=== PATIENT | female | born 1965 | race Two or more races ===

== ENCOUNTER → 2020-08-12 09:06 | Outpatient (BNVA) | payer MEDICAID, SELFPAY | PROVIDERS: PCP Internal Medicine Geriatric Medicine; Referring Provider Internal Medicine Geriatric Medicine; Visit Provider Physician Assistant | DX: Z76.89 Persons encountering health services in other specified circumstances (principal) ==

== ENCOUNTER 2021-03-17 11:41 | Outpatient (REF) | payer MEDICAID, SELFPAY ==
[2021-03-19 13:16] LABS: H Pylori Breath Test NOT DETECTED (NOT DETECTED)
== END 2021-03-17 11:42 | disposition home or self-care (01) ==
LOC: HO.LNP 11:41
PROVIDERS: PCP Internal Medicine Geriatric Medicine; Referring Provider Internal Medicine Geriatric Medicine; Visit Provider Physician Assistant
DX: R12 Heartburn (principal)
CPT/HCPCS: 83013; 99212

== ENCOUNTER 2021-12-07 14:09 | Outpatient (REF) | payer MEDICAID, SELFPAY ==
--- NOTE | ~2021-12-07 | CT_ITS ---
EXAMINATION: CT HEAD WITHOUT CONTRAST CLINICAL INFORMATION: Migraine headaches without aura. COMPARISON: CT scan of the head 12/17/2018. TECHNIQUE: Contiguous axial imaging was performed from the skull base to vertex without intravenous administration of contrast. This CT examination was performed using dose optimization techniques as appropriate, variously including the following: *Automated exposure control *Adjustment of mA and/or kV according to patient size (this includes techniques or standardized protocols for targeted exams where dose is matched to indication/reason for exam; i.e. extremities or head) *Use of iterative reconstruction technique DLP: 750 mGy-cm FINDINGS: There are numerous foci of hypoattenuation within the periventricular white matter that most likely represent a chronic manifestation of small vessel ischemia. Sales-white matter differentiation is otherwise preserved and there is no evidence of acute territorial infarct. There is no intracranial mass effect or midline shift. No abnormal extra-axial collection. Lateral and third ventricles are normal. No hydrocephalus. The calvarium and skull base are intact. Mastoid air cells and middle ear cavities are well aerated. No active paranasal sinus disease. CT/CT head/brain wo con IMPRESSION: There are scattered chronic small vessel ischemic changes within the periventricular white matter. Otherwise unremarkable examination. No evidence acute territorial infarct or hemorrhage.
== END 2021-12-07 14:10 | disposition home or self-care (01) ==
LOC: HO.CT 14:09
PROVIDERS: PCP Internal Medicine Geriatric Medicine; Visit Provider Nurse Practitioner Family
DX: G43.001 Migraine without aura, not intractable, with status migrainosus (principal); I10 Essential (primary) hypertension; I16.0 Hypertensive urgency
CPT/HCPCS: 70450

== ENCOUNTER 2022-02-24 16:02 | Emergency (ER) | payer MEDICAID, SELFPAY ==
--- NOTE | ~2022-02-24 | CT_ITS ---
EXAMINATION: CT HEAD WITHOUT CONTRAST (STROKE PROTOCOL) CLINICAL INFORMATION: Stroke protocol. Right facial droop COMPARISON: Previous head CT scans most recent November 2021 TECHNIQUE: Contiguous axial imaging was performed from the skull base to vertex without intravenous administration of contrast. This CT examination was performed using dose optimization techniques as appropriate, variously including the following: *Automated exposure control *Adjustment of mA and/or kV according to patient size (this includes techniques or standardized protocols for targeted exams where dose is matched to indication/reason for exam; i.e. extremities or head) *Use of iterative reconstruction technique DLP: 742 mGy-cm FINDINGS: There is no evidence of an extra-axial collection. There is no evidence of intra-axial or extra-axial hemorrhage. The ventricles and extra-axial CSF spaces are appropriate. There is mild nonspecific periventricular white matter disease that appears unchanged. No mass, mass effect or acute infarct is seen. Review of bone windows is normal. No skull fracture is seen. Visualized paranasal sinuses, mastoid air cells and middle ears are clear. CT/CT head for stroke IMPRESSION: No acute findings. Mild nonspecific periventricular white matter disease similar to previous exams. This critical result was discussed with Nicolás Chan at 1623 hours on 02/24/2022. It was ascertained that the content and urgency of the report was understood at the time of direct communication.
--- NOTE | ~2022-02-24 | XR_ITS ---
EXAMINATION: XR CHEST CLINICAL INFORMATION: Change in mental status, rule out pneumonia. COMPARISON: 11/11/2019 chest radiographs. TECHNIQUE: Frontal view of the chest was obtained. FINDINGS: No significant abnormality is noted involving the heart, lungs, mediastinum, bony thorax or soft tissues. XR/XR chest 1V IMPRESSION: No acute cardiopulmonary process.
--- NOTE | 2022-02-24 16:07 | ECG_ITS ---
Test Reason : AMS Blood Pressure : / mmHG Vent. Rate : 079 BPM Atrial Rate : 079 BPM P-R Int : 192 ms QRS Dur : 100 ms QT Int : 450 ms P-R-T Axes : 044 007 027 degrees QTc Int : 516 ms Normal sinus rhythm Minimal voltage criteria for LVH, may be normal variant ( R in aVL ) Nonspecific ST abnormality Prolonged QT Abnormal ECG When compared with ECG of 31-DEC-2018 09:48, No significant change was found Referred By: Nicolás Chan Electronically Signed By:Antonio Foster
[2022-02-24 16:16] LABS: Prothrombin Time Whole Bld POC 10.9 sec (11.1-13.5); ~PT, ~INR - Anti Coag Clinic 0.9 (0.9-1.1)
[2022-02-24 16:17] LABS: Glucose, Whole Blood 90 mg/dL (60-115)
[2022-02-24 16:27] LABS: MANUAL DIFF FLAG NO
[2022-02-24 16:28] VITALS: BP 170/92; PULSE 79; RESP 20; O2SAT 98; BMI 27.3
[2022-02-24 16:30] LABS: Basophils Percent Auto 0.5 % (0-2); Eosinophils Absolute Auto 0.2 X10*3/uL (0.0-0.4); Eosinophils Percent Auto 2.3 % (0-4); Hematocrit 34.8 % (37.0-47.0); Hemoglobin 11.6 g/dl (12.0-16.0); Imm Gran Abs Auto 0.05 X10*3/uL (0.00-0.03); Imm Gran Pct Auto 0.8 % (0.0-0.4); Lymphocytes Percent Auto 45.9 % (20-40); Mean Corpuscular HGB Conc 33.3 g/dl (31.0-35.0); Mean Corpuscular Hemoglobin 28.3 pg (27.0-33.0); Mean Corpuscular Volume 84.9 fL (80.0-98.0); Monocytes Absolute Auto 0.6 X10*3/uL (0.1-1.2); Monocytes Percent Auto 8.6 % (2-11); Neutrophils Absolute Auto 2.8 x10*3/uL (2.0-8.3); Neutrophils Percent Auto 41.9 % (45-73); Platelet Count 404 X10*3/uL (160-400); Red Cell Distribution Width 13.4 % (11.0-16.0); White Blood Count 6.5 X10*3/uL (4.8-10.8)
[2022-02-24] MEDS: 0.9 % Sodium Chloride 1,000 ML 999 ML IV (16:35)
[2022-02-24 16:38] LABS: Partial Thromboplastin Time 30.5 SEC (24.1-38.0)
[2022-02-24] MEDS: Dextrose 50 % 25 GM/50 ML SYRINGE IVPUSH (16:38)
[2022-02-24 16:51] LABS: Troponin-I High Sensitivity 4.2 ng/L (<3.5-17.0)
[2022-02-24 16:57] LABS: Alanine Aminotransferase 8 U/L (0-31); Albumin Level 3.9 g/dL (3.5-5.0); Alkaline Phosphatase 163 U/L (39-117); Anion Gap 19 (12-20); Aspartate Amino Transferase 9 U/L (5-31); Bilirubin Total 0.3 mg/dL (0.0-1.0); Blood Urea Nitrogen 14 mg/dL (9-16); Calcium 8.7 mg/dL (8.4-10.2); Carbon Dioxide 22 mmol/L (22-29); Chloride 97 mmol/L (96-108); Creatinine Clr Calc Pharmacy 55.8; Estimated Glomerular Filt Rate 55; Glucose Random 97 mg/dL (60-115); Lipase 32 U/L (8-78); Potassium 2.9 mmol/L (3.3-5.1); Sodium 135 mmol/L (135-145); Total Protein 7.4 g/dL (6.5-8.0)
[2022-02-24 17:04] VITALS: TEMP 37.1
--- NOTE | 2022-02-24 17:08 | PC.NURSE ---
Pt showed significant improvement after half hour of dextrose admin. L sided facial droop now resolved, no continuation of obvious weakness.
[2022-02-24 17:23] LABS: COVID-19 Test Negative (Negative)
[2022-02-24 17:33] LABS: Lactic Acid 2.9 mmol/L (0.5-2.0)
[2022-02-24 17:51] VITALS: BP 144/94; PULSE 83; RESP 15; O2SAT 98
[2022-02-24 17:55] LABS: Glucose, Whole Blood 111 mg/dL (60-115)
--- NOTE | 2022-02-24 18:12 | ED.AMS ---
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 The patient was in her kitchen cooking at around noon and around 15:15 hours the patient was found to be confused. The patient also appeared to have a right facial droop and right arm weakness . The patient's daughter was concerned that the patient was having a stroke and called 911. When the paramedics arrived, the patient had garbled speech and had a right facial droop. The patient had generalized weakness with her right side being weaker than her left. The [facility] providers did check a point of care glucose en route and their glucometer registered ?low . The attempted to give the patient oral glucose and I believe that the patient took half 15 g dose. On presentation to the emergency department the patient was cool, diaphoretic, lethargic, had had generalized weakness. She did have a right facial droop. Point of care glucose in the emergency department was 90. She was given D50 IV with reversal of her weakness , her lethargy and her facial droop. According to the daughter the patient takes Trulicity 75 units on Saturdays and takes Lantus in the morning. The patient did take Lantus 10 units this morning. The patient states she had a very small breakfast and missed lunch. She denied fever, chills, rhinorrhea, sore throat, chest pain, shortness of breath, dyspnea on exertion, cough, abdominal pain, dysuria, urgency. She states that she has frequency often and this is secondary to her diabetes. Related Data Previous Rx's Medication Instructions Recorded omeprazole 20 mg capsule,delayed 20 mg PO DAILY #30 caps 08/12/20 release pantoprazole 20 mg tablet,delayed 20 mg PO QAM #30 tabs 09/21/21 release Allergies Allergy/AdvReac Type Severity Reaction Status Date / Time iron Allergy Mild UNKNOWN Verified 03/17/21 11:47 Iodinated Contrast Media Allergy Unknown UNKNOWN Verified 03/17/21 11:47 [IV Dye, Iodine Containing] iodine [IODINE] Allergy Unknown RASH Verified 03/17/21 11:47 SEAFOOD Allergy Unknown UNKNOWN Uncoded 05/28/20 17:23 Review of Systems Review of Systems: Yes all other systems are reviewed and are negative [facility] Past Medical History [facility] Narrative: Past medical history: Depression, diabetes, GERD. Social history: She denies tobacco, alcohol and drug use. Surgical History H/O colonoscopy History of esophagogastroduodenoscopy (EGD) Hx of cholecystectomy Social History Social History Household Members: Children Alcohol intake: never Patient Tobacco Use Status: Never used Tobacco Use of substances other than those prescribed or required for medical reasons: No Advance Directives: No Advance Directives Information Provided: Yes Current occupational status: disabled Physical Exam ED Vital Signs: Vital Signs - 24 hr 02/24/22 16:28 02/24/22 17:04 02/24/22 17:51 Temperature 98.7 F Pulse Rate 79 83 Respiratory Rate 20 15 Blood Pressure 170/92 H 144/94 H Pulse Oximetry 98 98 Oxygen Delivery Method Room Air Room Air BMI result Body Mass Index 27.3 Const Other: Patient is lethargic, she had garbled speech, she had a right facial droop and generalized weakness of all upper extremity HENMT Head: Yes normal to inspection, Yes normocephalic and Yes atraumatic Ears: external ears normal General nose exam: Normal external nose present Face and sinus: Yes other (Right facial droop) Mouth: Normal oral and palatal mucosa present Throat: Yes posterior oropharynx normal Eyes General: appearance normal, both eyes and all related structures Neck Neck: Yes normal visual inspection, Yes no lymphadenopathy, Yes trachea midline and Yes supple Chest Chest palpation & inspection: normal inspection of the chest and normal palpation of entire chest wall Resp Effort & Inspection: normal respiratory effort and able to speak in complete sentences Auscultation: clear to auscultation bilaterally Cardio Rate: regular rate Rhythm: regular rhythm Heart sounds: S1 normal heart sound present, S2 normal heart sound present and no murmurs GI Inspection: Yes normal to inspection Palpation (GI): Soft to palpation, nontender and no guarding Auscultation: normal bowel sounds General: Yes no CVA tenderness Back/Spine/Pelvis Back: no CVA tenderness Skin General skin exam: no rashes or lesions noted Neuro Other: The patient was initially altered, after close was corrected her cranial nerves 2-12 intact, strength was 5/5 symmetric, cerebellar exam was normal. Extrem General: Yes normal to inspection Course Course Course Narrative: 56-year-old female who presents emergency department for evaluation of altered level of consciousness, right facial droop and weakness. Patient was found to have a low glucose in route by the S crew and was given oral glucose. Her point of care glucose here in the emergency department was 90, she was lethargic, her speech garbled, she had a right facial droop but generalized weakness. She was given D50 25 g IV with complete resolution of her symptoms. CT scan of the patient's brain was unremarkable. Laboratory evaluation did reveal low potassium of 2.9 and a lactate of 2.9. COVID-19 was negative. Patient was given food to eat. She was observed in the emergency department for several hours and her point of care glucose remained above 100. Patient was given potassium chloride 40 mEq orally. Patient was advised to increase her food intake today and have a snack before she goes to bed. She was advised continue her outpatient regimen for insulin and advised to not miss any meals. MDM - Altered Mental Status Lab Data Result diagrams: 02/24/22 16:12 02/24/22 16:12 Labs: Lab Results 02/24/22 02/24/22 02/24/22 Range/Units 16:06 16:12 16:12 WBC 6.5 (4.8-10.8) X10*3/uL RBC 4.10 L (4.20-5.50) X10*6/uL Hgb 11.6 L (12.0-16.0) g/dl Hct 34.8 L (37.0-47.0) % MCV 84.9 (80.0-98.0) fL MCH 28.3 (27.0-33.0) pg MCHC 33.3 (31.0-35.0) g/dl RDW 13.4 (11.0-16.0) % Plt Count 404 H (160-400) X10*3/uL MPV 10.0 (9.4-12.3) fL Immature Gran % (Auto) 0.8 H (0.0-0.4) % Neut % (Auto) 41.9 L (45-73) % Lymph % (Auto) 45.9 H (20-40) % Archuleta % (Auto) 8.6 (2-11) % Eos % (Auto) 2.3 (0-4) % Baso % (Auto) 0.5 (0-2) % Lymph # (Auto) 3.0 (1.2-4.9) X10*3/uL [place]ule[place] # (Auto) 0.6 (0.1-1.2) X10*3/uL Eos # (Auto) 0.2 (0.0-0.4) X10*3/uL Baso # (Auto) 0.0 (0.0-0.2) X10*3/uL Abs Immat Gran (auto) 0.05 H (0.00-0.03) X10*3/uL Absolute Neuts (auto) 2.8 (2.0-8.3) x10*3/uL Absolute Nucleated RBC 0.000 (0.0-0.012) X10*3/uL Nucleated RBC % (auto) 0.0 (0.0-0.2) /100WBC PT (9.9-13.0) SEC Whole Blood PT (11.1-13.5) sec INR (0.9-1.1) Whole Blood INR (0.9-1.1) APTT (24.1-38.0) SEC Sodium 135 (135-145) mmol/L Potassium 2.9 L (3.3-5.1) mmol/L Chloride 97 (96-108) mmol/L Carbon Dioxide 22 (22-29) mmol/L Anion Gap 19 (12-20) BUN 14 (9-16) mg/dL Creatinine 1.03 (0.5-1.4) mg/dL Estim Creat Clear Calc 55.8 Estimated GFR 55 POC Glucose 90 (60-115) mg/dL Random Glucose 97 (60-115) mg/dL Lactic Acid (0.5-2.0) mmol/L Calcium 8.7 (8.4-10.2) mg/dL Total Bilirubin 0.3 (0.0-1.0) mg/dL AST 9 (5-31) U/L ALT 8 (0-31) U/L Alkaline Phosphatase 163 H (39-117) U/L Troponin I High Sens (<3.5-17.0) ng/L Total Protein 7.4 (6.5-8.0) g/dL Albumin 3.9 (3.5-5.0) g/dL Lipase 32 (8-78) U/L COVID-19 (SOLE) (Negative) COVID-19 Clin Com 02/24/22 02/24/22 02/24/22 Range/Units 16:12 16:12 16:12 WBC (4.8-10.8) X10*3/uL RBC (4.20-5.50) X10*6/uL Hgb (12.0-16.0) g/dl Hct (37.0-47.0) % MCV (80.0-98.0) fL MCH (27.0-33.0) pg MCHC (31.0-35.0) g/dl RDW (11.0-16.0) % Plt Count (160-400) X10*3/uL MPV (9.4-12.3) fL Immature Gran % (Auto) (0.0-0.4) % Neut % (Auto) (45-73) % Lymph % (Auto) (20-40) % Archuleta % (Auto) (2-11) % Eos % (Auto) (0-4) % Baso % (Auto) (0-2) % Lymph # (Auto) (1.2-4.9) X10*3/uL [place]ule[place] # (Auto) (0.1-1.2) X10*3/uL Eos # (Auto) (0.0-0.4) X10*3/uL Baso # (Auto) (0.0-0.2) X10*3/uL Abs Immat Gran (auto) (0.00-0.03) X10*3/uL Absolute Neuts (auto) (2.0-8.3) x10*3/uL Absolute Nucleated RBC (0.0-0.012) X10*3/uL Nucleated RBC % (auto) (0.0-0.2) /100WBC PT 11.0 (9.9-13.0) SEC Whole Blood PT 10.9 L (11.1-13.5) sec INR 1.0 (0.9-1.1) Whole Blood INR 0.9 (0.9-1.1) APTT 30.5 (24.1-38.0) SEC Sodium (135-145) mmol/L Potassium (3.3-5.1) mmol/L Chloride (96-108) mmol/L Carbon Dioxide (22-29) mmol/L Anion Gap (12-20) BUN (9-16) mg/dL Creatinine (0.5-1.4) mg/dL Estim Creat Clear Calc Estimated GFR POC Glucose (60-115) mg/dL Random Glucose (60-115) mg/dL Lactic Acid (0.5-2.0) mmol/L Calcium (8.4-10.2) mg/dL Total Bilirubin (0.0-1.0) mg/dL AST (5-31) U/L ALT (0-31) U/L Alkaline Phosphatase (39-117) U/L Troponin I High Sens 4.2 (<3.5-17.0) ng/L Total Protein (6.5-8.0) g/dL Albumin (3.5-5.0) g/dL Lipase (8-78) U/L COVID-19 (SOLE) (Negative) COVID-19 Clin Com 02/24/22 02/24/22 02/24/22 Range/Units 17:00 17:00 17:50 WBC (4.8-10.8) X10*3/uL RBC (4.20-5.50) X10*6/uL Hgb (12.0-16.0) g/dl Hct (37.0-47.0) % MCV (80.0-98.0) fL MCH (27.0-33.0) pg MCHC (31.0-35.0) g/dl RDW (11.0-16.0) % Plt Count (160-400) X10*3/uL MPV (9.4-12.3) fL Immature Gran % (Auto) (0.0-0.4) % Neut % (Auto) (45-73) % Lymph % (Auto) (20-40) % Archuleta % (Auto) (2-11) % Eos % (Auto) (0-4) % Baso % (Auto) (0-2) % Lymph # (Auto) (1.2-4.9) X10*3/uL Archule[place] # (Auto) (0.1-1.2) X10*3/uL Eos # (Auto) (0.0-0.4) X10*3/uL Baso # (Auto) (0.0-0.2) X10*3/uL Abs Immat Gran (auto) (0.00-0.03) X10*3/uL Absolute Neuts (auto) (2.0-8.3) x10*3/uL Absolute Nucleated RBC (0.0-0.012) X10*3/uL Nucleated RBC % (auto) (0.0-0.2) /100WBC PT (9.9-13.0) SEC Whole Blood PT (11.1-13.5) sec INR (0.9-1.1) Whole Blood INR (0.9-1.1) APTT (24.1-38.0) SEC Sodium (135-145) mmol/L Potassium (3.3-5.1) mmol/L Chloride (96-108) mmol/L Carbon Dioxide (22-29) mmol/L Anion Gap (12-20) BUN (9-16) mg/dL Creatinine (0.5-1.4) mg/dL Estim Creat Clear Calc Estimated GFR POC Glucose 111 (60-115) mg/dL Random Glucose (60-115) mg/dL Lactic Acid 2.9 H* (0.5-2.0) mmol/L Calcium (8.4-10.2) mg/dL Total Bilirubin (0.0-1.0) mg/dL AST (5-31) U/L ALT (0-31) U/L Alkaline Phosphatase (39-117) U/L Troponin I High Sens (<3.5-17.0) ng/L Total Protein (6.5-8.0) g/dL Albumin (3.5-5.0) g/dL Lipase (8-78) U/L COVID-19 (SOLE) Negative (Negative) COVID-19 Clin Com See Note Discharge Plan Discharge Clinical Impression: Acute metabolic encephalopathy due to hypoglycemia, Acute hypokalemia Patient Disposition: Home, Self-Care Instructions: Potassium Content of Foods List (ED), Hypokalemia (ED), Hypoglycemia in a Person with Diabetes (ED) Additional Instructions: Your blood work did reveal low potassium. You should eat some high potassium foods over the next several days. When you get home tonight eat a big meal and make sure you eat some food before you go to bed. You can restart your insulin tomorrow but you should check your sugar throughout the day. Follow-up with your doctor in 2 days. Please return to the emergency department if your symptoms get worse or if you develop any symptoms that are concerning to you. Prescriptions: No Action pantoprazole 20 mg tablet,delayed release (DR/EC) 20 mg PO QAM Qty: 30 6RF omeprazole 20 mg capsule,delayed release(DR/EC) 20 mg PO DAILY Qty: 30 5RF Print Language: Malawian
[2022-02-24] MEDS: Potassium Chloride Packet 20 MEQ PACKET 40 MEQ PO (19:03)
[2022-02-24 19:05] LABS: Reflex Lactate? Lactic Acid Added
== END 2022-02-24 19:11 | disposition home or self-care (01) ==
PROVIDERS: Emergency Provider Emergency Medicine Emergency Medical Services; PCP Internal Medicine Geriatric Medicine
DX: E11.649 Type 2 diabetes mellitus with hypoglycemia without coma (principal); G93.41 Metabolic encephalopathy; E87.6 Hypokalemia; Z20.822 Contact with and (suspected) exposure to COVID-19
CPT/HCPCS: 36415; 70450; 71045; 80053; 82947; 83605; 83690; 84484; 85025; 85610; 85730; 87040; 87635; 93005; 96361; 96374; 99284; 99285

== ENCOUNTER → 2022-03-07 13:38 | Outpatient (BNVA) | payer MEDICAID, SELFPAY | PROVIDERS: PCP Internal Medicine Geriatric Medicine; Visit Provider Physician Assistant | DX: R13.10 Dysphagia, unspecified (principal); R12 Heartburn; H92.03 Otalgia, bilateral | CPT/HCPCS: 99212 ==

== ENCOUNTER → 2022-04-21 13:47 | Outpatient (BNVA) | payer MEDICAID, SELFPAY | PROVIDERS: PCP Internal Medicine Geriatric Medicine; Referring Provider Internal Medicine Geriatric Medicine; Visit Provider Physician Assistant | DX: R11.2 Nausea with vomiting, unspecified (principal); R13.10 Dysphagia, unspecified | CPT/HCPCS: 99212 ==

== ENCOUNTER 2022-05-12 10:46 | Day surgery (SDC) | payer MEDICAID, SELFPAY ==
[2022-05-06 11:38] VITALS: BMI 25.5
--- NOTE | 2022-05-11 11:00 | HO.ANESPROP2 ---
Documented by User: Tayler Graves NP 05/11/22 11:06 HPI - Anesthesia Eval Consult details Narrative: 57yo F for Upper Endoscopy [facility] ED 02/2022 for ? stroke, but found to have low blood sugar. Incidental low K. Will recheck DOS. PMFSH Active Problems Active Problems: All Active Problems (Updated 05/06/22 @ 11:28 by Rocio Benitez, RN) Diabetes (Acute) Odynophagia (Acute) Ear ache (Acute) Odynophagia (Acute) Nausea & vomiting (Acute) Depression (Acute) Heartburn (Acute) Past Medical History Medical History Anxiety disorder Asthma Depression Diabetes Dysphagia Elevated cholesterol GERD (gastroesophageal reflux disease) Heartburn HTN (hypertension) Migraines On beta jordyn at home Smoker Surgical History Surgical History H/O colonoscopy History of esophagogastroduodenoscopy (EGD) History of tubal ligation Hx of cholecystectomy Hx of left knee surgery Social History Social History Household Members: Children Alcohol intake: never Patient Tobacco Use Status: Current everyday Tobacco user Tobacco use type: Cigarette Cigarettes Per Day: 6 Patient Interested in Nicotine Replacement: No Patient Given Instructions on How to Stop Smoking: Yes Date Education Initiated: 05/12/22 Second Hand Smoke Exposure: Yes Use of substances other than those prescribed or required for medical reasons: No Are you DNR?: No Advance Directives: No Advance Directives Information Provided: Yes Current occupational status: disabled Meds Allergies Allergy/AdvReac Type Severity Reaction Status Date / Time iron Allergy Mild UNKNOWN Verified 05/06/22 11:06 Iodinated Contrast Media Allergy Unknown UNKNOWN Verified 05/06/22 11:06 [IV Dye, Iodine Containing] iodine [IODINE] Allergy Unknown RASH Verified 05/06/22 11:06 SEAFOOD Allergy Unknown UNKNOWN Uncoded 05/06/22 11:06 Home Medications Medication Instructions Recorded Confirmed Last Taken Type alcohol swabs (Alcohol Prep Pads) 0 pad topical TID 04/21/22 05/06/22 Unknown History amlodipine 5 mg tablet 5 mg PO QPM 04/21/22 05/06/22 Unknown History aspirin 81 mg tablet,delayed 81 mg PO QAM 04/21/22 05/06/22 Unknown History release atorvastatin 20 mg tablet 20 mg PO BEDTIME 04/21/22 05/06/22 Unknown History benztropine 0.5 mg tablet 0.5 mg PO BID 04/21/22 05/06/22 Unknown History bupropion HCl 150 mg 24 hr tablet, 150 mg PO QAM 04/21/22 05/06/22 Unknown History extended release dulaglutide 1.5 mg/0.5 mL mg subcut QWEEK 04/21/22 04/21/22 Unknown History subcutaneous pen injector (Trulicity) fluoxetine 10 mg capsule 10 mg PO QAM 04/21/22 05/06/22 Unknown History fluticasone propionate 50 2 spray intranasal DAILY 04/21/22 05/06/22 Unknown History mcg/actuation nasal spray,suspension insulin syringe-needle U-100 0.5 #10 ea 04/21/22 04/21/22 Unknown History mL 30 gauge x 1/2 (UltiCare) losartan 50 mg tablet 50 mg PO QPM 04/21/22 05/06/22 Unknown History metformin 1,000 mg tablet 1,000 mg PO BID 04/21/22 05/06/22 Unknown History metoprolol succinate 50 mg 50 mg PO QAM 04/21/22 05/06/22 Unknown History tablet,extended release 24 hr mirtazapine 7.5 mg tablet 7.5 mg PO BEDTIME 04/21/22 05/06/22 Unknown History prazosin 2 mg capsule 2 mg PO BID 04/21/22 05/06/22 Unknown History ergocalciferol (vitamin D2) 1,250 1 cap PO QWEEK 05/06/22 05/06/22 Unknown History mcg (50,000 unit) capsule haloperidol 5 mg tablet 1 tab PO BID 05/06/22 05/06/22 Unknown History insulin glargine 100 unit/mL 10 unit subcut BEDTIME 05/06/22 05/06/22 Unknown History subcutaneous solution (Lantus U-100 Insulin) nicotine 14 mg/24 hr daily topical 05/06/22 Unknown History transdermal patch pantoprazole 20 mg tablet,delayed 20 mg PO DAILY 05/06/22 05/06/22 Unknown History release Exam Exam Date and Time: May 11, 2022 1100 Height,Weight and Vital Signs: Height 5 ft 4 in Weight 67.585 kg Pertinent Lab Results Pertinent Lab Results: Laboratory Tests 02/24/22 16:12 WBC 6.5 Hgb 11.6 L Hct 34.8 L Plt Count 404 H Laboratory Tests 02/24/22 16:12 BUN 14 Creatinine 1.03 Narrative Narrative: EKG 02/2022 Vent. Rate : 079 BPM ? ? Atrial Rate : 079 BPM ?? P-R Int : 192 ms? QRS Dur : 100 ms ? ? QT Int : 450 ms ? ? ? P-R-T Axes : 044 007 027 degrees ?? QTc Int : 516 ms ? Normal sinus rhythm Minimal voltage criteria for LVH, may be normal variant ( R in aVL ) Nonspecific ST abnormality Prolonged QT Abnormal ECG When compared with ECG of 31-DEC-2018 09:48, No significant change was found Assessment and Plan Assessment Anesthesia Assessment: Chart Reviewed Documented by User: Isaac Beckwith MD 05/12/22 13:34 PMF Past Medical History Medical History Anxiety disorder Asthma Depression Diabetes Dysphagia Elevated cholesterol GERD (gastroesophageal reflux disease) Heartburn HTN (hypertension) Migraines On beta jordyn at home Smoker Family History Family history of problems with anesthesia: No Surgical History Surgical History H/O colonoscopy History of esophagogastroduodenoscopy (EGD) History of tubal ligation Hx of cholecystectomy Hx of left knee surgery History of Problems with Anesthesia: No Social History Social History Household Members: Children Alcohol intake: never Patient Tobacco Use Status: Current everyday Tobacco user Tobacco use type: Cigarette Cigarettes Per Day: 6 Patient Interested in Nicotine Replacement: No Patient Given Instructions on How to Stop Smoking: Yes Date Education Initiated: 05/12/22 Second Hand Smoke Exposure: Yes Use of substances other than those prescribed or required for medical reasons: No Are you DNR?: No Advance Directives: No Advance Directives Information Provided: Yes Current occupational status: disabled Meds Allergies Allergy/AdvReac Type Severity Reaction Status Date / Time iron Allergy Mild UNKNOWN Verified 05/06/22 11:06 Iodinated Contrast Media Allergy Unknown UNKNOWN Verified 05/06/22 11:06 [IV Dye, Iodine Containing] iodine [IODINE] Allergy Unknown RASH Verified 05/06/22 11:06 SEAFOOD Allergy Unknown UNKNOWN Uncoded 05/06/22 11:06 Home Medications Medication Instructions Recorded Confirmed Last Taken Type alcohol swabs (Alcohol Prep Pads) 0 pad topical TID 04/21/22 05/06/22 Unknown History amlodipine 5 mg tablet 5 mg PO QPM 04/21/22 05/06/22 Unknown History aspirin 81 mg tablet,delayed 81 mg PO QAM 04/21/22 05/06/22 Unknown History release atorvastatin 20 mg tablet 20 mg PO BEDTIME 04/21/22 05/06/22 Unknown History benztropine 0.5 mg tablet 0.5 mg PO BID 04/21/22 05/06/22 Unknown History bupropion HCl 150 mg 24 hr tablet, 150 mg PO QAM 04/21/22 05/06/22 Unknown History extended release dulaglutide 1.5 mg/0.5 mL mg subcut QWEEK 04/21/22 04/21/22 Unknown History subcutaneous pen injector (Trulicity) fluoxetine 10 mg capsule 10 mg PO QAM 04/21/22 05/06/22 Unknown History fluticasone propionate 50 2 spray intranasal DAILY 04/21/22 05/06/22 Unknown History mcg/actuation nasal spray,suspension insulin syringe-needle U-100 0.5 #10 ea 04/21/22 04/21/22 Unknown History mL 30 gauge x 1/2 (UltiCare) losartan 50 mg tablet 50 mg PO QPM 04/21/22 05/06/22 Unknown History metformin 1,000 mg tablet 1,000 mg PO BID 04/21/22 05/06/22 Unknown History metoprolol succinate 50 mg 50 mg PO QAM 04/21/22 05/06/22 Unknown History tablet,extended release 24 hr mirtazapine 7.5 mg tablet 7.5 mg PO BEDTIME 04/21/22 05/06/22 Unknown History prazosin 2 mg capsule 2 mg PO BID 04/21/22 05/06/22 Unknown History ergocalciferol (vitamin D2) 1,250 1 cap PO QWEEK 05/06/22 05/06/22 Unknown History mcg (50,000 unit) capsule haloperidol 5 mg tablet 1 tab PO BID 05/06/22 05/06/22 Unknown History insulin glargine 100 unit/mL 10 unit subcut BEDTIME 05/06/22 05/06/22 Unknown History subcutaneous solution (Lantus U-100 Insulin) nicotine 14 mg/24 hr daily topical 05/06/22 Unknown History transdermal patch pantoprazole 20 mg tablet,delayed 20 mg PO DAILY 05/06/22 05/06/22 Unknown History release Exam Airway Mallampati Class: III TM Dist: >3cm Neck ROM: Full Denture: Upper Loose/Missing/Broken Teeth: Yes Assessment and Plan Assessment Anesthesia Assessment: Anesthesia Plan Discussed Final Anesthetic Review Family History of Problems with Anesthesia: No History of Problems with Anesthesia: No NPO: Yes ASA Class: III Final Preanesthetic Review: No Changes in Pt Med Stat, Meds/Allgs Chart Reviewed, Consent Obtained/Reviewed and Anes Risks/Benef Reviewed Patient Risk: Intermediate Procedure Risk: Low Anesthetic Plan Anesthetic Plan: MAC: Disposition: Standard PACU
[2022-05-12 11:14] VITALS: BP 114/73; PULSE 75; RESP 18; TEMP 36.2; O2SAT 95; BMI 25.0
[2022-05-12 11:25] VITALS: BMI 25.0
[2022-05-12 11:39] LABS: Anion Gap 18 (12-20); Carbon Dioxide 31 mmol/L (22-29); Chloride 93 mmol/L (96-108); Potassium 3.1 mmol/L (3.3-5.1); Sodium 139 mmol/L (135-145)
[2022-05-12] MEDS: Lactated Ringers 1,000 ML 100 ML IVCONT (11:44)
[2022-05-12 11:51] LABS: Glucose, Whole Blood 108 mg/dL (60-115)
--- NOTE | 2022-05-12 13:07 | MHC.SHP ---
Pre-Procedural Eval Section A Date of Service: 05/12/22 The History & Physical has been completed within 30 days and I have reviewed it.: Yes Section B Chief Complaint: Nausea with vomiting, Allergies: Allergies Allergy/AdvReac Type Severity Reaction Status Date / Time iron Allergy Mild UNKNOWN Verified 05/06/22 11:06 Iodinated Contrast Media Allergy Unknown UNKNOWN Verified 05/06/22 11:06 [IV Dye, Iodine Containing] iodine [IODINE] Allergy Unknown RASH Verified 05/06/22 11:06 SEAFOOD Allergy Unknown UNKNOWN Uncoded 05/06/22 11:06 Plan Diagnosis/Plan: Unchanged I have reviewed the history and physical and performed a pertinent physical examination on my patient. No changes have occurred unless specified.
--- NOTE | 2022-05-12 13:08 | W.PM.OPN ---
Operative Note Operative Note Date of Service: 05/12/22 Narrative: Procedure Date: Procedure: Esophagogastroduodenoscopy Endoscopist: Estella Wheeler MD Indication: Dysphagia Anesthesia Provider: Dr Isaac Beckwith Anesthesia Type: MAC ?? EGD Procedure:?? The procedure, indications, preparation and potential complications were reviewed with the patient, who indicated understanding and gave written informed consent to proceed. fire apparatus engineer assisted with the consent. A physical exam was performed. The endoscope was introduced through the mouth, and advanced to the second part of duodenum. The mucosa was carefully examined on slow withdrawal of the endoscope. The patient tolerated the procedure well. There were no immediate complications.? ? EGD Findings:?Esophagus:? Erythema and linear ulcerations without stigmata of recent bleeding were noted starting at 25 cm extending to the GEJ at 36 cm. The Z line was at 36 cm. Cold forceps biopsies were taken. ?Stomach:? Atrophic mucosa was noted in the cardia and fundus of the stomach. Erythema and congestion was noted in the antrum. Random gastric biopsies were taken to rule out H Pylori infection. ?Duodenum:? 1.5 cm sessile duodenal polyp was noted in the duodenal bulb. Cold forceps biopsies were taken. ? EGD Impressions:?Grade C esophagitis (biopsy) ?Atrophic gastritis (biopsy) ?Duodenal polyp (biopsy) ?? Recommendations:?Follow biopsy results. Our office will call or send a letter with results within 7-10 days. ?Increase pantoprazole to 40mg BID for at least 8 weeks. ?If H pylori +, patient will be prescribed eradication therapy followed by test of cure. ?Avoid NSAIDs. ?Above has been reviewed with the patient and her daughter. Educational hand outs were provided at discharge. ?
[2022-05-12 13:35] VITALS: BP 103/58; PULSE 84; RESP 18; TEMP 36.2; O2SAT 100
[2022-05-12 13:50] VITALS: BP 168/94; PULSE 80; RESP 14; TEMP 36.1; O2SAT 100
[2022-05-12 14:05] VITALS: BP 170/90; PULSE 80; RESP 14; O2SAT 99
[2022-05-12 14:20] VITALS: BP 166/87; PULSE 80; RESP 20; TEMP 36.1; O2SAT 99
== END 2022-05-12 15:17 ==
LOC: HO.SSS 10:46
PROVIDERS: Nurse Practitioner; PCP Internal Medicine Geriatric Medicine; Visit Provider Internal Medicine
PROC: 0DJ08ZZ Inspection of Upper Intestinal Tract, Via Natural or Artificial Opening Endoscopic (ICD-10-PCS; CPT 43235; principal; 2022-05-12 12:00)
DX: K29.40 Chronic atrophic gastritis without bleeding (principal); K31.7 Polyp of stomach and duodenum; K20.80 Other esophagitis without bleeding; K21.9 Gastro-esophageal reflux disease without esophagitis; F32.A Depression, unspecified; I10 Essential (primary) hypertension; J45.909 Unspecified asthma, uncomplicated; E11.9 Type 2 diabetes mellitus without complications; Z79.4 Long term (current) use of insulin; Z79.899 Other long term (current) drug therapy; Z79.51 Long term (current) use of inhaled steroids; Z79.82 Long term (current) use of aspirin; Z88.8 Allergy status to other drugs, medicaments and biological substances; Z91.041 Radiographic dye allergy status; F17.210 Nicotine dependence, cigarettes, uncomplicated
CPT/HCPCS: 43239; 36415; 80051; 82947; 88305; 88342

== ENCOUNTER → 2022-08-08 08:20 | Outpatient (BNVA) | payer MEDICAID, SELFPAY | PROVIDERS: PCP Internal Medicine Geriatric Medicine; Visit Provider Physician Assistant | DX: K20.90 Esophagitis, unspecified without bleeding (principal); R11.2 Nausea with vomiting, unspecified; R68.81 Early satiety; E11.9 Type 2 diabetes mellitus without complications; R12 Heartburn | CPT/HCPCS: 99212 ==

== ENCOUNTER → 2022-08-29 09:47 | Outpatient (BNVA) | payer MEDICAID, SELFPAY | PROVIDERS: PCP Internal Medicine Geriatric Medicine; Visit Provider Physician Assistant | DX: R13.10 Dysphagia, unspecified (principal); R68.81 Early satiety | CPT/HCPCS: 99212 ==

== ENCOUNTER 2022-09-01 11:25 | Day surgery (SDC) | payer MEDICAID, SELFPAY ==
--- NOTE | 2022-08-31 13:29 | HO.ANESPROP2 ---
Documented by User: Tayler Graves NP 08/31/22 13:30 HPI - Anesthesia Eval Consult details Narrative: 57yo F for Upper Endoscopy and Colonoscopy s/p EGD 05/2022 with MAC [facility] Active Problems Active Problems: All Active Problems (Updated 08/29/22 @ 12:18 by Lucy Frias PA-C) Early satiety (Acute) Esophagitis (Acute) Diabetes (Acute) Odynophagia (Acute) Ear ache (Acute) Odynophagia (Acute) Nausea & vomiting (Acute) Depression (Acute) Heartburn (Acute) Past Medical History Medical History Anxiety disorder Asthma Depression Diabetes Dysphagia Elevated cholesterol GERD (gastroesophageal reflux disease) Heartburn HTN (hypertension) Migraines On beta jordyn at home Smoker Family History Family history of problems with anesthesia: No Surgical History Surgical History H/O colonoscopy History of esophagogastroduodenoscopy (EGD) History of tubal ligation Hx of cholecystectomy Hx of left knee surgery History of Problems with Anesthesia: No Social History Social History Household Members: Children Alcohol intake: never Patient Tobacco Use Status: Current everyday Tobacco user Tobacco use type: Cigarette Cigarettes Per Day: 8 Second Hand Smoke Exposure: Yes Use of substances other than those prescribed or required for medical reasons: No Are you DNR?: No Advance Directives: No Advance Directives Information Provided: Yes Current occupational status: disabled Meds Allergies Allergy/AdvReac Type Severity Reaction Status Date / Time iron Allergy Mild UNKNOWN Verified 08/29/22 09:49 Iodinated Contrast Media Allergy Unknown UNKNOWN Verified 08/29/22 09:49 [IV Dye, Iodine Containing] iodine [IODINE] Allergy Unknown RASH Verified 08/29/22 09:49 SEAFOOD Allergy Unknown UNKNOWN Uncoded 05/06/22 11:06 Home Medications Medication Instructions Recorded Confirmed Last Taken Type alcohol swabs (Alcohol Prep Pads) 0 pad topical TID 04/21/22 08/29/22 Unknown History amlodipine 5 mg tablet 5 mg PO QPM 04/21/22 08/29/22 Unknown History aspirin 81 mg tablet,delayed 81 mg PO QAM 04/21/22 08/29/22 Unknown History release atorvastatin 20 mg tablet 20 mg PO BEDTIME 04/21/22 08/29/22 Unknown History benztropine 0.5 mg tablet 0.5 mg PO BID 04/21/22 08/29/22 Unknown History bupropion HCl 150 mg 24 hr tablet, 150 mg PO QAM 04/21/22 08/29/22 Unknown History extended release dulaglutide 1.5 mg/0.5 mL mg subcut QWEEK 04/21/22 08/29/22 Unknown History subcutaneous pen injector (Trulicity) fluoxetine 10 mg capsule 10 mg PO QAM 04/21/22 08/29/22 Unknown History fluticasone propionate 50 2 spray intranasal DAILY 04/21/22 08/29/22 Unknown History mcg/actuation nasal spray,suspension insulin syringe-needle U-100 0.5 #10 ea 04/21/22 08/29/22 Unknown History mL 30 gauge x 1/2 (UltiCare) losartan 50 mg tablet 50 mg PO QPM 04/21/22 08/29/22 Unknown History metformin 1,000 mg tablet 1,000 mg PO BID 04/21/22 08/29/22 Unknown History metoprolol succinate 50 mg 50 mg PO QAM 04/21/22 08/29/22 Unknown History tablet,extended release 24 hr mirtazapine 7.5 mg tablet 7.5 mg PO BEDTIME 04/21/22 08/29/22 Unknown History prazosin 2 mg capsule 2 mg PO BID 04/21/22 08/29/22 Unknown History ergocalciferol (vitamin D2) 1,250 1 cap PO QWEEK 05/06/22 08/29/22 Unknown History mcg (50,000 unit) capsule haloperidol 5 mg tablet 1 tab PO BID 05/06/22 08/29/22 Unknown History nicotine 14 mg/24 hr daily topical 05/06/22 08/29/22 Unknown History transdermal patch Exam Exam Date and Time: August 31, 2022 1329 Pertinent Lab Results Pertinent Lab Results: Laboratory Tests 02/24/22 16:12 WBC 6.5 Hgb 11.6 L Hct 34.8 L Plt Count 404 H Laboratory Tests 02/24/22 16:12 BUN 14 Creatinine 1.03 Narrative Narrative: EKG 02/2022 Vent. Rate : 079 BPM ? ? Atrial Rate : 079 BPM ?? P-R Int : 192 ms? QRS Dur : 100 ms ? ? QT Int : 450 ms ? ? ? P-R-T Axes : 044 007 027 degrees ?? QTc Int : 516 ms ? Normal sinus rhythm Minimal voltage criteria for LVH, may be normal variant ( R in aVL ) Nonspecific ST abnormality Prolonged QT Abnormal ECG When compared with ECG of 31-DEC-2018 09:48, No significant change was found Assessment and Plan Assessment Anesthesia Assessment: Chart Reviewed Final Anesthetic Review Family History of Problems with Anesthesia: No History of Problems with Anesthesia: No Documented by User: Ashish Crump MD 09/01/22 14:34 PMF Past Medical History Medical History Anxiety disorder Asthma Depression Diabetes Dysphagia Elevated cholesterol GERD (gastroesophageal reflux disease) Heartburn HTN (hypertension) Migraines On beta jordyn at home Smoker Surgical History Surgical History H/O colonoscopy History of esophagogastroduodenoscopy (EGD) History of tubal ligation Hx of cholecystectomy Hx of left knee surgery Social History Social History Household Members: Children Alcohol intake: never Patient Tobacco Use Status: Current everyday Tobacco user Tobacco use type: Cigarette Cigarettes Per Day: 8 Second Hand Smoke Exposure: Yes Use of substances other than those prescribed or required for medical reasons: No Are you DNR?: No Advance Directives: No Advance Directives Information Provided: Yes Current occupational status: disabled Meds Allergies Allergy/AdvReac Type Severity Reaction Status Date / Time iron Allergy Mild UNKNOWN Verified 08/29/22 09:49 Iodinated Contrast Media Allergy Unknown UNKNOWN Verified 08/29/22 09:49 [IV Dye, Iodine Containing] iodine [IODINE] Allergy Unknown RASH Verified 08/29/22 09:49 SEAFOOD Allergy Unknown UNKNOWN Uncoded 05/06/22 11:06 Home Medications Medication Instructions Recorded Confirmed Last Taken Type alcohol swabs (Alcohol Prep Pads) 0 pad topical TID 04/21/22 08/29/22 Unknown History amlodipine 5 mg tablet 5 mg PO QPM 04/21/22 08/29/22 Unknown History aspirin 81 mg tablet,delayed 81 mg PO QAM 04/21/22 08/29/22 Unknown History release atorvastatin 20 mg tablet 20 mg PO BEDTIME 04/21/22 08/29/22 Unknown History benztropine 0.5 mg tablet 0.5 mg PO BID 04/21/22 08/29/22 Unknown History bupropion HCl 150 mg 24 hr tablet, 150 mg PO QAM 04/21/22 08/29/22 Unknown History extended release dulaglutide 1.5 mg/0.5 mL mg subcut QWEEK 04/21/22 08/29/22 Unknown History subcutaneous pen injector (Trulicity) fluoxetine 10 mg capsule 10 mg PO QAM 04/21/22 08/29/22 Unknown History fluticasone propionate 50 2 spray intranasal DAILY 04/21/22 08/29/22 Unknown History mcg/actuation nasal spray,suspension insulin syringe-needle U-100 0.5 #10 ea 04/21/22 08/29/22 Unknown History mL 30 gauge x 1/2 (UltiCare) losartan 50 mg tablet 50 mg PO QPM 04/21/22 08/29/22 Unknown History metformin 1,000 mg tablet 1,000 mg PO BID 04/21/22 08/29/22 Unknown History metoprolol succinate 50 mg 50 mg PO QAM 04/21/22 08/29/22 Unknown History tablet,extended release 24 hr mirtazapine 7.5 mg tablet 7.5 mg PO BEDTIME 04/21/22 08/29/22 Unknown History prazosin 2 mg capsule 2 mg PO BID 04/21/22 08/29/22 Unknown History ergocalciferol (vitamin D2) 1,250 1 cap PO QWEEK 05/06/22 08/29/22 Unknown History mcg (50,000 unit) capsule haloperidol 5 mg tablet 1 tab PO BID 05/06/22 08/29/22 Unknown History nicotine 14 mg/24 hr daily topical 05/06/22 08/29/22 Unknown History transdermal patch Exam Airway Mallampati Class: III Denture: Upper Loose/Missing/Broken Teeth: Yes (loose front lower ) Heart: S1,S2 Lungs: b/l breath sounds Assessment and Plan Assessment Anesthesia Assessment: Anesthesia Plan Discussed Final Anesthetic Review NPO: Yes ASA Class: III Final Preanesthetic Review: Meds/Allgs Chart Reviewed, Consent Obtained/Reviewed and Anes Risks/Benef Reviewed Patient Risk: Intermediate Procedure Risk: Intermediate Anesthetic Plan Anesthetic Plan: MAC: Disposition: Standard PACU
[2022-09-01 11:55] VITALS: BMI 23.0
[2022-09-01 12:10] LABS: Glucose, Whole Blood 111 mg/dL (60-115)
[2022-09-01 12:11] VITALS: BP 157/94; PULSE 88; RESP 16; TEMP 36.4; O2SAT 100
[2022-09-01 12:48] LABS: Anion Gap 14 (12-20); Carbon Dioxide 21 mmol/L (22-29); Chloride 105 mmol/L (96-108); Potassium 3.6 mmol/L (3.3-5.1); Sodium 136 mmol/L (135-145)
--- NOTE | 2022-09-01 13:28 | MHC.SHP ---
Pre-Procedural Eval Section A Date of Service: 09/01/22 Section B Chief Complaint: Nausea with vomiting, unspecified Details of Present Illness: dysphagia Relevant Family History (Specify if Yes): No Relevant Social History: Tobacco Use Present Medications: see Short Stay Collaborative assessment Medical History: Significant History (Anxiety disorder Asthma Depression Diabetes Dysphagia Elevated cholesterol GERD (gastroesophageal reflux disease) Heartburn HTN (hypertension) Migraines On beta jordyn at home Smoker) History of Previous Operations: Relevant previous surgery/procedure and date(s) (H/O colonoscopy History of esophagogastroduodenoscopy (EGD) History of tubal ligation Hx of cholecystectomy Hx of left knee surgery) Allergies: Allergies Allergy/AdvReac Type Severity Reaction Status Date / Time iron Allergy Mild UNKNOWN Verified 08/29/22 09:49 Iodinated Contrast Media Allergy Unknown UNKNOWN Verified 08/29/22 09:49 [IV Dye, Iodine Containing] iodine [IODINE] Allergy Unknown RASH Verified 08/29/22 09:49 SEAFOOD Allergy Unknown UNKNOWN Uncoded 05/06/22 11:06 Review of Systems Sugical H&P ROS: Negative: Constitution, Cardiovascular, Respiratory, Neurological, Psychiatric, Hem-Onc, Allergic/Immunologic, Gastrointestinal, Genitourinary, Musculoskeletal, Integumentary, Endocrine and Eyes/Ears/Nose/Throat Exam Surgical H&P Exam: Normal: HEENT, Normal: Heart, Normal: Lungs, Normal: Extremities, Normal: Abdomen, Normal: Skin and Normal: Neurological Plan Diagnosis/Plan: Unchanged I have reviewed the history and physical and performed a pertinent physical examination on my patient. No changes have occurred unless specified. Time Spent With Patient Time: Total time managing care of this patient today ____ minutes.
--- NOTE | 2022-09-01 13:30 | W.PM.OPN ---
Operative Note Operative Note Date of Service: 09/01/22 Narrative: Procedure Description: EGD Indication: dysphagia Anesthesia: MAC FLEXIBLE TRANSORAL UPPER GASTROINTESTINAL ENDOSCOPY UPPER ENDOSCOPY Consent: Indications for the procedure and potential complications of bleeding, perforation, reaction to medications and missed diagnosis were discussed with the patient and informed consent was obtained. Instrument: Olympus GIF H 190 J mid size upper endoscope Monitoring: Vital signs and clinical assessment, continuous EKG monitoring, Pulse oximetry, Carbon Dioxide monitoring and blood pressure monitoring were done throughout the procedure. Procedure: The patient was placed in the left lateral decubitis position and pre-procedure medications were administered and a bite block was placed. The endoscope was inserted into the mouth and advanced under direct vision to the third part of duodenum. A careful inspection was made as the upper endoscope was withdrawn including a retroflexed examination of the proximal stomach; Findings and interventions are described below. Findings: Larynx:normal Esophagus: GE junction at 33 cm, diaphragm hiatus at 35 cm, consistent with 2 cm sliding hiatal hernia. Erosive esophagitis noted in distal esophagus LA grade C with schatzki ring. Balloon dilation done to 19 mm at LES with tear seen and at UES to 18 mm with no tear seen. Bx taken from distal esophagus and GEJ. Stomach: Patchy streaky gastric erythema at antrum,. Biopsies were obtained. Grade 2 flap valve on retroflexed examination of the cardia. Duodenum: duodenitis with denuded mucosa, bx taken Intervention: Biopsies as noted above Impression/Findings: esophageal stricture schatzki ring hiatal herna gastritis duodenitis PLAN: await bx smoking cessation if h pylori pos then treat
[2022-09-01 14:14] VITALS: BP 116/65; PULSE 98; RESP 16; TEMP 36.4; O2SAT 100
[2022-09-01 14:24] LABS: Glucose, Whole Blood 91 mg/dL (60-115)
[2022-09-01 14:26] VITALS: BP 146/81; PULSE 96; RESP 188; O2SAT 100
[2022-09-01 14:42] VITALS: BP 170/87; PULSE 96; RESP 18; TEMP 36.4; O2SAT 100
== END 2022-09-01 14:55 | disposition home or self-care (01) ==
PROVIDERS: Nurse Practitioner; PCP Internal Medicine Geriatric Medicine; Visit Provider Internal Medicine Gastroenterology
PROC: 0DJ08ZZ Inspection of Upper Intestinal Tract, Via Natural or Artificial Opening Endoscopic (ICD-10-PCS; CPT 43235; principal; 2022-09-01 14:50)
DX: R13.10 Dysphagia, unspecified (principal); K22.2 Esophageal obstruction; K20.80 Other esophagitis without bleeding; K29.50 Unspecified chronic gastritis without bleeding; K29.80 Duodenitis without bleeding; K21.9 Gastro-esophageal reflux disease without esophagitis; K44.9 Diaphragmatic hernia without obstruction or gangrene; J45.909 Unspecified asthma, uncomplicated; I10 Essential (primary) hypertension; E78.00 Pure hypercholesterolemia, unspecified; E11.9 Type 2 diabetes mellitus without complications; Z79.85 Long-term (current) use of injectable non-insulin antidiabetic drugs; Z79.899 Other long term (current) drug therapy; Z79.82 Long term (current) use of aspirin; Z88.8 Allergy status to other drugs, medicaments and biological substances; Z91.041 Radiographic dye allergy status; F17.210 Nicotine dependence, cigarettes, uncomplicated; Z79.51 Long term (current) use of inhaled steroids
CPT/HCPCS: 43249; 43239; 36415; 80051; 82947; 88305; 88342; C1726

== ENCOUNTER 2022-09-27 16:15 | Emergency (ER) | payer MEDICAID, SELFPAY ==
--- NOTE | ~2022-09-27 | XR_ITS ---
EXAMINATION: XR CHEST CLINICAL INFORMATION: Cough COMPARISON: 02/24/2022 TECHNIQUE: Frontal view of the chest was obtained. FINDINGS: No significant abnormality is noted involving the heart, lungs, mediastinum, bony thorax or soft tissues. XR/XR chest 1V IMPRESSION: Unremarkable examination.
--- NOTE | 2022-09-27 16:52 | ECG_ITS ---
Test Reason : WEAKNESS Blood Pressure : / mmHG Vent. Rate : 080 BPM Atrial Rate : 080 BPM P-R Int : 170 ms QRS Dur : 090 ms QT Int : 422 ms P-R-T Axes : 045 036 059 degrees QTc Int : 486 ms Normal sinus rhythm Prolonged QT Abnormal ECG When compared with ECG of 24-FEB-2022 16:19, Non-specific change in ST segment in Inferior leads Nonspecific T wave abnormality no longer evident in Inferior leads Nonspecific T wave abnormality, improved in Anterior leads Referred By: Robin Poe Electronically Signed By:MAGGI PRINCE MD
[2022-09-27 17:06] VITALS: BP 100/66; PULSE 93; TEMP 36.4; O2SAT 100; BMI 22.8
[2022-09-27 17:51] LABS: MANUAL DIFF FLAG NO
[2022-09-27 17:53] LABS: Basophils Percent Auto 0.5 % (0-2); Eosinophils Absolute Auto 0.1 X10*3/uL (0.0-0.4); Eosinophils Percent Auto 1.9 % (0-4); Hematocrit 32.3 % (37.0-47.0); Imm Gran Abs Auto 0.07 X10*3/uL (0.00-0.03); Imm Gran Pct Auto 1.1 % (0.0-0.4); Lymphocytes Absolute Auto 1.7 X10*3/uL (1.2-4.9); Lymphocytes Percent Auto 27.2 % (20-40); Mean Corpuscular HGB Conc 34.1 g/dl (31.0-35.0); Mean Corpuscular Hemoglobin 29.5 pg (27.0-33.0); Mean Corpuscular Volume 86.6 fL (80.0-98.0); Mean Platelet Volume 9.8 fL (9.4-12.3); Monocytes Absolute Auto 0.3 X10*3/uL (0.1-1.2); Neutrophils Absolute Auto 4.1 x10*3/uL (2.0-8.3); Neutrophils Percent Auto 64.3 % (45-73); Platelet Count 332 X10*3/uL (160-400); Red Blood Count 3.73 X10*6/uL (4.20-5.50); Red Cell Distribution Width 13.2 % (11.0-16.0); White Blood Count 6.4 X10*3/uL (4.8-10.8)
[2022-09-27 18:06] LABS: Alanine Aminotransferase 8 U/L (0-31); Albumin Level 3.9 g/dL (3.5-5.0); Alkaline Phosphatase 116 U/L (39-117); Anion Gap 17 (12-20); Aspartate Amino Transferase 9 U/L (5-31); Bilirubin Total 0.2 mg/dL (0.0-1.0); Blood Urea Nitrogen 15 mg/dL (9-16); Calcium 9.9 mg/dL (8.4-10.2); Carbon Dioxide 22 mmol/L (22-29); Chloride 96 mmol/L (96-108); Creatinine Clr Calc Pharmacy 31.9; Estimated Glomerular Filt Rate 34; Glucose Random 132 mg/dL (60-115); Magnesium 1.6 mg/dL (1.6-2.6); Potassium 4.4 mmol/L (3.3-5.1); Sodium 131 mmol/L (135-145); Total Protein 7.2 g/dL (6.5-8.0)
--- NOTE | 2022-09-27 18:27 | ED_ITS ---
HPI - General Adult General Chief complaint: General Medical Stated complaint: WEAKNESS,LETHARGY Time Seen by Provider: 09/27/22 16:35 Source: patient and family Mode of arrival: EMS Limitations: no limitations History of Present Illness HPI narrative: Patient diabetic was in her usual health earlier today was feeling weak and tired family thought about hypoglycemia and give her lollipop and candy when EMS came blood sugar was 177 and patient was more alert but still feeling weak patient not been eating well for last few days as does not have any appetite denies any urinary complaints no fever or chills no cough or shortness no abdominal pain Related Data Home Medications Medication Instructions Recorded Confirmed alcohol swabs (Alcohol Prep Pads) 0 pad topical TID 04/21/22 08/29/22 amlodipine 5 mg tablet 5 mg PO QPM 04/21/22 08/29/22 aspirin 81 mg tablet,delayed 81 mg PO QAM 04/21/22 08/29/22 release atorvastatin 20 mg tablet 20 mg PO BEDTIME 04/21/22 08/29/22 benztropine 0.5 mg tablet 0.5 mg PO BID 04/21/22 08/29/22 bupropion HCl 150 mg 24 hr tablet, 150 mg PO QAM 04/21/22 08/29/22 extended release dulaglutide 1.5 mg/0.5 mL mg subcut QWEEK 04/21/22 08/29/22 subcutaneous pen injector (Trulicity) fluoxetine 10 mg capsule 10 mg PO QAM 04/21/22 08/29/22 fluticasone propionate 50 2 spray intranasal DAILY 04/21/22 08/29/22 mcg/actuation nasal spray,suspension insulin syringe-needle U-100 0.5 #10 ea 04/21/22 08/29/22 mL 30 gauge x 1/2 (UltiCare) losartan 50 mg tablet 50 mg PO QPM 04/21/22 08/29/22 metformin 1,000 mg tablet 1,000 mg PO BID 04/21/22 08/29/22 metoprolol succinate 50 mg 50 mg PO QAM 04/21/22 08/29/22 tablet,extended release 24 hr mirtazapine 7.5 mg tablet 7.5 mg PO BEDTIME 04/21/22 08/29/22 prazosin 2 mg capsule 2 mg PO BID 04/21/22 08/29/22 ergocalciferol (vitamin D2) 1,250 1 cap PO QWEEK 05/06/22 08/29/22 mcg (50,000 unit) capsule haloperidol 5 mg tablet 1 tab PO BID 05/06/22 08/29/22 nicotine 14 mg/24 hr daily topical 05/06/22 08/29/22 transdermal patch Previous Rx's Medication Instructions Recorded pantoprazole 40 mg tablet,delayed 40 mg PO BID 8 weeks #112 tabs 05/12/22 release cefuroxime axetil 250 mg tablet 250 mg PO BID 10 days #20 tabs 09/28/22 Allergies Allergy/AdvReac Type Severity Reaction Status Date / Time iron Allergy Mild UNKNOWN Verified 08/29/22 09:49 Iodinated Contrast Media Allergy Unknown UNKNOWN Verified 08/29/22 09:49 [IV Dye, Iodine Containing] iodine [IODINE] Allergy Unknown RASH Verified 08/29/22 09:49 SEAFOOD Allergy Unknown UNKNOWN Uncoded 05/06/22 11:06 Review of Systems Review of Systems: Yes all other systems are reviewed and are negative [facility] Past Medical History Medical History Anxiety disorder Asthma Depression Diabetes Dysphagia Elevated cholesterol GERD (gastroesophageal reflux disease) Heartburn HTN (hypertension) Migraines On beta jordyn at home Smoker Surgical History H/O colonoscopy History of esophagogastroduodenoscopy (EGD) History of tubal ligation Hx of cholecystectomy Hx of left knee surgery Social History Social History Household Members: Children Alcohol intake: never Patient Tobacco Use Status: Current everyday Tobacco user Tobacco use type: Cigarette Cigarettes Per Day: 8 Second Hand Smoke Exposure: Yes Advance Directives: No Advance Directives Information Provided: Yes Current occupational status: disabled Physical Exam ED Vital Signs: Vital Signs - 24 hr 09/27/22 17:06 09/27/22 21:05 09/27/22 23:48 Temperature 97.5 F 97.7 F 97.7 F Pulse Rate 81 84 Respiratory Rate 16 16 Blood Pressure 139/81 123/88 Pulse Oximetry 98 98 Oxygen Delivery Method Room Air Room Air BMI result Body Mass Index 22.8 Appearance: Alert. Oriented X3. No acute distress. Eyes: PERRLA, No Nystagmus ENT: Pharynx normal. Oral Mucosa moist Neck: Normal inspection. Neck supple. CVS: Normal heart rate and rhythm. Pulses normal. Respiratory: No respiratory distress. Equal air entry bilateral, no w heezing/rales/rhonchi Abdomen: Soft and nontender. Bowel sounds are present, no mass palpable, no CVA tenderness Skin: Skin warm and dry. Normal skin color. Normal skin turgor. Extremities: No lower extremity edema. No calf tenderness Neuro: Oriented X 3. No motor deficit. No sensory deficit.No cerebellar signs , cranial nerves II-XII intact Medications Administered Discontinued Medications Generic Name Dose Route Start Last Admin Trade Name Freq PRN Reason Stop Dose Admin Sodium Chloride 1,000 mls @ 999 mls/hr 09/27/22 18:29 09/27/22 20:54 Ns IV 09/27/22 19:29 999 mls/hr .Q1H1M ONE Administration Ceftriaxone Sodium 1 gm/ 50 mls @ 100 mls/hr 09/27/22 22:54 09/27/22 23:30 Sodium Chloride IV 09/27/22 23:23 100 mls/hr ONCE ONE Administration Medical Decision Making Medical Decision Making [facility] Narrative: Patient likely had hypoglycemia repeat blood glucose was 132. Workup showed slightly elevated creatinine 1.57 had UTI patient received IV I have set discharge on Ceftin. Patient feels much better at time of discharge Lab Data [facility] Lab Attestation statement: I reviewed the patient's lab results. 09/27/22 17:44 09/27/22 17:44 Labs: Lab Results 09/27/22 09/27/22 09/27/22 Range/Units 17:44 17:44 17:44 WBC 6.4 (4.8-10.8) X10*3/uL RBC 3.73 L (4.20-5.50) X10*6/uL Hgb 11.0 L (12.0-16.0) g/dl Hct 32.3 L (37.0-47.0) % MCV 86.6 (80.0-98.0) fL MCH 29.5 (27.0-33.0) pg MCHC 34.1 (31.0-35.0) g/dl RDW 13.2 (11.0-16.0) % Plt Count 332 (160-400) X10*3/uL MPV 9.8 (9.4-12.3) fL Immature Gran % (Auto) 1.1 H (0.0-0.4) % Neut % (Auto) 64.3 (45-73) % Lymph % (Auto) 27.2 (20-40) % [place] % (Auto) 5.0 (2-11) % Eos % (Auto) 1.9 (0-4) % Baso % (Auto) 0.5 (0-2) % Lymph # (Auto) 1.7 (1.2-4.9) X10*3/uL [place] # (Auto) 0.3 (0.1-1.2) X10*3/uL Eos # (Auto) 0.1 (0.0-0.4) X10*3/uL Baso # (Auto) 0.0 (0.0-0.2) X10*3/uL Abs Immat Gran (auto) 0.07 H (0.00-0.03) X10*3/uL Absolute Neuts (auto) 4.1 (2.0-8.3) x10*3/uL Absolute Nucleated RBC 0.000 (0.0-0.012) X10*3/uL Nucleated RBC % (auto) 0.0 (0.0-0.2) /100WBC Sodium 131 L (135-145) mmol/L Potassium 4.4 D (3.3-5.1) mmol/L Chloride 96 (96-108) mmol/L Carbon Dioxide 22 (22-29) mmol/L Anion Gap 17 (12-20) BUN 15 (9-16) mg/dL Creatinine 1.57 H (0.5-1.4) mg/dL Estim Creat Clear Calc 31.9 Estimated GFR 34 POC Glucose (60-115) mg/dL Random Glucose 132 H (60-115) mg/dL Calcium 9.9 D (8.4-10.2) mg/dL Magnesium 1.6 (1.6-2.6) mg/dL Total Bilirubin 0.2 (0.0-1.0) mg/dL AST 9 (5-31) U/L ALT 8 (0-31) U/L Alkaline Phosphatase 116 (39-117) U/L Troponin I High Sens (<3.5-17.0) ng/L Total Protein 7.2 (6.5-8.0) g/dL Albumin 3.9 (3.5-5.0) g/dL Urine Color Urine Appearance Urine pH (5.0-9.0) Ur Specific [place] (1.005-1.025) Urine Protein (Neg-Trace) mg/dL Urine Glucose (UA) (Negative) mg/dL Urine Ketones (Negative) mg/dL Urine Blood (Negative) Urine Nitrite (Negative) Ur Leukocyte Esterase (Negative) Urine RBC (0-2) /HPF Urine WBC (0-5) /HPF Ur Squamous Epith Cells (0-2) /HPF Urine Bacteria (None Seen) Hyaline Casts (0-2) /LPF Influenza Type A (PCR) NEGATIVE (Negative) Influenza Type B (PCR) NEGATIVE (Negative) RSV RNA Qual (PCR) NEGATIVE (Negative) SARS-CoV-2 RNA (RT-PCR) NEGATIVE (Negative) 09/27/22 09/27/22 09/28/22 Range/Units 17:44 20:51 00:07 WBC (4.8-10.8) X10*3/uL RBC (4.20-5.50) X10*6/uL Hgb (12.0-16.0) g/dl Hct (37.0-47.0) % MCV (80.0-98.0) fL MCH (27.0-33.0) pg MCHC (31.0-35.0) g/dl RDW (11.0-16.0) % Plt Count (160-400) X10*3/uL MPV (9.4-12.3) fL Immature Gran % (Auto) (0.0-0.4) % Neut % (Auto) (45-73) % Lymph % (Auto) (20-40) % [place] % (Auto) (2-11) % Eos % (Auto) (0-4) % Baso % (Auto) (0-2) % Lymph # (Auto) (1.2-4.9) X10*3/uL [place] # (Auto) (0.1-1.2) X10*3/uL Eos # (Auto) (0.0-0.4) X10*3/uL Baso # (Auto) (0.0-0.2) X10*3/uL Abs Immat Gran (auto) (0.00-0.03) X10*3/uL Absolute Neuts (auto) (2.0-8.3) x10*3/uL Absolute Nucleated RBC (0.0-0.012) X10*3/uL Nucleated RBC % (auto) (0.0-0.2) /100WBC Sodium (135-145) mmol/L Potassium (3.3-5.1) mmol/L Chloride (96-108) mmol/L Carbon Dioxide (22-29) mmol/L Anion Gap (12-20) BUN (9-16) mg/dL Creatinine (0.5-1.4) mg/dL Estim Creat Clear Calc Estimated GFR POC Glucose 95 (60-115) mg/dL Random Glucose (60-115) mg/dL Calcium (8.4-10.2) mg/dL Magnesium (1.6-2.6) mg/dL Total Bilirubin (0.0-1.0) mg/dL AST (5-31) U/L ALT (0-31) U/L Alkaline Phosphatase (39-117) U/L Troponin I High Sens 4.0 (<3.5-17.0) ng/L Total Protein (6.5-8.0) g/dL Albumin (3.5-5.0) g/dL Urine Color Yellow Urine Appearance Turbid Urine pH 5.5 (5.0-9.0) Ur Specific [place] 1.015 (1.005-1.025) Urine Protein 30 (1+) H (Neg-Trace) mg/dL Urine Glucose (UA) Negative (Negative) mg/dL Urine Ketones Trace (Negative) mg/dL Urine Blood Trace H (Negative) Urine Nitrite Negative (Negative) Ur Leukocyte Esterase Large (3+) H (Negative) Urine RBC 0-2 (0-2) /HPF Urine WBC >50 H (0-5) /HPF Ur Squamous Epith Cells >20 (0-2) /HPF Urine Bacteria 4+ (None Seen) Hyaline Casts >20 (0-2) /LPF Influenza Type A (PCR) (Negative) Influenza Type B (PCR) (Negative) RSV RNA Qual (PCR) (Negative) SARS-CoV-2 RNA (RT-PCR) (Negative) Independent Interpretation I performed an independent interpretation of an: EKG Interpretation: Normal sinus rhythm heart rate 80 beats per minute nonspecific ST T wave changes no acute ischemia Discharge Plan Discharge Clinical Impression: UTI (urinary tract infection), Hypoglycemia Clinical Impression: (Ruled Out): Earache Patient Disposition: Home, Self-Care Additional Instructions: Drink plenty of fluids and eat well Antibiotics as advised for infection Report to the ER if high-grade fever/vomiting Check blood sugar more often should be more than 100 Prescriptions: New cefuroxime axetil 250 mg tablet 250 mg PO BID 10 Days Qty: 20 0RF No Action nicotine 14 mg/24 hr patch 24 hour topical ergocalciferol (vitamin D2) 1,250 mcg (50,000 unit) capsule 1 cap PO QWEEK haloperidol 5 mg tablet 1 tab PO BID pantoprazole 40 mg tablet,delayed release (DR/EC) 40 mg PO BID 56 Days Qty: 112 0RF Rx Instructions: Take 40 mins before meals Trulicity 1.5 mg/0.5 mL pen injector subcut QWEEK mirtazapine 7.5 mg tablet 7.5 mg PO BEDTIME prazosin 2 mg capsule 2 mg PO BID Rx Instructions: 1 tab in am, 2 tabs at bedtime fluticasone propionate 50 mcg/actuation spray,suspension 2 spray intranasal DAILY alcohol swabs [Alcohol Prep Pads] Pads, Medicated 0 pad topical TID fluoxetine 10 mg capsule 10 mg PO QAM metformin 1,000 mg tablet 1,000 mg PO BID aspirin 81 mg tablet,delayed release (DR/EC) 81 mg PO QAM amlodipine 5 mg tablet 5 mg PO QPM metoprolol succinate 50 mg tablet extended release 24 hr 50 mg PO QAM benztropine 0.5 mg tablet 0.5 mg PO BID atorvastatin 20 mg tablet 20 mg PO BEDTIME losartan 50 mg tablet 50 mg PO QPM bupropion HCl 150 mg tablet extended release 24 hr 150 mg PO QAM (DME) insulin syringe-needle U-100 [UltiCare] 0.5 mL 30 gauge x 1/2 syringe See Rx Instructions .ROUTE DAILY Qty: 10 Rx Instructions: As directed Interventions: ED Discharge Assessment Last Done: 09/28/22 00:18 Discharge Date/Time: 09/28/22 00:19
[2022-09-27 18:30] LABS: Influenza A PCR NEGATIVE (Negative); Influenza B PCR NEGATIVE (Negative); Resp Syncy Virus RNA Qual PCR NEGATIVE (Negative); SARS COV2 PCR INHOUSE NEGATIVE (Negative)
--- NOTE | 2022-09-27 20:53 | PC.NURSE ---
I assumed nursing care of this pt at 1915 from [facility]. The pt was noted to be ambulating throughout the department from bed 15 to the bathroom outside of bed 14 and back to bed 15 independently and with steady gait. IV access has been obtained and IVF's are infusing. Pts family remains at the bedside. We will continue to monitor.
[2022-09-27] MEDS: 0.9 % Sodium Chloride 1,000 ML 999 ML IV (20:54)
[2022-09-27 21:00] LABS: Appearance Urine Turbid; Color Urine Yellow; Glucose Urine UA Negative (Negative); Leukocyte Esterase Urine Large (3+) (Negative); Nitrite Urine Negative (Negative); PH 5.5 (5.0-9.0); Specific Gravity - Urine 1.015 (1.005-1.025); UMIC TRIGGER UACC YES; Urine Blood Trace (Negative); Urine Ketones Trace mg/dL (Negative); Urine Protein 30 (1+) mg/dL (Neg-Trace)
[2022-09-27 21:05] VITALS: BP 139/81; PULSE 81; RESP 16; TEMP 36.5; O2SAT 98
[2022-09-27 21:11] LABS: Bacteria Urine 4+ (None Seen); Hyaline Casts Urine >20 /LPF (0-2); RBC Urine 0-2 /HPF (0-2); Squamous Epithelial Cell Urine >20 /HPF (0-2); UACC Culture Trigger YES; WBC Urine >50 /HPF (0-5)
[2022-09-27] MEDS: cefTRIAXone sodium 1 GM in 0.9 % Sodium Chloride 50 ML IV (23:30)
[2022-09-27 23:48] VITALS: BP 123/88; PULSE 84; RESP 16; TEMP 36.5; O2SAT 98
[2022-09-28 00:10] LABS: Glucose, Whole Blood 95 mg/dL (60-115)
== END 2022-09-28 00:19 | disposition home or self-care (01) ==
PROVIDERS: Emergency Provider Internal Medicine; PCP Internal Medicine Geriatric Medicine
DX: N39.0 Urinary tract infection, site not specified (principal); R53.1 Weakness; F17.210 Nicotine dependence, cigarettes, uncomplicated; Z20.822 Contact with and (suspected) exposure to COVID-19; Z20.828 Contact with and (suspected) exposure to other viral communicable diseases; Z71.6 Tobacco abuse counseling; Z79.899 Other long term (current) drug therapy
CPT/HCPCS: 0241U; 36415; 71045; 80053; 81001; 81003; 82947; 83735; 84484; 85025; 87086; 87088; 87186; 93005; 96374; 99284; J0696

== ENCOUNTER → 2022-10-13 07:28 | Outpatient (BNVA) | payer MEDICAID, SELFPAY | PROVIDERS: PCP Internal Medicine Geriatric Medicine; Visit Provider Physician Assistant | DX: K20.90 Esophagitis, unspecified without bleeding (principal); R12 Heartburn; F17.210 Nicotine dependence, cigarettes, uncomplicated | CPT/HCPCS: 99212 ==

== ENCOUNTER → 2022-12-12 07:48 | Outpatient (BNVA) | payer MEDICAID, SELFPAY | PROVIDERS: PCP Internal Medicine Geriatric Medicine; Visit Provider Physician Assistant | DX: K20.90 Esophagitis, unspecified without bleeding (principal); R12 Heartburn; R13.10 Dysphagia, unspecified; F17.210 Nicotine dependence, cigarettes, uncomplicated | CPT/HCPCS: 99212 ==

== ENCOUNTER 2023-04-16 02:30 | Emergency (ER) | payer MEDICAID, SELFPAY ==
[2023-04-16 02:56] VITALS: BP 70/42; PULSE 66; RESP 16; TEMP 36.4; O2SAT 99; BMI 25.5
--- NOTE | 2023-04-16 04:12 | ED.GENADULT ---
HPI - General Adult General Chief complaint: General Medical Stated complaint: low bp Time Seen by Provider: 04/16/23 04:08 Source: patient and family Mode of arrival: ambulatory Limitations: no limitations History of Present Illness HPI narrative: Patient diabetic with depression. Failure To thrive refusing to eat much food at home was drinking Ensure before but now they do not have it blood pressure was low on arrival was 70/42 with blood sugar of 355 no abdominal pain no nausea no vomiting no urine symptoms Related Data Home Medications Medication Instructions Recorded Confirmed alcohol swabs (Alcohol Prep Pads) 0 pad topical TID 04/21/22 08/29/22 amlodipine 5 mg tablet 5 mg PO QPM 04/21/22 08/29/22 aspirin 81 mg tablet,delayed 81 mg PO QAM 04/21/22 08/29/22 release atorvastatin 20 mg tablet 20 mg PO BEDTIME 04/21/22 08/29/22 benztropine 0.5 mg tablet 0.5 mg PO BID 04/21/22 08/29/22 bupropion HCl 150 mg 24 hr tablet, 150 mg PO QAM 04/21/22 08/29/22 extended release dulaglutide 1.5 mg/0.5 mL mg subcut QWEEK 04/21/22 08/29/22 subcutaneous pen injector (Trulicity) fluoxetine 10 mg capsule 10 mg PO QAM 04/21/22 08/29/22 fluticasone propionate 50 2 spray intranasal DAILY 04/21/22 08/29/22 mcg/actuation nasal spray,suspension insulin syringe-needle U-100 0.5 #10 ea 04/21/22 08/29/22 mL 30 gauge x 1/2 (UltiCare) losartan 50 mg tablet 50 mg PO QPM 04/21/22 08/29/22 metformin 1,000 mg tablet 1,000 mg PO BID 04/21/22 08/29/22 metoprolol succinate 50 mg 50 mg PO QAM 04/21/22 08/29/22 tablet,extended release 24 hr mirtazapine 7.5 mg tablet 7.5 mg PO BEDTIME 04/21/22 08/29/22 prazosin 2 mg capsule 2 mg PO BID 04/21/22 08/29/22 ergocalciferol (vitamin D2) 1,250 1 cap PO QWEEK 05/06/22 08/29/22 mcg (50,000 unit) capsule haloperidol 5 mg tablet 1 tab PO BID 05/06/22 08/29/22 Previous Rx's Medication Instructions Recorded pantoprazole 40 mg tablet,delayed 40 mg PO QAM #30 tabs 02/27/23 release Allergies Allergy/AdvReac Type Severity Reaction Status Date / Time iron Allergy Mild UNKNOWN Verified 12/12/22 07:57 Iodinated Contrast Media Allergy Unknown UNKNOWN Verified 12/12/22 07:57 [IV Dye, Iodine Containing] iodine [IODINE] Allergy Unknown RASH Verified 12/12/22 07:57 SEAFOOD Allergy Unknown UNKNOWN Uncoded 05/06/22 11:06 Review of Systems Review of Systems: Yes all other systems are reviewed and are negative [facility] Past Medical History Medical History Anxiety disorder Asthma Depression Diabetes Dysphagia Elevated cholesterol GERD (gastroesophageal reflux disease) Heartburn HTN (hypertension) Migraines On beta jordyn at home Smoker Surgical History H/O colonoscopy History of esophagogastroduodenoscopy (EGD) History of tubal ligation Hx of cholecystectomy Hx of left knee surgery Social History Social History Household Members: Children Alcohol intake: never Patient Tobacco Use Status: Current everyday Tobacco user Tobacco use type: Cigarette Cigarettes Per Day: 8 Smoked in Last 30 Days: No Second Hand Smoke Exposure: Yes Use of substances other than those prescribed or required for medical reasons: No Advance Directives: No Advance Directives Information Provided: Yes Patient : No Current occupational status: disabled Physical Exam ED Vital Signs: Vital Signs - 24 hr 04/16/23 02:56 04/16/23 05:07 Temperature 97.5 F Pulse Rate 66 70 Respiratory Rate 16 16 Blood Pressure 70/42 L 124/76 Pulse Oximetry 99 100 Oxygen Delivery Method Room Air Room Air BMI result Body Mass Index 25.5 Appearance: Alert. Oriented X3. No acute distress. Eyes: PERRLA, No Nystagmus ENT: Pharynx normal. Oral Mucosa moist Neck: Normal inspection. Neck supple. CVS: Normal heart rate and rhythm. Pulses normal. Respiratory: No respiratory distress. Equal air entry bilateral, no wheezing/rales/rhonchi Abdomen: Soft and nontender. Bowel sounds are present, no mass palpable, no CVA tenderness Skin: Skin warm and dry. Normal skin color. Normal skin turgor. Extremities: No lower extremity edema. No calf tenderness Neuro: Oriented X 3. No motor deficit. Medications Administered Discontinued Medications Generic Name Dose Route Start Last Admin Trade Name Eduardo PRN Reason Stop Dose Admin Sodium Chloride 1,000 mls @ 999 mls/hr 04/16/23 04:09 04/16/23 04:51 Ns IV 04/16/23 05:09 Not Given .Q1H1M ONE Sodium Chloride 1,000 mls @ 999 mls/hr 04/16/23 05:07 04/16/23 05:22 Ns IV 04/16/23 06:07 999 mls/hr .Q1H1M ONE Administration Insulin Human Lispro 14 unit 04/16/23 05:07 04/16/23 05:22 Insulin Lispro 100 Unit/Ml 3 Ml Vial SUBCUT 04/16/23 05:08 14 unit ONCE ONE Administration Medical Decision Making Medical Decision Making [facility] Narrative: Patient blood pressure was normal no orthostatic hypotension will check basic labs and a urine Lab showed elevated blood sugar 411, creatinine 1.83 sodium 129 will give 1 L of IV fluid and insulin patient had p.o. fluids feeling much better now repeat blood sugar 343 Lab Data [facility] Lab Attestation statement: I reviewed the patient's lab results. 04/16/23 04:37 04/16/23 04:37 Labs: Lab Results 04/16/23 04/16/23 04/16/23 Range/Units 04:37 04:37 05:16 WBC 8.1 (4.8-10.8) X10*3/uL RBC 3.56 L (4.20-5.50) X10*6/uL Hgb 10.7 L (12.0-16.0) g/dl Hct 31.5 L (37.0-47.0) % MCV 88.5 (80.0-98.0) fL MCH 30.1 (27.0-33.0) pg MCHC 34.0 (31.0-35.0) g/dl RDW 11.9 (11.0-16.0) % Plt Count 312 (160-400) X10*3/uL MPV 10.1 (9.4-12.3) fL Immature Gran % (Auto) 3.9 H (0.0-0.4) % Neut % (Auto) 61.6 (45-73) % Lymph % (Auto) 27.5 (20-40) % [place] % (Auto) 5.4 (2-11) % Eos % (Auto) 1.0 (0-4) % Baso % (Auto) 0.6 (0-2) % Lymph # (Auto) 2.2 (1.2-4.9) X10*3/uL [place] # (Auto) 0.4 (0.1-1.2) X10*3/uL Eos # (Auto) 0.1 (0.0-0.4) X10*3/uL Baso # (Auto) 0.1 (0.0-0.2) X10*3/uL Abs Immat Gran (auto) 0.32 H (0.00-0.03) X10*3/uL Absolute Neuts (auto) 5.0 (2.0-8.3) x10*3/uL Absolute Nucleated RBC 0.000 (0.0-0.012) X10*3/uL Nucleated RBC % (auto) 0.0 (0.0-0.2) /100WBC Sodium 129 L (135-145) mmol/L Potassium 4.9 (3.3-5.1) mmol/L Chloride 100 (96-108) mmol/L Carbon Dioxide 16 L (22-29) mmol/L Anion Gap 18 (12-20) BUN 32 H (9-16) mg/dL Creatinine 1.83 H (0.5-1.4) mg/dL Estim Creat Clear Calc 27.4 Estimated GFR 28 POC Glucose (60-115) mg/dL Random Glucose 411 H* (60-115) mg/dL Calcium 9.5 (8.4-10.2) mg/dL Magnesium 2.0 (1.6-2.6) mg/dL Total Bilirubin 0.3 (0.0-1.0) mg/dL AST 7 (5-31) U/L ALT 13 (0-31) U/L Alkaline Phosphatase 212 H (39-117) U/L Total Protein 7.5 (6.5-8.0) g/dL Albumin 4.0 (3.5-5.0) g/dL Urine Color Yellow Urine Appearance Clear Urine pH 6.0 (5.0-9.0) Ur Specific [place] 1.015 (1.005-1.025) Urine Protein Trace (Neg-Trace) mg/dL Urine Glucose (UA) >=1000 H (Negative) mg/dL Urine Ketones Negative (Negative) mg/dL Urine Blood Negative (Negative) Urine Nitrite Negative (Negative) Ur Leukocyte Esterase Trace H (Negative) Urine RBC 0-2 (0-2) /HPF Urine WBC 0-5 (0-5) /HPF Ur Squamous Epith Cells 6-10 (0-2) /HPF Urine Bacteria None Seen (None Seen) Hyaline Casts 0-2 (0-2) /LPF 04/16/23 Range/Units 06:02 WBC (4.8-10.8) X10*3/uL RBC (4.20-5.50) X10*6/uL Hgb (12.0-16.0) g/dl Hct (37.0-47.0) % MCV (80.0-98.0) fL MCH (27.0-33.0) pg MCHC (31.0-35.0) g/dl RDW (11.0-16.0) % Plt Count (160-400) X10*3/uL MPV (9.4-12.3) fL Immature Gran % (Auto) (0.0-0.4) % Neut % (Auto) (45-73) % Lymph % (Auto) (20-40) % [place] % (Auto) (2-11) % Eos % (Auto) (0-4) % Baso % (Auto) (0-2) % Lymph # (Auto) (1.2-4.9) X10*3/uL [place] # (Auto) (0.1-1.2) X10*3/uL Eos # (Auto) (0.0-0.4) X10*3/uL Baso # (Auto) (0.0-0.2) X10*3/uL Abs Immat Gran (auto) (0.00-0.03) X10*3/uL Absolute Neuts (auto) (2.0-8.3) x10*3/uL Absolute Nucleated RBC (0.0-0.012) X10*3/uL Nucleated RBC % (auto) (0.0-0.2) /100WBC Sodium (135-145) mmol/L Potassium (3.3-5.1) mmol/L Chloride (96-108) mmol/L Carbon Dioxide (22-29) mmol/L Anion Gap (12-20) BUN (9-16) mg/dL Creatinine (0.5-1.4) mg/dL Estim Creat Clear Calc Estimated GFR POC Glucose 343 H (60-115) mg/dL Random Glucose (60-115) mg/dL Calcium (8.4-10.2) mg/dL Magnesium (1.6-2.6) mg/dL Total Bilirubin (0.0-1.0) mg/dL AST (5-31) U/L ALT (0-31) U/L Alkaline Phosphatase (39-117) U/L Total Protein (6.5-8.0) g/dL Albumin (3.5-5.0) g/dL Urine Color Urine Appearance Urine pH (5.0-9.0) Ur Specific [place] (1.005-1.025) Urine Protein (Neg-Trace) mg/dL Urine Glucose (UA) (Negative) mg/dL Urine Ketones (Negative) mg/dL Urine Blood (Negative) Urine Nitrite (Negative) Ur Leukocyte Esterase (Negative) Urine RBC (0-2) /HPF Urine WBC (0-5) /HPF Ur Squamous Epith Cells (0-2) /HPF Urine Bacteria (None Seen) Hyaline Casts (0-2) /LPF Discharge Plan Discharge Clinical Impression: Adult failure to thrive, Chronic hyperglycemia Patient Disposition: Home, Self-Care Instructions: Failure to Thrive in Older Adults (ED), Diabetic Hyperglycemia (ED) Additional Instructions: Diabetic diet as advised Drink plenty of fluids and follow with your PCP Prescriptions: No Action pantoprazole 40 mg tablet,delayed release (DR/EC) 40 mg PO QAM Qty: 30 2RF ergocalciferol (vitamin D2) 1,250 mcg (50,000 unit) capsule 1 cap PO QWEEK haloperidol 5 mg tablet 1 tab PO BID Trulicity 1.5 mg/0.5 mL pen injector subcut QWEEK mirtazapine 7.5 mg tablet 7.5 mg PO BEDTIME prazosin 2 mg capsule 2 mg PO BID Rx Instructions: 1 tab in am, 2 tabs at bedtime fluticasone propionate 50 mcg/actuation spray,suspension 2 spray intranasal DAILY alcohol swabs [Alcohol Prep Pads] Pads, Medicated 0 pad topical TID fluoxetine 10 mg capsule 10 mg PO QAM metformin 1,000 mg tablet 1,000 mg PO BID aspirin 81 mg tablet,delayed release (DR/EC) 81 mg PO QAM amlodipine 5 mg tablet 5 mg PO QPM metoprolol succinate 50 mg tablet extended release 24 hr 50 mg PO QAM benztropine 0.5 mg tablet 0.5 mg PO BID atorvastatin 20 mg tablet 20 mg PO BEDTIME losartan 50 mg tablet 50 mg PO QPM bupropion HCl 150 mg tablet extended release 24 hr 150 mg PO QAM (DME) insulin syringe-needle U-100 [UltiCare] 0.5 mL 30 gauge x 1/2 syringe See Rx Instructions .ROUTE DAILY Qty: 10 Rx Instructions: As directed
[2023-04-16 04:42] LABS: Basophils Absolute Auto 0.1 X10*3/uL (0.0-0.2); Basophils Percent Auto 0.6 % (0-2); Eosinophils Absolute Auto 0.1 X10*3/uL (0.0-0.4); Hematocrit 31.5 % (37.0-47.0); Hemoglobin 10.7 g/dl (12.0-16.0); Imm Gran Abs Auto 0.32 X10*3/uL (0.00-0.03); Imm Gran Pct Auto 3.9 % (0.0-0.4); Lymphocytes Absolute Auto 2.2 X10*3/uL (1.2-4.9); Lymphocytes Percent Auto 27.5 % (20-40); MANUAL DIFF FLAG NO; Mean Corpuscular Hemoglobin 30.1 pg (27.0-33.0); Mean Corpuscular Volume 88.5 fL (80.0-98.0); Mean Platelet Volume 10.1 fL (9.4-12.3); Monocytes Absolute Auto 0.4 X10*3/uL (0.1-1.2); Monocytes Percent Auto 5.4 % (2-11); Neutrophils Percent Auto 61.6 % (45-73); Platelet Count 312 X10*3/uL (160-400); Red Blood Count 3.56 X10*6/uL (4.20-5.50); Red Cell Distribution Width 11.9 % (11.0-16.0); White Blood Count 8.1 X10*3/uL (4.8-10.8)
--- NOTE | 2023-04-16 04:51 | MHC.EDTECH ---
Orthostatics as follows: Layin/79, HR 66 Sittin/76, HR 70 Standin/61, HR 69 Dr. Cee aware
[2023-04-16 05:04] LABS: Alanine Aminotransferase 13 U/L (0-31); Alkaline Phosphatase 212 U/L (39-117); Anion Gap 18 (12-20); Aspartate Amino Transferase 7 U/L (5-31); Bilirubin Total 0.3 mg/dL (0.0-1.0); Blood Urea Nitrogen 32 mg/dL (9-16); Calcium 9.5 mg/dL (8.4-10.2); Carbon Dioxide 16 mmol/L (22-29); Chloride 100 mmol/L (96-108); Creatinine Clr Calc Pharmacy 27.4; Estimated Glomerular Filt Rate 28; Glucose Random 411 mg/dL (60-115); Potassium 4.9 mmol/L (3.3-5.1); Sodium 129 mmol/L (135-145); Total Protein 7.5 g/dL (6.5-8.0)
[2023-04-16 05:07] VITALS: BP 124/76; PULSE 70; RESP 16; O2SAT 100
[2023-04-16 05:21] LABS: Appearance Urine Clear; Color Urine Yellow; Glucose Urine UA >=1000 mg/dL (Negative); Leukocyte Esterase Urine Trace (Negative); Nitrite Urine Negative (Negative); Specific Gravity - Urine 1.015 (1.005-1.025); UMIC TRIGGER UACC YES; Urine Blood Negative (Negative); Urine Ketones Negative (Negative); Urine Protein Trace mg/dL (Neg-Trace)
[2023-04-16] MEDS: Insulin Lispro 100 UNIT/ML 3 ML VIAL 14 UNIT SUBCUT (05:22)
[2023-04-16] MEDS: 0.9 % Sodium Chloride 1,000 ML 999 ML IV (05:22)
[2023-04-16 05:26] LABS: Bacteria Urine None Seen (None Seen); Hyaline Casts Urine 0-2 /LPF (0-2); RBC Urine 0-2 /HPF (0-2); WBC Urine 0-5 /HPF (0-5)
[2023-04-16 06:05] LABS: Glucose, Whole Blood 343 mg/dL (60-115)
== END 2023-04-16 06:31 | disposition home or self-care (01) ==
PROVIDERS: Emergency Provider Internal Medicine; PCP Internal Medicine Geriatric Medicine
DX: E11.65 Type 2 diabetes mellitus with hyperglycemia (principal); R62.7 Adult failure to thrive; Z79.4 Long term (current) use of insulin; Z79.899 Other long term (current) drug therapy
CPT/HCPCS: 36415; 80053; 81001; 82947; 83735; 85025; 96360; 96361; 99284

== ENCOUNTER 2023-04-18 10:13 | Outpatient (REF) | payer MEDICAID, SELFPAY ==
[2023-04-18 11:25] LABS: MANUAL DIFF FLAG NO
[2023-04-18 11:40] LABS: Basophils Absolute Auto 0.1 X10*3/uL (0.0-0.2); Basophils Percent Auto 0.7 % (0-2); Eosinophils Absolute Auto 0.1 X10*3/uL (0.0-0.4); Eosinophils Percent Auto 1.4 % (0-4); Hematocrit 32.3 % (37.0-47.0); Hemoglobin 10.8 g/dl (12.0-16.0); Imm Gran Abs Auto 0.21 X10*3/uL (0.00-0.03); Imm Gran Pct Auto 2.9 % (0.0-0.4); Lymphocytes Absolute Auto 2.9 X10*3/uL (1.2-4.9); Lymphocytes Percent Auto 40.1 % (20-40); Mean Corpuscular HGB Conc 33.4 g/dl (31.0-35.0); Mean Corpuscular Hemoglobin 30.3 pg (27.0-33.0); Mean Corpuscular Volume 90.7 fL (80.0-98.0); Mean Platelet Volume 10.5 fL (9.4-12.3); Monocytes Absolute Auto 0.4 X10*3/uL (0.1-1.2); Monocytes Percent Auto 5.1 % (2-11); Neutrophils Absolute Auto 3.6 x10*3/uL (2.0-8.3); Neutrophils Percent Auto 49.8 % (45-73); Platelet Count 375 X10*3/uL (160-400); Red Blood Count 3.56 X10*6/uL (4.20-5.50); Red Cell Distribution Width 11.9 % (11.0-16.0); White Blood Count 7.3 X10*3/uL (4.8-10.8)
[2023-04-18 12:32] LABS: Creatinine Urine 33.16 mg/dL; Microalbum/Creatinine Ratio Ur 48.2 ug/mg cr
[2023-04-18 13:00] LABS: Alanine Aminotransferase 12 U/L (0-31); Albumin Level 4.2 g/dL (3.5-5.0); Alkaline Phosphatase 202 U/L (39-117); Anion Gap 14 (12-20); Aspartate Amino Transferase 12 U/L (5-31); Bilirubin Direct 0.1 mg/dL (0.0-0.5); Bilirubin Total 0.3 mg/dL (0.0-1.0); Blood Urea Nitrogen 22 mg/dL (9-16); Carbon Dioxide 19 mmol/L (22-29); Chloride 102 mmol/L (96-108); Cholesterol 153 mg/dL; Estimated Glomerular Filt Rate 35; Glucose Random 240 mg/dL (60-115); HDL Cholesterol 35 mg/dL; Iron 83 mcg/dL (30-160); LDL Cholesterol Calculated 59 mg/dl; Percent Iron Saturation 26 % (15-50); Potassium 5.2 mmol/L (3.3-5.1); Sodium 130 mmol/L (135-145); Total Iron Binding Capacity 317 mcg/dL (228-428); Triglycerides 295 mg/dL; Unsaturated Iron Binding 234 ug/dL
[2023-04-18 13:01] LABS: Ferritin 125 ng/mL (10-250)
== END 2023-04-18 10:14 | disposition home or self-care (01) ==
LOC: HO.HHCL 10:13
PROVIDERS: Visit Provider Internal Medicine Geriatric Medicine
DX: E11.65 Type 2 diabetes mellitus with hyperglycemia (principal); F39 Unspecified mood [affective] disorder; D64.9 Anemia, unspecified; R79.89 Other specified abnormal findings of blood chemistry
CPT/HCPCS: 36415; 80048; 80061; 80076; 82043; 82728; 83540; 85025

== ENCOUNTER 2023-05-20 01:14 | Observation (INO) | payer MEDICAID, SELFPAY ==
--- NOTE | 2023-05-20 01:27 | ED_ITS ---
HPI - General Adult General Chief complaint: General Medical Stated complaint: weakness Time Seen by Provider: 05/20/23 01:21 Source: patient Mode of arrival: EMS Limitations: no limitations History of Present Illness HPI narrative: Patient type 2 diabetic on insulin and Ozempic and metformin been having sweet drinks lately and feeling weak urinating a lot blood sugar noted to be reading high for patient feels weak nauseated vomited 1 time no abdominal pain dysuria or hematuria blood sugar tested in the ER was 828. No fever no history of similar complaints in the past patient denied any confusion no seizures no headache Related Data Home Medications Medication Instructions Recorded Confirmed aspirin 81 mg tablet,delayed 81 mg PO DAILY 04/21/22 05/20/23 release atorvastatin 20 mg tablet 20 mg PO BEDTIME 04/21/22 05/20/23 benztropine 0.5 mg tablet 0.5 mg PO BID 04/21/22 05/20/23 fluoxetine 10 mg capsule 10 mg PO DAILY 04/21/22 05/20/23 insulin syringe-needle U-100 0.5 #10 ea 04/21/22 08/29/22 mL 30 gauge x 1/2 (UltiCare) metformin 1,000 mg tablet 1,000 mg PO BID 04/21/22 05/20/23 metoprolol succinate 50 mg 50 mg PO DAILY 04/21/22 05/20/23 tablet,extended release 24 hr mirtazapine 7.5 mg tablet 7.5 mg PO BEDTIME 04/21/22 05/20/23 prazosin 2 mg capsule 2 mg PO DAILY 04/21/22 05/20/23 ergocalciferol (vitamin D2) 1,250 1 cap PO QWEEK 05/06/22 05/20/23 mcg (50,000 unit) capsule haloperidol 5 mg tablet 1 tab PO BID 05/06/22 05/20/23 amlodipine 5 mg tablet 5 mg PO BEDTIME 05/20/23 dulaglutide 1.5 mg/0.5 mL 1.5 mg subcut QWEEK 05/20/23 subcutaneous pen injector (Trulicity) losartan 25 mg tablet 25 mg PO DAILY 05/20/23 05/20/23 pantoprazole 40 mg tablet,delayed 40 mg PO DAILY@0630 05/20/23 release prazosin 2 mg capsule 4 mg PO BEDTIME 05/20/23 Allergies Allergy/AdvReac Type Severity Reaction Status Date / Time iron Allergy Mild UNKNOWN Verified 12/12/22 07:57 Iodinated Contrast Media Allergy Unknown UNKNOWN Verified 12/12/22 07:57 [IV Dye, Iodine Containing] iodine [IODINE] Allergy Unknown RASH Verified 12/12/22 07:57 SEAFOOD Allergy Unknown UNKNOWN Uncoded 05/06/22 11:06 Review of Systems 2 Review of Systems: Yes all other systems are reviewed and are negative [facility] Past Medical History Medical History Dysphagia Anxiety disorder GERD (gastroesophageal reflux disease) Migraines Asthma On beta jordyn at home Elevated cholesterol HTN (hypertension) Smoker Diabetes Depression Heartburn Surgical History Hx of left knee surgery History of tubal ligation History of esophagogastroduodenoscopy (EGD) H/O colonoscopy Hx of cholecystectomy Social History Social History Household Members: Children Alcohol intake: never Patient Tobacco Use Status: Current everyday Tobacco user Tobacco use type: Cigarette Cigarettes Per Day: 8 Second Hand Smoke Exposure: Yes Advance Directives: No Advance Directives Information Provided: Yes Patient : No Current occupational status: disabled Physical Exam ED Vital Signs: Vital Signs - 24 hr 05/20/23 01:28 05/20/23 04:58 Temperature 98.3 F 97.9 F Pulse Rate 66 71 Respiratory Rate 18 16 Blood Pressure 99/53 L 127/59 L Pulse Oximetry 97 100 Oxygen Delivery Method Room Air Room Air BMI result Body Mass Index 23.2 Appearance: Alert. Oriented X3. No acute distress. Eyes: No pallor ENT: Pharynx normal. Oral Mucosa dry Neck: Normal inspection. Neck supple. CVS: Normal heart rate and rhythm. Pulses normal. Respiratory: No respiratory distress. Equal air entry bilateral, no wheezing/rales/rhonchi Abdomen: Soft and nontender. Bowel sounds are present, no mass palpable, no CVA tenderness Skin: Skin warm and dry. Normal skin color. Normal skin turgor. Extremities: No lower extremity edema. No calf tenderness Neuro: Oriented X 3. No motor deficit. No sensory deficit.No cerebellar signs , cranial nerves II-XII intact Medications Administered Discontinued Medications Generic Name Dose Route Start Last Admin Trade Name Freq PRN Reason Stop Dose Admin Sodium Chloride 1,000 mls @ 999 mls/hr 05/20/23 01:28 05/20/23 02:55 Ns IV 05/20/23 02:28 Infused .Q1H1M ONE Infusion Sodium Chloride 1,000 mls @ 999 mls/hr 05/20/23 01:31 05/20/23 02:55 Ns IV 05/20/23 02:31 Infused .Q1H1M ONE Infusion Sodium Chloride 1,000 mls @ 999 mls/hr 05/20/23 03:01 05/20/23 03:30 Ns IV 05/20/23 04:01 Not Given .Q1H1M ONE Sodium Chloride 1,000 mls @ 999 mls/hr 05/20/23 03:01 05/20/23 04:30 Ns IV 05/20/23 04:01 Infused .Q1H1M ONE Infusion Insulin Glargine 20 unit 05/20/23 04:35 05/20/23 05:03 Insulin Glargine,Hum.Rec.Anlog 100 Unit/Ml 10 Ml Vial SUBCUT 05/20/23 04:36 20 unit ONCE ONE Administration Insulin Human Lispro 14 unit 05/20/23 02:38 05/20/23 03:20 Insulin Lispro 100 Unit/Ml 3 Ml Vial SUBCUT 05/20/23 02:39 14 unit ONCE ONE Administration Insulin Human Lispro 10 unit 05/20/23 04:46 05/20/23 05:03 Insulin Lispro 100 Unit/Ml 3 Ml Vial SUBCUT 05/20/23 04:47 10 unit ONCE ONE Administration Insulin Human Regular 10 unit 05/20/23 01:28 05/20/23 01:51 Insulin Regular, Human 100 Unit/Ml 3 Ml Vial IVPUSH 05/20/23 01:29 10 unit ONCE ONE Administration Medical Decision Making Medical Decision Making MDM Narrative: Patient with hyperglycemia secondary to non diet compliance not on any insulin received IV fluids multiple doses of insulin will admit patient for further management Differential Diagnosis Differential Diagnoses: The differential diagnosis associated with the presentation includes Hyperglycemia/sepsis/metabolic encephalopathy/hyponatremia/ketoacidosis Admission/Observation Consideration of admission/observation: Escalation of care including admission/observation considered Consult Healthcare Provider Management of the patient was discussed with: Hospitalist Lab Data [facility] Lab Attestation statement: I reviewed the patient's lab results. 05/20/23 01:46 05/20/23 03:46 Labs: Lab Results 05/20/23 05/20/23 05/20/23 Range/Units 01:46 02:23 02:26 WBC 7.6 (4.8-10.8) X10*3/uL RBC 3.14 L (4.20-5.50) X10*6/uL Hgb 9.6 L (12.0-16.0) g/dl Hct 26.7 L (37.0-47.0) % MCV 85.0 (80.0-98.0) fL MCH 30.6 (27.0-33.0) pg MCHC 36.0 H (31.0-35.0) g/dl RDW 11.8 (11.0-16.0) % Plt Count 320 (160-400) X10*3/uL MPV 10.8 (9.4-12.3) fL Immature Gran % (Auto) 3.5 H (0.0-0.4) % Neut % (Auto) 58.0 (45-73) % Lymph % (Auto) 29.2 (20-40) % [place] % (Auto) 8.0 (2-11) % Eos % (Auto) 0.8 (0-4) % Baso % (Auto) 0.5 (0-2) % Lymph # (Auto) 2.2 (1.2-4.9) X10*3/uL [place] # (Auto) 0.6 (0.1-1.2) X10*3/uL Eos # (Auto) 0.1 (0.0-0.4) X10*3/uL Baso # (Auto) 0.0 (0.0-0.2) X10*3/uL Abs Immat Gran (auto) 0.27 H (0.00-0.03) X10*3/uL Absolute Neuts (auto) 4.4 (2.0-8.3) x10*3/uL Absolute Nucleated RBC 0.000 (0.0-0.012) X10*3/uL Nucleated RBC % (auto) 0.0 (0.0-0.2) /100WBC Sodium 115 L* (135-145) mmol/L Potassium 4.8 (3.3-5.1) mmol/L Chloride 89 L (96-108) mmol/L Carbon Dioxide 17 L (22-29) mmol/L Anion Gap 14 (12-20) BUN 36 H (9-16) mg/dL Creatinine 2.35 H (0.5-1.4) mg/dL Estim Creat Clear Calc 21.9 Estimated GFR 21 POC Glucose > 600 H* > 600 H* > 600 H* (60-115) mg/dL Random Glucose 828 H* (60-115) mg/dL Calcium 9.5 (8.4-10.2) mg/dL Total Bilirubin 0.2 (0.0-1.0) mg/dL AST 6 (5-31) U/L ALT 7 (0-31) U/L Alkaline Phosphatase 243 H (39-117) U/L Total Protein 6.7 (6.5-8.0) g/dL Albumin 3.7 (3.5-5.0) g/dL Beta-Hydroxybutyrate 0.28 H (0.02-0.27) mmol/L Urine Color Urine Appearance Urine pH (5.0-9.0) Ur Specific [place] (1.005-1.025) Urine Protein (Neg-Trace) mg/dL Urine Glucose (UA) (Negative) mg/dL Urine Ketones (Negative) mg/dL Urine Blood (Negative) Urine Nitrite (Negative) Ur Leukocyte Esterase (Negative) Urine RBC (0-2) /HPF Urine WBC (0-5) /HPF Ur Squamous Epith Cells (0-2) /HPF Urine Bacteria (None Seen) Hyaline Casts (0-2) /LPF 05/20/23 05/20/23 05/20/23 Range/Units 03:19 03:28 03:46 WBC (4.8-10.8) X10*3/uL RBC (4.20-5.50) X10*6/uL Hgb (12.0-16.0) g/dl Hct (37.0-47.0) % MCV (80.0-98.0) fL MCH (27.0-33.0) pg MCHC (31.0-35.0) g/dl RDW (11.0-16.0) % Plt Count (160-400) X10*3/uL MPV (9.4-12.3) fL Immature Gran % (Auto) (0.0-0.4) % Neut % (Auto) (45-73) % Lymph % (Auto) (20-40) % [place] % (Auto) (2-11) % Eos % (Auto) (0-4) % Baso % (Auto) (0-2) % Lymph # (Auto) (1.2-4.9) X10*3/uL [place] # (Auto) (0.1-1.2) X10*3/uL Eos # (Auto) (0.0-0.4) X10*3/uL Baso # (Auto) (0.0-0.2) X10*3/uL Abs Immat Gran (auto) (0.00-0.03) X10*3/uL Absolute Neuts (auto) (2.0-8.3) x10*3/uL Absolute Nucleated RBC (0.0-0.012) X10*3/uL Nucleated RBC % (auto) (0.0-0.2) /100WBC Sodium 124 L (135-145) mmol/L Potassium 4.1 (3.3-5.1) mmol/L Chloride 99 (96-108) mmol/L Carbon Dioxide 16 L (22-29) mmol/L Anion Gap 13 (12-20) BUN 32 H (9-16) mg/dL Creatinine 1.96 H (0.5-1.4) mg/dL Estim Creat Clear Calc 26.4 Estimated GFR 26 POC Glucose 565 H* (60-115) mg/dL Random Glucose 532 H* (60-115) mg/dL Calcium 8.9 D (8.4-10.2) mg/dL Total Bilirubin (0.0-1.0) mg/dL AST (5-31) U/L ALT (0-31) U/L Alkaline Phosphatase (39-117) U/L Total Protein (6.5-8.0) g/dL Albumin (3.5-5.0) g/dL Beta-Hydroxybutyrate (0.02-0.27) mmol/L Urine Color Yellow Urine Appearance Clear Urine pH 5.5 (5.0-9.0) Ur Specific [place] 1.015 (1.005-1.025) Urine Protein Negative (Neg-Trace) mg/dL Urine Glucose (UA) >=1000 H (Negative) mg/dL Urine Ketones Negative (Negative) mg/dL Urine Blood Negative (Negative) Urine Nitrite Negative (Negative) Ur Leukocyte Esterase Negative (Negative) Urine RBC 0-2 (0-2) /HPF Urine WBC 0-5 (0-5) /HPF Ur Squamous Epith Cells 0-2 (0-2) /HPF Urine Bacteria None Seen (None Seen) Hyaline Casts 0-2 (0-2) /LPF 05/20/23 Range/Units 04:43 WBC (4.8-10.8) X10*3/uL RBC (4.20-5.50) X10*6/uL Hgb (12.0-16.0) g/dl Hct (37.0-47.0) % MCV (80.0-98.0) fL MCH (27.0-33.0) pg MCHC (31.0-35.0) g/dl RDW (11.0-16.0) % Plt Count (160-400) X10*3/uL MPV (9.4-12.3) fL Immature Gran % (Auto) (0.0-0.4) % Neut % (Auto) (45-73) % Lymph % (Auto) (20-40) % [place] % (Auto) (2-11) % Eos % (Auto) (0-4) % Baso % (Auto) (0-2) % Lymph # (Auto) (1.2-4.9) X10*3/uL [place] # (Auto) (0.1-1.2) X10*3/uL Eos # (Auto) (0.0-0.4) X10*3/uL Baso # (Auto) (0.0-0.2) X10*3/uL Abs Immat Gran (auto) (0.00-0.03) X10*3/uL Absolute Neuts (auto) (2.0-8.3) x10*3/uL Absolute Nucleated RBC (0.0-0.012) X10*3/uL Nucleated RBC % (auto) (0.0-0.2) /100WBC Sodium (135-145) mmol/L Potassium (3.3-5.1) mmol/L Chloride (96-108) mmol/L Carbon Dioxide (22-29) mmol/L Anion Gap (12-20) BUN (9-16) mg/dL Creatinine (0.5-1.4) mg/dL Estim Creat Clear Calc Estimated GFR POC Glucose 401 H* (60-115) mg/dL Random Glucose (60-115) mg/dL Calcium (8.4-10.2) mg/dL Total Bilirubin (0.0-1.0) mg/dL AST (5-31) U/L ALT (0-31) U/L Alkaline Phosphatase (39-117) U/L Total Protein (6.5-8.0) g/dL Albumin (3.5-5.0) g/dL Beta-Hydroxybutyrate (0.02-0.27) mmol/L Urine Color Urine Appearance Urine pH (5.0-9.0) Ur Specific [place] (1.005-1.025) Urine Protein (Neg-Trace) mg/dL Urine Glucose (UA) (Negative) mg/dL Urine Ketones (Negative) mg/dL Urine Blood (Negative) Urine Nitrite (Negative) Ur Leukocyte Esterase (Negative) Urine RBC (0-2) /HPF Urine WBC (0-5) /HPF Ur Squamous Epith Cells (0-2) /HPF Urine Bacteria (None Seen) Hyaline Casts (0-2) /LPF Critical Care Time Critical Care Time Critical Care Time: Yes Total Critical Care Time: 65 Attestation: The patient was critically ill with a high probability of imminent or life threatening deterioration. I spent greater than 70 minutes of discontinuous time evaluating the patient,delivering critical care at the bedside, discussing and evaluating pertinent data with consultants. Critical care time does not include time spent performing separately billable procedures or teaching. Total time spent performing critical care was 65 minutes. Discharge Plan Discharge Clinical Impression: Hyperosmolar hyperglycemic state (HHS), CAMPOS (acute kidney injury) Patient Disposition: Admitted As Inpatient
[2023-05-20 01:28] VITALS: BP 99/53; PULSE 66; RESP 18; TEMP 36.8; O2SAT 97; BMI 23.2
[2023-05-20] MEDS: Insulin Regular, Human 100 UNIT/ML 3 ML VIAL 10 UNIT IVPUSH (01:51)
[2023-05-20 01:52] LABS: MANUAL DIFF FLAG NO
[2023-05-20] MEDS: 0.9 % Sodium Chloride 1,000 ML 999 ML IV ×3 (01:54→03:30)
[2023-05-20 01:55] LABS: Basophils Percent Auto 0.5 % (0-2); Eosinophils Absolute Auto 0.1 X10*3/uL (0.0-0.4); Eosinophils Percent Auto 0.8 % (0-4); Hematocrit 26.7 % (37.0-47.0); Hemoglobin 9.6 g/dl (12.0-16.0); Imm Gran Abs Auto 0.27 X10*3/uL (0.00-0.03); Imm Gran Pct Auto 3.5 % (0.0-0.4); Lymphocytes Absolute Auto 2.2 X10*3/uL (1.2-4.9); Lymphocytes Percent Auto 29.2 % (20-40); Mean Corpuscular Hemoglobin 30.6 pg (27.0-33.0); Mean Platelet Volume 10.8 fL (9.4-12.3); Monocytes Absolute Auto 0.6 X10*3/uL (0.1-1.2); Neutrophils Absolute Auto 4.4 x10*3/uL (2.0-8.3); Platelet Count 320 X10*3/uL (160-400); Red Blood Count 3.14 X10*6/uL (4.20-5.50); Red Cell Distribution Width 11.8 % (11.0-16.0); White Blood Count 7.6 X10*3/uL (4.8-10.8)
[2023-05-20 02:31] LABS: Glucose, Whole Blood > 600 mg/dL (60-115)
[2023-05-20 02:31] LABS: Glucose, Whole Blood > 600 mg/dL (60-115)
[2023-05-20 02:32] LABS: Glucose, Whole Blood > 600 mg/dL (60-115)
[2023-05-20 02:34] LABS: Alanine Aminotransferase 7 U/L (0-31); Albumin Level 3.7 g/dL (3.5-5.0); Alkaline Phosphatase 243 U/L (39-117); Anion Gap 14 (12-20); Aspartate Amino Transferase 6 U/L (5-31); Beta-Hydroxybutyrate 0.28 mmol/L (0.02-0.27); Bilirubin Total 0.2 mg/dL (0.0-1.0); Blood Urea Nitrogen 36 mg/dL (9-16); Calcium 9.5 mg/dL (8.4-10.2); Carbon Dioxide 17 mmol/L (22-29); Chloride 89 mmol/L (96-108); Creatinine Clr Calc Pharmacy 21.9; Estimated Glomerular Filt Rate 21; Glucose Random 828 mg/dL (60-115); Potassium 4.8 mmol/L (3.3-5.1); Sodium 115 mmol/L (135-145); Total Protein 6.7 g/dL (6.5-8.0)
[2023-05-20] MEDS: Insulin Lispro 100 UNIT/ML 3 ML VIAL 14 UNIT SUBCUT (03:20)
[2023-05-20 03:35] LABS: Appearance Urine Clear; Color Urine Yellow; Glucose Urine UA >=1000 mg/dL (Negative); Leukocyte Esterase Urine Negative (Negative); Nitrite Urine Negative (Negative); PH 5.5 (5.0-9.0); Specific Gravity - Urine 1.015 (1.005-1.025); UMIC TRIGGER UACC YES; Urine Blood Negative (Negative); Urine Ketones Negative (Negative); Urine Protein Negative (Neg-Trace)
[2023-05-20 03:46] LABS: Bacteria Urine None Seen (None Seen); Hyaline Casts Urine 0-2 /LPF (0-2); RBC Urine 0-2 /HPF (0-2); Squamous Epithelial Cell Urine 0-2 /HPF (0-2); WBC Urine 0-5 /HPF (0-5)
[2023-05-20 04:15] LABS: Anion Gap 13 (12-20); Blood Urea Nitrogen 32 mg/dL (9-16); Calcium 8.9 mg/dL (8.4-10.2); Carbon Dioxide 16 mmol/L (22-29); Chloride 99 mmol/L (96-108); Creatinine Clr Calc Pharmacy 26.4; Estimated Glomerular Filt Rate 26; Glucose Random 532 mg/dL (60-115); Potassium 4.1 mmol/L (3.3-5.1); Sodium 124 mmol/L (135-145)
[2023-05-20 04:47] LABS: Glucose, Whole Blood 565 mg/dL (60-115)
[2023-05-20 04:47] LABS: Glucose, Whole Blood 401 mg/dL (60-115)
[2023-05-20 04:58] VITALS: BP 127/59; PULSE 71; RESP 16; TEMP 36.6; O2SAT 100
[2023-05-20] MEDS: Insulin Lispro 100 UNIT/ML 3 ML VIAL 10 UNIT SUBCUT (05:03)
[2023-05-20] MEDS: Insulin Glargine,Hum.rec.anlog 100 UNIT/ML 10 ML VIAL 20 UNIT SUBCUT (05:03)
--- NOTE | 2023-05-20 06:10 | PM.IMHP ---
History of Present Illness Date of Service: 05/20/23 Chief Complaint: High sugar levels Estonian-speaking only, this is a 58-year-old female with past medical history of diabetes, hypertension, hyperlipidemia, depression anxiety, comes into the hospital with complaints of having high glucose levels, as well as feeling headache, blurry vision. Patient reports that she is usually on metformin and an injectable once a week and is not on insulin. She reports that when she checks her sugars at home they are sometimes high. Reports intermittent chest pain that is not present at this time, denies any abdominal pain nausea or vomiting, no diarrhea , has constipation, no urinary symptoms and no lower extremity edema. On arrival to the ED patient was found to have a glucose of 828, anion gap was closed, creatinine of 2.35 with a baseline around 1.5, and corrected sodium of 128. Patient received 4 L of IV fluids, insulin, with improving sugars, but she remains to have CAMPOS an elevated glucose the knees further management Review of Systems Review of Systems: Yes all other systems are reviewed and are negative [facility] Medical History Dysphagia Anxiety disorder GERD (gastroesophageal reflux disease) Migraines Asthma On beta jordyn at home Elevated cholesterol HTN (hypertension) Smoker Diabetes Depression Heartburn Surgical History Hx of left knee surgery History of tubal ligation History of esophagogastroduodenoscopy (EGD) H/O colonoscopy Hx of cholecystectomy Social History Household Members: Children Alcohol intake: never Patient Tobacco Use Status: Current everyday Tobacco user Tobacco use type: Cigarette Cigarettes Per Day: 8 Second Hand Smoke Exposure: Yes Advance Directives: No Advance Directives Information Provided: Yes Patient : No Current occupational status: disabled Meds Allergies Allergy/AdvReac Type Severity Reaction Status Date / Time iron Allergy Mild UNKNOWN Verified 12/12/22 07:57 Iodinated Contrast Media Allergy Unknown UNKNOWN Verified 12/12/22 07:57 [IV Dye, Iodine Containing] iodine [IODINE] Allergy Unknown RASH Verified 12/12/22 07:57 SEAFOOD Allergy Unknown UNKNOWN Uncoded 05/06/22 11:06 Home Medications Medication Instructions Recorded Confirmed Last Taken Type alcohol swabs (Alcohol Prep Pads) 0 pad topical TID 04/21/22 08/29/22 Unknown History amlodipine 5 mg tablet 5 mg PO QPM 04/21/22 08/29/22 Unknown History aspirin 81 mg tablet,delayed 81 mg PO QAM 04/21/22 08/29/22 Unknown History release atorvastatin 20 mg tablet 20 mg PO BEDTIME 04/21/22 08/29/22 Unknown History benztropine 0.5 mg tablet 0.5 mg PO BID 04/21/22 08/29/22 Unknown History bupropion HCl 150 mg 24 hr tablet, 150 mg PO QAM 04/21/22 08/29/22 Unknown History extended release dulaglutide 1.5 mg/0.5 mL mg subcut QWEEK 04/21/22 08/29/22 Unknown History subcutaneous pen injector (Trulicity) fluoxetine 10 mg capsule 10 mg PO QAM 04/21/22 08/29/22 Unknown History fluticasone propionate 50 2 spray intranasal DAILY 04/21/22 08/29/22 Unknown History mcg/actuation nasal spray,suspension insulin syringe-needle U-100 0.5 #10 ea 04/21/22 08/29/22 Unknown History mL 30 gauge x 1/2 (UltiCare) losartan 50 mg tablet 50 mg PO QPM 04/21/22 08/29/22 Unknown History metformin 1,000 mg tablet 1,000 mg PO BID 04/21/22 08/29/22 Unknown History metoprolol succinate 50 mg 50 mg PO QAM 04/21/22 08/29/22 Unknown History tablet,extended release 24 hr mirtazapine 7.5 mg tablet 7.5 mg PO BEDTIME 04/21/22 08/29/22 Unknown History prazosin 2 mg capsule 2 mg PO BID 04/21/22 08/29/22 Unknown History ergocalciferol (vitamin D2) 1,250 1 cap PO QWEEK 05/06/22 08/29/22 Unknown History mcg (50,000 unit) capsule haloperidol 5 mg tablet 1 tab PO BID 05/06/22 08/29/22 Unknown History Physical Exam Vital Signs and Narrative: Vital Signs: Last Vital Signs Temp 97.9 F 05/20/23 04:58 Pulse 71 05/20/23 04:58 Resp 16 05/20/23 04:58 BP 127/59 L 05/20/23 04:58 Pulse Ox 100 05/20/23 04:58 O2 Del Method Room Air 05/20/23 04:58 BMI result Body Mass Index 23.2 Const: Other: Alert oriented x3 [place]ian-speaking only General: cooperative and no acute distress Orientation/consciousness: patient oriented x3 Eyes: General: appearance normal, both eyes and all related structures Resp: Effort & Inspection: normal respiratory effort Auscultation: clear to auscultation bilaterally Cardio: Rate: regular rate Rhythm: regular rhythm GI: Palpation (GI): Soft to palpation Auscultation: normal bowel sounds Skin: General skin exam: no rashes or lesions noted Neuro: General: patient oriented x3 Cognition (Neuro): normal cognition Extrem: General: Yes normal to inspection and Yes no pedal edema Results Labs 05/20/23 01:46 05/20/23 03:46 Labs: Laboratory Results - last 24 hr 05/20/23 05/20/23 05/20/23 01:46 02:23 02:26 MCV 85.0 MCH 30.6 MCHC 36.0 H RDW 11.8 Plt Count 320 MPV 10.8 Immature Gran % (Auto) 3.5 H Neut % (Auto) 58.0 Lymph % (Auto) 29.2 [place] % (Auto) 8.0 Eos % (Auto) 0.8 Baso % (Auto) 0.5 Lymph # (Auto) 2.2 [place] # (Auto) 0.6 Eos # (Auto) 0.1 Baso # (Auto) 0.0 Abs Immat Gran (auto) 0.27 H Absolute Neuts (auto) 4.4 Absolute Nucleated RBC 0.000 Nucleated RBC % (auto) 0.0 Anion Gap 14 Estim Creat Clear Calc 21.9 Estimated GFR 21 POC Glucose > 600 H* > 600 H* > 600 H* Random Glucose 828 H* Calcium 9.5 Total Bilirubin 0.2 AST 6 ALT 7 Alkaline Phosphatase 243 H Total Protein 6.7 Albumin 3.7 Beta-Hydroxybutyrate 0.28 H Urine Color Urine Appearance Urine pH Ur Specific [place] Urine Protein Urine Glucose (UA) Urine Ketones Urine Blood Urine Nitrite Ur Leukocyte Esterase Urine RBC Urine WBC Ur Squamous Epith Cells Urine Bacteria Hyaline Casts 05/20/23 05/20/23 05/20/23 03:19 03:28 03:46 MCV MCH MCHC RDW Plt Count MPV Immature Gran % (Auto) Neut % (Auto) Lymph % (Auto) [place] % (Auto) Eos % (Auto) Baso % (Auto) Lymph # (Auto) [place] # (Auto) Eos # (Auto) Baso # (Auto) Abs Immat Gran (auto) Absolute Neuts (auto) Absolute Nucleated RBC Nucleated RBC % (auto) Anion Gap 13 Estim Creat Clear Calc 26.4 Estimated GFR 26 POC Glucose 565 H* Random Glucose 532 H* Calcium 8.9 D Total Bilirubin AST ALT Alkaline Phosphatase Total Protein Albumin Beta-Hydroxybutyrate Urine Color Yellow Urine Appearance Clear Urine pH 5.5 Ur Specific [place] 1.015 Urine Protein Negative Urine Glucose (UA) >=1000 H Urine Ketones Negative Urine Blood Negative Urine Nitrite Negative Ur Leukocyte Esterase Negative Urine RBC 0-2 Urine WBC 0-5 Ur Squamous Epith Cells 0-2 Urine Bacteria None Seen Hyaline Casts 0-2 05/20/23 04:43 MCV MCH MCHC RDW Plt Count MPV Immature Gran % (Auto) Neut % (Auto) Lymph % (Auto) [place] % (Auto) Eos % (Auto) Baso % (Auto) Lymph # (Auto) [place] # (Auto) Eos # (Auto) Baso # (Auto) Abs Immat Gran (auto) Absolute Neuts (auto) Absolute Nucleated RBC Nucleated RBC % (auto) Anion Gap Estim Creat Clear Calc Estimated GFR POC Glucose 401 H* Random Glucose Calcium Total Bilirubin AST ALT Alkaline Phosphatase Total Protein Albumin Beta-Hydroxybutyrate Urine Color Urine Appearance Urine pH Ur Specific [place] Urine Protein Urine Glucose (UA) Urine Ketones Urine Blood Urine Nitrite Ur Leukocyte Esterase Urine RBC Urine WBC Ur Squamous Epith Cells Urine Bacteria Hyaline Casts Assessment and Plan (1) Hyperosmolar hyperglycemic state (HHS): Status: Acute (2) Poorly controlled diabetes mellitus: Status: Acute (3) CAMPOS (acute kidney injury): Status: Acute Plan 58-year-old female with past medical history of diabetes comes into the hospital with headache, blurry vision, found to have hyperglycemia # HHS - anion gap normal, no neurological deficits but has headache and change in vision - received multiple units of insulin as well as IV fluids with improvement - will continue insulin sliding scale - hold oral hypoglycemics - pending hemoglobin A1c - may need insulin at discharge - POC QIDACHS # uncontrolled diabetes - glucose in the 800s - will start her on sliding scale insulin - monitor glucose level - pending hemoglobin A1c # CAMPOS - likely secondary to volume loss - will treat with IV fluids - follow BMP # hyponatremia - pseudohyponatremia - secondary to hypovolemia in hyperglycemia - resolved # hypertension - stable - continue home antihypertensives # hyperlipidemia - continue statin # GERD - continue PPI DVT prophylaxis: early ambulation Time Spent With Patient Time: Total time managing care of this patient today ____ minutes. Quality Stroke Does the patient have a stroke diagnosis?: No VTE Prior VTE?: No VTE Risk Level:: Medical - low VTE Device Contraindication: Treatment Not Indicated VTE Drug Contraindication: Treatment Not Indicated
[2023-05-20 06:34] LABS: Glucose, Whole Blood 228 mg/dL (60-115)
[2023-05-20 07:31] VITALS: BP 120/69; PULSE 72; RESP 16; O2SAT 97
--- NOTE | 2023-05-20 07:34 | PC.NURSE ---
axox4; vss. pt denies pain; aware of plan of care denies questions/concerns at this time. call benitez within reach.
--- NOTE | 2023-05-20 07:48 | P.EN_ITS ---
Event Note Date of Service: 05/21/23 Event Note: Admitted this a.m. due to high sugar Ukrainian-speaking only, this is a 58-year-old female with past medical history of diabetes, hypertension, hyperlipidemia, depression anxiety, comes into the hospital with complaints of having high glucose levels, as well as feeling headache, blurry vision. Patient reports that she is usually on metformin and an injectable once a week On arrival to the ED patient was found to have a glucose of 828, anion gap was closed, creatinine of 2.35 with a baseline around 1.5, and corrected sodium of 128. Patient received 4 L of IV fluids, insulin, with improving sugars, but she remains to have CAMPOS an elevated glucose 58-year-old female with past medical history of diabetes comes into the hospital with headache, blurry vision, found to have hyperglycemia # HHS Diabetes mellitus with uncontrolled blood sugars at home - blood sugar improved from greater than 600-228, anion gap normal, no neurological deficits but has blurred vision continue insulin sliding scale, monitor blood sugars closely On metformin 1000 b.i.d. and Trulicity Q weekly at home pending hemoglobin A1c # CAMPOS - likely secondary to volume loss, continue IV fluids follow BMP - # hyponatremia - pseudohyponatremia, secondary to hyperglycemia, sodium improved from 115 to 124 follow BMP # hypotension blood pressure 70/42 on arrival now improved follow blood pressure hold antihypertensive on metoprolol 50 mg daily and Norvasc, resume metoprolol starting tomorrow # hyperlipidemia - continue statin # history of anxiety depression patient on antipsychotics Haldol, mirtazipine, fluoxetine and benztropine, resume home medication, hold prazosin due to hypotension # GERD - continue PPI Time Spent With Patient Time: Total time managing care of this patient today ____ minutes.
[2023-05-20 07:53] LABS: Estimated Average Glucose 309 mg/dL; Hemoglobin A1c % 12.4 % (<6.0)
--- NOTE | 2023-05-20 08:07 | PHA.MEDREC ---
Addendum entered by Yue Naranjo RPh 05/20/23 08:38: Patient reports that they have been taken off Trulicity due to adverse reactions Original Note: Pharmacy Consult ? Medication Reconciliation Pharmacy has completed the medication reconciliation. Utilized brake specialist services.
[2023-05-20 08:46] LABS: Glucose, Whole Blood 80 mg/dL (60-115)
[2023-05-20] MEDS: Aspirin Enteric Coated 81 MG TABLET.DR PO (09:37)
[2023-05-20] MEDS: Benztropine Mesylate 0.5 MG TABLET PO ×2 (09:37→21:06)
[2023-05-20] MEDS: FLUoxetine HCl 10 MG CAPSULE PO (09:37)
[2023-05-20] MEDS: HaloperidoL 5 MG TABLET PO ×2 (09:37→21:06)
[2023-05-20] MEDS: 0.9 % Sodium Chloride Flush 3 ML SYRINGE IVFLUSH ×2 (09:37→18:46)
[2023-05-20 14:08] LABS: Glucose, Whole Blood 175 mg/dL (60-115)
[2023-05-20] MEDS: Insulin Lispro 100 UNIT/ML 3 ML VIAL SUBCUT ×2 (14:42→21:06)
[2023-05-20 14:44] VITALS: BP 127/63; PULSE 72; RESP 16; O2SAT 100
--- NOTE | 2023-05-20 14:47 | PC.NURSE ---
poc 175 after pt ate 100% lunch. Dr. Valdes notified to question if coverage needed. pt medicated per sliding scale order per Dr. Valdes request. vss. call benitez within reach.
--- NOTE | 2023-05-20 15:31 | MHC.CM.PN ---
Attempted to meet w/Pt; she has not arrived on unit as of yet. Attempt also made to contact daughter, Rosemary. Sent to . Will re-approach upon Pt's arrival.
--- NOTE | 2023-05-20 15:59 | PC.NURSE ---
attempt to give report to [facility] beatrice Dong.
[2023-05-20 16:07] LABS: Glucose, Whole Blood 164 mg/dL (60-115)
--- NOTE | 2023-05-20 17:38 | PC.NURSE ---
report given to [facility] rn.
[2023-05-20 18:25] VITALS: BMI 25.2
[2023-05-20 18:28] VITALS: BP 131/64; PULSE 71; RESP 20; TEMP 37.2; O2SAT 97
[2023-05-20 18:31] LABS: Glucose, Whole Blood 192 mg/dL (60-115)
[2023-05-20 20:15] LABS: Glucose, Whole Blood 342 mg/dL (60-115)
[2023-05-20] MEDS: Mirtazapine 7.5 MG TABLET PO (21:06)
[2023-05-20] MEDS: Atorvastatin Calcium 20 MG TABLET PO (21:06)
[2023-05-21 03:30] VITALS: BP 140/71; PULSE 74; RESP 20; TEMP 36.9; O2SAT 98
[2023-05-21] MEDS: Omeprazole 20 MG CAPSULE.DR PO (05:39)
[2023-05-21] MEDS: 0.9 % Sodium Chloride Flush 3 ML SYRINGE IVFLUSH ×4 (05:40→20:36)
[2023-05-21 06:18] LABS: MANUAL DIFF FLAG NO
[2023-05-21 06:21] LABS: Basophils Absolute Auto 0.1 X10*3/uL (0.0-0.2); Basophils Percent Auto 0.6 % (0-2); Eosinophils Absolute Auto 0.1 X10*3/uL (0.0-0.4); Eosinophils Percent Auto 0.9 % (0-4); Hematocrit 27.1 % (37.0-47.0); Hemoglobin 9.5 g/dl (12.0-16.0); Imm Gran Abs Auto 0.15 X10*3/uL (0.00-0.03); Imm Gran Pct Auto 1.7 % (0.0-0.4); Lymphocytes Absolute Auto 3.4 X10*3/uL (1.2-4.9); Lymphocytes Percent Auto 38.6 % (20-40); Mean Corpuscular HGB Conc 35.1 g/dl (31.0-35.0); Mean Corpuscular Hemoglobin 30.4 pg (27.0-33.0); Mean Corpuscular Volume 86.6 fL (80.0-98.0); Mean Platelet Volume 10.9 fL (9.4-12.3); Monocytes Absolute Auto 0.5 X10*3/uL (0.1-1.2); Monocytes Percent Auto 5.2 % (2-11); Neutrophils Absolute Auto 4.6 x10*3/uL (2.0-8.3); Platelet Count 386 X10*3/uL (160-400); Red Blood Count 3.13 X10*6/uL (4.20-5.50); White Blood Count 8.7 X10*3/uL (4.8-10.8)
[2023-05-21 06:37] LABS: Anion Gap 9 (12-20); Blood Urea Nitrogen 20 mg/dL (9-16); Calcium 9.7 mg/dL (8.4-10.2); Carbon Dioxide 18 mmol/L (22-29); Chloride 108 mmol/L (96-108); Creatinine Clr Calc Pharmacy 40.6; Estimated Glomerular Filt Rate 39; Glucose Random 220 mg/dL (60-115); Potassium 4.3 mmol/L (3.3-5.1); Sodium 131 mmol/L (135-145)
[2023-05-21 07:17] LABS: Glucose, Whole Blood 221 mg/dL (60-115)
[2023-05-21 07:29] VITALS: BP 140/73; PULSE 69; RESP 20; TEMP 36.7; O2SAT 100
[2023-05-21] MEDS: Aspirin Enteric Coated 81 MG TABLET.DR PO (07:44)
[2023-05-21] MEDS: Insulin Lispro 100 UNIT/ML 3 ML VIAL SUBCUT ×4 (07:45→20:38)
[2023-05-21] MEDS: FLUoxetine HCl 10 MG CAPSULE PO (07:45)
[2023-05-21] MEDS: Benztropine Mesylate 0.5 MG TABLET PO ×2 (07:45→20:36)
[2023-05-21] MEDS: HaloperidoL 5 MG TABLET PO ×2 (07:45→20:37)
[2023-05-21] MEDS: Metoprolol Succinate ER 50 MG TAB.ER.24H PO (07:45)
--- NOTE | 2023-05-21 09:10 | MHC.CM.PN ---
Attempted to meet w/patient; she is iranian speaking. Will obtain tile professional assistance.
--- NOTE | 2023-05-21 09:13 | MHC.CM.PN ---
Connected w/clinical services consultant services; they will meet w/Pt and this CM today. Pending their arrival. CM to follow.
--- NOTE | 2023-05-21 09:56 | MHC.CM.PN ---
Met w/Pt w/[employer]. Lives w/daughter (who is also CULTURAL HISTORIAN), daughter drives her where she needs to go, no other previous services, owns a walker. D/C plan is return home w/daughter (CULTURAL HISTORIAN) via daughter. CM to follow.
[2023-05-21 11:57] LABS: Glucose, Whole Blood 299 mg/dL (60-115)
[2023-05-21 12:14] VITALS: BP 132/64; PULSE 74; RESP 20; TEMP 36.1; O2SAT 97
[2023-05-21 15:06] VITALS: BP 152/71; PULSE 75; RESP 20; TEMP 36.7; O2SAT 97
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
[2023-05-21 16:17] LABS: Glucose, Whole Blood 190 mg/dL (60-115)
[2023-05-21] MEDS: Enoxaparin Sodium 40 MG/0.4 ML SYRINGE SUBCUT (16:56)
[2023-05-21 19:22] VITALS: BP 165/82; PULSE 69; RESP 20; TEMP 36.7; O2SAT 99
[2023-05-21 20:08] LABS: Glucose, Whole Blood 297 mg/dL (60-115)
[2023-05-21] MEDS: Prazosin HCL 1 MG CAPSULE 2 MG PO (20:36)
[2023-05-21] MEDS: Insulin Glargine,Hum.rec.anlog 100 UNIT/ML 10 ML VIAL 10 UNIT SUBCUT (20:37)
[2023-05-21] MEDS: Atorvastatin Calcium 20 MG TABLET PO (20:37)
[2023-05-21] MEDS: Mirtazapine 7.5 MG TABLET PO (20:37)
[2023-05-22] VITALS: BP 114/55; PULSE 75; RESP 14; TEMP 36.9; O2SAT 97
[2023-05-22 04:00] VITALS: BP 156/80; PULSE 67; RESP 14; TEMP 36.9; O2SAT 99
[2023-05-22] MEDS: Omeprazole 20 MG CAPSULE.DR PO (05:21)
[2023-05-22 07:06] LABS: Anion Gap 11 (12-20); Blood Urea Nitrogen 19 mg/dL (9-16); Calcium 9.3 mg/dL (8.4-10.2); Carbon Dioxide 21 mmol/L (22-29); Chloride 102 mmol/L (96-108); Creatinine Clr Calc Pharmacy 43.2; Estimated Glomerular Filt Rate 42; Glucose Random 315 mg/dL (60-115); Potassium 4.2 mmol/L (3.3-5.1); Sodium 130 mmol/L (135-145)
[2023-05-22 08:00] VITALS: BP 146/66; PULSE 77; RESP 20; TEMP 36.9; O2SAT 99
[2023-05-22 08:29] LABS: Glucose, Whole Blood 362 mg/dL (60-115)
[2023-05-22] MEDS: 0.9 % Sodium Chloride Flush 3 ML SYRINGE IVFLUSH ×3 (09:09→21:02)
[2023-05-22] MEDS: Insulin Lispro 100 UNIT/ML 3 ML VIAL SUBCUT ×3 (09:09→21:02)
[2023-05-22] MEDS: FLUoxetine HCl 10 MG CAPSULE PO (09:41)
[2023-05-22] MEDS: Benztropine Mesylate 0.5 MG TABLET PO ×2 (09:41→21:01)
[2023-05-22] MEDS: HaloperidoL 5 MG TABLET PO ×2 (09:41→21:01)
[2023-05-22] MEDS: Metoprolol Succinate ER 50 MG TAB.ER.24H PO (09:41)
[2023-05-22] MEDS: Aspirin Enteric Coated 81 MG TABLET.DR PO (09:41)
[2023-05-22 12:24] LABS: Glucose, Whole Blood 267 mg/dL (60-115)
--- NOTE | 2023-05-22 14:05 | HO.PM.IMPN ---
Subjective Subjective Date of Service: 05/22/23 Interval History: This history was taken in [place] from the patient. BG 362 this AM feels well, denies dizziness Cr improved BP now slightly high Review of Systems Review of Systems: Yes all other systems are reviewed and are negative Physical Exam Vital Signs: Vital Signs: Last Vital Signs Temp 98.4 F 05/22/23 08:00 Pulse 77 05/22/23 08:00 Resp 20 05/22/23 08:00 BP 146/66 H 05/22/23 08:00 Pulse Ox 99 05/22/23 08:00 O2 Del Method Room Air 05/22/23 08:00 BMI result Body Mass Index 25.2 Gen: in no acute distress HEENT: sclera anicteric, moist mucus membranes Neck: supple Lungs: clear to auscultation bilaterally Heart: regular rate and rhythm, no murmurs Abd: soft, non-tender, non-distended Ext: no edema Skin: warm/well-perfused Neuro: alert and oriented x3, no focal findings Psych: appropriate affect Objective Data Active Medications Acetaminophen (Acetaminophen 325 Mg Tablet) 650 mg PO Q6H PRN PRN Reason: Pain, Mild (Pain Scale 1-3) Acetaminophen (Acetaminophen Supp 650 Mg Supp.Rect) 650 mg GA Q6H PRN PRN Reason: Pain, Mild (Pain Scale 1-3) Aspirin (Aspirin Enteric Coated 81 Mg Tablet.Dr) 81 mg PO DAILY [facility] Last Admin: 05/22/23 09:41 Dose: 81 mg Documented By: MICKEY Atorvastatin Calcium (Atorvastatin Calcium 20 Mg Tablet) 20 mg PO BEDTIME [facility] Last Admin: 05/21/23 20:37 Dose: 20 mg Documented By: LEANNE Benztropine Mesylate (Benztropine Mesylate 0.5 Mg Tablet) 0.5 mg PO BID [facility] Last Admin: 05/22/23 09:41 Dose: 0.5 mg Documented By: MICKEY Dextrose (Dextrose 50 % 25 Gm/50 Ml Syringe) 25 gm IVPUSH Q15M PRN; Protocol PRN Reason: per Hypoglycemia Standing Ord. Docusate Sodium (Docusate Sodium 100 Mg Capsule) 100 mg PO DAILY PRN PRN Reason: Constipation Enoxaparin Sodium (Enoxaparin Sodium 40 Mg/0.4 Ml Syringe) 40 mg SUBCUT Q24H [facility] Last Admin: 05/21/23 16:56 Dose: 40 mg Documented By: NIKKI Fluoxetine HCl (Fluoxetine Hcl 10 Mg Capsule) 10 mg PO DAILY [facility] Last Admin: 05/22/23 09:41 Dose: 10 mg Documented By: MICKEY Glucose (Glucose Gel 15 Gm Gel..Gram.) 15 gm PO Q15M PRN; Protocol PRN Reason: per Hypoglycemia Standing Ord. Haloperidol (Haloperidol 5 Mg Tablet) 5 mg PO BID [facility] Last Admin: 05/22/23 09:41 Dose: 5 mg Documented By: MICKEY Insulin Glargine (Insulin Glargine,Hum.Rec.Anlog 100 Unit/Ml 10 Ml Vial) 20 unit SUBCUT BEDTIME [facility] Insulin Human Lispro (Insulin Lispro 100 Unit/Ml 3 Ml Vial) 0 unit SUBCUT QIDACHS [facility]; Protocol Last Admin: 05/22/23 12:49 Dose: 1 unit Documented By: MICKEY Metoprolol Succinate (Metoprolol Succinate Er 50 Mg Tab.Er.24h) 50 mg PO DAILY [facility]; Protocol Last Admin: 05/22/23 09:41 Dose: 50 mg Documented By: MICKEY Mirtazapine (Mirtazapine 7.5 Mg Tablet) 7.5 mg PO BEDTIME [facility] Last Admin: 05/21/23 20:37 Dose: 7.5 mg Documented By: LEANNE Omeprazole (Omeprazole 20 Mg Capsule.) 20 mg PO DAILY@0630 [facility] Last Admin: 05/22/23 05:21 Dose: 20 mg Documented By: LEANNE Ondansetron HCl (Ondansetron Hcl 4 Mg/2 Ml Vial) 4 mg IVPUSH Q8H PRN PRN Reason: Nausea and Vomiting Prazosin HCl (Prazosin Hcl 1 Mg Capsule) 2 mg PO BEDTIME [facility]; Protocol Last Admin: 05/21/23 20:36 Dose: 2 mg Documented By: LEANNE Sodium Chloride (0.9 % Sodium Chloride Flush 3 Ml Syringe) 3 ml IVFLUSH QSHIFT [facility] Last Admin: 05/22/23 09:09 Dose: 3 ml Documented By: MICKEY Labs 05/21/23 05:54 05/22/23 06:23 Labs: Laboratory Results - last 24 hr 05/21/23 05/21/2305/22/23 16:12 20:01 06:23 Anion Gap 11 L Estim Creat Clear Calc 43.2 Estimated GFR 42 POC Glucose 190 H 297 H Random Glucose 315 H Calcium 9.3 05/22/23 05/22/23 08:17 11:33 Anion Gap Estim Creat Clear Calc Estimated GFR POC Glucose 362 H* 267 H Random Glucose Calcium Assessment and Plan (1) CAMPOS (acute kidney injury): Status: Acute (2) Poorly controlled diabetes mellitus: Status: Acute Plan d3 58yo F with DM2, HTN, HLD, mood disorder presenting with symptomatic hyperglycemia admitted for HHS, CAMPOS, hypotension HHS uncontrolled DM2, A1c 12.4 - improved with insulin; added Lantus and will increase dose. Pt off Trulicity due to side effects. Daughter [PLATE MILL MILL HAND] comfortable with giving pt Lantus prerenal CAMPOS - improving, off IV fluids, recheck BMP in AM; holding losartan hypotension - resumed metoprolol + prazosin; holding losartan + amlodipine # CAMPOS - likely secondary to volume loss, renal function improved DC IV fluids,follow BMP HLD - statin mood disorder - prazosin, haloperidol, mirtazapine, fluoxetine, benztropine GERD - PPI chronic normocytic anemia - H+H stable VTE ppx - LMWH dispo - anticipate home with VNA possibly tomorrow In my clinical judgment, the patient requires continued inpatient hospitalization for the following reasons: hyperglycemia, CAMPOS Time Spent With Patient Time: Total time managing care of this patient today __40__ minutes. Quality Stroke Does the patient have a stroke diagnosis?: No VTE Prior VTE?: No VTE Risk Level:: Medical - low VTE Device Contraindication: Treatment Not Indicated VTE Drug Contraindication: Treatment Not Indicated
[2023-05-22 15:20] VITALS: BP 135/76; PULSE 71; RESP 18; TEMP 36.9; O2SAT 99
[2023-05-22 15:54] LABS: Glucose, Whole Blood 64 mg/dL (60-115)
[2023-05-22 17:29] LABS: Glucose, Whole Blood 182 mg/dL (60-115)
[2023-05-22] MEDS: Enoxaparin Sodium 40 MG/0.4 ML SYRINGE SUBCUT (18:22)
[2023-05-22 19:15] VITALS: BP 141/68; PULSE 70; RESP 18; TEMP 37; O2SAT 100
[2023-05-22 20:08] LABS: Glucose, Whole Blood 341 mg/dL (60-115)
[2023-05-22] MEDS: Prazosin HCL 1 MG CAPSULE 2 MG PO (21:01)
[2023-05-22] MEDS: Insulin Glargine,Hum.rec.anlog 100 UNIT/ML 10 ML VIAL 20 UNIT SUBCUT (21:01)
[2023-05-22] MEDS: Atorvastatin Calcium 20 MG TABLET PO (21:01)
[2023-05-22] MEDS: Mirtazapine 7.5 MG TABLET PO (21:01)
--- NOTE | 2023-05-22 23:46 | PC.NURSE ---
Assumed care 19:15. Pt is A&Ox4. 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 Denies dizziness, h/a, vision changes. +pp/cms. Lungs CTA on RA. Denies chest pain and sob. Breathing is even and unlabored without distress. Tolerating diet w/o n/v. Independently ambulating in room, steady without issues. HS poc 341. Medicated per MAR. Safety checks performed. Handoff report given 23:30.
[2023-05-23 03:09] VITALS: BP 160/80; PULSE 72; RESP 20; TEMP 36.2; O2SAT 99
[2023-05-23] MEDS: Omeprazole 20 MG CAPSULE.DR PO (05:40)
[2023-05-23 07:27] VITALS: BP 131/80; PULSE 62; RESP 20; TEMP 36.2; O2SAT 98
[2023-05-23 07:33] LABS: Glucose, Whole Blood 179 mg/dL (60-115)
[2023-05-23 07:44] LABS: Anion Gap 12 (12-20); Blood Urea Nitrogen 18 mg/dL (9-16); Calcium 9.6 mg/dL (8.4-10.2); Carbon Dioxide 20 mmol/L (22-29); Chloride 108 mmol/L (96-108); Creatinine Clr Calc Pharmacy 49.6; Estimated Glomerular Filt Rate 49; Glucose Random 169 mg/dL (60-115); Potassium 4.3 mmol/L (3.3-5.1); Sodium 136 mmol/L (135-145)
[2023-05-23] MEDS: Insulin Lispro 100 UNIT/ML 3 ML VIAL SUBCUT ×2 (07:46→12:26)
[2023-05-23] MEDS: Aspirin Enteric Coated 81 MG TABLET.DR PO (07:49)
[2023-05-23] MEDS: FLUoxetine HCl 10 MG CAPSULE PO (07:49)
[2023-05-23] MEDS: Metoprolol Succinate ER 50 MG TAB.ER.24H PO (07:49)
[2023-05-23] MEDS: Benztropine Mesylate 0.5 MG TABLET PO (07:50)
[2023-05-23] MEDS: 0.9 % Sodium Chloride Flush 3 ML SYRINGE IVFLUSH (07:50)
[2023-05-23] MEDS: HaloperidoL 5 MG TABLET PO (07:50)
[2023-05-23 11:45] LABS: Glucose, Whole Blood 215 mg/dL (60-115)
--- NOTE | 2023-05-23 12:39 | PM.DS ---
DS: Providers Provider Date of Service: 05/23/23 Date of admission: 05/20/23 06:05 Date of discharge: 05/23/23 Primary care physician: Nolan Blevins MD DS: Diagnosis Discharge Diagnosis (1) CAMPOS (acute kidney injury): Status: Acute (2) Poorly controlled diabetes mellitus: Status: Acute (3) Hyperosmolar hyperglycemic state (HHS): Status: Acute (4) Hypotension: Status: Acute DS: Summary Hospital Course Hospital Course: from admission H+P by hospitalist Rosemary Godo MD, 05/20/23: Mauritian-speaking only, this is a 58-year-old female with past medical history of diabetes, hypertension, hyperlipidemia, depression anxiety, comes into the hospital with complaints of having high glucose levels, as well as feeling headache, blurry vision. Patient reports that she is usually on metformin and an injectable once a week and is not on insulin. She reports that when she checks her sugars at home they are sometimes high. Reports intermittent chest pain that is not present at this time, denies any abdominal pain nausea or vomiting, no diarrhea , has constipation, no urinary symptoms and no lower extremity edema. On arrival to the ED patient was found to have a glucose of 828, anion gap was closed, creatinine of 2.35 with a baseline around 1.5, and corrected sodium of 128. Patient received 4 L of IV fluids, insulin, with improving sugars, but she remains to have CAMPOS an elevated glucose... 58yo F with DM2, HTN, HLD, mood disorder; presenting with symptomatic hyperglycemia; admitted for HHS, CAMPOS, hypotension. Hospital course by problem: HHS uncontrolled DM2, A1c 12.4 - improved with IV then subsutaneous insulin; added Lantus and increased dose to 20 units qhs. [Pt off Trulicity since early March due to side effects.] Daughter [EMERGENCY MEDICAL SERVICE MANAGER] comfortable with giving pt Lantus. prerenal CAMPOS - improved with IV fluid hydration; serum creatinine normalized hypotension - initially held losartan and amlodipine, and prazosin dose decreased. Became hypertensive and all antihypertensives resumed upon discharge. She was discharged home in the care of her daughter/EMERGENCY MEDICAL SERVICE MANAGER and should follow-up with her PCP in 1 week. Time Spent with Patient Time attestation: Total time managing care of this patient today __35__ minutes. Discharge coordination time: Greater than 30 minutes Quality: Safe Use of Opioids Does Pt have an Active Cancer Diagnosis on the Problem List?: No Quality: Stroke Does the patient have a stroke diagnosis?: No Physical Exam Vital Signs: Vital Signs: Last Vital Signs Temp 97.2 F 05/23/23 07:27 Pulse 62 05/23/23 07:27 Resp 20 05/23/23 07:27 BP 131/80 05/23/23 07:27 Pulse Ox 98 05/23/23 07:27 O2 Del Method Room Air 05/23/23 07:27 BMI result Body Mass Index 25.2 Gen: in no acute distress HEENT: sclera anicteric, moist mucus membranes Neck: supple Lungs: clear to auscultation bilaterally Heart: regular rate and rhythm, no murmurs Abd: soft, non-tender, non-distended Ext: no edema Skin: warm/well-perfused Neuro: alert and oriented x3, no focal findings Psych: appropriate affect DS: Data Data Completed and Pending Completed studies during hospitalization [Text1]: Laboratory Results WBC 8.7 X10*3/uL (4.8-10.8) 05/21/23 05:54 RBC 3.13 X10*6/uL (4.20-5.50) L 05/21/23 05:54 Hgb 9.5 g/dl (12.0-16.0) L 05/21/23 05:54 Hct 27.1 % (37.0-47.0) L 05/21/23 05:54 MCV 86.6 fL (80.0-98.0) 05/21/23 05:54 MCH 30.4 pg (27.0-33.0) 05/21/23 05:54 MCHC 35.1 g/dl (31.0-35.0) H 05/21/23 05:54 RDW 12.0 % (11.0-16.0) 05/21/23 05:54 Plt Count 386 X10*3/uL (160-400) 05/21/23 05:54 MPV 10.9 fL (9.4-12.3) 05/21/23 05:54 Immature Gran % (Auto) 1.7 % (0.0-0.4) H 05/21/23 05:54 Neut % (Auto) 53.0 % (45-73) 05/21/23 05:54 Lymph % (Auto) 38.6 % (20-40) 05/21/23 05:54 [place] % (Auto) 5.2 % (2-11) 05/21/23 05:54 Eos % (Auto) 0.9 % (0-4) 05/21/23 05:54 Baso % (Auto) 0.6 % (0-2) 05/21/23 05:54 Lymph # (Auto) 3.4 X10*3/uL (1.2-4.9) 05/21/23 05:54 [place] # (Auto) 0.5 X10*3/uL (0.1-1.2) 05/21/23 05:54 Eos # (Auto) 0.1 X10*3/uL (0.0-0.4) 05/21/23 05:54 Baso # (Auto) 0.1 X10*3/uL (0.0-0.2) 05/21/23 05:54 Abs Immat Gran (auto) 0.15 X10*3/uL (0.00-0.03) H 05/21/23 05:54 Absolute Neuts (auto) 4.6 x10*3/uL (2.0-8.3) 05/21/23 05:54 Absolute Nucleated RBC 0.000 X10*3/uL (0.0-0.012) 05/21/23 05:54 Nucleated RBC % (auto) 0.0 /100WBC (0.0-0.2) 05/21/23 05:54 Sodium 136 mmol/L (135-145) 05/23/23 06:49 Potassium 4.3 mmol/L (3.3-5.1) 05/23/23 06:49 Chloride 108 mmol/L (96-108) 05/23/23 06:49 Carbon Dioxide 20 mmol/L (22-29) L 05/23/23 06:49 Anion Gap 12 (12-20) 05/23/23 06:49 BUN 18 mg/dL (9-16) H 05/23/23 06:49 Creatinine 1.13 mg/dL (0.5-1.4) 05/23/23 06:49 Estim Creat Clear Calc 49.6 05/23/23 06:49 Estimated GFR 49 05/23/23 06:49 POC Glucose 215 mg/dL (60-115) H 05/23/23 11:40 Random Glucose 169 mg/dL (60-115) H 05/23/23 06:49 Estimat Average Glucose 309 mg/dL 05/20/23 06:33 Hemoglobin A1c % 12.4 % (<6.0) H 05/20/23 06:33 Calcium 9.6 mg/dL (8.4-10.2) 05/23/23 06:49 Total Bilirubin 0.2 mg/dL (0.0-1.0) 05/20/23 01:46 AST 6 U/L (5-31) 05/20/23 01:46 ALT 7 U/L (0-31) 05/20/23 01:46 Alkaline Phosphatase 243 U/L (39-117) H 05/20/23 01:46 Total Protein 6.7 g/dL (6.5-8.0) 05/20/23 01:46 Albumin 3.7 g/dL (3.5-5.0) 05/20/23 01:46 Beta-Hydroxybutyrate 0.28 mmol/L (0.02-0.27) H 05/20/23 01:46 Urine Color Yellow 05/20/23 03:28 Urine Appearance Clear 05/20/23 03:28 Urine pH 5.5 (5.0-9.0) 05/20/23 03:28 Ur Specific [place] 1.015 (1.005-1.025) 05/20/23 03:28 Urine Protein Negative mg/dL (Neg-Trace) 05/20/23 03:28 Urine Glucose (UA) >=1000 mg/dL (Negative) H 05/20/23 03:28 Urine Ketones Negative mg/dL (Negative) 05/20/23 03:28 Urine Blood Negative (Negative) 05/20/23 03:28 Urine Nitrite Negative (Negative) 05/20/23 03:28 Ur Leukocyte Esterase Negative (Negative) 05/20/23 03:28 Urine RBC 0-2 /HPF (0-2) 05/20/23 03:28 Urine WBC 0-5 /HPF (0-5) 05/20/23 03:28 Ur Squamous Epith Cells 0-2 /HPF (0-2) 05/20/23 03:28 Urine Bacteria None Seen (None Seen) 05/20/23 03:28 Hyaline Casts 0-2 /LPF (0-2) 05/20/23 03:28 Discharge Plan Discharge Patient Disposition: Home, Self-Care Discharge Diagnosis: hyperglycemic hyperosmolar syndrome due to uncontrolled type 2 diabetes acute kidney injury, resolved Referrals: Name,MD Nolan [Primary Care Provider] - 1 Week Discharge Medications: New insulin glargine [Lantus Solostar U-100 Insulin] 100 unit/mL (3 mL) insulin pen 20 unit subcut QPM Qty: 15 3RF (DME) pen needle, diabetic 32 gauge x 3/16 needle See Rx Instructions .Route Qty: 100 0RF Rx Instructions: As directed Continued ergocalciferol (vitamin D2) 1,250 mcg (50,000 unit) capsule 1 cap PO GUERRA@0900 haloperidol 5 mg tablet 1 tab PO BID losartan 25 mg tablet 25 mg PO DAILY prazosin 2 mg capsule 4 mg PO BEDTIME amlodipine 5 mg tablet 5 mg PO BEDTIME pantoprazole 40 mg tablet,delayed release (DR/EC) 40 mg PO DAILY@0630 Centrum Silver Women 8 mg iron-400 mcg-50 mcg Tablet 1 tab PO DAILY mirtazapine 7.5 mg tablet 7.5 mg PO BEDTIME prazosin 2 mg capsule 2 mg PO DAILY fluoxetine 10 mg capsule 10 mg PO DAILY metformin 1,000 mg tablet 1,000 mg PO BID aspirin 81 mg tablet,delayed release (DR/EC) 81 mg PO DAILY metoprolol succinate 50 mg tablet extended release 24 hr 50 mg PO DAILY benztropine 0.5 mg tablet 0.5 mg PO BID atorvastatin 20 mg tablet 20 mg PO BEDTIME (DME) insulin syringe-needle U-100 [UltiCare] 0.5 mL 30 gauge x 1/2 syringe See Rx Instructions .ROUTE DAILY Qty: 10 Rx Instructions: As directed Discharge Orders: Discharge Order (Routine); Ordered 05/23/23 Ordered By: Salma Rider Diet: Diabetic diet Activity on Discharge: As tolerated Stand Alone Forms: Patient Portal Discharge page Care Plan Goals: avoid complications of diabetes Health Concerns: hyperglycemic hyperosmolar syndrome due to uncontrolled type 2 diabetes acute kidney injury, resolved Plan of Treatment: start using Lantus pen, 20 units at bedtime check blood glucose every morning before breakfast Mediterranean diet exercise Please follow up with your primary care doctor within 1 week. Return to the hospital if you experience recurrent or worsening symptoms. Assessment: See Discharge Summary. Patient Instructions: Mediterranean Diet (DC), Diabetes and Exercise (DC)
--- NOTE | 2023-05-23 12:43 | MHC.CM.PN ---
Patient has been medically cleared for dc to home today, self care.
--- NOTE | 2023-05-23 13:50 | MHC.CM.PN ---
Patient will dc to home today at 2:15 PM, via [facility] Shuttle.
== END 2023-05-23 14:21 | disposition home or self-care (01) ==
LOC: HO.ED 02:10 → HO.EDOVER 06:12 → HO.IMC 14:58
PROVIDERS: Hospitalist; Admitting Provider Internal Medicine; Emergency Provider Internal Medicine; PCP Internal Medicine Geriatric Medicine; Visit Provider Family Medicine
DX: N17.8 Other acute kidney failure (principal); E11.65 Type 2 diabetes mellitus with hyperglycemia; E11.00 Type 2 diabetes mellitus with hyperosmolarity without nonketotic hyperglycemic-hyperosmolar coma (NKHHC); I95.9 Hypotension, unspecified; I10 Essential (primary) hypertension; E87.1 Hypo-osmolality and hyponatremia; E78.5 Hyperlipidemia, unspecified; D64.9 Anemia, unspecified
CPT/HCPCS: 36415; 80048; 80053; 81001; 82010; 82947; 83036; 85025; 96361; 96372; 96374; 99222; 99285; J1650

== ENCOUNTER → 2023-05-20 06:05 | Outpatient (BNV) | payer MEDICAID, SELFPAY | PROVIDERS: Admitting Provider Internal Medicine; Emergency Provider Internal Medicine; Visit Provider Internal Medicine | DX: N17.9 Acute kidney failure, unspecified (principal); E11.65 Type 2 diabetes mellitus with hyperglycemia; E11.00 Type 2 diabetes mellitus with hyperosmolarity without nonketotic hyperglycemic-hyperosmolar coma (NKHHC); I95.9 Hypotension, unspecified | CPT/HCPCS: 99222; 99232; 99233; 99239; 99499 ==

== ENCOUNTER 2023-07-10 10:44 | Outpatient (REF) | payer MEDICAID, SELFPAY ==
[2023-07-10 12:46] LABS: Anion Gap 15 (12-20); Blood Urea Nitrogen 16 mg/dL (9-16); Calcium 9.5 mg/dL (8.4-10.2); Carbon Dioxide 25 mmol/L (22-29); Chloride 105 mmol/L (96-108); Estimated Glomerular Filt Rate 45; Glucose Random 158 mg/dL (60-115); Potassium 4.3 mmol/L (3.3-5.1); Sodium 141 mmol/L (135-145)
== END 2023-07-10 10:45 | disposition home or self-care (01) ==
LOC: HO.HHCL 10:44
PROVIDERS: Visit Provider Internal Medicine Geriatric Medicine
DX: N17.9 Acute kidney failure, unspecified (principal)
CPT/HCPCS: 36415; 80048

== ENCOUNTER 2023-09-12 08:28 | Outpatient (AMB) | payer MEDICAID, SELFPAY ==
--- NOTE | 2023-09-12 08:33 | A.OFFVIS_ITS ---
Intake Vital Signs 09/12/23 08:44 Weight 149 lb BP 144/69 H Blood Pressure Location Lt brachial Position Sitting Pulse 70 Intake Visit Reasons: 2 Month Follow up and Difficulty swallowing Intake Note: Patient follow up for difficulty swallowing. Patient cc: swallowing problems, abdominal pain with bloating, constipation she is been more than 3 weeks with out any BM and acid reflex with burning sensation. Sales And Service Technician Required: Yes Sales And Service Technician Name: [facility] Interpeter Accompanied by: Daughter Allergies iron Allergy (Mild, Verified 09/12/23 08:33) UNKNOWN Iodinated Contrast Media [IV Dye, Iodine Containing] Allergy (Unknown, Verified 09/12/23 08:33) UNKNOWN iodine [IODINE] Allergy (Unknown, Verified 09/12/23 08:33) RASH SEAFOOD Allergy (Unknown, Uncoded 05/06/22 11:06) UNKNOWN Medication List - Last Reconciled 09/12/23 by Lucy Frias PA-C amlodipine 5 mg PO BEDTIME aspirin 81 mg PO DAILY atorvastatin 20 mg PO BEDTIME benztropine 0.5 mg PO BID ergocalciferol (vitamin D2) 1 cap PO GUERRA@0900 fluoxetine 10 mg PO DAILY haloperidol 1 tab PO BID insulin glargine (Lantus Solostar U-100 Insulin) 20 units (0.2 mL) subcut QPM insulin syringe-needle U-100 (UltiCare) As directed losartan 25 mg PO DAILY metformin 1,000 mg PO BID metoprolol succinate ER 50 mg PO DAILY mirtazapine 7.5 mg PO BEDTIME yaunosar-kyj-bogz-FA-vit K-lut 8 mg iron-400 mcg-50 mcg (Centrum Silver Women) 1 tab PO DAILY pantoprazole 40 mg PO QAM pen needle, diabetic As directed prazosin 4 mg PO BEDTIME prazosin 2 mg PO DAILY HPI HPI Comments History of Present Illness Details Here with her daughter who is her CENTER MGR A 58 y/o female globus/ last EGD- 08/2022- We had educated her on eating slowly small portions at a time chewing well, she is known to have ill-fitting dentures. She says she has not been able to have any changes. She has no lower dentures His she as well as her daughter say that she smokes ?a lot? -complaints of odynophagia throat dryness. She does have postnasal drip. She has not taken panoprazole-in a few months- she had not reported it- appetite- not great- her daughter says it just has not been included in her pharmacy orders. This is somewhat unclear She was admitted due to issues with DM- her CENTER MGR/ daughter had dc'd her insulin as she thought it was giving her symptoms. At that time she had had some nausea and vomiting Constipation- life long-no remedy- recreational therapy technician gave her something that did not work- She has upcoming appointment with PCP this month- Appetite is fair, she does have acid reflux, she does get nausea/water brash. No abdominal pain hematemesis or hematochezia. She has had no fever or chills Many family members upper respiratory symptoms-reportedly COVID negative [facility] Medical History Dysphagia Anxiety disorder GERD (gastroesophageal reflux disease) Migraines Asthma On beta jordyn at home Elevated cholesterol HTN (hypertension) Smoker Diabetes Depression Heartburn Surgical History Hx of left knee surgery History of tubal ligation History of esophagogastroduodenoscopy (EGD) H/O colonoscopy Hx of cholecystectomy Social History Household Members: Family Housing: Apartment Alcohol intake: never Patient Tobacco Use Status: Current everyday Tobacco user Tobacco use type: Cigarette Cigarettes Per Day: 6 Second Hand Smoke Exposure: Yes service: No Current occupational status: disabled Review of Systems Const All systems reviewed & are unremarkable except as noted in HPI and below Card Denies chest pain and Denies dyspnea Resp Denies chest congestion, Reports cough, Denies hemoptysis, Denies dyspnea and Denies wheezing GI Denies abdominal pain, Denies bloating, Denies hematochezia, Reports constipation, Reports heartburn, Denies diarrhea, Reports nausea, Denies vomiting and Reports other (Waterbrash) Psych Reports depression, Denies homicidal ideation and Denies suicidal ideation Aller/Immun Denies wheezing Physical Exam Vital Signs: Last Vital Signs Pulse 70 09/12/23 08:44 BP 144/69 H 09/12/23 08:44 Const General: cooperative and comfortable Orientation/consciousness: patient oriented x3 Limitations: language barrier Eyes Sclerae: sclerae normal Resp Effort & Inspection: normal respiratory effort and able to speak in complete sentences Auscultation: clear to auscultation bilaterally, no rales, no rhonchi and no wheezes Cardio Rate: regular rate Rhythm: regular rhythm Heart sounds: S1 normal heart sound present and S2 normal heart sound present GI Palpation (GI): Soft to palpation and nontender Percussion: Yes normal to percussion Auscultation: normal bowel sounds Skin General skin exam: no rashes or lesions noted Neuro General: patient oriented x3 Extrem General: Yes full ROM Psych Affect: Labile affect present Attitude: cooperative Assessment & Plan Assessment & Plan (1) Poorly controlled diabetes mellitus: Comment: Daughter/CENTER MGR speaks for her Has not been following prescribed medications as ordered Code(s): E11.65 - Type 2 diabetes mellitus with hyperglycemia Plan: Reinforce importance following medication as prescribed (2) Odynophagia: Comment: PND reflux no ppi x several months Smoker Code(s): R13.10 - Dysphagia, unspecified Plan: Discussed smoke cessation with PCP Well hydrated Treat URI symptoms (3) Heartburn: Comment: diabetes, smokes, heartburn. PPI QD Reinforce avoidance of culprits - To include caffeine and nicotine.. Code(s): R12 - Heartburn Plan: pantoprazole 40 mg QD- refilled- reenforced (4) Chronic constipation: Comment: Maintain high-fiber diet Consistent Bowel regimen Code(s): K59.09 - Other constipation Plan pantoprazole 40 mg QD- Medications: New docusate sodium (Colace) 200 mg (2 x 100 mg) PO BEDTIME 60 caps 5RF bisacodyl (Dulcolax (bisacodyl)) 10 mg [place] DAILY PRN 20 ea 2RF constipation polyethylene glycol 3350 (Miralax) 17 grams PO DAILY 30 days 510 grams 6RF Changed From pantoprazole 40 mg PO QAM 90 tabs 0RF To pantoprazole 40 mg PO QAM 30 days 30 tabs 11RF Patient Instructions: In continue to chew well eat slowly small portions Reflux precautions avoidance of culprits Encouraged pantoprazole 40 mg QD- refilled- reenforced consistency Maintain high-fiber diet Bowel regimen Colace 200 mg as well with MiraLax q.h.s. May use suppository as needed if no adequate BM 3 days Reinforced importance of follow through with PCP Again discussed importance of following plan for prescribed medications Should not discontinue routine medications without advice prescriber/provider Encouraged to call with any questions or concerns Coding Level of Care Code Tele Est Pt Level 4 (72355) Diagnoses Poorly controlled diabetes mellitus E11.65 Odynophagia R13.10 Heartburn R12 Chronic constipation K59.09 Time Spent (min) 30 Comment nursing technician
[2023-09-12 08:44] VITALS: BP 144/69; PULSE 70
== END 2023-09-12 09:11 | disposition home or self-care (01) ==
PROVIDERS: PCP Internal Medicine Geriatric Medicine; Visit Provider Physician Assistant
DX: E11.65 Type 2 diabetes mellitus with hyperglycemia (principal); R13.10 Dysphagia, unspecified; R12 Heartburn; K59.09 Other constipation
CPT/HCPCS: 99214

== ENCOUNTER → 2023-09-12 08:28 | Outpatient (BNVA) | payer MEDICAID, SELFPAY | PROVIDERS: PCP Internal Medicine Geriatric Medicine; Visit Provider Physician Assistant | DX: R13.10 Dysphagia, unspecified (principal); R12 Heartburn; K59.09 Other constipation; E11.65 Type 2 diabetes mellitus with hyperglycemia; Z79.899 Other long term (current) drug therapy | CPT/HCPCS: 99212 ==

== ENCOUNTER 2023-11-14 10:22 | Outpatient (REF) | payer MEDICAID, SELFPAY ==
[2023-11-14 11:38] LABS: MANUAL DIFF FLAG NO
[2023-11-14 11:41] LABS: Basophils Percent Auto 0.5 % (0-2); Eosinophils Absolute Auto 0.1 X10*3/uL (0.0-0.4); Eosinophils Percent Auto 0.8 % (0-4); Hematocrit 34.2 % (37.0-47.0); Hemoglobin 11.5 g/dl (12.0-16.0); Imm Gran Abs Auto 0.03 X10*3/uL (0.00-0.03); Imm Gran Pct Auto 0.5 % (0.0-0.4); Lymphocytes Absolute Auto 2.4 X10*3/uL (1.2-4.9); Lymphocytes Percent Auto 39.8 % (20-40); Mean Corpuscular HGB Conc 33.6 g/dl (31.0-35.0); Mean Corpuscular Hemoglobin 29.3 pg (27.0-33.0); Mean Platelet Volume 10.6 fL (9.4-12.3); Monocytes Absolute Auto 0.5 X10*3/uL (0.1-1.2); Monocytes Percent Auto 7.9 % (2-11); Neutrophils Percent Auto 50.5 % (45-73); Platelet Count 440 X10*3/uL (160-400); Red Blood Count 3.93 X10*6/uL (4.20-5.50); Red Cell Distribution Width 13.4 % (11.0-16.0)
[2023-11-14 13:14] LABS: Microalbum/Creatinine Ratio Ur 1250.7 ug/mg cr (<30)
[2023-11-14 14:49] LABS: Alanine Aminotransferase 10 U/L (0-31); Albumin Level 4.1 g/dL (3.5-5.0); Alkaline Phosphatase 173 U/L (39-117); Aspartate Amino Transferase 14 U/L (5-31); Bilirubin Total 0.4 mg/dL (0.0-1.0); Blood Urea Nitrogen 14 mg/dL (9-16); Calcium 9.8 mg/dL (8.4-10.2); Carbon Dioxide 22 mmol/L (22-29); Chloride 101 mmol/L (96-108); Cholesterol 149 mg/dL (<200); Estimated Glomerular Filt Rate 51; Glucose Random 104 mg/dL (60-115); HDL Cholesterol 48 mg/dL (>40); LDL Cholesterol Calculated 76 mg/dL (<100); Potassium 4.8 mmol/L (3.3-5.1); Sodium 132 mmol/L (135-145); Total Protein 7.9 g/dL (6.5-8.0); Triglycerides 126 mg/dL (<150)
[2023-11-14 15:38] LABS: Anion Gap 14 (12-20)
== END 2023-11-14 10:23 | disposition home or self-care (01) ==
LOC: HO.HHCL 10:22
PROVIDERS: Visit Provider Internal Medicine Geriatric Medicine
DX: E11.65 Type 2 diabetes mellitus with hyperglycemia (principal); E11.69 Type 2 diabetes mellitus with other specified complication; F33.0 Major depressive disorder, recurrent, mild; R44.0 Auditory hallucinations; Z86.2 Personal history of diseases of the blood and blood-forming organs and certain disorders involving the immune mechanism
CPT/HCPCS: 36415; 80053; 80061; 82043; 82570; 85025

== ENCOUNTER 2024-02-06 11:14 | Outpatient (REF) | payer MEDICAID, SELFPAY ==
[2024-02-06 14:01] LABS: Anion Gap 14 (12-20); Blood Urea Nitrogen 14 mg/dL (9-16); Calcium 9.4 mg/dL (8.4-10.2); Carbon Dioxide 20 mmol/L (22-29); Chloride 103 mmol/L (96-108); Estimated Glomerular Filt Rate 59; Glucose Random 70 mg/dL (60-115); Potassium 3.9 mmol/L (3.3-5.1); Sodium 133 mmol/L (135-145)
[2024-02-06 14:20] LABS: Creatinine Urine 34.08 mg/dL; Microalbum/Creatinine Ratio Ur 428.4 ug/mg cr (<30)
== END 2024-02-06 11:15 | disposition home or self-care (01) ==
LOC: HO.HHCL 11:14
PROVIDERS: Visit Provider Internal Medicine Geriatric Medicine
DX: E11.29 Type 2 diabetes mellitus with other diabetic kidney complication (principal); R80.9 Proteinuria, unspecified
CPT/HCPCS: 36415; 80048; 82043; 82570

== ENCOUNTER 2024-03-08 03:22 | Emergency (ER) | payer MEDICAID, SELFPAY ==
[2024-03-08] VITALS (8 sets, daily range): BP systolic 86–170; BP diastolic 52–83; PULSE 56–72; RESP 12–17; TEMP 36.2–36.9; O2SAT 93–98; BMI 24.8
--- NOTE | ~2024-03-08 | CT_ITS ---
EXAMINATION: CT HEAD WITHOUT CONTRAST (STROKE PROTOCOL) CLINICAL INFORMATION: Stroke protocol. CVA COMPARISON: 02/24/2022 TECHNIQUE: Contiguous axial imaging was performed from the skull base to vertex without intravenous administration of contrast. This CT examination was performed using dose optimization techniques as appropriate, variously including the following: *Automated exposure control *Adjustment of mA and/or kV according to patient size (this includes techniques or standardized protocols for targeted exams where dose is matched to indication/reason for exam; i.e. extremities or head) *Use of iterative reconstruction technique DLP: 667 mGy-cm FINDINGS: There is no evidence of acute intracranial hemorrhage or territorial infarction. No abnormal mass-effect or midline shift is seen. Sales to white matter differentiation is well preserved. No extra axial fluid collections. The ventricles are normal in size and configuration. Multiple chronic lacunar infarcts are evident in the basal ganglia bilaterally, unchanged as compared to prior. A few foci of hypoattenuation in the subcortical and periventricular white matter are most consistent with chronic microangiopathic changes. Calcific atherosclerosis is present within the cavernous segments of the internal carotid arteries. The soft tissues and osseous structures are normal. The sinuses and mastoid air cells are clear. CT/CT head for stroke IMPRESSION: No acute intracranial pathology. Mild nonspecific periventricular white matter disease, unchanged. Small chronic bilateral lacunar infarcts, unchanged. This critical result was discussed with Dr. Matty Poe at 3:40 AM on 03/08/2024. It was ascertained that the content and urgency of the report was understood at the time of direct communication.
--- NOTE | ~2024-03-08 | CT_ITS ---
EXAMINATION: CERVICAL SPINE CT WITHOUT CONTRAST CLINICAL INFORMATION: Status post fall. Pain. COMPARISON: 12/29/2017 TECHNIQUE: Multidetector volumetric imaging was obtained through the cervical spine without intravenous contrast. Multiplanar reconstructed images in coronal and sagittal orientations were submitted. This CT examination was performed using dose optimization techniques as appropriate, variously including the following: *Automated exposure control *Adjustment of mA and/or kV according to patient size (this includes techniques or standardized protocols for targeted exams where dose is matched to indication/reason for exam; i.e. extremities or head) *Use of iterative reconstruction technique DOSE: 335 mGy-cm FINDINGS: Vertebral body heights are normal. No fractures of the vertebral bodies or posterior elements. Vertebral alignment is normal. No subluxation. The craniocervical and atlantoaxial articulations are normal. Intervertebral disc heights are normal. No significant degenerative disc disease. Facet joints are normal. Central canal and neural foramina appear patent without appreciable stenoses. No significant paravertebral soft tissue swelling. Cervical soft tissues are unremarkable. Imaged portions of the lung apices are clear. CT/CT cervical spine wo IV con IMPRESSION: No acute fracture or malalignment in the cervical spine.
--- NOTE | 2024-03-08 03:26 | ECG_ITS ---
Test Reason : STROKE Blood Pressure : / mmHG Vent. Rate : 056 BPM Atrial Rate : 056 BPM P-R Int : 184 ms QRS Dur : 098 ms QT Int : 510 ms P-R-T Axes : 024 057 061 degrees QTc Int : 492 ms Sinus bradycardia Prolonged QT Abnormal ECG When compared with ECG of 27-SEP-2022 17:51, No significant change was found Referred By: Robin Poe Electronically Signed By:MAGGI PRINCE MD
[2024-03-08 04:03] LABS: Glucose, Whole Blood 165 mg/dL (60-115)
[2024-03-08 04:04] LABS: MANUAL DIFF FLAG NO
[2024-03-08 04:05] LABS: Basophils Percent Auto 0.4 % (0-2); Eosinophils Absolute Auto 0.1 X10*3/uL (0.0-0.4); Eosinophils Percent Auto 1.3 % (0-4); Hematocrit 35.2 % (37.0-47.0); Hemoglobin 12.2 g/dl (12.0-16.0); Imm Gran Abs Auto 0.17 X10*3/uL (0.00-0.03); Imm Gran Pct Auto 1.7 % (0.0-0.4); Lymphocytes Absolute Auto 2.5 X10*3/uL (1.2-4.9); Lymphocytes Percent Auto 25.7 % (20-40); Mean Corpuscular HGB Conc 34.7 g/dl (31.0-35.0); Mean Corpuscular Hemoglobin 29.8 pg (27.0-33.0); Mean Corpuscular Volume 85.9 fL (80.0-98.0); Mean Platelet Volume 9.1 fL (9.4-12.3); Monocytes Absolute Auto 0.6 X10*3/uL (0.1-1.2); Monocytes Percent Auto 6.4 % (2-11); Neutrophils Absolute Auto 6.3 x10*3/uL (2.0-8.3); Neutrophils Percent Auto 64.5 % (45-73); Platelet Count 373 X10*3/uL (160-400); Red Cell Distribution Width 14.7 % (11.0-16.0); White Blood Count 9.8 X10*3/uL (4.8-10.8)
[2024-03-08 04:14] LABS: INTERNATIONAL NORM RATIO 0.9 (0.9-1.1); Prothrombin Time 10.8 SEC (11.1-13.3)
[2024-03-08 04:17] LABS: Partial Thromboplastin Time 21.6 SEC (26.0-36.8)
[2024-03-08 04:18] LABS: Stroke Lab Use COMPLETE
[2024-03-08 04:23] LABS: Prothrombin Time Whole Bld POC 12.4 sec (11.1-13.5)
[2024-03-08 04:23] LABS: Anion Gap 13 (12-20); Blood Urea Nitrogen 22 mg/dL (9-16); Calcium 9.7 mg/dL (8.4-10.2); Carbon Dioxide 17 mmol/L (22-29); Chloride 105 mmol/L (96-108); Creatinine Clr Calc Pharmacy 32.9; Estimated Glomerular Filt Rate 32; Glucose Random 164 mg/dL (60-115); Potassium 4.3 mmol/L (3.3-5.1); Sodium 131 mmol/L (135-145)
[2024-03-08 04:31] LABS: Troponin-I High Sensitivity < 2.7 ng/L (<3.5-17.0)
[2024-03-08 05:03] LABS: Alanine Aminotransferase 14 U/L (0-31); Albumin Level 4.1 g/dL (3.5-5.0); Alkaline Phosphatase 155 U/L (39-117); Aspartate Amino Transferase 16 U/L (5-31); Bilirubin Direct 0.1 mg/dL (0.0-0.5); Bilirubin Total 0.4 mg/dL (0.0-1.0); Magnesium 2.3 mg/dL (1.6-2.6); Total Protein 7.7 g/dL (6.5-8.0)
[2024-03-08 05:18] LABS: Appearance Urine Cloudy; Color Urine Yellow; Glucose Urine UA >=1000 mg/dL (Negative); Leukocyte Esterase Urine Large (3+) (Negative); Nitrite Urine Negative (Negative); UMIC TRIGGER UACC YES; Urine Blood Negative (Negative); Urine Ketones Negative (Negative); Urine Protein 30 (1+) mg/dL (Neg-Trace)
--- NOTE | 2024-03-08 05:27 | ED_ITS ---
HPI - General Adult General Chief complaint: Stroke Stated complaint: fall Time Seen by Provider: 03/08/24 03:26 Source: family Mode of arrival: EMS Limitations: no limitations History of Present Illness ED Provider: selena HOLLEY narrative: Patient is 58 years old with history of diabetes depression brought by EMS for fall with blood pressure of 80/60. According to family patient was was okay woke up around 03:00 o'clock to smoke cigarette patient fell lightheaded and fell hitting her head to the side of the door on EMS arrival blood pressure was 80/60 no focal deficit noticed patient is slightly confused per family no seizure activity fall was unwitnessed history of same in the past when she had UTI Related Data Home Medications ?Medication ?Instructions ?Recorded ?Confirmed aspirin 81 mg tablet,delayed 81 mg PO DAILY 04/21/22 05/20/23 release atorvastatin 20 mg tablet 20 mg PO BEDTIME 04/21/22 05/20/23 benztropine 0.5 mg tablet 0.5 mg PO BID 04/21/22 05/20/23 fluoxetine 10 mg capsule 10 mg PO DAILY 04/21/22 05/20/23 insulin syringe-needle U-100 0.5 #10 ea 04/21/22 08/29/22 mL 30 gauge x 1/2 (UltiCare) metformin 1,000 mg tablet 1,000 mg PO BID 04/21/22 05/20/23 metoprolol succinate 50 mg 50 mg PO DAILY 04/21/22 05/20/23 tablet,extended release 24 hr mirtazapine 7.5 mg tablet 7.5 mg PO BEDTIME 04/21/22 05/20/23 prazosin 2 mg capsule 2 mg PO DAILY 04/21/22 05/20/23 ergocalciferol (vitamin D2) 1,250 1 cap PO GUERRA@0900 05/06/22 05/20/23 mcg (50,000 unit) capsule haloperidol 5 mg tablet 1 tab PO BID 05/06/22 05/20/23 amlodipine 5 mg tablet 5 mg PO BEDTIME 05/20/23 05/20/23 losartan 25 mg tablet 25 mg PO DAILY 05/20/23 05/20/23 iczdojhd-aniv-mwtq 8 mg-folic 400 1 tab PO DAILY 05/20/23 05/20/23 mcg-K 50 mcg-lutein 300 mcg tablet (Centrum Silver Women) prazosin 2 mg capsule 4 mg PO BEDTIME 05/20/23 05/20/23 Previous Rx's ?Medication ?Instructions ?Recorded insulin glargine 100 unit/mL (3 20 unit (0.2 mL) subcut QPM #15 mL 05/23/23 mL) subcutaneous pen (Lantus Solostar U-100 Insulin) pen needle, diabetic 32 gauge x #100 ea 05/23/23 3/16 bisacodyl 10 mg rectal suppository 10 mg [place] DAILY PRN constipation 09/12/23 (Dulcolax (bisacodyl)) #20 ea docusate sodium 100 mg capsule 200 mg (2 x 100 mg) PO BEDTIME #60 09/12/23 (Colace) caps pantoprazole 40 mg tablet,delayed 40 mg PO QAM 30 days #30 tabs 09/12/23 release polyethylene glycol 3350 17 17 g PO DAILY 30 days #510 grams 09/12/23 gram/dose oral powder (Miralax) cefuroxime axetil 250 mg tablet 250 mg PO BID 7 days #14 tabs 03/08/24 Allergies Allergy/AdvReac Type Severity Reaction Status Date / Time iron Allergy Mild UNKNOWN Verified 03/08/24 03:45 Iodinated Contrast Media Allergy Unknown UNKNOWN Verified 03/08/24 03:45 [IV Dye, Iodine Containing] iodine [IODINE] Allergy Unknown RASH Verified 03/08/24 03:45 SEAFOOD Allergy Unknown UNKNOWN Uncoded 03/08/24 03:45 Review of Systems 2 Review of Systems: Yes all other systems are reviewed and are negative [facility] Past Medical History Medical History Dysphagia Anxiety disorder GERD (gastroesophageal reflux disease) Migraines Asthma On beta jordyn at home Elevated cholesterol HTN (hypertension) Smoker Diabetes Depression Heartburn Surgical History Hx of left knee surgery History of tubal ligation History of esophagogastroduodenoscopy (EGD) H/O colonoscopy Hx of cholecystectomy Social History Social History Household Members: Family Housing: Apartment Alcohol intake: former Patient Tobacco Use Status: Current everyday Tobacco user Tobacco use type: Cigarette Cigarettes Per Day: 6 Smoked in Last 30 Days: Yes Second Hand Smoke Exposure: Yes Use of substances other than those prescribed or required for medical reasons: No Advance Directives: No Advance Directives Information Provided: No Do you have a plan to hurt others: No Plan Patient : No service: No Current occupational status: disabled Physical Exam ED Vital Signs: Vital Signs - 24 hr 03/08/24 03:44 03/08/24 05:14 03/08/24 05:30 Temperature 97.1 F 97.9 F Pulse Rate 56 62 Respiratory Rate 12 16 Blood Pressure 98/58 L 105/52 L 134/71 Pulse Oximetry 93 95 Oxygen Delivery Method Room Air Room Air 03/08/24 06:30 03/08/24 06:59 03/08/24 07:02 Temperature 97.9 F 97.8 F Pulse Rate 66 66 Respiratory Rate 16 16 Blood Pressure 154/64 H 170/80 H 156/64 H Pulse Oximetry 95 95 Oxygen Delivery Method Room Air Room Air 03/08/24 07:44 Temperature 98.5 F Pulse Rate 72 Respiratory Rate 17 Blood Pressure 156/83 H Pulse Oximetry 98 Oxygen Delivery Method Room Air BMI result Body Mass Index 24.8 Appearance: Alert. Oriented X3. No acute distress. Eyes: PERRLA, No Nystagmus HEENT: Pharynx normal. Oral Mucosa dry ,atraumatic normocephalic Neck: Normal inspection. Neck supple. CVS: Normal heart rate and rhythm. Pulses normal. Respiratory: No respiratory distress. Equal air entry bilateral, no wheezing/rales/rhonchi Abdomen: Soft and nontender. Bowel sounds are present, no mass palpable, no CVA tenderness Skin: Skin warm and dry. Normal skin color. Normal skin turgor. Extremities: No lower extremity edema. No calf tenderness Neuro: Oriented X 3. No motor deficit. No sensory deficit.No cerebellar signs , cranial nerves II-XII intact Medications Administered Discontinued Medications Generic Name Dose Route Start Last Admin Trade Name Freq PRN Reason Stop Dose Admin Sodium Chloride 1,000 mls @ 999 mls/hr 03/08/24 04:43 03/08/24 06:15 Ns IV 03/08/24 05:43 999 mls/hr .Q1H1M ONE Administration Ceftriaxone Sodium 1 gm/ 50 mls @ 100 mls/hr 03/08/24 05:36 03/08/24 06:15 Sodium Chloride IV 03/08/24 06:05 100 mls/hr ONCE ONE Administration Medical Decision Making Medical Decision Making [facility] Narrative: Patient's transient hypotension and confusion and vasovagal syncope workup showed UTI in patient responded to IV fluids and IV antibiotics normal lactic acid level will discharge patient home on cefuroxime Differential Diagnosis Differential Diagnoses: The differential diagnosis associated with the presentation includes Admission/Observation Consideration of admission/observation: Escalation of care including admission/observation considered Lab Data [facility] Lab Attestation statement: I reviewed the patient's lab results. 03/08/24 04:01 03/08/24 04:01 Labs: Lab Results 03/08/24 03/08/24 03/08/24 Range/Units 03:50 03:53 04:01 WBC 9.8 (4.8-10.8) X10*3/uL RBC 4.10 L (4.20-5.50) X10*6/uL Hgb 12.2 (12.0-16.0) g/dl Hct 35.2 L (37.0-47.0) % MCV 85.9 (80.0-98.0) fL MCH 29.8 (27.0-33.0) pg MCHC 34.7 (31.0-35.0) g/dl RDW 14.7 (11.0-16.0) % Plt Count 373 (160-400) X10*3/uL MPV 9.1 L (9.4-12.3) fL Immature Gran % (Auto) 1.7 H (0.0-0.4) % Neut % (Auto) 64.5 (45-73) % Lymph % (Auto) 25.7 (20-40) % [place] % (Auto) 6.4 (2-11) % Eos % (Auto) 1.3 (0-4) % Baso % (Auto) 0.4 (0-2) % Lymph # (Auto) 2.5 (1.2-4.9) X10*3/uL [place] # (Auto) 0.6 (0.1-1.2) X10*3/uL Eos # (Auto) 0.1 (0.0-0.4) X10*3/uL Baso # (Auto) 0.0 (0.0-0.2) X10*3/uL Abs Immat Gran (auto) 0.17 H (0.00-0.03) X10*3/uL Absolute Neuts (auto) 6.3 (2.0-8.3) x10*3/uL Absolute Nucleated RBC 0.000 (0.0-0.012) X10*3/uL Nucleated RBC % (auto) 0.0 (0.0-0.2) /100WBC PT 10.8 L (11.1-13.3) SEC Whole Blood PT 12.4 (11.1-13.5) sec INR 0.9 (0.9-1.1) Whole Blood INR 1.0 (0.9-1.1) APTT 21.6 L (26.0-36.8) SEC Sodium 131 L (135-145) mmol/L Potassium 4.3 (3.3-5.1) mmol/L Chloride 105 (96-108) mmol/L Carbon Dioxide 17 L (22-29) mmol/L Anion Gap 13 (12-20) BUN 22 H (9-16) mg/dL Creatinine 1.63 H (0.5-1.4) mg/dL Estim Creat Clear Calc 32.9 Estimated GFR 32 POC Glucose 165 H (60-115) mg/dL Random Glucose 164 H (60-115) mg/dL Lactic Acid (0.5-2.0) mmol/L Calcium 9.7 (8.4-10.2) mg/dL Magnesium 2.3 (1.6-2.6) mg/dL Total Bilirubin 0.4 (0.0-1.0) mg/dL Direct Bilirubin 0.1 (0.0-0.5) mg/dL AST 16 (5-31) U/L ALT 14 (0-31) U/L Alkaline Phosphatase 155 H (39-117) U/L Total Creatine Kinase 100 (26-140) U/L Troponin I High Sens < 2.7 (<3.5-17.0) ng/L Total Protein 7.7 (6.5-8.0) g/dL Albumin 4.1 (3.5-5.0) g/dL Urine Color Urine Appearance Urine pH (5.0-9.0) Ur Specific [place] (1.005-1.025) Urine Protein (Neg-Trace) mg/dL Urine Glucose (UA) (Negative) mg/dL Urine Ketones (Negative) mg/dL Urine Blood (Negative) Urine Nitrite (Negative) Ur Leukocyte Esterase (Negative) Urine RBC (0-2) /HPF Urine WBC (0-5) /HPF Ur Squamous Epith Cells (0-2) /HPF Urine Bacteria (None Seen) Hyaline Casts (0-2) /LPF 03/08/24 03/08/24 Range/Units 05:12 06:09 WBC (4.8-10.8) X10*3/uL RBC (4.20-5.50) X10*6/uL Hgb (12.0-16.0) g/dl Hct (37.0-47.0) % MCV (80.0-98.0) fL MCH (27.0-33.0) pg MCHC (31.0-35.0) g/dl RDW (11.0-16.0) % Plt Count (160-400) X10*3/uL MPV (9.4-12.3) fL Immature Gran % (Auto) (0.0-0.4) % Neut % (Auto) (45-73) % Lymph % (Auto) (20-40) % [place] % (Auto) (2-11) % Eos % (Auto) (0-4) % Baso % (Auto) (0-2) % Lymph # (Auto) (1.2-4.9) X10*3/uL [place] # (Auto) (0.1-1.2) X10*3/uL Eos # (Auto) (0.0-0.4) X10*3/uL Baso # (Auto) (0.0-0.2) X10*3/uL Abs Immat Gran (auto) (0.00-0.03) X10*3/uL Absolute Neuts (auto) (2.0-8.3) x10*3/uL Absolute Nucleated RBC (0.0-0.012) X10*3/uL Nucleated RBC % (auto) (0.0-0.2) /100WBC PT (11.1-13.3) SEC Whole Blood PT (11.1-13.5) sec INR (0.9-1.1) Whole Blood INR (0.9-1.1) APTT (26.0-36.8) SEC Sodium (135-145) mmol/L Potassium (3.3-5.1) mmol/L Chloride (96-108) mmol/L Carbon Dioxide (22-29) mmol/L Anion Gap (12-20) BUN (9-16) mg/dL Creatinine (0.5-1.4) mg/dL Estim Creat Clear Calc Estimated GFR POC Glucose (60-115) mg/dL Random Glucose (60-115) mg/dL Lactic Acid 1.1 (0.5-2.0) mmol/L Calcium (8.4-10.2) mg/dL Magnesium (1.6-2.6) mg/dL Total Bilirubin (0.0-1.0) mg/dL Direct Bilirubin (0.0-0.5) mg/dL AST (5-31) U/L ALT (0-31) U/L Alkaline Phosphatase (39-117) U/L Total Creatine Kinase (26-140) U/L Troponin I High Sens (<3.5-17.0) ng/L Total Protein (6.5-8.0) g/dL Albumin (3.5-5.0) g/dL Urine Color Yellow Urine Appearance Cloudy Urine pH 6.0 (5.0-9.0) Ur Specific [place] 1.010 (1.005-1.025) Urine Protein 30 (1+) H (Neg-Trace) mg/dL Urine Glucose (UA) >=1000 H (Negative) mg/dL Urine Ketones Negative (Negative) mg/dL Urine Blood Negative (Negative) Urine Nitrite Negative (Negative) Ur Leukocyte Esterase Large (3+) H (Negative) Urine RBC 0-2 (0-2) /HPF Urine WBC 11-20 (0-5) /HPF Ur Squamous Epith Cells 6-10 (0-2) /HPF Urine Bacteria 1+ (None Seen) Hyaline Casts 0-2 (0-2) /LPF Discharge Plan Discharge Clinical Impression: UTI (urinary tract infection) Patient Disposition: Home, Self-Care Instructions: Urinary Tract Infection in Women (ED) Additional Instructions: Drink plenty of fluids Take antibiotic as prescribed Follow with PCP if not better Prescriptions: New cefuroxime axetil 250 mg tablet 250 mg PO BID 7 Days Qty: 14 0RF No Action ergocalciferol (vitamin D2) 1,250 mcg (50,000 unit) capsule 1 cap PO GUERRA@0900 haloperidol 5 mg tablet 1 tab PO BID losartan 25 mg tablet 25 mg PO DAILY prazosin 2 mg capsule 4 mg PO BEDTIME amlodipine 5 mg tablet 5 mg PO BEDTIME Centrum Silver Women 8 mg iron-400 mcg-50 mcg Tablet 1 tab PO DAILY insulin glargine [Lantus Solostar U-100 Insulin] 100 unit/mL (3 mL) insulin pen 20 unit subcut QPM Qty: 15 3RF (DME) pen needle, diabetic 32 gauge x 3/16 needle See Rx Instructions .Route Qty: 100 0RF Rx Instructions: As directed mirtazapine 7.5 mg tablet 7.5 mg PO BEDTIME prazosin 2 mg capsule 2 mg PO DAILY fluoxetine 10 mg capsule 10 mg PO DAILY metformin 1,000 mg tablet 1,000 mg PO BID aspirin 81 mg tablet,delayed release (DR/EC) 81 mg PO DAILY metoprolol succinate 50 mg tablet extended release 24 hr 50 mg PO DAILY benztropine 0.5 mg tablet 0.5 mg PO BID atorvastatin 20 mg tablet 20 mg PO BEDTIME (DME) insulin syringe-needle U-100 [UltiCare] 0.5 mL 30 gauge x 1/2 syringe See Rx Instructions .ROUTE DAILY Qty: 10 Rx Instructions: As directed pantoprazole 40 mg tablet,delayed release (DR/EC) 40 mg PO QAM 30 Days Qty: 30 11RF docusate sodium [Colace] 100 mg capsule 200 mg PO BEDTIME Qty: 60 5RF bisacodyl [Dulcolax (bisacodyl)] 10 mg suppository 10 mg [place] DAILY PRN (Reason: constipation) Qty: 20 2RF polyethylene glycol 3350 [Miralax] 17 gram/dose powder 17 g PO DAILY 30 Days Qty: 510 6RF Interventions: ED Discharge Assessment Last Done: 03/08/24 07:44 Discharge Date/Time: 03/08/24 07:48 Print Language: B[place]
[2024-03-08 05:42] LABS: Bacteria Urine 1+ (None Seen); Hyaline Casts Urine 0-2 /LPF (0-2); RBC Urine 0-2 /HPF (0-2); UACC Culture Trigger YES
[2024-03-08] MEDS: 0.9 % Sodium Chloride 1,000 ML 999 ML IV (06:15)
[2024-03-08] MEDS: cefTRIAXone sodium 1 GM in 0.9 % Sodium Chloride 50 ML IV (06:15)
[2024-03-08 06:29] LABS: Lactic Acid 1.1 mmol/L (0.5-2.0)
--- NOTE | 2024-03-08 06:39 | PC.NURSE ---
Patient is alert and oriented x3, speech is clear, passed bedside swallow eval. Patient on night monitor, NSR. VSS. Labs drawn including lactic acid and blood cultures, 1 L NS and Ceftriaxone infusing via 20 G IV line in R AC. Patient resting comfortably with eyes closed, breathing even and unlabored, no apparent distress noted at this time. Family at bedside, call benitez in reach.
== END 2024-03-08 07:48 | disposition home or self-care (01) ==
PROVIDERS: Emergency Provider Internal Medicine
DX: N39.0 Urinary tract infection, site not specified (principal); R42 Dizziness and giddiness; R51.9 Headache, unspecified; M54.2 Cervicalgia; R00.1 Bradycardia, unspecified; F17.210 Nicotine dependence, cigarettes, uncomplicated; Z79.899 Other long term (current) drug therapy
CPT/HCPCS: 36415; 70450; 72125; 80048; 80076; 81001; 82550; 82947; 83605; 83735; 84484; 85025; 85610; 85730; 87040; 87086; 93005; 96365; 96366; 99285; J0696

== ENCOUNTER → 2024-03-08 03:26 | Outpatient (BNV) | payer MEDICAID, SELFPAY | PROVIDERS: Emergency Provider Internal Medicine; Visit Provider Internal Medicine Cardiovascular Disease | DX: R00.1 Bradycardia, unspecified (principal) | CPT/HCPCS: 93010 ==

== ENCOUNTER 2024-05-20 10:39 | Outpatient (REF) | payer MEDICAID, SELFPAY ==
[2024-05-20 12:30] LABS: Anion Gap 15 (12-20); Blood Urea Nitrogen 23 mg/dL (9-16); Carbon Dioxide 17 mmol/L (22-29); Chloride 105 mmol/L (96-108); Estimated Glomerular Filt Rate 38; Glucose Random 168 mg/dL (60-115); Potassium 5.5 mmol/L (3.3-5.1); Sodium 131 mmol/L (135-145)
[2024-05-20 14:15] LABS: Creatinine Urine 26.44 mg/dL; Microalbum/Creatinine Ratio Ur 438.7 ug/mg cr (<30)
== END 2024-05-20 10:40 | disposition home or self-care (01) ==
LOC: HO.HHCL 10:39
PROVIDERS: Visit Provider Internal Medicine Geriatric Medicine
DX: E11.69 Type 2 diabetes mellitus with other specified complication (principal); Z79.4 Long term (current) use of insulin; N17.9 Acute kidney failure, unspecified; I10 Essential (primary) hypertension; E11.21 Type 2 diabetes mellitus with diabetic nephropathy
CPT/HCPCS: 36415; 80048; 82043; 82570

== ENCOUNTER 2024-05-30 13:37 | Outpatient (AMB) | payer MEDICAID, SELFPAY ==
[2024-05-30 13:44] VITALS: BP 124/74; PULSE 99; O2SAT 103
--- NOTE | 2024-05-30 13:44 | HO.NEPHOV_ITS ---
Vital Signs 05/30/24 13:44 Weight 133 lb BP 124/74 Blood Pressure Location Lt brachial Position Sitting Pulse 99 Pulse Source Pulse Oximeter Pulse Oximetry (%) 103 H Intake Visit Reasons: STG3 CKD/ Conf Accelerator Operator Required: Yes Accelerator Operator Name: [id number] jigna Accompanied by: Daughter Allergies iron Allergy (Mild, Verified 05/30/24 13:46) UNKNOWN Iodinated Contrast Media [IV Dye, Iodine Containing] Allergy (Unknown, Verified 05/30/24 13:46) UNKNOWN iodine [IODINE] Allergy (Unknown, Verified 05/30/24 13:46) RASH SEAFOOD Allergy (Unknown, Uncoded 03/08/24 03:45) UNKNOWN Medication List - Last Reconciled 05/30/24 by Torrey Patel MD amlodipine 5 mg PO BEDTIME aspirin 81 mg PO DAILY atorvastatin 20 mg PO BEDTIME benztropine 0.5 mg PO BID bisacodyl (Dulcolax (bisacodyl)) 10 mg NC DAILY PRN cefuroxime axetil 250 mg PO BID 7 days docusate sodium (Stool Softener) 200 mg (2 x 100 mg) PO BEDTIME ergocalciferol (vitamin D2) 1 cap PO GUERRA@0900 fluoxetine 10 mg PO DAILY gabapentin 100 mg PO BEDTIME haloperidol 1 tab PO BID insulin glargine (Lantus Solostar U-100 Insulin) 20 units (0.2 mL) subcut QPM insulin syringe-needle U-100 (UltiCare) As directed losartan 25 mg PO DAILY metformin 1,000 mg PO BID metoprolol succinate ER 50 mg PO DAILY mirtazapine 7.5 mg PO BEDTIME pcnbsczm-clh-cotl-FA-vit K-lut 8 mg iron-400 mcg-50 mcg (Centrum Silver Women) 1 tab PO DAILY pantoprazole 40 mg PO QAM 30 days pen needle, diabetic As directed polyethylene glycol 3350 (Miralax) 17 grams PO DAILY 30 days prazosin 4 mg PO BEDTIME prazosin 2 mg PO DAILY HPI Comments Details: 59-year-old woman with a history of diabetes mellitus referred for chronic kidney disease. Baseline creatinine is around 1.0 mg/dL. Recently creatinine bumped up to 1.5. Last year the serum creatinine had bumped to 1. 9 and she had CAMPOS due to hypoperfusion. CAMPOS subsequently resolved She has had mild chronic hyponatremia. Recently potassium bumped up to 5.5 by the specimen was slightly hemolyzed. She also has persistent mild metabolic acidosis. She has been referred for further evaluation. Ongoing medical problems include longstanding diabetes mellitus. Overall blood sugar has been better controlled recently. History of hypertension. Blood pressure has been well controlled. Today she was accompanied by her daughter. Accelerator Operator service was used. She smokes less than 10 cigarettes a day. No history of any alcohol abuse [facility], [facility] Medical History Dysphagia Anxiety disorder GERD (gastroesophageal reflux disease) Migraines Asthma On beta jordyn at home Elevated cholesterol HTN (hypertension) Smoker Diabetes Depression Heartburn Surgical History Hx of left knee surgery History of tubal ligation History of esophagogastroduodenoscopy (EGD) H/O colonoscopy Hx of cholecystectomy Social History Household Members: Family Housing: Apartment Alcohol intake: former Patient Tobacco Use Status: Current everyday Tobacco user Tobacco use type: Cigarette Cigarettes Per Day: 6 Second Hand Smoke Exposure: Yes service: No Current occupational status: disabled Review of Systems Const Denies fever(s) and Denies weight loss Card Denies chest pain Resp Denies cough and Denies hemoptysis GI Denies abdominal pain, Denies diarrhea and Denies nausea Musc Denies back pain Neuro Denies focal weakness Physical Exam Vital Signs: Last Vital Signs Pulse 99 05/30/24 13:44 BP 124/74 05/30/24 13:44 Pulse Ox 103 H 05/30/24 13:44 Const General: comfortable; No acute distress Orientation/consciousness: patient oriented x3 Eyes General: appearance normal, both eyes and all related structures Visual Bui: normal visual bui by confrontation Neck Neck: Yes supple and Yes no JVD Resp Effort & Inspection: normal respiratory effort and respiratory effort not decreased Auscultation: rhonchi Cardio Palpation: no palpable S3 and no palpable S4 Heart sounds: no rubs GI Inspection: Yes normal to inspection Palpation (GI): Soft to palpation Percussion: Yes normal to percussion Auscultation: normal bowel sounds General: Yes no CVA tenderness Back/Spine/Pelvis Back: no CVA tenderness Skin General skin exam: no petechiae and no purpura Neuro General: patient oriented x3 and no focal motor deficits Extrem General: No clubbing and No edema Results Reviewed Nephrology Results: Hgb 12.2 g/dl (12.0-16.0) 03/08/24 WBC 9.8 X10*3/uL (4.8-10.8) 03/08/24 Plt Count 373 X10*3/uL (160-400) 03/08/24 Sodium 131 mmol/L (135-145) L 05/20/24 Potassium 5.5 mmol/L (3.3-5.1) H 05/20/24 Chloride 105 mmol/L (96-108) 05/20/24 Carbon Dioxide 17 mmol/L (22-29) L 05/20/24 BUN 23 mg/dL (9-16) H 05/20/24 Creatinine 1.41 mg/dL (0.5-1.4) H 05/20/24 Calcium 10.0 mg/dL (8.4-10.2) 05/20/24 Urine Protein 30 (1+) mg/dL (Neg-Trace) H 03/08/24 Urine Creatinine 26.44 mg/dL 05/20/24 Assessment & Plan Assessment & Plan (1) CKD (chronic kidney disease): Comment: Most likely due to underlying diabetic kidney disease. She is a component of CAMPOS. Most likely has hypoperfusion. Obstruction needs to be ruled out. No evidence of active glomerular nephritis or interstitial disease based on recent UA Code(s): N18.9 - Chronic kidney disease, unspecified Category: Medical (2) Diabetes: Comment: We will submit an A1c less than 7% Code(s): E11.9 - Type 2 diabetes mellitus without complications Category: Medical (3) Hyponatremia: Comment: . Chronic and asymptomatic. Probably has decreased free water clearance secondary to use of SSRI. Code(s): E87.1 - Hypo-osmolality and hyponatremia Category: Medical (4) Metabolic acidosis: Comment: Differential diagnosis include due to renal failure. Rule out lactic acidosis secondary to use of metformin Code(s): E87.20 - Acidosis, unspecified Category: Medical (5) Hyperkalemia: Comment: Mild. Specimen was slightly hemolyzed. Code(s): E87.5 - Hyperkalemia Category: Medical Plan Workup initiated as below. Recheck renal panel including potassium. If she has persistent hyperkalemia I would keep her on low-potassium diet and add Lokelma. Check lactate level. May need to discontinue metformin Check renal ultrasonogram to rule out obstruction and to check echogenicity. Stay on low-sodium diet Optimize blood sugar and blood pressure. Restrict oral free water intake to less than 1.2 L and watch serum sodium. Further workup and management will depend on the outcome of the above baseline investigations Orders: Orders Complete Blood Count Auto Diff Today E87.5 - Hyperkalemia, N18.9 - Chronic kidney disease, unspecified Total Protein Urine Random Today E87.5 - Hyperkalemia, N18.9 - Chronic kidney d isease, unspecified UA and rflx microscopic Today E87.5 - Hyperkalemia, N18.9 - Chronic kidney disease, unspecified Lactic Acid Today E87.5 - Hyperkalemia, N18.9 - Chronic kidney disease, unspecified US renal BI Today E87.5 - Hyperkalemia, N18.9 - Chronic kidney disease, unspecified Basic Metabolic Panel Today E87.5 - Hyperkalemia, N18.9 - Chronic kidney disease, unspecified Creatinine Urine Today E87.5 - Hyperkalemia, N18.9 - Chronic kidney disease, unspecified Protein Electrophoresis, Serum Today E87.5 - Hyperkalemia, N18.9 - Chronic kidney disease, unspecified Coding Level of Care Code New Pt Level 5 (68405) Diagnoses CKD (chronic kidney disease) N18.9 Diabetes E11.9 Hyponatremia E87.1 Metabolic acidosis E87.20 Hyperkalemia E87.5
== END 2024-05-30 14:05 | disposition home or self-care (01) ==
PROVIDERS: PCP Internal Medicine Geriatric Medicine; Referring Provider Internal Medicine Geriatric Medicine; Visit Provider Internal Medicine Hypertension Specialist
DX: E11.22 Type 2 diabetes mellitus with diabetic chronic kidney disease (principal); N18.30 Chronic kidney disease, stage 3 unspecified; E87.1 Hypo-osmolality and hyponatremia; E87.22 Chronic metabolic acidosis; E87.5 Hyperkalemia
CPT/HCPCS: 99204

== ENCOUNTER → 2024-05-30 13:37 | Outpatient (BNVA) | payer MEDICAID, SELFPAY | PROVIDERS: PCP Internal Medicine Geriatric Medicine; Referring Provider Internal Medicine Geriatric Medicine; Visit Provider Internal Medicine Hypertension Specialist | DX: E11.22 Type 2 diabetes mellitus with diabetic chronic kidney disease (principal); N18.9 Chronic kidney disease, unspecified; E87.1 Hypo-osmolality and hyponatremia; E87.20 Acidosis, unspecified; E87.5 Hyperkalemia | CPT/HCPCS: 99202 ==

== ENCOUNTER 2024-05-30 14:49 | Outpatient (REF) | payer MEDICAID, SELFPAY ==
[2024-05-30 15:44] LABS: MANUAL DIFF FLAG NO
[2024-05-30 15:55] LABS: Basophils Absolute Auto 0.1 X10*3/uL (0.0-0.2); Basophils Percent Auto 0.9 % (0-2); Eosinophils Absolute Auto 0.1 X10*3/uL (0.0-0.4); Eosinophils Percent Auto 1.5 % (0-4); Hematocrit 33.7 % (37.0-47.0); Hemoglobin 11.2 g/dl (12.0-16.0); Imm Gran Abs Auto 0.09 X10*3/uL (0.00-0.03); Imm Gran Pct Auto 1.2 % (0.0-0.4); Lymphocytes Absolute Auto 2.9 X10*3/uL (1.2-4.9); Lymphocytes Percent Auto 39.6 % (20-40); Mean Corpuscular HGB Conc 33.2 g/dl (31.0-35.0); Mean Corpuscular Hemoglobin 28.9 pg (27.0-33.0); Mean Corpuscular Volume 86.9 fL (80.0-98.0); Mean Platelet Volume 9.9 fL (9.4-12.3); Monocytes Absolute Auto 0.6 X10*3/uL (0.1-1.2); Monocytes Percent Auto 7.7 % (2-11); Neutrophils Absolute Auto 3.6 x10*3/uL (2.0-8.3); Neutrophils Percent Auto 49.1 % (45-73); Platelet Count 344 X10*3/uL (160-400); Red Blood Count 3.88 X10*6/uL (4.20-5.50); Red Cell Distribution Width 14.6 % (11.0-16.0); White Blood Count 7.4 X10*3/uL (4.8-10.8)
[2024-05-30 16:02] LABS: Lactic Acid 1.4 mmol/L (0.5-2.0)
[2024-05-30 16:08] LABS: Appearance Urine Clear; Color Urine Yellow; Glucose Urine UA >=1000 mg/dL (Negative); Leukocyte Esterase Urine Negative (Negative); Nitrite Urine Negative (Negative); UMIC TRIGGER UA YES; Urine Blood Negative (Negative); Urine Ketones Negative (Negative); Urine Protein 30 (1+) mg/dL (Neg-Trace)
[2024-05-30 16:16] LABS: Anion Gap 13 (12-20); Blood Urea Nitrogen 21 mg/dL (9-16); Calcium 9.6 mg/dL (8.4-10.2); Carbon Dioxide 18 mmol/L (22-29); Chloride 105 mmol/L (96-108); Estimated Glomerular Filt Rate 33; Glucose Random 109 mg/dL (60-115); Potassium 4.5 mmol/L (3.3-5.1); Sodium 131 mmol/L (135-145)
[2024-05-30 16:33] LABS: Creatinine Urine 43.77 mg/dL; Total Protein Urine Random 25 mg/dL (<12)
[2024-05-30 20:16] LABS: Bacteria Urine None Seen (None Seen); Hyaline Casts Urine 0-2 /LPF (0-2); RBC Urine 0-2 /HPF (0-2); Squamous Epithelial Cell Urine 0-2 /HPF (0-2); WBC Urine 0-5 /HPF (0-5)
[2024-06-03 22:59] LABS: Prot Elec - Alpha1 0.3 g/dL (0.2-0.3); Prot Elec - Alpha2 0.7 g/dL (0.5-0.9); Prot Elec - Beta 1 0.5 g/dL (0.4-0.6); Prot Elec - Beta 2 0.5 g/dL (0.2-0.5); Prot Elec - Gamma 1.1 g/dL (0.8-1.7); Prot Elec - Total Protein 7.1 g/dL (6.1-8.1)
== END 2024-05-30 14:50 | disposition home or self-care (01) ==
LOC: HO.HHCL 14:49
PROVIDERS: Visit Provider Internal Medicine Hypertension Specialist
DX: N18.9 Chronic kidney disease, unspecified (principal); E87.5 Hyperkalemia
CPT/HCPCS: 36415; 80048; 81001; 81003; 82570; 83605; 84156; 84165; 85025; 99202

== ENCOUNTER 2024-06-18 13:32 | Outpatient (REF) | payer MEDICAID, SELFPAY ==
--- NOTE | ~2024-06-18 | US_ITS ---
EXAMINATION: US RETROPERITONEAL LIMITED (RENAL ONLY) CLINICAL INFORMATION: Chronic kidney disease, unspecified. COMPARISON: CT abdomen and pelvis 04/12/2018. TECHNIQUE: Real-time imaging of the kidneys. FINDINGS: RIGHT KIDNEY: 10.1 x 4.5 x 5.8 cm (SAG x AP x TRV). The kidney is normal in size, contour, and echogenicity. Renal cortical thickness is normal. No calculi or focal parenchymal lesions. There is minimal pelvic fullness but no hydronephrosis. LEFT KIDNEY: 11.5 x 5.3 x 4.1 cm (SAG x AP x TRV). The kidney is normal in size, contour, and echogenicity. Renal cortical thickness is normal. No calculi or focal parenchymal lesions. There is minimal pelvic fullness but no hydronephrosis. US/US renal BI IMPRESSION: Normal-appearing kidneys. Electronically signed by: Leonides Solano MD 08/10/2024 10:47 AM [facility]
== END 2024-06-18 13:33 | disposition home or self-care (01) ==
LOC: HO.US 13:32
PROVIDERS: PCP Internal Medicine Geriatric Medicine; Visit Provider Internal Medicine Hypertension Specialist
DX: N18.9 Chronic kidney disease, unspecified (principal); E87.5 Hyperkalemia
CPT/HCPCS: 76775

== ENCOUNTER 2024-06-20 15:33 | Outpatient (AMB) | payer MEDICAID, SELFPAY ==
--- NOTE | 2024-06-20 15:26 | HO.NEPHOV_ITS ---
Vital Signs 06/20/24 15:46 Height 5 ft 3 in Weight 137 lb BMI 24.3 BP 120/62 Blood Pressure Location Lt brachial Position Sitting Pulse 86 Pulse Source Pulse Oximeter Pulse Oximetry (%) 100 Oxygen Delivery Method Room Air Intake Visit Reasons: 3-4 wks follow up Cook Roast Required: Yes Cook Roast Name: [id number] vick Accompanied by: Daughter Allergies iron Allergy (Mild, Verified 06/20/24 15:48) UNKNOWN Iodinated Contrast Media [IV Dye, Iodine Containing] Allergy (Unknown, Verified 06/20/24 15:48) UNKNOWN iodine [IODINE] Allergy (Unknown, Verified 06/20/24 15:48) RASH SEAFOOD Allergy (Unknown, Uncoded 03/08/24 03:45) UNKNOWN Medication List - Last Reconciled 06/20/24 by Violet Lima, DNP, [employer] amlodipine 5 mg PO BEDTIME aspirin 81 mg PO DAILY atorvastatin 20 mg PO BEDTIME benztropine 0.5 mg PO BID bisacodyl (Dulcolax (bisacodyl)) 10 mg UT DAILY PRN cefuroxime axetil 250 mg PO BID 7 days docusate sodium (Stool Softener) 200 mg (2 x 100 mg) PO BEDTIME ergocalciferol (vitamin D2) 1 cap PO GUERRA@0900 fluoxetine 10 mg PO DAILY gabapentin 100 mg PO BEDTIME haloperidol 1 tab PO BID insulin glargine (Lantus Solostar U-100 Insulin) 20 units (0.2 mL) subcut QPM insulin syringe-needle U-100 (UltiCare) As directed losartan 25 mg PO DAILY metformin 1,000 mg PO BID metoprolol succinate ER 50 mg PO DAILY mirtazapine 7.5 mg PO BEDTIME paczpdwd-blb-rwor-FA-vit K-lut 8 mg iron-400 mcg-50 mcg (Centrum Silver Women) 1 tab PO DAILY pantoprazole 40 mg PO QAM 30 days pen needle, diabetic As directed polyethylene glycol 3350 (Miralax) 17 grams PO DAILY 30 days prazosin 4 mg PO BEDTIME prazosin 2 mg PO DAILY HPI Comments Details: 59-year-old woman with a history of diabetes mellitus referred for chronic kidney disease. Baseline creatinine is around 1.0 mg/dL. Recently creatinine bumped up to 1.5. Last year the serum creatinine had bumped to 1. 9 and she had CAMPOS due to hypoperfusion. CAMPOS subsequently resolved She has had mild chronic hyponatremia. Recently potassium bumped up to 5.5 by the specimen was slightly hemolyzed. She also has persistent mild metabolic acidosis. Ongoing medical problems include longstanding diabetes mellitus. Overall blood sugar has been better controlled recently. History of hypertension. Blood pressure has been well controlled. Today she was accompanied by her daughter. Cook Roast service was used. She smokes less than 10 cigarettes a day. No history of any alcohol abuse 06/20/24: continues with chronic mild hyponatremia potassium repeat on 05/30 normalized (4.5) continues with metabolic acidosis; lactate level normal. (on metformin). renal US results from 06/18 pending Creatinine has bumped from to 1.58 from 1.41 with last blood work: 02/06/24 0.96 03/08/24 Cr 1.63 05/20/24 1.41 05/30/24 1.58 Urine 05/30 mild protein (25), +glucose, negative for blood, leukocyte esterace, casts, WBC currently taking amlodipine 5mg daily, losartan 25mg daily, and metoprolol ER 50mg daily for BP control pt eating low sodium diet has not been restricting her oral free water to 1.2L daily, she will start this sugars are doing well still smoking, not ready to cut down no NSAIDs denies changes to OTC/prescribed medications since last visit [facility] Medical History Dysphagia Anxiety disorder GERD (gastroesophageal reflux disease) Migraines Asthma On beta jordyn at home Elevated cholesterol HTN (hypertension) Smoker Diabetes Depression Heartburn Surgical History Hx of left knee surgery History of tubal ligation History of esophagogastroduodenoscopy (EGD) H/O colonoscopy Hx of cholecystectomy Social History Household Members: Family Housing: Apartment Alcohol intake: former Patient Tobacco Use Status: Current everyday Tobacco user Tobacco use type: Cigarette Cigarettes Per Day: 6 Second Hand Smoke Exposure: Yes service: No Current occupational status: disabled Review of Systems Const Denies fever(s) and Denies weight loss Card Denies chest pain and Denies dyspnea Resp Denies cough and Denies dyspnea GI Denies abdominal pain, Denies diarrhea and Denies nausea Denies hematuria, Denies difficulty voiding and Denies dysuria Musc Denies back pain Skin/Breast Denies rash Neuro Denies focal weakness Physical Exam Vital Signs: Last Vital Signs Pulse 86 06/20/24 15:46 BP 120/62 06/20/24 15:46 Pulse Ox 100 06/20/24 15:46 Oxygen Delivery Method Room Air 06/20/24 15:46 BMI result Body Mass Index 24.3 Const General: comfortable; No acute distress Orientation/consciousness: patient oriented x3 Eyes General: appearance normal, both eyes and all related structures Visual Bui: normal visual bui by confrontation Neck Neck: Yes supple and Yes no JVD Resp Effort & Inspection: normal respiratory effort and respiratory effort not decreased Auscultation: rhonchi Cardio Palpation: no palpable S3 and no palpable S4 Heart sounds: no rubs GI Inspection: Yes normal to inspection Palpation (GI): Soft to palpation Percussion: Yes normal to percussion Auscultation: normal bowel sounds General: Yes no CVA tenderness Back/Spine/Pelvis Back: no CVA tenderness Skin General skin exam: no petechiae and no purpura Neuro General: patient oriented x3 and no focal motor deficits Extrem General: No edema Results Reviewed Nephrology Results: Hgb 11.2 g/dl (12.0-16.0) L 05/30/24 WBC 7.4 X10*3/uL (4.8-10.8) 05/30/24 Plt Count 344 X10*3/uL (160-400) 05/30/24 Sodium 131 mmol/L (135-145) L 05/30/24 Potassium 4.5 mmol/L (3.3-5.1) 05/30/24 Chloride 105 mmol/L (96-108) 05/30/24 Carbon Dioxide 18 mmol/L (22-29) L 05/30/24 BUN 21 mg/dL (9-16) H 05/30/24 Creatinine 1.58 mg/dL (0.5-1.4) H 05/30/24 Calcium 9.6 mg/dL (8.4-10.2) 05/30/24 Urine Protein 30 (1+) mg/dL (Neg-Trace) H 05/30/24 Urine Creatinine 43.77 mg/dL 05/30/24 Renal US 06/18/24 Assessment & Plan Assessment & Plan (1) CKD (chronic kidney disease): Comment: Most likely due to underlying diabetic kidney disease. Her creatinine has increased from last labs; given glucosuria, creatinine increase may be related to ?SGLT2 not on med list- pt is not sure, she will bring her medications with her the next time she comes in; does have appearance of mild hydronephrosis on recent renal imaging, though official read is not back; will consider urology referral if official read indicates obstruction No evidence of active glomerular nephritis or interstitial disease based on recent UA Code(s): N18.9 - Chronic kidney disease, unspecified Category: Medical Qualifiers: Chronic kidney disease stage: stage 3 (moderate) Chronic kidney disease stage 3 subtype: stage 3b (GFR 30-44) Qualified Code(s): N18.32 - Chronic kidney disease, stage 3b (2) Diabetes: Comment: We will submit an A1c less than 7% Code(s): E11.9 - Type 2 diabetes mellitus without complications Category: Medical Qualifiers: Diabetes mellitus complication detail: with nephropathy Diabetes mellitus complication status: with kidney complications Diabetes mellitus ad terminal makeup operator insulin use: with fdc use Diabetes mellitus type: type 2 Qualified Code(s): E11.21 - Type 2 diabetes mellitus with diabetic nephropathy; Z79.4 - shelter (current) use of insulin (3) Hyponatremia: Comment: Chronic and asymptomatic. Probably has decreased free water clearance secondary to use of SSRI. She has not been restricting her free water; states she will work on this- advised restrict to 1.2L of free water daily. Code(s): E87.1 - Hypo-osmolality and hyponatremia Category: Medical (4) Metabolic acidosis: Comment: Differential diagnosis include due to renal failure. lactic acid WNL with last lab check requested she bring in full medication list or medications themselves for next visit in 1 month Code(s): E87.20 - Acidosis, unspecified Category: Medical (5) Hyperkalemia: Comment: Resolved (likely secondary to hemolysis with initial specimen on 05/20 Code(s): E87.5 - Hyperkalemia Category: Medical Plan Workup continues as below Recheck renal panel to follow serum creatinine. Discussed importance of blood sugar control, smoking cessation, blood pressure control (healthy diet, minimize excess salt in diet). Official renal US read pending to rule out obstruction and to check echogenicity; will consider referral to urology of obstruction is suggested Stay on low-sodium diet Optimize blood sugar and blood pressure. Restrict oral free water intake to less than 1.2 L and watch serum sodium. advised needs to bring full medication list or medications themselves to next visit Further workup and management will depend on the outcome of the above baseline investigations follow up in 1 month Orders: Orders Hemoglobin A1c 06/20/24 E11.65 - Type 2 diabetes mellitus with hyperglycemia Basic Metabolic Panel 06/20/24 N18.30 - Chronic kidney disease, stage 3 unspecified, E87.1 - Hypo-osmolality and hyponatremia, N18.9 - Chronic kidney disease, unspecified, E11.9 - Type 2 diabetes mellitus without complications UA CC w/rflx Micro + Cult 06/20/24 E87.1 - Hypo-osmolality and hyponatremia, N18.9 - Chronic kidney disease, unspecified, E11.9 - Type 2 diabetes mellitus without complications Total Protein Urine Random 06/20/24 E87.1 - Hypo-osmolality and hyponatremia, N18.9 - Chronic kidney disease, unspecified, E11.9 - Type 2 diabetes mellitus without complications Creatinine Urine 06/20/24 E11.9 - Type 2 diabetes mellitus without complications, N18.9 - Chronic kidney disease, unspecified Complete Blood Count Auto Diff 06/20/24 E11.9 - Type 2 diabetes mellitus without complications, N18.9 - Chronic kidney disease, unspecified Coding Level of Care Code Est Pt Level 4 (35667) Diagnoses Stage 3b chronic kidney disease N18.32 Chronic kidney disease stage: stage 3 (moderate) Chronic kidney disease stage 3 subtype: stage 3b (GFR 30-44) Type 2 diabetes mellitus with diabetic nephropathy, with long-term current use of insulin E11.21; Z79.4 Diabetes mellitus complication detail: with nephropathy Diabetes mellitus complication status: with kidney complications Diabetes mellitus fdc insulin use: with ad terminal makeup operator use Diabetes mellitus type: type 2 Hyponatremia E87.1 Metabolic acidosis E87.20 Hyperkalemia E87.5
[2024-06-20 15:46] VITALS: BP 120/62; PULSE 86; O2SAT 100; BMI 24.3
== END 2024-06-20 16:22 | disposition home or self-care (01) ==
PROVIDERS: PCP Internal Medicine Geriatric Medicine; Visit Provider Internal Medicine Hypertension Specialist
DX: N18.32 Chronic kidney disease, stage 3b (principal); E11.21 Type 2 diabetes mellitus with diabetic nephropathy; Z79.4 Long term (current) use of insulin; E87.1 Hypo-osmolality and hyponatremia; E87.20 Acidosis, unspecified; E87.5 Hyperkalemia
CPT/HCPCS: 99214

== ENCOUNTER → 2024-06-20 15:33 | Outpatient (BNVA) | payer MEDICAID, SELFPAY | PROVIDERS: PCP Internal Medicine Geriatric Medicine; Visit Provider Internal Medicine Hypertension Specialist | DX: E11.22 Type 2 diabetes mellitus with diabetic chronic kidney disease (principal); E11.21 Type 2 diabetes mellitus with diabetic nephropathy; E11.65 Type 2 diabetes mellitus with hyperglycemia; E87.1 Hypo-osmolality and hyponatremia; E87.20 Acidosis, unspecified; E87.5 Hyperkalemia; I12.9 Hypertensive chronic kidney disease with stage 1 through stage 4 chronic kidney disease, or unspecified chronic kidney disease; N18.32 Chronic kidney disease, stage 3b; F17.210 Nicotine dependence, cigarettes, uncomplicated; Z79.4 Long term (current) use of insulin | CPT/HCPCS: 99212 ==

== ENCOUNTER 2024-07-15 11:41 | Outpatient (REF) | payer MEDICAID, SELFPAY ==
[2024-07-15 12:26] LABS: MANUAL DIFF FLAG NO
[2024-07-15 13:17] LABS: Basophils Absolute Auto 0.1 X10*3/uL (0.0-0.2); Basophils Percent Auto 0.9 % (0-2); Eosinophils Absolute Auto 0.5 X10*3/uL (0.0-0.4); Hematocrit 36.2 % (37.0-47.0); Hemoglobin 11.9 g/dl (12.0-16.0); Imm Gran Abs Auto 0.08 X10*3/uL (0.00-0.03); Imm Gran Pct Auto 1.1 % (0.0-0.4); Lymphocytes Absolute Auto 1.9 X10*3/uL (1.2-4.9); Lymphocytes Percent Auto 27.1 % (20-40); Mean Corpuscular HGB Conc 32.9 g/dl (31.0-35.0); Mean Corpuscular Hemoglobin 28.6 pg (27.0-33.0); Monocytes Absolute Auto 0.5 X10*3/uL (0.1-1.2); Monocytes Percent Auto 7.4 % (2-11); Neutrophils Percent Auto 56.5 % (45-73); Platelet Count 295 X10*3/uL (160-400); Red Blood Count 4.16 X10*6/uL (4.20-5.50); Red Cell Distribution Width 14.7 % (11.0-16.0); White Blood Count 7.1 X10*3/uL (4.8-10.8)
[2024-07-15 13:37] LABS: Estimated Average Glucose 203 mg/dL; Hemoglobin A1C 215.4757 umol/L; Hemoglobin A1c % 8.7 % (<6.0)
[2024-07-15 13:38] LABS: Appearance Urine Clear; Color Urine Yellow; Glucose Urine UA >=1000 mg/dL (Negative); Leukocyte Esterase Urine Negative (Negative); Nitrite Urine Negative (Negative); UMIC TRIGGER UACC YES; Urine Blood Negative (Negative); Urine Ketones Negative (Negative); Urine Protein Negative (Neg-Trace)
[2024-07-15 13:44] LABS: Bacteria Urine 1+ (None Seen); Hyaline Casts Urine 0-2 /LPF (0-2); RBC Urine 0-2 /HPF (0-2); Squamous Epithelial Cell Urine 0-2 /HPF (0-2); WBC Urine 0-5 /HPF (0-5)
[2024-07-15 14:59] LABS: Anion Gap 14 (12-20); Blood Urea Nitrogen 34 mg/dL (9-16); Calcium 10.4 mg/dL (8.4-10.2); Carbon Dioxide 20 mmol/L (22-29); Chloride 95 mmol/L (96-108); Estimated Glomerular Filt Rate 29; Glucose Random 604 mg/dL (60-115); Potassium 5.2 mmol/L (3.3-5.1); Sodium 124 mmol/L (135-145)
[2024-07-15 15:10] LABS: Creatinine Urine 16.49 mg/dL; Total Protein Urine Random 10 mg/dL (<12)
== END 2024-07-15 11:42 | disposition home or self-care (01) ==
LOC: HO.LAB 11:41
PROVIDERS: Nurse Practitioner Family; PCP Internal Medicine Geriatric Medicine; Visit Provider Internal Medicine Hypertension Specialist
DX: E11.22 Type 2 diabetes mellitus with diabetic chronic kidney disease (principal); E11.65 Type 2 diabetes mellitus with hyperglycemia; N18.30 Chronic kidney disease, stage 3 unspecified; N18.9 Chronic kidney disease, unspecified; E87.1 Hypo-osmolality and hyponatremia
CPT/HCPCS: 36415; 80048; 81001; 82570; 83036; 84156; 85025

== ENCOUNTER 2024-07-23 14:33 | Outpatient (AMB) | payer MEDICAID, SELFPAY ==
--- NOTE | 2024-07-23 14:40 | HO.NEPHOV ---
Vital Signs 07/23/24 14:51 Height 5 ft 3 in Weight 143 lb BMI 25.3 BP 112/66 Blood Pressure Location Rt brachial Position Sitting Pulse 85 Pulse Source Pulse Oximeter Pulse Oximetry (%) 95 Oxygen Delivery Method Room Air Intake Visit Reasons: CKD/ Conf Accelerator Operator Required: Yes Accelerator Operator Name: [id number] [place] Allergies iron Allergy (Mild, Verified 07/23/24 14:53) UNKNOWN Iodinated Contrast Media [IV Dye, Iodine Containing] Allergy (Unknown, Verified 07/23/24 14:53) UNKNOWN iodine [IODINE] Allergy (Unknown, Verified 07/23/24 14:53) RASH SEAFOOD Allergy (Unknown, Uncoded 03/08/24 03:45) UNKNOWN Medication List - Last Reconciled 07/23/24 by Torrey Patel MD amlodipine 5 mg PO BEDTIME aspirin 81 mg PO DAILY atorvastatin 20 mg PO BEDTIME benztropine 0.5 mg PO BID bisacodyl (Dulcolax (bisacodyl)) 10 mg [place] DAILY PRN cefuroxime axetil 250 mg PO BID 7 days docusate sodium (Stool Softener) 200 mg (2 x 100 mg) PO BEDTIME ergocalciferol (vitamin D2) 1 cap PO GUERRA@0900 fluoxetine 10 mg PO DAILY gabapentin 100 mg PO BEDTIME haloperidol 1 tab PO BID insulin glargine (Lantus Solostar U-100 Insulin) 30 units subcut QPM insulin syringe-needle U-100 (UltiCare) As directed losartan 25 mg PO DAILY metoprolol succinate ER 50 mg PO DAILY mirtazapine 7.5 mg PO BEDTIME mvhboflt-oub-dplh-FA-vit K-lut 8 mg iron-400 mcg-50 mcg (Centrum Silver Women) 1 tab PO DAILY pantoprazole 40 mg PO QAM 30 days pen needle, diabetic As directed polyethylene glycol 3350 (Miralax) 17 grams PO DAILY 30 days prazosin 4 mg PO BEDTIME prazosin 2 mg PO DAILY HPI Comments Details: 59-year-old woman with a history of diabetes mellitus referred for chronic kidney disease. Baseline creatinine is around 1.0 mg/dL. Recently creatinine bumped up to 1.5. Last year the serum creatinine had bumped to 1. 9 and she had CAMPOS due to hypoperfusion. CAMPOS subsequently resolved She has had mild chronic hyponatremia. Recently potassium bumped up to 5.5 by the specimen was slightly hemolyzed. She also has persistent mild metabolic acidosis. Ongoing medical problems include longstanding diabetes mellitus. Overall blood sugar has been better controlled recently. History of hypertension. Blood pressure has been well controlled. Today she was accompanied by her daughter. Accelerator Operator service was used. She smokes less than 10 cigarettes a day. No history of any alcohol abuse 06/20/24: continues with chronic mild hyponatremia potassium repeat on 05/30 normalized (4.5) continues with metabolic acidosis; lactate level normal. (on metformin). renal US results from 06/18 pending Creatinine has bumped from to 1.58 from 1.41 with last blood work: 02/06/24 0.96 03/08/24 Cr 1.63 05/20/24 1.41 05/30/24 1.58 Urine 05/30 mild protein (25), +glucose, negative for blood, leukocyte esterace, casts, WBC currently taking amlodipine 5mg daily, losartan 25mg daily, and metoprolol ER 50mg daily for BP control pt eating low sodium diet has not been restricting her oral free water to 1.2L daily, she will start this sugars are doing well still smoking, not ready to cut down no NSAIDs denies changes to OTC/prescribed medications since last visit 07/23/24 Denies any compliants Metformin has been discontinued [facility] Medical History Dysphagia Anxiety disorder GERD (gastroesophageal reflux disease) Migraines Asthma On beta jordyn at home Elevated cholesterol HTN (hypertension) Smoker Diabetes Depression Heartburn Surgical History Hx of left knee surgery History of tubal ligation History of esophagogastroduodenoscopy (EGD) H/O colonoscopy Hx of cholecystectomy Social History Household Members: Family Housing: Apartment Alcohol intake: former Patient Tobacco Use Status: Current everyday Tobacco user Tobacco use type: Cigarette Cigarettes Per Day: 6 Second Hand Smoke Exposure: Yes service: No Current occupational status: disabled Physical Exam Vital Signs: Last Vital Signs Pulse 85 07/23/24 14:51 BP 112/66 07/23/24 14:51 Pulse Ox 95 07/23/24 14:51 Oxygen Delivery Method Room Air 07/23/24 14:51 BMI result Body Mass Index 25.3 Results Reviewed Nephrology Results: Hgb 11.9 g/dl (12.0-16.0) L 07/15/24 WBC 7.1 X10*3/uL (4.8-10.8) 07/15/24 Plt Count 295 X10*3/uL (160-400) 07/15/24 Sodium 124 mmol/L (135-145) L 07/15/24 Potassium 5.2 mmol/L (3.3-5.1) H 07/15/24 Chloride 95 mmol/L (96-108) L 07/15/24 Carbon Dioxide 20 mmol/L (22-29) L 07/15/24 BUN 34 mg/dL (9-16) H 07/15/24 Creatinine 1.80 mg/dL (0.5-1.4) H 07/15/24 Calcium 10.4 mg/dL (8.4-10.2) H 07/15/24 Urine Protein Negative mg/dL (Neg-Trace) 07/15/24 Urine Creatinine 16.49 mg/dL 07/15/24 Renal US 06/18/24 Assessment & Plan Assessment & Plan (1) CKD (chronic kidney disease): Comment: Most likely due to underlying diabetic kidney disease. Code(s): N18.9 - Chronic kidney disease, unspecified Category: Medical Qualifiers: Chronic kidney disease stage: stage 3 (moderate) Chronic kidney disease stage 3 subtype: stage 3b (GFR 30-44) Qualified Code(s): N18.32 - Chronic kidney disease, stage 3b Plan: Superimposed CAMPOS NO evidence of obstructionProbably has hypoperfusion Will HOLD Losartan (2) Diabetes: Comment: Goal A1c less than 7% Code(s): E11.9 - Type 2 diabetes mellitus without complications Category: Medical Qualifiers: Diabetes mellitus type: type 2 Diabetes mellitus exterminator helper termite insulin use: with exterminator helper termite use Diabetes mellitus complication status: with kidney complications Diabetes mellitus complication detail: with nephropathy Qualified Code(s): E11.21 - Type 2 diabetes mellitus with diabetic nephropathy; Z79.4 - longterm (current) use of insulin (3) Hyponatremia: Comment: Chronic and asymptomatic. Probably has decreased free water clearance secondary to use of SSRI. Hyperglycemia could be a contributing factor ( BS 604) Code(s): E87.1 - Hypo-osmolality and hyponatremia Category: Medical (4) Metabolic acidosis: Code(s): E87.20 - Acidosis, unspecified Category: Medical (5) Hyperkalemia: Code(s): E87.5 - Hyperkalemia Category: Medical Plan Optimize blood sugar and blood pressure. Restrict oral free water intake to less than 1.2 L and watch serum sodium. Medications: Changed From insulin glargine (Lantus Solostar U-100 Insulin) 20 units (0.2 mL) subcut QPM 15 mL 3RF To insulin glargine (Lantus Solostar U-100 Insulin) 30 units subcut QPM Coding Level of Care Code Est Pt Level 4 (07884) Diagnoses Stage 3b chronic kidney disease N18.32 Chronic kidney disease stage: stage 3 (moderate) Chronic kidney disease stage 3 subtype: stage 3b (GFR 30-44) Type 2 diabetes mellitus with diabetic nephropathy, with long-term current use of insulin E11.21; Z79.4 Diabetes mellitus type: type 2 Diabetes mellitus senior care insulin use: with exterminator helper termite use Diabetes mellitus complication status: with kidney complications Diabetes mellitus complication detail: with nephropathy Hyponatremia E87.1 Metabolic acidosis E87.20 Hyperkalemia E87.5
[2024-07-23 14:51] VITALS: BP 112/66; PULSE 85; O2SAT 95; BMI 25.3
== END 2024-07-23 15:28 | disposition home or self-care (01) ==
PROVIDERS: PCP Internal Medicine Geriatric Medicine; Visit Provider Internal Medicine Hypertension Specialist
DX: E11.22 Type 2 diabetes mellitus with diabetic chronic kidney disease (principal); N18.32 Chronic kidney disease, stage 3b; Z79.4 Long term (current) use of insulin; E87.1 Hypo-osmolality and hyponatremia; E87.20 Acidosis, unspecified; E87.5 Hyperkalemia
CPT/HCPCS: 99214

== ENCOUNTER → 2024-07-23 14:33 | Outpatient (BNVA) | payer MEDICAID, SELFPAY | PROVIDERS: PCP Internal Medicine Geriatric Medicine; Visit Provider Internal Medicine Hypertension Specialist | DX: E11.22 Type 2 diabetes mellitus with diabetic chronic kidney disease (principal); N18.32 Chronic kidney disease, stage 3b; E11.21 Type 2 diabetes mellitus with diabetic nephropathy; E87.1 Hypo-osmolality and hyponatremia; E87.20 Acidosis, unspecified; E87.5 Hyperkalemia; Z79.4 Long term (current) use of insulin | CPT/HCPCS: 99212 ==

== ENCOUNTER 2024-08-22 10:42 | Outpatient (REF) | payer MEDICAID, SELFPAY ==
[2024-08-22 12:11] LABS: Anion Gap 15 (12-20); Blood Urea Nitrogen 36 mg/dL (9-16); Carbon Dioxide 17 mmol/L (22-29); Chloride 106 mmol/L (96-108); Estimated Glomerular Filt Rate 25; Glucose Random 187 mg/dL (60-115); Potassium 5.4 mmol/L (3.3-5.1); Sodium 133 mmol/L (135-145)
== END 2024-08-22 10:43 | disposition home or self-care (01) ==
LOC: HO.LAB 10:42
PROVIDERS: PCP Internal Medicine Geriatric Medicine; Visit Provider Internal Medicine Hypertension Specialist
DX: E87.1 Hypo-osmolality and hyponatremia (principal); N18.32 Chronic kidney disease, stage 3b
CPT/HCPCS: 36415; 80048

== ENCOUNTER 2024-08-27 11:35 | Outpatient (AMB) | payer MEDICAID, SELFPAY ==
[2024-08-27 11:37] VITALS: BP 130/78; PULSE 101; O2SAT 77; BMI 26.4
--- NOTE | 2024-08-27 11:37 | HO.NEPHOV_ITS ---
Vital Signs 08/27/24 11:37 Height 5 ft 3 in Weight 149 lb BMI 26.4 BP 130/78 Blood Pressure Location Lt brachial Position Sitting Pulse 101 H Pulse Source Pulse Oximeter Pulse Oximetry (%) 77 L Oxygen Delivery Method Room Air Intake Visit Reasons: CKD/ Conf Metallurgist Helper Required: Yes Metallurgist Helper Name: rene [phone] Accompanied by: Daughter Allergies iron Allergy (Mild, Verified 08/27/24 11:39) UNKNOWN Iodinated Contrast Media [IV Dye, Iodine Containing] Allergy (Unknown, Verified 08/27/24 11:39) UNKNOWN iodine [IODINE] Allergy (Unknown, Verified 08/27/24 11:39) RASH SEAFOOD Allergy (Unknown, Uncoded 03/08/24 03:45) UNKNOWN Medication List - Last Reconciled 08/27/24 by Torrey Patel MD amlodipine 5 mg PO BEDTIME aspirin 81 mg PO DAILY atorvastatin 20 mg PO BEDTIME benztropine 0.5 mg PO BID bisacodyl (Dulcolax (bisacodyl)) 10 mg [place] DAILY PRN cefuroxime axetil 250 mg PO BID 7 days docusate sodium (Stool Softener) 200 mg (2 x 100 mg) PO BEDTIME ergocalciferol (vitamin D2) 1 cap PO GUERRA@0900 fluoxetine 10 mg PO DAILY gabapentin 100 mg PO BEDTIME haloperidol 1 tab PO BID insulin glargine (Lantus Solostar U-100 Insulin) 20 units subcut QPM insulin syringe-needle U-100 (UltiCare) As directed metoprolol succinate ER 50 mg PO DAILY mirtazapine 7.5 mg PO BEDTIME ddnohmqa-yql-iqfc-FA-vit K-lut 8 mg iron-400 mcg-50 mcg (Centrum Silver Women) 1 tab PO DAILY pantoprazole 40 mg PO QAM 30 days pen needle, diabetic As directed polyethylene glycol 3350 (Miralax) 17 grams PO DAILY 30 days prazosin 4 mg PO BEDTIME prazosin 2 mg PO DAILY HPI Comments Details: 59-year-old woman with a history of diabetes mellitus referred for chronic kidney disease. Baseline creatinine is around 1.0 mg/dL. Recently creatinine bumped up to 1.5. Last year the serum creatinine had bumped to 1. 9 and she had CAMPOS due to hypoperfusion. CAMPOS subsequently resolved She has had mild chronic hyponatremia. Recently potassium bumped up to 5.5 by the specimen was slightly hemolyzed. She also has persistent mild metabolic acidosis. Ongoing medical problems include longstanding diabetes mellitus. Overall blood sugar has been better controlled recently. History of hypertension. Blood pressure has been well controlled. Today she was accompanied by her daughter. Metallurgist Helper service was used. She smokes less than 10 cigarettes a day. No history of any alcohol abuse 06/20/24: continues with chronic mild hyponatremia potassium repeat on 05/30 normalized (4.5) continues with metabolic acidosis; lactate level normal. (on metformin). renal US results from 06/18 pending Creatinine has bumped from to 1.58 from 1.41 with last blood work: 02/06/24 0.96 03/08/24 Cr 1.63 05/20/24 1.41 05/30/24 1.58 Urine 05/30 mild protein (25), +glucose, negative for blood, leukocyte esterace, casts, WBC currently taking amlodipine 5mg daily, losartan 25mg daily, and metoprolol ER 50mg daily for BP control pt eating low sodium diet has not been restricting her oral free water to 1.2L daily, she will start this sugars are doing well still smoking, not ready to cut down no NSAIDs denies changes to OTC/prescribed medications since last visit 07/23/24 Denies any compliants;Off Metformin 08/27/24 No new issues [facility] Medical History Dysphagia Anxiety disorder GERD (gastroesophageal reflux disease) Migraines Asthma On beta jordyn at home Elevated cholesterol HTN (hypertension) Smoker Diabetes Depression Heartburn Surgical History Hx of left knee surgery History of tubal ligation History of esophagogastroduodenoscopy (EGD) H/O colonoscopy Hx of cholecystectomy Social History Household Members: Family Housing: Apartment Alcohol intake: former Patient Tobacco Use Status: Current everyday Tobacco user Tobacco use type: Cigarette Cigarettes Per Day: 6 Second Hand Smoke Exposure: Yes service: No Current occupational status: disabled Physical Exam Vital Signs: Last Vital Signs Pulse 101 H 08/27/24 11:37 BP 130/78 08/27/24 11:37 Pulse Ox 77 L 08/27/24 11:37 Oxygen Delivery Method Room Air 08/27/24 11:37 BMI result Body Mass Index 26.4 Results Reviewed Nephrology Results: Hgb 11.9 g/dl (12.0-16.0) L 07/15/24 WBC 7.1 X10*3/uL (4.8-10.8) 07/15/24 Plt Count 295 X10*3/uL (160-400) 07/15/24 Sodium 133 mmol/L (135-145) L 08/22/24 Potassium 5.4 mmol/L (3.3-5.1) H 08/22/24 Chloride 106 mmol/L (96-108) 08/22/24 Carbon Dioxide 17 mmol/L (22-29) L 08/22/24 BUN 36 mg/dL (9-16) H 08/22/24 Creatinine 1.99 mg/dL (0.5-1.4) H 08/22/24 Calcium 10.0 mg/dL (8.4-10.2) 08/22/24 Urine Protein Negative mg/dL (Neg-Trace) 07/15/24 Urine Creatinine 16.49 mg/dL 07/15/24 Renal US 06/18/24 Assessment & Plan Assessment & Plan (1) CKD (chronic kidney disease): Comment: Most likely due to underlying diabetic kidney disease. Code(s): N18.9 - Chronic kidney disease, unspecified Category: Medical Qualifiers: Chronic kidney disease stage: stage 3 (moderate) Chronic kidney disease stage 3 subtype: stage 3b (GFR 30-44) Qualified Code(s): N18.32 - Chronic kidney disease, stage 3b Plan: Superimposed CAMPOS NO evidence of obstructionProbably has hypoperfusion Will HOLD Losartan (2) Diabetes: Comment: Goal A1c less than 7% Code(s): E11.9 - Type 2 diabetes mellitus without complications Category: Medical Qualifiers: Diabetes mellitus complication detail: with nephropathy Diabetes mellitus complication status: with kidney complications Diabetes mellitus long-term insulin use: with keno terminal operator use Diabetes mellitus type: type 2 Qualified Code(s): E11.21 - Type 2 diabetes mellitus with diabetic nephropathy; Z79.4 - middle or intermediate school principal (current) use of insulin (3) Hyponatremia: Comment: Chronic and asymptomatic. Probably has decreased free water clearance secondary to use of SSRI. Hyperglycemia could be a contributing factor ( BS 604) Code(s): E87.1 - Hypo-osmolality and hyponatremia Category: Medical (4) Metabolic acidosis: Code(s): E87.20 - Acidosis, unspecified Category: Medical (5) Hyperkalemia: Code(s): E87.5 - Hyperkalemia Category: Medical Plan: Add LOKELMA 2 x week Plan Optimize blood sugar and blood pressure. Restrict oral free water intake to less than 1.2 L and watch serum sodium. Orders: Orders Basic Metabolic Panel 6 Weeks E87.5 - Hyperkalemia, N18.32 - Chronic kidney disease, stage 3b Medications: New sodium zirconium cyclosilicate (Lokelma) 5 grams PO .twice a week 11 ea 1RF Coding Level of Care Code Est Pt Level 4 (63171) Diagnoses Stage 3b chronic kidney disease N18.32 Chronic kidney disease stage: stage 3 (moderate) Chronic kidney disease stage 3 subtype: stage 3b (GFR 30-44) Type 2 diabetes mellitus with diabetic nephropathy, with long-term current use of insulin E11.21; Z79.4 Diabetes mellitus complication detail: with nephropathy Diabetes mellitus complication status: with kidney complications Diabetes mellitus long-term insulin use: with long-term use Diabetes mellitus type: type 2 Hyponatremia E87.1 Metabolic acidosis E87.20 Hyperkalemia E87.5
== END 2024-08-27 11:51 | disposition home or self-care (01) ==
PROVIDERS: PCP Internal Medicine Geriatric Medicine; Visit Provider Internal Medicine Hypertension Specialist
DX: E11.22 Type 2 diabetes mellitus with diabetic chronic kidney disease (principal); N18.32 Chronic kidney disease, stage 3b; Z79.4 Long term (current) use of insulin; E87.1 Hypo-osmolality and hyponatremia; E87.20 Acidosis, unspecified; E87.5 Hyperkalemia
CPT/HCPCS: 99214

== ENCOUNTER → 2024-08-27 11:35 | Outpatient (BNVA) | payer MEDICAID, SELFPAY | PROVIDERS: PCP Internal Medicine Geriatric Medicine; Visit Provider Internal Medicine Hypertension Specialist | DX: E11.22 Type 2 diabetes mellitus with diabetic chronic kidney disease (principal); I12.9 Hypertensive chronic kidney disease with stage 1 through stage 4 chronic kidney disease, or unspecified chronic kidney disease; N18.32 Chronic kidney disease, stage 3b; E11.21 Type 2 diabetes mellitus with diabetic nephropathy; E87.1 Hypo-osmolality and hyponatremia; E87.20 Acidosis, unspecified; E87.5 Hyperkalemia; Z79.4 Long term (current) use of insulin | CPT/HCPCS: 99212 ==

== ENCOUNTER 2024-11-12 13:35 | Outpatient (REF) | payer MEDICAID, SELFPAY ==
[2024-11-12 14:49] LABS: Anion Gap 14 (12-20); Blood Urea Nitrogen 24 mg/dL (9-16); Carbon Dioxide 18 mmol/L (22-29); Chloride 96 mmol/L (96-108); Estimated Glomerular Filt Rate 25; Potassium 4.5 mmol/L (3.3-5.1); Sodium 123 mmol/L (135-145)
[2024-11-12 15:00] LABS: Glucose Random 666 mg/dL (60-115)
--- OUTSIDE RECORDS SUMMARY | 2024-11-12 17:07 | XMS_ITS | Encounter Summary ---
Author Organization [employer] Address [address] [facility] [address] [place] [address] Care Team Providers Care Soaking Pits Supervisor Name Role Phone Name, Nolan PADILLA Primary Care Provider Reason for Visit * Reason Comments Med Refill Encounter Details Date Type Department Care Team ([facility] st Contact Info) Description 10/22/2024 Refill [facility] MED & PEDS [address] [place], [place] [phone] Justyna Manuel MD [address] [place], [place] [phone] Diabetes mellitus type 2 in nonobese (CMS/HCC); Depression, unspecified depression type; Diabetic polyneuropathy associated with type 2 diabetes mellitus (CMS/HCC) Social History Tobacco Use Types Packs/Day Years Used Date Smoking Tobacco: Some Days Cigarettes Smokeless Tobacco: Never Alcohol Use Standard Drinks/Week Comments Never 0 (1 standard drink = 0.6 oz pur e alcohol) Depression Answer Date Recorded Patient Health Questionnaire-9 Score 7 04/18/2023 Housing Stability Answer Date Recorded What is your housing situation today? I have fredi jean 06/29/[address] you li ve. Do you have problems with any of the following? None of the above 06/29/2023 Food Insecurity Answer Date Recorded Within the past 12 months, y ou worried that your food would run out before you got money to buy more: Never True 06/29/2023 Within the past 12 months,th e food you bought just didn't last and you didn't have enough money to get more: Never True Transportation Answer Date Recorded In the past 12 months, has l ack of transportation kept you from medical appts, meetings, work or from getting things needed for daily living? No 06/29/2023 Utilities Answer Date Recorded In the past 12 months, has t he electric, gas, oil or water company threatened to shut off services in your home? No 06/29/2023 Depression Answer Date Recorded Patient Health Questionnaire-2 Score 2 04/18/2023 Comments Unknown Sex and Gender Information Value Date Recorded Sex Assigned at Female 07/11/2022 10:18 AM EDT Legal Sex Female 10:18 AM EDT Gender Identity Female 07/11/2022 10:18 AM EDT Sexual Orientation Straight 07/11/2022 10 :18 AM EDT documented as of this encounter Plan of Treatment Upcoming Encounters Date Type Department Care Team (Late st Contact Info) Description 12/11/2024 3:30 PM EDT Medication Management [facility] MEDICINE [address] [place] [address] Elizabeth Perez, PharmD [address] [place] [address] documented as of this encounter Visit Diagnoses Diagnosis Diabetes mellitus type 2 in nonobese (CMS/HCC) Type II or unspecified type diabetes mellitus without mention of complication, not stated as uncontrolled Depression, unspecified depression type Diabetic polyneuropathy associated with type 2 diabetes mellitus (CMS/HCC) documented in this encounter Additional Health Concerns Assessment Noted Time PHQ-9 Depression Total Score: 7 04/18/20 23 10:20 AM EDT documented as of this encounter Care Teams Soaking Pits Supervisor Relationship Specialty Start Date End Date Name, MD Nolan [address] [place] [address] PCP - General Family Medicine 06/13/18 documented as of this encounter
--- OUTSIDE RECORDS SUMMARY | 2024-11-12 17:07 | XMS_ITS | Encounter Summary ---
Author Organization [employer] Address [address] [facility] [address] [place] [address] Care Team Providers Care Certified Industrial Hygienist Name Role Phone Name, Nolan PADILLA Primary Care Provider [phone] Reason for Visit * Reason Comments Med Refill Encounter Details Date Type Department Care Team ([facility] st Contact Info) Description 08/23/2024 Refill [facility] MED & PEDS [address] [place], [place] [phone] Justyna Manuel MD [address] [place], [place] [phone] Depression, unspecified depression type; Diabetes mellitus type 2 in nonobese (CMS/HCC) Social History Tobacco Use Types Packs/Day [...] Description 12/11/2024 3:30 PM EDT Medication Management [facility] MEDICINE [address] [place] [address] Elizabeth Perez, AlyssaD [address] [place] [address] documented as of this encounter Visit Diagnoses Diagnosis Depression, unspecified depression type Diabetes mellitus type 2 in nonobese (CMS/[facility]) Type II or unspecified type diabetes mellitus without mention of complication, not stated as uncontrolled documented in this encounter Additional Health Concerns Assessment Noted Time PHQ-9 Depression Total Score: 7 04/18/20 23 10:20 AM EDT documented as of this encounter Care Teams Certified Industrial Hygienist Relationship Specialty Start Date End Date Name, MD Nolan [address] [place] [address] PCP - General Family Medicine 06/13/18 documented as of this encounter
--- OUTSIDE RECORDS SUMMARY | 2024-11-12 17:07 | XMS_ITS | Encounter Summary ---
Author Organization [employer] Address [address] [facility] [address] [place] [address] Care Team Providers Care Catering Server Name Role Phone Name, Nolan PADILLA Primary Care Provider [phone] Encounter Details Date Type Department Care Team ([facility] st Contact Info) Description 11/12/2024 Telephone [facility] MEDICINE [address] [place], [place] [phone] Name, MD Nolan [address] [place], [place] [phone] Social History Tobacco Use Types Packs/Day Years [...] AM EDT documented as of this encounter Miscellaneous Notes * Telephone Encounter - Estee Vizcaino RN - 11/12/2024 4:13 PM EST Call placed to pt's daughter via BLS [employer] #[id number] to advise of PCP recommendation for pt to go to ED for IV fluids and insulin d/t critical glucose. No answer, v/m left to return callto Blue team nurses. * Telephone Encounter - Estee Vizcaino RN - 11/12/2024 3:08 PM EST MD [facility] Team Nurses Is this patient in the hospital? If she is not I would recommend she goes. She will need IV fluids and insulin No recent notes for pt in [facility] system. T/C to pt via BLS [employer]it #[id number]. Advised of PCP recommendation. Pt agrees to go to [facility] EDnow. Pt agrees to call to schedule f/u upon discharge. T/C to pt's daughter via BLS Mix[employer] [place]. No answer x 2 attempts, v/m left to return call to Blue team nurses. documented in this encounter Plan of Treatment Upcoming Encounters Date Type Department Care Team (Late st Contact Info) Description 12/11/2024 3:30 PM EDT Medication Management [facility] MEDICINE [address] [place] [address] Elizabeth Perez, PharmD [address] [place] [address] documented as of this encounter Visit Diagnoses Not on filedocumented in this encounter Additional Health Concerns Assessment Noted Time PHQ-9 Depression Total Score: 7 04/18/20 23 10:20 AM EDT documented as of this encounter Care Teams Catering Server Relationship Specialty Start Date End Date Name, MD Nolan [address] [place] [address] PCP - General Family Medicine 06/13/18 documented as of this encounter
--- OUTSIDE RECORDS SUMMARY | 2024-11-12 17:07 | XMS_ITS | Encounter Summary ---
Author Organization [employer] Address [address] [facility] [address] [place] [address] Care Team Providers Care Rug Designer Name Role Phone Name, Nolan PADILLA Primary Care Provider [phone] Reason for Visit * Reason Onset Date Comments Reschedule 10/04/2023 Encounter Details Date Type Department Care Team (Late st Contact Info) Description 10/04/2023 Telephone [facility] MED[facility] [address] [place], [place] [phone] Name, MD Nolan [address] [place] [address] Reschedule Social History Tobacco Use Types Packs/Day Years [...] encounter Miscellaneous Notes * Telephone Encounter - Naty Hernandez - 10/04/2023 8:30 AM EST Tc from pt daughter requesting r/s f/u appt from 10/06/23, filing writer 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 documented in this encounter Plan of Treatment Upcoming Encounters Date Type Department Care Team (Late st Contact Info) Description 12/11/2024 3:30 PM EDT Medication Management [facility] MED[facility] [address] [place] [address] Elizabeth Perez, PharmD [address] [place] [address] documented as of this encounter Visit Diagnoses Not on filedocumented in this encounter Additional Health Concerns Assessment Noted Time PHQ-9 Depression Total Score: 7 04/18/20 23 10:20 AM EDT documented as of this encounter Care Teams Rug Designer Relationship Specialty Start Date End Date Name, MD Nolan [address] [place] [address] PCP - General Family Medicine 06/13/18 documented as of this encounter
--- OUTSIDE RECORDS SUMMARY | 2024-11-12 17:07 | XMS_ITS | Encounter Summary ---
Author Organization [employer] Address [address] [facility] [address] [place] [address] Care Team Providers Care Architectural Job Captain Name Role Phone Name, Nolan PADILLA Primary Care Provider [phone] Reason for Visit * Reason Comments Med Refill Encounter Details Date Type Department Care Team (Late st Contact Info) Description 09/21/2023 Refill [facility] & PEDS [address] [place], [place] [phone] Name, MD Nolan [address] [facility] [place] [address] Hypertension, unspecified type Social History Tobacco Use Types Packs/Day Years [...] Description 12/11/2024 3:30 PM EDT Medication Management [facility] MEDICINE [address] [place] [address] Elizabeth Perez, AlyssaD [address] [place] [address] documented as of this encounter Visit Diagnoses Diagnosis Hypertension, unspecified type documented in this encounter Additional Health Concerns Assessment Noted Time PHQ-9 Depression Total Score: 7 04/18/20 23 10:20 AM EDT documented as of this encounter Care Teams Architectural Job Captain Relationship Specialty Start Date End Date Name, MD Nolan [address] [place] [address] PCP - General Family Medicine 06/13/18 documented as of this encounter
--- OUTSIDE RECORDS SUMMARY | 2024-11-12 17:07 | XMS_ITS | Encounter Summary ---
Author Organization [employer] [facility] Address [address] [facility] 7t [place] [address] Care Team Providers Care Logistician Name Role Phone Name, Nolan PADILLA Primary Care Provider [phone] Encounter Details Date Type Department Care Team (Latest Contact Info) Description 09/07/2020 Abstract [facility] CONVERSIONS Dental, Provider, DDS Social History Tobacco Use Types Packs/Day Years Used Date Smoking Tobacco: Never Assessed Comments Unknown Sex and Gender Information Value [...] Description 12/11/2024 3:30 PM EDT Medication Management [facility] MEDICINE [address] [place] [address] Elizabeth Perez, PharmD [address] [place] [address] documented as of this encounter Visit Diagnoses Not on filedocumented in this encounter Care Teams Logistician Relationship Specialty Start Date End Date Name, MD Nolan [address] [place] [address] PCP - General Family Medicine 06/13/18 documented as of this encounter
--- OUTSIDE RECORDS SUMMARY | 2024-11-12 17:07 | XMS_ITS | Encounter Summary ---
Author Organization [employer] Address [address] [facility] 7t [place] [address] Care Team Providers Care Logistics Planner Name Role Phone Name, Nolan PADILLA Primary Care Provider [phone] Reason for Visit * Reason Comments Med Refill Encounter Details Date Type Department Care Team ([facility] st Contact Info) Description 11/08/2024 Refill [facility] MEDICINE [address] [place], [place] [phone] Name, MD Nolan [address] [place], [place] [phone] Social History Tobacco Use Types Packs/Day Years [...] t he electric, gas, oil or water [employer] threatened to shut off services in your [...] Description 12/11/2024 3:30 PM EDT Medication Management [facility] MEDICINE [address] [place] [address] Elizabeth Perez, AlyssaD [address] [place] [address] documented as of this encounter Visit Diagnoses Not on filedocumented in this encounter Additional Health Concerns Assessment Noted Time PHQ-9 Depression Total Score: 7 04/18/20 23 10:20 AM EDT documented as of this encounter Care Teams Logistics Planner Relationship Specialty Start Date End Date Name, MD Nolan [address] [place] [address] PCP - General Family Medicine 06/13/18 documented as of this encounter
--- OUTSIDE RECORDS SUMMARY | 2024-11-12 17:07 | XMS_ITS | Encounter Summary ---
Author Organization [employer] Address [address] [place] [address] 7t [place] [address] Care Team Providers Care Radio Commentator Name Role Phone Name, Nolan PADILLA Primary Care Provider [phone] Reason for Visit * Reason Comments Med Refill Encounter Details Date Type Department Care Team (Late st Contact Info) Description 04/25/2023 Refill [facility] MED & PEDS [address] [place], [place] [phone] Marlys Romero FNP [address] [place] [address] [place] [address] Type 2 diabetes mellitus without complication, unspecified whether assisted insulin use ([facility]) Social History Tobacco Use Types Packs/Day Years Used Date Smoking Tobacco: Some Days Cigarettes Smokeless Tobacco: Never Alcohol Use Standard Drinks/Week Comments Never 0 (1 standard drink = 0.6 oz pur e alcohol) Depression Answer Date Recorded Patient Health Questionnaire-9 Score 7 04/18/2023 Depression Answer Date Recorded Patient Health Questionnaire-2 [...] Description 12/11/2024 3:30 PM EDT Medication Management [facility] MEDICINE [address] [place], [place] [phone] Elizabeth Perez, PharmD [address] [place], [place] [phone] documented as of this encounter Visit Diagnoses Diagnosis Type 2 diabetes mellitus without complication, unspecified whether superintendent container terminal insulin use ([facility]) documented in this encounter Additional Health Concerns Assessment Noted Time PHQ-9 Depression Total Score: 7 04/18/20 23 10:20 AM EDT documented as of this encounter Care Teams Radio Commentator Relationship Specialty Start Date End Date Name, MD Nolan [address] [place] [address] PCP - General Family Medicine 06/13/18 documented as of this encounter
--- OUTSIDE RECORDS SUMMARY | 2024-11-12 17:07 | XMS_ITS | Encounter Summary ---
Author Organization [facility] Address [address] [facility] 7t [place] [address] Care Team Providers Care English Adjunct Faculty Name Role Phone Name, Nolan PADILLA Primary Care Provider [phone] Reason for Visit * Reason Comments Med Refill Encounter Details Date Type Department Care Team (Late st Contact Info) Description 08/23/2024 Refill [facility] MED & PEDS [address] [place], [place] [phone] Name, MD Nolan [address] [facility] [place] [address] Diabetic polyneuropathy associated with type 2 diabetes [...] Description 12/11/2024 3:30 PM EDT Medication Management [facility] MEDICINE [address] [place] [address] Elizabeht Perez, PharmD [address] [place] [address] documented as of this encounter Visit Diagnoses Diagnosis Diabetic polyneuropathy associated with type 2 diabetes mellitus (CMS/HCC) documented in this encounter Additional Health Concerns Assessment Noted Time PHQ-9 Depression Total Score: 7 04/18/20 23 10:20 AM EDT documented as of this encounter Care Teams English Adjunct Faculty Relationship Specialty Start Date End Date Name, MD Nolan [address] [place] [address] PCP - General Family Medicine 06/13/18 documented as of this encounter
--- OUTSIDE RECORDS SUMMARY | 2024-11-12 17:07 | XMS_ITS | Encounter Summary ---
Author Organization [employer] Address [address] [facility] 7t [place] [address] Care Team Providers Care Clinical Pharmacy Specialist Name Role Phone Name, Nolan PADILLA Primary Care Provider Reason for Visit * Reason Onset Date Comments Nurse Triage 07/27/2023 Encounter Details Date Type Department Care Team (Late st Contact Info) Description 07/27/2023 Telephone [facility] MEDICINE [address] [place], [place] [phone] Name, MD Nolan [address] [place] [address] Nurse Triage Social History Tobacco Use Types Packs/Day Years [...] t he electric, gas, oil or water [employer] threatened to shut off services in your [...] encounter Miscellaneous Notes * Telephone Encounter - Jony Weber RN - 07/27/2023 4:38 PM EST T/C to [phone] to daughter for below message, daughter verbally agreed and understood. * Telephone Encounter - Wendie Pham RN - 07/27/2023 12:11 PM EST Call to Rita Raza, reports having bilateral itching of bottom of feet. No redness or rash in between toes. No fever or signs of infection. Daughter states at last visit with PCP an ointment was going to be prescribed for this. Do not see mention of it in notes. Daughter has not tried OTC hydrocortisone as does not like to use anything not prescribed by provider. Advised of disposition, agrees to have PCP review note and see if rx can be sent. Reviewed below home care advise and reasons to return call. Protocol Used: Itching - Localized (Adult) Protocol-Based Disposition: Home Care Override (Final) Disposition: Discuss with PCP and Callback by Nurse Today Override Reason: Prescription Request Positive Triage Question: * Mild localized itching * All higher-acuity triage questions were negative Care Advice Discussed: * Reassurance and Education - Itching * Wash off Irritants * Ice for Itching That Gets Worse * Hydrocortisone Cream for Itching * Reasons To Call Back - Looks infected (e.g., spreading redness, red streak, pus) - You become worse * Telephone Encounter - Alissa Ruth - 07/27/2023 11:59 AM EST Symptom: Itching - No Rash ( Bottom of feet) Outcome: Schedule an appointment to be seen within 24 hours Reason: Caller denied all higher acuity questions The caller accepted this outcome [employer] Speaker documented in this encounter Plan of Treatment Upcoming Encounters Date Type Department Care Team (Late st Contact Info) Description 12/11/2024 3:30 PM EDT Medication Management [facility] MEDICINE [address] [place] [address] Elizabeth Perez, AlyssaD [address] [place] [address] documented as of this encounter Visit Diagnoses Not on filedocumented in this encounter Additional Health Concerns Assessment Noted Time PHQ-9 Depression Total Score: 7 04/18/20 23 10:20 AM EDT documented as of this encounter Care Teams Clinical Pharmacy Specialist Relationship Specialty Start Date End Date Name, MD Nolan [address] [place] [address] PCP - General Family Medicine 06/13/18 documented as of this encounter
--- OUTSIDE RECORDS SUMMARY | 2024-11-12 17:07 | XMS_ITS | Encounter Summary ---
Author Organization [employer] Address [address] [facility] 7t [place] [address] Care Team Providers Care Leadership Coach Name Role Phone Name, Nolan PADILLA Primary Care Provider [phone] Reason for Visit * Reason Onset Date Comments Med Refill 07/03/2024 Encounter Details Date Type Department Care Team (Late st Contact Info) Description 07/03/2024 Telephone [facility] MEDICINE [address] [place], [place] [phone] Name, MD Nolan [address] [place] [address] Med Refill Social History Tobacco Use Types Packs/Day Years [...] encounter Miscellaneous Notes * Telephone Encounter - Cindy Adame LPN - 07/03/2024 9:48 AM EDT Medication to soon for refill sent on 02/01/24 #90 with 1 refill. * Telephone Encounter - Johnny Mccarty - 07/03/2024 9:34 AM EDT TC from pt requesting medication refill. Medications needing refill: atorvastatin (Lipitor) 20 MG tablet To be sent to: [facility] - [place], [place] - [address] [place] [address] documented in this encounter Plan of Treatment Upcoming Encounters Date Type Department Care Team (Late st Contact Info) Description 12/11/2024 3:30 PM EDT Medication Management [facility] MEDICINE [address] [place] [address] Elizabeth Perez, PharmD [address] [place] [address] documented as of this encounter Visit Diagnoses Not on filedocumented in this encounter Additional Health Concerns Assessment Noted Time PHQ-9 Depression Total Score: 7 04/18/20 10:20 AM EDT documented as of this encounter Care Teams Leadership Coach Relationship Specialty Start Date End Date Name, MD Nolan [address] [place] [address] PCP - General Family Medicine 06/13/18 documented as of this encounter
--- OUTSIDE RECORDS SUMMARY | 2024-11-12 17:07 | XMS_ITS | Encounter Summary ---
Author Organization [employer] Address [address] [facility] 7t [place] [address] Care Team Providers Care Book Repairer Name Role Phone Name, Nolan PADILLA Primary Care Provider [phone] Reason for Visit * Reason Comments Med Refill Encounter Details Date Type Department Care Team ([facility] st Contact Info) Description 10/12/2024 Refill [facility] MED & PEDS [address] [place], [place] [phone] Name, MD Nolna [address] [facility] [place], [place] [phone] Proteinuria due to type 2 diabetes mellitus (CMS/HCC) ([facility]) Social History Tobacco Use Types Packs/Day [...] 12/11/2024 3:30 PM EDT Medication Management [facility] MEDICINE [address] [place] [address] Elizabeth Perez, PharmD [address] [place] [address] documented as of this encounter Visit Diagnoses Diagnosis Proteinuria due to type 2 diabetes mellitus (CMS/HCC) (CMS/HCC) documented in this encounter Additional Health Concerns Assessment Noted Time PHQ-9 Depression Total Score: 7 04/18/20 23 10:20 AM EDT documented as of this encounter Care Teams Book Repairer Relationship Specialty Start Date End Date Name, MD Nolan [address] [place] [address] PCP - General Family Medicine 06/13/18 documented as of this encounter
--- OUTSIDE RECORDS SUMMARY | 2024-11-12 17:07 | XMS_ITS | Clinical Summary ---
Author Organization [employer] Address [address] [place] [address] Care Team Providers Care Car Repairer Pullman Name Role Phone Name, Nolan PADILLA Primary Care Provider [phone] Allergies Active Allergy Reactions Criticality Noted Date Comments Iodine 12/17/2013 Shellfish Allergy Unknown 08/26/2022 Medications * This document contains information received from the source organization and may not represent a complete record from that organization. butalbital-acetam inophen-caffeine 50-325-40 MG tablet TAKE 1 TABLET BY MOUTH EVERY 8 HOURS NEEDED. DO NOT EXCEED 3 TABLETS IN 24 HOURS. DO NOT USE MORE THAN 2-3 TIMES PER WEEK 022 Active HM Nicotine 14 MG/24HR patch APPLY 1 PATCH TOPICALLY TO THE SKIN DAILY IN THE MORNING THEN REMOVE AT BEDTIME DIRECTED. DO NOT SMOKE WHILE USING PATCH Active SUMAtriptan (Imitrex) 50 MG tablet TAKE 1 TABLET BY MOUTH AT ONSET OF MIGRAINE. MAY REPEAT ONCE AFTER 2 HOURS IF NEEDED 022 Active fluticasone (Flonase) 50 MCG/ACT nasal sprayIndications: Diabetes mellitus type 2 in nonobese (CMS/HCC) INHALE 2 SPRAYS IN EACH NOSTRIL ONCE DAILY 48 g 1 023 Active ergocalciferol (Vitamin D2) 1.25 MG (42481 UT) capsule TAKE 1 CAPSULE BY MOUTH ONCE WEEKLY ON MONDAY MORNING 4 capsule 11 023 Active pantoprazole (ProtoNix) 40 MG EC tablet TAKE 1 TABLET BY MOUTH EVERY MORNING (40 MINUTES BEFORE MEALS) 023 Active Blood Pressure kit Use once a day 1 kit 023 Active Alcohol Swabs (Alcohol Prep) 70 % padsIndications:C ontrolled diabetes mellitus type 2 with complications, unspecified whether roasterman insulin use ([facility]) USE DIRECTED THREE TIMES DAILY 100 each 11 024 Active triamcinolone (Kenalog) 0.1 % oral paste Use in the mouth or throat 2 times daily. Apply to mouth ulcer. 5 g 024 2024 Active hydrOXYzine HCl (Atarax) 25 MG tablet Take 1 tablet (25 mg) by mouth every 8 (eight) hours if needed for itching or anxiety. 90 tablet 024 Active FREESTYLE LITE test stripIndications: Type 2 diabetes mellitus with other specified complication, with long-term current use of insulin ([facility]) TEST BLOOD SUGAR ONCE DAILY 50 strip 11 024 Active aspirin (Aspirin Adult Low Strength) 81 MG EC tabletIndications :Hypertension, unspecified type Take 1 tablet (81 mg) by mouth in the morning. 90 tablet 3 024 Active TRUEplus Lancets 33G miscIndications:T ype 2 diabetes mellitus with other specified complication, with long-term current use of insulin ([facility]) TEST BLOOD SUGAR EVERY DAY DIRECTED 100 each 1 024 Active Lantus SoloStar 100 UNIT/ML penIndications:Ty pe 2 diabetes mellitus with other specified complication, with long-term current use of insulin ([facility]) Inject 30 Units under the skin at bedtime. Decrease to 20 units once she starts on Trulicity 3 mL 11 024 Active docusate sodium (Colace) 100 MG capsule TAKE 2 TABLETS BY MOUTH EVERY DAY AT BEDTIME 024 Active benztropine (Cogentin) 0.5 MG tabletIndications :Mood disorder (CMS/[facility]) TAKE 1 TABLET BY MOUTH TWICE DAILY IN THE MORNING AND IN THE EVENING 60 tablet 1 025 Active metoprolol succinate XL (Toprol-XL) 50 MG 24 hr tabletIndications :Depression, unspecified depression type TAKE 1 TABLET BY MOUTH EVERY MORNING 90 tablet 025 Active pen needle 31G x 6 mm miscIndications:T ype 2 diabetes mellitus with hyperglycemia, without long-term current use of insulin ([facility]) USE DIRECTED TO INJECT INSULIN 100 each 025 Active Jardiance 10 MGIndications:Pro teinuria due to type 2 diabetes mellitus (CMS/HCC) (CMS/HCC) TAKE 1 TABLET BY MOUTH EVERY MORNING 30 tablet 025 Active Lokelma 5 g packet Dissolve 1 packet (5 g) in 3 tablespoonfuls or more of water & drink immediately. If residual powder remains in glass add additional water; mix & drink until gone. Use twice weekly 024 Active atorvastatin (Lipitor) 20 MG tabletIndications :Diabetes mellitus type 2 in nonobese (CMS/HCC) TAKE 1 TABLET BY MOUTH AT BEDTIME 90 tablet 025 Active prazosin (Minipress) 2 MG capsuleIndication s:Depression, unspecified depression type TAKE 1 CAPSULE BY MOUTH EVERY MORNING and TAKE 2 CAPSULES BY MOUTH EVERY DAY AT BEDTIME 90 capsule 025 Active FLUoxetine (PROzac) 10 MG capsuleIndication s:Depression, unspecified depression type TAKE 1 CAPSULE BY MOUTH EVERY MORNING 30 capsule 025 Active haloperidol (Haldol) 5 MG tabletIndications :Depression, unspecified depression type TAKE 1 TABLET BY MOUTH TWICE DAILY IN THE MORNING AND AT BEDTIME 60 tablet 025 Active mirtazapine (Remeron) 7.5 MG tabletIndications :Depression, unspecified depression type TAKE 1 TABLET BY MOUTH AT BEDTIME 30 tablet 025 Active gabapentin (Neurontin) 100 MG capsuleIndication s:Diabetic polyneuropathy associated with type 2 diabetes mellitus (CMS/HCC) TAKE 1 CAPSULE BY MOUTH AT BEDTIME 30 capsule 025 Active Trulicity 0.75 MG/0.5ML solution auto-injector INJECT ONE PEN (=0.75MG) SUBCUTANEOUSLY ONCE A WEEK DIRECTED 2 mL 025 Active empagliflozin (Jardiance) 10 MGIndications:Pro teinuria due to type 2 diabetes mellitus (CMS/HCC) (CMS/HCC) Take 1 tablet (10 mg) by mouth in the morning. 30 tablet 024 2024 Discontinued atorvastatin (Lipitor) 20 MG tabletIndications :Diabetes mellitus type 2 in nonobese (CMS/HCC) TAKE 1 TABLET BY MOUTH AT BEDTIME 90 tablet 024 2024 Discontinued Dulaglutide (Trulicity) 0.75 MG/0.5ML solution auto-injector Inject 0.5 mL (0.75 mg) under the skin 1 (one) time per week. 2 mL 2 024 2024 Discontinued prazosin (Minipress) 2 MG capsuleIndication s:Depression, unspecified depression type TAKE 1 CAPSULE BY MOUTH EVERY MORNING and TAKE 2 CAPSULES BY MOUTH EVERY DAY AT BEDTIME 90 capsule 025 2024 Discontinued mirtazapine (Remeron) 7.5 MG tabletIndications :Depression, unspecified depression type TAKE 1 TABLET BY MOUTH AT BEDTIME 30 tablet 025 2024 Discontinued haloperidol (Haldol) 5 MG tabletIndications :Depression, unspecified depression type TAKE 1 TABLET BY MOUTH TWICE DAILY IN THE MORNING AND AT BEDTIME 60 tablet 025 2024 Discontinued gabapentin (Neurontin) 100 MG capsuleIndication s:Diabetic polyneuropathy associated with type 2 diabetes mellitus (CMS/HCC) TAKE 1 CAPSULE BY MOUTH AT BEDTIME 30 capsule 025 2024 Discontinued FLUoxetine (PROzac) 10 MG capsuleIndication s:Depression, unspecified depression type TAKE 1 CAPSULE BY MOUTH EVERY MORNING 30 capsule 025 2024 Discontinued Active Problems Problem Noted Date Diagnosed Date Proteinuria due to type 2 diabetes mellitus (CMS /HCC) 11/17/2023 Auditory hallucination 11/14/2023 Diabetic polyneuropathy asso ciated with type 2 diabetes mellitus 07/10/2023 Overview (07/10/2023): She has mild decreased sendation UMANG (generalized anxiety disorder) 04/18/2023 Assessment & Plan (04/18/2023 11:05 AM EDT): Assessment: Rita was engaged with active reflective listening and open-ended questions. Assessed symptoms, risks, and social supports with direct questions. Discussed current symptoms intensity and frequency. Emotions were normalized and validated. She was not able to identified any coping mechanisms but was able to identify her daughter as protective factors. Provided psychoeducation around relaxation techniques and anxiety coping mechanisms. Discussed OP therapy and Medication Management, she agreed to both referrals. Provided education around integrated medicine and the options of follow up BE's as needed. Provided contact information should questions or concerns arise. Plan: Rita will engage in effective coping mechanisms discussed. She will try to practice one of the skills for 2 x/day for 3-6 months to develop the skills. She will also be referred to OP services. At this time Rita Raza meets criteria for Visit Diagnoses: Problem List Items Addressed This Visit Other Major depressive disorder, recurrent episode, mild (CMS/HCC) UMANG (generalized anxiety disorder) Patient ready to address current needs Yes Strengths include support from daughter, willing to seek services. PLAN: 1. Follow up with [facility]: Not recommended for follow-up 2. Patient goal is to engage in MH services 3. Behavioral Recommendations a. Ind. Therpay b. MEd. Management c. Use of coping skills provided. Dysphagia 04/17/2023 Migraine 04/17/2023 Swallowing painful 04/17/2023 Suspected COVID-19 virus infection 04/17/2023 Recurrent falls 09/18/2018 Major depressive disorder, recurrent episode, mi ld 09/07/2018 Assessment & Plan (04/18/2023 11:04 AM EDT): Assessment: Rita was engaged with active reflective listening and open-ended questions. Assessed symptoms, risks, and social supports with direct questions. Discussed current symptoms intensity and frequency. Emotions were normalized and validated. She was not able to identified any coping mechanisms but was able to identify her daughter as protective factors. Provided psychoeducation around relaxation techniques and anxiety coping mechanisms. Discussed OP therapy and Medication Management, she agreed to both referrals. Provided education around integrated medicine and the options of follow up BE's as needed. Provided contact information should questions or concerns arise. Plan: Rita will engage in effective coping mechanisms discussed. She will try to practice one of the skills for 2 x/day for 3-6 months to develop the skills. She will also be referred to OP services. At this time Rita Raza meets criteria for Visit Diagnoses: Problem List Items Addressed This Visit Other Major depressive disorder, recurrent episode, mild (CMS/HCC) UMANG (generalized anxiety disorder) Patient ready to address current needs Yes Strengths include support from daughter, willing to seek services. PLAN: 1. Follow up with [facility]: Not recommended for follow-up 2. Patient goal is to engage in MH services 3. Behavioral Recommendations a. Ind. Therpay b. MEd. Management c. Use of coping skills provided. Cobalamin deficiency 06/21/2018 Type 2 diabetes mellitus 06/21/2018 Vitamin D deficiency 06/21/2018 Mood disorder 01/10/2018 Noncompliance with treatment 07/05/2017 Hypertension 10/31/2013 Encounters Date Type Department Care Team Description 11/12/2024 Telephone [facility] [address] [place] [phone] Nolan Blevins MD 11/12/2024 Orders Only GENERIC EXTERNAL DATA DEPARTMENT Provider, Generic External Data 11/08/2024 Refill [facility] [address] [place] [address] Nolan Blevins MD 10/22/2024 Refill [facility] [address] [place], [place] [phone] Justyna Manuel MD Diabetes mellitus type 2 in nonobese ([facility]); Depression, unspecified depression type; Diabetic polyneuropathy associated with type 2 diabetes mellitus ([facility]) 10/12/2024 Refill [facility] [address] [place] [address] Nolan Blevins MD Proteinuria due to type 2 diabetes mellitus ([facility]/HCC) ([facility]) 09/19/2024 Refill [facility] [address] [place] [address] Nolan Blevins MD Depression, unspecified depression type; Diabetic polyneuropathy associated with type 2 diabetes mellitus ([facility]) 09/19/2024 Refill [facility] [address] [place], [place] [phone] Nolan Blevins MD Depression, unspecified depression type; Type 2 diabetes mellitus with hyperglycemia, without long-term current use of insulin ([facility]) 09/19/2024 Refill [facility] [address] [place] [address] Latesha Velasquez FNP Type 2 diabetes mellitus with hyperglycemia, without long-term current use of insulin ([facility]/HCC) 09/15/2024 Refill [facility] [address] [place] [address] Monik Deshpande NP Mood disorder ([facility]/HCC) 08/28/2024 Telephone [facility] [address] [place] [phone] Elizabeth Perez PharmD Medication Question (Jardiance ) 08/26/2024 Refill [facility] [address] [place] [address] Nolan Blevins MD Diabetic polyneuropathy associated with type 2 diabetes mellitus ([facility]/HCC) 08/26/2024 Refill [facility] [address] [place] [address] Justyna Manuel MD Depression, unspecified depression type; Diabetic polyneuropathy associated with type 2 diabetes mellitus ([facility]/HCC) 08/23/2024 Refill [facility] [address] [place] [address] Nolan Blevins MD Diabetic polyneuropathy associated with type 2 diabetes mellitus ([facility]/HCC) 08/23/2024 Refill [facility] [address] [place] [address] Justyna Manuel MD Depression, unspecified depression type; Diabetes mellitus type 2 in nonobese ([facility]) 08/22/2024 9:45 AM EST Office Visit [facility] [address] [place] [phone] Nolan Blevins MD Type 2 diabetes mellitus with other specified complication, with long-term current use of insulin ([facility]) (Primary Dx); Stage 3 chronic kidney disease, unspecified whether stage 3a or 3b CKD ([facility]/HCC); Vaccine refused by patient 08/22/2024 Orders Only GENERIC EXTERNAL DATA DEPARTMENT Provider, Generic External Data 08/21/2024 Refill [facility] [address] [place] [address] Nolan Blevins MD Proteinuria due to type 2 diabetes mellitus ([facility]/HCC) ([facility]/HCC) 08/20/2024 Telephone [facility] [address] [place] [phone] Florence Aguiar MA Chart Prep from Last 3 Months Immunizations Name Administration Dates Next Due Influenza injectable quadriv alent IIV4 with preservative 06/21/2018,05/29/2017,12/02/2015 Influenza injectable quadriv alent preservative free 07/25/2022,07/13/2021,09/02/2016,12/01 Influenza, IIV3, injectable 07/29/2011 Influenza, Split (incl. nargis fied surface antigen) 05/30/2013 Pfizer Covid-19 Vaccine 12+ 06/11/2021, 1 Pneumococcal Polysaccharide PPSV23 12/02/2015, TD (adult), 2 Lf tetanus tox oid, preservative free, adsorbed 07/25/2022,12/29/2017 Tdap 03/22/2011 Social History Tobacco Use Types Packs/Day Years Used Date Smoking Tobacco: Some Days Cigarettes Smokeless Tobacco: Never Tobacco Cessation:Ready to Q uit: Not Asked; Counseling Given: Not Answered Alcohol Use Standard Drinks/Week Comments Never 0 [...] Orientation Straight 07/11/2022 10 :18 AM EDT Last Filed Vital Signs Vital Sign Reading Time Taken Comments Blood Pressure 132/78 08/22/2024 9:47 AM EST Pulse 74 08/22/2024 9:47 AM EST Temperature 36.2 ??C (97.1 ??F) 08/22/2024 9:47 AM ES T Respiratory Rate 22 08/22/2024 9:47 AM EST Oxygen Saturation 95% 08/22/2024 9:47 AM EST Inhaled Oxygen Concentration - - Weight 67.9 kg (149 lb 9.6 oz) 08/22/2024 9:47 A M EST Height 157.5 cm (5' 2 ) 05/20/2024 9:55 AM EDT Body Mass Index 27.36 05/20/2024 9:55 AM EDT Plan of Treatment Upcoming Encounters Date Type Department Care Team (Late st Contact Info) Description 12/11/2024 3:30 PM EDT Medication Management [facility] [address] [place] [address] Elizabeth Perez, PharmD [address] [place] [address] Health Maintenance Due Date Last Done Comments CT Colonography 1963 FIT DNA/Cologuard 1963 FIT 1963 FOBT 1963 HIV Screening 1963 Sigmoidoscopy 1963 Alcohol/Substance Use Screening 1975 Pap Smear 1984 Cervical Cancer Screening 1993 HPV/Cotest 1993 Zoster Vaccines (1 of 2) 2013 Pneumococcal Vaccine: 50+ Years (2 of 2 - PCV) 12/01/2016 12/02/2015, 07/20/2010 Mammogram 06/22/2020 06/22/2018 RSV Patients and Patients Aged 60 years or older (1 - Risk 60-74 years 1-dose series) 2023 Depression Screening 04/18/2024 04/18/2023, 04/18/20 SDOH Screening 04/18/2024 04/18/2023 COVID-19 Vaccine ( season) 2024 06/11/2021, 05/21/2021 Influenza Vaccine (#1) 2024 , 07/13/2021, 06/21/2018, Additional history exists Lipid Panel 11/13/2024 11/14/2023, 08/0 04/2023, 11/13/2020 Diabetes: Hemoglobin A1C 11/20/2024 024, 07/15/2024, 05/20/2024, Additional history exists Diabetes: Foot Exam 05/20/2025 05/20/2024, 05/20/2024, 05/20/2024, Additional history exists Eye Exam 07/03/2025 07/03/2024, 06/12, 07/03/2024, Additional history exists Tobacco Screening 07/08/2025 07/08/2024 Colonoscopy 03/13/2028 03/13/2018 Colorectal Cancer Screening 03/13/2028 DTaP/Tdap/Td Vaccines (4 - Td or Tdap) 07/25/2032 07/25/2022, 12/29/2017, 03/22/2011 Hepatitis C Screening Completed 11/13/2020 HIB Vaccines Aged Out No longer eligi ble based on patient's age to complete this topic HPV Vaccines Aged Out No longer eligi ble based on patient's age to complete this topic Hepatitis A Vaccines Aged Out No long er eligible based on patient's age to complete this topic Hepatitis B Vaccines Aged Out No long er eligible based on patient's age to complete this topic IPV Vaccines Aged Out No longer eligi ble based on patient's age to complete this topic Meningococcal Vaccine Aged Out No mallory angel eligible based on patient's age to complete this topic RSV under 20 months Aged Out No longe r eligible based on patient's age to complete this topic Rotavirus Vaccines Aged Out No longer eligible based on patient's age to complete this topic Procedures Procedure Name Priority Date/Time Associated Diagnosis Comments BASIC METABOLIC PANEL Routine 11/12/2024 1:51 PM EST BASIC METABOLIC PANEL Routine 08/22/2024 11:21 AM EST POCT GLYCATED HEMOGLOBIN, TOTAL Routine 08/22/2024 10:00 AM EST Type 2 diabetes mellitus with other specified complication, with long-term current use of insulin (CMS/HCC) POCT GLUCOSE Routine 08/22/2024 9:58 AM EST Type 2 diabetes mellitus with other specified complication, with long-term current use of insulin (CMS/HCC) LIPID PANEL, STANDARD Routine 11/14/2023 10:26 AM EST Type 2 diabetes mellitus with other specified complication, with long-term current use of insulin (CMS/HCC) Major depressive disorder, recurrent episode, mild (CMS/HCC) Encounter for screening mammogram for malignant neoplasm of breast History of anemia ZZZ HISTORICAL HEPATITIS C AB W/REFL TO HCV RNA, QN, PCR Routine 11/13/2020 2:31 PM EST BI MAMMOGRAM SCREENING BILATERAL Routine 06/22/2018 1:13 PM EDT HM COLONOSCOPY Routine 03/13/2018 DIABETES EYE EXAM Routine 04/20/2012 from Last 3 Months or Most Recently Relevant to Health Maintenance Results * (ABNORMAL) Basic Metabolic Panel (11/12/2024 1:51 PM EST) Only the most recent of2 resultswithin the time period is included. Sodium 123(L) 135 - 145 mmol/L [facility] Potassium 4.5 3.3 - 5.1 mmol/L [facility] Chloride 96 96 - 108 mmol/L [facility] Carbon Dioxide 18(L) 22 - 29 mmol/L [facility] Anion Gap 14 12 - 20 [facility] Urea Nitrogen (BUN) 24(H) 9 - 16 mg/dL [facility] Creatinine, Serum 2.03(H) 0.5 - 1.4 mg/dL [facility] Estimated Glomerular Filt Rate 25 [facility] Comment:Chronic Kidney Disea se: Estimated GFR < 60 mL/min/[id number] Kidney Disease: Estimated GFR < 15 mL/min/1.73m2 Glucose 666(HH) 60 - 115 mg/dL [facility] Comment:Critical value for t est(s):GLUR Results called to and readback by:JUNE Stone Person calling:WILLIAMRUSH Date: 11/12/24Time:1459 Calcium 9.0 8.4 - 10.2 mg/dL [facility] 11/12/2024 1:51 PM EST 11/12/2024 1:51 PM EST Generic External Data Provider LAB BLOOD ORDERAB LES Edited Result - Final [facility] [address] [place] [phone] * (ABNORMAL) POCT HGB A1C (08/22/2024 10:00 AM EST) Hemoglobin A1C 9.7(A) 4.0 - 6.0 % QC Media Lot # [id number] Lot# Expiration Date Blood 08/22/2024 10:0 0 AM EST Nolan Blevins MD POINT OF CARE TEST ENTER/EDIT OR DERABLES Final Result * (ABNORMAL) POCT Glucose (08/22/2024 9:58 AM EST) Glucose Blood, POC 234(A) 60 - 200 mg/dL QC Media Lot # [id number] Lot# Expiration Date , Blood Capillary blood specimen / Unknown 08/22/2024 9:58 AM EST us Nolan Blevins MD POINT OF CARE TEST ENTER/EDIT OR DERABLES Final Result * Lipid Panel, Standard (11/14/2023 10:26 AM EST) Triglycerides 126 <150 mg/dL [facility] Comment:Desirable Triglyceri de: less than 150 mg/dLBorderline High Triglyceride 150-199 mg/dLHigh Triglyceride: 200-499 mg/dLVery High Triglyceride: greater than or equal to 5OO mg/dL Cholesterol 149 <200 mg/dL [facility] Comment:Desirable Cholestero l: less than 200 mg/dLBorderline High Cholesterol: 200-239 mg/dLHigh Cholesterol: greater than 239 mg/dL LDL Cholesterol Calculated 76 <100 mg/dL [facility] Comment:Desirable LDL: less than 100 mg/dLNear Optimal/Above Optimal LDL: 110- 129 mg/dLBorderline High LDL: 130-159 mg/dLHigh LDL: 160-189 mg/dLVery High LDL: greater than or equal to 190 mg/dL HDL Cholesterol 48 >40 mg/dL [facility] Comment:Desirable HDL: great er than 40 mg/dL Note: This HDL assay may give artificially low results in patients with liver disease. Blood Venous blood specimen / Unknown 11/14/2023 10:26 AM EST 11/14/2023 2:10 PM EST us Nolan Blevins MD LAB BLOOD ORDERABLES Final Resul t [facility] [address] [place] [phone] * HEPATITIS C AB W/REFL TO HCV RNA, QN, PCR (11/13/2020 2:31 PM EST) HEPATITIS C ANTIBODY NON-REACT [place] NON-REACT [facility] INDEX 0.01 <1.00 [facility] Comment: ?? HCV antibody was non-reactive. There is no laboratory ?? evidence of HCV infection. ?? In most cases, no further action is required. However, if recent HCV exposure is suspected, a test for HCV RNA (test code 32797) is suggested. ?? For additional information please refer to http://education.Dailymotion/faq/QBI69a7 (This link is being provided for informational/ educational purposes only.) ?? 11/13/2020 2:31 PM EST Stefany rGiffiths MD HISTORICAL/NON ORDERABLE LABS Final Result [facility] [address] [place] [address], * DIGITAL BILATERAL SCREEN 1 (06/22/2018 1:13 PM EDT) Anatomical Region Laterality Modality Breast Bilateral Mammography 06/22/2018 1:13 PM EDT Narrative 06/22/2018 3:19 PM EDT Refer to the Notes tab for result details [facility] Procedure: DIGITAL BILATERAL SCREEN 1 Procedure Note Provider, MD Yesi - 12/03/2022 Refer to the Notes tab for result details [facility] Procedure: DIGITAL BILATERAL SCREEN 1 Salma Rider MD IMG BI PROCEDURES Final Result * Colonoscopy (03/13/2018) Colonoscopy Normal Normal Nolan Blevins MD HEALTH MAINTENANCE Final Result * Diabetes Eye Exam (04/20/2012) Eye Exam Normal Normal [facility] External Provider HEALTH MAINTENANCE Final Result from Last 3 Months or Most Recently Relevant to Health Maintenance Insurance [address] [place] [id number] [facility] C3 Care Teams Car Repairer Pullman Relationship Specialty Start Date End Date Name, MD Nolan [address] [place] [phone] PCP - General Family Medicine 06/13/18
--- OUTSIDE RECORDS SUMMARY | 2024-11-12 17:07 | XMS_ITS | Encounter Summary ---
Author Organization [employer] Address [address] [place] [address] Care Team Providers Care Telecommunicator Supervisor Name Role Phone Name, Nolan PADILLA Primary Care Provider [phone] Encounter Details Date Type Department Care Team (Late st Contact Info) Description 11/12/2024 Orders Only GENERIC EXTERNAL DATA DEPARTMENT Provider, Generic External Data Social History Tobacco Use Types Packs/Day Years [...] Description 12/11/2024 3:30 PM EDT Medication Management [facility] [address] [place], [place] [phone] Elizabeth Perez, PharmD [address] [place] [address] documented as of this encounter Procedures Procedure Name Priority Date/Time Associated Diagnosis Comments BASIC METABOLIC PANEL Routine 11/12/2024 1:51 PM EST documented in this encounter Results * (ABNORMAL) Basic Metabolic Panel (11/12/2024 1:51 PM EST) Sodium 123(L) 135 - 145 mmol/L [facility] Potassium 4.5 3.3 - 5.1 mmol/L [facility] Chloride 96 96 - 108 mmol/L [facility] Carbon Dioxide 18(L) 22 - 29 mmol/L [facility] Anion Gap 14 12 - 20 [facility] Urea Nitrogen (BUN) 24(H) 9 - 16 mg/dL [facility] Creatinine, Serum 2.03(H) 0.5 - 1.4 mg/dL [facility] Estimated Glomerular Filt Rate 25 [facility] Comment:Chronic Kidney Disea se: Estimated GFR < 60 mL/min/1.02h4Mlgecg Kidney Disease: Estimated GFR < 15 mL/min/1.73m2 Glucose 666(HH) 60 - 115 mg/dL [facility] Comment:Critical value for t est(s):GLUR Results called to and readback by:JUNE Stone Person calling:VERONIQUE Date: 11/12/24Time:1459 Calcium 9.0 8.4 - 10.2 mg/dL [facility] 11/12/2024 1:51 PM EST 11/12/2024 1:51 PM EST us Generic External Data Provider LAB BLOOD ORDERAB LES Edited Result - Final [facility] [address] [place] [address] [phone] documented in this encounter Visit Diagnoses Not on filedocumented in this encounter Additional Health Concerns Assessment Noted Time PHQ-9 Depression Total Score: 7 04/18/20 23 10:20 AM EDT documented as of this encounter Care Teams Telecommunicator Supervisor Relationship Specialty Start Date End Date Name, MD Nolan [address] [place] [address] PCP - General Family Medicine 06/13/18 documented as of this encounter
== END 2024-11-12 13:36 | disposition home or self-care (01) ==
LOC: HO.LAB 13:35
PROVIDERS: PCP Internal Medicine Geriatric Medicine; Visit Provider Internal Medicine Hypertension Specialist
DX: E87.5 Hyperkalemia (principal); N18.32 Chronic kidney disease, stage 3b
CPT/HCPCS: 36415; 80048

== ENCOUNTER 2024-11-14 09:52 | Outpatient (AMB) | payer MEDICAID, SELFPAY ==
[2024-11-14 09:55] VITALS: BP 60/48; PULSE 103; O2SAT 98; BMI 23.9
--- NOTE | 2024-11-14 09:55 | HO.NEPHOV_ITS ---
Vital Signs 11/14/24 09:55 Height 5 ft 3 in Weight 135 lb BMI 23.9 BP 60/48 L Blood Pressure Location Lt brachial Position Sitting Pulse 103 H Pulse Source Pulse Oximeter Pulse Oximetry (%) 98 Oxygen Delivery Method Room Air Intake Visit Reasons: CKD/ Conf Welder Boilermaker Required: Yes Welder Boilermaker Name: Randa [phone] Accompanied by: Daughter Allergies iron Allergy (Mild, Verified 11/14/24 09:57) UNKNOWN Iodinated Contrast Media [IV Dye, Iodine Containing] Allergy (Unknown, Verified 11/14/24 09:57) UNKNOWN iodine [IODINE] Allergy (Unknown, Verified 11/14/24 09:57) RASH SEAFOOD Allergy (Unknown, Uncoded 03/08/24 03:45) UNKNOWN Medication List - Last Reconciled 11/14/24 by Torrey Patel MD amlodipine 5 mg PO BEDTIME aspirin 81 mg PO DAILY atorvastatin 20 mg PO BEDTIME benztropine 0.5 mg PO BID bisacodyl (Dulcolax (bisacodyl)) 10 mg AR DAILY PRN cefuroxime axetil 250 mg PO BID 7 days docusate sodium (Stool Softener) 200 mg (2 x 100 mg) PO BEDTIME dulaglutide (Trulicity) mg subcut QWEEK empagliflozin (Jardiance) 10 mg PO QAM ergocalciferol (vitamin D2) 1 cap PO GUERRA@0900 fluoxetine 10 mg PO DAILY gabapentin 100 mg PO BEDTIME haloperidol 1 tab PO BID insulin glargine (Lantus Solostar U-100 Insulin) 20 units subcut QPM insulin syringe-needle U-100 (UltiCare) As directed metoprolol succinate ER 50 mg PO DAILY mirtazapine 7.5 mg PO BEDTIME fxjuwphs-opf-wmad-FA-vit K-lut 8 mg iron-400 mcg-50 mcg (Centrum Silver Women) 1 tab PO DAILY pantoprazole 40 mg PO QAM 30 days pen needle, diabetic As directed polyethylene glycol 3350 (Miralax) 17 grams PO DAILY 30 days prazosin 4 mg PO BEDTIME prazosin 2 mg PO DAILY sodium zirconium cyclosilicate (Lokelma) 5 grams PO .twice a week HPI Comments Details: 59-year-old woman with a history of diabetes mellitus referred for chronic kidney disease. Baseline creatinine is around 1.0 mg/dL. Recently creatinine bumped up to 1.5. Last year the serum creatinine had bumped to 1. 9 and she had CAMPOS due to hypoperfusion. CAMPOS subsequently resolved She has had mild chronic hyponatremia. Recently potassium bumped up to 5.5 by the specimen was slightly hemolyzed. She also has persistent mild metabolic acidosis. Ongoing medical problems include longstanding diabetes mellitus. Overall blood sugar has been better controlled recently. History of hypertension. Blood pressure has been well controlled. Today she was accompanied by her daughter. Welder Boilermaker service was used. She smokes less than 10 cigarettes a day. No history of any alcohol abuse 06/20/24: continues with chronic mild hyponatremia potassium repeat on 05/30 normalized (4.5) continues with metabolic acidosis; lactate level normal. (on metformin). renal US results from 06/18 pending Creatinine has bumped from to 1.58 from 1.41 with last blood work: 02/06/24 0.96 03/08/24 Cr 1.63 05/20/24 1.41 05/30/24 1.58 Urine 05/30 mild protein (25), +glucose, negative for blood, leukocyte esterace, casts, WBC currently taking amlodipine 5mg daily, losartan 25mg daily, and metoprolol ER 50mg daily for BP control pt eating low sodium diet has not been restricting her oral free water to 1.2L daily, she will start this sugars are doing well still smoking, not ready to cut down no NSAIDs denies changes to OTC/prescribed medications since last visit 07/23/24 ;Denies any compliants;Off Metformin 08/27/24 ;No new issues 11/14/24 Accompanied by family Welder Boilermaker was used Blood sugar was 666 ! Drinks 3 to 5 cans of coca cola Has difficulty swallowing PFSH Medical History Dysphagia Anxiety disorder GERD (gastroesophageal reflux disease) Migraines Asthma On beta jordyn at home Elevated cholesterol HTN (hypertension) Smoker Diabetes Depression Heartburn Surgical History Hx of left knee surgery History of tubal ligation History of esophagogastroduodenoscopy (EGD) H/O colonoscopy Hx of cholecystectomy Social History Household Members: Family Housing: Apartment Alcohol intake: former Patient Tobacco Use Status: Current everyday Tobacco user Tobacco use type: Cigarette Cigarettes Per Day: 6 Second Hand Smoke Exposure: Yes service: No Current occupational status: disabled Physical Exam Vital Signs: Last Vital Signs Pulse 103 H 11/14/24 09:55 BP 60/48 L 11/14/24 09:55 Pulse Ox 98 11/14/24 09:55 Oxygen Delivery Method Room Air 11/14/24 09:55 BMI result Body Mass Index 23.9 Const General: comfortable; No acute distress Orientation/consciousness: patient oriented x3 Eyes General: appearance normal, both eyes and all related structures Visual Bui: normal visual bui by confrontation Neck Neck: Yes supple and Yes no JVD Resp Effort & Inspection: normal respiratory effort and respiratory effort not decreased Auscultation: rhonchi Cardio Palpation: no palpable S3 and no palpable S4 Heart sounds: no rubs GI Inspection: Yes normal to inspection Palpation (GI): Soft to palpation Percussion: Yes normal to percussion Auscultation: normal bowel sounds General: Yes no CVA tenderness Back/Spine/Pelvis Back: no CVA tenderness Skin General skin exam: no petechiae and no purpura Neuro General: patient oriented x3 and no focal motor deficits Extrem General: No edema Results Reviewed Nephrology Results: Hgb 11.9 g/dl (12.0-16.0) L 07/15/24 WBC 7.1 X10*3/uL (4.8-10.8) 07/15/24 Plt Count 295 X10*3/uL (160-400) 07/15/24 Sodium 123 mmol/L (135-145) L 11/12/24 Potassium 4.5 mmol/L (3.3-5.1) 11/12/24 Chloride 96 mmol/L (96-108) 11/12/24 Carbon Dioxide 18 mmol/L (22-29) L 11/12/24 BUN 24 mg/dL (9-16) H 11/12/24 Creatinine 2.03 mg/dL (0.5-1.4) H 11/12/24 Calcium 9.0 mg/dL (8.4-10.2) 11/12/24 Urine Protein Negative mg/dL (Neg-Trace) 07/15/24 Urine Creatinine 16.49 mg/dL 07/15/24 Renal US 06/18/24 Assessment & Plan Assessment & Plan (1) CKD (chronic kidney disease): Comment: Most likely due to underlying diabetic kidney disease. Code(s): N18.9 - Chronic kidney disease, unspecified Category: Medical Qualifiers: Chronic kidney disease stage: stage 3 (moderate) Chronic kidney disease stage 3 subtype: stage 3b (GFR 30-44) Qualified Code(s): N18.32 - Chronic kidney disease, stage 3b Plan: Superimposed CAMPOS vs natural progression NO evidence of obstruction -Probably has hypoperfusion Will HOLD Losartan (2) Diabetes: Comment: Goal A1c less than 7% Code(s): E11.9 - Type 2 diabetes mellitus without complications Category: Medical Qualifiers: Diabetes mellitus complication detail: with nephropathy Diabetes mellitus complication status: with kidney complications Diabetes mellitus director long term care insulin use: with director long term care use Diabetes mellitus type: type 2 Qualified Code(s): E11.21 - Type 2 diabetes mellitus with diabetic nephropathy; Z79.4 - half-way (current) use of insulin (3) Hyponatremia: Comment: Chronic and asymptomatic. Probably has decreased free water clearance secondary to use of SSRI. Hyperglycemia could be a contributing factor ( BS 604) Corrected Na is 131 Code(s): E87.1 - Hypo-osmolality and hyponatremia Category: Medical Plan: Limit water intake- including cola (4) Metabolic acidosis: Code(s): E87.20 - Acidosis, unspecified Category: Medical (5) Hyperkalemia: Code(s): E87.5 - Hyperkalemia Category: Medical Plan: Stay on Low K diet Lokelde PRN (6) Hypotension: Code(s): I95.9 - Hypotension, unspecified Category: Medical Plan: DC Amlodipine 5 mg and watch BP Plan Optimize blood sugar and blood pressure. Restrict oral free water intake to less than 1.2 L and watch serum sodium. Orders: Orders Basic Metabolic Panel 6 Weeks N18.32 - Chronic kidney disease, stage 3b Basic Metabolic Panel 6 Months N18.32 - Chronic kidney disease, stage 3b Medications: Discontinued sodium zirconium cyclosilicate (Lokelma) Discontinued Reason: Doctor's Order 5 grams PO .twice a week 11 ea 1RF Coding Level of Care Code Est Pt Level 5 (22991) Diagnoses Stage 3b chronic kidney disease N18.32 Chronic kidney disease stage: stage 3 (moderate) Chronic kidney disease stage 3 subtype: stage 3b (GFR 30-44) Type 2 diabetes mellitus with diabetic nephropathy, with long-term current use of insulin E11.21; Z79.4 Diabetes mellitus complication detail: with nephropathy Diabetes mellitus complication status: with kidney complications Diabetes mellitus intermediate insulin use: with intermediate use Diabetes mellitus type: type 2 Hyponatremia E87.1 Metabolic acidosis E87.20 Hyperkalemia E87.5 Hypotension I95.9
== END 2024-11-14 10:14 | disposition home or self-care (01) ==
PROVIDERS: PCP Internal Medicine Geriatric Medicine; Visit Provider Internal Medicine Hypertension Specialist
DX: N18.32 Chronic kidney disease, stage 3b (principal); E11.21 Type 2 diabetes mellitus with diabetic nephropathy; Z79.4 Long term (current) use of insulin; E87.1 Hypo-osmolality and hyponatremia; E87.20 Acidosis, unspecified; E87.5 Hyperkalemia; I95.9 Hypotension, unspecified
CPT/HCPCS: 99214

== ENCOUNTER → 2024-11-14 09:52 | Outpatient (BNVA) | payer MEDICAID, SELFPAY | PROVIDERS: PCP Internal Medicine Geriatric Medicine; Visit Provider Internal Medicine Hypertension Specialist | DX: E11.22 Type 2 diabetes mellitus with diabetic chronic kidney disease (principal); E11.21 Type 2 diabetes mellitus with diabetic nephropathy; N18.32 Chronic kidney disease, stage 3b; E87.1 Hypo-osmolality and hyponatremia; E87.20 Acidosis, unspecified; E87.5 Hyperkalemia; I95.9 Hypotension, unspecified | CPT/HCPCS: 99212 ==

== ENCOUNTER 2024-12-04 08:16 | Outpatient (REF) | payer MEDICAID, SELFPAY ==
[2024-12-04 11:56] LABS: Alanine Aminotransferase 11 U/L (0-31); Alkaline Phosphatase 196 U/L (39-117); Aspartate Amino Transferase 19 U/L (5-31); Bilirubin Direct < 0.2 mg/dL (0.0-0.5); Bilirubin Total 0.2 mg/dL (0.0-1.0); Lipase 26 U/L (8-78); Total Protein 7.7 g/dL (6.5-8.0)
[2024-12-04 12:07] LABS: Folate 5.9 ng/mL (> or = 4.0); Vitamin B12 392 pg/mL (200-900)
[2024-12-04 12:16] LABS: TSH reflex Free T4 1.37 uIU/mL (0.32-4.0)
[2024-12-05 13:33] LABS: Transglutaminase IgA <1.0 U/mL
[2024-12-09 21:19] LABS: Vitamin D 25-OH, D2 21 ng/mL; Vitamin D 25-OH, D3 12 ng/mL; Vitamin D 25-OH, Total 33 ng/mL (30-100)
== END 2024-12-04 08:17 | disposition home or self-care (01) ==
LOC: HO.LAB 08:16
PROVIDERS: PCP Internal Medicine Geriatric Medicine; Visit Provider Nurse Practitioner Family
DX: R13.10 Dysphagia, unspecified (principal); R12 Heartburn; K59.09 Other constipation; E11.65 Type 2 diabetes mellitus with hyperglycemia; R13.14 Dysphagia, pharyngoesophageal phase
CPT/HCPCS: 36415; 80076; 82306; 82607; 82746; 83690; 84443; 86364; 99212

== ENCOUNTER 2024-12-04 08:16 | Outpatient (AMB) | payer MEDICAID, SELFPAY ==
--- NOTE | 2024-12-04 08:24 | MHC.OFFVIS ---
Vital Signs 12/04/24 08:47 Height 5 ft 3 in Weight 131 lb 6.328 oz BMI 23.3 BP 100/64 Blood Pressure Location Lt brachial Position Sitting Pulse 98 Pulse Source Pulse Oximeter Pulse Oximetry (%) 100 Oxygen Delivery Method Room Air Intake Visit Reasons: Difficulty swallowing was Lucy PT Intake Note: ESTABLISHED PATIENT for re-est. JOSÉ 09/2023 w. JM. 2 EGDs in 2021 w/ BZ + TH. Hx of constipation + esophagitis. Chief Complaint; C/O sx similar in presentation as to when she first was seen by GI. Pt reports not having any of her GI medications anymore. Pt reports N+V, GERD, constipation. Ground Products Director Required: Yes Ground Products Director Services: Ground Products Director Present Ground Products Director Name: LLOYD POTTS + Marlyn [id number] Information Interpreted: clinical only Accompanied by: Family/Other Allergies iron Allergy (Mild, Verified 12/04/24 08:25) UNKNOWN Iodinated Contrast Media [IV Dye, Iodine Containing] Allergy (Unknown, Verified 12/04/24 08:25) UNKNOWN iodine [IODINE] Allergy (Unknown, Verified 12/04/24 08:25) RASH seafood Allergy (Unknown, Verified 12/04/24 08:25) Unknown HPI HPI Difficulty swallowing was Lucy PT: Details: LAST VISIT: 09/12/2023 WITH DAVID FRIAS PA continue to chew well eat slowly small portions Reflux precautions avoidance of culprits Encouraged pantoprazole 40 mg QD- refilled- reenforced consistency Maintain high-fiber diet Bowel regimen Colace 200 mg as well with MiraLax q.h.s. May use suppository as needed if no adequate BM 3 days Reinforced importance of follow through with PCP Again discussed importance of following plan for prescribed medications Should not discontinue routine medications without advice prescriber/provider TODAY'S VISIT: Patient is here today for request visit. Patient previously seen by GI Frias PDA last visit in September of 2023. Patient continues with the same symptoms of dysphagia feeling like food is getting stuck in her throat as well as difficulty swallowing. Patient is accompanied by her daughter who also has her ELECTRONIC COILS SUPERVISOR. During today's visit trying to confirm medications that she is taking and they are not sure of what medication she is taking. They did not bring any list or medication to itself. Will call PCP to confirm the list. Patient's daughter reports that she knows that she gives her mother medications for blood pressure and diabetes as well as her psych medication. Patient does not know the names. Patient not really participating during the visit answers only simple yes or no. Patient did lose 19 lb since last visit in September of 2023. Patient denies any abdominal pain or discomfort. Reports she continues to be constipated. Patient denies any choking episodes. Blood sugars have not been very well controlled. Patient had critically high blood glucose in the beginning of November. Patient's daughter reports that she was refusing to take insulin for few days. Currently she is on Trulicity once a week. Patient was noted to have occasional tremors in her legs and facial tics. [facility] Medical History Dysphagia Anxiety disorder GERD (gastroesophageal reflux disease) Migraines Asthma On beta jordyn at home Elevated cholesterol HTN (hypertension) Smoker Diabetes Depression Heartburn Surgical History Hx of left knee surgery History of tubal ligation History of esophagogastroduodenoscopy (EGD) H/O colonoscopy Hx of cholecystectomy Social History Household Members: Family Housing: Apartment Alcohol intake: former Patient Tobacco Use Status: Current everyday Tobacco user Tobacco use type: Cigarette Cigarettes Per Day: 6 Second Hand Smoke Exposure: Yes service: No Current occupational status: disabled Review of Systems Const Denies weight gain and Denies weight loss ENT Reports no additional complaints, Reports dysphagia and Reports odynophagia Card Reports no additional complaints Resp Reports no additional complaints GI Denies abdominal pain, Denies belching, Denies melena, Denies bloating, Denies change in bowel habits, Reports constipation, Reports dysphagia, Denies excessive flatus, Denies dyspepsia, Reports heartburn, Denies diarrhea, Denies loose stools, Denies nausea, Reports odynophagia and Denies vomiting Reports no additional complaints Musc Reports no additional complaints Neuro Reports no additional complaints Psych Reports no additional complaints Endo Reports no additional complaints Physical Exam Vital Signs: Last Vital Signs Pulse 98 12/04/24 08:47 BP 100/64 12/04/24 08:47 Pulse Ox 100 12/04/24 08:47 Oxygen Delivery Method Room Air 12/04/24 08:47 BMI result Body Mass Index 23.3 Const General: healthy appearing, no acute distress and well developed Nutritional Appearance: well nourished Orientation/consciousness: patient oriented x3 Resp Effort & Inspection: normal respiratory effort, able to speak in complete sentences, no tracheal deviation and symmetric chest movement Auscultation: clear to auscultation bilaterally Cardio Rate: regular rate GI Inspection: Yes normal to inspection and No distended Palpation (GI): Soft to palpation, not firm, nontender and No hepatosplenomegaly present Auscultation: normal bowel sounds General: Yes no CVA tenderness Back/Spine/Pelvis Back: no CVA tenderness Skin General skin exam: elasticity normal, turgor normal and dry skin Neuro General: patient oriented x3 Psych Appearance: grossly normal Mental Status: mental status grossly normal Assessment & Plan Assessment & Plan (1) Odynophagia: Code(s): R13.10 - Dysphagia, unspecified Category: Medical (2) Heartburn: Comment: diabetes, smoke Code(s): R12 - Heartburn Category: Medical (3) Chronic constipation: Code(s): K59.09 - Other constipation Category: Medical (4) Poorly controlled diabetes mellitus: Code(s): E11.65 - Type 2 diabetes mellitus with hyperglycemia Category: Medical (5) Dysphagia: Code(s): R13.10 - Dysphagia, unspecified Qualifiers: Dysphagia type: pharyngoesophageal phase Qualified Code(s): R13.14 - Dysphagia, pharyngoesophageal phase Plan Patient reports epigastric pain. Will order lipase, transglutaminase, vitamin-D, B12 and folate as well as liver panel. Patient is constipated will order thyroid study. Patient will start taking Nexium every morning half an hour before breakfast. Patient previously on pantoprazole unsure if she is taking it patient can also take famotidine at bedtime. Avoid dietary triggers and her pain a 5 per minimal 3 hours after meals discussed with patient. Constipation, will start her on senna. Increase fluid intake and activity to promote better bowel motility. Patient was if he should well is patient is really not participating much the visit. Patient's daughter and not knowing medications that patient is taking makes me little concerned. Will have then return and bring medications to see if any of the medication are causing symptoms. Patient would definitely benefit with community navigation nurse. Return in 2 weeks, stools patient's daughter is agreeable to plan of care and verbalizes understanding of instructions. She was given the opportunity to ask questions and all questions answered. Thank you for allowing me to participate in her care Orders: Orders Lipase Today R10.9 - Unspecified abdominal pain Transglutaminase IgA Today R10.9 - Unspecified abdominal pain TSH reflex Free T4 Today K59.00 - Constipation, unspecified Vitamin B12 and Folate Today R19.7 - Diarrhea, unspecified Vitamin D 25-OH (D2 and D3) Today E55.9 - Vitamin D deficiency, unspecified Liver Panel Today R74.01 - Elevation of levels of liver transaminase levels Medications: New sennosides (Natural Senna Laxative) 17.2 mg (2 x 8.6 mg) PO BEDTIME 60 tabs 3RF constipation K59.00 - Constipation, unspecified esomeprazole magnesium (Nexium) 40 mg PO DAILY 30 caps 2RF K21.9 - Gastro-esophageal reflux disease without esophagitis famotidine (Pepcid) 20 mg PO BEDTIME 30 tabs 3RF K21.9 - Gastro-esophageal reflux disease without esophagitis Discontinued docusate sodium (Stool Softener) Discontinued Reason: Patient no longer taking 200 mg (2 x 100 mg) PO BEDTIME 180 caps 1RF pantoprazole Discontinued Reason: Patient no longer taking 40 mg PO QAM 30 days 30 tabs 11RF bisacodyl (Dulcolax (bisacodyl)) Discontinued Reason: Patient no longer taking 10 mg TN DAILY PRN 20 ea 2RF constipation polyethylene glycol 3350 (Miralax) Discontinued Reason: Patient no longer taking 17 grams PO DAILY 30 days 510 grams 6RF Coding Level of Care Code Est Pt Level 4 (71551) Complex EM visit Add On G2211 Diagnoses Odynophagia R13.10 Heartburn R12 Chronic constipation K59.09 Poorly controlled diabetes mellitus E11.65 Pharyngoesophageal dysphagia R13.14 Dysphagia type: pharyngoesophageal phase Time Spent (min) 45 Comment 30 minutes spent with patient and additional 15 minutes spent reviewing her records
--- OUTSIDE RECORDS SUMMARY | 2024-12-04 08:34 | XMS_ITS | Clinical Summary ---
Author Organization [employer] Address [address] [facility] 7t [place] [address] Care Team Providers Care Copywriting Intern Name Role Phone Name, Nolan PADILLA Primary Care Provider [phone] Allergies Active Allergy Reactions Criticality Noted Date Comments Iodine 12/17/2013 Shellfish Allergy Unknown 08/26/2022 Medications * This document contains information received from the source organization and may not represent a complete record from that organization. butalbital-aceta minophen-caffein e 50-325-40 MG tablet TAKE 1 TABLET BY MOUTH EVERY 8 HOURS NEEDED. DO NOT EXCEED 3 TABLETS IN 24 HOURS. DO NOT USE MORE THAN 2-3 TIMES PER WEEK 022 Active HM Nicotine 14 MG/24HR patch APPLY 1 PATCH TOPICALLY TO THE SKIN DAILY IN THE MORNING THEN REMOVE AT BEDTIME DIRECTED. DO NOT SMOKE WHILE USING PATCH 022 Active SUMAtriptan (Imitrex) 50 MG tablet TAKE 1 TABLET BY MOUTH AT ONSET OF MIGRAINE. MAY REPEAT ONCE AFTER 2 HOURS IF NEEDED 022 Active fluticasone (Flonase) 50 MCG/ACT nasal sprayIndications :Diabetes mellitus type 2 in nonobese (CMS/HCC) INHALE 2 SPRAYS IN EACH NOSTRIL ONCE DAILY 48 g 1 023 Active ergocalciferol (Vitamin D2) 1.25 MG (57349 UT) capsule TAKE 1 CAPSULE BY MOUTH ONCE WEEKLY ON MONDAY MORNING 4 capsule 11 023 Active pantoprazole (ProtoNix) 40 MG EC tablet TAKE 1 TABLET BY MOUTH EVERY MORNING (40 MINUTES BEFORE MEALS) 023 Active Blood Pressure kit Use once a day 1 kit 023 Active hydrOXYzine HCl (Atarax) 25 MG tablet Take 1 tablet (25 mg) by mouth every 8 (eight) hours if needed for itching or anxiety. 90 tablet 024 Active FREESTYLE LITE test stripIndications :Type 2 diabetes mellitus with other specified complication, with long-term current use of insulin ([facility]) TEST BLOOD SUGAR ONCE DAILY 50 strip 11 024 Active aspirin (Aspirin Adult Low Strength) 81 MG EC tabletIndication s:Hypertension, unspecified type Take 1 tablet (81 mg) by mouth in the morning. 90 tablet 3 024 Active TRUEplus Lancets 33G miscIndications: Type 2 diabetes mellitus with other specified complication, with long-term current use of insulin ([facility]) TEST BLOOD SUGAR EVERY DAY DIRECTED 100 each 1 024 Active Lantus SoloStar 100 UNIT/ML penIndications:T ype 2 diabetes mellitus with other specified complication, with long-term current use of insulin ([facility]) Inject 30 Units under the skin at bedtime. Decrease to 20 units once she starts on Trulicity 3 mL 11 024 Active docusate sodium (Colace) 100 MG capsule TAKE 2 TABLETS BY MOUTH EVERY DAY AT BEDTIME 024 Active metoprolol succinate XL (Toprol-XL) 50 MG 24 hr tabletIndication s:Depression, unspecified depression type TAKE 1 TABLET BY MOUTH EVERY MORNING 90 tablet 025 Active pen needle 31G x 6 mm miscIndications: Type 2 diabetes mellitus with hyperglycemia, without long-term current use of insulin ([facility]) USE DIRECTED TO INJECT INSULIN 100 each 025 Active Jardiance 10 MGIndications:Pr oteinuria due to type 2 diabetes mellitus ([facility]/HCC) ([facility]) TAKE 1 TABLET BY MOUTH EVERY MORNING 30 tablet 11 025 Active Lokelma 5 g packet Dissolve 1 packet (5 g) in 3 tablespoonfuls or more of water & drink immediately. If residual powder remains in glass add additional water; mix & drink until gone. Use twice weekly 024 Active atorvastatin (Lipitor) 20 MG tabletIndication s:Diabetes mellitus type 2 in nonobese ([facility]) TAKE 1 TABLET BY MOUTH AT BEDTIME 90 tablet 1 025 Active prazosin (Minipress) 2 MG capsuleIndicatio ns:Depression, unspecified depression type TAKE 1 CAPSULE BY MOUTH EVERY MORNING and TAKE 2 CAPSULES BY MOUTH EVERY DAY AT BEDTIME 90 capsule 025 Active FLUoxetine (PROzac) 10 MG capsuleIndicatio ns:Depression, unspecified depression type TAKE 1 CAPSULE BY MOUTH EVERY MORNING 30 capsule 025 Active haloperidol (Haldol) 5 MG tabletIndication s:Depression, unspecified depression type TAKE 1 TABLET BY MOUTH TWICE DAILY IN THE MORNING AND AT BEDTIME 60 tablet 1 025 Active mirtazapine (Remeron) 7.5 MG tabletIndication s:Depression, unspecified depression type TAKE 1 TABLET BY MOUTH AT BEDTIME 30 tablet 1 025 Active Trulicity 0.75 MG/0.5ML solution auto-injector INJECT ONE PEN (=0.75MG) SUBCUTANEOUSLY ONCE A WEEK DIRECTED 2 mL 2 025 Active gabapentin (Neurontin) 100 MG capsuleIndicatio ns:Diabetic polyneuropathy associated with type 2 diabetes mellitus (CMS/HCC) TAKE 1 CAPSULE BY MOUTH AT BEDTIME 30 capsule 025 Active Alcohol Swabs (Alcohol Prep) 70 % padsIndications: Controlled diabetes mellitus type 2 with complications, unspecified whether group home insulin use (CMS/HCC) USE DIRECTED THREE TIMES DAILY 100 each 025 Active benztropine (Cogentin) 0.5 MG tabletIndication s:Mood disorder (CMS/HCC) TAKE 1 TABLET BY MOUTH TWICE DAILY IN THE MORNING AND IN THE EVENING 60 tablet 025 Active Alcohol Swabs (Alcohol Prep) 70 % padsIndications: Controlled diabetes mellitus type 2 with complications, 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 Apply to mouth ulcer. 5 g 024 2024 Dulaglutide (Trulicity) 0.75 MG/0.5ML solution auto-injector Inject 0.5 mL (0.75 mg) under the skin 1 (one) time per week. 2 mL 2 024 2024 Discontinued benztropine (Cogentin) 0.5 MG tabletIndication s:Mood disorder (CMS/HCC) TAKE 1 TABLET BY MOUTH TWICE DAILY IN THE MORNING AND IN THE EVENING 60 tablet 1 025 2024 Discontinued(R eorder (will not trigger notification to Pharmacy)) gabapentin (Neurontin) 100 MG capsuleIndicatio ns:Diabetic polyneuropathy associated with type 2 diabetes mellitus (CMS/HCC) TAKE 1 CAPSULE BY MOUTH AT BEDTIME 30 capsule 025 2024 Discontinued Active Problems [...] seek services. PLAN: 1. Follow up with [facility]: Not recommended for follow-up 2. Patient goal [...] seek services. PLAN: 1. Follow up with [facility]: Not recommended for follow-up 2. Patient goal is to engage in MH services 3. Behavioral Recommendations a. Ind. Therpay b. MEd. Management c. Use of coping skills provided. Cobalamin deficiency 06/21/2018 Type 2 diabetes mellitus 06/21/2018 Vitamin D deficiency 06/21/2018 Mood disorder 01/10/2018 Noncompliance with treatment 07/05/2017 Hypertension 10/31/2013 Encounters Date Type Department Care Team Description 11/26/2024 Telephone [facility] [address] [place] [address] Heather Smith MA may recalls 11/22/2024 Population Health Risk Score [facility] () Department [address] [place] [address], [place] [phone] Provider, Population Health Generic 11/21/2024 Refill [facility] [address] [place] [address] Nolan Blevins MD Diabetic polyneuropathy associated with type 2 diabetes mellitus ([facility]); Controlled diabetes mellitus type 2 with complications, 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 ([facility]); Mood disorder ([facility]) 11/21/2024 Refill [facility] PEDS [address] [place] [address] Monik Deshpande NP Mood disorder ([facility]) 11/12/2024 Telephone [facility] [address] [place], [place] [phone] Nolan Blevins MD 11/12/2024 Orders Only GENERIC EXTERNAL DATA DEPARTMENT Provider, Generic External Data 11/08/2024 Refill [facility] [address] [place] [address] Nolan Blevins MD 10/22/2024 Refill [facility] [address] [place], [place] [phone] Justyna Manuel MD Diabetes mellitus type 2 in nonobese ([facility]); Depression, unspecified depression type; Diabetic polyneuropathy associated with type 2 diabetes mellitus ([facility]) 10/12/2024 Refill [facility] [address] [place] [address] Nolan Blevins MD Proteinuria due to type 2 diabetes mellitus ([facility]/HCC) ([facility]) 09/19/2024 Refill [facility] [address] [place] [address] Nolan Blevins MD Depression, unspecified depression type; Diabetic polyneuropathy associated with type 2 diabetes mellitus ([facility]) 09/19/2024 Refill [facility] [address] [place] [address] Nolan Blevins MD Depression, unspecified depression type; Type 2 diabetes mellitus with hyperglycemia, without long-term current use of insulin ([facility]) 09/19/2024 Refill [facility] [address] [place] [address] Latesha Velasquez FNP Type 2 diabetes mellitus with hyperglycemia, without long-term current use of insulin ([facility]) 09/15/2024 Refill [facility] [address] [place] [address] Monik Deshpande NP Mood disorder ([facility]) from Last 3 Months Immunizations Name Administration [...] 3:30 PM EDT Medication Management [facility] [address] [place] [phone] Elizabeth Perez, PharmD [address] [place] [phone] 03/07/2025 10:15 AM EDT Office Visit [facility] [address] [place] [phone] Name, MD Nolan [address] [place] [phone] Health Maintenance Due Date Last Done Comments [...] METABOLIC PANEL Routine 11/12/2024 1:51 PM EST POCT GLYCATED HEMOGLOBIN, TOTAL Routine 08/22/2024 [...] SCREENING BILATERAL Routine 06/22/2018 1:13 PM EDT COLONOSCOPY Routine 03/13/2018 DIABETES EYE EXAM Routine 04/20/2012 from Last 3 Months or Most Recently Relevant to Health Maintenance Results * (ABNORMAL) Basic Metabolic Panel (11/12/2024 1:51 PM EST) Sodium 123(L) 135 - 145 mmol/L [facility] Potassium 4.5 3.3 - 5.1 mmol/L [facility] Chloride 96 96 - 108 mmol/L [facility] Carbon Dioxide 18(L) 22 - 29 mmol/L [facility] Anion Gap 14 12 - 20 [facility] Urea Nitrogen (BUN) 24(H) 9 - 16 mg/dL [facility] Creatinine, Serum 2.03(H) 0.5 - 1.4 mg/dL [facility] Estimated Glomerular Filt Rate 25 [facility] Comment:Chronic Kidney Disea se: Estimated GFR < 60 mL/min/1.73c7Fljgmw Kidney Disease: Estimated GFR < 15 mL/min/1.73m2 Glucose 666(HH) 60 - 115 mg/dL [facility] Comment:Critical value for t est(s):GLUR Results called to and readback by:JUNE Stone Person calling:VERONIQUE Date: 11/12/24Time:1459 Calcium 9.0 8.4 - 10.2 mg/dL [facility] 11/12/2024 1:51 PM EST 11/12/2024 1:51 PM EST us Generic External Data Provider LAB BLOOD ORDERAB LES Edited Result - Final [facility] [address] [place] [phone] * (ABNORMAL) POCT HGB A1C (08/22/2024 10:00 AM EST) Hemoglobin A1C 9.7(A) 4.0 - 6.0 % QC Media Lot # [id number] Lot# Expiration Date Blood 08/22/2024 10:0 0 AM EST us Nolanravindra Blevins MD POINT OF CARE TEST ENTER/EDIT OR DERABLES Final Result * Lipid Panel, Standard (11/14/2023 10:26 AM EST) Triglycerides 126 <150 mg/dL [facility] Comment:Desirable Triglyceri de: less than 150 mg/dLBorderline High Triglyceride 150-199 mg/dLHigh Triglyceride: 200-499 mg/dLVery High Triglyceride: greater than or equal to 5OO mg/dL Cholesterol 149 <200 mg/dL [facility] Comment:Desirable Cholestero l: less than 200 mg/dLBorderline High Cholesterol: 200-239 mg/dLHigh Cholesterol: greater than 239 mg/dL LDL Cholesterol Calculated 76 <100 mg/dL [facility] Comment:Desirable LDL: less than 100 mg/dLNear Optimal/Above Optimal LDL: 110- 129 mg/dLBorderline High LDL: 130-159 mg/dLHigh LDL: 160-189 mg/dLVery High LDL: greater than or equal to 190 mg/dL HDL Cholesterol 48 >40 mg/dL [facility] Comment:Desirable HDL: great er than 40 mg/dL Note: This HDL assay may give artificially low results in patients with liver disease. Blood Venous blood specimen / Unknown 11/14/2023 10:26 AM EST 11/14/2023 2:10 PM EST Nolan Blevins MD LAB BLOOD ORDERABLES Final Resul t Performing Organization Address [facility] de Phone Number [facility] [address] [place] [phone] * HEPATITIS C AB W/REFL TO HCV RNA, QN, PCR (11/13/2020 2:31 PM EST) HEPATITIS C ANTIBODY NON-REACT [place] NON-REACT [facility] INDEX 0.01 <1.00 [facility] Comment: ?? HCV antibody was non-reactive. There is no laboratory ?? evidence of HCV infection. ?? In most cases, no further action is required. However, if recent HCV exposure is suspected, a test for HCV RNA (test code 40141) is suggested. ?? For additional information please refer to http://education.Animalvitae/faq/UEG01h0 (This link is being provided for informational/ educational purposes only.) ?? 11/13/2020 2:31 PM EST Stefany Griffiths MD HISTORICAL/NON ORDERABLE LABS Final Result Performing Organization Address [facility] de Phone Number [facility] [address] [place] [phone], * DIGITAL BILATERAL SCREEN 1 (06/22/2018 1:13 [...] Eye Exam (04/20/2012) Eye Exam Normal Normal [facility] External Provider HEALTH MAINTENANCE Final Result from Last 3 Months or Most Recently Relevant to Health Maintenance Insurance [facility] C3 Care Teams Copywriting Intern Relationship Specialty Start Date End Date Name, MD Nolan [address] [place] [phone] PCP - General Family Medicine 06/13/18
--- OUTSIDE RECORDS SUMMARY | 2024-12-04 08:34 | XMS_ITS | Encounter Summary ---
Author Organization [employer] Address [address] [place] [address] 7t [place] [address] Care Team Providers Care Cyanide Pot Hardener Name Role Phone Name, Nolan PADILLA Primary Care Provider [phone] Reason for Visit * Reason Comments Med Refill Encounter Details Date Type Department Care Team (Late st Contact Info) Description 04/25/2023 Refill [facility] [address] [place], [place] [phone] Marlys Romero FNP [address] [place] [address] Dept [place] [address] Type 2 diabetes mellitus without complication, 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 servicer insulin use ([facility]) Social History Tobacco Use Types Packs/Day Years [...] 3:30 PM EDT Medication Management [facility] [address] [place], [place] [phone] Elizabeth Perez, PharmD [address] [place], [place] [phone] 03/07/2025 10:15 AM EDT Office Visit [facility] [address] [place] [address] Name, [place] [phone] documented as of this encounter Visit Diagnoses Diagnosis Type 2 diabetes mellitus without complication, unspecified whether correction insulin use ([facility]) documented in this encounter Additional Health Concerns Assessment Noted Time PHQ-9 Depression Total Score: 7 04/18/20 23 10:20 AM EDT documented as of this encounter Care Teams Cyanide Pot Hardener Relationship Specialty Start Date End Date Name, [place] [address] PCP - General Family Medicine 06/13/18 documented as of this encounter
--- OUTSIDE RECORDS SUMMARY | 2024-12-04 08:34 | XMS_ITS | Encounter Summary ---
Author Organization [employer] Address [address] [facility] 7t [place] [address] Care Team Providers Care Health Nurse Name Role Phone Name, Nolan PADILLA Primary Care Provider [phone] Encounter Details Date Type Department Care Team [...] 12/11/2024 3:30 PM EDT Medication Management [facility] [address] [place], [place] [phone] Elizabeth Perez, AlyssaD [address] [place], [place] [phone] 03/07/2025 10:15 AM EDT Office Visit [facility] [address] [place], [place] [phone] Name, MD Nolan [address] [place] [employer], [place] [phone] documented as of this encounter Procedures Procedure Name Priority Date/Time Associated Diagnosis Comments BASIC METABOLIC PANEL Routine 11/12/2024 1:51 PM EST documented in this encounter Results * (ABNORMAL) Basic Metabolic Panel (11/12/2024 1:51 PM EST) Sodium 123(L) 135 - 145 mmol/L [facility] Potassium 4.5 3.3 - 5.1 mmol/L [facility] Chloride 96 96 - 108 mmol/L [facility] Carbon Dioxide 18(L) 22 - 29 mmol/L [facility] Anion Gap 14 12 - 20 [facility] Urea Nitrogen (BUN) 24(H) 9 - 16 mg/dL [facility] Creatinine, Serum 2.03(H) 0.5 - 1.4 mg/dL [facility] Estimated Glomerular Filt Rate 25 [facility] Comment:Chronic Kidney Disea se: Estimated GFR < 60 mL/min/1.18j3Gtopph Kidney Disease: Estimated GFR < 15 mL/min/1.73m2 Glucose 666(HH) 60 - 115 mg/dL [facility] Comment:Critical value for t est(s):GLUR Results called to and readback by:JUNE Stone Person calling:VERONIQUE Date: 11/12/24Time:1459 Calcium 9.0 8.4 - 10.2 mg/dL [facility] 11/12/2024 1:51 PM EST 11/12/2024 1:51 PM EST us Generic External Data Provider LAB BLOOD ORDERAB LES Edited Result - Final [facility] [address] [place] [address] [phone] documented in this encounter Visit Diagnoses Not on filedocumented in this encounter Additional Health Concerns Assessment Noted Time PHQ-9 Depression Total Score: 7 04/18/20 23 10:20 AM EDT documented as of this encounter Care Teams Health Nurse Relationship Specialty Start Date End Date Name, MD Nolan [address] [place] [address] PCP - General Family Medicine 06/13/18 documented as of this encounter
--- OUTSIDE RECORDS SUMMARY | 2024-12-04 08:34 | XMS_ITS | Encounter Summary ---
Author Organization [employer] Address [address] [facility] 7t [place] [address] Care Team Providers Care Semiconductor Development Technician Name Role Phone Name, Nolan PADILLA Primary Care Provider [phone] Reason for Visit * Reason Onset Date Comments Nurse Triage 07/27/2023 Encounter Details Date Type Department Care Team (Late st Contact Info) Description 07/27/2023 Telephone [facility] [address] [place], [place] [phone] Name, MD Nolan [address] [place] [address] Nurse Triage Social History Tobacco Use Types [...] t he electric, gas, oil or water [employer] threatened to shut off services in your [...] - 07/27/2023 4:38 PM EST T/C to [phone] to daughter for below message, daughter verbally [...] acuity questions The caller accepted this outcome Lao Speaker documented in this encounter Plan of Treatment Upcoming Encounters Date Type Department Care Team (Late st Contact Info) Description 12/11/2024 3:30 PM EDT Medication Management [facility] [address] [place] [phone] Elizabeth Perez, PharmD [address] [place] [address] 03/07/2025 10:15 AM EDT Office Visit [facility] [address] [place] [phone] Name, MD Nolan [address] [place] [address] documented as of this encounter Visit Diagnoses Not on filedocumented in this encounter Additional Health Concerns Assessment Noted Time PHQ-9 Depression Total Score: 7 04/18/20 23 10:20 AM EDT documented as of this encounter Care Teams Semiconductor Development Technician Relationship Specialty Start Date End Date NameNolan MD [address] [place] [phone] PCP - General Family Medicine 06/13/18 documented as of this encounter
--- OUTSIDE RECORDS SUMMARY | 2024-12-04 08:34 | XMS_ITS | Encounter Summary ---
Author Organization [employer] Address [address] [facility] 7t [place] [address] Care Team Providers Care Library Supervisor Name Role Phone Name, Nolan PADILLA Primary Care Provider [phone] Reason for Visit * Reason Comments Med Refill Encounter Details Date Type Department Care Team (Late st Contact Info) Description 09/21/2023 Refill [facility] [address] [place], [place] [phone] Name, MD Nolan [address] [facility] [address] Hypertension, unspecified type Social History Tobacco Use [...] Description 12/11/2024 3:30 PM EDT Medication Management [facility] [address] [place] [phone] Elizabeth Perez, AlyssaD [address] [place] [address] 03/07/2025 10:15 AM EDT Office Visit [facility] [address] [place] [address] Name, MD Nolan [address] [place] [address] documented as of this encounter Visit Diagnoses Diagnosis Hypertension, unspecified type documented in this encounter Additional Health Concerns Assessment Noted Time PHQ-9 Depression Total Score: 7 04/18/20 23 10:20 AM EDT documented as of this encounter Care Teams Library Supervisor Relationship Specialty Start Date End Date Name, MD Nolan [address] [place] [phone] PCP - General Family Medicine 06/13/18 documented as of this encounter
--- OUTSIDE RECORDS SUMMARY | 2024-12-04 08:34 | XMS_ITS | Encounter Summary ---
Author Organization [employer] Address [address] [facility] 7t [place] [address] Care Team Providers Care Green Building Design Specialist Name Role Phone Name, Nolan PADILLA Primary Care Provider [phone] Encounter Details Date Type Department Care Team (Latest Contact Info) Description 09/07/2020 Abstract [facility] Dental, Provider, DDS Social History [...] Description 12/11/2024 3:30 PM EDT Medication Management [facility] [address] [place] [phone] Elizabeth Perez, PharmD [address] [place] [address] 03/07/2025 10:15 AM EDT Office Visit [facility] [address] [place] [phone] Name, MD Nolan [address] [place] [phone] documented as of this encounter Visit Diagnoses Not on filedocumented in this encounter Care Teams Green Building Design Specialist Relationship Specialty Start Date End Date Name, MD Nolan [address] [place] [phone] PCP - General Family Medicine 06/13/18 documented as of this encounter
--- OUTSIDE RECORDS SUMMARY | 2024-12-04 08:34 | XMS_ITS | Encounter Summary ---
Author Organization [employer] Address 75 [facility] 7t [place] [address] Care Team Providers Care Industrial Conveyor Belt Repairer Name Role Phone Name, Nolan PADILLA Primary Care Provider [phone] Encounter Details Date Type Department Care Team ([facility] st Contact Info) Description 11/12/2024 Telephone [facility] MEDICINE [address] [place], [place] [phone] Name, MD Nolan 230 [place], [place] [phone] Social History Tobacco Use Types Packs/Day Years [...] Telephone Encounter - Estee Vizcaino RN - 11/13/2024 3:50 PM EST T/C returned to pt's daughter via BLS Regulatory Affairs Coordinator Seaid #[id number] to advise of PCP recommendation for pt to go to ED for IV fluids and insulin. No answer x 3 attempts. V/M left to return call to Blue team nurses. * Telephone Encounter - Lefty Acevedo - 11/13/2024 3:32 PM EST TC from pt Daughter requesting a call back regarding prior message. Contact pt at [phone] * Telephone Encounter - Estee Vizcaino RN - 11/13/2024 10:16 AM EST No recent notes in [facility] for pt. T/C to pt via BLS Regulatory Affairs Coordinator Curly #[id number] for status check and to advise pt again of PCP recommendation to go to Ed for IV fluids and insulin. No answer, v/m left to return call to Blue team nurses. T/C to pt's daughter. No answer, v/m left to return call to Blue team nurses. * Telephone Encounter - Estee Vizcaino RN - 11/12/2024 4:13 PM EST Call placed to pt's daughter via BLS Regulatory Affairs Coordinator Sal #[phone] to advise of PCP recommendation for pt to go to ED for IV fluids and insulin d/t critical glucose. No answer, v/m left to return callto Blue team nurses. * Telephone Encounter - Estee Vizcaino RN - 11/12/2024 3:08 PM EST [facility] Is this patient in the hospital? If she is not I would recommend she goes. She will need IV fluids and insulin No recent notes for pt in [facility] system. T/C to pt via BLS Regulatory Affairs Coordinator Lalit #[id number]. Advised of PCP recommendation. Pt agrees to go to [facility] ED[facility]. Pt agrees to call to schedule f/u upon discharge. T/C to pt's daughter via BLS Regulatory Affairs Coordinator Nelson. No answer x 2 attempts, v/m left to return call to Blue team nurses. documented in this encounter Plan of Treatment Upcoming Encounters Date Type Department Care Team (Late st Contact Info) Description 12/11/2024 3:30 PM EDT Medication Management [facility] MEDICINE [address] [place] [phone] Elizabeth Perez, PharmD [address] [place] [address] 03/07/2025 10:15 AM EDT Office Visit [facility] [address] [place] [address] Name, MD Nolan [address] [place] [address] documented as of this encounter Visit Diagnoses Not on filedocumented in this encounter Additional Health Concerns Assessment Noted Time PHQ-9 Depression Total Score: 7 04/18/20 23 10:20 AM EDT documented as of this encounter Care Teams Industrial Conveyor Belt Repairer Relationship Specialty Start Date End Date Nolan Blevins MD [address] [place] [address] PCP - General Family Medicine 06/13/18 documented as of this encounter
--- OUTSIDE RECORDS SUMMARY | 2024-12-04 08:34 | XMS_ITS | Encounter Summary ---
Author Organization [employer] Address 75 [facility] 7t [place] [address] Care Team Providers Care Asset Protection Lead Name Role Phone Name, Nolan PADILLA Primary Care Provider [phone] Reason for Visit * Reason Comments Med Refill Encounter Details Date Type Department Care Team ([facility] st Contact Info) Description 11/08/2024 Refill [facility] MEDICINE 230 [place], [place] [phone] Name, MD Nolan 230 [place], [place] [phone] Social History Tobacco Use Types Packs/Day Years [...] t he electric, gas, oil or water [employer] threatened to shut off services in your [...] Description 12/11/2024 3:30 PM EDT Medication Management [facility] MEDICINE [address] [place] [address] Elizabeth Perez, AlyssaD [address] [place] [address] 03/07/2025 10:15 AM EDT Office Visit [facility] MED[facility]INE [address] [place] [address] Name, MD Nolan [address] [place] [address] documented as of this encounter Visit Diagnoses Not on filedocumented in this encounter Additional Health Concerns Assessment Noted Time PHQ-9 Depression Total Score: 7 04/18/20 23 10:20 AM EDT documented as of this encounter Care Teams Asset Protection Lead Relationship Specialty Start Date End Date NameNolan MD [address] [place] [address] PCP - General Family Medicine 06/13/18 documented as of this encounter
--- OUTSIDE RECORDS SUMMARY | 2024-12-04 08:34 | XMS_ITS | Encounter Summary ---
Author Organization [employer] Address 75 [facility] 7t [place] [address] Care Team Providers Care Field Care Advocate Name Role Phone Name, Nolan PADILLA Primary Care Provider [phone] Reason for Visit * Reason Onset Date Comments Med Refill 07/03/2024 Encounter Details Date Type Department Care Team (Late st Contact Info) Description 07/03/2024 Telephone [facility] MEDICINE 230 [place], [place] [phone] Name, MD Nolan 230 [place] [address] Med Refill Social History Tobacco Use Types [...] 20 MG tablet To be sent to: [facility] - [place], [place] - [address] [place] [address] documented in this encounter Plan of Treatment Upcoming Encounters Date Type Department Care Team ([facility] st Contact Info) Description 12/11/2024 3:30 PM EDT Medication Management [facility] MED[facility]INE [address] [place] [address] Elizabeth Perez, PharmD [address] [place] [address] 03/07/2025 10:15 AM EDT Office Visit [facility]INE [address] [place] [address] 9[address] Name, MD Nolan 230 [place] [address] documented as of this encounter Visit Diagnoses Not on filedocumented in this encounter Additional Health Concerns Assessment Noted Time PHQ-9 Depression Total Score: 7 04/18/20 23 10:20 AM EDT documented as of this encounter Care Teams Field Care Advocate Relationship Specialty Start Date End Date Name, MD Nolan [address] [place] [address] PCP - General Family Medicine 06/13/18 documented as of this encounter
--- OUTSIDE RECORDS SUMMARY | 2024-12-04 08:34 | XMS_ITS | Encounter Summary ---
Author Organization [employer] Address 75 [facility] 7t [place] [address] Care Team Providers Care Laser Specialist Name Role Phone Name, Nolan PADILLA Primary Care Provider [phone] Reason for Visit * Reason Onset Date Comments Reschedule 10/04/2023 Encounter Details Date Type Department Care Team (Late st Contact Info) Description 10/04/2023 Telephone [facility] MEDICINE 230 [place], [place] [phone] Name, MD Nolan 230 [place] [address] Reschedule Social History Tobacco Use Types Packs/Day [...] Miscellaneous Notes * Telephone Encounter - Naty Hernnadez - 10/04/2023 8:30 AM EST Tc from pt daughter requesting r/s f/u appt from 10/06/23, process description writer 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 documented in this encounter Plan of Treatment Upcoming Encounters Date Type Department Care Team (Late st Contact Info) Description 12/11/2024 3:30 PM EDT Medication Management [facility] MEDICINE [address] [place] [phone] Elizabeth Perez, PharmD [address] [place] [address] 03/07/2025 10:15 AM EDT Office Visit [facility]INE [address] [place] [address] Name, MD Nolan [address] [place] [address] documented as of this encounter Visit Diagnoses Not on filedocumented in this encounter Additional Health Concerns Assessment Noted Time PHQ-9 Depression Total Score: 7 04/18/20 23 10:20 AM EDT documented as of this encounter Care Teams Laser Specialist Relationship Specialty Start Date End Date NameNolan MD [address] [place] [address] PCP - General Family Medicine 06/13/18 documented as of this encounter
--- OUTSIDE RECORDS SUMMARY | 2024-12-04 08:35 | XMS_ITS | Encounter Summary ---
Author Organization [employer] Address [address] [facility] 7t [place] [address] Care Team Providers Care Patient Safety Sitter Name Role Phone Name, Nolan PADILLA Primary Care Provider [phone] Reason for Visit * Reason Comments Med Refill Encounter Details Date Type Department Care Team (Late st Contact Info) Description 08/23/2024 Refill [facility] PEDS [address] [place], [place] [phone] Name, MD Nolan [address] [facility] [place] [address] Diabetic polyneuropathy associated with type 2 diabetes [...] Description 12/11/2024 3:30 PM EDT Medication Management [facility] MEDICINE [address] [place] [phone] Elizabeth Perez, PharmD [address] [place] [address] 03/07/2025 10:15 AM EDT Office Visit [address] [address] Name, MD Nolan [address] [place] [address] documented as of this encounter Visit Diagnoses Diagnosis Diabetic polyneuropathy associated with type 2 diabetes mellitus ([facility]) documented in this encounter Additional Health Concerns Assessment Noted Time PHQ-9 Depression Total Score: 7 04/18/20 23 10:20 AM EDT documented as of this encounter Care Teams Patient Safety Sitter Relationship Specialty Start Date End Date NameNolan MD [address] [place] [address] PCP - General Family Medicine 06/13/18 documented as of this encounter
--- OUTSIDE RECORDS SUMMARY | 2024-12-04 08:35 | XMS_ITS | Encounter Summary ---
Author Organization [employer] Address 75 [facility] 7t [place] [address] Care Team Providers Care Turbine Engineer Name Role Phone Name, Nolan PADILLA Primary Care Provider [phone] Reason for Visit * Reason Comments Med Refill Encounter Details Date Type Department Care Team ([facility] st Contact Info) Description 08/23/2024 Refill [facility]S [address] [place], [place] [phone] Justyna Manuel MD 230 [place], [place] [phone] Depression, unspecified depression type; Diabetes mellitus type [...] Description 12/11/2024 3:30 PM EDT Medication Management [facility] MEDICINE [address] [place] [address] Elizabeth Perez, PharmD [address] [place] [address] 03/07/2025 10:15 AM EDT Office Visit [facility] MEDICINE [address] [place] [address] Name, MD Nolan [address] [place] [address] documented as of this encounter Visit Diagnoses Diagnosis Depression, unspecified depression type Diabetes mellitus type 2 in nonobese (CMS/[facility]) Type II or unspecified type diabetes mellitus without mention of complication, not stated as uncontrolled documented in this encounter Additional Health Concerns Assessment Noted Time PHQ-9 Depression Total Score: 7 04/18/20 23 10:20 AM EDT documented as of this encounter Care Teams Turbine Engineer Relationship Specialty Start Date End Date Name, MD Nolan [address] [place] [address] PCP - General Family Medicine 06/13/18 documented as of this encounter
--- OUTSIDE RECORDS SUMMARY | 2024-12-04 08:35 | XMS_ITS | Encounter Summary ---
Author Organization [employer] Address 75 [facility] 7t [place] [address] Care Team Providers Care Clearing Inspector Name Role Phone Name, Nolan PADILLA Primary Care Provider [phone] Reason for Visit * Reason Onset Date Comments may recalls 11/26/2024 Encounter Details Date Type Department Care Team (Late st Contact Info) Description 11/26/2024 Telephone [facility] MEDICINE 230 [place], [place] [phone] Heather Smith MA may recalls Social History Tobacco Use Types Packs/Day Years Used Date Smoking Tobacco: Some Days Cigarettes Smokeless Tobacco: Never Alcohol Use Standard Drinks/Week Comments Never 0 (1 standard drink = 0.6 oz pur e alcohol) Depression Answer Date Recorded Patient Health Questionnaire-9 Score 7 04/18/2023 Housing Stability Answer Date Recorded What is your housing situation today? I have frediviral jean 06/29/[address] you [...] encounter Miscellaneous Notes * Telephone Encounter - Heather Smith MA - 11/26/2024 1:35 PM EDT Telephone call to patient to schedule the following recall: Visit type: Follow up Appointment notes: DM Patient agree to appointment on 03/07/25 at 10:15 AM with Name. documented in this encounter Plan of Treatment Upcoming Encounters Date Type Department Care Team (Late st Contact Info) Description 12/11/2024 3:30 PM EDT Medication Management [facility] MEDICINE [address] [place] [address] PuiaElizabeth, PharmD [address] [place] [address] 03/07/2025 10:15 AM EDT Office Visit [facility] MEDICINE [address] [place] [address] Name, MD Nolan [address] [place] [address] 72065 documented as of this encounter Visit Diagnoses Not on filedocumented in this encounter Additional Health Concerns Assessment Noted Time PHQ-9 Depression Total Score: 7 04/18/20 23 10:20 AM EDT documented as of this encounter Care Teams Clearing Inspector Relationship Specialty Start Date End Date NameNolan MD [address] [place] [address] PCP - General Family Medicine 06/13/18 documented as of this encounter
--- OUTSIDE RECORDS SUMMARY | 2024-12-04 08:35 | XMS_ITS | Encounter Summary ---
Author Organization [employer] Address [address] [facility] 7t [place] [address] Care Team Providers Care Engineering Manager Name Role Phone Name, Nolan PADILLA Primary Care Provider [phone] Reason for Visit * Reason Comments Med Refill Encounter Details Date Type Department Care Team ([facility] st Contact Info) Description 11/21/2024 Refill [facility] MED & PEDS [address] [place], [place] [phone] Monik Deshpande, MANAGER WELLNESS [address] [place], [place] [phone] Mood disorder (CMS/HCC) Social History Tobacco Use Types Packs/Day [...] 12/11/2024 3:30 PM EDT Medication Management [facility] MEDICINE [address] [place] [address] Elizabeth Perez, PharmD [address] [place] [address] 03/07/2025 10:15 AM EDT Office Visit [facility] MEDICINE [address] [place] [address] NameNolan MD [address] [place] [address] documented as of this encounter Visit Diagnoses Diagnosis Mood disorder (CMS/HCC) Unspecified episodic mood disorder documented in this encounter Additional Health Concerns Assessment Noted Time PHQ-9 Depression Total Score: 7 04/18/20 23 10:20 AM EDT documented as of this encounter Care Teams Engineering Manager Relationship Specialty Start Date End Date NameNolan MD [address] [place] [address] PCP - General Family Medicine 06/13/18 documented as of this encounter
--- OUTSIDE RECORDS SUMMARY | 2024-12-04 08:35 | XMS_ITS | Encounter Summary ---
Author Organization [employer] Address 75 [facility] 7t [place] [address] Care Team Providers Care Antenna Installer Name Role Phone Name, Nolan PADILLA Primary Care Provider [phone] Reason for Visit * Reason Comments Med Refill Encounter Details Date Type Department Care Team (Late st Contact Info) Description 11/21/2024 Refill [facility] MED & PEDS [address] [place], [place] [phone] Name, MD Nolan 230 [facility] [place], [place] [phone] Diabetic polyneuropathy associated with type 2 diabetes mellitus (CMS/HCC); Controlled diabetes mellitus type 2 with complications, unspecified whether assisted insulin use (CMS/HCC); Mood disorder (CMS/HCC) Social History Tobacco Use [...] Description 12/11/2024 3:30 PM EDT Medication Management [facility] MEDICINE [address] [place] [address] Elizabeth Perez PharmD [address] [place] [address] 03/07/2025 10:15 AM EDT Office Visit [facility] MEDICINE [address] [place] [address]26 Name, MD Nolan [address] [place] [address] documented as of this encounter Visit Diagnoses Diagnosis Diabetic polyneuropathy associated with type 2 diabetes mellitus ([facility]) Controlled diabetes mellitus type 2 with complications, unspecified whether terminal block assembler insulin use ([facility]) Mood disorder ([facility]) Unspecified episodic mood disorder documented in this encounter Additional Health Concerns Assessment Noted Time PHQ-9 Depression Total Score: 7 04/18/20 23 10:20 AM EDT documented as of this encounter Care Teams Antenna Installer Relationship Specialty Start Date End Date NameNolan MD [address] [place] [address] PCP - General Family Medicine 06/13/18 documented as of this encounter
--- OUTSIDE RECORDS SUMMARY | 2024-12-04 08:35 | XMS_ITS | Encounter Summary ---
Author Organization [employer] Address 75 [facility] 7t [place] [address] Care Team Providers Care Caretaker Name Role Phone Name, Nolan PADILLA Primary Care Provider [phone] Encounter Details Date Type Department Care Team ([facility] st Contact Info) Description 11/22/2024 Population Health Risk Score [facility] ([facility]) Department [address] [phone] Provider, Population Health Generic Social History Tobacco Use Types Packs/Day Years [...] Description 12/11/2024 3:30 PM EDT Medication Management [facility] MEDICINE [address] [place] [address] Elizabeth Perez, PharmD [address] [place] [address] 03/07/2025 10:15 AM EDT Office Visit [facility] MEDICINE [address] [place] [address] 39088 NameNolan MD [address] [place] [address] documented as of this encounter Visit Diagnoses Not on filedocumented in this encounter Additional Health Concerns Assessment Noted Time PHQ-9 Depression Total Score: 7 04/18/20 23 10:20 AM EDT documented as of this encounter Care Teams Caretaker Relationship Specialty Start Date End Date NameNolan MD [address] [place] [address] PCP - General Family Medicine 06/13/18 documented as of this encounter
[2024-12-04 08:47] VITALS: BP 100/64; PULSE 98; O2SAT 100; BMI 23.3
== END 2024-12-04 09:31 | disposition home or self-care (01) ==
LOC: HO.HGI 08:17
PROVIDERS: PCP Internal Medicine Geriatric Medicine; Visit Provider Nurse Practitioner Family
DX: R13.10 Dysphagia, unspecified (principal); R12 Heartburn; K59.09 Other constipation; E11.65 Type 2 diabetes mellitus with hyperglycemia; R13.14 Dysphagia, pharyngoesophageal phase
CPT/HCPCS: 99214

== ENCOUNTER 2024-12-20 08:08 | Outpatient (REF) | payer MEDICAID, SELFPAY ==
--- OUTSIDE RECORDS SUMMARY | 2024-12-20 09:04 | XMS_ITS | Encounter Summary ---
Author Organization [employer] Address [address] [facility] 7[address] [place] [address] Care Team Providers Care Mining Speculator Name Role Phone Name, Nolan PADILLA Primary Care Provider [phone] Reason for Visit * Reason Onset Date Comments Med Refill 07/03/2024 Encounter Details Date Type Department Care Team (Late st Contact Info) Description 07/03/2024 Telephone [facility] [address] [place], [place] [phone] Name, MD Nolan [address] [place] [address] Med Refill Social History Tobacco Use Types [...] 20 MG tablet To be sent to: [facility] - [place], [place] - [address] [place] [address] documented in this encounter Plan of Treatment Upcoming Encounters Date Type Department Care Team ([facility] st Contact Info) Description 03/07/2025 10:15 AM EDT Office Visit [facility] [address] [place] [address] Name, MD Nolan [address] [place] [address] documented as of this encounter Visit Diagnoses Not on filedocumented in this encounter Additional Health Concerns Assessment Noted Time PHQ-9 Depression Total Score: 7 04/18/20 10:20 AM EDT documented as of this encounter Care Teams Mining Speculator Relationship Specialty Start Date End Date NameNolan MD [address] [place] [address] PCP - General Family Medicine 06/13/18 documented as of this encounter
--- OUTSIDE RECORDS SUMMARY | 2024-12-20 09:04 | XMS_ITS | Encounter Summary ---
Author Organization [employer] Address [address] [place] [address] 7t [place] [address] Care Team Providers Care Plastic Straightening Roll Operator Name Role Phone Name, Nolan PADILLA Primary Care Provider [phone] Reason for Visit * Reason Comments Med Refill Encounter Details Date Type Department Care Team (Late st Contact Info) Description 04/25/2023 Refill [facility] [address] [place], [place] [phone] Marlys Romero FNP [address] [place] [address] Dept [place] [address] Type 2 diabetes mellitus without complication, 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 ([facility]) Social History Tobacco Use Types [...] Description 03/07/2025 10:15 AM EDT Office Visit [facility] [address] [place] [address] [phone] Name, MD Nolan [address] [place], [place] [phone] documented as of this encounter Visit Diagnoses Diagnosis Type 2 diabetes mellitus without complication, unspecified whether senior care insulin use ([facility]) documented in this encounter Additional Health Concerns Assessment Noted Time PHQ-9 Depression Total Score: 7 04/18/20 23 10:20 AM EDT documented as of this encounter Care Teams Plastic Straightening Roll Operator Relationship Specialty Start Date End Date Name, MD Nolan [address] [place] [address] PCP - General Family Medicine 06/13/18 documented as of this encounter
--- OUTSIDE RECORDS SUMMARY | 2024-12-20 09:04 | XMS_ITS | Encounter Summary ---
Author Organization [employer] Address [address] [facility] 7t [place] [address] Care Team Providers Care Belt Sander Stone Name Role Phone Name, Nolan PADILLA Primary Care Provider [phone] Reason for Visit * Reason Onset Date Comments Reschedule 10/04/2023 Encounter Details Date Type Department Care Team (Late st Contact Info) Description 10/04/2023 Telephone [facility] MEDICINE [address] [place], [place] [phone] Name, MD Nolan [address] [place] [address] Reschedule Social History Tobacco Use Types Packs/Day [...] daughter requesting r/s f/u appt from 10/06/23, 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 documented in this encounter Plan of Treatment Upcoming Encounters Date Type Department Care Team (Late st Contact Info) Description 03/07/2025 10:15 AM EDT Office Visit [facility] MEDICINE [address] [place] [address] Name, MD Nolan [address] [place] [address] documented as of this encounter Visit Diagnoses Not on filedocumented in this encounter Additional Health Concerns Assessment Noted Time PHQ-9 Depression Total Score: 7 04/18/20 23 10:20 AM EDT documented as of this encounter Care Teams Belt Sander Stone Relationship Specialty Start Date End Date Name, MD Nolan [address] [place] [address] PCP - General Family Medicine 06/13/18 documented as of this encounter
--- OUTSIDE RECORDS SUMMARY | 2024-12-20 09:04 | XMS_ITS | Encounter Summary ---
Author Organization [employer] [facility] Address [address] [facility] 7t [place] [address] Care Team Providers Care Activities Director Name Role Phone Name, Nolan PADILLA Primary Care Provider [phone] Encounter Details Date Type Department Care Team (Latest Contact Info) Description 09/07/2020 Abstract [facility] CONVERSIONS Dental, Provider, DDS Social [...] 10:15 AM EDT Office Visit [facility] MEDICINE [address] [place] [address] Name, MD Nolan [address] [place] [address] documented as of this encounter Visit Diagnoses Not on filedocumented in this encounter Care Teams Activities Director Relationship Specialty Start Date End Date Name, MD Nolan [address] [place] [address] PCP - General Family Medicine 06/13/18 documented as of this encounter
--- OUTSIDE RECORDS SUMMARY | 2024-12-20 09:04 | XMS_ITS | Encounter Summary ---
Author Organization [employer] Address [address] [facility] 7t [place] [address] Care Team Providers Care Coil Cleaner Name Role Phone Name, Nolan PADILLA Primary Care Provider [phone] Reason for Visit * Reason Onset Date Comments Nurse Triage 07/27/2023 Encounter Details Date Type Department Care Team (Late st Contact Info) Description 07/27/2023 Telephone [facility] MEDICINE [address] [place], [place] [phone] Name, MD Nolan [address] [place] [address] Nurse Triage Social History Tobacco Use Types [...] t he electric, gas, oil or water [employer] threatened to shut off services in your [...] - 07/27/2023 4:38 PM EST T/C to [phone] to daughter for below message, daughter verbally [...] acuity questions The caller accepted this outcome Danish Speaker documented in this encounter Plan of Treatment Upcoming Encounters Date Type Department Care Team (Late st Contact Info) Description 03/07/2025 10:15 AM EDT Office Visit [facility] MEDICINE [address] [place] [address] Name, MD Nolan [address] [place] [address] documented as of this encounter Visit Diagnoses Not on filedocumented in this encounter Additional Health Concerns Assessment Noted Time PHQ-9 Depression Total Score: 7 04/18/20 23 10:20 AM EDT documented as of this encounter Care Teams Coil Cleaner Relationship Specialty Start Date End Date Name, MD Nolan [address] [place] [address] PCP - General Family Medicine 06/13/18 documented as of this encounter
--- OUTSIDE RECORDS SUMMARY | 2024-12-20 09:04 | XMS_ITS | Encounter Summary ---
Author Organization [employer] Address [address] [facility] 7t [place] [address] Care Team Providers Care Toolmaker Name Role Phone Name, Nolan PADILLA Primary Care Provider [phone] Reason for Visit * Reason Comments Med Refill Encounter Details Date Type Department Care Team (Late st Contact Info) Description 09/21/2023 Refill [facility] [address] [place], [place] [phone] Name, MD Nolan [address] [facility] [place] [address] Hypertension, unspecified type Social History Tobacco Use [...] 10:15 AM EDT Office Visit [facility] MEDICINE [address] [place] [address] Name, MD Nolan [address] [place] [address] documented as of this encounter Visit Diagnoses Diagnosis Hypertension, unspecified type documented in this encounter Additional Health Concerns Assessment Noted Time PHQ-9 Depression Total Score: 7 04/18/20 23 10:20 AM EDT documented as of this encounter Care Teams Toolmaker Relationship Specialty Start Date End Date Name, MD Nolan [address] [place] [address] PCP - General Family Medicine 06/13/18 documented as of this encounter
--- OUTSIDE RECORDS SUMMARY | 2024-12-20 09:05 | XMS_ITS | Encounter Summary ---
Author Organization [employer] Address [address] [facility] 7t [place] [address] Care Team Providers Care Medical Sales Specialist Name Role Phone Name, Nolan PADILLA Primary Care Provider [phone] Reason for Visit * Reason Comments Med Refill Encounter Details Date Type Department Care Team ([facility] st Contact Info) Description 08/23/2024 Refill [facility] MED & PED[facility] [address] [place], [place] [phone] Justyna Manuel MD [address] [place], [place] [phone] Depression, unspecified depression type; Diabetes mellitus type [...] Office Visit [facility] MEDICINE [address] [place] [address] Name, MD Nolan [address] [place] [address] documented as of this encounter Visit Diagnoses Diagnosis Depression, unspecified depression type Diabetes mellitus type 2 in nonobese (CMS/[facility]) Type II or unspecified type diabetes mellitus without mention of complication, not stated as uncontrolled documented in this encounter Additional Health Concerns Assessment Noted Time PHQ-9 Depression Total Score: 7 04/18/20 23 10:20 AM EDT documented as of this encounter Care Teams Medical Sales Specialist Relationship Specialty Start Date End Date Name, MD Nolan [address] [place] [phone] PCP - General Family Medicine 06/13/18 documented as of this encounter
--- OUTSIDE RECORDS SUMMARY | 2024-12-20 09:05 | XMS_ITS | Encounter Summary ---
Author Organization [employer] Address [address] [facility] 7t [place] [address] Care Team Providers Care Food Mobile Driver Name Role Phone Name, Nolan PADILLA Primary Care Provider [phone] Reason for Visit * Reason Comments Med Refill Encounter Details Date Type Department Care Team (Late st Contact Info) Description 08/23/2024 Refill [facility] MED & PEDS [address] [place], [place] [phone] Name, MD Nolan [address] [facility] [place] [address] Diabetic polyneuropathy associated with type 2 diabetes [...] Description 03/07/2025 10:15 AM EDT Office Visit [facility] MEDICINE [address] [place] [phone] NameNolan MD [address] [place] [address] documented as of this encounter Visit Diagnoses Diagnosis Diabetic polyneuropathy associated with type 2 diabetes mellitus ([facility]) documented in this encounter Additional Health Concerns Assessment Noted Time PHQ-9 Depression Total Score: 7 04/18/20 23 10:20 AM EDT documented as of this encounter Care Teams Food Mobile Driver Relationship Specialty Start Date End Date Nolan Blevins MD [address] [place] [address] PCP - General Family Medicine 06/13/18 documented as of this encounter
--- OUTSIDE RECORDS SUMMARY | 2024-12-20 09:05 | XMS_ITS | Encounter Summary ---
Author Organization [employer] Address [address] [facility] 7t [place] [address] Care Team Providers Care Regional Sales Director Name Role Phone Name, Nolan PADILLA Primary Care Provider [phone] Reason for Visit * Reason Comments Med Refill Encounter Details Date Type Department Care Team (Late st Contact Info) Description 12/14/2024 Refill [facility] MED & PEDS [address] [place], [place] [phone] Name, MD Nolan [address] [facility] [place] [address] Depression, unspecified depression type Social History Tobacco [...] Description 03/07/2025 10:15 AM EDT Office Visit [facility] MEDICINE [address] [place] [address] Name, MD Nolan [address] [place] [address] documented as of this encounter Visit Diagnoses Diagnosis Depression, unspecified depression type documented in this encounter Additional Health Concerns Assessment Noted Time PHQ-9 Depression Total Score: 7 04/18/20 23 10:20 AM EDT documented as of this encounter Care Teams Regional Sales Director Relationship Specialty Start Date End Date Name, MD Nolan [address] [place] [address] PCP - General Family Medicine 06/13/18 documented as of this encounter
--- OUTSIDE RECORDS SUMMARY | 2024-12-20 09:05 | XMS_ITS | Clinical Summary ---
Author Organization [employer] Address [address] [place] [address] Care Team Providers Care Cigarette Roller Name Role Phone Name, Nolan PADILLA Primary Care Provider [phone] Allergies Active Allergy Reactions Criticality Noted Date [...] 023 Active ergocalciferol (Vitamin D2) 1.25 MG (23010 UT) capsule TAKE 1 CAPSULE BY MOUTH [...] complication, with long-term current use of insulin [place] TEST BLOOD SUGAR ONCE DAILY 50 strip 11 024 Active aspirin (Aspirin Adult Low Strength) 81 MG EC tabletIndication s:Hypertension, unspecified type Take 1 tablet (81 mg) by mouth in the morning. 90 tablet 3 024 Active TRUEplus Lancets 33G miscIndications: Type 2 diabetes mellitus with other specified complication, with long-term current use of insulin ([facility]) TEST BLOOD SUGAR EVERY DAY DIRECTED 100 each 1 024 Active Lantus SoloStar 100 UNIT/ML penIndications:T ype 2 diabetes mellitus with other specified complication, with long-term current use of insulin ([facility] Inject 30 Units under the skin at bedtime. 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 2 diabetes mellitus ([facility]) ([facility] TAKE 1 TABLET BY MOUTH EVERY MORNING 30 tablet 11 025 Active atorvastatin (Lipitor) 20 MG tabletIndication s:Diabetes mellitus type 2 in nonobese ([facility]) TAKE 1 TABLET BY MOUTH [...] polyneuropathy associated with type 2 diabetes mellitus ([facility]/HCC) TAKE 1 CAPSULE BY MOUTH AT BEDTIME 30 capsule 025 Active Alcohol Swabs (Alcohol Prep) 70 % padsIndications: Controlled diabetes mellitus type 2 with complications, unspecified whether intermediate insulin use (CMS/HCC) USE DIRECTED THREE TIMES [...] mellitus type 2 with 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 PLAN: 1. Follow up with [facility]: Not recommended for follow-up 2. Patient [...] Other Major depressive disorder, recurrent episode, mild ([facility]/HCC) UMANG (generalized anxiety disorder) Patient ready to address current needs Yes Strengths include support from daughter, willing to seek services. PLAN: 1. Follow up with [facility]: Not recommended for follow-up 2. Patient goal is to engage in services 3. Behavioral Recommendations a. Ind. Therpay b. MEd. Management c. Use of coping skills provided. Cobalamin deficiency 06/21/2018 Type 2 diabetes mellitus 06/21/2018 Vitamin D deficiency 06/21/2018 Mood disorder 01/10/2018 Noncompliance with treatment 07/05/2017 Hypertension 10/31/2013 Encounters Date Type Department Care Team Description 12/14/2024 Refill [facility] [address] [place] [address] Nolan Blevins MD Depression, unspecified depression type 12/12/2024 Refill [facility] [address] [place] [address] Cindy Lainez DO Depression, unspecified depression type 12/11/2024 Telephone [facility] [address] [place] [address] Elizabeth Perez PharmD 12/04/2024 Orders Only GENERIC EXTERNAL DATA DEPARTMENT Provider, Generic External Data 11/26/2024 Telephone [facility] [address] [place] [address] Heather Smith MA may recalls 11/22/2024 Population Health Risk Score [facility] ([facility]) Department [address] [place] [phone] Provider, Population Health Generic 11/21/2024 Refill [facility] [address] [place] [address] Nolan Blevins MD Diabetic polyneuropathy associated with type 2 diabetes mellitus ([facility]/HCC); Controlled diabetes mellitus type 2 with complications, unspecified whether intermediate insulin use ([facility]); Mood disorder (CMS/HCC) 11/21/2024 Refill [facility] [address] [place] [address] Monik Deshpande NP Mood disorder (CMS/HCC) 11/12/2024 Telephone [facility] [address] [place] [address] Name, MD Nolan 11/12/2024 Orders Only GENERIC EXTERNAL DATA DEPARTMENT Provider, Generic External Data 11/08/2024 Refill [facility] [address] [place] [address] NameNolan MD 10/22/2024 Refill [facility] [address] [place], [place] [phone] Justyna Manuel MD Diabetes mellitus type 2 in nonobese ([facility]); Depression, unspecified depression type; Diabetic polyneuropathy associated with type 2 diabetes mellitus ([facility]) 10/12/2024 Refill [facility] [address] [place], [place] [phone] Name, MD Nolan Proteinuria due to type 2 diabetes mellitus ([facility]) ([facility]) from Last 3 Months Immunizations [...] Description 03/07/2025 10:15 AM EDT Office Visit [facility] [address] [place] [phone] Name, MD Nolan [address] [place] [address] Health Maintenance Due Date Last Done Comments [...] EDT) Vitamin D, 25-OH, D2 21 ng/mL [facility] Comment:This test was develo ped and its analytical performancecharacteristics have been determined by [employer] [place], [place]. It hasnot been cleared or approved by the U.S. Food and DrugAdministration. This assay has been validated pursuantto the CLIA regulations and is used for clinicalpurposes.THIS TEST WAS PERFORMED AT:[employer] [id number] [place] [address]NHYXRZUROSALIND DENG MD,PHD Vitamin D, 25-OH, D3 12 ng/mL [facility] Comment:This test was develo ped and its analytical performancecharacteristics have been determined by [employer] [place], [place]. It hasnot been cleared or approved by the U.S. Food and DrugAdministration. This assay has been validated pursuantto the CLIA regulations and is used for clinicalpurposes. Vitamin D, 25-OH, Total 33 30 - 100 ng/mL [facility] Comment:Vitamin D, 25-Hydrox y reports concentrations [...] = 30 ng/mL.For additional information, please refer [email or web address]/faq/PGW411(This link is being provided for informational/educational purposes only.) 12/04/2024 10:0 0 AM EDT 12/04/2024 10:00 AM EDT us Generic External Data Provider LAB BLOOD ORDERAB LES Final Result Performing Organization Address City/[facility]/ZIP Co de Phone Number [facility] [address] [place] [address] [phone] * Vitamin B12 (Cobalamin) and Folate Panel, Serum (12/04/2024 10:00 AM EDT) Vitamin B12 392 200 - 900 pg/mL [facility] Comment:NORMAL 200-900 PG/ML INDETERMINATE 160-199 PG/ML DEFICIENT < 160 PG/ML Folate 5.9 > or = 4.0 ng/mL [facility] Comment:Reference Values:> o r = 4.0 ng/mL< 4.0 ng/mL suggests folate deficiency Methotrexate, aminopterin and folinic acid(leucovorin) are chemotherapeutic agents whose molecularstructures are similar to folate; therefore, the Architectfolate assay cannot be used for patients using these drugs. 12/04/2024 10:0 0 AM EDT 12/04/2024 10:00 AM EDT Generic External Data Provider LAB BLOOD ORDERAB LES Final Result Performing Organization Address [facility]/ZIP Co de Phone Number [facility] [address] [place] [address] [phone] * TSH with Reflex to Free T4 (12/04/2024 10:00 AM EDT) TSH reflex Free T4 1.37 0.32 - 4.0 uIU/mL [facility] 12/04/2024 10:0 0 AM EDT 12/04/2024 10:00 AM EDT Generic External Data Provider LAB BLOOD ORDERAB LES Final Result Performing Organization Address [facility] Co de Phone Number [facility] [address] [place] [phone] * Tissue Transglutaminase Antibody, IgA (12/04/2024 10:00 AM EDT) Transglutaminase IgA <1.0 U/mL [facility] Comment:Value Interpretation ----- <15.0 Antibody not detected> or = 15.0 Antibody detectedTHIS TEST WAS PERFORMED AT:[employer] [place] [id number] ALFREDO [place] MD 12/04/2024 10:0 0 AM EDT 12/04/2024 10:00 AM EDT Generic External Data Provider LAB BLOOD ORDERAB LES Final Result Performing Organization Address [facility] Co de Phone Number [facility] [address] [place] [phone] * Lipase (12/04/2024 10:00 AM EDT) Lipase 26 8 - 78 U/L [facility] 12/04/2024 10:0 0 AM EDT 12/04/2024 10:00 AM EDT Generic External Data Provider LAB BLOOD ORDERAB LES Final Result Performing Organization Address [facility] Co de Phone Number [facility] [address] [place] [phone] * (ABNORMAL) Hepatic Function Panel (12/04/2024 10:00 AM EDT) Bilirubin, Total 0.2 0.0 - 1.0 mg/dL [facility] Bilirubin, Direct <0.2 0.0 - 0.5 mg/dL [facility] Aspartate Amino Transferase 19 5 - 31 U/L [facility] Comment:Slight Hemolysis.Int erpret result with caution. Alanine Aminotransferase 11 0 - 31 U/L [facility] Total Protein 7.7 6.5 - 8.0 g/dL [facility] Albumin Level 4.0 3.5 - 5.0 g/dL [facility] Alkaline Phosphatase 196(H) 39 - 117 U/L [facility] 12/04/2024 10:0 0 AM EDT 12/04/2024 10:00 AM EDT us Generic External Data Provider LAB BLOOD ORDERAB LES Final Result Performing Organization Address City/State/[facility] Co de Phone Number [facility] [address] [place] [phone] * (ABNORMAL) Basic Metabolic Panel (11/12/2024 1:51 PM EST) Pathologist [facility] Sodium 123(L) 135 - 145 mmol/L [facility] Potassium 4.5 3.3 - 5.1 mmol/L [facility] Chloride 96 96 - 108 mmol/L [facility] Carbon Dioxide 18(L) 22 - 29 mmol/L [facility] Anion Gap 14 12 - 20 [facility] Urea Nitrogen (BUN) 24(H) 9 - 16 mg/dL [facility] Creatinine, Serum 2.03(H) 0.5 - 1.4 mg/dL [facility] Estimated Glomerular Filt Rate 25 [facility] Comment:Chronic Kidney Disea se: Estimated GFR < 60 mL/min/[id number] Kidney Disease: Estimated GFR < 15 mL/min/1.73m2 Glucose 666(HH) 60 - 115 mg/dL [facility] Comment:Critical value for t est(s):GLUR Results called to and readback by:JUNE Stone Person calling:VERONIQUE Jones: 11/12/24Time:1459 Calcium 9.0 8.4 - 10.2 mg/dL [facility] 11/12/2024 1:51 PM EST 11/12/2024 1:51 PM EST us Generic External Data Provider LAB BLOOD ORDERAB LES Edited Result - Final [facility] [address] [place] [phone] * (ABNORMAL) POCT HGB A1C (08/22/2024 10:00 AM EST) Hemoglobin A1C 9.7(A) 4.0 - 6.0 % QC Media Lot # [id number] Lot# Expiration Date Blood 08/22/2024 10:0 0 AM EST us Nolan Name POINT OF CARE TEST ENTER/EDIT OR DERABLES Final Result * Lipid Panel, Standard (11/14/2023 10:26 AM EST) Triglycerides 126 <150 mg/dL [facility] Comment:Desirable Triglyceri de: less than 150 mg/dLBorderline High Triglyceride 150-199 mg/dLHigh Triglyceride: 200-499 mg/dLVery High Triglyceride: greater than or equal to 5OO mg/dL Cholesterol 149 <200 mg/dL [facility] Comment:Desirable Cholestero l: less than 200 mg/dLBorderline High Cholesterol: 200-239 mg/dLHigh Cholesterol: greater than 239 mg/dL LDL Cholesterol Calculated 76 <100 mg/dL [facility] Comment:Desirable LDL: less than 100 mg/dLNear Optimal/Above Optimal LDL: 110- 129 mg/dLBorderline High LDL: 130-159 mg/dLHigh LDL: 160-189 mg/dLVery High LDL: greater than or equal to 190 mg/dL HDL Cholesterol 48 >40 mg/dL [facility] Comment:Desirable HDL: great er than 40 mg/dL Note: This HDL assay may give artificially low results in patients with liver disease. Blood Venous blood specimen / Unknown 11/14/2023 10:26 AM EST 11/14/2023 2:10 PM EST Nolan Blevins MD LAB BLOOD ORDERABLES Final Resul t Performing Organization Address City/[facility]/ZIP Co de Phone Number [facility] [address] [place] [phone] * HEPATITIS C AB W/REFL TO HCV RNA, QN, PCR (11/13/2020 2:31 PM EST) HEPATITIS C ANTIBODY NON-REACT [place] NON-REACT [place] [facility] INDEX 0.01 <1.00 [facility] Comment: ?? HCV antibody was non-reactive. There is no laboratory ?? evidence of HCV infection. ?? In most cases, no further action is required. However, if recent HCV exposure is suspected, a test for HCV RNA (test code 28480) is suggested. ?? For additional information please refer to http://education.[employer]/faq/ELB26x1 (This link is being provided for informational/ educational purposes only.) ?? 11/13/2020 2:31 PM EST us Stefany Griffiths MD HISTORICAL/NON ORDERABLE LABS Final Result Performing Organization Address City/[facility] Co de Phone Number [facility] [address] * DIGITAL BILATERAL SCREEN 1 (06/22/2018 [...] Eye Exam (04/20/2012) Eye Exam Normal Normal [facility] External Provider HEALTH MAINTENANCE Final Result from Last 3 Months or Most Recently Relevant to Health Maintenance Insurance [employer] C3 Care Teams Cigarette Roller Relationship Specialty Start Date End Date Name, MD Nolan [address] [place] [address] PCP - General Family Medicine 06/13/18
[2024-12-20 10:10] LABS: Anion Gap 12 (12-20); Blood Urea Nitrogen 23 mg/dL (9-16); Carbon Dioxide 20 mmol/L (22-29); Chloride 104 mmol/L (96-108); Estimated Glomerular Filt Rate 35; Glucose Random 162 mg/dL (60-115); Sodium 131 mmol/L (135-145)
== END 2024-12-20 08:09 | disposition home or self-care (01) ==
LOC: HO.LAB 08:08
PROVIDERS: Absent Provider Internal Medicine Hypertension Specialist; PCP Internal Medicine Geriatric Medicine; Visit Provider Nurse Practitioner Family
DX: N18.32 Chronic kidney disease, stage 3b (principal); K59.09 Other constipation
CPT/HCPCS: 36415; 80048; 99212

== ENCOUNTER 2024-12-20 08:08 | Outpatient (AMB) | payer MEDICAID, SELFPAY ==
[2024-12-20 08:14] VITALS: BP 124/76; PULSE 88; O2SAT 99; BMI 23.2
--- NOTE | 2024-12-20 08:14 | MHC.OFFVIS ---
Vital Signs 12/20/24 08:14 Height 5 ft 3 in Weight 131 lb BMI 23.2 BP 124/76 Blood Pressure Location Rt brachial Position Sitting Pulse 88 Pulse Source Pulse Oximeter Pulse Oximetry (%) 99 Oxygen Delivery Method Room Air Intake Visit Reasons: 2 wks follow up Chronic constipation Intake Note: ESTABLISHED PATIENT for mgmt of Hx of constipation + esophagitis. Labs done. Chief Complaint; C/O persistence in sx since last visit. Pt denies any new sx but states that their sx have not improved at all. Pt seemed somewhat confused on their medication when asked. Originally stating that they were not taking the medication for their reflux but then switched to say that they were taking it. Black Mill Operator Required: Yes Black Mill Operator Services: Black Mill Operator Present Black Mill Operator Name: Dominick [id number] Information Interpreted: clinical only Accompanied by: Self / Same As Patient Allergies iron Allergy (Mild, Verified 12/20/24 08:14) UNKNOWN Iodinated Contrast Media [IV Dye, Iodine Containing] Allergy (Unknown, Verified 12/20/24 08:14) UNKNOWN iodine [IODINE] Allergy (Unknown, Verified 12/20/24 08:14) RASH seafood Allergy (Unknown, Verified 12/20/24 08:14) Unknown HPI HPI 2 wks follow up Chronic constipation: Details: LAST VISIT: Odynophagia Heartburn Chronic constipation Poorly controlled diabetes mellitus Dysphagia Plan Patient reports epigastric pain. Will order lipase, transglutaminase, vitamin-D, B12 and folate as well as liver panel. Patient is constipated will order thyroid study. Patient will start taking Nexium every morning half an hour before breakfast. Patient previously on pantoprazole unsure if she is taking it patient can also take famotidine at bedtime. Avoid dietary triggers and her pain a 5 per minimal 3 hours after meals discussed with patient. Constipation, will start her on senna. Increase fluid intake and activity to promote better bowel motility. Patient was if he should well is patient is really not participating much the visit. Patient's daughter and not knowing medications that patient is taking makes me little concerned. Will have then return and bring medications to see if any of the medication are causing symptoms. Patient would definitely benefit with community navigation nurse. Return in 2 weeks, stools patient's daughter is agreeable to plan of care and verbalizes understanding of instructions. She was given the opportunity to ask questions and all questions answered. ? Thank you for allowing me to participate in her care Orders Orders Lipase Today R10.9 Transglutaminase IgA Today R10.9 TSH reflex Free T4 Today K59.00 Vitamin B12 and Folate Today R19.7 Vitamin D 25-OH (D2 and D3) Today E55.9 Liver Panel Today R74.01 Medications New sennosides (Natural Senna Laxative) 17.2 mg (2 x 8.6 mg) PO BEDTIME 60 tabs 3RF constipation K59.00 esomeprazole magnesium (Nexium) 40 mg PO DAILY 30 caps 2RF K21.9 famotidine (Pepcid) 20 mg PO BEDTIME 30 tabs 3RF K21.9 Discontinued docusate sodium (Stool Softener) Discontinued Reason: Patient no longer taking 200 mg (2 x 100 mg) PO BEDTIME 180 caps 1RF pantoprazole Discontinued Reason: Patient no longer taking 40 mg PO QAM 30 days 30 tabs 11RF bisacodyl (Dulcolax (bisacodyl)) Discontinued Reason: Patient no longer taking 10 mg AL DAILY PRN 20 ea 2RF constipation polyethylene glycol 3350 (Miralax) Discontinued Reason: Patient no longer taking 17 grams PO DAILY 30 days 510 grams 6RF TODAY'S VISIT Patient is here today for follow-up and to discuss lab results. Patient is here today with her daughter. Patient reports to me that she is taking Nexium every morning half an hour before breakfast. Reports that symptoms improved. We have use paraffin plant sweater operator different then was use by medical logistics specialist. Daughter stated that she does not understand much injury but she was able to understand that the head of sales was not correct on few things that she said. Since last seen patient has been complying to taking medications. She is taking Nexium in the morning and Senokot at bedtime. No longer is having trouble swallowing or acid reflux. Patient denies any abdominal bloating. Currently she states that she is moving her bowels well. Patient's daughter reports that she did forget to take mother's medication and bring them with her for today. She will write herself note so she does not forget it to bring to the next visit. Patient denies any melena, hematochezia, unintentional weight loss or ribbon like stools. [facility] Medical History Dysphagia Anxiety disorder GERD (gastroesophageal reflux disease) Migraines Asthma On beta jordyn at home Elevated cholesterol HTN (hypertension) Smoker Diabetes Depression Heartburn Surgical History Hx of left knee surgery History of tubal ligation History of esophagogastroduodenoscopy (EGD) H/O colonoscopy Hx of cholecystectomy Social History Household Members: Family Housing: Apartment Alcohol intake: former Patient Tobacco Use Status: Current everyday Tobacco user Tobacco use type: Cigarette Cigarettes Per Day: 6 Second Hand Smoke Exposure: Yes service: No Current occupational status: disabled Review of Systems Const Denies weight gain and Denies weight loss ENT Reports no additional complaints, Denies dysphagia and Denies odynophagia Card Reports no additional complaints Resp Reports no additional complaints GI Denies abdominal pain, Denies belching, Denies melena, Denies bloating, Denies change in bowel habits, Reports constipation (Improved), Denies dysphagia, Denies excessive flatus, Denies dyspepsia, Reports heartburn (Improved), Denies diarrhea, Denies loose stools, Denies nausea, Denies odynophagia and Denies vomiting Reports no additional complaints Musc Reports no additional complaints Neuro Reports no additional complaints Psych Reports no additional complaints Endo Reports no additional complaints Physical Exam Vital Signs: Last Vital Signs Pulse 88 12/20/24 08:14 BP 124/76 12/20/24 08:14 Pulse Ox 99 12/20/24 08:14 Oxygen Delivery Method Room Air 12/20/24 08:14 BMI result Body Mass Index 23.2 Const General: healthy appearing, no acute distress and well developed Nutritional Appearance: well nourished Orientation/consciousness: patient oriented x3 Resp Effort & Inspection: normal respiratory effort, able to speak in complete sentences, no tracheal deviation and symmetric chest movement Auscultation: clear to auscultation bilaterally Cardio Rate: regular rate GI Inspection: Yes normal to inspection and No distended Palpation (GI): Soft to palpation, not firm, nontender and No hepatosplenomegaly present Auscultation: normal bowel sounds General: Yes no CVA tenderness Back/Spine/Pelvis Back: no CVA tenderness Skin General skin exam: elasticity normal, turgor normal and dry skin Neuro General: patient oriented x3 Psych Appearance: grossly normal Mental Status: mental status grossly normal Results Reviewed Results Reviewed: Laboratory Tests 12/04/24 10:00 Total Bilirubin 0.2 AST 19 ALT 11 Alkaline Phosphatase 196 H Lipase 26 Vitamin B12 392 25-OH Vitamin D Total 33 TSH 1.37 Tiss Transglutamin IgA <1.0 Assessment & Plan Assessment & Plan (1) Odynophagia: Code(s): R13.10 - Dysphagia, unspecified Category: Medical Plan: Reports resolved, no pain when swallowing (2) Heartburn: Code(s): R12 - Heartburn Category: Medical (3) Chronic constipation: Code(s): K59.09 - Other constipation Category: Medical (4) Poorly controlled diabetes mellitus: Code(s): E11.65 - Type 2 diabetes mellitus with hyperglycemia Category: Medical (5) Dysphagia: Code(s): R13.10 - Dysphagia, unspecified Qualifiers: Dysphagia type: pharyngoesophageal phase Qualified Code(s): R13.14 - Dysphagia, pharyngoesophageal phase Plan Patient denies any dyspepsia, dysphagia or odynophagia. Continue Nexium daily. Avoid dietary triggers and late night snacking. Patient will continue taking Senokot daily, increase fluid intake and activity to promote better bowel motility. Patient will return in 2 months to discuss going for colonoscopy. Patient is agreeable to this plan and verbalizes understanding of instructions. She was given the opportunity to ask questions and all questions answered. Thank you for allowing me to participate in her care Coding Level of Care Code Est Pt Level 4 (60097) Complex EM visit Add On G2211 Diagnoses Odynophagia R13.10 Heartburn R12 Chronic constipation K59.09 Poorly controlled diabetes mellitus E11.65 Pharyngoesophageal dysphagia R13.14 Dysphagia type: pharyngoesophageal phase Time Spent (min) 35 Comment 25 minutes spent with patient and additional 10 minutes spent reviewing her records
--- OUTSIDE RECORDS SUMMARY | 2024-12-20 08:15 | XMS_ITS | Encounter Summary ---
Author Organization [employer] Address [address] [facility] 7t [place] [address] Care Team Providers Care Service Or Work Dispatcher Chief Name Role Phone Name, Nolan PADILLA Primary Care Provider [phone] Reason for Visit * Reason Comments Med Refill Encounter Details Date Type Department Care Team (Late st Contact Info) Description 12/14/2024 Refill [facility] MED & PEDS [address] [place], [place] [phone] Name, MD Nolan [address] [facility] [place] [address] Depression, unspecified depression type Social History Tobacco Use Types Packs/Day [...] Care Team (Late st Contact Info) Description 03/07/2025 10:15 AM EDT Office Visit [facility] MED[facility]INE [address] [place] [address] Name, MD Nolan [address] [place] [address] documented as of this encounter Visit Diagnoses Diagnosis Depression, unspecified depression type documented in this encounter Additional Health Concerns Assessment Noted Time PHQ-9 Depression Total Score: 7 04/18/20 23 10:20 AM EDT documented as of this encounter Care Teams Service Or Work Dispatcher Chief Relationship Specialty Start Date End Date Name, MD Nolan [address] [place] [address] PCP - General Family Medicine 06/13/18 documented as of this encounter
--- OUTSIDE RECORDS SUMMARY | 2024-12-20 08:15 | XMS_ITS | Encounter Summary ---
Author Organization [employer] Address [address] [facility] 7t [place] [address] Care Team Providers Care Office Clinician Name Role Phone Name, Nolan PADILLA Primary Care Provider [phone] Reason for Visit * Reason Onset Date Comments Med Refill 07/03/2024 Encounter Details Date Type Department Care Team (Late st Contact Info) Description 07/03/2024 Telephone [facility] MEDICINE [address] [place], [place] [phone] Name, MD Nolan 230 [place] [address] Med Refill Social History Tobacco Use Types [...] 20 MG tablet To be sent to: [facility] - [place], [place] - [address] [place] [address] documented in this encounter Plan of Treatment Upcoming Encounters Date Type Department Care Team ([facility] st Contact Info) Description 03/07/2025 10:15 AM EDT Office Visit [facility] MEDICINE [address] [place] [address] Name, MD Nolan 230 [place] [address] documented as of this encounter Visit Diagnoses Not on filedocumented in this encounter Additional Health Concerns Assessment Noted Time PHQ-9 Depression Total Score: 7 04/18/20 10:20 AM EDT documented as of this encounter Care Teams Office Clinician Relationship Specialty Start Date End Date NameNolan MD 230 [place] [address] PCP - General Family Medicine 06/13/18 documented as of this encounter
--- OUTSIDE RECORDS SUMMARY | 2024-12-20 08:15 | XMS_ITS | Encounter Summary ---
Author Organization [facility] [facility] Address [address] [facility] 7t [place] [address] Care Team Providers Care Prawn Trawler Hand Name Role Phone Name, Nolan PADILLA Primary Care Provider [phone] Encounter Details Date Type Department Care Team (Latest Contact Info) Description 09/07/2020 Abstract [facility] CONVERSIONS Dental, Provider, DDS Social History Tobacco [...] Description 03/07/2025 10:15 AM EDT Office Visit [facility] MEDICINE [address] [place] [address] Name, MD Nolan [address] [place] [address] documented as of this encounter Visit Diagnoses Not on filedocumented in this encounter Care Teams Prawn Trawler Hand Relationship Specialty Start Date End Date Name, MD Nolan [address] [place] [address] PCP - General Family Medicine 06/13/18 documented as of this encounter
--- OUTSIDE RECORDS SUMMARY | 2024-12-20 08:15 | XMS_ITS | Encounter Summary ---
Author Organization [employer] Address [address] [facility] 7t [place] [address] Care Team Providers Care Rice Drier Name Role Phone Name, Nolan PADILLA Primary Care Provider [phone] Reason for Visit * Reason Comments Med Refill Encounter Details Date Type Department Care Team (Late st Contact Info) Description 09/21/2023 Refill [facility] MED & PEDS [address] [place], [place] [phone] Name, MD Nolan [address] [facility] [place] [address] Hypertension, unspecified type Social History Tobacco Use [...] Description 03/07/2025 10:15 AM EDT Office Visit [facility] MEDICINE [address] [place] [address] Name, MD Nolan [address] [place] [address] documented as of this encounter Visit Diagnoses Diagnosis Hypertension, unspecified type documented in this encounter Additional Health Concerns Assessment Noted Time PHQ-9 Depression Total Score: 7 04/18/20 23 10:20 AM EDT documented as of this encounter Care Teams Rice Drier Relationship Specialty Start Date End Date Name, MD Nolan [address] [place] [address] PCP - General Family Medicine 06/13/18 documented as of this encounter
--- OUTSIDE RECORDS SUMMARY | 2024-12-20 08:15 | XMS_ITS | Encounter Summary ---
Author Organization [employer] Address [address] [facility] 7t [place] [address] Care Team Providers Care Sprinkler Irrigation Equipment Mechanic Name Role Phone Name, Nolan PADILLA Primary Care Provider [phone] Reason for Visit * Reason Comments Med Refill Encounter Details Date Type Department Care Team (Late st Contact Info) Description 08/23/2024 Refill [facility] MED & PEDS [address] [place], [place] [phone] Name, MD Nolan [address] [place] [address] Diabetic polyneuropathy associated with type 2 diabetes [...] Description 03/07/2025 10:15 AM EDT Office Visit [facility] [address] [place] [address] NameNolan MD [address] [place] [address] documented as of this encounter Visit Diagnoses Diagnosis Diabetic polyneuropathy associated with type 2 diabetes mellitus ([facility]) documented in this encounter Additional Health Concerns Assessment Noted Time PHQ-9 Depression Total Score: 7 04/18/20 23 10:20 AM EDT documented as of this encounter Care Teams Sprinkler Irrigation Equipment Mechanic Relationship Specialty Start Date End Date Nolan Blevins MD [address] [place] [address] PCP - General Family Medicine 06/13/18 documented as of this encounter
--- OUTSIDE RECORDS SUMMARY | 2024-12-20 08:15 | XMS_ITS | Encounter Summary ---
Author Organization [employer] Address [address] [facility] 7t [place] [address] Care Team Providers Care Interior Design Assistant Name Role Phone Name, Nolan PADILLA Primary Care Provider [phone] Reason for Visit * Reason Onset Date Comments Nurse Triage 07/27/2023 Encounter Details Date Type Department Care Team (Late st Contact Info) Description 07/27/2023 Telephone [facility] MEDICINE [address] [place], [place] [phone] Name, MD Nolan [address] [place] [address] Nurse Triage Social History Tobacco Use Types [...] t he electric, gas, oil or water [employer] threatened to shut off services in your [...] - 07/27/2023 4:38 PM EST T/C to [phone] to daughter for below message, daughter verbally [...] acuity questions The caller accepted this outcome Arabic Speaker documented in this encounter Plan of Treatment Upcoming Encounters Date Type Department Care Team (Late st Contact Info) Description 03/07/2025 10:15 AM EDT Office Visit [facility] MEDICINE [address] [place] [address] Name, MD Nolan [address] [place] [address] documented as of this encounter Visit Diagnoses Not on filedocumented in this encounter Additional Health Concerns Assessment Noted Time PHQ-9 Depression Total Score: 7 04/18/20 23 10:20 AM EDT documented as of this encounter Care Teams Interior Design Assistant Relationship Specialty Start Date End Date Name, MD Nolan [address] [place] [address] PCP - General Family Medicine 06/13/18 documented as of this encounter
--- OUTSIDE RECORDS SUMMARY | 2024-12-20 08:15 | XMS_ITS | Encounter Summary ---
Author Organization [employer] Address [address] [facility] 7t [place] [address] Care Team Providers Care Lucerne Farmer Name Role Phone Name, Nolan PADILLA Primary Care Provider [phone] Reason for Visit * Reason Comments Med Refill Encounter Details Date Type Department Care Team ([facility] st Contact Info) Description 08/23/2024 Refill [facility] MED & PEDS [address] [place], [place] [phone] Justyna Manuel MD [address] [place], [place] [phone] Depression, unspecified depression type; Diabetes mellitus type [...] Description 03/07/2025 10:15 AM EDT Office Visit [facility] MEDICINE [address] [place] [address] Name, MD Nolan [address] [place] [address] documented as of this encounter Visit Diagnoses Diagnosis Depression, unspecified depression type Diabetes mellitus type 2 in nonobese (CMS/[facility]) Type II or unspecified type diabetes mellitus without mention of complication, not stated as uncontrolled documented in this encounter Additional Health Concerns Assessment Noted Time PHQ-9 Depression Total Score: 7 04/18/20 23 10:20 AM EDT documented as of this encounter Care Teams Lucerne Farmer Relationship Specialty Start Date End Date Name, MD Nolan [address] [place] [address] PCP - General Family Medicine 06/13/18 documented as of this encounter
--- OUTSIDE RECORDS SUMMARY | 2024-12-20 08:15 | XMS_ITS | Encounter Summary ---
Author Organization [employer] Address [address] [facility] 7t [place] [address] Care Team Providers Care Emergency Veterinary Technician Name Role Phone Name, Nolan PADILLA Primary Care Provider [phone] Reason for Visit * Reason Onset Date Comments Reschedule 10/04/2023 Encounter Details Date Type Department Care Team (Late st Contact Info) Description 10/04/2023 Telephone [facility] MEDICINE [address] [place], [place] [phone] Name, MD Nolan 230 [place] [address] Reschedule Social History Tobacco Use Types Packs/Day [...] daughter requesting r/s f/u appt from 10/06/23, contract writer 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 documented in this encounter Plan of Treatment Upcoming Encounters Date Type Department Care Team (Late st Contact Info) Description 03/07/2025 10:15 AM EDT Office Visit [facility] MEDICINE [address] [place] [address] Name, MD Nolan [address] [place] [address] documented as of this encounter Visit Diagnoses Not on filedocumented in this encounter Additional Health Concerns Assessment Noted Time PHQ-9 Depression Total Score: 7 04/18/20 23 10:20 AM EDT documented as of this encounter Care Teams Emergency Veterinary Technician Relationship Specialty Start Date End Date Name, MD Nolan [address] [place] [address] PCP - General Family Medicine 06/13/18 documented as of this encounter
--- OUTSIDE RECORDS SUMMARY | 2024-12-20 08:15 | XMS_ITS | Encounter Summary ---
Author Organization [employer] Address [address] [place] [address] 7t [place] [address] Care Team Providers Care Diet Aid Name Role Phone Name, Nolan PADILLA Primary Care Provider [phone] Reason for Visit * Reason Comments Med Refill Encounter Details Date Type Department Care Team (Late st Contact Info) Description 04/25/2023 Refill [facility]S [address] [place], [place] [phone] Marlys Romero FNP [address] [place] [address] Dept [place] [address] Type 2 diabetes mellitus without complication, unspecified whether bridal consultant insulin use ([facility]) Social History Tobacco Use Types Packs/Day Years [...] Description 03/07/2025 10:15 AM EDT Office Visit [facility] MEDICINE [address] [place] [phone] Name, MD Nolan [address] [place], [place] [phone] documented as of this encounter Visit Diagnoses Diagnosis Type 2 diabetes mellitus without complication, unspecified whether prison insulin use ([facility]) documented in this encounter Additional Health Concerns Assessment Noted Time PHQ-9 Depression Total Score: 7 04/18/20 23 10:20 AM EDT documented as of this encounter Care Teams Diet Aid Relationship Specialty Start Date End Date Name, MD Nolan [address] [place] [address] PCP - General Family Medicine 06/13/18 documented as of this encounter
--- OUTSIDE RECORDS SUMMARY | 2024-12-20 08:15 | XMS_ITS | Clinical Summary ---
Author Organization [employer] Address [address] [facility] 7[address] [place] [address] Care Team Providers Care Robotic Maintenance Technician Name Role Phone Name, Nolan PADILLA Primary Care Provider [phone] Allergies Active Allergy Reactions Criticality Noted Date [...] 023 Active ergocalciferol (Vitamin D2) 1.25 MG (76172 UT) capsule TAKE 1 CAPSULE BY MOUTH ONCE WEEKLY ON MONDAY MORNING 4 capsule 11 023 Active Blood Pressure kit Use once a day 1 kit 023 Active hydrOXYzine HCl (Atarax) 25 MG tablet Take 1 tablet (25 mg) by mouth every 8 (eight) hours if needed for itching or anxiety. 90 tablet 024 Active FREESTYLE LITE test stripIndications :Type 2 diabetes mellitus with other specified complication, with long-term current use of insulin ([facility]) TEST BLOOD SUGAR ONCE DAILY 50 strip 11 024 Active aspirin (Aspirin Adult Low Strength) 81 MG EC tabletIndication s:Hypertension, unspecified type Take 1 tablet (81 mg) by mouth in the morning. 90 tablet 3 024 Active TRUEplus Lancets 33G miscIndications: Type 2 diabetes mellitus with other specified complication, with long-term current use of insulin ([facility]) TEST BLOOD SUGAR EVERY DAY DIRECTED 100 each 1 024 Active Lantus SoloStar 100 UNIT/ML penIndications:T ype 2 diabetes mellitus with other specified complication, with long-term current use of insulin ([facility]) Inject 30 Units under the skin at bedtime. Decrease to 20 units once she starts on Trulicity 3 mL 11 024 Active docusate sodium (Colace) 100 MG capsule TAKE 2 TABLETS BY MOUTH EVERY DAY AT BEDTIME 024 Active pen needle 31G x 6 mm miscIndications: Type 2 diabetes mellitus with hyperglycemia, without long-term current use of insulin ([facility]) USE DIRECTED TO INJECT INSULIN 100 each 1 025 Active Jardiance 10 MGIndications:Pr oteinuria due to type 2 diabetes mellitus ([facility]) ([facility]) TAKE 1 TABLET BY MOUTH EVERY MORNING 30 tablet 11 025 Active atorvastatin (Lipitor) 20 MG tabletIndication s:Diabetes mellitus type 2 in nonobese ([facility]) TAKE 1 TABLET BY MOUTH AT BEDTIME 90 tablet 1 025 Active mirtazapine (Remeron) 7.5 MG tabletIndication s:Depression, unspecified depression type TAKE 1 TABLET BY MOUTH AT BEDTIME 30 tablet 1 025 Active Trulicity 0.75 MG/0.5ML solution auto-injector INJECT ONE PEN (=0.75MG) SUBCUTANEOUSLY ONCE A WEEK DIRECTED 2 mL 2 025 Active gabapentin (Neurontin) 100 MG capsuleIndicatio ns:Diabetic polyneuropathy associated with type 2 diabetes mellitus ([facility]) TAKE 1 CAPSULE BY MOUTH AT BEDTIME 30 capsule 025 Active Alcohol Swabs (Alcohol Prep) 70 % padsIndications: Controlled diabetes mellitus type 2 with complications, unspecified whether usp insulin use (CMS/HCC) USE DIRECTED THREE TIMES DAILY 100 each 11 025 Active benztropine (Cogentin) 0.5 MG tabletIndication s:Mood disorder (CMS/HCC) TAKE 1 TABLET BY MOUTH TWICE DAILY IN THE MORNING AND IN THE EVENING 60 tablet 1 025 Active senna (Senokot) 8.6 MG tablet Take 2 tablets by mouth at bedtime. 025 Active famotidine (Pepcid) 20 MG tablet Take 20 mg by mouth at bedtime. 025 Active esomeprazole (NexIUM) [address] capsule Take 40 mg by mouth in the morning. 025 Active metoprolol succinate XL (Toprol-XL) 50 MG 24 hr tabletIndication s:Depression, unspecified depression type TAKE 1 TABLET BY MOUTH EVERY MORNING 90 tablet 025 Active prazosin (Minipress) 2 MG capsuleIndicatio ns:Depression, unspecified depression type TAKE 1 CAPSULE BY MOUTH EVERY MORNING and TAKE 2 CAPSULES BY MOUTH EVERY DAY AT BEDTIME 90 capsule 1 025 Active FLUoxetine (PROzac) 10 MG capsuleIndicatio ns:Depression, unspecified depression type TAKE 1 CAPSULE BY MOUTH EVERY MORNING 30 capsule 1 025 Active haloperidol (Haldol) 5 MG tabletIndication s:Depression, unspecified depression type TAKE 1 TABLET BY MOUTH TWICE DAILY IN THE MORNING AND AT BEDTIME 60 tablet 1 025 Active pantoprazole (ProtoNix) 40 MG EC tablet TAKE 1 TABLET BY MOUTH EVERY MORNING (40 MINUTES BEFORE MEALS) 023 2024 Discontinued(A lternate therapy) Alcohol Swabs (Alcohol Prep) 70 % padsIndications: Controlled diabetes mellitus type 2 with complications, 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 If residual powder remains in glass add additional water; mix & drink until gone. Use twice weekly 024 2024 Discontinued(T herapy completed) prazosin (Minipress) 2 MG capsuleIndicatio ns:Depression, unspecified depression type TAKE 1 CAPSULE BY MOUTH EVERY MORNING and TAKE 2 CAPSULES BY MOUTH EVERY DAY AT BEDTIME 90 capsule 1 025 2024 Discontinued FLUoxetine (PROzac) 10 MG capsuleIndicatio ns:Depression, unspecified depression type TAKE 1 CAPSULE BY MOUTH EVERY MORNING 30 capsule 1 025 2024 Discontinued haloperidol (Haldol) 5 MG tabletIndication s:Depression, unspecified depression type TAKE 1 TABLET BY MOUTH TWICE DAILY IN THE MORNING AND AT BEDTIME 60 tablet 1 025 2024 Discontinued gabapentin (Neurontin) 100 MG capsuleIndicatio ns:Diabetic polyneuropathy [...] information should questions or concerns arise. Plan: Rtia will engage in effective coping mechanisms discussed. [...] seek services. PLAN: 1. Follow up with [facility]: Not recommended for follow-up 2. Patient goal [...] Other Major depressive disorder, recurrent episode, mild ([facility]/HCC) UMANG (generalized anxiety disorder) Patient ready to address current needs Yes Strengths include support from daughter, willing to seek services. PLAN: 1. Follow up with [facility]: Not recommended for follow-up 2. Patient goal is to engage in services 3. Behavioral Recommendations a. Ind. Therpay b. MEd. Management c. Use of coping skills provided. Cobalamin deficiency 06/21/2018 Type 2 diabetes mellitus 06/21/2018 Vitamin D deficiency 06/21/2018 Mood disorder 01/10/2018 Noncompliance with treatment 07/05/2017 Hypertension 10/31/2013 Encounters Date Type Department Care Team Description 12/14/2024 Refill [facility] [address] [place] [address] Nolan Blevins MD Depression, unspecified depression type 12/12/2024 Refill [facility] [address] [place] [address] Cindy Lainez DO Depression, unspecified depression type 12/11/2024 Telephone [facility] [address] [place] [address] Elizabeth Perez PharmD 12/04/2024 Orders Only GENERIC EXTERNAL DATA DEPARTMENT Provider, Generic External Data 11/26/2024 Telephone [facility] [address] [place] [address] Heather Smith MA may recalls 11/22/2024 Population Health Risk Score [facility] (C[facility]) Department [address] [place] [phone] Provider, Population Health Generic 11/21/2024 Refill [facility] [address] [place] [address] Nolan Blevins MD Diabetic polyneuropathy associated with type 2 diabetes mellitus ([facility]CC); Controlled diabetes mellitus type 2 with complications, unspecified whether usp insulin use ([facility]); Mood disorder (CMS/HCC) 11/21/2024 Refill [facility] [address] [place] [address] Monik Deshpande NP Mood disorder (CMS/HCC) 11/12/2024 Telephone [facility] [address] [place] [address] Name, MD Nolan 11/12/2024 Orders Only GENERIC EXTERNAL DATA DEPARTMENT Provider, Generic External Data 11/08/2024 Refill [facility] [address] [place] [address] NameNolan MD 10/22/2024 Refill [facility] [address] [place], [place] [phone] Justyna Manuel MD Diabetes mellitus type 2 in nonobese ([facility]); Depression, unspecified depression type; Diabetic polyneuropathy associated with type 2 diabetes mellitus ([facility]) 10/12/2024 Refill [facility] [address] [place], [place] [phone] Name, MD Nolan Proteinuria due to type 2 diabetes mellitus ([facility]) ([facility]) from Last 3 Months Immunizations Name Administration Dates Next Due Influenza injectable quadriv alent IIV4 with preservative 06/21/2018,05/29/2017,12/02/2015 Influenza injectable quadriv alent preservative free 07/25/2022,07/13/2021,09/02/2016,12/01 Influenza, IIV3, injectable 07/29/2011 Influenza, Split (incl. nargis fied surface antigen) 05/30/2013 Pfizer Covid-19 Vaccine 12+ 06/11/2021, Pneumococcal Polysaccharide PPSV23 12/02/2015, TD (adult), 2 [...] Description 03/07/2025 10:15 AM EDT Office Visit [facility] [address] [place] [phone] Name, MD Nloan [address] [place] [address] Health Maintenance Due Date Last Done Comments [...] Procedure Name Priority Date/Time Associated Diagnosis Comments VITAMIN D 25-OH (D2 AND D3) Routine 12/04/2024 10:00 AM EDT TISSUE TRANSGLUTAMINASE AB, IGA Routine 12/04/2024 10:00 AM EDT TSH W/REFLEX TO FT4 Routine 12/04/2024 1 0:00 AM EDT VITAMIN B12/FOLATE, SERUM PANEL Routine 12/04/2024 10:00 AM EDT LIPASE Routine 12/04/2024 10:00 AM EDT HEPATIC FUNCTION PANEL Routine 10:00 AM EDT BASIC METABOLIC PANEL Routine 11/12/2024 1:51 PM [...] Recently Relevant to Health Maintenance Results * VITAMIN D 25-OH (D2 AND D3) (12/04/2024 10:00 AM EDT) Vitamin D, 25-OH, D2 21 ng/mL [facility] Comment:This test was develo ped and its analytical performancecharacteristics have been determined by [employer] [place], [place]. It hasnot been cleared or approved by the U.S. Food and DrugAdministration. This assay has been validated pursuantto the CLIA regulations and is used for clinicalpurposes.THIS TEST WAS PERFORMED AT:[employer]/[id number] [place] [id number] DENG MD,PHD Vitamin D, 25-OH, D3 12 ng/mL [facility] Comment:This test was develo ped and its analytical performancecharacteristics have been determined by [employer] [place], [place]. It hasnot been cleared or approved by the U.S. Food and DrugAdministration. This assay has been validated pursuantto the CLIA regulations and is used for clinicalpurposes. Vitamin D, 25-OH, Total 33 30 - 100 ng/mL [facility] Comment:Vitamin D, 25-Hydrox y reports concentrations of twocommon forms, 25-OHD2 and 25-OHD3. 25-OHD3 indicatesboth endogenous production and supplementation.25-OHD2 is an indicator of exogenous sources such asdiet or supplementation. Therapy is based onmeasurement of Total 25-OHD, with levels <20 ng/mLindicative of Vitamin D deficiency, while levelsbetween 20 ng/mL and 30 ng/mL suggest insufficiency.Optimal levels are > or = 30 ng/mL.For additional information, please refer tohttp://[employer]/faq/FGS686(This link is being provided for informational/educational purposes only.) 12/04/2024 10:0 0 AM EDT 12/04/2024 10:00 AM EDT us Generic External Data Provider LAB BLOOD ORDERAB LES Final Result Performing Organization Address City/[facility]/ZIP Co de Phone Number [facility] [address] [place] [address] [phone] * Vitamin B12 (Cobalamin) and Folate Panel, Serum (12/04/2024 10:00 AM EDT) Vitamin B12 392 200 - 900 pg/mL [facility] Comment:NORMAL 200-900 PG/ML INDETERMINATE 160-199 PG/ML DEFICIENT < 160 PG/ML Folate 5.9 > or = 4.0 ng/mL [facility] Comment:Reference Values:> o r = 4.0 ng/mL< 4.0 ng/mL suggests folate deficiency Methotrexate, aminopterin and folinic acid(leucovorin) are chemotherapeutic agents whose molecularstructures are similar to folate; therefore, the Architectfolate assay cannot be used for patients using these drugs. 12/04/2024 10:0 0 AM EDT 12/04/2024 10:00 AM EDT Generic External Data Provider LAB BLOOD ORDERAB LES Final Result Performing Organization Address [place]/[facility]/ZIP Co de Phone Number [facility] [address] [place] [address] [phone] * TSH with Reflex to Free T4 (12/04/2024 10:00 AM EDT) TSH reflex Free T4 1.37 0.32 - 4.0 uIU/mL [facility] 12/04/2024 10:0 0 AM EDT 12/04/2024 10:00 AM EDT Generic External Data Provider LAB BLOOD ORDERAB LES Final Result Performing Organization Address [place]/[facility] Co de Phone Number [facility] [address] [place] [phone] * Tissue Transglutaminase Antibody, IgA (12/04/2024 10:00 AM EDT) Transglutaminase IgA <1.0 U/mL [facility] Comment:Value Interpretation ----- <15.0 Antibody not detected> or = 15.0 Antibody detectedTHIS TEST WAS PERFORMED AT:[employer] [place] [id number] ALFREDO WORTHINGTON MD 12/04/2024 10:0 0 AM EDT 12/04/2024 10:00 AM EDT Generic External Data Provider LAB BLOOD ORDERAB LES Final Result Performing Organization Address [facility] Co de Phone Number [facility] [address] [place] [phone] * Lipase (12/04/2024 10:00 AM EDT) Lipase 26 8 - 78 U/L [facility] 12/04/2024 10:0 0 AM EDT 12/04/2024 10:00 AM EDT Generic External Data Provider LAB BLOOD ORDERAB LES Final Result Performing Organization Address [place]/[facility] Co de Phone Number [facility] [address] [place] [phone] * (ABNORMAL) Hepatic Function Panel (12/04/2024 10:00 AM EDT) Bilirubin, Total 0.2 0.0 - 1.0 mg/dL [facility] Bilirubin, Direct <0.2 0.0 - 0.5 mg/dL [facility] Aspartate Amino Transferase 19 5 - 31 U/L [facility] Comment:Slight Hemolysis.Int erpret result with caution. Alanine Aminotransferase 11 0 - 31 U/L [facility] Total Protein 7.7 6.5 - 8.0 g/dL [facility] Albumin Level 4.0 3.5 - 5.0 g/dL [facility] Alkaline Phosphatase 196(H) 39 - 117 U/L [facility] 12/04/2024 10:0 0 AM EDT 12/04/2024 10:00 AM EDT us Generic External Data Provider LAB BLOOD ORDERAB LES Final Result Performing Organization Address City/State/[facility] Co de Phone Number [facility] [address] [place] [phone] * (ABNORMAL) Basic Metabolic Panel (11/12/2024 1:51 PM EST) Pathologist [facility] Sodium 123(L) 135 - 145 mmol/L [facility] Potassium 4.5 3.3 - 5.1 mmol/L [facility] Chloride 96 96 - 108 mmol/L [facility] Carbon Dioxide 18(L) 22 - 29 mmol/L [facility] Anion Gap 14 12 - 20 [facility] Urea Nitrogen (BUN) 24(H) 9 - 16 mg/dL [facility] Creatinine, Serum 2.03(H) 0.5 - 1.4 mg/dL [facility] Estimated Glomerular Filt Rate 25 [facility] Comment:Chronic Kidney Disea se: Estimated GFR < 60 mL/min/1.26y8Lnrddu Kidney Disease: Estimated GFR < 15 mL/min/1.73m2 Glucose 666(HH) 60 - 115 mg/dL [facility] Comment:Critical value for t est(s):GLUR Results called to and readback by:JUNE Stone Person calling:VERONIQUE Jones: 11/12/24Time:1459 Calcium 9.0 8.4 - 10.2 mg/dL [facility] 11/12/2024 1:51 PM EST 11/12/2024 1:51 PM EST us Generic External Data Provider LAB BLOOD ORDERAB LES Edited Result - Final [facility] [address] [place] [phone] * (ABNORMAL) POCT HGB A1C (08/22/2024 10:00 AM EST) Hemoglobin A1C 9.7(A) 4.0 - 6.0 % QC Media Lot # [id number] Lot# Expiration Date Blood 08/22/2024 10:0 0 AM EST us Nolan Name POINT OF CARE TEST ENTER/EDIT OR DERABLES Final Result * Lipid Panel, Standard (11/14/2023 10:26 AM EST) Triglycerides 126 <150 mg/dL [facility] Comment:Desirable Triglyceri de: less than 150 mg/dLBorderline High Triglyceride 150-199 mg/dLHigh Triglyceride: 200-499 mg/dLVery High Triglyceride: greater than or equal to 5OO mg/dL Cholesterol 149 <200 mg/dL [facility] Comment:Desirable Cholestero l: less than 200 mg/dLBorderline High Cholesterol: 200-239 mg/dLHigh Cholesterol: greater than 239 mg/dL LDL Cholesterol Calculated 76 <100 mg/dL [facility] Comment:Desirable LDL: less than 100 mg/dLNear Optimal/Above Optimal LDL: 110- 129 mg/dLBorderline High LDL: 130-159 mg/dLHigh LDL: 160-189 mg/dLVery High LDL: greater than or equal to 190 mg/dL HDL Cholesterol 48 >40 mg/dL [facility] Comment:Desirable HDL: great er than 40 mg/dL Note: This HDL assay may give artificially low results in patients with liver disease. Blood Venous blood specimen / Unknown 11/14/2023 10:26 AM EST 11/14/2023 2:10 PM EST Nolan Blevins MD LAB BLOOD ORDERABLES Final Resul t Performing Organization Address City/[facility]/ZIP Co de Phone Number [facility] [address] [place] [phone] * HEPATITIS C AB W/REFL TO HCV RNA, QN, PCR (11/13/2020 2:31 PM EST) HEPATITIS C ANTIBODY NON-REACT [place] NON-REACT [place] [facility] INDEX 0.01 <1.00 [facility] Comment: ?? HCV antibody was non-reactive. There is no laboratory ?? evidence of HCV infection. ?? In most cases, no further action is required. However, if recent HCV exposure is suspected, a test for HCV RNA (test code 67645) is suggested. ?? For additional information please refer to http://education.[employer]/faq/IVH49i4 (This link is being provided for informational/ educational purposes only.) ?? 11/13/2020 2:31 PM EST us Stefany Griffiths MD HISTORICAL/NON ORDERABLE LABS Final Result Performing Organization Address City/[facility] Co de Phone Number [facility] [address] * DIGITAL BILATERAL SCREEN 1 (06/22/2018 1:13 PM EDT) Anatomical Region Laterality Modality Breast Bilateral Mammography 06/22/2018 1:13 PM EDT Narrative 06/22/2018 3:19 PM EDT Refer to the Notes tab for result details [facility] Procedure: DIGITAL BILATERAL SCREEN 1 Procedure Note ProviderYesi MD - 12/03/2022 Refer to the Notes tab for result details [facility] Procedure: DIGITAL BILATERAL SCREEN 1 Salma Rider MD IMG BI PROCEDURES Final Result * Colonoscopy (03/13/2018) Colonoscopy Normal Normal Nolan Blevins MD HEALTH MAINTENANCE Final Result * Diabetes Eye Exam (04/20/2012) Eye Exam Normal Normal [facility] [employer] External Provider HEALTH MAINTENANCE Final Result from Last 3 Months or Most Recently Relevant to Health Maintenance Insurance [employer] Care Teams Robotic Maintenance Technician Relationship Specialty Start Date End Date Name, MD Nolan [address] [place] [address] PCP - General Family Medicine 06/13/18
== END 2024-12-20 08:43 | disposition home or self-care (01) ==
LOC: HO.HGI 08:09
PROVIDERS: PCP Internal Medicine Geriatric Medicine; Visit Provider Nurse Practitioner Family
DX: R13.10 Dysphagia, unspecified (principal); R12 Heartburn; K59.09 Other constipation; E11.65 Type 2 diabetes mellitus with hyperglycemia; R13.14 Dysphagia, pharyngoesophageal phase
CPT/HCPCS: 99214

== ENCOUNTER 2024-12-26 11:21 | Outpatient (AMB) | payer MEDICAID, SELFPAY ==
--- NOTE | 2024-12-26 11:27 | HO.NEPHOV ---
Vital Signs 12/26/24 11:28 Height 5 ft 3 in Weight 132 lb BMI 23.4 BP 118/72 Blood Pressure Location Lt brachial Position Sitting Pulse 72 Pulse Source Pulse Oximeter Pulse Oximetry (%) 98 Oxygen Delivery Method Room Air Intake Visit Reasons: 6 weeks fu/ Conf Assistant Infant Toddler Teacher Required: No Accompanied by: Other Relationship Allergies iron Allergy (Mild, Verified 12/26/24 11:31) UNKNOWN Iodinated Contrast Media [IV Dye, Iodine Containing] Allergy (Unknown, Verified 12/26/24 11:31) UNKNOWN iodine [IODINE] Allergy (Unknown, Verified 12/26/24 11:31) RASH seafood Allergy (Unknown, Verified 12/26/24 11:31) Unknown Medication List - Last Reconciled 12/26/24 by Torrey Patel MD alcohol swabs (Alcohol Prep Pads) pad topical TID aspirin 81 mg PO DAILY atorvastatin 20 mg PO BEDTIME benztropine 0.5 mg PO BID blood sugar diagnostic (FreeStyle Lite Strips) As directed dulaglutide (Trulicity) mg subcut QWEEK empagliflozin (Jardiance) 10 mg PO QAM ergocalciferol (vitamin D2) 1 cap PO GUERRA@0900 esomeprazole magnesium (Nexium) 40 mg PO DAILY famotidine (Pepcid) 20 mg PO BEDTIME fluoxetine 10 mg PO DAILY gabapentin 100 mg PO BEDTIME haloperidol 1 tab PO BID insulin glargine (Lantus Solostar U-100 Insulin) 20 units subcut QPM insulin syringe-needle U-100 (UltiCare) As directed lancets (TRUEplus Lancets) As directed losartan 50 mg PO QAM metoprolol succinate ER 50 mg PO DAILY mirtazapine 7.5 mg PO BEDTIME dzfdczxe-tzd-efnr-FA-vit K-lut 8 mg iron-400 mcg-50 mcg (Centrum Silver Women) 1 tab PO DAILY pen needle, diabetic As directed pen needle, diabetic (Easy Touch) As directed prazosin 4 mg PO BEDTIME sennosides (Natural Senna Laxative) 17.2 mg (2 x 8.6 mg) PO BEDTIME Do you need a note to return to daycare/school/sports/work: No HPI Comments Details: 59-year-old woman with a history of diabetes mellitus referred for chronic kidney disease. Baseline creatinine is around 1.0 mg/dL. Recently creatinine bumped up to 1.5. Last year the serum creatinine had bumped to 1. 9 and she had CAMPOS due to hypoperfusion. CAMPOS subsequently resolved She has had mild chronic hyponatremia. Recently potassium bumped up to 5.5 by the specimen was slightly hemolyzed. She also has persistent mild metabolic acidosis. Ongoing medical problems include longstanding diabetes mellitus. Overall blood sugar has been better controlled recently. History of hypertension. Blood pressure has been well controlled. Today she was accompanied by her daughter. Assistant Infant Toddler Teacher service was used. She smokes less than 10 cigarettes a day. No history of any alcohol abuse 06/20/24: continues with chronic mild hyponatremia potassium repeat on 05/30 normalized (4.5) continues with metabolic acidosis; lactate level normal. (on metformin). renal US results from 06/18 pending Creatinine has bumped from to 1.58 from 1.41 with last blood work: 02/06/24 0.96 03/08/24 Cr 1.63 05/20/24 1.41 05/30/24 1.58 Urine 05/30 mild protein (25), +glucose, negative for blood, leukocyte esterace, casts, WBC currently taking amlodipine 5mg daily, losartan 25mg daily, and metoprolol ER 50mg daily for BP control pt eating low sodium diet has not been restricting her oral free water to 1.2L daily, she will start this sugars are doing well still smoking, not ready to cut down no NSAIDs denies changes to OTC/prescribed medications since last visit 07/23/24 ;Denies any compliants;Off Metformin 08/27/24 ;No new issues 11/14/24 Accompanied by family Assistant Infant Toddler Teacher was used Blood sugar was 666 ! Drinks 3 to 5 cans of coca cola Has difficulty swallowing 12/26/24 :No new issues PFSH Medical History Dysphagia Anxiety disorder GERD (gastroesophageal reflux disease) Migraines Asthma On beta jordyn at home Elevated cholesterol HTN (hypertension) Smoker Diabetes Depression Heartburn Surgical History Hx of left knee surgery History of tubal ligation History of esophagogastroduodenoscopy (EGD) H/O colonoscopy Hx of cholecystectomy Social History Household Members: Family Housing: Apartment Alcohol intake: former Patient Tobacco Use Status: Current everyday Tobacco user Tobacco use type: Cigarette Cigarettes Per Day: 6 Second Hand Smoke Exposure: Yes service: No Current occupational status: disabled Physical Exam Vital Signs: Last Vital Signs Pulse 72 12/26/24 11:28 BP 118/72 12/26/24 11:28 Pulse Ox 98 12/26/24 11:28 Oxygen Delivery Method Room Air 12/26/24 11:28 BMI result Body Mass Index 23.4 Const General: comfortable; No acute distress Orientation/consciousness: patient oriented x3 Eyes General: appearance normal, both eyes and all related structures Visual Bui: normal visual bui by confrontation Neck Neck: Yes supple and Yes no JVD Resp Effort & Inspection: normal respiratory effort and respiratory effort not decreased Auscultation: rhonchi Cardio Palpation: no palpable S3 and no palpable S4 Heart sounds: no rubs GI Inspection: Yes normal to inspection Palpation (GI): Soft to palpation Percussion: Yes normal to percussion Auscultation: normal bowel sounds General: Yes no CVA tenderness Back/Spine/Pelvis Back: no CVA tenderness Skin General skin exam: no petechiae and no purpura Neuro General: patient oriented x3 and no focal motor deficits Extrem General: No edema Results Reviewed Nephrology Results: Hgb 11.9 g/dl (12.0-16.0) L 07/15/24 WBC 7.1 X10*3/uL (4.8-10.8) 07/15/24 Plt Count 295 X10*3/uL (160-400) 07/15/24 Sodium 131 mmol/L (135-145) L 12/20/24 Potassium 5.0 mmol/L (3.3-5.1) 12/20/24 Chloride 104 mmol/L (96-108) 12/20/24 Carbon Dioxide 20 mmol/L (22-29) L 12/20/24 BUN 23 mg/dL (9-16) H 12/20/24 Creatinine 1.51 mg/dL (0.5-1.4) H 12/20/24 Calcium 9.0 mg/dL (8.4-10.2) 12/20/24 Urine Protein Negative mg/dL (Neg-Trace) 07/15/24 Urine Creatinine 16.49 mg/dL 07/15/24 Assessment & Plan Assessment & Plan (1) CKD (chronic kidney disease): Comment: Most likely due to underlying diabetic kidney disease. Code(s): N18.9 - Chronic kidney disease, unspecified Category: Medical Qualifiers: Chronic kidney disease stage: stage 3 (moderate) Chronic kidney disease stage 3 subtype: stage 3b (GFR 30-44) Qualified Code(s): N18.32 - Chronic kidney disease, stage 3b Plan: Superimposed CAMPOS from hypoperfusion Cr is better NO evidence of obstruction -Probably has hypoperfusion (2) Diabetes: Comment: Goal A1c less than 7% Code(s): E11.9 - Type 2 diabetes mellitus without complications Category: Medical Qualifiers: Diabetes mellitus complication detail: with nephropathy Diabetes mellitus complication status: with kidney complications Diabetes mellitus long wall shear operator insulin use: with long wall shear operator use Diabetes mellitus type: type 2 Qualified Code(s): E11.21 - Type 2 diabetes mellitus with diabetic nephropathy; Z79.4 - FPC (current) use of insulin (3) Hyponatremia: Comment: Chronic and asymptomatic. Probably has decreased free water clearance secondary to use of SSRI. Hyperglycemia could be a contributing factor ( BS 604) Corrected Na is 131 Repeat Na is 131 Code(s): E87.1 - Hypo-osmolality and hyponatremia Category: Medical Plan: Limit water intake- including cola (4) Metabolic acidosis: Code(s): E87.20 - Acidosis, unspecified Category: Medical (5) Hyperkalemia: Code(s): E87.5 - Hyperkalemia Category: Medical Plan: Stay on Low K diet [facility] (6) Hypotension: Code(s): I95.9 - Hypotension, unspecified Category: Medical Plan: DC Amlodipine 5 mg and watch BP Plan Optimize blood sugar and blood pressure. Restrict oral free water intake to less than 1.2 L and watch serum sodium. Coding Level of Care Code Est Pt Level 4 (21777) Diagnoses Stage 3b chronic kidney disease N18.32 Chronic kidney disease stage: stage 3 (moderate) Chronic kidney disease stage 3 subtype: stage 3b (GFR 30-44) Type 2 diabetes mellitus with diabetic nephropathy, with long-term current use of insulin E11.21; Z79.4 Diabetes mellitus complication detail: with nephropathy Diabetes mellitus complication status: with kidney complications Diabetes mellitus long wall shear operator insulin use: with long wall shear operator use Diabetes mellitus type: type 2 Hyponatremia E87.1 Metabolic acidosis E87.20 Hyperkalemia E87.5 Hypotension I95.9
[2024-12-26 11:28] VITALS: BP 118/72; PULSE 72; O2SAT 98; BMI 23.4
--- OUTSIDE RECORDS SUMMARY | 2024-12-26 14:05 | XMS_ITS | Encounter Summary ---
Author Organization [employer] Address [address] [facility] 7t [place] [address] Care Team Providers Care Cow Washer Name Role Phone Name, Nolan PADILLA Primary Care Provider [phone] Reason for Visit * Reason Comments Med Refill Encounter Details Date Type Department Care Team (Late st Contact Info) Description 12/23/2024 Refill [facility] MED & PEDS [address] [place], [place] [phone] Name, MD Nolan [address] [facility] [place], [place] [phone] Depression, unspecified depression type; Diabetic polyneuropathy associated [...] 10:15 AM EDT Office Visit [facility] MEDICINE [address] [place] [phone] NameNolan MD [address] [place] [phone] documented as of this encounter Visit Diagnoses Diagnosis Depression, unspecified depression type Diabetic polyneuropathy associated with type 2 diabetes mellitus (CMS/HCC) documented in this encounter Additional Health Concerns Assessment Noted Time PHQ-9 Depression Total Score: 7 04/18/20 23 10:20 AM EDT documented as of this encounter Care Teams Cow Washer Relationship Specialty Start Date End Date NameNolan MD [address] [place] [phone] PCP - General Family Medicine 06/13/18 documented as of this encounter
--- OUTSIDE RECORDS SUMMARY | 2024-12-26 14:05 | XMS_ITS | Encounter Summary ---
Author Organization [employer] Address [address] [place] [address] 7t [place] [address] Care Team Providers Care Client Relation Specialist Name Role Phone Name, Nolan PADILLA Primary Care Provider [phone] Reason for Visit * Reason Comments Med Refill Encounter Details Date Type Department Care Team (Late st Contact Info) Description 04/25/2023 Refill [facility] MED & PEDS [address] [place], [place] [phone] Marlys Romero FNP [address] [place] [address] [place] [address] Type 2 diabetes mellitus without complication, unspecified whether intermediate card tender insulin use ([facility]) Social History Tobacco Use Types Packs/Day Years [...] Description 03/07/2025 10:15 AM EDT Office Visit [facility] MEDICINE [address] [place] [phone] Name, MD Nolan [address] [place], [place] [phone] documented as of this encounter Visit Diagnoses Diagnosis Type 2 diabetes mellitus without complication, unspecified whether assisted insulin use ([facility]) documented in this encounter Additional Health Concerns Assessment Noted Time PHQ-9 Depression Total Score: 7 04/18/20 23 10:20 AM EDT documented as of this encounter Care Teams Client Relation Specialist Relationship Specialty Start Date End Date Name, MD Nolan [address] [place] [address] PCP - General Family Medicine 06/13/18 documented as of this encounter
--- OUTSIDE RECORDS SUMMARY | 2024-12-26 14:05 | XMS_ITS | Encounter Summary ---
Author Organization [facility] Address [address] [facility] 7t [place] [address] Care Team Providers Care Bread Panner Name Role Phone Name, Nolan PADILLA Primary Care Provider [phone] Encounter Details Date Type Department Care Team (Latest Contact Info) Description 09/07/2020 Abstract [facility] CONVERSIONS Dental, Provider, DDS Social History [...] Description 03/07/2025 10:15 AM EDT Office Visit [facility] MEDICINE [address] [place] [address] Name, MD Nolan [address] [place] [address] documented as of this encounter Visit Diagnoses Not on filedocumented in this encounter Care Teams Bread Panner Relationship Specialty Start Date End Date Name, MD Nolan [address] [place] [address] PCP - General Family Medicine 06/13/18 documented as of this encounter
--- OUTSIDE RECORDS SUMMARY | 2024-12-26 14:06 | XMS_ITS | Encounter Summary ---
Author Organization [employer] Address [address] [facility] 7t [place] [address] Care Team Providers Care Mine Administrator Supervisor Name Role Phone Name, Nolan PADILLA Primary Care Provider [phone] Reason for Visit * Reason Onset Date Comments Med Refill 07/03/2024 Encounter Details Date Type Department Care Team (Late st Contact Info) Description 07/03/2024 Telephone [facility] MEDICINE [address] [place], [place] [phone] Name, MD Nolan [address] [place] [address] Med Refill Social History Tobacco Use Types [...] 20 MG tablet To be sent to: [facility] - [place], [place] - [address] [place] [address] documented in this encounter Plan of Treatment Upcoming Encounters Date Type Department Care Team ([facility] st Contact Info) Description 03/07/2025 10:15 AM EDT Office Visit [facility] [address] [place] [address] Name, MD Nolan [address] [place] [address] documented as of this encounter Visit Diagnoses Not on filedocumented in this encounter Additional Health Concerns Assessment Noted Time PHQ-9 Depression Total Score: 7 04/18/20 10:20 AM EDT documented as of this encounter Care Teams Mine Administrator Supervisor Relationship Specialty Start Date End Date NameNolan MD [address] [place] [address] PCP - General Family Medicine 06/13/18 documented as of this encounter
--- OUTSIDE RECORDS SUMMARY | 2024-12-26 14:06 | XMS_ITS | Encounter Summary ---
Author Organization [employer] Address [address] [facility] 7t [place] [address] Care Team Providers Care Monitoring Analyst Name Role Phone Name, Nolan PADILLA Primary Care Provider [phone] Reason for Visit * Reason Onset Date Comments Nurse Triage 07/27/2023 Encounter Details Date Type Department Care Team (Late st Contact Info) Description 07/27/[address] [facility] MEDICINE [address] [place], [place] [phone] Name, MD Nolan 230 [place] [address] Nurse Triage Social History Tobacco Use Types [...] t he electric, gas, oil or water [employer] threatened to shut off services in your [...] - 07/27/2023 4:38 PM EST T/C to [phone] to daughter for below message, daughter verbally [...] acuity questions The caller accepted this outcome Maltese Speaker documented in this encounter Plan of Treatment Upcoming Encounters Date Type Department Care Team (Late st Contact Info) Description 03/07/2025 10:15 AM EDT Office Visit [facility] MEDICINE [address] [place] [phone] Name, MD Nolan [address] [place] [address] documented as of this encounter Visit Diagnoses Not on filedocumented in this encounter Additional Health Concerns Assessment Noted Time PHQ-9 Depression Total Score: 7 04/18/20 23 10:20 AM EDT documented as of this encounter Care Teams Monitoring Analyst Relationship Specialty Start Date End Date Name, MD Nolan [address] [place] [address] PCP - General Family Medicine 06/13/18 documented as of this encounter
--- OUTSIDE RECORDS SUMMARY | 2024-12-26 14:06 | XMS_ITS | Encounter Summary ---
Author Organization [employer] Address 75 [facility] 7t [place] [address] Care Team Providers Care Retail Product Demo Specialist Name Role Phone Name, Nolan PADILLA Primary Care Provider [phone] Reason for Visit * Reason Comments Med Refill Encounter Details Date Type Department Care Team (Late st Contact Info) Description 08/23/2024 Refill [facility] MED & PEDS [address] [place], [place] [phone] Name, MD Nolan 230 [facility] [place] [address] Diabetic polyneuropathy associated with type 2 diabetes [...] 10:15 AM EDT Office Visit [facility] MEDICINE [address] [place] [address] NameNolan MD [address] [place] [address] documented as of this encounter Visit Diagnoses Diagnosis Diabetic polyneuropathy associated with type 2 diabetes mellitus ([facility]) documented in this encounter Additional Health Concerns Assessment Noted Time PHQ-9 Depression Total Score: 7 04/18/20 23 10:20 AM EDT documented as of this encounter Care Teams Retail Product Demo Specialist Relationship Specialty Start Date End Date Nolan Blevins MD [address] [place] [address] PCP - General Family Medicine 06/13/18 documented as of this encounter
--- OUTSIDE RECORDS SUMMARY | 2024-12-26 14:06 | XMS_ITS | Encounter Summary ---
Author Organization [employer] Address [address] [facility] 7t [place] [address] Care Team Providers Care Snaker Name Role Phone Name, Nolan PADILLA Primary Care Provider [phone] Reason for Visit * Reason Comments Med Refill Encounter Details Date Type Department Care Team (Late st Contact Info) Description 09/21/2023 Refill [facility] MED & PEDS [address] [place], [place] [phone] Name, MD Nolan [address] [facility] [place] [address] Hypertension, unspecified type Social History Tobacco Use [...] Description 03/07/2025 10:15 AM EDT Office Visit [facility] MEDICINE 230 [place] [address] Name, MD Nolan [address] [place] [address] documented as of this encounter Visit Diagnoses Diagnosis Hypertension, unspecified type documented in this encounter Additional Health Concerns Assessment Noted Time PHQ-9 Depression Total Score: 7 04/18/20 23 10:20 AM EDT documented as of this encounter Care Teams Snaker Relationship Specialty Start Date End Date Name, MD Nolan [address] [place] [address] PCP - General Family Medicine 06/13/18 documented as of this encounter
--- OUTSIDE RECORDS SUMMARY | 2024-12-26 14:06 | XMS_ITS | Encounter Summary ---
Author Organization [employer] Address [address] [facility] 7t [place] [address] Care Team Providers Care Stabber Name Role Phone Name, Nolan PADILLA Primary Care Provider [phone] Reason for Visit * Reason Onset Date Comments Reschedule 10/04/2023 Encounter Details Date Type Department Care Team (Late st Contact Info) Description 10/04/2023 Telephone [facility] MEDICINE 230 [place], [place] [phone] Name, MD Nolan [address] [place] [address] Reschedule Social History Tobacco Use Types Packs/Day [...] daughter requesting r/s f/u appt from 10/06/23, senior copywriter 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 documented in this encounter Plan of Treatment Upcoming Encounters Date Type Department Care Team (Late st Contact Info) Description 03/07/2025 10:15 AM EDT Office Visit [facility] MEDICINE [address] [place] [address] Name, MD Nolan [address] [place] [address] documented as of this encounter Visit Diagnoses Not on filedocumented in this encounter Additional Health Concerns Assessment Noted Time PHQ-9 Depression Total Score: 7 04/18/20 23 10:20 AM EDT documented as of this encounter Care Teams Stabber Relationship Specialty Start Date End Date Name, MD Nolan [address] [place] [address] PCP - General Family Medicine 06/13/18 documented as of this encounter
--- OUTSIDE RECORDS SUMMARY | 2024-12-26 14:06 | XMS_ITS | Encounter Summary ---
Author Organization [employer] Address [address] [facility] 7t [place] [address] Care Team Providers Care Select Banker Name Role Phone Name, Nolan PADILLA Primary Care Provider [phone] Reason for Visit * Reason Comments Med Refill Encounter Details Date Type Department Care Team ([facility] st Contact Info) Description 08/23/2024 Refill [facility] MED & PEDS [address] [place], [place] [phone] Justyna Manuel MD [address] [place], [place] [phone] Depression, unspecified depression type; Diabetes mellitus type [...] 03/07/2025 10:15 AM EDT Office Visit [facility] MEDICINE [address] [place] [address] Name, MD Nolan [address] [place] [address] documented as of this encounter Visit Diagnoses Diagnosis Depression, unspecified depression type Diabetes mellitus type 2 in nonobese (CMS/[facility]) Type II or unspecified type diabetes mellitus without mention of complication, not stated as uncontrolled documented in this encounter Additional Health Concerns Assessment Noted Time PHQ-9 Depression Total Score: 7 04/18/20 23 10:20 AM EDT documented as of this encounter Care Teams Select Banker Relationship Specialty Start Date End Date Name, MD Nolan [address] [place] [address] PCP - General Family Medicine 06/13/18 documented as of this encounter
--- OUTSIDE RECORDS SUMMARY | 2024-12-26 14:06 | XMS_ITS | Clinical Summary ---
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 90 tablet 3 024 Active TRUEplus Lancets 33G miscIndications: Type 2 diabetes mellitus with other specified complication, with long-term current use of insulin ([facility]) TEST BLOOD SUGAR EVERY DAY DIRECTED 100 each 1 024 Active Lantus SoloStar 100 UNIT/ML penIndications:T ype 2 diabetes mellitus with other specified complication, with long-term current use of insulin ([facility] Inject 30 Units under the skin at bedtime. Decrease to 20 units once she starts on Trulicity 3 mL 11 024 Active docusate sodium (Colace) 100 MG capsule TAKE 2 TABLETS BY MOUTH EVERY DAY AT BEDTIME 024 Active pen needle 31G x 6 mm miscIndications: Type 2 diabetes mellitus with hyperglycemia, without long-term current use of insulin ([facility] USE DIRECTED TO INJECT INSULIN 100 each 025 Active Jardiance 10 MGIndications:Pr oteinuria due to type 2 diabetes mellitus ([facility]) ([facility]) TAKE 1 TABLET BY MOUTH EVERY MORNING 30 tablet 025 Active atorvastatin (Lipitor) 20 MG tabletIndication s:Diabetes mellitus type 2 in nonobese ([facility]) TAKE 1 TABLET BY MOUTH AT BEDTIME 90 tablet 1 025 Active Trulicity 0.75 MG/0.5ML solution auto-injector INJECT ONE PEN (=0.75MG) SUBCUTANEOUSLY ONCE A WEEK DIRECTED 2 mL 2 025 Active Alcohol Swabs (Alcohol Prep) 70 % padsIndications: Controlled diabetes mellitus type 2 with complications, unspecified whether jail insulin use ([facility]) USE DIRECTED THREE TIMES DAILY 100 each [...] AT BEDTIME 30 tablet 1 025 Active gabapentin (Neurontin) 100 MG capsuleIndicatio ns:Diabetic polyneuropathy associated with type 2 diabetes mellitus (CMS/HCC) TAKE 1 CAPSULE BY MOUTH AT BEDTIME 30 capsule 1 025 Active pantoprazole (ProtoNix) 40 MG EC tablet TAKE 1 TABLET BY MOUTH EVERY MORNING (40 MINUTES BEFORE MEALS) 023 2024 Discontinued(A lternate therapy) metoprolol succinate XL (Toprol-XL) 50 MG 24 [...] BEDTIME 60 tablet 1 025 2024 Discontinued mirtazapine (Remeron) 7.5 MG tabletIndication s:Depression, unspecified depression type TAKE 1 TABLET BY MOUTH AT BEDTIME 30 tablet 1 025 2024 Discontinued gabapentin (Neurontin) [...] seek services. PLAN: 1. Follow up with [facility]: Not recommended for follow-up 2. Patient goal [...] seek services. PLAN: 1. Follow up with [facility]: Not recommended for follow-up 2. Patient goal is to engage in MH services 3. Behavioral Recommendations a. Ind. Therpay b. MEd. Management c. Use of coping skills provided. Cobalamin deficiency 06/21/2018 Type 2 diabetes mellitus 06/21/2018 Vitamin D deficiency 06/21/2018 Mood disorder 01/10/2018 Noncompliance with treatment 07/05/2017 Hypertension 10/31/2013 Encounters Date Type Department Care Team Description 12/23/2024 Refill [facility] [address] [place] [address] Nolan Blevins MD Depression, unspecified depression type; Diabetic polyneuropathy associated with type 2 diabetes mellitus ([facility]) 12/20/2024 Orders Only GENERIC EXTERNAL DATA DEPARTMENT Provider, Generic External Data 12/14/2024 Refill [facility] [address] [place] [address] Nolan Blevins MD Depression, unspecified depression type 12/12/2024 Refill [facility] [address] [place] [address] Cinyd Lainez DO Depression, unspecified depression type 12/11/2024 Telephone [facility] [address] [place] [address] Elizabeth Perez, Terry 12/04/2024 Orders Only GENERIC EXTERNAL DATA DEPARTMENT Provider, Generic External Data 11/26/2024 Telephone [facility] [address] [place] [address] Heather Smith MA may recalls 11/22/2024 Population Health Risk Score [facility] ([facility]) Department [address] [place] [phone] Provider, Population Health Generic 11/21/2024 Refill [facility] [address] [place] [address] Nolan Blevins MD Diabetic polyneuropathy associated with type 2 diabetes mellitus ([facility]/H[facility]); Controlled diabetes mellitus type 2 with complications, 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 ([facility]); Mood disorder ([facility]) 11/21/2024 Refill [facility] [address] [place] [address] Monik Deshpande NP Mood disorder ([facility]) 11/12/2024 Telephone [facility] [address] [place] [address] Name, MD Nolan 11/12/2024 Orders Only GENERIC EXTERNAL DATA DEPARTMENT Provider, Generic External Data 11/08/2024 Refill [facility] [address] [place] [address] Nolan Blevins MD 10/22/2024 Refill [facility] [address] [place], [place] [phone] Justyna Manuel MD Diabetes mellitus type 2 in nonobese ([facility]); Depression, unspecified depression type; Diabetic polyneuropathy associated with type 2 diabetes mellitus ([facility]) 10/12/2024 Refill [facility] [address], [place] [phone] Name, MD Nolan Proteinuria due to type 2 diabetes mellitus ([facility]) ([facility]) from Last 3 Months Immunizations Name Administration [...] kg (149 lb 9.6 oz) 08/22/2024 9:47 AM EST Height 157.5 cm (5' 2 ) 05/20/2024 9:55 AM EDT Body Mass Index 27.36 05/20/2024 9:55 AM EDT Plan of Treatment Upcoming Encounters Date Type Department Care Team (Late st Contact Info) Description 03/07/2025 10:15 AM EDT Office Visit [facility] [address] [place] [phone] Name, MD Nolan [address] [place] [address] Health Maintenance Due Date Last Done Comments [...] Associated Diagnosis Comments BASIC METABOLIC PANEL Routine 12/20/2024 8:57 AM EDT VITAMIN D 25-OH (D2 AND D3) Routine [...] complication, with long-term current use of insulin ([facility]) LIPID PANEL, STANDARD Routine 11/14/2023 10:26 AM [...] Maintenance Results * (ABNORMAL) Basic Metabolic Panel (12/20/2024 8:57 AM EDT) Only the most recent of2 resultswithin the time period is included. Sodium 131(L) 135 - 145 mmol/L [facility] Potassium 5.0 3.3 - 5.1 mmol/L [facility] Chloride 104 96 - 108 mmol/L [facility] Carbon Dioxide 20(L) 22 - 29 mmol/L [facility] Anion Gap 12 12 - 20 [facility] Urea Nitrogen (BUN) 23(H) 9 - 16 mg/dL [facility] Creatinine, Serum 1.51(H) 0.5 - 1.4 mg/dL [facility] Estimated Glomerular Filt Rate 35 [facility] Comment:Chronic Kidney Disea se: Estimated GFR < 60 mL/min/1.72i4Lpxozm Kidney Disease: Estimated GFR < 15 mL/min/1.73m2 Glucose 162(H) 60 - 115 mg/dL [facility] Calcium 9.0 8.4 - 10.2 mg/dL [facility] 12/20/2024 8:57 AM EDT 12/20/2024 9:01 AM EDT us Generic External Data Provider LAB BLOOD ORDERAB LES Final Result [facility] [address] [place] [address] [phone] * VITAMIN D 25-OH (D2 AND D3) (12/04/2024 10:00 AM EDT) Vitamin D, 25-OH, D2 21 ng/mL [facility] Comment:This test was develo ped and its analytical performancecharacteristics have been determined by [facility] [employer] [place], [place]. It hasnot been cleared or approved by the U.S. Food and DrugAdministration. This assay has been validated pursuantto the CLIA regulations and is used for clinicalpurposes.THIS TEST WAS PERFORMED AT:[employer]/[id number] [place] [id number] DENG MD,PHD Vitamin D, 25-OH, D3 12 ng/mL [facility] Comment:This test was develo ped and its analytical performancecharacteristics have been determined by [facility] [employer] [place], [place]. It hasnot been cleared or approved by the U.S. Food and DrugAdministration. This assay has been validated pursuantto the CLIA regulations and is used for clinicalpurposes. Vitamin D, 25-OH, Total 33 30 - 100 ng/mL [facility] Comment:Vitamin D, 25-Hydrox y reports [...] = 30 ng/mL.For additional information, please refer tohttp://education.[employer]/faq/AMK203(This link is being provided for informational/educational purposes only.) 12/04/2024 10:0 0 AM EDT 12/04/2024 10:00 AM EDT us Generic External Data Provider LAB BLOOD ORDERAB LES Final Result Performing Organization Address City/[facility]/ZIP Co de Phone Number [facility] [address] [place] [phone] * Vitamin B12 (Cobalamin) and Folate Panel, Serum (12/04/2024 10:00 AM EDT) Vitamin B12 392 200 - 900 pg/mL [facility] Comment:NORMAL 200-900 PG/ML INDETERMINATE 160-199 PG/ML DEFICIENT < 160 PG/ML Folate 5.9 > or = 4.0 ng/mL [facility] Comment:Reference Values:> o r = 4.0 ng/mL< 4.0 ng/mL suggests folate deficiency Methotrexate, aminopterin and folinic acid(leucovorin) are chemotherapeutic agents whose molecularstructures are similar to folate; therefore, the Architectfolate assay cannot be used for patients using these drugs. 12/04/2024 10:0 0 AM EDT 12/04/2024 10:00 AM EDT us Generic External Data Provider LAB BLOOD ORDERAB LES Final Result Performing Organization Address [facility] Co de Phone Number [facility] [address] [place] [phone] * TSH with Reflex to Free T4 (12/04/2024 10:00 AM EDT) TSH reflex Free T4 1.37 0.32 - 4.0 uIU/mL [facility] 12/04/2024 10:0 0 AM EDT 12/04/2024 10:00 AM EDT us Generic External Data Provider LAB BLOOD ORDERAB LES Final Result Performing Organization Address City/[facility]/ZIP Co de Phone Number [facility] [address] [place] [phone] * Tissue Transglutaminase Antibody, IgA (12/04/2024 10:00 AM EDT) Pathologist [facility] Transglutaminase IgA <1.0 U/mL [facility] Comment:Value Interpretation ----- <15.0 Antibody not detected> or = 15.0 Antibody detectedTHIS TEST WAS PERFORMED AT:[facility] [place] [id number] ALFREDO WORTHINGTON MD 12/04/2024 10:0 0 AM EDT 12/04/2024 10:00 AM EDT Generic External Data Provider LAB BLOOD ORDERAB LES Final Result Performing Organization Address [facility]/ZIP Co de Phone Number [facility] [address] [place] [phone] * Lipase (12/04/2024 10:00 AM EDT) [facility] Lipase 26 8 - 78 U/L [facility] 12/04/2024 10:0 0 AM EDT 12/04/2024 10:00 AM EDT Generic External Data Provider LAB BLOOD ORDERAB LES Final Result Performing Organization Address [facility] Co de Phone Number [facility] [address] [place] [phone] * (ABNORMAL) Hepatic Function Panel (12/04/2024 10:00 AM EDT) Pathologist [facility] Bilirubin, Total 0.2 0.0 - 1.0 mg/dL [facility] Bilirubin, Direct <0.2 0.0 - 0.5 mg/dL [facility] Aspartate Amino Transferase 19 5 - 31 U/L [facility] Comment:Slight Hemolysis.Int erpret result with caution. Alanine Aminotransferase 11 0 - 31 U/L [facility] Total Protein 7.7 6.5 - 8.0 g/dL [facility] Albumin Level 4.0 3.5 - 5.0 g/dL [facility] Alkaline Phosphatase 196(H) 39 - 117 U/L [facility] 12/04/2024 10:0 0 AM EDT 12/04/2024 10:00 AM EDT us Generic External Data Provider LAB BLOOD ORDERAB LES Final Result [facility] [address] [place] [phone] * (ABNORMAL) POCT HGB A1C (08/22/2024 10:00 AM EST) Hemoglobin A1C 9.7(A) 4.0 - 6.0 % QC Media Lot # [id number] Lot# Expiration Date ,[id number] Blood 08/22/2024 10:0 0 AM EST us Nolan Name POINT OF CARE TEST ENTER/EDIT OR DERABLES Final Result * Lipid Panel, Standard (11/14/2023 10:26 AM EST) Triglycerides 126 <150 mg/dL [facility] Comment:Desirable Triglyceri de: less than 150 mg/dLBorderline High Triglyceride 150-199 mg/dLHigh Triglyceride: 200-499 mg/dLVery High Triglyceride: greater than or equal to 5OO mg/dL Cholesterol 149 <200 mg/dL [facility] Comment:Desirable Cholestero l: less than 200 mg/dLBorderline High Cholesterol: 200-239 mg/dLHigh Cholesterol: greater than 239 mg/dL LDL Cholesterol Calculated 76 <100 mg/dL [facility] Comment:Desirable LDL: less than 100 mg/dLNear Optimal/Above Optimal LDL: 110- 129 mg/dLBorderline High LDL: 130-159 mg/dLHigh LDL: 160-189 mg/dLVery High LDL: greater than or equal to 190 mg/dL HDL Cholesterol 48 >40 mg/dL [facility] Comment:Desirable HDL: great er than 40 mg/dL Note: This HDL assay may give artificially low results in patients with liver disease. Blood Venous blood specimen / Unknown 11/14/2023 10:26 AM EST 11/14/2023 2:10 PM EST Nolan Blevins MD LAB BLOOD ORDERABLES Final Resul t [facility] [address] [place] [phone] * HEPATITIS C AB W/REFL TO HCV RNA, QN, PCR (11/13/2020 2:31 PM EST) HEPATITIS C ANTIBODY NON-REACT [place] NON-REACT [place] [facility] INDEX 0.01 <1.00 [facility] Comment: ?? HCV antibody was non-reactive. There is no laboratory ?? evidence of HCV infection. ?? In most cases, no further action is required. However, if recent HCV exposure is suspected, a test for HCV RNA (test code 48185) is suggested. ?? For additional information please refer to http://education.[employer]/faq/PNQ79y3 (This link is being provided for informational/ educational purposes only.) ?? 11/13/2020 2:31 PM EST Stefany Griffiths MD HISTORICAL/NON ORDERABLE LABS Final Result Performing Organization Address City/[facility] Co de Phone Number [facility] [address] * DIGITAL BILATERAL SCREEN 1 (06/22/2018 [...] Eye Exam (04/20/2012) Eye Exam Normal Normal [facility] External Provider HEALTH MAINTENANCE Final Result from Last 3 Months or Most Recently Relevant to Health Maintenance [facility] Care Teams Metal Loader Relationship Specialty Start Date End Date Name, MD Nolan [address] [place] [address] PCP - General Family Medicine 06/13/18
== END 2024-12-26 11:41 | disposition home or self-care (01) ==
LOC: HO.HKA 11:22
PROVIDERS: PCP Internal Medicine Geriatric Medicine; Visit Provider Internal Medicine Hypertension Specialist
DX: N18.32 Chronic kidney disease, stage 3b (principal); E11.21 Type 2 diabetes mellitus with diabetic nephropathy; Z79.4 Long term (current) use of insulin; E87.1 Hypo-osmolality and hyponatremia; E87.20 Acidosis, unspecified; E87.5 Hyperkalemia; I95.9 Hypotension, unspecified
CPT/HCPCS: 99214

== ENCOUNTER → 2024-12-26 11:21 | Outpatient (BNVA) | payer MEDICAID, SELFPAY | PROVIDERS: PCP Internal Medicine Geriatric Medicine; Visit Provider Internal Medicine Hypertension Specialist | DX: E11.22 Type 2 diabetes mellitus with diabetic chronic kidney disease (principal); E11.21 Type 2 diabetes mellitus with diabetic nephropathy; I12.9 Hypertensive chronic kidney disease with stage 1 through stage 4 chronic kidney disease, or unspecified chronic kidney disease; N18.32 Chronic kidney disease, stage 3b; E87.1 Hypo-osmolality and hyponatremia; E87.20 Acidosis, unspecified; E87.5 Hyperkalemia; I95.9 Hypotension, unspecified; Z79.4 Long term (current) use of insulin | CPT/HCPCS: 99212 ==

== ENCOUNTER 2024-12-29 08:16 | Inpatient (IN) | payer MEDICAID, SELFPAY ==
[2024-12-29] VITALS (27 sets, daily range): BP systolic 66–138; BP diastolic 30–77; PULSE 90–113; RESP 16–108; TEMP 35.9–36.7; O2SAT 94–100; BMI 22.5
--- NOTE | ~2024-12-29 | CT_ITS ---
CLINICAL HISTORY: Stroke Protocol, weakness CT of the head without intravenous contrast Comparison: None Findings: The ventricles and sulci are prominent, consistent with generalized cerebral parenchymal volume loss. The ventricles are symmetric and the basilar cisterns are intact. Mild periventricular, deep and subcortical white matter hypodensities are nonspecific but statistically reflect the sequela of chronic small vessel ischemic change. No intracranial hemorrhage, extra-axial fluid collection, midline shift or mass-effect is evident. No evidence of acute large vessel or territorial ischemia. Brainstem and cerebellum unremarkable. Vascular calcifications indicate intracranial atherosclerosis. The imaged portion of the paranasal sinuses are clear. No mastoid effusions are demonstrated. The orbital contents are unremarkable. Calvarium is intact. Impression: 1. No CT evidence of acute intracranial abnormality. 2. Cerebral volume loss, intracranial atherosclerotic disease and mild sequela of chronic small vessel ischemic disease. This document has been electronically signed by: Umer Waters MD on 12/29/2024 09:23:13
--- NOTE | ~2024-12-29 | XR_ITS ---
CLINICAL HISTORY: sob 1 view chest x-ray Comparison: Chest x-ray from 12/29/2024. Findings: Recurrent and/or mild worsening of the bilateral pulmonary opacities within interstitial predominance. Differential considerations include pneumonitis/pneumonia. Mild atelectasis, low lung volumes, and elevation left hemidiaphragm. No pneumothorax or pleural effusion in this portable image. Gaseous distention of the imaged hepatic flexure again noted. Degenerative changes include imaged shoulders and AC joints. IMPRESSION: Worsening and/or recurrence of the pulmonary opacities concerning for pulmonary edema and/or pneumonitis. Recommend attention on follow-up to ensure resolution. This document has been electronically signed by: Darwin Holt MD on 12/31/2024 23:36:29
--- NOTE | ~2024-12-29 | CT_ITS ---
CLINICAL HISTORY: multiple falls CT cervical spine without intravenous contrast Comparison: None Findings: Craniocervical junction: No occipital condylar fractures. No evidence of atlantooccipital dissociation. The anterior and posterior arch and lateral masses of C1 are intact. Odontoid and atlanto-dental interval intact. The pars interarticularis of C2 is intact. This exam was subject to excessive motion subtle fractures may be obscured no definite acute compression fractures. There is normal cervical alignment. No locked or perched facets. No spinous process fractures. Lordotic curvature is preserved. The retropharyngeal soft tissues are not widened. Segmental analysis as below (MR is more accurate in the evaluation of disc herniation and central canal pathology): C2-C3: No herniation or stenosis. C3-C4: No herniation or stenosis. C4-C5: Degenerative facet hypertrophy on the left C5-C6: Degenerative facet hypertrophy on the left C6-C7: No herniation or stenosis. C7-T1: No herniation or stenosis. The bones are without evidence of lytic or blastic lesion. Biapical interstitial disease Impression: 1. This exam was subject to excessive motion subtle fractures may be obscured. Degenerative spondylosis without listhesis. Mild loss of vertebral body height T4 vertebral body probably chronic This document has been electronically signed by: Umer Waters MD on 12/29/2024 10:59:36
--- NOTE | ~2024-12-29 | XR_ITS ---
CLINICAL HISTORY: weakness 1 view chest x-ray. Comparison: None Findings: Low lung volumes. Bilateral predominantly interstitial opacities either cardiogenic or pneumonic. No pneumothorax or pleural effusion. Cardiomegaly No passive venous congestion. No mediastinal shift No acute fracture. Impression: 1. Poor inspiratory effort. Cardiomegaly with interstitial thickening. This document has been electronically signed by: Umer Waters MD on 12/29/2024 09:24:39
--- NOTE | ~2024-12-29 | XR_ITS ---
CLINICAL HISTORY: COUGH 2 view chest x-ray Comparison: CR - XR CHEST 1V - 12/29/24 08:40 EDT Findings: There is mild prominence of central lung markings and mild thickening of the fissures. There is no consolidation or pleural effusion. Borderline heart size. No acute fracture. There is gaseous distention of bowel within the visualized abdomen. IMPRESSION: Mild prominence of central lung markings and mild fissural thickening. Could consider a mild degree of interstitial edema or interstitial infiltrates. This document has been electronically signed by: Estee Oden MD on 12/29/2024 15:19:05
--- NOTE | ~2024-12-29 | CT_ITS ---
CLINICAL HISTORY: abd tenderness, distention CT abdomen and pelvis without IV or oral contrast Comparison: None Findings: Lung bases show no active disease. No dependent layering pleural effusions. Small pericardial effusion. Sliding hiatal hernia. No stones are identified in the kidneys, ureters or bladder. There is no hydronephrosis or perinephric stranding/fluid. Decompressed urinary bladder. Evaluation of the liver, spleen, adrenal glands and pancreas demonstrates no lesions. Mild hepatomegaly. No splenomegaly. It should be noted that isodense masses may be obscured in the absence of intravenous contrast. No radiopaque gallstones. Heavy stool burden with fecal impaction. No pathologically enlarged lymph nodes. No ascites demonstrated. Postmenopausal uterine atrophy. No vertebral body compression fractures or spondylolisthesis. No bony destructive lesions. Impression: 1. No obstructing calculus. Mild pelvicaliectasis bilaterally. Decompressed urinary bladder. 2. Mild diffuse fecal impaction particularly in the distal colon. This document has been electronically signed by: Umer Waters MD on 12/29/2024 10:28:32
--- NOTE | 2024-12-29 08:29 | ECG_ITS ---
Test Reason : SYNCOPE Blood Pressure : */* mmHG Vent. Rate : 98 BPM Atrial Rate : 98 BPM P-R Int : 178 ms QRS Dur : 92 ms QT Int : 386 ms P-R-T Axes : 47 44 59 degrees QTcB Int : 492 ms Normal sinus rhythm Normal ECG When compared with ECG of 08-Mar-2024 04:00, Vent. rate has increased by 42 bpm Nonspecific T wave abnormality now evident in Lateral leads Referred By: Yasmeen De Dios Electronically Signed By: ISABEL STACY
[2024-12-29] MEDS: LACTATED RINGERS 1837.05 ML IVCONT (08:43)
--- NOTE | 2024-12-29 08:45 | ED_ITS ---
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 Family denies head strike or loss of consciousness. Patient complains of generalized abdominal pain and family reports that she has been constipated. They state that she recently started Nexium and senna around 2 weeks ago. Patient noted to be hypotensive during triage. Nursing also reporting that patient having difficulty following commands. 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 MD complaint: falls, abdominal pain, weakness Onset (ago): hour(s) Location: abdomen Radiation: non-radiation Related Data Home Medications ?Medication ?Instructions ?Recorded ?Confirmed aspirin 81 mg tablet,delayed 81 mg PO DAILY 04/21/22 12/26/24 release atorvastatin 20 mg tablet 20 mg PO BEDTIME 04/21/22 12/26/24 benztropine 0.5 mg tablet 0.5 mg PO BID 04/21/22 12/26/24 fluoxetine 10 mg capsule 10 mg PO DAILY 04/21/22 12/26/24 insulin syringe-needle U-100 0.5 #10 ea 04/21/22 12/26/24 mL 30 gauge x 1/2 (UltiCare) metoprolol succinate 50 mg 50 mg PO DAILY 04/21/22 12/26/24 tablet,extended release 24 hr mirtazapine 7.5 mg tablet 7.5 mg PO BEDTIME 04/21/22 12/26/24 ergocalciferol (vitamin D2) 1,250 1 cap PO GUERRA@0900 05/06/22 12/26/24 mcg (50,000 unit) capsule haloperidol 5 mg tablet 1 tab PO BID 05/06/22 12/26/24 jqfivqeu-vhqk-asli 8 mg-folic 400 1 tab PO DAILY 05/20/23 12/26/24 mcg-K 50 mcg-lutein 300 mcg tablet (Centrum Silver Women) prazosin 2 mg capsule 4 mg PO BEDTIME 05/20/23 12/26/24 gabapentin 100 mg capsule 100 mg PO BEDTIME 05/30/24 12/26/24 insulin glargine 100 unit/mL (3 20 unit subcut QPM 08/27/24 12/26/24 mL) subcutaneous pen (Lantus Solostar U-100 Insulin) dulaglutide 0.75 mg/0.5 mL mg subcut QWEEK 11/14/24 12/26/24 subcutaneous pen injector (Trulicity) empagliflozin 10 mg tablet 10 mg PO QAM 11/14/24 12/26/24 (Jardiance) alcohol swabs (Alcohol Prep Pads) pad topical TID 12/04/24 12/26/24 blood sugar diagnostic (FreeStyle #10 ea 12/04/24 12/26/24 Lite Strips) lancets 33 gauge (TRUEplus Lancets) #100 ea 12/04/24 12/26/24 losartan 50 mg tablet 50 mg PO QAM 12/04/24 12/26/24 pen needle, diabetic 31 gauge x #100 ea 12/04/24 12/26/24 1/ (Easy Touch) Previous Rx's ?Medication ?Instructions ?Recorded pen needle, diabetic 32 gauge x #100 ea 05/23/23/16 esomeprazole magnesium 40 mg 40 mg PO DAILY #30 caps 12/04/24 capsule,delayed release (Nexium) famotidine 20 mg tablet (Pepcid) 20 mg PO BEDTIME #30 tabs 12/04/24 sennosides 8.6 mg tablet (Natural 17.2 mg (2 x 8.6 mg) PO BEDTIME 12/04/24 Senna Laxative) constipation #60 tabs Allergies Allergy/AdvReac Type Severity Reaction Status Date / Time iron Allergy Mild UNKNOWN Verified 12/29/24 08:22 Iodinated Contrast Media Allergy Unknown UNKNOWN Verified 12/29/24 08:22 [IV Dye, Iodine Containing] iodine [IODINE] Allergy Unknown RASH Verified 12/29/24 08:22 seafood Allergy Unknown Unknown Verified 12/29/24 08:22 Review of Systems 2 Review of Systems: As per HPI Yes all other systems are reviewed and are negative Constitutional: Constitutional: Reports as per HPI Neurologic: Denies Abnormal speech present [facility] Past Medical History Medical History Dysphagia Anxiety disorder GERD (gastroesophageal reflux disease) Migraines Asthma On beta jordyn at home Elevated cholesterol HTN (hypertension) Smoker Diabetes Depression Heartburn Surgical History Hx of left knee surgery History of tubal ligation History of esophagogastroduodenoscopy (EGD) H/O colonoscopy Hx of cholecystectomy Social History Social History Household Members: Family Housing: Apartment Alcohol intake: former Patient Tobacco Use Status: Current everyday Tobacco user Tobacco use type: Cigarette Cigarettes Per Day: 6 Smoked in Last 30 Days: Yes Second Hand Smoke Exposure: Yes Advance Directives: No Advance Directives Information Provided: Yes Do you have a plan to hurt others: No Plan service: No Current occupational status: disabled Physical Exam ED Vital Signs: Vital Signs - 24 hr 12/29/24 08:18 12/29/24 08:40 12/29/24 08:58 Temperature 96.6 F L Pulse Rate 95 90 90 Respiratory Rate 22 H 20 18 Blood Pressure 66/38 L 80/49 L 138/69 Pulse Oximetry 100 99 Oxygen Delivery Method Room Air Room Air 12/29/24 09:17 12/29/24 09:25 12/29/24 09:48 Temperature 97.5 F Pulse Rate 92 98 95 Respiratory Rate 18 18 20 Blood Pressure 122/70 124/75 124/77 Pulse Oximetry 99 97 96 Oxygen Delivery Method Room Air Room Air Room Air 12/29/24 10:28 12/29/24 11:00 12/29/24 11:28 Temperature Pulse Rate 92 94 100 Respiratory Rate 16 18 18 Blood Pressure 88/63 L 108/45 L 93/69 Pulse Oximetry 96 97 Oxygen Delivery Method Room Air Room Air 12/29/24 12:27 12/29/24 12:30 12/29/24 13:00 Temperature Pulse Rate 105 H 105 H Respiratory Rate 18 18 108 H Blood Pressure 120/66 120/66 119/68 Pulse Oximetry 97 97 97 Oxygen Delivery Method Room Air Room Air Room Air 12/29/24 13:30 12/29/24 14:00 12/29/24 14:30 Temperature Pulse Rate 108 H 112 H 113 H Respiratory Rate 18 18 18 Blood Pressure 115/30 L 94/52 L 106/55 L Pulse Oximetry 97 98 98 Oxygen Delivery Method Room Air Room Air Room Air 12/29/24 14:54 12/29/24 15:00 12/29/24 16:30 Temperature Pulse Rate 100 113 H Respiratory Rate 18 18 Blood Pressure 117/75 108/63 108/73 Pulse Oximetry 97 97 Oxygen Delivery Method Room Air Room Air 12/29/24 17:00 Temperature Pulse Rate 110 H Respiratory Rate 18 Blood Pressure 117/64 Pulse Oximetry 94 Oxygen Delivery Method BMI result Body Mass Index 22.5 Vital signs have been reviewed and appear to be correct. Blood pressure hypotensive, IV fluids ordered. Heart rate normal. Respiratory rate normal. Temperature normal. Oxygen saturation normal. Const Other: patient appears weak/drowsy but responds appropriately to questions/verbal commands General: cooperative, awake and tired appearing Nutritional Appearance: average body habitus Orientation/consciousness: oriented to person, oriented to place, oriented to time and patient oriented x3 HENMT Head: Yes normocephalic and Yes atraumatic Ears: external ears normal General nose exam: Normal external nose present Face and sinus: Yes face symmetric Mouth: oropharynx normal and moist mucous membranes Throat: Yes uvula midline Eyes Pupils: Equal, round and reactive pupils present EOM: EOMs intact bilaterally Neck Neck: Yes normal visual inspection and Yes supple Resp Effort & Inspection: normal respiratory effort and able to speak in complete sentences Auscultation: clear to auscultation bilaterally Cardio Rate: regular rate Rhythm: regular rhythm Heart sounds: S1 normal heart sound present and S2 normal heart sound present GI Inspection: Yes distended Palpation (GI): Soft to palpation and Tenderness to palpation present (GI) (mild diffuse tenderness) Auscultation: normoactive bowel sounds General: Yes no CVA tenderness Back/Spine/Pelvis Back: no CVA tenderness Skin General skin exam: elasticity normal and turgor normal Neuro General: oriented to person, oriented to place, oriented to time, patient oriented x3, moves all extremities, Normal light touch and pain sensation, no focal motor deficits, CN's II-XI intact bilaterally and deep tendon reflexes 2+ bilaterally Cranial nerves: Yes Equal, round and reactive pupils present Cognition (Neuro): normal cognition Speech: No Abnormal speech present Motor exam (neuro): Pronator motor function not present, no tremor noted, Motor abnormalities not present and Abnormal motor strength present bilateral lower extremity flexion 3 / 5, extension 3 / 5, ABduction 3 / 5, ADduction 3 / 5, opposition 3 / 5 and other Sensory Exam: Normal double simultaneous stimulation for sensation Extrem General: Yes full ROM, Yes no pedal edema and Yes no calf tenderness Psych Mental Status: mental status grossly normal Affect: normal affect Thought process: Normal thought process present NIH Stroke Scale Internal: Initial- Upon Arrival Time: 09:03 Level of Consciousness: Not Alert; but arousable by minor stimulation Level of Consciousness Questions: Answers both questions correctly Level of Consciousness Commands: Performs both tasks correctly Best Gaze: Normal Visual: No visual loss Facial Palsy: Normal Motor Arm (Right): No drift Motor Arm (Left): No drift Motor Leg (Right): No drift Motor Leg (Left): No drift Limb Ataxia: Absent Sensory: Normal Best Language: No aphasia Dysarthia: Normal Extinction and Inattention: No abnormality Score: 1 Course Reevaluation(s) Reevaluation #1: Case discussed with hospitalist, he is concerned that BP is low again (94/52), recommending repeat CXR, BMP, BNP, VBG. Time: 14:00 Reevaluation #2: Dr. Duggan, director of marketing [employer] recommending PO midodrine. Time: 14:45 Reevaluation #3: VBG notable for pH of 7.15, bicarb of 10. BPs have remained over 100 systolic for the past several hours. Dr. Duggan advising against starting pressors at this time. Recommending bicarb drip. Time: 16:46 Additional Reevaluation(s): 12/29/24 17:[address] Dias who sent Smile Text group message to Dr. Turner and Dr. Duggan to determine plan of care. Medications Administered Generic Name Dose Route Start Last Admin Trade Name Freq PRN Reason Stop Dose Admin Sodium Bicarbonate 150 meq/ 1,000 mls @ 75 mls/hr 12/29/24 16:45 12/29/24 17:12 Dextrose IV 75 mls/hr .[id number] SHAWN Administration Discontinued Medications Generic Name Dose Route Start Last Admin Trade Name Freq PRN Reason Stop Dose Admin Ceftriaxone Sodium 1 gm 12/29/24 08:28 12/29/24 08:48 Ceftriaxone Sodium 1 Gm Vial IVPUSH 12/29/24 08:29 1 gm ONCE ONE Administration Lactated Ringer's 1,837.05 mls @ 1,837.05 mls/hr 12/29/24 08:28 12/29/24 09:24 Lr 30 ml/kg infuse over 1 hr (1837.05 ml) 12/29/24 09:27 Infused IVCONT Infusion .Q1H ONE Albumin Human 100 mls @ 133.333 mls/hr 12/29/24 10:30 12/29/24 11:42 Kedbumin 25 % IV 12/29/24 12:14 Infused Q1H SHAWN Infusion Sodium Chloride 500 mls @ 999 mls/hr 12/29/24 11:30 12/29/24 12:19 Ns IV 12/29/24 12:00 Infused .Q31M SHAWN Infusion Doxycycline Hyclate 100 mg/ 250 mls @ 166.67 mls/hr 12/29/24 11:28 12/29/24 13:32 Sodium Chloride IV 12/29/24 12:57 Infused ONCE ONE Infusion Sodium Chloride 1,000 mls @ 500 mls/hr 12/29/24 13:45 12/29/24 14:51 Ns IV 12/29/24 14:44 Not Given .Q2H SHAWN Midodrine 10 mg 12/29/24 14:46 12/29/24 14:54 Midodrine Hcl 10 Mg Tablet PO 12/29/24 14:47 10 mg ONCE ONE Administration Medical Decision Making Medical Decision Making MDM Narrative: Patient is a 59-year-old female with history of poorly controlled DM, CKD, smoking, chronic constipation presenting to the emergency department with family who report that 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 On exam patient is awake, A+Ox3, severe hypotension, VS otherwise WNL, afebrile, normal neurological exam without focal deficits, physical exam findings as above. Given reported symptoms and physical exam findings, initial differential includes but is not limited to sepsis, UTI, CVA/ICH, pneumonia, electrolyte abnormality, GI bleed. Labs notable for leukocytosis with left shift, stable H&H, elevated lactic, hyponatremia likely secondary to hypovolemia, elevated lactic. CT head and c-spine notable for no evidence of acute intracranial abnormality, cervical exam somewhat limited due to motion artifact. CT A/P is without evidence of obstructing calculi, mild diffuse fecal impaction noted particularly in the distal colon. Chest x-ray notable for low lung volumes, bilateral interstitial opacities. My interpretation is in agreement with the radiologist's interpretation. UA notable for trace leukocytes, 21-50 WBCs, but >20 epithelials, no bacteria seen. Will hold off on treating for UTI at this time pending urine culture, however, patient covered by IV ceftriaxone ordered for PNA. Lab Data 12/29/24 08:46 12/29/24 16:18 Labs: Lab Results 12/29/24 12/29/24 12/29/24 Range/Units 08:46 08:47 08:53 WBC 20.9 H (4.8-10.8) X10*3/uL RBC 3.83 L (4.20-5.50) X10*6/uL Hgb 11.1 L (12.0-16.0) g/dl Hct 33.6 L (37.0-47.0) % MCV 87.7 (80.0-98.0) fL MCH 29.0 (27.0-33.0) pg MCHC 33.0 (31.0-35.0) g/dl RDW 14.9 (11.0-16.0) % Plt Count 406 H D (160-400) X10*3/uL MPV 10.2 (9.4-12.3) fL Immature Gran % (Auto) 0.6 H (0.0-0.4) % Neut % (Auto) 87.7 H (45-73) % Lymph % (Auto) 5.2 L (20-40) % Garrard % (Auto) 5.8 (2-11) % Eos % (Auto) 0.5 (0-4) % Baso % (Auto) 0.2 (0-2) % Lymph # (Auto) 1.1 L (1.2-4.9) X10*3/uL Garrard # (Auto) 1.2 (0.1-1.2) X10*3/uL Eos # (Auto) 0.1 (0.0-0.4) X10*3/uL Baso # (Auto) 0.0 (0.0-0.2) X10*3/uL Abs Immat Gran (auto) 0.13 H (0.00-0.03) X10*3/uL Absolute Neuts (auto) 18.3 H (2.0-8.3) x10*3/uL Absolute Nucleated RBC 0.000 (0.0-0.012) X10*3/uL Nucleated RBC % (auto) 0.0 (0.0-0.2) /100WBC PT 13.5 H (10.9-12.4) SEC INR 1.2 H (0.9-1.1) APTT (26.0-36.8) SEC VBG pH (7.32-7.43) VBG pCO2 mmHg VBG pO2 mmHg VBG HCO3 (22-26) mmol/L VBG O2 Saturation % VBG Base Excess mmol/L Sodium 127 L (135-145) mmol/L Potassium 4.8 (3.3-5.1) mmol/L Chloride 105 (96-108) mmol/L Carbon Dioxide 9 L* D (22-29) mmol/L Anion Gap 18 (12-20) BUN 39 H (9-16) mg/dL Creatinine 1.93 H (0.5-1.4) mg/dL Estim Creat Clear Calc 27.5 Estimated GFR 26 Random Glucose 296 H (60-115) mg/dL Lactic Acid 3.7 H* (0.5-2.0) mmol/L Lactic Acid F/U @ 2Hr (0.5-2.0) mmol/L Lactic Acid F/U @ 4Hr (0.5-2.0) mmol/L Calcium 9.1 (8.4-10.2) mg/dL Total Bilirubin 0.5 (0.0-1.0) mg/dL AST (5-31) U/L ALT (0-31) U/L Alkaline Phosphatase (39-117) U/L Troponin I High Sens < 2.7 (<3.5-17.0) ng/L B-Natriuretic Peptide (<100) pg/mL Total Protein (6.5-8.0) g/dL Albumin (3.5-5.0) g/dL Triglycerides 96 (<150) mg/dL Cholesterol 142 (<200) mg/dL LDL Cholesterol, Calc 78 (<100) mg/dL HDL Cholesterol 45 (>40) mg/dL Urine Color Urine Appearance Urine pH (5.0-9.0) Ur Specific Whitefield (1.005-1.025) Urine Protein (Neg-Trace) mg/dL Urine Glucose (UA) (Negative) mg/dL Urine Ketones (Negative) mg/dL Urine Blood (Negative) Urine Nitrite (Negative) Ur Leukocyte Esterase (Negative) Urine RBC (0-2) /HPF Urine WBC (0-5) /HPF Ur Squamous Epith Cells (0-2) /HPF Urine Bacteria (None Seen) Hyaline Casts (0-2) /LPF Blood Type Cancelled Rho(D) Type Cancelled Antibody Screen Cancelled 12/29/24 12/29/24 12/29/24 Range/Units 08:54 09:21 11:15 WBC (4.8-10.8) X10*3/uL RBC (4.20-5.50) X10*6/uL Hgb (12.0-16.0) g/dl Hct (37.0-47.0) % MCV (80.0-98.0) fL MCH (27.0-33.0) pg MCHC (31.0-35.0) g/dl RDW (11.0-16.0) % Plt Count (160-400) X10*3/uL MPV (9.4-12.3) fL Immature Gran % (Auto) (0.0-0.4) % Neut % (Auto) (45-73) % Lymph % (Auto) (20-40) % Garrard % (Auto) (2-11) % Eos % (Auto) (0-4) % Baso % (Auto) (0-2) % Lymph # (Auto) (1.2-4.9) X10*3/uL Garrard # (Auto) (0.1-1.2) X10*3/uL Eos # (Auto) (0.0-0.4) X10*3/uL Baso # (Auto) (0.0-0.2) X10*3/uL Abs Immat Gran (auto) (0.00-0.03) X10*3/uL Absolute Neuts (auto) (2.0-8.3) x10*3/uL Absolute Nucleated RBC (0.0-0.012) X10*3/uL Nucleated RBC % (auto) (0.0-0.2) /100WBC PT (10.9-12.4) SEC INR (0.9-1.1) APTT 35.3 D (26.0-36.8) SEC VBG pH (7.32-7.43) VBG pCO2 mmHg VBG pO2 mmHg VBG HCO3 (22-26) mmol/L VBG O2 Saturation % VBG Base Excess mmol/L Sodium (135-145) mmol/L Potassium (3.3-5.1) mmol/L Chloride (96-108) mmol/L Carbon Dioxide (22-29) mmol/L Anion Gap (12-20) BUN (9-16) mg/dL Creatinine (0.5-1.4) mg/dL Estim Creat Clear Calc Estimated GFR Random Glucose (60-115) mg/dL Lactic Acid (0.5-2.0) mmol/L Lactic Acid F/U @ 2Hr 3.8 H* (0.5-2.0) mmol/L Lactic Acid F/U @ 4Hr (0.5-2.0) mmol/L Calcium (8.4-10.2) mg/dL Total Bilirubin (0.0-1.0) mg/dL AST (5-31) U/L ALT (0-31) U/L Alkaline Phosphatase (39-117) U/L Troponin I High Sens (<3.5-17.0) ng/L B-Natriuretic Peptide (<100) pg/mL Total Protein (6.5-8.0) g/dL Albumin (3.5-5.0) g/dL Triglycerides (<150) mg/dL Cholesterol (<200) mg/dL LDL Cholesterol, Calc (<100) mg/dL HDL Cholesterol (>40) mg/dL Urine Color DK YELLOW Urine Appearance Hazy Urine pH 5.5 (5.0-9.0) Ur Specific Whitefield 1.025 (1.005-1.025) Urine Protein 30 (1+) H (Neg-Trace) mg/dL Urine Glucose (UA) 500 H (Negative) mg/dL Urine Ketones Trace (Negative) mg/dL Urine Blood Small (1+) H (Negative) Urine Nitrite Negative (Negative) Ur Leukocyte Esterase Trace H (Negative) Urine RBC 11-20 H (0-2) /HPF Urine WBC 21-50 H (0-5) /HPF Ur Squamous Epith Cells >20 (0-2) /HPF Urine Bacteria None Seen (None Seen) Hyaline Casts >20 (0-2) /LPF Blood Type Rho(D) Type Antibody Screen 12/29/24 12/29/24 12/29/24 Range/Units 13:31 16:18 16:18 WBC (4.8-10.8) X10*3/uL RBC (4.20-5.50) X10*6/uL Hgb (12.0-16.0) g/dl Hct (37.0-47.0) % MCV (80.0-98.0) fL MCH (27.0-33.0) pg MCHC (31.0-35.0) g/dl RDW (11.0-16.0) % Plt Count (160-400) X10*3/uL MPV (9.4-12.3) fL Immature Gran % (Auto) (0.0-0.4) % Neut % (Auto) (45-73) % Lymph % (Auto) (20-40) % Garrard % (Auto) (2-11) % Eos % (Auto) (0-4) % Baso % (Auto) (0-2) % Lymph # (Auto) (1.2-4.9) X10*3/uL Garrard # (Auto) (0.1-1.2) X10*3/uL Eos # (Auto) (0.0-0.4) X10*3/uL Baso # (Auto) (0.0-0.2) X10*3/uL Abs Immat Gran (auto) (0.00-0.03) X10*3/uL Absolute Neuts (auto) (2.0-8.3) x10*3/uL Absolute Nucleated RBC (0.0-0.012) X10*3/uL Nucleated RBC % (auto) (0.0-0.2) /100WBC PT (10.9-12.4) SEC INR (0.9-1.1) APTT (26.0-36.8) SEC VBG pH (7.32-7.43) VBG pCO2 mmHg VBG pO2 mmHg VBG HCO3 (22-26) mmol/L VBG O2 Saturation % VBG Base Excess mmol/L Sodium 131 L 131 L (135-145) mmol/L Potassium 4.6 (3.3-5.1) mmol/L Chloride (96-108) mmol/L Carbon Dioxide (22-29) mmol/L Anion Gap (12-20) BUN (9-16) mg/dL Creatinine (0.5-1.4) mg/dL Estim Creat Clear Calc Estimated GFR Random Glucose (60-115) mg/dL Lactic Acid (0.5-2.0) mmol/L Lactic Acid F/U @ 2Hr (0.5-2.0) mmol/L Lactic Acid F/U @ 4Hr 3.7 H* (0.5-2.0) mmol/L Calcium (8.4-10.2) mg/dL Total Bilirubin (0.0-1.0) mg/dL AST (5-31) U/L ALT (0-31) U/L Alkaline Phosphatase (39-117) U/L Troponin I High Sens (<3.5-17.0) ng/L B-Natriuretic Peptide (<100) pg/mL Total Protein (6.5-8.0) g/dL Albumin (3.5-5.0) g/dL Triglycerides (<150) mg/dL Cholesterol (<200) mg/dL LDL Cholesterol, Calc (<100) mg/dL HDL Cholesterol (>40) mg/dL Urine Color Urine Appearance Urine pH (5.0-9.0) Ur Specific Whitefield (1.005-1.025) Urine Protein (Neg-Trace) mg/dL Urine Glucose (UA) (Negative) mg/dL Urine Ketones (Negative) mg/dL Urine Blood (Negative) Urine Nitrite (Negative) Ur Leukocyte Esterase (Negative) Urine RBC (0-2) /HPF Urine WBC (0-5) /HPF Ur Squamous Epith Cells (0-2) /HPF Urine Bacteria (None Seen) Hyaline Casts (0-2) /LPF Blood Type Rho(D) Type Antibody Screen 12/29/24 12/29/24 12/29/24 Range/Units 16:18 16:18 16:18 WBC (4.8-10.8) X10*3/uL RBC (4.20-5.50) X10*6/uL Hgb (12.0-16.0) g/dl Hct (37.0-47.0) % MCV (80.0-98.0) fL MCH (27.0-33.0) pg MCHC (31.0-35.0) g/dl RDW (11.0-16.0) % Plt Count (160-400) X10*3/uL MPV (9.4-12.3) fL Immature Gran % (Auto) (0.0-0.4) % Neut % (Auto) (45-73) % Lymph % (Auto) (20-40) % Garrard % (Auto) (2-11) % Eos % (Auto) (0-4) % Baso % (Auto) (0-2) % Lymph # (Auto) (1.2-4.9) X10*3/uL Garrard # (Auto) (0.1-1.2) X10*3/uL Eos # (Auto) (0.0-0.4) X10*3/uL Baso # (Auto) (0.0-0.2) X10*3/uL Abs Immat Gran (auto) (0.00-0.03) X10*3/uL Absolute Neuts (auto) (2.0-8.3) x10*3/uL Absolute Nucleated RBC (0.0-0.012) X10*3/uL Nucleated RBC % (auto) (0.0-0.2) /100WBC PT (10.9-12.4) SEC INR (0.9-1.1) APTT (26.0-36.8) SEC VBG pH (7.32-7.43) VBG pCO2 mmHg VBG pO2 mmHg VBG HCO3 (22-26) mmol/L VBG O2 Saturation % VBG Base Excess mmol/L Sodium (135-145) mmol/L Potassium 4.4 (3.3-5.1) mmol/L Chloride 112 H 111 H (96-108) mmol/L Carbon Dioxide 8 L* 9 L* (22-29) mmol/L Anion Gap 16 (12-20) BUN (9-16) mg/dL Creatinine (0.5-1.4) mg/dL Estim Creat Clear Calc Estimated GFR Random Glucose (60-115) mg/dL Lactic Acid (0.5-2.0) mmol/L Lactic Acid F/U @ 2Hr (0.5-2.0) mmol/L Lactic Acid F/U @ 4Hr (0.5-2.0) mmol/L Calcium (8.4-10.2) mg/dL Total Bilirubin (0.0-1.0) mg/dL AST (5-31) U/L ALT (0-31) U/L Alkaline Phosphatase (39-117) U/L Troponin I High Sens (<3.5-17.0) ng/L B-Natriuretic Peptide (<100) pg/mL Total Protein (6.5-8.0) g/dL Albumin (3.5-5.0) g/dL Triglycerides (<150) mg/dL Cholesterol (<200) mg/dL LDL Cholesterol, Calc (<100) mg/dL HDL Cholesterol (>40) mg/dL Urine Color Urine Appearance Urine pH (5.0-9.0) Ur Specific [place] (1.005-1.025) Urine Protein (Neg-Trace) mg/dL Urine Glucose (UA) (Negative) mg/dL Urine Ketones (Negative) mg/dL Urine Blood (Negative) Urine Nitrite (Negative) Ur Leukocyte Esterase (Negative) Urine RBC (0-2) /HPF Urine WBC (0-5) /HPF Ur Squamous Epith Cells (0-2) /HPF Urine Bacteria (None Seen) Hyaline Casts (0-2) /LPF Blood Type Rho(D) Type Antibody Screen 12/29/24 12/29/24 12/29/24 Range/Units 16:18 16:18 16:18 WBC (4.8-10.8) X10*3/uL RBC (4.20-5.50) X10*6/uL Hgb (12.0-16.0) g/dl Hct (37.0-47.0) % MCV (80.0-98.0) fL MCH (27.0-33.0) pg MCHC (31.0-35.0) g/dl RDW (11.0-16.0) % Plt Count (160-400) X10*3/uL MPV (9.4-12.3) fL Immature Gran % (Auto) (0.0-0.4) % Neut % (Auto) (45-73) % Lymph % (Auto) (20-40) % Garrard % (Auto) (2-11) % Eos % (Auto) (0-4) % Baso % (Auto) (0-2) % Lymph # (Auto) (1.2-4.9) X10*3/uL Garrard # (Auto) (0.1-1.2) X10*3/uL Eos # (Auto) (0.0-0.4) X10*3/uL Baso # (Auto) (0.0-0.2) X10*3/uL Abs Immat Gran (auto) (0.00-0.03) X10*3/uL Absolute Neuts (auto) (2.0-8.3) x10*3/uL Absolute Nucleated RBC (0.0-0.012) X10*3/uL Nucleated RBC % (auto) (0.0-0.2) /100WBC PT (10.9-12.4) SEC INR (0.9-1.1) APTT (26.0-36.8) SEC VBG pH (7.32-7.43) VBG pCO2 mmHg VBG pO2 mmHg VBG HCO3 (22-26) mmol/L VBG O2 Saturation % VBG Base Excess mmol/L Sodium (135-145) mmol/L Potassium (3.3-5.1) mmol/L Chloride (96-108) mmol/L Carbon Dioxide (22-29) mmol/L Anion Gap 15 (12-20) BUN 41 H 42 H (9-16) mg/dL Creatinine 1.59 H 1.62 H (0.5-1.4) mg/dL Estim Creat Clear Calc 33.4 Estimated GFR Random Glucose (60-115) mg/dL Lactic Acid (0.5-2.0) mmol/L Lactic Acid F/U @ 2Hr (0.5-2.0) mmol/L Lactic Acid F/U @ 4Hr (0.5-2.0) mmol/L Calcium (8.4-10.2) mg/dL Total Bilirubin (0.0-1.0) mg/dL AST (5-31) U/L ALT (0-31) U/L Alkaline Phosphatase (39-117) U/L Troponin I High Sens (<3.5-17.0) ng/L B-Natriuretic Peptide (<100) pg/mL Total Protein (6.5-8.0) g/dL Albumin (3.5-5.0) g/dL Triglycerides (<150) mg/dL Cholesterol (<200) mg/dL LDL Cholesterol, Calc (<100) mg/dL HDL Cholesterol (>40) mg/dL Urine Color Urine Appearance Urine pH (5.0-9.0) Ur Specific [place] (1.005-1.025) Urine Protein (Neg-Trace) mg/dL Urine Glucose (UA) (Negative) mg/dL Urine Ketones (Negative) mg/dL Urine Blood (Negative) Urine Nitrite (Negative) Ur Leukocyte Esterase (Negative) Urine RBC (0-2) /HPF Urine WBC (0-5) /HPF Ur Squamous Epith Cells (0-2) /HPF Urine Bacteria (None Seen) Hyaline Casts (0-2) /LPF Blood Type Rho(D) Type Antibody Screen 12/29/24 12/29/24 12/29/24 Range/Units 16:18 16:18 16:18 WBC (4.8-10.8) X10*3/uL RBC (4.20-5.50) X10*6/uL Hgb (12.0-16.0) g/dl Hct (37.0-47.0) % MCV (80.0-98.0) fL MCH (27.0-33.0) pg MCHC (31.0-35.0) g/dl RDW (11.0-16.0) % Plt Count (160-400) X10*3/uL MPV (9.4-12.3) fL Immature Gran % (Auto) (0.0-0.4) % Neut % (Auto) (45-73) % Lymph % (Auto) (20-40) % [place] % (Auto) (2-11) % Eos % (Auto) (0-4) % Baso % (Auto) (0-2) % Lymph # (Auto) (1.2-4.9) X10*3/uL [place] # (Auto) (0.1-1.2) X10*3/uL Eos # (Auto) (0.0-0.4) X10*3/uL Baso # (Auto) (0.0-0.2) X10*3/uL Abs Immat Gran (auto) (0.00-0.03) X10*3/uL Absolute Neuts (auto) (2.0-8.3) x10*3/uL Absolute Nucleated RBC (0.0-0.012) X10*3/uL Nucleated RBC % (auto) (0.0-0.2) /100WBC PT (10.9-12.4) SEC INR (0.9-1.1) APTT (26.0-36.8) SEC VBG pH (7.32-7.43) VBG pCO2 mmHg VBG pO2 mmHg VBG HCO3 (22-26) mmol/L VBG O2 Saturation % VBG Base Excess mmol/L Sodium (135-145) mmol/L Potassium (3.3-5.1) mmol/L Chloride (96-108) mmol/L Carbon Dioxide (22-29) mmol/L Anion Gap (12-20) BUN (9-16) mg/dL Creatinine (0.5-1.4) mg/dL Estim Creat Clear Calc 32.8 Estimated GFR 33 32 Random Glucose 189 H 190 H (60-115) mg/dL Lactic Acid (0.5-2.0) mmol/L Lactic Acid F/U @ 2Hr (0.5-2.0) mmol/L Lactic Acid F/U @ 4Hr (0.5-2.0) mmol/L Calcium 8.0 L D (8.4-10.2) mg/dL Total Bilirubin (0.0-1.0) mg/dL AST (5-31) U/L ALT (0-31) U/L Alkaline Phosphatase (39-117) U/L Troponin I High Sens (<3.5-17.0) ng/L B-Natriuretic Peptide (<100) pg/mL Total Protein (6.5-8.0) g/dL Albumin (3.5-5.0) g/dL Triglycerides (<150) mg/dL Cholesterol (<200) mg/dL LDL Cholesterol, Calc (<100) mg/dL HDL Cholesterol (>40) mg/dL Urine Color Urine Appearance Urine pH (5.0-9.0) Ur Specific Whitefield (1.005-1.025) Urine Protein (Neg-Trace) mg/dL Urine Glucose (UA) (Negative) mg/dL Urine Ketones (Negative) mg/dL Urine Blood (Negative) Urine Nitrite (Negative) Ur Leukocyte Esterase (Negative) Urine RBC (0-2) /HPF Urine WBC (0-5) /HPF Ur Squamous Epith Cells (0-2) /HPF Urine Bacteria (None Seen) Hyaline Casts (0-2) /LPF Blood Type Rho(D) Type Antibody Screen 12/29/24 12/29/24 Range/Units 16:18 16:23 WBC (4.8-10.8) X10*3/uL RBC (4.20-5.50) X10*6/uL Hgb (12.0-16.0) g/dl Hct (37.0-47.0) % MCV (80.0-98.0) fL MCH (27.0-33.0) pg MCHC (31.0-35.0) g/dl RDW (11.0-16.0) % Plt Count (160-400) X10*3/uL MPV (9.4-12.3) fL Immature Gran % (Auto) (0.0-0.4) % Neut % (Auto) (45-73) % Lymph % (Auto) (20-40) % Garrard % (Auto) (2-11) % Eos % (Auto) (0-4) % Baso % (Auto) (0-2) % Lymph # (Auto) (1.2-4.9) X10*3/uL Garrard # (Auto) (0.1-1.2) X10*3/uL Eos # (Auto) (0.0-0.4) X10*3/uL Baso # (Auto) (0.0-0.2) X10*3/uL Abs Immat Gran (auto) (0.00-0.03) X10*3/uL Absolute Neuts (auto) (2.0-8.3) x10*3/uL Absolute Nucleated RBC (0.0-0.012) X10*3/uL Nucleated RBC % (auto) (0.0-0.2) /100WBC PT (10.9-12.4) SEC INR (0.9-1.1) APTT (26.0-36.8) SEC VBG pH 7.15 L* (7.32-7.43) VBG pCO2 28 mmHg VBG pO2 42 mmHg VBG HCO3 10 L (22-26) mmol/L VBG O2 Saturation 67.0 % VBG Base Excess -17.1 mmol/L Sodium (135-145) mmol/L Potassium (3.3-5.1) mmol/L Chloride (96-108) mmol/L Carbon Dioxide (22-29) mmol/L Anion Gap (12-20) BUN (9-16) mg/dL Creatinine (0.5-1.4) mg/dL Estim Creat Clear Calc Estimated GFR Random Glucose (60-115) mg/dL Lactic Acid (0.5-2.0) mmol/L Lactic Acid F/U @ 2Hr (0.5-2.0) mmol/L Lactic Acid F/U @ 4Hr (0.5-2.0) mmol/L Calcium 8.2 L (8.4-10.2) mg/dL Total Bilirubin 0.4 (0.0-1.0) mg/dL AST 17 (5-31) U/L ALT 7 (0-31) U/L Alkaline Phosphatase 110 (39-117) U/L Troponin I High Sens (<3.5-17.0) ng/L B-Natriuretic Peptide 244 H (<100) pg/mL Total Protein 6.3 L (6.5-8.0) g/dL Albumin 3.7 (3.5-5.0) g/dL Triglycerides (<150) mg/dL Cholesterol (<200) mg/dL LDL Cholesterol, Calc (<100) mg/dL HDL Cholesterol (>40) mg/dL Urine Color Urine Appearance Urine pH (5.0-9.0) Ur Specific Whitefield (1.005-1.025) Urine Protein (Neg-Trace) mg/dL Urine Glucose (UA) (Negative) mg/dL Urine Ketones (Negative) mg/dL Urine Blood (Negative) Urine Nitrite (Negative) Ur Leukocyte Esterase (Negative) Urine RBC (0-2) /HPF Urine WBC (0-5) /HPF Ur Squamous Epith Cells (0-2) /HPF Urine Bacteria (None Seen) Hyaline Casts (0-2) /LPF Blood Type Rho(D) Type Antibody Screen Independent Interpretation I performed an independent interpretation of an: EKG (normal sinus rhythm, rate 98bpm, normal NM interval, prolonged QTc) Radiology Impression Discussion of test interpretation with radiology: I have reviewed the radiologist's reading. Radiologist Impression: CT of the head without intravenous contrast Comparison: None Findings: The ventricles and sulci are prominent, consistent with generalized cerebral parenchymal volume loss. The ventricles are symmetric and the basilar cisterns are intact. Mild periventricular, deep and subcortical white matter hypodensities are nonspecific but statistically reflect the sequela of chronic small vessel ischemic change. No intracranial hemorrhage, extra-axial fluid collection, midline shift or mass-effect is evident. No evidence of acute large vessel or territorial ischemia. Brainstem and cerebellum unremarkable. Vascular calcifications indicate intracranial atherosclerosis. The imaged portion of the paranasal sinuses are clear. No mastoid effusions are demonstrated. The orbital contents are unremarkable. Calvarium is intact. Impression: 1. No CT evidence of acute intracranial abnormality. 2. Cerebral volume loss, intracranial atherosclerotic disease and mild sequela of chronic small vessel ischemic disease. CT cervical spine without intravenous contrast Comparison: None Findings: Craniocervical junction: No occipital condylar fractures. No evidence of atlantooccipital dissociation. The anterior and posterior arch and lateral masses of C1 are intact. Odontoid and atlanto-dental interval intact. The pars interarticularis of C2 is intact. This exam was subject to excessive motion subtle fractures may be obscured no definite acute compression fractures. There is normal cervical alignment. No locked or perched facets. No spinous process fractures. Lordotic curvature is preserved. The retropharyngeal soft tissues are not widened. Segmental analysis as below (MR is more accurate in the evaluation of disc herniation and central canal pathology): C2-C3: No herniation or stenosis. C3-C4: No herniation or stenosis. C4-C5: Degenerative facet hypertrophy on the left C5-C6: Degenerative facet hypertrophy on the left C6-C7: No herniation or stenosis. C7-T1: No herniation or stenosis. The bones are without evidence of lytic or blastic lesion. Biapical interstitial disease Impression: 1. This exam was subject to excessive motion subtle fractures may be obscured. Degenerative spondylosis without listhesis. Mild loss of vertebral body height T4 vertebral body probably chronic CT abdomen and pelvis without IV or oral contrast Comparison: None Findings: Lung bases show no active disease. No dependent layering pleural effusions. Small pericardial effusion. Sliding hiatal hernia. No stones are identified in the kidneys, ureters or bladder. There is no hydronephrosis or perinephric stranding/fluid. Decompressed urinary bladder. Evaluation of the liver, spleen, adrenal glands and pancreas demonstrates no lesions. Mild hepatomegaly. No splenomegaly. It should be noted that isodense masses may be obscured in the absence of intravenous contrast. No radiopaque gallstones. Heavy stool burden with fecal impaction. No pathologically enlarged lymph nodes. No ascites demonstrated. Postmenopausal uterine atrophy. No vertebral body compression fractures or spondylolisthesis. No bony destructive lesions. Impression: 1. No obstructing calculus. Mild pelvicaliectasis bilaterally. Decompressed urinary bladder. 2. Mild diffuse fecal impaction particularly in the distal colon. 1 view chest x-ray. Comparison: None Findings: Low lung volumes. Bilateral predominantly interstitial opacities either cardiogenic or pneumonic. No pneumothorax or pleural effusion. Cardiomegaly No passive venous congestion. No mediastinal shift No acute fracture. Impression: 1. Poor inspiratory effort. Cardiomegaly with interstitial thickening. 2 view chest x-ray Comparison: CR - XR CHEST 1V - 12/29/24 08:40 EDT Findings: There is mild prominence of central lung markings and mild thickening of the fissures. There is no consolidation or pleural effusion. Borderline heart size. No acute fracture. There is gaseous distention of bowel within the visualized abdomen. IMPRESSION: Mild prominence of central lung markings and mild fissural thickening. Could consider a mild degree of interstitial edema or interstitial infiltrates. Critical Care Time Critical Care Time Critical Care Time: Yes Total Critical Care Time: 88 Attestation: I have personally provided critical care time exclusive of time spent on separately billable procedures. Time includes review of lab data, radiology results, discussion with consultants, and monitoring for potential decompensation. Intervention performed as documented. Discharge Plan Discharge Clinical Impression: Sepsis Patient Disposition: Admitted As Inpatient Prescriptions: No Action ergocalciferol (vitamin D2) 1,250 mcg (50,000 unit) capsule 1 cap PO GUERRA@0900 haloperidol 5 mg tablet 1 tab PO BID prazosin 2 mg capsule 4 mg PO BEDTIME Centrum Silver Women 8 mg iron-400 mcg-50 mcg Tablet 1 tab PO DAILY (DME) pen needle, diabetic 32 gauge x 3/16 needle See Rx Instructions .Route Qty: 100 0RF Rx Instructions: As directed mirtazapine 7.5 mg tablet 7.5 mg PO BEDTIME fluoxetine 10 mg capsule 10 mg PO DAILY aspirin 81 mg tablet,delayed release (DR/EC) 81 mg PO DAILY metoprolol succinate 50 mg tablet extended release 24 hr 50 mg PO DAILY benztropine 0.5 mg tablet 0.5 mg PO BID atorvastatin 20 mg tablet 20 mg PO BEDTIME (DME) insulin syringe-needle U-100 [UltiCare] 0.5 mL 30 gauge x 1/2 syringe See Rx Instructions .ROUTE DAILY Qty: 10 Rx Instructions: As directed Trulicity 0.75 mg/0.5 mL pen injector subcut QWEEK Jardiance 10 mg tablet 10 mg PO QAM (DME) lancets [TRUEplus Lancets] 33 gauge misc See Rx Instructions .ROUTE DAILY Qty: 100 Rx Instructions: As directed alcohol swabs [Alcohol Prep Pads] Pads, Medicated topical TID (DME) pen needle, diabetic [Easy Touch] 31 gauge x 1/4 needle See Rx Instructions .ROUTE DIRECTED Qty: 100 Rx Instructions: As directed (DME) FreeStyle Lite Strips Strip See Rx Instructions .ROUTE DAILY Qty: 10 Rx Instructions: As directed losartan 50 mg tablet 50 mg PO QAM sennosides [Natural Senna Laxative] 8.6 mg tablet 17.2 mg PO BEDTIME Qty: 60 3RF famotidine [Pepcid] 20 mg tablet 20 mg PO BEDTIME Qty: 30 3RF esomeprazole magnesium [Nexium] 40 mg capsule,delayed release(DR/EC) 40 mg PO DAILY Qty: 30 2RF gabapentin 100 mg capsule 100 mg PO BEDTIME insulin glargine [Lantus Solostar U-100 Insulin] 100 unit/mL (3 mL) insulin pen 20 unit subcut QPM Print Language: Serbian
--- OUTSIDE RECORDS SUMMARY | 2024-12-29 08:45 | XMS_ITS | Encounter Summary ---
Author Organization [employer] Address [address] [facility] [address] [place] [address] Care Team Providers Care Digging Machine Operator Name Role Phone Name, Nolan PADILLA Primary Care Provider [phone] Reason for Visit * Reason Comments Med Refill Encounter Details Date Type Department Care Team (Late st Contact Info) Description 12/23/2024 Refill [facility] [address] [place], [place] [phone] Name, MD Nolan [address] [facility] [place], [place] [phone] Depression, unspecified depression type; Diabetic polyneuropathy associated [...] Description 03/07/2025 10:15 AM EDT Office Visit [facility] MED[facility]INE [address] [place] [phone] NameNolan MD [address] [place] [phone] documented as of this encounter Visit Diagnoses Diagnosis Depression, unspecified depression type Diabetic polyneuropathy associated with type 2 diabetes mellitus (CMS/HCC) documented in this encounter Additional Health Concerns Assessment Noted Time PHQ-9 Depression Total Score: 7 04/18/20 23 10:20 AM EDT documented as of this encounter Care Teams Digging Machine Operator Relationship Specialty Start Date End Date NameNolan MD [address] [place] [id number] PCP - General Family Medicine 06/13/18 documented as of this encounter
--- OUTSIDE RECORDS SUMMARY | 2024-12-29 08:46 | XMS_ITS | Encounter Summary ---
Author Organization [employer] Address [address] [place] [address] [address] [place] [address] Care Team Providers Care Federal Agent Name Role Phone Name, Nolan PADILLA Primary Care Provider [phone] Reason for Visit * Reason Comments Med Refill Encounter Details Date Type Department Care Team (Late st Contact Info) Description 04/25/2023 Refill [facility] [address] [place], [place] [phone] Marlys Romero FNP [address] [place] [address] [place] [address] Type 2 diabetes mellitus without complication, unspecified whether roasterman insulin use ([facility]) Social History Tobacco [...] Description 03/07/2025 10:15 AM EDT Office Visit [facility] [address] [place] [phone] Name, MD Nolan [address] [place], [place] [phone] documented as of this encounter Visit Diagnoses Diagnosis Type 2 diabetes mellitus without complication, unspecified whether chcf insulin use ([facility]) documented in this encounter Additional Health Concerns Assessment Noted Time PHQ-9 Depression Total Score: 7 04/18/20 23 10:20 AM EDT documented as of this encounter Care Teams Federal Agent Relationship Specialty Start Date End Date Name, MD Nolan [address] [place] [address] PCP - General Family Medicine 06/13/18 documented as of this encounter
--- OUTSIDE RECORDS SUMMARY | 2024-12-29 08:46 | XMS_ITS | Encounter Summary ---
Author Organization [employer] Address [address] [facility] [address] [place] [address] Care Team Providers Care Garage Door Opener Installer Name Role Phone Name, Nolan PADILLA Primary Care Provider [phone] Reason for Visit * Reason Onset Date Comments Reschedule 10/04/2023 Encounter Details Date Type Department Care Team (Late st Contact Info) Description 10/04/2023 Telephone [facility] [address] [place], [place] [phone] Name, MD Nolan [address] [place] [address] Reschedule Social History Tobacco Use Types Packs/Day [...] daughter requesting r/s f/u appt from 10/06/23, board writer 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 documented in this encounter Plan of Treatment Upcoming Encounters Date Type Department Care Team (Late st Contact Info) Description 03/07/2025 10:15 AM EDT Office Visit [facility] [address] [place] [address] Name, MD Nolan [address] [place] [address] documented as of this encounter Visit Diagnoses Not on filedocumented in this encounter Additional Health Concerns Assessment Noted Time PHQ-9 Depression Total Score: 7 04/18/20 23 10:20 AM EDT documented as of this encounter Care Teams Garage Door Opener Installer Relationship Specialty Start Date End Date Name, MD Nolan [address] [place] [address] PCP - General Family Medicine 06/13/18 documented as of this encounter
--- OUTSIDE RECORDS SUMMARY | 2024-12-29 08:46 | XMS_ITS | Encounter Summary ---
Author Organization [employer] Address [address] [facility] [address] [place] [address] Care Team Providers Care Delivery Engineer Name Role Phone Name, Noaln PADILLA Primary Care Provider [phone] Reason for Visit * Reason Onset Date Comments Med Refill 07/03/2024 Encounter Details Date Type Department Care Team (Late st Contact Info) Description 07/03/2024 Telephone [facility] MED[facility] [address] [place], [place] [phone] Name, MD Nolan [address] [place] [address] Med Refill Social History Tobacco Use Types [...] 20 MG tablet To be sent to: [facility] - [place], [place] - [address] [place] [address] documented in this encounter Plan of Treatment Upcoming Encounters Date Type Department Care Team ([facility] st Contact Info) Description 03/07/2025 10:15 AM EDT Office Visit [facility] MED[facility]INE [address] [place] [address] Name, MD Nolan [address] [place] [address] documented as of this encounter Visit Diagnoses Not on filedocumented in this encounter Additional Health Concerns Assessment Noted Time PHQ-9 Depression Total Score: 7 04/18/20 10:20 AM EDT documented as of this encounter Care Teams Delivery Engineer Relationship Specialty Start Date End Date NameNolan MD [address] [place] [address] PCP - General Family Medicine 06/13/18 documented as of this encounter
--- OUTSIDE RECORDS SUMMARY | 2024-12-29 08:46 | XMS_ITS | Clinical Summary ---
Author Organization [employer] Address 75 [facility] 7t [place] [address] Care Team Providers Care Waste Baler Name Role Phone Name, Nolan PADILLA Primary Care Provider [phone] Allergies Active Allergy Reactions Criticality Noted Date [...] 023 Active ergocalciferol (Vitamin D2) 1.25 MG (60790 UT) capsule TAKE 1 CAPSULE BY MOUTH [...] complication, with long-term current use of insulin ([facility]) TEST BLOOD SUGAR ONCE DAILY 50 strip 11 024 Active aspirin (Aspirin Adult Low Strength) 81 MG EC tabletIndication s:Hypertension, unspecified type Take 1 tablet (81 mg) by mouth in the morning. 90 tablet 3 024 Active TRUEplus Lancets 33G miscIndications: Type 2 diabetes mellitus with other specified complication, with long-term current use of insulin ([facility]) TEST BLOOD SUGAR EVERY DAY DIRECTED 100 each 1 024 Active Lantus SoloStar 100 UNIT/ML penIndications:T ype 2 diabetes mellitus with other specified complication, with long-term current use of insulin ([facility]) Inject 30 Units under the skin at bedtime. Decrease to 20 units once she starts on Trulicity 3 mL 11 024 Active docusate sodium (Colace) 100 MG capsule TAKE 2 TABLETS BY MOUTH EVERY DAY AT BEDTIME 024 Active pen needle 31G x 6 mm miscIndications: Type 2 diabetes mellitus with hyperglycemia, without long-term current use of insulin ([facility]) USE DIRECTED TO INJECT INSULIN 100 each 025 Active Jardiance 10 MGIndications:Pr oteinuria due to type 2 diabetes mellitus ([facility]) ([facility]) TAKE 1 TABLET BY MOUTH EVERY MORNING 30 tablet 025 Active atorvastatin (Lipitor) 20 MG tabletIndication s:Diabetes mellitus type 2 in nonobese ([facility]) TAKE 1 TABLET BY MOUTH AT BEDTIME 90 tablet 1 025 Active Trulicity 0.75 MG/0.5ML solution auto-injector INJECT ONE PEN (=0.75MG) SUBCUTANEOUSLY ONCE A WEEK DIRECTED 2 mL 2 025 Active Alcohol Swabs (Alcohol Prep) 70 % padsIndications: Controlled diabetes mellitus type 2 with complications, unspecified whether fpc insulin use ([facility]) USE DIRECTED THREE TIMES DAILY 100 each [...] seek services. PLAN: 1. Follow up with [facility]: Not recommended for follow-up 2. Patient goal [...] seek services. PLAN: 1. Follow up with [facility]: Not recommended for follow-up 2. Patient goal is to engage in MH services 3. Behavioral Recommendations a. Ind. Therpay b. MEd. Management c. Use of coping skills provided. Cobalamin deficiency 06/21/2018 Type 2 diabetes mellitus 06/21/2018 Vitamin D deficiency 06/21/2018 Mood disorder 01/10/2018 Noncompliance with treatment 07/05/2017 Hypertension 10/31/2013 Encounters Date Type Department Care Team Description 12/23/2024 Refill [facility] [address] [place] [address] Nolan Blevins MD Depression, unspecified depression type; Diabetic polyneuropathy associated with type 2 diabetes mellitus ([facility]) 12/20/2024 Orders Only GENERIC EXTERNAL DATA DEPARTMENT Provider, Generic External Data 12/14/2024 Refill [facility] [address] [place] [address] Nolan Blevins MD Depression, unspecified depression type 12/12/2024 Refill [facility] [address] [place] [address] Cindy Lainez DO Depression, unspecified depression type 12/11/2024 Telephone [facility] [address] [place] [address] Elizabeth Perez, Terry 12/04/2024 Orders Only GENERIC EXTERNAL DATA DEPARTMENT Provider, Generic External Data 11/26/2024 Telephone [facility] [address] [place] [address] Heather Smith MA may recalls 11/22/2024 Population Health Risk Score [facility] ([facility]) Department [address] [place] [phone] Provider, Population Health Generic 11/21/2024 Refill [facility] [address] [place] [address] Nolan Blevins MD Diabetic polyneuropathy associated with type 2 diabetes mellitus ([facility]); Controlled diabetes mellitus type 2 with complications, unspecified whether meterman insulin use ([facility]); Mood disorder ([facility]) 11/21/2024 Refill [facility] [address] [place] [address] Monik Deshpande NP Mood disorder ([facility]) 11/12/2024 Telephone [facility] [address] [place] [address] Name, MD Nolan 11/12/2024 Orders Only GENERIC EXTERNAL DATA DEPARTMENT Provider, Generic External Data 11/08/2024 Refill [facility] [address] [place] [address] Nolan Blevins MD 10/22/2024 Refill [facility] PEDS [address] [place], [place] [phone] Justyna Manuel MD Diabetes mellitus type 2 in nonobese ([facility]); Depression, unspecified depression type; Diabetic polyneuropathy associated with type 2 diabetes mellitus ([facility]) 10/12/2024 Refill [facility] PED[facility] [address] [place], [place] [phone] Name, MD Nolan Proteinuria due to type 2 diabetes mellitus ([facility]) ([facility]) from Last 3 Months Immunizations Name Administration [...] Description 03/07/2025 10:15 AM EDT Office Visit [facility] [address] [place] [phone] Name, MD Nolan [address] [place] [address] Health Maintenance Due Date Last Done Comments [...] complication, with long-term current use of insulin ([facility]) LIPID PANEL, STANDARD Routine 11/14/2023 10:26 AM [...] included. Sodium 131(L) 135 - 145 mmol/L [facility] Potassium 5.0 3.3 - 5.1 mmol/L [facility] Chloride 104 96 - 108 mmol/L [facility] Carbon Dioxide 20(L) 22 - 29 mmol/L [facility] Anion Gap 12 12 - 20 [facility] Urea Nitrogen (BUN) 23(H) 9 - 16 mg/dL [facility] Creatinine, Serum 1.51(H) 0.5 - 1.4 mg/dL [facility] Estimated Glomerular Filt Rate 35 [facility] Comment:Chronic Kidney Disea se: Estimated GFR < 60 mL/min/[id number] Kidney Disease: Estimated GFR < 15 mL/min/1.73m2 Glucose 162(H) 60 - 115 mg/dL [facility] Calcium 9.0 8.4 - 10.2 mg/dL [facility] 12/20/2024 8:57 AM EDT 12/20/2024 9:01 AM EDT us Generic External Data Provider LAB BLOOD ORDERAB LES Final Result [facility] [address] [place] [phone] [phone] * VITAMIN D 25-OH (D2 AND D3) (12/04/2024 10:00 AM EDT) Vitamin D, 25-OH, D2 21 ng/mL [facility] Comment:This test was develo ped and its analytical performancecharacteristics have been determined by [employer] [place], [place]. It hasnot been cleared or approved by the U.S. Food and DrugAdministration. This assay has been validated pursuantto the CLIA regulations and is used for clinicalpurposes.THIS TEST WAS PERFORMED AT:[id number] [place] [id number] DENG MD,PHD Vitamin D, 25-OH, D3 12 ng/mL [facility] Comment:This test was develo ped and its analytical performancecharacteristics have been determined by [employer] [place], [place]. It hasnot been cleared or approved by the U.S. Food and DrugAdministration. This assay has been validated pursuantto the CLIA regulations and is used for clinicalpurposes. Vitamin D, 25-OH, Total 33 30 - 100 ng/mL [facility] Comment:Vitamin D, 25-Hydrox y reports [...] = 30 ng/mL.For additional information, please refer tohttp://education.StartForce/faq/QJV138(This link is being provided for informational/educational purposes only.) 12/04/2024 10:0 0 AM EDT 12/04/2024 10:00 AM EDT us Generic External Data Provider LAB BLOOD ORDERAB LES Final Result Performing Organization Address City/[facility]/ZIP Co de Phone Number [facility] [address] [place] [phone] * Vitamin B12 (Cobalamin) and Folate Panel, Serum (12/04/2024 10:00 AM EDT) Vitamin B12 392 200 - 900 pg/mL [facility] Comment:NORMAL 200-900 PG/ML INDETERMINATE 160-199 PG/ML DEFICIENT < 160 PG/ML Folate 5.9 > or = 4.0 ng/mL [facility] Comment:Reference Values:> o r = 4.0 ng/mL< 4.0 ng/mL suggests folate deficiency Methotrexate, aminopterin and folinic acid(leucovorin) are chemotherapeutic agents whose molecularstructures are similar to folate; therefore, the Architectfolate assay cannot be used for patients using these drugs. 12/04/2024 10:0 0 AM EDT 12/04/2024 10:00 AM EDT us Generic External Data Provider LAB BLOOD ORDERAB LES Final Result Performing Organization Address [facility] Co de Phone Number [facility] [address] [place] [phone] * TSH with Reflex to Free T4 (12/04/2024 10:00 AM EDT) TSH reflex Free T4 1.37 0.32 - 4.0 uIU/mL [facility] 12/04/2024 10:0 0 AM EDT 12/04/2024 10:00 AM EDT us Generic External Data Provider LAB BLOOD ORDERAB LES Final Result Performing Organization Address City/[facility]/ZIP Co de Phone Number [facility] [address] [place] [phone] * Tissue Transglutaminase Antibody, IgA (12/04/2024 10:00 AM EDT) Pathologist [facility] Transglutaminase IgA <1.0 U/mL [facility] Comment:Value Interpretation ----- <15.0 Antibody not detected> or = 15.0 Antibody detectedTHIS TEST WAS PERFORMED AT:[facility] [place] [id number] ALFREDO WORTHINGTON MD 12/04/2024 10:0 0 AM EDT 12/04/2024 10:00 AM EDT Generic External Data Provider LAB BLOOD ORDERAB LES Final Result Performing Organization Address [facility]/ZIP Co de Phone Number [facility] [address] [place] [phone] * Lipase (12/04/2024 10:00 AM EDT) [facility] Lipase 26 8 - 78 U/L [facility] 12/04/2024 10:0 0 AM EDT 12/04/2024 10:00 AM EDT Generic External Data Provider LAB BLOOD ORDERAB LES Final Result Performing Organization Address [facility] Co de Phone Number [facility] [address] [place] [phone] * (ABNORMAL) Hepatic Function Panel (12/04/2024 10:00 AM EDT) Pathologist [facility] Bilirubin, Total 0.2 0.0 - 1.0 mg/dL [facility] Bilirubin, Direct <0.2 0.0 - 0.5 mg/dL [facility] Aspartate Amino Transferase 19 5 - 31 U/L [facility] Comment:Slight Hemolysis.Int erpret result with caution. Alanine Aminotransferase 11 0 - 31 U/L [facility] Total Protein 7.7 6.5 - 8.0 g/dL [facility] Albumin Level 4.0 3.5 - 5.0 g/dL [facility] Alkaline Phosphatase 196(H) 39 - 117 U/L [facility] 12/04/2024 10:0 0 AM EDT 12/04/2024 10:00 AM EDT us Generic External Data Provider LAB BLOOD ORDERAB LES Final Result [facility] [address] [place] [phone] * (ABNORMAL) POCT HGB A1C (08/22/2024 10:00 AM EST) Hemoglobin A1C 9.7(A) 4.0 - 6.0 % QC Media Lot # [id number] Lot# Expiration Date ,[id number] Blood 08/22/2024 10:0 0 AM EST us Nolan Name POINT OF CARE TEST ENTER/EDIT OR DERABLES Final Result * Lipid Panel, Standard (11/14/2023 10:26 AM EST) Triglycerides 126 <150 mg/dL [facility] Comment:Desirable Triglyceri de: less than 150 mg/dLBorderline High Triglyceride 150-199 mg/dLHigh Triglyceride: 200-499 mg/dLVery High Triglyceride: greater than or equal to 5OO mg/dL Cholesterol 149 <200 mg/dL [facility] Comment:Desirable Cholestero l: less than 200 mg/dLBorderline High Cholesterol: 200-239 mg/dLHigh Cholesterol: greater than 239 mg/dL LDL Cholesterol Calculated 76 <100 mg/dL [facility] Comment:Desirable LDL: less than 100 mg/dLNear Optimal/Above Optimal LDL: 110- 129 mg/dLBorderline High LDL: 130-159 mg/dLHigh LDL: 160-189 mg/dLVery High LDL: greater than or equal to 190 mg/dL HDL Cholesterol 48 >40 mg/dL [facility] Comment:Desirable HDL: great er than 40 mg/dL Note: This HDL assay may give artificially low results in patients with liver disease. Blood Venous blood specimen / Unknown 11/14/2023 10:26 AM EST 11/14/2023 2:10 PM EST Nolan Blevins MD LAB BLOOD ORDERABLES Final Resul t [facility] [address] [place] [phone] * HEPATITIS C AB W/REFL TO HCV RNA, QN, PCR (11/13/2020 2:31 PM EST) HEPATITIS C ANTIBODY NON-REACT [place] NON-REACT [place] [facility] INDEX 0.01 <1.00 [facility] Comment: ?? HCV antibody was non-reactive. There is no laboratory ?? evidence of HCV infection. ?? In most cases, no further action is required. However, if recent HCV exposure is suspected, a test for HCV RNA (test code 82012) is suggested. ?? For additional information please refer to http://education.Reedsy/faq/TSA89w4 (This link is being provided for informational/ educational purposes only.) ?? 11/13/2020 2:31 PM EST Stefany Griffiths MD HISTORICAL/NON ORDERABLE LABS Final Result Performing Organization Address City/[facility] Co de Phone Number [facility] [address] * DIGITAL BILATERAL SCREEN 1 (06/22/2018 [...] Eye Exam (04/20/2012) Eye Exam Normal Normal [facility] External Provider HEALTH MAINTENANCE Final Result from Last 3 Months or Most Recently Relevant to Health Maintenance [facility] Care Teams Waste Baler Relationship Specialty Start Date End Date Name, MD Nolan [address] [place] [address] PCP - General Family Medicine 06/13/18
--- OUTSIDE RECORDS SUMMARY | 2024-12-29 08:46 | XMS_ITS | Encounter Summary ---
Author Organization [employer] Address 75 [facility] 7t [place] [address] Care Team Providers Care Automobile Spring Repairer Name Role Phone Name, Nolan PADILLA Primary Care Provider [phone] Reason for Visit * Reason Onset Date Comments Nurse Triage 07/27/2023 Encounter Details Date Type Department Care Team (Late st Contact Info) Description 07/27/2023 Telephone [facility] [address] [place], [place] [phone] Name, MD Nolan [address] [place] [address] Nurse Triage Social History Tobacco Use Types [...] t he electric, gas, oil or water [employer] threatened to shut off services in your [...] - 07/27/2023 4:38 PM EST T/C to [phone] to daughter for below message, daughter verbally [...] acuity questions The caller accepted this outcome [employer] documented in this encounter Plan of Treatment Upcoming Encounters Date Type Department Care Team (Late st Contact Info) Description 03/07/2025 10:15 AM EDT Office Visit [facility] [address] [place] [phone] Name, MD Nolan [address] [place] [address] documented as of this encounter Visit Diagnoses Not on filedocumented in this encounter Additional Health Concerns Assessment Noted Time PHQ-9 Depression Total Score: 7 04/18/20 23 10:20 AM EDT documented as of this encounter Care Teams Automobile Spring Repairer Relationship Specialty Start Date End Date Name, MD Nolan [address] [place] [phone] PCP - General Family Medicine 06/13/18 documented as of this encounter
--- OUTSIDE RECORDS SUMMARY | 2024-12-29 08:46 | XMS_ITS | Encounter Summary ---
Author Organization [employer] Address 75 [facility] [address]t [place] [address] Care Team Providers Care External Auditor Name Role Phone Name, Nolan PADILLA Primary Care Provider [phone] Reason for Visit * Reason Comments Med Refill Encounter Details Date Type Department Care Team (Late st Contact Info) Description 08/23/2024 Refill [facility] MED & PEDS [address] [place], [place] [phone] Name, MD Nolan [address] [facility] [place] [address] Diabetic polyneuropathy associated with type 2 diabetes [...] Description 03/07/2025 10:15 AM EDT Office [facility] [address] [place] [phone] NameNolan MD [address] [place] [address] documented as of this encounter Visit Diagnoses Diagnosis Diabetic polyneuropathy associated with type 2 diabetes mellitus ([facility]) documented in this encounter Additional Health Concerns Assessment Noted Time PHQ-9 Depression Total Score: 7 04/18/20 23 10:20 AM EDT documented as of this encounter Care Teams External Auditor Relationship Specialty Start Date End Date Nolan Blevins MD [address] [place] [phone] PCP - General Family Medicine 06/13/18 documented as of this encounter
--- OUTSIDE RECORDS SUMMARY | 2024-12-29 08:46 | XMS_ITS | Encounter Summary ---
Author Organization [employer] Address 75 [facility] 7t [place] [address] Care Team Providers Care Brewery Pumper Name Role Phone Name, Nolan PADILLA Primary Care Provider [phone] Reason for Visit * Reason Comments Med Refill Encounter Details Date Type Department Care Team ([facility] st Contact Info) Description 08/23/2024 Refill [facility] MED & PEDS [address] [place], [place] [phone] Justyna Manuel MD [address] [place], [place] [phone] Depression, unspecified depression type; Diabetes mellitus type [...] 10:15 AM EDT Office Visit [facility] [address] [place] [phone] Name, MD Nolan [address] [place] [address] documented as of this encounter Visit Diagnoses Diagnosis Depression, unspecified depression type Diabetes mellitus type 2 in nonobese ([facility]) Type II or unspecified type diabetes mellitus without mention of complication, not stated as uncontrolled documented in this encounter Additional Health Concerns Assessment Noted Time PHQ-9 Depression Total Score: 7 04/18/20 23 10:20 AM EDT documented as of this encounter Care Teams Brewery Pumper Relationship Specialty Start Date End Date Name, MD Nolan [address] [place] [phone] PCP - General Family Medicine 06/13/18 documented as of this encounter
--- OUTSIDE RECORDS SUMMARY | 2024-12-29 08:46 | XMS_ITS | Encounter Summary ---
Author Organization [employer] Address 75 [facility] 7t [place] [address] Care Team Providers Care Structural Drafter Name Role Phone Name, Nolan PADILLA Primary Care Provider [phone] Reason for Visit * Reason Comments Med Refill Encounter Details Date Type Department Care Team (Late st Contact Info) Description 09/21/2023 Refill [facility] [address] [place], [place] [phone] Name, MD Nolan [address] [facility] [place] [address] Hypertension, unspecified type Social History Tobacco Use [...] Description 03/07/2025 10:15 AM EDT Office Visit [facility] [address] [place] [address] Name, MD Nolan [address] [place] [address] documented as of this encounter Visit Diagnoses Diagnosis Hypertension, unspecified type documented in this encounter Additional Health Concerns Assessment Noted Time PHQ-9 Depression Total Score: 7 04/18/20 23 10:20 AM EDT documented as of this encounter Care Teams Structural Drafter Relationship Specialty Start Date End Date Name, MD Nolan [address] [place] [phone] PCP - General Family Medicine 06/13/18 documented as of this encounter
[2024-12-29] MEDS: cefTRIAXone sodium 1 GM VIAL IVPUSH (08:48)
[2024-12-29 08:51] LABS: MANUAL DIFF FLAG NO
[2024-12-29 08:55] LABS: Basophils Percent Auto 0.2 % (0-2); Eosinophils Absolute Auto 0.1 X10*3/uL (0.0-0.4); Eosinophils Percent Auto 0.5 % (0-4); Hematocrit 33.6 % (37.0-47.0); Hemoglobin 11.1 g/dl (12.0-16.0); Imm Gran Abs Auto 0.13 X10*3/uL (0.00-0.03); Imm Gran Pct Auto 0.6 % (0.0-0.4); Lymphocytes Absolute Auto 1.1 X10*3/uL (1.2-4.9); Lymphocytes Percent Auto 5.2 % (20-40); Mean Corpuscular Volume 87.7 fL (80.0-98.0); Mean Platelet Volume 10.2 fL (9.4-12.3); Monocytes Absolute Auto 1.2 X10*3/uL (0.1-1.2); Monocytes Percent Auto 5.8 % (2-11); Neutrophils Absolute Auto 18.3 x10*3/uL (2.0-8.3); Neutrophils Percent Auto 87.7 % (45-73); Platelet Count 406 X10*3/uL (160-400); Red Blood Count 3.83 X10*6/uL (4.20-5.50); Red Cell Distribution Width 14.9 % (11.0-16.0); White Blood Count 20.9 X10*3/uL (4.8-10.8)
[2024-12-29 09:06] LABS: INTERNATIONAL NORM RATIO 1.2 (0.9-1.1); Prothrombin Time 13.5 SEC (10.9-12.4)
[2024-12-29 09:09] LABS: Partial Thromboplastin Time 35.3 SEC (26.0-36.8); Stroke Lab Use COMPLETE
[2024-12-29 09:11] LABS: Anion Gap 18 (12-20); Bilirubin Total 0.5 mg/dL (0.0-1.0); Blood Urea Nitrogen 39 mg/dL (9-16); Calcium 9.1 mg/dL (8.4-10.2); Carbon Dioxide 9 mmol/L (22-29); Chloride 105 mmol/L (96-108); Cholesterol 142 mg/dL (<200); Creatinine Clr Calc Pharmacy 27.5; Estimated Glomerular Filt Rate 26; Glucose Random 296 mg/dL (60-115); HDL Cholesterol 45 mg/dL (>40); LDL Cholesterol Calculated 78 mg/dL (<100); Potassium 4.8 mmol/L (3.3-5.1); Sodium 127 mmol/L (135-145); Triglycerides 96 mg/dL (<150)
[2024-12-29 09:14] LABS: Lactic Acid 3.7 mmol/L (0.5-2.0)
[2024-12-29 09:21] LABS: Troponin-I High Sensitivity < 2.7 ng/L (<3.5-17.0)
[2024-12-29 09:45] LABS: Appearance Urine Hazy; Color Urine DK YELLOW; Glucose Urine UA 500 mg/dL (Negative); Leukocyte Esterase Urine Trace (Negative); PH 5.5 (5.0-9.0); Specific Gravity - Urine 1.025 (1.005-1.025); UMIC TRIGGER UACC YES; Urine Blood Small (1+) (Negative); Urine Ketones Trace mg/dL (Negative); Urine Protein 30 (1+) mg/dL (Neg-Trace)
[2024-12-29 09:46] LABS: Nitrite Urine Negative (Negative)
[2024-12-29 10:02] LABS: Bacteria Urine None Seen (None Seen); Hyaline Casts Urine >20 /LPF (0-2); Squamous Epithelial Cell Urine >20 /HPF (0-2); UACC Culture Trigger YES; WBC Urine 21-50 /HPF (0-5)
--- NOTE | 2024-12-29 10:28 | PC.NURSE ---
pt hypotensive. . Yasmeen MCGREGOR notified. awaiting further orders.
[2024-12-29] MEDS: Albumin Human 25 % 100 ML 133.33 ML IV (10:33)
[2024-12-29 10:50] LABS: Reflex Lactate? Lactic Acid Added
--- NOTE | 2024-12-29 11:08 | PC.NURSE ---
Report received from AMISH Anand. Taken over care at this time.
[2024-12-29] MEDS: Albumin Human 25 % 100 ML 1333.33 ML IV (11:29)
[2024-12-29] MEDS: 0.9 % Sodium Chloride 500 ML 999 ML IV (11:48)
[2024-12-29] MEDS: Doxycycline Hyclate 100 MG in 0.9 % Sodium Chloride 250 ML 166.67 MG IV (11:51)
[2024-12-29 11:54] LABS: ~Lactic Acid-LAB USE ONLY 3.8 mmol/L (0.5-2.0)
[2024-12-29 13:17] LABS: Reflex Lactate? 2 Y
--- NOTE | 2024-12-29 13:30 | PC.NURSE ---
Spoke to Yasmeen, care provider about pt's b/p and pt. coughing up phlegm. Provider to order IVF.
[2024-12-29 13:59] LABS: ~Lactic Acid-LAB USE ONLY 3.7 mmol/L (0.5-2.0)
[2024-12-29] MEDS: Midodrine HCl 10 MG TABLET PO (14:54)
[2024-12-29 16:32] LABS: Venous Blood Gas Refer to POC result
[2024-12-29 16:32] LABS: VBG Base Excess -17.1 mmol/L; VBG HCO3 10 mmol/L (22-26); VBG pCO2 28 mmHg; VBG pH 7.15 (7.32-7.43); VBG pO2 42 mmHg
[2024-12-29 16:53] LABS: B Type Natriuretic Peptide 244 pg/mL (<100)
--- NOTE | 2024-12-29 16:58 | PC.NURSE ---
Awaiting IVF from pharmacy.
[2024-12-29 17:00] LABS: Anion Gap 16 (12-20); Blood Urea Nitrogen 41 mg/dL (9-16); Carbon Dioxide 8 mmol/L (22-29); Chloride 112 mmol/L (96-108); Creatinine Clr Calc Pharmacy 33.4; Estimated Glomerular Filt Rate 33; Glucose Random 189 mg/dL (60-115); Potassium 4.6 mmol/L (3.3-5.1); Sodium 131 mmol/L (135-145)
[2024-12-29 17:01] LABS: Alanine Aminotransferase 7 U/L (0-31); Albumin Level 3.7 g/dL (3.5-5.0); Alkaline Phosphatase 110 U/L (39-117); Anion Gap 15 (12-20); Aspartate Amino Transferase 17 U/L (5-31); Bilirubin Total 0.4 mg/dL (0.0-1.0); Blood Urea Nitrogen 42 mg/dL (9-16); Calcium 8.2 mg/dL (8.4-10.2); Carbon Dioxide 9 mmol/L (22-29); Chloride 111 mmol/L (96-108); Creatinine Clr Calc Pharmacy 32.8; Estimated Glomerular Filt Rate 32; Glucose Random 190 mg/dL (60-115); Potassium 4.4 mmol/L (3.3-5.1); Sodium 131 mmol/L (135-145); Total Protein 6.3 g/dL (6.5-8.0)
--- NOTE | 2024-12-29 17:01 | PC.NURSE ---
Took critical lab of CO8 & CO2 from 2 different lab testings, primary Rn Heaven made aware.
[2024-12-29] MEDS: Sodium Bicarbonate 8.4% 150 MEQ in Dextrose 5 % 850 ML 75 MEQ IV (17:12)
--- NOTE | 2024-12-29 17:29 | PC.NURSE ---
Informed Yasmeen, Provider that pt. has critical value of co2- 8, was retested and resulted at 9.
[2024-12-29 18:20] LABS: Beta-Hydroxybutyrate 0.07 mmol/L (0.02-0.27)
--- NOTE | 2024-12-29 19:01 | P.HPHOSP_ITS ---
History of Present Illness Date of Service: 12/29/24 Attending physician on admission: Amanda Turner Chief Complaint: Fall at home Pt is a 59-year-old Pashto-speaking female with a PMH significant for insulin- dependent type 2 diabetes, HTN, HLD, peripheral neuropathy, CKD 3, chronic constipation, and GERD?who presents to the ED for evaluation of generalized weakness and falls at home. Pt is a vague and poor historian, reports that she is in the hospital because she felt ?ill? and weak, though is unable to further specify any acute complaints. Family at bedside note that pt has had abdominal discomfort and constipation for the past few days. Last night pt apparently felt weak and dizzy especially with exertion or position changes. This morning family reports pt was weak and continued to be lightheaded and dizzy, falling up to 3 times, twice in the home and once more while leaving the house to come to the hospital. Notes that pt has had episodes of low blood pressure for the past 3-4 months. Had significant episode around 1 month ago where she fell and could not stand up. Unclear if pt was evaluated at that time, but she apparently often refuses to come to the ED for evaluation. Family also note she has had foul-smelling urine for the past few days. Family state pt is sometimes slow to respond to queries and currently appears around baseline mentation. Family also notes that pt began coughing a few hours after presentation to the ED. Prior to this did not have any significant SOB or cough. In triage pt was noted to be hypotensive at 66/38 and apparently having difficulty following commands. Pt was given sepsis bolus fluids with temporary improvement to BP, though it?fell again as low as 88/63. Pt then was given albumin again with temporary improvement to BP. When pt became hypotensive again ICU was consulted who did bedside echo and then had pt receive additional IVF. Patient's BP dipped again while on maintenance fluids, and pt was noted to have a new wet sounding cough. IVF was stopped due to concerns for fluid overload and ICU was consulted again who suggested giving midodrine. Patient's BP then stabilized. Additional labs were obtained that indicated pt had VBG pH of 7.15 and continued bicarb of 9. ICU was again consulted who did not feel that pt was a candidate for critical care. Consulted nephrology and pt was started on a bicarb drip at 125 mls/h. In the ED pt was afebrile, but tachycardic up to 113, tachypneic up to 22, hypotensive as low as 66/38, and satting 98% on RA. Labs were significant for leukocytosis of 20.9, sodium 127, bicarb 9, random glucose 296, initial lactic acid 3.7 with repeat 3.8 and 3.7, and BNP 244. H&H stable at baseline. Creatinine 1.93 with repeat 1.62, at baseline. Hepatic function WNL. Beta hydroxybutyrate WNL. VBG pH 7.15 with pCO2 28 and bicarb 10. UA with question of contamination vs acute infection. CXR showed bilateral predominantly interstitial opacities either cardiogenic or pneumonic. Repeat CXR concerning for mild degree of interstitial edema vs interstitial infiltrates. CTA of head and cervical spine negative for acute abnormalities. CT of abdomen/pelvis negative for acute abdomen, though did show mild diffuse fecal impaction particularly in distal colon. EKG demonstrated normal sinus rhythm without evidence of significant ST elevations or depressions. Pt was treated in the ED with sepsis bolus fluids, albumin, midodrine, ceftriaxone, doxycycline, and started on bicarb drip. Pt is admitted to the hospital for treatment and further evaluation of hypotension and acute metabolic acidosis in the setting of severe sepsis secondary to UTI vs pneumonia. Review of Systems 2 Review of Systems: Negative except for that which is stated HPI. [facility] Medical History Dysphagia Anxiety disorder GERD (gastroesophageal reflux disease) Migraines Asthma On beta jordyn at home Elevated cholesterol HTN (hypertension) Smoker Diabetes Depression Heartburn Surgical History Hx of left knee surgery History of tubal ligation History of esophagogastroduodenoscopy (EGD) H/O colonoscopy Hx of cholecystectomy Social History Household Members: Family Housing: Apartment Alcohol intake: former Patient Tobacco Use Status: Current everyday Tobacco user Tobacco use type: Cigarette Cigarettes Per Day: 6 Smoked in Last 30 Days: Yes Second Hand Smoke Exposure: Yes Advance Directives: No Advance Directives Information Provided: Yes Do you have a plan to hurt others: No Plan service: No Current occupational status: disabled Meds Allergies Allergy/AdvReac Type Severity Reaction Status Date / Time iron Allergy Mild UNKNOWN Verified 12/29/24 08:22 Iodinated Contrast Media Allergy Unknown UNKNOWN Verified 12/29/24 08:22 [IV Dye, Iodine Containing] iodine [IODINE] Allergy Unknown RASH Verified 12/29/24 08:22 seafood Allergy Unknown Unknown Verified 12/29/24 08:22 Active Medications: Current Medications Acetaminophen (Acetaminophen 325 Mg Tablet) 650 mg PO Q6H PRN PRN Reason: Pain, Mild 1-3,fever,headache Calcium Carbonate (Calcium Carbonate 750 Mg Tab.Chew) 750 mg PO Q4H PRN PRN Reason: Heartburn Ceftriaxone Sodium (Ceftriaxone Sodium 1 Gm Vial) 1 gm IVPUSH Q24H [facility] Dextrose (Dextrose 50 % 25 Gm/50 Ml Syringe) 25 gm IVPUSH Q15M PRN; Protocol PRN Reason: per Hypoglycemia Standing Ord. Glucose (Glucose Gel 15 Gm Gel..Gram.) 15 gm PO Q15M PRN; Protocol PRN Reason: per Hypoglycemia Standing Ord. Sodium Bicarbonate 150 meq/ (Dextrose) 1,000 mls @ 125 mls/hr IV .Q8H [facility] Last Admin: 12/29/24 17:12 Dose: 75 mls/hr Doxycycline Hyclate 100 mg/ (Sodium Chloride) 250 mls @ 166.67 mls/hr IV Q12H [facility] Insulin Human Lispro (Insulin Lispro 100 Unit/Ml 3 Ml Vial) 0 unit SUBCUT QIDACHS [facility]; Protocol Magnesium Hydroxide (Milk Of Magnesia 30 Ml Oral.Susp) 30 ml PO DAILY PRN PRN Reason: Constipation Melatonin (Melatonin 3 Mg Tablet) 6 mg PO BEDTIME PRN PRN Reason: Insomnia Sodium Chloride (0.9 % Sodium Chloride Flush 3 Ml Syringe) 3 ml IVFLUSH QSHIFT [facility] Home Medications ?Medication ?Instructions ?Recorded ?Confirmed ?Last Taken ?Type aspirin 81 mg tablet,delayed 81 mg PO DAILY 04/21/22 12/26/24 05/19/23 History release atorvastatin 20 mg tablet 20 mg PO BEDTIME 04/21/22 12/26/24 05/19/23 History benztropine 0.5 mg tablet 0.5 mg PO BID 04/21/22 12/26/24 05/19/23 History fluoxetine 10 mg capsule 10 mg PO DAILY 04/21/22 12/26/24 05/19/23 History insulin syringe-needle U-100 0.5 #10 ea 04/21/22 12/26/24 Unknown History mL 30 gauge x 1/2 (UltiCare) metoprolol succinate 50 mg 50 mg PO DAILY 04/21/22 12/26/24 05/19/23 History tablet,extended release 24 hr mirtazapine 7.5 mg tablet 7.5 mg PO BEDTIME 04/21/22 12/26/24 05/19/23 History ergocalciferol (vitamin D2) 1,250 1 cap PO GUERRA@0900 05/06/22 12/26/24 05/14/23 History mcg (50,000 unit) capsule haloperidol 5 mg tablet 1 tab PO BID 05/06/22 12/26/24 05/19/23 History ijhnkuaa-vnhz-blwx 8 mg-folic 400 1 tab PO DAILY 05/20/23 12/26/24 05/19/23 History mcg-K 50 mcg-lutein 300 mcg tablet (Centrum Silver Women) prazosin 2 mg capsule 4 mg PO BEDTIME 05/20/23 12/26/24 05/19/23 History gabapentin 100 mg capsule 100 mg PO BEDTIME 05/30/24 12/26/24 Unknown History insulin glargine 100 unit/mL (3 20 unit subcut QPM 08/27/24 12/26/24 Unknown History mL) subcutaneous pen (Lantus Solostar U-100 Insulin) dulaglutide 0.75 mg/0.5 mL mg subcut QWEEK 11/14/24 12/26/24 Unknown History subcutaneous pen injector (Trulicity) empagliflozin 10 mg tablet 10 mg PO QAM 11/14/24 12/26/24 Unknown History (Jardiance) alcohol swabs (Alcohol Prep Pads) pad topical TID 12/04/24 12/26/24 Unknown History blood sugar diagnostic (FreeStyle #10 ea 12/04/24 12/26/24 Unknown History Lite Strips) lancets 33 gauge (TRUEplus Lancets) #100 ea 12/04/24 12/26/24 Unknown History losartan 50 mg tablet 50 mg PO QAM 12/04/24 12/26/24 Unknown History pen needle, diabetic 31 gauge x #100 ea 12/04/24 12/26/24 Unknown History 1/4 (Easy Touch) Physical Exam 2 Vital Signs and Narrative: Vital Signs: Last Vital Signs Temp 97.5 F 12/29/24 09:25 Pulse 110 H 12/29/24 17:00 Resp 18 12/29/24 17:00 BP 117/64 12/29/24 17:00 Pulse Ox 94 12/29/24 17:00 O2 Del Method Room Air 12/29/24 16:30 BMI result Body Mass Index 22.5 General: Alert and oriented to self and time, but not to specific place (know she is in the hospital but not which one), nor to situation. In no acute distress Resp: Wet-sounding cough. Bilateral crackles in mid-lungs. Some diaphoretic breathing. CVS: S1, S2, RRR GI: +BS, NT, no distention Skin: Warm, dry Neuro: Cranial nerves II-XII grossly intact bilaterally. Motor grossly intact bilaterally Extremities: No edema Psych: Appears slightly confused, though answers appropriately. Results Labs 12/29/24 08:46 12/29/24 20:12 Labs: Laboratory Results - last 24 hr 12/29/24 12/29/24 12/29/24 08:46 08:47 08:53 MCV 87.7 MCH 29.0 MCHC 33.0 RDW 14.9 Plt Count 406 H D MPV 10.2 Immature Gran % (Auto) 0.6 H Neut % (Auto) 87.7 H Lymph % (Auto) 5.2 L [place] % (Auto) 5.8 Eos % (Auto) 0.5 Baso % (Auto) 0.2 Lymph # (Auto) 1.1 L [place] # (Auto) 1.2 Eos # (Auto) 0.1 Baso # (Auto) 0.0 Abs Immat Gran (auto) 0.13 H Absolute Neuts (auto) 18.3 H Absolute Nucleated RBC 0.000 Nucleated RBC % (auto) 0.0 PT 13.5 H INR 1.2 H APTT VBG pH VBG pCO2 VBG pO2 VBG HCO3 VBG O2 Saturation VBG Base Excess Anion Gap 18 Estim Creat Clear Calc 27.5 Estimated GFR 26 Random Glucose 296 H Lactic Acid 3.7 H* Lactic Acid F/U @ 2Hr Lactic Acid F/U @ 4Hr Calcium 9.1 Total Bilirubin 0.5 AST ALT Alkaline Phosphatase Total Creatine Kinase B-Natriuretic Peptide Total Protein Albumin Triglycerides 96 Cholesterol 142 LDL Cholesterol, Calc 78 HDL Cholesterol 45 Beta-Hydroxybutyrate Urine Color Urine Appearance Urine pH Ur Specific [place] Urine Protein Urine Glucose (UA) Urine Ketones Urine Blood Urine Nitrite Ur Leukocyte Esterase Urine RBC Urine WBC Ur Squamous Epith Cells Urine Bacteria Hyaline Casts Blood Type Cancelled Rho(D) Type Cancelled Antibody Screen Cancelled 12/29/24 12/29/24 12/29/24 08:54 09:21 11:15 MCV MCH MCHC RDW Plt Count MPV Immature Gran % (Auto) Neut % (Auto) Lymph % (Auto) [place] % (Auto) Eos % (Auto) Baso % (Auto) Lymph # (Auto) [place] # (Auto) Eos # (Auto) Baso # (Auto) Abs Immat Gran (auto) Absolute Neuts (auto) Absolute Nucleated RBC Nucleated RBC % (auto) PT INR APTT 35.3 D VBG pH VBG pCO2 VBG pO2 VBG HCO3 VBG O2 Saturation VBG Base Excess Anion Gap Estim Creat Clear Calc Estimated GFR Random Glucose Lactic Acid Lactic Acid F/U @ 2Hr 3.8 H* Lactic Acid F/U @ 4Hr Calcium Total Bilirubin AST ALT Alkaline Phosphatase Total Creatine Kinase B-Natriuretic Peptide Total Protein Albumin Triglycerides Cholesterol LDL Cholesterol, Calc HDL Cholesterol Beta-Hydroxybutyrate Urine Color DK YELLOW Urine Appearance Hazy Urine pH 5.5 Ur Specific [place] 1.025 Urine Protein 30 (1+) H Urine Glucose (UA) 500 H Urine Ketones Trace Urine Blood Small (1+) H Urine Nitrite Negative Ur Leukocyte Esterase Trace H Urine RBC 11-20 H Urine WBC 21-50 H Ur Squamous Epith Cells >20 Urine Bacteria None Seen Hyaline Casts >20 Blood Type Rho(D) Type Antibody Screen 12/29/24 12/29/24 12/29/24 13:31 16:18 16:18 MCV MCH MCHC RDW Plt Count MPV Immature Gran % (Auto) Neut % (Auto) Lymph % (Auto) [place] % (Auto) Eos % (Auto) Baso % (Auto) Lymph # (Auto) [place] # (Auto) Eos # (Auto) Baso # (Auto) Abs Immat Gran (auto) Absolute Neuts (auto) Absolute Nucleated RBC Nucleated RBC % (auto) PT INR APTT VBG pH VBG pCO2 VBG pO2 VBG HCO3 VBG O2 Saturation VBG Base Excess Anion Gap 16 15 Estim Creat Clear Calc 33.4 Estimated GFR Random Glucose Lactic Acid Lactic Acid F/U @ 2Hr Lactic Acid F/U @ 4Hr 3.7 H* Calcium Total Bilirubin AST ALT Alkaline Phosphatase Total Creatine Kinase B-Natriuretic Peptide Total Protein Albumin Triglycerides Cholesterol LDL Cholesterol, Calc HDL Cholesterol Beta-Hydroxybutyrate Urine Color Urine Appearance Urine pH Ur Specific [place] Urine Protein Urine Glucose (UA) Urine Ketones Urine Blood Urine Nitrite Ur Leukocyte Esterase Urine RBC Urine WBC Ur Squamous Epith Cells Urine Bacteria Hyaline Casts Blood Type Rho(D) Type Antibody Screen 12/29/24 12/29/24 12/29/24 16:18 16:18 16:18 MCV MCH MCHC RDW Plt Count MPV Immature Gran % (Auto) Neut % (Auto) Lymph % (Auto) [place] % (Auto) Eos % (Auto) Baso % (Auto) Lymph # (Auto) [place] # (Auto) Eos # (Auto) Baso # (Auto) Abs Immat Gran (auto) Absolute Neuts (auto) Absolute Nucleated RBC Nucleated RBC % (auto) PT INR APTT VBG pH VBG pCO2 VBG pO2 VBG HCO3 VBG O2 Saturation VBG Base Excess Anion Gap Estim Creat Clear Calc 32.8 Estimated GFR 33 32 Random Glucose 189 H 190 H Lactic Acid Lactic Acid F/U @ 2Hr Lactic Acid F/U @ 4Hr Calcium 8.0 L D Total Bilirubin AST ALT Alkaline Phosphatase Total Creatine Kinase B-Natriuretic Peptide Total Protein Albumin Triglycerides Cholesterol LDL Cholesterol, Calc HDL Cholesterol Beta-Hydroxybutyrate Urine Color Urine Appearance Urine pH Ur Specific [place] Urine Protein Urine Glucose (UA) Urine Ketones Urine Blood Urine Nitrite Ur Leukocyte Esterase Urine RBC Urine WBC Ur Squamous Epith Cells Urine Bacteria Hyaline Casts Blood Type Rho(D) Type Antibody Screen 12/29/24 12/29/24 16:18 16:23 MCV MCH MCHC RDW Plt Count MPV Immature Gran % (Auto) Neut % (Auto) Lymph % (Auto) [place] % (Auto) Eos % (Auto) Baso % (Auto) Lymph # (Auto) [place] # (Auto) Eos # (Auto) Baso # (Auto) Abs Immat Gran (auto) Absolute Neuts (auto) Absolute Nucleated RBC Nucleated RBC % (auto) PT INR APTT VBG pH 7.15 L* VBG pCO2 28 VBG pO2 42 VBG HCO3 10 L VBG O2 Saturation 67.0 VBG Base Excess -17.1 Anion Gap Estim Creat Clear Calc Estimated GFR Random Glucose Lactic Acid Lactic Acid F/U @ 2Hr Lactic Acid F/U @ 4Hr Calcium 8.2 L Total Bilirubin 0.4 AST 17 ALT 7 Alkaline Phosphatase 110 Total Creatine Kinase 46 B-Natriuretic Peptide 244 H Total Protein 6.3 L Albumin 3.7 Triglycerides Cholesterol LDL Cholesterol, Calc HDL Cholesterol Beta-Hydroxybutyrate 0.07 Urine Color Urine Appearance Urine pH Ur Specific [place] Urine Protein Urine Glucose (UA) Urine Ketones Urine Blood Urine Nitrite Ur Leukocyte Esterase Urine RBC Urine WBC Ur Squamous Epith Cells Urine Bacteria Hyaline Casts Blood Type Rho(D) Type Antibody Screen Assessment and Plan (1) Metabolic acidosis: Status: Acute (2) Hypotension: Status: Acute Plan Pt is a 59-year-old Pashto-speaking female with a PMH significant for insulin- dependent type 2 diabetes, HTN, HLD, peripheral neuropathy, CKD 3, chronic constipation, and GERD?who presents to the ED for evaluation of generalized weakness and falls at home. Pt is admitted to the hospital for treatment and further evaluation of hypotension and acute metabolic acidosis in the setting of severe sepsis secondary to UTI vs pneumonia. Hypotension in the setting of severe sepsis Patient's BP as low as 66/38, has been variable throughout admission Pt has received sepsis bolus fluids (total of 2.5 L IVF), albumin, midodrine, and started on bicarb drip BP has been variable throughout admission, currently stabilized at 103/56 Pt meets severe sepsis criteria with leukocytosis, tachycardia, tachypnea, and hypotension; lactic acid 3.7 with repeat 3.6 and 3.7 Pt is started on broad-spectrum antibiotics in the ED Source of infection unclear: UA questionable for UTI vs contamination; CXR questionable for interstitial infiltrates Will empirically cover with Zosyn, started 12/29/2024 Critical care consult Follow cultures Monitor BP Acute metabolic acidosis VBG pH 7.15 and bicarb 10 In the setting of above Bicarb drip at 125 mls/h Nephrology consult BNP q4 hours Generalized weakness with falls at home In the setting of above PT evaluation CKD 3 Creatinine stable and around baseline Insulin-dependent type 2 diabetes Sliding-scale insulin, Lantus Diabetic diet HLD Continue statin Peripheral neuropathy Continue gabapentin GERD Continue famotidine Mood disorder Continue home mood stabilizers Full Code Attending:?Dr. Turner DVT Prophylaxis: Heparin Pt will require a hospitalization of at least two nights for treatment of?hypotension and acute metabolic acidosis in the setting of severe sepsis of unclear source of infection: UTI vs pneumonia. Pt will require hospital level care for administration of empiric IV antibiotics and continuous bicarb drip, and close monitoring of labs and blood pressure. Quality Stroke Does the patient have a stroke diagnosis?: No VTE Prior VTE?: No VTE Risk Level:: Medical - moderate - high VTE Device Contraindication: Treatment Not Indicated VTE Drug Contraindication: N/A - Med Ordered
--- NOTE | 2024-12-29 19:01 | PM.CCPN ---
Physical Exam Vital Signs: Vital Signs: Last Vital Signs Temp 97.5 F 12/29/24 09:25 Pulse 110 H 12/29/24 17:00 Resp 18 12/29/24 17:00 BP 117/64 12/29/24 17:00 Pulse Ox 94 12/29/24 17:00 O2 Del Method Room Air 12/29/24 16:30 BMI result Body Mass Index 22.5 Objective Data Labs 12/29/24 08:46 12/29/24 16:18 Labs: Laboratory Results - last 24 hr 12/29/24 12/29/24 12/29/24 08:46 08:47 08:53 WBC 20.9 H RBC 3.83 L Hgb 11.1 L Hct 33.6 L MCV 87.7 MCH 29.0 MCHC 33.0 RDW 14.9 Plt Count 406 H D MPV 10.2 Immature Gran % (Auto) 0.6 H Neut % (Auto) 87.7 H Lymph % (Auto) 5.[address] [facility] % (Auto) 5.8 Eos % (Auto) 0.5 Baso % (Auto) 0.2 Lymph # (Auto) 1.[address] [facility] # (Auto) 1.2 Eos # (Auto) 0.1 Baso # (Auto) 0.0 Abs Immat Gran (auto) 0.13 H Absolute Neuts (auto) 18.3 H Absolute Nucleated RBC 0.000 Nucleated RBC % (auto) 0.0 PT 13.5 H INR 1.2 H APTT VBG pH VBG pCO2 VBG pO2 VBG HCO3 VBG O2 Saturation VBG Base Excess Sodium 127 L Potassium 4.8 Chloride 105 Carbon Dioxide 9 L* D Anion Gap 18 BUN 39 H Creatinine 1.93 H Estim Creat Clear Calc 27.5 Estimated GFR 26 Random Glucose 296 H Lactic Acid 3.7 H* Lactic Acid F/U @ 2Hr Lactic Acid F/U @ 4Hr Calcium 9.1 Total Bilirubin 0.5 AST ALT Alkaline Phosphatase Total Creatine Kinase Troponin I High Sens < 2.7 B-Natriuretic Peptide Total Protein Albumin Triglycerides 96 Cholesterol 142 LDL Cholesterol, Calc 78 HDL Cholesterol 45 Beta-Hydroxybutyrate Urine Color Urine Appearance Urine pH Ur Specific [place] Urine Protein Urine Glucose (UA) Urine Ketones Urine Blood Urine Nitrite Ur Leukocyte Esterase Urine RBC Urine WBC Ur Squamous Epith Cells Urine Bacteria Hyaline Casts Blood Type Cancelled Rho(D) Type Cancelled Antibody Screen Cancelled 12/29/24 12/29/24 12/29/24 08:54 09:21 11:15 WBC RBC Hgb Hct MCV MCH MCHC RDW Plt Count MPV Immature Gran % (Auto) Neut % (Auto) Lymph % (Auto) [facility] % (Auto) Eos % (Auto) Baso % (Auto) Lymph # (Auto) [facility] # (Auto) Eos # (Auto) Baso # (Auto) Abs Immat Gran (auto) Absolute Neuts (auto) Absolute Nucleated RBC Nucleated RBC % (auto) PT INR APTT 35.3 D VBG pH VBG pCO2 VBG pO2 VBG HCO3 VBG O2 Saturation VBG Base Excess Sodium Potassium Chloride Carbon Dioxide Anion Gap BUN Creatinine Estim Creat Clear Calc Estimated GFR Random Glucose Lactic Acid Lactic Acid F/U @ 2Hr 3.8 H* Lactic Acid F/U @ 4Hr Calcium Total Bilirubin AST ALT Alkaline Phosphatase Total Creatine Kinase Troponin I High Sens B-Natriuretic Peptide Total Protein Albumin Triglycerides Cholesterol LDL Cholesterol, Calc HDL Cholesterol Beta-Hydroxybutyrate Urine Color DK YELLOW Urine Appearance Hazy Urine pH 5.5 Ur Specific [place] 1.025 Urine Protein 30 (1+) H Urine Glucose (UA) 500 H Urine Ketones Trace Urine Blood Small (1+) H Urine Nitrite Negative Ur Leukocyte Esterase Trace H Urine RBC 11-20 H Urine WBC 21-50 H Ur Squamous Epith Cells >20 Urine Bacteria None Seen Hyaline Casts >20 Blood Type Rho(D) Type Antibody Screen 12/29/24 12/29/24 12/29/24 13:31 16:18 16:18 WBC RBC Hgb Hct MCV MCH MCHC RDW Plt Count MPV Immature Gran % (Auto) Neut % (Auto) Lymph % (Auto) [facility] % (Auto) Eos % (Auto) Baso % (Auto) Lymph # (Auto) [facility] # (Auto) Eos # (Auto) Baso # (Auto) Abs Immat Gran (auto) Absolute Neuts (auto) Absolute Nucleated RBC Nucleated RBC % (auto) PT INR APTT VBG pH VBG pCO2 VBG pO2 VBG HCO3 VBG O2 Saturation VBG Base Excess Sodium 131 L 131 L Potassium 4.6 Chloride Carbon Dioxide Anion Gap BUN Creatinine Estim Creat Clear Calc Estimated GFR Random Glucose Lactic Acid Lactic Acid F/U @ 2Hr Lactic Acid F/U @ 4Hr 3.7 H* Calcium Total Bilirubin AST ALT Alkaline Phosphatase Total Creatine Kinase Troponin I High Sens B-Natriuretic Peptide Total Protein Albumin Triglycerides Cholesterol LDL Cholesterol, Calc HDL Cholesterol Beta-Hydroxybutyrate Urine Color Urine Appearance Urine pH Ur Specific [place] Urine Protein Urine Glucose (UA) Urine Ketones Urine Blood Urine Nitrite Ur Leukocyte Esterase Urine RBC Urine WBC Ur Squamous Epith Cells Urine Bacteria Hyaline Casts Blood Type Rho(D) Type Antibody Screen 12/29/24 12/29/24 12/29/24 16:18 16:18 16:18 WBC RBC Hgb Hct MCV MCH MCHC RDW Plt Count MPV Immature Gran % (Auto) Neut % (Auto) Lymph % (Auto) [facility] % (Auto) Eos % (Auto) Baso % (Auto) Lymph # (Auto) [facility] # (Auto) Eos # (Auto) Baso # (Auto) Abs Immat Gran (auto) Absolute Neuts (auto) Absolute Nucleated RBC Nucleated RBC % (auto) PT INR APTT VBG pH VBG pCO2 VBG pO2 VBG HCO3 VBG O2 Saturation VBG Base Excess Sodium Potassium 4.4 Chloride 112 H 111 H Carbon Dioxide 8 L* 9 L* Anion Gap 16 BUN Creatinine Estim Creat Clear Calc Estimated GFR Random Glucose Lactic Acid Lactic Acid F/U @ 2Hr Lactic Acid F/U @ 4Hr Calcium Total Bilirubin AST ALT Alkaline Phosphatase Total Creatine Kinase Troponin I High Sens B-Natriuretic Peptide Total Protein Albumin Triglycerides Cholesterol LDL Cholesterol, Calc HDL Cholesterol Beta-Hydroxybutyrate Urine Color Urine Appearance Urine pH Ur Specific [place] Urine Protein Urine Glucose (UA) Urine Ketones Urine Blood Urine Nitrite Ur Leukocyte Esterase Urine RBC Urine WBC Ur Squamous Epith Cells Urine Bacteria Hyaline Casts Blood Type Rho(D) Type Antibody Screen 12/29/24 12/29/24 12/29/24 16:18 16:18 16:18 WBC RBC Hgb Hct MCV MCH MCHC RDW Plt Count MPV Immature Gran % (Auto) Neut % (Auto) Lymph % (Auto) [facility] % (Auto) Eos % (Auto) Baso % (Auto) Lymph # (Auto) [facility] # (Auto) Eos # (Auto) Baso # (Auto) Abs Immat Gran (auto) Absolute Neuts (auto) Absolute Nucleated RBC Nucleated RBC % (auto) PT INR APTT VBG pH VBG pCO2 VBG pO2 VBG HCO3 VBG O2 Saturation VBG Base Excess Sodium Potassium Chloride Carbon Dioxide Anion Gap 15 BUN 41 H 42 H Creatinine 1.59 H 1.62 H Estim Creat Clear Calc 33.4 Estimated GFR Random Glucose Lactic Acid Lactic Acid F/U @ 2Hr Lactic Acid F/U @ 4Hr Calcium Total Bilirubin AST ALT Alkaline Phosphatase Total Creatine Kinase Troponin I High Sens B-Natriuretic Peptide Total Protein Albumin Triglycerides Cholesterol LDL Cholesterol, Calc HDL Cholesterol Beta-Hydroxybutyrate Urine Color Urine Appearance Urine pH Ur Specific [place] Urine Protein Urine Glucose (UA) Urine Ketones Urine Blood Urine Nitrite Ur Leukocyte Esterase Urine RBC Urine WBC Ur Squamous Epith Cells Urine Bacteria Hyaline Casts Blood Type Rho(D) Type Antibody Screen 12/29/24 12/29/24 12/29/24 16:18 16:18 16:18 WBC RBC Hgb Hct MCV MCH MCHC RDW Plt Count MPV Immature Gran % (Auto) Neut % (Auto) Lymph % (Auto) [facility] % (Auto) Eos % (Auto) Baso % (Auto) Lymph # (Auto) [facility] # (Auto) Eos # (Auto) Baso # (Auto) Abs Immat Gran (auto) Absolute Neuts (auto) Absolute Nucleated RBC Nucleated RBC % (auto) PT INR APTT VBG pH VBG pCO2 VBG pO2 VBG HCO3 VBG O2 Saturation VBG Base Excess Sodium Potassium Chloride Carbon Dioxide Anion Gap BUN Creatinine Estim Creat Clear Calc 32.8 Estimated GFR 33 32 Random Glucose 189 H 190 H Lactic Acid Lactic Acid F/U @ 2Hr Lactic Acid F/U @ 4Hr Calcium 8.0 L D Total Bilirubin AST ALT Alkaline Phosphatase Total Creatine Kinase Troponin I High Sens B-Natriuretic Peptide Total Protein Albumin Triglycerides Cholesterol LDL Cholesterol, Calc HDL Cholesterol Beta-Hydroxybutyrate Urine Color Urine Appearance Urine pH Ur Specific [place] Urine Protein Urine Glucose (UA) Urine Ketones Urine Blood Urine Nitrite Ur Leukocyte Esterase Urine RBC Urine WBC Ur Squamous Epith Cells Urine Bacteria Hyaline Casts Blood Type Rho(D) Type Antibody Screen 12/29/24 12/29/24 16:18 16:23 WBC RBC Hgb Hct MCV MCH MCHC RDW Plt Count MPV Immature Gran % (Auto) Neut % (Auto) Lymph % (Auto) [facility] % (Auto) Eos % (Auto) Baso % (Auto) Lymph # (Auto) [facility] # (Auto) Eos # (Auto) Baso # (Auto) Abs Immat Gran (auto) Absolute Neuts (auto) Absolute Nucleated RBC Nucleated RBC % (auto) PT INR APTT VBG pH 7.15 L* VBG pCO2 28 VBG pO2 42 VBG HCO3 10 L VBG O2 Saturation 67.0 VBG Base Excess -17.1 Sodium Potassium Chloride Carbon Dioxide Anion Gap BUN Creatinine Estim Creat Clear Calc Estimated GFR Random Glucose Lactic Acid Lactic Acid F/U @ 2Hr Lactic Acid F/U @ 4Hr Calcium 8.2 L Total Bilirubin 0.4 AST 17 ALT 7 Alkaline Phosphatase 110 Total Creatine Kinase 46 Troponin I High Sens B-Natriuretic Peptide 244 H Total Protein 6.3 L Albumin 3.7 Triglycerides Cholesterol LDL Cholesterol, Calc HDL Cholesterol Beta-Hydroxybutyrate 0.07 Urine Color Urine Appearance Urine pH Ur Specific [place] Urine Protein Urine Glucose (UA) Urine Ketones Urine Blood Urine Nitrite Ur Leukocyte Esterase Urine RBC Urine WBC Ur Squamous Epith Cells Urine Bacteria Hyaline Casts Blood Type Rho(D) Type Antibody Screen Progress Note: A&P Assessment and plan Plan 59 years old female with PMH of DM, CKD baseline creatinine around 1.7, chronic smoker presented to the ED with episode of fall and non productive cough. -Patients blood pressures are stable, most recent 117/64mmHg, and mostly SBP remaining above 100mmHg - breating stable on room air saturations normal - alert and oriented x3, lao speaking only. - patient has high anion gap metabolic acidosis, creatinine at baseline (1.5- 2.0). Quality VTE VTE Risk Level:: Medical - moderate - high VTE Device Contraindication: N/A - Device Ordered VTE Drug Contraindication: Treatment Not Indicated
--- NOTE | 2024-12-29 19:16 | P.CONCC_ITS ---
History of Present Illness Data of Consult Service Date: 12/29/24 Primary Care Provider: Nolan Blevins MD [facility] Past Medical History Medical History Dysphagia Anxiety disorder GERD (gastroesophageal reflux disease) Migraines Asthma On beta jordyn at home Elevated cholesterol HTN (hypertension) Smoker Diabetes Depression Heartburn Surgical History Surgical History Hx of left knee surgery History of tubal ligation History of esophagogastroduodenoscopy (EGD) H/O colonoscopy Hx of cholecystectomy Social History Social History Household Members: Family Housing: Apartment Alcohol intake: former Patient Tobacco Use Status: Current everyday Tobacco user Tobacco use type: Cigarette Cigarettes Per Day: 6 Smoked in Last 30 Days: Yes Second Hand Smoke Exposure: Yes Advance Directives: No Advance Directives Information Provided: Yes Do you have a plan to hurt others: No Plan service: No Current occupational status: disabled Meds Allergies Allergy/AdvReac Type Severity Reaction Status Date / Time iron Allergy Mild UNKNOWN Verified 12/29/24 08:22 Iodinated Contrast Media Allergy Unknown UNKNOWN Verified 12/29/24 08:22 [IV Dye, Iodine Containing] iodine [IODINE] Allergy Unknown RASH Verified 12/29/24 08:22 seafood Allergy Unknown Unknown Verified 12/29/24 08:22 Active Medications: Current Medications Acetaminophen (Acetaminophen 325 Mg Tablet) 650 mg PO Q6H PRN PRN Reason: Pain, Mild 1-3,fever,headache Calcium Carbonate (Calcium Carbonate 750 Mg Tab.Chew) 750 mg PO Q4H PRN PRN Reason: Heartburn Ceftriaxone Sodium (Ceftriaxone Sodium 1 Gm Vial) 1 gm IVPUSH Q24H [facility] Dextrose (Dextrose 50 % 25 Gm/50 Ml Syringe) 25 gm IVPUSH Q15M PRN; Protocol PRN Reason: per Hypoglycemia Standing Ord. Glucose (Glucose Gel 15 Gm Gel..Gram.) 15 gm PO Q15M PRN; Protocol PRN Reason: per Hypoglycemia Standing Ord. Sodium Bicarbonate 150 meq/ (Dextrose) 1,000 mls @ 125 mls/hr IV .Q8H [facility]AWN Last Admin: 12/29/24 17:12 Dose: 75 mls/hr Doxycycline Hyclate 100 mg/ (Sodium Chloride) 250 mls @ 166.67 mls/hr IV Q12H [facility] Insulin Human Lispro (Insulin Lispro 100 Unit/Ml 3 Ml Vial) 0 unit SUBCUT QIDACHS [facility]; Protocol Magnesium Hydroxide (Milk Of Magnesia 30 Ml Oral.Susp) 30 ml PO DAILY PRN PRN Reason: Constipation Melatonin (Melatonin 3 Mg Tablet) 6 mg PO BEDTIME PRN PRN Reason: Insomnia Sodium Chloride (0.9 % Sodium Chloride Flush 3 Ml Syringe) 3 [facility] Home Medications ?Medication ?Instructions ?Recorded ?Confirmed ?Last Taken ?Type aspirin 81 mg tablet,delayed 81 mg PO DAILY 04/21/22 12/26/24 05/19/23 History release atorvastatin 20 mg tablet 20 mg PO BEDTIME 04/21/22 12/26/24 05/19/23 History benztropine 0.5 mg tablet 0.5 mg PO BID 04/21/22 12/26/24 05/19/23 History fluoxetine 10 mg capsule 10 mg PO DAILY 04/21/22 12/26/24 05/19/23 History insulin syringe-needle U-100 0.5 #10 ea 04/21/22 12/26/24 Unknown History mL 30 gauge x 1/2 (UltiCare) metoprolol succinate 50 mg 50 mg PO DAILY 04/21/22 12/26/24 05/19/23 History tablet,extended release 24 hr mirtazapine 7.5 mg tablet 7.5 mg PO BEDTIME 04/21/22 12/26/24 05/19/23 History ergocalciferol (vitamin D2) 1,250 1 cap PO GUERRA@0900 05/06/22 12/26/24 05/14/23 History mcg (50,000 unit) capsule haloperidol 5 mg tablet 1 tab PO BID 05/06/22 12/26/24 05/19/23 History vkyexaea-tugs-xoui 8 mg-folic 400 1 tab PO DAILY 05/20/23 12/26/24 05/19/23 History mcg-K 50 mcg-lutein 300 mcg tablet (Centrum Silver Women) prazosin 2 mg capsule 4 mg PO BEDTIME 05/20/23 12/26/24 05/19/23 History gabapentin 100 mg capsule 100 mg PO BEDTIME 05/30/24 12/26/24 Unknown History insulin glargine 100 unit/mL (3 20 unit subcut QPM 08/27/24 12/26/24 Unknown History mL) subcutaneous pen (Lantus Solostar U-100 Insulin) dulaglutide 0.75 mg/0.5 mL mg subcut QWEEK 11/14/24 12/26/24 Unknown History subcutaneous pen injector (Trulicity) empagliflozin 10 mg tablet 10 mg PO QAM 11/14/24 12/26/24 Unknown History (Jardiance) alcohol swabs (Alcohol Prep Pads) pad topical TID 12/04/24 12/26/24 Unknown History blood sugar diagnostic (FreeStyle #10 ea 12/04/24 12/26/24 Unknown History Lite Strips) lancets 33 gauge (TRUEplus Lancets) #100 ea 12/04/24 12/26/24 Unknown History losartan 50 mg tablet 50 mg PO QAM 12/04/24 12/26/24 Unknown History pen needle, diabetic 31 gauge x #100 ea 12/04/24 12/26/24 Unknown History 1/4 (Easy Touch) Physical Exam 2 Vital Signs: Vital Signs: Last Vital Signs Temp 97.5 F 12/29/24 09:25 Pulse 110 H 12/29/24 17:00 Resp 18 12/29/24 17:00 BP 117/64 12/29/24 17:00 Pulse Ox 94 12/29/24 17:00 O2 Del Method Room Air 12/29/24 16:30 BMI result Body Mass Index 22.5 Results Labs 12/29/24 08:46 12/29/24 16:18 Labs: Short CBC 12/29/24 Range/Units 08:46 WBC 20.9 H (4.8-10.8) X10*3/uL Hgb 11.1 L (12.0-16.0) g/dl Hct 33.6 L (37.0-47.0) % Plt Count 406 H D (160-400) X10*3/uL BMP 12/29/24 12/29/24 12/29/24 08:46 16:18 16:18 Sodium 127 L 131 L 131 L Potassium 4.8 4.6 Chloride 105 Carbon Dioxide 9 L* D BUN 39 H Creatinine 1.93 H Calcium 9.1 12/29/24 12/29/24 12/29/24 16:18 16:18 16:18 Sodium Potassium 4.4 Chloride 112 H 111 H Carbon Dioxide 8 L* 9 L* BUN 41 H Creatinine Calcium 12/29/24 12/29/24 12/29/24 16:18 16:18 16:18 Sodium Potassium Chloride Carbon Dioxide BUN 42 H Creatinine 1.59 H 1.62 H Calcium 8.0 L D 8.2 L Cardiac Enzymes 12/29/24 Range/Units 16:18 Total Creatine Kinase 46 (26-140) U/L Liver Function 12/29/24 12/29/24 Range/Units 08:46 16:18 Total Bilirubin 0.5 0.4 (0.0-1.0) mg/dL AST 17 (5-31) U/L ALT 7 (0-31) U/L Alkaline Phosphatase 110 (39-117) U/L Albumin 3.7 (3.5-5.0) g/dL Urine 12/29/24 Range/Units 09:21 Urine Color DK YELLOW Urine Appearance Hazy Urine pH 5.5 (5.0-9.0) Ur Specific [place] 1.025 (1.005-1.025) Urine Protein 30 (1+) H (Neg-Trace) mg/dL Urine Glucose (UA) 500 H (Negative) mg/dL Assessment and Plan (1) Depression: Status: Acute (2) Hypotension: Status: Acute (3) Diabetes: Qualifiers: Diabetes mellitus type: type 2 Diabetes mellitus long term care phlebotomist insulin use: with long term care phlebotomist use Diabetes mellitus complication status: with kidney complications Diabetes mellitus complication detail: with nephropathy Q ualified Code(s): E11.21 - Type 2 diabetes mellitus with diabetic nephropathy; Z79.4 - long term care phlebotomist (current) use of insulin Status: Acute (4) Hyponatremia: Status: Acute Plan 59 years old female with PMH of DM, CKD baseline creatinine around 1.7, chronic smoker presented to the ED with episode of fall and non productive cough. -Patients blood pressures are stable, most recent 117/64mmHg, and mostly SBP remaining above 100mmHg - breating stable on room air saturations normal - alert and oriented x3, georgian speaking only. - patient has mostly non- anion gap metabolic acidosis, creatinine at baseline (1.5- 2.0) with small anion gap possibly from lactate. Non anion-gap metabolic acidosis can be from normal saline infusion, however other causes needs to be ruled out including respiratory alkalosis, GI or renal an ion loss. Patients pH is 7.15 on VBG which would be around 7.20 on an ABG. Patient possibly may benefit from sodium bicarbonate replacement however it is not always recommended for pH above 7.2, so can replace until bicarb raises above 10. No indication for ICU admission at this time. Total time managing care of this patient today: 35 minutes.
--- NOTE | 2024-12-29 20:31 | PC.NURSE ---
Pt. cleaned up twuice, had 2 episodes of runny diarrhea. Linen and gown changed.
--- NOTE | 2024-12-29 20:49 | PC.NURSE ---
Informed José of critical lab value of co2- remaining at 9.
[2024-12-29 20:50] LABS: Anion Gap 17 (12-20); Blood Urea Nitrogen 44 mg/dL (9-16); Calcium 8.1 mg/dL (8.4-10.2); Carbon Dioxide 9 mmol/L (22-29); Chloride 110 mmol/L (96-108); Estimated Glomerular Filt Rate 30; Glucose Random 237 mg/dL (60-115); Potassium 3.8 mmol/L (3.3-5.1); Sodium 132 mmol/L (135-145)
[2024-12-29 20:51] LABS: Anion Gap 16 (12-20); Blood Urea Nitrogen 44 mg/dL (9-16); Carbon Dioxide 9 mmol/L (22-29); Chloride 110 mmol/L (96-108); Creatinine Clr Calc Pharmacy 31.2; Estimated Glomerular Filt Rate 31; Glucose Random 238 mg/dL (60-115); Potassium 3.8 mmol/L (3.3-5.1); Sodium 131 mmol/L (135-145)
[2024-12-29 21:18] LABS: Glucose, Whole Blood 225 mg/dL (60-115)
[2024-12-29] MEDS: Insulin Lispro 100 UNIT/ML 3 ML VIAL SUBCUT (21:21)
--- NOTE | 2024-12-29 22:05 | PC.NURSE ---
MD Drake at bedside, bp recheck. Informed MD also that pt. have diarrhea and loose stool, d/t taking medication to help pt. go d/t pt. being constipation. Per family staement.
--- NOTE | 2024-12-29 23:15 | PC.NURSE ---
this securities underwriter assumed care of this Pt at this time. Per Dr. Drake, notify if Pt becomes hypotensive.
[2024-12-30] VITALS (8 sets, daily range): BP systolic 89–124; BP diastolic 50–71; PULSE 87–111; RESP 17–22; TEMP 36.3–36.9; O2SAT 93–100; BMI 23.2
[2024-12-30] MEDS: Heparin Sodium,Porcine 5,000 UNIT/ML VIAL 5000 UNIT SUBCUT ×4 (00:16→23:47)
[2024-12-30] MEDS: 0.9 % Sodium Chloride Flush 3 ML SYRINGE IVFLUSH ×4 (00:17→23:47)
[2024-12-30] MEDS: Doxycycline Hyclate 100 MG in 0.9 % Sodium Chloride 250 ML 166.67 MG IV ×2 (00:17→11:27)
[2024-12-30 01:00] LABS: Glucose, Whole Blood 174 mg/dL (60-115)
[2024-12-30] MEDS: Nicotine 14 MG PATCH.TD24 TRANSDERMA (01:46)
[2024-12-30 02:57] LABS: CDiff Gene PCR NEGATIVE (Negative)
[2024-12-30 03:34] LABS: Anion Gap 18 (12-20); Blood Urea Nitrogen 53 mg/dL (9-16); Calcium 7.9 mg/dL (8.4-10.2); Carbon Dioxide 14 mmol/L (22-29); Chloride 106 mmol/L (96-108); Estimated Glomerular Filt Rate 29; Glucose Random 221 mg/dL (60-115); Potassium 3.8 mmol/L (3.3-5.1); Sodium 134 mmol/L (135-145)
[2024-12-30] MEDS: Sodium Bicarbonate 8.4% 150 MEQ in Dextrose 5 % 850 ML 125 MEQ IV ×3 (04:27→20:05)
[2024-12-30 06:16] LABS: Venous Blood Gas Refer to POC result
[2024-12-30 06:18] LABS: Hematocrit 26.8 % (37.0-47.0); Hemoglobin 9.2 g/dl (12.0-16.0); Mean Corpuscular HGB Conc 34.3 g/dl (31.0-35.0); Mean Corpuscular Hemoglobin 29.4 pg (27.0-33.0); Mean Corpuscular Volume 85.6 fL (80.0-98.0); Mean Platelet Volume 10.2 fL (9.4-12.3); Platelet Count 303 X10*3/uL (160-400); Red Blood Count 3.13 X10*6/uL (4.20-5.50); Red Cell Distribution Width 15.1 % (11.0-16.0); White Blood Count 12.7 X10*3/uL (4.8-10.8)
[2024-12-30 06:32] LABS: VBG Base Excess -10.3 mmol/L; VBG HCO3 15 mmol/L (22-26); VBG pCO2 35 mmHg; VBG pH 7.25 (7.32-7.43); VBG pO2 28 mmHg
[2024-12-30 06:37] LABS: Anion Gap 17 (12-20); Blood Urea Nitrogen 52 mg/dL (9-16); Calcium 7.8 mg/dL (8.4-10.2); Carbon Dioxide 13 mmol/L (22-29); Chloride 106 mmol/L (96-108); Creatinine Clr Calc Pharmacy 30.7; Estimated Glomerular Filt Rate 30; Glucose Random 246 mg/dL (60-115); Potassium 3.7 mmol/L (3.3-5.1); Sodium 132 mmol/L (135-145)
[2024-12-30 06:41] LABS: B Type Natriuretic Peptide 587 pg/mL (<100)
--- NOTE | 2024-12-30 06:42 | PC.NURSE ---
Assumed care of patient approximately at 00:40. Patient having very frequent loose watery stools. MD notified, cdiff and gi panel obtained. Cdiff negative, GI panel is pending results. Rectal tube ordered and placed for continued liquid stooling. Patient noted to have intermittent dry cough. Respiratory panel ordered and obtained, pending at this time. VBG reassessment ordered and obtained. Patient resting comfortably in bed. Breathing is even and unlabored without distress. Plan of care continues.
[2024-12-30 06:55] LABS: Glucose, Whole Blood 214 mg/dL (60-115)
[2024-12-30 07:37] LABS: Glucose, Whole Blood 258 mg/dL (60-115)
[2024-12-30] MEDS: Insulin Lispro 100 UNIT/ML 3 ML VIAL SUBCUT ×3 (07:42→16:05)
[2024-12-30] MEDS: cefTRIAXone sodium 1 GM VIAL IVPUSH (07:43)
[2024-12-30] MEDS: Acetaminophen 325 MG TABLET 650 MG PO ×2 (07:43→15:23)
--- NOTE | 2024-12-30 09:22 | PM.EVENT ---
Event Note Date of Service: 12/30/24 Event Note: Chart reviewed. Rita is well known to me Admited with shock and severe acidosis Renal function close to baseline UA - No ketones. Beta OH butyrate negative Keep I > O with bicarb drip Optimize BP No indication for dialysis Full consult to follow Time Spent With Patient Time: Total time managing care of this patient today ____ minutes.
--- NOTE | 2024-12-30 10:12 | PHA.MEDREC ---
Pharmacy Consult ? Medication Reconciliation Pharmacy has completed the medication reconciliation. Spiral Machine Operator services utilized, patient unsure of what she takes but said her daughter Rosemary is her WATER TAXI OPERATOR ([phone]). Called and she went over the med list. She reported that she still takes Lantus 10 units daily despite no claim since July as well as Trulicity every Monday
[2024-12-30 10:54] LABS: Glucose, Whole Blood 331 mg/dL (60-115)
--- NOTE | 2024-12-30 11:02 | HO.PM.IMPN ---
Subjective Subjective Date of Service: 12/30/24 Interval History: seen and evlauated this morning feels better overall report LLQ pain having diarrhea BP improved no other events overnight Review of Systems Review of Systems: Yes all other systems are reviewed and are negative Physical Exam Vital Signs: Vital Signs: Last Vital Signs Temp 98.3 F 12/30/24 07:03 Pulse 107 H 12/30/24 07:03 Resp 20 12/30/24 07:03 BP 107/63 12/30/24 07:03 Pulse Ox 98 12/30/24 07:03 O2 Del Method Nasal Cannula 12/30/24 07:03 O2 Flow Rate 2 12/30/24 07:03 BMI result Body Mass Index 23.2 Const: Other: Constitutional : interactive, not in distress Cardiovascular : no JVP, no lower extremity edema Respiratory : bilateral chest movement, not in resp distress , on O2 supplement, minimal basal crackles Gastrointestinal: soft, lax, mild left abd pain sided tenderness, no surgical signs Skin : Warm, Dry Neurological : Alert & oriented to self and place , No focal deficit Objective Data Active Medications Acetaminophen (Acetaminophen 325 Mg Tablet) 650 mg PO Q6H PRN PRN Reason: Pain, Mild 1-3,fever,headache Last Admin: 12/30/24 07:43 Dose: 650 mg Documented By: MELVINA Aspirin (Aspirin Enteric Coated 81 Mg Tablet.Dr) 81 mg PO DAILY [facility] Atorvastatin Calcium (Atorvastatin Calcium 20 Mg Tablet) 20 mg PO BEDTIME [facility] Calcium Carbonate (Calcium Carbonate 750 Mg Tab.Chew) 750 mg PO Q4H PRN PRN Reason: Heartburn Ceftriaxone Sodium (Ceftriaxone Sodium 1 Gm Vial) 1 gm IVPUSH Q24H [facility] Last Admin: 12/30/24 07:43 Dose: 1 gm Documented By: MELVINA Dextrose (Dextrose 50 % 25 Gm/50 Ml Syringe) 25 gm IVPUSH Q15M PRN; Protocol PRN Reason: per Hypoglycemia Standing Ord. Famotidine (Famotidine 20 Mg Tablet) 20 mg PO BEDTIME [facility] Fluoxetine HCl (Fluoxetine Hcl 10 Mg Capsule) 10 mg PO DAILY [facility] Gabapentin (Gabapentin 100 Mg Capsule) 100 mg PO BEDTIME [facility] Glucose (Glucose Gel 15 Gm Gel..Gram.) 15 gm PO Q15M PRN; Protocol PRN Reason: per Hypoglycemia Standing Ord. Haloperidol (Haloperidol 5 Mg Tablet) 5 mg PO BID [facility] Heparin Sodium (Porcine) (Heparin Sodium,Porcine 5,000 Unit/Ml Vial) 5,000 unit SUBCUT Q8H [facility] Last Admin: 12/30/24 06:02 Dose: 5,000 unit Documented By: LILI Sodium Bicarbonate 150 meq/ (Dextrose) 1,000 mls @ 125 mls/hr IV .Q8H [facility] Last Admin: 12/30/24 04:27 Dose: 125 mls/hr Documented By: FAN Doxycycline Hyclate 100 mg/ (Sodium Chloride) 250 mls @ 166.67 mls/hr IV Q12H [facility] Last Infusion: 12/30/24 02:18 Dose: Infused Documented By: LILI Insulin Glargine (Insulin Glargine,Hum.Rec.Anlog 100 Unit/Ml 10 Ml Vial) 10 unit SUBCUT DAILY [facility] Insulin Human Lispro (Insulin Lispro 100 Unit/Ml 3 Ml Vial) 0 unit SUBCUT QIDACHS [facility]; Protocol Last Admin: 12/30/24 07:42 Dose: 4 unit Documented By: MELVINA Loperamide HCl (Loperamide Hcl 2 Mg Capsule) 2 mg PO Q4H PRN PRN Reason: Diarrhea Magnesium Hydroxide (Milk Of Magnesia 30 Ml Oral.Susp) 30 ml PO DAILY PRN PRN Reason: Constipation Melatonin (Melatonin 3 Mg Tablet) 6 mg PO BEDTIME PRN PRN Reason: Insomnia Metoprolol Succinate (Metoprolol Succinate Er 25 Mg Tab.Er.24h) 25 mg PO DAILY [facility]; Protocol Mirtazapine (Mirtazapine 7.5 Mg Tablet) 7.5 mg PO BEDTIME [facility] Non-Formulary Medication (Esomeprazole Magnesium [Nexium]) 40 mg PO DAILY@0630 [facility] Senna (Sennosides 8.6 Mg Tablet) 17.2 mg PO BEDTIME PRN PRN Reason: constipation Sodium Chloride (0.9 % Sodium Chloride Flush 3 Ml Syringe) 3 ml IVFLUSH QSHIFT [facility] Last Admin: 12/30/24 07:42 Dose: 3 ml Documented By: MELVINA Labs 12/30/24 06:10 12/30/24 06:10 Labs: Laboratory Results - last 24 hr 12/29/24 12/29/24 12/29/24 08:29 11:15 13:31 MCV MCH MCHC RDW Plt Count MPV Absolute Nucleated RBC Nucleated RBC % (auto) VBG pH VBG pCO2 VBG pO2 VBG HCO3 VBG O2 Saturation VBG Base Excess Anion Gap Estim Creat Clear Calc Estimated GFR POC Glucose 258 H Random Glucose Lactic Acid F/U @ 2Hr 3.8 H* Lactic Acid F/U @ 4Hr 3.7 H* Calcium Total Bilirubin AST ALT Alkaline Phosphatase Total Creatine Kinase B-Natriuretic Peptide Total Protein Albumin Beta-Hydroxybutyrate C. difficile Tox B Gene 12/29/24 12/29/24 12/29/24 16:18 16:18 16:18 MCV MCH MCHC RDW Plt Count MPV Absolute Nucleated RBC Nucleated RBC % (auto) VBG pH VBG pCO2 VBG pO2 VBG HCO3 VBG O2 Saturation VBG Base Excess Anion Gap 16 15 Estim Creat Clear Calc 33.4 32.8 Estimated GFR 33 POC Glucose Random Glucose Lactic Acid F/U @ 2Hr Lactic Acid F/U @ 4Hr Calcium Total Bilirubin AST ALT Alkaline Phosphatase Total Creatine Kinase B-Natriuretic Peptide Total Protein Albumin Beta-Hydroxybutyrate C. difficile Tox B Gene 12/29/24 12/29/24 12/29/24 16:18 16:18 16:18 MCV MCH MCHC RDW Plt Count MPV Absolute Nucleated RBC Nucleated RBC % (auto) VBG pH VBG pCO2 VBG pO2 VBG HCO3 VBG O2 Saturation VBG Base Excess Anion Gap Estim Creat Clear Calc Estimated GFR 32 POC Glucose Random Glucose 189 H 190 H Lactic Acid F/U @ 2Hr Lactic Acid F/U @ 4Hr Calcium 8.0 L D 8.2 L Total Bilirubin 0.4 AST 17 ALT 7 Alkaline Phosphatase 110 Total Creatine Kinase 46 B-Natriuretic Peptide 244 H Total Protein 6.3 L Albumin 3.7 Beta-Hydroxybutyrate 0.07 C. difficile Tox B Gene 12/29/24 12/29/24 12/29/24 16:23 20:12 20:12 MCV MCH MCHC RDW Plt Count MPV Absolute Nucleated RBC Nucleated RBC % (auto) VBG pH 7.15 L* VBG pCO2 28 VBG pO2 42 VBG HCO3 10 L VBG O2 Saturation 67.0 VBG Base Excess -17.1 Anion Gap 17 16 Estim Creat Clear Calc 31.0 Estimated GFR POC Glucose Random Glucose Lactic Acid F/U @ 2Hr Lactic Acid F/U @ 4Hr Calcium Total Bilirubin AST ALT Alkaline Phosphatase Total Creatine Kinase B-Natriuretic Peptide Total Protein Albumin Beta-Hydroxybutyrate C. difficile Tox B Gene 12/29/24 12/29/24 12/29/24 20:12 20:12 20:12 MCV MCH MCHC RDW Plt Count MPV Absolute Nucleated RBC Nucleated RBC % (auto) VBG pH VBG pCO2 VBG pO2 VBG HCO3 VBG O2 Saturation VBG Base Excess Anion Gap Estim Creat Clear Calc 31.2 Estimated GFR 30 31 POC Glucose Random Glucose 237 H 238 H Lactic Acid F/U @ 2Hr Lactic Acid F/U @ 4Hr Calcium 8.1 L Total Bilirubin AST ALT Alkaline Phosphatase Total Creatine Kinase B-Natriuretic Peptide Total Protein Albumin Beta-Hydroxybutyrate C. difficile Tox B Gene 12/29/24 12/29/24 12/30/24 20:12 21:14 00:54 MCV MCH MCHC RDW Plt Count MPV Absolute Nucleated RBC Nucleated RBC % (auto) VBG pH VBG pCO2 VBG pO2 VBG HCO3 VBG O2 Saturation VBG Base Excess Anion Gap Estim Creat Clear Calc Estimated GFR POC Glucose 225 H 174 H Random Glucose Lactic Acid F/U @ 2Hr Lactic Acid F/U @ 4Hr Calcium 8.0 L Total Bilirubin AST ALT Alkaline Phosphatase Total Creatine Kinase B-Natriuretic Peptide Total Protein Albumin Beta-Hydroxybutyrate C. difficile Tox B Gene 12/30/24 12/30/24 12/30/24 01:57 03:14 06:10 MCV 85.6 MCH 29.4 MCHC 34.3 RDW 15.1 Plt Count 303 D MPV 10.2 Absolute Nucleated RBC 0.000 Nucleated RBC % (auto) 0.0 VBG pH VBG pCO2 VBG pO2 VBG HCO3 VBG O2 Saturation VBG Base Excess Anion Gap 18 17 Estim Creat Clear Calc 30.0 30.7 Estimated GFR 29 30 POC Glucose Random Glucose 221 H 246 H Lactic Acid F/U @ 2Hr Lactic Acid F/U @ 4Hr Calcium 7.9 L 7.8 L Total Bilirubin AST ALT Alkaline Phosphatase Total Creatine Kinase B-Natriuretic Peptide 587 H Total Protein Albumin Beta-Hydroxybutyrate C. difficile Tox B Gene NEGATIVE 12/30/24 12/30/24 12/30/24 06:17 06:50 10:50 MCV MCH MCHC RDW Plt Count MPV Absolute Nucleated RBC Nucleated RBC % (auto) VBG pH 7.25 L VBG pCO2 35 VBG pO2 28 VBG HCO3 15 L VBG O2 Saturation 41.0 VBG Base Excess -10.3 Anion Gap Estim Creat Clear Calc Estimated GFR POC Glucose 214 H 331 H Random Glucose Lactic Acid F/U @ 2Hr Lactic Acid F/U @ 4Hr Calcium Total Bilirubin AST ALT Alkaline Phosphatase Total Creatine Kinase B-Natriuretic Peptide Total Protein Albumin Beta-Hydroxybutyrate C. difficile Tox B Gene Microbiology Microbiology Results: Microbiology 12/29/24 08:46 Blood Culture - Preliminary Blood - Venous No growth after 24 hours. 12/29/24 08:46 Blood Culture - Preliminary Blood - Venous No growth after 24 hours. Assessment and Plan (1) Sepsis: Status: Acute (2) Metabolic acidosis: Status: Acute (3) Hyponatremia: Status: Acute (4) Lactic acidosis: Status: Acute Plan Pt is a 59-year-old Slovak-speaking female with a PMH significant for insulin-dependent type 2 diabetes, HTN, HLD, peripheral neuropathy, CKD 3, chronic constipation, and GERD?who presents to the ED for evaluation of generalized weakness and falls at home. Pt is admitted to the hospital for treatment and further evaluation of hypotension and acute metabolic acidosis in the setting of severe sepsis secondary to UTI vs pneumonia. severe sepsis 2/2 UTI vs Pneumonia complicated with hypotension BP Improved with boluses and albumin, midodrine Source of infection unclear: UA questionable for UTI vs contamination; CXR questionable for interstitial infiltrates empirically cover with Zosyn, started 12/29/2024 Critical care consult appreciated Follow cultures Monitor BP IV fluid as needed Hold Benzotropine, Doxazosin which are likely contributing to low BP Diarrhea likely related to fecal impaction, new Abx check stool analysis imodium if needed DC rectal tube Acute lactic acidosis Elevated at 3.8 to repeat after fluid boluses Acute metabolic acidosis VBG pH 7.15 and bicarb 10 Bicarb drip at 125 mls/h Nephrology consult follow BMP and DC drip, switch to PO NaHCO3 when appropriate Generalized weakness with falls at home PT evaluation CKD 3 Creatinine stable and around baseline Insulin-dependent type 2 diabetes Sliding-scale insulin, Lantus 10 units Diabetic diet HLD Continue statin Peripheral neuropathy Continue gabapentin GERD Continue famotidine Mood disorder Continue home mood stabilizers Full Code DVT Prophylaxis: Heparin Pt will require a hospitalization overnight for treatment of?hypotension and acute metabolic acidosis in the setting of severe sepsis of unclear source of infection: UTI vs pneumonia. Pt will require hospital level care for administration of empiric IV antibiotics and continuous bicarb drip, and close monitoring of labs and blood pressure. Quality Stroke Does the patient have a stroke diagnosis?: No VTE Prior VTE?: No VTE Risk Level:: Medical - moderate - high VTE Device Contraindication: Treatment Not Indicated VTE Drug Contraindication: N/A - Med Ordered
[2024-12-30] MEDS: Insulin Glargine,Hum.rec.anlog 100 UNIT/ML 10 ML VIAL 10 UNIT SUBCUT (11:29)
[2024-12-30] MEDS: HaloperidoL 5 MG TABLET PO ×2 (11:29→21:32)
[2024-12-30] MEDS: Metoprolol Succinate ER 25 MG TAB.ER.24H PO (11:29)
[2024-12-30 12:05] LABS: Adenovirus PCR Not Detected (Not Detect.); Bordetella parapertussis PCR Not Detected (Not Detect.); Bordetella pertussis PCR Not Detected (Not Detect.); Chlamydia pneumoniae PCR Not Detected (Not Detect.); Coronavirus 229E PCR Not Detected (Not Detect.); Coronavirus HKU1 PCR Not Detected (Not Detect.); Coronavirus NL63 PCR Not Detected (Not Detect.); Coronavirus OC43 PCR Not Detected (Not Detect.); Human metapneumovirus PCR Not Detected (Not Detect.); Influenza A PCR Not Detected (Not Detect.); Influenza B PCR Not Detected (Not Detect.); Mycoplasma pneumoniae PCR Not Detected (Not Detect.); Parainfluenza 1 PCR Not Detected (Not Detect.); Parainfluenza 2 PCR Not Detected (Not Detect.); Parainfluenza 3 PCR Not Detected (Not Detect.); Parainfluenza 4 PCR Not Detected (Not Detect.); RSV PCR Not Detected (Not Detect.); Rhino/Enterovirus PCR Not Detected (Not Detect.)
[2024-12-30 12:08] LABS: Influenza A H1 PCR Not Detected (Not Detect.); Influenza A H1-2009 PCR Not Detected (Not Detect.); Influenza A H3 PCR Not Detected (Not Detect.); SARS-CoV-2 PCR Not Detected (Not Detect.)
[2024-12-30 12:26] LABS: Leukocytes Stool Qualitative NEGATIVE (NEGATIVE)
[2024-12-30 13:47] LABS: Lactic Acid 4.7 mmol/L (0.5-2.0)
[2024-12-30 14:13] LABS: Anion Gap 20 (12-20); Blood Urea Nitrogen 54 mg/dL (9-16); Calcium 7.6 mg/dL (8.4-10.2); Carbon Dioxide 14 mmol/L (22-29); Chloride 102 mmol/L (96-108); Creatinine Clr Calc Pharmacy 31.6; Estimated Glomerular Filt Rate 31; Glucose Random 283 mg/dL (60-115); Potassium 3.6 mmol/L (3.3-5.1); Sodium 132 mmol/L (135-145)
[2024-12-30 14:22] LABS: Adenovirus F 40/41 Not Detected (Not Detect.); Astrovirus Not Detected (Not Detect.); Campylobacter Not Detected (Not Detect.); Cryptosporidium Not Detected (Not Detect.); Cyclospora cayetanensis Not Detected (Not Detect.); E. coli EAEC Not Detected (Not Detect.); E. coli EPEC Not Detected (Not Detect.); E. coli ETEC Not Detected (Not Detect.); E. coli STEC Not Detected (Not Detect.); Entamoeba histolytica Not Detected (Not Detect.); Giardia lamblia Not Detected (Not Detect.); Norovirus GI/GII Not Detected (Not Detect.); Plesiomonas shigelloides Not Detected (Not Detect.); Rotavirus A Not Detected (Not Detect.); Salmonella Not Detected (Not Detect.); Sapovirus Not Detected (Not Detect.); Shigella sp./EIEC Not Detected (Not Detect.); Vibrio Not Detected (Not Detect.); Vibrio Cholerae Not Detected (Not Detect.); Yersinia enterocolitica Not Detected (Not Detect.)
--- NOTE | 2024-12-30 14:55 | MHC.CM.PN ---
This CM attempted to meet with pt with the assistance of the senior sql server developer, personal care being provided, will reattempt visit.
[2024-12-30 15:19] LABS: Reflex Lactate? Lactic Acid Added
[2024-12-30] MEDS: 0.9 % Sodium Chloride 1,000 ML 999 ML IV (15:22)
[2024-12-30] MEDS: Loperamide HCl 2 MG CAPSULE PO ×2 (15:23→20:06)
[2024-12-30 15:37] LABS: Glucose, Whole Blood 202 mg/dL (60-115)
[2024-12-30 20:04] LABS: Glucose, Whole Blood 139 mg/dL (60-115)
[2024-12-30 20:05] LABS: Reflex Lactate? 2 Y
[2024-12-30 21:17] LABS: ~Lactic Acid-LAB USE ONLY 2.7 mmol/L (0.5-2.0)
[2024-12-30] MEDS: Famotidine 20 MG TABLET PO (21:32)
[2024-12-30] MEDS: Gabapentin 100 MG CAPSULE PO (21:32)
[2024-12-30] MEDS: Mirtazapine 7.5 MG TABLET PO (21:32)
[2024-12-31] VITALS: BP 105/66
[2024-12-31] MEDS: Doxycycline Hyclate 100 MG in 0.9 % Sodium Chloride 250 ML 166.67 MG IV ×3 (00:38→23:21)
[2024-12-31 03:22] VITALS: BP 105/61; PULSE 94; RESP 18; TEMP 36.9; O2SAT 97
[2024-12-31] MEDS: Sodium Bicarbonate 8.4% 150 MEQ in Dextrose 5 % 850 ML 125 MEQ IV (05:30)
[2024-12-31] MEDS: Heparin Sodium,Porcine 5,000 UNIT/ML VIAL 5000 UNIT SUBCUT ×3 (06:17→23:21)
[2024-12-31] MEDS: Omeprazole 20 MG CAPSULE.DR PO (06:17)
[2024-12-31 06:50] LABS: Hematocrit 25.7 % (37.0-47.0); Hemoglobin 9.1 g/dl (12.0-16.0); Mean Corpuscular HGB Conc 35.4 g/dl (31.0-35.0); Mean Corpuscular Hemoglobin 28.9 pg (27.0-33.0); Mean Corpuscular Volume 81.6 fL (80.0-98.0); Mean Platelet Volume 10.6 fL (9.4-12.3); Platelet Count 348 X10*3/uL (160-400); Red Blood Count 3.15 X10*6/uL (4.20-5.50); Red Cell Distribution Width 14.6 % (11.0-16.0)
[2024-12-31 06:51] LABS: WBC ABN SCTR FOR CBC 1
[2024-12-31 07:01] VITALS: BP 108/61; PULSE 92; RESP 18; TEMP 36.3; O2SAT 98
[2024-12-31 07:25] LABS: Glucose, Whole Blood 115 mg/dL (60-115)
[2024-12-31 07:33] LABS: Anion Gap 17 (12-20); Blood Urea Nitrogen 48 mg/dL (9-16); Calcium 7.2 mg/dL (8.4-10.2); Carbon Dioxide 18 mmol/L (22-29); Chloride 97 mmol/L (96-108); Estimated Glomerular Filt Rate 41; Glucose Random 132 mg/dL (60-115); Potassium 2.9 mmol/L (3.3-5.1); Sodium 129 mmol/L (135-145)
[2024-12-31] MEDS: Aspirin Enteric Coated 81 MG TABLET.DR PO (08:14)
[2024-12-31] MEDS: Sodium Bicarbonate 650 MG TABLET 1300 MG PO ×2 (08:14→21:17)
[2024-12-31] MEDS: FLUoxetine HCl 10 MG CAPSULE PO (08:14)
[2024-12-31] MEDS: HaloperidoL 5 MG TABLET PO ×2 (08:15→21:17)
[2024-12-31] MEDS: Potassium Chloride Packet 20 MEQ PACKET 40 MEQ PO ×2 (08:15→11:58)
[2024-12-31] MEDS: Metoprolol Succinate ER 25 MG TAB.ER.24H PO (08:15)
[2024-12-31] MEDS: Insulin Glargine,Hum.rec.anlog 100 UNIT/ML 10 ML VIAL 10 UNIT SUBCUT (08:16)
[2024-12-31] MEDS: 0.9 % Sodium Chloride Flush 3 ML SYRINGE IVFLUSH ×3 (08:16→21:25)
[2024-12-31 08:41] LABS: Band Neutrophils Percent 5 % (3-5); Lymphocytes Percent Manual 9 % (20-40); Monocytes Percent Manual 6 % (2-11); Neutrophils Percent Manual 80 % (45-73)
[2024-12-31 08:47] LABS: Platelet Estimate SLIGHTLY INCREASED (NORMAL); Platelet Morphology Comment NORMAL; RBC Morphology NORMAL
[2024-12-31 08:48] LABS: Burr Cells 3+ (>5) /OIF; Schistocytes 2+ (3-5) /OIF; Toxic Vacuolation PRESENT
[2024-12-31 08:49] LABS: Lymphocytes Absolute Manual 1.1 X10*3/uL (1.2-4.9); Monocytes Absolute Manual 0.8 X10*3/uL (0.1-1.2); Neutrophils Absolute Manual 10.7 X10*3/uL (2.0-8.3); White Blood Count 12.6 X10*3/uL (4.8-10.8)
[2024-12-31] MEDS: cefTRIAXone sodium 1 GM VIAL IVPUSH (09:00)
--- NOTE | 2024-12-31 09:05 | P.CONNP_ITS ---
History of Present Illness Reason for Consult Consult date: 12/31/24 Reason for consult: CAMPOS and acidosis Chief Complaint Chief complaint: Hypotension metabolic acidosis History of Present Illness Narrative: 59-year-old Moldovan-speaking female well known to me, with a h/o insulin- dependent type 2 diabetes, HTN, HLD, peripheral neuropathy, CKD 3, chronic constipation, and GERD?who presents to the ED for evaluation of generalized weakness and falls at home. she felt ?ill? and weak, though is unable to further specify any acute complaints. pt has had abdominal discomfort and constipation for the past few days. , apparently felt weak and dizzy especially with exertion or position changes. Prior to admission, pt was weak and continued to be lightheaded and dizzy, falling up to 3 times, twice in the home and once more while leaving the house to come to the hospital. Notes that pt has had episodes of low blood pressure for the past 3-4 months. Had significant episode around 1 month ago where she fell and could not stand up. Unclear if pt was evaluated at that time, but she apparently often refuses to come to the ED for evaluation. Family also noted she has had foul-smelling urine for the past few days. Review of Systems Review of Systems Yes Unobtainable due to mental condition PMFSH Past Medical History Medical History Dysphagia Anxiety disorder GERD (gastroesophageal reflux disease) Migraines Asthma On beta jordyn at home Elevated cholesterol HTN (hypertension) Smoker Diabetes Depression Heartburn Surgical History Surgical History Hx of left knee surgery History of tubal ligation History of esophagogastroduodenoscopy (EGD) H/O colonoscopy Hx of cholecystectomy Social History Social History Household Members: None Housing: Apartment Housing Other:: pt states she lives in an apartment at her daughter's house Do you presently have visiting nurse or other home services: Yes (daughter is pt's PHYSICAL THERAPY MANAGER) Alcohol intake: former Comment: Sitter Patient Tobacco Use Status: Current everyday Tobacco user Tobacco use type: Cigarette Cigarettes Per Day: 5 Years Smoked: 15 Smoked in Last 30 Days: Yes e-Cigarette/Vaping Use: Never Used Patient Interested in Nicotine Replacement: Yes Second Hand Smoke Exposure: Yes Use of substances other than those prescribed or required for medical reasons: No Currently Displaying Signs/Symptoms of Drug Intoxication Withdrawal: No Have you been hit, kicked, punched, or otherwise hurt by someone within the past year? If so, by whom?: No Do you feel safe in your current relationship?: No Current Relationship Is there a partner from a previous relationship who is making you feel unsafe now?: No Are you made to feel afraid or neglected: No Mormonism Healthcare Practices: Sabianism Advance Directives: No Advance Directives Information Provided: Yes Do you have a plan to hurt others: No Plan Recently lost weight without trying: Yes How much weight loss: 2-13 pounds Eating poorly because of decreased appetite: No Nutrition screen score: 3 Nutrition Risks: Difficulty chewing, Difficulty swallowing and On aspiration precautions Patient : No : No Poor oral hygiene: No service: No Current occupational status: disabled Meds Allergies Allergy/AdvReac Type Severity Reaction Status Date / Time iron Allergy Mild UNKNOWN Verified 12/29/24 08:22 Iodinated Contrast Media Allergy Unknown UNKNOWN Verified 12/29/24 08:22 [IV Dye, Iodine Containing] iodine [IODINE] Allergy Unknown RASH Verified 12/29/24 08:22 seafood Allergy Unknown Unknown Verified 12/29/24 08:22 Active Medications: Current Medications Acetaminophen (Acetaminophen 325 Mg Tablet) 650 mg PO Q6H PRN PRN Reason: Pain, Mild 1-3,fever,headache Last Admin: 12/30/24 15:23 Dose: 650 mg Aspirin (Aspirin Enteric Coated 81 Mg Tablet.Dr) 81 mg PO DAILY [facility] Last Admin: 12/31/24 08:14 Dose: 81 mg Calcium Carbonate (Calcium Carbonate 750 Mg Tab.Chew) 750 mg PO Q4H PRN PRN Reason: Heartburn Ceftriaxone Sodium (Ceftriaxone Sodium 1 Gm Vial) 1 gm IVPUSH Q24H [facility] Last Admin: 12/30/24 07:43 Dose: 1 gm Dextrose (Dextrose 50 % 25 Gm/50 Ml Syringe) 25 gm IVPUSH Q15M PRN; Protocol PRN Reason: per Hypoglycemia Standing Ord. Famotidine (Famotidine 20 Mg Tablet) 20 mg PO BEDTIME [facility] Last Admin: 12/30/24 21:32 Dose: 20 mg Fluoxetine HCl (Fluoxetine Hcl 10 Mg Capsule) 10 mg PO DAILY [facility] Last Admin: 12/31/24 08:14 Dose: 10 mg Gabapentin (Gabapentin 100 Mg Capsule) 100 mg PO BEDTIME [facility] Last Admin: 12/30/24 21:32 Dose: 100 mg Glucose (Glucose Gel 15 Gm Gel..Gram.) 15 gm PO Q15M PRN; Protocol PRN Reason: per Hypoglycemia Standing Ord. Haloperidol (Haloperidol 5 Mg Tablet) 5 mg PO BID [facility] Last Admin: 12/31/24 08:15 Dose: 5 mg Heparin Sodium (Porcine) (Heparin Sodium,Porcine 5,000 Unit/Ml Vial) 5,000 unit SUBCUT Q8H [facility] Last Admin: 12/31/24 06:17 Dose: 5,000 unit Doxycycline Hyclate 100 mg/ (Sodium Chloride) 250 mls @ 166.67 mls/hr IV Q12H [facility] Last Infusion: 12/31/24 02:59 Dose: Infused Insulin Glargine (Insulin Glargine,Hum.Rec.Anlog 100 Unit/Ml 10 Ml Vial) 10 unit SUBCUT DAILY [facility] Last Admin: 12/31/24 08:16 Dose: 10 unit Insulin Human Lispro (Insulin Lispro 100 Unit/Ml 3 Ml Vial) 0 unit SUBCUT QIDACHS [facility]; Protocol Last Admin: 12/31/24 08:25 Dose: Not Given Loperamide HCl (Loperamide Hcl 2 Mg Capsule) 2 mg PO Q4H PRN PRN Reason: Diarrhea Last Admin: 12/30/24 20:06 Dose: 2 mg Magnesium Hydroxide (Milk Of Magnesia 30 Ml Oral.Susp) 30 ml PO DAILY PRN PRN Reason: Constipation Melatonin (Melatonin 3 Mg Tablet) 6 mg PO BEDTIME PRN PRN Reason: Insomnia Metoprolol Succinate (Metoprolol Succinate Er 25 Mg Tab.Er.24h) 25 mg PO DAILY [facility]; Protocol Last Admin: 12/31/24 08:15 Dose: 25 mg Mirtazapine (Mirtazapine 7.5 Mg Tablet) 7.5 mg PO BEDTIME [facility] Last Admin: 12/30/24 21:32 Dose: 7.5 mg Omeprazole (Omeprazole 20 Mg Capsule.Dr) 20 mg PO DAILY@0630 [facility] Last Admin: 12/31/24 06:17 Dose: 20 mg Potassium Chloride (Potassium Chloride Packet 20 Meq Packet) 40 meq PO Q2H [facility] Stop: 12/31/24 10:01 Last Admin: 12/31/24 08:15 Dose: 40 meq Senna (Sennosides 8.6 Mg Tablet) 17.2 mg PO BEDTIME PRN PRN Reason: constipation Sodium Bicarbonate (Sodium Bicarbonate 650 Mg Tablet) 1,300 mg PO BID [facility] Last Admin: 12/31/24 08:14 Dose: 1,300 mg Sodium Chloride (0.9 % Sodium Chloride Flush 3 Ml Syringe) 3 ml IVFLUSH QSHIFT [facility] Last Admin: 12/31/24 08:16 Dose: 3 ml Home Medications ?Medication ?Instructions ?Recorded ?Confirmed ?Last Taken ?Type aspirin 81 mg tablet,delayed 81 mg PO DAILY 04/21/22 12/30/24 05/19/23 History release atorvastatin 20 mg tablet 20 mg PO BEDTIME 04/21/22 12/30/24 05/19/23 History benztropine 0.5 mg tablet 0.5 mg PO BID 04/21/22 12/30/24 05/19/23 History fluoxetine 10 mg capsule 10 mg PO DAILY 04/21/22 12/30/24 05/19/23 History insulin syringe-needle U-100 0.5 #10 ea 04/21/22 12/26/24 Unknown History mL 30 gauge x 1/2 (UltiCare) metoprolol succinate 50 mg 50 mg PO DAILY 04/21/22 12/30/24 05/19/23 History tablet,extended release 24 hr mirtazapine 7.5 mg tablet 7.5 mg PO BEDTIME 04/21/22 12/30/24 05/19/23 History haloperidol 5 mg tablet 1 tab PO BID 05/06/22 12/30/24 05/19/23 History prazosin 2 mg capsule 4 mg PO BEDTIME 05/20/23 12/30/24 05/19/23 History gabapentin 100 mg capsule 100 mg PO BEDTIME 05/30/24 12/30/24 Unknown History insulin glargine 100 unit/mL (3 10 unit subcut DAILY 08/27/24 12/30/24 Unknown History mL) subcutaneous pen (Lantus Solostar U-100 Insulin) dulaglutide 0.75 mg/0.5 mL 0.75 mg subcut SA 11/14/24 12/30/24 Unknown History subcutaneous pen injector (Trulicity) empagliflozin 10 mg tablet 10 mg PO QAM 11/14/24 12/30/24 Unknown History (Jardiance) blood sugar diagnostic (FreeStyle #10 ea 12/04/24 12/26/24 Unknown History Lite Strips) lancets 33 gauge (TRUEplus Lancets) #100 ea 12/04/24 12/26/24 Unknown History pen needle, diabetic 31 gauge x #100 ea 12/04/24 12/26/24 Unknown History 1 (Easy Touch) esomeprazole magnesium 40 mg 40 mg PO DAILY@0630 12/30/24 12/30/24 Unknown History capsule,delayed release (Nexium) prazosin 2 mg capsule 2 mg PO DAILY 12/30/24 12/30/24 Unknown History sennosides 8.6 mg tablet (Natural 17.2 mg PO BEDTIME PRN constipation 12/30/24 12/30/24 Unknown History Senna Laxative) Physical Exam Vital Signs: Last Vital Signs Temp 97.3 F 12/31/24 07:01 Pulse 92 12/31/24 07:01 Resp 18 12/31/24 07:01 BP 108/61 12/31/24 07:01 Pulse Ox 98 12/31/24 07:01 O2 Del Method Nasal Cannula 12/31/24 07:01 O2 Flow Rate 2 12/31/24 07:01 BMI result Body Mass Index 23.2 Const General: ill appearing Neck Neck: Yes supple Resp Auscultation: clear to auscultation bilaterally Cardio Palpation: no palpable S3 Heart sounds: no rubs GI Palpation (GI): Soft to palpation Auscultation: normal bowel sounds Neuro Motor exam (neuro): no asterixis Results Lab Results 12/31/24 06:42 12/31/24 06:42 Lab results: Chemistry 12/29/24 12/29/24 12/29/24 08:46 16:18 16:18 Sodium 127 L 131 L 131 L Potassium 4.8 4.6 Carbon Dioxide 9 L* D BUN 39 H Creatinine 1.93 H Calcium 9.1 12/29/24 12/29/24 12/29/24 16:18 16:18 16:18 Sodium Potassium 4.4 Carbon Dioxide 8 L* 9 L* BUN 41 H 42 H Creatinine 1.59 H Calcium 12/29/24 12/29/24 12/29/24 16:18 16:18 20:12 Sodium 132 L Potassium Carbon Dioxide BUN Creatinine 1.62 H Calcium 8.0 L D 8.2 L 12/29/24 12/29/24 12/29/24 20:12 20:12 20:12 Sodium 131 L Potassium 3.8 3.8 Carbon Dioxide 9 L* 9 L* BUN 44 H Creatinine Calcium 12/29/24 12/29/24 12/29/24 20:12 20:12 20:12 Sodium Potassium Carbon Dioxide BUN 44 H Creatinine 1.71 H 1.70 H Calcium 8.1 L 8.0 L 12/30/24 12/30/24 12/30/24 03:14 06:10 13:45 Sodium 134 L 132 L Cancelled Potassium 3.8 3.7 Cancelled Carbon Dioxide 14 L 13 L Cancelled BUN 53 H 52 H Cancelled Creatinine 1.77 H 1.73 H Cancelled Calcium 7.9 L 7.8 L Cancelled 12/30/24 12/31/24 13:46 06:42 Sodium 132 L 129 L Potassium 3.6 2.9 L* Carbon Dioxide 14 L 18 L BUN 54 H 48 H Creatinine 1.68 H 1.33 Calcium 7.6 L 7.2 L Hematology 12/29/24 12/30/24 12/31/24 08:46 06:10 06:42 WBC 20.9 H 12.7 H 12.6 H Hgb 11.1 L 9.2 L 9.1 L Plt Count 406 H D 303 D 348 Urinalysis 12/29/24 09:21 Urine Color DK YELLOW Urine Appearance Hazy Urine pH 5.5 Ur Specific O'Brien 1.025 Urine Protein 30 (1+) H Urine Glucose (UA) 500 H Urine Ketones Trace Urine Blood Small (1+) H Urine Nitrite Negative Ur Leukocyte Esterase Trace H Urine RBC 11-20 H Urine WBC 21-50 H Ur Squamous Epith Cells >20 Hyaline Casts >20 Assessment and Plan (1) Hyponatremia: Status: Acute (2) CKD (chronic kidney disease): Qualifiers: Chronic kidney disease stage: stage 3 (moderate) Chronic kidney disease stage 3 subtype: stage 3b (GFR 30-44) Qualified Code(s): N18.32 - Chronic kidney disease, stage 3b Status: Acute (3) Hypotension: Status: Acute (4) Metabolic acidosis: Status: Acute Plan 59 yr old woman with CKD with severe acidosis an dhypotension Renal function was close to baseline on admission and currently improving Hyponatremia Na is worse Check Urine Na REstrict oral free waater intake Severe acidosis in a setting of shock Elevated Lactic acid Responding to supplementation Maintain sbp> 100 UTI with serracia Agree with antibiotics Procedures Date of Service Date of Service: 12/31/24
--- NOTE | 2024-12-31 09:23 | HO.PM.IMPN ---
Subjective Subjective Date of Service: 12/31/24 Interval History: seen and evlauated this morning more delerius overnight, sitter at bedside Cr and acidosis improving having diarrhea, less frequent BP improved no other events overnight Review of Systems Review of Systems: Yes all other systems are reviewed and are negative Physical Exam Vital Signs: Vital Signs: Last Vital Signs Temp 97.3 F 12/31/24 07:01 Pulse 92 12/31/24 07:01 Resp 18 12/31/24 07:01 BP 108/61 12/31/24 07:01 Pulse Ox 98 12/31/24 07:01 O2 Del Method Nasal Cannula 12/31/24 07:01 O2 Flow Rate 2 12/31/24 07:01 BMI result Body Mass Index 23.2 Const: Other: Constitutional : interactive, not in distress Cardiovascular : no JVP, no lower extremity edema Respiratory : bilateral chest movement, not in resp distress , on O2 supplement, minimal basal crackles Gastrointestinal: soft, lax, mild left abd pain sided tenderness, no surgical signs Skin : Warm, Dry Neurological : Alert & oriented to self and place but otherwise confused and mildly delerious , No focal deficit Objective Data Active Medications Acetaminophen (Acetaminophen 325 Mg Tablet) 650 mg PO Q6H PRN PRN Reason: Pain, Mild 1-3,fever,headache Last Admin: 12/30/24 15:23 Dose: 650 mg Documented By: MELVINA Aspirin (Aspirin Enteric Coated 81 Mg Tablet.) 81 mg PO DAILY [facility] Last Admin: 12/31/24 08:14 Dose: 81 mg Documented By: CARMEN Calcium Carbonate (Calcium Carbonate 750 Mg Tab.Chew) 750 mg PO Q4H PRN PRN Reason: Heartburn Ceftriaxone Sodium (Ceftriaxone Sodium 1 Gm Vial) 1 gm IVPUSH Q24H [facility] Last Admin: 12/30/24 07:43 Dose: 1 gm Documented By: MELVINA Dextrose (Dextrose 50 % 25 Gm/50 Ml Syringe) 25 gm IVPUSH Q15M PRN; Protocol PRN Reason: per Hypoglycemia Standing Ord. Famotidine (Famotidine 20 Mg Tablet) 20 mg PO BEDTIME [facility] Last Admin: 12/30/24 21:32 Dose: 20 mg Documented By: LEONARDO Fluoxetine HCl (Fluoxetine Hcl 10 Mg Capsule) 10 mg PO DAILY [facility] Last Admin: 12/31/24 08:14 Dose: 10 mg Documented By: CARMEN Gabapentin (Gabapentin 100 Mg Capsule) 100 mg PO BEDTIME [facility] Last Admin: 12/30/24 21:32 Dose: 100 mg Documented By: LEONARDO Glucose (Glucose Gel 15 Gm Gel..Gram.) 15 gm PO Q15M PRN; Protocol PRN Reason: per Hypoglycemia Standing Ord. Haloperidol (Haloperidol 5 Mg Tablet) 5 mg PO BID [facility] Last Admin: 12/31/24 08:15 Dose: 5 mg Documented By: CARMEN Heparin Sodium (Porcine) (Heparin Sodium,Porcine 5,000 Unit/Ml Vial) 5,000 unit SUBCUT Q8H [facility] Last Admin: 12/31/24 06:17 Dose: 5,000 unit Documented By: LEONARDO Doxycycline Hyclate 100 mg/ (Sodium Chloride) 250 mls @ 166.67 mls/hr IV Q12H [facility] Last Infusion: 12/31/24 02:59 Dose: Infused Documented By: LEONARDO Insulin Glargine (Insulin Glargine,Hum.Rec.Anlog 100 Unit/Ml 10 Ml Vial) 10 unit SUBCUT DAILY [facility] Last Admin: 12/31/24 08:16 Dose: 10 unit Documented By: CARMEN Insulin Human Lispro (Insulin Lispro 100 Unit/Ml 3 Ml Vial) 0 unit SUBCUT QIDACHS [facility]; Protocol Last Admin: 12/31/24 08:25 Dose: Not Given Documented By: CARMEN Non-Admin Reason: No Insulin Coverage Loperamide HCl (Loperamide Hcl 2 Mg Capsule) 2 mg PO Q4H PRN PRN Reason: Diarrhea Last Admin: 12/30/24 20:06 Dose: 2 mg Documented By: RUMA Magnesium Hydroxide (Milk Of Magnesia 30 Ml Oral.Susp) 30 ml PO DAILY PRN PRN Reason: Constipation Melatonin (Melatonin 3 Mg Tablet) 6 mg PO BEDTIME PRN PRN Reason: Insomnia Metoprolol Succinate (Metoprolol Succinate Er 25 Mg Tab.Er.24h) 25 mg PO DAILY [facility]; Protocol Last Admin: 12/31/24 08:15 Dose: 25 mg Documented By: CARMEN Mirtazapine (Mirtazapine 7.5 Mg Tablet) 7.5 mg PO BEDTIME [facility] Last Admin: 12/30/24 21:32 Dose: 7.5 mg Documented By: LEONARDO Omeprazole (Omeprazole 20 Mg Capsule.Dr) 20 mg PO DAILY@0630 [facility] Last Admin: 12/31/24 06:17 Dose: 20 mg Documented By: LEONARDO Potassium Chloride (Potassium Chloride Packet 20 Meq Packet) 40 meq PO Q2H [facility] Stop: 12/31/24 10:01 Last Admin: 12/31/24 08:15 Dose: 40 meq Documented By: CARMEN Senna (Sennosides 8.6 Mg Tablet) 17.2 mg PO BEDTIME PRN PRN Reason: constipation Sodium Bicarbonate (Sodium Bicarbonate 650 Mg Tablet) 1,300 mg PO BID [facility] Last Admin: 12/31/24 08:14 Dose: 1,300 mg Documented By: CARMEN Sodium Chloride (0.9 % Sodium Chloride Flush 3 Ml Syringe) 3 ml IVFLUSH QSHIFT [facility] Last Admin: 12/31/24 08:16 Dose: 3 ml Documented By: CARMEN Labs 12/31/24 06:42 12/31/24 06:42 Labs: Laboratory Results - last 24 hr 12/30/24 12/30/24 12/30/24 01:43 01:57 10:50 MCV MCH MCHC RDW Plt Count MPV Immature Gran % (Auto) Neut % (Auto) Lymph % (Auto) [place] % (Auto) Eos % (Auto) Baso % (Auto) Lymph # (Auto) [place] # (Auto) Eos # (Auto) Baso # (Auto) Abs Immat Gran (auto) Absolute Neuts (auto) Absolute Nucleated RBC Nucleated RBC % (auto) Neutrophils % (Manual) Band Neutrophils % Lymphocytes % (Manual) Monocytes % (Manual) Abs Neuts (Manual) Lymphocytes # (Manual) Monocytes # (Manual) Toxic Vacuolation Platelet Estimate Plt Morphology Comment RBC Morphology Regulo Cells Schistocytes Anion Gap Estim Creat Clear Calc Estimated GFR POC Glucose 331 H Random Glucose Lactic Acid Lactic Acid F/U @ 2Hr Lactic Acid F/U @ 4Hr Calcium Stool Leukocytes, Qual NEGATIVE Stl C. cayetanensis PCR Not Detected Stool Rotavirus A PCR Not Detected Stl Adenov F 40/41 PCR Not Detected Stool Astrovirus (PCR) Not Detected Stool Campylobacter PCR Not Detected Stool Cryptosporidium PCR Not Detected Stl Sh Tox Pr E STEC PCR Not Detected Stool E coli O157 PCR Not applicable Stl Enterotoxigenic E PCR Not Detected Stool EPEC (PCR) Not Detected Stool EAEC (PCR) Not Detected Stl E. histolytica PCR Not Detected Stool Giardia Lamblia PCR Not Detected Stl P. shigelloides PCR Not Detected Stool Salmonella PCR Not Detected Stool Sapovirus (PCR) Not Detected Stl Shigella/EIEC PCR Not Detected St Y.enterocolitica PCR Not Detected Stool Vibrio (PCR) Not Detected Stl Vibrio cholerae PCR Not Detected Stl Norovirus GI/GII PCR Not Detected Respiratory Panel Alexandra See Note Adenovirus (Rapid PCR) Not Detected B.pert (TEM-PCR) Not Detected B.parapertussis DNA PCR Not Detected C. pneumoniae DNA (PCR) Not Detected Coronavirus OC43 (PCR) Not Detected Coronavirus HKU1 (PCR) Not Detected Coronavirus 229E (PCR) Not Detected Coronavirus NL63 (PCR) Not Detected Human Metapneumovir PCR Not Detected Influenza A (RT-PCR) Not Detected Influenza A (H1) PCR Not Detected Influ A (H1/09) PCR Not Detected Influenza A (H3) PCR Not Detected Influenza B (RT-PCR) Not Detected M. pneumoniae (PCR) Not Detected Parainfluenza 1 (PCR) Not Detected Parainfluenza 2 (PCR) Not Detected Parainfluenza 3 (PCR) Not Detected Parainfluenza 4 (PCR) Not Detected RSV (PCR) Not Detected Entero/Rhino (PCR) Not Detected SARS-CoV-2 RNA (RT-PCR) Not Detected 12/30/24 12/30/24 12/30/24 13:14 13:45 13:46 MCV MCH MCHC RDW Plt Count MPV Immature Gran % (Auto) Neut % (Auto) Lymph % (Auto) [place] % (Auto) Eos % (Auto) Baso % (Auto) Lymph # (Auto) [place] # (Auto) Eos # (Auto) Baso # (Auto) Abs Immat Gran (auto) Absolute Neuts (auto) Absolute Nucleated RBC Nucleated RBC % (auto) Neutrophils % (Manual) Band Neutrophils % Lymphocytes % (Manual) Monocytes % (Manual) Abs Neuts (Manual) Lymphocytes # (Manual) Monocytes # (Manual) Toxic Vacuolation Platelet Estimate Plt Morphology Comment RBC Morphology Regulo Cells Schistocytes Anion Gap Cancelled 20 Estim Creat Clear Calc Cancelled 31.6 Estimated GFR Cancelled 31 POC Glucose Random Glucose Cancelled 283 H Lactic Acid 4.7 H* Lactic Acid F/U @ 2Hr Lactic Acid F/U @ 4Hr Calcium Cancelled 7.6 L Stool Leukocytes, Qual Stl C. cayetanensis PCR Stool Rotavirus A PCR Stl Adenov F 40/41 PCR Stool Astrovirus (PCR) Stool Campylobacter PCR Stool Cryptosporidium PCR Stl Sh Tox Pr E STEC PCR Stool E coli O157 PCR Stl Enterotoxigenic E PCR Stool EPEC (PCR) Stool EAEC (PCR) Stl E. histolytica PCR Stool Giardia Lamblia PCR Stl P. shigelloides PCR Stool Salmonella PCR Stool Sapovirus (PCR) Stl Shigella/EIEC PCR St Y.enterocolitica PCR Stool Vibrio (PCR) Stl Vibrio cholerae PCR Stl Norovirus GI/GII PCR Respiratory Panel Alexandra Adenovirus (Rapid PCR) B.pert (TEM-PCR) B.parapertussis DNA PCR C. pneumoniae DNA (PCR) Coronavirus OC43 (PCR) Coronavirus HKU1 (PCR) Coronavirus 229E (PCR) Coronavirus NL63 (PCR) Human Metapneumovir PCR Influenza A (RT-PCR) Influenza A (H1) PCR Influ A (H1/09) PCR Influenza A (H3) PCR Influenza B (RT-PCR) M. pneumoniae (PCR) Parainfluenza 1 (PCR) Parainfluenza 2 (PCR) Parainfluenza 3 (PCR) Parainfluenza 4 (PCR) RSV (PCR) Entero/Rhino (PCR) SARS-CoV-2 RNA (RT-PCR) 12/30/24 12/30/24 12/30/24 15:32 17:54 20:00 MCV MCH MCHC RDW Plt Count MPV Immature Gran % (Auto) Neut % (Auto) Lymph % (Auto) [place] % (Auto) Eos % (Auto) Baso % (Auto) Lymph # (Auto) [place] # (Auto) Eos # (Auto) Baso # (Auto) Abs Immat Gran (auto) Absolute Neuts (auto) Absolute Nucleated RBC Nucleated RBC % (auto) Neutrophils % (Manual) Band Neutrophils % Lymphocytes % (Manual) Monocytes % (Manual) Abs Neuts (Manual) Lymphocytes # (Manual) Monocytes # (Manual) Toxic Vacuolation Platelet Estimate Plt Morphology Comment RBC Morphology Regulo Cells Schistocytes Anion Gap Estim Creat Clear Calc Estimated GFR POC Glucose 202 H 139 H Random Glucose Lactic Acid Lactic Acid F/U @ 2Hr 3.0 H* Lactic Acid F/U @ 4Hr Calcium Stool Leukocytes, Qual Stl C. cayetanensis PCR Stool Rotavirus A PCR Stl Adenov F 40/ PCR Stool Astrovirus (PCR) Stool Campylobacter PCR Stool Cryptosporidium PCR Stl Sh Tox Pr E STEC PCR Stool E coli O157 PCR Stl Enterotoxigenic E PCR Stool EPEC (PCR) Stool EAEC (PCR) Stl E. histolytica PCR Stool Giardia Lamblia PCR Stl P. shigelloides PCR Stool Salmonella PCR Stool Sapovirus (PCR) Stl Shigella/EIEC PCR St Y.enterocolitica PCR Stool Vibrio (PCR) Stl Vibrio cholerae PCR Stl Norovirus GI/GII PCR Respiratory Panel Alexandra Adenovirus (Rapid PCR) B.pert (TEM-PCR) B.parapertussis DNA PCR C. pneumoniae DNA (PCR) Coronavirus OC43 (PCR) Coronavirus HKU1 (PCR) Coronavirus 229E (PCR) Coronavirus NL63 (PCR) Human Metapneumovir PCR Influenza A (RT-PCR) Influenza A (H1) PCR Influ A (H1/09) PCR Influenza A (H3) PCR Influenza B (RT-PCR) M. pneumoniae (PCR) Parainfluenza 1 (PCR) Parainfluenza 2 (PCR) Parainfluenza 3 (PCR) Parainfluenza 4 (PCR) RSV (PCR) Entero/Rhino (PCR) SARS-CoV-2 RNA (RT-PCR) 12/30/24 12/31/24 12/31/24 20:43 06:42 07:08 MCV 81.6 MCH 28.9 MCHC 35.4 H RDW 14.6 Plt Count 348 MPV 10.6 Immature Gran % (Auto) Cancelled Neut % (Auto) Cancelled Lymph % (Auto) Cancelled [place] % (Auto) Cancelled Eos % (Auto) Cancelled Baso % (Auto) Cancelled Lymph # (Auto) Cancelled [place] # (Auto) Cancelled Eos # (Auto) Cancelled Baso # (Auto) Cancelled Abs Immat Gran (auto) Cancelled Absolute Neuts (auto) Cancelled Absolute Nucleated RBC 0.000 Nucleated RBC % (auto) 0.0 Neutrophils % (Manual) 80 H Band Neutrophils % 5 Lymphocytes % (Manual) 9 L Monocytes % (Manual) 6 Abs Neuts (Manual) 10.7 H Lymphocytes # (Manual) 1.1 L Monocytes # (Manual) 0.8 Toxic Vacuolation PRESENT Platelet Estimate SLIGHTLY INCREASED Plt Morphology Comment NORMAL RBC Morphology NORMAL [place] Cells 3+ (>5) Schistocytes 2+ (3-5) Anion Gap 17 Estim Creat Clear Calc 40.0 Estimated GFR 41 POC Glucose 115 Random Glucose 132 H Lactic Acid Lactic Acid F/U @ 2Hr Lactic Acid F/U @ 4Hr 2.7 H* Calcium 7.2 L Stool Leukocytes, Qual Stl C. cayetanensis PCR Stool Rotavirus A PCR Stl Adenov F 40/41 PCR Stool Astrovirus (PCR) Stool Campylobacter PCR Stool Cryptosporidium PCR Stl Sh Tox Pr E STEC PCR Stool E coli O157 PCR Stl Enterotoxigenic E PCR Stool EPEC (PCR) Stool EAEC (PCR) Stl E. histolytica PCR Stool Giardia Lamblia PCR Stl P. shigelloides PCR Stool Salmonella PCR Stool Sapovirus (PCR) Stl Shigella/EIEC PCR St Y.enterocolitica PCR Stool Vibrio (PCR) Stl Vibrio cholerae PCR Stl Norovirus GI/GII PCR Respiratory Panel Alexandra Adenovirus (Rapid PCR) B.pert (TEM-PCR) B.parapertussis DNA PCR C. pneumoniae DNA (PCR) Coronavirus OC43 (PCR) Coronavirus HKU1 (PCR) Coronavirus 229E (PCR) Coronavirus NL63 (PCR) Human Metapneumovir PCR Influenza A (RT-PCR) Influenza A (H1) PCR Influ A (H1/09) PCR Influenza A (H3) PCR Influenza B (RT-PCR) M. pneumoniae (PCR) Parainfluenza 1 (PCR) Parainfluenza 2 (PCR) Parainfluenza 3 (PCR) Parainfluenza 4 (PCR) RSV (PCR) Entero/Rhino (PCR) SARS-CoV-2 RNA (RT-PCR) Microbiology Microbiology Results: Microbiology 12/29/24 09:21 Urine Culture - Final Urine Catheterized - Straight Catheter Serratia marcescens 12/29/24 08:46 Blood Culture - Preliminary Blood - Venous No growth after 24 hours. 12/29/24 08:46 Blood Culture - Preliminary Blood - Venous No growth after 24 hours. Assessment and Plan (1) Lactic acidosis: Status: Acute (2) Sepsis: Status: Acute (3) Metabolic acidosis: Status: Acute (4) Hyponatremia: Status: Acute (5) UTI (urinary tract infection): Status: Acute Plan Pt is a 59-year-old [place]an-speaking female with a PMH significant for insulin-dependent type 2 diabetes, HTN, HLD, peripheral neuropathy, CKD 3, chronic constipation, and GERD?who presents to the ED for evaluation of generalized weakness and falls at home. Pt is admitted to the hospital for treatment and further evaluation of hypotension and acute metabolic acidosis in the setting of severe sepsis secondary to UTI vs pneumonia. Severe sepsis 2/2 UTI vs Pneumonia complicated with hypotension BP Improved with boluses and albumin, midodrine Source of infection unclear: UTI empirically cover with Doxy and Ceftriaxone, started 12/29/2024 Critical care consult appreciated Follow cultures Monitor BP IV fluid as needed Hold Benzotropine, Doxazosin which are likely contributing to low BP CAMPOS on CKD 3 complicated with Acute metabolic acidosis Creatinine improved during hospital stay from 1.9 to 1.3 VBG improved DC 125 mls/h switch to PO NaHCO3 follow BMP nephro following Diarrhea likely related to fecal impaction, new Abx negative stool studies imodium if needed DC rectal tube Acute on chronic hyponatremia 129 today, runs 131-134 monitor BMP Acute hypokalemia give replacement and follow PT To follow when corrected UTI Growing serratia in urine continue Ceftriaxone Acute lactic acidosis likely from acute kidney injury, Generalized weakness with falls at home PT evaluation Insulin-dependent type 2 diabetes Sliding-scale insulin, Lantus 10 units Diabetic diet HLD Continue statin Peripheral neuropathy Continue gabapentin GERD Continue famotidine Mood disorder Continue home mood stabilizers Full Code DVT Prophylaxis: Heparin Pt will require a hospitalization overnight for treatment of?hypotension and acute metabolic acidosis in the setting of severe sepsis of UTI vs pneumonia. Pt will require hospital level care for administration of IV antibiotics and continuous close monitoring of labs and blood pressure. Quality Stroke Does the patient have a stroke diagnosis?: No VTE Prior VTE?: No VTE Risk Level:: Medical - moderate - high VTE Device Contraindication: Treatment Not Indicated VTE Drug Contraindication: N/A - Med Ordered
[2024-12-31] MEDS: Loperamide HCl 2 MG CAPSULE PO ×2 (09:30→11:59)
[2024-12-31 11:29] VITALS: BP 105/57; PULSE 92; RESP 20; TEMP 36.3; O2SAT 100
[2024-12-31 11:37] LABS: Glucose, Whole Blood 168 mg/dL (60-115)
[2024-12-31] MEDS: Insulin Lispro 100 UNIT/ML 3 ML VIAL SUBCUT (12:40)
--- NOTE | 2024-12-31 12:55 | MHC.CM.PN ---
Pt has been sleeping, her dtr was in the room and provided assessment information, pt. is SSO, as is dtr. She lives with her dtr and gr dtr. Dtr is her RESIDENTIAL DESIGNER, and HCP. For DME, she uses a walker. She has 18 hrs a week for RESIDENTIAL DESIGNER hrs. Family will transport home at DC. DCP: TBD, maybe home with services. CM to follow for DC needs.
[2024-12-31 13:34] LABS: Anion Gap 15 (12-20); Blood Urea Nitrogen 49 mg/dL (9-16); Carbon Dioxide 22 mmol/L (22-29); Chloride 99 mmol/L (96-108); Creatinine Clr Calc Pharmacy 40.9; Estimated Glomerular Filt Rate 42; Glucose Random 155 mg/dL (60-115); Potassium 3.5 mmol/L (3.3-5.1); Sodium 132 mmol/L (135-145)
[2024-12-31] MEDS: 0.9 % Sodium Chloride 1,000 ML 999 ML IV (14:29)
[2024-12-31 15:10] LABS: Reflex Lactate? Lactic Acid Added
[2024-12-31 16:00] VITALS: BP 105/59; PULSE 93; RESP 20; TEMP 36.5; O2SAT 97
[2024-12-31 16:32] LABS: Glucose, Whole Blood 95 mg/dL (60-115)
[2024-12-31 16:34] LABS: ~Lactic Acid-LAB USE ONLY 2.3 mmol/L (0.5-2.0)
[2024-12-31 17:50] LABS: Reflex Lactate? 2 Y
[2024-12-31 19:09] LABS: ~Lactic Acid-LAB USE ONLY 2.3 mmol/L (0.5-2.0)
--- NOTE | 2024-12-31 19:43 | PC.NURSE ---
Addendum entered by Samreen Thrasher RN 01/01/25 07:48: No issues with infiltrates. Patient continues with +radial pulses and cms, +strong bilateral grasp. Denies pain. Pt reminded to elevate arms. U/S IV placed to LUE by charger operator, intact and patent with +blood return. Breathing remains even and unlabored without distress on 2L nc with spo2 maintained. Addendum entered by Samreen Thrasher RN 01/01/25 01:34: verbal orders to call pharmacy for advisement on infiltrated doxycycline. Per pharmacy, warm compress is indicated. Warm compress applied and arm elevated on pillow. 01:00 hour: BNP back elevated from previous, now 1576. MD notified, cardiology consult placed. Addendum entered by Samreen Thrasher RN 01/01/25 00:49: 21:00 hour: [id number] Armor Crewman notified MD that patient has faint crackles in the bilateral bases and is on 2.5L nc, c/o SOB on exertion to bedside commode. No SOB or distress at rest during which breathing was observed even and unlabored without distress. Pt on 2.5L nc on assuming care this evening, increased from baseline during the day. Pt remains on continuous spo2 probe with spo2 maintained 90% and above. Covering Dr. Patricia notified. Orders for CXR obtained. Results back 23:00 hour, MD notified, with orders placed for stat BNP and Echo. During midnight hour, lab presented to drawn BNP. During this time, the patients only remaining IV in the left distal forearm was noted to now be newly infiltrated. Doxycycline that had been infusing was stopped, IV aspirated, and elevated. MD notified, awaiting new orders. telehealth case manager attempting to place U/S to upper extremity. Addendum entered by Samreen Thrasher RN 12/31/24 19:57: verbal orders to continue to elevate right limb. [id number] Armor Crewman inquired about additional abdominal imaging to reassess versus initial imaging due to elevated lactic earlier today and continued diarrhea. Stool labs including cdiff have been negative. advised no prn immodium, otherwise no new orders advised. Plan of care continues. Original Note: Assumed care at 19:00. IV bolus infusing via right arm IV was noted to be infiltrated on safe start, as evidenced by non-pitting edema and bruising. Bolus had ended. IV was discontinued and DSD placed. Pt denies pain and has +bilateral grasp strength and radial pulses as well as cms. Covering Dr. Patricia was made aware with further interventions requested. Limb elevated and saline soak was applied pending further interventions.
[2024-12-31 19:53] VITALS: BP 139/66; PULSE 103; RESP 18; TEMP 36.7; O2SAT 93
[2024-12-31 20:33] LABS: Glucose, Whole Blood 126 mg/dL (60-115)
[2024-12-31] MEDS: Famotidine 20 MG TABLET PO (21:17)
[2024-12-31] MEDS: Gabapentin 100 MG CAPSULE PO (21:17)
[2024-12-31] MEDS: Mirtazapine 7.5 MG TABLET PO (21:17)
[2025-01-01] VITALS (10 sets, daily range): BP systolic 104–137; BP diastolic 57–67; PULSE 82–92; RESP 16–18; TEMP 36.4–37; O2SAT 91–100
[2025-01-01 01:23] LABS: B Type Natriuretic Peptide 1576 pg/mL (<100)
[2025-01-01] MEDS: Heparin Sodium,Porcine 5,000 UNIT/ML VIAL 5000 UNIT SUBCUT ×3 (06:48→21:59)
[2025-01-01] MEDS: Omeprazole 20 MG CAPSULE.DR PO (06:48)
--- NOTE | 2025-01-01 07:00 | CA_ITS ---
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 The visually estimated ejection fraction is between 55-60%. - No obvious valvular pathology seen on this study. - Mild pulmonary hypertension is present. Findings Left Ventricle Normal left ventricular cavity size. The left ventricular systolic function is normal. The visually estimated ejection fraction is between 55-60%. There is no evidence of regional wall motion abnormalities. Diastolic function is normal for age. There is mild septal asymmetric hypertrophy. Right Ventricle Mildly increased right ventricular cavity size. There is low normal right ventricular systolic function. Atria The left atrium is moderately dilated. The right atrium is mildly dilated. Aortic Valve There is a normal trileaflet aortic valve. There is no aortic valve stenosis. There is no aortic valve regurgitation. Mitral Valve The mitral valve appears normal. There is no mitral valve regurgitation. There is no mitral valve stenosis. Pulmonic Valve The pulmonic valve is likely normal. Tricuspid Valve Normal tricuspid valve structure. There is mild tricuspid valve regurgitation. Mild pulmonary hypertension is present. Great Vessels The sinuses of valsalva and asc aorta are normal in size. Venous The inferior vena cava is mildly dilated and collapses greater than 50% with inspiration. Pericardium/Pleural There is no evidence of pericardial effusion. Prior Study Comparison No prior study available for comparison. Recommendations, Care & Conclusions No obvious valvular pathology seen on this study. Measurements 2D Linear Measurements IVSd: 1.17 0.6-0.9/0.6-1.0 cm LVIDd: 4.05 3.9-5.3/4.2-5.9 cm LVIDd Index: 2.40 2.4-3.2/2.2-3.1 cm/m2 LVIDs: 1.88 2.0-3.6 cm LVPWd: 0.94 0.7-1.1 cm Ao Root: 3.30 2.1-3.5 cm LA Diam: 3.20 2.7-3.8/3.0-4.0 cm LAIDs Index: 1.89 1.5-2.3 cm/m2 LV Mass: 174.13 67-162/88-224 g LV Mass Index: 103.03 43-95/49-115 g/m2 LVOT Diam: 2.10 3.0+(-)1.3 cm 2D Systolic Function EF 4C: 51.80 >55% EF 2C: 56.50 >55% EF BiP: 51.30 >55% Mitral Valve MV Pk E: 1.08 MV PK A: 0.71 MV Decel Time: 142.00 E/A: 1.50 E'Lateral: 8.81 E'Medial: 7.83 E/E' Med: 13.80 E/E' Lat: 12.30 PHT: 42.00 MVA PHT: 5.24 Decel [place]: 7.58 Aortic Valve AoV Pk Ander: 1.36 AoV Mn Nader: 0.80 AoV VTI: 0.29 AoV Pk Grad: 7.00 Aov Mn Grad: 3.00 LEROY Cont.VTI: 2.55 LEROY: 2.55 LVOT LVOT Pk Nader: 1.02 LVOT Mn Nader: 0.68 LVOT VTI: 0.21 LVOT Pk Grad: 4.00 LVOT Mn Grad: 2.00 LVOT Diam: 2.10 LVOT Area: 3.46 Diastolic Function MV Pk E: 1.08 MV Pk A: 0.71 E/A: 1.50 E'Medial: 7.83 E/E' Med: 13.80 E' Laterial: 8.81 E/E' Lat: 12.30 Right Ventricle TAPSE (mm): 30.90 TVS' Nader: 9.79 Tricuspid Valve TR Pk Nader: 2.98 TR Pk Grad: 36.00 RA Press: 3.00 RVSP: 39.00 Great Vessels Aorta Ao Root-2D: 3.30 2.0-3.7 cm Ao Asc: 3.00 2.1-3.4 cm Pulmonary Valve PV Pk Nader: 0.87 Peak PV Grad: 3.00 Updated in Other Vendor System with Status of Final Severino Nuñez MD electronically signed on 01/01/2025 12:39:46 PM with status of Final
[2025-01-01 07:31] LABS: Glucose, Whole Blood 68 mg/dL (60-115)
[2025-01-01 07:50] LABS: Hematocrit 23.2 % (37.0-47.0); Hemoglobin 8.1 g/dl (12.0-16.0); Mean Corpuscular HGB Conc 34.9 g/dl (31.0-35.0); Mean Corpuscular Hemoglobin 28.5 pg (27.0-33.0); Mean Corpuscular Volume 81.7 fL (80.0-98.0); Mean Platelet Volume 10.5 fL (9.4-12.3); Platelet Count 346 X10*3/uL (160-400); Red Blood Count 2.84 X10*6/uL (4.20-5.50)
[2025-01-01 07:52] LABS: WBC ABN SCTR FOR CBC 1
[2025-01-01 08:07] LABS: Anion Gap 12 (12-20); Blood Urea Nitrogen 38 mg/dL (9-16); Calcium 7.6 mg/dL (8.4-10.2); Carbon Dioxide 24 mmol/L (22-29); Chloride 102 mmol/L (96-108); Creatinine Clr Calc Pharmacy 48.7; Estimated Glomerular Filt Rate 51; Glucose Random 71 mg/dL (60-115); Potassium 3.2 mmol/L (3.3-5.1); Sodium 135 mmol/L (135-145)
[2025-01-01] MEDS: 0.9 % Sodium Chloride Flush 3 ML SYRINGE IVFLUSH ×2 (08:15→21:57)
[2025-01-01] MEDS: Sodium Bicarbonate 650 MG TABLET 1300 MG PO ×2 (08:15→21:56)
[2025-01-01] MEDS: HaloperidoL 5 MG TABLET PO ×2 (08:16→21:57)
[2025-01-01] MEDS: cefTRIAXone sodium 1 GM VIAL IVPUSH (08:16)
[2025-01-01] MEDS: FLUoxetine HCl 10 MG CAPSULE PO (08:16)
[2025-01-01] MEDS: Metoprolol Succinate ER 25 MG TAB.ER.24H PO (08:16)
[2025-01-01] MEDS: Aspirin Enteric Coated 81 MG TABLET.DR PO (08:16)
[2025-01-01 10:07] LABS: CDiff Gene PCR NEGATIVE (Negative)
[2025-01-01 11:26] LABS: Band Neutrophils Percent 0 % (3-5); Eosinophils Percent Manual 1 % (0-4); Lymphocytes Percent Manual 17 % (20-40); Monocytes Percent Manual 2 % (2-11); Neutrophils Percent Manual 80 % (45-73)
[2025-01-01 11:28] LABS: Acanthocytes 3+ (>5) /OIF; RBC Morphology NOTED
[2025-01-01 11:29] LABS: Burr Cells 3+ (>5) /OIF; Platelet Estimate NORMAL (NORMAL); Platelet Morphology Comment NORMAL
[2025-01-01 12:13] LABS: Glucose, Whole Blood 132 mg/dL (60-115)
[2025-01-01 12:41] LABS: Eosinophils Absolute Manual 0.1 X10*3/uL (0.0-0.4); Lymphocytes Absolute Manual 1.5 X10*3/uL (1.2-4.9); Monocytes Absolute Manual 0.2 X10*3/uL (0.1-1.2); White Blood Count 8.8 X10*3/uL (4.8-10.8)
--- NOTE | 2025-01-01 13:29 | MHC.CM.PN ---
Per rounds, pt. needed supplemental O2, not ready to DC, CM to follow for DC needs.
--- NOTE | 2025-01-01 13:38 | HO.PM.IMPN ---
Subjective Subjective Date of Service: 01/01/25 Interval History: confused, hpyoxic overnight Physical Exam Vital Signs: Vital Signs: Last Vital Signs Temp 98.2 F 01/01/25 11:54 Pulse 88 01/01/25 11:54 Resp 18 01/01/25 11:54 BP 113/63 01/01/25 11:54 Pulse Ox 92 01/01/25 11:54 O2 Del Method Room Air 01/01/25 11:54 O2 Flow Rate 1 01/01/25 10:26 BMI result Body Mass Index 23.2 Alert, confused, ill-appearing, bilateral rhonchi Objective Data Active Medications Acetaminophen (Acetaminophen 325 Mg Tablet) 650 mg PO Q6H PRN PRN Reason: Pain, Mild 1-3,fever,headache Last Admin: 12/30/24 15:23 Dose: 650 mg Documented By: MELVINA Aspirin (Aspirin Enteric Coated 81 Mg Tablet.) 81 mg PO DAILY [facility] Last Admin: 01/01/25 08:16 Dose: 81 mg Documented By: MICKEY Calcium Carbonate (Calcium Carbonate 750 Mg Tab.Chew) 750 mg PO Q4H PRN PRN Reason: Heartburn Ceftriaxone Sodium (Ceftriaxone Sodium 1 Gm Vial) 1 gm IVPUSH Q24H [facility] Last Admin: 01/01/25 08:16 Dose: 1 gm Documented By: MICKEY Dextrose (Dextrose 50 % 25 Gm/50 Ml Syringe) 25 gm IVPUSH Q15M PRN; Protocol PRN Reason: per Hypoglycemia Standing Ord. Famotidine (Famotidine 20 Mg Tablet) 20 mg PO BEDTIME [facility] Last Admin: 12/31/24 21:17 Dose: 20 mg Documented By: FAN Fluoxetine HCl (Fluoxetine Hcl 10 Mg Capsule) 10 mg PO DAILY [facility] Last Admin: 01/01/25 08:16 Dose: 10 mg Documented By: MICKEY Gabapentin (Gabapentin 100 Mg Capsule) 100 mg PO BEDTIME [facility] Last Admin: 12/31/24 21:17 Dose: 100 mg Documented By: FAN Glucose (Glucose Gel 15 Gm Gel..Gram.) 15 gm PO Q15M PRN; Protocol PRN Reason: per Hypoglycemia Standing Ord. Haloperidol (Haloperidol 5 Mg Tablet) 5 mg PO BID [facility] Last Admin: 01/01/25 08:16 Dose: 5 mg Documented By: MICKEY Haloperidol Lactate (Haloperidol Lactate 5 Mg/Ml Vial) 2.5 mg IM ONCE PRN PRN Reason: anxiety/restlessness Heparin Sodium (Porcine) (Heparin Sodium,Porcine 5,000 Unit/Ml Vial) 5,000 unit SUBCUT Q8H [facility] Last Admin: 01/01/25 06:48 Dose: 5,000 unit Documented By: RUMA Doxycycline Hyclate 100 mg/ (Sodium Chloride) 250 mls @ 166.67 mls/hr IV Q12H [facility] Last Infusion: 01/01/25 00:49 Dose: Infused Documented By: FAN Insulin Glargine (Insulin Glargine,Hum.Rec.Anlog 100 Unit/Ml 10 Ml Vial) 10 unit SUBCUT DAILY [facility] Last Admin: 01/01/25 07:40 Dose: Not Given Documented By: MICKEY Non-Admin Reason: POC 68, holding insulin Insulin Human Lispro (Insulin Lispro 100 Unit/Ml 3 Ml Vial) 0 unit SUBCUT QIDACHS [facility]; Protocol Last Admin: 01/01/25 13:19 Dose: Not Given Documented By: MICKEY Non-Admin Reason: No Insulin Coverage Loperamide HCl (Loperamide Hcl 2 Mg Capsule) 2 mg PO Q4H PRN PRN Reason: Diarrhea Last Admin: 12/31/24 11:59 Dose: 2 mg Documented By: CARMEN Magnesium Hydroxide (Milk Of Magnesia 30 Ml Oral.Susp) 30 ml PO DAILY PRN PRN Reason: Constipation Melatonin (Melatonin 3 Mg Tablet) 6 mg PO BEDTIME PRN PRN Reason: Insomnia Metoprolol Succinate (Metoprolol Succinate Er 25 Mg Tab.Er.24h) 25 mg PO DAILY [facility]; Protocol Last Admin: 01/01/25 08:16 Dose: 25 mg Documented By: MICKEY Mirtazapine (Mirtazapine 7.5 Mg Tablet) 7.5 mg PO BEDTIME [facility] Last Admin: 12/31/24 21:17 Dose: 7.5 mg Documented By: FAN Omeprazole (Omeprazole 20 Mg Capsule.) 20 mg PO DAILY@0630 [facility] Last Admin: 01/01/25 06:48 Dose: 20 mg Documented By: RUMA Senna (Sennosides 8.6 Mg Tablet) 17.2 mg PO BEDTIME PRN PRN Reason: constipation Sodium Bicarbonate (Sodium Bicarbonate 650 Mg Tablet) 1,300 mg PO BID [facility] Last Admin: 01/01/25 08:15 Dose: 1,300 mg Documented By: MICKEY Sodium Chloride (0.9 % Sodium Chloride Flush 3 Ml Syringe) 3 ml IVFLUSH QSHIFT [facility] Last Admin: 01/01/25 08:15 Dose: 3 ml Documented By: MICKEY Labs 01/01/25 07:20 01/01/25 07:20 Labs: Laboratory Results - last 24 hr 12/31/24 12/31/24 12/31/24 13:06 15:46 16:26 MCV MCH MCHC RDW Plt Count MPV Immature Gran % (Auto) Neut % (Auto) Lymph % (Auto) [place] % (Auto) Eos % (Auto) Baso % (Auto) Lymph # (Auto) [place] # (Auto) Eos # (Auto) Baso # (Auto) Abs Immat Gran (auto) Absolute Neuts (auto) Absolute Nucleated RBC Nucleated RBC % (auto) Neutrophils % (Manual) Band Neutrophils % Lymphocytes % (Manual) Monocytes % (Manual) Eosinophils % (Manual) Abs Neuts (Manual) Lymphocytes # (Manual) Monocytes # (Manual) Eosinophils # (Manual) Platelet Estimate Plt Morphology Comment RBC Morphology [place] Cells Acanthocytes (Spur) Anion Gap Estim Creat Clear Calc Estimated GFR POC Glucose 95 Random Glucose Lactic Acid 3.0 H* Lactic Acid F/U @ 2Hr 2.3 H* Lactic Acid F/U @ 4Hr Calcium B-Natriuretic Peptide C. difficile Tox B Gene 12/31/24 12/31/24 01/01/25 18:07 20:27 00:55 MCV MCH MCHC RDW Plt Count MPV Immature Gran % (Auto) Neut % (Auto) Lymph % (Auto) [place] % (Auto) Eos % (Auto) Baso % (Auto) Lymph # (Auto) [place] # (Auto) Eos # (Auto) Baso # (Auto) Abs Immat Gran (auto) Absolute Neuts (auto) Absolute Nucleated RBC Nucleated RBC % (auto) Neutrophils % (Manual) Band Neutrophils % Lymphocytes % (Manual) Monocytes % (Manual) Eosinophils % (Manual) Abs Neuts (Manual) Lymphocytes # (Manual) Monocytes # (Manual) Eosinophils # (Manual) Platelet Estimate Plt Morphology Comment RBC Morphology [place] Cells Acanthocytes (Spur) Anion Gap Estim Creat Clear Calc Estimated GFR POC Glucose 126 H Random Glucose Lactic Acid Lactic Acid F/U @ 2Hr Lactic Acid F/U @ 4Hr 2.3 H* Calcium B-Natriuretic Peptide 1576 H C. difficile Tox B Gene 01/01/25 01/01/25 01/01/25 07:20 07:27 08:56 MCV 81.7 MCH 28.5 MCHC 34.9 RDW 15.0 Plt Count 346 MPV 10.5 Immature Gran % (Auto) Cancelled Neut % (Auto) Cancelled Lymph % (Auto) Cancelled [place] % (Auto) Cancelled Eos % (Auto) Cancelled Baso % (Auto) Cancelled Lymph # (Auto) Cancelled [place] # (Auto) Cancelled Eos # (Auto) Cancelled Baso # (Auto) Cancelled Abs Immat Gran (auto) Cancelled Absolute Neuts (auto) Cancelled Absolute Nucleated RBC 0.000 Nucleated RBC % (auto) 0.0 Neutrophils % (Manual) 80 H Band Neutrophils % 0 L Lymphocytes % (Manual) 17 L Monocytes % (Manual) 2 Eosinophils % (Manual) 1 Abs Neuts (Manual) 7.0 Lymphocytes # (Manual) 1.5 Monocytes # (Manual) 0.2 Eosinophils # (Manual) 0.1 Platelet Estimate NORMAL Plt Morphology Comment NORMAL RBC Morphology NOTED [place] Cells 3+ (>5) Acanthocytes (Spur) 3+ (>5) Anion Gap 12 Estim Creat Clear Calc 48.7 Estimated GFR 51 POC Glucose 68 Random Glucose 71 Lactic Acid Lactic Acid F/U @ 2Hr Lactic Acid F/U @ 4Hr Calcium 7.6 L D B-Natriuretic Peptide C. difficile Tox B Gene NEGATIVE 01/01/25 12:03 MCV MCH MCHC RDW Plt Count MPV Immature Gran % (Auto) Neut % (Auto) Lymph % (Auto) [place] % (Auto) Eos % (Auto) Baso % (Auto) Lymph # (Auto) [place] # (Auto) Eos # (Auto) Baso # (Auto) Abs Immat Gran (auto) Absolute Neuts (auto) Absolute Nucleated RBC Nucleated RBC % (auto) Neutrophils % (Manual) Band Neutrophils % Lymphocytes % (Manual) Monocytes % (Manual) Eosinophils % (Manual) Abs Neuts (Manual) Lymphocytes # (Manual) Monocytes # (Manual) Eosinophils # (Manual) Platelet Estimate Plt Morphology Comment RBC Morphology [place] Cells Acanthocytes (Spur) Anion Gap Estim Creat Clear Calc Estimated GFR POC Glucose 132 H Random Glucose Lactic Acid Lactic Acid F/U @ 2Hr Lactic Acid F/U @ 4Hr Calcium B-Natriuretic Peptide C. difficile Tox B Gene Microbiology Microbiology Results: Microbiology 12/29/24 08:46 Blood Culture - Preliminary Blood - Venous No growth after 48 hours. 12/29/24 08:46 Blood Culture - Preliminary Blood - Venous No growth after 48 hours. Assessment and Plan (1) Diabetes: Status: Acute Plan 59F PMH diabetes, hypertension, hyperlipidemia, peripheral neuropathy, CKD 3, chronic constipation, GERD presented with weakness and fall found to have severe acute metabolic acidosis Severe sepsis due to UTI and pneumonia Continue ceftriaxone doxycycline Urine culture with Serratia Hypotension Due to medications Not sepsis Improved Acute hypoxic respiratory failure due to acute on chronic diastolic CHF Improved with IV Lasix Echo not grossly abnormal severe metabolic acidosis on po bicarb, improving, multifactorial, nephro following Acute kidney injury on CKD ipmroved diarrhea improved Acute on chronic hyponatremia resolved acute hpyokalemia replaced dm insulin dvt prophylaxis - hep sq full code reason for continued hospitalization:hypoxia Quality Stroke Does the patient have a stroke diagnosis?: No VTE Prior VTE?: No VTE Risk Level:: Medical - moderate - high VTE Device Contraindication: Treatment Not Indicated VTE Drug Contraindication: N/A - Med Ordered
[2025-01-01] MEDS: Doxycycline Hyclate 100 MG in 0.9 % Sodium Chloride 250 ML 166.67 MG IV (14:08)
[2025-01-01 16:16] LABS: Glucose, Whole Blood 131 mg/dL (60-115)
[2025-01-01 20:06] LABS: Glucose, Whole Blood 149 mg/dL (60-115)
[2025-01-01] MEDS: Mirtazapine 7.5 MG TABLET PO (21:57)
[2025-01-01] MEDS: Gabapentin 100 MG CAPSULE PO (21:57)
[2025-01-01] MEDS: Famotidine 20 MG TABLET PO (22:20)
[2025-01-02] VITALS: BP 143/65; PULSE 93; RESP 16; TEMP 36.7; O2SAT 93
[2025-01-02 04:00] VITALS: BP 119/64; PULSE 95; RESP 16; TEMP 37.1; O2SAT 99
[2025-01-02] MEDS: Omeprazole 20 MG CAPSULE.DR PO (05:54)
[2025-01-02] MEDS: Doxycycline Hyclate 100 MG in 0.9 % Sodium Chloride 250 ML 166.67 MG IV (05:54)
[2025-01-02 06:23] LABS: Venous Blood Gas Refer to POC result
[2025-01-02 06:26] LABS: VBG Base Excess 5.1 mmol/L; VBG HCO3 29 mmol/L (22-26); VBG pCO2 40 mmHg; VBG pH 7.46 (7.32-7.43); VBG pO2 53 mmHg
[2025-01-02 06:33] LABS: Hematocrit 22.9 % (37.0-47.0); Hemoglobin 8.1 g/dl (12.0-16.0); Mean Corpuscular HGB Conc 35.4 g/dl (31.0-35.0); Mean Corpuscular Hemoglobin 28.7 pg (27.0-33.0); Mean Corpuscular Volume 81.2 fL (80.0-98.0); Mean Platelet Volume 10.3 fL (9.4-12.3); Platelet Count 358 X10*3/uL (160-400); Red Blood Count 2.82 X10*6/uL (4.20-5.50); Red Cell Distribution Width 14.7 % (11.0-16.0); White Blood Count 5.4 X10*3/uL (4.8-10.8)
[2025-01-02 06:40] LABS: Alanine Aminotransferase < 6 U/L (0-31); Albumin Level 2.5 g/dL (3.5-5.0); Alkaline Phosphatase 105 U/L (39-117); Anion Gap 12 (12-20); Aspartate Amino Transferase 25 U/L (5-31); Bilirubin Direct 0.2 mg/dL (0.0-0.5); Bilirubin Total 0.4 mg/dL (0.0-1.0); Blood Urea Nitrogen 33 mg/dL (9-16); Calcium 7.8 mg/dL (8.4-10.2); Carbon Dioxide 24 mmol/L (22-29); Chloride 104 mmol/L (96-108); Creatinine Clr Calc Pharmacy 60.4; Estimated Glomerular Filt Rate > 60; Glucose Random 120 mg/dL (60-115); Lactate Dehydrogenase 161 U/L (122-220); Magnesium 2.5 mg/dL (1.6-2.6); Potassium 3.1 mmol/L (3.3-5.1); Sodium 137 mmol/L (135-145); Total Protein 5.1 g/dL (6.5-8.0)
[2025-01-02 07:24] LABS: Glucose, Whole Blood 118 mg/dL (60-115)
[2025-01-02 07:39] VITALS: BP 163/63; PULSE 88; RESP 17; TEMP 37; O2SAT 93
[2025-01-02] MEDS: HaloperidoL 5 MG TABLET PO (07:58)
[2025-01-02] MEDS: Metoprolol Succinate ER 25 MG TAB.ER.24H PO (07:58)
[2025-01-02] MEDS: predniSONE 20 MG TABLET 40 MG PO (07:58)
[2025-01-02] MEDS: Aspirin Enteric Coated 81 MG TABLET.DR PO (07:58)
[2025-01-02] MEDS: FLUoxetine HCl 10 MG CAPSULE PO (07:59)
[2025-01-02] MEDS: cefTRIAXone sodium 1 GM VIAL IVPUSH (07:59)
[2025-01-02] MEDS: Sodium Bicarbonate 650 MG TABLET PO (07:59)
[2025-01-02] MEDS: Heparin Sodium,Porcine 5,000 UNIT/ML VIAL 5000 UNIT SUBCUT (07:59)
[2025-01-02] MEDS: Insulin Glargine,Hum.rec.anlog 100 UNIT/ML 10 ML VIAL 10 UNIT SUBCUT (08:15)
[2025-01-02] MEDS: 0.9 % Sodium Chloride Flush 3 ML SYRINGE IVFLUSH (08:15)
--- NOTE | 2025-01-02 10:41 | P.PNNP_ITS ---
Subjective Subjective Date of Service: 01/02/25 Interval history: Events noted. Somewhat confused. Physical Exam 2 Vital Signs: Vital Signs: Last Vital Signs Temp 98.6 F 01/02/25 07:39 Pulse 88 01/02/25 07:39 Resp 17 01/02/25 07:39 BP 163/63 H 01/02/25 07:39 Pulse Ox 93 01/02/25 07:39 O2 Del Method Nasal Cannula 01/02/25 07:39 O2 Flow Rate 2 01/02/25 07:39 BMI result Body Mass Index 23.2 Const: Other: Constitutional : interactive, not in distress Cardiovascular : no JVP, no lower extremity edema Respiratory : bilateral chest movement, not in resp distress , on O2 supplement, minimal basal crackles Gastrointestinal: soft, lax, mild left abd pain sided tenderness, no surgical signs Skin : Warm, Dry Neurological : Alert & oriented to self and place but otherwise confused and mildly delerious , No focal deficit General: ill appearing Neck: Neck: Yes supple Resp: Auscultation: clear to auscultation bilaterally Cardio: Palpation: no palpable S3 Heart sounds: no rubs GI: Palpation (GI): Soft to palpation Auscultation: normal bowel sounds Neuro: Motor exam (neuro): no asterixis Objective Data Labs 01/02/25 06:06 01/02/25 06:06 Labs: Laboratory Results - last 24 hr 01/01/25 01/01/25 01/01/25 07:20 12:03 16:12 WBC 8.8 RBC Hgb Hct MCV MCH MCHC RDW Plt Count MPV Absolute Nucleated RBC Nucleated RBC % (auto) Neutrophils % (Manual) 80 H Band Neutrophils % 0 L Lymphocytes % (Manual) 17 L Monocytes % (Manual) 2 Eosinophils % (Manual) 1 Abs Neuts (Manual) 7.0 Lymphocytes # (Manual) 1.5 Monocytes # (Manual) 0.2 Eosinophils # (Manual) 0.1 Platelet Estimate NORMAL Plt Morphology Comment NORMAL RBC Morphology NOTED [place] Cells 3+ (>5) Acanthocytes (Spur) 3+ (>5) VBG pH VBG pCO2 VBG pO2 VBG HCO3 VBG O2 Saturation VBG Base Excess Sodium Potassium Chloride Carbon Dioxide Anion Gap BUN Creatinine Estim Creat Clear Calc Estimated GFR POC Glucose 132 H 131 H Random Glucose Calcium Magnesium Total Bilirubin Direct Bilirubin AST ALT Alkaline Phosphatase Lactate Dehydrogenase C-Reactive Protein Total Protein Albumin 01/01/25 01/02/25 01/02/25 20:03 06:06 06:22 WBC 5.4 RBC 2.82 L Hgb 8.1 L Hct 22.9 L MCV 81.2 MCH 28.7 MCHC 35.4 H RDW 14.7 Plt Count 358 MPV 10.3 Absolute Nucleated RBC 0.000 Nucleated RBC % (auto) 0.0 Neutrophils % (Manual) Band Neutrophils % Lymphocytes % (Manual) Monocytes % (Manual) Eosinophils % (Manual) Abs Neuts (Manual) Lymphocytes # (Manual) Monocytes # (Manual) Eosinophils # (Manual) Platelet Estimate Plt Morphology Comment RBC Morphology [place] Cells Acanthocytes (Spur) VBG pH 7.46 H VBG pCO2 40 VBG pO2 53 VBG HCO3 29 H VBG O2 Saturation 84.0 VBG Base Excess 5.1 Sodium 137 Potassium 3.1 L Chloride 104 Carbon Dioxide 24 Anion Gap 12 BUN 33 H Creatinine 0.88 Estim Creat Clear Calc 60.4 Estimated GFR > 60 POC Glucose 149 H Random Glucose 120 H Calcium 7.8 L Magnesium 2.5 Total Bilirubin 0.4 Direct Bilirubin 0.2 AST 25 ALT < 6 Alkaline Phosphatase 105 Lactate Dehydrogenase 161 C-Reactive Protein 15.50 H Total Protein 5.1 L Albumin 2.5 L 01/02/25 07:07 WBC RBC Hgb Hct MCV MCH MCHC RDW Plt Count MPV Absolute Nucleated RBC Nucleated RBC % (auto) Neutrophils % (Manual) Band Neutrophils % Lymphocytes % (Manual) Monocytes % (Manual) Eosinophils % (Manual) Abs Neuts (Manual) Lymphocytes # (Manual) Monocytes # (Manual) Eosinophils # (Manual) Platelet Estimate Plt Morphology Comment RBC Morphology [place] Cells Acanthocytes (Spur) VBG pH VBG pCO2 VBG pO2 VBG HCO3 VBG O2 Saturation VBG Base Excess Sodium Potassium Chloride Carbon Dioxide Anion Gap BUN Creatinine Estim Creat Clear Calc Estimated GFR POC Glucose 118 H Random Glucose Calcium Magnesium Total Bilirubin Direct Bilirubin AST ALT Alkaline Phosphatase Lactate Dehydrogenase C-Reactive Protein Total Protein Albumin Microbiology Microbiology Results: Microbiology 12/29/24 08:46 Blood - Venous Blood Culture - Preliminary No growth after 48 hours. 12/29/24 08:46 Blood - Venous Blood Culture - Preliminary No growth after 48 hours. 12/29/24 09:21 Urine Catheterized - Straight Catheter Urine Culture - Final Serratia marcescens Procedures Date of Service Date of Service: 01/02/25 Assessment & Plan Assessment and plan (1) Hyponatremia: Status: Acute (2) CKD (chronic kidney disease): Status: Acute (3) Hypotension: Status: Acute (4) Metabolic acidosis: Status: Acute Plan 59 yr old woman with CKD with severe acidosis an dhypotension CAMPOS resolved. Hyponatremia stance corrected. Severe acidosis in a setting of shock Elevated Lactic acid Resolved. Currently alkalotic. Discontinue sodium bicarbonate tablets. UTI with serracia Agree with antibiotics Time Spent With Patient Time: Total time managing care of this patient today ____ minutes. Progress Note: Quality Stroke Does the patient have a stroke diagnosis?: No
[2025-01-02 11:54] LABS: Glucose, Whole Blood 137 mg/dL (60-115)
[2025-01-02 12:00] VITALS: BP 162/84; PULSE 94; RESP 18; TEMP 36.8; O2SAT 95
--- NOTE | 2025-01-02 12:04 | P.PNIM_ITS ---
Subjective Subjective Date of Service: 01/02/25 Interval History: much improved, wants to go home Physical Exam 2 Vital Signs: Vital Signs: Last Vital Signs Temp 98.3 F 01/02/25 12:00 Pulse 94 01/02/25 12:00 Resp 18 01/02/25 12:00 BP 162/84 H 01/02/25 12:00 Pulse Ox 95 01/02/25 12:00 O2 Del Method Nasal Cannula 01/02/25 12:00 O2 Flow Rate 2 01/02/25 12:00 BMI result Body Mass Index 23.2 Const: Other: Constitutional : interactive, not in distress Cardiovascular : no JVP, no lower extremity edema Respiratory : bilateral chest movement, not in resp distress , on O2 supplement, minimal basal crackles Gastrointestinal: soft, lax, mild left abd pain sided tenderness, no surgical signs Skin : Warm, Dry Neurological : Alert & oriented to self and place but otherwise confused and mildly delerious , No focal deficit General: ill appearing Neck: Neck: Yes supple Resp: Auscultation: clear to auscultation bilaterally Cardio: Palpation: no palpable S3 Heart sounds: no rubs GI: Palpation (GI): Soft to palpation Auscultation: normal bowel sounds Neuro: Motor exam (neuro): no asterixis Objective Data Active Medications Acetaminophen (Acetaminophen 325 Mg Tablet) 650 mg PO Q6H PRN PRN Reason: Pain, Mild 1-3,fever,headache Last Admin: 12/30/24 15:23 Dose: 650 mg Documented By: MELVINA Aspirin (Aspirin Enteric Coated 81 Mg Tablet.Dr) 81 mg PO DAILY [facility] Last Admin: 01/02/25 07:58 Dose: 81 mg Documented By: OLIVIA Calcium Carbonate (Calcium Carbonate 750 Mg Tab.Chew) 750 mg PO Q4H PRN PRN Reason: Heartburn Ceftriaxone Sodium (Ceftriaxone Sodium 1 Gm Vial) 1 gm IVPUSH Q24H [facility] Last Admin: 01/02/25 07:59 Dose: 1 gm Documented By: OLIVIA Dextrose (Dextrose 50 % 25 Gm/50 Ml Syringe) 25 gm IVPUSH Q15M PRN; Protocol PRN Reason: per Hypoglycemia Standing Ord. Famotidine (Famotidine 20 Mg Tablet) 20 mg PO BEDTIME [facility] Last Admin: 01/01/25 22:20 Dose: 20 mg Documented By: KASSANDRA Fluoxetine HCl (Fluoxetine Hcl 10 Mg Capsule) 10 mg PO DAILY [facility] Last Admin: 01/02/25 07:59 Dose: 10 mg Documented By: OLIVIA Gabapentin (Gabapentin 100 Mg Capsule) 100 mg PO BEDTIME [facility] Last Admin: 01/01/25 21:57 Dose: 100 mg Documented By: KASSANDRA Glucose (Glucose Gel 15 Gm Gel..Gram.) 15 gm PO Q15M PRN; Protocol PRN Reason: per Hypoglycemia Standing Ord. Haloperidol (Haloperidol 5 Mg Tablet) 5 mg PO BID [facility] Last Admin: 01/02/25 07:58 Dose: 5 mg Documented By: OLIVIA Haloperidol Lactate (Haloperidol Lactate 5 Mg/Ml Vial) 2.5 mg IM ONCE PRN PRN Reason: anxiety/restlessness Heparin Sodium (Porcine) (Heparin Sodium,Porcine 5,000 Unit/Ml Vial) 5,000 unit SUBCUT Q8H [facility] Last Admin: 01/02/25 07:59 Dose: 5,000 unit Documented By: OLIVIA Doxycycline Hyclate 100 mg/ (Sodium Chloride) 250 mls @ 166.67 mls/hr IV Q12H [facility] Last Infusion: 01/02/25 07:59 Dose: Infused Documented By: OLIVIA Insulin Glargine (Insulin Glargine,Hum.Rec.Anlog 100 Unit/Ml 10 Ml Vial) 10 unit SUBCUT DAILY [facility] Last Admin: 01/02/25 08:15 Dose: 10 unit Documented By: OLIVIA Insulin Human Lispro (Insulin Lispro 100 Unit/Ml 3 Ml Vial) 0 unit SUBCUT QIDACHS [facility]; Protocol Last Admin: 01/02/25 08:16 Dose: Not Given Documented By: OLIVIA Non-Admin Reason: No Insulin Coverage Loperamide HCl (Loperamide Hcl 2 Mg Capsule) 2 mg PO Q4H PRN PRN Reason: Diarrhea Last Admin: 12/31/24 11:59 Dose: 2 mg Documented By: CARMEN Magnesium Hydroxide (Milk Of Magnesia 30 Ml Oral.Susp) 30 ml PO DAILY PRN PRN Reason: Constipation Melatonin (Melatonin 3 Mg Tablet) 6 mg PO BEDTIME PRN PRN Reason: Insomnia Metoprolol Succinate (Metoprolol Succinate Er 25 Mg Tab.Er.24h) 25 mg PO DAILY [facility]; Protocol Last Admin: 01/02/25 07:58 Dose: 25 mg Documented By: OLIVIA Mirtazapine (Mirtazapine 7.5 Mg Tablet) 7.5 mg PO BEDTIME [facility] Last Admin: 01/01/25 21:57 Dose: 7.5 mg Documented By: KASSANDRA Omeprazole (Omeprazole 20 Mg Capsule.Dr) 20 mg PO DAILY@0630 [facility] Last Admin: 01/02/25 05:54 Dose: 20 mg Documented By: KASSANDRA Prednisone (Prednisone 20 Mg Tablet) 40 mg PO DAILY [facility] Last Admin: 01/02/25 07:58 Dose: 40 mg Documented By: OLIVIA Senna (Sennosides 8.6 Mg Tablet) 17.2 mg PO BEDTIME PRN PRN Reason: constipation Sodium Chloride (0.9 % Sodium Chloride Flush 3 Ml Syringe) 3 ml IVFLUSH QSHIFT [facility] Last Admin: 01/02/25 08:15 Dose: 3 ml Documented By: OLIVIA Labs 01/02/25 06:06 01/02/25 06:06 Labs: Laboratory Results - last 24 hr 01/01/25 01/01/25 01/01/25 07:20 12:03 16:12 MCV MCH MCHC RDW Plt Count MPV Absolute Nucleated RBC Nucleated RBC % (auto) Abs Neuts (Manual) 7.0 Lymphocytes # (Manual) 1.5 Monocytes # (Manual) 0.2 Eosinophils # (Manual) 0.1 VBG pH VBG pCO2 VBG pO2 VBG HCO3 VBG O2 Saturation VBG Base Excess Anion Gap Estim Creat Clear Calc Estimated GFR POC Glucose 132 H 131 H Random Glucose Calcium Magnesium Total Bilirubin Direct Bilirubin AST ALT Alkaline Phosphatase Lactate Dehydrogenase C-Reactive Protein Total Protein Albumin 01/01/25 01/02/25 01/02/25 20:03 06:06 06:22 MCV 81.2 MCH 28.7 MCHC 35.4 H RDW 14.7 Plt Count 358 MPV 10.3 Absolute Nucleated RBC 0.000 Nucleated RBC % (auto) 0.0 Abs Neuts (Manual) Lymphocytes # (Manual) Monocytes # (Manual) Eosinophils # (Manual) VBG pH 7.46 H VBG pCO2 40 VBG pO2 53 VBG HCO3 29 H VBG O2 Saturation 84.0 VBG Base Excess 5.1 Anion Gap 12 Estim Creat Clear Calc 60.4 Estimated GFR > 60 POC Glucose 149 H Random Glucose 120 H Calcium 7.8 L Magnesium 2.5 Total Bilirubin 0.4 Direct Bilirubin 0.2 AST 25 ALT < 6 Alkaline Phosphatase 105 Lactate Dehydrogenase 161 C-Reactive Protein 15.50 H Total Protein 5.1 L Albumin 2.5 L 01/02/25 01/02/25 07:07 11:43 MCV MCH MCHC RDW Plt Count MPV Absolute Nucleated RBC Nucleated RBC % (auto) Abs Neuts (Manual) Lymphocytes # (Manual) Monocytes # (Manual) Eosinophils # (Manual) VBG pH VBG pCO2 VBG pO2 VBG HCO3 VBG O2 Saturation VBG Base Excess Anion Gap Estim Creat Clear Calc Estimated GFR POC Glucose 118 H 137 H Random Glucose Calcium Magnesium Total Bilirubin Direct Bilirubin AST ALT Alkaline Phosphatase Lactate Dehydrogenase C-Reactive Protein Total Protein Albumin Assessment and Plan (1) Diabetes: Status: Acute Plan 59F PMH diabetes, hypertension, hyperlipidemia, peripheral neuropathy, CKD 3, chronic constipation, GERD presented with weakness and fall found to have severe acute metabolic acidosis Severe sepsis due to UTI and pneumonia Continue ceftriaxone doxycycline Urine culture with Serratia much improved Hypotension Due to medications, diarrhea Not sepsis Improved Acute hypoxic respiratory failure due to acute on chronic diastolic CHF Improved with IV Lasix Echo not grossly abnormal severe non anion gap metabolic acidosis suspect mostly due to diarrhea resolved, dc bicarb Acute kidney injury resolved diarrhea improved Acute on chronic hyponatremia resolved acute hpyokalemia replaced dm insulin dvt prophylaxis - hep sq full code reason for continued hospitalization:hypoxia Quality Stroke Does the patient have a stroke diagnosis?: No VTE Prior VTE?: No VTE Risk Level:: Medical - moderate - high VTE Device Contraindication: Treatment Not Indicated VTE Drug Contraindication: N/A - Med Ordered
--- NOTE | 2025-01-02 12:24 | PM.DS ---
DS: Providers Provider Date of Service: 01/02/25 Date of admission: 12/29/24 17:58 Date of discharge: 01/02/25 Primary care physician: Nolan Blevins MD Consults: 12/29/24 18:40 Consult to Critical Care Routine Consulting Provider: Ovidio Duggan Reason for consultation: Level of care eval Consult to Nephrology Routine Consulting Provider: [facility] Reason for consultation: Bicarb 9, VBG pH 7.15 DS: Diagnosis Discharge Diagnosis (1) Diabetes: Status: Acute DS: Summary Hospital Course Hospital Course: from initial hpi: 59-year-old Irish-speaking female with a PMH significant for insulin-dependent type 2 diabetes, HTN, HLD, peripheral neuropathy, CKD 3, chronic constipation, and GERD?who presents to the ED for evaluation of generalized weakness and falls at home. Pt is a vague and poor historian, reports that she is in the hospital because she felt ?ill? and weak, though is unable to further specify any acute complaints. Family at bedside note that pt has had abdominal discomfort and constipation for the past few days. Last night pt apparently felt weak and dizzy especially with exertion or position changes. This morning family reports pt was weak and continued to be lightheaded and dizzy, falling up to 3 times, twice in the home and once more while leaving the house to come to the hospital. Notes that pt has had episodes of low blood pressure for the past 3-4 months. Had significant episode around 1 month ago where she fell and could not stand up. Unclear if pt was evaluated at that time, but she apparently often refuses to come to the ED for evaluation. Family also note she has had foul-smelling urine for the past few days. Family state pt is sometimes slow to respond to queries and currently appears around baseline mentation. Family also notes that pt began coughing a few hours after presentation to the ED. Prior to this did not have any significant SOB or cough. In triage pt was noted to be hypotensive at 66/38 and apparently having difficulty following commands. Pt was given sepsis bolus fluids with temporary improvement to BP, though it?fell again as low as 88/63. Pt then was given albumin again with temporary improvement to BP. When pt became hypotensive again ICU was consulted who did bedside echo and then had pt receive additional IVF. Patient's BP dipped again while on maintenance fluids, and pt was noted to have a new wet sounding cough. IVF was stopped due to concerns for fluid overload and ICU was consulted again who suggested giving midodrine. Patient's BP then stabilized. Additional labs were obtained that indicated pt had VBG pH of 7.15 and continued bicarb of 9. ICU was again consulted who did not feel that pt was a candidate for critical care. Consulted nephrology and pt was started on a bicarb drip at 125 mls/h. In the ED pt was afebrile, but tachycardic up to 113, tachypneic up to 22, hypotensive as low as 66/38, and satting 98% on RA. Labs were significant for leukocytosis of 20.9, sodium 127, bicarb 9, random glucose 296, initial lactic acid 3.7 with repeat 3.8 and 3.7, and BNP 244. H&H stable at baseline. Creatinine 1.93 with repeat 1.62, at baseline. Hepatic function WNL. Beta hydroxybutyrate WNL. VBG pH 7.15 with pCO2 28 and bicarb 10. UA with question of contamination vs acute infection. CXR showed bilateral predominantly interstitial opacities either cardiogenic or pneumonic. Repeat CXR concerning for mild degree of interstitial edema vs interstitial infiltrates. CTA of head and cervical spine negative for acute abnormalities. CT of abdomen/pelvis negative for acute abdomen, though did show mild diffuse fecal impaction particularly in distal colon. EKG demonstrated normal sinus rhythm without evidence of significant ST elevations or depressions. Pt was treated in the ED with sepsis bolus fluids, albumin, midodrine, ceftriaxone, doxycycline, and started on bicarb drip. Pt is admitted to the hospital for treatment and further evaluation of hypotension and acute metabolic acidosis in the setting of severe sepsis secondary to UTI vs pneumonia. hospital course: Patient was admitted for severe sepsis due to urinary tract infection from [place] and pneumonia. Was treated with course of ceftriaxone doxycycline and sepsis resolved. Will be discharged on 3 more days of cefuroxime. Patient's initial presentation of hypotension was due to medications and diarrhea and has since resolved. Prazosin was held while inpatient but can be restarted on discharge. Course complicated by acute hypoxic respiratory failure due to acute on chronic diastolic CHF which improved with IV Lasix and patient is now on room air. For acute severe non-anion gap metabolic acidosis suspect mostly due to diarrhea was given bicarbonate and has resolved. Acute kidney injury has resolved with hydration. Diarrhea has resolved, infectious workup was negative. Acute on chronic hyponatremia was resolved. For acute hypokalemia received replacement. For diabetes was continued on insulin. Patient is feeling better and will be discharged home. Time Attestation Discharge Coordination Time (in mins): 37 Quality: Safe Use of Opioids Does Pt have an Active Cancer Diagnosis on the Problem List?: No Quality: Stroke Does the patient have a stroke diagnosis?: No Physical Exam Vital Signs: Vital Signs: Last Vital Signs Temp 98.3 F 01/02/25 12:00 Pulse 94 01/02/25 12:00 Resp 18 01/02/25 12:00 BP 162/84 H 01/02/25 12:00 Pulse Ox 95 01/02/25 12:00 O2 Del Method Nasal Cannula 01/02/25 12:00 O2 Flow Rate 2 01/02/25 12:00 BMI result Body Mass Index 23.2 General: AO X 1, no acute distress Resp: CTA bilateral, no accessory muscles used CVS: S1,S2,RRR GI: soft, non tender, non distended Neuro: motor grossly intact, alert DS: Data Data Completed and Pending Labs on day of discharge: Laboratory Results - last 24 hr 01/01/25 01/01/25 01/01/25 07:20 16:12 20:03 WBC 8.8 RBC Hgb Hct MCV MCH MCHC RDW Plt Count MPV Absolute Nucleated RBC Nucleated RBC % (auto) Abs Neuts (Manual) 7.0 Lymphocytes # (Manual) 1.5 Monocytes # (Manual) 0.2 Eosinophils # (Manual) 0.1 VBG pH VBG pCO2 VBG pO2 VBG HCO3 VBG O2 Saturation VBG Base Excess Sodium Potassium Chloride Carbon Dioxide Anion Gap BUN Creatinine Estim Creat Clear Calc Estimated GFR POC Glucose 131 H 149 H Random Glucose Calcium Magnesium Total Bilirubin Direct Bilirubin AST ALT Alkaline Phosphatase Lactate Dehydrogenase C-Reactive Protein Total Protein Albumin 01/02/25 01/02/25 01/02/25 06:06 06:22 07:07 WBC 5.4 RBC 2.82 L Hgb 8.1 L Hct 22.9 L MCV 81.2 MCH 28.7 MCHC 35.4 H RDW 14.7 Plt Count 358 MPV 10.3 Absolute Nucleated RBC 0.000 Nucleated RBC % (auto) 0.0 Abs Neuts (Manual) Lymphocytes # (Manual) Monocytes # (Manual) Eosinophils # (Manual) VBG pH 7.46 H VBG pCO2 40 VBG pO2 53 VBG HCO3 29 H VBG O2 Saturation 84.0 VBG Base Excess 5.1 Sodium 137 Potassium 3.1 L Chloride 104 Carbon Dioxide 24 Anion Gap 12 BUN 33 H Creatinine 0.88 Estim Creat Clear Calc 60.4 Estimated GFR > 60 POC Glucose 118 H Random Glucose 120 H Calcium 7.8 L Magnesium 2.5 Total Bilirubin 0.4 Direct Bilirubin 0.2 AST 25 ALT < 6 Alkaline Phosphatase 105 Lactate Dehydrogenase 161 C-Reactive Protein 15.50 H Total Protein 5.1 L Albumin 2.5 L 01/02/25 11:43 WBC RBC Hgb Hct MCV MCH MCHC RDW Plt Count MPV Absolute Nucleated RBC Nucleated RBC % (auto) Abs Neuts (Manual) Lymphocytes # (Manual) Monocytes # (Manual) Eosinophils # (Manual) VBG pH VBG pCO2 VBG pO2 VBG HCO3 VBG O2 Saturation VBG Base Excess Sodium Potassium Chloride Carbon Dioxide Anion Gap BUN Creatinine Estim Creat Clear Calc Estimated GFR POC Glucose 137 H Random Glucose Calcium Magnesium Total Bilirubin Direct Bilirubin AST ALT Alkaline Phosphatase Lactate Dehydrogenase C-Reactive Protein Total Protein Albumin Preliminary micro results at discharge 12/29/24 08:46 Blood Culture - Preliminary Blood - Venous No growth after 48 hours. 12/29/24 08:46 Blood Culture - Preliminary Blood - Venous No growth after 48 hours. Discharge Plan Discharge Anticipated Discharge Date/Time: 01/02/25 12:21 Patient Disposition: Home Health Service Discharge Diagnosis: hypotension, diarrhea, acidosis, pna, uti Referrals: Name,MD Nolan [Primary Care Provider] - 1 Week Discharge Medications: New cefuroxime axetil 500 mg tablet 500 mg PO BID Qty: 6 0RF Continued haloperidol 5 mg tablet 1 tab PO BID prazosin 2 mg capsule 2 mg PO DAILY sennosides [Natural Senna Laxative] 8.6 mg tablet 17.2 mg PO BEDTIME PRN (Reason: constipation) esomeprazole magnesium [Nexium] 40 mg capsule,delayed release(DR/EC) 40 mg PO DAILY@0630 prazosin 2 mg capsule 4 mg PO BEDTIME (DME) pen needle, diabetic 32 gauge x 3/16 needle See Rx Instructions .Route Qty: 100 0RF Rx Instructions: As directed mirtazapine 7.5 mg tablet 7.5 mg PO BEDTIME fluoxetine 10 mg capsule 10 mg PO DAILY aspirin 81 mg tablet,delayed release (DR/EC) 81 mg PO DAILY metoprolol succinate 50 mg tablet extended release 24 hr 50 mg PO DAILY benztropine 0.5 mg tablet 0.5 mg PO BID atorvastatin 20 mg tablet 20 mg PO BEDTIME (DME) insulin syringe-needle U-100 [UltiCare] 0.5 mL 30 gauge x 1/2 syringe See Rx Instructions .ROUTE DAILY Qty: 10 Rx Instructions: As directed Trulicity 0.75 mg/0.5 mL pen injector 0.75 mg subcut SA (DME) lancets [TRUEplus Lancets] 33 gauge misc See Rx Instructions .ROUTE DAILY Qty: 100 Rx Instructions: As directed (DME) pen needle, diabetic [Easy Touch] 31 gauge x 1/4 needle See Rx Instructions .ROUTE DIRECTED Qty: 100 Rx Instructions: As directed (DME) FreeStyle Lite Strips Strip See Rx Instructions .ROUTE DAILY Qty: 10 Rx Instructions: As directed famotidine [Pepcid] 20 mg tablet 20 mg PO BEDTIME Qty: 30 3RF gabapentin 100 mg capsule 100 mg PO BEDTIME insulin glargine [Lantus Solostar U-100 Insulin] 100 unit/mL (3 mL) insulin pen 10 unit subcut DAILY Discontinued Jardiance 10 mg tablet 10 mg PO QAM Discharge Orders: Discharge Order (Routine); Ordered 01/02/25 Ordered By: Adonis Katz Diet: Advance to usual diet Activity on Discharge: As tolerated Stand Alone Forms: Patient Portal Discharge page Print Language: Irish Care Plan Goals: Recovery Health Concerns: UTI, pneumonia Plan of Treatment: 3 more days of cefuroxime Assessment: See above
--- NOTE | 2025-01-02 12:41 | P.F2F_ITS ---
Service Date Service Date: 01/02/25 Encounter Date of encounter: 01/02/25 Reasons for Services Signs and symptoms assessed: weakness Reason for penitentiary: medication management, medication treatment and teach disease management Reason for physical therapy: home safety and mobility and therapeutic exercises Homebound: Leaving the home is medically contraindicated at this time without the asist of a device and/or another person due th the listed conditions above and below. Reason homebound: unsteady gait / fall risk Certification: Based on the above findings, I certify that this patient is confined to the home and needs intermittent penitentiary care, physical therapy and/or speech therapy, or continues to need occupational therapy. The patient is under my care, and I have initiated the establishment of the plan of care. The patient will be followed by a physician who will periodically review the plan of care. Time Spent With Patient Time: Total time managing care of this patient today ____ minutes.
--- NOTE | 2025-01-02 12:49 | MHC.CM.PN ---
Pt has been medically cleared for DC. She will go home via family transport, and have home care services from [facility].
== END 2025-01-02 13:30 | disposition home health service (06) | DRG 720 ==
LOC: HO.ED 17:58 → HO.EDOVER 19:35 → HO.IMC 23:34
PROVIDERS: Hospitalist; Internal Medicine Critical Care Medicine; Registered Nurse Emergency; Student in an Organized Health Care Education/Training Program; Admitting Provider Student in an Organized Health Care Education/Training Program; Emergency Provider Emergency Medicine Emergency Medical Services; PCP Internal Medicine Geriatric Medicine; Visit Provider Internal Medicine
DX: A41.9 Sepsis, unspecified organism (principal); J96.01 Acute respiratory failure with hypoxia; I50.23 Acute on chronic systolic (congestive) heart failure; E87.21 Acute metabolic acidosis; N17.9 Acute kidney failure, unspecified; J18.9 Pneumonia, unspecified organism; E87.1 Hypo-osmolality and hyponatremia; E11.22 Type 2 diabetes mellitus with diabetic chronic kidney disease; I13.0 Hypertensive heart and chronic kidney disease with heart failure and stage 1 through stage 4 chronic kidney disease, or unspecified chronic kidney disease; E11.42 Type 2 diabetes mellitus with diabetic polyneuropathy; E11.65 Type 2 diabetes mellitus with hyperglycemia; K56.41 Fecal impaction; N39.0 Urinary tract infection, site not specified; B96.89 Other specified bacterial agents as the cause of diseases classified elsewhere; E78.5 Hyperlipidemia, unspecified; I95.2 Hypotension due to drugs; R19.7 Diarrhea, unspecified; R29.6 Repeated falls; E86.0 Dehydration; E87.6 Hypokalemia; R65.20 Severe sepsis without septic shock; N18.30 Chronic kidney disease, stage 3 unspecified; F17.210 Nicotine dependence, cigarettes, uncomplicated; Z20.822 Contact with and (suspected) exposure to COVID-19; Z71.6 Tobacco abuse counseling; Z79.4 Long term (current) use of insulin; Z79.82 Long term (current) use of aspirin; Z79.85 Long-term (current) use of injectable non-insulin antidiabetic drugs; Z79.899 Other long term (current) drug therapy
CPT/HCPCS: 36415; 70450; 71045; 71046; 72125; 74176; 80048; 80053; 80061; 80076; 81001; 82010; 82247; 82550; 82803; 82947; 83605; 83615; 83735; 83880; 84484; 85007; 85025; 85027; 85610; 85730; 86140; 86850; 86900; 86901; 87040; 87086; 87088; 87186; 87493; 87507; 87633; 89055; 93005; 93306; 97162; 99285; J0696; J1271; J1644; J7120; P9047; Q9957

== ENCOUNTER → 2024-12-29 08:29 | Outpatient (BNV) | payer MEDICAID, SELFPAY | PROVIDERS: Admitting Provider Student in an Organized Health Care Education/Training Program; Emergency Provider Emergency Medicine Emergency Medical Services; PCP Internal Medicine Geriatric Medicine; Visit Provider Internal Medicine | DX: R55 Syncope and collapse (principal) | CPT/HCPCS: 93010 ==

== ENCOUNTER → 2024-12-29 08:29 | Outpatient (BNV) | payer MEDICAID, SELFPAY | PROVIDERS: Emergency Provider Emergency Medicine Emergency Medical Services; PCP Internal Medicine Geriatric Medicine; Visit Provider Radiology Diagnostic Radiology | DX: Q62.39 Other obstructive defects of renal pelvis and ureter (principal); K56.41 Fecal impaction; M47.812 Spondylosis without myelopathy or radiculopathy, cervical region; G31.1 Senile degeneration of brain, not elsewhere classified; I67.2 Cerebral atherosclerosis; I67.82 Cerebral ischemia; I51.7 Cardiomegaly; R91.8 Other nonspecific abnormal finding of lung field | CPT/HCPCS: 70450; 71045; 71046; 72125; 74176 ==

== ENCOUNTER → 2024-12-29 08:42 | Outpatient (BNV) | payer MEDICAID, SELFPAY | PROVIDERS: Emergency Provider Emergency Medicine Emergency Medical Services; PCP Internal Medicine Geriatric Medicine; Visit Provider Internal Medicine Critical Care Medicine | DX: E11.21 Type 2 diabetes mellitus with diabetic nephropathy (principal); Z79.4 Long term (current) use of insulin; I95.9 Hypotension, unspecified; F32.9 Major depressive disorder, single episode, unspecified; E87.1 Hypo-osmolality and hyponatremia | CPT/HCPCS: 99221 ==

== ENCOUNTER 2024-12-29 17:58 | Outpatient (BNV) | payer MEDICAID, SELFPAY | END 2024-12-31 22:31 | PROVIDERS: Admitting Provider Student in an Organized Health Care Education/Training Program; Emergency Provider Emergency Medicine Emergency Medical Services; PCP Internal Medicine Geriatric Medicine; Visit Provider Radiology Neuroradiology | DX: J81.1 Chronic pulmonary edema (principal) | CPT/HCPCS: 71045 ==

== ENCOUNTER 2024-12-29 17:58 | Outpatient (BNV) | payer MEDICAID, SELFPAY | END 2025-01-01 07:00 | PROVIDERS: Admitting Provider Student in an Organized Health Care Education/Training Program; Emergency Provider Emergency Medicine Emergency Medical Services; PCP Internal Medicine Geriatric Medicine; Visit Provider Internal Medicine | DX: I27.20 Pulmonary hypertension, unspecified (principal); I42.2 Other hypertrophic cardiomyopathy; I51.7 Cardiomegaly; I36.1 Nonrheumatic tricuspid (valve) insufficiency | CPT/HCPCS: 93306 ==

== ENCOUNTER → 2024-12-29 17:58 | Outpatient (BNV) | payer MEDICAID, SELFPAY | PROVIDERS: Admitting Provider Student in an Organized Health Care Education/Training Program; Emergency Provider Emergency Medicine Emergency Medical Services; PCP Internal Medicine Geriatric Medicine; Visit Provider Internal Medicine Hypertension Specialist | DX: E87.1 Hypo-osmolality and hyponatremia (principal); N18.32 Chronic kidney disease, stage 3b; I95.9 Hypotension, unspecified; E87.20 Acidosis, unspecified | CPT/HCPCS: 99223; 99232; 99499 ==

== ENCOUNTER → 2024-12-29 17:58 | Outpatient (BNV) | payer MEDICAID, SELFPAY | PROVIDERS: Admitting Provider Student in an Organized Health Care Education/Training Program; Emergency Provider Emergency Medicine Emergency Medical Services; PCP Internal Medicine Geriatric Medicine; Visit Provider Student in an Organized Health Care Education/Training Program | DX: E11.21 Type 2 diabetes mellitus with diabetic nephropathy (principal); Z79.4 Long term (current) use of insulin | CPT/HCPCS: 99223; 99232; 99233; 99239; 99499; G0180 ==

== ENCOUNTER 2025-01-07 10:42 | Inpatient (IN) | payer MEDICAID, SELFPAY ==
[2025-01-07] VITALS (14 sets, daily range): BP systolic 89–133; BP diastolic 48–86; PULSE 59–101; RESP 14–20; TEMP 36.6–37.1; O2SAT 96–98; BMI 29.3
--- NOTE | ~2025-01-07 | CT_ITS ---
EXAMINATION: CT CERVICAL SPINE WITHOUT CONTRAST CLINICAL INFORMATION: Syncope, fall. COMPARISON: 12/29/2024, 03/08/2024. TECHNIQUE: Spiral CT imaging of the cervical spine performed in axial plane without contrast. Multiplanar reformatted images were constructed from the axial data set. This CT examination was performed using dose optimization techniques as appropriate, variously including the following: *Automated exposure control *Adjustment of mA and/or kV according to patient size (this includes techniques or standardized protocols for targeted exams where dose is matched to indication/reason for exam; i.e. extremities or head) *Use of iterative reconstruction technique FINDINGS: CORONAL ALIGNMENT: -Normal SAGITTAL ALIGNMENT: -Normal lordosis. -No subluxations or malalignment. C1-C2 AND CRANIOCERVICAL JUNCTION: -Intact and normally aligned. There are mild degenerative changes of the anterior atlantoaxial joint. VERTEBRAL BODIES AND FACETS: -No fracture, compression deformity, traumatic subluxation, or suspicious bone lesion. -There is normal facet alignment. Mild bilateral degenerative facet changes. DISCS: -Mild disc degeneration present C5-6. Disc spaces otherwise grossly maintained. CENTRAL CANAL: -No evidence of high-grade central canal narrowing or large disc herniation allowing for modality limitations. PREVERTEBRAL AND PARAVERTEBRAL SOFT TISSUES: -No prevertebral or paravertebral soft tissue abnormality. Normal-appearing thyroid. -Mild carotid bulb calcifications bilaterally. LUNG APICES: -Clear bilaterally. No pneumothorax. CT/CT cervical spine wo IV con IMPRESSION: 1. No CT evidence of acute cervical spine fracture or injury. Electronically signed by: Sujit Calhoun MD 01/07/2025 01:58 PM EDT
--- NOTE | ~2025-01-07 | CT_ITS ---
EXAMINATION: CT HEAD WITHOUT CONTRAST CLINICAL INFORMATION: Syncope. COMPARISON: 12/29/2024. 03/08/2024. TECHNIQUE: Contiguous axial imaging was performed from the skull base to vertex without intravenous administration of contrast. This CT examination was performed using dose optimization techniques as appropriate, variously including the following: *Automated exposure control *Adjustment of mA and/or kV according to patient size (this includes techniques or standardized protocols for targeted exams where dose is matched to indication/reason for exam; i.e. extremities or head) *Use of iterative reconstruction technique FINDINGS: There is no evidence of intracranial hemorrhage or extra-axial fluid collection. There is no mass effect, or edema. No CT evidence of acute territorial infarct. Ventricles, sulci, and cisterns are normal in size and configuration for patient age. No hydrocephalus. No midline shift. Negative hyperdense MCA sign. Negative insular ribbon sign. Patchy periventricular and deep white matter hypoattenuation is consistent with mild to moderate small vessel ischemic changes. 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 Additional old lacunar type infarcts present in the bilateral anterior gangliocapsular regions. Mild atheromatous calcification of the bilateral carotid siphons and V4 segments vertebral arteries bilaterally. Globes and orbital contents image normally. No extracranial soft tissue abnormalities. The paranasal sinuses, mastoid air cells, and tympanic cavities are normally aerated. No suspicious bony abnormalities. There are no acute fractures evident. CT/CT head/brain wo IV con IMPRESSION: 1. No acute intracranial abnormality. 2. Chronic findings as discussed. Electronically signed by: Sujit Calhoun MD 01/07/2025 01:53 PM EDT
--- NOTE | ~2025-01-07 | XR_ITS ---
EXAMINATION: XR CHEST CLINICAL INFORMATION: sob COMPARISON: December 31, 2024. TECHNIQUE: Frontal view of the chest was obtained. FINDINGS: Mild prominence of the interstitial markings. No consolidation, pleural effusion or pneumothorax. Low lung volume. Cardiomediastinal silhouette size is normal. Degenerative changes in the left acromioclavicular joint. XR/XR chest 1V IMPRESSION: Mild interstitial lung edema in the correct clinical settings. Electronically signed by: Dung Wiggins MD 01/07/2025 12:22 PM EDT
--- NOTE | ~2025-01-07 | CT_ITS ---
EXAMINATION: CT ABDOMEN AND PELVIS WITHOUT CONTRAST CLINICAL INFORMATION: Pneumatosis in the colon, follow-up. COMPARISON: January 07, 2025. TECHNIQUE: Multidetector volumetric imaging was performed from the superior aspect of the liver through the pubic symphysis. Sagittal and coronal reformatted images were obtained on the technologist's workstation. This CT examination was performed using dose optimization techniques as appropriate, variously including the following: *Automated exposure control *Adjustment of mA and/or kV according to patient size (this includes techniques or standardized protocols for targeted exams where dose is matched to indication/reason for exam; i.e. extremities or head) *Use of iterative reconstruction technique Oral contrast: 900 cc. DLP: 582 mGy centimeter. FINDINGS: Inadequate evaluation of the intra-abdominal organs and vascular structures due to lack of IV contrast. LUNG BASES: Bilateral pleural effusions, moderate volume and compression atelectasis versus infiltrate, lung bases. Small pericardial effusion.. LIVER, GALLBLADDER, AND BILIARY TREE: The liver measures 18 cm. No intrahepatic biliary ductal dilatation. No pericholecystic fluid collection or gallbladder wall thickening. No extrahepatic biliary ductal dilatation. PANCREAS: No peripancreatic fluid collection. No main pancreatic ductal dilatation. SPLEEN: 11 cm. ADRENAL GLANDS: No nodular lesions. KIDNEYS AND URETERS: No hydronephrosis. No nephrolithiasis. BLADDER: Fluid-filled. GASTROINTESTINAL TRACT: There is a segmental area of the thyroid intestinal wall thickening involving the distal descending colon. There is abundant stool throughout the large intestine mostly the right hemicolon and transverse colon. There is no pneumatosis intestinalis. No pneumoperitoneum. No ascites. No extraluminal oral contrast. ABDOMINAL WALL: Fat-containing umbilical hernia, small. There is edema pattern throughout the fat planes of the abdomen and pelvis and upper thighs without fluid collection. LYMPH NODES: Prominent in the inguinal regions and to a lesser extent mesenteric. VASCULAR: No aneurysm, abdominal aorta. No gas within the main portal vein or the SMV. Calcified plaques distal abdominal aorta wall. Small pericardial effusion. PELVIC VISCERA: Inadequate evaluation. No gross masses in the uterus nor left adnexa. OSSEOUS STRUCTURES: No acute fracture or listhesis. No lytic or blastic lesions. Bony pelvis is intact. Coxofemoral joints are intact. CT/CT abdomen pelvis wo IV con IMPRESSION: Segmental of asymmetric wall thickening distal descending colon. Inflammatory versus infectious versus neoplasm. Anasarca. No pneumatosis intestinalis or gas within the mesenteric veins nor the main portal vein. Fleischner guidelines were followed. Electronically signed by: Dung Wiggins MD 01/10/2025 03:20 PM EDT RP
--- NOTE | ~2025-01-07 | CT_ITS ---
CLINICAL HISTORY: diarrhea Exam: CT Abdomen and Pelvis Without IV Contrast Comparison: 12/29/2024 Findings: The liver density is homogeneous The gallbladder is normal in size containing sludge. The spleen is normal in size No pancreatic ductal dilatation No hydronephrosis. No urinary tract calculi or obstruction. There is gas and fluid distention of the transverse and descending colon. No secondary signs of acute appendicitis No free air. A 2.5 cm fluid collection is present in the posterior cul-de-sac The abdominal aorta caliber is normal Bladder outline is smooth. Uterus is normal in size No suspicious skeletal lesions Impression : There is dilated transverse and descending colon, measuring 9.6 cm in greatest diameter with linear bowel wall air bubble collection suspicious for bowel wall pneumatosis, image 47, series 5. Recommend to check lactate and C-reactive protein to differentiate between benign pneumatosis versus pathologic ischemia. Bowel wall blood flow is difficult to determine without intravenous contrast. Anasarca, abdominal wall edema, small bilateral pleural effusions and small pericardial effusion may be due to fluid and electrolyte imbalance. This document has been electronically signed by: Chong Young MD on 01/07/2025 18:17:16
--- NOTE | 2025-01-07 10:51 | ECG_ITS ---
Test Reason : HYPOTINSIVE Blood Pressure : */* mmHG Vent. Rate : 91 BPM Atrial Rate : 91 BPM P-R Int : 154 ms QRS Dur : 96 ms QT Int : 410 ms P-R-T Axes : 47 33 43 degrees QTcB Int : 504 ms Normal sinus rhythm Nonspecific T wave abnormality Prolonged QT Abnormal ECG When compared with ECG of 29-Dec-2024 09:17, Nonspecific T wave abnormality now evident in Anterior leads Referred By: Danisha Florentino Electronically Signed By: Antonio Foster
--- NOTE | 2025-01-07 11:13 | ED.GENADULT ---
HPI - General Adult General Chief complaint: General Medical Stated complaint: SYNCOPAL EPIS WHEN EATING,LETHARGIC,LOW BP 64/40 Time Seen by Provider: 01/07/25 11:05 History of Present Illness HPI narrative: History of vasovagal episodes in the past. History of chronic kidney disease, diabetes presented today found on the ground unresponsive had a low blood pressure. Sent in for further evaluation. Patient unable to provide detailed history. Has a previous history of UTIs in the past. History of vasovagal episodes in the past. Patient unable to give detailed history. Patient denies any blood in his stool. Related Data Home Medications ?Medication ?Instructions ?Recorded ?Confirmed aspirin 81 mg tablet,delayed 81 mg PO DAILY 04/21/22 12/30/24 release atorvastatin 20 mg tablet 20 mg PO BEDTIME 04/21/22 12/30/24 benztropine 0.5 mg tablet 0.5 mg PO BID 04/21/22 12/30/24 fluoxetine 10 mg capsule 10 mg PO DAILY 04/21/22 12/30/24 insulin syringe-needle U-100 0.5 #10 ea 04/21/22 12/26/24 mL 30 gauge x 1/2 (UltiCare) metoprolol succinate 50 mg 50 mg PO DAILY 04/21/22 12/30/24 tablet,extended release 24 hr mirtazapine 7.5 mg tablet 7.5 mg PO BEDTIME 04/21/22 12/30/24 haloperidol 5 mg tablet 1 tab PO BID 05/06/22 12/30/24 prazosin 2 mg capsule 4 mg PO BEDTIME 05/20/23 12/30/24 gabapentin 100 mg capsule 100 mg PO BEDTIME 05/30/24 12/30/24 insulin glargine 100 unit/mL (3 10 unit subcut DAILY 08/27/24 12/30/24 mL) subcutaneous pen (Lantus Solostar U-100 Insulin) dulaglutide 0.75 mg/0.5 mL 0.75 mg subcut SA 11/14/24 12/30/24 subcutaneous [facility] blood sugar diagnostic (FreeStyle #10 ea 12/04/24 12/26/24 Lite Strips) lancets 33 gauge (TRUEplus Lancets) #100 ea 12/04/24 12/26/24 pen needle, diabetic 31 gauge x #100 ea 12/04/24 12/26/2409/14 (Easy Touch) esomeprazole magnesium 40 mg 40 mg PO DAILY@0630 12/30/24 12/30/24 capsule,delayed release (Nexium) prazosin 2 mg capsule 2 mg PO DAILY 12/30/24 12/30/24 sennosides 8.6 mg tablet (Natural 17.2 mg PO BEDTIME PRN constipation 12/30/24 12/30/24 Senna Laxative) Previous Rx's ?Medication ?Instructions ?Recorded pen needle, diabetic 32 gauge x #100 ea 05/23/2311/24 famotidine 20 mg tablet (Pepcid) 20 mg PO BEDTIME #30 tabs 12/04/24 cefuroxime axetil 500 mg tablet 500 mg PO BID #6 tabs 01/02/25 Allergies Allergy/AdvReac Type Severity Reaction Status Date / Time iron Allergy Mild UNKNOWN Verified 01/07/25 10:58 Iodinated Contrast Media Allergy Unknown UNKNOWN Verified 01/07/25 10:58 [IV Dye, Iodine Containing] iodine [IODINE] Allergy Unknown RASH Verified 01/07/25 10:58 seafood Allergy Unknown Unknown Verified 01/07/25 10:58 Review of Systems Review of Systems: Positive generalized malaise weakness PMFSH Past Medical History Attestation statement: The following information was validated with the patient. Medical History Dysphagia Anxiety disorder GERD (gastroesophageal reflux disease) Migraines Asthma On beta jordyn at home Elevated cholesterol HTN (hypertension) Smoker Diabetes Depression Heartburn Surgical History Hx of left knee surgery History of tubal ligation History of esophagogastroduodenoscopy (EGD) H/O colonoscopy Hx of cholecystectomy Social History Social History Household Members: None Housing: Apartment Housing Other:: pt states she lives in an apartment at her daughter's house Do you presently have visiting nurse or other home services: Yes (daughter is pt's SEARCH ENGINE MARKETING SPECIALIST) Alcohol intake: former Comment: 1:1 sitter Patient Tobacco Use Status: Current everyday Tobacco user Tobacco use type: Cigarette Cigarettes Per Day: 5 Years Smoked: 15 Smoked in Last 30 Days: No e-Cigarette/Vaping Use: Never Used Second Hand Smoke Exposure: Yes Use of substances other than those prescribed or required for medical reasons: No Advance Directives: No Advance Directives Information Provided: Yes Do you have a plan to hurt others: No Plan service: No Current occupational status: disabled Physical Exam ED Vital Signs: Vital Signs - 24 hr 01/07/25 10:58 01/07/25 13:25 01/07/25 14:00 Temperature 98.7 F Pulse Rate 89 88 98 Respiratory Rate 18 Blood Pressure 93/57 L 115/68 112/61 Pulse Oximetry 96 Oxygen Delivery Method Room Air 01/07/25 15:07 Temperature 98.1 F Pulse Rate 59 Respiratory Rate 14 Blood Pressure 101/48 L Pulse Oximetry 97 Oxygen Delivery Method Room Air BMI result Body Mass Index 29.3 Appearance: Alert. Oriented X3. Generally weak Eyes: Pupils equal, round and reactive to light. ENT: Pharynx normal. Neck: Normal inspection. Neck supple. No lymph nodes noted. No crepitus CVS: Normal heart rate and rhythm. Pulses normal. Normal S1 and S2 Respiratory: No respiratory distress. Breath sounds normal. No Wheezing. No rales Abdomen: Soft and nontender. No rigidity. No distention. good BS x4 Skin: Skin warm and dry. Normal skin color. Normal skin turgor. Extremities: No lower extremity edema. Neurovascular intact to all extremities. No Lacerations. No Rash Neuro: Oriented X 3. No motor deficit. No sensory deficit. Moving all extermities. No slurred speech. Medications Administered Discontinued Medications Generic Name Dose Route Start Last Admin Trade Name Freq PRN Reason Stop Dose Admin Ceftriaxone Sodium 1 gm 01/07/25 14:09 01/07/25 15:06 Ceftriaxone Sodium 1 Gm Vial IVPUSH 01/07/25 14:10 1 gm ONCE ONE Administration Sodium Chloride 1,000 mls @ 999 mls/hr 01/07/25 11:45 01/07/25 13:06 Ns IV 01/07/25 12:45 Infused .Q1H1M SHAWN Infusion Magnesium Sulfate 2 gm in 50 mls @ 50 mls/hr 01/07/25 12:13 01/07/25 14:44 Magnesium Sulfate/H2o IV 01/07/25 13:12 Infused ONCE ONE Infusion Potassium Chloride 10 meq in 100 mls @ 100 mls/hr 01/07/25 12:15 01/07/25 16:12 Potassium Chloride/H20 IV 01/07/25 14:14 Infused Q1H SHAWN Infusion Sodium Chloride 1,000 mls @ 999 mls/hr 01/07/25 14:15 01/07/25 16:15 Ns IV 01/07/25 15:15 Infused .Q1H1M SHAWN Infusion Sodium Chloride 500 mls @ 999 mls/hr 01/07/25 15:00 01/07/25 16:15 Ns IV 01/07/25 15:30 999 mls/hr .Q31M SHAWN Administration Medical Decision Making Medical Decision Making MDM Narrative: Patient given IV fluids. Labs showed a hemoglobin slightly decreased at 7.1. Baseline is 8. Patient had a slight bandemia of 8%. Cultures were obtained. Antibiotic was started. Previous culture was reviewed. Patient had urine that was sensitive to Rocephin. Patient's VBG showed no significant acidosis. Lactate was normal. After IV fluids patient is symptomatically improved there is no evidence for severe sepsis. Hospitalist team consulted. Will admit for further evaluation. Patient's troponin was negative. BNP 288 likely normal for patient. Patient's C diff was negative. Flu COVID RSV were negative. GI panel was negative. Patient's magnesium was low. It was repleted. Will also replete patient's potassium. Cultures were obtained. IV fluids in. Repeat exam patient is symptomatically improving. Hospitalist team consulted. Patient to be admitted. Differential Diagnosis Differential Diagnoses: The differential diagnosis associated with the presentation includes UTI, dehydration Admission/Observation Consideration of admission/observation: Escalation of care including admission/observation considered Consult Healthcare Provider Management of the patient was discussed with: Hospitalist Lab Data [facility] Lab Attestation statement: I reviewed the patient's lab results. 01/07/25 11:24 01/07/25 11:24 Labs: Lab Results 01/07/25 01/07/25 01/07/25 Range/Units 11:23 11:24 12:53 WBC 8.0 (4.8-10.8) X10*3/uL RBC 2.54 L (4.20-5.50) X10*6/uL Hgb 7.1 L (12.0-16.0) g/dl Hct 21.0 L* (37.0-47.0) % MCV 82.7 (80.0-98.0) fL MCH 28.0 (27.0-33.0) pg MCHC 33.8 (31.0-35.0) g/dl RDW 15.6 (11.0-16.0) % Plt Count 422 H (160-400) X10*3/uL MPV 8.8 L (9.4-12.3) fL Immature Gran % (Auto) Cancelled Neut % (Auto) Cancelled Lymph % (Auto) Cancelled Dolores % (Auto) Cancelled Eos % (Auto) Cancelled Baso % (Auto) Cancelled Lymph # (Auto) Cancelled Dolores # (Auto) Cancelled Eos # (Auto) Cancelled Baso # (Auto) Cancelled Abs Immat Gran (auto) Cancelled Absolute Neuts (auto) Cancelled Absolute Nucleated RBC 0.000 (0.0-0.012) X10*3/uL Nucleated RBC % (auto) 0.0 (0.0-0.2) /100WBC Neutrophils % (Manual) 68 (45-73) % Band Neutrophils % 8 H (3-5) % Lymphocytes % (Manual) 10 L (20-40) % Atypical Lymphs % (Man) 2 (0-6) % Monocytes % (Manual) 12 H (2-11) % Abs Neuts (Manual) 6.1 (2.0-8.3) X10*3/uL Lymphocytes # (Manual) 0.8 L (1.2-4.9) X10*3/uL Atyp Lymphs # (Manual) 0.2 x10*3/uL Monocytes # (Manual) 1.0 (0.1-1.2) X10*3/uL Toxic Vacuolation PRESENT Dohle Bodies PRESENT Chilo Rods TNP Platelet Estimate SLIGHTLY INCREASED (NORMAL) Plt Morphology Comment NORMAL RBC Morphology NOTED Macrocytosis 1+ (5-14) /OIF Acanthocytes (Spur) 2+ (3-5) /OIF PT 15.3 H (10.9-12.4) SEC INR 1.3 H (0.9-1.1) VBG pH (7.32-7.43) VBG pCO2 mmHg VBG pO2 mmHg VBG HCO3 (22-26) mmol/L VBG O2 Saturation VBG Base Excess mmol/L Sodium 132 L (135-145) mmol/L Potassium 2.9 L* (3.3-5.1) mmol/L Chloride 105 (96-108) mmol/L Carbon Dioxide 20 L (22-29) mmol/L Anion Gap 10 L (12-20) BUN 19 H (9-16) mg/dL Creatinine 1.05 (0.5-1.4) mg/dL Estim Creat Clear Calc 52.4 Estimated GFR 53 Random Glucose 144 H (60-115) mg/dL Lactic Acid (0.5-2.0) mmol/L Calcium 7.0 L D (8.4-10.2) mg/dL Magnesium 1.6 (1.6-2.6) mg/dL Total Bilirubin 0.4 (0.0-1.0) mg/dL AST 21 (5-31) U/L ALT < 6 (0-31) U/L Alkaline Phosphatase 100 (39-117) U/L Troponin I High Sens 5.8 D (<3.5-17.0) ng/L B-Natriuretic Peptide 288 H (<100) pg/mL Total Protein 4.4 L (6.5-8.0) g/dL Albumin 2.1 L (3.5-5.0) g/dL Urine Color Dark Yellow Urine Appearance Cloudy Urine pH 5.5 (5.0-9.0) Ur Specific [place] 1.015 (1.005-1.025) Urine Protein 30 (1+) H (Neg-Trace) mg/dL Urine Glucose (UA) 500 H (Negative) mg/dL Urine Ketones Trace (Negative) mg/dL Urine Blood Small (1+) H (Negative) Urine Nitrite Negative (Negative) Ur Leukocyte Esterase Large (3+) H (Negative) Urine RBC 3-5 H (0-2) /HPF Urine WBC 0-5 (0-5) /HPF Ur Squamous Epith Cells >20 (0-2) /HPF Urine Bacteria 2+ (None Seen) Hyaline Casts 0-2 (0-2) /LPF Stl C. cayetanensis PCR Not Detected (Not Detect.) Stool Rotavirus A PCR Not Detected (Not Detect.) Stl Adenov F 40/41 PCR Not Detected (Not Detect.) Stool Astrovirus (PCR) Not Detected (Not Detect.) Stool Campylobacter PCR Not Detected (Not Detect.) Stool Cryptosporidium PCR Not Detected (Not Detect.) Stl Sh Tox Pr E STEC PCR Not Detected (Not Detect.) Stool E coli O157 PCR Not applicable (Not Detect.) Stl Enterotoxigenic E PCR Not Detected (Not Detect.) Stool EPEC (PCR) Not Detected (Not Detect.) Stool EAEC (PCR) Not Detected (Not Detect.) Stl E. histolytica PCR Not Detected (Not Detect.) Stool Giardia Lamblia PCR Not Detected (Not Detect.) Stl P. shigelloides PCR Not Detected (Not Detect.) Stool Salmonella PCR Not Detected (Not Detect.) Stool Sapovirus (PCR) Not Detected (Not Detect.) Stl Shigella/EIEC PCR Not Detected (Not Detect.) St Y.enterocolitica PCR Not Detected (Not Detect.) Stool Vibrio (PCR) Not Detected (Not Detect.) Stl Vibrio cholerae PCR Not Detected (Not Detect.) Stl Norovirus GI/GII PCR Not Detected (Not Detect.) C. difficile Tox B Gene (Negative) Influenza Type A (PCR) NEGATIVE (Negative) Influenza Type B (PCR) NEGATIVE (Negative) RSV RNA Qual (PCR) NEGATIVE (Negative) SARS-CoV-2 RNA (RT-PCR) NEGATIVE (Negative) Blood Type B Positive Antibody Screen NEGATIVE Crossmatch See Detail 01/07/25 01/07/25 01/07/25 Range/Units 12:54 13:00 15:04 WBC (4.8-10.8) X10*3/uL RBC (4.20-5.50) X10*6/uL Hgb (12.0-16.0) g/dl Hct (37.0-47.0) % MCV (80.0-98.0) fL MCH (27.0-33.0) pg MCHC (31.0-35.0) g/dl RDW (11.0-16.0) % Plt Count (160-400) X10*3/uL MPV (9.4-12.3) fL Immature Gran % (Auto) Neut % (Auto) Lymph % (Auto) Dolores % (Auto) Eos % (Auto) Baso % (Auto) Lymph # (Auto) Dolores # (Auto) Eos # (Auto) Baso # (Auto) Abs Immat Gran (auto) Absolute Neuts (auto) Absolute Nucleated RBC (0.0-0.012) X10*3/uL Nucleated RBC % (auto) (0.0-0.2) /100WBC Neutrophils % (Manual) (45-73) % Band Neutrophils % (3-5) % Lymphocytes % (Manual) (20-40) % Atypical Lymphs % (Man) (0-6) % Monocytes % (Manual) (2-11) % Abs Neuts (Manual) (2.0-8.3) X10*3/uL Lymphocytes # (Manual) (1.2-4.9) X10*3/uL Atyp Lymphs # (Manual) x10*3/uL Monocytes # (Manual) (0.1-1.2) X10*3/uL Toxic Vacuolation Dohle Bodies Chilo Rods Platelet Estimate (NORMAL) Plt Morphology Comment RBC Morphology Macrocytosis /OIF Acanthocytes (Spur) /OIF PT (10.9-12.4) SEC INR (0.9-1.1) VBG pH 7.37 (7.32-7.43) VBG pCO2 32 mmHg VBG pO2 62 mmHg VBG HCO3 19 L (22-26) mmol/L VBG O2 Saturation TNP VBG Base Excess -5.3 mmol/L Sodium (135-145) mmol/L Potassium (3.3-5.1) mmol/L Chloride (96-108) mmol/L Carbon Dioxide (22-29) mmol/L Anion Gap (12-20) BUN (9-16) mg/dL Creatinine (0.5-1.4) mg/dL Estim Creat Clear Calc Estimated GFR Random Glucose (60-115) mg/dL Lactic Acid 1.3 (0.5-2.0) mmol/L Calcium (8.4-10.2) mg/dL Magnesium (1.6-2.6) mg/dL Total Bilirubin (0.0-1.0) mg/dL AST (5-31) U/L ALT (0-31) U/L Alkaline Phosphatase (39-117) U/L Troponin I High Sens (<3.5-17.0) ng/L B-Natriuretic Peptide (<100) pg/mL Total Protein (6.5-8.0) g/dL Albumin (3.5-5.0) g/dL Urine Color Urine Appearance Urine pH (5.0-9.0) Ur Specific [place] (1.005-1.025) Urine Protein (Neg-Trace) mg/dL Urine Glucose (UA) (Negative) mg/dL Urine Ketones (Negative) mg/dL Urine Blood (Negative) Urine Nitrite (Negative) Ur Leukocyte Esterase (Negative) Urine RBC (0-2) /HPF Urine WBC (0-5) /HPF Ur Squamous Epith Cells (0-2) /HPF Urine Bacteria (None Seen) Hyaline Casts (0-2) /LPF Stl C. cayetanensis PCR (Not Detect.) Stool Rotavirus A PCR (Not Detect.) Stl Adenov F 40/41 PCR (Not Detect.) Stool Astrovirus (PCR) (Not Detect.) Stool Campylobacter PCR (Not Detect.) Stool Cryptosporidium PCR (Not Detect.) Stl Sh Tox Pr E STEC PCR (Not Detect.) Stool E coli O157 PCR (Not Detect.) Stl Enterotoxigenic E PCR (Not Detect.) Stool EPEC (PCR) (Not Detect.) Stool EAEC (PCR) (Not Detect.) Stl E. histolytica PCR (Not Detect.) Stool Giardia Lamblia PCR (Not Detect.) Stl P. shigelloides PCR (Not Detect.) Stool Salmonella PCR (Not Detect.) Stool Sapovirus (PCR) (Not Detect.) Stl Shigella/EIEC PCR (Not Detect.) St Y.enterocolitica PCR (Not Detect.) Stool Vibrio (PCR) (Not Detect.) Stl Vibrio cholerae PCR (Not Detect.) Stl Norovirus GI/GII PCR (Not Detect.) C. difficile Tox B Gene NEGATIVE (Negative) Influenza Type A (PCR) (Negative) Influenza Type B (PCR) (Negative) RSV RNA Qual (PCR) (Negative) SARS-CoV-2 RNA (RT-PCR) (Negative) Blood Type Antibody Screen Crossmatch Independent Interpretation I performed an independent interpretation of an: EKG (My interpretation patient's EKG showed a sinus pattern heart rate is 90 IA QRS QTC normal no acute ST segment elevation), Plain X-Ray (My interpretation patient's chest x-ray was grossly negative no pneumonia) and CT Scan (CT head showed no acute bleed) Radiology Impression Discussion of test interpretation with radiology: I have reviewed the radiologist's reading. External Record Review External record reviewed: Inpatient record Chronic Conditions History of urinary tract infection history of diabetes Social Determinants Patient?s care significantly limited by Social Determinants of Health including: Problems related to primary support group Critical Care Time Critical Care Time Critical Care Time: Yes Total Critical Care Time: 40 Attestation: I have personally provided 40 minutes of critical care time exclusive of time spent on separately billable procedures. ?Time includes review of lab data, radiology results, discussion with consultants, and monitoring for potential decompensation. ?Interventions were performed as documented above Discharge Plan Discharge Clinical Impression: Urinary tract infection, Syncope Patient Disposition: Admitted As Inpatient
[2025-01-07 11:31] LABS: Hemoglobin 7.1 g/dl (12.0-16.0); Mean Corpuscular HGB Conc 33.8 g/dl (31.0-35.0); Mean Corpuscular Volume 82.7 fL (80.0-98.0); Mean Platelet Volume 8.8 fL (9.4-12.3); Platelet Count 422 X10*3/uL (160-400); Red Blood Count 2.54 X10*6/uL (4.20-5.50); Red Cell Distribution Width 15.6 % (11.0-16.0)
[2025-01-07 11:33] LABS: WBC ABN SCTR FOR CBC 1
[2025-01-07 11:45] LABS: INTERNATIONAL NORM RATIO 1.3 (0.9-1.1); Prothrombin Time 15.3 SEC (10.9-12.4)
[2025-01-07 11:56] LABS: Troponin-I High Sensitivity 5.8 ng/L (<3.5-17.0)
[2025-01-07] MEDS: 0.9 % Sodium Chloride 1,000 ML 999 ML IV ×2 (11:56→14:56)
[2025-01-07 12:01] LABS: Alanine Aminotransferase < 6 U/L (0-31); Albumin Level 2.1 g/dL (3.5-5.0); Alkaline Phosphatase 100 U/L (39-117); Anion Gap 10 (12-20); Aspartate Amino Transferase 21 U/L (5-31); Bilirubin Total 0.4 mg/dL (0.0-1.0); Blood Urea Nitrogen 19 mg/dL (9-16); Carbon Dioxide 20 mmol/L (22-29); Chloride 105 mmol/L (96-108); Creatinine Clr Calc Pharmacy 52.4; Estimated Glomerular Filt Rate 53; Glucose Random 144 mg/dL (60-115); Magnesium 1.6 mg/dL (1.6-2.6); Potassium 2.9 mmol/L (3.3-5.1); Sodium 132 mmol/L (135-145); Total Protein 4.4 g/dL (6.5-8.0)
[2025-01-07 12:04] LABS: B Type Natriuretic Peptide 288 pg/mL (<100)
[2025-01-07 12:22] LABS: Influenza A PCR NEGATIVE (Negative); Influenza B PCR NEGATIVE (Negative); Resp Syncy Virus RNA Qual PCR NEGATIVE (Negative); SARS COV2 PCR INHOUSE NEGATIVE (Negative)
[2025-01-07] MEDS: Magnesium Sulfate/H2O 2 GM/50 ML PIGGYBACK IV (12:23)
[2025-01-07 12:40] LABS: Atypical Lymph Absolute Manual 0.2 x10*3/uL; Atypical Lymphs Percent Manual 2 % (0-6); Band Neutrophils Percent 8 % (3-5); Lymphocytes Absolute Manual 0.8 X10*3/uL (1.2-4.9); Lymphocytes Percent Manual 10 % (20-40); Monocytes Percent Manual 12 % (2-11); Neutrophils Absolute Manual 6.1 X10*3/uL (2.0-8.3); Neutrophils Percent Manual 68 % (45-73)
[2025-01-07 12:43] LABS: Macrocytosis 1+ (5-14) /OIF; RBC Morphology NOTED
[2025-01-07 12:44] LABS: Acanthocytes 2+ (3-5) /OIF; Toxic Vacuolation PRESENT
[2025-01-07 12:45] LABS: Platelet Morphology Comment NORMAL
[2025-01-07 12:46] LABS: Platelet Estimate SLIGHTLY INCREASED (NORMAL)
[2025-01-07 13:03] LABS: VBG Base Excess -5.3 mmol/L; VBG HCO3 19 mmol/L (22-26); VBG pCO2 32 mmHg; VBG pH 7.37 (7.32-7.43); VBG pO2 62 mmHg
[2025-01-07 13:06] LABS: Venous Blood Gas Refer to POC result
[2025-01-07 13:11] LABS: Appearance Urine Cloudy; Color Urine Dark Yellow; Glucose Urine UA 500 mg/dL (Negative); Leukocyte Esterase Urine Large (3+) (Negative); Nitrite Urine Negative (Negative); PH 5.5 (5.0-9.0); Specific Gravity - Urine 1.015 (1.005-1.025); UMIC TRIGGER UACC YES; Urine Blood Small (1+) (Negative); Urine Ketones Trace mg/dL (Negative); Urine Protein 30 (1+) mg/dL (Neg-Trace)
--- OUTSIDE RECORDS SUMMARY | 2025-01-07 13:23 | XMS_ITS | Encounter Summary ---
Author Organization [employer] Address [address] [facility] 7t [place] [address] Care Team Providers Care Community Development Manager Name Role Phone Name, Nolan PADILLA Primary Care Provider [phone] Encounter Details Date Type Department Care Team (Latest Contact Info) Description 09/07/2020 Abstract [facility] Dental, Provider, DDS Social History [...] Care Team (Late st Contact Info) Description 01/10/2025 9:30 AM EDT Office Visit [facility] [address] [place] [phone] NameNolan MD [address] [place] [phone] 03/07/2025 10:15 AM EDT Office Visit [facility] [address] [place] [phone] Nolan Blevins MD [address] [place] [phone] documented as of this encounter Visit Diagnoses Not on filedocumented in this encounter Care Teams Community Development Manager Relationship Specialty Start Date End Date NameNolan MD [address] [place] [phone] PCP - General Family Medicine 06/13/18 documented as of this encounter
--- OUTSIDE RECORDS SUMMARY | 2025-01-07 13:23 | XMS_ITS | Encounter Summary ---
Author Organization [employer] Address [address] [facility] 7t [place] [address] Care Team Providers Care Bobj Developer Name Role Phone Name, Nolan PADILLA Primary Care Provider [phone] Encounter Details Date Type Department Care Team ([facility] st Contact Info) Description 01/03/2025 Patient Outreach [facility] [address] [place], [place] [phone] Name, MD Nolan [address] [place], [place] [phone] Social History Tobacco Use Types Packs/Day Years [...] Description 01/10/2025 9:30 AM EDT Office Visit [facility] [address] [place] [address] NameNloan MD [address] [place] [phone] 03/07/2025 10:15 AM EDT Office Visit [address] [address] Name, MD Nolan [address] [place] [phone] documented as of this encounter Visit Diagnoses Not on filedocumented in this encounter Additional Health Concerns Assessment Noted Time PHQ-9 Depression Total Score: 7 04/18/20 23 10:20 AM EDT documented as of this encounter Care Teams Bobj Developer Relationship Specialty Start Date End Date NameNolan MD [address] [place] [phone] PCP - General Family Medicine 06/13/18 documented as of this encounter
--- OUTSIDE RECORDS SUMMARY | 2025-01-07 13:23 | XMS_ITS | Encounter Summary ---
Author Organization [employer] Address [address] [facility] 7t [place] [address] Care Team Providers Care Dog Hair Clipper Name Role Phone Name, Nolan PADILLA Primary Care Provider [phone] Reason for Visit * Reason Onset Date Comments Nurse Triage 07/27/2023 Encounter Details Date Type Department Care Team (Late st Contact Info) Description 07/27/2023 Telephone [facility] [address] [place], [place] [phone] Name, MD Nolan [address] [place] [address] Nurse Triage Social History Tobacco Use Types [...] t he electric, gas, oil or water [employer] threatened to shut off services in your [...] - 07/27/2023 4:38 PM EST T/C to [phone] to daughter for below message, daughter verbally [...] acuity questions The caller accepted this outcome Belarusian Speaker documented in this encounter Plan of Treatment Upcoming Encounters Date Type Department Care Team (Late st Contact Info) Description 01/10/2025 9:30 AM EDT Office Visit [facility] [address] [place] [phone] NameNolan MD [address] [place] [phone] 03/07/2025 10:15 AM EDT Office Visit [address] [address] Name, MD Nolan [address] [place] [address] documented as of this encounter Visit Diagnoses Not on filedocumented in this encounter Additional Health Concerns Assessment Noted Time PHQ-9 Depression Total Score: 7 04/18/20 23 10:20 AM EDT documented as of this encounter Care Teams Dog Hair Clipper Relationship Specialty Start Date End Date NameNolan MD [address] [place] [phone] PCP - General Family Medicine 06/13/18 documented as of this encounter
--- OUTSIDE RECORDS SUMMARY | 2025-01-07 13:23 | XMS_ITS | Encounter Summary ---
Author Organization [employer] Address [address] [facility] 7t [place] [address] Care Team Providers Care Biophysics Teacher Name Role Phone Name, Nolan PADILLA Primary Care Provider [phone] Reason for Visit * Reason Comments Med Refill Encounter Details Date Type Department Care Team (Late st Contact Info) Description 09/21/2023 Refill [facility] [address] [place], [place] [phone] Name, MD Nolan [address] [place] [address] Hypertension, unspecified type Social History Tobacco Use [...] Description 01/10/2025 9:30 AM EDT Office Visit [facility] [address] [place] [phone] NameNolan MD [address] [place] [address] 03/07/2025 10:15 AM EDT Office Visit [facility] [address] [place] [address] NameNolan MD [address] [place] [phone] documented as of this encounter Visit Diagnoses Diagnosis Hypertension, unspecified type documented in this encounter Additional Health Concerns Assessment Noted Time PHQ-9 Depression Total Score: 7 04/18/20 23 10:20 AM EDT documented as of this encounter Care Teams Biophysics Teacher Relationship Specialty Start Date End Date NameNolan MD [address] [place] [phone] PCP - General Family Medicine 06/13/18 documented as of this encounter
--- OUTSIDE RECORDS SUMMARY | 2025-01-07 13:23 | XMS_ITS | Encounter Summary ---
Author Organization [employer] Address [address] [facility] 7t [place] [address] Care Team Providers Care Sales And Leasing Agent Name Role Phone Name, Nolan PADILLA Primary Care Provider [phone] Reason for Visit * Reason Onset Date Comments Med Refill 07/03/2024 Encounter Details Date Type Department Care Team (Late st Contact Info) Description 07/03/2024 Telephone [facility] [address] [place], [place] [phone] Name, MD Nolan [address] [place] [address] Med Refill Social History Tobacco Use Types [...] 20 MG tablet To be sent to: [facility] - [place], [place] - [address] [place] [address] documented in this encounter Plan of Treatment Upcoming Encounters Date Type Department Care Team ([facility] st Contact Info) Description 01/10/2025 9:30 AM EDT Office Visit [facility] [address] [place] [phone] Name, MD Nolan [address] [place] [phone] 03/07/2025 10:15 AM EDT Office Visit [facility] [address] [place] [phone] NameNolan MD [address] [place] [phone] documented as of this encounter Visit Diagnoses Not on filedocumented in this encounter Additional Health Concerns Assessment Noted Time PHQ-9 Depression Total Score: 7 04/18/20 10:20 AM EDT documented as of this encounter Care Teams Sales And Leasing Agent Relationship Specialty Start Date End Date Name, MD Nolan [address] [place] [address] PCP - General Family Medicine 06/13/18 documented as of this encounter
--- OUTSIDE RECORDS SUMMARY | 2025-01-07 13:23 | XMS_ITS | Encounter Summary ---
Author Organization [employer] Address [address] [place] [address] 7t [place] [address] Care Team Providers Care Casing Grader Name Role Phone Name, Nolan PADILLA Primary Care Provider [phone] Reason for Visit * Reason Comments Med Refill Encounter Details Date Type Department Care Team (Late st Contact Info) Description 04/25/2023 Refill [facility] & PEDS [address] [place], [place] [phone] Marlys Romero FNP [address] [place] [address] Dept [place] [address] Type 2 diabetes mellitus without complication, unspecified whether ocean transportation intermediary insulin use ([facility]) Social History Tobacco Use Types [...] Description 01/10/2025 9:30 AM EDT Office Visit [facility] MEDICINE [address] [place] [address] [phone] Name, MD Nolan [address] [place], [place] [phone] 03/07/2025 10:15 AM EDT Office Visit [facility] MEDICINE [address] [place] [address] Name, [place] [address] documented as of this encounter Visit Diagnoses Diagnosis Type 2 diabetes mellitus without complication, unspecified whether ocean transportation intermediary insulin use ([facility]) documented in this encounter Additional Health Concerns Assessment Noted Time PHQ-9 Depression Total Score: 7 04/18/20 23 10:20 AM EDT documented as of this encounter Care Teams Casing Grader Relationship Specialty Start Date End Date Name, [place] [address] PCP - General Family Medicine 06/13/18 documented as of this encounter
--- OUTSIDE RECORDS SUMMARY | 2025-01-07 13:23 | XMS_ITS | Encounter Summary ---
Author Organization [employer] Address [address] [facility] 7t [place] [address] Care Team Providers Care Medical Asst Name Role Phone Name, Nolan PADILLA Primary Care Provider [phone] Reason for Visit * Reason Comments Transition Of Care (Tcm) HDF scheduled. Encounter Details Date Type Department Care Team (Late st Contact Info) Description 01/03/2025 Patient Outreach [facility] & [facility]EDS [address] [place], [place] [phone] Name, MD Nolan [address] [place] [address] Transition Of Care (Tcm) (HDF scheduled. ) Social History Tobacco Use Types Packs/Day Years [...] as of this encounter Miscellaneous Notes * Significant Event - Bhavana Fonseca - 01/03/2025 10:06 AM EDT 01/03/25 1003 Hospital Discharges and Admission for [facility] Type of Visit Hospital Admission Date of Admission/Visit 12/29/24 Date of Discharge 01/02/25 [facility] Diagnosis Diabetes Disposition Discharged Home Follow-Up Actions Follow-Up Needed Provider appointment Follow-Up Outcome Spoke to Patient;Booked Appointment Initial Contact Date 01/03/25 MARISOL Chapman placed outbound call to patient for HDF outreach. Patient's name and were confirmed. Patient educated on the importance of follow up with provider following inpatient admission. Patient offered an HDF appt. Patient is agreeable to an appointment and has been scheduled for 01/10 at9:30am with Dr. Blevins. Patient provided with education on contacting the Health Center with any questions or concerns prior to the scheduled appointment. Patient educated on extended clinic hours on Mondays and Wednesdays, and Walk-In Urgent Care Located in [facility]. Patient provided with after-hours line for [facility], , which offer night time triage service and [facility]. CC scanned discharge summary into patient's chart. Biggest concern for appointment at this time is no concerns. Appropriate screenings completed in anticipation of appointment. documented in this encounter Plan of Treatment Upcoming Encounters Date Type Department Care Team ([facility] st Contact Info) Description 01/10/2025 9:30 AM EDT Office Visit [facility] MEDICINE [address] [place] [address] Name, MD Nolan [address] [place] [address] 03/07/2025 10:15 AM EDT Office Visit [facility] [address] [facility] [place] [address] Name, MD Nolan [address] [place] [address] documented as of this encounter Visit Diagnoses Not on filedocumented in this encounter Additional Health Concerns Assessment Noted Time PHQ-9 Depression Total Score: 7 04/18/20 23 10:20 AM EDT documented as of this encounter Care Teams Medical Asst Relationship Specialty Start Date End [place] [address] PCP - General Family Medicine 06/13/18 documented as of this encounter
--- OUTSIDE RECORDS SUMMARY | 2025-01-07 13:23 | XMS_ITS | Encounter Summary ---
Author Organization [employer] Address 75 [facility] 7t [place] [address] Care Team Providers Care Storage Center Manager Name Role Phone Name, Nolan PADILLA Primary Care Provider [phone] Encounter Details Date Type Department Care Team (Late st Contact Info) Description 01/03/2025 Patient Outreach [facility] [address] [place], [place] [phone] Name, MD Nolan [address] [place] [address] Social History Tobacco Use Types Packs/Day Years [...] Description 01/10/2025 9:30 AM EDT Office Visit [facility] MEDICINE [address] [place] [phone] NameNolan MD [address] [place] [address] 03/07/2025 10:15 AM EDT Office Visit [address] [address] Name, MD Nolan [address] [place] [address] documented as of this encounter Visit Diagnoses Not on filedocumented in this encounter Additional Health Concerns Assessment Noted Time PHQ-9 Depression Total Score: 7 04/18/20 23 10:20 AM EDT documented as of this encounter Care Teams Storage Center Manager Relationship Specialty Start Date End Date NameNolan MD [address] [place] [address] PCP - General Family Medicine 06/13/18 documented as of this encounter
--- OUTSIDE RECORDS SUMMARY | 2025-01-07 13:23 | XMS_ITS | Encounter Summary ---
Author Organization [employer] Address 75 [facility] 7t [place] [address] Care Team Providers Care Community Music Therapist Name Role Phone Name, Nolan PADILLA Primary Care Provider [phone] Reason for Visit * Reason Onset Date Comments Reschedule 10/04/2023 Encounter Details Date Type Department Care Team (Late st Contact Info) Description 10/04/2023 Telephone [facility] MEDICINE 230 [place], [place] [phone] Name, MD Nolan [address] [place] [address] Reschedule Social History Tobacco Use Types Packs/Day [...] requesting r/s f/u appt from 10/06/23, senior technical writer 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 documented in this encounter Plan of Treatment Upcoming Encounters Date Type Department Care Team (Late st Contact Info) Description 01/10/2025 9:30 AM EDT Office Visit [facility] MEDICINE [address] [place] [address] Name, MD Nolan [address] [place] [address] 03/07/2025 10:15 AM EDT Office Visit [address] [address] Name, MD Nolan [address] [place] [address] documented as of this encounter Visit Diagnoses Not on filedocumented in this encounter Additional Health Concerns Assessment Noted Time PHQ-9 Depression Total Score: 7 04/18/20 23 10:20 AM EDT documented as of this encounter Care Teams Community Music Therapist Relationship Specialty Start Date End Date NameNolan MD [address] [place] [address] PCP - General Family Medicine 06/13/18 documented as of this encounter
--- OUTSIDE RECORDS SUMMARY | 2025-01-07 13:23 | XMS_ITS | Encounter Summary ---
Author Organization [employer] Address 75 [facility] 7t [place] [address] Care Team Providers Care Motion Picture Director Name Role Phone Name, Nolan PADILLA Primary Care Provider [phone] Reason for Visit * Reason Onset Date Comments Hospital Follow-up 01/03/2025 Encounter Details Date Type Department Care Team ([facility] st Contact Info) Description 01/03/2025 Telephone [facility] MEDICINE 230 [place], [place] [phone] Name, MD Nolan [address] [place] [address] Hospital Follow-up Social History Tobacco Use Types Packs/Day Years [...] encounter Miscellaneous Notes * Telephone Encounter - Val Packer RN - 01/03/2025 9:32 AM EDT TC placed to pt with S sprigger #[id number] and a VM was left to call back [facility] to schedule HDF appt * Telephone Encounter - Nolan Blevins MD - 01/03/2025 6:39 AM EDT This patient was just discharged from the hospital. She will need a follow up with philo team provider documented in this encounter Plan of Treatment Upcoming Encounters Date Type Department Care Team (Late st Contact Info) Description 01/10/2025 9:30 AM EDT Office Visit [facility] MEDICINE [address] [place] [address] NameNolan MD [address] [place] [address] 03/07/2025 10:15 AM EDT Office Visit [facility] MEDICINE [address] [place] [address] Nolan Blevins MD [address] [place] [address] documented as of this encounter Visit Diagnoses Not on filedocumented in this encounter Additional Health Concerns Assessment Noted Time PHQ-9 Depression Total Score: 7 04/18/20 23 10:20 AM EDT documented as of this encounter Care Teams Motion Picture Director Relationship Specialty Start Date End Date Name, MD Nolan [address] [place] [address] PCP - General Family Medicine 06/13/18 documented as of this encounter
--- OUTSIDE RECORDS SUMMARY | 2025-01-07 13:23 | XMS_ITS ---
Author Organization [employer] Address [address] [place] [address] 7t [place] [address] Care Team Providers Care Editor Dictionary Name Role Phone Name, Nolan PADILLA Primary Care Provider [phone] [phone] Complex Status:Outreach In Progress (Enrolling) Start date:12/31/2024 Enrollment reason:ADT Feed Overview ADT- Pt admitted to [facility] on 12/29/24 for major depressive d/o. Case Team Name Relationship Phone Courtney Liu (Responsible Staff) Continued Care and Services Coordination
--- OUTSIDE RECORDS SUMMARY | 2025-01-07 13:23 | XMS_ITS ---
Author Organization [employer] Address [address] [facility] 7t [place] [address] Care Team Providers Care Cutter Operator Name Role Phone Name, Nolan PADILLA Primary Care Provider [phone] Complex Status:Identified (Enrolling) Start date:12/31/2024 Enrollment reason:ADT Feed Overview ADT- Pt admitted to [facility] on 12/29/24 for major depressive d/o. Case Team Name Relationship Phone Chyna Kelley RN Registered Nurse(Responsible S taff) Continued Care and Services Coordination
--- OUTSIDE RECORDS SUMMARY | 2025-01-07 13:24 | XMS_ITS | Encounter Summary ---
Author Organization [employer] Address [address] [facility] 7t [place] [address] Care Team Providers Care School Operations Manager Name Role Phone Name, Nolan PADILLA Primary Care Provider [phone] Reason for Visit * Reason Onset Date Comments FYI 01/03/2025 Encounter Details Date Type Department Care Team (Late st Contact Info) Description 01/03/2025 Telephone [facility] MEDICINE [address] [place], [place] [phone] Name, MD Nolan [address] [place], [place] [phone] FYI Social History Tobacco Use Types Packs/Day Years [...] Encounter - Val Packer RN - 01/03/2025 3:31 PM EDT Noted * Telephone Encounter - Ashlyn Travis - 01/03/2025 3:25 PM EDT Tc from [facility] stating pt declined services today because of a family emergency and will be out of state. Services will resume on Tuesday, January 07, 2025. documented in this encounter Plan of Treatment Upcoming Encounters Date Type Department Care Team (Late st Contact Info) Description 01/10/2025 9:30 AM EDT Office Visit [facility] MEDICINE [address] [place] [address] Name, MD Nolan [address] [place] [address] 03/07/2025 10:15 AM EDT Office Visit [facility] MEDICINE [address] [place] [address] Name, MD Nolan [address] [place] [address] documented as of this encounter Visit Diagnoses Not on filedocumented in this encounter Additional Health Concerns Assessment Noted Time PHQ-9 Depression Total Score: 7 04/18/20 23 10:20 AM EDT documented as of this encounter Care Teams School Operations Manager Relationship Specialty Start Date End Date Name, MD Nolan [address] [place] [address] PCP - General Family Medicine 06/13/18 documented as of this encounter
--- OUTSIDE RECORDS SUMMARY | 2025-01-07 13:24 | XMS_ITS | Encounter Summary ---
Author Organization [employer] Address [address] [facility] 7t [place] [address] Care Team Providers Care Clerical Methods Analyst Name Role Phone Name, Nolan PADILLA Primary Care Provider Encounter Details Date Type Department Care Team (Late st Contact Info) Description 01/07/2025 Orders Only [facility] External Provider, [facility] Social History Tobacco Use Types Packs/Day Years [...] Description 01/10/2025 9:30 AM EDT Office Visit [facility] MEDICINE [address] [place] [address] [phone] Name, MD Nolan [address] [place] [address] 03/07/2025 10:15 AM EDT Office Visit [facility] MEDICINE [address] [place] [address] [phone] Name, MD Nolan [address] [place] [address] documented as of this encounter Procedures Procedure Name Priority Date/Time Associated Diagnosis Comments VENOUS BLOOD GAS Routine 01/07/2025 1:00 PM EDT URINALYSIS, COMPLETE, WITH REFLEX TO CULTURE Routine 01/07/2025 12:53 PM EDT XR CHEST 1 VIEW Routine 01/07/2025 11:27 AM EDT documented in this encounter Results * (ABNORMAL) VENOUS BLOOD GAS (01/07/2025 1:00 PM EDT) VBG pH 7.37 7.32 - 7.43 [facility] Comment:METER #: [id number] additional_comment: Cb bdaweh VBG PCO2 32 mmHg [facility] Comment:METER #: [id number] additional_comment: Cb bdaweh VBG PO2 62 mmHg [facility] Comment:METER #: [id number] additional_comment: Cb bdaweh VBG Base Excess -5.3 mmol/L [facility] Comment:METER #: [id number] additional_comment: Cb bdaweh VBG HCO3 19(L) 22 - 26 mmol/L [facility] Comment:METER #: [id number] additional_comment: Cb bdaweh O2 Sat, Christopher TNP % [facility] 01/07/2025 1:00 PM EDT 01/07/2025 1:03 PM EDT us Generic External Data Provider LAB BLOOD ORDERAB LES Final Result Performing Organization Address [facility]/ZIP Co de Phone Number [facility] [address] [place] [address] [phone] * (ABNORMAL) Urinalysis, Complete, with Reflex to Culture (01/07/2025 12:53 PM EDT) Color Urine Dark Yellow [facility] Appearance Urine Cloudy [facility] PH 5.5 5.0 - 9.0 [facility] Glucose Urine UA 500(A) Negative mg/dL [facility] Urine Blood Small (1+)(A) Negative [facility] Specific [place] - Urine 1.015 1.005 - 1.025 [facility] Urine Protein 30 (1+)(A) Neg-Trace mg/dL [facility] Urine Ketones Trace Negative mg/dL [facility] Nitrite Urine Negative Negative [facility] Leukocyte Esterase Urine Large (3+)(A) Negative [facility] 01/07/2025 12:5 3 PM EDT 01/07/2025 12:57 PM EDT Narrative [facility] - 01/07/2025 1:13 PM EDT Urine, Clean Catch us Generic External Data Provider LAB URINE ORDERAB LES Final Result Performing Organization Address [facility]/ZIP Co de Phone Number [facility] [address] [place] [address] [phone] * XR Chest 1 View (01/07/2025 11:27 AM EDT) Anatomical Region Laterality Modality Chest Radiographic Cathi ging 01/07/2025 11:2 7 AM EDT Narrative 01/07/2025 12:24 PM EDT ? [facility] ?[address] ?[place] [address] ?XRay Report ? Signed ? Patient: Nazia Pageicita ?MR#: [id number] ?? [id number] ? : 1965 ?Acct:[id number] ? Age/Sex: 59 / F ?ADM Date: 01/07/25 ? Loc: HO.ED ? Attending Dr: ? Ordering Physician: Farrah Taveras MD ?? Date of Service: 01/07/25 ?? Procedure(s): XR chest 1V ?? Accession Number(s): [id number] ? cc: Farrah Taveras MD; Name,Nolan PADILLA ? EXAMINATION: ?? XR CHEST ? CLINICAL INFORMATION: ?? sob ? COMPARISON: ?? December 31, 2024. ? TECHNIQUE: ?? Frontal view of the chest was obtained. ? FINDINGS: ?? Mild prominence of the interstitial markings. No consolidation, pleural ?? effusion or pneumothorax. Low lung volume. Cardiomediastinal silhouette ?? size is normal. Degenerative changes in the left acromioclavicular ?? joint. ? XR/XR chest 1V ?? IMPRESSION: ?? Mild interstitial lung edema in the correct clinical settings. ? Electronically signed by: ??Dung Wiggins MD ??01/07/2025 12:22 PM ?? EDT RP ? Dictated By: ?Dung Hart MD ? Signed By: ?<Electronically signed by Dung Mckeon MD in OV> ? 01/07/25 1222 ? DD/ 1127 ? TD/TT: 01/07/25 1140 ? Fruit Shipper: ? Procedure Note Kaveh Simons - 01/07/[address] [address] XRay Report Signed Patient: Lili PageDanay#: [id number] : 1965Acct:[id number] Age/Sex: 59 / FADM Date: 01/07/25 Loc: HO.ED Attending Dr: Ordering Physician: Farrah Taveras MD Date of Service: 01/07/25 Procedure(s): XR chest 1V Accession Number(s): [id number] cc: Farrah Taveras MD; Name,Nolan PADILLA EXAMINATION: XR CHEST CLINICAL INFORMATION: sob COMPARISON: December 31, 2024. TECHNIQUE: Frontal view of the chest was obtained. FINDINGS: Mild prominence of the interstitial markings. No consolidation, pleural effusion or pneumothorax. Low lung volume. Cardiomediastinal silhouette size is normal. Degenerative changes in the left acromioclavicular joint. XR/XR chest 1V IMPRESSION: Mild interstitial lung edema in the correct clinical settings. Electronically signed by: Dung Wiggins MD 01/07/2025 12:22 PM EDT RP Dictated By: uDng Hart MD Signed By: <Electronically signed by Dung Mckeon MDin OV> 01/07/25 1222 DD/ 1127 TD/TT: 01/07/25 1140 Fruit Shipper: [facility] External Provider IMG XR PROCEDURES Final Result documented in this encounter Visit Diagnoses Not on filedocumented in this encounter Additional Health Concerns Assessment Noted Time PHQ-9 Depression Total Score: 7 04/18/20 23 10:20 AM EDT documented as of this encounter Care Teams Clerical Methods Analyst Relationship Specialty Start Date End Date Name, MD Nolan [address] [place] [address] PCP - General Family Medicine 06/13/18 documented as of this encounter
--- OUTSIDE RECORDS SUMMARY | 2025-01-07 13:24 | XMS_ITS | Clinical Summary ---
Author Organization [employer] Address [address] [facility] [address] [place] [address] Care Team Providers Care Exchange Engineer Name Role Phone Name, Nolan PADILLA Primary Care Provider [phone] Allergies Active Allergy Reactions Criticality Noted Date [...] 023 Active ergocalciferol (Vitamin D2) 1.25 MG (14869 UT) capsule TAKE 1 CAPSULE BY MOUTH [...] complication, with long-term current use of insulin ([facility]) TEST BLOOD SUGAR ONCE DAILY 50 strip 11 024 Active aspirin (Aspirin Adult Low Strength) 81 MG EC tabletIndication s:Hypertension, unspecified type Take 1 tablet (81 mg) by mouth in the morning. 90 tablet 3 024 Active TRUEplus Lancets 33G miscIndications: Type 2 diabetes mellitus with other specified complication, with long-term current use of insulin ([facility]) TEST BLOOD SUGAR EVERY DAY DIRECTED 100 each 1 024 Active Lantus SoloStar 100 UNIT/ML penIndications:T ype 2 diabetes mellitus with other specified complication, with long-term current use of insulin ([facility]) Inject 30 Units under the skin at bedtime. Decrease to 20 units once she starts on Trulicity 3 mL 11 024 Active docusate sodium (Colace) 100 MG capsule TAKE 2 TABLETS BY MOUTH EVERY DAY AT BEDTIME 024 Active pen needle 31G x 6 mm miscIndications: Type 2 diabetes mellitus with hyperglycemia, without long-term current use of insulin ([facility]) USE DIRECTED TO INJECT INSULIN 100 each 1 025 Active atorvastatin (Lipitor) 20 MG tabletIndication s:Diabetes mellitus type 2 in nonobese ([facility]) TAKE 1 TABLET BY MOUTH AT BEDTIME 90 tablet 1 025 Active Trulicity 0.75 MG/0.5ML solution auto-injector INJECT ONE PEN (=0.75MG) SUBCUTANEOUSLY ONCE A WEEK DIRECTED 2 mL 2 025 Active Alcohol Swabs (Alcohol Prep) 70 % padsIndications: Controlled diabetes mellitus type 2 with complications, unspecified whether residential insulin use ([facility]) USE DIRECTED THREE TIMES DAILY 100 each 11 025 Active benztropine (Cogentin) 0.5 MG tabletIndication s:Mood disorder ([facility]) TAKE 1 TABLET BY MOUTH TWICE DAILY IN THE MORNING AND IN THE EVENING 60 tablet 1 025 Active senna (Senokot) 8.6 MG tablet Take 2 tablets by mouth at bedtime. Active famotidine (Pepcid) 20 MG tablet Take 20 mg by mouth at bedtime. 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 PLAN: 1. Follow up with [facility]: Not recommended for follow-up 2. Patient [...] seek services. PLAN: 1. Follow up with [facility]: Not recommended for follow-up 2. Patient goal is to engage in services 3. Behavioral Recommendations a. Ind. Therpay b. MEd. Management c. Use of coping skills provided. Cobalamin deficiency 06/21/2018 Type 2 diabetes mellitus 06/21/2018 Vitamin D deficiency 06/21/2018 Mood disorder 01/10/2018 Noncompliance with treatment 07/05/2017 Hypertension 10/31/2013 Encounters Date Type Department Care Team Description 01/07/2025 Orders Only [facility] External Provider, [facility] 01/06/2025 Patient Outreach [address] [address] Nolan Blevins MD Care Coordination ([facility]/STACIA Gonsalves #2 initial outreach_lvm) 01/03/[address] [address] Nolan Blevins MD [facility] 01/03/2025 Patient Outreach [address] [address] Nolan Blevins MD 01/03/2025 Patient Outreach [address] [address] Nolan Blevins MD 01/03/2025 Patient Outreach [facility] [address] [place] [address] Nolan Blevins MD 01/03/2025 Patient Outreach [facility] [address] [place] [address] Nolan Blevins MD Transition Of Care (Tcm) (HDF scheduled. ) 01/03/[address] [address] Nolan Blevins MD Hospital Follow-up 01/01/2025 Patient Outreach [address] [address] Nolan Blevins MD 12/31/2024 Patient Outreach [address] [address] Nolan Blevins MD Care Coordination ([facility]/STACIA Gonsalves initial outreach_lvm ) 12/31/2024 Patient Outreach [address] [place] [address] Nolan Blevins MD Care Coordination ([facility] Courtney Liu, Chart review ) 12/31/2024 Patient Outreach [facility] [address] [place] [address] Nolan Bleivns MD Care Coordination ([facility] Chart review) 12/31/2024 Patient Outreach [facility] [address] [place] [address] Nolan Blevins MD 12/29/2024 Orders Only [facility] External Provider, [facility] 12/23/2024 Refill [facility] [address] [place] [address] Nolan Blevins MD Depression, unspecified depression type; Diabetic polyneuropathy associated with type 2 diabetes mellitus (CMS/HCC) 12/20/2024 Orders Only GENERIC EXTERNAL DATA DEPARTMENT Provider, Generic External Data 12/14/2024 Refill [facility] [address] [place] [address] Nolan Blevins MD Depression, unspecified depression type 12/12/2024 Refill [facility] [address] [place] [address] Cindy Lainez DO Depression, unspecified depression type 12/11/[address] [address] Elizabeth Perez, Terry 12/04/2024 Orders Only GENERIC EXTERNAL DATA DEPARTMENT Provider, Generic External Data 11/26/[address] [address] Heather Smith [place] may recalls 11/22/2024 Population Health Risk Score [facility] Department [address] [phone] Provider, Population Health Generic 11/21/2024 Refill [facility] [address] [place] [address] Nolan Blevins MD Diabetic polyneuropathy associated with type 2 diabetes mellitus (CMS/HCC); Controlled diabetes mellitus type 2 with complications, 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 ([facility]); Mood disorder ([facility]) 11/21/2024 Refill [facility] [address] [place] [address] Monik Deshpande NP Mood disorder ([facility]) 11/12/2024 Telephone [facility] [address], [place] [phone] NameNolan MD 11/12/2024 Orders Only GENERIC EXTERNAL DATA DEPARTMENT Provider, Generic External Data 11/08/2024 Refill [facility] [address], [place] [phone] NameNolan MD 10/22/2024 Refill [facility] [address] [place], [place] [phone] Justyna Manuel MD Diabetes mellitus type 2 in nonobese ([facility]); Depression, unspecified depression type; Diabetic polyneuropathy associated with type 2 diabetes mellitus ([facility]) 10/12/2024 Refill [facility] [address] [place] [address], [place] [phone] Name, MD Nolan Proteinuria due to type 2 diabetes mellitus ([facility]) ([facility]) from Last 3 Months Immunizations Name Administration [...] Description 01/10/2025 9:30 AM EDT Office Visit [facility] [address] [place] [phone] Name, MD Nolan [address] [place] [phone] 03/07/2025 10:15 AM EDT Office Visit [facility] [address] [place] [address] Name, MD Nolan [address] [place] [phone] Health Maintenance Due Date Last Done Comments [...] series) 2023 Depression Screening 04/18/2024 04/18/2023, 04/18/20 23 SDOH Screening 04/18/2024 04/18/2023 COVID-19 Vaccine ( season) 2024 06/11/2021, 05/21/2021 Influenza Vaccine (#1) 2024 , 07/13/2021, 06/21/2018, Additional history exists Diabetes: Hemoglobin A1C 11/20/2024 024, 07/15/2024, 05/20/2024, Additional history exists Diabetes: Foot Exam 05/20/2025 05/20/2024, 05/20/2024, 05/20/2024, Additional history exists Eye Exam 07/03/2025 07/03/2024, 06/12, 07/03/2024, Additional history exists Tobacco Screening 07/08/2025 07/08/2024 Lipid Panel 12/29/2025 12/29/2024, 03/0 01/2024, 04/18/2023, Additional history exists Colonoscopy 03/13/2028 03/13/2018 Colorectal Cancer Screening 03/13/2028 [...] 1 VIEW Routine 01/07/2025 11:27 AM EDT XR CHEST 1 VIEW Routine 12/31/2024 11:36 PM EDT VENOUS BLOOD GAS Routine 12/29/2024 4:23 PM EDT BETA-HYDROXYBUTYRATE Routine 12/29/2024 4:18 PM EDT CREATINE KINASE, TOTAL Routine 4:18 PM EDT COMPREHENSIVE METABOLIC PANEL Routine 12/29/2024 4:18 PM EDT BASIC METABOLIC PANEL Routine 12/29/2024 4:18 PM EDT B TYPE NATRIURETIC PEPTIDE (BNP) Routine 12/29/2024 4:18 PM EDT XR CHEST 2 VIEWS Routine 12/29/2024 3:19 PM EDT LACTIC ACID LAB USE ONLY Routine 025 1:31 PM EDT LACTIC ACID LAB USE ONLY Routine 025 11:[address] CERVICAL SPINE WO CONTRAST Routine 12/29/2024 10:[address] ABDOMEN PELVIS WO CONTRAST Routine 12/29/2024 10:28 AM EDT XR CHEST 1 VIEW Routine 12/29/2024 9:[address] HEAD STROKE WO CONTRAST Routine 12/29/2024 9:23 AM EDT URINALYSIS, COMPLETE, WITH REFLEX TO CULTURE Routine 12/29/2024 9:21 AM EDT APTT Routine 12/29/2024 8:54 AM EDT PROTHROMBIN TIME-INR Routine 12/29/2024 8:53 AM EDT LACTIC ACID Routine 12/29/2024 8:47 AM EDT HIGH SENSITIVITY TROPONIN I Routine 12/29/2024 8:46 AM EDT LIPID PANEL, STANDARD Routine 12/29/2024 8:46 AM EDT BILIRUBIN, TOTAL Routine 12/29/2024 8:46 AM EDT BASIC METABOLIC PANEL Routine 12/29/2024 8:46 AM EDT CBC WITH AUTO DIFFERENTIAL Routine 12/29/2024 8:46 AM EDT BASIC METABOLIC PANEL Routine 12/20/2024 8:57 AM [...] with long-term current use of insulin (CMS/HCC) ZZZ HISTORICAL HEPATITIS C AB W/REFL TO HCV RNA, QN, PCR Routine 11/13/2020 2:31 PM EST BI MAMMOGRAM SCREENING BILATERAL Routine 06/22/2018 1:13 PM EDT HM COLONOSCOPY Routine 03/13/2018 HM DIABETES EYE EXAM Routine 04/20/2012 from Last 3 Months or Most Recently Relevant to Health Maintenance Results * (ABNORMAL) VENOUS BLOOD GAS (01/07/2025 1:00 PM EDT) Only the most recent of2 resultswithin the time period is included. VBG pH 7.37 7.32 - 7.43 [facility] Comment:METER #: [id number] additional_comment: Cb bdaweh VBG PCO2 32 mmHg [facility] Comment:METER #: [id number] additional_comment: Cb bdaweh VBG PO2 62 mmHg [facility] Comment:METER #: [id number] additional_comment: Cb bdaweh VBG Base Excess -5.3 mmol/L [facility] Comment:METER #: [id number] additional_comment: Cb bdaweh VBG HCO3 19(L) 22 - 26 mmol/L [facility] Comment:METER #: [id number] additional_comment: Cb bdeh O2 Sat, Christopher TNP % [facility] 01/07/2025 1:00 PM EDT 01/07/2025 1:03 PM EDT us Generic External Data Provider LAB BLOOD ORDERAB LES Final Result Performing Organization Address City/State/[facility] Co de Phone Number [facility] [address] [place] [phone] * (ABNORMAL) Urinalysis, Complete, with Reflex to Culture (01/07/2025 12:53 PM EDT) Only the most recent of2 resultswithin the time period is included. Color Urine Dark Yellow [facility] Appearance Urine Cloudy [facility] PH 5.5 5.0 - 9.0 [facility] Glucose Urine UA 500(A) Negative mg/dL [facility] Urine Blood Small (1+)(A) Negative [facility] Specific [place] - Urine 1.015 1.005 - 1.025 [facility] Urine Protein 30 (1+)(A) Neg-Trace mg/dL [facility] Urine Ketones Trace Negative mg/dL [facility] Nitrite Urine Negative Negative [facility] Leukocyte Esterase Urine Large (3+)(A) Negative [facility] 01/07/2025 12:5 3 PM EDT 01/07/2025 12:57 PM EDT Narrative [facility] - 01/07/2025 1:13 PM EDT Urine, Clean Catch us Generic External Data Provider LAB URINE ORDERAB LES Final Result [facility] [address] [place] [address] [phone] * XR Chest 1 View (01/07/2025 11:27 AM EDT) Only the most recent of3 resultswithin the time period is included. Anatomical Region Laterality Modality Chest Radiographic Cathi ging 01/07/2025 11:2 7 AM EDT Narrative 01/07/2025 12:24 PM EDT ? [facility] ?[address] ?[place] [address] ?XRay Report ? Signed ? Patient: Rita Pgae ?MR#: MM ?? [id number] ? : 1965 ?Acct:[id number] ? Age/Sex: 59 / F ?ADM Date: 01/07/25 ? Loc: HO.ED ? Attending Dr: ? Ordering Physician: Farrah Taveras MD ?? Date of Service: 01/07/25 ?? Procedure(s): XR chest 1V ?? Accession Number(s): [id number] ? cc: Farrah Taveras MD; Name,Nolan PADILLA [...] DD/ 1127 ? TD/TT: 01/07/25 1140 ? International Student Advisor: ? Procedure Note Donotparthinterpreter, Image - 01/07/[address] [address] XRay Report Signed Patient: Magnolia Page#: [id number] : 1965Acct:[id number] Age/Sex: 59 / FADM Date: 01/07/25 Loc: HO.ED Attending Dr: Ordering Physician: Farrah Taveras MD Date of Service: 01/07/25 Procedure(s): XR chest 1V Accession Number(s): [id number] cc: Farrah Taveras MD; Name,Nolan PADILLA EXAMINATION: [...] 01/07/2025 12:22 PM EDT RP Dictated By: Dung Hart MD Signed By: <Electronically signed by Dung Mckeon MDin OV> 01/07/25 1222 DD/ 1127 TD/TT: 01/07/25 1140 International Student Advisor: [facility] External Provider IMG XR PROCEDURES Final Result * Beta-Hydroxybutyrate (12/29/2024 4:18 PM EDT) Pathologist [facility] Beta-Hydroxybut yrate 0.07 0.02 - 0.27 mmol/L [facility] 12/29/2024 4:18 PM EDT 12/29/2024 4:22 PM EDT Generic External Data Provider LAB BLOOD ORDERAB LES Final Result Performing Organization Address [facility] Co de Phone Number [facility] [address] [place] [phone] * (ABNORMAL) B Type Natriuretic Peptide (BNP) (12/29/2024 4:18 PM EDT) Pathologist [facility] B Type Natriuretic Peptide 244(H) <100 pg/mL [facility] 12/29/2024 4:18 PM EDT 12/29/2024 4:22 PM EDT Generic External Data Provider LAB BLOOD ORDERAB LES Final Result Performing Organization Address [facility] de Phone Number [facility] [address] [place] [phone] * Creatine Kinase, Total (12/29/2024 4:18 PM EDT) Pathologist [facility] Creatine Kinase Total 46 26 - 140 U/L [facility] 12/29/2024 4:18 PM EDT 12/29/2024 4:22 PM EDT Generic External Data Provider LAB BLOOD ORDERAB LES Final Result Performing Organization Address [facility] de Phone Number [facility] [address] [place] [phone] * (ABNORMAL) Comprehensive Metabolic Panel (12/29/2024 4:18 PM EDT) Pathologist [facility] Sodium 131(L) 135 - 145 mmol/L [facility] Potassium 4.4 3.3 - 5.1 mmol/L [facility] Comment:Slight Hemolysis.Int erpret result with caution. Chloride 111(H) 96 - 108 mmol/L [facility] Carbon Dioxide 9(LL) 22 - 29 mmol/L [facility] Comment:Critical value for t est(s): BIC Results called to and readback by:JEROME Person calling:YEIMIBARBERFarooq Date:12/29/2024Time:17:00. Anion Gap 15 12 - 20 [facility] Urea Nitrogen (BUN) 42(H) 9 - 16 mg/dL [facility] Creatinine, Serum 1.62(H) 0.5 - 1.4 mg/dL [facility] Creatinine Clr Calc Pharmacy 32.8 [facility] Comment:Provided height and weight: 165.1 cm,61.235 kg.eGFR (calculated from the MDRD study equation) and eCrCl(calculated from the Cockcroft-Gault equation) are based ondifferent parameters and may not yield comparable results.If eCrCl result is absurd, please check patient'sheight/weight. Estimated Glomerular Filt Rate 32 [facility] Comment:Chronic Kidney Disea se: Estimated GFR < 60 mL/min/1.88l0Kknryc Kidney Disease: Estimated GFR < 15 mL/min/1.73m2 Glucose 190(H) 60 - 115 mg/dL [facility] Calcium 8.2(L) 8.4 - 10.2 mg/dL [facility] Bilirubin, Total 0.4 0.0 - 1.0 mg/dL [facility] Aspartate Amino Transferase 17 5 - 31 U/L [facility] Comment:Slight Hemolysis.Int erpret result with caution. Alanine Aminotransferase 7 0 - 31 U/L [facility] Total Protein 6.3(L) 6.5 - 8.0 g/dL [facility] Albumin Level 3.7 3.5 - 5.0 g/dL [facility] Alkaline Phosphatase 110 39 - 117 U/L [facility] 12/29/2024 4:18 PM EDT 12/29/2024 4:22 PM EDT us Generic External Data Provider LAB BLOOD ORDERAB LES Final Result [facility] [address] [place] [phone] * (ABNORMAL) Basic Metabolic Panel (12/29/2024 4:18 PM EDT) Only the most recent of4 resultswithin the time period is included. Sodium 131(L) 135 - 145 mmol/L [facility] Potassium 4.6 3.3 - 5.1 mmol/L [facility] Comment:Slight Hemolysis.Int erpret result with caution. Chloride 112(H) 96 - 108 mmol/L [facility] Carbon Dioxide 8(LL) 22 - 29 mmol/L [facility] Comment:Critical value for t est(s): BIC Results called to and readback by:JEROME Person calling: ALKASABDate:12/29/2024Time:17:00. Anion Gap 16 12 - 20 [facility] Urea Nitrogen (BUN) 41(H) 9 - 16 mg/dL [facility] Creatinine, Serum 1.59(H) 0.5 - 1.4 mg/dL [facility] Creatinine Clr Calc Pharmacy 33.4 [facility] Comment:Provided height and weight: 165.1 cm,61.235 kg.eGFR (calculated from the MDRD study equation) and eCrCl(calculated from the Cockcroft-Gault equation) are based ondifferent parameters and may not yield comparable results.If eCrCl result is absurd, please check patient'sheight/weight. Estimated Glomerular Filt Rate 33 [facility] Comment:Chronic Kidney Disea se: Estimated GFR < 60 mL/min/1.46z7Mdtcjr Kidney Disease: Estimated GFR < 15 mL/min/1.73m2 Glucose 189(H) 60 - 115 mg/dL [facility] Calcium 8.0(L) 8.4 - 10.2 mg/dL [facility] 12/29/2024 4:18 PM EDT 12/29/2024 4:22 PM EDT us Generic External Data Provider LAB BLOOD ORDERAB LES Final Result [facility] [address] [place] [phone] * XR Chest 2 Views (12/29/2024 3:19 PM EDT) Anatomical Region Laterality Modality Chest Radiographic Cathi ging 12/29/2024 3:19 PM EDT Narrative 12/29/2024 3:20 PM EDT ? [facility] ?[address] ?[place] [address] ?XRay Report ? Signed ? Patient: Rita Page ?MR#: MM ?? [id number] ? : 1965 ?Acct:[id number] ? Age/Sex: 59 / F ?ADM Date: 12/29/24 ? Loc: HO.ED ? Attending Dr: ? Ordering Physician: Yasmeen De Dios NP ?? Date of Service: 12/29/24 ?? Procedure(s): XR chest 2V ?? Accession Number(s): [id number] ? cc: Name,Nolan PADILLA; Yasmeen De Dios NP ? CLINICAL HISTORY: COUGH ? 2 view chest x-ray ? Comparison: CR - XR CHEST 1V - 12/29/24 08:40 EDT ? Findings: ?? There is mild prominence of central lung markings and mild thickening of ?? the fissures. There is no consolidation or pleural effusion. ?? Borderline heart size. ?? No acute fracture. ? There is gaseous distention of bowel within the visualized abdomen. ? IMPRESSION: ?? Mild prominence of central lung markings and mild fissural thickening. ?? Could consider a mild degree of interstitial edema or interstitial ?? infiltrates. ? This document has been electronically signed by: Estee Oden MD on ?? 12/29/2024 15:19:05 ? Dictated By: ?Estee Oden MD ? Signed By: ?<Electronically signed by Estee Oden MD in OV> ? 12/29/249 ? DD/ 1519 ? TD/TT: 12/29/249 ? International Student Advisor: ? Procedure Note Donotuseinterpreter, Image - 12/29/[address] [address] XRay Report Signed Patient: Magnolia Page#: [id number] : 1965Acct:[id number] Age/Sex: 59 / FADM Date: 12/29/24 Loc: HO.ED Attending Dr: Ordering Physician: Yasmeen De Dios NP Date of Service: 12/29/24 Procedure(s): XR chest 2V Accession Number(s): [id number] cc: Name,Nolan PADILLA; Yasmeen De Dios NP CLINICAL HISTORY: COUGH 2 view chest x-ray Comparison: CR - XR CHEST 1V - 12/29/24 08:40 EDT Findings: There is mild prominence of central lung markings and mild thickening of the fissures. There is no consolidation or pleural effusion. Borderline heart size. No acute fracture. There is gaseous distention of bowel within the visualized abdomen. IMPRESSION: Mild prominence of central lung markings and mild fissural thickening. Could consider a mild degree of interstitial edema or interstitial infiltrates. This document has been electronically signed by: Estee Oden MD on 12/29/2024 15:19:05 Dictated By: Estee Oden MD Signed By: <Electronically signed by Estee Oden MD in OV> 12/29/24 1519 DD/ TD/TT: 12/29/24 1519 International Student Advisor: [facility] External Provider IMG XR PROCEDURES Final Result * (ABNORMAL) Lactic Acid (12/29/2024 1:31 PM EDT) Only the most recent of2 resultswithin the time period is included. Lactic Acid 3.7(HH) 0.5 - 2.0 mmol/L [facility] Comment:Critical value for L ACTIC: Results called to and read claudia:IZABEL ROME calling: Date: 12-29-24 Time:1358 12/29/2024 1:31 PM EDT 12/29/2024 1:36 PM EDT us Generic External Data Provider LAB BLOOD ORDERAB LES Final Result [facility] [address] [place] [address] [phone] * CT Cervical Spine w/o Contrast (12/29/2024 10:59 AM EDT) Anatomical Region Laterality Modality Spine, C-spine Computed Tomogra phy 12/29/2024 10:5 9 AM EDT Narrative 12/29/2024 11:01 AM EDT ? [facility] ?[address] ?[place] [address] ? CT Scan Report ? Signed ? Patient: Rita Page ?MR#: MM ?? [id number] ? : 1965 ?Acct:[id number] ? Age/Sex: 59 / F ?ADM Date: 12/29/24 ? Loc: HO.ED ? Attending Dr: ? Ordering Physician: Yasmeen De Dios NP ?? Date of Service: 12/29/24 ?? Procedure(s): CT cervical spine wo IV con ?? Accession Number(s): [id number] ? cc: Name,Nolan PADILLA; Yasmeen De Dios NP ? Report Number: ?? [id number]: Total DLP = ?0.00 mGy-cm ? CLINICAL HISTORY: multiple falls ? CT cervical spine without intravenous contrast ? Comparison: None ? Findings: ? Craniocervical junction: No occipital condylar fractures. No evidence of ?? atlantooccipital dissociation. The anterior and posterior arch and lateral ?? masses of C1 are intact. Odontoid and atlanto-dental interval intact. The ?? pars interarticularis of C2 is intact. ? This exam was subject to excessive motion subtle fractures may be obscured ?? no definite acute compression fractures. There is normal cervical ?? alignment. No locked or perched facets. No spinous process fractures. ? Lordotic curvature is preserved. The retropharyngeal soft tissues are not ?? widened. ? Segmental analysis as below (MR is more accurate in the evaluation of disc ?? herniation and central canal pathology): ? C2-C3: No herniation or stenosis. ?? C3-C4: No herniation or stenosis. ?? C4-C5: Degenerative facet hypertrophy on the left ?? C5-C6: Degenerative facet hypertrophy on the left ?? C6-C7: No herniation or stenosis. ?? C7-T1: No herniation or stenosis. ? The bones are without evidence of lytic or blastic lesion. 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 Impression: ?? 1. This exam was subject to excessive motion subtle fractures may be ?? obscured. Degenerative spondylosis without listhesis. Mild loss of ?? vertebral body height T4 vertebral body probably chronic ? This document has been electronically signed by: Umer Waters MD on ?? 12/29/2024 10:59:36 ? Dictated By: ?Umer Waters MD ? Signed By: ?<Electronically signed by Umer Waters MD in OV> ?12/29/24 1101 ? DD/ 1059 ? TD/TT: 12/29/24 1059 ? International Student Advisor: ? Procedure Note Ronak, Kaveh - 12/29/[address] [place] [address] [address] Scan Report Signed Patient: Magnolia Page#: [id number] : 1965Acct:[id number] Age/Sex: 59 / FADM Date: 12/29/24 Loc: HO.ED Attending Dr: Ordering Physician: Yasmeen De Dios NP Date of Service: 12/29/24 Procedure(s): CT cervical spine wo IV con Accession Number(s): [id number] cc: Name,Nolan PADILLA; Yasmeen De Dios NP Report Number: [id number]: Total DLP = 0.00 mGy-cm CLINICAL HISTORY: multiple falls CT cervical spine without intravenous contrast Comparison: None Findings: Craniocervical junction: No occipital condylar fractures. No evidence of atlantooccipital dissociation. The anterior and posterior arch and lateral masses of C1 are intact. Odontoid and atlanto-dental interval intact. The pars interarticularis of C2 is intact. This exam was subject to excessive motion subtle fractures may be obscured no definite acute compression fractures. There is normal cervical alignment. No locked or perched facets. No spinous process fractures. Lordotic curvature is preserved. The retropharyngeal soft tissues are not widened. Segmental analysis as below (MR is more accurate in the evaluation of disc herniation and central canal pathology): C2-C3: No herniation or stenosis. C3-C4: No herniation or stenosis. C4-C5: Degenerative facet hypertrophy on the left C5-C6: Degenerative facet hypertrophy on the left C6-C7: No herniation or stenosis. C7-T1: No herniation or stenosis. The bones are without evidence of lytic or blastic lesion. Biapical interstitial disease Impression: 1. This exam was subject to excessive motion subtle fractures may be obscured. Degenerative spondylosis without listhesis. Mild loss of vertebral body height T4 vertebral body probably chronic This document has been electronically signed by: Umer Waters MD on 12/29/2024 10:59:36 Dictated By: Umer Waters MD Signed By: <Electronically signed by Umer Waters MD in OV> 12/29/24 1101 DD/ 1059 TD/TT: 12/29/24 1059 International Student Advisor: [facility] External Provider IMG CT PROCEDURES Edited Result - Final * CT Abdomen Pelvis w/o Contrast (12/29/2024 10:28 AM EDT) Anatomical Region Laterality Modality Body, Pelvis, Abdomen Computed T omography 12/29/2024 10:2 8 AM EDT Narrative 12/29/2024 10:30 AM EDT ? [facility] ?[address] ?[place] [address] ? CT Scan Report ? Signed ? Patient: Nazia Pageicita ?MR#: MM ?? [id number] ? : 1965 ?Acct:[id number] ? Age/Sex: 59 / F ?ADM Date: 04/20/25 ? Loc: HO.ED ? Attending Dr: ? Ordering Physician: Yasmeen De Dios NP ?? Date of Service: 12/29/24 ?? Procedure(s): CT abdomen pelvis wo IV con ?? Accession Number(s): [id number] ? cc: Name,Nolan PADILLA; Yasmeen De Dios NP ? Report Number: ?? [id number]: Total DLP = ??955.00 mGy-cm ? CLINICAL HISTORY: abd tenderness, distention ? CT abdomen and pelvis without IV or oral contrast ? Comparison: None ? Findings: ?? Lung bases show no active disease. No dependent layering pleural ?? effusions. Small pericardial effusion. Sliding hiatal hernia. ? No stones are identified in the kidneys, ureters or bladder. There is no ?? hydronephrosis or perinephric stranding/fluid. Decompressed urinary ?? bladder. ? Evaluation of the liver, spleen, adrenal glands and pancreas demonstrates ?? no lesions. Mild hepatomegaly. No splenomegaly. It should be noted that ?? isodense masses may be obscured in the absence of intravenous contrast. No ?? radiopaque gallstones. Heavy stool burden with fecal impaction. No ?? pathologically enlarged lymph nodes. No ascites demonstrated. ?? Postmenopausal uterine atrophy. ? No vertebral body compression fractures or spondylolisthesis. No bony ?? destructive lesions. ? Impression: ?? 1. No obstructing calculus. Mild pelvicaliectasis bilaterally. ?? Decompressed urinary bladder. ?? 2. Mild diffuse fecal impaction particularly in the distal colon. ? This document has been electronically signed by: Umer Waters MD on ?? 12/29/2024 10:28:32 ? Dictated By: ?Umer Waters MD ? Signed By: ?<Electronically signed by Umer Waters MD in OV> ?12/29/24 1029 ? DD/ 1028 ? TD/TT: 12/29/24 1028 ? International Student Advisor: ? Procedure Note Kaveh Simons - 12/29/[address] [address] [address] Scan Report Signed Patient: Lili PageDanay#: [id number] : 1965Acct:[id number] Age/Sex: 59 / FADM Date: 12/29/24 Loc: HO.ED Attending Dr: Ordering Physician: Yasmeen De Dios NP Date of Service: 12/29/24 Procedure(s): CT abdomen pelvis wo IV con Accession Number(s): [id number] cc: Nolan Blevins MD; Yasmeen De Dios NP Report Number: [id number]: Total DLP = 955.00 mGy-cm CLINICAL HISTORY: abd tenderness, distention CT abdomen and pelvis without IV or oral contrast Comparison: None Findings: Lung bases show no active disease. No dependent layering pleural effusions. Small pericardial effusion. Sliding hiatal hernia. No stones are identified in the kidneys, ureters or bladder. There is no hydronephrosis or perinephric stranding/fluid. Decompressed urinary bladder. Evaluation of the liver, spleen, adrenal glands and pancreas demonstrates no lesions. Mild hepatomegaly. No splenomegaly. It should be noted that isodense masses may be obscured in the absence of intravenous contrast. No radiopaque gallstones. Heavy stool burden with fecal impaction. No pathologically enlarged lymph nodes. No ascites demonstrated. Postmenopausal uterine atrophy. No vertebral body compression fractures or spondylolisthesis. No bony destructive lesions. Impression: 1. No obstructing calculus. Mild pelvicaliectasis bilaterally. Decompressed urinary bladder. 2. Mild diffuse fecal impaction particularly in the distal colon. This document has been electronically signed by: Umer Waters MD on 12/29/2024 10:28:32 Dictated By: Umer Waters MD Signed By: <Electronically signed by Uemr Waters MD in OV> 12/29/24 1029 DD/ 1028 TD/TT: 12/29/24 1028 International Student Advisor: [facility] External Provider IMG CT PROCEDURES Edited Result - Final * CT Head Stroke w/o Contrast (12/29/2024 9:23 AM EDT) Anatomical Region Laterality Modality Computed Tomogra phy 12/29/2024 9:23 AM EDT Narrative 12/29/2024 9:24 AM EDT ? [facility] ?[address] ?[place] [address] ? CT Scan Report ? Signed with Addenda ? Patient: Rita Page ?MR#: MM ?? [id number] ? : 1965 ?Acct:[id number] ? Age/Sex: 59 / F ?ADM Date: 12/29/24 ? Loc: HO.ED ? Attending Dr: ? Ordering Physician: Yasmeen De Dios NP ?? Date of Service: 12/29/24 ?? Procedure(s): CT head for STROKE ?? Accession Number(s): [id number] ? cc: Nolan Blevins MD; Yasmeen De Dios NP ? Report Number: ?? [id number]: Total DLP = ??642.00 mGy-cm ?ADDENDUM ?? This document has been electronically signed by: Umer Waters MD on ?? 12/29/2024 09:23:13 ? ADDENDUM: ?? This report was discussed with Lanre Arana NP on Dec 29, 2024 ?? 09:27:00 EDT. ? This document has been electronically signed by: Vita Parisi on ?? 12/29/2024 09:28:06 ? Addendum Dictated By: ?Umer Waters MD ? Addendum Signed By: ? <Electronically signed by Umer Waters MD in OV> ?12/29/24927 ?? Addendum Cosigned By: ? DD/ ? TD/TT: 12/29/24 ? CLINICAL HISTORY: Stroke Protocol, weakness ? CT of the head without intravenous contrast ? Comparison: None ? Findings: ?? The ventricles and sulci are prominent, consistent with generalized ?? cerebral parenchymal volume loss. The ventricles are symmetric and the ?? basilar cisterns are intact. Mild periventricular, deep and subcortical ?? white matter hypodensities are nonspecific but statistically reflect the ?? sequela of chronic small vessel ischemic change. No intracranial ?? hemorrhage, extra-axial fluid collection, midline shift or mass-effect is ?? evident. No evidence of acute large vessel or territorial ischemia. ?? Brainstem and cerebellum unremarkable. Vascular calcifications indicate ?? intracranial atherosclerosis. ? The imaged portion of the paranasal sinuses are clear. No mastoid ?? effusions are demonstrated. The orbital contents are unremarkable. ? Calvarium is intact. ? Impression: ?? 1. No CT evidence of acute intracranial abnormality. ?? 2. Cerebral volume loss, intracranial atherosclerotic disease and mild ?? sequela of chronic small vessel ischemic disease. ? This document has been electronically signed by: Umer Waters MD on ?? 12/29/2024 09:23:13 ? Dictated By: ?Umer Waters MD ? Signed By: ?<Electronically signed by Umer Waters MD in OV> ?12/29/24922 ? DD/ 2 ? TD/TT: 12/29/24922 ? International Student Advisor: ? Procedure Note Donrandolphter, Image - 12/29/[address] [address] [address] Scan Report Signed with Addenda Patient: Carlos Eduardo PageR#: [id number] : 1965Acct:[id number] Age/Sex: 59 / FADM Date: 12/29/24 Loc: HO.ED Attending Dr: Ordering Physician: Yasmeen De Dios NP Date of Service: 12/29/24 Procedure(s): CT head for STROKE Accession Number(s): [id number] cc: Name,Nolan PADILLA; Yasmeen De Dios NP Report Number: [id number]: Total DLP = 642.00 mGy-cm ADDENDUM This document has been electronically signed by: Umer Waters MD on 12/29/2024 09:23:13 ADDENDUM: This report was discussed with Lanre Arana NP on Dec 29, 2024 09:27:00 EDT. This document has been electronically signed by: Vita Parisi on 12/29/2024 09:28:06 Addendum Dictated By: Umer Waters MD Addendum Signed By: <Electronically signed by Umer Waters MD in OV> 12/29/24927 Addendum Cosigned By: DD/ TD/TT: 12/29/24 CLINICAL HISTORY: Stroke Protocol, weakness CT of the head without intravenous contrast Comparison: None Findings: The ventricles and sulci are prominent, consistent with generalized cerebral parenchymal volume loss. The ventricles are symmetric and the basilar cisterns are intact. Mild periventricular, deep and subcortical white matter hypodensities are nonspecific but statistically reflect the sequela of chronic small vessel ischemic change. No intracranial hemorrhage, extra-axial fluid collection, midline shift or mass-effect is evident. No evidence of acute large vessel or territorial ischemia. Brainstem and cerebellum unremarkable. Vascular calcifications indicate intracranial atherosclerosis. The imaged portion of the paranasal sinuses are clear. No mastoid effusions are demonstrated. The orbital contents are unremarkable. Calvarium is intact. Impression: 1. No CT evidence of acute intracranial abnormality. 2. Cerebral volume loss, intracranial atherosclerotic disease and mild sequela of chronic small vessel ischemic disease. This document has been electronically signed by: Umer Waters MD on 12/29/2024 09:23:13 Dictated By: Umer Waters MD Signed By: <Electronically signed by Umer Waters MD in OV> 12/29/24922 DD/ 2 TD/TT: 12/29/24922 International Student Advisor: [facility] External Provider IMG CT PROCEDURES Edited Result - Final * Partial Thromboplastin Time, Activated (APTT) (12/29/2024 8:54 AM EDT) Partial Thromboplastin Time 35.3 26.0 - 36.8 [facility] Comment:For information rega rding the monitoring of direct thrombininhibitors, please refer to Pharmacy. 12/29/2024 8:5 4 AM EDT 12/29/2024 8:57 AM EDT Generic External Data Provider LAB BLOOD ORDERAB LES Final Result [facility] [address] [place] [phone] * (ABNORMAL) Prothrombin Time-INR (12/29/2024 8:53 AM EDT) Prothrombin Time 13.5(H) 10.9 - 12.4 [facility] INTERNATIONAL NORM RATIO 1.2(H) 0.9 - 1.1 [facility] Comment:INTERNATIONAL NORMAL IZED RATIO (INR) REFERENCE RANGES Reference RangeFor patients not on anticoagulant therapy: 0.9 - 1.1INR ranges for oral anticoagulanttherapy:For prevention and treatment of venous thrombosis and pulmonary embolism: 2.0 - 3.0For acute myocardial infarction with aspirin therapy: 2.0 - 3.0For acute myocardial infarction without aspirin therapy: 3.0 - 4.0For patients with mechanical prosthetic heart valves: 2.5 - 3.5 12/29/2024 8:53 AM EDT 12/29/2024 8:57 AM EDT Generic External Data Provider LAB BLOOD ORDERAB LES Final Result Performing Organization Address [facility] Co de Phone Number [facility] [address] [place] [phone] * (ABNORMAL) Lactic Acid (12/29/2024 8:47 AM EDT) Lactic Acid 3.7(HH) 0.5 - 2.0 mmol/L [facility] Comment:Critical value for L ACTIC: Results called to and read claudia: IZABEL Person calling: SARAKIPerfecto Date: 12-29-24 Time: 09 12/29/2024 8:47 AM EDT 12/29/2024 8:50 AM EDT Generic External Data Provider LAB BLOOD ORDERAB LES Final Result Performing Organization Address [facility] Co de Phone Number [facility] [address] [place] [phone] * High Sensitivity Troponin I (12/29/2024 8:46 AM EDT) TROPONIN I HIGH SENSITIVITY <2.7 <3.5 - 17.0 ng/L [facility] Comment:The [place] high sens itivity Troponin-I results should beused in conjunction with other diagnostic information suchas ECG, clinical observations and information, and patientsymptoms to aid in the diagnosis of [place]. 12/29/2024 8:46 AM EDT 12/29/2024 8:50 AM EDT us Generic External Data Provider LAB BLOOD ORDERAB LES Final Result [facility] [address] [place] [phone] * (ABNORMAL) CBC auto differential (12/29/2024 8:46 AM EDT) White Blood Count 20.9(H) 4.8 - 10.8 X10*3/uL [facility] Red Blood Count 3.83(L) 4.20 - 5.50 X10*6/uL [facility] Hemoglobin 11.1(L) 12.0 - 16.0 g/dl [facility] Hematocrit 33.6(L) 37.0 - 47.0 % [facility] Mean Corpuscular Volume 87.7 80.0 - 98.0 fL [facility] Mean Corpuscular Hemoglobin 29.0 27.0 - 33.0 pg [facility] Mean Corpuscular HGB Conc 33.0 31.0 - 35.0 g/dl [facility] Red Cell Distribution Width 14.9 11.0 - 16.0 % [facility] Platelet Count 406(H) 160 - 400 X10*3/uL [facility] Mean Platelet Volume 10.2 9.4 - 12.3 fL [facility] Neutrophils Percent Auto 87.7(H) 45 - 73 % [facility] Imm Gran Pct Auto 0.6(H) 0.0 - 0.4 % [facility] Lymphocytes Percent Auto 5.2(L) 20 - 40 % [facility] Monocytes Percent Auto 5.8 2 - 11 % [facility] Eosinophils Percent Auto 0.5 0 - 4 % [facility] Basophils Percent Auto 0.2 0 - 2 % [facility] NRBC Pct Auto 0.0 0.0 - 0.2 /100WBC [facility] Neutrophils Absolute Auto 18.3(H) 2.0 - 8.3 x10*3/uL [facility] Imm Gran Abs Auto 0.13(H) 0.00 - 0.03 X10*3/uL [facility] Lymphocytes Absolute Auto 1.1(L) 1.2 - 4.9 X10*3/uL [facility] Monocytes Absolute Auto 1.2 0.1 - 1.2 X10*3/uL [facility] Eosinophils Absolute Auto 0.1 0.0 - 0.4 X10*3/uL [facility] Basophils Absolute Auto 0.0 0.0 - 0.2 X10*3/uL [facility] NRBC Abs Auto 0.000 0.0 - 0.012 X10*3/uL [facility] 12/29/2024 8:46 AM EDT 12/29/2024 8:50 AM EDT Generic External Data Provider LAB BLOOD ORDERAB LES Final Result Performing Organization Address City/[facility]/ZIP Co de Phone Number [facility] [address] [place] [phone] * Bilirubin, Total (12/29/2024 8:46 AM EDT) Pathologist [facility] Bilirubin, Total 0.5 0.0 - 1.0 mg/dL [facility] 12/29/2024 8:46 AM EDT 12/29/2024 8:50 AM EDT Generic External Data Provider LAB BLOOD ORDERAB LES Final Result Performing Organization Address City/[facility]/ZIP Co de Phone Number [facility] [address] [place] [phone] * Lipid Panel, Standard (12/29/2024 8:46 AM EDT) Triglycerides 96 <150 mg/dL [facility] Comment:Desirable Triglyceri de: less than 150 mg/dLBorderline High Triglyceride 150-199 mg/dLHigh Triglyceride: 200-499 mg/dLVery High Triglyceride: greater than or equal to 5OO mg/dL Cholesterol 142 <200 mg/dL [facility] Comment:Desirable Cholestero l: less than 200 mg/dLBorderline High Cholesterol: 200-239 mg/dLHigh Cholesterol: greater than 239 mg/dL LDL Cholesterol Calculated 78 <100 mg/dL [facility] Comment:Desirable LDL: less than 100 mg/dLNear Optimal/Above Optimal LDL: 110- 129 mg/dLBorderline High LDL: 130-159 mg/dLHigh LDL: 160-189 mg/dLVery High LDL: greater than or equal to 190 mg/dL HDL Cholesterol 45 >40 mg/dL [facility] Comment:Desirable HDL: great er than 40 mg/dL Note: This HDL assay may give artificially low results in patients with liver disease. 12/29/2024 8:46 AM EDT 12/29/2024 8:50 AM EDT us Generic External Data Provider LAB BLOOD ORDERAB LES Final Result [facility] [address] [place] [phone] * VITAMIN D 25-OH (D2 AND D3) (12/04/2024 10:00 AM EDT) Vitamin D, 25-OH, D2 21 ng/mL [facility] Comment:This test was develo ped and its analytical performancecharacteristics have been determined by [employer] [place], [place]. It hasnot been cleared or approved by the U.S. Food and DrugAdministration. This assay has been validated pursuantto the CLIA regulations and is used for clinicalpurposes.THIS TEST WAS PERFORMED AT:[employer] [place] [address]YUYUFFEROSALIND DENG MD,PHD Vitamin D, 25-OH, D3 12 ng/mL [facility] Comment:This test was develo ped and its analytical performancecharacteristics have been determined by [employer] [place], [place]. It hasnot been cleared or approved by the U.S. Food and DrugAdministration. This assay has been validated pursuantto the CLIA regulations and is used for clinicalpurposes. Vitamin D, 25-OH, Total 33 30 - 100 ng/mL [facility] Comment:Vitamin D, 25-Hydrox y reports [...] = 30 ng/mL.For additional information, please refer tohttp://education.Fliqz/faq/PQA931(This link is being provided for informational/educational purposes only.) 12/04/2024 10:0 0 AM EDT 12/04/2024 10:00 AM EDT us Generic External Data Provider LAB BLOOD ORDERAB LES Final Result [facility] [address] [place] [address] [phone] * Vitamin B12 (Cobalamin) and Folate Panel, Serum (12/04/2024 10:00 AM EDT) Vitamin B12 392 200 - 900 pg/mL [facility] Comment:NORMAL 200-900 PG/ML INDETERMINATE 160-199 PG/ML DEFICIENT < 160 PG/ML Folate 5.9 > or = 4.0 ng/mL [facility] Comment:Reference Values:> o r = 4.0 ng/mL< 4.0 ng/mL suggests folate deficiency Methotrexate, aminopterin and folinic acid(leucovorin) are chemotherapeutic agents whose molecularstructures are similar to folate; therefore, the Architectfolate assay cannot be used for patients using these drugs. 12/04/2024 10:0 0 AM EDT 12/04/2024 10:00 AM EDT Generic External Data Provider LAB BLOOD ORDERAB LES Final Result Performing Organization Address [facility] de Phone Number [facility] [address] [place] [address] [phone] * TSH with Reflex to Free T4 (12/04/2024 10:00 AM EDT) TSH reflex Free T4 1.37 0.32 - 4.0 uIU/mL [facility] 12/04/2024 10:0 0 AM EDT 12/04/2024 10:00 AM EDT Generic External Data Provider LAB BLOOD ORDERAB LES Final Result Performing Organization Address [facility] Number [facility] [address] [place] [address] [phone] * Tissue Transglutaminase Antibody, IgA (12/04/2024 10:00 AM EDT) Pathologist [facility] Transglutaminase IgA <1.0 U/mL [facility] Comment:Value Interpretation ----- <15.0 Antibody not detected> or = 15.0 Antibody detectedTHIS TEST WAS PERFORMED AT:[employer] [address] [phone] ALFREDO WORTHINGTON MD 12/04/2024 10:0 0 AM EDT 12/04/2024 10:00 AM EDT Generic External Data Provider LAB BLOOD ORDERAB LES Final Result Performing Organization Address [facility] de Phone Number [facility] [address] [place] [address] [phone] * Lipase (12/04/2024 10:00 AM EDT) Lipase 26 8 - 78 U/L [facility] 12/04/2024 10:0 0 AM EDT 12/04/2024 10:00 AM EDT Generic External Data Provider LAB BLOOD ORDERAB LES Final Result Performing Organization Address [facility] Co de Phone Number [facility] [address] [place] [phone] * (ABNORMAL) Hepatic Function Panel (12/04/2024 10:00 AM EDT) Bilirubin, Total 0.2 0.0 - 1.0 mg/dL [facility] Bilirubin, Direct <0.2 0.0 - 0.5 mg/dL [facility] Aspartate Amino Transferase 19 5 - 31 U/L [facility] Comment:Slight Hemolysis.Int erpret result with caution. Alanine Aminotransferase 11 0 - 31 U/L [facility] Total Protein 7.7 6.5 - 8.0 g/dL [facility] Albumin Level 4.0 3.5 - 5.0 g/dL [facility] Alkaline Phosphatase 196(H) 39 - 117 U/L [facility] 12/04/2024 10:0 0 AM EDT 12/04/2024 10:00 AM EDT Generic External Data Provider LAB BLOOD ORDERAB LES Final Result Performing Organization Address [facility] Co de Phone Number [facility] [address] [place] [phone] * (ABNORMAL) POCT HGB A1C (08/22/2024 10:00 AM EST) Hemoglobin A1C 9.7(A) 4.0 - 6.0 % QC Media Lot # [id number] Lot# Expiration Date 026 Blood 08/22/2024 10:0 0 AM EST Nolanravindra Blevins MD POINT OF CARE TEST ENTER/EDIT OR DERABLES Final Result * HEPATITIS C AB W/REFL TO HCV RNA, QN, PCR (11/13/2020 2:31 PM EST) HEPATITIS C ANTIBODY NON-REACT [place] NON-REACT [place] [facility] INDEX 0.01 <1.00 [facility] Comment: ?? HCV antibody was non-reactive. There is no laboratory ?? evidence of HCV infection. ?? In most cases, no further action is required. However, if recent HCV exposure is suspected, a test for HCV RNA (test code 74607) is suggested. ?? For additional information please refer to http://education.[employer]/faq/VEE54g5 (This link is being provided for informational/ educational purposes only.) ?? 11/13/2020 2:31 PM EST Stefany Griffiths MD HISTORICAL/NON ORDERABLE LABS Final Result [facility] [address] * DIGITAL BILATERAL SCREEN 1 (06/22/2018 [...] Eye Exam (04/20/2012) Eye Exam Normal Normal [facility] External Provider HEALTH MAINTENANCE Final Result from Last 3 Months or Most Recently Relevant to Health Maintenance Insurance [facility] C3 Care Teams Exchange Engineer Relationship Specialty Start Date End Date Name, MD Nolan [address] [place] [id number] PCP - General Family Medicine 06/13/18
--- OUTSIDE RECORDS SUMMARY | 2025-01-07 13:24 | XMS_ITS | Encounter Summary ---
Author Organization [email or web address] Address [address] [facility] [address] [place] [address] Care Team Providers Care Card Grinder Helper Name Role Phone Name, Nolan PADILLA Primary Care Provider [phone] Reason for Visit * Reason Comments Care Coordination C3CM/CHW STACIA Irizarry #2 initial outreach_lvm Encounter Details Date Type Department Care Team (Latest Contact Info) Description 01/06/2025 Patient Outreach [facility] [address] [place] [address] Name, MD Nolan [address] [place] [address] Care Coordination (C3CM/STACIA Gonsalves #2 initial outreach_lvm) Social History Tobacco Use Types Packs/Day Years [...] AM EDT documented as of this encounter Progress Notes * Courtney Liu - 01/06/2025 9:16 AM EDT CHW Courtney Liu, placed outbound call to patient to introduce [facility]. No answer at this time. CHW LVM introducing herself from [facility] CM Department with [facility]ureen[facility]ight[facility], department and direct contact number requesting call back. Will re-attempt to contact within 2 days. and address not confirmed. documented in this encounter Plan of Treatment Upcoming Encounters Date Type Department Care Team ([facility] st Contact Info) Description 01/10/2025 9:30 AM EDT Office Visit [facility] [address] [place] [id number] Name, MD Nolan [address] [place] [address] 03/07/2025 10:15 AM EDT Office Visit [facility] [address] [place] [address] NameNolan MD [address] [place] [address] documented as of this encounter Visit Diagnoses Not on filedocumented in this encounter Additional Health Concerns Assessment Noted Time PHQ-9 Depression Total Score: 7 04/18/20 23 10:20 AM EDT documented as of this encounter Care Teams Card Grinder Helper Relationship Specialty Start Date End Date Name, MD Nolan [address] [place] [address] PCP - General Family Medicine 06/13/18 documented as of this encounter
--- OUTSIDE RECORDS SUMMARY | 2025-01-07 13:24 | XMS_ITS | Encounter Summary ---
Author Organization [employer] Address [address] [facility] 7t [place] [address] Care Team Providers Care Spring Tier Name Role Phone Name, Nolan PADILLA Primary Care Provider [phone] Reason for Visit * Reason Comments Med Refill Encounter Details Date Type Department Care Team (Late st Contact Info) Description 08/23/2024 Refill [facility] [address] [place], [place] [phone] Name, MD Nolan [address] [facility] [address] Diabetic polyneuropathy associated with type 2 diabetes [...] Description 01/10/2025 9:30 AM EDT Office Visit [facility] [address] [place] [phone] NameNolan MD [address] [place] [address] 03/07/2025 10:15 AM EDT Office Visit [facility] [address] [place] [address] NameNloan MD [address] [place] [address] documented as of this encounter Visit Diagnoses Diagnosis Diabetic polyneuropathy associated with type 2 diabetes mellitus (CMS/HCC) documented in this encounter Additional Health Concerns Assessment Noted Time PHQ-9 Depression Total Score: 7 04/18/20 23 10:20 AM EDT documented as of this encounter Care Teams Spring Tier Relationship Specialty Start Date End Date NameNolan MD [address] [place] [address] PCP - General Family Medicine 06/13/18 documented as of this encounter
--- OUTSIDE RECORDS SUMMARY | 2025-01-07 13:24 | XMS_ITS | Encounter Summary ---
Author Organization [employer] Address [address] [facility] 7t [place] [address] Care Team Providers Care Medical Radiation Tech Name Role Phone Name, Nolan PADILLA Primary Care Provider [phone] Reason for Visit * Reason Comments Med Refill Encounter Details Date Type Department Care Team ([facility] st Contact Info) Description 08/23/2024 Refill [facility] [address] [place], [place] [phone] Justyna Manuel MD [address] [place], [place] [phone] Depression, unspecified depression type; Diabetes mellitus type [...] 9:30 AM EDT Office Visit [facility] [address] [place] [address] Name, MD Nolan [address] [place] [address] 03/07/2025 10:15 AM EDT Office Visit [facility] [address] [place] [place] [address] Name, MD Nolan [address] [place] [address] documented as of this encounter Visit Diagnoses Diagnosis Depression, unspecified depression type Diabetes mellitus type 2 in nonobese ([facility]) Type II or unspecified type diabetes mellitus without mention of complication, not stated as uncontrolled documented in this encounter Additional Health Concerns Assessment Noted Time PHQ-9 Depression Total Score: 7 04/18/20 23 10:20 AM EDT documented as of this encounter Care Teams Medical Radiation Tech Relationship Specialty Start Date End Date Name, MD Nolan [address] [place] [address] PCP - General Family Medicine 06/13/18 documented as of this encounter
--- OUTSIDE RECORDS SUMMARY | 2025-01-07 13:24 | XMS_ITS | Encounter Summary ---
Author Organization [employer] Address [address] [facility] 7t [place] [address] Care Team Providers Care Stone Mason Name Role Phone Name, Nolan PADILLA Primary Care Provider [phone] Encounter Details Date Type Department Care Team ([facility] st Contact Info) Description 01/03/2025 Patient Outreach [facility] [address] [place], [place] [phone] Name, MD Nolan [address] [place], [place] [phone] Social History Tobacco Use Types Packs/Day Years [...] Description 01/10/2025 9:30 AM EDT Office Visit [facility] [address] [place] [phone] NameNolan MD [address] [place] [address] 03/07/2025 10:15 AM EDT Office Visit [address] [address] Name, MD Nolan [address] [place] [address] documented as of this encounter Visit Diagnoses Not on filedocumented in this encounter Additional Health Concerns Assessment Noted Time PHQ-9 Depression Total Score: 7 04/18/20 23 10:20 AM EDT documented as of this encounter Care Teams Stone Mason Relationship Specialty Start Date End Date NameNolan MD [address] [place] [phone] PCP - General Family Medicine 06/13/18 documented as of this encounter
[2025-01-07 13:27] LABS: Dohle Bodies PRESENT
[2025-01-07 13:34] LABS: Bacteria Urine 2+ (None Seen); Hyaline Casts Urine 0-2 /LPF (0-2); Squamous Epithelial Cell Urine >20 /HPF (0-2); UACC Culture Trigger YES; WBC Urine 0-5 /HPF (0-5)
[2025-01-07] MEDS: Potassium Chloride/H20 10 MEQ/100 ML PIGGYBACK 100 MEQ IV ×4 (13:40→18:22)
[2025-01-07 14:35] LABS: CDiff Gene PCR NEGATIVE (Negative)
--- NOTE | 2025-01-07 14:55 | PC.NURSE ---
Patient difficult stick, tech and RN attempting multiple times to obtain cultures. Provider Dr. Taveras stating one set of cultures is okay.
[2025-01-07] MEDS: cefTRIAXone sodium 1 GM VIAL IVPUSH (15:06)
[2025-01-07 15:29] LABS: Lactic Acid 1.3 mmol/L (0.5-2.0)
[2025-01-07 15:47] LABS: Adenovirus F 40/41 Not Detected (Not Detect.); Astrovirus Not Detected (Not Detect.); Campylobacter Not Detected (Not Detect.); Cryptosporidium Not Detected (Not Detect.); Cyclospora cayetanensis Not Detected (Not Detect.); E. coli EAEC Not Detected (Not Detect.); E. coli EPEC Not Detected (Not Detect.); E. coli ETEC Not Detected (Not Detect.); E. coli STEC Not Detected (Not Detect.); Entamoeba histolytica Not Detected (Not Detect.); Giardia lamblia Not Detected (Not Detect.); Norovirus GI/GII Not Detected (Not Detect.); Plesiomonas shigelloides Not Detected (Not Detect.); Rotavirus A Not Detected (Not Detect.); Salmonella Not Detected (Not Detect.); Sapovirus Not Detected (Not Detect.); Shigella sp./EIEC Not Detected (Not Detect.); Vibrio Not Detected (Not Detect.); Vibrio Cholerae Not Detected (Not Detect.); Yersinia enterocolitica Not Detected (Not Detect.)
--- NOTE | 2025-01-07 16:08 | PC.NURSE ---
chaperoned dr oliva during a rectal exam, pt tolerated the procedure well
[2025-01-07 16:14] LABS: OBS Int Ctl Valid YES; OBS1 POSITIVE (NEGATIVE)
[2025-01-07] MEDS: 0.9 % Sodium Chloride 500 ML 999 ML IV (16:15)
--- NOTE | 2025-01-07 16:16 | P.HPHOSP_ITS ---
History of Present Illness Date of Service: 01/07/25 Chief Complaint: presyncope 59F PMH diabetes, hypertension, hyperlipidemia, peripheral neuropathy, CKD 3, gerd, presented with presycnope. patient was admitted [place] [facility] [place] 12[place]29/24- 01/02/25 for hypotension, uti, acidosis, likely dehydration due to diarrheal illness. patient was doing better, blood pressure high on discharge, restarted on bp meds, diarrhea had improved, acidosis resolved. on day of presentation was standing and stated she was feeling very weak, then eyes rolled back, almost passed out briefly, so called EMS, bp noted to be low. in ED labs significnat for NAGMA, hgb 7.1, potassium 2.9, low-normal bp. reports ongoing diarrhea. Review of Systems 2 Review of Systems: Yes all other systems are reviewed and are negative [facility] Medical History Dysphagia Anxiety disorder GERD (gastroesophageal reflux disease) Migraines Asthma On beta jordyn at home Elevated cholesterol HTN (hypertension) Smoker Diabetes Depression Heartburn Surgical History Hx of left knee surgery History of tubal ligation History of esophagogastroduodenoscopy (EGD) H/O colonoscopy Hx of cholecystectomy Social History Household Members: None Housing: Apartment Housing Other:: pt states she lives in an apartment at her daughter's house Do you presently have visiting nurse or other home services: Yes (daughter is pt's MORTGAGE CONSULTANT) Alcohol intake: former Comment: 1:1 sitter Patient Tobacco Use Status: Current everyday Tobacco user Tobacco use type: Cigarette Cigarettes Per Day: 5 Years Smoked: 15 Smoked in Last 30 Days: No e-Cigarette/Vaping Use: Never Used Second Hand Smoke Exposure: Yes Use of substances other than those prescribed or required for medical reasons: No Advance Directives: No Advance Directives Information Provided: Yes Do you have a plan to hurt others: No Plan service: No Current occupational status: disabled Meds Allergies Allergy/AdvReac Type Severity Reaction Status Date / Time iron Allergy Mild UNKNOWN Verified 01/07/25 10:58 Iodinated Contrast Media Allergy Unknown UNKNOWN Verified 01/07/25 10:58 [IV Dye, Iodine Containing] iodine [IODINE] Allergy Unknown RASH Verified 01/07/25 10:58 seafood Allergy Unknown Unknown Verified 01/07/25 10:58 Active Medications: Current Medications Acetaminophen (Acetaminophen 325 Mg Tablet) 650 mg PO Q6H PRN PRN Reason: Pain, Mild 1-3,fever,headache Calcium Carbonate (Calcium Carbonate 750 Mg Tab.Chew) 750 mg PO Q4H PRN PRN Reason: Heartburn Ceftriaxone Sodium (Ceftriaxone Sodium 1 Gm Vial) 1 gm IVPUSH Q24H [facility] Dextrose (Dextrose 50 % 25 Gm/50 Ml Syringe) 25 gm IVPUSH Q15M PRN; Protocol PRN Reason: per Hypoglycemia Standing Ord. Enoxaparin Sodium (Enoxaparin Sodium 40 Mg/0.4 Ml Syringe) 40 mg SUBCUT Q24H [facility] Glucose (Glucose Gel 15 Gm Gel..Gram.) 15 gm PO Q15M PRN; Protocol PRN Reason: per Hypoglycemia Standing Ord. Potassium Chloride (Potassium Chloride/H20) 10 meq in 100 mls @ 100 mls/hr IV Q1H [facility] Stop: 01/07/25 17:59 Insulin Human Lispro (Insulin Lispro 100 Unit/Ml 3 Ml Vial) 0 unit SUBCUT QIDACHS [facility]; Protocol Magnesium Hydroxide (Milk Of Magnesia 30 Ml Oral.Susp) 30 ml PO DAILY PRN PRN Reason: Constipation Melatonin (Melatonin 3 Mg Tablet) 6 mg PO BEDTIME PRN PRN Reason: Insomnia Sodium Bicarbonate (Sodium Bicarbonate 650 Mg Tablet) 650 mg PO TID [facility] Sodium Chloride (0.9 % Sodium Chloride Flush 3 Ml Syringe) 3 ml IVFLUSH QSHIFT [facility] Home Medications ?Medication ?Instructions ?Recorded ?Confirmed ?Last Taken ?Type aspirin 81 mg tablet,delayed 81 mg PO DAILY 04/21/22 12/30/24 05/19/23 History release atorvastatin 20 mg tablet 20 mg PO BEDTIME 04/21/22 12/30/24 05/19/23 History benztropine 0.5 mg tablet 0.5 mg PO BID 04/21/22 12/30/24 05/19/23 History fluoxetine 10 mg capsule 10 mg PO DAILY 04/21/22 12/30/24 05/19/23 History insulin syringe-needle U-100 0.5 #10 ea 04/21/22 12/26/24 Unknown History mL 30 gauge x 1/2 (UltiCare) metoprolol succinate 50 mg 50 mg PO DAILY 04/21/22 12/30/24 05/19/23 History tablet,extended release 24 hr mirtazapine 7.5 mg tablet 7.5 mg PO BEDTIME 04/21/22 12/30/24 05/19/23 History haloperidol 5 mg tablet 1 tab PO BID 05/06/22 12/30/24 05/19/23 History prazosin 2 mg capsule 4 mg PO BEDTIME 05/20/23 12/30/24 05/19/23 History gabapentin 100 mg capsule 100 mg PO BEDTIME 05/30/24 12/30/24 Unknown History insulin glargine 100 unit/mL (3 10 unit subcut DAILY 08/27/24 12/30/24 Unknown History mL) subcutaneous pen (Lantus Solostar U-100 Insulin) dulaglutide 0.75 mg/0.5 mL 0.75 mg subcut SA 11/14/24 12/30/24 Unknown History subcutaneous pen injector (Trulicity) blood sugar diagnostic (FreeStyle #10 ea 12/04/24 12/26/24 Unknown History Lite Strips) lancets 33 gauge (TRUEplus Lancets) #100 ea 12/04/24 12/26/24 Unknown History pen needle, diabetic 31 gauge x #100 ea 12/04/24 12/26/24 Unknown History 1/4 (Easy Touch) esomeprazole magnesium 40 mg 40 mg PO DAILY@0630 12/30/24 12/30/24 Unknown History capsule,delayed release (Nexium) prazosin 2 mg capsule 2 mg PO DAILY 12/30/24 12/30/24 Unknown History sennosides 8.6 mg tablet (Natural 17.2 mg PO BEDTIME PRN constipation 12/30/24 12/30/24 Unknown History Senna Laxative) Physical Exam 2 Vital Signs and Narrative: Vital Signs: Last Vital Signs Temp 98.1 F 01/07/25 15:07 Pulse 59 01/07/25 15:07 Resp 14 01/07/25 15:07 BP 101/48 L 01/07/25 15:07 Pulse Ox 97 01/07/25 15:07 O2 Del Method Room Air 01/07/25 15:07 BMI result Body Mass Index 29.3 General: AO X 3, no acute distress Resp: CTA bilateral, no accessory muscles used CVS: S1,S2,RRR GI: soft, non tender, non distended Neuro: motor grossly intact, alert Psych: appropriate affect, appropriate insight Results Labs 01/07/25 11:24 01/07/25 11:24 Labs: Laboratory Results - last 24 hr 01/07/25 01/07/25 01/07/25 11:23 11:24 12:53 MCV 82.7 MCH 28.0 MCHC 33.8 RDW 15.6 Plt Count 422 H MPV 8.8 L Immature Gran % (Auto) Cancelled Neut % (Auto) Cancelled Lymph % (Auto) Cancelled [place] % (Auto) Cancelled Eos % (Auto) Cancelled Baso % (Auto) Cancelled Lymph # (Auto) Cancelled [place] # (Auto) Cancelled Eos # (Auto) Cancelled Baso # (Auto) Cancelled Abs Immat Gran (auto) Cancelled Absolute Neuts (auto) Cancelled Absolute Nucleated RBC 0.000 Nucleated RBC % (auto) 0.0 Neutrophils % (Manual) 68 Band Neutrophils % 8 H Lymphocytes % (Manual) 10 L Atypical Lymphs % (Man) 2 Monocytes % (Manual) 12 H Abs Neuts (Manual) 6.1 Lymphocytes # (Manual) 0.8 L Atyp Lymphs # (Manual) 0.2 Monocytes # (Manual) 1.0 Toxic Vacuolation PRESENT Dohle Bodies PRESENT Chilo Rods TNP Platelet Estimate SLIGHTLY INCREASED Plt Morphology Comment NORMAL RBC Morphology NOTED Macrocytosis 1+ (5-14) Acanthocytes (Spur) 2+ (3-5) PT 15.3 H INR 1.3 H VBG pH VBG pCO2 VBG pO2 VBG HCO3 VBG O2 Saturation VBG Base Excess Anion Gap 10 L Estim Creat Clear Calc 52.4 Estimated GFR 53 Random Glucose 144 H Lactic Acid Calcium 7.0 L D Magnesium 1.6 Total Bilirubin 0.4 AST 21 ALT < 6 Alkaline Phosphatase 100 B-Natriuretic Peptide 288 H Total Protein 4.4 L Albumin 2.1 L Urine Color Dark Yellow Urine Appearance Cloudy Urine pH 5.5 Ur Specific [place] 1.015 Urine Protein 30 (1+) H Urine Glucose (UA) 500 H Urine Ketones Trace Urine Blood Small (1+) H Urine Nitrite Negative Ur Leukocyte Esterase Large (3+) H Urine RBC 3-5 H Urine WBC 0-5 Ur Squamous Epith Cells >20 Urine Bacteria 2+ Hyaline Casts 0-2 Stool Occult Blood Stl C. cayetanensis PCR Not Detected Stool Rotavirus A PCR Not Detected Stl Adenov F 40/41 PCR Not Detected Stool Astrovirus (PCR) Not Detected Stool Campylobacter PCR Not Detected Stool Cryptosporidium PCR Not Detected Stl Sh Tox Pr E STEC PCR Not Detected Stool E coli O157 PCR Not applicable Stl Enterotoxigenic E PCR Not Detected Stool EPEC (PCR) Not Detected Stool EAEC (PCR) Not Detected Stl E. histolytica PCR Not Detected Stool Giardia Lamblia PCR Not Detected Stl P. shigelloides PCR Not Detected Stool Salmonella PCR Not Detected Stool Sapovirus (PCR) Not Detected Stl Shigella/EIEC PCR Not Detected St Y.enterocolitica PCR Not Detected Stool Vibrio (PCR) Not Detected Stl Vibrio cholerae PCR Not Detected Stl Norovirus GI/GII PCR Not Detected C. difficile Tox B Gene Influenza Type A (PCR) NEGATIVE Influenza Type B (PCR) NEGATIVE RSV RNA Qual (PCR) NEGATIVE SARS-CoV-2 RNA (RT-PCR) NEGATIVE Blood Type B Positive Antibody Screen NEGATIVE Crossmatch See Detail 01/07/25 01/07/25 01/07/25 12:54 13:00 15:04 MCV MCH MCHC RDW Plt Count MPV Immature Gran % (Auto) Neut % (Auto) Lymph % (Auto) [place] % (Auto) Eos % (Auto) Baso % (Auto) Lymph # (Auto) [place] # (Auto) Eos # (Auto) Baso # (Auto) Abs Immat Gran (auto) Absolute Neuts (auto) Absolute Nucleated RBC Nucleated RBC % (auto) Neutrophils % (Manual) Band Neutrophils % Lymphocytes % (Manual) Atypical Lymphs % (Man) Monocytes % (Manual) Abs Neuts (Manual) Lymphocytes # (Manual) Atyp Lymphs # (Manual) Monocytes # (Manual) Toxic Vacuolation Dohle Bodies Chilo Rods Platelet Estimate Plt Morphology Comment RBC Morphology Macrocytosis Acanthocytes (Spur) PT INR VBG pH 7.37 VBG pCO2 32 VBG pO2 62 VBG HCO3 19 L VBG O2 Saturation TNP VBG Base Excess -5.3 Anion Gap Estim Creat Clear Calc Estimated GFR Random Glucose Lactic Acid 1.3 Calcium Magnesium Total Bilirubin AST ALT Alkaline Phosphatase B-Natriuretic Peptide Total Protein Albumin Urine Color Urine Appearance Urine pH Ur Specific [place] Urine Protein Urine Glucose (UA) Urine Ketones Urine Blood Urine Nitrite Ur Leukocyte Esterase Urine RBC Urine WBC Ur Squamous Epith Cells Urine Bacteria Hyaline Casts Stool Occult Blood Stl C. cayetanensis PCR Stool Rotavirus A PCR Stl Adenov PCR Stool Astrovirus (PCR) Stool Campylobacter PCR Stool Cryptosporidium PCR Stl Sh Tox Pr E STEC PCR Stool E coli O157 PCR Stl Enterotoxigenic E PCR Stool EPEC (PCR) Stool EAEC (PCR) Stl E. histolytica PCR Stool Giardia Lamblia PCR Stl P. shigelloides PCR Stool Salmonella PCR Stool Sapovirus (PCR) Stl Shigella/EIEC PCR St Y.enterocolitica PCR Stool Vibrio (PCR) Stl Vibrio cholerae PCR Stl Norovirus GI/GII PCR C. difficile Tox B Gene NEGATIVE Influenza Type A (PCR) Influenza Type B (PCR) RSV RNA Qual (PCR) SARS-CoV-2 RNA (RT-PCR) Blood Type Antibody Screen Crossmatch 01/07/25 16:07 MCV MCH MCHC RDW Plt Count MPV Immature Gran % (Auto) Neut % (Auto) Lymph % (Auto) [place] % (Auto) Eos % (Auto) Baso % (Auto) Lymph # (Auto) [place] # (Auto) Eos # (Auto) Baso # (Auto) Abs Immat Gran (auto) Absolute Neuts (auto) Absolute Nucleated RBC Nucleated RBC % (auto) Neutrophils % (Manual) Band Neutrophils % Lymphocytes % (Manual) Atypical Lymphs % (Man) Monocytes % (Manual) Abs Neuts (Manual) Lymphocytes # (Manual) Atyp Lymphs # (Manual) Monocytes # (Manual) Toxic Vacuolation Dohle Bodies Chilo Rods Platelet Estimate Plt Morphology Comment RBC Morphology Macrocytosis Acanthocytes (Spur) PT INR VBG pH VBG pCO2 VBG pO2 VBG HCO3 VBG O2 Saturation VBG Base Excess Anion Gap Estim Creat Clear Calc Estimated GFR Random Glucose Lactic Acid Calcium Magnesium Total Bilirubin AST ALT Alkaline Phosphatase B-Natriuretic Peptide Total Protein Albumin Urine Color Urine Appearance Urine pH Ur Specific [place] Urine Protein Urine Glucose (UA) Urine Ketones Urine Blood Urine Nitrite Ur Leukocyte Esterase Urine RBC Urine WBC Ur Squamous Epith Cells Urine Bacteria Hyaline Casts Stool Occult Blood POSITIVE Stl C. cayetanensis PCR Stool Rotavirus A PCR Stl Adenov PCR Stool Astrovirus (PCR) Stool Campylobacter PCR Stool Cryptosporidium PCR Stl Sh Tox Pr E STEC PCR Stool E coli O157 PCR Stl Enterotoxigenic E PCR Stool EPEC (PCR) Stool EAEC (PCR) Stl E. histolytica PCR Stool Giardia Lamblia PCR Stl P. shigelloides PCR Stool Salmonella PCR Stool Sapovirus (PCR) Stl Shigella/EIEC PCR St Y.enterocolitica PCR Stool Vibrio (PCR) Stl Vibrio cholerae PCR Stl Norovirus GI/GII PCR C. difficile Tox B Gene Influenza Type A (PCR) Influenza Type B (PCR) RSV RNA Qual (PCR) SARS-CoV-2 RNA (RT-PCR) Blood Type Antibody Screen Crossmatch Imaging Radiologist's Impressions: Impressions Chest X-Ray 01/07/25 11:27 IMPRESSION: Mild interstitial lung edema in the correct clinical settings. Electronically signed by: Dung Wiggins MD 01/07/2025 12:22 PM EDT RP Cervical Spine CT 01/07/25 11:31 IMPRESSION: 1. No CT evidence of acute cervical spine fracture or injury. Electronically signed by: Sujit Calhoun MD 01/07/2025 01:58 PM EDT RP Head CT 01/07/25 13:04 IMPRESSION: 1. No acute intracranial abnormality. 2. Chronic findings as discussed. Electronically signed by: Sujit Calhoun MD 01/07/2025 01:53 PM EDT RP Assessment and Plan (1) Syncope: Status: Acute Plan 59F PMH diabetes, hypertension, hyperlipidemia, peripheral neuropathy, CKD 3, gerd, presented with presycnope Presyncope due to orthostatic hypotension with supine hypertension due to dehydration due to chronic diarrhea Given 2 L normal saline in ED, hold antihypertensives, monitor on tele stool studies negative gi eval check ct abd uti rocephin follow up culture recurrent NAGMA ? due to diarrhea oral bicarb check urine lytes - rule out RTA dm insulin acute hypokalemia replace and monitor acute anemia follow up iron studies, gi suspect inflammatory will transfuse 1 unit dvt prophylaxis - lovenox full code given degree of electrolyte abnormalities and ongoing diarrhea expected to require atleast 2 midnights inpatient Quality Stroke Does the patient have a stroke diagnosis?: No VTE Prior VTE?: No VTE Risk Level:: Medical - moderate - high VTE Device Contraindication: Treatment Not Indicated VTE Drug Contraindication: N/A - Med Ordered
[2025-01-07 16:30] LABS: Chloride Urine Random < 20.0 mmol/L; Potassium Urine Random 29.7 mmol/L
[2025-01-07 16:40] LABS: Iron < 7 mcg/dL (30-160); Percent Iron Saturation 6 % (15-50); Total Iron Binding Capacity 115 mcg/dL (228-428); Unsaturated Iron Binding 108 ug/dL
[2025-01-07 16:54] LABS: Ferritin 218 ng/mL (10-250)
[2025-01-07] MEDS: Potassium Chloride Packet 20 MEQ PACKET 40 MEQ PO (17:04)
[2025-01-07 17:42] LABS: Glucose, Whole Blood 118 mg/dL (60-115)
--- NOTE | 2025-01-07 18:34 | PHA.MEDREC ---
Addendum entered by Ortiz Jackson [facility] 01/07/25 19:22: med rec reviewed Original Note: Pharmacy Consult ? Medication Reconciliation Pharmacy has completed the medication reconciliation. Spoke with patients daughter and granddaughter at bedside who were able to confirm what medications the patient takes and also stated she was discharged from here 01/02. They stated the patient started taking the Cefuroxime but only took 2 pills before stopping it due to thinking it was causing constipation. They confirmed the patient stopped taking the Jardiance on his last discharge from here 01/02. They confirmed the Lantus and confirmed the patient takes 20 units of that daily. The daughter confirmed the patient has been taking her Prazosin 2mg tab only as needed for high blood pressure. The daughter also confirmed her moms Trulicity once a week on Saturdays but stated the patient has not had it since 12/28.
[2025-01-07 19:03] LABS: C Reactive Protein 20.65 mg/dL (< or = 0.50)
[2025-01-07] MEDS: metroNIDAZOLE/NS 500 MG/100 ML PIGGYBACK 100 MG IV (20:52)
[2025-01-07] MEDS: Mirtazapine 7.5 MG TABLET PO (20:53)
[2025-01-07] MEDS: Sodium Bicarbonate 650 MG TABLET PO (20:53)
[2025-01-07] MEDS: HaloperidoL 5 MG TABLET PO (20:54)
[2025-01-07] MEDS: Gabapentin 100 MG CAPSULE PO (20:54)
[2025-01-07 21:00] LABS: Glucose, Whole Blood 153 mg/dL (60-115)
[2025-01-07] MEDS: Insulin Lispro 100 UNIT/ML 3 ML VIAL SUBCUT (21:00)
[2025-01-08] VITALS (12 sets, daily range): BP systolic 106–143; BP diastolic 56–78; PULSE 80–99; RESP 16–20; TEMP 36.7–37.1; O2SAT 96–100; BMI 28.2
[2025-01-08] MEDS: 0.9 % Sodium Chloride Flush 3 ML SYRINGE IVFLUSH ×3 (00:51→16:14)
--- NOTE | 2025-01-08 02:17 | PC.NURSE ---
Addendum entered by Marilyn Ramirez 01/08/25 02:22: pt states she believes it is clonazepam, but is unsure as daughter administers her meds. agreeable to melatonin if unable to receive clonazepam. MD aware. Original Note: vitals as documented. commode emptied. bed noted to have poop streaks, bed linen changed. pt requesting medication to sleep. call ben[facility]z within reach.
[2025-01-08] MEDS: Melatonin 3 MG TABLET 6 MG PO (02:46)
[2025-01-08 04:53] LABS: Hematocrit 23.9 % (37.0-47.0); Hemoglobin 8.5 g/dl (12.0-16.0); Mean Corpuscular HGB Conc 35.6 g/dl (31.0-35.0); Mean Corpuscular Hemoglobin 29.3 pg (27.0-33.0); Mean Corpuscular Volume 82.4 fL (80.0-98.0); Platelet Count 500 X10*3/uL (160-400); Red Cell Distribution Width 15.2 % (11.0-16.0); White Blood Count 6.3 X10*3/uL (4.8-10.8)
[2025-01-08 05:15] LABS: Alanine Aminotransferase < 6 U/L (0-31); Anion Gap 12 (12-20); Aspartate Amino Transferase 12 U/L (5-31); Bilirubin Direct 0.2 mg/dL (0.0-0.5); Bilirubin Total 0.3 mg/dL (0.0-1.0); Blood Urea Nitrogen 20 mg/dL (9-16); Calcium 7.1 mg/dL (8.4-10.2); Carbon Dioxide 18 mmol/L (22-29); Chloride 110 mmol/L (96-108); Creatinine Clr Calc Pharmacy 64.1; Estimated Glomerular Filt Rate > 60; Glucose Random 93 mg/dL (60-115); Magnesium 2.2 mg/dL (1.6-2.6); Potassium 3.5 mmol/L (3.3-5.1); Sodium 136 mmol/L (135-145); Total Protein 4.4 g/dL (6.5-8.0)
[2025-01-08 05:29] LABS: Alkaline Phosphatase 99 U/L (39-117)
[2025-01-08 05:34] LABS: Erythrocyte Sedimentation Rate 12 MM/HR (0-20)
--- NOTE | 2025-01-08 06:51 | P.CNGI_ITS ---
History of Present Illness Data of Consult Service Date: 01/08/25 Primary Care Provider: Nolan Blevins MD HPI Reason for consult: diarrhea 59F PMH diabetes, hypertension, hyperlipidemia, peripheral neuropathy, CKD 3, gerd, who I am seeing for assessment for diarrhea. Patient initially admitted with pre syncope with dehydration, UTI, and NAGMA> she also notes recent abn bowle habits with fair appetite. She denies abdominal pain, nausea, vomiting, or blood in stool, melena. Denies sick contacts, no nsaid use or ingestion of bad food She had x 2 EGD 2021 with erosive esophagitis. Labs: hgb 7.1, potassium 2.9, CRP 20, alb low, iron sat low, ferritin nml baseline HGB around 10 g/dl c diff and stool PCR negative imaging: possible pneumatosis asc colon abdo wall edema Review of Systems 2 Review of Systems: Constitutional : No Weight loss, No Fever, No Chills ENT/Mouth : No sore throat, No Rhinorrhea Eyes: No Swelling, No Redness Cardiovascular : No Chest Pain, No SOB, No Edema Respiratory : No Cough, No Sputum, No Wheezing Gastrointestinal : see HPI Genitourinary : NO Dysuria, No Urinary Frequency, No Hematuria, No Urgency Musculoskeletal : no joint pain, No Myalgias, No Joint Swelling Skin : No Skin Lesions, No rash Neuro : No Weakness, No Numbness, No Dizziness, No Headache Psych : No Anxiety/Panic, No Depression Heme/Lymph: No Bruising, No Lymphadenopathy Endocrine : No Polyuria, No Polydipsia All other systems reviewed and are negative. [facility] Past Medical History Medical History Dysphagia Anxiety disorder GERD (gastroesophageal reflux disease) Migraines Asthma On beta jordyn at home Elevated cholesterol HTN (hypertension) Smoker Diabetes Depression Heartburn Family History Pertinent family history: no fh of crc Surgical History Surgical History Hx of left knee surgery History of tubal ligation History of esophagogastroduodenoscopy (EGD) H/O colonoscopy Hx of cholecystectomy Social History Social History Household Members: None Housing: Apartment Housing Other:: pt states she lives in an apartment at her daughter's house Do you presently have visiting nurse or other home services: Yes (daughter is pt's [employer]) Alcohol intake: former Comment: 1:1 sitter Patient Tobacco Use Status: Current everyday Tobacco user Tobacco use type: Cigarette Cigarettes Per Day: 5 Years Smoked: 15 Smoked in Last 30 Days: No e-Cigarette/Vaping Use: Never Used Second Hand Smoke Exposure: Yes Use of substances other than those prescribed or required for medical reasons: No Advance Directives: No Advance Directives Information Provided: Yes Do you have a plan to hurt others: No Plan service: No Current occupational status: disabled Meds Allergies Allergy/AdvReac Type Severity Reaction Status Date / Time iron Allergy Mild UNKNOWN Verified 01/07/25 10:58 Iodinated Contrast Media Allergy Unknown UNKNOWN Verified 01/07/25 10:58 [IV Dye, Iodine Containing] iodine [IODINE] Allergy Unknown RASH Verified 01/07/25 10:58 seafood Allergy Unknown Unknown Verified 01/07/25 10:58 Active Medications: Current Medications Acetaminophen (Acetaminophen 325 Mg Tablet) 650 mg PO Q6H PRN PRN Reason: Pain, Mild 1-3,fever,headache Calcium Carbonate (Calcium Carbonate 750 Mg Tab.Chew) 750 mg PO Q4H PRN PRN Reason: Heartburn Ceftriaxone Sodium (Ceftriaxone Sodium 1 Gm Vial) 1 gm IVPUSH Q24H [facility] Dextrose (Dextrose 50 % 25 Gm/50 Ml Syringe) 25 gm IVPUSH Q15M PRN; Protocol PRN Reason: per Hypoglycemia Standing Ord. Enoxaparin Sodium (Enoxaparin Sodium 40 Mg/0.4 Ml Syringe) 40 mg SUBCUT Q24H [facility] Fluoxetine HCl (Fluoxetine Hcl 10 Mg Capsule) 10 mg PO DAILY [facility] Gabapentin (Gabapentin 100 Mg Capsule) 100 mg PO BEDTIME [facility] Last Admin: 01/07/25 20:54 Dose: 100 mg Glucose (Glucose Gel 15 Gm Gel..Gram.) 15 gm PO Q15M PRN; Protocol PRN Reason: per Hypoglycemia Standing Ord. Haloperidol (Haloperidol 5 Mg Tablet) 5 mg PO BID [facility] Last Admin: 01/07/25 20:54 Dose: 5 mg Metronidazole (Flagyl) 500 mg in 100 mls @ 100 mls/hr IV Q12H [facility] Last Infusion: 01/07/25 21:52 Dose: Infused Insulin Human Lispro (Insulin Lispro 100 Unit/Ml 3 Ml Vial) 0 unit SUBCUT QIDACHS [facility]; Protocol Last Admin: 01/07/25 21:00 Dose: 2 unit Magnesium Hydroxide (Milk Of Magnesia 30 Ml Oral.Susp) 30 ml PO DAILY PRN PRN Reason: Constipation Melatonin (Melatonin 3 Mg Tablet) 6 mg PO BEDTIME PRN PRN Reason: Insomnia Last Admin: 01/08/25 02:46 Dose: 6 mg Metoprolol Succinate (Metoprolol Succinate Er 50 Mg Tab.Er.24h) 50 mg PO DAILY [facility]; Protocol Mirtazapine (Mirtazapine 7.5 Mg Tablet) 7.5 mg PO BEDTIME [facility] Last Admin: 01/07/25 20:53 Dose: 7.5 mg Sodium Bicarbonate (Sodium Bicarbonate 650 Mg Tablet) 650 mg PO TID [facility] Last Admin: 01/07/25 20:53 Dose: 650 mg Sodium Chloride (0.9 % Sodium Chloride Flush 3 Ml Syringe) 3 ml IVFLUSH QSHIFT [facility] Last Admin: 01/08/25 00:51 Dose: 3 ml Home Medications ?Medication ?Instructions ?Recorded ?Confirmed ?Last Taken ?Type aspirin 81 mg tablet,delayed 81 mg PO DAILY 04/21/22 01/07/25 01/07/25 History release atorvastatin 20 mg tablet 20 mg PO BEDTIME 04/21/22 01/07/25 01/06/25 History benztropine 0.5 mg tablet 0.5 mg PO BID 04/21/22 01/07/25 01/07/25 History fluoxetine 10 mg capsule 10 mg PO DAILY 04/21/22 01/07/25 01/07/25 History insulin syringe-needle U-100 0.5 #10 ea 04/21/22 12/26/24 Unknown History mL 30 gauge x 1/2 (UltiCare) metoprolol succinate 50 mg 50 mg PO DAILY 04/21/22 01/07/25 01/07/25 History tablet,extended release 24 hr mirtazapine 7.5 mg tablet 7.5 mg PO BEDTIME 04/21/22 01/07/25 01/06/25 History haloperidol 5 mg tablet 1 tab PO BID 05/06/22 01/07/25 01/07/25 History gabapentin 100 mg capsule 100 mg PO BEDTIME 05/30/24 01/07/25 01/06/25 History insulin glargine 100 unit/mL (3 20 unit subcut DAILY 08/27/24 01/07/25 01/07/25 History mL) subcutaneous pen (Lantus Solostar U-100 Insulin) dulaglutide 0.75 mg/0.5 mL 0.75 mg subcut SA 11/14/24 01/07/25 12/28/24 History subcutaneous pen injector (Trulicity) blood sugar diagnostic (FreeStyle #10 ea 12/04/24 12/26/24 Unknown History Lite Strips) lancets 33 gauge (TRUEplus Lancets) #100 ea 12/04/24 12/26/24 Unknown History pen needle, diabetic 31 gauge x #100 ea 12/04/24 12/26/24 Unknown History 1/4 (Easy Touch) esomeprazole magnesium 40 mg 40 mg PO DAILY@0630 12/30/24 01/07/25 01/07/25 History capsule,delayed release (Nexium) prazosin 2 mg capsule 2 mg PO BEDTIME PRN High Blood 12/30/24 01/07/25 Unknown History Pressure Physical Exam 2 Vital Signs: Vital Signs: Last Vital Signs Temp 98.2 F 01/08/25 02:16 Pulse 91 01/08/25 02:16 Resp 20 01/08/25 02:16 BP 143/78 H 01/08/25 02:16 Pulse Ox 96 01/08/25 02:16 O2 Del Method Room Air 01/08/25 02:16 BMI result Body Mass Index 29.3 EXAM: GENERAL: The patient is relaxed VITAL SIGNS:see workflow HEENT: Nonicteric sclerae, PERRLA, EOMI. Oropharynx clear. Moist mucous membranes. Conjunctivae appear well perfused. No thyroid mass. CHEST: Chest wall is nontender. HEART: Regular rate and rhythm without murmurs. LUNGS: Clear to auscultation bilaterally. ABDOMEN: Soft, positive bowel sounds, non tender, no organomegaly.no flank tenderness SKIN: No rash, no excessive bruising, petechiae, or purpura. NEUROLOGIC: Cranial nerves II-XII intact without motor/sensory deficit. Psych: normal affect Results Labs 01/08/25 04:26 01/08/25 04:26 Labs: Short CBC 01/07/25 01/08/25 Range/Units 11:24 04: WBC 8.0 6.3 (4.8-10.8) X10*3/uL Hgb 7.1 L 8.5 L (12.0-16.0) g/dl Hct 21.0 L* 23.9 L (37.0-47.0) % Plt Count 422 H 500 H (160-400) X10*3/uL BMP 01/07/25 01/08/25 11:24 04:26 Sodium 132 L 136 Potassium 2.9 L* 3.5 D Chloride 105 110 H Carbon Dioxide 20 L 18 L BUN 19 H 20 H Creatinine 1.05 0.86 Calcium 7.0 L D 7.1 L Liver Function 01/07/25 01/08/25 Range/Units 11:24 04:26 Total Bilirubin 0.4 0.3 (0.0-1.0) mg/dL Direct Bilirubin 0.2 (0.0-0.5) mg/dL AST 21 12 (5-31) U/L ALT < 6 < 6 (0-31) U/L Alkaline Phosphatase 100 99 (39-117) U/L Albumin 2.1 L 2.0 L (3.5-5.0) g/dL Urine 01/07/25 Range/Units 12:53 Urine Color Dark Yellow Urine Appearance Cloudy Urine pH 5.5 (5.0-9.0) Ur Specific [place] 1.015 (1.005-1.025) Urine Protein 30 (1+) H (Neg-Trace) mg/dL Urine Glucose (UA) 500 H (Negative) mg/dL Imaging CT scan - abdomen: Attestation: I personally reviewed and interpreted this imaging study as follows: (dilated transverse and descending colon) Assessment and Plan (1) Pneumatosis of intestines: Status: Acute Plan 1/ Abn bowel habit with pre syncope, low K and albumin, raised CRP, abn imaging of colo with possible pneumatosis, ddx: infectious colitis with gas forming organisms, microperf, protein losing enterpathy, infiltrative neoplasia or disease e/g lymphoma, amyloid, sarcoid 2/ anemia, no overt GIB, possibly from malabsorption or occult GIB --b12 was nml PLAN: 1/ surgical consult 2/ hold on egd and colo given recent low K and concern for pneumatosis with markedly raised CRP--may reconsider based on clinical course 3/ emprical ABX with cef and met 4/ consider repeat imaging in 48 hrs with PO and possible IV contrast depending on renal fn Procedures Date of Service Date of Service: 01/08/25
[2025-01-08 07:36] LABS: Glucose, Whole Blood 86 mg/dL (60-115)
[2025-01-08] MEDS: metroNIDAZOLE/NS 500 MG/100 ML PIGGYBACK 100 MG IV ×2 (07:58→19:24)
[2025-01-08] MEDS: FLUoxetine HCl 10 MG CAPSULE PO (08:01)
[2025-01-08] MEDS: Sodium Bicarbonate 650 MG TABLET PO ×3 (08:04→22:18)
[2025-01-08] MEDS: HaloperidoL 5 MG TABLET PO ×2 (08:04→22:18)
[2025-01-08] MEDS: Metoprolol Succinate ER 50 MG TAB.ER.24H PO (08:04)
--- NOTE | 2025-01-08 09:30 | MHC.CM.PN ---
Pt. was here, [place] on 01/02/25, Pt lives with her dtr. and gr dtr., her dtr. is [employer] and HCP. PCP is Dr. Blevins, pt. family to transport home at [place]. Pt. is active with [facility]. DCP: home, resume [facility] services. CM to follow for DC needs.
--- NOTE | 2025-01-08 10:10 | PC.NURSE ---
pt still having small amounts of diarrhea. she denies pain. no abd pain. orthostatic vitals complete and stable. denies dizziness.
--- NOTE | 2025-01-08 11:16 | HO.PM.IMPN ---
Subjective Subjective Date of Service: 01/08/25 Interval History: seen and evaluated this morning feels better overall more alert and interactive BP stable but soft , stable orthostatic No other overnight events Review of Systems Review of Systems: Yes all other systems are reviewed and are negative Physical Exam Vital Signs: Vital Signs: Last Vital Signs Temp 98.2 F 01/08/25 08:02 Pulse 83 01/08/25 09:34 Resp 20 01/08/25 08:02 BP 114/60 01/08/25 09:34 Pulse Ox 96 01/08/25 08:02 O2 Del Method Room Air 01/08/25 08:02 BMI result Body Mass Index 29.3 Const: Other: Constitutional : Awake, interactive, not in distress Neck : Normal inspection, Supple Cardiovascular : RRR, no JVP, no lower extremity edema Respiratory : good bilateral air entry, no crackles, wheezes or rhonchi Gastrointestinal: soft, lax, Normal bowel sounds, Non tender Skin : Warm, Dry Neurological : Alert & oriented to self and place, No focal deficit Objective Data Active Medications Acetaminophen (Acetaminophen 325 Mg Tablet) 650 mg PO Q6H PRN PRN Reason: Pain, Mild 1-3,fever,headache Calcium Carbonate (Calcium Carbonate 750 Mg Tab.Chew) 750 mg PO Q4H PRN PRN Reason: Heartburn Ceftriaxone Sodium (Ceftriaxone Sodium 1 Gm Vial) 1 gm IVPUSH Q24H [facility] Dextrose (Dextrose 50 % 25 Gm/50 Ml Syringe) 25 gm IVPUSH Q15M PRN; Protocol PRN Reason: per Hypoglycemia Standing Ord. Enoxaparin Sodium (Enoxaparin Sodium 40 Mg/0.4 Ml Syringe) 40 mg SUBCUT Q24H [facility] Fluoxetine HCl (Fluoxetine Hcl 10 Mg Capsule) 10 mg PO DAILY [facility] Last Admin: 01/08/25 08:01 Dose: 10 mg Documented By: MERVIN Gabapentin (Gabapentin 100 Mg Capsule) 100 mg PO BEDTIME [facility] Last Admin: 01/07/25 20:54 Dose: 100 mg Documented By: CAMILA Glucose (Glucose Gel 15 Gm Gel..Gram.) 15 gm PO Q15M PRN; Protocol PRN Reason: per Hypoglycemia Standing Ord. Haloperidol (Haloperidol 5 Mg Tablet) 5 mg PO BID [facility] Last Admin: 01/08/25 08:04 Dose: 5 mg Documented By: MERVIN Metronidazole (Flagyl) 500 mg in 100 mls @ 100 mls/hr IV Q12H [facility] Last Infusion: 01/08/25 09:49 Dose: Infused Documented By: MERVIN Insulin Human Lispro (Insulin Lispro 100 Unit/Ml 3 Ml Vial) 0 unit SUBCUT QIDACHS [facility]; Protocol Last Admin: 01/08/25 07:23 Dose: Not Given Documented By: MERVIN Non-Admin Reason: No Insulin Coverage Magnesium Hydroxide (Milk Of Magnesia 30 Ml Oral.Susp) 30 ml PO DAILY PRN PRN Reason: Constipation Melatonin (Melatonin 3 Mg Tablet) 6 mg PO BEDTIME PRN PRN Reason: Insomnia Last Admin: 01/08/25 02:46 Dose: 6 mg Documented By: ALEX Metoprolol Succinate (Metoprolol Succinate Er 50 Mg Tab.Er.24h) 50 mg PO DAILY [facility]; Protocol Last Admin: 01/08/25 08:04 Dose: 50 mg Documented By: MERVIN Mirtazapine (Mirtazapine 7.5 Mg Tablet) 7.5 mg PO BEDTIME [facility] Last Admin: 01/07/25 20:53 Dose: 7.5 mg Documented By: CAMILA Sodium Bicarbonate (Sodium Bicarbonate 650 Mg Tablet) 650 mg PO TID [facility] Last Admin: 01/08/25 08:04 Dose: 650 mg Documented By: MERVIN Sodium Chloride (0.9 % Sodium Chloride Flush 3 Ml Syringe) 3 ml IVFLUSH QSHIFT [facility] Last Admin: 01/08/25 08:00 Dose: 3 ml Documented By: MERVIN Labs 01/08/25 04:26 01/08/25 04:26 Labs: Laboratory Results - last 24 hr 01/07/25 01/07/25 01/07/25 11:23 11:24 12:53 MCV 82.7 MCH 28.0 MCHC 33.8 RDW 15.6 Plt Count 422 H MPV 8.8 L Immature Gran % (Auto) Cancelled Neut % (Auto) Cancelled Lymph % (Auto) Cancelled [place] % (Auto) Cancelled Eos % (Auto) Cancelled Baso % (Auto) Cancelled Lymph # (Auto) Cancelled [place] # (Auto) Cancelled Eos # (Auto) Cancelled Baso # (Auto) Cancelled Abs Immat Gran (auto) Cancelled Absolute Neuts (auto) Cancelled Absolute Nucleated RBC 0.000 Nucleated RBC % (auto) 0.0 Neutrophils % (Manual) 68 Band Neutrophils % 8 H Lymphocytes % (Manual) 10 L Atypical Lymphs % (Man) 2 Monocytes % (Manual) 12 H Abs Neuts (Manual) 6.1 Lymphocytes # (Manual) 0.8 L Atyp Lymphs # (Manual) 0.2 Monocytes # (Manual) 1.0 Toxic Vacuolation PRESENT Dohle Bodies PRESENT Chilo Rods TNP Platelet Estimate SLIGHTLY INCREASED Plt Morphology Comment NORMAL RBC Morphology NOTED Macrocytosis 1+ (5-14) Acanthocytes (Spur) 2+ (3-5) ESR PT 15.3 H INR 1.3 H VBG pH VBG pCO2 VBG pO2 VBG HCO3 VBG O2 Saturation VBG Base Excess Anion Gap 10 L Estim Creat Clear Calc 52.4 Estimated GFR 53 POC Glucose Random Glucose 144 H Lactic Acid Calcium 7.0 L D Magnesium 1.6 Iron < 7 L TIBC 115 L % Saturation 6 L Unsat Iron Binding 108 Ferritin 218 Total Bilirubin 0.4 Direct Bilirubin AST 21 ALT < 6 Alkaline Phosphatase 100 C-Reactive Protein 20.65 H B-Natriuretic Peptide 288 H Total Protein 4.4 L Albumin 2.1 L Urine Color Dark Yellow Urine Appearance Cloudy Urine pH 5.5 Ur Specific [place] 1.015 Urine Protein 30 (1+) H Urine Glucose (UA) 500 H Urine Ketones Trace Urine Blood Small (1+) H Urine Nitrite Negative Ur Leukocyte Esterase Large (3+) H Urine RBC 3-5 H Urine WBC 0-5 Ur Squamous Epith Cells >20 Urine Bacteria 2+ Hyaline Casts 0-2 Ur Random Sodium 32.0 Ur Random Potassium 29.7 Ur Random Chloride < 20.0 Stool Occult Blood Stl C. cayetanensis PCR Not Detected Stool Rotavirus A PCR Not Detected Stl Adenov F 40/41 PCR Not Detected Stool Astrovirus (PCR) Not Detected Stool Campylobacter PCR Not Detected Stool Cryptosporidium PCR Not Detected Stl Sh Tox Pr E STEC PCR Not Detected Stool E coli O157 PCR Not applicable Stl Enterotoxigenic E PCR Not Detected Stool EPEC (PCR) Not Detected Stool EAEC (PCR) Not Detected Stl E. histolytica PCR Not Detected Stool Giardia Lamblia PCR Not Detected Stl P. shigelloides PCR Not Detected Stool Salmonella PCR Not Detected Stool Sapovirus (PCR) Not Detected Stl Shigella/EIEC PCR Not Detected St Y.enterocolitica PCR Not Detected Stool Vibrio (PCR) Not Detected Stl Vibrio cholerae PCR Not Detected Stl Norovirus GI/GII PCR Not Detected C. difficile Tox B Gene Influenza Type A (PCR) NEGATIVE Influenza Type B (PCR) NEGATIVE RSV RNA Qual (PCR) NEGATIVE SARS-CoV-2 RNA (RT-PCR) NEGATIVE Blood Type B Positive Antibody Screen NEGATIVE Crossmatch See Detail 01/07/25 01/07/25 01/07/25 12:54 13:00 15:04 MCV MCH MCHC RDW Plt Count MPV Immature Gran % (Auto) Neut % (Auto) Lymph % (Auto) [place] % (Auto) Eos % (Auto) Baso % (Auto) Lymph # (Auto) [place] # (Auto) Eos # (Auto) Baso # (Auto) Abs Immat Gran (auto) Absolute Neuts (auto) Absolute Nucleated RBC Nucleated RBC % (auto) Neutrophils % (Manual) Band Neutrophils % Lymphocytes % (Manual) Atypical Lymphs % (Man) Monocytes % (Manual) Abs Neuts (Manual) Lymphocytes # (Manual) Atyp Lymphs # (Manual) Monocytes # (Manual) Toxic Vacuolation Dohle Bodies Chilo Rods Platelet Estimate Plt Morphology Comment RBC Morphology Macrocytosis Acanthocytes (Spur) ESR PT INR VBG pH 7.37 VBG pCO2 32 VBG pO2 62 VBG HCO3 19 L VBG O2 Saturation TNP VBG Base Excess -5.3 Anion Gap Estim Creat Clear Calc Estimated GFR POC Glucose Random Glucose Lactic Acid 1.3 Calcium Magnesium Iron TIBC % Saturation Unsat Iron Binding Ferritin Total Bilirubin Direct Bilirubin AST ALT Alkaline Phosphatase C-Reactive Protein B-Natriuretic Peptide Total Protein Albumin Urine Color Urine Appearance Urine pH Ur Specific [place] Urine Protein Urine Glucose (UA) Urine Ketones Urine Blood Urine Nitrite Ur Leukocyte Esterase Urine RBC Urine WBC Ur Squamous Epith Cells Urine Bacteria Hyaline Casts Ur Random Sodium Ur Random Potassium Ur Random Chloride Stool Occult Blood Stl C. cayetanensis PCR Stool Rotavirus A PCR Stl Adenov F 40/41 PCR Stool Astrovirus (PCR) Stool Campylobacter PCR Stool Cryptosporidium PCR Stl Sh Tox Pr E STEC PCR Stool E coli O157 PCR Stl Enterotoxigenic E PCR Stool EPEC (PCR) Stool EAEC (PCR) Stl E. histolytica PCR Stool Giardia Lamblia PCR Stl P. shigelloides PCR Stool Salmonella PCR Stool Sapovirus (PCR) Stl Shigella/EIEC PCR St Y.enterocolitica PCR Stool Vibrio (PCR) Stl Vibrio cholerae PCR Stl Norovirus GI/GII PCR C. difficile Tox B Gene NEGATIVE Influenza Type A (PCR) Influenza Type B (PCR) RSV RNA Qual (PCR) SARS-CoV-2 RNA (RT-PCR) Blood Type Antibody Screen Crossmatch 01/07/25 01/07/25 01/07/25 16:07 17:21 20:51 MCV MCH MCHC RDW Plt Count MPV Immature Gran % (Auto) Neut % (Auto) Lymph % (Auto) [place] % (Auto) Eos % (Auto) Baso % (Auto) Lymph # (Auto) [place] # (Auto) Eos # (Auto) Baso # (Auto) Abs Immat Gran (auto) Absolute Neuts (auto) Absolute Nucleated RBC Nucleated RBC % (auto) Neutrophils % (Manual) Band Neutrophils % Lymphocytes % (Manual) Atypical Lymphs % (Man) Monocytes % (Manual) Abs Neuts (Manual) Lymphocytes # (Manual) Atyp Lymphs # (Manual) Monocytes # (Manual) Toxic Vacuolation Dohle Bodies [place]ilo Rods Platelet Estimate Plt Morphology Comment RBC Morphology Macrocytosis Acanthocytes (Spur) ESR PT INR VBG pH VBG pCO2 VBG pO2 VBG HCO3 VBG O2 Saturation VBG Base Excess Anion Gap Estim Creat Clear Calc Estimated GFR POC Glucose 118 H 153 H Random Glucose Lactic Acid Calcium Magnesium Iron TIBC % Saturation Unsat Iron Binding Ferritin Total Bilirubin Direct Bilirubin AST ALT Alkaline Phosphatase C-Reactive Protein B-Natriuretic Peptide Total Protein Albumin Urine Color Urine Appearance Urine pH Ur Specific [place] Urine Protein Urine Glucose (UA) Urine Ketones Urine Blood Urine Nitrite Ur Leukocyte Esterase Urine RBC Urine WBC Ur Squamous Epith Cells Urine Bacteria Hyaline Casts Ur Random Sodium Ur Random Potassium Ur Random Chloride Stool Occult Blood POSITIVE Stl C. cayetanensis PCR Stool Rotavirus A PCR Stl Adenov F 40/41 PCR Stool Astrovirus (PCR) Stool Campylobacter PCR Stool Cryptosporidium PCR Stl Sh Tox Pr E STEC PCR Stool E coli O157 PCR Stl Enterotoxigenic E PCR Stool EPEC (PCR) Stool EAEC (PCR) Stl E. histolytica PCR Stool Giardia Lamblia PCR Stl P. shigelloides PCR Stool Salmonella PCR Stool Sapovirus (PCR) Stl Shigella/EIEC PCR St Y.enterocolitica PCR Stool Vibrio (PCR) Stl Vibrio cholerae PCR Stl Norovirus GI/GII PCR C. difficile Tox B Gene Influenza Type A (PCR) Influenza Type B (PCR) RSV RNA Qual (PCR) SARS-CoV-2 RNA (RT-PCR) Blood Type Antibody Screen Crossmatch 01/08/25 01/08/25 04:26 07:21 MCV 82.4 MCH 29.3 MCHC 35.6 H RDW 15.2 Plt Count 500 H MPV 9.0 L Immature Gran % (Auto) Neut % (Auto) Lymph % (Auto) [place] % (Auto) Eos % (Auto) Baso % (Auto) Lymph # (Auto) [place] # (Auto) Eos # (Auto) Baso # (Auto) Abs Immat Gran (auto) Absolute Neuts (auto) Absolute Nucleated RBC 0.000 Nucleated RBC % (auto) 0.0 Neutrophils % (Manual) Band Neutrophils % Lymphocytes % (Manual) Atypical Lymphs % (Man) Monocytes % (Manual) Abs Neuts (Manual) Lymphocytes # (Manual) Atyp Lymphs # (Manual) Monocytes # (Manual) Toxic Vacuolation Dohle Bodies [place]ilo Rods Platelet Estimate Plt Morphology Comment RBC Morphology Macrocytosis Acanthocytes (Spur) ESR 12 PT INR VBG pH VBG pCO2 VBG pO2 VBG HCO3 VBG O2 Saturation VBG Base Excess Anion Gap 12 Estim Creat Clear Calc 64.1 Estimated GFR > 60 POC Glucose 86 Random Glucose 93 Lactic Acid Calcium 7.1 L Magnesium 2.2 Iron TIBC % Saturation Unsat Iron Binding Ferritin Total Bilirubin 0.3 Direct Bilirubin 0.2 AST 12 ALT < 6 Alkaline Phosphatase 99 C-Reactive Protein B-Natriuretic Peptide Total Protein 4.4 L Albumin 2.0 L Urine Color Urine Appearance Urine pH Ur Specific [place] Urine Protein Urine Glucose (UA) Urine Ketones Urine Blood Urine Nitrite Ur Leukocyte Esterase Urine RBC Urine WBC Ur Squamous Epith Cells Urine Bacteria Hyaline Casts Ur Random Sodium Ur Random Potassium Ur Random Chloride Stool Occult Blood Stl C. cayetanensis PCR Stool Rotavirus A PCR Stl Adenov F 40/41 PCR Stool Astrovirus (PCR) Stool Campylobacter PCR Stool Cryptosporidium PCR Stl Sh Tox Pr E STEC PCR Stool E coli O157 PCR Stl Enterotoxigenic E PCR Stool EPEC (PCR) Stool EAEC (PCR) Stl E. histolytica PCR Stool Giardia Lamblia PCR Stl P. shigelloides PCR Stool Salmonella PCR Stool Sapovirus (PCR) Stl Shigella/EIEC PCR St Y.enterocolitica PCR Stool Vibrio (PCR) Stl Vibrio cholerae PCR Stl Norovirus GI/GII PCR C. difficile Tox B Gene Influenza Type A (PCR) Influenza Type B (PCR) RSV RNA Qual (PCR) SARS-CoV-2 RNA (RT-PCR) Blood Type Antibody Screen Crossmatch Assessment and Plan (1) Syncope: Status: Acute (2) Urinary tract infection: Status: Acute (3) Pneumatosis of intestines: Status: Acute Plan 59F PMH diabetes, hypertension, hyperlipidemia, peripheral neuropathy, CKD 3, gerd, presented with presycnope Presyncope due to orthostatic hypotension with supine hypertension due to dehydration due to chronic diarrhea responded to IVF , repeat orthostatic today normal stool studies negative Pneumatosis of colon No reported pain but has diarrhea CT Abd reports: dilated transverse and descending colon, measuring 9.6 cm in greatest diameter with linear bowel wall air bubble collection suspicious for bowel wall pneumatosis, Elevated CRP but low LA GI eval pending uti rocephin follow up culture recurrent NAGMA likely due to diarrhea oral bicarb check urine lytes - rule out RTA dm II POC insulin acute hypokalemia replace and monitor acute anemia follow up iron studies, gi suspect inflammatory will transfuse 1 unit dvt prophylaxis - lovenox full code require at least overnight inpatient stay pending GI evaluation of Pneumatosis , cultures of urine on IV antibiotics and evaluating syncopal episode Quality Stroke Does the patient have a stroke diagnosis?: No VTE Prior VTE?: No VTE Risk Level:: Medical - moderate - high VTE Device Contraindication: Treatment Not Indicated VTE Drug Contraindication: N/A - Med Ordered
[2025-01-08 11:55] LABS: Glucose, Whole Blood 112 mg/dL (60-115)
[2025-01-08] MEDS: Enoxaparin Sodium 40 MG/0.4 ML SYRINGE SUBCUT (11:58)
[2025-01-08 13:33] LABS: Leukocytes Stool Qualitative NEGATIVE (NEGATIVE)
[2025-01-08] MEDS: cefTRIAXone sodium 1 GM VIAL IVPUSH (14:53)
--- NOTE | 2025-01-08 15:30 | PC.NURSE ---
Report received from AMISH Anand. Taken over care at this time.
[2025-01-08 15:47] LABS: Glucose, Whole Blood 150 mg/dL (60-115)
[2025-01-08 19:52] LABS: Glucose, Whole Blood 208 mg/dL (60-115)
[2025-01-08] MEDS: Mirtazapine 7.5 MG TABLET PO (22:18)
[2025-01-08] MEDS: Gabapentin 100 MG CAPSULE PO (22:19)
[2025-01-08 22:26] LABS: Glucose, Whole Blood 134 mg/dL (60-115)
[2025-01-09] VITALS (9 sets, daily range): BP systolic 91–125; BP diastolic 52–59; PULSE 75–87; RESP 12–20; TEMP 36.4–37.4; O2SAT 95–99
[2025-01-09] MEDS: metroNIDAZOLE/NS 500 MG/100 ML PIGGYBACK 100 MG IV ×2 (06:30→18:24)
[2025-01-09] MEDS: 0.9 % Sodium Chloride Flush 3 ML SYRINGE IVFLUSH ×4 (06:30→19:40)
[2025-01-09 07:40] LABS: Glucose, Whole Blood 107 mg/dL (60-115)
--- NOTE | 2025-01-09 08:42 | P.CONGS_ITS ---
History of Present Illness Consult details Consult date: 01/09/25 Requesting physician: Sasha Booker Narrative: 59-year-old female patient admitted to the hospitalist service on 01/07/2025 after a near syncopal episode. She was previously admitted for hypotension, UTI, acidosis and likely dehydration due to a diarrheal illness. She has a past history of diabetes, hypertension, hyperlipidemia, peripheral neuropathy, CKD 3, and GERD. Laboratories revealed normal WBC but H&H of 7.1/21.0. A CT abdomen and pelvis obtained on 01/07/2025 revealed ?dilated transverse and descending colon measuring 9.6 cm in diameter with linear bowel wall air bubble collection suspicious for bowel wall pneumatosis. Anasarca, abdominal wall edema, small bilateral pleural effusions and small pericardial effusion may be due to fluid and electrolyte imbalance. ? Surgical consultation was requested regarding the pneumatosis. Gastroenterology has also been consulted. Review of Systems 2 Review of Systems: Patient poor historian Yes all other systems are reviewed and are negative PMFSH Past Medical History Medical History Dysphagia Anxiety disorder GERD (gastroesophageal reflux disease) Migraines Asthma On beta jordyn at home Elevated cholesterol HTN (hypertension) Smoker Diabetes Depression Heartburn Surgical History Surgical History Hx of left knee surgery History of tubal ligation History of esophagogastroduodenoscopy (EGD) H/O colonoscopy Hx of cholecystectomy Social History Social History Household Members: Children Housing: Apartment Housing Other:: pt states she lives in an apartment at her daughter's house Do you presently have visiting nurse or other home services: Yes (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) Alcohol intake: former Comment: 1:1 sitter Patient Tobacco Use Status: Current everyday Tobacco user Tobacco use type: Cigarette Cigarettes Per Day: 3 Years Smoked: 15 e-Cigarette/Vaping Use: Never Used Second Hand Smoke Exposure: Yes service: No Current occupational status: disabled Meds Allergies Allergy/AdvReac Type Severity Reaction Status Date / Time iron Allergy Mild Difficulty Verified 01/09/25 08:26 Breathing Iodinated Contrast Media Allergy Unknown UNKNOWN Verified 01/07/25 10:58 [IV Dye, Iodine Containing] iodine [IODINE] Allergy Unknown RASH Verified 01/07/25 10:58 seafood Allergy Unknown Unknown Verified 01/07/25 10:58 Active Medications: Current Medications Acetaminophen (Acetaminophen 325 Mg Tablet) 650 mg PO Q6H PRN PRN Reason: Pain, Mild 1-3,fever,headache Calcium Carbonate (Calcium Carbonate 750 Mg Tab.Chew) 750 mg PO Q4H PRN PRN Reason: Heartburn Ceftriaxone Sodium (Ceftriaxone Sodium 1 Gm Vial) 1 gm IVPUSH Q24H [facility] Last Admin: 01/08/25 14:53 Dose: 1 gm Dextrose (Dextrose 50 % 25 Gm/50 Ml Syringe) 25 gm IVPUSH Q15M PRN; Protocol PRN Reason: per Hypoglycemia Standing Ord. Diphenhydramine HCl (Diphenhydramine Hcl 50 Mg/Ml Vial) 25 mg IVPUSH Q6H PRN PRN Reason: Allergic Reaction Enoxaparin Sodium (Enoxaparin Sodium 40 Mg/0.4 Ml Syringe) 40 mg SUBCUT Q24H [facility] Last Admin: 01/08/25 11:58 Dose: 40 mg Fluoxetine HCl (Fluoxetine Hcl 10 Mg Capsule) 10 mg PO DAILY [facility] Last Admin: 01/08/25 08:01 Dose: 10 mg Gabapentin (Gabapentin 100 Mg Capsule) 100 mg PO BEDTIME [facility] Last Admin: 01/08/25 22:19 Dose: 100 mg Glucose (Glucose Gel 15 Gm Gel..Gram.) 15 gm PO Q15M PRN; Protocol PRN Reason: per Hypoglycemia Standing Ord. Haloperidol (Haloperidol 5 Mg Tablet) 5 mg PO BID [facility] Last Admin: 01/08/25 22:18 Dose: 5 mg Metronidazole (Flagyl) 500 mg in 100 mls @ 100 mls/hr IV Q12H [facility] Last Admin: 01/09/25 06:30 Dose: 100 mls/hr Ferric Sodium Gluconate Complex 125 mg/ Sodium Chloride 110 mls @ 100 mls/hr IV DAILY [facility] Stop: 01/11/25 10:05 Insulin Human Lispro (Insulin Lispro 100 Unit/Ml 3 Ml Vial) 0 unit SUBCUT QIDACHS [facility]; Protocol Last Admin: 01/09/25 07:44 Dose: Not Given Magnesium Hydroxide (Milk Of Magnesia 30 Ml Oral.Susp) 30 ml PO DAILY PRN PRN Reason: Constipation Melatonin (Melatonin 3 Mg Tablet) 6 mg PO BEDTIME PRN PRN Reason: Insomnia Last Admin: 01/08/25 02:46 Dose: 6 mg Metoprolol Succinate (Metoprolol Succinate Er 50 Mg Tab.Er.24h) 50 mg PO DAILY [facility]; Protocol Last Admin: 01/08/25 08:04 Dose: 50 mg Mirtazapine (Mirtazapine 7.5 Mg Tablet) 7.5 mg PO BEDTIME [facility] Last Admin: 01/08/25 22:18 Dose: 7.5 mg Sodium Bicarbonate (Sodium Bicarbonate 650 Mg Tablet) 650 mg PO TID [facility] Last Admin: 01/08/25 22:18 Dose: 650 mg Sodium Chloride (0.9 % Sodium Chloride Flush 3 Ml Syringe) 3 ml IVFLUSH QSHIFT [facility] Last Admin: 01/09/25 07:45 Dose: 3 ml Home Medications ?Medication ?Instructions ?Recorded ?Confirmed ?Last Taken ?Type aspirin 81 mg tablet,delayed 81 mg PO DAILY 04/21/22 01/07/25 01/07/25 History release atorvastatin 20 mg tablet 20 mg PO BEDTIME 04/21/22 01/07/25 01/06/25 History benztropine 0.5 mg tablet 0.5 mg PO BID 04/21/22 01/07/25 01/07/25 History fluoxetine 10 mg capsule 10 mg PO DAILY 04/21/22 01/07/25 01/07/25 History insulin syringe-needle U-100 0.5 #10 ea 04/21/22 12/26/24 Unknown History mL 30 gauge x 1/2 (UltiCare) metoprolol succinate 50 mg 50 mg PO DAILY 04/21/22 01/07/25 01/07/25 History tablet,extended release 24 hr mirtazapine 7.5 mg tablet 7.5 mg PO BEDTIME 04/21/22 01/07/25 01/06/25 History haloperidol 5 mg tablet 1 tab PO BID 05/06/22 01/07/25 01/07/25 History gabapentin 100 mg capsule 100 mg PO BEDTIME 05/30/24 01/07/25 01/06/25 History insulin glargine 100 unit/mL (3 20 unit subcut DAILY 08/27/24 01/07/25 01/07/25 History mL) subcutaneous pen (Lantus Solostar U-100 Insulin) dulaglutide 0.75 mg/0.5 mL 0.75 mg subcut SA 11/14/24 01/07/25 12/28/24 History subcutaneous pen injector (Trulicity) blood sugar diagnostic (FreeStyle #10 ea 12/04/24 12/26/24 Unknown History Lite Strips) lancets 33 gauge (TRUEplus Lancets) #100 ea 12/04/24 12/26/24 Unknown History pen needle, diabetic 31 gauge x #100 ea 12/04/24 12/26/24 Unknown History 1/ (Easy Touch) esomeprazole magnesium 40 mg 40 mg PO DAILY@0630 12/30/24 01/07/25 01/07/25 History capsule,delayed release (Nexium) prazosin 2 mg capsule 2 mg PO BEDTIME PRN High Blood 12/30/24 01/07/25 Unknown History Pressure Physical Exam 2 Vital Signs: Vital Signs: Last Vital Signs Temp 98.6 F 01/09/25 08:00 Pulse 83 01/09/25 08:33 Resp 20 01/09/25 08:00 BP 91/52 L 01/09/25 08:33 Pulse Ox 99 01/09/25 08:00 O2 Del Method Room Air 01/09/25 08:00 BMI result Body Mass Index 28.2 Const: General: no acute distress Nutritional Appearance: well nourished Orientation/consciousness: patient oriented x3 Eyes: Sclerae: sclerae normal Resp: Effort & Inspection: normal respiratory effort, no audible wheezes, no cough and no respiratory distress GI: Inspection: Yes normal to inspection Palpation (GI): Soft to palpation, nontender, no guarding, not rigid, No hepatosplenomegaly present and No Ascites present Percussion: Yes normal to percussion Auscultation: normal bowel sounds Rectal Exam - Female: deferred Skin: Other: Warm, dry, normal color Neuro: General: patient oriented x3 Results Labs 01/08/25 04:26 01/08/25 04:26 Labs: Abnormal lab results 01/08/25 01/08/25 01/08/25 Range/Units 15:36 19:47 22:22 POC Glucose 150 H 208 H 134 H (60-115) mg/dL Urine 01/07/25 Range/Units 12:53 Urine Color Dark Yellow Urine Appearance Cloudy Urine pH 5.5 (5.0-9.0) Ur Specific [place] 1.015 (1.005-1.025) Urine Protein 30 (1+) H (Neg-Trace) mg/dL Urine Glucose (UA) 500 H (Negative) mg/dL All other labs normal. Assessment and Plan (1) Pneumatosis of intestines: Status: Acute Plan 59-year-old female patient presenting after recent episode of syncope found on workup to have pneumatosis coli in the transverse and descending colon of unknown etiology. The patient has had a recent diarrheal episode but currently denies any diarrhea. Her abdominal exam is very benign without evidence of peritoneal signs. I would recommend supportive care at this point and would agree with continuing antibiotics. We will continue to monitor during her hospitalization. Procedures Date of Service Date of Service: 01/09/25
[2025-01-09] MEDS: FLUoxetine HCl 10 MG CAPSULE PO (08:43)
[2025-01-09] MEDS: HaloperidoL 5 MG TABLET PO ×2 (08:43→19:38)
[2025-01-09] MEDS: Sodium Bicarbonate 650 MG TABLET PO ×3 (08:43→19:38)
[2025-01-09 09:46] LABS: Hematocrit 27.1 % (37.0-47.0); Hemoglobin 9.3 g/dl (12.0-16.0); Mean Corpuscular HGB Conc 34.3 g/dl (31.0-35.0); Mean Corpuscular Hemoglobin 28.8 pg (27.0-33.0); Mean Corpuscular Volume 83.9 fL (80.0-98.0); Mean Platelet Volume 9.3 fL (9.4-12.3); Platelet Count 609 X10*3/uL (160-400); Red Blood Count 3.23 X10*6/uL (4.20-5.50); Red Cell Distribution Width 15.9 % (11.0-16.0); White Blood Count 7.2 X10*3/uL (4.8-10.8)
[2025-01-09 10:03] LABS: Anion Gap 11 (12-20); Blood Urea Nitrogen 18 mg/dL (9-16); Calcium 7.4 mg/dL (8.4-10.2); Carbon Dioxide 20 mmol/L (22-29); Chloride 107 mmol/L (96-108); Creatinine Clr Calc Pharmacy 54.7; Estimated Glomerular Filt Rate 57; Glucose Random 165 mg/dL (60-115); Potassium 3.4 mmol/L (3.3-5.1); Sodium 135 mmol/L (135-145)
--- NOTE | 2025-01-09 10:24 | HE.PHANOTE ---
RE: IRON ALLERGY Patient told nurse that her reaction to iron is that she gets a red rash over her body and difficulty breathing . Dr. Booker spoke to patient and per md, reported old reaction with rash, will premedicate her . Doctor gave the ok to go ahead with the sodium ferric gluconate, nurse Barbra Corrigan is aware of premedicating pt with benadryl prior to infusion.
[2025-01-09 10:27] LABS: Alanine Aminotransferase < 6 U/L (0-31); Albumin Level 2.2 g/dL (3.5-5.0); Alkaline Phosphatase 114 U/L (39-117); Aspartate Amino Transferase 15 U/L (5-31); Bilirubin Direct 0.2 mg/dL (0.0-0.5); Bilirubin Total 0.4 mg/dL (0.0-1.0); Total Protein 4.9 g/dL (6.5-8.0)
[2025-01-09] MEDS: Enoxaparin Sodium 40 MG/0.4 ML SYRINGE SUBCUT (11:00)
[2025-01-09] MEDS: diphenhydrAMINE HCL 50 MG/ML VIAL 25 MG IVPUSH (11:18)
[2025-01-09] MEDS: Sodium Ferric Gluconat/Sucrose 125 MG in 0.9 % Sodium Chloride 100 ML 100 MG IV (11:21)
[2025-01-09 11:31] LABS: Glucose, Whole Blood 163 mg/dL (60-115)
[2025-01-09 11:35] LABS: Band Neutrophils Percent 14 % (3-5); Eosinophils Absolute Manual 0.1 X10*3/uL (0.0-0.4); Eosinophils Percent Manual 2 % (0-4); Lymphocytes Absolute Manual 1.6 X10*3/uL (1.2-4.9); Lymphocytes Percent Manual 22 % (20-40); Metamyelocytes Absolute 0.1 X10*3/uL; Metamyelocytes Percent 2 %; Monocytes Absolute Manual 0.4 X10*3/uL (0.1-1.2); Monocytes Percent Manual 5 % (2-11); Myelocytes Absolute 0.1 X10*/uL; Myelocytes Percent 1 %; Neutrophils Absolute Manual 4.9 X10*3/uL (2.0-8.3); Neutrophils Percent Manual 54 % (45-73)
[2025-01-09 11:42] LABS: Acanthocytes 3+ (>5) /OIF; Burr Cells 2+ (3-5) /OIF; RBC Morphology NOTED; Schistocytes 2+ (3-5) /OIF
[2025-01-09 11:43] LABS: Hypochromasia 1+ (5-14) /OIF; Platelet Estimate INCREASED (NORMAL); Platelet Morphology Comment NORMAL
[2025-01-09] MEDS: Metoprolol Succinate ER 50 MG TAB.ER.24H PO (11:57)
[2025-01-09] MEDS: Insulin Lispro 100 UNIT/ML 3 ML VIAL SUBCUT (11:59)
--- NOTE | 2025-01-09 13:30 | HO.PM.IMPN ---
Subjective Subjective Date of Service: 01/09/25 Interval History: seen and evaluated this morning alert and interactive Feels good overall BP stable but soft , stable orthostatic No other overnight events Review of Systems Review of Systems: Yes all other systems are reviewed and are negative Physical Exam Vital Signs: Vital Signs: Last Vital Signs Temp 98.5 F 01/09/25 11:28 Pulse 78 01/09/25 11:28 Resp 20 01/09/25 11:28 BP 109/59 L 01/09/25 11:28 Pulse Ox 96 01/09/25 11:28 O2 Del Method Room Air 01/09/25 11:28 BMI result Body Mass Index 28.2 Const: Other: Constitutional : Awake, interactive, not in distress Neck : Normal inspection, Supple Cardiovascular : RRR, no JVP, no lower extremity edema Respiratory : good bilateral air entry, no crackles, wheezes or rhonchi Gastrointestinal: soft, lax, Normal bowel sounds, Non tender Skin : Warm, Dry Neurological : Alert & oriented to self and place, No focal deficit Objective Data Active Medications Acetaminophen (Acetaminophen 325 Mg Tablet) 650 mg PO Q6H PRN PRN Reason: Pain, Mild 1-3,fever,headache Calcium Carbonate (Calcium Carbonate 750 Mg Tab.Chew) 750 mg PO Q4H PRN PRN Reason: Heartburn Ceftriaxone Sodium (Ceftriaxone Sodium 1 Gm Vial) 1 gm IVPUSH Q24H ON LICENSE OF [facility] Last Admin: 01/08/25 14:53 Dose: 1 gm Documented By: MERVIN Dextrose (Dextrose 50 % 25 Gm/50 Ml Syringe) 25 gm IVPUSH Q15M PRN; Protocol PRN Reason: per Hypoglycemia Standing Ord. Diphenhydramine HCl (Diphenhydramine Hcl 50 Mg/Ml Vial) 25 mg IVPUSH Q6H PRN PRN Reason: Allergic Reaction Last Admin: 01/09/25 11:18 Dose: 25 mg Documented By: ARSH Enoxaparin Sodium (Enoxaparin Sodium 40 Mg/0.4 Ml Syringe) 40 mg SUBCUT Q24H ON LICENSE OF [facility] Last Admin: 01/09/25 11:00 Dose: 40 mg Documented By: ARSH Fluoxetine HCl (Fluoxetine Hcl 10 Mg Capsule) 10 mg PO DAILY ON LICENSE OF [facility] Last Admin: 01/09/25 08:43 Dose: 10 mg Documented By: ARSH Gabapentin (Gabapentin 100 Mg Capsule) 100 mg PO BEDTIME ON LICENSE OF [facility] Last Admin: 01/08/25 22:19 Dose: 100 mg Documented By: MARYANN Glucose (Glucose Gel 15 Gm Gel..Gram.) 15 gm PO Q15M PRN; Protocol PRN Reason: per Hypoglycemia Standing Ord. Haloperidol (Haloperidol 5 Mg Tablet) 5 mg PO BID ON LICENSE OF [facility] Last Admin: 01/09/25 08:43 Dose: 5 mg Documented By: ARSH Metronidazole (Flagyl) 500 mg in 100 mls @ 100 mls/hr IV Q12H ON LICENSE OF [facility] Last Infusion: 01/09/25 07:30 Dose: Infused Documented By: ARSH Ferric Sodium Gluconate Complex 125 mg/ Sodium Chloride 110 mls @ 100 mls/hr IV DAILY ON LICENSE OF [facility] Stop: 01/11/25 10:05 Last Admin: 01/09/25 11:21 Dose: 100 mls/hr Documented By: ARSH Insulin Human Lispro (Insulin Lispro 100 Unit/Ml 3 Ml Vial) 0 unit SUBCUT QIDACHS ON LICENSE OF [facility]; Protocol Last Admin: 01/09/25 11:59 Dose: 2 unit Documented By: ARSH Magnesium Hydroxide (Milk Of Magnesia 30 Ml Oral.Susp) 30 ml PO DAILY PRN PRN Reason: Constipation Melatonin (Melatonin 3 Mg Tablet) 6 mg PO BEDTIME PRN PRN Reason: Insomnia Last Admin: 01/08/25 02:46 Dose: 6 mg Documented By: ALEX Metoprolol Succinate (Metoprolol Succinate Er 50 Mg Tab.Er.24h) 50 mg PO DAILY ON LICENSE OF [facility]; Protocol Last Admin: 01/09/25 11:57 Dose: 50 mg Documented By: ARSH Mirtazapine (Mirtazapine 7.5 Mg Tablet) 7.5 mg PO BEDTIME ON LICENSE OF [facility] Last Admin: 01/08/25 22:18 Dose: 7.5 mg Documented By: MARYANN Sodium Bicarbonate (Sodium Bicarbonate 650 Mg Tablet) 650 mg PO TID ON LICENSE OF [facility] Last Admin: 01/09/25 08:43 Dose: 650 mg Documented By: ARSH Sodium Chloride (0.9 % Sodium Chloride Flush 3 Ml Syringe) 3 ml IVFLUSH QSHIFT ON LICENSE OF [facility] Last Admin: 01/09/25 07:45 Dose: 3 ml Documented By: ARSH Labs 01/09/25 09:21 01/09/25 09:21 Labs: Laboratory Results - last 24 hr 01/08/25 01/08/25 01/08/25 12:13 15:36 19:47 MCV MCH MCHC RDW Plt Count MPV Immature Gran % (Auto) Neut % (Auto) Lymph % (Auto) [place] % (Auto) Eos % (Auto) Baso % (Auto) Lymph # (Auto) [place] # (Auto) Eos # (Auto) Baso # (Auto) Abs Immat Gran (auto) Absolute Neuts (auto) Absolute Nucleated RBC Nucleated RBC % (auto) Neutrophils % (Manual) Band Neutrophils % Lymphocytes % (Manual) Monocytes % (Manual) Eosinophils % (Manual) Metamyelocytes % Myelocytes % Abs Neuts (Manual) Lymphocytes # (Manual) Monocytes # (Manual) Eosinophils # (Manual) Metamyelocytes # Myelocytes # Platelet Estimate Plt Morphology Comment RBC Morphology Hypochromasia [place] Cells Acanthocytes (Spur) Schistocytes Anion Gap Estim Creat Clear Calc Estimated GFR POC Glucose 150 H 208 H Random Glucose Calcium Total Bilirubin Direct Bilirubin AST ALT Alkaline Phosphatase Total Protein Albumin Stool Leukocytes, Qual NEGATIVE 01/08/25 01/09/25 01/09/25 22:22 07:34 09:21 MCV 83.9 MCH 28.8 MCHC 34.3 RDW 15.9 Plt Count 609 H MPV 9.3 L Immature Gran % (Auto) Cancelled Neut % (Auto) Cancelled Lymph % (Auto) Cancelled [place] % (Auto) Cancelled Eos % (Auto) Cancelled Baso % (Auto) Cancelled Lymph # (Auto) Cancelled [place] # (Auto) Cancelled Eos # (Auto) Cancelled Baso # (Auto) Cancelled Abs Immat Gran (auto) Cancelled Absolute Neuts (auto) Cancelled Absolute Nucleated RBC 0.000 Nucleated RBC % (auto) 0.0 Neutrophils % (Manual) 54 Band Neutrophils % 14 H Lymphocytes % (Manual) 22 Monocytes % (Manual) 5 Eosinophils % (Manual) 2 Metamyelocytes % 2 Myelocytes % 1 Abs Neuts (Manual) 4.9 Lymphocytes # (Manual) 1.6 Monocytes # (Manual) 0.4 Eosinophils # (Manual) 0.1 Metamyelocytes # 0.1 Myelocytes # 0.1 Platelet Estimate INCREASED Plt Morphology Comment NORMAL RBC Morphology NOTED Hypochromasia 1+ (5-14) [place] Cells 2+ (3-5) Acanthocytes (Spur) 3+ (>5) Schistocytes 2+ (3-5) Anion Gap 11 L Estim Creat Clear Calc 54.7 Estimated GFR 57 POC Glucose 134 H 107 Random Glucose 165 H Calcium 7.4 L Total Bilirubin 0.4 Direct Bilirubin 0.2 AST 15 ALT < 6 Alkaline Phosphatase 114 Total Protein 4.9 L Albumin 2.2 L Stool Leukocytes, Qual 01/09/25 11:23 MCV MCH MCHC RDW Plt Count MPV Immature Gran % (Auto) Neut % (Auto) Lymph % (Auto) [place] % (Auto) Eos % (Auto) Baso % (Auto) Lymph # (Auto) [place] # (Auto) Eos # (Auto) Baso # (Auto) Abs Immat Gran (auto) Absolute Neuts (auto) Absolute Nucleated RBC Nucleated RBC % (auto) Neutrophils % (Manual) Band Neutrophils % Lymphocytes % (Manual) Monocytes % (Manual) Eosinophils % (Manual) Metamyelocytes % Myelocytes % Abs Neuts (Manual) Lymphocytes # (Manual) Monocytes # (Manual) Eosinophils # (Manual) Metamyelocytes # Myelocytes # Platelet Estimate Plt Morphology Comment RBC Morphology Hypochromasia [place] Cells Acanthocytes (Spur) Schistocytes Anion Gap Estim Creat Clear Calc Estimated GFR POC Glucose 163 H Random Glucose Calcium Total Bilirubin Direct Bilirubin AST ALT Alkaline Phosphatase Total Protein Albumin Stool Leukocytes, Qual Microbiology Microbiology Results: Microbiology 01/07/25 16:52 Blood Culture - Preliminary Blood - Venous No growth after 24 hours. 01/07/25 15:04 Blood Culture - Preliminary Blood - Venous No growth after 24 hours. 01/07/25 Unknown Urine Culture - Final Urine clean catch - Clean Catch Midstream Assessment and Plan (1) Pneumatosis of intestines: Status: Acute (2) Syncope: Status: Acute (3) Urinary tract infection: Status: Acute Plan 59F PMH diabetes, hypertension, hyperlipidemia, peripheral neuropathy, CKD 3, gerd, presented with presycnope Pneumatosis of colon, infectious colitis? No reported pain but has diarrhea CT Abd reports: dilated transverse and descending colon, measuring 9.6 cm in greatest diameter with linear bowel wall air bubble collection suspicious for bowel wall pneumatosis, Elevated CRP but low LA \ Ceftriaxone and Flagyl Advance diet GI and surgery input appreciated, supportive care for now Consider repeating CT Abd if needed Presyncope due to orthostatic hypotension with supine hypertension due to dehydration due to chronic diarrhea responded to IVF , repeat orthostatic today normal stool studies negative encourage hydration uti rocephin follow up culture recurrent NAGMA likely due to diarrhea oral bicarb check urine lytes - rule out RTA dm II POC insulin acute hypokalemia replace and monitor acute anemia follow up iron studies, gi suspect inflammatory will transfuse 1 unit dvt prophylaxis - lovenox full code require at least overnight inpatient stay to treat Colitis with IV antibiotics and follow on Pneumatosis , and close monitoring her BP and orthostatic vitals Quality Stroke Does the patient have a stroke diagnosis?: No VTE Prior VTE?: No VTE Risk Level:: Medical - moderate - high VTE Device Contraindication: Treatment Not Indicated VTE Drug Contraindication: N/A - Med Ordered
[2025-01-09] MEDS: cefTRIAXone sodium 1 GM VIAL IVPUSH (14:50)
[2025-01-09 15:24] LABS: Glucose, Whole Blood 58 mg/dL (60-115)
[2025-01-09 16:04] LABS: Glucose, Whole Blood 88 mg/dL (60-115)
[2025-01-09] MEDS: Gabapentin 100 MG CAPSULE PO (19:38)
[2025-01-09] MEDS: Mirtazapine 7.5 MG TABLET PO (19:38)
[2025-01-09 20:15] LABS: Glucose, Whole Blood 159 mg/dL (60-115)
[2025-01-10] VITALS (8 sets, daily range): BP systolic 106–116; BP diastolic 53–61; PULSE 70–84; RESP 16–20; TEMP 36.7–37.5; O2SAT 93–100
[2025-01-10] MEDS: metroNIDAZOLE/NS 500 MG/100 ML PIGGYBACK 100 MG IV (06:24)
[2025-01-10 07:16] LABS: Glucose, Whole Blood 121 mg/dL (60-115)
[2025-01-10 07:33] LABS: Hematocrit 29.3 % (37.0-47.0); Hemoglobin 10.3 g/dl (12.0-16.0); Mean Corpuscular HGB Conc 35.2 g/dl (31.0-35.0); Mean Corpuscular Hemoglobin 29.2 pg (27.0-33.0); Mean Platelet Volume 9.3 fL (9.4-12.3); Platelet Count 631 X10*3/uL (160-400); Red Blood Count 3.53 X10*6/uL (4.20-5.50); WBC ABN SCTR FOR CBC 1; White Blood Count 5.6 X10*3/uL (4.8-10.8)
[2025-01-10 07:48] LABS: Anion Gap 11 (12-20); Blood Urea Nitrogen 20 mg/dL (9-16); Calcium 7.5 mg/dL (8.4-10.2); Carbon Dioxide 20 mmol/L (22-29); Chloride 108 mmol/L (96-108); Creatinine Clr Calc Pharmacy 51.5; Estimated Glomerular Filt Rate 53; Glucose Random 139 mg/dL (60-115); Potassium 3.8 mmol/L (3.3-5.1); Sodium 135 mmol/L (135-145)
[2025-01-10 08:38] LABS: Band Neutrophils Percent 13 % (3-5); Lymphocytes Absolute Manual 1.1 X10*3/uL (1.2-4.9); Lymphocytes Percent Manual 19 % (20-40); Monocytes Percent Manual 18 % (2-11); Neutrophils Absolute Manual 3.5 X10*3/uL (2.0-8.3); Neutrophils Percent Manual 50 % (45-73)
[2025-01-10 08:42] LABS: RBC Morphology NOTED
[2025-01-10 08:43] LABS: Acanthocytes 3+ (>5) /OIF; Burr Cells 2+ (3-5) /OIF; Platelet Estimate INCREASED (NORMAL); Platelet Morphology Comment NORMAL; Schistocytes 1+ (0-2) /OIF
[2025-01-10] MEDS: 0.9 % Sodium Chloride Flush 3 ML SYRINGE IVFLUSH ×2 (08:54→15:38)
[2025-01-10] MEDS: HaloperidoL 5 MG TABLET PO (08:54)
[2025-01-10] MEDS: Enoxaparin Sodium 40 MG/0.4 ML SYRINGE SUBCUT (08:54)
[2025-01-10] MEDS: Sodium Bicarbonate 650 MG TABLET PO ×2 (08:54→15:38)
[2025-01-10] MEDS: Metoprolol Succinate ER 50 MG TAB.ER.24H PO (08:54)
[2025-01-10] MEDS: FLUoxetine HCl 10 MG CAPSULE PO (08:54)
[2025-01-10] MEDS: Sodium Ferric Gluconat/Sucrose 125 MG in 0.9 % Sodium Chloride 100 ML 100 MG IV (08:55)
[2025-01-10] MEDS: Loperamide HCl 2 MG CAPSULE 4 MG PO (10:23)
[2025-01-10 11:13] LABS: Glucose, Whole Blood 170 mg/dL (60-115)
[2025-01-10] MEDS: Barium Sulfate Oral (Berry) 450 ML ORAL.SUSP 900 ML PO (15:04)
[2025-01-10] MEDS: cefTRIAXone sodium 1 GM VIAL IVPUSH (15:35)
[2025-01-10 16:03] LABS: Glucose, Whole Blood 133 mg/dL (60-115)
--- NOTE | 2025-01-10 16:03 | P.DS_ITS ---
DS: Providers Provider Date of Service: 01/10/25 Date of admission: 01/07/25 16:03 Date of discharge: 01/10/25 Primary care physician: Nolan Blevins MD Consults: 01/07/25 16:11 Consult to Gastroenterology Routine Consulting Provider: Darcy Lynn Reason for consultation: chronic diarrhea, anemia 01/09/25 07:59 Consult to General Surgery Routine Consulting Provider[place] [facility] Reason for consultation: Colon Pneumatosis with diarrhea DS: Diagnosis Discharge Diagnosis (1) Pneumatosis of intestines: Status: Acute (2) Syncope: Status: Acute (3) Urinary tract infection: Status: Acute (4) Colitis: Status: Acute (5) Orthostatic hypotension: Status: Acute (6) Diarrhea: Status: Acute (7) Metabolic acidosis: Status: Resolved (8) Hyponatremia: Status: Resolved (9) Acute hypokalemia: Status: Inactive DS: Summary Hospital Course Hospital Course: Admission note HPI 59F PMH diabetes, hypertension, hyperlipidemia, peripheral neuropathy, CKD 3, gerd, presented with presycnope. patient was admitted to [facility] [place] from 12/29/24- for hypotension, uti, acidosis, likely dehydration due to diarrheal illness. patient was doing better, blood pressure high on discharge, restarted on bp meds, diarrhea had improved, acidosis resolved. on day of presentation was standing and stated she was feeling very weak, then eyes rolled back, almost passed out briefly, so called EMS, bp noted to be low. in ED labs significnat for NAGMA, hgb 7.1, potassium 2.9, low-normal bp. reports ongoing diarrhea. Hospital course The patient was admitted for evaluation of Presyncopal episode due to orthostatic hypotension with supine hypertension due to dehydration from chronic diarrhea. She responded well to hydration with IV fluids as no recurrence of orthostatic symptoms. stool studies were negative for infection and WBCs. advised to stay well hydrated, started as need Imodium for diarrhea and we discontinue Prazosin given her low BP readings. She was able to particpate with PT who recommended home therapy. A CT scan of abdomen was done as part of her diarrhea work up reporting dilated transverse and descending colon, measuring 9.6 cm in greatest diameter with linear bowel wall air bubble collection suspicious for bowel wall pneumatosis. She was evaluated by GI and surgery team who recommended supportive therapy with fluids and IV antibiotics which was well tolerated. her diet was advance with good tolerance. she was on IV Ceftriaxone and Flagyl. A repeat CT scan was donw with IV and PO Contrast reporting findings suggestive of colitis and no evidence of pneumatosis intestinalis. She will be discharged home on Flagyl and Ceftin for 1 more week and follow with GI as outpatient for further work up. She has recurrent NAGMA likely due to diarrhea and was started on oral bicarb with good response. to continue at time of discharge. acute hypokalemia. replaced and monitored. resolved. acute on chronic anemia. likely a result of chronic GI loss. postive occult stool. received I unit of blood and IV Iron supplement. To follow with GI as outpatient for further evaluation. Discharge plan Discontinue Prazosin Hold Benzotropin; monitor blood pressure for 1 week and discuss with PCP before restarting it Continue Flagyl and Ceftin for 1 more week Imodium as needed for diarrhea Sodium bicarbonate twice a day Follow with PCP as outpatient in 2 weeks for further check up and medications adjustment. follow with GI as outpatient for further work up. Time Attestation Discharge Coordination Time (in mins): 39 Quality: Safe Use of Opioids Does Pt have an Active Cancer Diagnosis on the Problem List?: No Quality: Stroke Does the patient have a stroke diagnosis?: No Physical Exam Vital Signs: Vital Signs: Last Vital Signs Temp 98.3 F 01/10/25 15:36 Pulse 70 01/10/25 15:36 Resp 17 01/10/25 15:36 BP 107/54 L 01/10/25 15:36 Pulse Ox 100 01/10/25 15:36 O2 Del Method Room Air 01/10/25 15:36 BMI result Body Mass Index 28.2 Const: Other: Constitutional : Awake, interactive, not in distress Neck : Normal inspection, Supple Cardiovascular : RRR, no JVP, no lower extremity edema Respiratory : good bilateral air entry, no crackles, wheezes or rhonchi Gastrointestinal: soft, lax, Normal bowel sounds, Non tender Skin : Warm, Dry Neurological : Alert & oriented to self and place, No focal deficit DS: Data Data Completed and Pending Labs on day of discharge: Laboratory Results - last 24 hr 01/09/25 01/09/25 01/10/25 16:00 20:07 07:03 WBC 5.6 RBC 3.53 L Hgb 10.3 L Hct 29.3 L MCV 83.0 MCH 29.2 MCHC 35.2 H RDW 16.0 Plt Count 631 H MPV 9.3 L Immature Gran % (Auto) Cancelled Neut % (Auto) Cancelled Lymph % (Auto) Cancelled [place] % (Auto) Cancelled Eos % (Auto) Cancelled Baso % (Auto) Cancelled Lymph # (Auto) Cancelled [place] # (Auto) Cancelled Eos # (Auto) Cancelled Baso # (Auto) Cancelled Abs Immat Gran (auto) Cancelled Absolute Neuts (auto) Cancelled Absolute Nucleated RBC 0.000 Nucleated RBC % (auto) 0.0 Neutrophils % (Manual) 50 Band Neutrophils % 13 H Lymphocytes % (Manual) 19 L Monocytes % (Manual) 18 H Abs Neuts (Manual) 3.5 Lymphocytes # (Manual) 1.1 L Monocytes # (Manual) 1.0 Platelet Estimate INCREASED Plt Morphology Comment NORMAL RBC Morphology NOTED [place] Cells 2+ (3-5) Acanthocytes (Spur) 3+ (>5) Schistocytes 1+ (0-2) Sodium 135 Potassium 3.8 Chloride 108 Carbon Dioxide 20 L Anion Gap 11 L BUN 20 H Creatinine 1.05 Estim Creat Clear Calc 51.5 Estimated GFR 53 POC Glucose 88 159 H Random Glucose 139 H Calcium 7.5 L 01/10/25 01/10/25 01/10/25 07:11 11:01 15:56 WBC RBC Hgb Hct MCV MCH MCHC RDW Plt Count MPV Immature Gran % (Auto) Neut % (Auto) Lymph % (Auto) [place] % (Auto) Eos % (Auto) Baso % (Auto) Lymph # (Auto) [place] # (Auto) Eos # (Auto) Baso # (Auto) Abs Immat Gran (auto) Absolute Neuts (auto) Absolute Nucleated RBC Nucleated RBC % (auto) Neutrophils % (Manual) Band Neutrophils % Lymphocytes % (Manual) Monocytes % (Manual) Abs Neuts (Manual) Lymphocytes # (Manual) Monocytes # (Manual) Platelet Estimate Plt Morphology Comment RBC Morphology [place] Cells Acanthocytes (Spur) Schistocytes Sodium Potassium Chloride Carbon Dioxide Anion Gap BUN Creatinine Estim Creat Clear Calc Estimated GFR POC Glucose 121 H 170 H 133 H Random Glucose Calcium Preliminary micro results at discharge 01/07/25 16:52 Blood Culture - Preliminary Blood - Venous No growth after 48 hours. 01/07/25 15:04 Blood Culture - Preliminary Blood - Venous No growth after [address] scan - abdomen: Radiologist's impression: ITS Impressions Chest X-Ray 01/07/25 11:27 IMPRESSION: Mild interstitial lung edema in the correct clinical settings. Electronically signed by: Dung Wiggins MD 01/07/2025 12:22 PM EDT RP Cervical Spine CT 01/07/25 11:31 IMPRESSION: 1. No CT evidence of acute cervical spine fracture or injury. Electronically signed by: Sujit Calhoun MD 01/07/2025 01:58 PM EDT RP Head CT 01/07/25 13:04 IMPRESSION: 1. No acute intracranial abnormality. 2. Chronic findings as discussed. Electronically signed by: Sujit Calhoun MD 01/07/2025 01:53 PM EDT RP Abdomen/Pelvis CT 01/10/25 14:53 IMPRESSION: Segmental of asymmetric wall thickening distal descending colon. Inflammatory versus infectious versus neoplasm. Anasarca. No pneumatosis intestinalis or gas within the mesenteric veins nor the main portal vein. Fleischner guidelines were followed. Electronically signed by: Dung Wiggins MD 01/10/2025 03:20 PM EDT RP Discharge Plan Discharge Anticipated Discharge Date/Time: 01/10/25 15:57 Patient Disposition: Home Health Service Discharge Diagnosis: Colitis Pneumatosis of colon Syncope Referrals: [facility] [Outside] - 1 Week Name,MD Nolan [Primary Care Provider] - 1 Week Discharge Medications: New loperamide 2 mg Capsule 2 mg PO Q2H PRN (Reason: Diarrhea) Qty: 30 0RF metronidazole 500 mg Tablet 500 mg PO Q12H Qty: 14 0RF sodium bicarbonate 650 mg Tablet 650 mg PO BID Qty: 60 0RF cefuroxime axetil 250 mg tablet 250 mg PO BID Qty: 14 0RF Continued haloperidol 5 mg tablet 1 tab PO BID esomeprazole magnesium [Nexium] 40 mg capsule,delayed release(DR/EC) 40 mg PO DAILY@0630 (DME) pen needle, diabetic 32 gauge x 3/16 needle See Rx Instructions .Route Qty: 100 0RF Rx Instructions: As directed mirtazapine 7.5 mg tablet 7.5 mg PO BEDTIME fluoxetine 10 mg capsule 10 mg PO DAILY aspirin 81 mg tablet,delayed release (DR/EC) 81 mg PO DAILY metoprolol succinate 50 mg tablet extended release 24 hr 50 mg PO DAILY atorvastatin 20 mg tablet 20 mg PO BEDTIME (DME) insulin syringe-needle U-100 [UltiCare] 0.5 mL 30 gauge x 1/2 syringe See Rx Instructions .ROUTE DAILY Qty: 10 Rx Instructions: As directed Trulicity 0.75 mg/0.5 mL pen injector 0.75 mg subcut SA (DME) lancets [TRUEplus Lancets] 33 gauge misc See Rx Instructions .ROUTE DAILY Qty: 100 Rx Instructions: As directed (DME) pen needle, diabetic [Easy Touch] 31 gauge x 1/4 needle See Rx Instructions .ROUTE DIRECTED Qty: 100 Rx Instructions: As directed (DME) FreeStyle Lite Strips Strip See Rx Instructions .ROUTE DAILY Qty: 10 Rx Instructions: As directed famotidine [Pepcid] 20 mg tablet 20 mg PO BEDTIME Qty: 30 3RF gabapentin 100 mg capsule 100 mg PO BEDTIME insulin glargine [Lantus Solostar U-100 Insulin] 100 unit/mL (3 mL) insulin pen 20 unit subcut DAILY Held benztropine 0.5 mg tablet 0.5 mg PO BID Hold Instructions: Discuss with PCP if needed after 1 week of monitoring b lood pressure. Discontinued prazosin 2 mg capsule 2 mg PO BEDTIME PRN (Reason: High Blood Pressure) Discharge Orders: Discharge Order (Routine); Ordered 01/10/25 Ordered By: aSsha Booker Diet: Diabetic diet Activity on Discharge: As tolerated Stand Alone Forms: Patient Portal Discharge page Print Language: Bulgarian Care Plan Goals: Discontinue Prazosin Hold Benzotropin; monitor blood pressure for 1 week and discuss with PCP before restarting it Continue Flagyl and Ceftin for 1 more week Imodium as needed for diarrhea Sodium bicarbonate twice a day Follow with PCP as outpatient in 2 weeks for further check up and medications adjustment. follow with Dr Lynn [place] [facility] [place] for further work up. Health Concerns: Colitis Plan of Treatment: Antibiotics Assessment: as above
--- NOTE | 2025-01-10 16:11 | MHC.CM.PN ---
Addendum entered by Yasmeen Louise 01/10/25 16:28: Pt met with pt and her family present at beside, they state they do not want VNA services, hospitalist updated. Original Note: Pt is medically cleared for discharge home with new [facility] services, pts family will transport her home.
== END 2025-01-10 16:34 | disposition home health service (06) | DRG 254 ==
LOC: HO.ED 11:20 → HO.EDOVER 16:15 → HO.IMC 01-08 19:22
PROVIDERS: Physician Assistant Medical; Admitting Provider Internal Medicine; Emergency Provider Emergency Medicine Emergency Medical Services; PCP Internal Medicine Geriatric Medicine; Visit Provider Student in an Organized Health Care Education/Training Program
DX: K63.89 Other specified diseases of intestine (principal); E87.20 Acidosis, unspecified; E11.22 Type 2 diabetes mellitus with diabetic chronic kidney disease; E11.42 Type 2 diabetes mellitus with diabetic polyneuropathy; D50.0 Iron deficiency anemia secondary to blood loss (chronic); E78.5 Hyperlipidemia, unspecified; I12.9 Hypertensive chronic kidney disease with stage 1 through stage 4 chronic kidney disease, or unspecified chronic kidney disease; F17.210 Nicotine dependence, cigarettes, uncomplicated; N39.0 Urinary tract infection, site not specified; N18.30 Chronic kidney disease, stage 3 unspecified; I95.1 Orthostatic hypotension; K52.9 Noninfective gastroenteritis and colitis, unspecified; E86.0 Dehydration; E87.6 Hypokalemia; Z20.822 Contact with and (suspected) exposure to COVID-19; Z71.6 Tobacco abuse counseling; Z79.4 Long term (current) use of insulin; Z79.82 Long term (current) use of aspirin; Z79.85 Long-term (current) use of injectable non-insulin antidiabetic drugs; Z79.899 Other long term (current) drug therapy
CPT/HCPCS: 36430; 0241U; 36415; 70450; 71045; 72125; 74176; 80048; 80053; 80076; 81001; 81003; 82272; 82436; 82728; 82803; 82947; 83540; 83605; 83735; 83880; 84133; 84300; 84484; 85007; 85027; 85610; 85652; 86140; 86850; 86900; 86901; 86923; 87040; 87086; 87493; 87507; 89055; 93005; 97116; 97161; 99222; 99285; J0696; J1200; J1650; J1836; J2916; J3475; J3480; P9016

== ENCOUNTER → 2025-01-07 10:51 | Outpatient (BNV) | payer MEDICAID, SELFPAY | PROVIDERS: Admitting Provider Internal Medicine; Emergency Provider Emergency Medicine Emergency Medical Services; PCP Internal Medicine Geriatric Medicine; Visit Provider Internal Medicine Cardiovascular Disease | DX: R94.31 Abnormal electrocardiogram [ECG] [EKG] (principal); I95.9 Hypotension, unspecified | CPT/HCPCS: 93010 ==

== ENCOUNTER → 2025-01-07 11:27 | Outpatient (BNV) | payer MEDICAID, SELFPAY | PROVIDERS: Emergency Provider Emergency Medicine Emergency Medical Services; PCP Internal Medicine Geriatric Medicine; Visit Provider Radiology Diagnostic Radiology | DX: K63.89 Other specified diseases of intestine (principal); R55 Syncope and collapse; W19.XXXA Unspecified fall, initial encounter; R06.02 Shortness of breath | CPT/HCPCS: 70450; 71045; 72125; 74176 ==

== ENCOUNTER 2025-01-07 16:03 | Outpatient (BNV) | payer MEDICAID, SELFPAY | END 2025-01-10 14:53 | PROVIDERS: Admitting Provider Internal Medicine; Emergency Provider Emergency Medicine Emergency Medical Services; PCP Internal Medicine Geriatric Medicine; Visit Provider Radiology Diagnostic Radiology | DX: R60.1 Generalized edema (principal) | CPT/HCPCS: 74176 ==

== ENCOUNTER → 2025-01-07 16:03 | Outpatient (BNV) | payer MEDICAID, SELFPAY | PROVIDERS: Admitting Provider Internal Medicine; Emergency Provider Emergency Medicine Emergency Medical Services; PCP Internal Medicine Geriatric Medicine; Visit Provider Internal Medicine | DX: R55 Syncope and collapse (principal) | CPT/HCPCS: 99223 ==

== ENCOUNTER → 2025-01-07 16:03 | Outpatient (BNV) | payer MEDICAID, SELFPAY | PROVIDERS: Admitting Provider Internal Medicine; Emergency Provider Emergency Medicine Emergency Medical Services; PCP Internal Medicine Geriatric Medicine; Visit Provider Internal Medicine Gastroenterology | DX: K63.89 Other specified diseases of intestine (principal) | CPT/HCPCS: 99223 ==

== ENCOUNTER → 2025-01-07 16:03 | Outpatient (BNV) | payer MEDICAID, SELFPAY | PROVIDERS: Admitting Provider Internal Medicine; Emergency Provider Emergency Medicine Emergency Medical Services; PCP Internal Medicine Geriatric Medicine; Visit Provider Surgery | DX: K63.89 Other specified diseases of intestine (principal) | CPT/HCPCS: 99222 ==

== ENCOUNTER 2025-01-15 16:05 | Inpatient (IN) | payer MEDICAID, SELFPAY ==
[2025-01-15] VITALS (21 sets, daily range): BP systolic 84–134; BP diastolic 44–72; PULSE 93–108; RESP 18–37; TEMP 35.7–36.4; O2SAT 87–100; BMI 24.6; BMI 31.7
--- NOTE | ~2025-01-15 | XR_ITS ---
CLINICAL HISTORY: jovanna 1 view chest x-ray Comparison: CR - XR CHEST 1V - 01/15/25 17:11 EDT Findings: The lung apices are excluded from the [id number]. There has been interval development of scattered bilateral interstitial and airspace opacities. The latest chest x-ray at 6:53 hours shows the endotracheal tube tip 3.0 cm above the level of the sofia. Esophagogastric tube tip overlies the stomach. The heart is mildly enlarged in size. No acute fracture. IMPRESSION: 1. Endotracheal tube tip is 3.0 cm above the level of the sofia. 2. Mild cardiomegaly with interval development of scattered bilateral interstitial and airspace opacities. The lung apices are excluded from the [id number]. This document has been electronically signed by: Rachell Savage on 01/16/2025 07:19:15
--- NOTE | ~2025-01-15 | CT_ITS ---
CLINICAL HISTORY: ? PNA CT chest without contrast Comparison: CT/SR - CT ABDOMEN PELVIS WO IV CON - 01/10/25 14:53 EDT CR/SR - XR CHEST 1V - 01/07/25 11:37 EDT Findings: Heart size is upper limits of normal. Trace pericardial fluid. The visualized thyroid and mediastinum are unremarkable. Small bilateral pleural effusions. There has been interval development of extensive geographic ground-glass opacity throughout both lungs with some sparing of the peripheries of the lungs. Diffuse body wall anasarca. The bones are intact. IMPRESSION: 1. New bilateral symmetric ground-glass pulmonary opacities raises concern for pulmonary edema or diffuse atypical lung infection. Alternatively, interstitial lung disease could have this appearance although the rapidity of onset argues for pulmonary edema. 2. Small bilateral pleural effusions. This document has been electronically signed by: Aftab Gonzales MD on 01/15/2025 20:39:41
--- NOTE | ~2025-01-15 | MR_ITS ---
EXAMINATION: MR BRAIN WITHOUT CONTRAST CLINICAL INFORMATION: Persistent encephalopathy. COMPARISON: No prior MRI. CT examination 01/07/2025. TECHNIQUE: MRI of the brain was obtained using routine sequences without contrast. Examination performed on a 1.5 Krystyna Siemens high-field unit. FINDINGS: There is a tiny focus of diffusion restriction in the right occipital pole (series 6, image 12). This is correspondingly hypointense on the ADC map. No additional diffusion restriction. There is no intracranial hemorrhage, acute infarction, mass effect, or edema. Ventricles, sulci, and cisterns are normal in size and configuration for patient age. No shift of midline. No abnormal hemosiderin deposition is identified. There are no temporal lobe signal abnormalities. There are scattered punctate and minimally confluent foci of white matter T2 hyperintensity in the periventricular, subcortical, and hemispheric deep white matter. These foci are nonspecific but statistically most likely relate to small vessel ischemic changes. 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 Midline structures appear normally formed. The pituitary gland appears normal. Posterior fossa structures appear normal. Cerebellar tonsils are appropriately located. Major flow voids are preserved within the skull base. The globes and orbital contents demonstrate no abnormalities. Paranasal sinuses are clear bilaterally. Mastoids and tympanic cavities are opacified with fluid, nonspecific in the setting of intubation. Extracranial soft tissues demonstrate endotracheal tube and enteric tube coursing through the oropharynx. No suspicious bone marrow changes are evident. Atlantoaxial joint is normal. MR/MR head/brain wo con IMPRESSION: 1. There is a tiny 3 mm focus of diffusion restriction in the right occipital pole, consistent with a tiny acute/subacute infarct. No additional infarctions identified. 2. There is no intracranial hemorrhage, mass effect, or edema. 3. There are moderate changes of small vessel ischemia. There are numerous old lacunar type infarcts in the anterior gangliocapsular regions and left thalamus. 4. There is age-appropriate cerebral and cerebellar volume loss. No abnormal patterns of atrophy. 5. There are bilateral mastoid and middle ear effusions, nonspecific in the setting of intubation. Electronically signed by: Sujit Calhoun MD 01/20/2025 01:31 PM EDT
--- NOTE | ~2025-01-15 | NM_ITS ---
EXAMINATION: Nuclear medicine GI bleeding study. CLINICAL INDICATION: Bright red blood per rectum. COMPARISON: CT abdomen and pelvis without IV contrast 01/15/2025. TECHNIQUE: Following labeling of red blood cells with 25 mCi of 90 9M technetium were dictated, imaging over the abdomen was obtained up to 60 minutes. Initially 2 seconds per frame images were obtained up to 1 minute. FINDINGS: On initial 2 second images there is focal isotope area of activity seen in the splenic flexure. On subsequent images there retrograde extension of isotope activity into the redundant transverse colon in the upper pelvis. Also visualized is antegrade isotope activity in the ascending colon colon and and moderate isotope collection in the sigmoid colon. NM/NM GI bleeding IMPRESSION: Suspect focal initial isotope activity in splenic flexure. Initially there is a retrograde activity into the mid transverse colon and subsequently in the descending colon. Findings are consistent with positive GI bleed study.. Electronically signed by: Haider Jaffe MD 01/21/2025 12:16 PM EDT
--- NOTE | ~2025-01-15 | CT_ITS ---
CLINICAL HISTORY: discomfort CT abdomen and pelvis without contrast Comparison: CT/SR - CT ABDOMEN PELVIS WO IV CON - 01/10/25 14:53 EDT Findings: Please see same-day CT chest report for discussion of chest findings. There is no hydronephrosis. No ureteral stone seen. The spleen, pancreas, adrenal glands, gallbladder and liver are unremarkable. No bowel obstruction, pneumoperitoneum, or pneumatosis. There is persistent fecal loading within the right colon. Mildly air distended colon. Previously seen segmental wall thickening in the descending colon is less apparent. There is no focal transition point. Diffuse body wall anasarca. Pelvic contents unremarkable. Appendix not definitively identified. Trace ascites present. The bones are intact. IMPRESSION: 1. Previously seen wall thickening in the descending colon is less apparent on today's study. No evidence of bowel obstruction. Fecal loading in the right colon. 2. Trace ascites. Diffuse body wall anasarca. This document has been electronically signed by: Aftab Gonzales MD on 01/15/2025 20:39:32
--- NOTE | ~2025-01-15 | XR_ITS ---
CLINICAL HISTORY: SOB 1 view chest x-ray Comparison: CR/SR - XR CHEST 1V - 01/07/25 11:37 EDT Findings: Diffuse bilateral interstitial prominence. Multiple bilateral patchy airspace opacities. No pneumothorax or large pleural effusion. Stable cardiomediastinal silhouette. No acute fracture. IMPRESSION: 1. Hypoventilation. 2. Bilateral interstitial and alveolar opacities suggesting infection or edema. This document has been electronically signed by: Wendie Gomez DO on 01/15/2025 17:43:35
--- NOTE | ~2025-01-15 | CT_ITS ---
EXAMINATION: CT ABDOMEN PELVIS WITHOUT THEN WITH IV CONTRAST HISTORY: active GI bleeding; ischemic colitis COMPARISON: Comparison is made with the prior examination dated 01/30/2025. TECHNIQUE: CT scan of the abdomen and pelvis was performed before and after the intravenous administration of 80 mL Omnipaque 350. Post contrast images were obtained in the arterial and delayed phases to evaluate for GI bleeding. Coronal and sagittal reformatted images were generated and reviewed. Oral contrast material was not administered per department protocol. This CT exam was performed with one or more of the following dose reduction techniques: automated exposure control, adjustment of the mA and/or kV according to patient size, use of iterative reconstruction technique. DLP: 1507 mGy-cm ABDOMEN: LOWER CHEST: Again seen are moderate bilateral pleural effusions with adjacent compressive atelectasis. CARDIOVASCULATURE: There is left atrial enlargement. A small amount of pericardial fluid is again noted. LIVER: The liver is normal in size and contour. No liver mass is identified. The hepatic and portal veins are patent. GALLBLADDER / BILE DUCTS: The gallbladder is unremarkable. There is no intra or extrahepatic biliary ductal dilatation. SPLEEN: The spleen is normal in size. No focal splenic lesion is identified. PANCREAS: The pancreas is unremarkable in appearance. ADRENAL GLANDS: Within normal limits. KIDNEYS/RETROPERITONEUM: No renal calculi are identified. There is no hydronephrosis. No renal masses are identified. LYMPH NODES: No abdominal or pelvic lymphadenopathy. VASCULATURE: The abdominal aorta is normal in caliber. MESENTERY/PERITONEUM: There is a small amount of fluid in the left paracolic gutter. No masses. There is no free intraperitoneal gas. STOMACH: The stomach is collapsed, limiting evaluation. SMALL BOWEL: The small bowel is normal in caliber. COLON: Again seen is mild wall thickening and mucosal hyperenhancement from the splenic flexure to the rectum, suggestive of colitis. There is a large amount of stool in the ascending and proximal transverse colon. There is no pneumatosis. No contrast extravasation is seen to suggest active GI bleeding. APPENDIX: The appendix is not seen, however no inflammatory changes are seen adjacent to the cecum . URINARY BLADDER/PELVIC ORGANS: The urinary bladder is unremarkable. Again seen are calcifications of the uterus compatible with fibroids. BONES / SOFT TISSUES: There is anasarca. The bones are intact. CT/CT gi bleed abd pel wo/w IVcon IMPRESSION: 1. Anasarca and moderate bilateral pleural effusions. Small amount of free fluid in the left paracolic gutter. 2. Wall thickening and mucosal hyperenhancement of the distal colon from the splenic flexure to the rectum compatible with colitis. Large amount of stool in the ascending and proximal transverse colon. No evidence of pneumatosis. 3. No contrast extravasation is seen to suggest active GI bleeding. Electronically signed by: Tobias Yarbrough MD 02/07/2025 11:22 AM EDT
--- NOTE | ~2025-01-15 | IR_ITS ---
History: Patient with GI bleed. The patient is on pressors with a dropping H&H. She has been critically ill and presents emergently for embolization. Prior nuclear imaging suggested an origin in the left side of the abdomen. She has a contrast allergy, but has been premedicated. She also has chronic kidney disease. The risks and benefits, including injury to the kidney were discussed at length with the patient's family and consent has been obtained. Procedures performed: 1. Catheterization of the right common femoral artery under ultrasound guidance. 2. Catheterization of the superior mesenteric artery with selective angiography. 3. Catheterization of the inferior mesenteric artery with selective arteriography. 4. Catheterization of two third order branches with selective arteriography, embolization, and postembolization angiography from the inferior mesenteric artery and the embolized branches. Physician: Ari Payne MD Anesthesia: Administered by ICU staff; 9 cc 1% lidocaine was administered as local anesthesia at the right groin access site. Specimen: None Drain: None Estimated blood loss: Minimal Complications: None Procedure in detail: The patient was positioned spine on the angiography table with sterile preparation of both groins. Ultrasound of the right groin showed plaque, but a patent right common femoral artery. Under ultrasound, 1% lidocaine was injected subcutaneously and extended to the surface of the artery. A small incision was made in the skin with a #11 blade. Through the incision and under ultrasound guidance with permanent recordings and direct visualization of needle entry into the patent artery, the right common femoral artery was catheterized in a retrograde fashion. Over a wire, a Sos 2 catheter was advanced to the proximal abdominal aorta and used to catheterize the superior mesenteric artery in conjunction with a Glidewire. Superior mesenteric arteriography was performed. This did not show any active bleeding and otherwise normal arterial anatomy with in this territory. The Sos 2 catheter was used to catheterize the inferior mesenteric artery. Selective arteriography showed active hemorrhage in the left lower quadrant at the expected location of the proximal sigmoid colon. A Progreat 2.4 microcatheter was used to subsequently catheterize and embolize two third order branches that supply this territory. We embolized along both ends of the arcade to ensure that hemostasis was obtained. Coils ranged between 3 and 4 mm in size. Follow-up arteriography was performed selectively in each branch confirmed hemostasis with no further evidence of bleeding. There was a single other area inferomedially identified that showed slight pooling of blood, but this immediately washed out and appeared more compatible with a venous lin as opposed to active bleeding. If the patient were to continue to bleed, we could investigate this at a later time, but we did not want to administer excessive iodinated contrast given the patient's low GFR. We were satisfied with our result after repeating angiography in the inferior mesenteric artery as we saw no further bleeding. The catheter was removed from the right groin and hemostasis obtained with manual pressure alone. Summary: Successful embolization of active bleeding identified from branches of the inferior mesenteric artery supplying the proximal sigmoid colon. Electronically signed by: Marcio Payne MD 01/22/2025 03:55 PM EDT
--- NOTE | ~2025-01-15 | XR_ITS ---
EXAMINATION: XR CHEST CLINICAL INFORMATION: hypoxia COMPARISON: 01/18/2025 TECHNIQUE: Frontal view of the chest was obtained. FINDINGS: Endotracheal tube, right IJ central venous catheter, and enteric tube remain in good position. Cardiac silhouette is mildly prominent. Mediastinal and hilar contours are normal/stable. Lungs demonstrate hazy diffuse opacities throughout both lungs, most confluent in the right lung base. In comparison with the recent prior, there appears to have been improvement of consolidative opacities in the retrocardiac region. No definite effusion and no pneumothorax. No focal osseous or soft tissue abnormality. XR/XR chest 1V IMPRESSION: 1. Support devices in good position. 2. Improvement in airspace consolidation left base. Otherwise, stable diffuse hazy opacities throughout both lungs most confluent in the right lung base. 3. Borderline cardiac enlargement, similar. 4. No effusions or definitive pneumothorax. Electronically signed by: Sujti Calhoun MD 01/20/2025 08:00 AM EDT
--- NOTE | ~2025-01-15 | XR_ITS ---
CLINICAL HISTORY: central line placement 1 view chest x-ray Comparison: CR - XR CHEST 1V - 01/16/25 06:50 EDT Findings: Tip of endotracheal tube is 3.6 cm above sofia. Tip of enteric tube is overlying the stomach. Tip of right IJ is overlying the superior portion of right atrium. No consolidation or effusion. Enlargement of the cardiopericardial silhouette. Increase of bilateral interstitial lung markings. Mild opacity of the lung base. No acute fracture. IMPRESSION: Tip of right IJ overlying the superior portion of the right atrium. This document has been electronically signed by: Leticia Lezama MD on 01/18/2025 17:46:16
--- NOTE | ~2025-01-15 | CT_ITS ---
CLINICAL HISTORY: ongoing diarrhea CT abdomen and pelvis with contrast Comparison: CT of the abdomen and pelvis from 02/04/2025. Findings: Mild increase in worsening of the small bilateral pleural effusions with underlying atelectasis and/or consolidation. Small pericardial effusion and cardiomegaly are partially imaged. Metal of the likely coils in left lower quadrant. Small hiatal hernia. No small bowel obstruction. Low-density of the multiple small-bowel loops can be seen with enteritis. New/worsening wall thickening of the large intestine is nonspecific and may reflect colitis including transverse colon, splenic flexure, descending colon, sigmoid colon, and rectum; with new pneumatosis in the cecum. Ischemic bowel could be considered given calcified and noncalcified plaque imaged aorta and its branches. Severe stool burden present. No new lymphadenopathy. Mild wall thickening of the gallbladder due to underdistention. Mild fat deposition of the liver. Adrenal glands are unchanged. The spleen is nonenlarged. Mild-moderate volume loss of the pancreas noted. No hydronephrosis. Calcifications of the uterus likely due to fibroids by CT with a ventral fibroid measuring 1.7 cm. No adnexal soft tissue mass by CT. New worsening free fluid in the abdomen pelvis is nonspecific and may be reactive. No free intraperitoneal air. Subcutaneous edema is diffuse. Cellulitis and panniculitis also considered. Wall thickening of the urinary bladder is nonspecific and may reflect cystitis. New Carrillo catheter is in place. Degenerative changes include facet arthropathy of the imaged spine and osteoarthritis of the hips. IMPRESSION: 1. New pneumatosis in the cecum. Differential considerations include ischemic bowel. 2. Additional new and/or worsening of the wall thickening concerning for diffuse colitis. 3. No small bowel obstruction. This document has been electronically signed by: Darwin Holt MD on 01/30/2025 21:22:03
--- NOTE | ~2025-01-15 | CT_ITS ---
CLINICAL HISTORY: slurred speech CT BRAIN WITHOUT CONTRAST COMPARISON: 01/07/2025. FINDINGS: There is mild parenchymal atrophy. There is no evidence of an acute infarct or intraparenchymal hemorrhage. Patchy areas of low attenuation are noted in the subcortical and periventricular regions of the supratentorial brain which are nonspecific but most likely represent chronic small vessel ischemic disease. There is no mass effect, midline shift, or extra-axial blood. The ventricles are normal in size without evidence of hydrocephalus. The bone windows are unremarkable. There is opacification of portions of the bilateral middle ear cavities, and there is opacification of most of the bilateral mastoid air cells. No aggressive bony destructive change or acute fracture. IMPRESSION: 1. No acute disease in the brain. 2. Opacification involving portions of the bilateral middle ear cavities, and most of the bilateral mastoid air cells. No aggressive bony destructive change or acute fracture. This document has been electronically signed by: Uri Zuniga M.D. on 01/27/2025 06:00:02
--- NOTE | 2025-01-15 16:15 | ED_ITS ---
HPI - SOB/Dyspnea General Chief Complaint: Dyspnea Stated Complaint: difficulty breathing Time Seen by Provider: 01/15/25 16:21 Related Data Home Medications ?Medication ?Instructions ?Recorded ?Confirmed aspirin 81 mg tablet,delayed 81 mg PO DAILY 04/21/22 01/07/25 release atorvastatin 20 mg tablet 20 mg PO BEDTIME 04/21/22 01/07/25 benztropine 0.5 mg tablet 0.5 mg PO BID 04/21/22 01/07/25 fluoxetine 10 mg capsule 10 mg PO DAILY 04/21/22 01/07/25 insulin syringe-needle U-100 0.5 #10 ea 04/21/22 12/26/24 mL 30 gauge x 1/2 (UltiCare) metoprolol succinate 50 mg 50 mg PO DAILY 04/21/22 01/07/25 tablet,extended release 24 hr mirtazapine 7.5 mg tablet 7.5 mg PO BEDTIME 04/21/22 01/07/25 haloperidol 5 mg tablet 1 tab PO BID 05/06/22 01/07/25 gabapentin 100 mg capsule 100 mg PO BEDTIME 05/30/24 01/07/25 insulin glargine 100 unit/mL (3 20 unit subcut DAILY 08/27/24 01/07/25 mL) subcutaneous pen (Lantus Solostar U-100 Insulin) dulaglutide 0.75 mg/0.5 mL 0.75 mg subcut SA 11/14/24 01/07/25 subcutaneous pen injector ([employer] (roll.to)) blood sugar diagnostic (FreeStyle #10 ea 12/04/24 12/26/24 Lite Strips) lancets 33 gauge (TRUEplus Lancets) #100 ea 12/04/24 12/26/24 pen needle, diabetic 31 gauge x #100 ea 12/04/24 12/26/24 1/ (Easy Touch) esomeprazole magnesium 40 mg 40 mg PO DAILY@0630 12/30/24 01/07/25 capsule,delayed release (Nexium) Previous Rx's ?Medication ?Instructions ?Recorded pen needle, diabetic 32 gauge x #100 ea 05/23/23 3/16 famotidine 20 mg tablet (Pepcid) 20 mg PO BEDTIME #30 tabs 12/04/24 cefuroxime axetil 250 mg tablet 250 mg PO BID #14 tabs 01/10/25 loperamide 2 mg capsule 2 mg PO Q2H PRN Diarrhea #30 caps 01/10/25 metronidazole 500 mg tablet 500 mg PO Q12H #14 tabs 01/10/25 sodium bicarbonate 650 mg tablet 650 mg PO BID #60 tabs 01/10/25 Allergies Allergy/AdvReac Type Severity Reaction Status Date / Time iron Allergy Mild Difficulty Verified 01/15/25 16:21 Breathing Iodinated Contrast Media Allergy Unknown UNKNOWN Verified 01/15/25 16:21 [IV Dye, Iodine Containing] iodine [IODINE] Allergy Unknown RASH Verified 01/15/25 16:21 seafood Allergy Unknown Unknown Verified 01/15/25 16:21 [facility] Past Medical History Medical History Dysphagia Anxiety disorder GERD (gastroesophageal reflux disease) Migraines Asthma On beta jordyn at home Elevated cholesterol HTN (hypertension) Smoker Diabetes Depression Heartburn Surgical History Hx of left knee surgery History of tubal ligation History of esophagogastroduodenoscopy (EGD) H/O colonoscopy Hx of cholecystectomy Social History Social History Household Members: Children Housing: Apartment Housing Other:: pt states she lives in an apartment at her daughter's house Do you presently have visiting nurse or other home services: Yes (daughter is pt's MONITOR WORKER) Alcohol intake: former Comment: 1:1 sitter Patient Tobacco Use Status: Current everyday Tobacco user Tobacco use type: Cigarette Cigarettes Per Day: 3 Years Smoked: 15 Smoked in Last 30 Days: Yes e-Cigarette/Vaping Use: Never Used Second Hand Smoke Exposure: Yes Use of substances other than those prescribed or required for medical reasons: No Advance Directives: No Advance Directives Information Provided: Yes Patient : No service: No Current occupational status: disabled Physical Exam 2 Vital Signs: Vital Signs: Last Vital Signs Temp 97.2 F 01/15/25 16:18 Pulse 99 01/15/25 16:39 Resp 30 H 01/15/25 16:52 BP 84/49 L 01/15/25 16:18 Pulse Ox 92 01/15/25 16:39 O2 Del Method BiPAP 01/15/25 16:39 FiO2 28 01/15/25 16:39 BMI result Body Mass Index 24.6 Course Course Course Narrative: This is a Rapid Medical Exam performed in triage by Maricarmen Sin PA-C. Full HPI, ROS and PE to be performed by primary ED provider. 59 yo female with PMHx of orthostatic hypotension, T2DM, HTN, HLD, CKD 3, presenting to the ED c/o SOB accompanied by daughter. Daughter explains patient was discharged Monday from [facility] for colitis. Patient has been experiencing leg swelling for 4 days and SOB for 3 days, with SOB worsening since Monday, using more pillows at night due to symptoms. Denies CP, nausea, vomiting, cough, PE: 47% on RA- 91% on 15L non-rebreather, accessory muscle use for breathing/increased work of breathing Plan: Labs, EKG, troponin, CXR, VBG, BNP, lactic, blood cultures, UA, viral swabs, Medical Decision Making Lab Data 01/15/25 16:37 01/15/25 16:37 Labs: Lab Results 01/15/25 01/15/25 Range/Units 16:37 16:43 WBC 7.1 (4.8-10.8) X10*3/uL RBC 3.01 L (4.20-5.50) X10*6/uL Hgb 8.5 L (12.0-16.0) g/dl Hct 24.6 L (37.0-47.0) % MCV 81.7 (80.0-98.0) fL MCH 28.2 (27.0-33.0) pg MCHC 34.6 (31.0-35.0) g/dl RDW 16.6 H (11.0-16.0) % Plt Count 462 H D (160-400) X10*3/uL MPV 9.5 (9.4-12.3) fL Immature Gran % (Auto) Cancelled Neut % (Auto) Cancelled Lymph % (Auto) Cancelled Owsley % (Auto) Cancelled Eos % (Auto) Cancelled Baso % (Auto) Cancelled Lymph # (Auto) Cancelled [place]ley # (Auto) Cancelled Eos # (Auto) Cancelled Baso # (Auto) Cancelled Abs Immat Gran (auto) Cancelled Absolute Neuts (auto) Cancelled Absolute Nucleated RBC 0.000 (0.0-0.012) X10*3/uL Nucleated RBC % (auto) 0.0 (0.0-0.2) /100WBC Neutrophils % (Manual) 35 L (45-73) % Band Neutrophils % 46 H (3-5) % Lymphocytes % (Manual) 14 L (20-40) % Monocytes % (Manual) 2 (2-11) % Metamyelocytes % 3 % Abs Neuts (Manual) 5.8 (2.0-8.3) X10*3/uL Lymphocytes # (Manual) 1.0 L (1.2-4.9) X10*3/uL Monocytes # (Manual) 0.1 (0.1-1.2) X10*3/uL Metamyelocytes # 0.2 X10*3/uL Toxic Vacuolation PRESENT Platelet Estimate INCREASED (NORMAL) Plt Morphology Comment NORMAL RBC Morphology NOTED Acanthocytes (Spur) 3+ (>5) /OIF Schistocytes 1+ (0-2) /OIF PT 22.4 H D (10.9-12.4) SEC INR 1.9 H (0.9-1.1) VBG pH 7.26 L (7.32-7.43) VBG pCO2 35 mmHg VBG pO2 52 mmHg VBG HCO3 16 L (22-26) mmol/L VBG O2 Saturation 72.0 % VBG Base Excess -9.7 mmol/L Sodium 138 (135-145) mmol/L Potassium 3.6 (3.3-5.1) mmol/L Chloride 111 H (96-108) mmol/L Carbon Dioxide 16 L (22-29) mmol/L Anion Gap 15 (12-20) BUN 25 H (9-16) mg/dL Creatinine 1.20 (0.5-1.4) mg/dL Estim Creat Clear Calc 44.0 Estimated GFR 46 Random Glucose 190 H (60-115) mg/dL Lactic Acid 2.6 H* (0.5-2.0) mmol/L Calcium 7.5 L (8.4-10.2) mg/dL Magnesium 2.0 (1.6-2.6) mg/dL Total Bilirubin 0.5 (0.0-1.0) mg/dL Direct Bilirubin 0.3 (0.0-0.5) mg/dL AST 30 (5-31) U/L ALT < 6 (0-31) U/L Alkaline Phosphatase 136 H (39-117) U/L Troponin I High Sens < 2.7 D (<3.5-17.0) ng/L B-Natriuretic Peptide 444 H (<100) pg/mL Total Protein 4.7 L (6.5-8.0) g/dL Albumin 1.9 L (3.5-5.0) g/dL Procedures Procedure Narrative Procedure Narrative: EMERGENCY ULTRASOUND INTERPRETATION-Limited Echocardiography [This study was ordered, performed, and interpreted by myself. The study reveals: Impression: NORMAL LV FUNCTION, NO RV DYSFUNCTION, NO PERICARDIAL EFFUSION] [Emergent Cardiac for Indication: Views Used: PLAX, PSSA, A4, SX, IVC Pericardial Effusion/Tamponade Findings: TRACE RV Dilation (> LV diam in 4ch apical): NONE Global LV Fxn: NORMAL LUNGS: BILATERAL B LINES TO THE APICES Performed by: MD Douglas Images were stored on EMR through [employer] image archive software. CPT:62526] __ Ultrasound Guided Peripheral Intravenous Catheter Placement Date/Time: 01/15/2025, for 40 17:00 Indication: Intravenous Access Location: [R/L] arm Provider: Self I was approached by nursing staff and informed that multiple unsuccessful attempts had been made to establish IV access in the patient. The patients arm was surveyed with the ultrasound for verification of vessel collapsibility, patency, depth and caliber, as well as identification of nearby structures. The target area was prepped with chlorhexidine. A tourniquet was placed proximally on the extremity. Under real-time ultrasound guidance, an 20 G 2.25 inch AccuCath nontunneled catheter was advanced into the target vein. Dark blood was visualized in the flash chamber. The catheter was easily advanced into the vein. The catheter was evacuated of air and flushed with sterile saline. The catheter was secured in place with a tegaderm. The patient tolerated the procedure well and there were no complications. Estimated Blood Loss: 1mL Total Time for Procedure: 5min Critical Care Time Critical Care Time Critical Care Time: Yes Discharge Plan Discharge Prescriptions: No Action haloperidol 5 mg tablet 1 tab PO BID esomeprazole magnesium [Nexium] 40 mg capsule,delayed release(DR/EC) 40 mg PO DAILY@0630 (DME) pen needle, diabetic 32 gauge x 3/16 needle See Rx Instructions .Route Qty: 100 0RF Rx Instructions: As directed loperamide 2 mg Capsule 2 mg PO Q2H PRN (Reason: Diarrhea) Qty: 30 0RF metronidazole 500 mg Tablet 500 mg PO Q12H Qty: 14 0RF sodium bicarbonate 650 mg Tablet 650 mg PO BID Qty: 60 0RF cefuroxime axetil 250 mg tablet 250 mg PO BID Qty: 14 0RF mirtazapine 7.5 mg tablet 7.5 mg PO BEDTIME fluoxetine 10 mg capsule 10 mg PO DAILY aspirin 81 mg tablet,delayed release (DR/EC) 81 mg PO DAILY metoprolol succinate 50 mg tablet extended release 24 hr 50 mg PO DAILY benztropine 0.5 mg tablet 0.5 mg PO BID atorvastatin 20 mg tablet 20 mg PO BEDTIME (DME) insulin syringe-needle U-100 [UltiCare] 0.5 mL 30 gauge x 1/2 syringe See Rx Instructions .ROUTE DAILY Qty: 10 Rx Instructions: As directed Trulicity 0.75 mg/0.5 mL pen injector 0.75 mg subcut SA (DME) lancets [TRUEplus Lancets] 33 gauge misc See Rx Instructions .ROUTE DAILY Qty: 100 Rx Instructions: As directed (DME) pen needle, diabetic [Easy Touch] 31 gauge x 1/4 needle See Rx Instructions .ROUTE DIRECTED Qty: 100 Rx Instructions: As directed (DME) FreeStyle Lite Strips Strip See Rx Instructions .ROUTE DAILY Qty: 10 Rx Instructions: As directed famotidine [Pepcid] 20 mg tablet 20 mg PO BEDTIME Qty: 30 3RF gabapentin 100 mg capsule 100 mg PO BEDTIME insulin glargine [Lantus Solostar U-100 Insulin] 100 unit/mL (3 mL) insulin pen 20 unit subcut DAILY Print Language: Korean Sepsis Bolus Exclusion Sepsis Bolus Exclusion CHF/Renal Failure Date of Occurrence: 01/15/25 Time of Occurrence:: 16:45 This patient met severe sepsis criteria due to the following condition(s):: H ypotension In my clinical judgement the administration of 30 ml/kg of crystalloid would be detrimental to this patient due to the patient's following conditions:: NYHA class III or IV Heart Failure(symptoms with low exertion or rest) Replace the 30 mls/kg with (Zero amount not acceptable and all fluids for severe sepsis must be given at GREATER than 125 mls/hr) *Note: One of the whatley must be documented Crystalloids amount given in mls: (rate must be at least 150cc/hr): 250
--- NOTE | 2025-01-15 16:23 | ECG_ITS ---
Test Reason : Shortness of breath Blood Pressure : */* mmHG Vent. Rate : 94 BPM Atrial Rate : 94 BPM P-R Int : 134 ms QRS Dur : 90 ms QT Int : 386 ms P-R-T Axes : 43 9 30 degrees QTcB Int : 482 ms Normal sinus rhythm Normal ECG When compared with ECG of 07-Jan-2025 11:04, No significant change was found Referred By: Maricarmen Sin Electronically Signed By: ISABEL STACY
--- NOTE | 2025-01-15 16:40 | PC.RT ---
Pt came in from triage, per RN, SATs in the 40's . Upon arrival to ER, pt was tachypneic and on 15L NRB, SATs 93%. L/S clear bilateral w/ crackles in the bases. Pitting edema to lower extremities. Pt placed on bipap 16/8 28% as documented. FIO2 titrated as tolerated. Will continue to monitor pt.
--- NOTE | 2025-01-15 16:45 | ED.SOB ---
HPI - SOB/Dyspnea General Chief Complaint: Dyspnea Stated Complaint: difficulty breathing Time Seen by Provider: 01/15/25 16:21 History of Present Illness ED Provider: Papa Cole MD HPI Narrative: 59-year-old female with recent admission here for hypotension felt to be related to dehydration/diarrhea. She has chronic kidney disease diabetes she was generally well at home although or appetite head been suppressed. Daughter who is at the bedside lives with her said she became significantly short of breath. She arrived at triage hypotensive severely hypoxic. She had crackles bilaterally was placed on BiPAP 2 large-bore IVs obtained immediately. Sepsis is on the differential upon arrival due to SIRS criteria though no fever. Related Data Home Medications ?Medication ?Instructions ?Recorded ?Confirmed aspirin 81 mg tablet,delayed 81 mg PO DAILY 04/21/22 01/15/25 release benztropine 0.5 mg tablet 0.5 mg PO BID 04/21/22 01/15/25 insulin syringe-needle U-100 0.5 #10 ea 04/21/22 12/26/24 mL 30 gauge x 1/2 (UltiCare) haloperidol 5 mg tablet 1 tab PO BID 05/06/22 01/15/25 gabapentin 100 mg capsule 100 mg PO BEDTIME 05/30/24 01/15/25 insulin glargine 100 unit/mL (3 20 unit subcut BEDTIME 08/27/24 01/15/25 mL) subcutaneous pen (Lantus Solostar U-100 Insulin) blood sugar diagnostic (FreeStyle #10 ea 12/04/24 12/26/24 Lite Strips) lancets 33 gauge (TRUEplus Lancets) #100 ea 12/04/24 12/26/24 pen needle, diabetic 31 gauge x #100 ea 12/04/24 12/26/24/ (Easy Touch) esomeprazole magnesium 40 mg 40 mg PO DAILY@0630 12/30/24 01/15/25 capsule,delayed release (Nexium) Previous Rx's ?Medication ?Instructions ?Recorded pen needle, diabetic 32 gauge x #100 ea 05/23/23/ famotidine 20 mg tablet (Pepcid) 20 mg PO BEDTIME #30 tabs 12/04/24 cefuroxime axetil 250 mg tablet 250 mg PO BID #14 tabs 01/10/25 loperamide 2 mg capsule 2 mg PO Q2H PRN Diarrhea #30 caps 01/10/25 metronidazole 500 mg tablet 500 mg PO Q12H #14 tabs 01/10/25 sodium bicarbonate 650 mg tablet 650 mg PO BID #60 tabs 01/10/25 Allergies Allergy/AdvReac Type Severity Reaction Status Date / Time iron Allergy Mild Difficulty Verified 01/15/25 16:21 Breathing Iodinated Contrast Media Allergy Unknown UNKNOWN Verified 01/15/25 16:21 [IV Dye, Iodine Containing] iodine [IODINE] Allergy Unknown RASH Verified 01/15/25 16:21 seafood Allergy Unknown Unknown Verified 01/15/25 16:21 [facility] Past Medical History Medical History Dysphagia Anxiety disorder GERD (gastroesophageal reflux disease) Migraines Asthma On beta jordyn at home Elevated cholesterol HTN (hypertension) Smoker Diabetes Depression Heartburn Surgical History Hx of left knee surgery History of tubal ligation History of esophagogastroduodenoscopy (EGD) H/O colonoscopy Hx of cholecystectomy Social History Social History (Updated 01/15/25 @ 22:40 by Tom Barreto RN) Household Members: Children Household Members Other:: Daughter Housing: Apartment Housing Other:: pt states she lives in an apartment at her daughter's house Do you presently have visiting nurse or other home services: Yes (Daughter is CHEMISTRY DEPARTMENT CHAIR) Alcohol intake: former Comment: 1:1 sitter Patient Tobacco Use Status: Current everyday Tobacco user Tobacco use type: Cigarette Cigarette Packs Per Day: 1 Cigarettes Per Day: 20.0 Years Smoked: 15 Smoked in Last 30 Days: Yes e-Cigarette/Vaping Use: Never Used Second Hand Smoke Exposure: Yes Use of substances other than those prescribed or required for medical reasons: No Have you been hit, kicked, punched, or otherwise hurt by someone within the past year? If so, by whom?: No Do you feel safe in your current relationship?: No Current Relationship Is there a partner from a previous relationship who is making you feel unsafe now?: No Are you made to feel afraid or neglected: No Advance Directives: No Advance Directives Information Provided: Yes Do you have a plan to hurt others: No Plan Recently lost weight without trying: Unsure Eating poorly because of decreased appetite: Yes Nutrition Risks: Poor intake 0-25% >4 days Patient : No : No service: No Current occupational status: disabled Physical Exam Vital Signs: Vital Signs: Last Vital Signs Temp 97.3 F 01/15/25 23:56 Pulse 105 H 01/16/25 00:06 Resp 40 H 01/16/25 00:18 BP 134/70 01/16/25 00:06 Pulse Ox 89 L 01/15/25 23:56 O2 Del Method High Flow Nasal C annula 01/15/25 23:56 O2 Flow Rate 50 01/15/25 23:56 FiO2 50 01/15/25 23:56 BMI result Body Mass Index 24.6 Medications Administered Generic Name Dose Route Start Last Admin Trade Name Freq PRN Reason Stop Dose Admin Heparin Sodium (Porcine) 5,000 unit 01/15/25 20:45 01/15/25 21:02 Heparin Sodium,Porcine 5,000 Unit/Ml Vial SUBCUT Not Given Q12H SHAWN Norepinephrine Bitartrate 8 mg in 250 mls @ 0 mls/hr 01/15/25 20:30 01/16/25 00:06 Levophed IVCONT 0.03 mcg/kg/min .Q0M SHAWN 3.55 mls/hr Titration Protocol Per Protocol Furosemide 200 mg/ Sodium 100 mls @ 5 mls/hr 01/15/25 21:00 01/15/25 23:20 Chloride IVCONT 10 mg/hr .Q20H SHAWN 5 mls/hr Infusion 10 MG/HR Piperacillin Sod/Tazobactam 50 mls @ 100 mls/hr 01/15/25 23:30 01/16/25 00:14 Sod 3.375 gm/ Sodium Chloride IV Infused Q6H SHAWN Infusion Albumin Human 100 mls @ 133.333 mls/hr 01/15/25 23:45 01/16/25 00:13 Kedbumin 25 % IV 01/16/25 01:29 133.33 mls/hr Q1H SHAWN Administration Morphine Sulfate 2 mg 01/15/25 20:19 01/16/25 00:18 Morphine Sulfate 2 Mg/Ml Cartridge IVPUSH 2 mg Q4H PRN Administration distress Protocol Discontinued Medications Generic Name Dose Route Start Last Admin Trade Name Freq PRN Reason Stop Dose Admin Famotidine 20 mg 01/15/25 21:00 01/15/25 20:47 Famotidine/Pf 20 Mg/2 Ml Vial IVPUSH 20 mg BID SHAWN Administration Albumin Human 100 mls @ 133.333 mls/hr 01/15/25 17:45 01/15/25 20:06 Kedbumin 25 % IV 01/15/25 19:29 Infused Q1H SHAWN Infusion Piperacillin Sod/Tazobactam 50 mls @ 100 mls/hr 01/15/25 17:56 01/15/25 18:47 Sod 3.375 gm/ Sodium Chloride IV 01/15/25 18:25 Infused ONCE ONE Infusion Vancomycin HCl 1,500 mg/ 500 mls @ 333.333 mls/hr 01/15/25 18:42 01/15/25 20:48 Sodium Chloride IV 01/15/25 20:11 Infused ONCE ONE Infusion Albumin Human 100 mls @ 133.333 mls/hr 01/15/25 20:30 01/15/25 22:57 Kedbumin 25 % IV 01/15/25 22:14 Infused Q1H SHAWN Infusion Insulin Human Lispro 0 unit 01/15/25 21:00 01/15/25 21:00 Insulin Lispro 100 Unit/Ml 3 Ml Vial SUBCUT Not Given Q6H SHAWN Protocol Potassium Chloride 40 meq 01/15/25 23:34 01/15/25 23:59 Potassium Chloride Er 20 Meq Tab.Er.Prt PO 01/15/25 23:35 40 meq ONCE ONE Administration Sodium Bicarbonate 100 meq 01/15/25 23:33 01/16/25 00:10 Sodium Bicarbonate 8.4% 50 Meq/50 Ml Syringe IVPUSH 01/15/25 23:34 100 meq ONCE ONE Administration Medical Decision Making Medical Decision Making MDM Narrative: This is a 59-year-old female with CKD who comes in with acute abrupt onset of shortness of breath she was profoundly hypoxic on arrival and hypotensive with 1 hypotensive measurement. She had a recent admission few weeks ago presumed diarrheal induced hypovolemia. patient was alert awake but ill-appearing placed on non-rebreather and subsequently BiPAP shortly after my initial evaluation. Bedside echo reveals trace pericardial effusion but grossly normal LV function. No RV dilation. She had B-lines throughout all lung whatley and crackles on lung exam suggesting acute pulmonary edema. Possibly decompensated diastolic heart failure given the LV function versus bilateral pneumonia. She had no leukocytosis or fever but met SIRS criteria and septic shock criteria on arrival we time this at 16:45 and the patient given the lung ultrasound and clinical examination had bolus exclusion criteria we therefore gave albumin see above. She had no chest pain or abdominal pain or hemoptysis. We covered her with broad-spectrum antibiotics presuming possible bilateral pneumonia given the bandemia. Working diagnosis multifocal pneumonia versus acute decompensated HFpEF or ILD or ARDS. We provided Lasix, BiPAP settings per Respiratory documentation. No troponin elevation. Acute on chronic anemia lab review. Consult Healthcare Provider Management of the patient was discussed with: Hospitalist Contact Representative Lab Data MDM Lab Attestation statement: I reviewed the patient's lab results. bicarb of 15 possibly lactic acidosis versus CO2 retention. Mild hypocalcemia can be corrected during admission. Mild acute on chronic anemia could be secondary to CKD, appears normocytic 01/15/25 20:45 01/15/25 20:45 Labs: Lab Results 01/15/25 01/15/25 01/15/25 Range/Units 16:37 16:38 16:43 WBC 7.1 (4.8-10.8) X10*3/uL RBC 3.01 L (4.20-5.50) X10*6/uL Hgb 8.5 L (12.0-16.0) g/dl Hct 24.6 L (37.0-47.0) % MCV 81.7 (80.0-98.0) fL MCH 28.2 (27.0-33.0) pg MCHC 34.6 (31.0-35.0) g/dl RDW 16.6 H (11.0-16.0) % Plt Count 462 H D (160-400) X10*3/uL MPV 9.5 (9.4-12.3) fL Immature Gran % (Auto) Cancelled Neut % (Auto) Cancelled Lymph % (Auto) Cancelled [place] % (Auto) Cancelled Eos % (Auto) Cancelled Baso % (Auto) Cancelled Lymph # (Auto) Cancelled [place] # (Auto) Cancelled Eos # (Auto) Cancelled Baso # (Auto) Cancelled Abs Immat Gran (auto) Cancelled Absolute Neuts (auto) Cancelled Absolute Nucleated RBC 0.000 (0.0-0.012) X10*3/uL Nucleated RBC % (auto) 0.0 (0.0-0.2) /100WBC Neutrophils % (Manual) 35 L (45-73) % Band Neutrophils % 46 H (3-5) % Lymphocytes % (Manual) 14 L (20-40) % Monocytes % (Manual) 2 (2-11) % Metamyelocytes % 3 % Abs Neuts (Manual) 5.8 (2.0-8.3) X10*3/uL Lymphocytes # (Manual) 1.0 L (1.2-4.9) X10*3/uL Monocytes # (Manual) 0.1 (0.1-1.2) X10*3/uL Metamyelocytes # 0.2 X10*3/uL Toxic Vacuolation PRESENT Platelet Estimate INCREASED (NORMAL) Plt Morphology Comment NORMAL RBC Morphology NOTED Acanthocytes (Spur) 3+ (>5) /OIF Schistocytes 1+ (0-2) /OIF PT 22.4 H D (10.9-12.4) SEC INR 1.9 H (0.9-1.1) VBG pH 7.26 L (7.32-7.43) VBG pCO2 35 mmHg VBG pO2 52 mmHg VBG HCO3 16 L (22-26) mmol/L VBG O2 Saturation 72.0 % VBG Base Excess -9.7 mmol/L Sodium 138 (135-145) mmol/L Potassium 3.6 (3.3-5.1) mmol/L Chloride 111 H (96-108) mmol/L Carbon Dioxide 16 L (22-29) mmol/L Anion Gap 15 (12-20) BUN 25 H (9-16) mg/dL Creatinine 1.20 (0.5-1.4) mg/dL Estim Creat Clear Calc 44.0 Estimated GFR 46 Random Glucose 190 H (60-115) mg/dL Lactic Acid 2.6 H* (0.5-2.0) mmol/L Lactic Acid F/U @ 2Hr (0.5-2.0) mmol/L Calcium 7.5 L (8.4-10.2) mg/dL Magnesium 2.0 (1.6-2.6) mg/dL Total Bilirubin 0.5 (0.0-1.0) mg/dL Direct Bilirubin 0.3 (0.0-0.5) mg/dL AST 30 (5-31) U/L ALT < 6 (0-31) U/L Alkaline Phosphatase 136 H (39-117) U/L Troponin I High Sens < 2.7 D (<3.5-17.0) ng/L B-Natriuretic Peptide 444 H (<100) pg/mL Total Protein 4.7 L (6.5-8.0) g/dL Albumin 1.9 L (3.5-5.0) g/dL Influenza Type A (PCR) NEGATIVE (Negative) Influenza Type B (PCR) NEGATIVE (Negative) RSV RNA Qual (PCR) NEGATIVE (Negative) SARS-CoV-2 RNA (RT-PCR) NEGATIVE (Negative) 01/15/25 Range/Units 19:08 WBC (4.8-10.8) X10*3/uL RBC (4.20-5.50) X10*6/uL Hgb (12.0-16.0) g/dl Hct (37.0-47.0) % MCV (80.0-98.0) fL MCH (27.0-33.0) pg MCHC (31.0-35.0) g/dl RDW (11.0-16.0) % Plt Count (160-400) X10*3/uL MPV (9.4-12.3) fL Immature Gran % (Auto) Neut % (Auto) Lymph % (Auto) [place] % (Auto) Eos % (Auto) Baso % (Auto) Lymph # (Auto) [place] # (Auto) Eos # (Auto) Baso # (Auto) Abs Immat Gran (auto) Absolute Neuts (auto) Absolute Nucleated RBC (0.0-0.012) X10*3/uL Nucleated RBC % (auto) (0.0-0.2) /100WBC Neutrophils % (Manual) (45-73) % Band Neutrophils % (3-5) % Lymphocytes % (Manual) (20-40) % Monocytes % (Manual) (2-11) % Metamyelocytes % % Abs Neuts (Manual) (2.0-8.3) X10*3/uL Lymphocytes # (Manual) (1.2-4.9) X10*3/uL Monocytes # (Manual) (0.1-1.2) X10*3/uL Metamyelocytes # X10*3/uL Toxic Vacuolation Platelet Estimate (NORMAL) Plt Morphology Comment RBC Morphology Acanthocytes (Spur) /OIF Schistocytes /OIF PT (10.9-12.4) SEC INR (0.9-1.1) VBG pH (7.32-7.43) VBG pCO2 mmHg VBG pO2 mmHg VBG HCO3 (22-26) mmol/L VBG O2 Saturation % VBG Base Excess mmol/L Sodium (135-145) mmol/L Potassium (3.3-5.1) mmol/L Chloride (96-108) mmol/L Carbon Dioxide (22-29) mmol/L Anion Gap (12-20) BUN (9-16) mg/dL Creatinine (0.5-1.4) mg/dL Estim Creat Clear Calc Estimated GFR Random Glucose (60-115) mg/dL Lactic Acid (0.5-2.0) mmol/L Lactic Acid F/U @ 2Hr 1.2 (0.5-2.0) mmol/L Calcium (8.4-10.2) mg/dL Magnesium (1.6-2.6) mg/dL Total Bilirubin (0.0-1.0) mg/dL Direct Bilirubin (0.0-0.5) mg/dL AST (5-31) U/L ALT (0-31) U/L Alkaline Phosphatase (39-117) U/L Troponin I High Sens (<3.5-17.0) ng/L B-Natriuretic Peptide (<100) pg/mL Total Protein (6.5-8.0) g/dL Albumin (3.5-5.0) g/dL Influenza Type A (PCR) (Negative) Influenza Type B (PCR) (Negative) RSV RNA Qual (PCR) (Negative) SARS-CoV-2 RNA (RT-PCR) (Negative) Independent Interpretation I performed an independent interpretation of an: EKG ( sinus rhythm rate 94 QTC 482 no acute ischemic changes) and Plain X-Ray ( x-ray with bilateral infiltrates) Radiology Impression Discussion of test interpretation with radiology: I have reviewed the radiologist's reading. Procedures Procedure Narrative Procedure Narrative: EMERGENCY ULTRASOUND INTERPRETATION-Limited Echocardiography [This study was ordered, performed, and interpreted by myself. The study reveals: Impression: NORMAL LV FUNCTION, NO RV DYSFUNCTION, NO PERICARDIAL EFFUSION] [Emergent Cardiac for Indication: Views Used: PLAX, PSSA, A4, SX, IVC Pericardial Effusion/Tamponade Findings: trace RV Dilation (> LV diam in 4ch apical): NONE Global LV Fxn: NORMAL IVC Dilation and Resp Variation: NORMAL Performed by: MD Douglas CPT:[id number]] Critical Care Time Critical Care Time Critical Care Time: Yes Total Critical Care Time: 50 Attestation: ED Critical Care: Authorized and Performed by: Papa Cole MD Total critical care time: Approximately Fifty Due to a high probability of clinically significant, life threatening deterioration, the patient required my highest level of preparedness to intervene emergently and I personally spent this critical care time directly and personally managing the patient. This critical care time included obtaining a history; examining the patient; pulse oximetry; ordering and review of studies; arranging urgent treatment with development of a management plan; evaluation of patient's response to treatment; frequent reassessment; and, discussions with other providers. This critical care time was performed to assess and manage the high probability of imminent, life-threatening deterioration that could result in multi-organ failure. It was exclusive of separately billable procedures and treating other patients and teaching time. Discharge Plan Discharge Clinical Impression: Dyspnea Patient Disposition: Admitted As Inpatient Interventions: Admission Worksheet (ED) Last Done: 01/15/25 20:14 Discharge Date/Time: 01/15/25 20:15 Sepsis Bolus Exclusion Sepsis Bolus Exclusion CHF/Renal Failure Date of Occurrence: 01/15/25 Time of Occurrence:: 16:45 This patient met severe sepsis criteria due to the following condition(s):: Hypotension In my clinical judgement the administration of 30 ml/kg of crystalloid would be detrimental to this patient due to the patient's following conditions:: NYHA class III or IV Heart Failure(symptoms with low exertion or rest) Other (must be specific):: bilateral B-lines presumed decompensated diastolic heart failure with justin Replace the 30 mls/kg with (Zero amount not acceptable and all fluids for severe sepsis must be given at GREATER than 125 mls/hr) *Note: One of the whatley must be documented Colloids amount given in mls:: 250 At a rate of (must be > 125 cchr):: 150
[2025-01-15 16:46] LABS: Venous Blood Gas Refer to POC result
[2025-01-15 16:47] LABS: Hematocrit 24.6 % (37.0-47.0); Hemoglobin 8.5 g/dl (12.0-16.0); Mean Corpuscular HGB Conc 34.6 g/dl (31.0-35.0); Mean Corpuscular Hemoglobin 28.2 pg (27.0-33.0); Mean Corpuscular Volume 81.7 fL (80.0-98.0); Mean Platelet Volume 9.5 fL (9.4-12.3); Platelet Count 462 X10*3/uL (160-400); Red Blood Count 3.01 X10*6/uL (4.20-5.50); Red Cell Distribution Width 16.6 % (11.0-16.0)
[2025-01-15 16:47] LABS: VBG Base Excess -9.7 mmol/L; VBG HCO3 16 mmol/L (22-26); VBG pCO2 35 mmHg; VBG pH 7.26 (7.32-7.43); VBG pO2 52 mmHg
[2025-01-15 16:49] LABS: WBC ABN SCTR FOR CBC 1
[2025-01-15 16:55] LABS: INTERNATIONAL NORM RATIO 1.9 (0.9-1.1); Prothrombin Time 22.4 SEC (10.9-12.4)
--- OUTSIDE RECORDS SUMMARY | 2025-01-15 16:56 | XMS_ITS ---
Author Organization [employer] Address [address] [facility] [address] [place] [address] Care Team Providers Care Boat Washer Name Role Phone Name, Nolan PADILLA Primary Care Provider [phone] CHW Complex Status:Outreach In Progress (Enrolling) Start date:12/31/2024 Enrollment reason:ADT Feed Overview ADT- Pt admitted to [facility] on 12/29/24 for major depressive d/o. Case Team Name Relationship Phone Courtney Liu (Responsible Staff) [phone] Continued Care and Services Coordination
--- OUTSIDE RECORDS SUMMARY | 2025-01-15 16:56 | XMS_ITS | Encounter Summary ---
Author Organization [employer] Address [address] [facility] [address] [place] [address] Care Team Providers Care Phosphoric Acid Operator Name Role Phone Name, Nolan PADILLA Primary Care Provider [phone] Reason for Visit * Reason Onset Date Comments Nurse Triage 07/27/2023 Encounter Details Date Type Department Care Team (Late st Contact Info) Description 07/27/2023 Telephone [facility] [address] [place], [place] [phone] Name, MD Nolan [address] [place] [address] Nurse Triage Social History Tobacco Use Types [...] - 07/27/2023 4:38 PM EST T/C to [phone] to daughter for below message, daughter verbally [...] become worse * Telephone Encounter - Alissa Faraz - 07/27/2023 11:59 AM EST Symptom: Itching - No Rash ( Bottom of feet) Outcome: Schedule an appointment to be seen within 24 hours Reason: Caller denied all higher acuity questions The caller accepted this outcome Nicaraguan Speaker documented in this encounter Plan of Treatment Upcoming Encounters Date Type Department Care Team (Late st Contact Info) Description 01/17/2025 9:30 AM EDT Office Visit [facility] [address] [place] [phone] NameNolan MD [address] [place] [phone] 03/07/2025 10:15 AM EDT Office Visit [address] [address] Name, MD Nolan [address] [place] [phone] documented as of this encounter Visit Diagnoses Not on filedocumented in this encounter Additional Health Concerns Assessment Noted Time PHQ-9 Depression Total Score: 7 04/18/20 23 10:20 AM EDT documented as of this encounter Care Teams Phosphoric Acid Operator Relationship Specialty Start Date End Date NameNolan MD [address] [place] [phone] PCP - General Family Medicine 06/13/18 documented as of this encounter
--- OUTSIDE RECORDS SUMMARY | 2025-01-15 16:56 | XMS_ITS | Encounter Summary ---
Author Organization [employer] Address [address] [place] [address] [address] [place] [address] Care Team Providers Care Admissions Dean Name Role Phone Name, Nolan PADILLA Primary Care Provider [phone] Reason for Visit * Reason Comments Med Refill Encounter Details Date Type Department Care Team (Late st Contact Info) Description 04/25/2023 Refill [facility] [address] [place], [place] [phone] Marlys Romero FNP [address] [place] [address] [place] [address] Type 2 diabetes mellitus without complication, unspecified whether jail insulin use ([facility]) Social History Tobacco Use Types Packs/Day Years [...] Description 01/17/2025 9:30 AM EDT Office Visit [facility] [address] [place] [phone] Name, MD Nolan [address] [place], [place] [phone] 03/07/2025 10:15 AM EDT Office Visit [facility] [address] [facility] [place] [address] Name, MD Nolan [address] [facility] [place] [address] documented as of this encounter Visit Diagnoses Diagnosis Type 2 diabetes mellitus without complication, unspecified whether jail insulin use ([facility]) documented in this encounter Additional Health Concerns Assessment Noted Time PHQ-9 Depression Total Score: 7 04/18/20 10:20 AM EDT documented as of this encounter Care Teams Admissions Dean Relationship Specialty Start Date End Date Name, MD Nolan [address] [facility] [place] [address] PCP - General Family Medicine 06/13/18 documented as of this encounter
--- OUTSIDE RECORDS SUMMARY | 2025-01-15 16:56 | XMS_ITS ---
Author Organization [email or web address] Address [address] [facility] [address] [place] [address] Care Team Providers Care Manager Drilling Name Role Phone Name, Nolan PADILLA Primary Care Provider [phone] CM Complex Status:Identified (Enrolling) Start date:12/31/2024 Enrollment reason:ADT Feed Overview ADT- Pt admitted to [facility] on 12/29/24 for major depressive d/o. Case Team Name Relationship Phone Chyna Kelley RN Registered Nurse(Responsible S taff) [phone] Continued Care and Services Coordination
--- OUTSIDE RECORDS SUMMARY | 2025-01-15 16:57 | XMS_ITS | Clinical Summary ---
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 90 tablet 3 024 Active Lantus SoloStar 100 UNIT/ML penIndications:T ype 2 diabetes mellitus with other specified complication, with long-term current use of insulin ([facility]) Inject 30 Units under the skin at bedtime. Decrease to 20 units once she starts on Trulicity 3 mL 11 024 Active docusate sodium (Colace) 100 MG capsule TAKE 2 TABLETS BY MOUTH EVERY DAY AT BEDTIME 024 Active pen needle 31G x 6 mm miscIndications: Type 2 diabetes mellitus with hyperglycemia, without long-term current use of insulin ([facility]) USE DIRECTED TO INJECT INSULIN 100 each 1 025 Active atorvastatin (Lipitor) 20 MG tabletIndication s:Diabetes mellitus type 2 in nonobese ([facility]) TAKE 1 TABLET BY MOUTH AT BEDTIME 90 tablet 1 025 Active Trulicity 0.75 MG/0.5ML solution auto-injector INJECT ONE PEN (=0.75MG) SUBCUTANEOUSLY ONCE A WEEK DIRECTED 2 mL 2 025 Active Alcohol Swabs (Alcohol Prep) 70 % padsIndications: Controlled diabetes mellitus type 2 with complications, unspecified whether halfway insulin use ([facility]) USE DIRECTED THREE TIMES DAILY 100 each 11 025 Active benztropine (Cogentin) 0.5 MG tabletIndication s:Mood disorder ([facility]) TAKE 1 TABLET BY MOUTH TWICE DAILY [...] MOUTH EVERY MORNING 90 tablet 025 Active FLUoxetine (PROzac) 10 MG capsuleIndicatio [...] tablet 025 Active gabapentin (Neurontin) 100 MG capsuleIndicatio ns:Diabetic polyneuropathy associated with type 2 diabetes mellitus ([facility]) TAKE 1 CAPSULE BY MOUTH AT BEDTIME 30 capsule 025 Active TRUEplus Lancets 33G miscIndications: Type 2 diabetes mellitus with other specified complication, with long-term current use of insulin ([facility]) USE DIRECTED TO TEST BLOOD SUGAR EVERY DAY 100 each 11 025 Active sodium bicarbonate 650 MG tablet Take 650 mg by mouth 2 times daily. Active TRUEplus Lancets 33G miscIndications: Type 2 diabetes mellitus with other specified complication, with long-term current use of insulin ([facility]) TEST BLOOD SUGAR EVERY DAY DIRECTED 100 each 1 024 2024 Discontinued Jardiance 10 MGIndications:Pr oteinuria due to type 2 diabetes mellitus (CMS/HCC) ([facility]) TAKE 1 TABLET BY MOUTH EVERY MORNING 30 tablet 025 2024 Discontinued(M ed list cleanup (will not trigger notification to Pharmacy)) mirtazapine (Remeron) 7.5 MG tabletIndication s:Depression, unspecified depression type TAKE 1 TABLET BY MOUTH AT BEDTIME 30 tablet 1 025 2024 Discontinued gabapentin (Neurontin) 100 MG capsuleIndicatio ns:Diabetic polyneuropathy associated with type 2 diabetes mellitus ([facility]) TAKE 1 CAPSULE BY MOUTH AT BEDTIME 30 capsule 025 2024 Discontinued prazosin (Minipress) 2 MG capsuleIndicatio ns:Depression, unspecified depression type TAKE 1 CAPSULE BY MOUTH EVERY MORNING and TAKE 2 CAPSULES BY MOUTH EVERY DAY AT BEDTIME 90 capsule 1 025 2024 Discontinued(M ed list cleanup (will not trigger notification to Pharmacy)) Active Problems Problem Noted Date Diagnosed Date Acute hypokalemia 01/08/2025 Acute metabolic encephalopathy due to hypoglycem ia 01/08/2025 Adult failure to thrive 01/08/2025 CAMPOS (acute kidney injury) 01/08/2025 Chronic constipation 01/08/2025 Chronic hyperglycemia 01/08/2025 CKD (chronic kidney disease) 01/08/2025 Overview (01/08/2025): Most likely due to underlying diabetic kidney disease. Ear ache 01/08/2025 Early satiety 01/08/2025 Overview (01/08/2025): Diabetes, early satiety- Heartburn 01/08/2025 Hyperkalemia 01/08/2025 Hyperosmolar hyperglycemic state (HHS) Hyponatremia 01/08/2025 Overview (01/08/2025): Chronic and asymptomatic. Probably has decreased free water clearance secondary to use of SSRI. Hyperglycemia could be a contributing factor ( BS 604) Corrected Na is 131 Repeat Na is 131 Lactic acidosis 01/08/2025 Metabolic acidosis 01/08/2025 Nausea & vomiting 01/08/2025 Overview (01/08/2025): Decreased appetite, tolerating fluids and cigarette smoking Seemingly depressed- Poorly controlled diabetes mellitus 01/08/2025 Esophagitis 01/08/2025 Sepsis 01/08/2025 Smoker unmotivated to quit 01/08/2025 UTI (urinary tract infection) 01/08/2025 Hypotension 01/08/2025 Depression 01/08/2025 Odynophagia 01/08/2025 Overview (01/08/2025): Erythema rhonchi, no exudate or swelling bilateral ear pain, Diabetes 01/08/2025 Overview (01/08/2025): Goal A1c less than 7% Hypoglycemia 01/08/2025 Proteinuria due to type 2 diabetes mellitus (CMS /HCC) 11/17/2023 Auditory hallucination 11/14/2023 Diabetic polyneuropathy tato ciated with type 2 diabetes mellitus 07/10/2023 [...] seek services. PLAN: 1. Follow up with [facility] [place]: Not recommended for follow-up 2. Patient goal [...] seek services. PLAN: 1. Follow up with [facility] [place]: Not recommended for follow-up 2. Patient goal is to engage in MH services 3. Behavioral Recommendations a. Ind. Therpay b. MEd. Management c. Use of coping skills provided. Cobalamin deficiency 06/21/2018 Type 2 diabetes mellitus 06/21/2018 Vitamin D deficiency 06/21/2018 Mood disorder 01/10/2018 Noncompliance with treatment 07/05/2017 Hypertension 10/31/2013 Encounters Date Type Department Care Team Description 01/15/2025 Orders Only GENERIC EXTERNAL DATA DEPARTMENT Provider, Generic External Data 01/15/2025 Patient Outreach [facility] [address] [place] [address] Nolan Blevins MD 01/14/2025 Patient Outreach [facility] [address] [place] [address] Nolan Blevins MD 01/13/2025 Patient Outreach [facility] [address] [place] [address] Nolan Blevins MD Transition Of Care (Tcm) (HDF - scheduled. ) 01/13/2025 Patient Outreach [facility] [address] [place] [address] Nolan Blevins MD 01/13/2025 Patient Outreach [facility] [address] [place] [address] Nolan Blevins MD 01/10/2025 Patient Outreach [facility] [address] [place] [address] Nolan Blevins MD Care Coordination ([facility] Courtney Liu, TC #3 initial outreach_lvm) 01/10/2025 Patient Outreach [facility] [address] [place] [address] Nolan Blevins MD 01/09/2025 Refill [facility] [address] [place] [address] Bhavani White NP Type 2 diabetes mellitus with other specified complication, with long-term current use of insulin ([facility]) 01/08/2025 Telephone [facility] [address] [place] [phone] Florence Aguiar MA Chart Prep 01/07/2025 Orders Only [facility] External Provider, [facility] 01/06/2025 Patient Outreach [facility] [address] [place] [address] Nolan Blevins MD Care Coordination ([facility] Courtney Liu, TC #2 initial outreach_lvm) 01/03/2025 Telephone [facility] [address] [place] [phone] Nolan Blevins MD [facility] 01/03/2025 Patient Outreach [facility] [address] [place] [address] Nolan Blevins MD 01/03/2025 Patient Outreach [facility] [address] [place] [address] Nolan Blevins MD 01/03/2025 Patient Outreach [facility] [address] [place], [place] [phone] Nolan Blevins MD 01/03/2025 Patient Outreach [facility] [address] [place], [place] [phone] Nolan Blevins MD Transition Of Care (Tcm) (HDF scheduled. ) 01/03/[address] [address] Nolan Blevins MD Hospital Follow-up 01/01/2025 Patient Outreach [address] [address] Nolan Blevins MD 12/31/2024 Patient Outreach [address] [address] Nolan Blevins MD Care Coordination (C3/W Courtney Liu, TC initial outreach_lvm ) 12/31/2024 Patient Outreach [address] [address] Nolan Blevins MD Care Coordination (C3/W Courtney Liu, Chart review ) 12/31/2024 Patient Outreach [facility] [address] [place] [address] Nolan Blevins MD Care Coordination (C3 Chart review) 12/31/2024 Patient Outreach [address] [address] Nolan Blevins MD 12/29/2024 Orders Only [facility] External Provider, [facility] 12/23/2024 Refill [facility] [address] [place] [address] Nolan Blevins MD Depression, unspecified depression type; Diabetic polyneuropathy associated with type 2 diabetes mellitus ([facility]) 12/20/2024 Orders Only GENERIC EXTERNAL DATA DEPARTMENT Provider, Generic External Data 12/14/2024 Refill [facility] [address] [place] [address] Nolan Blevins MD Depression, unspecified depression type 12/12/2024 Refill [facility] [address] [place] [address] Cindy Lainez DO Depression, unspecified depression type 12/11/[address] [address] Elizabeth Perez, PharmD 12/04/2024 Orders Only GENERIC EXTERNAL DATA DEPARTMENT Provider, Generic External Data 11/26/2024 Telephone [address] [place] [address] Heather Smith MA may recalls 11/22/2024 Population Health Risk Score [facility] ([facility]) Department [address] [place] [phone] Provider, Population Health Generic 11/21/2024 Refill [facility] [address] [place], [place] [phone] Nolan Blevins MD Diabetic polyneuropathy associated with type 2 diabetes mellitus ([facility]/HCC); Controlled diabetes mellitus type 2 with complications, unspecified whether extermination inspector insulin use (CMS/HCC); Mood disorder (CMS/HCC) 11/21/2024 Refill [facility] [address] [place], [place] [phone] Monik Deshpande NP Mood disorder ([facility]/HCC) 11/12/2024 Telephone [facility] [address] [place] [address] Nolan Blevins MD 11/12/2024 Orders Only GENERIC EXTERNAL DATA DEPARTMENT Provider, Generic External Data 11/08/2024 Refill [facility] [address] [place] [address] Nolan Blevins MD 10/22/2024 Refill [facility] [address] [place] [address] Justyna Manuel MD Diabetes mellitus type 2 in nonobese ([facility]/HCC); Depression, unspecified depression type; Diabetic polyneuropathy associated with type 2 diabetes mellitus ([facility]/HCC) from Last 3 Months Immunizations Name Administration [...] Description 01/17/2025 9:30 AM EDT Office Visit [facility] [address] [place] [phone] Name, MD Nolan [address] [place] [phone] 03/07/2025 10:15 AM EDT Office Visit [facility] [address] [place] [address] Name, MD Nolan [address] [place] [phone] Health Maintenance Due Date Last Done Comments [...] 2024 06/11/2021, 05/21/2021 Influenza Vaccine (#1) 2024 2, 07/13/2021, 06/21/2018, Additional history exists Diabetes: Hemoglobin [...] Associated Diagnosis Comments VENOUS BLOOD GAS Routine 01/15/2025 4:[address] ABDOMEN PELVIS WO CONTRAST Routine 01/10/2025 2:[address] ABDOMEN PELVIS WO CONTRAST Routine 01/07/2025 6:17 PM EDT LACTIC ACID Routine 01/07/2025 3:[address] HEAD WO CONTRAST Routine 01/07/2025 1 :04 PM EDT VENOUS BLOOD GAS Routine 01/07/2025 1:00 PM EDT CDIFF GENE PCR Routine 01/07/2025 12:54 PM EDT TYPE AND SCREEN Routine 01/07/2025 12:53 PM EDT URINALYSIS, COMPLETE, WITH REFLEX TO CULTURE Routine 01/07/2025 12:53 PM EDT GASTROINTESTINAL PANEL Routine 12:[address] CERVICAL SPINE WO CONTRAST Routine 01/07/2025 11:31 AM EDT XR CHEST 1 VIEW Routine 01/07/2025 [...] Maintenance Results * (ABNORMAL) VENOUS BLOOD GAS (01/15/2025 4:43 PM EDT) Only the most recent of3 resultswithin the time period is included. VBG pH 7.26(L) 7.32 - 7.43 [facility] Comment:METER #: [id number] additional_comment: CbMaddenp VBG PCO2 35 mmHg [facility] Comment:METER #: [id number] additional_comment: CbMaddenp VBG PO2 52 mmHg [facility] Comment:METER #: [id number] additional_comment: CbMaddenp VBG Base Excess -9.7 mmol/L [facility] Comment:METER #: [id number] additional_comment: Slimp VBG HCO3 16(L) 22 - 26 mmol/L [facility] Comment:METER #: [id number] additional_comment: Slimp O2 Sat, Christopher 72.0 % [facility] Comment:METER #: [id number] additional_comment: CbMaddenp 01/15/2025 4:43 PM EDT 01/15/2025 4:46 PM EDT us Generic External Data Provider LAB BLOOD ORDERAB LES Final Result [facility] [address] [facility] [place] [address] [phone] * CT Abdomen Pelvis w/o Contrast (01/10/2025 2:53 PM EDT) Only the most recent of3 resultswithin the time period is included. Anatomical Region Laterality Modality Body, Pelvis, Abdomen Computed T omography 01/10/2025 2:53 PM EDT Narrative 01/10/2025 3:22 PM EDT ? [facility] ?[address] [place] [address]. ?Maritza Nixon [address] ? CT Scan Report ? Signed ? Patient: Rita Page ?MR#: MM ?? [id number] ? : 1965 ?Acct:[id number] ? Age/Sex: 59 / F ?ADM Date: 01/07/25 ? Loc: HO.[facility] ?452-1 ? Attending Dr: Sasha Booker MD ? Ordering Physician: Sasha Booker MD ?? Date of Service: 01/10/25 ?? Procedure(s): CT abdomen pelvis wo IV con ?? Accession Number(s): [id number] ? cc: Sasha Booker MD; Name,Nolan PADILLA ? Report Number: ?? [id number]: Total DLP = ??583.00 mGy-cm ?? EXAMINATION: ?? CT ABDOMEN AND PELVIS WITHOUT CONTRAST ? CLINICAL INFORMATION: ?? Pneumatosis in the colon, follow-up. ? COMPARISON: ?? January 07, 2025. ? TECHNIQUE: ?? Multidetector volumetric imaging was performed from the superior aspect ?? of the liver through the pubic symphysis. Sagittal and coronal ?? reformatted images were obtained on the technologist's workstation. ? This CT examination was performed using dose optimization techniques as ?? appropriate, variously including the following: ?? *Automated exposure control ?? *Adjustment of mA and/or kV according to patient size (this includes ?? techniques or standardized protocols for targeted exams where dose is ?? matched to indication/reason for exam; i.e. extremities or head) ?? *Use of iterative reconstruction technique ?? Oral contrast: 900 cc. ? DLP: 582 mGy centimeter. ? FINDINGS: ? Inadequate evaluation of the intra-abdominal organs and vascular ?? structures due to lack of IV contrast. ? LUNG BASES: Bilateral pleural effusions, moderate volume and ?? compression atelectasis versus infiltrate, lung bases. Small ?? pericardial effusion.. ? LIVER, GALLBLADDER, AND BILIARY TREE: The liver measures 18 cm. No ?? intrahepatic biliary ductal dilatation. No pericholecystic fluid ?? collection or gallbladder wall thickening. No extrahepatic biliary ?? ductal dilatation. ? PANCREAS: No peripancreatic fluid collection. No main pancreatic ductal ?? dilatation. ? SPLEEN: 11 cm. ? ADRENAL GLANDS: No nodular lesions. ? KIDNEYS AND URETERS: No hydronephrosis. No nephrolithiasis. ? BLADDER: Fluid-filled. ? GASTROINTESTINAL TRACT: ? There is a segmental area of the thyroid intestinal wall thickening ?? involving the distal descending colon. ?? There is abundant stool throughout the large intestine mostly the right ?? hemicolon and transverse colon. ?? There is no pneumatosis intestinalis. ?? No pneumoperitoneum. ?? No ascites. ?? No extraluminal oral contrast. ? ABDOMINAL WALL: Fat-containing umbilical hernia, small. ? There is edema pattern throughout the fat planes of the abdomen and ?? pelvis and upper thighs without fluid collection. ? LYMPH NODES: Prominent in the inguinal regions and to a lesser extent ?? mesenteric. ? VASCULAR: No aneurysm, abdominal aorta. No gas within the main portal ?? vein or the SMV. Calcified plaques distal abdominal aorta wall. ?? Small pericardial effusion. ? PELVIC VISCERA: Inadequate evaluation. No gross masses in the uterus ?? nor left adnexa. ? OSSEOUS STRUCTURES: No acute fracture or listhesis. No lytic or blastic ?? lesions. Bony pelvis is intact. Coxofemoral joints are intact. ? CT/CT abdomen pelvis wo IV con ?? IMPRESSION: ?? Segmental of asymmetric wall thickening distal descending colon. ?? Inflammatory versus infectious versus neoplasm. ?? Anasarca. ?? No pneumatosis intestinalis or gas within the mesenteric veins nor the ?? main portal vein. ? Fleischner guidelines were followed. ? Electronically signed by: ??Dung Wiggins MD ??01/10/2025 03:20 PM ?? EDT ? Dictated By: ?Dung Hart MD ? Signed By: ?<Electronically signed by Dung Mckeon MD in OV> ? 01/10/25 1520 ? DD/ 1453 ? TD/TT: 01/10/25 1503 ? Cafeteria Assistant: ? Procedure Note Kaveh Simons - 01/10/[address] [place] [address] [address] Scan Report Signed Patient: Lili PageDanay#: [id number] : 1965Acct:[id number] Age/Sex: 59 / FADM Date: 01/07/25 [place]: [place]: Sasha Booker MD Ordering Physician: Sasha Booker MD Date of Service: 01/10/25 Procedure(s): CT abdomen pelvis wo IV con Accession Number(s): [id number] cc: Sasha Booker MD; Name,Nolan PADILLA Report Number: [id number]: Total DLP = 583.00 mGy-cm EXAMINATION: CT ABDOMEN AND PELVIS WITHOUT CONTRAST CLINICAL INFORMATION: Pneumatosis in the colon, follow-up. COMPARISON: January 07, 2025. TECHNIQUE: Multidetector volumetric imaging was performed from the superior aspect of the liver through the pubic symphysis. Sagittal and coronal reformatted images were obtained on the technologist's workstation. This CT examination was performed using dose optimization techniques as appropriate, variously including the following: *Automated exposure control *Adjustment of mA and/or kV according to patient size (this includes techniques or standardized protocols for targeted exams where dose is matched to indication/reason for exam; i.e. extremities or head) *Use of iterative reconstruction technique Oral contrast: 900 cc. DLP: 582 mGy centimeter. FINDINGS: Inadequate evaluation of the intra-abdominal organs and vascular structures due to lack of IV contrast. LUNG BASES: Bilateral pleural effusions, moderate volume and compression atelectasis versus infiltrate, lung bases. Small pericardial effusion.. LIVER, GALLBLADDER, AND BILIARY TREE: The liver measures 18 cm. No intrahepatic biliary ductal dilatation. No pericholecystic fluid collection or gallbladder wall thickening. No extrahepatic biliary ductal dilatation. PANCREAS: No peripancreatic fluid collection. No main pancreatic ductal dilatation. SPLEEN: 11 cm. ADRENAL GLANDS: No nodular lesions. KIDNEYS AND URETERS: No hydronephrosis. No nephrolithiasis. BLADDER: Fluid-filled. GASTROINTESTINAL TRACT: There is a segmental area of the thyroid intestinal wall thickening involving the distal descending colon. There is abundant stool throughout the large intestine mostly the right hemicolon and transverse colon. There is no pneumatosis intestinalis. No pneumoperitoneum. No ascites. No extraluminal oral contrast. ABDOMINAL WALL: Fat-containing umbilical hernia, small. There is edema pattern throughout the fat planes of the abdomen and pelvis and upper thighs without fluid collection. LYMPH NODES: Prominent in the inguinal regions and to a lesser extent mesenteric. VASCULAR: No aneurysm, abdominal aorta. No gas within the main portal vein or the SMV. Calcified plaques distal abdominal aorta wall. Small pericardial effusion. PELVIC VISCERA: Inadequate evaluation. No gross masses in the uterus nor left adnexa. OSSEOUS STRUCTURES: No acute fracture or listhesis. No lytic or blastic lesions. Bony pelvis is intact. Coxofemoral joints are intact. CT/CT abdomen pelvis wo IV con IMPRESSION: Segmental of asymmetric wall thickening distal descending colon. Inflammatory versus infectious versus neoplasm. Anasarca. No pneumatosis intestinalis or gas within the mesenteric veins nor the main portal vein. Fleischner guidelines were followed. Electronically signed by: Dung Wiggins MD 01/10/2025 03:20 PM EDT RP Dictated By: Dung Hart MD Signed By: <Electronically signed by Dung Mckeon MDin OV> 01/10/25 1520 DD/ 1453 TD/TT: 01/10/25 1503 Cafeteria Assistant: [facility] External Provider IMG CT PROCEDURES Final Result * Lactic Acid (01/07/2025 3:04 PM EDT) Only the most recent of2 resultswithin the time period is included. Lactic Acid 1.3 0.5 - 2.0 mmol/L [facility] 01/07/2025 3:04 PM EDT 01/07/2025 3:07 PM EDT Generic External Data Provider LAB BLOOD ORDERAB LES Final Result [facility] [address] [place] [phone] * CT Head w/o Contrast (01/07/2025 1:04 PM EDT) Anatomical Region Laterality Modality Head, Neck Computed Tomogra phy 01/07/2025 1:04 PM EDT Narrative 01/07/2025 1:56 PM EDT ? [facility] ?[address] [place] [address]. ?[place] [address] ? CT Scan Report ? Signed ? Patient: Nazia Pageicita ?MR#: MM ?? [id number] ? : 1965 ?Acct:[id number] ? Age/Sex: 59 / F ?ADM Date: 04/29/25 ? Loc: HO.ED ? Attending Dr: ? Ordering Physician: Farrah Taveras MD ?? Date of Service: 01/07/25 ?? Procedure(s): CT head/brain wo IV con ?? Accession Number(s): [id number] ? cc: Farrah Taveras MD; Name,Nolan PADILLA ? Report Number: ?? [id number]: Total DLP = ??591.00 mGy-cm ?? EXAMINATION: ?? CT HEAD WITHOUT CONTRAST ? CLINICAL INFORMATION: ?? Syncope. ? COMPARISON: ?? 12/29/2024. 03/08/2024. ? TECHNIQUE: ?? Contiguous axial imaging was performed from the skull base to vertex ?? without intravenous administration of contrast. ? This CT examination was performed using dose optimization techniques as ?? appropriate, variously including the following: ?? *Automated exposure control ?? *Adjustment of mA and/or kV according to patient size (this includes ?? techniques or standardized protocols for targeted exams where dose is ?? matched to indication/reason for exam; i.e. extremities or head) ?? *Use of iterative reconstruction technique ? FINDINGS: ?? There is no evidence of intracranial hemorrhage or extra-axial fluid ?? collection. ?? There is no mass effect, or edema. No CT evidence of acute territorial ?? infarct. ?? Ventricles, sulci, and cisterns are normal in size and configuration ?? for patient age. No hydrocephalus. No midline shift. ?? Negative hyperdense MCA sign. Negative insular ribbon sign. ? Patchy periventricular and deep white matter hypoattenuation is ?? consistent with mild to moderate small vessel ischemic changes. ?? 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 ?? Additional old lacunar type infarcts present in the bilateral anterior ?? gangliocapsular regions. ?? Mild atheromatous calcification of the bilateral carotid siphons and V4 ?? segments vertebral arteries bilaterally. ? Globes and orbital contents image normally. ?? No extracranial soft tissue abnormalities. ? The paranasal sinuses, mastoid air cells, and tympanic cavities are ?? normally aerated. ?? No suspicious bony abnormalities. There are no acute fractures evident. ? CT/CT head/brain wo IV con ?? IMPRESSION: ?? 1. No acute intracranial abnormality. ?? 2. Chronic findings as discussed. ? Electronically signed by: ??Sujit Calhoun MD ??01/07/2025 01:53 PM EDT RP ? Dictated By: ?Sujit Calhoun MD ? Signed By: ?<Electronically signed by Sujit Calhoun MD in OV> ?01/07/25 1353 ? DD/ 1304 ? TD/TT: 01/07/25 1329 ? Cafeteria Assistant: ? Procedure Note Donotuseinterpreter, Image - 01/07/[address] [address] [address] Scan Report Signed Patient: Lili PageaMR#: MM [id number] : 1965Acct:[id number] Age/Sex: 59 / FADM Date: 01/07/25 Loc: HO.ED Attending Dr: Ordering Physician: Farrah Taveras MD Date of Service: 01/07/25 Procedure(s): CT head/brain wo IV con Accession Number(s): [id number] cc: Farrah Taveras MD; Name,Nolan PADILLA Report Number: [id number]: Total DLP = 591.00 mGy-cm EXAMINATION: CT HEAD WITHOUT CONTRAST CLINICAL INFORMATION: Syncope. COMPARISON: 12/29/2024. 03/08/2024. TECHNIQUE: Contiguous axial imaging was performed from the skull base to vertex without intravenous administration of contrast. This CT examination was performed using dose optimization techniques as appropriate, variously including the following: *Automated exposure control *Adjustment of mA and/or kV according to patient size (this includes techniques or standardized protocols for targeted exams where dose is matched to indication/reason for exam; i.e. extremities or head) *Use of iterative reconstruction technique FINDINGS: There is no evidence of intracranial hemorrhage or extra-axial fluid collection. There is no mass effect, or edema. No CT evidence of acute territorial infarct. Ventricles, sulci, and cisterns are normal in size and configuration for patient age. No hydrocephalus. No midline shift. Negative hyperdense MCA sign. Negative insular ribbon sign. Patchy periventricular and deep white matter hypoattenuation is consistent with mild to moderate small vessel ischemic changes. 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 Additional old lacunar type infarcts present in the bilateral anterior gangliocapsular regions. Mild atheromatous calcification of the bilateral carotid siphons and V4 segments vertebral arteries bilaterally. Globes and orbital contents image normally. No extracranial soft tissue abnormalities. The paranasal sinuses, mastoid air cells, and tympanic cavities are normally aerated. No suspicious bony abnormalities. There are no acute fractures evident. CT/CT head/brain wo IV con IMPRESSION: 1. No acute intracranial abnormality. 2. Chronic findings as discussed. Electronically signed by: Sujit Calhoun MD 01/07/2025 01:53 PM EDT RP Dictated By: Sujit Calhoun MD Signed By: <Electronically signed by Sujit Calhoun MD in OV> 01/07/25 1353 DD/ 1304 TD/TT: 01/07/25 1329 Cafeteria Assistant: [facility] External Provider IMG CT PROCEDURES Final Result * CDiff Gene PCR (01/07/2025 12:54 PM EDT) Pathologist [facility] CDiff Gene PCR NEGATIVE Negative [facility] Comment:If C. difficile stro ngly suspected despite one negativetest, a second test may be sent vs. empiric treatment forC. difficile infection. 01/07/2025 12:5 4 PM EDT 01/07/2025 1:45 PM EDT Generic External Data Provider LAB BODY FLUIDS A ND STOOLS ORDERABLES Final Result [facility] [address] [place] [address] [phone] * Gastrointestinal panel (01/07/2025 12:53 PM EDT) Pathologist [facility] Campylobacter Not Detected Not Detect. [facility] Plesiomonas shigelloides Not Detected Not Detect. [facility] Salmonella Not Detected Not Detect. [facility] Vibrio Not Detected Not Detect. [facility] Vibrio cholerae Not Detected Not Detect. [facility] YERSINIA ENTEROCOLITICA Not Detected Not Detect. [facility] Enteroaggregative E. coli (EAEC) Not Detected Not Detect. [facility] Enteropathogenic E. coli (EPEC) Not Detected Not Detect. [facility] Enterotoxigenic E. coli (ETEC) lt/st Not Detected Not Detect. [facility] Shiga-like toxin-producing E. coli (STEC) stx1/stx2 Not Detected Not Detect. [facility] E coli O157 Not applicable Not Detect. [facility] Comment:E. coli containing t he O157 antigen are a subset ofShiga-like toxin- producing E. coli (STEC). Shigella/Enteroinvasive E. coli (EIEC) Not Detected Not Detect. [facility] Cryptosporidium Not Detected Not Detect. [facility] Cyclospora cayetanensis Not Detected Not Detect. [facility] Entamoeba histolytica Not Detected Not Detect. [facility] Giardia lamblia Not Detected Not Detect. [facility] Adenovirus F 40/41 Not Detected Not Detect. [facility] Astrovirus Not Detected Not Detect. [facility] Norovirus GI/GII Not Detected Not Detect. [facility] Rotavirus A Not Detected Not Detect. [facility] Sapovirus Not Detected Not Detect. [facility] Comment: All results must be correlated with clinical findings.Negative results do not exclude the possibility ofgastrointestinal infection and should not be used as thesole basis for diagnosis, treatment, or other managementdecisions. Virus, bacteria, and parasite nucleic acid maypersist in vivo independently of organism viability.Additionally, some organisms may be carriedasymptomatically.Detection of organism targets does not imply that thecorresponding organisms are infectious or are the causativeagents for clinical symptoms. There is a risk of falsenegative values due to the presence of sequence variants inthe gene targets of the assay, amplification inhibitors inspecimens, or inadequate numbers of organisms foramplification.The identification of several diarrheagenic E. colipathotypes has historically relied upon phenotypiccharacteristics. This panel targets genetic determinantscharacteristic of most pathogenic strains, but may notdetect all strains having phenotypic characteristics of apathotype.The performance of this test has not been established formonitoring treatment of infection with any of the panelorganisms.This assay is performed by Multiplexed PCR, utilizing [employer]. 01/07/2025 12:5 3 PM EDT 01/07/2025 12:57 PM EDT us Generic External Data Provider LAB MICROBIOLOGY - GENERAL ORDERABLES Final Result [facility] [address] [place] [address] [phone] * (ABNORMAL) Urinalysis, Complete, with Reflex to Culture (01/07/2025 12:53 PM EDT) Only the most recent of2 resultswithin the time period is included. Color Urine Dark Yellow [facility] Appearance Urine Cloudy [facility] PH 5.5 5.0 - 9.0 [facility] Glucose Urine UA 500(A) Negative mg/dL [facility] Urine Blood Small (1+)(A) Negative [facility] Specific [place] - Urine 1.015 1.005 - 1.025 [facility] Urine Protein 30 (1+)(A) Neg-Trace mg/dL [facility] Urine Ketones Trace Negative mg/dL [facility] Nitrite Urine Negative Negative [facility] Leukocyte Esterase Urine Large (3+)(A) Negative [facility] RBC Urine 3-5(A) 0 - 2 /HPF [facility] Urine WBC 0-5 0 - 5 /HPF [facility] Urine Squamous Epithelial Cell >20 0 - 2 /HPF [facility] Urine Bacteria 2+ None Seen [facility] Hyaline Casts, Urine 0-2 0 - 2 /LPF [facility] 01/07/2025 12:5 3 PM EDT 01/07/2025 12:57 PM EDT Narrative [facility] - 01/07/2025 1:59 PM EDT Urine, Clean Catch us Generic External Data Provider LAB URINE ORDERAB LES Final Result Performing Organization Address [facility] Co de Phone Number [facility] [address] [place] [address] [phone] * Type and screen (01/07/2025 12:53 PM EDT) Blood Type BP [facility] Antibody Screen NEGATIVE [facility] 01/07/2025 12:5 3 PM EDT 01/07/2025 1:02 PM EDT us Generic External Data Provider LAB BLOOD BANK TE ST ORDERABLES Final Result Performing Organization Address [facility] de Phone Number [facility] [address] [place] [address] [phone] * CT Cervical Spine w/o Contrast (01/07/2025 11:31 AM EDT) Only the most recent of2 resultswithin the time period is included. Anatomical Region Laterality Modality Spine, C-spine Computed Tomogra phy 01/07/2025 11:3 1 AM EDT Narrative 01/07/2025 2:01 PM EDT ? [facility] ?[address] ?[place] [address] ? CT Scan Report ? Signed ? Patient: Rita Page ?MR#: MM ?? [id number] ? : 1965 ?Acct:[id number] ? Age/Sex: 59 / F ?ADM Date: 04/29/25 ? Loc: HO.ED ? Attending Dr: ? Ordering Physician: Farrah Taveras MD ?? Date of Service: 04/29/25 ?? Procedure(s): CT cervical spine wo IV con ?? Accession Number(s): [id number] ? cc: Farrah Taveras MD; Name,Nolan PADILLA ? Report Number: ?? [id number]: Total DLP = ??242.00 mGy-cm ?? EXAMINATION: ?? CT CERVICAL SPINE WITHOUT CONTRAST ? CLINICAL INFORMATION: ?? Syncope, fall. ? COMPARISON: ?? 12/29/2024, 03/08/2024. ? TECHNIQUE: ?? Spiral CT imaging of the cervical spine performed in axial plane ?? without contrast. Multiplanar reformatted images were constructed from ?? the axial data set. ? This CT examination was performed using dose optimization techniques as ?? appropriate, variously including the following: ?? *Automated exposure control ?? *Adjustment of mA and/or kV according to patient size (this includes ?? techniques or standardized protocols for targeted exams where dose is ?? matched to indication/reason for exam; i.e. extremities or head) ?? *Use of iterative reconstruction technique ? FINDINGS: ?? CORONAL ALIGNMENT: ?? -Normal ? SAGITTAL ALIGNMENT: ?? -Normal lordosis. ?? -No subluxations or malalignment. ? C1-C2 AND CRANIOCERVICAL JUNCTION: ?? -Intact and normally aligned. There are mild degenerative changes of ?? the anterior atlantoaxial joint. ? VERTEBRAL BODIES AND FACETS: ?? -No fracture, compression deformity, traumatic subluxation, or ?? suspicious bone lesion. ?? -There is normal facet alignment. Mild bilateral degenerative facet ?? changes. ? DISCS: ?? -Mild disc degeneration present C5-6. Disc spaces otherwise grossly ?? maintained. ? CENTRAL CANAL: ?? -No evidence of high-grade central canal narrowing or large disc ?? herniation allowing for modality limitations. ? PREVERTEBRAL AND PARAVERTEBRAL SOFT TISSUES: ?? -No prevertebral or paravertebral soft tissue abnormality. ?? Normal-appearing thyroid. ?? -Mild carotid bulb calcifications bilaterally. ? LUNG APICES: ?? -Clear bilaterally. No pneumothorax. ? CT/CT cervical spine wo IV con ?? IMPRESSION: ? 1. No CT evidence of acute cervical spine fracture or injury. ? Electronically signed by: ??Sujit Calhoun MD ??01/07/2025 01:58 PM EDT RP ? Dictated By: ?Sujit Calhoun MD ? Signed By: ?<Electronically signed by Sujit Calhoun MD in OV> ?01/07/25 1358 ? DD/ 1131 ? TD/TT: 01/07/25 1329 ? Cafeteria Assistant: ? Procedure Note Donotuseinterpreter, Image - 01/07/[address] [address] [address] Scan Report Signed Patient: Carlos Eduardo PageR#: [id number] : 1965Acct:[id number] Age/Sex: 59 / FADM Date: 01/07/25 Loc: HO.ED Attending Dr: Ordering Physician: Farrah Taveras MD Date of Service: 01/07/25 Procedure(s): CT cervical spine wo IV con Accession Number(s): [id number] cc: Farrah Taveras MD; Name,Nolan PADILLA Report Number: [id number]: Total DLP = 242.00 mGy-cm EXAMINATION: CT CERVICAL SPINE WITHOUT CONTRAST CLINICAL INFORMATION: Syncope, fall. COMPARISON: 12/29/2024, 03/08/2024. TECHNIQUE: Spiral CT imaging of the cervical spine performed in axial plane without contrast. Multiplanar reformatted images were constructed from the axial data set. This CT examination was performed using dose optimization techniques as appropriate, variously including the following: *Automated exposure control *Adjustment of mA and/or kV according to patient size (this includes techniques or standardized protocols for targeted exams where dose is matched to indication/reason for exam; i.e. extremities or head) *Use of iterative reconstruction technique FINDINGS: CORONAL ALIGNMENT: -Normal SAGITTAL ALIGNMENT: -Normal lordosis. -No subluxations or malalignment. C1-C2 AND CRANIOCERVICAL JUNCTION: -Intact and normally aligned. There are mild degenerative changes of the anterior atlantoaxial joint. VERTEBRAL BODIES AND FACETS: -No fracture, compression deformity, traumatic subluxation, or suspicious bone lesion. -There is normal facet alignment. Mild bilateral degenerative facet changes. DISCS: -Mild disc degeneration present C5-6. Disc spaces otherwise grossly maintained. CENTRAL CANAL: -No evidence of high-grade central canal narrowing or large disc herniation allowing for modality limitations. PREVERTEBRAL AND PARAVERTEBRAL SOFT TISSUES: -No prevertebral or paravertebral soft tissue abnormality. Normal-appearing thyroid. -Mild carotid bulb calcifications bilaterally. LUNG APICES: -Clear bilaterally. No pneumothorax. CT/CT cervical spine wo IV con IMPRESSION: 1. No CT evidence of acute cervical spine fracture or injury. Electronically signed by: Sujit Calhoun MD 01/07/2025 01:58 PM EDT RP Dictated By: Sujit Calhoun MD Signed By: <Electronically signed by Sujit Calhoun MD in OV> 01/07/25 1358 DD/ 1131 TD/TT: 01/07/25 1329 Cafeteria Assistant: [facility] External Provider IMG CT PROCEDURES Final Result * XR Chest 1 View (01/07/2025 11:27 AM EDT) Only the most recent of3 resultswithin the time period is included. Anatomical Region Laterality Modality Chest Radiographic Cathi ging 01/07/2025 11:2 7 AM EDT Narrative 01/07/2025 12:24 PM EDT ? [facility] ?[address] ?[place] [address] ?XRay Report ? Signed ? Patient: Rita Page ?MR#: MM ?? [id number] ? : 1965 ?Acct:[id number] ? Age/Sex: 59 / F ?ADM Date: 01/07/25 ? Loc: HO.ED ? Attending Dr: ? Ordering Physician: Farrah Taveras MD ?? Date of Service: 01/07/25 ?? Procedure(s): XR chest 1V ?? Accession Number(s): [id number] ? cc: Farrah Taveras MD; Name,Nolan PADILLA [...] DD/ 1127 ? TD/TT: 01/07/25 1140 ? Cafeteria Assistant: ? Procedure Note Donotparthinterpreter, Image - 01/07/[address] [address] XRay Report Signed Patient: Carlos Eduardo PageR#: [id number] : 1965Acct:[id number] Age/Sex: 59 / FADM Date: 01/07/25 Loc: HO.ED Attending Dr: Ordering Physician: Farrah Taveras MD Date of Service: 01/07/25 Procedure(s): XR chest 1V Accession Number(s): [id number] cc: Farrah Taveras MD; Name,Nolan PADILLA EXAMINATION: [...] 01/07/25 1222 DD/ 1127 TD/TT: 01/07/25 1140 Cafeteria Assistant: [facility] External Provider IMG XR PROCEDURES Final Result * Beta-Hydroxybutyrate (12/29/2024 4:18 PM EDT) Pathologist [facility] Beta-Hydroxybut yrate 0.07 0.02 - 0.27 mmol/L [facility] 12/29/2024 4:18 PM EDT 12/29/2024 4:22 PM EDT Generic External Data Provider LAB BLOOD ORDERAB LES Final Result Performing Organization Address [facility] Co de Phone Number [facility] [address] [place] [phone] * (ABNORMAL) B Type Natriuretic Peptide (BNP) (12/29/2024 4:18 PM EDT) Pathologist [facility] B Type Natriuretic Peptide 244(H) <100 pg/mL [facility] 12/29/2024 4:18 PM EDT 12/29/2024 4:22 PM EDT Generic External Data Provider LAB BLOOD ORDERAB LES Final Result Performing Organization Address [facility] de Phone Number [facility] [address] [place] [phone] * Creatine Kinase, Total (12/29/2024 4:18 PM EDT) Pathologist [facility] Creatine Kinase Total 46 26 - 140 U/L [facility] 12/29/2024 4:18 PM EDT 12/29/2024 4:22 PM EDT Generic External Data Provider LAB BLOOD ORDERAB LES Final Result Performing Organization Address [facility] de Phone Number [facility] [address] [place] [phone] * (ABNORMAL) Comprehensive Metabolic Panel (12/29/2024 4:18 PM EDT) Pathologist [facility] Sodium 131(L) 135 - 145 mmol/L [facility] Potassium 4.4 3.3 - 5.1 mmol/L [facility] Comment:Slight Hemolysis.Int erpret result with caution. Chloride 111(H) 96 - 108 mmol/L [facility] Carbon Dioxide 9(LL) 22 - 29 mmol/L [facility] Comment:Critical value for t est(s): BIC Results called to and readback by:KEVANTOTOMASA Person calling:DONB Date:12/29/2024Time:17:00. Anion Gap 15 12 - 20 [facility] Urea Nitrogen (BUN) 42(H) 9 - 16 mg/dL [facility] Creatinine, Serum 1.62(H) 0.5 - 1.4 mg/dL [facility] Creatinine Clr Calc Pharmacy 32.8 [facility] Comment:Provided height and weight: 165.1 cm,61.235 kg.eGFR (calculated from the MDRD study equation) and eCrCl(calculated from the Cockcroft-Gault equation) are based ondifferent parameters and may not yield comparable results.If eCrCl result is absurd, please check patient'sheight/weight. Estimated Glomerular Filt Rate 32 [facility] Comment:Chronic Kidney Disea se: Estimated GFR < 60 mL/min/1.98w7Owbazc Kidney Disease: Estimated GFR < 15 mL/min/1.73m2 Glucose 190(H) 60 - 115 mg/dL [facility] Calcium 8.2(L) 8.4 - 10.2 mg/dL [facility] Bilirubin, Total 0.4 0.0 - 1.0 mg/dL [facility] Aspartate Amino Transferase 17 5 - 31 U/L [facility] Comment:Slight Hemolysis.Int erpret result with caution. Alanine Aminotransferase 7 0 - 31 U/L [facility] Total Protein 6.3(L) 6.5 - 8.0 g/dL [facility] Albumin Level 3.7 3.5 - 5.0 g/dL [facility] Alkaline Phosphatase 110 39 - 117 U/L [facility] 12/29/2024 4:1 8 PM EDT 12/29/2024 4:22 PM EDT us Generic External Data Provider LAB BLOOD ORDERAB LES Final Result [facility] [address] [place] [phone] * (ABNORMAL) Basic Metabolic Panel (12/29/2024 4:18 PM EDT) Only the most recent of4 resultswithin the time period is included. Sodium 131(L) 135 - 145 mmol/L [facility] Potassium 4.6 3.3 - 5.1 mmol/L [facility] Comment:Slight Hemolysis.Int erpret result with caution. Chloride 112(H) 96 - 108 mmol/L [facility] Carbon Dioxide 8(LL) 22 - 29 mmol/L [facility] Comment:Critical value for t est(s): BIC Results called to and readback by:JEROME Person calling: ALKASABDate:12/29/2024Time:17:00. Anion Gap 16 12 - 20 [facility] Urea Nitrogen (BUN) 41(H) 9 - 16 mg/dL [facility] Creatinine, Serum 1.59(H) 0.5 - 1.4 mg/dL [facility] Creatinine Clr Calc Pharmacy 33.4 [facility] Comment:Provided height and weight: 165.1 cm,61.235 kg.eGFR (calculated from the MDRD study equation) and eCrCl(calculated from the Cockcroft-Gault equation) are based ondifferent parameters and may not yield comparable results.If eCrCl result is absurd, please check patient'sheight/weight. Estimated Glomerular Filt Rate 33 [facility] Comment:Chronic Kidney Disea se: Estimated GFR < 60 mL/min/1.92c8Kltnma Kidney Disease: Estimated GFR < 15 mL/min/1.73m2 Glucose 189(H) 60 - 115 mg/dL [facility] Calcium 8.0(L) 8.4 - 10.2 mg/dL [facility] 12/29/2024 4:18 PM EDT 12/29/2024 4:22 PM EDT us Generic External Data Provider LAB BLOOD ORDERAB LES Final Result [facility] [address] [facility] [place] [address] [phone] * XR Chest 2 Views (12/29/2024 3:19 PM EDT) Anatomical Region Laterality Modality Chest Radiographic Cathi ging 12/29/2024 3:19 PM EDT Narrative 12/29/2024 3:20 PM EDT ? [facility] ?[address] ?[place] [address] ?XRay Report ? Signed ? Patient: Rita Page ?MR#: MM ?? [id number] ? : 1965 ?Acct:[id number] ? Age/Sex: 59 / F ?ADM Date: 12/29/24 ? Loc: HO.ED ? Attending Dr: ? Ordering Physician: Yasmeen De Dios NP ?? Date of Service: 12/29/24 ?? Procedure(s): XR chest 2V ?? Accession Number(s): [id number] ? cc: Name,Nolan PADILLA; Yasmeen De Dios [...] MD in OV> ? 12/29/249 ? DD/ ? TD/TT: 12/29/249 ? Cafeteria Assistant: ? Procedure Note Donotuseinterpreter, Image - 12/29/[address] [address] XRay Report Signed Patient: Magnolia Page#: [id number] : 1965Acct:[id number] Age/Sex: 59 / FADM Date: 12/29/24 Loc: HO.ED Attending Dr: Ordering Physician: Yasmeen De Dios NP Date of Service: 12/29/24 Procedure(s): XR chest 2V Accession Number(s): [id number] cc: Name,Nolan PADILLA; Yasmeen De Dios NP [...] OV> 12/29/24 1519 DD/ TD/TT: 12/29/24 1519 Cafeteria Assistant: [facility] External Provider IMG XR PROCEDURES Final Result * (ABNORMAL) Lactic Acid (12/29/2024 1:31 PM EDT) Only the most recent of2 resultswithin the time period is included. Lactic Acid 3.7(HH) 0.5 - 2.0 mmol/L [facility] Comment:Critical value for L ACTIC: Results called to and read shakay:IZABEL ROME calling: Date: 12-29-24 Time:1358 12/29/2024 1:31 PM EDT 12/29/2024 1:36 PM EDT us Generic External Data Provider LAB BLOOD ORDERAB LES Final Result [facility] [address] [place] [address] [phone] * CT Head Stroke w/o Contrast (12/29/2024 9:23 AM EDT) Anatomical Region Laterality Modality Computed Tomogra phy 12/29/2024 9:23 AM EDT Narrative 12/29/2024 9:24 AM EDT ? [facility] ?[address] ?[place] [address] ? CT Scan Report ? Signed with Addenda ? Patient: Maxx Raza,Rita ?MR#: MM ?? [id number] ? : 1965 ?Acct:[id number] ? Age/Sex: 59 / F ?ADM Date: 12/29/24 ? Loc: HO.ED ? Attending Dr: ? Ordering Physician: Yasmeen De Dios NP ?? Date of Service: 12/29/24 ?? Procedure(s): CT head for STROKE ?? Accession Number(s): [id number] ? cc: NameNolan MD; Yasmeen De Dios NP ? Report Number: ?? [id number]: Total DLP = ??642.00 mGy-cm ?ADDENDUM ?? [...] by Umer Waters MD in OV> ?12/29/24 0923 ? DD/ 2 ? TD/TT: 12/29/[address] ? Cafeteria Assistant: ? Procedure Note Ronak, Kaveh - 12/29/[address] [place] [address] [address] Scan Report Signed with Nicole Patient: Magnolia Page#: [id number] : 1965Acct:[id number] Age/Sex: 59 / FADM Date: 12/29/24 Loc: HO.ED Attending Dr: Ordering Physician: Yasmeen De Dios NP Date of Service: 12/29/24 Procedure(s): CT head for STROKE Accession Number(s): [id number] cc: Nolan Blevins MD; Yasmeen De Dios NP Report Number: [id number]: Total DLP = 642.00 mGy-cm ADDENDUM This [...] document has been electronically signed by: Umer Wtaers MD on 12/29/2024 09:23:13 Dictated By: Umer Waters MD Signed By: <Electronically signed by Umer Waters MD in OV> 12/29/[address] DD/ 2 TD/TT: 12/29/24922 Cafeteria Assistant: [facility] External Provider IMG CT PROCEDURES Edited Result - Final * Partial Thromboplastin Time, Activated (APTT) (12/29/2024 8:54 AM EDT) Partial Thromboplastin Time 35.3 26.0 - 36.8 SEC [facility] Comment:For information rega rding the monitoring of direct thrombininhibitors, please refer to Pharmacy. 12/29/2024 8:54 AM EDT 12/29/2024 8:57 AM EDT Generic External Data Provider LAB BLOOD ORDERAB LES Final Result Performing Organization Address [facility] Co de Phone Number [facility] [address] [place] [phone] * (ABNORMAL) Prothrombin Time-INR (12/29/2024 8:53 AM EDT) Prothrombin Time 13.5(H) 10.9 - 12.4 SEC [facility] INTERNATIONAL NORM RATIO 1.2(H) 0.9 - 1.1 [facility] Comment:INTERNATIONAL NORMAL IZED RATIO (INR) REFERENCE [...] ORDERAB LES Final Result Performing Organization Address [facility] Co de Phone Number [facility] [address] [place] [address] [phone] * High Sensitivity Troponin I (12/29/2024 8:46 AM EDT) TROPONIN I HIGH SENSITIVITY <2.7 <3.5 - 17.0 ng/L [facility] Comment:The [place] high sens itivity Troponin-I results should beused in conjunction with other diagnostic information suchas ECG, clinical observations and information, and patientsymptoms to aid in the diagnosis of OR. 12/29/2024 8:46 AM EDT 12/29/2024 8:50 AM EDT us Generic External Data Provider LAB BLOOD ORDERAB LES Final Result [facility] [address], [place] [phone] * (ABNORMAL) CBC auto differential (12/29/2024 8:46 AM EDT) White Blood Count 20.9(H) 4.8 - 10.8 X10*3/uL [facility] Red Blood Count 3.83(L) 4.20 - 5.50 X10*6/uL [facility] Hemoglobin 11.1(L) 12.0 - 16.0 g/dl [facility] Hematocrit 33.6(L) 37.0 - 47.0 % [facility] Mean Corpuscular Volume 87.7 80.0 - 98.0 fL [facility] Mean Corpuscular Hemoglobin 29.0 27.0 - 33.0 pg [facility] Mean Corpuscular HGB Conc 33.0 31.0 - 35.0 g/dl [facility] Red Cell Distribution Width 14.9 11.0 - 16.0 % [facility] Platelet Count 406(H) 160 - 400 X10*3/uL [facility] Mean Platelet Volume 10.2 9.4 - 12.3 fL [facility] Neutrophils Percent Auto 87.7(H) 45 - 73 % [facility] Imm Gran Pct Auto 0.6(H) 0.0 - 0.4 % [facility] Lymphocytes Percent Auto 5.2(L) 20 - 40 % [facility] Monocytes Percent Auto 5.8 2 - 11 % [facility] Eosinophils Percent Auto 0.5 0 - 4 % [facility] Basophils Percent Auto 0.2 0 - 2 % [facility] NRBC Pct Auto 0.0 0.0 - 0.2 /100WBC [facility] Neutrophils Absolute Auto 18.3(H) 2.0 - 8.3 x10*3/uL [facility] Imm Gran Abs Auto 0.13(H) 0.00 - 0.03 X10*3/uL [facility] Lymphocytes Absolute Auto 1.1(L) 1.2 - 4.9 X10*3/uL [facility] Monocytes Absolute Auto 1.2 0.1 - 1.2 X10*3/uL [facility] Eosinophils Absolute Auto 0.1 0.0 - 0.4 X10*3/uL [facility] Basophils Absolute Auto 0.0 0.0 - 0.2 X10*3/uL [facility] NRBC Abs Auto 0.000 0.0 - 0.012 X10*3/uL [facility] 12/29/2024 8:46 AM EDT 12/29/2024 8:50 AM EDT Generic External Data Provider LAB BLOOD ORDERAB LES Final Result Performing Organization Address [facility]/ZIP Co de Phone Number [facility] [address] [place] [address] [phone] * Bilirubin, Total (12/29/2024 8:46 AM EDT) Bilirubin, Total 0.5 0.0 - 1.0 mg/dL [facility] 12/29/2024 8:46 AM EDT 12/29/2024 8:50 AM EDT Generic External Data Provider LAB BLOOD ORDERAB LES Final Result Performing Organization Address City/[facility] Co de Phone Number [facility] [address] [place] [address] [phone] * Lipid Panel, Standard (12/29/2024 8:46 AM EDT) Triglycerides 96 <150 mg/dL [facility] Comment:Desirable Triglyceri de: less than 150 mg/dLBorderline High Triglyceride 150-199 mg/dLHigh Triglyceride: 200-499 mg/dLVery High Triglyceride: greater than or equal to 5OO mg/dL Cholesterol 142 <200 mg/dL [facility] Comment:Desirable Cholestero l: less than 200 mg/dLBorderline High Cholesterol: 200-239 mg/dLHigh Cholesterol: greater than 239 mg/dL LDL Cholesterol Calculated 78 <100 mg/dL [facility] Comment:Desirable LDL: less than 100 mg/dLNear Optimal/Above Optimal LDL: 110- 129 mg/dLBorderline High LDL: 130-159 mg/dLHigh LDL: 160-189 mg/dLVery High LDL: greater than or equal to 190 mg/dL HDL Cholesterol 45 >40 mg/dL [facility] Comment:Desirable HDL: great er than 40 mg/dL Note: This HDL assay may give artificially low results in patients with liver disease. 12/29/2024 8:46 AM EDT 12/29/2024 8:50 AM EDT us Generic External Data Provider LAB BLOOD ORDERAB LES Final Result [facility] [address] [place] [address] [phone] * VITAMIN D 25-OH (D2 AND D3) (12/04/2024 10:00 AM EDT) Vitamin D, 25-OH, D2 21 ng/mL [facility] Comment:This test was develo ped and its analytical performancecharacteristics have been determined by [employer] [place]. It hasnot been cleared or approved by the U.S. Food and DrugAdministration. This assay has been validated pursuantto the CLIA regulations and is used for clinicalpurposes.THIS TEST WAS PERFORMED AT:[id number] [place] [id number] DEGN MD,PHD Vitamin D, 25-OH, D3 12 ng/mL [facility] Comment:This test was develo ped and its analytical performancecharacteristics have been determined by [employer] [place] [place]. It hasnot been cleared or approved by the U.S. Food and DrugAdministration. This assay has been validated pursuantto the CLIA regulations and is used for clinicalpurposes. Vitamin D, 25-OH, Total 33 30 - 100 ng/mL [facility] Comment:Vitamin D, 25-Hydrox y reports concentrations [...] = 30 ng/mL.For additional information, please refer tohttp://education.[employer] [place]/faq/SYA979(This link is being provided for informational/educational purposes only.) 12/04/2024 10:0 0 AM EDT 12/04/2024 10:00 AM EDT us Generic External Data Provider LAB BLOOD ORDERAB LES Final Result [facility] [address] [place] [address] [phone] * Vitamin B12 (Cobalamin) and Folate Panel, Serum (12/04/2024 10:00 AM EDT) Vitamin B12 392 200 - 900 pg/mL [facility] Comment:NORMAL 200-900 PG/ML INDETERMINATE 160-199 PG/ML DEFICIENT < 160 PG/ML Folate 5.9 > or = 4.0 ng/mL [facility] Comment:Reference Values:> o r = 4.0 ng/mL< 4.0 ng/mL suggests folate deficiency Methotrexate, aminopterin and folinic acid(leucovorin) are chemotherapeutic agents whose molecularstructures are similar to folate; therefore, the Architectfolate assay cannot be used for patients using these drugs. 12/04/2024 10:0 0 AM EDT 12/04/2024 10:00 AM EDT Generic External Data Provider LAB BLOOD ORDERAB LES Final Result Performing Organization Address [facility] Co de Phone Number [facility] [address] [place] [address] [phone] * TSH with Reflex to Free T4 (12/04/2024 10:00 AM EDT) TSH reflex Free T4 1.37 0.32 - 4.0 uIU/mL [facility] 12/04/2024 10:0 0 AM EDT 12/04/2024 10:00 AM EDT Generic External Data Provider LAB BLOOD ORDERAB LES Final Result Performing Organization Address [facility] Phone Number [facility] [address] [place] [address] [phone] * Tissue Transglutaminase Antibody, IgA (12/04/2024 10:00 AM EDT) Transglutaminase IgA <1.0 U/mL [facility] Comment:Value Interpretatio n----- <15.0 Antibody not detected> or = 15.0 Antibody detectedTHIS TEST WAS PERFORMED AT:[employer] [address] [id number] ALFREDO WORTHINGTON MD 12/04/2024 10:0 0 AM EDT 12/04/2024 10:00 AM EDT Generic External Data Provider LAB BLOOD ORDERAB LES Final Result Performing Organization Address [facility] Co de Phone Number [facility] [address] [place] [address] [phone] * Lipase (12/04/2024 10:00 AM EDT) Lipase 26 8 - 78 U/L [facility] 12/04/2024 10:0 0 AM EDT 12/04/2024 10:00 AM EDT Generic External Data Provider LAB BLOOD ORDERAB LES Final Result Performing Organization Address [facility] Co de Phone Number [facility] [address] [place] [address] [phone] * (ABNORMAL) Hepatic Function Panel (12/04/2024 10:00 AM EDT) Bilirubin, Total 0.2 0.0 - 1.0 mg/dL [facility] Bilirubin, Direct <0.2 0.0 - 0.5 mg/dL [facility] Aspartate Amino Transferase 19 5 - 31 U/L [facility] Comment:Slight Hemolysis.Int erpret result with caution. Alanine Aminotransferase 11 0 - 31 U/L [facility] Total Protein 7.7 6.5 - 8.0 g/dL [facility] Albumin Level 4.0 3.5 - 5.0 g/dL [facility] Alkaline Phosphatase 196(H) 39 - 117 U/L [facility] 12/04/2024 10:0 0 AM EDT 12/04/2024 10:00 AM EDT Generic External Data Provider LAB BLOOD ORDERAB LES Final Result Performing Organization Address [facility] Co de Phone Number [facility] [address] [place] [address] [phone] * (ABNORMAL) POCT HGB A1C (08/22/2024 10:00 AM EST) Hemoglobin A1C 9.7(A) 4.0 - 6.0 % QC Media Lot # [id number] Lot# Expiration Date [id number] Blood 08/22/2024 10:0 0 AM EST Nolanravindra Blevins MD POINT OF CARE TEST ENTER/EDIT OR DERABLES Final Result * HEPATITIS C AB W/REFL TO HCV RNA, QN, PCR (11/13/2020 2:31 PM EST) HEPATITIS C ANTIBODY NON-REACT [place] NON-REACT [place] [facility] INDEX 0.01 <1.00 [facility] Comment: ?? HCV antibody was non-reactive. There is no laboratory ?? evidence of HCV infection. ?? In most cases, no further action is required. However, if recent HCV exposure is suspected, a test for HCV RNA (test code 13481) is suggested. ?? For additional information please refer to http://education.[employer]/faq/KUI45n9 (This link is being provided for informational/ educational purposes only.) ?? 11/13/2020 2:31 PM EST Stefany Griffiths MD HISTORICAL/NON ORDERABLE LABS Final Result [facility] [address] * DIGITAL BILATERAL SCREEN 1 (06/22/2018 [...] Eye Exam (04/20/2012) Eye Exam Normal Normal [facility] External Provider HEALTH MAINTENANCE Final Result from Last 3 Months or Most Recently Relevant to Health Maintenance Insurance [facility] C3 Care Teams Rod Tape Operator Relationship Specialty Start Date End Date Name, MD Nolan [address] [place] [phone] PCP - General Family Medicine 06/13/18
--- OUTSIDE RECORDS SUMMARY | 2025-01-15 16:57 | XMS_ITS | Encounter Summary ---
Author Organization [employer] Address [address] [facility] 7t [place] [address] Care Team Providers Care Stockholder Name Role Phone Name, Nolan PADILLA Primary Care Provider [phone] Reason for Visit * Reason Comments Med Refill Encounter Details Date Type Department Care Team ([facility] st Contact Info) Description 09/21/2023 Refill [facility] & [facility]EDS [address] [place], [place] [phone] Name, MD Nolan [address] [place] [address] Hypertension, unspecified type Social History Tobacco Use [...] 9:30 AM EDT Office Visit [facility] MEDICINE [address] [place] [address]97 NameNolan MD [address] [place] [address] 03/07/2025 10:15 AM EDT Office Visit [facility] [address] [place] [address]887 NameNolan MD [address] [place] [address] documented as of this encounter Visit Diagnoses Diagnosis Hypertension, unspecified type documented in this encounter Additional Health Concerns Assessment Noted Time PHQ-9 Depression Total Score: 7 04/18/20 23 10:20 AM EDT documented as of this encounter Care Teams Stockholder Relationship Specialty Start Date End Date NameNolan MD [address] [place] [address] PCP - General Family Medicine 06/13/18 documented as of this encounter
--- OUTSIDE RECORDS SUMMARY | 2025-01-15 16:57 | XMS_ITS | Encounter Summary ---
Author Organization [employer] Address [address] [facility] 7t [place] [address] Care Team Providers Care Resistance Brazer Name Role Phone Name, Nolan PADILLA Primary Care Provider [phone] Encounter Details Date Type Department Care Team (Late st Contact Info) Description 01/13/2025 Patient Outreach [facility] MEDICINE [address] [place], [place] [phone] Name, MD Nolan [address] [place] [address] Social History Tobacco Use Types Packs/Day Years [...] Description 01/17/2025 9:30 AM EDT Office Visit [facility] MED[facility] [address] [place] [address] NameNolan MD [address] [place] [address] 03/07/2025 10:15 AM EDT Office Visit [address] [address] Name, MD Nolan [address] [place] [address] documented as of this encounter Visit Diagnoses Not on filedocumented in this encounter Additional Health Concerns Assessment Noted Time PHQ-9 Depression Total Score: 7 04/18/20 23 10:20 AM EDT documented as of this encounter Care Teams Resistance Brazer Relationship Specialty Start Date End Date NameNolan MD [address] [place] [address] PCP - General Family Medicine 06/13/18 documented as of this encounter
--- OUTSIDE RECORDS SUMMARY | 2025-01-15 16:57 | XMS_ITS | Encounter Summary ---
Author Organization [employer] Address [address] [facility] 7t [place] [address] Care Team Providers Care Patient Scheduler Name Role Phone Name, Nolan PADILLA Primary Care Provider [phone] Reason for Visit * Reason Comments Transition Of Care (Tcm) HDF - scheduled . Encounter Details Date Type Department Care Team ([facility] st Contact Info) Description 01/13/2025 Patient Outreach [facility] MED & PED[facility] [address] [place], [place] [phone] Name, MD Nolan [address] [place] [address] Transition Of Care (Tcm) (HDF - scheduled. ) Social History Tobacco Use Types [...] * Significant Event - Bhavana Fonseca - 01/13/2025 10:49 AM EDT 01/13/25 1041 Hospital Discharges and Admission for [facility] Type of Visit Hospital Admission Date of Admission/Visit 01/07/25 Date of Discharge 01/10/25 [facility] Diagnosis Pneumatosis of intestines Disposition Discharged Home Follow-Up Actions Follow-Up Needed Provider appointment Follow-Up Outcome Spoke to Patient;Booked Appointment Initial Contact Date 01/13/25 CC Bhavana Chapman placed outbound call to patient for HDF outreach. Patient's name and were confirmed. Patient educated on the importance of follow up with provider following inpatient admission. Patient offered an HDF appt. Patient is agreeable to an appointment and has been scheduled for 01/17 at9:30am with Dr. Blevins. Patient provided with education on contacting the Health Center with any questions or concerns prior to the scheduled appointment. Patient educated on extended clinic hours on Mondays and Wednesdays, and Walk-In Urgent Care Located in [facility] of [facility]. Patient provided with after-hours line for [facility], , which offer night time triage service and [facility] CC scanned discharge summary into patient's chart. Biggest concern for appointment at this time is no concerns. Appropriate screenings completed in anticipation of appointment. documented in this encounter Plan of Treatment Upcoming Encounters Date Type Department Care Team ([facility] st Contact Info) Description 01/17/2025 9:30 AM EDT Office Visit [facility] MEDICINE [address] [place] [address] Name, MD Nolan [address] [place] [address] 03/07/2025 10:15 AM EDT Office Visit [facility] MEDICINE [address] [facility] [place] [address] Name, [place] [address] documented as of this encounter Visit Diagnoses Not on filedocumented in this encounter Additional Health Concerns Assessment Noted Time PHQ-9 Depression Total Score: 7 04/18/20 23 10:20 AM EDT documented as of this encounter Care Teams Patient Scheduler Relationship Specialty Start Date End [place] [address] PCP - General Family Medicine 06/13/18 documented as of this encounter
--- OUTSIDE RECORDS SUMMARY | 2025-01-15 16:57 | XMS_ITS | Encounter Summary ---
Author Organization [employer] Address [address] [facility] 7t [place] [address] Care Team Providers Care Power Press Supervisor Name Role Phone Name, Nolan PADILLA Primary Care Provider [phone] Reason for Visit * Reason Comments Med Refill Encounter Details Date Type Department Care Team ([facility] st Contact Info) Description 08/23/2024 Refill [facility] MED & PEDS [address] [place], [place] [phone] Name, MD Nolan [address] [place] [address] Diabetic polyneuropathy associated with type 2 diabetes [...] Description 01/17/2025 9:30 AM EDT Office Visit [facility] MEDICINE [address] [place] [address] NameNolan MD [address] [place] [address] 03/07/2025 10:15 AM EDT Office Visit [facility] MED[facility] [address] [place] [address] 10[address] NameNolan MD [address] [place] [address] documented as of this encounter Visit Diagnoses Diagnosis Diabetic polyneuropathy associated with type 2 diabetes mellitus (CMS/HCC) documented in this encounter Additional Health Concerns Assessment Noted Time PHQ-9 Depression Total Score: 7 04/18/20 23 10:20 AM EDT documented as of this encounter Care Teams Power Press Supervisor Relationship Specialty Start Date End Date NameNolan MD [address] [place] [address] PCP - General Family Medicine 06/13/18 documented as of this encounter
--- OUTSIDE RECORDS SUMMARY | 2025-01-15 16:57 | XMS_ITS | Encounter Summary ---
Author Organization [employer] Address [address] [facility] 7t [place] [address] Care Team Providers Care Instrumentation Manager Name Role Phone Name, Nolan PADILLA Primary Care Provider [phone] Encounter Details Date Type Department Care Team (Late st Contact Info) Description 01/15/2025 Patient Outreach [facility] MED [facility] PEDS [address] [place], [place] [phone] Name, MD Nolan [address] [place] [address] Social History Tobacco Use Types Packs/Day Years [...] Description 01/17/2025 9:30 AM EDT Office Visit [facility] MEDICINE [address] [place] [address] NameNolan MD [address] [place] [address] 03/07/2025 10:15 AM EDT Office Visit [address] [address] Name, MD Nolan [address] [place] [address] documented as of this encounter Visit Diagnoses Not on filedocumented in this encounter Additional Health Concerns Assessment Noted Time PHQ-9 Depression Total Score: 7 04/18/20 23 10:20 AM EDT documented as of this encounter Care Teams Instrumentation Manager Relationship Specialty Start Date End Date NameNolan MD [address] [place] [address] PCP - General Family Medicine 06/13/18 documented as of this encounter
--- OUTSIDE RECORDS SUMMARY | 2025-01-15 16:57 | XMS_ITS | Encounter Summary ---
Author Organization [employer] Address [address] [facility] 7t [place] [address] Care Team Providers Care Temporary Office Assistant Name Role Phone Name, Nolan PADILLA Primary Care Provider Encounter Details Date Type Department Care Team (Late st Contact Info) Description 01/13/2025 Patient Outreach [facility] MEDICINE [address] [place], [place] [phone] Name, MD Nolan [address] [place] [address] Social History Tobacco Use Types Packs/Day Years [...] 9:30 AM EDT Office Visit [facility] MEDICINE [address] [place] [address] NameNolan MD [address] [place] [address] 03/07/2025 10:15 AM EDT Office Visit [address] [address] Name, MD Nolan [address] [place] [address] documented as of this encounter Visit Diagnoses Not on filedocumented in this encounter Additional Health Concerns Assessment Noted Time PHQ-9 Depression Total Score: 7 04/18/20 23 10:20 AM EDT documented as of this encounter Care Teams Temporary Office Assistant Relationship Specialty Start Date End Date NameNolan MD [address] [place] [address] PCP - General Family Medicine 06/13/18 documented as of this encounter
--- OUTSIDE RECORDS SUMMARY | 2025-01-15 16:57 | XMS_ITS | Encounter Summary ---
Author Organization [employer] Address [address] [facility] 7t [place] [address] Care Team Providers Care Customer Service Clerk Name Role Phone Name, Nolan PADILLA Primary Care Provider [phone] Encounter Details Date Type Department Care Team (Late st Contact Info) Description 01/15/2025 Orders Only GENERIC EXTERNAL DATA [...] Description 01/17/2025 9:30 AM EDT Office Visit [address] [address] Name, MD Nolan [address] [place] [address] 03/07/2025 10:15 AM EDT Office Visit [address] [phone] Name, MD Nolan [address] [place] [address] documented as of this encounter Procedures Procedure Name Priority Date/Time Associated Diagnosis Comments VENOUS BLOOD GAS Routine 01/15/2025 4:43 PM EDT documented in this encounter Results * (ABNORMAL) VENOUS BLOOD GAS (01/15/2025 4:43 PM EDT) VBG pH 7.26(L) 7.32 - 7.43 [facility] Comment:METER #: [id number] additional_comment: CbMaddenp VBG PCO2 35 mmHg [facility] Comment:METER #: [id number] additional_comment: CbMaddenp VBG PO2 52 mmHg [facility] Comment:METER #: [id number] additional_comment: CbMaddenp VBG Base Excess -9.7 mmol/L [facility] Comment:METER #: [id number] additional_comment: CbMaddenp VBG HCO3 16(L) 22 - 26 mmol/L [facility] Comment:METER #: [id number] additional_comment: CbMaddenp O2 Sat, Christopher 72.0 % [facility] Comment:METER #: [id number] additional_comment: CbMaddenp 01/15/2025 4:43 PM EDT 01/15/2025 4:46 PM EDT us Generic External Data Provider LAB BLOOD ORDERAB LES Final Result [facility] [address] [place] [address] [phone] documented in this encounter Visit Diagnoses Not on filedocumented in this encounter Additional Health Concerns Assessment Noted Time PHQ-9 Depression Total Score: 7 04/18/20 23 10:20 AM EDT documented as of this encounter Care Teams Customer Service Clerk Relationship Specialty Start Date End Date Name, MD Nolan [address] [place] [address] PCP - General Family Medicine 06/13/18 documented as of this encounter
--- OUTSIDE RECORDS SUMMARY | 2025-01-15 16:57 | XMS_ITS | Encounter Summary ---
Author Organization [employer] Address [address] [facility] 7t [place] [address] Care Team Providers Care Direct Mail Coordinator Name Role Phone Name, Nolan PADILLA Primary Care Provider [phone] Reason for Visit * Reason Comments Care Coordination C3CM/CHW STACIA Irizarry #3 initial outreach_lvm Encounter Details Date Type Department Care Team (Latest Contact Info) Description 01/10/2025 Patient Outreach [facility] MEDICINE [address] [place] [address] Name, MD Nolan [address] [place] [address] Care Coordination (C3CM/STACIA Gonsalves #3 initial outreach_lvm) Social History Tobacco Use Types [...] encounter Progress Notes * Courtney Liu - 01/10/2025 11:55 AM EDT CHW Courtney Liu, placed outbound call to patient to introduce [facility]. No answer at this time. CHW LVM introducing herself from [facility] CM Department with [facility]W'[place], department and direct contact number requesting call back. Will re-attempt to contact within 30 days. and address not confirmed. documented in this encounter Plan of Treatment Upcoming Encounters Date Type Department Care Team (Late st Contact Info) Description 01/17/2025 9:30 AM EDT Office Visit [facility] MEDICINE [address] [place] [phone] NameNolan MD [address] [place] [phone] 03/07/2025 10:15 AM EDT Office Visit [facility] MEDICINE [address] [place] [address] NameNolan MD [address] [place] [address] documented as of this encounter Visit Diagnoses Not on filedocumented in this encounter Additional Health Concerns Assessment Noted Time PHQ-9 Depression Total Score: 7 04/18/20 23 10:20 AM EDT documented as of this encounter Care Teams Direct Mail Coordinator Relationship Specialty Start Date End Date Name, MD Nolan [address] [place] [address] PCP - General Family Medicine 06/13/18 documented as of this encounter
--- OUTSIDE RECORDS SUMMARY | 2025-01-15 16:57 | XMS_ITS | Encounter Summary ---
Author Organization [employer] Address [address] [facility] 7t [place] [address] Care Team Providers Care Mining Technician Name Role Phone Name, Nolan PADILLA Primary Care Provider Encounter Details Date Type Department Care Team (Late st Contact Info) Description 01/14/2025 Patient Outreach [facility] MED & PEDS [address] [place], [place] [phone] Name, MD Nolan [address] [place] [address] Social History Tobacco Use Types Packs/Day Years [...] Description 01/17/2025 9:30 AM EDT Office Visit [facility] MEDICINE [address] [place] [phone] NameNolan MD [address] [place] [phone] 03/07/2025 10:15 AM EDT Office Visit [address] [address] Name, MD Nolan [address] [place] [address] documented as of this encounter Visit Diagnoses Not on filedocumented in this encounter Additional Health Concerns Assessment Noted Time PHQ-9 Depression Total Score: 7 04/18/20 23 10:20 AM EDT documented as of this encounter Care Teams Mining Technician Relationship Specialty Start Date End Date NameNolan MD [address] [place] [address] PCP - General Family Medicine 06/13/18 documented as of this encounter
--- OUTSIDE RECORDS SUMMARY | 2025-01-15 16:57 | XMS_ITS | Encounter Summary ---
Author Organization [employer] Address [address] [facility] 7t [place] [address] Care Team Providers Care Secretarial Stenographer Name Role Phone Name, Nolan PADILLA Primary Care Provider [phone] Reason for Visit * Reason Onset Date Comments Med Refill 07/03/2024 Encounter Details Date Type Department Care Team (Late st Contact Info) Description 07/03/2024 Telephone [facility] MEDICINE [address] [place], [place] [phone] Name, MD Nolan [address] [place] [address] Med Refill Social History Tobacco Use Types [...] 20 MG tablet To be sent to: [facility] - [place], [place] - [address] [place] [address] documented in this encounter Plan of Treatment Upcoming Encounters Date Type Department Care Team ([facility] st Contact Info) Description 01/17/2025 9:30 AM EDT Office Visit [facility] MEDICINE [address] [place] [address] Name, MD Nolan [address] [place] [address] 03/07/2025 10:15 AM EDT Office Visit [facility] MEDICINE [address] [place] [address] Name, MD Nolan [address] [place] [address] documented as of this encounter Visit Diagnoses Not on filedocumented in this encounter Additional Health Concerns Assessment Noted Time PHQ-9 Depression Total Score: 7 04/18/20 10:20 AM EDT documented as of this encounter Care Teams Secretarial Stenographer Relationship Specialty Start Date End Date Name, MD Nolan [address] [place] [address] PCP - General Family Medicine 06/13/18 documented as of this encounter
--- OUTSIDE RECORDS SUMMARY | 2025-01-15 16:57 | XMS_ITS | Encounter Summary ---
Author Organization [employer] Address [address] [facility] 7t [place] [address] Care Team Providers Care Plastic Joint Maker Name Role Phone Name, Nolan PADILLA Primary Care Provider [phone] Reason for Visit * Reason Onset Date Comments Reschedule 10/04/2023 Encounter Details Date Type Department Care Team (Late st Contact Info) Description 10/04/2023 Telephone [facility] MEDICINE [address] [place], [place] [phone] Name, MD Nolan [address] [place] [address] Reschedule Social History Tobacco Use Types Packs/Day [...] t he electric, gas, oil or water [employer] threatened to shut off services in your [...] daughter requesting r/s f/u appt from 10/06/23, flex o writer operator 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 documented in this encounter Plan of Treatment Upcoming Encounters Date Type Department Care Team (Late st Contact Info) Description 01/17/2025 9:30 AM EDT Office Visit [facility] MEDICINE [address] [place] [address] Name, MD Nolan [address] [place] [address] 03/07/2025 10:15 AM EDT Office Visit [facility] MEDICINE [address] [place] [address] Name, MD Nolan [address] [place] [address] documented as of this encounter Visit Diagnoses Not on filedocumented in this encounter Additional Health Concerns Assessment Noted Time PHQ-9 Depression Total Score: 7 04/18/20 23 10:20 AM EDT documented as of this encounter Care Teams Plastic Joint Maker Relationship Specialty Start Date End Date Nolan Blevins MD [address] [place] [address] PCP - General Family Medicine 06/13/18 documented as of this encounter
--- OUTSIDE RECORDS SUMMARY | 2025-01-15 16:57 | XMS_ITS | Encounter Summary ---
Author Organization [employer] Address 75 [facility] 7t [place] [address] Care Team Providers Care Director Organizational Name Role Phone Name, Nolan PADILLA Primary Care Provider [phone] Reason for Visit * Reason Comments Med Refill Encounter Details Date Type Department Care Team ([facility] st Contact Info) Description 08/23/2024 Refill [facility] MED & PEDS [address] [place], [place] [phone] Justyna Manuel MD [address] [place] [address] Depression, unspecified depression type; Diabetes mellitus type [...] Description 01/17/2025 9:30 AM EDT Office Visit [facility] MEDICINE [address] [place] [phone] NameNolan MD [address] [place] [address] 03/07/2025 10:15 AM EDT Office Visit [facility] MEDICINE [address] [place] [address] Name, MD Nolan [address] [place] [address] documented as of this encounter Visit Diagnoses Diagnosis Depression, unspecified depression type Diabetes mellitus type 2 in nonobese ([facility]) Type II or unspecified type diabetes mellitus without mention of complication, not stated as uncontrolled documented in this encounter Additional Health Concerns Assessment Noted Time PHQ-9 Depression Total Score: 7 04/18/20 23 10:20 AM EDT documented as of this encounter Care Teams Director Organizational Relationship Specialty Start Date End Date Name, MD Nolan [address] [place] [address] PCP - General Family Medicine 06/13/18 documented as of this encounter
--- OUTSIDE RECORDS SUMMARY | 2025-01-15 16:57 | XMS_ITS | Encounter Summary ---
Author Organization [employer] Address 75 [facility] 7t [place] [address] Care Team Providers Care Lasting Machine Operator Hand Method Name Role Phone Name, Nolan PADILLA Primary Care Provider [phone] Encounter Details Date Type Department Care Team (Late st Contact Info) Description 01/10/2025 Patient Outreach [facility] MEDICINE [address] [place], [place] [phone] Name, MD Nolan [address] [place] [address] Social History Tobacco Use Types Packs/Day Years [...] 9:30 AM EDT Office Visit [facility] MEDICINE [address] [place] [address] NameNolan MD [address] [place] [address] 03/07/2025 10:15 AM EDT Office Visit [address] [address] Name, MD Nolan [address] [place] [address] documented as of this encounter Visit Diagnoses Not on filedocumented in this encounter Additional Health Concerns Assessment Noted Time PHQ-9 Depression Total Score: 7 04/18/20 23 10:20 AM EDT documented as of this encounter Care Teams Lasting Machine Operator Hand Method Relationship Specialty Start Date End Date NameNolan MD [address] [place] [address] PCP - General Family Medicine 06/13/18 documented as of this encounter
[2025-01-15 16:59] LABS: White Blood Count 7.1 X10*3/uL (4.8-10.8)
[2025-01-15 17:03] LABS: B Type Natriuretic Peptide 444 pg/mL (<100)
[2025-01-15 17:04] LABS: Alanine Aminotransferase < 6 U/L (0-31); Albumin Level 1.9 g/dL (3.5-5.0); Alkaline Phosphatase 136 U/L (39-117); Anion Gap 15 (12-20); Aspartate Amino Transferase 30 U/L (5-31); Bilirubin Direct 0.3 mg/dL (0.0-0.5); Bilirubin Total 0.5 mg/dL (0.0-1.0); Blood Urea Nitrogen 25 mg/dL (9-16); Calcium 7.5 mg/dL (8.4-10.2); Carbon Dioxide 16 mmol/L (22-29); Chloride 111 mmol/L (96-108); Estimated Glomerular Filt Rate 46; Glucose Random 190 mg/dL (60-115); Potassium 3.6 mmol/L (3.3-5.1); Sodium 138 mmol/L (135-145); Total Protein 4.7 g/dL (6.5-8.0); Troponin-I High Sensitivity < 2.7 ng/L (<3.5-17.0)
--- NOTE | 2025-01-15 17:05 | PC.NURSE ---
Pt from with reported sat of 40%, on arrival skin sl sallow without increased work of breathing however pt noted tachypneic at 28. +4 pitting edema noted to b/l ankles. Crackles noted to b/l bases. NSR on tele. Pt initially on NRB but then placed on Bipap with settings 18/10/36% (from 28%) Family at bedside. Dentures removed and at bedside 20g iv placed to left ac and U/S guided 20g placed to right ac but Dr Sanchez. Labs and EKG obtained
[2025-01-15 17:06] LABS: Lactic Acid 2.6 mmol/L (0.5-2.0)
[2025-01-15 17:09] LABS: Neutrophils Percent Manual 35 % (45-73)
[2025-01-15 17:13] LABS: Acanthocytes 3+ (>5) /OIF; Band Neutrophils Percent 46 % (3-5); Lymphocytes Percent Manual 14 % (20-40); Metamyelocytes Absolute 0.2 X10*3/uL; Metamyelocytes Percent 3 %; Monocytes Absolute Manual 0.1 X10*3/uL (0.1-1.2); Monocytes Percent Manual 2 % (2-11); Neutrophils Absolute Manual 5.8 X10*3/uL (2.0-8.3); RBC Morphology NOTED; Schistocytes 1+ (0-2) /OIF; Toxic Vacuolation PRESENT
[2025-01-15 17:14] LABS: Platelet Estimate INCREASED (NORMAL); Platelet Morphology Comment NORMAL
[2025-01-15] MEDS: Albumin Human 25 % 100 ML 133.33 ML IV ×4 (17:55→22:07)
[2025-01-15 17:58] LABS: Influenza A PCR NEGATIVE (Negative); Influenza B PCR NEGATIVE (Negative); Resp Syncy Virus RNA Qual PCR NEGATIVE (Negative); SARS COV2 PCR INHOUSE NEGATIVE (Negative)
[2025-01-15] MEDS: Piperacillin Sodium/Tazobactam 3.375 GM in 0.9 % Sodium Chloride 50 ML IV ×2 (18:06→23:41)
[2025-01-15 18:39] LABS: Reflex Lactate? Lactic Acid Added
[2025-01-15] MEDS: vancomycin HCL 1,500 MG in 0.9 % Sodium Chloride 500 ML 333.33 MG IV (19:11)
[2025-01-15 19:27] LABS: ~Lactic Acid-LAB USE ONLY 1.2 mmol/L (0.5-2.0)
--- NOTE | 2025-01-15 19:29 | PHA.MEDREC ---
Addendum entered by Babak Gonzalez 01/15/25 19:47: reviewed, additionally Benztropine was held at last admission on 01/10 until patient can see her primary care doctor again to determine if it is needed. Will confirm on med list for now and alert provider it should be held. Original Note: Pharmacy Consult ? Medication Reconciliation Pharmacy has completed the medication reconciliation. Spoke with patients daughter at bedside who was able to help confirm her moms medications and stated her mom was just here 01/07-01/10 and that DC packet should be up to date. The daughter confirmed the pt is not taking the Atorvastain and states she has not in months even tho the pt picks it up still and doesn't take it even with recent Dc packets indicating she is taking it. The daughter confirmed the pt is no longer taking Trulicity, Metoprolol and Mirtazapine as of 1 week ago when they went to see the pt . The daughter couldn't remember if her mom was taking Esomeprazole or Gabapentin anymore; it was confirmed on the Dc packet from 01/10. The daughter confirmed the pt takes Lantus 20 units at bedtime. The daughter confirmed her mom started the Cefuroxime and Metronidazole this past Saturday 01/13.
--- NOTE | 2025-01-15 20:07 | PC.NURSE ---
pt taken to CT scan then to ICU. report given to sophie curriculum developer prior to transport. industrial services worker and daughter present during transport.
--- NOTE | 2025-01-15 20:11 | PC.NURSE ---
2nd bag of albumin finished at 1930. not 2005.
[2025-01-15] MEDS: Morphine Sulfate 2 MG/ML CARTRIDGE IVPUSH (20:20)
--- NOTE | 2025-01-15 20:21 | PM.CCHP ---
History of Present Illness Date of Service: 01/15/25 Attending physician on admission: Ovidio Duggan Chief Complaint: Acute Hypoxic Resp Failure HPI: ?59-year-old female with underlying history of chronic kidney disease stage 3 baseline creatinine of 1.7-2, hypertension, hyperlipidemia, diabetes, presyncopal episodes, orthostatic hypotension, recurrent UTIs, chronic diarrhea of unknown etiology, anxiety, migraines, asthma, depression, excess smoker among other things who was just admitted and discharged from this hospital close to 2 weeks ago.? At the time the patient had been admitted due to presyncopal episodes in the setting of orthostatic hypotension due to dehydration and chronic diarrhea.? She had also been noted to be anemic post transfusion of 1 packed red blood cells and iron studies.? Additionally labs were significant for non-anion gap acidosis due to diarrhea, placed on oral bicarbonate..? There were findings on CT consistent with possible bowel wall pneumatosis for which she had GI and surgery evaluations both recommended supportive therapy with IV fluids and antibiotics.? Repeated CT studies were consistent with colitis and no evidence of pneumatosis intestinalis.? The patient had been discharged on Flagyl and Ceftin for 1 more week which she was to finish around this time. Today the patient presented to emergency room with her daughter who reports the patient has had significant difficulty breathing.? The patient's appetite has been significantly diminished and she is noticeably more short of breath.? On arrival to the ER, the patient was noted to be hypoxic, hypotensive , tachycardic and tachypneic, however afebrile.? Given the concern for respiratory distress the patient was placed on non-rebreather then BiPAP. ?Her workup was significant for white count 7.3, H and H of 6.9 and 19.3 respectively, platelets 409, sodium 140, potassium of 3.7, chloride 114, carbon dioxide 15, BUN 23, creatinine 1.08, blood sugar 172.? Her differential does show 46% and toxic vacuolation.? Venous blood gas shows pH of 7.26, pCO2 35, PO2 52 and HC03 of 16.? Initial lactic acid 2.6.? Magnesium 2.0.? Normal liver functions BNP 444 which is not significantly higher than previous baseline, troponin less than 2.7.? Respiratory panel negative. ?Ultrasound done by the ER physician at bedside show preserved ejection fraction and Mcclelland B lines. ?The patient is noted to be significantly swollen. ?No IV fluids were administered due to risk of further CHF, however albumin at 01:33 mL/hour x2 were given along with Zosyn and vancomycin. ?Chest x-ray shows evidence of hypoventilation bilateral interstitial and alveolar opacities suggesting infection or edema. ?Her EKG shows sinus rhythm with rate of 94 beats per minute.? There is no ST elevations, no depressions.? QT 386 MS.? Looks unchanged from January 07, 2025 study. During my encounter, the patient is alert and oriented x3 no acute distress he is able to follow commands, on BiPAP with minimal accessory muscle usage, she is tachypneic at 36 breaths per minute.? Unable to answer questions.? The patient will be transferred to the ICU for further management. Review of Systems Review of Systems: Yes Other (unable to obtain on BiPaP) [facility] Past Medical History Medical History Dysphagia Anxiety disorder GERD (gastroesophageal reflux disease) Migraines Asthma On beta jordyn at home Elevated cholesterol HTN (hypertension) Smoker Diabetes Depression Heartburn Surgical History Surgical History Hx of left knee surgery History of tubal ligation History of esophagogastroduodenoscopy (EGD) H/O colonoscopy Hx of cholecystectomy Social History Social History Household Members: Children Household Members Other:: Daughter Housing: Apartment Housing Other:: pt states she lives in an apartment at her daughter's house Do you presently have visiting nurse or other home services: Yes (Daughter is [employer]) Alcohol intake: former Comment: 1:1 sitter Patient Tobacco Use Status: Current everyday Tobacco user Tobacco use type: Cigarette Cigarette Packs Per Day: 1 Cigarettes Per Day: 20.0 Years Smoked: 15 Smoked in Last 30 Days: Yes e-Cigarette/Vaping Use: Never Used Second Hand Smoke Exposure: Yes Use of substances other than those prescribed or required for medical reasons: No Currently Displaying Signs/Symptoms of Drug Intoxication Withdrawal: No Have you been hit, kicked, punched, or otherwise hurt by someone within the past year? If so, by whom?: No Do you feel safe in your current relationship?: No Current Relationship Is there a partner from a previous relationship who is making you feel unsafe now?: No Are you made to feel afraid or neglected: No Advance Directives: No Advance Directives Information Provided: Yes Do you have a plan to hurt others: No Plan Recently lost weight without trying: Unsure Eating poorly because of decreased appetite: Yes Nutrition Risks: Poor intake 0-25% >4 days Patient : No : No service: No Current occupational status: disabled Travel History Ebola Risk: Travel/Contact With Anyone From Affected Area/s: No History of recent travel: No Recent Travel in [facility] Within the Last 8 Weeks: No Meds Allergies Allergy/AdvReac Type Severity Reaction Status Date / Time iron Allergy Mild Difficulty Verified 01/15/25 16:21 Breathing Iodinated Contrast Media Allergy Unknown UNKNOWN Verified 01/15/25 16:21 [IV Dye, Iodine Containing] iodine [IODINE] Allergy Unknown RASH Verified 01/15/25 16:21 seafood Allergy Unknown Unknown Verified 01/15/25 16:21 Active Medications: Current Medications Famotidine (Famotidine/Pf 20 Mg/2 Ml Vial) 20 mg IVPUSH BID SHAWN Norepinephrine Bitartrate (Levophed) 8 mg in 250 mls @ 0 mls/hr IVCONT .Q0M SHAWN; Protocol Furosemide 200 mg/ Sodium (Chloride) 100 mls @ 2.5 mls/hr IVCONT .Q24H SHAWN Morphine Sulfate (Morphine Sulfate 2 Mg/Ml Cartridge) 2 mg IVPUSH Q4H PRN; Protocol PRN Reason: distress Ondansetron HCl (Ondansetron Hcl 4 Mg/2 Ml Vial) 4 mg IVPUSH Q8H PRN PRN Reason: Nausea and Vomiting Sodium Chloride (0.9 % Sodium Chloride Flush 3 Ml Syringe) 3 ml IVFLUSH QSHIFT [facility] Home Medications ?Medication ?Instructions ?Recorded ?Confirmed ?Last Taken ?Type aspirin 81 mg tablet,delayed 81 mg PO DAILY 04/21/22 01/15/25 01/15/25 History release benztropine 0.5 mg tablet 0.5 mg PO BID 04/21/22 01/15/25 01/07/25 History insulin syringe-needle U-100 0.5 #10 ea 04/21/22 12/26/24 Unknown History mL 30 gauge x 1/2 (UltiCare) haloperidol 5 mg tablet 1 tab PO BID 05/06/22 01/15/25 01/15/25 History gabapentin 100 mg capsule 100 mg PO BEDTIME 05/30/24 01/15/25 01/06/25 History insulin glargine 100 unit/mL (3 20 unit subcut BEDTIME 08/27/24 01/15/25 01/15/25 History mL) subcutaneous pen (Lantus Solostar U-100 Insulin) blood sugar diagnostic (FreeStyle #10 ea 12/04/24 12/26/24 Unknown History Lite Strips) lancets 33 gauge (TRUEplus Lancets) #100 ea 12/04/24 12/26/24 Unknown History pen needle, diabetic 31 gauge x #100 ea 12/04/24 12/26/24 Unknown History 1/ (Easy Touch) esomeprazole magnesium 40 mg 40 mg PO DAILY@0630 12/30/24 01/15/25 01/07/25 History capsule,delayed release (Nexium) Physical Exam Vital Signs: Vital Signs: Last Vital Signs Temp 96.3 F L 01/15/25 18:03 Pulse 103 H 01/15/25 19:50 Resp 18 01/15/25 19:50 BP 111/61 01/15/25 19:57 Pulse Ox 95 01/15/25 19:50 O2 Del Method Non-Rebreather Ma sk 01/15/25 19:50 FiO2 35 01/15/25 20:06 BMI result Body Mass Index 24.6 Sepsis exam done at 20:00 General:? Alert oriented x3 no acute distress. No accessory muscle usage.? Following all commands.? Speaks Nepalese in full sentences. Looks a lot older than her age. Skin: ?Bilateral lower extremity 2+ pitting edema in an ascending manner with anasarca like state up to the groin area. ?Thin, Intact, no lesions, edema, erythema, clubbing or cyanosis.? No ulcers. HEENT:? Head is normocephalic, atraumatic, pupils equal. Buccal mucosa is dry. Neck is supple without lymphadenopathy. Cardiac:? Tachycardic 102 with clear S1-S2, S3 gallop of the left lower sternal border.? No rubs or murmurs. no JVD Pulmonary:? Diminished lung sounds bilaterally fine expiratory wheezing bilaterally .? Diffuse bilateral crackles at the bases with fine rhonchi left more than right lung base. Abdomen:? Protuberant, positive bowel sounds in all 4 quadrants.? Soft, nontender, no rebound or guarding.? Presacral edema is noted at 2+.? No CVA tenderness. Musculoskeletal:? Moving all 4 extremities upon request a major joints, there is no crepitus or tenderness.? The strength is 5/5 bilaterally and throughout all 4 extremities.? Diffuse leg edema as above noted.? no calf tenderness , no leg asymmetry.? Gait not assessed at this point. Neurologic:? As above.? No focal deficits noted. Vascular:? 2+ pulses upper and lower extremities distally.? Less than 2nd capillary refill of fingers and toes bilaterally upper and lower extremities Results Labs 01/16/25 14:21 01/16/25 20:16 Labs: Laboratory Results - last 24 hr 01/15/25 01/15/25 01/15/25 16:37 16:38 16:43 MCV 81.7 MCH 28.2 MCHC 34.6 RDW 16.6 H Plt Count 462 H D MPV 9.5 Immature Gran % (Auto) Cancelled Neut % (Auto) Cancelled Lymph % (Auto) Cancelled [place] % (Auto) Cancelled Eos % (Auto) Cancelled Baso % (Auto) Cancelled Lymph # (Auto) Cancelled [place] # (Auto) Cancelled Eos # (Auto) Cancelled Baso # (Auto) Cancelled Abs Immat Gran (auto) Cancelled Absolute Neuts (auto) Cancelled Absolute Nucleated RBC 0.000 Nucleated RBC % (auto) 0.0 Neutrophils % (Manual) 35 L Band Neutrophils % 46 H Lymphocytes % (Manual) 14 L Monocytes % (Manual) 2 Metamyelocytes % 3 Abs Neuts (Manual) 5.8 Lymphocytes # (Manual) 1.0 L Monocytes # (Manual) 0.1 Metamyelocytes # 0.2 Toxic Vacuolation PRESENT Platelet Estimate INCREASED Plt Morphology Comment NORMAL RBC Morphology NOTED Acanthocytes (Spur) 3+ (>5) Schistocytes 1+ (0-2) PT 22.4 H D INR 1.9 H VBG pH 7.26 L VBG pCO2 35 VBG pO2 52 VBG HCO3 16 L VBG O2 Saturation 72.0 VBG Base Excess -9.7 Anion Gap 15 Estim Creat Clear Calc 44.0 Estimated GFR 46 Random Glucose 190 H Lactic Acid 2.6 H* Lactic Acid F/U @ 2Hr Calcium 7.5 L Magnesium 2.0 Total Bilirubin 0.5 Direct Bilirubin 0.3 AST 30 ALT < 6 Alkaline Phosphatase 136 H B-Natriuretic Peptide 444 H Total Protein 4.7 L Albumin 1.9 L Influenza Type A (PCR) NEGATIVE Influenza Type B (PCR) NEGATIVE RSV RNA Qual (PCR) NEGATIVE SARS-CoV-2 RNA (RT-PCR) NEGATIVE 01/15/25 19:08 MCV MCH MCHC RDW Plt Count MPV Immature Gran % (Auto) Neut % (Auto) Lymph % (Auto) [place] % (Auto) Eos % (Auto) Baso % (Auto) Lymph # (Auto) [place] # (Auto) Eos # (Auto) Baso # (Auto) Abs Immat Gran (auto) Absolute Neuts (auto) Absolute Nucleated RBC Nucleated RBC % (auto) Neutrophils % (Manual) Band Neutrophils % Lymphocytes % (Manual) Monocytes % (Manual) Metamyelocytes % Abs Neuts (Manual) Lymphocytes # (Manual) Monocytes # (Manual) Metamyelocytes # Toxic Vacuolation Platelet Estimate Plt Morphology Comment RBC Morphology Acanthocytes (Spur) Schistocytes PT INR VBG pH VBG pCO2 VBG pO2 VBG HCO3 VBG O2 Saturation VBG Base Excess Anion Gap Estim Creat Clear Calc Estimated GFR Random Glucose Lactic Acid Lactic Acid F/U @ 2Hr 1.2 Calcium Magnesium Total Bilirubin Direct Bilirubin AST ALT Alkaline Phosphatase B-Natriuretic Peptide Total Protein Albumin Influenza Type A (PCR) Influenza Type B (PCR) RSV RNA Qual (PCR) SARS-CoV-2 RNA (RT-PCR) Assessment and Plan (1) Acute hypoxic respiratory failure: Status: Acute Plan ASSESSMENT : 1. Acute hypoxic respiratory failure likely multifactorial in the setting of CHF and possible nosocomial pneumonia of bilateral lungs 2. Acute sepsis likely from bilateral lung pneumonia rule out UTI component 3. Acute on chronic CHF with anasarca state unknown ejection fraction of 55-60% without diastolic dysfunction per echo on December of this year 4. Acute lactic and metabolic acidosis due to # 2.? (improve) 5. Acute on chronic anemia likely of chronic disease rule out microscopic GI bleed as she had positive occult stools during this past admission (worsening # 1) 6. Reactive tachycardia 7. Hypoalbuminemia likely contributing to diffuse edema 8. Glucosuria and proteinuria 9. History of chronic kidney disease stage 3 to 4 with baseline creatinine of 1.7-2 10. Bandemia and toxic vacuolation likely due to underlying bacteremia 11. Pseudo hypocalcemia with corrected calcium of 8.8 12. Chronic noninfectious diarrhea PLAN OF CARE: Admit the patient to the ICU, after the patient has a CT chest abdomen and pelvis kindly requested for further workup and definition of underlying issues, monitor vital signs, I's and O's, continue with BiPAP support.? We will start her on a Lasix drip while also increasing her oncotic pressure with albumin, opioids for respiratory distress and to decrease tachypnea, if patient tolerates may switch her to high-flow.? Sputum culture Gram stain. ?Continue with Zosyn and vancomycin renally adjusted doses. The patient can not receive IV fluids due to risk of further CHF.? She will receive albumin at 133 mL/hour.? Bladder scan was performed the patient has more than 500 cc in the bladder is not feeling like voiding therefore Carrillo catheter will be placed for fluid management, urine culture and Gram stain will be obtained.? Her BP did come down with diuretics so will place her on Levophed. Monitor H&H closely, I had a lengthy discussion with the patient and family members regarding the possibility of transfusion to which they agree, risks benefits were discussed in detail.? They also clarified their ongoing desire for full code status.? Insulin sliding scale q.6 hours.? Repeat labs in the morning as well as blood gas.? GI consult for evaluation of positive stools, anemia? EGD. GI PROPHYLAXIS: ?IV ppi. DVT PROPHYLAXIS:? Pneumatic stockings only, heparin discontinued as H&H is lower than previously seen Follow-up focused sepsis exam done at 02:00 on 01/16/2025 General:? Alert oriented x; mild distress.? Mild accessory muscle usage. No accessory muscle usage.? Following all commands.? Tachypneic.? Somewhat anxious. Cardiac:? Tachycardic 102 with clear S1-S2, S3 gallop of the left lower sternal border.? No rubs or murmurs. Pulmonary:? Diminished lung sounds bilaterally fine expiratory wheezing bilaterally .? Diffuse bilateral crackles at the bases with fine rhonchi left more than right lung base. Neurologic:? As above.? No focal deficits noted. Vascular:? 2+ pulses upper and lower extremities distally.? Less than 2nd capillary refill of fingers and toes bilaterally upper and lower extremities Continue with the above-mentioned plan, H and H has come down below 7, given the patient is getting diuretics we will transfuse 2 units of packed red blood cells.?Stool guaiac studies.? Protonix b.i.d. further albumin replacement. Clinical update 0645 am On 06:30, nurses reported the patient who was still on BiPAP, hemodynamically stable, satting well however had increase accessory muscle usage, worsened tachypnea and decreased mental status reactivity. The patient had receive 0.5 mg of Dilaudid IV for respiratory distress about 2 hours prior. Pupils are pinpoint but the patient is answering to her name and upon verbal stimuli when I speak to her in Nepalese. Follows commands but is clear that she is working hard to breathe. Narcan 0.4 mg IV push was given with good reactivity, patient more awake but still having difficulty breathing. Based on the discussion I had with the patient and the family member (her daughter) overnight regarding the possibility of resuscitation intubation in case there was any type of decompensation or negative event, they both agreed that the patient would be full code. The decision was made to intubate, please see the procedure note for details. The patient was intubated successfully and without any complications. Post intubation x-ray reveals good placement of the endotracheal tube. All of the above events were passed on to the patient's daughter over the phone this morning at 06:40. She understands that we had to intubate her for her own protection. Additionally, while intubating I noticed there was some dry blood in the posterior pharynx. I suspect that I believe the patient is having an upper GI bleed. Her INR is elevated but the patient is not on any anticoagulations and her liver function is completely normal. Vitamin K 5 mg IV push will be given. GI consult has been placed, likely the patient will need an endoscopy. All of the above will be communicated to Dr. Duggan upon signing out the service. Critical care time used for critical evaluation of this patient, diagnosis, treatment and coordination of care, review her records and documentation TOTAL CRITICAL CARE TIME? 120? MIN . discussion and coordination with consultants, completely separate from any procedures performed. Patient's care was discussed in detail with Dr. Duggan who is aware of all the above as well as the plan of care for this patient.
[2025-01-15 20:29] LABS: Glucose, Whole Blood 169 mg/dL (60-115)
[2025-01-15] MEDS: Famotidine/PF 20 MG/2 ML VIAL IVPUSH (20:47)
[2025-01-15 20:51] LABS: Mean Corpuscular HGB Conc 35.8 g/dl (31.0-35.0); Mean Corpuscular Volume 81.1 fL (80.0-98.0); Platelet Count 409 X10*3/uL (160-400); Red Blood Count 2.38 X10*6/uL (4.20-5.50); Red Cell Distribution Width 16.5 % (11.0-16.0); White Blood Count 7.3 X10*3/uL (4.8-10.8)
[2025-01-15 20:53] LABS: Venous Blood Gas Refer to POC result
[2025-01-15 20:54] LABS: VBG Base Excess -7.3 mmol/L; VBG HCO3 16 mmol/L (22-26); VBG pCO2 27 mmHg; VBG pH 7.38 (7.32-7.43); VBG pO2 41 mmHg
[2025-01-15 20:58] LABS: Hematocrit 19.3 % (37.0-47.0)
--- NOTE | 2025-01-15 20:58 | PHA.PROG ---
Admission Date/Time: January 15, 2025 19:12 Indication: Sepsis Weight in k.049 kg Adjusted body weight in Kg: [place] body weight in Kg: Obesity Dosing Indication % IBW: BMI 24.6 Serum Creatinine - Last 168 Hours 01/15/25 16:37 Creatinine 1.20 Estimated CrCl and GFR - Last 168 Hours 01/15/25 16:37 Estim Creat Clear Calc 44.0 Estimated GFR 46 Vancomycin Loading Dose: 1500mg X1 Current Vancomycin Dosing Regimen: 1250mg Q24H Vancomycin Monitoring using AUC goal of 400 - 600 range with trough as surrogate marker: 552 Date and Time for next Vancomycin Level to be drawn: 01/17 @1700 Pharmacist Comments on Vancomycin Plan: Pt's SCr 1.2, starting off 1250mg Q24 to target goal trough of 16.5 - per indication to get patient into range. To be adjusted as needed per renal fx and trough on 01/17 Vancomycin dosing will take advantage of [employer] as a clinical decision support tool that uses Bayesian modeling to calculate individual patient's pharmacokinetic parameters and forecast the patient's drug concentration time course with the target goal AUC 24 range of 400 - 600 mg/L/hr.
[2025-01-15 21:00] LABS: Hemoglobin 6.9 g/dl (12.0-16.0)
[2025-01-15] MEDS: Furosemide 200 MG in 0.9 % Sodium Chloride 80 ML IVCONT (21:07)
[2025-01-15 21:10] LABS: Alanine Aminotransferase < 6 U/L (0-31); Albumin Level 2.3 g/dL (3.5-5.0); Alkaline Phosphatase 96 U/L (39-117); Anion Gap 15 (12-20); Aspartate Amino Transferase 31 U/L (5-31); Bilirubin Total 0.6 mg/dL (0.0-1.0); Blood Urea Nitrogen 23 mg/dL (9-16); Calcium 7.2 mg/dL (8.4-10.2); Carbon Dioxide 15 mmol/L (22-29); Chloride 114 mmol/L (96-108); Creatinine Clr Calc Pharmacy 48.9; Estimated Glomerular Filt Rate 52; Glucose Random 172 mg/dL (60-115); Phosphorus 3.3 mg/dL (2.7-4.5); Potassium 3.7 mmol/L (3.3-5.1); Sodium 140 mmol/L (135-145); Total Protein 4.5 g/dL (6.5-8.0)
[2025-01-15 21:15] LABS: Band Neutrophils Percent 56 % (3-5); Lymphocytes Absolute Manual 1.1 X10*3/uL (1.2-4.9); Lymphocytes Percent Manual 15 % (20-40); Metamyelocytes Absolute 0.3 X10*3/uL; Metamyelocytes Percent 4 %; Monocytes Absolute Manual 0.1 X10*3/uL (0.1-1.2); Monocytes Percent Manual 1 % (2-11); Neutrophils Absolute Manual 5.8 X10*3/uL (2.0-8.3); Neutrophils Percent Manual 24 % (45-73)
[2025-01-15 21:16] LABS: Acanthocytes 3+ (>5) /OIF; RBC Morphology NOTED
[2025-01-15 21:17] LABS: Schistocytes 1+ (0-2) /OIF; Smudge Cells PRESENT; Toxic Vacuolation PRESENT
[2025-01-15 21:18] LABS: Platelet Estimate INCREASED (NORMAL); Platelet Morphology Comment NORMAL
[2025-01-15 21:19] LABS: Appearance Urine Clear; Color Urine Dark Yellow; Glucose Urine UA 500 mg/dL (Negative); Leukocyte Esterase Urine Trace (Negative); Nitrite Urine Negative (Negative); Specific Gravity - Urine 1.025 (1.005-1.025); UMIC TRIGGER UACC YES; Urine Blood Negative (Negative); Urine Ketones Trace mg/dL (Negative); Urine Protein 30 (1+) mg/dL (Neg-Trace)
[2025-01-15 21:24] LABS: Bacteria Urine None Seen (None Seen); RBC Urine 0-2 /HPF (0-2); Squamous Epithelial Cell Urine 0-2 /HPF (0-2); WBC Urine 0-5 /HPF (0-5)
[2025-01-15] MEDS: Norepinephrine Bitartrate/D5W 8 MG/250 ML PLAST..BAG 5.91 MG IVCONT (23:40)
[2025-01-15] MEDS: Potassium Chloride ER 20 MEQ TAB.ER.PRT 40 MEQ PO (23:59)
[2025-01-16] VITALS (58 sets, daily range): BP systolic 76–138; BP diastolic 36–70; PULSE 77–109; RESP 16–40; TEMP 33–37.5; O2SAT 90–98; BMI 31.7
[2025-01-16 00:05] LABS: Glucose, Whole Blood 160 mg/dL (60-115)
[2025-01-16] MEDS: Sodium Bicarbonate 8.4% 50 MEQ/50 ML SYRINGE 100 MEQ IVPUSH (00:10)
[2025-01-16] MEDS: Albumin Human 25 % 100 ML 133.33 ML IV ×4 (00:13→23:57)
[2025-01-16] MEDS: Morphine Sulfate 2 MG/ML CARTRIDGE IVPUSH (00:18)
[2025-01-16 01:00] LABS: VBG Base Excess -4.2 mmol/L; VBG HCO3 18 mmol/L (22-26); VBG pCO2 24 mmHg; VBG pH 7.47 (7.32-7.43); VBG pO2 48 mmHg
[2025-01-16] MEDS: HYDROmorphone HCl 0.5 MG/0.5 ML SYRINGE IVPUSH ×2 (01:00→03:41)
[2025-01-16 01:04] LABS: Hematocrit 18.7 % (37.0-47.0); Hemoglobin 6.6 g/dl (12.0-16.0)
[2025-01-16 01:19] LABS: Alanine Aminotransferase < 6 U/L (0-31); Albumin Level 3.4 g/dL (3.5-5.0); Alkaline Phosphatase 90 U/L (39-117); Anion Gap 18 (12-20); Aspartate Amino Transferase 15 U/L (5-31); Bilirubin Total 0.8 mg/dL (0.0-1.0); Blood Urea Nitrogen 23 mg/dL (9-16); Calcium 7.8 mg/dL (8.4-10.2); Carbon Dioxide 18 mmol/L (22-29); Chloride 111 mmol/L (96-108); Creatinine Clr Calc Pharmacy 53.1; Estimated Glomerular Filt Rate 49; Glucose Random 169 mg/dL (60-115); Potassium 3.6 mmol/L (3.3-5.1); Sodium 143 mmol/L (135-145); Total Protein 5.1 g/dL (6.5-8.0)
[2025-01-16 01:24] LABS: Venous Blood Gas Refer to POC result
[2025-01-16] MEDS: Pantoprazole Sodium 40 MG/10 ML VIAL 80 MG IVPUSH (01:25)
[2025-01-16] MEDS: Pantoprazole Sodium 40 MG/10 ML VIAL IVPUSH ×2 (04:41→15:35)
[2025-01-16] MEDS: Piperacillin Sodium/Tazobactam 3.375 GM in 0.9 % Sodium Chloride 50 ML IV ×4 (04:41→23:20)
[2025-01-16 05:37] LABS: VBG Base Excess -4.4 mmol/L; VBG HCO3 21 mmol/L (22-26); VBG pCO2 40 mmHg; VBG pH 7.32 (7.32-7.43); VBG pO2 63 mmHg
[2025-01-16 05:46] LABS: Hematocrit 22.1 % (37.0-47.0); Hemoglobin 7.8 g/dl (12.0-16.0); Mean Corpuscular HGB Conc 35.3 g/dl (31.0-35.0); Mean Corpuscular Hemoglobin 29.2 pg (27.0-33.0); Mean Corpuscular Volume 82.8 fL (80.0-98.0); Mean Platelet Volume 9.3 fL (9.4-12.3); Platelet Count 319 X10*3/uL (160-400); Red Blood Count 2.67 X10*6/uL (4.20-5.50); Red Cell Distribution Width 16.2 % (11.0-16.0); White Blood Count 6.4 X10*3/uL (4.8-10.8)
[2025-01-16 05:50] LABS: Venous Blood Gas Refer to POC result
[2025-01-16 05:54] LABS: INTERNATIONAL NORM RATIO 2.2 (0.9-1.1); Prothrombin Time 26.2 SEC (10.9-12.4)
[2025-01-16 06:04] LABS: Band Neutrophils Percent 41 % (3-5); Lymphocytes Absolute Manual 1.3 X10*3/uL (1.2-4.9); Lymphocytes Percent Manual 20 % (20-40); Metamyelocytes Absolute 0.2 X10*3/uL; Metamyelocytes Percent 3 %; Monocytes Absolute Manual 0.3 X10*3/uL (0.1-1.2); Monocytes Percent Manual 4 % (2-11); Myelocytes Absolute 0.1 X10*/uL; Myelocytes Percent 1 %; Neutrophils Absolute Manual 4.6 X10*3/uL (2.0-8.3); Neutrophils Percent Manual 31 % (45-73)
[2025-01-16 06:06] LABS: Alanine Aminotransferase < 6 U/L (0-31); Albumin Level 3.6 g/dL (3.5-5.0); Anion Gap 15 (12-20); Aspartate Amino Transferase 25 U/L (5-31); Bilirubin Total 0.8 mg/dL (0.0-1.0); Blood Urea Nitrogen 23 mg/dL (9-16); Calcium 7.7 mg/dL (8.4-10.2); Carbon Dioxide 21 mmol/L (22-29); Chloride 111 mmol/L (96-108); Estimated Glomerular Filt Rate 44; Glucose Random 174 mg/dL (60-115); Potassium 3.5 mmol/L (3.3-5.1); Sodium 143 mmol/L (135-145); Total Protein 5.3 g/dL (6.5-8.0)
[2025-01-16 06:07] LABS: Acanthocytes 1+ (0-2) /OIF; Hypochromasia 1+ (5-14) /OIF; Ovalocytes 1+ (5-14) /OIF; RBC Morphology NOTED; Schistocytes 1+ (0-2) /OIF; Target Cells 1+ (5-14) /OIF
[2025-01-16 06:08] LABS: Burr Cells 2+ (3-5) /OIF; Platelet Estimate NORMAL (NORMAL)
[2025-01-16 06:09] LABS: Platelet Morphology Comment NORMAL
[2025-01-16 06:10] LABS: Toxic Vacuolation PRESENT
[2025-01-16 06:18] LABS: Alkaline Phosphatase 89 U/L (39-117)
[2025-01-16] MEDS: Naloxone HCl 0.4 MG/ML VIAL IVPUSH (06:25)
[2025-01-16] MEDS: propofoL 200 MG/20 ML VIAL 100 MG IVPUSH (06:32)
[2025-01-16] MEDS: Rocuronium Bromide 50 MG/5 ML VIAL 30 MG IVPUSH (06:32)
[2025-01-16] MEDS: propofoL 1,000 MG/100 ML VIAL 14.6 MG IVCONT (06:35)
--- NOTE | 2025-01-16 06:42 | W.PM.CCHP ---
Procedures Date of Service Date of Service: 01/16/25 <ALIYAH Funk - Last Filed: 01/16/25 07:00> 01/16/25 <Ovidio Duggan MD - Last Filed: 01/16/25 08:38> Intubation Intubation Comments: Around 06:30, nurse reported that the patient was having increased respiratory distress, she certainly looked worse, the patient using accessory muscles, significantly tachypneic. Is eminent that the patient has tired out and if we wait it would be a crush intubation, having discussed this with the patient and the daughter last night, the patient will be intubated for airway protection and due to her significant respiratory distress. <ALIYAH Funk - Last Filed: 01/16/25 07:00> Consent for Procedure: Elective - informed consent obtained (had spoken to patient and daughter Ariana who agreed verbally RN sophie sierra ) <ALIYAH Funk - Last Filed: 01/16/25 07:00> Time out performed: Yes <ALIYAH Funk - Last Filed: 01/16/25 07:00> Sedative: propofol <ALIYAH Funk - Last Filed: 01/16/25 07:00> Mg given: 100 <ALIYAH Funk - Last Filed: 01/16/25 07:00> Paralytic: rocuronium <ALIYAH Funk - Last Filed: 01/16/25 07:00> Mg given: 30 <ALIYAH Funk - Last Filed: 01/16/25 07:00> Laryngoscope: fiber optic video scope <ALIYAH Funk - Last Filed: 01/16/25 07:00> ET tube size: 7.5 <ALIYAH Funk - Last Filed: 01/16/25 07:00> ET tube uncuffed: Yes <ALIYAH Funk - Last Filed: 01/16/25 07:00> Tube secured depth (cm): 22 <ALIYAH Funk - Last Filed: 01/16/25 07:00> Tube secured location: lips <ALIYAH Funk - Last Filed: 01/16/25 07:00> Tube placement confirmation: visualized tube passing through cords, equal breath sounds bilaterally, no breath sounds over epigastrium and confirmation by capnometry <ALIYAH Funk Last Filed: 01/16/25 07:00> Patient tolerated procedure: well, no complications and other (post intubation CXR shows ET very close to the right main stem, it might have been that the tube migrated as upon checking it was about 24 at the lip. It was pulled back to 21 cm at the lip and repeat x-ray shows the tip of the tube at 3 cm above the sofia.) <ALIYAH Funk Last Filed: 01/16/25 07:00> Intubation complications: none and other (Orogastric tube in place, appears to be in good position, positive gastric content aspiration. Placed to low intermittent suction with mother amount of bile looking material.) <ALIYAH Funk Last Filed: 01/16/25 07:00>
[2025-01-16] MEDS: Phytonadione (Vit K1) 5 MG in 0.9 % Sodium Chloride 50 ML 51 MG IV (07:10)
[2025-01-16] MEDS: Potassium Chloride/H20 10 MEQ/100 ML PIGGYBACK 100 MEQ IV ×3 (07:37→23:57)
--- NOTE | 2025-01-16 07:39 | PC.ADMIT ---
Patient arrived from ED to ICU at approximately?2000. 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 Upon initial assessment- pt A&Ox3, unsure of date, following simple commands, CONTRERAS. Found on 15L NRB for transportation, placed back on BiPAP 16/8/35% by RT, SpO2 goal > 88%. Pt endorses some SOB/dyspnea, RR 30s, Vt 200-300s, accessory muscle use, LS with crackles/rhonchi. PRN Morphine given per MAR for increased work of breathing with some effect noted. Attempted to wean pt to HFNC, tolerated for approx 2 hrs but then became hypoxic and tachypneic?requiring?re-initiation of BiPAP therapy. PRN Morphine switched to Dilaudid, given with?good effect. Additional IV access obtained. NSR/ST on tele, HR 90-100s. +3 BLE edema. Albumin 100 mL x4 bags given. Lasix gtt?ordered?and started per NOV. SBP 90s, MAP < 65, Levophed?gtt ordered and titrated to maintain MAP > 65. Carrillo catheter placed for retention per order. Repeat labs drawn, ALIYAH Stone aware of critical results. Blood Transfusion Consent and Type and Screen obtained- Protonix 80 mg IVP given x1, 2 units of pRBCs ordered and administered per TAR with no s/s of transfusion reaction. Skin overall intact. Repositioned in bed q2hr with?pillows. Bed locked in lowest position, alarm on, call benitez in reach. Pt/daughter aware of pt status/plan of care. See EMR/flowsheet for further details. 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 Pt weakly opens eyes to tactile stimuli but unable to track speaker or follow commands. LS increasingly coarse throughout. RR 30-40s. SpO2 > 90% on BiPAP 18/8/50%. ALIYAH Stone notified of patient change of status and to bedside. Ordered to give Narcan 0.4 mg IVP x1- given with good effect. Pt now alert but anxious, reaching for lines/tubes, HR 110s, RR 40s, accessory muscle use. Brief trial on HFNC but unable to tolerate?and no difference in respiratory status. Decision made to intubate by PA. Total of propofol 100 mg and rocuronium 30 mg IVP given for RSI. Propofol gtt started for sedation, levophed?gtt restarted d/t MAP < 65. ETT # 7.5, pulled back to 21 cm at lip, placed on ACVC settings. OGT placed,?small amount of bile in tubed,?placed to LIWS per PA. Tube placements confirmed by pCXR. Small amount of bloody oral secretions. Vitamin K 5 mg IV ordered. PA notified family of pt status. Report given to on coming RN at 0700.
[2025-01-16 07:54] LABS: OBS1 POSITIVE (NEGATIVE)
[2025-01-16 07:55] LABS: OBS Int Ctl Valid YES
--- NOTE | 2025-01-16 08:49 | PM.CCPN ---
Subjective Subjective Date of Service: 01/16/25 Interval History: Intubated earlier this morning due to increased work of breathing and hypoxia currently on high vent settings Critical Care Time (minutes): 35 Physical Exam Vital Signs: Vital Signs: Last Vital Signs Temp 96.4 F L 01/16/25 08:00 Pulse 96 01/16/25 08:00 Resp 18 01/16/25 08:00 BP 89/70 L 01/16/25 08:00 Pulse Ox 93 01/16/25 08:00 O2 Del Method Mechanical Ventil ation 01/16/25 08:00 O2 Flow Rate 50 01/15/25 23:56 FiO2 80 01/16/25 08:00 BMI result Body Mass Index 31.7 General: Elderly lady in acute distress, ill appearing and tired appearing Nutritional Appearance: well nourished and overweight Eyes: appearance normal, both eyes and all related structures; Alignment and Position: alignment normal and position normal Neck: No lymphadenopathy, no thyromegaly Resp: bilateral air entry equal, occasional added sounds present Cardio: Regular rate, regular rhythm; Heart sounds: S1 normal heart sound present and S2 normal heart sound present GI: soft, nontender, no guarding, no hepatosplenomegaly : bladder normal to inspection, bladder normal to palpation, no renal angle tenderness Skin: no rashes or lesions noted and elasticity normal Neuro: Unable to do neuro exam as patient is sedated on the ventilator Objective Data Labs 01/16/25 05:33 01/16/25 05:33 Labs: Laboratory Results - last 24 hr 01/15/25 01/15/25 01/15/25 16:37 16:38 16:43 WBC 7.1 RBC 3.01 L Hgb 8.5 L Hct 24.6 L MCV 81.7 MCH 28.2 MCHC 34.6 RDW 16.6 H Plt Count 462 H D MPV 9.5 Immature Gran % (Auto) Cancelled Neut % (Auto) Cancelled Lymph % (Auto) Cancelled [place] % (Auto) Cancelled Eos % (Auto) Cancelled Baso % (Auto) Cancelled Lymph # (Auto) Cancelled [place] # (Auto) Cancelled Eos # (Auto) Cancelled Baso # (Auto) Cancelled Abs Immat Gran (auto) Cancelled Absolute Neuts (auto) Cancelled Absolute Nucleated RBC 0.000 Nucleated RBC % (auto) 0.0 Neutrophils % (Manual) 35 L Band Neutrophils % 46 H Lymphocytes % (Manual) 14 L Monocytes % (Manual) 2 Metamyelocytes % 3 Myelocytes % Abs Neuts (Manual) 5.8 Lymphocytes # (Manual) 1.0 L Monocytes # (Manual) 0.1 Metamyelocytes # 0.2 Myelocytes # Smudge Cells Toxic Vacuolation PRESENT Platelet Estimate INCREASED Plt Morphology Comment NORMAL RBC Morphology NOTED Hypochromasia Target Cells Ovalocytes [place] Cells Acanthocytes (Spur) 3+ (>5) Schistocytes 1+ (0-2) Smear Path Review PT 22.4 H D INR 1.9 H VBG pH 7.26 L VBG pCO2 35 VBG pO2 52 VBG HCO3 16 L VBG O2 Saturation 72.0 VBG Base Excess -9.7 Sodium 138 Potassium 3.6 Chloride 111 H Carbon Dioxide 16 L Anion Gap 15 BUN 25 H Creatinine 1.20 Estim Creat Clear Calc 44.0 Estimated GFR 46 POC Glucose Random Glucose 190 H Lactic Acid 2.6 H* Lactic Acid F/U @ 2Hr Calcium 7.5 L Phosphorus Magnesium 2.0 Total Bilirubin 0.5 Direct Bilirubin 0.3 AST 30 ALT < 6 Alkaline Phosphatase 136 H Troponin I High Sens < 2.7 D B-Natriuretic Peptide 444 H Total Protein 4.7 L Albumin 1.9 L Vitamin K1 Urine Color Urine Appearance Urine pH Ur Specific [place] Urine Protein Urine Glucose (UA) Urine Ketones Urine Blood Urine Nitrite Ur Leukocyte Esterase Urine RBC Urine WBC Ur Squamous Epith Cells Urine Bacteria Hyaline Casts Stool Occult Blood Influenza Type A (PCR) NEGATIVE Influenza Type B (PCR) NEGATIVE RSV RNA Qual (PCR) NEGATIVE SARS-CoV-2 RNA (RT-PCR) NEGATIVE Blood Type Antibody Screen Crossmatch 01/15/25 01/15/25 01/15/25 19:08 20:25 20:45 WBC 7.3 RBC 2.38 L D Hgb 6.9 L* Hct 19.3 L* D MCV 81.1 MCH 29.0 MCHC 35.8 H RDW 16.5 H Plt Count 409 H MPV 10.0 Immature Gran % (Auto) Cancelled Neut % (Auto) Cancelled Lymph % (Auto) Cancelled [place] % (Auto) Cancelled Eos % (Auto) Cancelled Baso % (Auto) Cancelled Lymph # (Auto) Cancelled [place] # (Auto) Cancelled Eos # (Auto) Cancelled Baso # (Auto) Cancelled Abs Immat Gran (auto) Cancelled Absolute Neuts (auto) Cancelled Absolute Nucleated RBC 0.000 Nucleated RBC % (auto) 0.0 Neutrophils % (Manual) 24 L Band Neutrophils % 56 H Lymphocytes % (Manual) 15 L Monocytes % (Manual) 1 L Metamyelocytes % 4 Myelocytes % Abs Neuts (Manual) 5.8 Lymphocytes # (Manual) 1.1 L Monocytes # (Manual) 0.1 Metamyelocytes # 0.3 Myelocytes # Smudge Cells PRESENT Toxic Vacuolation PRESENT Platelet Estimate INCREASED Plt Morphology Comment NORMAL RBC Morphology NOTED Hypochromasia Target Cells Ovalocytes [place] Cells Acanthocytes (Spur) 3+ (>5) Schistocytes 1+ (0-2) Smear Path Review SEE NOTE PT INR VBG pH VBG pCO2 VBG pO2 VBG HCO3 VBG O2 Saturation VBG Base Excess Sodium 140 Potassium 3.7 Chloride 114 H Carbon Dioxide 15 L Anion Gap 15 BUN 23 H Creatinine 1.08 Estim Creat Clear Calc 48.9 Estimated GFR 52 POC Glucose 169 H Random Glucose 172 H Lactic Acid Lactic Acid F/U @ 2Hr 1.2 Calcium 7.2 L Phosphorus 3.3 Magnesium Total Bilirubin 0.6 Direct Bilirubin AST 31 ALT < 6 Alkaline Phosphatase 96 Troponin I High Sens B-Natriuretic Peptide Total Protein 4.5 L Albumin 2.3 L Vitamin K1 Urine Color Urine Appearance Urine pH Ur Specific [place] Urine Protein Urine Glucose (UA) Urine Ketones Urine Blood Urine Nitrite Ur Leukocyte Esterase Urine RBC Urine WBC Ur Squamous Epith Cells Urine Bacteria Hyaline Casts Stool Occult Blood Influenza Type A (PCR) Influenza Type B (PCR) RSV RNA Qual (PCR) SARS-CoV-2 RNA (RT-PCR) Blood Type Antibody Screen Crossmatch 01/15/25 01/15/25 01/15/25 20:50 21:07 21:23 WBC RBC Hgb Hct MCV MCH MCHC RDW Plt Count MPV Immature Gran % (Auto) Neut % (Auto) Lymph % (Auto) [place] % (Auto) Eos % (Auto) Baso % (Auto) Lymph # (Auto) [place] # (Auto) Eos # (Auto) Baso # (Auto) Abs Immat Gran (auto) Absolute Neuts (auto) Absolute Nucleated RBC Nucleated RBC % (auto) Neutrophils % (Manual) Band Neutrophils % Lymphocytes % (Manual) Monocytes % (Manual) Metamyelocytes % Myelocytes % Abs Neuts (Manual) Lymphocytes # (Manual) Monocytes # (Manual) Metamyelocytes # Myelocytes # Smudge Cells Toxic Vacuolation Platelet Estimate Plt Morphology Comment RBC Morphology Hypochromasia Target Cells Ovalocytes [place] Cells Acanthocytes (Spur) Schistocytes Smear Path Review PT INR VBG pH 7.38 VBG pCO2 27 VBG pO2 41 VBG HCO3 16 L VBG O2 Saturation 64.0 VBG Base Excess -7.3 Sodium Potassium Chloride Carbon Dioxide Anion Gap BUN Creatinine Estim Creat Clear Calc Estimated GFR POC Glucose Random Glucose Lactic Acid Lactic Acid F/U @ 2Hr Calcium Phosphorus Magnesium Total Bilirubin Direct Bilirubin AST ALT Alkaline Phosphatase Troponin I High Sens B-Natriuretic Peptide Total Protein Albumin Vitamin K1 Urine Color Dark Yellow Urine Appearance Clear Urine pH 6.0 Ur Specific [place] 1.025 Urine Protein 30 (1+) H Urine Glucose (UA) 500 H Urine Ketones Trace Urine Blood Negative Urine Nitrite Negative Ur Leukocyte Esterase Trace H Urine RBC 0-2 Urine WBC 0-5 Ur Squamous Epith Cells 0-2 Urine Bacteria None Seen Hyaline Casts 3-5 Stool Occult Blood Influenza Type A (PCR) Influenza Type B (PCR) RSV RNA Qual (PCR) SARS-CoV-2 RNA (RT-PCR) Blood Type B Positive Antibody Screen NEGATIVE Crossmatch See Detail 01/15/25 01/16/25 01/16/25 23:59 00:54 00:56 WBC RBC Hgb 6.6 L* Hct 18.7 L* MCV MCH MCHC RDW Plt Count MPV Immature Gran % (Auto) Neut % (Auto) Lymph % (Auto) [place] % (Auto) Eos % (Auto) Baso % (Auto) Lymph # (Auto) [place] # (Auto) Eos # (Auto) Baso # (Auto) Abs Immat Gran (auto) Absolute Neuts (auto) Absolute Nucleated RBC Nucleated RBC % (auto) Neutrophils % (Manual) Band Neutrophils % Lymphocytes % (Manual) Monocytes % (Manual) Metamyelocytes % Myelocytes % Abs Neuts (Manual) Lymphocytes # (Manual) Monocytes # (Manual) Metamyelocytes # Myelocytes # Smudge Cells Toxic Vacuolation Platelet Estimate Plt Morphology Comment RBC Morphology Hypochromasia Target Cells Ovalocytes [place] Cells Acanthocytes (Spur) Schistocytes Smear Path Review PT INR VBG pH 7.47 H VBG pCO2 24 VBG pO2 48 VBG HCO3 18 L VBG O2 Saturation 79.0 VBG Base Excess -4.2 Sodium 143 Potassium 3.6 Chloride 111 H Carbon Dioxide 18 L Anion Gap 18 BUN 23 H Creatinine 1.12 Estim Creat Clear Calc 53.1 Estimated GFR 49 POC Glucose 160 H Random Glucose 169 H Lactic Acid Lactic Acid F/U @ 2Hr Calcium 7.8 L D Phosphorus Magnesium Total Bilirubin 0.8 Direct Bilirubin AST 15 ALT < 6 Alkaline Phosphatase 90 Troponin I High Sens B-Natriuretic Peptide Total Protein 5.1 L Albumin 3.4 L Vitamin K1 Urine Color Urine Appearance Urine pH Ur Specific [place] Urine Protein Urine Glucose (UA) Urine Ketones Urine Blood Urine Nitrite Ur Leukocyte Esterase Urine RBC Urine WBC Ur Squamous Epith Cells Urine Bacteria Hyaline Casts Stool Occult Blood Influenza Type A (PCR) Influenza Type B (PCR) RSV RNA Qual (PCR) SARS-CoV-2 RNA (RT-PCR) Blood Type Antibody Screen Crossmatch 01/16/25 01/16/25 01/16/25 05:33 05:34 07:36 WBC 6.4 RBC 2.67 L Hgb 7.8 L Hct 22.1 L MCV 82.8 MCH 29.2 MCHC 35.3 H RDW 16.2 H Plt Count 319 MPV 9.3 L Immature Gran % (Auto) Cancelled Neut % (Auto) Cancelled Lymph % (Auto) Cancelled [place] % (Auto) Cancelled Eos % (Auto) Cancelled Baso % (Auto) Cancelled Lymph # (Auto) Cancelled [place] # (Auto) Cancelled Eos # (Auto) Cancelled Baso # (Auto) Cancelled Abs Immat Gran (auto) Cancelled Absolute Neuts (auto) Cancelled Absolute Nucleated RBC 0.000 Nucleated RBC % (auto) 0.0 Neutrophils % (Manual) 31 L Band Neutrophils % 41 H Lymphocytes % (Manual) 20 Monocytes % (Manual) 4 Metamyelocytes % 3 Myelocytes % 1 Abs Neuts (Manual) 4.6 Lymphocytes # (Manual) 1.3 Monocytes # (Manual) 0.3 Metamyelocytes # 0.2 Myelocytes # 0.1 Smudge Cells Toxic Vacuolation PRESENT Platelet Estimate NORMAL Plt Morphology Comment NORMAL RBC Morphology NOTED Hypochromasia 1+ (5-14) Target Cells 1+ (5-14) Ovalocytes 1+ (5-14) [place] Cells 2+ (3-5) Acanthocytes (Spur) 1+ (0-2) Schistocytes 1+ (0-2) Smear Path Review PT 26.2 H INR 2.2 H VBG pH 7.32 VBG pCO2 40 VBG pO2 63 VBG HCO3 21 L VBG O2 Saturation 89.0 VBG Base Excess -4.4 Sodium 143 Potassium 3.5 Chloride 111 H Carbon Dioxide 21 L Anion Gap 15 BUN 23 H Creatinine 1.24 Estim Creat Clear Calc 48.0 Estimated GFR 44 POC Glucose Random Glucose 174 H Lactic Acid Lactic Acid F/U @ 2Hr Calcium 7.7 L Phosphorus 4.0 Magnesium 2.0 Total Bilirubin 0.8 Direct Bilirubin AST 25 ALT < 6 Alkaline Phosphatase 89 Troponin I High Sens B-Natriuretic Peptide Total Protein 5.3 L Albumin 3.6 Vitamin K1 Cancelled Urine Color Urine Appearance Urine pH Ur Specific [place] Urine Protein Urine Glucose (UA) Urine Ketones Urine Blood Urine Nitrite Ur Leukocyte Esterase Urine RBC Urine WBC Ur Squamous Epith Cells Urine Bacteria Hyaline Casts Stool Occult Blood POSITIVE Influenza Type A (PCR) Influenza Type B (PCR) RSV RNA Qual (PCR) SARS-CoV-2 RNA (RT-PCR) Blood Type Antibody Screen Crossmatch Microbiology Microbiology Results: Microbiology 01/16/25 07:36 Aspirate - Suctioned Gram Stain - Final Progress Note: A&P Assessment and plan (1) Depression: Status: Acute (2) Orthostatic hypotension: Status: Acute (3) Diabetes: Status: Acute (4) Nausea & vomiting: Status: Acute (5) Esophagitis: Status: Acute (6) UTI (urinary tract infection): Status: Acute (7) Acute hypoxic respiratory failure: Status: Acute Plan Neuro: Acute encephalopathy possibly due to metabolic encephalopathy On propofol for sedation, as needed fentanyl for analgesia Close neurological status monitoring in the ICU every hour Cardiac: Cardiogenic Shock: Possibly secondary to positive pressure ventilation On Levophed support, titrate Levophed to keep map above 65 mm Hg on lasix drip 5mg/hr for the management of pulmonary edema We will get TTE Respiratory: Acute hypoxemic respiratory failure due to pulmonary edema Currently on ventilator support On PRVC mode FiO2 80%, PEEP increase to 10, TV 330, RR 24 Peak pressures and plateau pressures are under the curve Ventilator management bundle with head end elevation, aspiration precaution, chlorhexidine mouthwash, daily awakening trials, daily spontaneous breathing trials sputum cultures sent GI bleed: Patient has drop in hemoglobin along with stool for occult blood positive There was some concerns about GI bleed during the previous hospitalization On pantoprazole IV b.i.d. Renal: Has chronic kidney disease stage 3 at baseline, creatinine at baseline We will closely monitor I's and O's Avoid nephrotoxic medications Heme: Acute blood loss anemia: Possibly secondary to GI bleed, receiving 1 unit of PRBC transfusion this morning closely monitor H&H, transfuse for hemoglobin less than 7 grams/deciliter Increased INR, we will rule out DIC by getting ferritin Endocrine: Blood sugars under control Sliding scale insulin as needed Infectious disease: Pancultures sent, we will send respiratory viral panel We will send beta 2 glucan given atypical presentation, we will get LDH levels On empiric vanc and Zosyn Musculoskeletal: Decubitus ulcer prevention protocol Lines: Peripheral Prophylaxis: SCD due to GI bleed, pantoprazole Critical care time spent is about 60 minutes on managing this acutely ill patient with multiple organ failures including acute encephalopathy, hypoxemic respiratory failure, cardiogenic shock, GI bleed. Time spent is mostly on ventilator management, post intubation care, sedation management, vasopressor management, close hemodynamic monitoring, managing GI bleed at this time is excluding any procedural time Quality Stroke Does the patient have a stroke diagnosis?: No VTE Prior VTE?: No VTE Risk Level:: Medical - moderate - high VTE Device Contraindication: N/A - Device Ordered VTE Drug Contraindication: N/A - Med Ordered
[2025-01-16 09:04] LABS: Fibrinogen 311 MG/DL (259-690)
[2025-01-16 09:13] LABS: Lactic Acid 0.8 mmol/L (0.5-2.0)
[2025-01-16 09:17] LABS: Lactate Dehydrogenase 276 U/L (122-220)
--- NOTE | 2025-01-16 09:19 | P.CNGI_ITS ---
History of Present Illness Data of Consult Service Date: 01/16/25 Requesting physician: Ovidio Duggan Primary Care Provider: MD KISHAN Hayden Reason for consult: [facility] Past Medical History Medical History Dysphagia Anxiety disorder GERD (gastroesophageal reflux disease) Migraines Asthma On beta jordyn at home Elevated cholesterol HTN (hypertension) Smoker Diabetes Depression Heartburn Surgical History Surgical History Hx of left knee surgery History of tubal ligation History of esophagogastroduodenoscopy (EGD) H/O colonoscopy Hx of cholecystectomy Social History Social History Household Members: Children Household Members Other:: Daughter Housing: Apartment Housing Other:: pt states she lives in an apartment at her daughter's house Do you presently have visiting nurse or other home services: Yes (Daughter is [employer]) Alcohol intake: former Comment: 1:1 sitter Patient Tobacco Use Status: Current everyday Tobacco user Tobacco use type: Cigarette Cigarette Packs Per Day: 1 Cigarettes Per Day: 20.0 Years Smoked: 15 Smoked in Last 30 Days: Yes e-Cigarette/Vaping Use: Never Used Second Hand Smoke Exposure: Yes Use of substances other than those prescribed or required for medical reasons: No Have you been hit, kicked, punched, or otherwise hurt by someone within the past year? If so, by whom?: No Do you feel safe in your current relationship?: No Current Relationship Is there a partner from a previous relationship who is making you feel unsafe now?: No Are you made to feel afraid or neglected: No Advance Directives: No Advance Directives Information Provided: Yes Do you have a plan to hurt others: No Plan Recently lost weight without trying: Unsure Eating poorly because of decreased appetite: Yes Nutrition Risks: Poor intake 0-25% >4 days Patient : No : No service: No Current occupational status: disabled Travel History Ebola Risk: Travel/Contact With Anyone From Affected Area/s: No Meds Allergies Allergy/AdvReac Type Severity Reaction Status Date / Time iron Allergy Mild Difficulty Verified 01/15/25 16:21 Breathing Iodinated Contrast Media Allergy Unknown UNKNOWN Verified 01/15/25 16:21 [IV Dye, Iodine Containing] iodine [IODINE] Allergy Unknown RASH Verified 01/15/25 16:21 seafood Allergy Unknown Unknown Verified 01/15/25 16:21 Active Medications: Current Medications Dextrose (Dextrose 50 % 25 Gm/50 Ml Syringe) 25 gm IVPUSH Q15M PRN; Protocol PRN Reason: per Hypoglycemia Standing Ord. Glucose (Glucose Gel 15 Gm Gel..Gram.) 15 gm PO Q15M PRN; Protocol PRN Reason: per Hypoglycemia Standing Ord. Hydromorphone HCl (Hydromorphone Hcl 0.5 Mg/0.5 Ml Syringe) 0.5 mg IVPUSH Q2H PRN; Protocol PRN Reason: resp distress Last Admin: 01/16/25 03:41 Dose: 0.5 mg Norepinephrine Bitartrate (Levophed) 8 mg in 250 mls @ 0 mls/hr IVCONT .Q0M [facility]; Protocol Last Titration: 01/16/25 06:35 Dose: 0.1 mcg/kg/min, 11.82 mls/hr Furosemide 200 mg/ Sodium (Chloride) 100 mls @ 5 mls/hr IVCONT .Q20H [facility] Last Infusion: 01/15/25 23:20 Dose: 10 mg/hr, 5 mls/hr Piperacillin Sod/Tazobactam (Sod 3.375 gm/ Sodium Chloride) 50 mls @ 100 mls/hr IV Q6H [facility] Last Infusion: 01/16/25 05:02 Dose: Infused Vancomycin HCl 1,250 mg/ (Sodium Chloride) 250 mls @ 166.667 mls/hr IV Q24H [facility] Propofol (Diprivan) 1,000 mg in 100 mls @ 0 mls/hr IVCONT .Q0M [facility]; Protocol Last Titration: 01/16/25 07:00 Dose: 50 mcg/kg/min, 24.33 mls/hr Fentanyl (Sublimaze/Ns) 1,000 mcg in 100 mls @ 0 mls/hr IVCONT .Q0M [facility]; Protocol Insulin Human Lispro (Insulin Lispro 100 Unit/Ml 3 Ml Vial) 0 unit SUBCUT Q6H [facility]; Protocol Last Admin: 01/16/25 04:38 Dose: Not Given Naloxone HCl (Naloxone Hcl 0.4 Mg/Ml Vial) 0.2 mg IVPUSH Q2M PRN PRN Reason: Excessive sedation or RR < 8 Ondansetron HCl (Ondansetron Hcl 4 Mg/2 Ml Vial) 4 mg IVPUSH Q8H PRN PRN Reason: Nausea and Vomiting Pantoprazole Sodium (Pantoprazole Sodium 40 Mg/10 Ml Vial) 40 mg IVPUSH BID@0630,1630 [facility] Last Admin: 01/16/25 04:41 Dose: 40 mg Pharmacy Consult (Consult Rx Vancomycin Dosing) 1 each MISCELLANE DAILY PRN PRN Reason: Consult order Sodium Chloride (0.9 % Sodium Chloride Flush 3 Ml Syringe) 3 ml IVFLUSH QSHIFT [facility] Last Admin: 01/16/25 07:37 Dose: Not Given Home Medications ?Medication ?Instructions ?Recorded ?Confirmed ?Last Taken ?Type aspirin 81 mg tablet,delayed 81 mg PO DAILY 04/21/22 01/15/25 01/15/25 History release benztropine 0.5 mg tablet 0.5 mg PO BID 04/21/22 01/15/25 01/07/25 History insulin syringe-needle U-100 0.5 #10 ea 04/21/22 12/26/24 Unknown History mL 30 gauge x 1/2 (UltiCare) haloperidol 5 mg tablet 1 tab PO BID 05/06/22 01/15/25 01/15/25 History gabapentin 100 mg capsule 100 mg PO BEDTIME 05/30/24 01/15/25 01/06/25 History insulin glargine 100 unit/mL (3 20 unit subcut BEDTIME 08/27/24 01/15/25 01/15/25 History mL) subcutaneous pen (Lantus Solostar U-100 Insulin) blood sugar diagnostic (FreeStyle #10 ea 12/04/24 12/26/24 Unknown History Lite Strips) lancets 33 gauge (TRUEplus Lancets) #100 ea 12/04/24 12/26/24 Unknown History pen needle, diabetic 31 gauge x #100 ea 12/04/24 12/26/24 Unknown History 1/4 (Easy Touch) esomeprazole magnesium 40 mg 40 mg PO DAILY@0630 12/30/24 01/15/25 01/07/25 History capsule,delayed release (Nexium) Physical Exam 2 Vital Signs: Vital Signs: Last Vital Signs Temp 96.4 F L 01/16/25 08:00 Pulse 96 01/16/25 08:00 Resp 18 01/16/25 08:00 BP 89/70 L 01/16/25 08:00 Pulse Ox 93 01/16/25 08:00 O2 Del Method Mechanical Ventil ation 01/16/25 08:00 O2 Flow Rate 50 01/15/25 23:56 FiO2 80 01/16/25 08:00 BMI result Body Mass Index 31.7 Results Labs 01/16/25 05:33 01/16/25 05:33 Labs: Short CBC 01/15/25 01/15/25 01/16/25 Range/Units 16:37 20:45 00:54 WBC 7.1 7.3 (4.8-10.8) X10*3/uL Hgb 8.5 L 6.9 L* 6.6 L* (12.0-16.0) g/dl Hct 24.6 L 19.3 L* D 18.7 L* (37.0-47.0) % Plt Count 462 H D 409 H (160-400) X10*3/uL 01/16/25 Range/Units 05:33 WBC 6.4 (4.8-10.8) X10*3/uL Hgb 7.8 L (12.0-16.0) g/dl Hct 22.1 L (37.0-47.0) % Plt Count 319 (160-400) X10*3/uL BMP 01/15/25 01/15/25 01/16/25 16:37 20:45 00:54 Sodium 138 140 143 Potassium 3.6 3.7 3.6 Chloride 111 H 114 H 111 H Carbon Dioxide 16 L 15 L 18 L BUN 25 H 23 H 23 H Creatinine 1.20 1.08 1.12 Calcium 7.5 L 7.2 L 7.8 L D 01/16/25 05:33 Sodium 143 Potassium 3.5 Chloride 111 H Carbon Dioxide 21 L BUN 23 H Creatinine 1.24 Calcium 7.7 L Liver Function 01/15/25 01/15/25 01/16/25 Range/Units 16:37 20:45 00:54 Total Bilirubin 0.5 0.6 0.8 (0.0-1.0) mg/dL Direct Bilirubin 0.3 (0.0-0.5) mg/dL AST 30 31 15 (5-31) U/L ALT < 6 < 6 < 6 (0-31) U/L Alkaline Phosphatase 136 H 96 90 (39-117) U/L Albumin 1.9 L 2.3 L 3.4 L (3.5-5.0) g/dL 01/16/25 Range/Units 05:33 Total Bilirubin 0.8 (0.0-1.0) mg/dL Direct Bilirubin (0.0-0.5) mg/dL AST 25 (5-31) U/L ALT < 6 (0-31) U/L Alkaline Phosphatase 89 (39-117) U/L Albumin 3.6 (3.5-5.0) g/dL Urine 01/15/25 Range/Units 21:07 Urine Color Dark Yellow Urine Appearance Clear Urine pH 6.0 (5.0-9.0) Ur Specific [place] 1.025 (1.005-1.025) Urine Protein 30 (1+) H (Neg-Trace) mg/dL Urine Glucose (UA) 500 H (Negative) mg/dL Microbiology Microbiology Results: Microbiology 01/16/25 07:36 Aspirate - Suctioned Gram Stain - Final Procedures Date of Service Date of Service: 01/16/25
[2025-01-16] MEDS: fentaNYL citrate/NS 1,000 MCG/100 ML PLAST..BAG 2.5 MCG IVCONT (09:30)
--- NOTE | 2025-01-16 09:39 | MHC.CLN ---
PT IS INTUBATED AND SEDATED DISCUSSED AT ROUNDS WITH PT TO REMAIN NPO TODAY R/T GIB; OGT TO SUCTION IF TF NEEDED; GLUCERNA AT MAX GOAL RATE 35ML/HR TO PROVIDE 840KCALS (1482KCALS WITH SEDATION; 24KCALS/KG), 35G PROTEIN, 716ML FREE WATER FROM FORMULA FOLLOWING FOR DIET ADVANCEMENT SEE FULL CLINICAL NUTRITION ASSESSMENT
[2025-01-16] MEDS: propofoL 1,000 MG/100 ML VIAL 24.33 MG IVCONT ×4 (10:01→20:34)
[2025-01-16 10:43] LABS: Adenovirus PCR Not Detected (Not Detect.); Bordetella parapertussis PCR Not Detected (Not Detect.); Bordetella pertussis PCR Not Detected (Not Detect.); Chlamydia pneumoniae PCR Not Detected (Not Detect.); Coronavirus 229E PCR Not Detected (Not Detect.); Coronavirus HKU1 PCR Not Detected (Not Detect.); Coronavirus NL63 PCR Not Detected (Not Detect.); Coronavirus OC43 PCR Not Detected (Not Detect.); Human metapneumovirus PCR Not Detected (Not Detect.); Influenza A PCR Not Detected (Not Detect.); Influenza B PCR Not Detected (Not Detect.); Mycoplasma pneumoniae PCR Not Detected (Not Detect.); Parainfluenza 1 PCR Not Detected (Not Detect.); Parainfluenza 2 PCR Not Detected (Not Detect.); Parainfluenza 3 PCR Not Detected (Not Detect.); Parainfluenza 4 PCR Not Detected (Not Detect.); RSV PCR Not Detected (Not Detect.); Rhino/Enterovirus PCR Not Detected (Not Detect.)
[2025-01-16 10:47] LABS: Influenza A H1 PCR Not Detected (Not Detect.); Influenza A H1-2009 PCR Not Detected (Not Detect.); Influenza A H3 PCR Not Detected (Not Detect.); SARS-CoV-2 PCR Not Detected (Not Detect.)
[2025-01-16 11:23] LABS: Glucose, Whole Blood 150 mg/dL (60-115)
--- NOTE | 2025-01-16 13:47 | MHC.CM.PN ---
Pt intubated and unable to participate in CM assessment: Information obtained from discussion w/dtjason Riley. Pt resides with dtr and granddtr, has no active services at this time and is fairly independent with care needs. Family would like to defer d/c planning until more is known re: recovery. HCP copy requested, PCP Name CM to follow.
--- NOTE | 2025-01-16 13:57 | PM.EVENT ---
Event Note Date of Service: 01/16/25 Event Note: Chart evaluated and reviewed with bedside RN and ICU attending Dr Duggan. No overt GIB per rectum or OG effluent. Pt getting worked up for hemolysis and DIC. They will call back if there is concern for GI bleeding. Time Spent With Patient Time: Total time managing care of this patient today ____ minutes.
[2025-01-16 14:25] LABS: Hemoglobin 10.2 g/dl (12.0-16.0); Mean Corpuscular HGB Conc 35.2 g/dl (31.0-35.0); Mean Corpuscular Hemoglobin 29.8 pg (27.0-33.0); Mean Corpuscular Volume 84.8 fL (80.0-98.0); Mean Platelet Volume 9.8 fL (9.4-12.3); Platelet Count 349 X10*3/uL (160-400); Red Blood Count 3.42 X10*6/uL (4.20-5.50); Red Cell Distribution Width 17.3 % (11.0-16.0); White Blood Count 7.2 X10*3/uL (4.8-10.8)
[2025-01-16] MEDS: 0.9 % Sodium Chloride Flush 3 ML SYRINGE IVFLUSH (15:35)
[2025-01-16] MEDS: Furosemide 200 MG in 0.9 % Sodium Chloride 80 ML IVCONT (15:40)
[2025-01-16 17:26] LABS: Glucose, Whole Blood 160 mg/dL (60-115)
[2025-01-16] MEDS: Insulin Lispro 100 UNIT/ML 3 ML VIAL SUBCUT (17:26)
--- NOTE | 2025-01-16 17:57 | PC.NURSE ---
Assumed care at 0700 - remains intubated and sedated - levo titrated down her MAR - o2 requirements decreased - plan for echo and sedation vacation 01/17
[2025-01-16] MEDS: vancomycin HCL 1,250 MG in 0.9 % Sodium Chloride 250 ML 166.67 MG IV (18:12)
[2025-01-16 20:27] LABS: Mean Corpuscular HGB Conc 34.5 g/dl (31.0-35.0); Mean Corpuscular Hemoglobin 29.9 pg (27.0-33.0); Mean Corpuscular Volume 86.6 fL (80.0-98.0); Mean Platelet Volume 9.7 fL (9.4-12.3); Platelet Count 302 X10*3/uL (160-400); Red Blood Count 3.35 X10*6/uL (4.20-5.50); Red Cell Distribution Width 17.4 % (11.0-16.0)
[2025-01-16] MEDS: Chlorhexidine Gluc Oral Rinse 15 ML MOUTHWASH BUCCAL (20:34)
[2025-01-16 20:51] LABS: Alanine Aminotransferase < 6 U/L (0-31); Alkaline Phosphatase 119 U/L (39-117); Anion Gap 14 (12-20); Aspartate Amino Transferase 16 U/L (5-31); Bilirubin Total 0.6 mg/dL (0.0-1.0); Blood Urea Nitrogen 20 mg/dL (9-16); Calcium 7.9 mg/dL (8.4-10.2); Carbon Dioxide 25 mmol/L (22-29); Chloride 111 mmol/L (96-108); Creatinine Clr Calc Pharmacy 47.3; Estimated Glomerular Filt Rate 43; Glucose Random 129 mg/dL (60-115); Magnesium 1.9 mg/dL (1.6-2.6); Phosphorus 3.5 mg/dL (2.7-4.5); Potassium 3.2 mmol/L (3.3-5.1); Sodium 147 mmol/L (135-145); Total Protein 4.9 g/dL (6.5-8.0)
[2025-01-16 21:16] LABS: WBC ABN SCTR FOR CBC 1
[2025-01-16 21:27] LABS: Atypical Lymphs Percent Manual 2 % (0-6); Band Neutrophils Percent 14 % (3-5); Lymphocytes Percent Manual 15 % (20-40); Monocytes Percent Manual 6 % (2-11); Neutrophils Percent Manual 63 % (45-73)
[2025-01-16 21:28] LABS: RBC Morphology NOTED
[2025-01-16 21:29] LABS: Ovalocytes 1+ (5-14) /OIF; Platelet Estimate NORMAL (NORMAL); Platelet Morphology Comment NORMAL
[2025-01-16 21:30] LABS: Acanthocytes 1+ (0-2) /OIF; Target Cells 1+ (5-14) /OIF
[2025-01-16 21:31] LABS: Dohle Bodies PRESENT; Polychromasia 1+ (0-2) /OIF
[2025-01-16 21:33] LABS: Toxic Vacuolation PRESENT
[2025-01-16 21:34] LABS: Burr Cells 2+ (3-5) /OIF
[2025-01-16 21:35] LABS: Atypical Lymph Absolute Manual 0.1 x10*3/uL; Lymphocytes Absolute Manual 1.1 X10*3/uL (1.2-4.9); Monocytes Absolute Manual 0.4 X10*3/uL (0.1-1.2); Neutrophils Absolute Manual 5.5 X10*3/uL (2.0-8.3); White Blood Count 7.1 X10*3/uL (4.8-10.8)
[2025-01-16 23:59] LABS: Glucose, Whole Blood 125 mg/dL (60-115)
[2025-01-17] VITALS (44 sets, daily range): BP systolic 82–122; BP diastolic 44–72; PULSE 80–108; RESP 15–22; TEMP 34.4–38.1; O2SAT 90–99; BMI 31.7
[2025-01-17] MEDS: propofoL 1,000 MG/100 ML VIAL 24.33 MG IVCONT ×7 (00:07→21:32)
[2025-01-17] MEDS: Potassium Chloride/H20 10 MEQ/100 ML PIGGYBACK 100 MEQ IV ×2 (01:11→02:28)
[2025-01-17] MEDS: fentaNYL citrate/NS 1,000 MCG/100 ML PLAST..BAG 5 MCG IVCONT (01:49)
[2025-01-17 04:28] LABS: VBG Base Excess 3.4 mmol/L; VBG HCO3 26 mmol/L (22-26); VBG pCO2 36 mmHg; VBG pH 7.47 (7.32-7.43); VBG pO2 96 mmHg
[2025-01-17 05:07] LABS: Alanine Aminotransferase < 6 U/L (0-31); Albumin Level 3.4 g/dL (3.5-5.0); Alkaline Phosphatase 125 U/L (39-117); Anion Gap 17 (12-20); Aspartate Amino Transferase 20 U/L (5-31); Bilirubin Total 0.7 mg/dL (0.0-1.0); Blood Urea Nitrogen 19 mg/dL (9-16); Calcium 8.1 mg/dL (8.4-10.2); Carbon Dioxide 23 mmol/L (22-29); Chloride 110 mmol/L (96-108); Creatinine Clr Calc Pharmacy 40.5; Estimated Glomerular Filt Rate 36; Glucose Random 118 mg/dL (60-115); Magnesium 1.8 mg/dL (1.6-2.6); Phosphorus 3.4 mg/dL (2.7-4.5); Potassium 4.1 mmol/L (3.3-5.1); Sodium 146 mmol/L (135-145); Total Protein 5.3 g/dL (6.5-8.0)
[2025-01-17] MEDS: Piperacillin Sodium/Tazobactam 3.375 GM in 0.9 % Sodium Chloride 50 ML IV ×4 (05:36→23:34)
[2025-01-17 05:49] LABS: Venous Blood Gas Refer to POC result
[2025-01-17] MEDS: Norepinephrine Bitartrate/D5W 8 MG/250 ML PLAST..BAG 7.09 MG IVCONT (06:44)
[2025-01-17] MEDS: Pantoprazole Sodium 40 MG/10 ML VIAL IVPUSH ×2 (06:44→15:28)
[2025-01-17] MEDS: 0.9 % Sodium Chloride Flush 3 ML SYRINGE IVFLUSH ×3 (06:44→23:36)
[2025-01-17] MEDS: Chlorhexidine Gluc Oral Rinse 15 ML MOUTHWASH BUCCAL ×3 (06:53→20:44)
[2025-01-17] MEDS: Albumin Human 25 % 100 ML IV ×2 (06:53→13:11)
--- NOTE | 2025-01-17 07:00 | CA_ITS ---
Transthoracic Echocardiogram Patient (Last, First, Middle): Rita Page, Gender: Female Date of : 1965 Age: 59 Procedure Date: 01/17/2025 Procedure Type: Transthoracic Echocardiogram Location: ICU Height: 160.02 cm Weight: 80.74 kg BSA: 1.84 m2 Heart Rate: bpm BP: 109 / 49 mmHg Speech Language Pathology Assistant: ELIZABETH Referring MD: Ovidio Duggan MD Symptoms: Pulmonary edema, limited exam to look for EF and LV Study Quality: Adequate ECG Rhythm: Sinus Conclusions: - The left ventricular systolic function is normal. The calculated ejection fraction is 65% by biplane method. - Patient intubated, positioned on right side. Findings Left Ventricle Normal left ventricular cavity size. There is mildly increased left ventricular wall thickness. The left ventricular systolic function is normal. The calculated ejection fraction is 65% by biplane method. There is no evidence of regional wall motion abnormalities. Tricuspid Valve There is mild tricuspid valve regurgitation. Venous The inferior vena cava is normal in size and collapses less than 50% with inspiration. Prior Study Comparison No significant change compared to prior study dated: 01/01/2025. Measurements 2D Linear Measurements IVSd: 0.95 0.6-0.9/0.6-1.0 cm LVIDd: 4.44 3.9-5.3/4.2-5.9 cm LVIDd Index: 2.41 2.4-3.2/2.2-3.1 cm/m2 LVIDs: 2.36 2.0-3.6 cm LVPWd: 1.13 0.7-1.1 cm LV Mass: 197.76 67-162/88-224 g LV Mass Index: 107.48 43-95/49-115 g/m2 LVOT Diam: 2.10 3.0+(-)1.3 cm 2D Systolic Function EF 4C: 68.80 >55% EF 2C: 65.00 >55% EF BiP: 64.60 >55% LVOT LVOT Pk Nader: 1.19 LVOT Mn Nader: 0.75 LVOT VTI: 0.20 LVOT Pk Grad: 6.00 LVOT Mn Grad: 3.00 LVOT Diam: 2.10 LVOT Area: 3.46 Tricuspid Valve TR Pk Nader: 2.94 TR Pk Grad: 35.00 RA Press: 8.00 RVSP: 43.00 Updated in Other Vendor System with Status of Final Severino Nuñez MD electronically signed on 01/17/2025 12:28:52 PM with status of Final
--- NOTE | 2025-01-17 08:25 | P.CDIM_ITS ---
PROVIDER RESPONSE TEXT: To clarify, the appropriate diagnosis supported by the clinical indicators: Diastolic: normal systolic function in previous echo now has pulmonary edema QUERY TEXT: PHYSICIAN'S DOCUMENTATION REQUEST Date of Query: 01/17/2025 08:00 AM EDT Patient Name: Rita Page Admit Date: 01/15/2025 Dear Ovidio Duggan MD, A review of the medical record indicates additional documentation may be needed. Please review below and update the documentation accordingly. Clinical Indicators: ICU H&P 01/15/25 - Acute hypoxic respiratory failure likely multifactorial in the setting of CHF and po ssible nosocomial pneumonia. Acute on chronic CHF with anasarca state unknown ef of 55-60% without diastolic dysfunction per echo on December of this yea. The patient cannot receive IV fluids due to risk of further CHF. Will start IV Lasix drip. BNP 444 Please provide further specificity regarding the most likely type and acuity of CHF you are evaluatin g, treating, or monitoring. Systolic Please specify if Acute, Chronic, or Acute on chronic, or Unable to determine Diastolic Please specify if Acute, Chronic, or Acute on chronic, or Unable to determine Combined Systolic/Diastolic Please specify if Acute, Chronic, or Acute on chronic, or Unable to determine Other (explain) Clinically unable to determine (explain) Thank you, Eliane Villalobos, CCS, CDIS Use of terms such as suspected, likely, concern for, or probable (associated with a specific diagnosi s that is being evaluated, monitored, or treated as if it exists) are acceptable and can be coded in the inpatient se tting, when documented at the time of discharge. Please use your independent medical judgment in providing your response. THIS QUERY IS PART OF THE PERMANENT MEDICAL RECORD
--- NOTE | 2025-01-17 08:28 | P.PNCC_ITS ---
Subjective Subjective Date of Service: 01/17/25 Interval History: On ventilator support this morning On Levophed for vasopressor On propofol and fentanyl for analgesia and sedation Critical Care Time (minutes): 35 Physical Exam 2 Vital Signs: Vital Signs: Last Vital Signs Temp 100.2 F 01/17/25 08:00 Pulse 88 01/17/25 08:00 Resp 20 01/17/25 08:00 BP 105/47 L 01/17/25 08:00 Pulse Ox 91 L 01/17/25 08:00 O2 Del Method Mechanical Ventil ation 01/17/25 08:00 O2 Flow Rate 50 01/15/25 23:56 FiO2 41 01/17/25 08:00 BMI result Body Mass Index 31.7 General: Elderly appearing lady in acute distress, ill appearing and tired appearing Nutritional Appearance: well nourished and overweight Eyes: appearance normal, both eyes and all related structures; Alignment and Position: alignment normal and position normal Neck: No lymphadenopathy, no thyromegaly Resp: bilateral air entry equal, bilateral crackles heard Cardio: Regular rate, regular rhythm; Heart sounds: S1 normal heart sound present and S2 normal heart sound present GI: soft, nontender, no guarding, no hepatosplenomegaly : bladder normal to inspection, bladder normal to palpation, no renal angle tenderness Skin: no rashes or lesions noted and elasticity normal Neuro: Sedated can not do a neurological examination Objective Data Labs 01/17/25 08:35 01/17/25 04:25 Labs: Laboratory Results - last 24 hr 01/15/25 01/15/25 01/16/25 20:45 21:23 00:54 WBC RBC Hgb Hct MCV MCH MCHC RDW Plt Count MPV Immature Gran % (Auto) Neut % (Auto) Lymph % (Auto) [place] % (Auto) Eos % (Auto) Baso % (Auto) Lymph # (Auto) [place] # (Auto) Eos # (Auto) Baso # (Auto) Abs Immat Gran (auto) Absolute Neuts (auto) Absolute Nucleated RBC Nucleated RBC % (auto) Neutrophils % (Manual) Band Neutrophils % Lymphocytes % (Manual) Atypical Lymphs % (Man) Monocytes % (Manual) Abs Neuts (Manual) Lymphocytes # (Manual) Atyp Lymphs # (Manual) Monocytes # (Manual) Toxic Vacuolation Dohle Bodies Platelet Estimate Plt Morphology Comment RBC Morphology Polychromasia Target Cells Ovalocytes Bogard Cells Acanthocytes (Spur) Smear Path Review SEE NOTE Fibrinogen VBG pH VBG pCO2 VBG pO2 VBG HCO3 VBG O2 Saturation VBG Base Excess Sodium Potassium Chloride Carbon Dioxide Anion Gap BUN Creatinine Estim Creat Clear Calc Estimated GFR POC Glucose Random Glucose Lactic Acid Calcium Phosphorus Magnesium Total Bilirubin AST ALT Alkaline Phosphatase Lactate Dehydrogenase 276 H Total Protein Albumin Vitamin K1 Respiratory Panel Alexandra Adenovirus (Rapid PCR) B.pert (TEM-PCR) B.parapertussis DNA PCR C. pneumoniae DNA (PCR) Coronavirus OC43 (PCR) Coronavirus HKU1 (PCR) Coronavirus 229E (PCR) Coronavirus NL63 (PCR) Human Metapneumovir PCR Influenza A (RT-PCR) Influenza A (H1) PCR Influ A (H1/09) PCR Influenza A (H3) PCR Influenza B (RT-PCR) M. pneumoniae (PCR) Parainfluenza 1 (PCR) Parainfluenza 2 (PCR) Parainfluenza 3 (PCR) Parainfluenza 4 (PCR) RSV (PCR) Entero/Rhino (PCR) SARS-CoV-2 RNA (RT-PCR) Crossmatch See Detail 01/16/25 01/16/25 01/16/25 05:33 08:46 09:22 WBC RBC Hgb Hct MCV MCH MCHC RDW Plt Count MPV Immature Gran % (Auto) Neut % (Auto) Lymph % (Auto) [place] % (Auto) Eos % (Auto) Baso % (Auto) Lymph # (Auto) [place] # (Auto) Eos # (Auto) Baso # (Auto) Abs Immat Gran (auto) Absolute Neuts (auto) Absolute Nucleated RBC Nucleated RBC % (auto) Neutrophils % (Manual) Band Neutrophils % Lymphocytes % (Manual) Atypical Lymphs % (Man) Monocytes % (Manual) Abs Neuts (Manual) Lymphocytes # (Manual) Atyp Lymphs # (Manual) Monocytes # (Manual) Toxic Vacuolation Dohle Bodies Platelet Estimate Plt Morphology Comment RBC Morphology Polychromasia Target Cells Ovalocytes Bogard Cells Acanthocytes (Spur) Smear Path Review Fibrinogen 311 VBG pH VBG pCO2 VBG pO2 VBG HCO3 VBG O2 Saturation VBG Base Excess Sodium Potassium Chloride Carbon Dioxide Anion Gap BUN Creatinine Estim Creat Clear Calc Estimated GFR POC Glucose Random Glucose Lactic Acid 0.8 Calcium Phosphorus Magnesium Total Bilirubin AST ALT Alkaline Phosphatase Lactate Dehydrogenase Total Protein Albumin Vitamin K1 Cancelled Respiratory Panel Alexandra See Note Adenovirus (Rapid PCR) Not Detected B.pert (TEM-PCR) Not Detected B.parapertussis DNA PCR Not Detected C. pneumoniae DNA (PCR) Not Detected Coronavirus OC43 (PCR) Not Detected Coronavirus HKU1 (PCR) Not Detected Coronavirus 229E (PCR) Not Detected Coronavirus NL63 (PCR) Not Detected Human Metapneumovir PCR Not Detected Influenza A (RT-PCR) Not Detected Influenza A (H1) PCR Not Detected Influ A (H1/09) PCR Not Detected Influenza A (H3) PCR Not Detected Influenza B (RT-PCR) Not Detected M. pneumoniae (PCR) Not Detected Parainfluenza 1 (PCR) Not Detected Parainfluenza 2 (PCR) Not Detected Parainfluenza 3 (PCR) Not Detected Parainfluenza 4 (PCR) Not Detected RSV (PCR) Not Detected Entero/Rhino (PCR) Not Detected SARS-CoV-2 RNA (RT-PCR) Not Detected Crossmatch 01/16/25 01/16/25 01/16/25 11:20 14:21 17:22 WBC 7.2 RBC 3.42 L D Hgb 10.2 L D Hct 29.0 L D MCV 84.8 MCH 29.8 MCHC 35.2 H RDW 17.3 H Plt Count 349 MPV 9.8 Immature Gran % (Auto) Neut % (Auto) Lymph % (Auto) [place] % (Auto) Eos % (Auto) Baso % (Auto) Lymph # (Auto) [place] # (Auto) Eos # (Auto) Baso # (Auto) Abs Immat Gran (auto) Absolute Neuts (auto) Absolute Nucleated RBC 0.000 Nucleated RBC % (auto) 0.0 Neutrophils % (Manual) Band Neutrophils % Lymphocytes % (Manual) Atypical Lymphs % (Man) Monocytes % (Manual) Abs Neuts (Manual) Lymphocytes # (Manual) Atyp Lymphs # (Manual) Monocytes # (Manual) Toxic Vacuolation Dohle Bodies Platelet Estimate Plt Morphology Comment RBC Morphology Polychromasia Target Cells Ovalocytes [place]ard Cells Acanthocytes (Spur) Smear Path Review Fibrinogen VBG pH VBG pCO2 VBG pO2 VBG HCO3 VBG O2 Saturation VBG Base Excess Sodium Potassium Chloride Carbon Dioxide Anion Gap BUN Creatinine Estim Creat Clear Calc Estimated GFR POC Glucose 150 H 160 H Random Glucose Lactic Acid Calcium Phosphorus Magnesium Total Bilirubin AST ALT Alkaline Phosphatase Lactate Dehydrogenase Total Protein Albumin Vitamin K1 Respiratory Panel Alexandra Adenovirus (Rapid PCR) B.pert (TEM-PCR) B.parapertussis DNA PCR C. pneumoniae DNA (PCR) Coronavirus OC43 (PCR) Coronavirus HKU1 (PCR) Coronavirus 229E (PCR) Coronavirus NL63 (PCR) Human Metapneumovir PCR Influenza A (RT-PCR) Influenza A (H1) PCR Influ A (H1/09) PCR Influenza A (H3) PCR Influenza B (RT-PCR) M. pneumoniae (PCR) Parainfluenza 1 (PCR) Parainfluenza 2 (PCR) Parainfluenza 3 (PCR) Parainfluenza 4 (PCR) RSV (PCR) Entero/Rhino (PCR) SARS-CoV-2 RNA (RT-PCR) Crossmatch 01/16/25 01/16/25 01/17/25 20:16 23:56 04:23 WBC 7.1 RBC 3.35 L Hgb 10.0 L Hct 29.0 L MCV 86.6 MCH 29.9 MCHC 34.5 RDW 17.4 H Plt Count 302 MPV 9.7 Immature Gran % (Auto) Cancelled Neut % (Auto) Cancelled Lymph % (Auto) Cancelled [place] % (Auto) Cancelled Eos % (Auto) Cancelled Baso % (Auto) Cancelled Lymph # (Auto) Cancelled [place] # (Auto) Cancelled Eos # (Auto) Cancelled Baso # (Auto) Cancelled Abs Immat Gran (auto) Cancelled Absolute Neuts (auto) Cancelled Absolute Nucleated RBC 0.000 Nucleated RBC % (auto) 0.0 Neutrophils % (Manual) 63 Band Neutrophils % 14 H Lymphocytes % (Manual) 15 L Atypical Lymphs % (Man) 2 Monocytes % (Manual) 6 Abs Neuts (Manual) 5.5 Lymphocytes # (Manual) 1.1 L Atyp Lymphs # (Manual) 0.1 Monocytes # (Manual) 0.4 Toxic Vacuolation PRESENT Dohle Bodies PRESENT Platelet Estimate NORMAL Plt Morphology Comment NORMAL RBC Morphology NOTED Polychromasia 1+ (0-2) Target Cells 1+ (5-14) Ovalocytes 1+ (5-14) Bogard Cells 2+ (3-5) Acanthocytes (Spur) 1+ (0-2) Smear Path Review Fibrinogen VBG pH 7.47 H VBG pCO2 36 VBG pO2 96 VBG HCO3 26 VBG O2 Saturation 99.0 VBG Base Excess 3.4 Sodium 147 H Potassium 3.2 L Chloride 111 H Carbon Dioxide 25 Anion Gap 14 BUN 20 H Creatinine 1.26 Estim Creat Clear Calc 47.3 Estimated GFR 43 POC Glucose 125 H Random Glucose 129 H Lactic Acid Calcium 7.9 L Phosphorus 3.5 Magnesium 1.9 Total Bilirubin 0.6 AST 16 ALT < 6 Alkaline Phosphatase 119 H Lactate Dehydrogenase Total Protein 4.9 L Albumin 3.0 L Vitamin K1 Respiratory Panel Alexandra Adenovirus (Rapid PCR) B.pert (TEM-PCR) B.parapertussis DNA PCR C. pneumoniae DNA (PCR) Coronavirus OC43 (PCR) Coronavirus HKU1 (PCR) Coronavirus 229E (PCR) Coronavirus NL63 (PCR) Human Metapneumovir PCR Influenza A (RT-PCR) Influenza A (H1) PCR Influ A () PCR Influenza A (H3) PCR Influenza B (RT-PCR) M. pneumoniae (PCR) Parainfluenza 1 (PCR) Parainfluenza 2 (PCR) Parainfluenza 3 (PCR) Parainfluenza 4 (PCR) RSV (PCR) Entero/Rhino (PCR) SARS-CoV-2 RNA (RT-PCR) Crossmatch 01/17/25 04:25 WBC RBC Hgb Hct MCV MCH MCHC RDW Plt Count MPV Immature Gran % (Auto) Neut % (Auto) Lymph % (Auto) [place] % (Auto) Eos % (Auto) Baso % (Auto) Lymph # (Auto) [place] # (Auto) Eos # (Auto) Baso # (Auto) Abs Immat Gran (auto) Absolute Neuts (auto) Absolute Nucleated RBC Nucleated RBC % (auto) Neutrophils % (Manual) Band Neutrophils % Lymphocytes % (Manual) Atypical Lymphs % (Man) Monocytes % (Manual) Abs Neuts (Manual) Lymphocytes # (Manual) Atyp Lymphs # (Manual) Monocytes # (Manual) Toxic Vacuolation Dohle Bodies Platelet Estimate Plt Morphology Comment RBC Morphology Polychromasia Target Cells Ovalocytes [place] Cells Acanthocytes (Spur) Smear Path Review Fibrinogen VBG pH VBG pCO2 VBG pO2 VBG HCO3 VBG O2 Saturation VBG Base Excess Sodium 146 H Potassium 4.1 D Chloride 110 H Carbon Dioxide 23 Anion Gap 17 BUN 19 H Creatinine 1.47 H Estim Creat Clear Calc 40.5 Estimated GFR 36 POC Glucose Random Glucose 118 H Lactic Acid Calcium 8.1 L Phosphorus 3.4 Magnesium 1.8 Total Bilirubin 0.7 AST 20 ALT < 6 Alkaline Phosphatase 125 H Lactate Dehydrogenase Total Protein 5.3 L Albumin 3.4 L Vitamin K1 Respiratory Panel Alexandra Adenovirus (Rapid PCR) B.pert (TEM-PCR) B.parapertussis DNA PCR C. pneumoniae DNA (PCR) Coronavirus OC43 (PCR) Coronavirus HKU1 (PCR) Coronavirus 229E (PCR) Coronavirus NL63 (PCR) Human Metapneumovir PCR Influenza A (RT-PCR) Influenza A (H1) PCR Influ A (H1/) PCR Influenza A (H3) PCR Influenza B (RT-PCR) M. pneumoniae (PCR) Parainfluenza 1 (PCR) Parainfluenza 2 (PCR) Parainfluenza 3 (PCR) Parainfluenza 4 (PCR) RSV (PCR) Entero/Rhino (PCR) SARS-CoV-2 RNA (RT-PCR) Crossmatch Microbiology Microbiology Results: Microbiology 01/15/25 16:42 Blood - Venous Blood Culture - Preliminary No growth after 24 hours. 01/15/25 16:37 Blood - Venous Blood Culture - Preliminary No growth after 24 hours. 01/16/25 07:36 Aspirate - Suctioned Gram Stain - Final Progress Note: A&P Assessment and plan (1) Orthostatic hypotension: Status: Acute (2) Diabetes: Status: Acute (3) Acute hypoxic respiratory failure: Status: Acute (4) Urinary tract infection: Status: Acute Plan Neuro: Acute encephalopathy possibly due to metabolic encephalopathy On propofol for sedation, as needed fentanyl for analgesia, we will taper as tolerated Close neurological status monitoring in the ICU every hour Cardiac: Cardiogenic Shock: Possibly secondary to positive pressure ventilation On Levophed support, titrate Levophed to keep map above 65 mm Hg We decrease Lasix drip as diuresis has not helped much with decreasing the FiO2 We will get limited TTE to look for LV function, previous echo 2 weeks ago normal Respiratory: Acute hypoxemic respiratory failure due to pulmonary edema Currently on ventilator support On PRVC mode FiO2 decreased to 70%, PEEP 10, TV 330, RR 24 Peak pressures and plateau pressures are under the curve Ventilator management bundle with head end elevation, aspiration precaution, chlorhexidine mouthwash, daily awakening trials, daily spontaneous breathing trials sputum cultures sent We will do a bronchoscopy and lavage and we will send the sample to look for the etiology of the bilateral ground-glass lesions on the CT. Beta D glucan pending, respiratory panel negative GI bleed: Patient has drop in hemoglobin along with stool for occult blood positive but stool is still brown in color, no obvious melena or hematemesis. Possibly the bleeding is ongoing for some time. There was some concerns about GI bleed during the previous hospitalization On pantoprazole IV b.i.d. Renal: Acute on chronic kidney disease: Acute kidney injury possibly due to diuresis, we will cut down diuresis Has chronic kidney disease stage 3 at baseline We will closely monitor I's and O's Avoid nephrotoxic medications Heme: Acute blood loss anemia: Possibly secondary to GI bleed, received 2 units of PRBC yesterday closely monitor H&H, transfuse for hemoglobin less than 7 grams/deciliter Increased INR, fibrinogen 300 possibly ruling out DIC Endocrine: Blood sugars under control Sliding scale insulin as needed Infectious disease: Pancultures sent, negative respiratory viral panel Pending beta 2 glucan given atypical presentation, we will get LDH levels On empiric vanc and Zosyn Musculoskeletal: Decubitus ulcer prevention protocol Lines: Peripheral Prophylaxis: SCD due to GI bleed, pantoprazole Quality Stroke Does the patient have a stroke diagnosis?: No VTE Prior VTE?: No VTE Risk Level:: Medical - moderate - high VTE Device Contraindication: N/A - Device Ordered VTE Drug Contraindication: N/A - Med Ordered
[2025-01-17 08:59] LABS: Hematocrit 26.4 % (37.0-47.0); Hemoglobin 9.1 g/dl (12.0-16.0); Mean Corpuscular HGB Conc 34.5 g/dl (31.0-35.0); Mean Corpuscular Hemoglobin 30.1 pg (27.0-33.0); Mean Corpuscular Volume 87.4 fL (80.0-98.0); Platelet Count 266 X10*3/uL (160-400); Red Blood Count 3.02 X10*6/uL (4.20-5.50); Red Cell Distribution Width 17.4 % (11.0-16.0); White Blood Count 8.8 X10*3/uL (4.8-10.8)
[2025-01-17 09:28] LABS: Band Neutrophils Percent 22 % (3-5); Eosinophils Absolute Manual 0.1 X10*3/uL (0.0-0.4); Eosinophils Percent Manual 1 % (0-4); Lymphocytes Absolute Manual 2.4 X10*3/uL (1.2-4.9); Lymphocytes Percent Manual 27 % (20-40); Metamyelocytes Absolute 0.1 X10*3/uL; Metamyelocytes Percent 1 %; Monocytes Absolute Manual 0.3 X10*3/uL (0.1-1.2); Monocytes Percent Manual 3 % (2-11); Neutrophils Percent Manual 46 % (45-73)
[2025-01-17 09:32] LABS: Burr Cells 1+ (0-2) /OIF; Dohle Bodies PRESENT; Ovalocytes 1+ (5-14) /OIF; Platelet Estimate NORMAL (NORMAL); Platelet Morphology Comment NORMAL; RBC Morphology NOTED; Schistocytes 1+ (0-2) /OIF; Target Cells 1+ (5-14) /OIF
[2025-01-17] MEDS: Furosemide 200 MG in 0.9 % Sodium Chloride 80 ML IVCONT (10:07)
--- NOTE | 2025-01-17 10:18 | MHC.CLN ---
F/U PT REMAINS INTUBATED AND SEDATED DISCUSSED AT ROUNDS WITH MD RECOMMEND GLUCERNA AT MAX GOAL RATE 35ML/HR WITH 240ML FREE WATER FLUSHES Q 6 HRS TO PROVIDE 840KCALS (1482KCALS WITH SEDATION; 24KCALS/KG), 35G PROTEIN, 1676ML TOTAL FREE WATER FROM FORMULA AND FLUSHES (27ML/KG) MONITOR TOLERANCE AND LYTES
[2025-01-17 11:18] LABS: Glucose, Whole Blood 121 mg/dL (60-115)
[2025-01-17] MEDS: Rocuronium Bromide 50 MG/5 ML VIAL IVPUSH ×2 (14:51→18:45)
--- NOTE | 2025-01-17 15:06 | W.PM.CCHP ---
Procedures Date of Service Date of Service: 01/17/25 Bronchoscopy Consent for Procedure: Elective - informed consent obtained Indication: pulmonary toilet Procedure: A large size disposable bronchoscope was passed through the ET tube sofia looked okay, there was diffuse erythematous mucosal lesions found in all the lobes, no endobronchial growth or obstruction seen. Bronchoscopic lavage was performed in right lower lobe and left lower lobe and both the samples were sent to the lab Route: endotracheal tube Sedation/Analgesia: fentanyl Monitor: EKG and pulse oximetry Complications: none
--- NOTE | 2025-01-17 15:37 | MHC.CM.PN ---
PT REMAINS IN ICU ON VENTILATORY AND PRESSOR SUPPORT. CM WILL CONTINUE TO FOLLOW.
[2025-01-17] MEDS: fentaNYL citrate/NS 1,000 MCG/100 ML PLAST..BAG 10 MCG IVCONT (16:33)
[2025-01-17 17:26] LABS: Vancomycin Random 20.1 mcg/mL (15-20)
[2025-01-17 17:27] LABS: Glucose, Whole Blood 141 mg/dL (60-115)
[2025-01-17 17:37] LABS: RBC Bronchial Washing 6 MM*3; WBC Bronchial Washing 5 MM*3
[2025-01-17 17:38] LABS: Lymphocytes Bronchial 84 %; Other Bronchial 16 %
--- NOTE | 2025-01-17 17:38 | HE.PHANOTE ---
Vancomycin Vancomycin level 20.1 after 2 doses. Creatinine increasing ( 1.2, 1.24 and today 1.47). Holding dose tonight, will get a level tomorrow 01/18 @0600 and adjust dose as needed. Vanco 750 mg q24h entered for now and will adjust based on level.
[2025-01-17 18:32] LABS: RBC Bronchial Washing 3 MM*3; WBC Bronchial Washing 11 MM*3
[2025-01-17 18:33] LABS: Lymphocytes Bronchial 94 %; Other Bronchial 6 %
--- NOTE | 2025-01-17 18:43 | PC.NURSE ---
O2 sat down to 84% on 60% Fio2, LS clear, abdominal breathing - MAP maintaining <65 - levo gtt titrated per MAR, suctioned clear thick small amount, patient repositioned. RT & MD notified - Rocuronium 50mg IVP administered TO Dr Duggan - O2 sat up to 97% on 80% Fio2, absent abdominal breathing, MAP maintaining >65. Care ongoing.
[2025-01-17 20:30] LABS: Hematocrit 27.5 % (37.0-47.0); Hemoglobin 9.2 g/dl (12.0-16.0); Mean Corpuscular HGB Conc 33.5 g/dl (31.0-35.0); Mean Corpuscular Hemoglobin 29.8 pg (27.0-33.0); Mean Platelet Volume 10.6 fL (9.4-12.3); Platelet Count 292 X10*3/uL (160-400); Red Blood Count 3.09 X10*6/uL (4.20-5.50); Red Cell Distribution Width 17.6 % (11.0-16.0); White Blood Count 10.1 X10*3/uL (4.8-10.8)
[2025-01-17 21:27] LABS: Atypical Lymph Absolute Manual 0.1 x10*3/uL; Atypical Lymphs Percent Manual 1 % (0-6); Band Neutrophils Percent 13 % (3-5); Lymphocytes Absolute Manual 2.4 X10*3/uL (1.2-4.9); Lymphocytes Percent Manual 24 % (20-40); Monocytes Absolute Manual 0.3 X10*3/uL (0.1-1.2); Monocytes Percent Manual 3 % (2-11); Myelocytes Absolute 0.1 X10*/uL; Myelocytes Percent 1 %; Neutrophils Absolute Manual 7.2 X10*3/uL (2.0-8.3); Neutrophils Percent Manual 58 % (45-73); Nucleated Red Blood Cells 1 /100WBC (0-0)
[2025-01-17 21:28] LABS: Platelet Estimate NORMAL (NORMAL); Platelet Morphology Comment NORMAL; RBC Morphology NOTED
[2025-01-17 21:31] LABS: Acanthocytes 1+ (0-2) /OIF; Ovalocytes 1+ (5-14) /OIF; Target Cells 1+ (5-14) /OIF
[2025-01-17 21:32] LABS: Basophilic Stippling 1+ (0-2) /OIF; Dohle Bodies PRESENT; Polychromasia 1+ (0-2) /OIF; Toxic Granulation PRESENT; Toxic Vacuolation PRESENT
[2025-01-17 23:55] LABS: Alanine Aminotransferase < 6 U/L (0-31); Albumin Level 3.3 g/dL (3.5-5.0); Alkaline Phosphatase 128 U/L (39-117); Anion Gap 18 (12-20); Aspartate Amino Transferase 25 U/L (5-31); Bilirubin Total 0.8 mg/dL (0.0-1.0); Blood Urea Nitrogen 20 mg/dL (9-16); Calcium 7.9 mg/dL (8.4-10.2); Carbon Dioxide 24 mmol/L (22-29); Chloride 108 mmol/L (96-108); Estimated Glomerular Filt Rate 31; Glucose Random 157 mg/dL (60-115); Potassium 3.9 mmol/L (3.3-5.1); Sodium 146 mmol/L (135-145); Total Protein 5.5 g/dL (6.5-8.0)
[2025-01-18] VITALS (62 sets, daily range): BP systolic 70–135; BP diastolic 35–76; PULSE 11–126; RESP 16–27; TEMP 34.6–38.6; O2SAT 88–100; BMI 27.3
[2025-01-18] MEDS: Insulin Lispro 100 UNIT/ML 3 ML VIAL SUBCUT ×2 (00:15→11:44)
[2025-01-18] MEDS: Albuterol/Iprat 2.5/0.5MG 3 ML AMPUL.NEB INHALE ×5 (00:28→23:06)
[2025-01-18] MEDS: fentaNYL citrate/NS 1,000 MCG/100 ML PLAST..BAG 10 MCG IVCONT ×3 (00:38→20:29)
[2025-01-18] MEDS: Norepinephrine Bitartrate/D5W 8 MG/250 ML PLAST..BAG 17.73 MG IVCONT (02:02)
[2025-01-18] MEDS: propofoL 1,000 MG/100 ML VIAL 19.46 MG IVCONT ×4 (02:09→19:03)
[2025-01-18 04:41] LABS: VBG Base Excess 4.5 mmol/L; VBG HCO3 28 mmol/L (22-26); VBG pCO2 37 mmHg; VBG pH 7.48 (7.32-7.43); VBG pO2 99 mmHg
[2025-01-18 04:44] LABS: Venous Blood Gas Refer to POC result
[2025-01-18] MEDS: Piperacillin Sodium/Tazobactam 3.375 GM in 0.9 % Sodium Chloride 50 ML IV ×3 (04:56→17:11)
[2025-01-18] MEDS: propofoL 1,000 MG/100 ML VIAL 24.33 MG IVCONT (05:15)
[2025-01-18] MEDS: Rocuronium Bromide 50 MG/5 ML VIAL 30 MG IVPUSH ×2 (05:25→19:17)
[2025-01-18 05:33] LABS: Alanine Aminotransferase < 6 U/L (0-31); Albumin Level 3.2 g/dL (3.5-5.0); Alkaline Phosphatase 132 U/L (39-117); Anion Gap 19 (12-20); Aspartate Amino Transferase 35 U/L (5-31); Bilirubin Total 0.8 mg/dL (0.0-1.0); Blood Urea Nitrogen 23 mg/dL (9-16); Carbon Dioxide 23 mmol/L (22-29); Chloride 109 mmol/L (96-108); Creatinine Clr Calc Pharmacy 33.1; Estimated Glomerular Filt Rate 29; Glucose Random 148 mg/dL (60-115); Magnesium 1.8 mg/dL (1.6-2.6); Phosphorus 3.7 mg/dL (2.7-4.5); Potassium 4.3 mmol/L (3.3-5.1); Sodium 147 mmol/L (135-145); Total Protein 5.4 g/dL (6.5-8.0)
[2025-01-18 05:38] LABS: Hematocrit 27.3 % (37.0-47.0); Hemoglobin 9.2 g/dl (12.0-16.0); Mean Corpuscular HGB Conc 33.7 g/dl (31.0-35.0); Mean Corpuscular Hemoglobin 30.3 pg (27.0-33.0); Mean Corpuscular Volume 89.8 fL (80.0-98.0); Mean Platelet Volume 10.4 fL (9.4-12.3); Platelet Count 296 X10*3/uL (160-400); Red Blood Count 3.04 X10*6/uL (4.20-5.50); Red Cell Distribution Width 17.4 % (11.0-16.0); White Blood Count 11.6 X10*3/uL (4.8-10.8)
[2025-01-18] MEDS: Pantoprazole Sodium 40 MG/10 ML VIAL IVPUSH ×2 (05:42→15:39)
[2025-01-18 05:57] LABS: Band Neutrophils Percent 20 % (3-5); Lymphocytes Absolute Manual 3.9 X10*3/uL (1.2-4.9); Lymphocytes Percent Manual 34 % (20-40); Metamyelocytes Absolute 0.1 X10*3/uL; Metamyelocytes Percent 1 %; Monocytes Absolute Manual 0.2 X10*3/uL (0.1-1.2); Monocytes Percent Manual 2 % (2-11)
[2025-01-18 05:58] LABS: Myelocytes Absolute 0.1 X10*/uL; Myelocytes Percent 1 %; Neutrophils Absolute Manual 7.2 X10*3/uL (2.0-8.3); Neutrophils Percent Manual 42 % (45-73)
[2025-01-18 05:59] LABS: Burr Cells 1+ (0-2) /OIF; Dohle Bodies PRESENT; Hypochromasia 1+ (5-14) /OIF; Ovalocytes 1+ (5-14) /OIF; Schistocytes 1+ (0-2) /OIF
[2025-01-18 06:00] LABS: Stomatocytes 1+ (5-14) /OIF
[2025-01-18 06:02] LABS: Platelet Estimate NORMAL (NORMAL); Polychromasia 1+ (0-2) /OIF; Target Cells 1+ (5-14) /OIF; Toxic Vacuolation PRESENT
[2025-01-18 06:08] LABS: Platelet Morphology Comment NORMAL; RBC Morphology NOTED
[2025-01-18 06:23] LABS: Vancomycin Random 17.2 mcg/mL (15-20)
[2025-01-18] MEDS: Acetaminophen 1,000 MG/100 ML PIGGYBACK 400 MG IV ×2 (06:33→19:18)
--- NOTE | 2025-01-18 06:39 | PC.NURSE ---
0400 HR up to 120s, sats down to 85%, belly breathing, decrease bp with increasing Levo requirements, see emar levo at 0.25 only a peripheral iv. pa is aware . PA made aware, New order for 30mg HIGINIO with good effect. core temp found to be 101.7 packed with ice and IV Tylenol given. bladder scan x2 this shift each time for greater than 500ml. straight cath twice. next DTV is 1200.
--- NOTE | 2025-01-18 07:05 | HE.PHANOTE ---
RE VANCO: RENAL FUNCTION CONTINUES TO DECLINE. WILL REDUCE DOSE OF VANCO FURTHER TO 500 MG Q24 STARTING 01/18 @0800 AND GET ANOTHER LEVEL 01/19 @0600. CONTINUE DAILY RENAL MONITORING.
[2025-01-18] MEDS: vancomycin HCL 500 MG in 0.9 % Sodium Chloride 100 ML 110 MG IV (07:40)
[2025-01-18] MEDS: 0.9 % Sodium Chloride Flush 3 ML SYRINGE IVFLUSH ×2 (07:41→15:33)
[2025-01-18] MEDS: Chlorhexidine Gluc Oral Rinse 15 ML MOUTHWASH BUCCAL ×3 (08:01→21:42)
[2025-01-18] MEDS: Norepinephrine Bitartrate/D5W 8 MG/250 ML PLAST..BAG 47.29 MG IVCONT (10:05)
[2025-01-18 11:12] LABS: Glucose, Whole Blood 206 mg/dL (60-115)
--- NOTE | 2025-01-18 15:13 | PM.CCPN ---
Subjective Subjective Date of Service: 01/18/25 Interval History: Continues to be on ventilator support On Levophed for vasopressor support On propofol for sedation, fentanyl for analgesia Critical Care Time (minutes): 35 Physical Exam Vital Signs: Vital Signs: Last Vital Signs Temp 100.4 F 01/18/25 14:56 Pulse 110 H 01/18/25 14:56 Resp 16 01/18/25 14:56 BP 89/62 L 01/18/25 14:56 Pulse Ox 91 L 01/18/25 14:56 O2 Del Method Mechanical Ventil ation 01/18/25 14:56 O2 Flow Rate 50 01/15/25 23:56 FiO2 50 01/18/25 14:56 BMI result Body Mass Index 27.3 General: Elderly lady in acute distress, ill appearing and tired appearing Nutritional Appearance: well nourished and overweight Eyes: appearance normal, both eyes and all related structures; Alignment and Position: alignment normal and position normal Neck: No lymphadenopathy, no thyromegaly Resp: bilateral air entry equal, bilateral crackles heard Cardio: Regular rate, regular rhythm; Heart sounds: S1 normal heart sound present and S2 normal heart sound present GI: soft, nontender, no guarding, no hepatosplenomegaly : bladder normal to inspection, bladder normal to palpation, no renal angle tenderness Skin: no rashes or lesions noted and elasticity normal Neuro: Sedated with propofol Objective Data Labs 01/18/25 05:31 01/18/25 04:38 Labs: Laboratory Results - last 24 hr 01/17/25 01/17/25 01/17/25 15:09 15:09 15:09 WBC RBC Hgb Hct MCV MCH MCHC RDW Plt Count MPV Immature Gran % (Auto) Neut % (Auto) Lymph % (Auto) [place] % (Auto) Eos % (Auto) Baso % (Auto) Lymph # (Auto) [place] # (Auto) Eos # (Auto) Baso # (Auto) Abs Immat Gran (auto) Absolute Neuts (auto) Absolute Nucleated RBC Nucleated RBC % (auto) Neutrophils % (Manual) Band Neutrophils % Lymphocytes % (Manual) Atypical Lymphs % (Man) Monocytes % (Manual) Metamyelocytes % Myelocytes % Abs Neuts (Manual) Lymphocytes # (Manual) Atyp Lymphs # (Manual) Monocytes # (Manual) Metamyelocytes # Myelocytes # Nucleated RBCs Toxic Granulation Toxic Vacuolation Dohle Bodies Platelet Estimate Plt Morphology Comment RBC Morphology Polychromasia Hypochromasia Basophilic Stippling Target Cells Ovalocytes Stomatocytes Regulo Cells Acanthocytes (Spur) Schistocytes VBG pH VBG pCO2 VBG pO2 VBG HCO3 VBG O2 Saturation VBG Base Excess Sodium Potassium Chloride Carbon Dioxide Anion Gap BUN Creatinine Estim Creat Clear Calc Estimated GFR POC Glucose Random Glucose Calcium Phosphorus Magnesium Total Bilirubin AST ALT Alkaline Phosphatase Total Protein Albumin Bronchial Fluid WBC 5 11 Bronchial Fluid RBC 6 3 Bronchial Lymphocytes 84 Bronchial Other Cells Random Vancomycin Blood Type Antibody Screen 01/17/25 01/17/25 01/17/25 15:09 15:09 16:57 WBC RBC Hgb Hct MCV MCH MCHC RDW Plt Count MPV Immature Gran % (Auto) Neut % (Auto) Lymph % (Auto) [place] % (Auto) Eos % (Auto) Baso % (Auto) Lymph # (Auto) [place] # (Auto) Eos # (Auto) Baso # (Auto) Abs Immat Gran (auto) Absolute Neuts (auto) Absolute Nucleated RBC Nucleated RBC % (auto) Neutrophils % (Manual) Band Neutrophils % Lymphocytes % (Manual) Atypical Lymphs % (Man) Monocytes % (Manual) Metamyelocytes % Myelocytes % Abs Neuts (Manual) Lymphocytes # (Manual) Atyp Lymphs # (Manual) Monocytes # (Manual) Metamyelocytes # Myelocytes # Nucleated RBCs Toxic Granulation Toxic Vacuolation Dohle Bodies Platelet Estimate Plt Morphology Comment RBC Morphology Polychromasia Hypochromasia Basophilic Stippling Target Cells Ovalocytes Stomatocytes Regulo Cells Acanthocytes (Spur) Schistocytes VBG pH VBG pCO2 VBG pO2 VBG HCO3 VBG O2 Saturation VBG Base Excess Sodium Potassium Chloride Carbon Dioxide Anion Gap BUN Creatinine Estim Creat Clear Calc Estimated GFR POC Glucose Random Glucose Calcium Phosphorus Magnesium Total Bilirubin AST ALT Alkaline Phosphatase Total Protein Albumin Bronchial Fluid WBC Bronchial Fluid RBC Bronchial Lymphocytes 94 Bronchial Other Cells 16 6 Random Vancomycin 20.1 H Blood Type Antibody Screen 01/17/25 01/17/25 01/17/25 17:23 20:00 20:24 WBC 10.1 RBC 3.09 L Hgb 9.2 L Hct 27.5 L MCV 89.0 MCH 29.8 MCHC 33.5 RDW 17.6 H Plt Count 292 MPV 10.6 Immature Gran % (Auto) Cancelled Neut % (Auto) Cancelled Lymph % (Auto) Cancelled [place] % (Auto) Cancelled Eos % (Auto) Cancelled Baso % (Auto) Cancelled Lymph # (Auto) Cancelled [place] # (Auto) Cancelled Eos # (Auto) Cancelled Baso # (Auto) Cancelled Abs Immat Gran (auto) Cancelled Absolute Neuts (auto) Cancelled Absolute Nucleated RBC 0.000 Nucleated RBC % (auto) 0.0 Neutrophils % (Manual) 58 Band Neutrophils % 13 H Lymphocytes % (Manual) 24 Atypical Lymphs % (Man) 1 Monocytes % (Manual) 3 Metamyelocytes % Myelocytes % 1 Abs Neuts (Manual) 7.2 Lymphocytes # (Manual) 2.4 Atyp Lymphs # (Manual) 0.1 Monocytes # (Manual) 0.3 Metamyelocytes # Myelocytes # 0.1 Nucleated RBCs 1 H Toxic Granulation PRESENT Toxic Vacuolation PRESENT Dohle Bodies PRESENT Platelet Estimate NORMAL Plt Morphology Comment NORMAL RBC Morphology NOTED Polychromasia 1+ (0-2) Hypochromasia Basophilic Stippling 1+ (0-2) Target Cells 1+ (5-14) Ovalocytes 1+ (5-14) Stomatocytes Regulo Cells Acanthocytes (Spur) 1+ (0-2) Schistocytes VBG pH VBG pCO2 VBG pO2 VBG HCO3 VBG O2 Saturation VBG Base Excess Sodium Potassium Chloride Carbon Dioxide Anion Gap BUN Creatinine Estim Creat Clear Calc Estimated GFR POC Glucose 141 H Random Glucose Calcium Phosphorus Magnesium Total Bilirubin AST ALT Alkaline Phosphatase Total Protein Albumin Bronchial Fluid WBC Bronchial Fluid RBC Bronchial Lymphocytes Bronchial Other Cells Random Vancomycin Blood Type B Positive Antibody Screen NEGATIVE 01/17/25 01/18/25 01/18/25 23:23 04:37 04:38 WBC RBC Hgb Hct MCV MCH MCHC RDW Plt Count MPV Immature Gran % (Auto) Neut % (Auto) Lymph % (Auto) [place] % (Auto) Eos % (Auto) Baso % (Auto) Lymph # (Auto) [place] # (Auto) Eos # (Auto) Baso # (Auto) Abs Immat Gran (auto) Absolute Neuts (auto) Absolute Nucleated RBC Nucleated RBC % (auto) Neutrophils % (Manual) Band Neutrophils % Lymphocytes % (Manual) Atypical Lymphs % (Man) Monocytes % (Manual) Metamyelocytes % Myelocytes % Abs Neuts (Manual) Lymphocytes # (Manual) Atyp Lymphs # (Manual) Monocytes # (Manual) Metamyelocytes # Myelocytes # Nucleated RBCs Toxic Granulation Toxic Vacuolation Dohle Bodies Platelet Estimate Plt Morphology Comment RBC Morphology Polychromasia Hypochromasia Basophilic Stippling Target Cells Ovalocytes Stomatocytes Regulo Cells Acanthocytes (Spur) Schistocytes VBG pH 7.48 H VBG pCO2 37 VBG pO2 99 VBG HCO3 28 H VBG O2 Saturation 100.0 VBG Base Excess 4.5 Sodium 146 H 147 H Potassium 3.9 4.3 Chloride 108 109 H Carbon Dioxide 24 23 Anion Gap 18 19 BUN 20 H 23 H Creatinine 1.70 H 1.80 H Estim Creat Clear Calc 35.0 33.1 Estimated GFR 31 29 POC Glucose Random Glucose 157 H 148 H Calcium 7.9 L 8.0 L Phosphorus 3.7 Magnesium 1.8 Total Bilirubin 0.8 0.8 AST 25 35 H ALT < 6 < 6 Alkaline Phosphatase 128 H 132 H Total Protein 5.5 L 5.4 L Albumin 3.3 L 3.2 L Bronchial Fluid WBC Bronchial Fluid RBC Bronchial Lymphocytes Bronchial Other Cells Random Vancomycin Blood Type Antibody Screen 01/18/25 01/18/25 01/18/25 05:31 06:03 11:07 WBC 11.6 H RBC 3.04 L Hgb 9.2 L Hct 27.3 L MCV 89.8 MCH 30.3 MCHC 33.7 RDW 17.4 H Plt Count 296 MPV 10.4 Immature Gran % (Auto) Cancelled Neut % (Auto) Cancelled Lymph % (Auto) Cancelled [place] % (Auto) Cancelled Eos % (Auto) Cancelled Baso % (Auto) Cancelled Lymph # (Auto) Cancelled [place] # (Auto) Cancelled Eos # (Auto) Cancelled Baso # (Auto) Cancelled Abs Immat Gran (auto) Cancelled Absolute Neuts (auto) Cancelled Absolute Nucleated RBC 0.000 Nucleated RBC % (auto) 0.0 Neutrophils % (Manual) 42 L Band Neutrophils % 20 H Lymphocytes % (Manual) 34 Atypical Lymphs % (Man) Monocytes % (Manual) 2 Metamyelocytes % 1 Myelocytes % 1 Abs Neuts (Manual) 7.2 Lymphocytes # (Manual) 3.9 Atyp Lymphs # (Manual) Monocytes # (Manual) 0.2 Metamyelocytes # 0.1 Myelocytes # 0.1 Nucleated RBCs Toxic Granulation Toxic Vacuolation PRESENT Dohle Bodies PRESENT Platelet Estimate NORMAL Plt Morphology Comment NORMAL RBC Morphology NOTED Polychromasia 1+ (0-2) Hypochromasia 1+ (5-14) Basophilic Stippling Target Cells 1+ (5-14) Ovalocytes 1+ (5-14) Stomatocytes 1+ (5-14) Regulo Cells 1+ (0-2) Acanthocytes (Spur) Schistocytes 1+ (0-2) VBG pH VBG pCO2 VBG pO2 VBG HCO3 VBG O2 Saturation VBG Base Excess Sodium Potassium Chloride Carbon Dioxide Anion Gap BUN Creatinine Estim Creat Clear Calc Estimated GFR POC Glucose 206 H Random Glucose Calcium Phosphorus Magnesium Total Bilirubin AST ALT Alkaline Phosphatase Total Protein Albumin Bronchial Fluid WBC Bronchial Fluid RBC Bronchial Lymphocytes Bronchial Other Cells Random Vancomycin 17.2 Blood Type Antibody Screen Microbiology Microbiology Results: Microbiology 01/17/25 15:09 Bronch Rll Gram Stain - Final 01/17/25 15:09 Bronch Rll - Preliminary No growth to date. 01/17/25 15:09 Bronch Lll Gram Stain - Final 01/17/25 15:09 Bronch Lll - Preliminary No growth to date. 01/17/25 15:09 Bronch Lll Routine Culture - Final 01/16/25 07:36 Aspirate - Suctioned Gram Stain - Final 01/16/25 07:36 Aspirate - Suctioned Sputum Culture - Final 01/15/25 16:42 Blood - Venous Blood Culture - Preliminary No growth after 48 hours. 01/15/25 16:37 Blood - Venous Blood Culture - Preliminary No growth after 48 hours. Progress Note: A&P Assessment and plan (1) Acute hypoxic respiratory failure: Status: Acute (2) Cardiogenic shock: Status: Acute Plan Neuro: Acute encephalopathy possibly due to metabolic encephalopathy On propofol for sedation, as needed fentanyl for analgesia, we will taper as tolerated Close neurological status monitoring in the ICU every hour Cardiac: Cardiogenic Shock: Possibly secondary to positive pressure ventilation On Levophed support- increasing doses of Levophed, titrate Levophed to keep map above 65 mm Hg Lasix has been turned off as it did not have much effect on the oxygenation, we will switch to 80 mg b.i.d. Repeat TTE showed LV function, previous echo 2 weeks ago normal Respiratory: Acute hypoxemic respiratory failure due to pulmonary edema Currently on ventilator support On PRVC mode FiO2 decreased to 60%, PEEP 10, TV 330, RR 24, not a candidate for pressor support trials due to high vent support Peak pressures and plateau pressures are under the curve Ventilator management bundle with head end elevation, aspiration precaution, chlorhexidine mouthwash, daily awakening trials, daily spontaneous breathing trials sputum cultures sent Bronchoscopy showed erythematous mucosal lesions, no ulcerations mostly in the right side than the left side. No endobronchial lesions noted, very minimal secretions. GI bleed: Patient has drop in hemoglobin along with stool for occult blood positive but stool is still brown in color, no obvious melena or hematemesis. SHe received 2 units PRBC transfusions. Possibly the bleeding is ongoing for some time. There was some concerns about GI bleed during the previous hospitalization On pantoprazole IV b.i.d. Renal: Acute on chronic kidney disease: Acute kidney injury possibly due to diuresis, we will cut down diuresis Has chronic kidney disease stage 3 at baseline We will closely monitor I's and O's Avoid nephrotoxic medications Heme: Acute blood loss anemia: Possibly secondary to GI bleed, received 2 units of PRBC on 01/16/2025 closely monitor H&H, transfuse for hemoglobin less than 7 grams/deciliter Increased INR, fibrinogen 300 possibly ruling out DIC Endocrine: Blood sugars under control Sliding scale insulin as needed Infectious disease: Pancultures sent, negative respiratory viral panel Pending beta 2 glucan given atypical presentation, LDH 296 On empiric vanc and Zosyn; we will add fluconazole as the patient does not have significant improvement in breathing Musculoskeletal: Decubitus ulcer prevention protocol Lines: Peripheral Prophylaxis: SCD due to GI bleed, pantoprazole Quality Stroke Does the patient have a stroke diagnosis?: No VTE Prior VTE?: No VTE Risk Level:: Medical - moderate - high VTE Device Contraindication: N/A - Device Ordered VTE Drug Contraindication: N/A - Med Ordered
[2025-01-18] MEDS: Norepinephrine Bitartrate/D5W 8 MG/250 ML PLAST..BAG 44.92 MG IVCONT (15:28)
[2025-01-18] MEDS: Fluconazole in NaCl,Iso-Osm 400 MG/200 ML PIGGYBACK 100 MG IV (15:34)
[2025-01-18] MEDS: Furosemide 100 MG/10 ML VIAL 80 MG IVPUSH (15:36)
--- NOTE | 2025-01-18 15:45 | W.PM.CCHP ---
Procedures Date of Service Date of Service: 01/18/25 Central Line Placement Right IJ: Consent for Procedure: Elective - informed consent obtained Time out performed: Yes Sterile Technique Used: Yes Patient placed on monitor/pulse ox: Yes MD prep: mask, gown and gloves Central line prep: Povidone-Iodine 1% and Chlorhexidine scrub Ultrasound used for placement: Yes Central line lumen inserted: triple Post procedure: sutured in place, good blood return, all ports aspirated, flushed, capped and sterile dressing applied Post procedure x-ray: tip of catheter in good position and no pneumothorax seen Patient tolerated procedure: well and no complications Complications: none
[2025-01-18 17:19] LABS: Glucose, Whole Blood 140 mg/dL (60-115)
--- NOTE | 2025-01-18 17:44 | PC.NURSE ---
Assumed care at 0700. Pt intubated, on levophed drip and sedative drips. Pt?s BP persistently low; MD made aware. Levophed titrated per MD and protocol. MD stated if levo reaches 0.5 mcg/kg/min, add vasopressin. Bladder scan at approx 1200 showed 206 mL urine. Next DTV at 1800. Central line placed in R IJ at approx 1600. See MAR and assessments for further details. Pt repositioned q2hr as tolerated. Bed locked and in lowest position.
[2025-01-18] MEDS: Norepinephrine Bitartrate/D5W 8 MG/250 ML PLAST..BAG 54.38 MG IVCONT (20:25)
[2025-01-19] VITALS (58 sets, daily range): BP systolic 131–172; BP diastolic 65–87; PULSE 75–109; RESP 2–36; TEMP 34.6–38.6; O2SAT 89–99; BMI 28.3
[2025-01-19] MEDS: Piperacillin Sodium/Tazobactam 3.375 GM in 0.9 % Sodium Chloride 50 ML IV ×4 (00:15→17:13)
[2025-01-19] MEDS: propofoL 1,000 MG/100 ML VIAL 19.46 MG IVCONT ×3 (00:20→08:23)
[2025-01-19] MEDS: 0.9 % Sodium Chloride Flush 3 ML SYRINGE IVFLUSH ×3 (00:25→14:52)
[2025-01-19] MEDS: Insulin Lispro 100 UNIT/ML 3 ML VIAL SUBCUT ×4 (00:25→18:14)
[2025-01-19 00:29] LABS: Glucose, Whole Blood 266 mg/dL (60-115)
[2025-01-19] MEDS: Norepinephrine Bitartrate/D5W 8 MG/250 ML PLAST..BAG 40.19 MG IVCONT (01:01)
[2025-01-19 04:11] LABS: Venous Blood Gas Refer to POC result
[2025-01-19 04:14] LABS: VBG Base Excess 1.9 mmol/L; VBG HCO3 28 mmol/L (22-26); VBG pCO2 54 mmHg; VBG pH 7.32 (7.32-7.43); VBG pO2 59 mmHg
[2025-01-19 04:36] LABS: Hematocrit 32.4 % (37.0-47.0); Hemoglobin 10.4 g/dl (12.0-16.0); Mean Corpuscular HGB Conc 32.1 g/dl (31.0-35.0); Mean Corpuscular Hemoglobin 29.4 pg (27.0-33.0); Mean Corpuscular Volume 91.5 fL (80.0-98.0); Mean Platelet Volume 11.1 fL (9.4-12.3); Platelet Count 344 X10*3/uL (160-400); Red Blood Count 3.54 X10*6/uL (4.20-5.50); Red Cell Distribution Width 17.5 % (11.0-16.0); WBC ABN SCTR FOR CBC 1
[2025-01-19 04:37] LABS: White Blood Count 8.7 X10*3/uL (4.8-10.8)
[2025-01-19] MEDS: Albuterol/Iprat 2.5/0.5MG 3 ML AMPUL.NEB INHALE ×4 (04:55→22:54)
[2025-01-19 04:56] LABS: Alanine Aminotransferase < 6 U/L (0-31); Albumin Level 3.2 g/dL (3.5-5.0); Alkaline Phosphatase 150 U/L (39-117); Anion Gap 17 (12-20); Aspartate Amino Transferase 36 U/L (5-31); Band Neutrophils Percent 25 % (3-5); Blood Urea Nitrogen 33 mg/dL (9-16); Calcium 8.2 mg/dL (8.4-10.2); Carbon Dioxide 26 mmol/L (22-29); Chloride 106 mmol/L (96-108); Creatinine Clr Calc Pharmacy 24.5; Estimated Glomerular Filt Rate 22; Glucose Random 220 mg/dL (60-115); Lymphocytes Absolute Manual 0.3 X10*3/uL (1.2-4.9); Lymphocytes Percent Manual 4 % (20-40); Magnesium 2.1 mg/dL (1.6-2.6); Metamyelocytes Absolute 0.5 X10*3/uL; Metamyelocytes Percent 6 %; Monocytes Absolute Manual 0.3 X10*3/uL (0.1-1.2); Monocytes Percent Manual 3 % (2-11); Myelocytes Absolute 0.1 X10*/uL; Myelocytes Percent 1 %; Neutrophils Absolute Manual 7.5 X10*3/uL (2.0-8.3); Neutrophils Percent Manual 61 % (45-73); Phosphorus 4.7 mg/dL (2.7-4.5); Sodium 145 mmol/L (135-145); Total Protein 5.7 g/dL (6.5-8.0)
[2025-01-19 04:57] LABS: Large Platelet PRESENT; Platelet Estimate NORMAL (NORMAL); Platelet Morphology Comment NOTED; RBC Morphology NOTED
[2025-01-19 04:58] LABS: Acanthocytes 1+ (0-2) /OIF; Schistocytes 1+ (0-2) /OIF; Target Cells 1+ (5-14) /OIF; Tear Drop Cells 1+ (0-2) /OIF
[2025-01-19] MEDS: Pantoprazole Sodium 40 MG/10 ML VIAL IVPUSH ×2 (05:13→15:49)
[2025-01-19] MEDS: Albumin Human 25 % 100 ML 133.33 ML IV ×2 (05:22→06:13)
[2025-01-19] MEDS: fentaNYL citrate/NS 1,000 MCG/100 ML PLAST..BAG 10 MCG IVCONT (05:36)
[2025-01-19 06:30] LABS: Vancomycin Random 17.4 mcg/mL (15-20)
--- NOTE | 2025-01-19 06:48 | HE.PHANOTE ---
Addendum entered by Lola Greco dolores 01/19/25 07:30: After further consideration, Durga Stone decided to discontinue vanco and continue with only zosyn for antibiotic therapy. Order discontinued and orders for vanco random stopped. Original Note: re vanco and renal function: vanco trough holding within therapeutic range but continues to see large drops in renal function daily. Messaged provider Durga Stone to ensure we are ok to continue with concurrent Zosyn and Vanco. He dc'd the lasix and was comfortable with continuing both antibiotics for now. Will continue daily monitoring of renal and vanco levels and continue on 500 mg daily vanco dose.
[2025-01-19] MEDS: Chlorhexidine Gluc Oral Rinse 15 ML MOUTHWASH BUCCAL ×3 (08:08→20:01)
[2025-01-19] MEDS: Norepinephrine Bitartrate/D5W 8 MG/250 ML PLAST..BAG 17.73 MG IVCONT (09:19)
--- NOTE | 2025-01-19 10:22 | P.PNCC_ITS ---
Subjective Subjective Date of Service: 01/19/25 Interval History: Ventilator settings upon starting steroids Renal function slowly worsening Still on Levophed Critical Care Time (minutes): 35 Physical Exam 2 Vital Signs: Vital Signs: Last Vital Signs Temp 100.6 F H 01/19/25 10:00 Pulse 91 01/19/25 10:00 Resp 22 H 01/19/25 10:00 BP 143/73 H 01/19/25 10:00 Pulse Ox 96 01/19/25 10:00 O2 Del Method Mechanical Ventil ation 01/19/25 10:00 O2 Flow Rate 50 01/15/25 23:56 FiO2 40 01/19/25 10:00 BMI result Body Mass Index 28.3 General: Elderly appearing, black lady, unresponsive in the bed connected to the ventilator Nutritional Appearance: well nourished and overweight Eyes: appearance normal, both eyes and all related structures; Alignment and Position: alignment normal and position normal Neck: No lymphadenopathy, no thyromegaly Resp: bilateral air entry equal, bilateral diffuse crackles heard Cardio: Regular rate, regular rhythm; Heart sounds: S1 normal heart sound present and S2 normal heart sound present GI: soft, nontender, no guarding, no hepatosplenomegaly : bladder normal to inspection, bladder normal to palpation, no renal angle tenderness Skin: no rashes or lesions noted and elasticity normal Neuro: Sedated with propofol Objective Data Labs 01/19/25 04:13 01/19/25 04:13 Labs: Laboratory Results - last 24 hr 01/18/25 01/18/25 01/19/25 11:07 17:14 00:16 WBC RBC Hgb Hct MCV MCH MCHC RDW Plt Count MPV Immature Gran % (Auto) Neut % (Auto) Lymph % (Auto) [place] % (Auto) Eos % (Auto) Baso % (Auto) Lymph # (Auto) [place] # (Auto) Eos # (Auto) Baso # (Auto) Abs Immat Gran (auto) Absolute Neuts (auto) Absolute Nucleated RBC Nucleated RBC % (auto) Neutrophils % (Manual) Band Neutrophils % Lymphocytes % (Manual) Monocytes % (Manual) Metamyelocytes % Myelocytes % Abs Neuts (Manual) Lymphocytes # (Manual) Monocytes # (Manual) Metamyelocytes # Myelocytes # Platelet Estimate Large Platelets Plt Morphology Comment RBC Morphology Target Cells Tear Drop Cells Acanthocytes (Spur) Schistocytes VBG pH VBG pCO2 VBG pO2 VBG HCO3 VBG O2 Saturation VBG Base Excess Sodium Potassium Chloride Carbon Dioxide Anion Gap BUN Creatinine Estim Creat Clear Calc Estimated GFR POC Glucose 206 H 140 H 266 H Random Glucose Calcium Phosphorus Magnesium Total Bilirubin AST ALT Alkaline Phosphatase Total Protein Albumin Random Vancomycin 01/19/25 01/19/25 01/19/25 04:10 04:13 05:58 WBC 8.7 RBC 3.54 L Hgb 10.4 L Hct 32.4 L MCV 91.5 MCH 29.4 MCHC 32.1 RDW 17.5 H Plt Count 344 MPV 11.1 Immature Gran % (Auto) Cancelled Neut % (Auto) Cancelled Lymph % (Auto) Cancelled [place] % (Auto) Cancelled Eos % (Auto) Cancelled Baso % (Auto) Cancelled Lymph # (Auto) Cancelled [place] # (Auto) Cancelled Eos # (Auto) Cancelled Baso # (Auto) Cancelled Abs Immat Gran (auto) Cancelled Absolute Neuts (auto) Cancelled Absolute Nucleated RBC 0.000 Nucleated RBC % (auto) 0.0 Neutrophils % (Manual) 61 Band Neutrophils % 25 H Lymphocytes % (Manual) 4 L Monocytes % (Manual) 3 Metamyelocytes % 6 Myelocytes % 1 Abs Neuts (Manual) 7.5 Lymphocytes # (Manual) 0.3 L Monocytes # (Manual) 0.3 Metamyelocytes # 0.5 Myelocytes # 0.1 Platelet Estimate NORMAL Large Platelets PRESENT Plt Morphology Comment NOTED RBC Morphology NOTED Target Cells 1+ (5-14) Tear Drop Cells 1+ (0-2) Acanthocytes (Spur) 1+ (0-2) Schistocytes 1+ (0-2) VBG pH 7.32 VBG pCO2 54 VBG pO2 59 VBG HCO3 28 H VBG O2 Saturation 85.0 VBG Base Excess 1.9 Sodium 145 Potassium 4.0 Chloride 106 Carbon Dioxide 26 Anion Gap 17 BUN 33 H Creatinine 2.26 H Estim Creat Clear Calc 24.5 Estimated GFR 22 POC Glucose Random Glucose 220 H Calcium 8.2 L Phosphorus 4.7 H Magnesium 2.1 Total Bilirubin 1.0 AST 36 H ALT < 6 Alkaline Phosphatase 150 H Total Protein 5.7 L Albumin 3.2 L Random Vancomycin 17.4 Microbiology Microbiology Results: Microbiology 01/17/25 15:09 Bronch Lll Gram Stain - Final 01/17/25 15:09 Bronch Lll - Final No growth after 2 days 01/17/25 15:09 Bronch Lll Routine Culture - Final 01/17/25 15:09 Bronch Rll Gram Stain - Final 01/17/25 15:09 Bronch Rll - Final No growth after 2 days 01/16/25 07:36 Aspirate - Suctioned Gram Stain - Final 01/16/25 07:36 Aspirate - Suctioned Sputum Culture - Final 01/15/25 16:42 Blood - Venous Blood Culture - Preliminary No growth after 48 hours. 01/15/25 16:37 Blood - Venous Blood Culture - Preliminary No growth after 48 hours. Progress Note: A&P Assessment and plan (1) Cardiogenic shock: Status: Acute (2) Acute hypoxic respiratory failure: Status: Acute (3) CAMPOS (acute kidney injury): Status: Resolved Plan 59-year-old lady who is a chronic smoker with PMH of CKD stage 3, hypertension, DM, presyncopal episodes, orthostatic hypotension, recurrent UTIs, chronic diarrhea of unknown etiology, anxiety, migraines, asthma, depression presented with acute onset shortness of breath needing to be intubated and placed on ventilator support. CT chest showed bilateral ground-glass infiltrates, patient was aggressively diuresed without much improvement in oxygenation, all cultures including BAL came back negative. Patient was started on vanc and Zosyn along with Lasix drip without much improvement in oxygenation. Empiric steroids for started following which her oxygenation improved, her FiO2 is down to 40% with stable sats, we will try on pressor support trials today. Concerns for GI bleed needed PRVC transfusion, but no active bleeding was found possibly the bleeding is chronic in nature. Neuro: Acute encephalopathy possibly due to metabolic encephalopathy On propofol for sedation, as needed fentanyl for analgesia, we will taper today bridging with Precedex to wean from ventilator Close neurological status monitoring in the ICU every hour Cardiac: Cardiogenic Shock: Possibly secondary to positive pressure ventilation On Levophed support- increasing doses of Levophed, titrate Levophed to keep map above 65 mm Hg Lasix has been turned off as it did not have much effect on the oxygenation; she was switched to 80 mg b.i.d she was fluid balance positive by 1.7 L yesterday. Repeat TTE showed LV function, previous echo 2 weeks ago normal Respiratory: Acute hypoxemic respiratory failure due to pulmonary edema Currently on ventilator support On PRVC mode FiO2 decreased to 40%, PEEP 8, TV 330, RR 24, we will try the patient on pressor support trials as tolerated today Peak pressures and plateau pressures are under the curve Ventilator management bundle with head end elevation, aspiration precaution, chlorhexidine mouthwash, daily awakening trials, daily spontaneous breathing trials sputum cultures sent Bronchoscopy showed erythematous mucosal lesions, no ulcerations mostly in the right side than the left side. No endobronchial lesions noted, very minimal secretions. Bowel cultures remained negative. Given the CT scan not showing any dense consolidation but diffuse ground-glass opacities, cultures negative, white count is normal, no response to antibiotics she was started on empiric steroids with which her oxygenation improved significantly. We will continue steroids for now. GI bleed: Patient has drop in hemoglobin along with stool for occult blood positive but stool is still brown in color, no obvious melena or hematemesis. She received 2 units PRBC transfusions. Possibly the bleeding is ongoing for some time. There was some concerns about GI bleed during the previous hospitalization On pantoprazole IV b.i.d. Renal: Acute on chronic kidney disease: Acute kidney injury possibly due to ATN from shock. Creatinine trending up, no indication for renal replacement therapy we will continue to monitor. Has chronic kidney disease stage 3 at baseline We will closely monitor I's and O's Avoid nephrotoxic medications Heme: Acute blood loss anemia: Possibly secondary to GI bleed, received 2 units of PRBC on 01/16/2025 closely monitor H&H, transfuse for hemoglobin less than 7 grams/deciliter Increased INR, fibrinogen 300 possibly ruling out DIC Endocrine: Blood sugars under control Sliding scale insulin as needed Infectious disease: Pancultures sent, negative respiratory viral panel Pending beta 2 glucan given atypical presentation, LDH 296 On empiric vanc and Zosyn, will discontinue vanc Musculoskeletal: Decubitus ulcer prevention protocol Lines: Peripheral Prophylaxis: SCD due to GI bleed, pantoprazole Quality Stroke Does the patient have a stroke diagnosis?: No VTE Prior VTE?: No VTE Risk Level:: Medical - moderate - high VTE Device Contraindication: N/A - Device Ordered VTE Drug Contraindication: N/A - Med Ordered
[2025-01-19] MEDS: dexmedeTOMIDine HCL/NS 400 MCG/100 ML PLAST..BAG 18.15 MCG IVCONT (10:57)
[2025-01-19 11:26] LABS: Glucose, Whole Blood 212 mg/dL (60-115)
[2025-01-19] MEDS: Acetaminophen 1,000 MG/100 ML PIGGYBACK 400 MG IV (13:32)
[2025-01-19] MEDS: Furosemide 100 MG/10 ML VIAL 80 MG IVPUSH (14:54)
[2025-01-19 16:28] LABS: Fungitell 67 pg/mL (<60); Fungitell 1,3 beta glucan Indeterminate
[2025-01-19 18:10] LABS: Glucose, Whole Blood 245 mg/dL (60-115)
--- NOTE | 2025-01-19 18:18 | PC.NURSE ---
Assumed care at 0700. Pt intubated, on levophed drip, and sedative drips. Per MD, sedation vacation started at 1030. Precedex drip started and cross titrated with propofol and fentanyl. Per RT, pt did not tolerate lowering of fi02 or peep. Sedation titrated off at approx 1130. Levophed titrated off at approx 1200. PSV trial started at 1315. Vent set to 10 over 8 at an fio2 of 40%. At this time, pt did not rouse to noxious stimuli. Pt continues on PSV. Pt?s temp noted to be elevated. IV acetaminophen ordered and administered with no positive effect. Ice packs placed with positive result. See MAR and assessments for further details. Pt repositioned q2hr. Bed locked and in lowest position.
[2025-01-19] MEDS: dexmedeTOMIDine HCL/NS 400 MCG/100 ML PLAST..BAG 5.45 MCG IVCONT (19:31)
[2025-01-19] MEDS: HYDROmorphone HCl 0.5 MG/0.5 ML SYRINGE IVPUSH (20:40)
[2025-01-19 21:08] LABS: Hematocrit 23.6 % (37.0-47.0); Hemoglobin 7.9 g/dl (12.0-16.0)
[2025-01-19 21:23] LABS: Anion Gap 21 (12-20); Blood Urea Nitrogen 41 mg/dL (9-16); Carbon Dioxide 22 mmol/L (22-29); Chloride 105 mmol/L (96-108); Creatinine Clr Calc Pharmacy 24.3; Estimated Glomerular Filt Rate 21; Glucose Random 298 mg/dL (60-115); Potassium 3.6 mmol/L (3.3-5.1); Sodium 144 mmol/L (135-145)
[2025-01-20] VITALS (44 sets, daily range): BP systolic 101–171; BP diastolic 52–97; PULSE 75–96; RESP 14–22; TEMP 34.6–39.1; O2SAT 93–100; BMI 27.1
[2025-01-20 00:04] LABS: Glucose, Whole Blood 314 mg/dL (60-115)
[2025-01-20] MEDS: Insulin Lispro 100 UNIT/ML 3 ML VIAL SUBCUT ×4 (00:21→18:07)
[2025-01-20] MEDS: Piperacillin Sodium/Tazobactam 3.375 GM in 0.9 % Sodium Chloride 50 ML IV ×2 (00:21→05:00)
[2025-01-20] MEDS: 0.9 % Sodium Chloride Flush 3 ML SYRINGE IVFLUSH ×3 (00:26→15:06)
[2025-01-20] MEDS: Rocuronium Bromide 50 MG/5 ML VIAL 30 MG IVPUSH (01:01)
[2025-01-20 04:06] LABS: VBG Base Excess 9.2 mmol/L; VBG HCO3 31 mmol/L (22-26); VBG pCO2 35 mmHg; VBG pH 7.56 (7.32-7.43); VBG pO2 44 mmHg
[2025-01-20 04:19] LABS: Mean Corpuscular Hemoglobin 29.6 pg (27.0-33.0); Mean Platelet Volume 10.8 fL (9.4-12.3); Platelet Count 216 X10*3/uL (160-400); Red Cell Distribution Width 16.8 % (11.0-16.0); White Blood Count 6.9 X10*3/uL (4.8-10.8)
[2025-01-20 04:29] LABS: Hemoglobin 6.8 g/dl (12.0-16.0)
[2025-01-20 04:41] LABS: Alanine Aminotransferase < 6 U/L (0-31); Albumin Level 2.9 g/dL (3.5-5.0); Alkaline Phosphatase 163 U/L (39-117); Anion Gap 18 (12-20); Aspartate Amino Transferase 33 U/L (5-31); Bilirubin Total 0.9 mg/dL (0.0-1.0); Blood Urea Nitrogen 47 mg/dL (9-16); Calcium 7.9 mg/dL (8.4-10.2); Carbon Dioxide 26 mmol/L (22-29); Chloride 105 mmol/L (96-108); Creatinine Clr Calc Pharmacy 24.3; Estimated Glomerular Filt Rate 21; Glucose Random 278 mg/dL (60-115); Phosphorus 3.9 mg/dL (2.7-4.5); Potassium 3.5 mmol/L (3.3-5.1); Sodium 145 mmol/L (135-145); Total Protein 4.8 g/dL (6.5-8.0)
[2025-01-20 04:59] LABS: Band Neutrophils Percent 5 % (3-5); Lymphocytes Absolute Manual 1.2 X10*3/uL (1.2-4.9); Lymphocytes Percent Manual 17 % (20-40); Metamyelocytes Absolute 0.1 X10*3/uL; Metamyelocytes Percent 2 %; Neutrophils Absolute Manual 5.6 X10*3/uL (2.0-8.3); Neutrophils Percent Manual 76 % (45-73); RBC Morphology NOTED
[2025-01-20 05:01] LABS: Large Platelet PRESENT; Macrocytosis 1+ (5-14) /OIF; Platelet Estimate NORMAL (NORMAL); Platelet Morphology Comment NOTED
[2025-01-20 05:02] LABS: Schistocytes 1+ (0-2) /OIF
[2025-01-20 05:03] LABS: Basophilic Stippling 1+ (0-2) /OIF; Hypochromasia 1+ (5-14) /OIF; Ovalocytes 1+ (5-14) /OIF; Polychromasia 1+ (0-2) /OIF; Stomatocytes 1+ (5-14) /OIF; Target Cells 2+ (15-30) /OIF; Tear Drop Cells 1+ (0-2) /OIF
[2025-01-20 05:04] LABS: Dohle Bodies PRESENT; Smudge Cells PRESENT; Toxic Granulation PRESENT
[2025-01-20] MEDS: Pantoprazole Sodium 40 MG/10 ML VIAL IVPUSH ×2 (05:47→15:33)
[2025-01-20 05:48] LABS: Glucose, Whole Blood 303 mg/dL (60-115)
[2025-01-20] MEDS: Albuterol/Iprat 2.5/0.5MG 3 ML AMPUL.NEB INHALE ×4 (05:51→23:07)
[2025-01-20] MEDS: Furosemide 100 MG/10 ML VIAL 80 MG IVPUSH ×2 (06:55→15:05)
[2025-01-20] MEDS: Potassium Chloride/H20 20 MEQ/100 ML PIGGYBACK 100 MEQ IV (07:26)
[2025-01-20] MEDS: Chlorhexidine Gluc Oral Rinse 15 ML MOUTHWASH BUCCAL ×3 (07:26→20:05)
[2025-01-20 08:22] LABS: Venous Blood Gas Refer to POC result
[2025-01-20] MEDS: Nystatin Powder 15 GM BOTTLE 1 APPL TOPICAL ×3 (08:32→20:05)
--- NOTE | 2025-01-20 10:07 | MHC.CLN ---
F/U PT REMAINS INTUBATED AND SEDATED DISCUSSED AT ROUNDS WITH MD PLAN FOR MRI TODAY CONTINUE GLUCERNA AT MAX GOAL RATE 35ML/HR WITH 240ML FREE WATER FLUSHES Q 6 HRS TO PROVIDE 840KCALS, 35G PROTEIN, 1676ML TOTAL FREE WATER FROM FORMULA AND FLUSHES (27ML/KG) CONTINUE TO MONITOR TOLERANCE AND LYTES
--- NOTE | 2025-01-20 10:26 | P.PNCC_ITS ---
Subjective Subjective Date of Service: 01/20/25 Interval History: 59-year-old lady with underlying history of CKD stage III, hypertension, diabetes mellitus, orthostatic hypotension, recurrent UTIs, chronic diarrhea admitted on 01/15/2025 with dyspnea and hypoxia initially requiring BiPAP support. Laboratory studies significant for metabolic acidosis with elevated BNP. Patient wants started on empiric antibiotics and colloidal support. Hospital course significant for progressive respiratory distress requiring intubation 01/16/2025, occult acute blood loss anemia. No events overnight. Critical Care Time (minutes): 60 Physical Exam 2 Vital Signs: Vital Signs: Last Vital Signs Temp 99.9 F 01/20/25 10:00 Pulse 78 01/20/25 10:00 Resp 14 01/20/25 10:00 BP 146/80 H 01/20/25 10:00 Pulse Ox 95 01/20/25 10:00 O2 Del Method Mechanical Ventil ation 01/20/25 10:00 O2 Flow Rate 50 01/15/25 23:56 FiO2 30 01/20/25 10:00 BMI result Body Mass Index 27.1 Const: General: no acute distress and other (Sedated on ventilatory support, poor arousal with sedation vacation) Eyes: Sclerae: sclerae normal EOM: EOMs intact bilaterally Neck: Neck: Yes no lymphadenopathy, Yes trachea midline and Yes supple Resp: Auscultation: clear to auscultation bilaterally Cardio: Rate: regular rate Rhythm: regular rhythm Heart sounds: no gallops, no murmurs and no rubs GI: Palpation (GI): Soft to palpation and Other GI palpation findings present ( Nontender) Auscultation: normal bowel sounds Extrem: General: No clubbing, No cyanosis and Yes edema (1+ bilateral) Objective Data Labs 01/20/25 03:56 01/20/25 03:56 Labs: Laboratory Results - last 24 hr 01/16/25 01/17/25 01/19/25 08:46 20:00 11:23 WBC RBC Hgb Hct MCV MCH MCHC RDW Plt Count MPV Immature Gran % (Auto) Neut % (Auto) Lymph % (Auto) [place] % (Auto) Eos % (Auto) Baso % (Auto) Lymph # (Auto) [place] # (Auto) Eos # (Auto) Baso # (Auto) Abs Immat Gran (auto) Absolute Neuts (auto) Absolute Nucleated RBC Nucleated RBC % (auto) Neutrophils % (Manual) Band Neutrophils % Lymphocytes % (Manual) Metamyelocytes % Abs Neuts (Manual) Lymphocytes # (Manual) Metamyelocytes # Smudge Cells Toxic Granulation Dohle Bodies Platelet Estimate Large Platelets Plt Morphology Comment RBC Morphology Polychromasia Hypochromasia Basophilic Stippling Macrocytosis Target Cells Tear Drop Cells Ovalocytes Stomatocytes Schistocytes VBG pH VBG pCO2 VBG pO2 VBG HCO3 VBG O2 Saturation VBG Base Excess Sodium Potassium Chloride Carbon Dioxide Anion Gap BUN Creatinine Estim Creat Clear Calc Estimated GFR POC Glucose 212 H Random Glucose Calcium Phosphorus Total Bilirubin AST ALT Alkaline Phosphatase Total Protein Albumin Stl C. cayetanensis PCR Stool Rotavirus A PCR Stl Adenov F 40/41 PCR Stool Astrovirus (PCR) Stool Campylobacter PCR Stool Cryptosporidium PCR Stl Sh Tox Pr E STEC PCR Stool E coli O157 PCR Stl Enterotoxigenic E PCR Stool EPEC (PCR) Stool EAEC (PCR) Stl E. histolytica PCR Stool Giardia Lamblia PCR Stl P. shigelloides PCR Stool Salmonella PCR Stool Sapovirus (PCR) Stl Shigella/EIEC PCR St Y.enterocolitica PCR Stool Vibrio (PCR) Stl Vibrio cholerae PCR Stl Norovirus GI/GII PCR Beta-(1,3)-D-Glucan 67 H B-(1,3)-D-Glucan Intrp Indeterminate A Blood Type B Positive Antibody Screen NEGATIVE Crossmatch See Detail 01/19/25 01/19/25 01/19/25 17:59 18:05 20:47 WBC RBC Hgb 7.9 L D Hct 23.6 L D MCV MCH MCHC RDW Plt Count MPV Immature Gran % (Auto) Neut % (Auto) Lymph % (Auto) [place] % (Auto) Eos % (Auto) Baso % (Auto) Lymph # (Auto) [place] # (Auto) Eos # (Auto) Baso # (Auto) Abs Immat Gran (auto) Absolute Neuts (auto) Absolute Nucleated RBC Nucleated RBC % (auto) Neutrophils % (Manual) Band Neutrophils % Lymphocytes % (Manual) Metamyelocytes % Abs Neuts (Manual) Lymphocytes # (Manual) Metamyelocytes # Smudge Cells Toxic Granulation Dohle Bodies Platelet Estimate Large Platelets Plt Morphology Comment RBC Morphology Polychromasia Hypochromasia Basophilic Stippling Macrocytosis Target Cells Tear Drop Cells Ovalocytes Stomatocytes Schistocytes VBG pH VBG pCO2 VBG pO2 VBG HCO3 VBG O2 Saturation VBG Base Excess Sodium Potassium Chloride Carbon Dioxide Anion Gap BUN Creatinine Estim Creat Clear Calc Estimated GFR POC Glucose 245 H Random Glucose Calcium Phosphorus Total Bilirubin AST ALT Alkaline Phosphatase Total Protein Albumin Stl C. cayetanensis PCR Cancelled Stool Rotavirus A PCR Cancelled Stl Adenov F 40/41 PCR Cancelled Stool Astrovirus (PCR) Cancelled Stool Campylobacter PCR Cancelled Stool Cryptosporidium PCR Cancelled Stl Sh Tox Pr E STEC PCR Cancelled Stool E coli O157 PCR Cancelled Stl Enterotoxigenic E PCR Cancelled Stool EPEC (PCR) Cancelled Stool EAEC (PCR) Cancelled Stl E. histolytica PCR Cancelled Stool Giardia Lamblia PCR Cancelled Stl P. shigelloides PCR Cancelled Stool Salmonella PCR Cancelled Stool Sapovirus (PCR) Cancelled Stl Shigella/EIEC PCR Cancelled St Y.enterocolitica PCR Cancelled Stool Vibrio (PCR) Cancelled Stl Vibrio cholerae PCR Cancelled Stl Norovirus GI/GII PCR Cancelled Beta-(1,3)-D-Glucan B-(1,3)-D-Glucan Intrp Blood Type Antibody Screen Crossmatch 01/19/25 01/20/25 01/20/25 20:48 00:00 03:56 WBC 6.9 RBC 2.30 L D Hgb 6.8 L* Hct 20.0 L* MCV 87.0 MCH 29.6 MCHC 34.0 RDW 16.8 H Plt Count 216 D MPV 10.8 Immature Gran % (Auto) Cancelled Neut % (Auto) Cancelled Lymph % (Auto) Cancelled [place] % (Auto) Cancelled Eos % (Auto) Cancelled Baso % (Auto) Cancelled Lymph # (Auto) Cancelled [place] # (Auto) Cancelled Eos # (Auto) Cancelled Baso # (Auto) Cancelled Abs Immat Gran (auto) Cancelled Absolute Neuts (auto) Cancelled Absolute Nucleated RBC 0.000 Nucleated RBC % (auto) 0.0 Neutrophils % (Manual) 76 H Band Neutrophils % 5 Lymphocytes % (Manual) 17 L Metamyelocytes % 2 Abs Neuts (Manual) 5.6 Lymphocytes # (Manual) 1.2 Metamyelocytes # 0.1 Smudge Cells PRESENT Toxic Granulation PRESENT Dohle Bodies PRESENT Platelet Estimate NORMAL Large Platelets PRESENT Plt Morphology Comment NOTED RBC Morphology NOTED Polychromasia 1+ (0-2) Hypochromasia 1+ (5-14) Basophilic Stippling 1+ (0-2) Macrocytosis 1+ (5-14) Target Cells 2+ (15-30) Tear Drop Cells 1+ (0-2) Ovalocytes 1+ (5-14) Stomatocytes 1+ (5-14) Schistocytes 1+ (0-2) VBG pH VBG pCO2 VBG pO2 VBG HCO3 VBG O2 Saturation VBG Base Excess Sodium 144 145 Potassium 3.6 3.5 Chloride 105 105 Carbon Dioxide 22 26 Anion Gap 21 H 18 BUN 41 H 47 H Creatinine 2.32 H 2.32 H Estim Creat Clear Calc 24.3 24.3 Estimated GFR 21 21 POC Glucose 314 H Random Glucose 298 H 278 H Calcium 8.0 L 7.9 L Phosphorus 3.9 Total Bilirubin 0.9 AST 33 H ALT < 6 Alkaline Phosphatase 163 H Total Protein 4.8 L Albumin 2.9 L Stl C. cayetanensis PCR Stool Rotavirus A PCR Stl Adenov F 40/41 PCR Stool Astrovirus (PCR) Stool Campylobacter PCR Stool Cryptosporidium PCR Stl Sh Tox Pr E STEC PCR Stool E coli O157 PCR Stl Enterotoxigenic E PCR Stool EPEC (PCR) Stool EAEC (PCR) Stl E. histolytica PCR Stool Giardia Lamblia PCR Stl P. shigelloides PCR Stool Salmonella PCR Stool Sapovirus (PCR) Stl Shigella/EIEC PCR St Y.enterocolitica PCR Stool Vibrio (PCR) Stl Vibrio cholerae PCR Stl Norovirus GI/GII PCR Beta-(1,3)-D-Glucan B-(1,3)-D-Glucan Intrp Blood Type Antibody Screen Crossmatch 01/20/25 01/20/25 04:03 05:43 WBC RBC Hgb Hct MCV MCH MCHC RDW Plt Count MPV Immature Gran % (Auto) Neut % (Auto) Lymph % (Auto) [place] % (Auto) Eos % (Auto) Baso % (Auto) Lymph # (Auto) [place] # (Auto) Eos # (Auto) Baso # (Auto) Abs Immat Gran (auto) Absolute Neuts (auto) Absolute Nucleated RBC Nucleated RBC % (auto) Neutrophils % (Manual) Band Neutrophils % Lymphocytes % (Manual) Metamyelocytes % Abs Neuts (Manual) Lymphocytes # (Manual) Metamyelocytes # Smudge Cells Toxic Granulation Dohle Bodies Platelet Estimate Large Platelets Plt Morphology Comment RBC Morphology Polychromasia Hypochromasia Basophilic Stippling Macrocytosis Target Cells Tear Drop Cells Ovalocytes Stomatocytes Schistocytes VBG pH 7.56 H VBG pCO2 35 VBG pO2 44 VBG HCO3 31 H VBG O2 Saturation 75.0 VBG Base Excess 9.2 Sodium Potassium Chloride Carbon Dioxide Anion Gap BUN Creatinine Estim Creat Clear Calc Estimated GFR POC Glucose 303 H Random Glucose Calcium Phosphorus Total Bilirubin AST ALT Alkaline Phosphatase Total Protein Albumin Stl C. cayetanensis PCR Stool Rotavirus A PCR Stl Adenov F 40/41 PCR Stool Astrovirus (PCR) Stool Campylobacter PCR Stool Cryptosporidium PCR Stl Sh Tox Pr E STEC PCR Stool E coli O157 PCR Stl Enterotoxigenic E PCR Stool EPEC (PCR) Stool EAEC (PCR) Stl E. histolytica PCR Stool Giardia Lamblia PCR Stl P. shigelloides PCR Stool Salmonella PCR Stool Sapovirus (PCR) Stl Shigella/EIEC PCR St Y.enterocolitica PCR Stool Vibrio (PCR) Stl Vibrio cholerae PCR Stl Norovirus GI/GII PCR Beta-(1,3)-D-Glucan B-(1,3)-D-Glucan Intrp Blood Type Antibody Screen Crossmatch Microbiology Microbiology Results: Microbiology 01/17/25 15:09 Bronch Lll Fungal Identification - Preliminary Culture in progress. 01/17/25 15:09 Bronch Lll Direct Acid Fast Bacilli Smear - Final 01/17/25 15:09 Bronch Lll Gram Stain - Final 01/17/25 15:09 Bronch Lll - Final No growth after 2 days 01/17/25 15:09 Bronch Lll Routine Culture - Final 01/17/25 15:09 Bronch Rll Gram Stain - Final 01/17/25 15:09 Bronch Rll - Final No growth after 2 days 01/16/25 07:36 Aspirate - Suctioned Gram Stain - Final 01/16/25 07:36 Aspirate - Suctioned Sputum Culture - Final 01/15/25 16:42 Blood - Venous Blood Culture - Preliminary No growth after 48 hours. 01/15/25 16:37 Blood - Venous Blood Culture - Preliminary No growth after 48 hours. Progress Note: A&P Assessment and plan (1) Poorly controlled diabetes mellitus: Status: Acute (2) Acute hypoxic respiratory failure: Status: Acute (3) Encephalopathy acute: Status: Acute Plan Assessment: 59-year-old lady with underlying CKD and diabetes mellitus admitted with acute hypoxic respiratory failure with unclear etiology but good response to empiric systemic glucocorticoids Plan: Neuro: Encephalopathy of unclear etiology, will obtain MRI brain for further evaluation. Cardiac: No acute issues. Pulmonary: Acute hypoxic respiratory failure requiring ventilatory support, continue to titrate off as tolerated. Good response to empiric systemic glucocorticoids, continue to taper off. Renal: No acute issues. Endo: No acute issues. GI: No acute issues. ID: Cultures negative to date, will monitor off antibiotics. Heme/Onc: No acute issues. Psych: No acute issues. Miscellaneous: No acute issues. Prophylaxis: Pneumatic compression, ppi Diet: Tube feeds Critical care time spent: 60 minutes Quality Stroke Does the patient have a stroke diagnosis?: No VTE Prior VTE?: No VTE Risk Level:: Medical - moderate - high VTE Device Contraindication: N/A - Device Ordered VTE Drug Contraindication: N/A - Med Ordered
[2025-01-20] MEDS: dexmedeTOMIDine HCL/NS 400 MCG/100 ML PLAST..BAG 9.08 MCG IVCONT ×2 (11:18→20:04)
[2025-01-20 11:21] LABS: Glucose, Whole Blood 275 mg/dL (60-115)
[2025-01-20 11:38] LABS: Hematocrit 23.2 % (37.0-47.0); Hemoglobin 8.2 g/dl (12.0-16.0)
[2025-01-20] MEDS: Midazolam HCl 2 MG/2 ML VIAL IVPUSH (12:08)
--- NOTE | 2025-01-20 14:38 | MHC.CM.PN ---
Pt remains intubated in ICU: Received one unit of PRBC for ? GIB: Plan for today is to wean off sedation in anticipation of extubation. If no neurological improvement, an MRI will be considered per MD. Original d/c plan was to return to home w/family support: CM to follow
[2025-01-20 17:27] LABS: Glucose, Whole Blood 277 mg/dL (60-115)
[2025-01-20 21:46] LABS: Mean Corpuscular HGB Conc 35.8 g/dl (31.0-35.0); Mean Corpuscular Hemoglobin 30.9 pg (27.0-33.0); Mean Corpuscular Volume 86.4 fL (80.0-98.0); Mean Platelet Volume 11.9 fL (9.4-12.3); Platelet Count 192 X10*3/uL (160-400); Red Cell Distribution Width 15.8 % (11.0-16.0)
[2025-01-20 21:49] LABS: Hemoglobin 6.8 g/dl (12.0-16.0)
[2025-01-20] MEDS: Acetaminophen 1,000 MG/100 ML PIGGYBACK 400 MG IV (22:04)
[2025-01-20 22:45] LABS: Band Neutrophils Percent 13 % (3-5); Lymphocytes Absolute Manual 1.1 X10*3/uL (1.2-4.9); Lymphocytes Percent Manual 12 % (20-40); Monocytes Absolute Manual 0.3 X10*3/uL (0.1-1.2); Monocytes Percent Manual 3 % (2-11); Neutrophils Absolute Manual 7.7 X10*3/uL (2.0-8.3); Neutrophils Percent Manual 72 % (45-73)
[2025-01-20 22:47] LABS: RBC Morphology NOTED
[2025-01-20 22:48] LABS: Large Platelet PRESENT; Macrocytosis 2+ (15-30) /OIF; Microcytosis 2+ (15-30) /OIF; Platelet Estimate NORMAL (NORMAL); Platelet Morphology Comment NOTED; Schistocytes 1+ (0-2) /OIF; Stomatocytes 1+ (5-14) /OIF; Target Cells 2+ (15-30) /OIF
[2025-01-20 22:49] LABS: Hypersegmented Neutrophils PRESENT; Toxic Granulation PRESENT
[2025-01-20 22:50] LABS: Toxic Vacuolation PRESENT
[2025-01-20 23:51] LABS: Glucose, Whole Blood 287 mg/dL (60-115)
[2025-01-21] VITALS (56 sets, daily range): BP systolic 79–183; BP diastolic 44–95; PULSE 71–162; RESP 18–27; TEMP 34.6–38.8; O2SAT 90–100; BMI 25.3
[2025-01-21] MEDS: Insulin Lispro 100 UNIT/ML 3 ML VIAL SUBCUT ×5 (00:28→23:55)
[2025-01-21] MEDS: 0.9 % Sodium Chloride Flush 3 ML SYRINGE IVFLUSH ×4 (00:29→23:42)
[2025-01-21 02:23] LABS: Hematocrit 21.2 % (37.0-47.0); Hemoglobin 7.7 g/dl (12.0-16.0); Mean Corpuscular HGB Conc 36.3 g/dl (31.0-35.0); Mean Corpuscular Hemoglobin 31.4 pg (27.0-33.0); Mean Corpuscular Volume 86.5 fL (80.0-98.0); Mean Platelet Volume 11.6 fL (9.4-12.3); Platelet Count 176 X10*3/uL (160-400); Red Blood Count 2.45 X10*6/uL (4.20-5.50); Red Cell Distribution Width 14.6 % (11.0-16.0); White Blood Count 12.1 X10*3/uL (4.8-10.8)
[2025-01-21] MEDS: Albumin Human 25 % 50 ML 100 ML IV ×4 (03:00→04:35)
[2025-01-21] MEDS: Norepinephrine Bitartrate/D5W 8 MG/250 ML PLAST..BAG 5.91 MG IVCONT ×2 (03:05→19:56)
[2025-01-21 04:30] LABS: Lactic Acid 3.2 mmol/L (0.5-2.0)
[2025-01-21] MEDS: Albuterol/Iprat 2.5/0.5MG 3 ML AMPUL.NEB INHALE ×3 (05:11→23:40)
[2025-01-21 05:27] LABS: Venous Blood Gas Refer to POC result
[2025-01-21 05:30] LABS: Mean Corpuscular HGB Conc 35.5 g/dl (31.0-35.0); Mean Corpuscular Hemoglobin 30.9 pg (27.0-33.0); Mean Corpuscular Volume 87.1 fL (80.0-98.0); Mean Platelet Volume 11.4 fL (9.4-12.3); Platelet Count 152 X10*3/uL (160-400); Red Blood Count 1.94 X10*6/uL (4.20-5.50); Red Cell Distribution Width 14.8 % (11.0-16.0); White Blood Count 8.9 X10*3/uL (4.8-10.8)
[2025-01-21] MEDS: Piperacillin Sodium/Tazobactam 3.375 GM in 0.9 % Sodium Chloride 50 ML IV (05:30)
[2025-01-21 05:32] LABS: Glucose, Whole Blood 208 mg/dL (60-115)
[2025-01-21 05:33] LABS: VBG Base Excess 13.2 mmol/L; VBG HCO3 36 mmol/L (22-26); VBG pCO2 39 mmHg; VBG pH 7.56 (7.32-7.43); VBG pO2 68 mmHg
[2025-01-21 05:35] LABS: Hematocrit 16.9 % (37.0-47.0)
[2025-01-21] MEDS: Pantoprazole Sodium 40 MG/10 ML VIAL IVPUSH ×2 (05:35→17:23)
[2025-01-21] MEDS: Furosemide 100 MG/10 ML VIAL 80 MG IVPUSH (05:43)
[2025-01-21 05:54] LABS: Alanine Aminotransferase 17 U/L (0-31); Albumin Level 3.3 g/dL (3.5-5.0); Alkaline Phosphatase 140 U/L (39-117); Anion Gap 18 (12-20); Aspartate Amino Transferase 38 U/L (5-31); Bilirubin Total 0.7 mg/dL (0.0-1.0); Blood Urea Nitrogen 68 mg/dL (9-16); Calcium 7.8 mg/dL (8.4-10.2); Carbon Dioxide 30 mmol/L (22-29); Chloride 105 mmol/L (96-108); Creatinine Clr Calc Pharmacy 26.4; Estimated Glomerular Filt Rate 24; Glucose Random 240 mg/dL (60-115); Magnesium 2.2 mg/dL (1.6-2.6); Phosphorus 3.9 mg/dL (2.7-4.5); Potassium 2.6 mmol/L (3.3-5.1); Sodium 150 mmol/L (135-145); Total Protein 4.7 g/dL (6.5-8.0)
[2025-01-21 06:06] LABS: Reflex Lactate? Lactic Acid Added
[2025-01-21] MEDS: Potassium Chloride/H20 40 MEQ/100 ML PIGGYBACK 100 MEQ IV ×3 (06:08→09:17)
[2025-01-21 06:14] LABS: Band Neutrophils Percent 9 % (3-5); Giant Platelet PRESENT; Large Platelet PRESENT; Lymphocytes Absolute Manual 1.5 X10*3/uL (1.2-4.9); Lymphocytes Percent Manual 17 % (20-40); Microcytosis 1+ (5-14) /OIF; Neutrophils Absolute Manual 7.4 X10*3/uL (2.0-8.3); Neutrophils Percent Manual 74 % (45-73); Platelet Estimate NORMAL (NORMAL); Platelet Morphology Comment NOTED; RBC Morphology NOTED
[2025-01-21 06:15] LABS: Basophilic Stippling 1+ (0-2) /OIF; Hypochromasia 2+ (15-30) /OIF; Ovalocytes 1+ (5-14) /OIF; Stomatocytes 1+ (5-14) /OIF; Target Cells 2+ (15-30) /OIF
[2025-01-21 06:16] LABS: Dohle Bodies PRESENT; Smudge Cells PRESENT; Toxic Granulation PRESENT; Toxic Vacuolation PRESENT
[2025-01-21 06:18] LABS: Immunoglobulin E 193 kU/L (<OR=114)
--- NOTE | 2025-01-21 07:10 | PC.NURSE ---
Upon initial assessment at approximately 1900- patient intubated and sedated, on Precedex gtt- titrated per MAR. On ACVC+ settings, SpO2 >95%. LS with inspiratory rhonchi throughout and dim bases. NSR on tele, HR 80-90s. SBP 120-130s. Tmax 102.4, [employer] notified- ice applied to patient and one time dose IV Tylenol administered per MAR. Carrillo catheter in place. OGT in place, Glucerna infusing at goal rate of 35mls/hr. Abd round, soft, with positive bowel sounds. Pt incontinent of moderate amount of liquid dark maroon stool, [employer] notified- Type & Screen and repeat CBC ordered and obtained, [employer] aware of critical results. 1u RBCs administered per TAR, no s/s of transfusion reaction. Approx. 0100- pt incontinent of large amount of liquid maroon stool, [employer] notified- Repeat CBC ordered and obtained. Okay to place fecal management system per [employer]. Approx. 0300- SBP 70-80s, HR 90s, [employer] notified- Albumin ordered and administered per MAR, Levophed gtt started and titrated per MAR. Blood Cultures and Lactic Acid obtained- see EMR. IV Zosyn ordered and administered per MAR. 0500 repeat labs with critical results, [employer] notified- 2u RBCs ordered and infusing per TAR. 40meq IV Potassium infusing per MAR. Patient repositioned in bed Q2H. Bed locked in lowest position. See EMR/flowsheet for further details. Report given to onckoko RN at 0700.
[2025-01-21] MEDS: Nystatin Powder 15 GM BOTTLE 1 APPL TOPICAL ×3 (08:12→20:14)
[2025-01-21] MEDS: Chlorhexidine Gluc Oral Rinse 15 ML MOUTHWASH BUCCAL ×3 (08:12→20:14)
--- NOTE | 2025-01-21 09:54 | MHC.CLN ---
F/U PT REMAINS INTUBATED AND SEDATED DISCUSSED AT ROUNDS WITH MD IRVIN ON HOLD R/T BLOOD IN STOOL PT IS NPO TODAY FOLLOWING WITH TEAM
[2025-01-21] MEDS: dexmedeTOMIDine HCL/NS 400 MCG/100 ML PLAST..BAG 12.71 MCG IVCONT (10:10)
[2025-01-21] MEDS: Metoprolol Tartrate 5 MG/5 ML VIAL IVPUSH (10:40)
[2025-01-21] MEDS: hydrALAZINE HCl 20 MG/ML VIAL 10 MG IVPUSH (11:02)
--- NOTE | 2025-01-21 11:14 | P.PNCC_ITS ---
Subjective Subjective Date of Service: 01/21/25 Interval History: 59-year-old lady with underlying history of CKD stage III, hypertension, diabetes mellitus, orthostatic hypotension, recurrent UTIs, chronic diarrhea admitted on 01/15/2025 with dyspnea and hypoxia initially requiring BiPAP support. Laboratory studies significant for metabolic acidosis with elevated BNP. Patient wants started on empiric antibiotics and colloidal support. Hospital course significant for progressive respiratory distress requiring intubation 01/16/2025, occult acute blood loss anemia. Overnight with development of moy GI bleed and acute blood loss anemia, now status post 2 units of packed red blood cells, briefly requiring pressor support. Critical Care Time (minutes): 60 Physical Exam 2 Vital Signs: Vital Signs: Last Vital Signs Temp 100.2 F 01/21/25 09:28 Pulse 72 01/21/25 10:00 Resp 21 H 01/21/25 10:00 BP 171/93 H 01/21/25 10:00 Pulse Ox 100 01/21/25 10:00 O2 Del Method Mechanical Ventil ation 01/21/25 10:00 O2 Flow Rate 01/20/25 22:00 FiO2 100 01/21/25 10:00 BMI result Body Mass Index 25.3 Const: General: no acute distress and other (Sedated on ventilatory support) Eyes: Sclerae: sclerae normal EOM: EOMs intact bilaterally Neck: Neck: Yes no lymphadenopathy, Yes trachea midline and Yes supple Resp: Auscultation: clear to auscultation bilaterally Cardio: Rate: regular rate Rhythm: regular rhythm Heart sounds: no gallops, no murmurs and no rubs GI: Palpation (GI): Soft to palpation and Other GI palpation findings present ( Nontender) Auscultation: normal bowel sounds Extrem: General: Yes no pedal edema, No clubbing and No cyanosis Objective Data Labs 01/21/25 05:09 01/21/25 05:09 Labs: Laboratory Results - last 24 hr 01/20/25 01/20/25 01/20/25 11:09 11:31 17:23 WBC RBC Hgb 8.2 L D Hct 23.2 L MCV MCH MCHC RDW Plt Count MPV Immature Gran % (Auto) Neut % (Auto) Lymph % (Auto) [place] % (Auto) Eos % (Auto) Baso % (Auto) Lymph # (Auto) [place] # (Auto) Eos # (Auto) Baso # (Auto) Abs Immat Gran (auto) Absolute Neuts (auto) Absolute Nucleated RBC Nucleated RBC % (auto) Neutrophils % (Manual) Band Neutrophils % Lymphocytes % (Manual) Monocytes % (Manual) Abs Neuts (Manual) Lymphocytes # (Manual) Monocytes # (Manual) Hypersegmented Neuts Smudge Cells Toxic Granulation Toxic Vacuolation Dohle Bodies Platelet Estimate Large Platelets Giant Platelets Plt Morphology Comment RBC Morphology Hypochromasia Basophilic Stippling Microcytosis Macrocytosis Target Cells Ovalocytes Stomatocytes Schistocytes VBG pH VBG pCO2 VBG pO2 VBG HCO3 VBG O2 Saturation VBG Base Excess Sodium Potassium Chloride Carbon Dioxide Anion Gap BUN Creatinine Estim Creat Clear Calc Estimated GFR POC Glucose 275 H 277 H Random Glucose Lactic Acid Calcium Phosphorus Magnesium Total Bilirubin AST ALT Alkaline Phosphatase Total Protein Albumin IgE 193 H Blood Type Antibody Screen Crossmatch 01/20/25 01/20/25 01/21/25 21:21 23:47 02:18 WBC 9.0 12.1 H RBC 2.20 L 2.45 L Hgb 6.8 L* 7.7 L Hct 19.0 L* 21.2 L MCV 86.4 86.5 MCH 30.9 31.4 MCHC 35.8 H 36.3 H RDW 15.8 14.6 Plt Count 192 176 MPV 11.9 11.6 Immature Gran % (Auto) Cancelled Neut % (Auto) Cancelled Lymph % (Auto) Cancelled [place] % (Auto) Cancelled Eos % (Auto) Cancelled Baso % (Auto) Cancelled Lymph # (Auto) Cancelled [place] # (Auto) Cancelled Eos # (Auto) Cancelled Baso # (Auto) Cancelled Abs Immat Gran (auto) Cancelled Absolute Neuts (auto) Cancelled Absolute Nucleated RBC 0.000 0.000 Nucleated RBC % (auto) 0.0 0.0 Neutrophils % (Manual) 72 Band Neutrophils % 13 H Lymphocytes % (Manual) 12 L Monocytes % (Manual) 3 Abs Neuts (Manual) 7.7 Lymphocytes # (Manual) 1.1 L Monocytes # (Manual) 0.3 Hypersegmented Neuts PRESENT Smudge Cells Toxic Granulation PRESENT Toxic Vacuolation PRESENT Dohle Bodies Platelet Estimate NORMAL Large Platelets PRESENT Giant Platelets Plt Morphology Comment NOTED RBC Morphology NOTED Hypochromasia Basophilic Stippling Microcytosis 2+ (15-30) Macrocytosis 2+ (15-30) Target Cells 2+ (15-30) Ovalocytes Stomatocytes 1+ (5-14) Schistocytes 1+ (0-2) VBG pH VBG pCO2 VBG pO2 VBG HCO3 VBG O2 Saturation VBG Base Excess Sodium Potassium Chloride Carbon Dioxide Anion Gap BUN Creatinine Estim Creat Clear Calc Estimated GFR POC Glucose 287 H Random Glucose Lactic Acid Calcium Phosphorus Magnesium Total Bilirubin AST ALT Alkaline Phosphatase Total Protein Albumin IgE Blood Type B Positive Antibody Screen NEGATIVE Crossmatch See Detail 01/21/25 01/21/25 01/21/25 04:02 05:09 05:28 WBC 8.9 RBC 1.94 L D Hgb 6.0 L* D Hct 16.9 L* D MCV 87.1 MCH 30.9 MCHC 35.5 H RDW 14.8 Plt Count 152 L MPV 11.4 Immature Gran % (Auto) Cancelled Neut % (Auto) Cancelled Lymph % (Auto) Cancelled [place] % (Auto) Cancelled Eos % (Auto) Cancelled Baso % (Auto) Cancelled Lymph # (Auto) Cancelled [place] # (Auto) Cancelled Eos # (Auto) Cancelled Baso # (Auto) Cancelled Abs Immat Gran (auto) Cancelled Absolute Neuts (auto) Cancelled Absolute Nucleated RBC 0.000 Nucleated RBC % (auto) 0.0 Neutrophils % (Manual) 74 H Band Neutrophils % 9 H Lymphocytes % (Manual) 17 L Monocytes % (Manual) Abs Neuts (Manual) 7.4 Lymphocytes # (Manual) 1.5 Monocytes # (Manual) Hypersegmented Neuts Smudge Cells PRESENT Toxic Granulation PRESENT Toxic Vacuolation PRESENT Dohle Bodies PRESENT Platelet Estimate NORMAL Large Platelets PRESENT Giant Platelets PRESENT Plt Morphology Comment NOTED RBC Morphology NOTED Hypochromasia 2+ (15-30) Basophilic Stippling 1+ (0-2) Microcytosis 1+ (5-14) Macrocytosis Target Cells 2+ (15-30) Ovalocytes 1+ (5-14) Stomatocytes 1+ (5-14) Schistocytes VBG pH VBG pCO2 VBG pO2 VBG HCO3 VBG O2 Saturation VBG Base Excess Sodium 150 H Potassium 2.6 L* D Chloride 105 Carbon Dioxide 30 H Anion Gap 18 BUN 68 H Creatinine 2.09 H Estim Creat Clear Calc 26.4 Estimated GFR 24 POC Glucose 208 H Random Glucose 240 H Lactic Acid 3.2 H* Calcium 7.8 L Phosphorus 3.9 Magnesium 2.2 Total Bilirubin 0.7 AST 38 H ALT 17 Alkaline Phosphatase 140 H Total Protein 4.7 L Albumin 3.3 L IgE Blood Type Antibody Screen Crossmatch 01/21/25 05:29 WBC RBC Hgb Hct MCV MCH MCHC RDW Plt Count MPV Immature Gran % (Auto) Neut % (Auto) Lymph % (Auto) [place] % (Auto) Eos % (Auto) Baso % (Auto) Lymph # (Auto) [place] # (Auto) Eos # (Auto) Baso # (Auto) Abs Immat Gran (auto) Absolute Neuts (auto) Absolute Nucleated RBC Nucleated RBC % (auto) Neutrophils % (Manual) Band Neutrophils % Lymphocytes % (Manual) Monocytes % (Manual) Abs Neuts (Manual) Lymphocytes # (Manual) Monocytes # (Manual) Hypersegmented Neuts Smudge Cells Toxic Granulation Toxic Vacuolation Dohle Bodies Platelet Estimate Large Platelets Giant Platelets Plt Morphology Comment RBC Morphology Hypochromasia Basophilic Stippling Microcytosis Macrocytosis Target Cells Ovalocytes Stomatocytes Schistocytes VBG pH 7.56 H VBG pCO2 39 VBG pO2 68 VBG HCO3 36 H VBG O2 Saturation TNP VBG Base Excess 13.2 Sodium Potassium Chloride Carbon Dioxide Anion Gap BUN Creatinine Estim Creat Clear Calc Estimated GFR POC Glucose Random Glucose Lactic Acid Calcium Phosphorus Magnesium Total Bilirubin AST ALT Alkaline Phosphatase Total Protein Albumin IgE Blood Type Antibody Screen Crossmatch Microbiology Microbiology Results: Microbiology 01/17/25 15:09 Bronch Lll Fungal Identification - Preliminary Culture in progress. 01/15/25 16:42 Blood - Venous Blood Culture - Final No growth after 5 days. 01/15/25 16:37 Blood - Venous Blood Culture - Final No growth after 5 days. 01/17/25 15:09 Bronch Lll Direct Acid Fast Bacilli Smear - Final 01/17/25 15:09 Bronch Lll Gram Stain - Final 01/17/25 15:09 Bronch Lll - Final No growth after 2 days 01/17/25 15:09 Bronch Lll Routine Culture - Final 01/17/25 15:09 Bronch Rll Gram Stain - Final 01/17/25 15:09 Bronch Rll - Final No growth after 2 days 01/16/25 07:36 Aspirate - Suctioned Gram Stain - Final 01/16/25 07:36 Aspirate - Suctioned Sputum Culture - Final Progress Note: A&P Assessment and plan (1) GI bleed: Status: Acute (2) Acute blood loss anemia: Status: Acute (3) Hemorrhagic shock: Status: Acute (4) CVA (cerebral vascular accident): Status: Acute (5) Acute hypoxic respiratory failure: Status: Acute Plan Assessment: 59-year-old lady with underlying CKD and diabetes mellitus admitted with acute hypoxic respiratory failure with unclear etiology but good response to empiric systemic glucocorticoids Plan: Neuro: Encephalopathy of unclear etiology, improving. MRI brain with small acute occipital infarct in stigmata of prior CVAs.. Cardiac: Hemorrhagic shock, resolved, titrated off pressor support. Pulmonary: Acute hypoxic respiratory failure requiring ventilatory support, continue to titrate off as tolerated. Good response to empiric systemic glucocorticoids, now discontinued secondary to acute GI bleed. Renal: Acute renal failure, improving. Continue to monitor renal indices and urine output. Endo: No acute issues. GI: Acute GI bleed. Tagged red cell scan is pending. May require embolization. ID: Cultures negative to date, will monitor off antibiotics. Heme/Onc: Acute blood loss anemia secondary to GI bleed. Status post 2 units of packed red blood cells. Continue to monitor hemoglobin level. Transfusion threshold hemoglobin of 7. Psych: No acute issues. Miscellaneous: No acute issues. Prophylaxis: Pneumatic compression, ppi Diet: NPO Critical care time spent: 60 minutes Quality Stroke Does the patient have a stroke diagnosis?: No VTE Prior VTE?: No VTE Risk Level:: Medical - moderate - high VTE Device Contraindication: N/A - Device Ordered VTE Drug Contraindication: N/A - Med Ordered
[2025-01-21] MEDS: Midazolam HCl 2 MG/2 ML VIAL IVPUSH (11:18)
--- NOTE | 2025-01-21 11:43 | P.CDIM_ITS ---
PROVIDER RESPONSE TEXT: To clarify, the appropriate diagnosis supported by the clinical indicators: Hypernatremia: resolved QUERY TEXT: PHYSICIAN'S DOCUMENTATION REQUEST Date of Query: 01/21/2025 11:29 AM EDT Patient Name: Rita Page Admit Date: 01/15/2025 Dear Bucky Ocasio MD, A review of the medical record indicates additional documentation may be needed. Please review below and update the documentation accordingly. Clinical Indicators: LABS: sodium 150 H Based on the above, is there a diagnosis that correlates with these lab findings: Hypernatremia resolved, possible, suspected, cannot rule out etc. Labs indicate a diagnosis of (please specify) Other (explain) Clinically unable to determine (explain) Thank you, Eliane Villalobos, CCS, CDIS Use of terms such as suspected, likely, concern for, or probable (associated with a specific diagnosi s that is being evaluated, monitored, or treated as if it exists) are acceptable and can be coded in the inpatient se tting, when documented at the time of discharge. Please use your independent medical judgment in providing your response. THIS QUERY IS PART OF THE PERMANENT MEDICAL RECORD
--- NOTE | 2025-01-21 11:43 | P.CDIM_ITS ---
PROVIDER RESPONSE TEXT: To clarify, the appropriate diagnosis supported by the clinical indicators: Hypokalemia: resolved QUERY TEXT: PHYSICIAN'S DOCUMENTATION REQUEST Date of Query: 01/21/2025 11:31 AM EDT Patient Name: Rita Page Admit Date: 01/15/2025 Dear Bucky Ocasio MD, A review of the medical record indicates additional documentation may be needed. Please review below and update the documentation accordingly. Clinical Indicators: LABS: potassium 2.6 L IV potassium chloride Based on the above, is there a diagnosis that correlates with these lab findings: Hypokalemia possible, suspected, probable etc. Labs indicate a diagnosis of (please specify) Other (explain) Clinically unable to determine (explain) Thank you, Eliane Villalobos, CCS, CDIS Use of terms such as suspected, likely, concern for, or probable (associated with a specific diagnosi s that is being evaluated, monitored, or treated as if it exists) are acceptable and can be coded in the inpatient se tting, when documented at the time of discharge. Please use your independent medical judgment in providing your response. THIS QUERY IS PART OF THE PERMANENT MEDICAL RECORD
[2025-01-21] MEDS: niCARdipine HCL 25 MG in 0.9 % Sodium Chloride 240 ML 50 MG IVCONT (12:33)
[2025-01-21 12:37] LABS: Glucose, Whole Blood 276 mg/dL (60-115)
[2025-01-21 12:49] LABS: Hematocrit 26.8 % (37.0-47.0); Hemoglobin 9.5 g/dl (12.0-16.0); Mean Corpuscular HGB Conc 35.4 g/dl (31.0-35.0); Mean Corpuscular Hemoglobin 28.9 pg (27.0-33.0); Mean Corpuscular Volume 81.5 fL (80.0-98.0); Platelet Count 159 X10*3/uL (160-400); Red Blood Count 3.29 X10*6/uL (4.20-5.50); Red Cell Distribution Width 20.4 % (11.0-16.0)
[2025-01-21 12:51] LABS: WBC ABN SCTR FOR CBC 1
[2025-01-21 13:12] LABS: Blood Urea Nitrogen 67 mg/dL (9-16); Calcium 7.8 mg/dL (8.4-10.2); Creatinine Clr Calc Pharmacy 31.3; Estimated Glomerular Filt Rate 30; Glucose Random 284 mg/dL (60-115)
[2025-01-21] MEDS: propofoL 1,000 MG/100 ML VIAL 14.6 MG IVCONT ×2 (13:13→19:48)
--- NOTE | 2025-01-21 13:18 | MHC.CM.PN ---
Pt continues care in ICU: on pressors and intubated. Received 2 units PRBC's in response to critical H&H r/t GIB. Pt's original d/c plan was for a return to home w/family support: Will reassess once pt is extubated and can complete a formal PT assessment. CM to follow
[2025-01-21 13:20] LABS: Anion Gap 20 (12-20); Carbon Dioxide 29 mmol/L (22-29); Chloride 105 mmol/L (96-108); Potassium 3.7 mmol/L (3.3-5.1); Sodium 150 mmol/L (135-145)
[2025-01-21 14:08] LABS: Band Neutrophils Percent 3 % (3-5); Lymphocytes Percent Manual 13 % (20-40); Metamyelocytes Percent 1 %; Monocytes Percent Manual 4 % (2-11); Neutrophils Percent Manual 79 % (45-73)
[2025-01-21 14:09] LABS: Dohle Bodies PRESENT
[2025-01-21 14:11] LABS: Burr Cells 1+ (0-2) /OIF; Hypochromasia 1+ (5-14) /OIF; Microcytosis 1+ (5-14) /OIF; Platelet Estimate NORMAL (NORMAL); RBC Morphology NOTED; Schistocytes 1+ (0-2) /OIF
[2025-01-21 14:12] LABS: Platelet Morphology Comment NORMAL
[2025-01-21 14:45] LABS: Lymphocytes Absolute Manual 1.3 X10*3/uL (1.2-4.9); Metamyelocytes Absolute 0.1 X10*3/uL; Monocytes Absolute Manual 0.4 X10*3/uL (0.1-1.2); Neutrophils Absolute Manual 8.3 X10*3/uL (2.0-8.3); White Blood Count 10.1 X10*3/uL (4.8-10.8)
[2025-01-21 17:25] LABS: Glucose, Whole Blood 174 mg/dL (60-115)
[2025-01-21 18:23] LABS: Hematocrit 25.5 % (37.0-47.0); Hemoglobin 9.1 g/dl (12.0-16.0); Mean Corpuscular HGB Conc 35.7 g/dl (31.0-35.0); Mean Corpuscular Hemoglobin 28.8 pg (27.0-33.0); Mean Corpuscular Volume 80.7 fL (80.0-98.0); Platelet Count 167 X10*3/uL (160-400); Red Blood Count 3.16 X10*6/uL (4.20-5.50); Red Cell Distribution Width 20.9 % (11.0-16.0); White Blood Count 13.2 X10*3/uL (4.8-10.8)
[2025-01-21 19:04] LABS: Atypical Lymph Absolute Manual 0.1 x10*3/uL; Atypical Lymphs Percent Manual 1 % (0-6); Band Neutrophils Percent 20 % (3-5); Lymphocytes Absolute Manual 0.8 X10*3/uL (1.2-4.9); Lymphocytes Percent Manual 6 % (20-40); Microcytosis 2+ (15-30) /OIF; Monocytes Absolute Manual 0.3 X10*3/uL (0.1-1.2); Monocytes Percent Manual 2 % (2-11); Neutrophils Percent Manual 71 % (45-73); Platelet Estimate NORMAL (NORMAL); Platelet Morphology Comment NORMAL; RBC Morphology NOTED
[2025-01-21 19:05] LABS: Burr Cells 1+ (0-2) /OIF; Schistocytes 1+ (0-2) /OIF; Target Cells 1+ (5-14) /OIF
[2025-01-21 19:06] LABS: Dohle Bodies PRESENT; Smudge Cells PRESENT; Toxic Granulation PRESENT; Toxic Vacuolation PRESENT
[2025-01-21 23:58] LABS: Glucose, Whole Blood 214 mg/dL (60-115)
[2025-01-22] VITALS (52 sets, daily range): BP systolic 89–171; BP diastolic 43–79; PULSE 82–111; RESP 18–118; TEMP 34.8–38.4; O2SAT 91–100; BMI 26.2
[2025-01-22 00:34] LABS: Hematocrit 23.7 % (37.0-47.0); Hemoglobin 8.4 g/dl (12.0-16.0); Mean Corpuscular HGB Conc 35.4 g/dl (31.0-35.0); Mean Corpuscular Hemoglobin 29.1 pg (27.0-33.0); Mean Platelet Volume 11.3 fL (9.4-12.3); Platelet Count 167 X10*3/uL (160-400); Red Blood Count 2.89 X10*6/uL (4.20-5.50); Red Cell Distribution Width 21.3 % (11.0-16.0); White Blood Count 11.3 X10*3/uL (4.8-10.8)
[2025-01-22] MEDS: propofoL 1,000 MG/100 ML VIAL 14.6 MG IVCONT ×2 (02:26→08:52)
[2025-01-22] MEDS: Albuterol/Iprat 2.5/0.5MG 3 ML AMPUL.NEB INHALE ×4 (04:45→23:32)
[2025-01-22 05:24] LABS: VBG Base Excess 7.8 mmol/L; VBG HCO3 30 mmol/L (22-26); VBG pCO2 36 mmHg; VBG pH 7.53 (7.32-7.43); VBG pO2 47 mmHg
[2025-01-22 05:43] LABS: Hematocrit 22.5 % (37.0-47.0); Hemoglobin 7.9 g/dl (12.0-16.0); Mean Corpuscular HGB Conc 35.1 g/dl (31.0-35.0); Mean Corpuscular Hemoglobin 28.8 pg (27.0-33.0); Mean Corpuscular Volume 82.1 fL (80.0-98.0); Mean Platelet Volume 11.8 fL (9.4-12.3); Platelet Count 189 X10*3/uL (160-400); Red Blood Count 2.74 X10*6/uL (4.20-5.50); Red Cell Distribution Width 21.7 % (11.0-16.0); White Blood Count 11.5 X10*3/uL (4.8-10.8)
[2025-01-22 05:50] LABS: INTERNATIONAL NORM RATIO 1.1 (0.9-1.1)
[2025-01-22 05:53] LABS: Partial Thromboplastin Time 28.4 SEC (26.0-36.8)
[2025-01-22 06:07] LABS: Band Neutrophils Percent 10 % (3-5); Large Platelet PRESENT; Lymphocytes Absolute Manual 1.6 X10*3/uL (1.2-4.9); Lymphocytes Percent Manual 14 % (20-40); Metamyelocytes Absolute 0.1 X10*3/uL; Metamyelocytes Percent 1 %; Microcytosis 2+ (15-30) /OIF; Monocytes Absolute Manual 0.2 X10*3/uL (0.1-1.2); Monocytes Percent Manual 2 % (2-11); Neutrophils Absolute Manual 9.5 X10*3/uL (2.0-8.3); Neutrophils Percent Manual 73 % (45-73); Platelet Estimate NORMAL (NORMAL); Platelet Morphology Comment NOTED; RBC Morphology NOTED
[2025-01-22 06:08] LABS: Acanthocytes 2+ (3-5) /OIF; Ovalocytes 1+ (5-14) /OIF; Stomatocytes 1+ (5-14) /OIF
[2025-01-22 06:09] LABS: Basophilic Stippling 1+ (0-2) /OIF; Burr Cells 2+ (3-5) /OIF; Dohle Bodies PRESENT; Hypochromasia 3+ (>30) /OIF; Polychromasia 1+ (0-2) /OIF; Schistocytes 2+ (3-5) /OIF; Smudge Cells PRESENT; Target Cells 1+ (5-14) /OIF; Tear Drop Cells 1+ (0-2) /OIF; Toxic Granulation PRESENT
[2025-01-22 06:10] LABS: Alanine Aminotransferase 18 U/L (0-31); Albumin Level 2.9 g/dL (3.5-5.0); Alkaline Phosphatase 132 U/L (39-117); Anion Gap 22 (12-20); Aspartate Amino Transferase 41 U/L (5-31); Bilirubin Total 0.8 mg/dL (0.0-1.0); Blood Urea Nitrogen 63 mg/dL (9-16); Carbon Dioxide 27 mmol/L (22-29); Chloride 109 mmol/L (96-108); Creatinine Clr Calc Pharmacy 32.8; Estimated Glomerular Filt Rate 32; Glucose Random 203 mg/dL (60-115); Magnesium 2.4 mg/dL (1.6-2.6); Phosphorus 4.3 mg/dL (2.7-4.5); Potassium 2.8 mmol/L (3.3-5.1); Sodium 155 mmol/L (135-145); Total Protein 4.6 g/dL (6.5-8.0); Toxic Vacuolation PRESENT
[2025-01-22 06:12] LABS: Glucose, Whole Blood 201 mg/dL (60-115)
[2025-01-22 06:18] LABS: Venous Blood Gas Refer to POC result
[2025-01-22] MEDS: Insulin Lispro 100 UNIT/ML 3 ML VIAL SUBCUT ×3 (06:26→23:32)
[2025-01-22] MEDS: Potassium Chloride/H20 40 MEQ/100 ML PIGGYBACK 100 MEQ IV ×3 (06:27→11:11)
[2025-01-22] MEDS: Pantoprazole Sodium 40 MG/10 ML VIAL IVPUSH ×2 (06:27→17:00)
[2025-01-22] MEDS: Dextrose 5 % 1,000 ML 50 ML IVCONT (06:39)
[2025-01-22] MEDS: Albumin Human 25 % 50 ML 100 ML IV ×4 (07:54→10:34)
[2025-01-22] MEDS: 0.9 % Sodium Chloride Flush 3 ML SYRINGE IVFLUSH ×2 (07:55→17:01)
[2025-01-22] MEDS: Chlorhexidine Gluc Oral Rinse 15 ML MOUTHWASH BUCCAL ×3 (08:23→20:55)
[2025-01-22] MEDS: Nystatin Powder 15 GM BOTTLE 1 APPL TOPICAL ×3 (08:53→20:55)
--- NOTE | 2025-01-22 10:01 | MHC.CLN ---
F/U PT REMAINS INTUBATED AND SEDATED DISCUSSED AT ROUNDS WITH MD PLAN TO RE-START TF TODAY PT TO RECEIVE PROMOTE AT MAX GOAL RATE 50ML/HR WITH 240ML FREE WATER FLUSHES Q 6 HRS TO PROVIDE 1200KCALS (1585KCALS WITH SEDATION; 26KCALS/KG), 75G PROTEIN (1.2G/KG), 1966ML TOTAL FREE WATER FROM FORMULA AND FLUSHES (32ML/KG) MONITOR TOLERANCE AND LYTES
--- NOTE | 2025-01-22 10:27 | PM.CCPN ---
Subjective Subjective Date of Service: 01/22/25 Interval History: 59-year-old lady with underlying history of CKD stage III, hypertension, diabetes mellitus, orthostatic hypotension, recurrent UTIs, chronic diarrhea admitted on 01/15/2025 with dyspnea and hypoxia initially requiring BiPAP support. Laboratory studies significant for metabolic acidosis with elevated BNP. Patient wants started on empiric antibiotics and colloidal support. Hospital course significant for progressive respiratory distress requiring intubation 01/16/2025, acute blood loss anemia secondary to lower GI bleed. Overnight with recurrent GI bleed, now requiring pressor support, status post transfusion additional unit of packed red blood cells. Critical Care Time (minutes): 60 Physical Exam Vital Signs: Vital Signs: Last Vital Signs Temp 100.9 F H 01/22/25 10:00 Pulse 92 01/22/25 10:02 Resp 22 H 01/22/25 10:00 BP 118/52 L 01/22/25 10:02 Pulse Ox 91 L 01/22/25 10:00 O2 Del Method Mechanical Ventil ation 01/22/25 10:00 O2 Flow Rate 01/20/25 22:00 FiO2 21 01/22/25 10:00 BMI result Body Mass Index 26.2 Const: General: no acute distress and other (Sedated on ventilatory support) Eyes: Sclerae: sclerae normal EOM: EOMs intact bilaterally Neck: Neck: Yes no lymphadenopathy, Yes trachea midline and Yes supple Resp: Auscultation: clear to auscultation bilaterally Cardio: Rate: regular rate Rhythm: regular rhythm Heart sounds: no gallops, no murmurs and no rubs GI: Palpation (GI): Soft to palpation and Other GI palpation findings present ( Nontender) Auscultation: normal bowel sounds Extrem: General: No clubbing, No cyanosis and Yes edema (1+ bilateral) Objective Data Labs 01/22/25 05:08 01/22/25 05:08 Labs: Laboratory Results - last 24 hr 01/20/25 01/21/25 01/21/25 21:21 12:22 12:41 WBC 10.1 RBC 3.29 L D Hgb 9.5 L D Hct 26.8 L D MCV 81.5 D MCH 28.9 MCHC 35.4 H RDW 20.4 H Plt Count 159 L MPV 12.0 Immature Gran % (Auto) Cancelled Neut % (Auto) Cancelled Lymph % (Auto) Cancelled [place] % (Auto) Cancelled Eos % (Auto) Cancelled Baso % (Auto) Cancelled Lymph # (Auto) Cancelled [place] # (Auto) Cancelled Eos # (Auto) Cancelled Baso # (Auto) Cancelled Abs Immat Gran (auto) Cancelled Absolute Neuts (auto) Cancelled Absolute Nucleated RBC 0.000 Nucleated RBC % (auto) 0.0 Neutrophils % (Manual) 79 H Band Neutrophils % 3 Lymphocytes % (Manual) 13 L Atypical Lymphs % (Man) Monocytes % (Manual) 4 Metamyelocytes % 1 Abs Neuts (Manual) 8.3 Lymphocytes # (Manual) 1.3 Atyp Lymphs # (Manual) Monocytes # (Manual) 0.4 Metamyelocytes # 0.1 Smudge Cells Toxic Granulation Toxic Vacuolation Dohle Bodies PRESENT Platelet Estimate NORMAL Large Platelets Plt Morphology Comment NORMAL RBC Morphology NOTED Polychromasia Hypochromasia 1+ (5-14) Basophilic Stippling Microcytosis 1+ (5-14) Target Cells Tear Drop Cells Ovalocytes Stomatocytes [place] Cells 1+ (0-2) Acanthocytes (Spur) Schistocytes 1+ (0-2) PT INR APTT VBG pH VBG pCO2 VBG pO2 VBG HCO3 VBG O2 Saturation VBG Base Excess Sodium 150 H Potassium 3.7 D Chloride 105 Carbon Dioxide 29 Anion Gap 20 BUN 67 H Creatinine 1.71 H Estim Creat Clear Calc 31.3 Estimated GFR 30 POC Glucose 276 H Random Glucose 284 H Lactic Acid F/U @ 2Hr 1.0 Calcium 7.8 L Phosphorus Magnesium Total Bilirubin AST ALT Alkaline Phosphatase Total Protein Albumin Crossmatch See Detail 01/21/25 01/21/25 01/21/25 17:18 18:01 23:49 WBC 13.2 H RBC 3.16 L Hgb 9.1 L Hct 25.5 L MCV 80.7 MCH 28.8 MCHC 35.7 H RDW 20.9 H Plt Count 167 MPV 12.0 Immature Gran % (Auto) Cancelled Neut % (Auto) Cancelled Lymph % (Auto) Cancelled [place] % (Auto) Cancelled Eos % (Auto) Cancelled Baso % (Auto) Cancelled Lymph # (Auto) Cancelled [place] # (Auto) Cancelled Eos # (Auto) Cancelled Baso # (Auto) Cancelled Abs Immat Gran (auto) Cancelled Absolute Neuts (auto) Cancelled Absolute Nucleated RBC 0.000 Nucleated RBC % (auto) 0.0 Neutrophils % (Manual) 71 Band Neutrophils % 20 H Lymphocytes % (Manual) 6 L Atypical Lymphs % (Man) 1 Monocytes % (Manual) 2 Metamyelocytes % Abs Neuts (Manual) 12.0 H Lymphocytes # (Manual) 0.8 L Atyp Lymphs # (Manual) 0.1 Monocytes # (Manual) 0.3 Metamyelocytes # Smudge Cells PRESENT Toxic Granulation PRESENT Toxic Vacuolation PRESENT Dohle Bodies PRESENT Platelet Estimate NORMAL Large Platelets Plt Morphology Comment NORMAL RBC Morphology NOTED Polychromasia Hypochromasia Basophilic Stippling Microcytosis 2+ (15-30) Target Cells 1+ (5-14) Tear Drop Cells Ovalocytes Stomatocytes [place] Cells 1+ (0-2) Acanthocytes (Spur) Schistocytes 1+ (0-2) PT INR APTT VBG pH VBG pCO2 VBG pO2 VBG HCO3 VBG O2 Saturation VBG Base Excess Sodium Potassium Chloride Carbon Dioxide Anion Gap BUN Creatinine Estim Creat Clear Calc Estimated GFR POC Glucose 174 H 214 H Random Glucose Lactic Acid F/U @ 2Hr Calcium Phosphorus Magnesium Total Bilirubin AST ALT Alkaline Phosphatase Total Protein Albumin Crossmatch 01/22/25 01/22/25 01/22/25 00:24 05:08 05:19 WBC 11.3 H 11.5 H RBC 2.89 L 2.74 L Hgb 8.4 L 7.9 L Hct 23.7 L 22.5 L MCV 82.0 82.1 MCH 29.1 28.8 MCHC 35.4 H 35.1 H RDW 21.3 H 21.7 H Plt Count 167 189 MPV 11.3 11.8 Immature Gran % (Auto) Cancelled Neut % (Auto) Cancelled Lymph % (Auto) Cancelled [place] % (Auto) Cancelled Eos % (Auto) Cancelled Baso % (Auto) Cancelled Lymph # (Auto) Cancelled [place] # (Auto) Cancelled Eos # (Auto) Cancelled Baso # (Auto) Cancelled Abs Immat Gran (auto) Cancelled Absolute Neuts (auto) Cancelled Absolute Nucleated RBC 0.000 0.000 Nucleated RBC % (auto) 0.0 0.0 Neutrophils % (Manual) 73 Band Neutrophils % 10 H Lymphocytes % (Manual) 14 L Atypical Lymphs % (Man) Monocytes % (Manual) 2 Metamyelocytes % 1 Abs Neuts (Manual) 9.5 H Lymphocytes # (Manual) 1.6 Atyp Lymphs # (Manual) Monocytes # (Manual) 0.2 Metamyelocytes # 0.1 Smudge Cells PRESENT Toxic Granulation PRESENT Toxic Vacuolation PRESENT Dohle Bodies PRESENT Platelet Estimate NORMAL Large Platelets PRESENT Plt Morphology Comment NOTED RBC Morphology NOTED Polychromasia 1+ (0-2) Hypochromasia 3+ (>30) Basophilic Stippling 1+ (0-2) Microcytosis 2+ (15-30) Target Cells 1+ (5-14) Tear Drop Cells 1+ (0-2) Ovalocytes 1+ (5-14) Stomatocytes 1+ (5-14) [place] Cells 2+ (3-5) Acanthocytes (Spur) 2+ (3-5) Schistocytes 2+ (3-5) PT 13.0 H D INR 1.1 APTT 28.4 VBG pH 7.53 H VBG pCO2 36 VBG pO2 47 VBG HCO3 30 H VBG O2 Saturation 76.0 VBG Base Excess 7.8 Sodium 155 H Potassium 2.8 L* D Chloride 109 H Carbon Dioxide 27 Anion Gap 22 H BUN 63 H Creatinine 1.63 H Estim Creat Clear Calc 32.8 Estimated GFR 32 POC Glucose Random Glucose 203 H Lactic Acid F/U @ 2Hr Calcium 8.0 L Phosphorus 4.3 Magnesium 2.4 Total Bilirubin 0.8 AST 41 H ALT 18 Alkaline Phosphatase 132 H Total Protein 4.6 L Albumin 2.9 L Crossmatch 01/22/25 06:03 WBC RBC Hgb Hct MCV MCH MCHC RDW Plt Count MPV Immature Gran % (Auto) Neut % (Auto) Lymph % (Auto) [place] % (Auto) Eos % (Auto) Baso % (Auto) Lymph # (Auto) [place] # (Auto) Eos # (Auto) Baso # (Auto) Abs Immat Gran (auto) Absolute Neuts (auto) Absolute Nucleated RBC Nucleated RBC % (auto) Neutrophils % (Manual) Band Neutrophils % Lymphocytes % (Manual) Atypical Lymphs % (Man) Monocytes % (Manual) Metamyelocytes % Abs Neuts (Manual) Lymphocytes # (Manual) Atyp Lymphs # (Manual) Monocytes # (Manual) Metamyelocytes # Smudge Cells Toxic Granulation Toxic Vacuolation Dohle Bodies Platelet Estimate Large Platelets Plt Morphology Comment RBC Morphology Polychromasia Hypochromasia Basophilic Stippling Microcytosis Target Cells Tear Drop Cells Ovalocytes Stomatocytes [place] Cells Acanthocytes (Spur) Schistocytes PT INR APTT VBG pH VBG pCO2 VBG pO2 VBG HCO3 VBG O2 Saturation VBG Base Excess Sodium Potassium Chloride Carbon Dioxide Anion Gap BUN Creatinine Estim Creat Clear Calc Estimated GFR POC Glucose 201 H Random Glucose Lactic Acid F/U @ 2Hr Calcium Phosphorus Magnesium Total Bilirubin AST ALT Alkaline Phosphatase Total Protein Albumin Crossmatch Microbiology Microbiology Results: Microbiology 01/21/25 04:02 Blood - Venous Blood Culture - Preliminary No growth after 24 hours. 01/21/25 04:02 Blood - Venous Blood Culture - Preliminary No growth after 24 hours. 01/17/25 15:09 Bronch Lll Fungal Identification - Preliminary Culture in progress. 01/15/25 16:42 Blood - Venous Blood Culture - Final No growth after 5 days. 01/15/25 16:37 Blood - Venous Blood Culture - Final No growth after 5 days. 01/17/25 15:09 Bronch Lll Direct Acid Fast Bacilli Smear - Final 01/17/25 15:09 Bronch Lll Gram Stain - Final 01/17/25 15:09 Bronch Lll - Final No growth after 2 days 01/17/25 15:09 Bronch Lll Routine Culture - Final 01/17/25 15:09 Bronch Rll Gram Stain - Final 01/17/25 15:09 Bronch Rll - Final No growth after 2 days 01/16/25 07:36 Aspirate - Suctioned Gram Stain - Final 01/16/25 07:36 Aspirate - Suctioned Sputum Culture - Final Progress Note: A&P Assessment and plan (1) Hemorrhagic shock: Status: Acute (2) Poorly controlled diabetes mellitus: Status: Acute (3) GI bleed: Status: Acute Plan Assessment: 59-year-old lady with underlying CKD and diabetes mellitus admitted with acute hypoxic respiratory failure with unclear etiology but good response to empiric systemic glucocorticoids Plan: Neuro: Encephalopathy of unclear etiology, improving. MRI brain with small acute occipital infarct in stigmata of prior CVAs. Cardiac: Hemorrhagic shock, continue to titrate off pressor support as tolerated. Pulmonary: Acute hypoxic respiratory failure requiring ventilatory support, continue to titrate off as tolerated. Renal: Acute renal failure, improving. Continue to monitor renal indices and urine output. Endo: No acute issues. GI: Acute GI bleed. Tagged red cell scan is positive on 01/21/2025, no embolization at that time secondary to stabilization of hemoglobin and IR concern for contrast allergy, now with recurrent bleed, planned for embolization today. ID: Cultures negative to date, but newly febrile, will restart on empiric antibiotics. Heme/Onc: Acute blood loss anemia secondary to GI bleed. Status post 2 units of packed red blood cells. Continue to monitor hemoglobin level. Transfusion threshold hemoglobin of 7. Psych: No acute issues. Miscellaneous: No acute issues. Prophylaxis: Pneumatic compression, ppi Diet: Tube feeds Critical care time spent: 60 minutes Quality Stroke Does the patient have a stroke diagnosis?: No VTE Prior VTE?: No VTE Risk Level:: Medical - moderate - high VTE Device Contraindication: N/A - Device Ordered VTE Drug Contraindication: N/A - Med Ordered
[2025-01-22] MEDS: Albumin Human 25 % 100 ML IV ×3 (11:06→21:41)
[2025-01-22 11:29] LABS: Glucose, Whole Blood 142 mg/dL (60-115)
[2025-01-22] MEDS: diphenhydrAMINE HCL 50 MG/ML VIAL IVPUSH (12:49)
[2025-01-22] MEDS: propofoL 1,000 MG/100 ML VIAL 19.46 MG IVCONT ×2 (13:25→17:59)
[2025-01-22] MEDS: ceFAZolin Sodium/Dextrose,Iso 2 GM/50 ML PIGGYBACK IV (14:51)
--- NOTE | 2025-01-22 14:52 | MHC.CM.PN ---
Pt continued on ventilatory support in ICU: blood values being monitored secondary to GIB. D/C planning ongoing.
[2025-01-22 17:29] LABS: Glucose, Whole Blood 270 mg/dL (60-115)
--- NOTE | 2025-01-22 19:40 | PC.NURSE ---
Neuro: patient sedated not following commands,on Propofol, Pupils 4 sluggish Cardiac: SR to ST on Tele, moderate edema noted to hands bilaterally, Levophed titrated off after procedure, see MAR for details Resp: LS ins Rhonchi TA, Vented on ACVC+ see vent assessment for full details, FIO2 increased this afternoon after IR due to decreased SPO2 and inability to raise HOB GI/: Tube feeds started as ordered, Positive placement of OG assessed with auscultation Integumentary/Musculoskeletal: redness to groin, nystatin as ordered, sedated and muscle weakness noted due to sedation patient off unit to IR, pre medicated as ordered, tolerated procedure well.
[2025-01-22 20:05] LABS: Mean Corpuscular HGB Conc 32.9 g/dl (31.0-35.0); Mean Corpuscular Volume 88.2 fL (80.0-98.0); Platelet Count 204 X10*3/uL (160-400); Red Blood Count 1.86 X10*6/uL (4.20-5.50); Red Cell Distribution Width 22.5 % (11.0-16.0)
[2025-01-22 20:09] LABS: Hematocrit 16.4 % (37.0-47.0); Hemoglobin 5.4 g/dl (12.0-16.0)
[2025-01-22 20:29] LABS: Band Neutrophils Percent 2 % (3-5); Lymphocytes Absolute Manual 0.6 X10*3/uL (1.2-4.9); Lymphocytes Percent Manual 12 % (20-40); Neutrophils Absolute Manual 4.4 X10*3/uL (2.0-8.3); Neutrophils Percent Manual 86 % (45-73)
[2025-01-22 20:33] LABS: Microcytosis 2+ (15-30) /OIF
[2025-01-22 20:35] LABS: Ovalocytes 1+ (5-14) /OIF; Schistocytes 1+ (0-2) /OIF
[2025-01-22 20:36] LABS: Platelet Estimate NORMAL (NORMAL); Platelet Morphology Comment NORMAL; RBC Morphology NOTED
[2025-01-22] MEDS: propofoL 1,000 MG/100 ML VIAL 24.33 MG IVCONT (21:39)
[2025-01-22 23:31] LABS: Glucose, Whole Blood 291 mg/dL (60-115)
[2025-01-23] VITALS (42 sets, daily range): BP systolic 123–160; BP diastolic 50–76; PULSE 70–104; RESP 18–35; TEMP 34.8–38.6; O2SAT 90–100; BMI 25.5
[2025-01-23 00:04] LABS: Glucose, Whole Blood 280 mg/dL (60-115)
[2025-01-23] MEDS: fentaNYL citrate/PF 100 MCG/2 ML VIAL 50 MCG IVPUSH ×2 (00:17→06:05)
[2025-01-23] MEDS: 0.9 % Sodium Chloride Flush 3 ML SYRINGE IVFLUSH ×3 (00:18→16:35)
[2025-01-23] MEDS: propofoL 1,000 MG/100 ML VIAL 24.33 MG IVCONT ×2 (01:32→05:30)
[2025-01-23] MEDS: Albumin Human 25 % 100 ML IV (03:21)
[2025-01-23] MEDS: Albuterol/Iprat 2.5/0.5MG 3 ML AMPUL.NEB INHALE ×4 (04:31→23:09)
[2025-01-23 05:13] LABS: VBG Base Excess -5.4 mmol/L; VBG HCO3 18 mmol/L (22-26); VBG pCO2 28 mmHg; VBG pH 7.41 (7.32-7.43); VBG pO2 55 mmHg
[2025-01-23 05:26] LABS: Hematocrit 21.9 % (37.0-47.0); Hemoglobin 7.2 g/dl (12.0-16.0); Mean Corpuscular HGB Conc 32.9 g/dl (31.0-35.0); Mean Corpuscular Volume 88.3 fL (80.0-98.0); Mean Platelet Volume 11.2 fL (9.4-12.3); Platelet Count 235 X10*3/uL (160-400); Red Blood Count 2.48 X10*6/uL (4.20-5.50); Red Cell Distribution Width 19.5 % (11.0-16.0)
[2025-01-23] MEDS: Pantoprazole Sodium 40 MG/10 ML VIAL IVPUSH ×2 (05:48→19:28)
[2025-01-23 05:56] LABS: Alanine Aminotransferase < 6 U/L (0-31); Albumin Level 4.3 g/dL (3.5-5.0); Alkaline Phosphatase 92 U/L (39-117); Anion Gap 29 (12-20); Aspartate Amino Transferase 35 U/L (5-31); Bilirubin Total 0.9 mg/dL (0.0-1.0); Blood Urea Nitrogen 54 mg/dL (9-16); Calcium 9.1 mg/dL (8.4-10.2); Carbon Dioxide 17 mmol/L (22-29); Chloride 113 mmol/L (96-108); Creatinine Clr Calc Pharmacy 31.7; Estimated Glomerular Filt Rate 30; Glucose Random 390 mg/dL (60-115); Magnesium 2.7 mg/dL (1.6-2.6); Phosphorus 3.7 mg/dL (2.7-4.5); Potassium 4.1 mmol/L (3.3-5.1); Sodium 155 mmol/L (135-145); Total Protein 5.7 g/dL (6.5-8.0)
[2025-01-23] MEDS: Insulin Lispro 100 UNIT/ML 3 ML VIAL SUBCUT ×6 (05:58→23:58)
[2025-01-23 06:03] LABS: Venous Blood Gas Refer to POC result
--- NOTE | 2025-01-23 06:18 | PC.NURSE ---
Assumed care 1900, pt intubated and sedated on propofol gtt - see MAR for titrations. On ACVC settings - see vent assessment. Pt with increased RR and work of breathing -? fentanyl 50 mcg IVP administered x2 this shift with some effectiveness. Core temp 100.4 - SURVEY STATISTICIAN [place] aware. Ice packs applied. Hgb & hct 5.4/16.4 - 2 units PRBCs ordered and administered - see TAR. Rectal tube patent, draining dark red liquid stool - total shift output 300 ml.?
[2025-01-23 06:44] LABS: Band Neutrophils Percent 3 % (3-5); Lymphocytes Absolute Manual 0.7 X10*3/uL (1.2-4.9); Lymphocytes Percent Manual 12 % (20-40); Monocytes Absolute Manual 0.1 X10*3/uL (0.1-1.2); Monocytes Percent Manual 2 % (2-11); Neutrophils Absolute Manual 5.2 X10*3/uL (2.0-8.3); Neutrophils Percent Manual 83 % (45-73)
[2025-01-23 06:48] LABS: Acanthocytes 2+ (3-5) /OIF; Burr Cells 1+ (0-2) /OIF; Platelet Estimate NORMAL (NORMAL); Platelet Morphology Comment NORMAL; Polychromasia 1+ (0-2) /OIF; RBC Morphology NOTED
[2025-01-23] MEDS: fentaNYL citrate/NS 1,000 MCG/100 ML PLAST..BAG 2.5 MCG IVCONT (07:05)
[2025-01-23] MEDS: Chlorhexidine Gluc Oral Rinse 15 ML MOUTHWASH BUCCAL ×3 (07:07→19:28)
[2025-01-23] MEDS: Nystatin Powder 15 GM BOTTLE 1 APPL TOPICAL ×3 (07:07→19:42)
[2025-01-23] MEDS: Dextrose 5 % 1,000 ML 250 ML IVCONT ×2 (08:31→12:32)
[2025-01-23] MEDS: propofoL 1,000 MG/100 ML VIAL 19.46 MG IVCONT ×2 (09:44→22:38)
--- NOTE | 2025-01-23 09:51 | PM.CCPN ---
Subjective Subjective Date of Service: 01/23/25 Interval History: 59-year-old lady with underlying history of CKD stage III, hypertension, diabetes mellitus, orthostatic hypotension, recurrent UTIs, chronic diarrhea admitted on 01/15/2025 with dyspnea and hypoxia initially requiring BiPAP support. Laboratory studies significant for metabolic acidosis with elevated BNP. Patient wants started on empiric antibiotics and colloidal support. Hospital course significant for progressive respiratory distress requiring intubation 01/16/2025, acute blood loss anemia secondary to lower GI bleed. Status post embolization on 01/22/2025. No events overnight. No rebleeding. Critical Care Time (minutes): 60 Physical Exam Vital Signs: Vital Signs: Last Vital Signs Temp 100.2 F 01/23/25 09:00 Pulse 86 01/23/25 09:00 Resp 23 H 01/23/25 09:00 BP 146/62 H 01/23/25 09:00 Pulse Ox 94 01/23/25 09:00 O2 Del Method Mechanical Ventil ation 01/23/25 09:00 O2 Flow Rate 25 01/22/25 15:15 FiO2 21 01/23/25 09:00 BMI result Body Mass Index 25.5 Const: General: no acute distress and other (Sedated on ventilatory support) Eyes: Sclerae: sclerae normal EOM: EOMs intact bilaterally Neck: Neck: Yes no lymphadenopathy, Yes trachea midline and Yes supple Resp: Effort & Inspection: normal respiratory effort and no respiratory distress Auscultation: clear to auscultation bilaterally Cardio: Rate: regular rate Rhythm: regular rhythm Heart sounds: no gallops, no murmurs and no rubs GI: Palpation (GI): Soft to palpation and Other GI palpation findings present ( Nontender) Auscultation: normal bowel sounds Extrem: General: Yes no pedal edema, No clubbing and No cyanosis Objective Data Labs 01/23/25 04:50 01/23/25 04:50 Labs: Laboratory Results - last 24 hr 01/20/25 01/22/25 01/22/25 21:21 11:22 17:20 WBC RBC Hgb Hct MCV MCH MCHC RDW Plt Count MPV Immature Gran % (Auto) Neut % (Auto) Lymph % (Auto) [place] % (Auto) Eos % (Auto) Baso % (Auto) Lymph # (Auto) [place] # (Auto) Eos # (Auto) Baso # (Auto) Abs Immat Gran (auto) Absolute Neuts (auto) Absolute Nucleated RBC Nucleated RBC % (auto) Neutrophils % (Manual) Band Neutrophils % Lymphocytes % (Manual) Monocytes % (Manual) Abs Neuts (Manual) Lymphocytes # (Manual) Monocytes # (Manual) Platelet Estimate Plt Morphology Comment RBC Morphology Polychromasia Microcytosis Ovalocytes [place] Cells Acanthocytes (Spur) Schistocytes VBG pH VBG pCO2 VBG pO2 VBG HCO3 VBG O2 Saturation VBG Base Excess Sodium Potassium Chloride Carbon Dioxide Anion Gap BUN Creatinine Estim Creat Clear Calc Estimated GFR POC Glucose 142 H 270 H Random Glucose Calcium Phosphorus Magnesium Total Bilirubin AST ALT Alkaline Phosphatase Total Protein Albumin Blood Type B Positive Antibody Screen NEGATIVE Crossmatch See Detail 01/22/25 01/22/25 01/22/25 19:52 23:26 23:49 WBC 5.0 RBC 1.86 L D Hgb 5.4 L* D Hct 16.4 L* D MCV 88.2 D MCH 29.0 MCHC 32.9 RDW 22.5 H Plt Count 204 MPV 11.0 Immature Gran % (Auto) Cancelled Neut % (Auto) Cancelled Lymph % (Auto) Cancelled [place] % (Auto) Cancelled Eos % (Auto) Cancelled Baso % (Auto) Cancelled Lymph # (Auto) Cancelled [place] # (Auto) Cancelled Eos # (Auto) Cancelled Baso # (Auto) Cancelled Abs Immat Gran (auto) Cancelled Absolute Neuts (auto) Cancelled Absolute Nucleated RBC 0.000 Nucleated RBC % (auto) 0.0 Neutrophils % (Manual) 86 H Band Neutrophils % 2 L Lymphocytes % (Manual) 12 L Monocytes % (Manual) Abs Neuts (Manual) 4.4 Lymphocytes # (Manual) 0.6 L Monocytes # (Manual) Platelet Estimate NORMAL Plt Morphology Comment NORMAL RBC Morphology NOTED Polychromasia Microcytosis 2+ (15-30) Ovalocytes 1+ (5-14) [place] Cells Acanthocytes (Spur) Schistocytes 1+ (0-2) VBG pH VBG pCO2 VBG pO2 VBG HCO3 VBG O2 Saturation VBG Base Excess Sodium Potassium Chloride Carbon Dioxide Anion Gap BUN Creatinine Estim Creat Clear Calc Estimated GFR POC Glucose 291 H 280 H Random Glucose Calcium Phosphorus Magnesium Total Bilirubin AST ALT Alkaline Phosphatase Total Protein Albumin Blood Type Antibody Screen Crossmatch 01/23/25 01/23/25 04:50 05:08 WBC 6.0 RBC 2.48 L D Hgb 7.2 L D Hct 21.9 L D MCV 88.3 MCH 29.0 MCHC 32.9 RDW 19.5 H Plt Count 235 MPV 11.2 Immature Gran % (Auto) Cancelled Neut % (Auto) Cancelled Lymph % (Auto) Cancelled [place] % (Auto) Cancelled Eos % (Auto) Cancelled Baso % (Auto) Cancelled Lymph # (Auto) Cancelled [place] # (Auto) Cancelled Eos # (Auto) Cancelled Baso # (Auto) Cancelled Abs Immat Gran (auto) Cancelled Absolute Neuts (auto) Cancelled Absolute Nucleated RBC 0.000 Nucleated RBC % (auto) 0.0 Neutrophils % (Manual) 83 H Band Neutrophils % 3 Lymphocytes % (Manual) 12 L Monocytes % (Manual) 2 Abs Neuts (Manual) 5.2 Lymphocytes # (Manual) 0.7 L Monocytes # (Manual) 0.1 Platelet Estimate NORMAL Plt Morphology Comment NORMAL RBC Morphology NOTED Polychromasia 1+ (0-2) Microcytosis Ovalocytes [place] Cells 1+ (0-2) Acanthocytes (Spur) 2+ (3-5) Schistocytes VBG pH 7.41 VBG pCO2 28 VBG pO2 55 VBG HCO3 18 L VBG O2 Saturation 85.0 VBG Base Excess -5.4 Sodium 155 H Potassium 4.1 D Chloride 113 H Carbon Dioxide 17 L Anion Gap 29 H BUN 54 H Creatinine 1.71 H Estim Creat Clear Calc 31.7 Estimated GFR 30 POC Glucose Random Glucose 390 H* Calcium 9.1 D Phosphorus 3.7 Magnesium 2.7 H Total Bilirubin 0.9 AST 35 H ALT < 6 Alkaline Phosphatase 92 Total Protein 5.7 L Albumin 4.3 Blood Type Antibody Screen Crossmatch Microbiology Microbiology Results: Microbiology 01/21/25 04:02 Blood - Venous Blood Culture - Preliminary No growth after 48 hours. 01/21/25 04:02 Blood - Venous Blood Culture - Preliminary No growth after 48 hours. 01/17/25 15:09 Bronch Lll Fungal Identification - Preliminary Culture in progress. 01/15/25 16:42 Blood - Venous Blood Culture - Final No growth after 5 days. 01/15/25 16:37 Blood - Venous Blood Culture - Final No growth after 5 days. 01/17/25 15:09 Bronch Lll Direct Acid Fast Bacilli Smear - Final 01/17/25 15:09 Bronch Lll Gram Stain - Final 01/17/25 15:09 Bronch Lll - Final No growth after 2 days 01/17/25 15:09 Bronch Lll Routine Culture - Final 01/17/25 15:09 Bronch Rll Gram Stain - Final 01/17/25 15:09 Bronch Rll - Final No growth after 2 days 01/16/25 07:36 Aspirate - Suctioned Gram Stain - Final 01/16/25 07:36 Aspirate - Suctioned Sputum Culture - Final Progress Note: A&P Assessment and plan (1) Hemorrhagic shock: Status: Acute (2) Poorly controlled diabetes mellitus: Status: Acute (3) GI bleed: Status: Acute Plan Assessment: 59-year-old lady with underlying CKD and diabetes mellitus admitted with acute hypoxic respiratory failure with unclear etiology but good response to empiric systemic glucocorticoids Plan: Neuro: Encephalopathy of unclear etiology, improving. MRI brain with small acute occipital infarct in stigmata of prior CVAs. Cardiac: Hemorrhagic shock, resolved, titrated off pressor support. Pulmonary: Acute hypoxic respiratory failure requiring ventilatory support, continue to titrate off as tolerated. Renal: Acute renal failure, improving. Continue to monitor renal indices and urine output. Endo: No acute issues. GI: Acute GI bleed. Tagged red cell scan is positive on 01/21/2025, status post embolization on 01/22/2025. No rebleeding overnight. ID: Cultures negative to date, continue empiric antibiotics. Heme/Onc: Acute blood loss anemia secondary to GI bleed. No rebleeding overnight. Continue to monitor hemoglobin level. Transfusion threshold hemoglobin of 7. Psych: No acute issues. Miscellaneous: No acute issues. Prophylaxis: Pneumatic compression, ppi Diet: Tube feeds Critical care time spent: 60 minutes Quality Stroke Does the patient have a stroke diagnosis?: No VTE Prior VTE?: No VTE Risk Level:: Medical - moderate - high VTE Device Contraindication: N/A - Device Ordered VTE Drug Contraindication: N/A - Med Ordered
[2025-01-23 11:34] LABS: Glucose, Whole Blood 538 mg/dL (60-115)
[2025-01-23 16:43] LABS: Aspergillus Antigen Not Detected (Not Detected); Index Value 0.04 (<0.50)
--- NOTE | 2025-01-23 16:44 | PC.NURSE ---
Addendum entered by Umu Willis RN 01/23/25 18:13: Tmax this shift 101.5- MD aware. Pt. packed with ice with good effect. Current core temp 99.5. 1800 POC >600, recheck 551. 15 units lispro subQ given per MD. Original Note: Assumed care at 0700-pt. remains mechanically vented, sedated with propofol and fentanyl gtts per NOV. Sedation vacation performed at 1137- pt. able to open eyes, track, and occasionally follow commands and Nod head Y/N. CONTRERAS. PSV trial performed- sustaining RR30-40 and TVs 150-250 on PSV 04/16- MD and RT notified. Pt. switched back to ACVC+ settings and re-sedated, plan to retry sedation vacation and PSV trial tomorrow AM. 1200 POC 538- MD notified, total of 15 units lispro given per MD. TF held during SV/PSV trial, restarted at 1630. TF product changed to glucerna d/t high POC. Pt. continues to drain dark red liquid stool from FMS. Carrillo remains in place draining CYU. Q2 oral care and repositioning performed. family at bedside, updated by this RN and MD. Plan of care ongoing.
[2025-01-23 17:57] LABS: Glucose, Whole Blood > 600 mg/dL (60-115)
[2025-01-23 17:57] LABS: Glucose, Whole Blood 551 mg/dL (60-115)
[2025-01-23] MEDS: propofoL 1,000 MG/100 ML VIAL 14.6 MG IVCONT (18:31)
[2025-01-23 23:46] LABS: Glucose, Whole Blood 478 mg/dL (60-115)
[2025-01-24] VITALS (30 sets, daily range): BP systolic 115–156; BP diastolic 41–73; PULSE 79–111; RESP 13–34; TEMP 35.1–38.1; O2SAT 91–100; BMI 26.1
[2025-01-24] MEDS: 0.9 % Sodium Chloride Flush 3 ML SYRINGE IVFLUSH ×3 (02:05→16:20)
[2025-01-24] MEDS: propofoL 1,000 MG/100 ML VIAL 19.46 MG IVCONT (03:22)
[2025-01-24] MEDS: Albuterol/Iprat 2.5/0.5MG 3 ML AMPUL.NEB INHALE ×3 (04:54→15:14)
[2025-01-24 05:03] LABS: VBG HCO3 30 mmol/L (22-26); VBG pCO2 35 mmHg; VBG pH 7.54 (7.32-7.43); VBG pO2 60 mmHg
[2025-01-24 05:14] LABS: MANUAL DIFF FLAG NO
[2025-01-24 05:15] LABS: Basophils Percent Auto 0.1 % (0-2); Hematocrit 22.4 % (37.0-47.0); Hemoglobin 7.9 g/dl (12.0-16.0); Imm Gran Abs Auto 0.21 X10*3/uL (0.00-0.03); Imm Gran Pct Auto 2.1 % (0.0-0.4); Lymphocytes Absolute Auto 1.2 X10*3/uL (1.2-4.9); Lymphocytes Percent Auto 12.1 % (20-40); Mean Corpuscular HGB Conc 35.3 g/dl (31.0-35.0); Mean Corpuscular Hemoglobin 30.3 pg (27.0-33.0); Mean Corpuscular Volume 85.8 fL (80.0-98.0); Mean Platelet Volume 10.6 fL (9.4-12.3); Monocytes Absolute Auto 0.4 X10*3/uL (0.1-1.2); Monocytes Percent Auto 3.7 % (2-11); Neutrophils Absolute Auto 8.4 x10*3/uL (2.0-8.3); Platelet Count 318 X10*3/uL (160-400); Red Blood Count 2.61 X10*6/uL (4.20-5.50); Red Cell Distribution Width 19.3 % (11.0-16.0); White Blood Count 10.2 X10*3/uL (4.8-10.8)
[2025-01-24 05:31] LABS: Glucose, Whole Blood 350 mg/dL (60-115)
[2025-01-24] MEDS: Insulin Lispro 100 UNIT/ML 3 ML VIAL SUBCUT ×2 (05:31→11:16)
[2025-01-24] MEDS: Pantoprazole Sodium 40 MG/10 ML VIAL IVPUSH ×2 (05:34→16:20)
[2025-01-24 05:49] LABS: Albumin Level 3.6 g/dL (3.5-5.0); Anion Gap 16 (12-20); Blood Urea Nitrogen 46 mg/dL (9-16); Calcium 8.5 mg/dL (8.4-10.2); Carbon Dioxide 27 mmol/L (22-29); Chloride 110 mmol/L (96-108); Creatinine Clr Calc Pharmacy 41.3; Estimated Glomerular Filt Rate 42; Glucose Random 332 mg/dL (60-115); Magnesium 2.5 mg/dL (1.6-2.6); Phosphorus 1.4 mg/dL (2.7-4.5); Sodium 150 mmol/L (135-145)
[2025-01-24] MEDS: Potassium Chloride/H20 40 MEQ/100 ML PIGGYBACK 100 MEQ IV ×2 (06:35→08:21)
[2025-01-24] MEDS: Potassium Phosphate/NS 15 MMOL/250 ML PLAST..BAG 62.5 MMOL IV ×2 (06:38→11:06)
[2025-01-24 06:47] LABS: Venous Blood Gas Refer to POC result
[2025-01-24] MEDS: Chlorhexidine Gluc Oral Rinse 15 ML MOUTHWASH BUCCAL (07:28)
[2025-01-24] MEDS: Nystatin Powder 15 GM BOTTLE 1 APPL TOPICAL ×3 (07:29→21:00)
[2025-01-24] MEDS: Magnesium Sulfate/H2O 2 GM/50 ML PIGGYBACK IV (08:20)
[2025-01-24] MEDS: Insulin Glargine,Hum.rec.anlog 100 UNIT/ML 10 ML VIAL 30 UNIT SUBCUT (08:23)
--- NOTE | 2025-01-24 09:28 | P.PNCC_ITS ---
Subjective Subjective Date of Service: 01/24/25 Interval History: 59-year-old lady with underlying history of CKD stage III, hypertension, diabetes mellitus, orthostatic hypotension, recurrent UTIs, chronic diarrhea admitted on 01/15/2025 with dyspnea and hypoxia initially requiring BiPAP support. Laboratory studies significant for metabolic acidosis with elevated BNP. Patient wants started on empiric antibiotics and colloidal support. Hospital course significant for progressive respiratory distress requiring intubation 01/16/2025, acute blood loss anemia secondary to lower GI bleed. Status post embolization on 01/22/2025. No events overnight. Poor arousal with sedation vacation yesterday. Critical Care Time (minutes): 60 Physical Exam 2 Vital Signs: Vital Signs: Last Vital Signs Temp 99.9 F 01/24/25 09:00 Pulse 91 01/24/25 09:00 Resp 20 01/24/25 09:00 BP 135/64 01/24/25 09:00 Pulse Ox 96 01/24/25 09:00 O2 Del Method Mechanical Ventil ation 01/24/25 09:00 O2 Flow Rate 01/22/25 15:15 FiO2 21 01/24/25 09:00 BMI result Body Mass Index 26.1 Const: General: no acute distress and other (Sedated on ventilatory support) Eyes: Sclerae: sclerae normal EOM: EOMs intact bilaterally Neck: Neck: Yes no lymphadenopathy, Yes trachea midline and Yes supple Resp: Auscultation: clear to auscultation bilaterally Cardio: Rate: regular rate Rhythm: regular rhythm Heart sounds: no gallops, no murmurs and no rubs GI: Palpation (GI): Soft to palpation and Other GI palpation findings present ( Nontender) Auscultation: normal bowel sounds Extrem: General: Yes no pedal edema, No clubbing and No cyanosis Objective Data Labs 01/24/25 04:51 01/24/25 04:51 Labs: Laboratory Results - last 24 hr 01/20/25 01/23/25 01/23/25 11:31 11:25 17:52 WBC RBC Hgb Hct MCV MCH MCHC RDW Plt Count MPV Immature Gran % (Auto) Neut % (Auto) Lymph % (Auto) [place] % (Auto) Eos % (Auto) Baso % (Auto) Lymph # (Auto) [place] # (Auto) Eos # (Auto) Baso # (Auto) Abs Immat Gran (auto) Absolute Neuts (auto) Absolute Nucleated RBC Nucleated RBC % (auto) VBG pH VBG pCO2 VBG pO2 VBG HCO3 VBG O2 Saturation VBG Base Excess Sodium Potassium Chloride Carbon Dioxide Anion Gap BUN Creatinine Estim Creat Clear Calc Estimated GFR POC Glucose 538 H* > 600 H* Random Glucose Calcium Phosphorus Magnesium Albumin Aspergillus Ag (EIA) Not Detected Aspergillus Index Value 0.04 01/23/25 01/23/25 01/24/25 17:54 23:42 04:51 WBC 10.2 RBC 2.61 L Hgb 7.9 L Hct 22.4 L MCV 85.8 MCH 30.3 MCHC 35.3 H RDW 19.3 H Plt Count 318 D MPV 10.6 Immature Gran % (Auto) 2.1 H Neut % (Auto) 82.0 H Lymph % (Auto) 12.1 L [place] % (Auto) 3.7 Eos % (Auto) 0.0 Baso % (Auto) 0.1 Lymph # (Auto) 1.2 [place] # (Auto) 0.4 Eos # (Auto) 0.0 Baso # (Auto) 0.0 Abs Immat Gran (auto) 0.21 H Absolute Neuts (auto) 8.4 H Absolute Nucleated RBC 0.000 Nucleated RBC % (auto) 0.0 VBG pH VBG pCO2 VBG pO2 VBG HCO3 VBG O2 Saturation VBG Base Excess Sodium 150 H Potassium 3.0 L D Chloride 110 H Carbon Dioxide 27 Anion Gap 16 BUN 46 H Creatinine 1.30 Estim Creat Clear Calc 41.3 Estimated GFR 42 POC Glucose 551 H* 478 H* Random Glucose 332 H Calcium 8.5 D Phosphorus 1.4 L Magnesium 2.5 Albumin 3.6 Aspergillus Ag (EIA) Aspergillus Index Value 01/24/25 01/24/25 04:58 05:28 WBC RBC Hgb Hct MCV MCH MCHC RDW Plt Count MPV Immature Gran % (Auto) Neut % (Auto) Lymph % (Auto) [place] % (Auto) Eos % (Auto) Baso % (Auto) Lymph # (Auto) [place] # (Auto) Eos # (Auto) Baso # (Auto) Abs Immat Gran (auto) Absolute Neuts (auto) Absolute Nucleated RBC Nucleated RBC % (auto) VBG pH 7.54 H VBG pCO2 35 VBG pO2 60 VBG HCO3 30 H VBG O2 Saturation 92.0 VBG Base Excess 8.0 Sodium Potassium Chloride Carbon Dioxide Anion Gap BUN Creatinine Estim Creat Clear Calc Estimated GFR POC Glucose 350 H* Random Glucose Calcium Phosphorus Magnesium Albumin Aspergillus Ag (EIA) Aspergillus Index Value Microbiology Microbiology Results: Microbiology 01/17/25 15:09 Bronch Lll Fungal Identification - Preliminary Yeast 01/21/25 04:02 Blood - Venous Blood Culture - Preliminary No growth after 48 hours. 01/21/25 04:02 Blood - Venous Blood Culture - Preliminary No growth after 48 hours. 01/15/25 16:42 Blood - Venous Blood Culture - Final No growth after 5 days. 01/15/25 16:37 Blood - Venous Blood Culture - Final No growth after 5 days. 01/17/25 15:09 Bronch Lll Direct Acid Fast Bacilli Smear - Final 01/17/25 15:09 Bronch Lll Gram Stain - Final 01/17/25 15:09 Bronch Lll - Final No growth after 2 days 01/17/25 15:09 Bronch Lll Routine Culture - Final 01/17/25 15:09 Bronch Rll Gram Stain - Final 01/17/25 15:09 Bronch Rll - Final No growth after 2 days 01/16/25 07:36 Aspirate - Suctioned Gram Stain - Final 01/16/25 07:36 Aspirate - Suctioned Sputum Culture - Final Progress Note: A&P Assessment and plan (1) Poorly controlled diabetes mellitus: Status: Acute (2) GI bleed: Status: Acute (3) Encephalopathy acute: Status: Acute (4) CAMPOS (acute kidney injury): Status: Resolved Plan Assessment: 59-year-old lady with underlying CKD and diabetes mellitus admitted with acute hypoxic respiratory failure with unclear etiology but good response to empiric systemic glucocorticoids Plan: Neuro: Encephalopathy of unclear etiology, improving. MRI brain with small acute occipital infarct and stigmata of prior CVAs. Cardiac: Hemorrhagic shock, resolved, titrated off pressor support. Pulmonary: Acute hypoxic respiratory failure requiring ventilatory support, continue to titrate off as tolerated. Renal: Acute renal failure, improving. Continue to monitor renal indices and urine output. Endo: No acute issues. GI: Acute GI bleed. Tagged red cell scan is positive on 01/21/2025, status post embolization on 01/22/2025. No rebleeding. ID: Cultures negative to date, continue empiric antibiotics. Heme/Onc: Acute blood loss anemia secondary to GI bleed. No rebleeding. Hemoglobin level stabilized, continue to monitor, transfusion threshold hemoglobin of 7. Psych: No acute issues. Miscellaneous: No acute issues. Prophylaxis: Pneumatic compression, ppi Diet: Tube feeds Critical care time spent: 60 minutes Quality Stroke Does the patient have a stroke diagnosis?: No VTE Prior VTE?: No VTE Risk Level:: Medical - moderate - high VTE Device Contraindication: N/A - Device Ordered VTE Drug Contraindication: N/A - Med Ordered
--- NOTE | 2025-01-24 09:59 | MHC.CLN ---
F/U DISCUSSED AT ROUNDS WITH MD PLAN TO EXTUBATE TODAY PT PREVIOUSLY RECEIVED GLUCERNA AT MAX GOAL RATE 50ML/HR WITH 240ML FREE WATER FLUSHES Q 6 HRS PROVIDED 1200KCALS (1585KCALS WITH SEDATION; 26KCALS/KG), 50G PROTEIN, 1984ML TOTAL FREE WATER FROM FORMULA AND FLUSHES (32ML/KG) WHEN DIET TO ADVANCE; RECOMMEND 1500DM 2GM NA DIET FOLLOWING FOR DIET ADVANCEMENT RD CAN BE REACHED VIA TIGER CONNECT DURING OFF HOURS IF NEEDED
--- NOTE | 2025-01-24 10:59 | MHC.CM.PN ---
PER MD ROUNDS, PLAN TO EXTUBATE PT TODAY. CM WILL CONTINUE TO FOLLOW FOR PLAN.
[2025-01-24 11:21] LABS: Glucose, Whole Blood 181 mg/dL (60-115)
--- NOTE | 2025-01-24 13:39 | MHC.SLORD ---
Speech Language Pathology Order Status: Order received for ACCIDENT INVESTIGATOR consult. Discussed w/ briseyda Pulido deferred to tomorrow 01/25, as patient was extubated <24 hours, failed RN swallow screen.
[2025-01-24] MEDS: Dextrose 50 % 25 GM/50 ML SYRINGE IVPUSH ×2 (17:55→22:03)
[2025-01-24 17:56] LABS: Glucose, Whole Blood 44 mg/dL (60-115)
[2025-01-24 17:56] LABS: Glucose, Whole Blood 50 mg/dL (60-115)
[2025-01-24 18:12] LABS: Glucose, Whole Blood 153 mg/dL (60-115)
--- NOTE | 2025-01-24 18:22 | PC.NURSE ---
Assumed care at 0645- pt. mechanically vented and sedation. Sedation vacation and PSV trial performed, pt. successfully extubated at 0945. Pt. on 1L NC, 02 sats >95%. Pt. opens eyes spontaneously, follows commands, and nods Y/N to questions. Initiallly unable to produce voice, now with very quiet, mumbled, raspy voice. SR on tele, HR 70s-90s. Pt. asking for water, failed nursing bedside swallow. Order for speech bedside swallow placed. Carrillo remains in place draining CYU. TLC removed from R IJ without incident. Tmax 101.3- pt. packed with ice with good effect- current temp 98.1. 1800 POC 44- Amp D50 given per MAR, 15 min recheck POC 153, MD aware. Q2 repositioning and oral care performed. Family at bedside, updated by this RN and MD. Electronic System Engineer utilized PRN. Plan of care ongoing.
[2025-01-24 19:19] LABS: Glucose, Whole Blood 89 mg/dL (60-115)
[2025-01-24 20:31] LABS: Venous Blood Gas Refer to POC result
[2025-01-24 20:32] LABS: VBG Base Excess 7.9 mmol/L; VBG HCO3 29 mmol/L (22-26); VBG pCO2 27 mmHg; VBG pH 7.63 (7.32-7.43); VBG pO2 145 mmHg
[2025-01-24 20:37] LABS: Anion Gap 13 (12-20); Blood Urea Nitrogen 37 mg/dL (9-16); Calcium 8.3 mg/dL (8.4-10.2); Carbon Dioxide 26 mmol/L (22-29); Chloride 118 mmol/L (96-108); Creatinine Clr Calc Pharmacy 68.7; Estimated Glomerular Filt Rate > 60; Glucose Random 74 mg/dL (60-115); Potassium 3.3 mmol/L (3.3-5.1); Sodium 154 mmol/L (135-145)
[2025-01-24 22:09] LABS: Glucose, Whole Blood 61 mg/dL (60-115)
[2025-01-24 22:28] LABS: Glucose, Whole Blood 148 mg/dL (60-115)
[2025-01-24 22:43] LABS: Glucose, Whole Blood 136 mg/dL (60-115)
[2025-01-24 23:00] LABS: Glucose, Whole Blood 126 mg/dL (60-115)
[2025-01-25] VITALS (24 sets, daily range): BP systolic 140–184; BP diastolic 60–89; PULSE 78–101; RESP 16–39; TEMP 36.8–38; O2SAT 90–100; BMI 26.4
[2025-01-25 00:03] LABS: Glucose, Whole Blood 115 mg/dL (60-115)
[2025-01-25] MEDS: 0.9 % Sodium Chloride Flush 3 ML SYRINGE IVFLUSH ×3 (00:22→17:59)
[2025-01-25 03:05] LABS: Glucose, Whole Blood 74 mg/dL (60-115)
[2025-01-25] MEDS: Dextrose 50 % 25 GM/50 ML SYRINGE IVPUSH (03:11)
[2025-01-25 03:33] LABS: Glucose, Whole Blood 172 mg/dL (60-115)
[2025-01-25 03:53] LABS: Glucose, Whole Blood 150 mg/dL (60-115)
[2025-01-25 04:09] LABS: Glucose, Whole Blood 143 mg/dL (60-115)
[2025-01-25 04:26] LABS: MANUAL DIFF FLAG NO
[2025-01-25 04:28] LABS: Basophils Percent Auto 0.1 % (0-2); Eosinophils Percent Auto 0.1 % (0-4); Hematocrit 23.1 % (37.0-47.0); Hemoglobin 7.8 g/dl (12.0-16.0); Imm Gran Abs Auto 0.13 X10*3/uL (0.00-0.03); Imm Gran Pct Auto 1.6 % (0.0-0.4); Lymphocytes Absolute Auto 1.1 X10*3/uL (1.2-4.9); Lymphocytes Percent Auto 13.6 % (20-40); Mean Corpuscular HGB Conc 33.8 g/dl (31.0-35.0); Mean Corpuscular Hemoglobin 29.8 pg (27.0-33.0); Mean Corpuscular Volume 88.2 fL (80.0-98.0); Mean Platelet Volume 10.8 fL (9.4-12.3); Monocytes Absolute Auto 0.4 X10*3/uL (0.1-1.2); Monocytes Percent Auto 4.8 % (2-11); Neutrophils Absolute Auto 6.5 x10*3/uL (2.0-8.3); Neutrophils Percent Auto 79.8 % (45-73); Platelet Count 389 X10*3/uL (160-400); Red Blood Count 2.62 X10*6/uL (4.20-5.50); Red Cell Distribution Width 19.5 % (11.0-16.0); White Blood Count 8.2 X10*3/uL (4.8-10.8)
[2025-01-25 04:35] LABS: VBG Base Excess 9.1 mmol/L; VBG HCO3 29 mmol/L (22-26); VBG pCO2 26 mmHg; VBG pH 7.65 (7.32-7.43); VBG pO2 43 mmHg
[2025-01-25 04:48] LABS: Albumin Level 3.2 g/dL (3.5-5.0); Anion Gap 15 (12-20); Blood Urea Nitrogen 35 mg/dL (9-16); Carbon Dioxide 23 mmol/L (22-29); Chloride 118 mmol/L (96-108); Creatinine Clr Calc Pharmacy 72.3; Estimated Glomerular Filt Rate > 60; Glucose Random 140 mg/dL (60-115); Magnesium 2.7 mg/dL (1.6-2.6); Potassium 3.2 mmol/L (3.3-5.1); Sodium 153 mmol/L (135-145)
[2025-01-25] MEDS: Potassium Phosphate/NS 15 MMOL/250 ML PLAST..BAG 62.5 MMOL IV ×2 (05:14→09:27)
[2025-01-25 05:17] LABS: Venous Blood Gas Refer to POC result
[2025-01-25] MEDS: Pantoprazole Sodium 40 MG/10 ML VIAL IVPUSH (05:40)
[2025-01-25 06:11] LABS: Glucose, Whole Blood 124 mg/dL (60-115)
[2025-01-25] MEDS: Albuterol/Iprat 2.5/0.5MG 3 ML AMPUL.NEB INHALE ×4 (07:51→20:51)
[2025-01-25] MEDS: Nystatin Powder 15 GM BOTTLE 1 APPL TOPICAL ×3 (09:27→23:04)
--- NOTE | 2025-01-25 10:40 | P.PNCC_ITS ---
Subjective Subjective Date of Service: 01/25/25 Interval History: 59-year-old lady with underlying history of CKD stage III, hypertension, diabetes mellitus, orthostatic hypotension, recurrent UTIs, chronic diarrhea admitted on 01/15/2025 with dyspnea and hypoxia initially requiring BiPAP support. Laboratory studies significant for metabolic acidosis with elevated BNP. Patient wants started on empiric antibiotics and colloidal support. Hospital course significant for progressive respiratory distress requiring intubation 01/16/2025, acute blood loss anemia secondary to lower GI bleed. Status post embolization on 01/22/2025. Extubated 01/24/2025. No events overnight. Critical Care Time (minutes): 0 Physical Exam 2 Vital Signs: Vital Signs: Last Vital Signs Temp 98.2 F 01/25/25 10:00 Pulse 82 01/25/25 10:00 Resp 28 H 01/25/25 10:00 BP 148/73 H 01/25/25 10:00 Pulse Ox 96 01/25/25 10:00 O2 Del Method Nasal Cannula 01/25/25 10:00 O2 Flow Rate 1 01/25/25 10:00 FiO2 26 01/25/25 05:00 BMI result Body Mass Index 26.4 Const: General: no acute distress, alert (Vague) and awake Eyes: Sclerae: sclerae normal EOM: EOMs intact bilaterally Neck: Neck: Yes no lymphadenopathy, Yes trachea midline and Yes supple Resp: Effort & Inspection: normal respiratory effort and no respiratory distress Auscultation: clear to auscultation bilaterally Cardio: Rate: regular rate Rhythm: regular rhythm Heart sounds: no gallops, no murmurs and no rubs GI: Palpation (GI): Soft to palpation and Other GI palpation findings present ( Nontender) Auscultation: normal bowel sounds Extrem: General: Yes no pedal edema, No clubbing and No cyanosis Objective Data Labs 01/25/25 04:16 01/25/25 04:16 Labs: Laboratory Results - last 24 hr 01/24/25 01/24/25 01/24/25 11:14 17:52 17:54 WBC RBC Hgb Hct MCV MCH MCHC RDW Plt Count MPV Immature Gran % (Auto) Neut % (Auto) Lymph % (Auto) [place] % (Auto) Eos % (Auto) Baso % (Auto) Lymph # (Auto) [place] # (Auto) Eos # (Auto) Baso # (Auto) Abs Immat Gran (auto) Absolute Neuts (auto) Absolute Nucleated RBC Nucleated RBC % (auto) VBG pH VBG pCO2 VBG pO2 VBG HCO3 VBG O2 Saturation VBG Base Excess Sodium Potassium Chloride Carbon Dioxide Anion Gap BUN Creatinine Estim Creat Clear Calc Estimated GFR POC Glucose 181 H 44 L* 50 L* Random Glucose Calcium Phosphorus Magnesium Albumin 01/24/25 01/24/25 01/24/25 18:09 19:13 20:17 WBC RBC Hgb Hct MCV MCH MCHC RDW Plt Count MPV Immature Gran % (Auto) Neut % (Auto) Lymph % (Auto) [place] % (Auto) Eos % (Auto) Baso % (Auto) Lymph # (Auto) [place] # (Auto) Eos # (Auto) Baso # (Auto) Abs Immat Gran (auto) Absolute Neuts (auto) Absolute Nucleated RBC Nucleated RBC % (auto) VBG pH VBG pCO2 VBG pO2 VBG HCO3 VBG O2 Saturation VBG Base Excess Sodium 154 H Potassium 3.3 Chloride 118 H Carbon Dioxide 26 Anion Gap 13 BUN 37 H Creatinine 0.79 Estim Creat Clear Calc 68.7 Estimated GFR > 60 POC Glucose 153 H 89 Random Glucose 74 Calcium 8.3 L Phosphorus Magnesium Albumin 01/24/25 01/24/25 01/24/25 20:25 22:01 22:25 WBC RBC Hgb Hct MCV MCH MCHC RDW Plt Count MPV Immature Gran % (Auto) Neut % (Auto) Lymph % (Auto) [place] % (Auto) Eos % (Auto) Baso % (Auto) Lymph # (Auto) [place] # (Auto) Eos # (Auto) Baso # (Auto) Abs Immat Gran (auto) Absolute Neuts (auto) Absolute Nucleated RBC Nucleated RBC % (auto) VBG pH 7.63 H* VBG pCO2 27 VBG pO2 145 VBG HCO3 29 H VBG O2 Saturation 99.0 VBG Base Excess 7.9 Sodium Potassium Chloride Carbon Dioxide Anion Gap BUN Creatinine Estim Creat Clear Calc Estimated GFR POC Glucose 61 148 H Random Glucose Calcium Phosphorus Magnesium Albumin 01/24/25 01/24/25 01/24/25 22:40 22:56 23:58 WBC RBC Hgb Hct MCV MCH MCHC RDW Plt Count MPV Immature Gran % (Auto) Neut % (Auto) Lymph % (Auto) [place] % (Auto) Eos % (Auto) Baso % (Auto) Lymph # (Auto) [place] # (Auto) Eos # (Auto) Baso # (Auto) Abs Immat Gran (auto) Absolute Neuts (auto) Absolute Nucleated RBC Nucleated RBC % (auto) VBG pH VBG pCO2 VBG pO2 VBG HCO3 VBG O2 Saturation VBG Base Excess Sodium Potassium Chloride Carbon Dioxide Anion Gap BUN Creatinine Estim Creat Clear Calc Estimated GFR POC Glucose 136 H 126 H 115 Random Glucose Calcium Phosphorus Magnesium Albumin 01/25/25 01/25/25 01/25/25 02:59 03:29 03:48 WBC RBC Hgb Hct MCV MCH MCHC RDW Plt Count MPV Immature Gran % (Auto) Neut % (Auto) Lymph % (Auto) [place] % (Auto) Eos % (Auto) Baso % (Auto) Lymph # (Auto) [place] # (Auto) Eos # (Auto) Baso # (Auto) Abs Immat Gran (auto) Absolute Neuts (auto) Absolute Nucleated RBC Nucleated RBC % (auto) VBG pH VBG pCO2 VBG pO2 VBG HCO3 VBG O2 Saturation VBG Base Excess Sodium Potassium Chloride Carbon Dioxide Anion Gap BUN Creatinine Estim Creat Clear Calc Estimated GFR POC Glucose 74 172 H 150 H Random Glucose Calcium Phosphorus Magnesium Albumin 01/25/25 01/25/25 01/25/25 04:05 04:16 04:29 WBC 8.2 RBC 2.62 L Hgb 7.8 L Hct 23.1 L MCV 88.2 MCH 29.8 MCHC 33.8 RDW 19.5 H Plt Count 389 MPV 10.8 Immature Gran % (Auto) 1.6 H Neut % (Auto) 79.8 H Lymph % (Auto) 13.6 L [place] % (Auto) 4.8 Eos % (Auto) 0.1 Baso % (Auto) 0.1 Lymph # (Auto) 1.1 L [place] # (Auto) 0.4 Eos # (Auto) 0.0 Baso # (Auto) 0.0 Abs Immat Gran (auto) 0.13 H Absolute Neuts (auto) 6.5 Absolute Nucleated RBC 0.000 Nucleated RBC % (auto) 0.0 VBG pH 7.65 H* VBG pCO2 26 VBG pO2 43 VBG HCO3 29 H VBG O2 Saturation 81.0 VBG Base Excess 9.1 Sodium 153 H Potassium 3.2 L Chloride 118 H Carbon Dioxide 23 Anion Gap 15 BUN 35 H Creatinine 0.75 Estim Creat Clear Calc 72.3 Estimated GFR > 60 POC Glucose 143 H Random Glucose 140 H Calcium 8.0 L Phosphorus 2.0 L Magnesium 2.7 H Albumin 3.2 L 01/25/25 06:06 WBC RBC Hgb Hct MCV MCH MCHC RDW Plt Count MPV Immature Gran % (Auto) Neut % (Auto) Lymph % (Auto) [place] % (Auto) Eos % (Auto) Baso % (Auto) Lymph # (Auto) [place] # (Auto) Eos # (Auto) Baso # (Auto) Abs Immat Gran (auto) Absolute Neuts (auto) Absolute Nucleated RBC Nucleated RBC % (auto) VBG pH VBG pCO2 VBG pO2 VBG HCO3 VBG O2 Saturation VBG Base Excess Sodium Potassium Chloride Carbon Dioxide Anion Gap BUN Creatinine Estim Creat Clear Calc Estimated GFR POC Glucose 124 H Random Glucose Calcium Phosphorus Magnesium Albumin Microbiology Microbiology Results: Microbiology 01/17/25 15:09 Bronch Lll Fungal Identification - Preliminary Prat[place]ha albicans 01/21/25 04:02 Blood - Venous Blood Culture - Preliminary No growth after 48 hours. 01/21/25 04:02 Blood - Venous Blood Culture - Preliminary No growth after 48 hours. 01/15/25 16:42 Blood - Venous Blood Culture - Final No growth after 5 days. 01/15/25 16:37 Blood - Venous Blood Culture - Final No growth after 5 days. 01/17/25 15:09 Bronch Lll Direct Acid Fast Bacilli Smear - Final 01/17/25 15:09 Bronch Lll Gram Stain - Final 01/17/25 15:09 Bronch Lll - Final No growth after 2 days 01/17/25 15:09 Bronch Lll Routine Culture - Final 01/17/25 15:09 Bronch Rll Gram Stain - Final 01/17/25 15:09 Bronch Rll - Final No growth after 2 days 01/16/25 07:36 Aspirate - Suctioned Gram Stain - Final 01/16/25 07:36 Aspirate - Suctioned Sputum Culture - Final Progress Note: A&P Assessment and plan (1) GI bleed: Status: Acute (2) CVA (cerebral vascular accident): Status: Acute Plan Assessment: 59-year-old lady with underlying CKD and diabetes mellitus admitted with acute hypoxic respiratory failure with unclear etiology but good response to empiric systemic glucocorticoids Plan: Neuro: Encephalopathy of unclear etiology, improving. MRI brain with small acute occipital infarct and stigmata of prior CVAs. Cardiac: Hemorrhagic shock, resolved, titrated off pressor support. Pulmonary: Acute hypoxic respiratory failure requiring ventilatory support, continue to titrate off as tolerated. Renal: Acute renal failure, resolved. Hypernatremia, start D5. Continue to monitor renal indices and urine output. Endo: No acute issues. GI: Acute lower GI bleed. Tagged red cell scan is positive on 01/21/2025, status post embolization on 01/22/2025. No rebleeding. ID: Cultures negative to date, will monitor off antibiotics. Heme/Onc: Acute blood loss anemia secondary to GI bleed. No rebleeding. Hemoglobin level stabilized, continue to monitor, transfusion threshold hemoglobin of 7. Psych: No acute issues. Miscellaneous: No acute issues. Prophylaxis: Pneumatic compression Diet: Pending swallow evaluation Quality Stroke Does the patient have a stroke diagnosis?: No VTE Prior VTE?: No VTE Risk Level:: Medical - moderate - high VTE Device Contraindication: N/A - Device Ordered VTE Drug Contraindication: N/A - Med Ordered
[2025-01-25] MEDS: Potassium Chloride/H20 10 MEQ/100 ML PIGGYBACK 100 MEQ IV ×4 (12:13→15:42)
[2025-01-25] MEDS: Dextrose 5 % 1,000 ML 75 ML IVCONT (12:14)
--- NOTE | 2025-01-25 13:07 | MHC.SL.SWA ---
Risk of Aspiration Due to: s/p extubation Dysphasia Diet Status: NPO Liquid Consistency and Strategies for Safe Swallow: Liquid Intake Recommendation: NPO Solid Food Consistency: Dietary Recommendations: NPO Oral Medication Intake: NPO Please contact the pharmacy regarding appropriate crushable or liquid drug formulations that are available whenever modified delivery is recommended. Supervision While Eating and Drinking for Safe Swallow: PO with HEEL SEAT FILLER Recommendation for Speech: Inpatient Speech Therapy Comment: Recommend continue NPO. Trace amount of water OK via swab. No ice chips; not able to manipulate in mouth reliably/safely. Continue meds via IV. MD requests HEEL SEAT FILLER re-evaluate tomorrow 01/26. Frequency/Duration: M-F, weekends as needed (call-in) Timeline to reassess: Friday 01/26 [place] Clinican/Clinical Fellow: No Supervisory Statement: I have reviewed and agree with the student/clinical fellow's documentation: N/A Speech Language Pathologist: Monik Mckeon M.A., CCC-HEEL SEAT FILLER
[2025-01-25] MEDS: Insulin Lispro 100 UNIT/ML 3 ML VIAL SUBCUT ×2 (13:26→18:15)
[2025-01-25 13:27] LABS: Glucose, Whole Blood 193 mg/dL (60-115)
[2025-01-25] MEDS: Metoprolol Tartrate 5 MG/5 ML VIAL IVPUSH (15:57)
[2025-01-25] MEDS: cloNIDine 0.2 MG PATCH.TDWK TRANSDERMA (17:59)
[2025-01-25 18:17] LABS: Glucose, Whole Blood 203 mg/dL (60-115)
--- NOTE | 2025-01-25 20:06 | PC.NURSE ---
Neuro: Patient alert and follows simple commands, only words spoken ?[place]? and ?[place]?, Pupils 4 sluggish Cardiac: SR on Tele, Trace edema noted to ankles bilaterally, BP elevated, MD made aware and Metoprolol ordered and given, BP continued to be elevated Clonidine patch ordered and placed on right upper arm. Resp: LS ins Diminished TA, placed on 1L via NC for noted SPO2 dropped to 86-88% GI/: Speech in to do swallow evaluation, continue to do oral care only for now. Carrillo removed at 1930 due to void 0130? Integumentary/Musculoskeletal: severe weakness to upper and lower extremities, scattered bruising noted, slight blanchable redness to coccyx noted and foam dressing applied, barrier cream applied around rectal tube. Transferred to [facility] this evening, bedside report given to Sandra
[2025-01-25 23:46] LABS: Glucose, Whole Blood 159 mg/dL (60-115)
[2025-01-26] VITALS (13 sets, daily range): BP systolic 120–188; BP diastolic 60–85; PULSE 77–100; RESP 16–20; TEMP 36.3–37.1; O2SAT 95–100; BMI 26.6
[2025-01-26] MEDS: Insulin Lispro 100 UNIT/ML 3 ML VIAL SUBCUT ×5 (00:24→22:40)
[2025-01-26] MEDS: Dextrose 5 % 1,000 ML 75 ML IVCONT ×2 (01:28→13:39)
[2025-01-26 06:13] LABS: Glucose, Whole Blood 216 mg/dL (60-115)
[2025-01-26 07:24] LABS: MANUAL DIFF FLAG NO
[2025-01-26 07:31] LABS: Basophils Percent Auto 0.2 % (0-2); Eosinophils Percent Auto 0.3 % (0-4); Hematocrit 22.6 % (37.0-47.0); Hemoglobin 7.3 g/dl (12.0-16.0); Imm Gran Abs Auto 0.16 X10*3/uL (0.00-0.03); Imm Gran Pct Auto 2.5 % (0.0-0.4); Mean Corpuscular HGB Conc 32.3 g/dl (31.0-35.0); Mean Corpuscular Hemoglobin 29.4 pg (27.0-33.0); Mean Corpuscular Volume 91.1 fL (80.0-98.0); Mean Platelet Volume 10.3 fL (9.4-12.3); Monocytes Absolute Auto 0.4 X10*3/uL (0.1-1.2); Monocytes Percent Auto 5.6 % (2-11); Neutrophils Absolute Auto 4.9 x10*3/uL (2.0-8.3); Neutrophils Percent Auto 75.4 % (45-73); Platelet Count 429 X10*3/uL (160-400); Red Blood Count 2.48 X10*6/uL (4.20-5.50); Red Cell Distribution Width 19.2 % (11.0-16.0); White Blood Count 6.4 X10*3/uL (4.8-10.8)
[2025-01-26] MEDS: Albuterol/Iprat 2.5/0.5MG 3 ML AMPUL.NEB INHALE ×4 (07:33→19:47)
[2025-01-26 07:51] LABS: Albumin Level 2.9 g/dL (3.5-5.0); Anion Gap 13 (12-20); Blood Urea Nitrogen 25 mg/dL (9-16); Calcium 7.7 mg/dL (8.4-10.2); Carbon Dioxide 22 mmol/L (22-29); Chloride 117 mmol/L (96-108); Creatinine Clr Calc Pharmacy 77.1; Estimated Glomerular Filt Rate > 60; Glucose Random 198 mg/dL (60-115); Magnesium 2.4 mg/dL (1.6-2.6); Sodium 149 mmol/L (135-145)
[2025-01-26 08:09] LABS: Potassium 2.6 mmol/L (3.3-5.1)
[2025-01-26] MEDS: Nystatin Powder 15 GM BOTTLE 1 APPL TOPICAL ×3 (08:55→20:31)
[2025-01-26] MEDS: Potassium Chloride/H20 10 MEQ/100 ML PIGGYBACK 100 MEQ IV ×4 (08:57→12:17)
[2025-01-26] MEDS: 0.9 % Sodium Chloride Flush 3 ML SYRINGE IVFLUSH ×3 (08:57→20:29)
[2025-01-26 12:23] LABS: Glucose, Whole Blood 220 mg/dL (60-115)
[2025-01-26 13:26] LABS: Anion Gap 18 (12-20); Blood Urea Nitrogen 24 mg/dL (9-16); Calcium 7.5 mg/dL (8.4-10.2); Carbon Dioxide 17 mmol/L (22-29); Chloride 115 mmol/L (96-108); Creatinine Clr Calc Pharmacy 77.1; Estimated Glomerular Filt Rate > 60; Glucose Random 241 mg/dL (60-115); Potassium 3.5 mmol/L (3.3-5.1); Sodium 146 mmol/L (135-145)
--- NOTE | 2025-01-26 13:53 | P.PNIM_ITS ---
Subjective Subjective Date of Service: 01/26/25 Interval History: seen and evaluated this morning dropping of Hb to 7.3 bloody mixed stool in rectal tube she is alert and interactive low potassium at 2.6 Review of Systems Review of Systems: Yes all other systems are reviewed and are negative Physical Exam 2 Vital Signs: Vital Signs: Last Vital Signs Temp 198.8 F H 01/26/25 11:20 Pulse 85 01/26/25 11:32 Resp 20 01/26/25 11:32 BP 140/60 H 01/26/25 11:20 Pulse Ox 98 01/26/25 11:20 O2 Del Method Nasal Cannula 01/26/25 11:20 O2 Flow Rate 2 01/26/25 11:20 FiO2 26 01/25/25 05:00 BMI result Body Mass Index 26.6 Const: Other: Constitutional : Awake, interactive, not in distress Neck : Normal inspection, Supple Cardiovascular : RRR, no JVP, no lower extremity edema Respiratory : good bilateral air entry, no crackles, wheezes or rhonchi, on 2L Gastrointestinal: soft, lax, Normal bowel sounds, Non tender, rectal tube in place with bloody mixed stool Skin : Warm, Dry Neurological : Alert & oriented to self and place, No focal deficit Objective Data Active Medications Albuterol/Ipratropium (Albuterol/Iprat 2.5/0.5mg 3 Ml Ampul.Neb) 3 ml INHALE RQ4H WHILE AWAKE [facility] Last Admin: 01/26/25 11:31 Dose: 3 ml Documented By: REINALDO Clonidine (Clonidine 0.2 Mg Patch.Tdwk) 0.2 mg TRANSDERMA Sa@0900 [facility]; Protocol Last Admin: 01/25/25 17:59 Dose: 0.2 mg Documented By: CHASE Dextrose (Dextrose 50 % 25 Gm/50 Ml Syringe) 25 gm IVPUSH Q15M PRN; Protocol PRN Reason: per Hypoglycemia Standing Ord. Last Admin: 01/25/25 03:11 Dose: 25 gm Documented By: PRINCE Comments: per provider Glucose (Glucose Gel 15 Gm Gel..Gram.) 15 gm PO Q15M PRN; Protocol PRN Reason: per Hypoglycemia Standing Ord. Dextrose (D5w) 1,000 mls @ 75 mls/hr IVCONT .[id number] [facility] Last Admin: 01/26/25 13:39 Dose: 75 mls/hr Documented By: PEARL Insulin Human Lispro (Insulin Lispro 100 Unit/Ml 3 Ml Vial) 0 unit SUBCUT Q6H [facility]; Protocol Last Admin: 01/26/25 12:19 Dose: 4 unit Documented By: PEARL Metoprolol Tartrate (Metoprolol Tartrate 5 Mg/5 Ml Vial) 5 mg IVPUSH Q6H PRN; Protocol PRN Reason: SBP > 160 Last Admin: 01/25/25 15:57 Dose: 5 mg Documented By: CHASE Nystatin (Nystatin Powder 15 Gm Bottle) 1 appl TOPICAL TID [facility]; Protocol Last Admin: 01/26/25 13:42 Dose: 1 appl Documented By: PEARL Ondansetron HCl (Ondansetron Hcl 4 Mg/2 Ml Vial) 4 mg IVPUSH Q8H PRN PRN Reason: Nausea and Vomiting Sodium Chloride (0.9 % Sodium Chloride Flush 3 Ml Syringe) 3 ml IVFLUSH QSHIFT [facility] Last Admin: 01/26/25 13:41 Dose: 3 ml Documented By: PEARL Labs 01/26/25 06:55 01/26/25 13:03 Labs: Laboratory Results - last 24 hr 01/25/25 01/25/25 01/26/25 18:09 23:42 05:55 MCV MCH MCHC RDW Plt Count MPV Immature Gran % (Auto) Neut % (Auto) Lymph % (Auto) [place] % (Auto) Eos % (Auto) Baso % (Auto) Lymph # (Auto) [place] # (Auto) Eos # (Auto) Baso # (Auto) Abs Immat Gran (auto) Absolute Neuts (auto) Absolute Nucleated RBC Nucleated RBC % (auto) Anion Gap Estim Creat Clear Calc Estimated GFR POC Glucose 203 H 159 H 216 H Random Glucose Calcium Phosphorus Magnesium Albumin 01/26/25 01/26/25 01/26/25 06:55 12:19 13:03 MCV 91.1 MCH 29.4 MCHC 32.3 RDW 19.2 H Plt Count 429 H MPV 10.3 Immature Gran % (Auto) 2.5 H Neut % (Auto) 75.4 H Lymph % (Auto) 16.0 L [place] % (Auto) 5.6 Eos % (Auto) 0.3 Baso % (Auto) 0.2 Lymph # (Auto) 1.0 L [place] # (Auto) 0.4 Eos # (Auto) 0.0 Baso # (Auto) 0.0 Abs Immat Gran (auto) 0.16 H Absolute Neuts (auto) 4.9 Absolute Nucleated RBC 0.000 Nucleated RBC % (auto) 0.0 Anion Gap 13 18 Estim Creat Clear Calc 77.1 77.1 Estimated GFR > 60 > 60 POC Glucose 220 H Random Glucose 198 H 241 H Calcium 7.7 L 7.5 L Phosphorus 2.0 L Magnesium 2.4 Albumin 2.9 L Microbiology Microbiology Results: Microbiology 01/21/25 04:02 Blood Culture - Final Blood - Venous No growth after 5 days. 01/21/25 04:02 Blood Culture - Final Blood - Venous No growth after 5 days. Assessment and Plan (1) CVA (cerebral vascular accident): Status: Acute (2) Hemorrhagic shock: Status: Acute (3) Acute blood loss anemia: Status: Acute (4) GI bleed: Status: Acute (5) Encephalopathy acute: Status: Acute (6) Cardiogenic shock: Status: Acute (7) Acute hypoxic respiratory failure: Status: Acute Plan Assessment: 59-year-old lady with underlying CKD and diabetes mellitus admitted with acute hypoxic respiratory failure with unclear etiology with progressive respiratory distress requiring intubation 01/16/2025. acute blood loss anemia secondary to lower GI bleed. Status post embolization on 01/22/2025. Extubated 01/24/2025. Acute toxic metabolic Encephalopathy of unclear etiology improving MRI brain with small acute right occipital infarct and stigmata of prior CVAs with moderate changes of small vessel ischemia and numerous old lacunar type infarcts in the anterior gangliocapsular regions and left thalamus. Hemorrhagic shock resolved, titrated off pressor support Acute hypoxic respiratory failure requiring ventilatory support suspected PNA on admission, off Abx per ICU extubated 01/24/2025 likely a result of hemorrhagic shock. Acute renal failure with metabolic acidosis resolved restart Sodium bicarb Acute Hypernatremia Continue D5W Improving Continue to monitor renal indices and urine output. Acute lower GI bleed with acute blood loss anemia improved initially after 2 units PRBCs Tagged red cell scan was positive on 01/21/2025 status post embolization on 01/22/2025 Successful embolization of active bleeding identified from branches of the inferior mesenteric artery supplying the proximal sigmoid colon. Having red blood with stool Hb dropped to 7.3, to give 1 unit PRBCs to get GI reeval Might need a repeat Tagged RBCs study if continuos transfusion threshold hemoglobin of 8 Prophylaxis: Pneumatic compression Diet: TEST AND RESEARCH REACTOR OPERATOR rec NDD1 w Honey thick liquids The patient will need overnight hospital stay for treatment of blood loss anemia , pending GI reevaluation and possible need for intervention Quality Stroke Does the patient have a stroke diagnosis?: No VTE Prior VTE?: No VTE Risk Level:: Medical - moderate - high VTE Device Contraindication: N/A - Device Ordered VTE Drug Contraindication: N/A - Med Ordered
--- NOTE | 2025-01-26 13:54 | MHC.SL.SWA ---
Risk of Aspiration Due to: s/p extubation & CVA Dysphasia Diet Status: UPGRADE Liquid Consistency and Strategies for Safe Swallow: Liquid Intake Recommendation: Honey Thick Liquid Intake Strategies: TEASPOON ONLY Solid Food Consistency: Dietary Recommendations: Pureed (NDD1) Oral Medication Intake: Crushed with Puree Please contact the pharmacy regarding appropriate crushable or liquid drug formulations that are available whenever modified delivery is recommended. Compensatory Strategies and Precautions to be Taken for Safe Swallow: Sitting Upright (90 deg) No Straw Liquids from Spoon Small Bites and Sips Rate of Ingestion Change Oral Check Supervision While Eating and Drinking for Safe Swallow: Total Assistance (1:1) Foods to Avoid: Swallowing Recommended Treatments: Compens. Strategy Educat. Recommendation for Speech: Inpatient Speech Therapy Comment: Recommend UPGRADE to PUREE solids (NDD1) and HONEY THICK liquids ([place] ONLY). Pills CRUSHED in PUREE. Pt requires 1-1 assist. FLATWORK SUPERVISOR to re-evaluate on Saturday 01/27 to monitor toleration of diet and upgrade if/when warranted. Curator Clinican/Clinical Fellow: No Supervisory Statement: I have reviewed and agree with the student/clinical fellow's documentation: N/A Speech Language Pathologist: Monik Mckeon M.A., CCC-FLATWORK SUPERVISOR
[2025-01-26 15:21] LABS: Hematocrit 22.9 % (37.0-47.0); Hemoglobin 7.4 g/dl (12.0-16.0); Mean Corpuscular HGB Conc 32.3 g/dl (31.0-35.0); Mean Corpuscular Hemoglobin 29.5 pg (27.0-33.0); Mean Corpuscular Volume 91.2 fL (80.0-98.0); Mean Platelet Volume 10.5 fL (9.4-12.3); Platelet Count 450 X10*3/uL (160-400); Red Blood Count 2.51 X10*6/uL (4.20-5.50); Red Cell Distribution Width 19.1 % (11.0-16.0); White Blood Count 6.6 X10*3/uL (4.8-10.8)
[2025-01-26] MEDS: Sodium Bicarbonate 650 MG TABLET PO ×2 (16:00→20:29)
[2025-01-26 17:41] LABS: Glucose, Whole Blood 330 mg/dL (60-115)
[2025-01-26 22:18] LABS: Glucose, Whole Blood 247 mg/dL (60-115)
[2025-01-26] MEDS: Insulin Glargine,Hum.rec.anlog 100 UNIT/ML 10 ML VIAL 10 UNIT SUBCUT (22:40)
[2025-01-27] VITALS (9 sets, daily range): BP systolic 111–151; BP diastolic 53–71; PULSE 85–102; RESP 16–18; TEMP 36.6–37.4; O2SAT 94–98; BMI 26.2
[2025-01-27 01:07] LABS: Glucose, Whole Blood 219 mg/dL (60-115)
[2025-01-27] MEDS: Dextrose 5 % 1,000 ML 75 ML IVCONT (03:37)
[2025-01-27 04:15] LABS: Appearance Urine Cloudy; Color Urine Yellow; Glucose Urine UA >=1000 mg/dL (Negative); Leukocyte Esterase Urine Small (1+) (Negative); Nitrite Urine Negative (Negative); PH 5.5 (5.0-9.0); UMIC TRIGGER UACC YES; Urine Blood Small (1+) (Negative); Urine Ketones Trace mg/dL (Negative); Urine Protein 100 (2+) mg/dL (Neg-Trace)
--- NOTE | 2025-01-27 04:24 | PM.EVENT ---
Event Note Date of Service: 01/27/25 Event Note: As per the nurse, patient with slurred speech. Unclear if it is baseline or new in onset. No facial droop. Noted recent MRI. Will obtain CT head without contrast Time Spent With Patient Time: Total time managing care of this patient today ____ minutes.
[2025-01-27 04:30] LABS: Bacteria Urine 4+ (None Seen); Hyaline Casts Urine 0-2 /LPF (0-2); RBC Urine 0-2 /HPF (0-2); Squamous Epithelial Cell Urine 0-2 /HPF (0-2); UACC Culture Trigger YES; WBC Urine 21-50 /HPF (0-5)
[2025-01-27 04:34] LABS: Glucose, Whole Blood 232 mg/dL (60-115)
--- NOTE | 2025-01-27 05:53 | PC.NURSE ---
Patient noted to have slur in speech. Patient alert and oriented x1. Patient noted to have previous history of CVAs. Easily arousable to voice. Nods to yes and no questions. No reports of pain. Vitals and blood sugar taken. See patient charting. Dr. Drake notified. STAT head CT ordered and obtained.
[2025-01-27 06:24] LABS: Glucose, Whole Blood 236 mg/dL (60-115)
[2025-01-27 07:02] LABS: Hematocrit 25.6 % (37.0-47.0); Hemoglobin 8.7 g/dl (12.0-16.0); Mean Corpuscular Hemoglobin 30.5 pg (27.0-33.0); Mean Corpuscular Volume 89.8 fL (80.0-98.0); Platelet Count 423 X10*3/uL (160-400); Red Blood Count 2.85 X10*6/uL (4.20-5.50); Red Cell Distribution Width 17.2 % (11.0-16.0); White Blood Count 7.6 X10*3/uL (4.8-10.8)
[2025-01-27 07:18] LABS: Blood Urea Nitrogen 24 mg/dL (9-16); Calcium 7.9 mg/dL (8.4-10.2); Creatinine Clr Calc Pharmacy 75.5; Estimated Glomerular Filt Rate > 60; Glucose Random 219 mg/dL (60-115)
[2025-01-27] MEDS: Albuterol/Iprat 2.5/0.5MG 3 ML AMPUL.NEB INHALE ×2 (07:44→21:16)
[2025-01-27 07:53] LABS: Anion Gap 12 (12-20); Carbon Dioxide 20 mmol/L (22-29); Chloride 110 mmol/L (96-108); Potassium 2.6 mmol/L (3.3-5.1); Sodium 139 mmol/L (135-145)
[2025-01-27 07:55] LABS: Band Neutrophils Percent 5 % (3-5); Lymphocytes Absolute Manual 0.8 X10*3/uL (1.2-4.9); Lymphocytes Percent Manual 11 % (20-40); Metamyelocytes Absolute 0.1 X10*3/uL; Metamyelocytes Percent 1 %; Monocytes Absolute Manual 0.3 X10*3/uL (0.1-1.2); Monocytes Percent Manual 4 % (2-11); Myelocytes Absolute 0.1 X10*/uL; Myelocytes Percent 1 %; Neutrophils Absolute Manual 6.3 X10*3/uL (2.0-8.3); Neutrophils Percent Manual 78 % (45-73)
[2025-01-27 07:56] LABS: RBC Morphology NOTED
[2025-01-27 07:57] LABS: Platelet Estimate SLIGHTLY INCREASED (NORMAL)
[2025-01-27 07:58] LABS: Hypochromasia 1+ (5-14) /OIF; Microcytosis 1+ (5-14) /OIF; Platelet Morphology Comment NORM
[2025-01-27 09:10] LABS: Glucose, Whole Blood 207 mg/dL (60-115)
[2025-01-27] MEDS: Insulin Lispro 100 UNIT/ML 3 ML VIAL SUBCUT ×4 (09:19→21:42)
[2025-01-27] MEDS: Sodium Bicarbonate 650 MG TABLET PO ×2 (09:20→21:42)
[2025-01-27] MEDS: Potassium Chloride/H20 10 MEQ/100 ML PIGGYBACK 100 MEQ IV ×4 (09:20→15:05)
[2025-01-27] MEDS: 0.9 % Sodium Chloride Flush 3 ML SYRINGE IVFLUSH ×2 (09:27→21:42)
--- NOTE | 2025-01-27 11:17 | P.PNIM_ITS ---
Subjective Subjective Date of Service: 01/27/25 Interval History: Seen and evaluated more alert and interactive Has rectal tube placed again overnight for reported blood per rectum stool brownish in color today asking for water Na improved to 130s no other events Review of Systems Review of Systems: Yes all other systems are reviewed and are negative Physical Exam 2 Vital Signs: Vital Signs: Last Vital Signs Temp 98.5 F 01/27/25 07:15 Pulse 85 01/27/25 07:44 Resp 18 01/27/25 07:44 BP 145/69 H 01/27/25 07:15 Pulse Ox 96 01/27/25 07:15 O2 Del Method Room Air 01/27/25 07:15 O2 Flow Rate 2 01/26/25 11:20 FiO2 26 01/25/25 05:00 BMI result Body Mass Index 26.2 Const: Other: Constitutional : Awake, interactive, not in distress Neck : Normal inspection, Supple Cardiovascular : RRR, no JVP, no lower extremity edema Respiratory : good bilateral air entry, no crackles, wheezes or rhonchi, on 2L Gastrointestinal: soft, lax, Normal bowel sounds, Non tender, rectal tube in place with brownish stool Skin : Warm, Dry Neurological : Alert & oriented to self and place, No focal deficit Objective Data Active Medications Albuterol/Ipratropium (Albuterol/Iprat 2.5/0.5mg 3 Ml Ampul.Neb) 3 ml INHALE RQ4H WHILE AWAKE [facility] Last Admin: 01/27/25 07:44 Dose: 3 ml Documented By: BRIANNE Clonidine (Clonidine 0.2 Mg Patch.Tdwk) 0.2 mg TRANSDERMA Sa@0900 [facility]; Protocol Last Admin: 01/25/25 17:59 Dose: 0.2 mg Documented By: CHASE Dextrose (Dextrose 50 % 25 Gm/50 Ml Syringe) 25 gm IVPUSH Q15M PRN; Protocol PRN Reason: per Hypoglycemia Standing Ord. Last Admin: 01/25/25 03:11 Dose: 25 gm Documented By: PRINCE Comments: per provider Glucose (Glucose Gel 15 Gm Gel..Gram.) 15 gm PO Q15M PRN; Protocol PRN Reason: per Hypoglycemia Standing Ord. Potassium Chloride (Potassium Chloride/H20) 10 meq in 100 mls @ 100 mls/hr IV Q1H [facility] Stop: 01/27/25 12:14 Last Infusion: 01/27/25 10:37 Dose: Infused Documented By: EVELIN Insulin Glargine (Insulin Glargine,Hum.Rec.Anlog 100 Unit/Ml 10 Ml Vial) 10 unit SUBCUT BEDTIME [facility] Last Admin: 01/26/25 22:40 Dose: 10 unit Documented By: LILI Insulin Human Lispro (Insulin Lispro 100 Unit/Ml 3 Ml Vial) 0 unit SUBCUT QIDACHS [facility]; Protocol Last Admin: 01/27/25 09:19 Dose: 4 unit Documented By: EVELIN Metoprolol Tartrate (Metoprolol Tartrate 5 Mg/5 Ml Vial) 5 mg IVPUSH Q6H PRN; Protocol PRN Reason: SBP > 160 Last Admin: 01/25/25 15:57 Dose: 5 mg Documented By: CHASE Nystatin (Nystatin Powder 15 Gm Bottle) 1 appl TOPICAL TID [facility]; Protocol Last Admin: 01/26/25 20:31 Dose: 1 appl Documented By: LILI Ondansetron HCl (Ondansetron Hcl 4 Mg/2 Ml Vial) 4 mg IVPUSH Q8H PRN PRN Reason: Nausea and Vomiting Sodium Bicarbonate (Sodium Bicarbonate 650 Mg Tablet) 650 mg PO BID [facility] Last Admin: 01/27/25 09:20 Dose: 650 mg Documented By: EVELIN Sodium Chloride (0.9 % Sodium Chloride Flush 3 Ml Syringe) 3 ml IVFLUSH QSHIFT [facility] Last Admin: 01/27/25 09:27 Dose: 3 ml Documented By: EVELIN Labs 01/27/25 06:43 01/27/25 06:43 Labs: Laboratory Results - last 24 hr 01/26/25 01/26/25 01/26/25 12:19 13:03 14:39 MCV 91.2 MCH 29.5 MCHC 32.3 RDW 19.1 H Plt Count 450 H MPV 10.5 Immature Gran % (Auto) Neut % (Auto) Lymph % (Auto) [place] % (Auto) Eos % (Auto) Baso % (Auto) Lymph # (Auto) [place] # (Auto) Eos # (Auto) Baso # (Auto) Abs Immat Gran (auto) Absolute Neuts (auto) Absolute Nucleated RBC 0.000 Nucleated RBC % (auto) 0.0 Neutrophils % (Manual) Band Neutrophils % Lymphocytes % (Manual) Monocytes % (Manual) Metamyelocytes % Myelocytes % Abs Neuts (Manual) Lymphocytes # (Manual) Monocytes # (Manual) Metamyelocytes # Myelocytes # Platelet Estimate Plt Morphology Comment RBC Morphology Hypochromasia Microcytosis Anion Gap 18 Estim Creat Clear Calc 77.1 Estimated GFR > 60 POC Glucose 220 H Random Glucose 241 H Calcium 7.5 L Urine Color Urine Appearance Urine pH Ur Specific [place] Urine Protein Urine Glucose (UA) Urine Ketones Urine Blood Urine Nitrite Ur Leukocyte Esterase Urine RBC Urine WBC Ur Squamous Epith Cells Urine Bacteria Hyaline Casts Blood Type B Positive Antibody Screen NEGATIVE Crossmatch See Detail 01/26/25 01/26/25 01/27/25 17:36 22:13 01:03 MCV MCH MCHC RDW Plt Count MPV Immature Gran % (Auto) Neut % (Auto) Lymph % (Auto) [place] % (Auto) Eos % (Auto) Baso % (Auto) Lymph # (Auto) [place] # (Auto) Eos # (Auto) Baso # (Auto) Abs Immat Gran (auto) Absolute Neuts (auto) Absolute Nucleated RBC Nucleated RBC % (auto) Neutrophils % (Manual) Band Neutrophils % Lymphocytes % (Manual) Monocytes % (Manual) Metamyelocytes % Myelocytes % Abs Neuts (Manual) Lymphocytes # (Manual) Monocytes # (Manual) Metamyelocytes # Myelocytes # Platelet Estimate Plt Morphology Comment RBC Morphology Hypochromasia Microcytosis Anion Gap Estim Creat Clear Calc Estimated GFR POC Glucose 330 H 247 H 219 H Random Glucose Calcium Urine Color Urine Appearance Urine pH Ur Specific [place] Urine Protein Urine Glucose (UA) Urine Ketones Urine Blood Urine Nitrite Ur Leukocyte Esterase Urine RBC Urine WBC Ur Squamous Epith Cells Urine Bacteria Hyaline Casts Blood Type Antibody Screen Crossmatch 01/27/25 01/27/25 01/27/25 04:03 04:30 06:14 MCV MCH MCHC RDW Plt Count MPV Immature Gran % (Auto) Neut % (Auto) Lymph % (Auto) [place] % (Auto) Eos % (Auto) Baso % (Auto) Lymph # (Auto) [place] # (Auto) Eos # (Auto) Baso # (Auto) Abs Immat Gran (auto) Absolute Neuts (auto) Absolute Nucleated RBC Nucleated RBC % (auto) Neutrophils % (Manual) Band Neutrophils % Lymphocytes % (Manual) Monocytes % (Manual) Metamyelocytes % Myelocytes % Abs Neuts (Manual) Lymphocytes # (Manual) Monocytes # (Manual) Metamyelocytes # Myelocytes # Platelet Estimate Plt Morphology Comment RBC Morphology Hypochromasia Microcytosis Anion Gap Estim Creat Clear Calc Estimated GFR POC Glucose 232 H 236 H Random Glucose Calcium Urine Color Yellow Urine Appearance Cloudy Urine pH 5.5 Ur Specific [place] 1.020 Urine Protein 100 (2+) H Urine Glucose (UA) >=1000 H Urine Ketones Trace Urine Blood Small (1+) H Urine Nitrite Negative Ur Leukocyte Esterase Small (1+) H Urine RBC 0-2 Urine WBC 21-50 H Ur Squamous Epith Cells 0-2 Urine Bacteria 4+ Hyaline Casts 0-2 Blood Type Antibody Screen Crossmatch 01/27/25 01/27/25 06:43 09:06 MCV 89.8 MCH 30.5 MCHC 34.0 RDW 17.2 H Plt Count 423 H MPV 10.0 Immature Gran % (Auto) Cancelled Neut % (Auto) Cancelled Lymph % (Auto) Cancelled [place] % (Auto) Cancelled Eos % (Auto) Cancelled Baso % (Auto) Cancelled Lymph # (Auto) Cancelled [place] # (Auto) Cancelled Eos # (Auto) Cancelled Baso # (Auto) Cancelled Abs Immat Gran (auto) Cancelled Absolute Neuts (auto) Cancelled Absolute Nucleated RBC 0.000 Nucleated RBC % (auto) 0.0 Neutrophils % (Manual) 78 H Band Neutrophils % 5 Lymphocytes % (Manual) 11 L Monocytes % (Manual) 4 Metamyelocytes % 1 Myelocytes % 1 Abs Neuts (Manual) 6.3 Lymphocytes # (Manual) 0.8 L Monocytes # (Manual) 0.3 Metamyelocytes # 0.1 Myelocytes # 0.1 Platelet Estimate SLIGHTLY INCREASED Plt Morphology Comment NORM RBC Morphology NOTED Hypochromasia 1+ (5-14) Microcytosis 1+ (5-14) Anion Gap 12 Estim Creat Clear Calc 75.5 Estimated GFR > 60 POC Glucose 207 H Random Glucose 219 H Calcium 7.9 L Urine Color Urine Appearance Urine pH Ur Specific [place] Urine Protein Urine Glucose (UA) Urine Ketones Urine Blood Urine Nitrite Ur Leukocyte Esterase Urine RBC Urine WBC Ur Squamous Epith Cells Urine Bacteria Hyaline Casts Blood Type Antibody Screen Crossmatch Microbiology Microbiology Results: Microbiology 01/17/25 15:09 Fungal Identification - Preliminary Bronch Lll Pratibha albicans Assessment and Plan (1) CVA (cerebral vascular accident): Status: Acute (2) Hemorrhagic shock: Status: Acute (3) Acute blood loss anemia: Status: Acute (4) GI bleed: Status: Acute (5) Encephalopathy acute: Status: Acute (6) Acute hypoxic respiratory failure: Status: Acute Plan Assessment: 59-year-old lady with underlying CKD and diabetes mellitus admitted with acute hypoxic respiratory failure with unclear etiology with progressive respiratory distress requiring intubation 01/16/2025. acute blood loss anemia secondary to lower GI bleed. Status post embolization on 01/22/2025. Extubated 01/24/2025. Acute lower GI bleed with acute blood loss anemia improved initially after 2 units PRBCs Tagged red cell scan was positive on 01/21/2025 status post embolization on 01/22/2025 Successful embolization of active bleeding identified from branches of the inferior mesenteric artery supplying the proximal sigmoid colon. Having red blood with stool while on rectal tube 01/26 Hb improved to 8.4 after 1 unit PRBCs Might need a repeat Tagged RBCs study if continuos to pass bloody stool, now having brown colored stool after removing the rectal tube 01/[address] Wheeler for reevaluation transfusion threshold hemoglobin of 8 Acute Hypernatremia resolved on D5W, DC fluids Continue to monitor renal indices and urine output. Acute toxic metabolic Encephalopathy likely 2/2 acute stroke , improving MRI brain with small acute right occipital infarct and stigmata of prior CVAs with moderate changes of small vessel ischemia and numerous old lacunar type infarcts in the anterior gangliocapsular regions and left thalamus. Aspirin on hold given major GIB Hemorrhagic shock resolved, titrated off pressor support in ICU monitor for rebleeding Acute hypoxic respiratory failure requiring ventilatory support likely a result of hemorrhagic shock. suspected PNA on admission, off Abx per ICU extubated 01/24/2025 weaned off to RA now Acute renal failure with metabolic acidosis resolved restart Sodium bicarb physical deconditioning post ICU stay PT eval Hypotension Placed on Clonidine patch in ICU, to DC patient tends to have orthostatic hypotension with supine hypertension monitor for recurrent bleeding as well Metoprolol IV PRN ordered Insulin-dependent type 2 diabetes Sliding-scale insulin, Lantus 10 units Diabetic diet; FOURCHETTE SEWER following Prophylaxis: Pneumatic compression Diet: FOURCHETTE SEWER rec NDD1 w Honey thick liquids The patient will need overnight hospital stay for treatment of blood loss anemia , pending GI reevaluation and possible need for intervention Quality Stroke Does the patient have a stroke diagnosis?: No VTE Prior VTE?: No VTE Risk Level:: Medical - moderate - high VTE Device Contraindication: N/A - Device Ordered VTE Drug Contraindication: N/A - Med Ordered
[2025-01-27] MEDS: Nystatin Powder 15 GM BOTTLE 1 APPL TOPICAL ×2 (11:19→15:07)
[2025-01-27 12:16] LABS: Glucose, Whole Blood 188 mg/dL (60-115)
--- NOTE | 2025-01-27 12:17 | MHC.CLN ---
F/U PT EXTUBATED AND TRANSFERRED TO MEDICAL FLOOR REMAINED NPO DIET ADVANCED PER MASH FILTER PRESS OPERATOR TO 2000DM PUREED WITH HT LIQ ON 01/26/25 MONITOR PO INTAKE CLOSELY WILL ADD NUTRITION SUPPLEMENT IF PO INTAKE IS POOR <25%
[2025-01-27 13:47] LABS: Anion Gap 13 (12-20); Blood Urea Nitrogen 29 mg/dL (9-16); Calcium 7.8 mg/dL (8.4-10.2); Carbon Dioxide 19 mmol/L (22-29); Chloride 111 mmol/L (96-108); Creatinine Clr Calc Pharmacy 53.2; Estimated Glomerular Filt Rate 55; Glucose Random 218 mg/dL (60-115); Potassium 3.8 mmol/L (3.3-5.1); Sodium 139 mmol/L (135-145)
--- NOTE | 2025-01-27 15:20 | MHC.CM.PN ---
EMR reviewed and per MD rounds, pt is not medically cleared for discharge due to management of blood loss anemia , pending GI re-eval.
--- NOTE | 2025-01-27 16:18 | MHC.SL.SWA ---
Speech Pathologist Impression: Moderate oral phase dysphagia s/p CVA, mild pharyngeal phase dysphagia s/p CVA and recent extubation Risk of Aspiration Due to: Oromotor weakness d/t CVA Difficulty initiating volitional movements of lips, tongue, jaw and throat Dysphasia Diet Status: Recommend PUREE solids (NDD1) and Honey thickened liquids. Pills CRUSHED in PUREE. Pt requires 1-1 assist. AUTOMATIC COIL MACHINE OPERATOR to re-evaluate on Saturday 01/27 to monitor toleration of diet and upgrade if/when warranted. Liquid Consistency and Strategies for Safe Swallow: Liquid Intake Recommendation: Honey Thick Liquid Intake Strategies: Solid Food Consistency: Dietary Recommendations: Pureed (NDD1) Additional Modifications to Solid Foods: Oral Medication Intake: Crushed with Puree Please contact the pharmacy regarding appropriate crushable or liquid drug formulations that are available whenever modified delivery is recommended. Compensatory Strategies and Precautions to be Taken for Safe Swallow: Sitting Upright (90 deg) No Straw Liquids from Spoon Small Bites and Sips Rate of Ingestion Change Oral Check Supervision While Eating and Drinking for Safe Swallow: Total Assistance (1:1) Foods to Avoid: Swallowing Recommended Treatments: Compens. Strategy Educat. Recommendation for Speech: Inpatient Speech Therapy Comment: Pt seen for dysphagia treatment, pt alert and non-verbally communicative. Microeconomics Professor present, pt daughter at bedside. AUTOMATIC COIL MACHINE OPERATOR provided review of current recommendations and assessed pt OM mobility. Pt able to depress/elevate jaw volitionally, pt had moderate difficulty achieving rotary motion of mandibular chewing pattern, lingual protrusion adequate with R sided lateralization. Pt unable to swallow volitionally; tongue pumping observed. Pt attempted to produce voice but was primarily aphonic, with three instances of low /ah/ upon attempt (s/p trials of NTL to assess voice quality, which was absent of wetness). Pt requested 'aqua' by mouthing word. Pt trialed with water by cup sips, audible gulping swallow and anterior loss occurred. Pt trialed with NTL, with improved timing of pharyngeal swallow, but struggled with oral phase in pursing lips to sip and containing fluid. No overt s/s of aspiration observed but pt is not ready for upgrade d/t significance of oral phase difficulties. Pt deficits considered to be apraxic as visible groping of speech/oral musculature and inconsistent phonation characterize both motor speech and swallow functioning. wet trimmer report variability in pt motor speech production as well. AUTOMATIC COIL MACHINE OPERATOR recommended pt continue with skilled ST intervention upon d/c to address dysphagia and speech/communication. Pt and daughter in agreement. Frequency/Duration: Date Range for Service Req: Timeline to reassess: Test Equipment Mechanic Clinican/Clinical Fellow: No Supervisory Statement: I have reviewed and agree with the student/clinical fellow's documentation: N/A Speech Language Pathologist: Anne Crowe M.S., CCC-AUTOMATIC COIL MACHINE OPERATOR
[2025-01-27 18:41] LABS: Glucose, Whole Blood 336 mg/dL (60-115)
[2025-01-27 20:20] LABS: Glucose, Whole Blood 234 mg/dL (60-115)
[2025-01-27] MEDS: Insulin Glargine,Hum.rec.anlog 100 UNIT/ML 10 ML VIAL 10 UNIT SUBCUT (21:42)
[2025-01-28] VITALS (10 sets, daily range): BP systolic 115–164; BP diastolic 56–74; PULSE 90–100; RESP 16–20; TEMP 36.4–37.2; O2SAT 94–100; BMI 26.6
[2025-01-28 01:25] LABS: Glucose, Whole Blood 39 mg/dL (60-115)
[2025-01-28] MEDS: Glucose Gel 15 GM GEL..GRAM. PO (01:25)
[2025-01-28 01:49] LABS: Glucose, Whole Blood 43 mg/dL (60-115)
[2025-01-28 02:17] LABS: Glucose, Whole Blood 85 mg/dL (60-115)
[2025-01-28 03:26] LABS: Glucose, Whole Blood 162 mg/dL (60-115)
[2025-01-28] MEDS: Nystatin Powder 15 GM BOTTLE 1 APPL TOPICAL ×4 (03:29→21:06)
[2025-01-28 06:50] LABS: Glucose, Whole Blood 225 mg/dL (60-115)
[2025-01-28 06:50] LABS: Hematocrit 25.4 % (37.0-47.0); Hemoglobin 8.7 g/dl (12.0-16.0); Mean Corpuscular HGB Conc 34.3 g/dl (31.0-35.0); Mean Corpuscular Hemoglobin 30.2 pg (27.0-33.0); Mean Corpuscular Volume 88.2 fL (80.0-98.0); Mean Platelet Volume 9.9 fL (9.4-12.3); Platelet Count 401 X10*3/uL (160-400); Red Blood Count 2.88 X10*6/uL (4.20-5.50); Red Cell Distribution Width 17.2 % (11.0-16.0); White Blood Count 6.3 X10*3/uL (4.8-10.8)
[2025-01-28 07:02] LABS: Blood Urea Nitrogen 26 mg/dL (9-16); Calcium 7.7 mg/dL (8.4-10.2); Creatinine Clr Calc Pharmacy 73.4; Estimated Glomerular Filt Rate > 60; Glucose Random 238 mg/dL (60-115)
[2025-01-28 07:22] LABS: Anion Gap 11 (12-20); Carbon Dioxide 19 mmol/L (22-29); Chloride 110 mmol/L (96-108); Potassium 2.4 mmol/L (3.3-5.1); Sodium 138 mmol/L (135-145)
[2025-01-28 07:38] LABS: Glucose, Whole Blood 179 mg/dL (60-115)
[2025-01-28 07:57] LABS: Magnesium 2.1 mg/dL (1.6-2.6)
[2025-01-28] MEDS: Insulin Lispro 100 UNIT/ML 3 ML VIAL SUBCUT ×3 (07:58→17:15)
[2025-01-28] MEDS: Potassium Chloride/H20 10 MEQ/100 ML PIGGYBACK 100 MEQ IV ×4 (07:58→14:15)
[2025-01-28] MEDS: 0.9 % Sodium Chloride Flush 3 ML SYRINGE IVFLUSH ×2 (07:59→21:39)
[2025-01-28] MEDS: Sodium Bicarbonate 650 MG TABLET PO ×2 (07:59→21:01)
[2025-01-28 08:20] LABS: Atypical Lymph Absolute Manual 0.1 x10*3/uL; Atypical Lymphs Percent Manual 1 % (0-6); Band Neutrophils Percent 9 % (3-5); Basophils Abs Manual 0.1 X10*3/uL (0.0-0.2); Basophils Percent Manual 1 % (0-2); Eosinophils Absolute Manual 0.1 X10*3/uL (0.0-0.4); Eosinophils Percent Manual 1 % (0-4); Lymphocytes Absolute Manual 1.1 X10*3/uL (1.2-4.9); Lymphocytes Percent Manual 18 % (20-40); Metamyelocytes Absolute 0.1 X10*3/uL; Metamyelocytes Percent 1 %; Monocytes Absolute Manual 0.4 X10*3/uL (0.1-1.2); Monocytes Percent Manual 6 % (2-11); Neutrophils Absolute Manual 4.5 X10*3/uL (2.0-8.3); Neutrophils Percent Manual 63 % (45-73)
[2025-01-28 08:26] LABS: Microcytosis 1+ (5-14) /OIF; Platelet Estimate SLIGHTLY INCREASED (NORMAL); Platelet Morphology Comment NORMAL; RBC Morphology NOTED; Schistocytes 1+ (0-2) /OIF
[2025-01-28] MEDS: Albuterol/Iprat 2.5/0.5MG 3 ML AMPUL.NEB INHALE ×4 (08:26→19:40)
[2025-01-28 08:28] LABS: Burr Cells 2+ (3-5) /OIF
--- NOTE | 2025-01-28 09:50 | P.PNIM_ITS ---
Subjective Subjective Date of Service: 01/28/25 Interval History: Seen and evaluated more alert and interactive Has rectal tube removed stool brownish in color today Low K of 2.4 no other events Review of Systems Review of Systems: Yes all other systems are reviewed and are negative Physical Exam 2 Vital Signs: Vital Signs: Last Vital Signs Temp 98.5 F 01/28/25 08:00 Pulse 90 01/28/25 08:26 Resp 18 01/28/25 08:26 BP 164/74 H 01/28/25 08:00 Pulse Ox 96 01/28/25 08:00 O2 Del Method Room Air 01/28/25 08:00 O2 Flow Rate 2 01/26/25 11:20 FiO2 26 01/25/25 05:00 BMI result Body Mass Index 26.6 Const: Other: Constitutional : Awake, interactive, not in distress Neck : Normal inspection, Supple Cardiovascular : RRR, no JVP, no lower extremity edema Respiratory : good bilateral air entry, no crackles, wheezes or rhonchi, on 2L Gastrointestinal: soft, lax, Normal bowel sounds, Non tender, rectal tube in place with brownish stool Skin : Warm, Dry Neurological : Alert & oriented to self and place, No focal deficit Objective Data Active Medications Albuterol/Ipratropium (Albuterol/Iprat 2.5/0.5mg 3 Ml Ampul.Neb) 3 ml INHALE RQ4H WHILE AWAKE [facility] Last Admin: 01/28/25 08:26 Dose: 3 ml Documented By: ABBY Dextrose (Dextrose 50 % 25 Gm/50 Ml Syringe) 25 gm IVPUSH Q15M PRN; Protocol PRN Reason: per Hypoglycemia Standing Ord. Last Admin: 01/25/25 03:11 Dose: 25 gm Documented By: PRINCE Comments: per provider Glucose (Glucose Gel 15 Gm Gel..Gram.) 15 gm PO Q15M PRN; Protocol PRN Reason: per Hypoglycemia Standing Ord. Last Admin: 01/28/25 01:25 Dose: 15 gm Documented By: ADRIEL Potassium Chloride (Potassium Chloride/H20) 10 meq in 100 mls @ 100 mls/hr IV Q1H [facility] Stop: 01/28/25 11:29 Last Admin: 01/28/25 07:58 Dose: 100 mls/hr Documented By: HO.[email or web address] Insulin Glargine (Insulin Glargine,Hum.Rec.Anlog 100 Unit/Ml 10 Ml Vial) 5 unit SUBCUT BEDTIME [facility] Insulin Human Lispro (Insulin Lispro 100 Unit/Ml 3 Ml Vial) 0 unit SUBCUT QIDACHS [facility]; Protocol Last Admin: 01/28/25 07:58 Dose: 2 unit Documented By: EVELIN Metoprolol Tartrate (Metoprolol Tartrate 5 Mg/5 Ml Vial) 5 mg IVPUSH Q6H PRN; Protocol PRN Reason: SBP > 160 Last Admin: 01/25/25 15:57 Dose: 5 mg Documented By: CHASE Nystatin (Nystatin Powder 15 Gm Bottle) 1 appl TOPICAL TID [facility]; Protocol Last Admin: 01/28/25 03:29 Dose: 1 appl Documented By: ADRIEL Ondansetron HCl (Ondansetron Hcl 4 Mg/2 Ml Vial) 4 mg IVPUSH Q8H PRN PRN Reason: Nausea and Vomiting Sodium Bicarbonate (Sodium Bicarbonate 650 Mg Tablet) 650 mg PO BID [facility] Last Admin: 01/28/25 07:59 Dose: 650 mg Documented By: EVELIN Sodium Chloride (0.9 % Sodium Chloride Flush 3 Ml Syringe) 3 ml IVFLUSH QSHIFT [facility] Last Admin: 01/28/25 07:59 Dose: 3 ml Documented By: EVELIN Labs 01/28/25 06:36 01/28/25 13:58 Labs: Laboratory Results - last 24 hr 01/27/25 01/27/25 01/27/25 11:31 13:26 18:36 MCV MCH MCHC RDW Plt Count MPV Immature Gran % (Auto) Neut % (Auto) Lymph % (Auto) [place] % (Auto) Eos % (Auto) Baso % (Auto) Lymph # (Auto) [place] # (Auto) Eos # (Auto) Baso # (Auto) Abs Immat Gran (auto) Absolute Neuts (auto) Absolute Nucleated RBC Nucleated RBC % (auto) Neutrophils % (Manual) Band Neutrophils % Lymphocytes % (Manual) Atypical Lymphs % (Man) Monocytes % (Manual) Eosinophils % (Manual) Basophils % (Manual) Metamyelocytes % Abs Neuts (Manual) Lymphocytes # (Manual) Atyp Lymphs # (Manual) Monocytes # (Manual) Eosinophils # (Manual) Basophils # (Manual) Metamyelocytes # Platelet Estimate Plt Morphology Comment RBC Morphology Microcytosis [place] Cells Schistocytes Anion Gap 13 Estim Creat Clear Calc 53.2 Estimated GFR 55 POC Glucose 188 H 336 H Random Glucose 218 H Calcium 7.8 L Magnesium 01/27/25 01/28/25 01/28/25 20:16 01:19 01:44 MCV MCH MCHC RDW Plt Count MPV Immature Gran % (Auto) Neut % (Auto) Lymph % (Auto) [place] % (Auto) Eos % (Auto) Baso % (Auto) Lymph # (Auto) [place] # (Auto) Eos # (Auto) Baso # (Auto) Abs Immat Gran (auto) Absolute Neuts (auto) Absolute Nucleated RBC Nucleated RBC % (auto) Neutrophils % (Manual) Band Neutrophils % Lymphocytes % (Manual) Atypical Lymphs % (Man) Monocytes % (Manual) Eosinophils % (Manual) Basophils % (Manual) Metamyelocytes % Abs Neuts (Manual) Lymphocytes # (Manual) Atyp Lymphs # (Manual) Monocytes # (Manual) Eosinophils # (Manual) Basophils # (Manual) Metamyelocytes # Platelet Estimate Plt Morphology Comment RBC Morphology Microcytosis [place] Cells Schistocytes Anion Gap Estim Creat Clear Calc Estimated GFR POC Glucose 234 H 39 L* 43 L* Random Glucose Calcium Magnesium 01/28/25 01/28/25 01/28/25 02:13 03:22 06:36 MCV 88.2 MCH 30.2 MCHC 34.3 RDW 17.2 H Plt Count 401 H MPV 9.9 Immature Gran % (Auto) Cancelled Neut % (Auto) Cancelled Lymph % (Auto) Cancelled [place] % (Auto) Cancelled Eos % (Auto) Cancelled Baso % (Auto) Cancelled Lymph # (Auto) Cancelled [place] # (Auto) Cancelled Eos # (Auto) Cancelled Baso # (Auto) Cancelled Abs Immat Gran (auto) Cancelled Absolute Neuts (auto) Cancelled Absolute Nucleated RBC 0.000 Nucleated RBC % (auto) 0.0 Neutrophils % (Manual) 63 Band Neutrophils % 9 H Lymphocytes % (Manual) 18 L Atypical Lymphs % (Man) 1 Monocytes % (Manual) 6 Eosinophils % (Manual) 1 Basophils % (Manual) 1 Metamyelocytes % 1 Abs Neuts (Manual) 4.5 Lymphocytes # (Manual) 1.1 L Atyp Lymphs # (Manual) 0.1 Monocytes # (Manual) 0.4 Eosinophils # (Manual) 0.1 Basophils # (Manual) 0.1 Metamyelocytes # 0.1 Platelet Estimate SLIGHTLY INCREASED Plt Morphology Comment NORMAL RBC Morphology NOTED Microcytosis 1+ (5-14) [place] Cells 2+ (3-5) Schistocytes 1+ (0-2) Anion Gap 11 L Estim Creat Clear Calc 73.4 Estimated GFR > 60 POC Glucose 85 162 H Random Glucose 238 H Calcium 7.7 L Magnesium 2.1 01/28/25 01/28/25 06:47 07:33 MCV MCH MCHC RDW Plt Count MPV Immature Gran % (Auto) Neut % (Auto) Lymph % (Auto) [place] % (Auto) Eos % (Auto) Baso % (Auto) Lymph # (Auto) [place] # (Auto) Eos # (Auto) Baso # (Auto) Abs Immat Gran (auto) Absolute Neuts (auto) Absolute Nucleated RBC Nucleated RBC % (auto) Neutrophils % (Manual) Band Neutrophils % Lymphocytes % (Manual) Atypical Lymphs % (Man) Monocytes % (Manual) Eosinophils % (Manual) Basophils % (Manual) Metamyelocytes % Abs Neuts (Manual) Lymphocytes # (Manual) Atyp Lymphs # (Manual) Monocytes # (Manual) Eosinophils # (Manual) Basophils # (Manual) Metamyelocytes # Platelet Estimate Plt Morphology Comment RBC Morphology Microcytosis [place] Cells Schistocytes Anion Gap Estim Creat Clear Calc Estimated GFR POC Glucose 225 H 179 H Random Glucose Calcium Magnesium Microbiology Microbiology Results: Microbiology 01/27/25 04:03 Urine Culture - Preliminary Urine Catheterized - Straight Catheter Gram negative kodak 01/17/25 15:09 Fungal Identification - Preliminary Bronch Lll Pratibha albicans Assessment and Plan (1) Acute hypokalemia: Status: Acute (2) CVA (cerebral vascular accident): Status: Acute (3) Hemorrhagic shock: Status: Acute (4) Acute blood loss anemia: Status: Acute (5) GI bleed: Status: Acute Plan Assessment: 59-year-old lady with underlying CKD and diabetes mellitus admitted with acute hypoxic respiratory failure with unclear etiology with progressive respiratory distress requiring intubation 01/16/2025. acute blood loss anemia secondary to lower GI bleed. Status post embolization on 01/22/2025. Extubated 01/24/2025. Acute lower GI bleed with acute blood loss anemia improved initially after 2 units PRBCs Tagged red cell scan was positive on 01/21/2025 status post embolization on 01/22/2025 Successful embolization of active bleeding identified from branches of the inferior mesenteric artery supplying the proximal sigmoid colon. Had red blood with stool while on rectal tube 01/26 Hb improved to 8.4 after 1 unit PRBCs (total 3 units) Hb stable since then at 8.7 with no more bleeding Discussed with Dr Wheeler for reevaluation ; no intervention needed at this point transfusion threshold hemoglobin of 8 Acute Hypernatremia resolved on D5W, DC fluids Continue to monitor renal indices and urine output. Acute hypokalemia K of 2.4 IV and PO replacement follow BMP Acute toxic metabolic Encephalopathy likely 2/2 acute stroke , improving MRI brain with small acute right occipital infarct and stigmata of prior CVAs with moderate changes of small vessel ischemia and numerous old lacunar type infarcts in the anterior gangliocapsular regions and left thalamus. Aspirin on hold given major GIB; questioning the right time to restart it post major bleeding? Hemorrhagic shock resolved, titrated off pressor support in ICU monitor for rebleeding Acute hypoxic respiratory failure requiring ventilatory support likely a result of hemorrhagic shock. suspected PNA on admission, off Abx per ICU extubated 01/24/2025 weaned off to RA now Acute renal failure with metabolic acidosis resolved restart Sodium bicarb physical deconditioning post ICU stay PT eval rec SNF placement Hypotension Placed on Clonidine patch in ICU, DCd; BP omproved since then patient tends to have orthostatic hypotension with supine hypertension Metoprolol IV PRN ordered Insulin-dependent type 2 diabetes Sliding-scale insulin, Lantus 10 units Diabetic diet; RADIAL SAW OPERATOR following Prophylaxis: Pneumatic compression Diet: RADIAL SAW OPERATOR rec NDD1 w Honey thick liquids The patient will need overnight hospital stay for treatment of blood loss anemia , hypokalemia on IV and PO replacement Quality Stroke Does the patient have a stroke diagnosis?: No VTE Prior VTE?: No VTE Risk Level:: Medical - moderate - high VTE Device Contraindication: N/A - Device Ordered VTE Drug Contraindication: N/A - Med Ordered
--- NOTE | 2025-01-28 10:22 | PM.GICN ---
History of Present Illness Data of Consult Service Date: 01/28/25 Requesting physician: Sasha Booker Primary Care Provider: Nolan Blevins MD [facility] Reason for consult: GIB 59-year-old female with medical history of hypertension, hyperlipidemia, tobacco use disorder, CKD stage 3, who presented to the hospital on 01/15 for difficulty breathing and admitted to ICU for hypoxic respiratory failure and work of breathing requiring intubation for mechanical ventilation. On initial admission, patient was noted to have anemia without any overt bleeding, and at that time was getting worked up for question of DIC. Then on 01/21 almost a week after her initial admission, she developed overt melena with hematochezia prompting tagged RBC scan. This was positive for bleeding in splenic flexure. She underwent IR guided embolization of 2nd and 3rd order branches of DAVID 01/22. Course complicated by worsening encephalopathy with question of acute right occipital infarct. She is not on any anti-platelet therapy due to recent GI bleeding. Gastroenterology was consulted for reddish tinge with brown stool in rectal tube noted 01/27. Pt seen at bedside with the help of director of intercollegiate athletics. Reports no abd pain, N,V. No further blood in stool. H/H stable. Review of Systems Review of Systems: Yes all other systems are reviewed and are negative PMFSH Past Medical History Medical History Dysphagia Anxiety disorder GERD (gastroesophageal reflux disease) Migraines Asthma On beta jordyn at home Elevated cholesterol HTN (hypertension) Smoker Diabetes Depression Heartburn Surgical History Surgical History Hx of left knee surgery History of tubal ligation History of esophagogastroduodenoscopy (EGD) H/O colonoscopy Hx of cholecystectomy Social History Social History Household Members: Children Household Members Other:: Daughter Housing: Apartment Housing Other:: pt states she lives in an apartment at her daughter's house Do you presently have visiting nurse or other home services: Yes (Daughter is DIRECTOR OF PRODUCT MARKETING) Alcohol intake: former Comment: 1:1 sitter Patient Tobacco Use Status: Current everyday Tobacco user Tobacco use type: Cigarette Cigarette Packs Per Day: 1 Cigarettes Per Day: 20.0 Years Smoked: 15 Smoked in Last 30 Days: Yes e-Cigarette/Vaping Use: Never Used Second Hand Smoke Exposure: Yes Use of substances other than those prescribed or required for medical reasons: No Currently Displaying Signs/Symptoms of Drug Intoxication Withdrawal: No Have you been hit, kicked, punched, or otherwise hurt by someone within the past year? If so, by whom?: No Do you feel safe in your current relationship?: No Current Relationship Is there a partner from a previous relationship who is making you feel unsafe now?: No Are you made to feel afraid or neglected: No Advance Directives: No Advance Directives Information Provided: Yes Do you have a plan to hurt others: No Plan Recently lost weight without trying: Unsure Eating poorly because of decreased appetite: Yes Nutrition Risks: Poor intake 0-25% >4 days Patient : No : No service: No Current occupational status: disabled Travel History Ebola Risk: Travel/Contact With Anyone From Affected Area/s: No Meds Allergies Allergy/AdvReac Type Severity Reaction Status Date / Time iron Allergy Mild Difficulty Verified 01/15/25 16:21 Breathing Iodinated Contrast Media Allergy Unknown UNKNOWN Verified 01/15/25 16:21 [IV Dye, Iodine Containing] iodine [IODINE] Allergy Unknown RASH Verified 01/15/25 16:21 seafood Allergy Unknown Unknown Verified 01/15/25 16:21 Active Medications: Current Medications Albuterol/Ipratropium (Albuterol/Iprat 2.5/0.5mg 3 Ml Ampul.Neb) 3 ml INHALE RQ4H WHILE AWAKE [facility] Last Admin: 01/28/25 08:26 Dose: 3 ml Dextrose (Dextrose 50 % 25 Gm/50 Ml Syringe) 25 gm IVPUSH Q15M PRN; Protocol PRN Reason: per Hypoglycemia Standing Ord. Last Admin: 01/25/25 03:11 Dose: 25 gm Glucose (Glucose Gel 15 Gm Gel..Gram.) 15 gm PO Q15M PRN; Protocol PRN Reason: per Hypoglycemia Standing Ord. Last Admin: 01/28/25 01:25 Dose: 15 gm Potassium Chloride (Potassium Chloride/H20) 10 meq in 100 mls @ 100 mls/hr IV Q1H [facility] Stop: 01/28/25 11:29 Last Admin: 01/28/25 07:58 Dose: 100 mls/hr Insulin Glargine (Insulin Glargine,Hum.Rec.Anlog 100 Unit/Ml 10 Ml Vial) 5 unit SUBCUT BEDTIME [facility] Insulin Human Lispro (Insulin Lispro 100 Unit/Ml 3 Ml Vial) 0 unit SUBCUT QIDACHS [facility]; Protocol Last Admin: 01/28/25 07:58 Dose: 2 unit Metoprolol Tartrate (Metoprolol Tartrate 5 Mg/5 Ml Vial) 5 mg IVPUSH Q6H PRN; Protocol PRN Reason: SBP > 160 Last Admin: 01/25/25 15:57 Dose: 5 mg Nystatin (Nystatin Powder 15 Gm Bottle) 1 appl TOPICAL TID [facility]; Protocol Last Admin: 01/28/25 03:29 Dose: 1 appl Ondansetron HCl (Ondansetron Hcl 4 Mg/2 Ml Vial) 4 mg IVPUSH Q8H PRN PRN Reason: Nausea and Vomiting Sodium Bicarbonate (Sodium Bicarbonate 650 Mg Tablet) 650 mg PO BID [facility] Last Admin: 01/28/25 07:59 Dose: 650 mg Sodium Chloride (0.9 % Sodium Chloride Flush 3 Ml Syringe) 3 ml IVFLUSH QSHIFT [facility] Last Admin: 01/28/25 07:59 Dose: 3 ml Home Medications ?Medication ?Instructions ?Recorded ?Confirmed ?Last Taken ?Type aspirin 81 mg tablet,delayed 81 mg PO DAILY 04/21/22 01/15/25 01/15/25 History release benztropine 0.5 mg tablet 0.5 mg PO BID 04/21/22 01/15/25 01/07/25 History insulin syringe-needle U-100 0.5 #10 ea 04/21/22 12/26/24 Unknown History mL 30 gauge x 1/2 (UltiCare) haloperidol 5 mg tablet 1 tab PO BID 05/06/22 01/15/25 01/15/25 History gabapentin 100 mg capsule 100 mg PO BEDTIME 05/30/24 01/15/25 01/06/25 History insulin glargine 100 unit/mL (3 20 unit subcut BEDTIME 08/27/24 01/15/25 01/15/25 History mL) subcutaneous pen (Lantus Solostar U-100 Insulin) blood sugar diagnostic (FreeStyle #10 ea 12/04/24 12/26/24 Unknown History Lite Strips) lancets 33 gauge (TRUEplus Lancets) #100 ea 12/04/24 12/26/24 Unknown History pen needle, diabetic 31 gauge x #100 ea 12/04/24 12/26/24 Unknown History 1/ (Easy Touch) esomeprazole magnesium 40 mg 40 mg PO DAILY@0630 12/30/24 01/15/25 01/07/25 History capsule,delayed release (Nexium) Physical Exam Vital Signs: Vital Signs: Last Vital Signs Temp 98.5 F 01/28/25 08:00 Pulse 90 01/28/25 08:26 Resp 18 01/28/25 08:26 BP 164/74 H 01/28/25 08:00 Pulse Ox 96 01/28/25 08:00 O2 Del Method Room Air 01/28/25 08:00 O2 Flow Rate 2 01/26/25 11:20 FiO2 26 01/25/25 05:00 BMI result Body Mass Index 26.6 elderly frail female Able to follow commands LUE weakness 2/5 abd soft, nontender, nondistended mild pitting edema b/l LE Results Labs 01/29/25 06:28 01/29/25 06:28 Labs: Short CBC 01/28/25 Range/Units 06:36 WBC 6.3 (4.8-10.8) X10*3/uL Hgb 8.7 L (12.0-16.0) g/dl Hct 25.4 L (37.0-47.0) % Plt Count 401 H (160-400) X10*3/uL BMP 01/27/25 01/28/25 13:26 06:36 Sodium 139 138 Potassium 3.8 D 2.4 L* D Chloride 111 H 110 H Carbon Dioxide 19 L 19 L BUN 29 H 26 H Creatinine 1.02 0.74 Calcium 7.8 L 7.7 L Microbiology Microbiology Results: Microbiology 01/27/25 04:03 Urine Catheterized - Straight Catheter Urine Culture - Preliminary Gram negative kodak 01/17/25 15:09 Bronch Lll Fungal Identification - Preliminary Pratibha albicans 01/21/25 04:02 Blood - Venous Blood Culture - Final No growth after 5 days. 01/21/25 04:02 Blood - Venous Blood Culture - Final No growth after 5 days. 01/15/25 16:42 Blood - Venous Blood Culture - Final No growth after 5 days. 01/15/25 16:37 Blood - Venous Blood Culture - Final No growth after 5 days. 01/17/25 15:09 Bronch Lll Direct Acid Fast Bacilli Smear - Final 01/17/25 15:09 Bronch Lll Gram Stain - Final 01/17/25 15:09 Bronch Lll - Final No growth after 2 days 01/17/25 15:09 Bronch Lll Routine Culture - Final 01/17/25 15:09 Bronch Rll Gram Stain - Final 01/17/25 15:09 Bronch Rll - Final No growth after 2 days 01/16/25 07:36 Aspirate - Suctioned Gram Stain - Final 01/16/25 07:36 Aspirate - Suctioned Sputum Culture - Final Assessment and Plan (1) Acute blood loss anemia: Status: Acute (2) GI bleed: Status: Acute Plan Had LGIB earlier this admission s/p embolization of 2nd to 3rd order [place] territory. Most recent event of reddish blood noted with brown stool on 01/27 was likely 2/2 irritation from ocean transportation intermediary flexiseal placement. No further bleeding since removal of rectal tube. Plan: - OK to start antiplatelet monotherapy from GI standpoint - Diet as tolerated - Monitor CBC - Avoid rectal tube, rectal temps and suppositories - Will hold off a low yield diagnostic endoscopy at this time due to high periprocedural risks Thank you for allowing me to participate in her care. Please do not hesitate to reach out for any questions or concerns. Procedures Date of Service Date of Service: 01/29/25
[2025-01-28] MEDS: Potassium Chloride Packet 20 MEQ PACKET 40 MEQ PO ×2 (10:34→10:58)
[2025-01-28 11:41] LABS: Glucose, Whole Blood 197 mg/dL (60-115)
[2025-01-28 13:05] LABS: CMV DNA PCR Qn Source PLASMA
[2025-01-28 13:06] LABS: CMV DNA Qn Real Time PCR <34.5 DETECTED
[2025-01-28 13:07] LABS: CMV DNA Qn PCR <1.54 DETECTED
--- NOTE | 2025-01-28 13:32 | MHC.SL.SWA ---
Speech Pathologist Impression: dysphagia aphonia speech/language needs Risk of Aspiration Due to: s/p CVA s/p extubation (>1 week) Dysphasia Diet Status: UPGRADE liquids Liquid Consistency and Strategies for Safe Swallow: Liquid Intake Recommendation: Torboy Thick Liquid Intake Strategies: Small Sips No Straws Liquids by Teaspoon Only Solid Food Consistency: Dietary Recommendations: Pureed (NDD1) Oral Medication Intake: Crushed with Puree Please contact the pharmacy regarding appropriate crushable or liquid drug formulations that are available whenever modified delivery is recommended. Compensatory Strategies and Precautions to be Taken for Safe Swallow: Sitting Upright (90 deg) No Straw Liquids from Spoon Small Bites and Sips Rate of Ingestion Change Oral Check Supervision While Eating and Drinking for Safe Swallow: Total Assistance (1:1) Swallowing Recommended Treatments: Compens. Strategy Educat. Recommendation for Speech: Inpatient Speech Therapy Comment: Recommend UPGRADE to NECTAR THICK liquids ([place] ONLY). Continue w/ PUREE solids (NDD1) and Pills CRUSHED in PUREE. Pt requires 1-1 assist. Recommend re-evaluation by MCAT INSTRUCTOR daily M-F and on weekends as needed via call-in. MCAT INSTRUCTOR recommending continued MCAT INSTRUCTOR tx at next level of care for dysphagia and speech/communication. Pt may benefit from acute rehabilitation vs. short term rehab at SNF. Leather Colorer Clinican/Clinical Fellow: No Supervisory Statement: I have reviewed and agree with the student/clinical fellow's documentation: N/A Speech Language Pathologist: Monik Mcekon M.A., [facility]-MCAT INSTRUCTOR
[2025-01-28 14:28] LABS: Anion Gap 9 (12-20); Blood Urea Nitrogen 22 mg/dL (9-16); Calcium 7.6 mg/dL (8.4-10.2); Carbon Dioxide 21 mmol/L (22-29); Chloride 111 mmol/L (96-108); Creatinine Clr Calc Pharmacy 72.8; Estimated Glomerular Filt Rate > 60; Glucose Random 272 mg/dL (60-115); Potassium 3.8 mmol/L (3.3-5.1); Sodium 137 mmol/L (135-145)
[2025-01-28 15:25] LABS: Glucose, Whole Blood 306 mg/dL (60-115)
[2025-01-28 21:30] LABS: Glucose, Whole Blood 101 mg/dL (60-115)
[2025-01-28] MEDS: Insulin Glargine,Hum.rec.anlog 100 UNIT/ML 10 ML VIAL SUBCUT (21:38)
[2025-01-29] VITALS (9 sets, daily range): BP systolic 133–155; BP diastolic 62–77; PULSE 82–105; RESP 16–19; TEMP 36.4–37.6; O2SAT 96–100; BMI 31.1
[2025-01-29 00:39] LABS: Glucose, Whole Blood 116 mg/dL (60-115)
[2025-01-29 06:11] LABS: Glucose, Whole Blood 91 mg/dL (60-115)
[2025-01-29 07:01] LABS: Anion Gap 11 (12-20); Blood Urea Nitrogen 19 mg/dL (9-16); Calcium 7.5 mg/dL (8.4-10.2); Carbon Dioxide 19 mmol/L (22-29); Chloride 108 mmol/L (96-108); Estimated Glomerular Filt Rate > 60; Glucose Random 91 mg/dL (60-115); Potassium 3.1 mmol/L (3.3-5.1); Sodium 135 mmol/L (135-145)
[2025-01-29] MEDS: Albuterol/Iprat 2.5/0.5MG 3 ML AMPUL.NEB INHALE ×3 (07:54→19:38)
[2025-01-29] MEDS: 0.9 % Sodium Chloride Flush 3 ML SYRINGE IVFLUSH ×3 (08:01→21:35)
[2025-01-29] MEDS: Sodium Bicarbonate 650 MG TABLET PO ×2 (08:01→21:29)
[2025-01-29] MEDS: Aspirin Enteric Coated 81 MG TABLET.DR PO (08:01)
[2025-01-29 08:02] LABS: Hematocrit 25.3 % (37.0-47.0); Hemoglobin 8.9 g/dl (12.0-16.0); Mean Corpuscular HGB Conc 35.2 g/dl (31.0-35.0); Mean Corpuscular Hemoglobin 30.8 pg (27.0-33.0); Mean Corpuscular Volume 87.5 fL (80.0-98.0); Mean Platelet Volume 10.7 fL (9.4-12.3); Platelet Count 431 X10*3/uL (160-400); Red Blood Count 2.89 X10*6/uL (4.20-5.50); Red Cell Distribution Width 17.3 % (11.0-16.0); White Blood Count 5.9 X10*3/uL (4.8-10.8)
[2025-01-29] MEDS: Nystatin Powder 15 GM BOTTLE 1 APPL TOPICAL ×3 (08:04→21:30)
[2025-01-29 08:54] LABS: Band Neutrophils Percent 3 % (3-5); Eosinophils Absolute Manual 0.2 X10*3/uL (0.0-0.4); Eosinophils Percent Manual 4 % (0-4); Lymphocytes Absolute Manual 1.8 X10*3/uL (1.2-4.9); Lymphocytes Percent Manual 30 % (20-40); Monocytes Absolute Manual 0.5 X10*3/uL (0.1-1.2); Monocytes Percent Manual 8 % (2-11); Neutrophils Absolute Manual 3.4 X10*3/uL (2.0-8.3); Neutrophils Percent Manual 55 % (45-73)
[2025-01-29 08:58] LABS: Burr Cells 1+ (0-2) /OIF; Hypochromasia 1+ (5-14) /OIF; Platelet Estimate SLIGHTLY INCREASED (NORMAL); Platelet Morphology Comment NORMAL; RBC Morphology NOTED
[2025-01-29] MEDS: Potassium Chloride ER 20 MEQ TAB.ER.PRT 40 MEQ PO (09:27)
[2025-01-29 11:28] LABS: Glucose, Whole Blood 164 mg/dL (60-115)
[2025-01-29] MEDS: Insulin Lispro 100 UNIT/ML 3 ML VIAL SUBCUT ×3 (11:35→21:30)
--- NOTE | 2025-01-29 12:33 | HO.PM.IMPN ---
Subjective Subjective Date of Service: 01/29/25 Interval History: feeling better, diarrhea resolved Physical Exam Vital Signs: Vital Signs: Last Vital Signs Temp 98.4 F 01/29/25 10:49 Pulse 89 01/29/25 11:42 Resp 16 01/29/25 11:42 BP 133/73 01/29/25 10:49 Pulse Ox 100 01/29/25 10:49 O2 Del Method Room Air 01/29/25 10:49 O2 Flow Rate 2 01/26/25 11:20 FiO2 26 01/25/25 05:00 BMI result Body Mass Index 31.1 elderly frail female Able to follow commands LUE weakness 2/5 abd soft, nontender, nondistended mild pitting edema b/l LE Objective Data Active Medications Albuterol/Ipratropium (Albuterol/Iprat 2.5/0.5mg 3 Ml Ampul.Neb) 3 ml INHALE RQ4H WHILE AWAKE [facility] Last Admin: 01/29/25 11:40 Dose: 3 ml Documented By: MAICOL Aspirin (Aspirin Enteric Coated 81 Mg Tablet.) 81 mg PO DAILY [facility] Last Admin: 01/29/25 08:01 Dose: 81 mg Documented By: MICKEY Dextrose (Dextrose 50 % 25 Gm/50 Ml Syringe) 25 gm IVPUSH Q15M PRN; Protocol PRN Reason: per Hypoglycemia Standing Ord. Last Admin: 01/25/25 03:11 Dose: 25 gm Documented By: PRINCE Comments: per provider Glucose (Glucose Gel 15 Gm Gel..Gram.) 15 gm PO Q15M PRN; Protocol PRN Reason: per Hypoglycemia Standing Ord. Last Admin: 01/28/25 01:25 Dose: 15 gm Documented By: ADRIEL Insulin Glargine (Insulin Glargine,Hum.Rec.Anlog 100 Unit/Ml 10 Ml Vial) 5 unit SUBCUT BEDTIME [facility] Last Admin: 01/28/25 21:38 Dose: 5 unit Documented By: MARYANN Insulin Human Lispro (Insulin Lispro 100 Unit/Ml 3 Ml Vial) 0 unit SUBCUT QIDACHS [facility]; Protocol Last Admin: 01/29/25 11:35 Dose: 2 unit Documented By: SHU Metoprolol Tartrate (Metoprolol Tartrate 5 Mg/5 Ml Vial) 5 mg IVPUSH Q6H PRN; Protocol PRN Reason: SBP > 160 Last Admin: 01/25/25 15:57 Dose: 5 mg Documented By: CHASE Nystatin (Nystatin Powder 15 Gm Bottle) 1 appl TOPICAL TID [facility]; Protocol Last Admin: 01/29/25 08:04 Dose: 1 appl Documented By: MICKEY Ondansetron HCl (Ondansetron Hcl 4 Mg/2 Ml Vial) 4 mg IVPUSH Q8H PRN PRN Reason: Nausea and Vomiting Sodium Bicarbonate (Sodium Bicarbonate 650 Mg Tablet) 650 mg PO BID [facility] Last Admin: 01/29/25 08:01 Dose: 650 mg Documented By: MICKEY Sodium Chloride (0.9 % Sodium Chloride Flush 3 Ml Syringe) 3 ml IVFLUSH QSHIFT [facility] Last Admin: 01/29/25 08:01 Dose: 3 ml Documented By: MICKEY Labs 01/29/25 06:28 01/29/25 06:28 Labs: Laboratory Results - last 24 hr 01/19/25 01/28/25 01/28/25 04:13 13:58 15:21 MCV MCH MCHC RDW Plt Count MPV Immature Gran % (Auto) Neut % (Auto) Lymph % (Auto) [place] % (Auto) Eos % (Auto) Baso % (Auto) Lymph # (Auto) [place] # (Auto) Eos # (Auto) Baso # (Auto) Abs Immat Gran (auto) Absolute Neuts (auto) Absolute Nucleated RBC Nucleated RBC % (auto) Neutrophils % (Manual) Band Neutrophils % Lymphocytes % (Manual) Monocytes % (Manual) Eosinophils % (Manual) Abs Neuts (Manual) Lymphocytes # (Manual) Monocytes # (Manual) Eosinophils # (Manual) Platelet Estimate Plt Morphology Comment RBC Morphology Hypochromasia [place] Cells Anion Gap 9 L Estim Creat Clear Calc 72.8 Estimated GFR > 60 POC Glucose 306 H Random Glucose 272 H Calcium 7.6 L CMV Specimen Source PLASMA CMV Qnt PCR IU/mL <34.5 DETECTED CMV Qnt PCR log IU/mL <1.54 DETECTED 01/28/25 01/29/25 01/29/25 21:26 00:34 06:08 MCV MCH MCHC RDW Plt Count MPV Immature Gran % (Auto) Neut % (Auto) Lymph % (Auto) [place] % (Auto) Eos % (Auto) Baso % (Auto) Lymph # (Auto) [place] # (Auto) Eos # (Auto) Baso # (Auto) Abs Immat Gran (auto) Absolute Neuts (auto) Absolute Nucleated RBC Nucleated RBC % (auto) Neutrophils % (Manual) Band Neutrophils % Lymphocytes % (Manual) Monocytes % (Manual) Eosinophils % (Manual) Abs Neuts (Manual) Lymphocytes # (Manual) Monocytes # (Manual) Eosinophils # (Manual) Platelet Estimate Plt Morphology Comment RBC Morphology Hypochromasia [place] Cells Anion Gap Estim Creat Clear Calc Estimated GFR POC Glucose 101 116 H 91 Random Glucose Calcium CMV Specimen Source CMV Qnt PCR IU/mL CMV Qnt PCR log IU/mL 01/29/25 01/29/25 06:28 11:24 MCV 87.5 MCH 30.8 MCHC 35.2 H RDW 17.3 H Plt Count 431 H MPV 10.7 Immature Gran % (Auto) Cancelled Neut % (Auto) Cancelled Lymph % (Auto) Cancelled [place] % (Auto) Cancelled Eos % (Auto) Cancelled Baso % (Auto) Cancelled Lymph # (Auto) Cancelled [place] # (Auto) Cancelled Eos # (Auto) Cancelled Baso # (Auto) Cancelled Abs Immat Gran (auto) Cancelled Absolute Neuts (auto) Cancelled Absolute Nucleated RBC 0.000 Nucleated RBC % (auto) 0.0 Neutrophils % (Manual) 55 Band Neutrophils % 3 Lymphocytes % (Manual) 30 Monocytes % (Manual) 8 Eosinophils % (Manual) 4 Abs Neuts (Manual) 3.4 Lymphocytes # (Manual) 1.8 Monocytes # (Manual) 0.5 Eosinophils # (Manual) 0.2 Platelet Estimate SLIGHTLY INCREASED Plt Morphology Comment NORMAL RBC Morphology NOTED Hypochromasia 1+ (5-14) [place] Cells 1+ (0-2) Anion Gap 11 L Estim Creat Clear Calc 100.0 Estimated GFR > 60 POC Glucose 164 H Random Glucose 91 Calcium 7.5 L CMV Specimen Source CMV Qnt PCR IU/mL CMV Qnt PCR log IU/mL Microbiology Microbiology Results: Microbiology 01/27/25 04:03 Urine Culture - Preliminary Urine Catheterized - Straight Catheter Citrobacter freundii Assessment and Plan (1) Acute hypokalemia: Status: Acute (2) CVA (cerebral vascular accident): Status: Acute (3) Hemorrhagic shock: Status: Acute (4) Acute blood loss anemia: Status: Acute (5) GI bleed: Status: Acute Plan 59F PMH diabetes mellitus, htn, hld, peripheral neuropathy, gerd, admitted with acute hypoxic respiratory failure with unclear etiology with progressive respiratory distress requiring intubation 01/16/2025. acute blood loss anemia secondary to lower GI bleed. Status post embolization on 01/22/2025. Extubated 01/24/2025. Acute lower GI bleed with acute blood loss anemia improved initially after 2 units PRBCs Tagged red cell scan was positive on 01/21/2025 status post embolization on 01/22/2025 Successful embolization of active bleeding identified from branches of the inferior mesenteric artery supplying the proximal sigmoid colon. Had red blood with stool while on rectal tube 01/26 Hb improved to 8.4 after 1 unit PRBCs (total 3 units) Hb stable since with no more bleeding Discussed with Dr Wheeler for reevaluation ; no intervention needed at this point transfusion threshold hemoglobin of 8 Acute Hypernatremia resolved on D5W, DC fluids Continue to monitor renal indices and urine output. Acute hypokalemia replacement follow BMP Acute toxic metabolic Encephalopathy likely 2/2 acute stroke , improving MRI brain with small acute right occipital infarct and stigmata of prior CVAs with moderate changes of small vessel ischemia and numerous old lacunar type infarcts in the anterior gangliocapsular regions and left thalamus. Aspirin, statin Hemorrhagic shock resolved, titrated off pressor support in ICU monitor for rebleeding Acute hypoxic respiratory failure requiring ventilatory support likely a result of hemorrhagic shock. suspected PNA on admission, completed abx extubated 01/24/2025 weaned off to RA now Acute renal failure with metabolic acidosis resolved restarted Sodium bicarb, monitor vbg physical deconditioning post ICU stay PT eval rec SNF placement Hypotension Placed on Clonidine patch in ICU, DCd; BP omproved since then patient tends to have orthostatic hypotension with supine hypertension Metoprolol IV PRN ordered Insulin-dependent type 2 diabetes Sliding-scale insulin, Lantus 10 units Diabetic diet; [employer] following Prophylaxis: Pneumatic compression Diet: [employer] rec NDD1 w Honey thick liquids reason for continued hospitalization: monitoring for bleed Quality Stroke Does the patient have a stroke diagnosis?: No VTE Prior VTE?: No VTE Risk Level:: Medical - moderate - high VTE Device Contraindication: N/A - Device Ordered VTE Drug Contraindication: N/A - Med Ordered
--- NOTE | 2025-01-29 12:42 | MHC.CM.PN ---
Per rounds, pt is still acute, requiring ongoing care for acute hypoxic respiratory failure. DCP is STR, [facility] accepting, MDS and other docs sent to [facility] for review and auth.
--- NOTE | 2025-01-29 13:52 | MHC.CLN ---
F/U PO INTAKE 25-50% WITH 1:1 FEED DIET ADVANCED PER BROKE BEATER 2000DM PUREED WITH NT LIQ RECOMMEND ADDING ENSURE BID TO INCREASE KCALS SUPP TO PROVIDE 700KCALS, 40G PROTEIN MONITOR PO INTAKE CLOSELY AND ENCOURAGE SUPPLEMENT
--- NOTE | 2025-01-29 15:58 | MHC.SLORD ---
Speech Language Pathology Order Status: PULMONARY PHYSICIAN attempted to see patient 3x this afternoon; patient sleeping. PULMONARY PHYSICIAN to f/u tomorrow.
[2025-01-29 16:41] LABS: Glucose, Whole Blood 173 mg/dL (60-115)
[2025-01-29 21:24] LABS: Glucose, Whole Blood 167 mg/dL (60-115)
[2025-01-29] MEDS: Insulin Glargine,Hum.rec.anlog 100 UNIT/ML 10 ML VIAL SUBCUT (21:29)
[2025-01-29] MEDS: Atorvastatin Calcium 40 MG TABLET PO (21:29)
[2025-01-30] VITALS (8 sets, daily range): BP systolic 120–142; BP diastolic 70–80; PULSE 86–100; RESP 16–18; TEMP 36.6–37.2; O2SAT 98–100; BMI 31.0
[2025-01-30 00:17] LABS: Glucose, Whole Blood 97 mg/dL (60-115)
[2025-01-30 06:22] LABS: Glucose, Whole Blood 81 mg/dL (60-115)
[2025-01-30 06:32] LABS: Hematocrit 23.7 % (37.0-47.0); Hemoglobin 8.4 g/dl (12.0-16.0); Mean Corpuscular HGB Conc 35.4 g/dl (31.0-35.0); Mean Corpuscular Hemoglobin 30.9 pg (27.0-33.0); Mean Corpuscular Volume 87.1 fL (80.0-98.0); Mean Platelet Volume 9.8 fL (9.4-12.3); NRBC Pct Auto 0.5 /100WBC (0.0-0.2); Platelet Count 407 X10*3/uL (160-400); Red Blood Count 2.72 X10*6/uL (4.20-5.50); Red Cell Distribution Width 16.6 % (11.0-16.0); White Blood Count 4.1 X10*3/uL (4.8-10.8)
[2025-01-30 06:33] LABS: Venous Blood Gas Refer to POC result
[2025-01-30 06:37] LABS: VBG Base Excess -0.9 mmol/L; VBG HCO3 20 mmol/L (22-26); VBG pCO2 24 mmHg; VBG pH 7.53 (7.32-7.43); VBG pO2 85 mmHg
[2025-01-30 06:50] LABS: Anion Gap 9 (12-20); Blood Urea Nitrogen 15 mg/dL (9-16); Calcium 7.4 mg/dL (8.4-10.2); Carbon Dioxide 19 mmol/L (22-29); Chloride 111 mmol/L (96-108); Creatinine Clr Calc Pharmacy 113.2; Estimated Glomerular Filt Rate > 60; Glucose Random 84 mg/dL (60-115); Magnesium 1.8 mg/dL (1.6-2.6); Sodium 136 mmol/L (135-145)
[2025-01-30] MEDS: Sodium Bicarbonate 650 MG TABLET PO (08:21)
[2025-01-30] MEDS: 0.9 % Sodium Chloride Flush 3 ML SYRINGE IVFLUSH ×3 (08:21→19:30)
[2025-01-30] MEDS: Nystatin Powder 15 GM BOTTLE 1 APPL TOPICAL ×3 (08:22→23:00)
--- NOTE | 2025-01-30 09:08 | PC.NURSE ---
loose stool with a lot of mucus x 3 overnight, stool sample obtained and sent to the lab for cdiff and GI panel , DR Katz clarified that is okay to give ASA . order is being changed for chewable ASA
--- NOTE | 2025-01-30 09:12 | PC.NURSE ---
PT alert to person place and vague to the time . historical interpreter present at the AM assessment. Pt denied any pain , no sob, galen UE s and galen LE'S severe weakness ,
--- NOTE | 2025-01-30 09:43 | P.CONNP_ITS ---
History of Present Illness Reason for Consult Consult date: 01/30/25 Chief Complaint Chief complaint: Acute hypoxic resp failure History of Present Illness Narrative: 59 y/o female with a medical history of DMII, HTN, HLD, peripheral neuropathy. 01/16 hypoxic respiratory failure of unclear etiology requiring intubation, had acute blood loss anemia from lower GIB, emobolization 01/22, extubated 01/24. Nephrology consulted for assistance management of acid-base imbalance- patient has metabolic acidosis presumably from ongoing diarrhea, receiving oral bicarbonate for management though VBG pH alkalotic. potassium 3.0. patient continues with frequent liquid diarrhea she states she feels otherwise well- denies shortness of breath (on RA), chest pain, abdominal pain urinating comfortably/regulary mild LE edema Review of Systems Constitutional: Reports no additional constitutional complaints Cardiovascular: Denies chest pain, Denies leg edema, Denies lightheadedness and Denies dyspnea Respiratory: Denies cough and Denies dyspnea Gastrointestinal: Denies abdominal pain, Denies constipation, Reports diarrhea, Denies nausea and Denies vomiting Genitourinary: Denies hematuria, Denies difficulty voiding, Denies dysuria and Denies flank pain Musculoskeletal: Denies back pain and Denies muscle cramps Skin/Breast: Denies rash PMFSH Past Medical History Medical History Dysphagia Anxiety disorder GERD (gastroesophageal reflux disease) Migraines Asthma On beta jordyn at home Elevated cholesterol HTN (hypertension) Smoker Diabetes Depression Heartburn Surgical History Surgical History Hx of left knee surgery History of tubal ligation History of esophagogastroduodenoscopy (EGD) H/O colonoscopy Hx of cholecystectomy Social History Social History Household Members: Children Household Members Other:: Daughter Housing: Apartment Housing Other:: pt states she lives in an apartment at her daughter's house Do you presently have visiting nurse or other home services: Yes (Daughter is DIRECTOR OF CULTURE) Alcohol intake: former Comment: 1:1 sitter Patient Tobacco Use Status: Current everyday Tobacco user Tobacco use type: Cigarette Cigarette Packs Per Day: 1 Cigarettes Per Day: 20.0 Years Smoked: 15 Smoked in Last 30 Days: Yes e-Cigarette/Vaping Use: Never Used Second Hand Smoke Exposure: Yes Use of substances other than those prescribed or required for medical reasons: No Currently Displaying Signs/Symptoms of Drug Intoxication Withdrawal: No Have you been hit, kicked, punched, or otherwise hurt by someone within the past year? If so, by whom?: No Do you feel safe in your current relationship?: No Current Relationship Is there a partner from a previous relationship who is making you feel unsafe now?: No Are you made to feel afraid or neglected: No Advance Directives: No Advance Directives Information Provided: Yes Do you have a plan to hurt others: No Plan Recently lost weight without trying: Unsure Eating poorly because of decreased appetite: Yes Nutrition Risks: Poor intake 0-25% >4 days Patient : No : No service: No Current occupational status: disabled Travel History Ebola Risk: Travel/Contact With Anyone From Affected Area/s: No Meds Allergies Allergy/AdvReac Type Severity Reaction Status Date / Time iron Allergy Mild Difficulty Verified 01/15/25 16:21 Breathing Iodinated Contrast Media Allergy Unknown UNKNOWN Verified 01/15/25 16:21 [IV Dye, Iodine Containing] iodine [IODINE] Allergy Unknown RASH Verified 01/15/25 16:21 seafood Allergy Unknown Unknown Verified 01/15/25 16:21 Active Medications: Current Medications Albuterol/Ipratropium (Albuterol/Iprat 2.5/0.5mg 3 Ml Ampul.Neb) 3 ml INHALE RQ4H WHILE AWAKE [facility] Last Admin: 01/30/25 08:02 Dose: Not Given Aspirin (Aspirin 81 Mg Tab.Chew) 81 mg PO DAILY [facility] Atorvastatin Calcium (Atorvastatin Calcium 40 Mg Tablet) 40 mg PO BEDTIME [facility] Last Admin: 01/29/25 21:29 Dose: 40 mg Dextrose (Dextrose 50 % 25 Gm/50 Ml Syringe) 25 gm IVPUSH Q15M PRN; Protocol PRN Reason: per Hypoglycemia Standing Ord. Last Admin: 01/25/25 03:11 Dose: 25 gm Glucose (Glucose Gel 15 Gm Gel..Gram.) 15 gm PO Q15M PRN; Protocol PRN Reason: per Hypoglycemia Standing Ord. Last Admin: 01/28/25 01:25 Dose: 15 gm Insulin Glargine (Insulin Glargine,Hum.Rec.Anlog 100 Unit/Ml 10 Ml Vial) 5 unit SUBCUT BEDTIME [facility] Last Admin: 01/29/25 21:29 Dose: 5 unit Insulin Human Lispro (Insulin Lispro 100 Unit/Ml 3 Ml Vial) 0 unit SUBCUT QIDACHS [facility]; Protocol Last Admin: 01/30/25 07:27 Dose: Not Given Metoprolol Tartrate (Metoprolol Tartrate 5 Mg/5 Ml Vial) 5 mg IVPUSH Q6H PRN; Protocol PRN Reason: SBP > 160 Last Admin: 01/25/25 15:57 Dose: 5 mg Nystatin (Nystatin Powder 15 Gm Bottle) 1 appl TOPICAL TID [facility]; Protocol Last Admin: 01/30/25 08:22 Dose: 1 appl Ondansetron HCl (Ondansetron Hcl 4 Mg/2 Ml Vial) 4 mg IVPUSH Q8H PRN PRN Reason: Nausea and Vomiting Sodium Bicarbonate (Sodium Bicarbonate 650 Mg Tablet) 650 mg PO BID [facility] Last Admin: 01/30/25 08:21 Dose: 650 mg Sodium Chloride (0.9 % Sodium Chloride Flush 3 Ml Syringe) 3 ml IVFLUSH QSHIFT [facility] Last Admin: 01/30/25 08:21 Dose: 3 ml Home Medications ?Medication ?Instructions ?Recorded ?Confirmed ?Last Taken ?Type aspirin 81 mg tablet,delayed 81 mg PO DAILY 04/21/22 01/15/25 01/15/25 History release benztropine 0.5 mg tablet 0.5 mg PO BID 04/21/22 01/15/25 01/07/25 History insulin syringe-needle U-100 0.5 #10 ea 04/21/22 12/26/24 Unknown History mL 30 gauge x 1/2 (UltiCare) haloperidol 5 mg tablet 1 tab PO BID 05/06/22 01/15/25 01/15/25 History gabapentin 100 mg capsule 100 mg PO BEDTIME 05/30/24 01/15/25 01/06/25 History insulin glargine 100 unit/mL (3 20 unit subcut BEDTIME 08/27/24 01/15/25 01/15/25 History mL) subcutaneous pen (Lantus Solostar U-100 Insulin) blood sugar diagnostic (FreeStyle #10 ea 12/04/24 12/26/24 Unknown History Lite Strips) lancets 33 gauge (TRUEplus Lancets) #100 ea 12/04/24 12/26/24 Unknown History pen needle, diabetic 31 gauge x #100 ea 12/04/24 12/26/24 Unknown History 1/ (Easy Touch) esomeprazole magnesium 40 mg 40 mg PO DAILY@0630 12/30/24 01/15/25 01/07/25 History capsule,delayed release (Nexium) Physical Exam Vital Signs: Last Vital Signs Temp 97.9 F 01/30/25 07:48 Pulse 90 01/30/25 07:48 Resp 16 01/30/25 07:48 BP 130/80 01/30/25 07:48 Pulse Ox 99 01/30/25 07:48 O2 Del Method Room Air 01/30/25 07:48 O2 Flow Rate 2 01/26/25 11:20 FiO2 26 01/25/25 05:00 BMI result Body Mass Index 31.0 Const General: no acute distress, alert and awake Resp Effort & Inspection: normal respiratory effort and able to speak in complete sentences Auscultation: clear to auscultation bilaterally Cardio Rate: regular rate Rhythm: regular rhythm Heart sounds: S1 normal heart sound present and S2 normal heart sound present GI Palpation (GI): Soft to palpation and nontender General: Yes no CVA tenderness Back/Spine/Pelvis Back: no CVA tenderness Extrem General: Yes edema (+1 pitting BLE edema) Results Lab Results 01/30/25 06:24 01/30/25 06:24 Lab results: Chemistry 01/27/25 01/28/25 01/28/25 13:26 06:36 13:58 Sodium 139 138 137 Potassium 3.8 D 2.4 L* D 3.8 D Carbon Dioxide 19 L 19 L 21 L BUN 29 H 26 H 22 H Creatinine 1.02 0.74 0.75 Calcium 7.8 L 7.7 L 7.6 L 01/29/25 01/30/25 06:28 06:24 Sodium 135 136 Potassium 3.1 L 3.0 L Carbon Dioxide 19 L 19 L BUN 19 H 15 Creatinine 0.59 0.52 Calcium 7.5 L 7.4 L Hematology 01/28/25 01/29/25 01/30/25 06:36 06:28 06:24 WBC 6.3 5.9 4.1 L Hgb 8.7 L 8.9 L 8.4 L Plt Count 401 H 431 H 407 H Assessment and Plan (1) Metabolic acidosis: Status: Resolved (2) Acute hypokalemia: Status: Acute Plan Patient with a primary alkalosis- unclear if metabolic compensation from respiratory alkalsosis or concurrent metabolic alkalosis will check ABG to assess for respiratory alkalosis- if present, recommend correcting underlying cause for now recommend discontinuing oral bicarb given alkalotic blood pH address underlying diarrhea replace potassium as needed- likely from GI losses will continue to follow Discussed with Dr Duggan Procedures Date of Service Date of Service: 01/30/25
--- NOTE | 2025-01-30 09:57 | HO.PM.IMPN ---
Subjective Subjective Date of Service: 01/30/25 Interval History: had more diarrhea today Physical Exam Vital Signs: Vital Signs: Last Vital Signs Temp 97.9 F 01/30/25 07:48 Pulse 90 01/30/25 07:48 Resp 16 01/30/25 07:48 BP 130/80 01/30/25 07:48 Pulse Ox 99 01/30/25 07:48 O2 Del Method Room Air 01/30/25 07:48 O2 Flow Rate 2 01/26/25 11:20 FiO2 26 01/25/25 05:00 BMI result Body Mass Index 31.0 Const: General: no acute distress, alert and awake Resp: Effort & Inspection: normal respiratory effort and able to speak in complete sentences Auscultation: clear to auscultation bilaterally Cardio: Rate: regular rate Rhythm: regular rhythm Heart sounds: S1 normal heart sound present and S2 normal heart sound present GI: Palpation (GI): Soft to palpation and nontender : General: Yes no CVA tenderness Back/Spine/Pelvis: Back: no CVA tenderness Extrem: General: Yes edema (+1 pitting BLE edema) Objective Data Active Medications Albuterol/Ipratropium (Albuterol/Iprat 2.5/0.5mg 3 Ml Ampul.Neb) 3 ml INHALE RQ4H WHILE AWAKE [facility] Last Admin: 01/30/25 08:02 Dose: Not Given Documented By: MAICOL Non-Admin Reason: See Note Aspirin (Aspirin 81 Mg Tab.Chew) 81 mg PO DAILY [facility] Atorvastatin Calcium (Atorvastatin Calcium 40 Mg Tablet) 40 mg PO BEDTIME [facility] Last Admin: 01/29/25 21:29 Dose: 40 mg Documented By: JOEY Dextrose (Dextrose 50 % 25 Gm/50 Ml Syringe) 25 gm IVPUSH Q15M PRN; Protocol PRN Reason: per Hypoglycemia Standing Ord. Last Admin: 01/25/25 03:11 Dose: 25 gm Documented By: PRINCE Comments: per provider Glucose (Glucose Gel 15 Gm Gel..Gram.) 15 gm PO Q15M PRN; Protocol PRN Reason: per Hypoglycemia Standing Ord. Last Admin: 01/28/25 01:25 Dose: 15 gm Documented By: ADRIEL Insulin Glargine (Insulin Glargine,Hum.Rec.Anlog 100 Unit/Ml 10 Ml Vial) 5 unit SUBCUT BEDTIME [facility] Last Admin: 01/29/25 21:29 Dose: 5 unit Documented By: JOEY Insulin Human Lispro (Insulin Lispro 100 Unit/Ml 3 Ml Vial) 0 unit SUBCUT QIDACHS [facility]; Protocol Last Admin: 01/30/25 07:27 Dose: Not Given Documented By: BRANDEE Non-Admin Reason: No Insulin Coverage Metoprolol Tartrate (Metoprolol Tartrate 5 Mg/5 Ml Vial) 5 mg IVPUSH Q6H PRN; Protocol PRN Reason: SBP > 160 Last Admin: 01/25/25 15:57 Dose: 5 mg Documented By: CHASE Nystatin (Nystatin Powder 15 Gm Bottle) 1 appl TOPICAL TID [facility]; Protocol Last Admin: 01/30/25 08:22 Dose: 1 appl Documented By: BRANDEE Ondansetron HCl (Ondansetron Hcl 4 Mg/2 Ml Vial) 4 mg IVPUSH Q8H PRN PRN Reason: Nausea and Vomiting Potassium Chloride (Potassium Chloride Packet 20 Meq Packet) 40 meq PO ONCE ONE Stop: 01/30/25 09:52 Sodium Bicarbonate (Sodium Bicarbonate 650 Mg Tablet) 650 mg PO BID [facility] Last Admin: 01/30/25 08:21 Dose: 650 mg Documented By: BRANDEE Sodium Chloride (0.9 % Sodium Chloride Flush 3 Ml Syringe) 3 ml IVFLUSH QSHIFT [facility] Last Admin: 01/30/25 08:21 Dose: 3 ml Documented By: BRANDEE Labs 01/30/25 06:24 01/30/25 06:24 Labs: Laboratory Results - last 24 hr 01/29/25 01/29/25 01/29/25 11:24 16:37 21:20 MCV MCH MCHC RDW Plt Count MPV Absolute Nucleated RBC Nucleated RBC % (auto) VBG pH VBG pCO2 VBG pO2 VBG HCO3 VBG O2 Saturation VBG Base Excess Anion Gap Estim Creat Clear Calc Estimated GFR POC Glucose 164 H 173 H 167 H Random Glucose Calcium Magnesium 01/30/25 01/30/25 01/30/25 00:13 06:16 06:24 MCV 87.1 MCH 30.9 MCHC 35.4 H RDW 16.6 H Plt Count 407 H MPV 9.8 Absolute Nucleated RBC 0.020 H Nucleated RBC % (auto) 0.5 H VBG pH VBG pCO2 VBG pO2 VBG HCO3 VBG O2 Saturation VBG Base Excess Anion Gap 9 L Estim Creat Clear Calc 113.2 Estimated GFR > 60 POC Glucose 97 81 Random Glucose 84 Calcium 7.4 L Magnesium 1.8 01/30/25 06:33 MCV MCH MCHC RDW Plt Count MPV Absolute Nucleated RBC Nucleated RBC % (auto) VBG pH 7.53 H VBG pCO2 24 VBG pO2 85 VBG HCO3 20 L VBG O2 Saturation Not Reportable VBG Base Excess -0.9 Anion Gap Estim Creat Clear Calc Estimated GFR POC Glucose Random Glucose Calcium Magnesium Microbiology Microbiology Results: Microbiology 01/27/25 04:03 Urine Culture - Final Urine Catheterized - Straight Catheter Citrobacter freundii Assessment and Plan (1) Acute hypokalemia: Status: Acute (2) CVA (cerebral vascular accident): Status: Acute (3) Hemorrhagic shock: Status: Acute (4) Acute blood loss anemia: Status: Acute (5) GI bleed: Status: Acute Plan 59F PMH diabetes mellitus, htn, hld, peripheral neuropathy, gerd, admitted with acute hypoxic respiratory failure with unclear etiology with progressive respiratory distress requiring intubation 01/16/2025. acute blood loss anemia secondary to lower GI bleed. Status post embolization on 01/22/2025. Extubated 01/24/2025. Acute lower GI bleed with acute blood loss anemia improved initially after 2 units PRBCs Tagged red cell scan was positive on 01/21/2025 status post embolization on 01/22/2025 Successful embolization of active bleeding identified from branches of the inferior mesenteric artery supplying the proximal sigmoid colon. Had red blood with stool while on rectal tube 01/26 Hb improved to 8.4 after 1 unit PRBCs (total 3 units) Hb stable since with no more bleeding Discussed with Dr Wheeler for reevaluation ; no intervention needed at this point transfusion threshold hemoglobin of 8 Acute Hypernatremia resolved on D5W, DC fluids Continue to monitor renal indices and urine output. Acute hypokalemia replacement follow BMP, mg Acute toxic metabolic Encephalopathy likely 2/2 acute stroke , improving MRI brain with small acute right occipital infarct and stigmata of prior CVAs with moderate changes of small vessel ischemia and numerous old lacunar type infarcts in the anterior gangliocapsular regions and left thalamus. Aspirin, statin Hemorrhagic shock resolved, titrated off pressor support in ICU monitor for rebleeding Acute hypoxic respiratory failure requiring ventilatory support likely a result of hemorrhagic shock. 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
[2025-01-30 10:37] LABS: CDiff Gene PCR NEGATIVE (Negative)
[2025-01-30 10:45] LABS: ABG Base Excess -0.8 mmol/L; ABG HCO3 21 mmol/L (22-26); ABG pCO2 26 mmHg (32-45); ABG pH 7.51 (7.35-7.45); ABG pO2 72 mmHg (83-108)
[2025-01-30] MEDS: Potassium Chloride Packet 20 MEQ PACKET 40 MEQ PO (11:22)
[2025-01-30 11:29] LABS: Glucose, Whole Blood 135 mg/dL (60-115)
[2025-01-30] MEDS: Albuterol/Iprat 2.5/0.5MG 3 ML AMPUL.NEB INHALE (11:42)
--- NOTE | 2025-01-30 11:42 | HO.WOUND ---
Addendum entered by Viviane Hills RN 01/30/25 13:41: Wound Consult: Initial 59yr old?female admitted to [facility] on 01/15/25 19:12- See progress notes and H&P for detailed history.? Wound consult placed for Left Posterior Upper Thigh Abrasion.? Direct care nurse was able to take photo at time of care see below for photo. Area to posterior thigh was open and discovered during incontinence care. Patient is noted for mixed incontinence. Recommended foam dressing application if away from source for stool and urine and Triad if foam dressing application is not appropriate. Left Posterior thigh Etiology: MASD - IAD (Moisture Associated Skin Damage- Incontinence Associated Dermatitis) ?Present on Admission Wound Bed: red pink moist tissue - partial thickness tissue loss with epidermal lifting noted Drainage / Odor: None Edges: ? attached Luz wound: dark hyperpigmentation noted along with pink erythema to surrounding are and periarea? No Induration, Fluctuance or Warmth noted Goals of Treatment: ? Off Load Pressure - Protect from moisture and friction with triad and foam when appropriate Recommendations: 1. Turn and Reposition every 2 hours and as needed for patient comfort.? Use pillows or wedges to support off loading positions. 2. Off Load all bony prominences with use of pillows and heel boots if needed.? Apply Preventative foams where needed. ? 3. Monitor for incontinence and moisture control, use barrier creams when needed for prevention and treatment. 4. Provide adequate and supplemental nutrition.? 5. Order low air loss mattress. 6. When applicable maintain blood glucose levels per Providers order. Posterior Thigh - Off Load Pressure with Q2 hr turns and use of pillows - Cleanse with PH balance spray or wipes, pat dry. ?Apply thin layer of Triad to wound bed. Do not remove all of paste between applications as this may cause further skin damage.? Cover with foam dressing to aid in off loading and protection from friction. Change every 3 days and PRN. If foam is repeatedly soiled remove and use Triad alone. Use waffle cushion when up to chair. Re-consult wound care Nurse for wound deterioration or wound changes. Original Note: Wound Consult: Attempted 59yr old?female admitted to [facility] on 01/15/25 19:12- See progress notes and H&P for detailed history.? Wound consult placed for Left Posterior Upper Thigh Abrasion.? Arrival to bedside patient was in chair and required Millicent Denisdy to get from bed to chair - she is currently eating lunch. Spoke to direct care nurse - area to posterior thigh was open and discovered during incontinence care. Patient is noted for mixed incontinence. Recommended foam dressing application if away from source for stool and urine and Triad if foam dressing application is not appropriate. Will attempt to assess at future date and or time. Recommendations: 1. Turn and Reposition every 2 hours and as needed for patient comfort.? Use pillows or wedges to support off loading positions. 2. Off Load all bony prominences with use of pillows and heel boots if needed.? Apply Preventative foams where needed. ? 3. Monitor for incontinence and moisture control, use barrier creams when needed for prevention and treatment. 4. Provide adequate and supplemental nutrition.? 5. Order low air loss mattress. 6. When applicable maintain blood glucose levels per Providers order. Posterior Thigh - Off Load Pressure with Q2 hr turns and use of pillows - Cleanse with PH balance spray or wipes, pat dry. ?Apply thin layer of Triad to wound bed. Do not remove all of paste between applications as this may cause further skin damage.? Cover with foam dressing to aid in off loading and protection from friction. Change every 3 days and PRN. If foam is repeatedly soiled remove and use Triad alone. Use waffle cushion when up to chair. Re-consult wound care Nurse for wound deterioration or wound changes.
--- NOTE | 2025-01-30 14:15 | MHC.SL.SWA ---
Speech Pathologist Impression: Risk of Aspiration Due to: Dysphasia Diet Status: Recommend UPGRADE liquids to THIN, continue on PUREE, pills crushed in puree. Patient with severe upper extremity weakness, continues to need full assistance at all meals. Liquids by controlled cup sip/controlled straw sip. Liquid Consistency and Strategies for Safe Swallow: Liquid Intake Recommendation: Thin Liquid Intake Strategies: Small Sips No Straws Liquids by Teaspoon Only Solid Food Consistency: Dietary Recommendations: Pureed (NDD1) Additional Modifications to Solid Foods: Oral Medication Intake: Crushed with Puree Please contact the pharmacy regarding appropriate crushable or liquid drug formulations that are available whenever modified delivery is recommended. Compensatory Strategies and Precautions to be Taken for Safe Swallow: Sitting Upright (90 deg) Liquids from Cup Small Bites and Sips Rate of Ingestion Change Oral Check Supervision While Eating and Drinking for Safe Swallow: Total Assistance (1:1) Foods to Avoid: Swallowing Recommended Treatments: Compens. Strategy Educat. Recommendation for Speech: Inpatient Speech Therapy Comment: Pt seen for swallow and speech [place] this pm, with daughter present in room. Patient had eaten some of her lunch, per daughter, but had limited appetite. Patient was seated in recliner chair beside bed, all communication was in Gu[place]ese. Patient was given trials of water by spoon, cup sip and straw sip, with patient producing timely oral and pharyngeal phase, timely swallow, no clinical signs of aspiration. Patient noted to take slightly large gulp by straw, cued to take smaller individual sips with good compliance. Patient given crushed kaegan cracker in puree, with patient notably grimacing at taste, with daughter explaining that her mother hates vanilla. Patient then took prolonged period to chew up cracker, at times it was unclear if she had swallowed bolus, as she continued to chew. When asked if she had swallowed, she nodded, then opened her mouth when asked, demonstrating only mild resdual, no pocketing or holding. Throughout swallow re-assessment, patient remained non-verbal, though at times, as indicated, responding non-verbally to questions and direcitons. FIELD REIMBURSEMENT MANAGER then introduced multisyllabic word targets with written and visual words, with patient readily producing target words in [place]ese, with clear, articulate speech (no slurring, no evidence of planning or sequencing difficulty (apraxia), voice WFL with adequate volume). Patient was also given definitions of concrete words, with patient producing the target/expected word at 70% accuracy, some perseverations noted (e.g. repeated Mueble when asked un meuble en que puedes sentar... ). Speech clarity again was judged to be WFL. Summary conclusion: Recommend UPGRADE liquids to THIN, continue on PUREE, pills crushed in puree. Patient with severe upper extremity weakness, continues to need full assistance at all meals. Liquids by controlled cup sip/controlled straw sip. Patient is evidencing significant improvement in voice, speech, no evidence today of loss of voice or apraxia, however noted that patient did not initiate verbal communication until prompted with structured stimuli. Patient evidences some persistant issues with comprehension and possibly word finding, with further assessment to clarify these observations. e.g. this FIELD REIMBURSEMENT MANAGER on chart review notes documentation of pre-exisiting dementia, not previously reported by FIELD REIMBURSEMENT MANAGER case history. Frequency/Duration: Date Range for Service Req: Timeline to reassess: Assistant Professor Of Marine Biology Clinican/Clinical Fellow: No Supervisory Statement: I have reviewed and agree with the student/clinical fellow's documentation: N/A Speech Language Pathologist: Violet Vidal M.A., CCC-FIELD REIMBURSEMENT MANAGER
--- NOTE | 2025-01-30 14:45 | PC.NURSE ---
pt has allergy listed to seafood , clarified with the pt and her daughter that she has SOB and itchy and rash when she eats seafood. DR Katz was notified and the plan is to premadicate pt before the the test.
[2025-01-30 15:15] LABS: ABG Refer to POC result
[2025-01-30 15:32] LABS: Adenovirus F 40/41 Not Detected (Not Detect.); Astrovirus Not Detected (Not Detect.); Campylobacter Not Detected (Not Detect.); Cryptosporidium Not Detected (Not Detect.); Cyclospora cayetanensis Not Detected (Not Detect.); E. coli EAEC Not Detected (Not Detect.); E. coli EPEC Not Detected (Not Detect.); E. coli ETEC Not Detected (Not Detect.); E. coli STEC Not Detected (Not Detect.); Entamoeba histolytica Not Detected (Not Detect.); Giardia lamblia Not Detected (Not Detect.); Norovirus GI/GII Not Detected (Not Detect.); Plesiomonas shigelloides Not Detected (Not Detect.); Rotavirus A Not Detected (Not Detect.); Salmonella Not Detected (Not Detect.); Sapovirus Not Detected (Not Detect.); Shigella sp./EIEC Not Detected (Not Detect.); Vibrio Not Detected (Not Detect.); Vibrio Cholerae Not Detected (Not Detect.); Yersinia enterocolitica Not Detected (Not Detect.)
[2025-01-30] MEDS: methylPREDNISolone Sod Succ 40 MG/ML VIAL IVPUSH ×2 (16:18→20:10)
[2025-01-30 17:46] LABS: Glucose, Whole Blood 205 mg/dL (60-115)
[2025-01-30] MEDS: Insulin Lispro 100 UNIT/ML 3 ML VIAL SUBCUT (18:05)
[2025-01-30] MEDS: diphenhydrAMINE HCL 50 MG/ML VIAL IVPUSH (19:27)
[2025-01-30] MEDS: iohexoL 350 MG/ML 100 ML INFUS..BTL IV (20:36)
--- NOTE | 2025-01-30 21:54 | PM.EVENT ---
Event Note Date of Service: 01/30/25 Event Note: Patient's CT scan with new pneumatosis in the cecum concerning for ischemic bowel. Also wall thickening concerning for diffuse colitis. Patient is hemodynamically stable at this time. Physical exam without any abdominal guarding or rigidity. Will closely monitor. Initiating IV Zosyn and will keep patient NPO. Consulting General surgery and Gastroenterology. Obtaining lactic acid Time Spent With Patient Time: Total time managing care of this patient today ____ minutes.
[2025-01-30] MEDS: Piperacillin Sodium/Tazobactam 4.5 GM in 0.9 % Sodium Chloride 100 ML IV (22:52)
[2025-01-30 23:10] LABS: Lactic Acid 1.3 mmol/L (0.5-2.0)
[2025-01-31] VITALS (11 sets, daily range): BP systolic 126–169; BP diastolic 72–86; PULSE 18–96; RESP 16–20; TEMP 36.2–37.1; O2SAT 97–100; BMI 27.7
[2025-01-31 00:02] LABS: Glucose, Whole Blood 169 mg/dL (60-115)
[2025-01-31] MEDS: Piperacillin Sodium/Tazobactam 4.5 GM in 0.9 % Sodium Chloride 100 ML IV ×4 (04:09→23:04)
[2025-01-31 06:12] LABS: Glucose, Whole Blood 197 mg/dL (60-115)
[2025-01-31 07:13] LABS: Hematocrit 24.5 % (37.0-47.0); Hemoglobin 8.7 g/dl (12.0-16.0); Mean Corpuscular HGB Conc 35.5 g/dl (31.0-35.0); Mean Corpuscular Hemoglobin 30.4 pg (27.0-33.0); Mean Corpuscular Volume 85.7 fL (80.0-98.0); Mean Platelet Volume 10.3 fL (9.4-12.3); Platelet Count 349 X10*3/uL (160-400); Red Blood Count 2.86 X10*6/uL (4.20-5.50); Red Cell Distribution Width 16.8 % (11.0-16.0); White Blood Count 5.2 X10*3/uL (4.8-10.8)
[2025-01-31 07:28] LABS: Alanine Aminotransferase 8 U/L (0-31); Albumin Level 2.7 g/dL (3.5-5.0); Alkaline Phosphatase 146 U/L (39-117); Anion Gap 11 (12-20); Aspartate Amino Transferase 17 U/L (5-31); Bilirubin Direct 0.3 mg/dL (0.0-0.5); Bilirubin Total 0.7 mg/dL (0.0-1.0); Blood Urea Nitrogen 15 mg/dL (9-16); Calcium 7.7 mg/dL (8.4-10.2); Carbon Dioxide 19 mmol/L (22-29); Chloride 110 mmol/L (96-108); Creatinine Clr Calc Pharmacy 96.1; Estimated Glomerular Filt Rate > 60; Glucose Random 200 mg/dL (60-115); Magnesium 1.8 mg/dL (1.6-2.6); Potassium 3.5 mmol/L (3.3-5.1); Sodium 136 mmol/L (135-145); Total Protein 4.9 g/dL (6.5-8.0)
[2025-01-31 07:34] LABS: Glucose, Whole Blood 190 mg/dL (60-115)
[2025-01-31] MEDS: Albuterol/Iprat 2.5/0.5MG 3 ML AMPUL.NEB INHALE ×4 (07:43→19:31)
--- NOTE | 2025-01-31 07:53 | P.CONGS_ITS ---
History of Present Illness Consult details Consult date: 01/31/25 Requesting physician: Tony Drake Narrative: 59 lyle old female with PMH significant for diabetes mellitus, HTN, hyperlipidemia, peripheral neuropathy, GERD, admitted with acute hypoxic respiratory failure with unclear etiology with progressive respiratory distress requiring intubation 01/16/2025. She developed acute blood loss anemia and hemorrhagic shock secondary to lower GI bleed s/p embolization of branches of the inferior mesenteric artery supplying the proximal sigmoid colon on 01/22/2025. She was extubated 01/24/2025 and transferred to [facility], subsequently developed acute toxic metabolic encephalopathy likely 2/2 acute stroke. Apparently had recurrent diarrhea yesterday and therefore repeat CT scan abd/pelvis showed diffuse wall thickening of the colon with new pneumatosis in the cecum, large stool burden. General surgery consulted for the pneumotosis. This morning, patient reports some mild abd pain everywhere. She denies having diarrhea. Last BM in I&Os yesterday. Review of Systems 2 Constitutional: Constitutional: Denies fever(s) Gastrointestinal: Gastrointestinal: Reports as per HPI Integumentary/Breasts: Skin/Breast: Denies rash PMFSH Past Medical History Medical History (Updated 01/31/25 @ 08:18 by Jimena Chavez PA-C) Pneumatosis of intestines Dysphagia Anxiety disorder GERD (gastroesophageal reflux disease) Migraines Asthma On beta jordyn at home Elevated cholesterol HTN (hypertension) Smoker Diabetes Depression Heartburn Surgical History Surgical History Hx of left knee surgery History of tubal ligation History of esophagogastroduodenoscopy (EGD) H/O colonoscopy Hx of cholecystectomy Social History Social History Household Members: Children Household Members Other:: Daughter Housing: Apartment Housing Other:: pt states she lives in an apartment at her daughter's house Do you presently have visiting nurse or other home services: Yes (Daughter is US[employer]) Alcohol intake: former Comment: 1:1 sitter Patient Tobacco Use Status: Current everyday Tobacco user Tobacco use type: Cigarette Cigarette Packs Per Day: 1 Cigarettes Per Day: 20.0 Years Smoked: 15 Smoked in Last 30 Days: Yes e-Cigarette/Vaping Use: Never Used Second Hand Smoke Exposure: Yes Use of substances other than those prescribed or required for medical reasons: No Currently Displaying Signs/Symptoms of Drug Intoxication Withdrawal: No Have you been hit, kicked, punched, or otherwise hurt by someone within the past year? If so, by whom?: No Do you feel safe in your current relationship?: No Current Relationship Is there a partner from a previous relationship who is making you feel unsafe now?: No Are you made to feel afraid or neglected: No Advance Directives: No Advance Directives Information Provided: Yes Do you have a plan to hurt others: No Plan Recently lost weight without trying: Unsure Eating poorly because of decreased appetite: Yes Nutrition Risks: Poor intake 0-25% >4 days Patient : No : No service: No Current occupational status: disabled Travel History Ebola Risk: Travel/Contact With Anyone From Affected Area/s: No Meds Allergies Allergy/AdvReac Type Severity Reaction Status Date / Time iron Allergy Mild Difficulty Verified 01/15/25 16:21 Breathing Iodinated Contrast Media Allergy Unknown UNKNOWN Verified 01/15/25 16:21 [IV Dye, Iodine Containing] iodine [IODINE] Allergy Unknown RASH Verified 01/15/25 16:21 seafood Allergy Unknown Unknown Verified 01/15/25 16:21 Active Medications: Current Medications Albuterol/Ipratropium (Albuterol/Iprat 2.5/0.5mg 3 Ml Ampul.Neb) 3 ml INHALE RQ4H WHILE AWAKE [facility] Last Admin: 01/31/25 07:43 Dose: 3 ml Aspirin (Aspirin 81 Mg Tab.Chew) 81 mg PO DAILY [facility] Atorvastatin Calcium (Atorvastatin Calcium 40 Mg Tablet) 40 mg PO BEDTIME [facility] Last Admin: 01/30/25 22:02 Dose: Not Given Dextrose (Dextrose 50 % 25 Gm/50 Ml Syringe) 25 gm IVPUSH Q15M PRN; Protocol PRN Reason: per Hypoglycemia Standing Ord. Last Admin: 01/25/25 03:11 Dose: 25 gm Glucose (Glucose Gel 15 Gm Gel..Gram.) 15 gm PO Q15M PRN; Protocol PRN Reason: per Hypoglycemia Standing Ord. Last Admin: 01/28/25 01:25 Dose: 15 gm Piperacillin Sod/Tazobactam (Sod 4.5 gm/ Sodium Chloride) 100 mls @ 200 mls/hr IV Q6H [facility] Last Infusion: 01/31/25 04:50 Dose: Infused Insulin Glargine (Insulin Glargine,Hum.Rec.Anlog 100 Unit/Ml 10 Ml Vial) 5 unit SUBCUT BEDTIME [facility] Last Admin: 01/30/25 23:01 Dose: Not Given Insulin Human Lispro (Insulin Lispro 100 Unit/Ml 3 Ml Vial) 0 unit SUBCUT QIDACHS [facility]; Protocol Last Admin: 01/31/25 01:35 Dose: Not Given Loperamide HCl (Loperamide Hcl 2 Mg Capsule) 2 mg PO Q4H PRN PRN Reason: Diarrhea Metoprolol Tartrate (Metoprolol Tartrate 5 Mg/5 Ml Vial) 5 mg IVPUSH Q6H PRN; Protocol PRN Reason: SBP > 160 Last Admin: 01/25/25 15:57 Dose: 5 mg Nystatin (Nystatin Powder 15 Gm Bottle) 1 appl TOPICAL TID [facility]; Protocol Last Admin: 01/30/25 23:00 Dose: 1 appl Ondansetron HCl (Ondansetron Hcl 4 Mg/2 Ml Vial) 4 mg IVPUSH Q8H PRN PRN Reason: Nausea and Vomiting Sodium Chloride (0.9 % Sodium Chloride Flush 3 Ml Syringe) 3 ml IVFLUSH QSHIFT [facility] Last Admin: 01/30/25 19:30 Dose: 3 ml Home Medications ?Medication ?Instructions ?Recorded ?Confirmed ?Last Taken ?Type aspirin 81 mg tablet,delayed 81 mg PO DAILY 04/21/22 01/15/25 01/15/25 History release benztropine 0.5 mg tablet 0.5 mg PO BID 04/21/22 01/15/25 01/07/25 History insulin syringe-needle U-100 0.5 #10 ea 04/21/22 12/26/24 Unknown History mL 30 gauge x 1/2 (UltiCare) haloperidol 5 mg tablet 1 tab PO BID 05/06/22 01/15/25 01/15/25 History gabapentin 100 mg capsule 100 mg PO BEDTIME 05/30/24 01/15/25 01/06/25 History insulin glargine 100 unit/mL (3 20 unit subcut BEDTIME 08/27/24 01/15/25 01/15/25 History mL) subcutaneous pen (Lantus Solostar U-100 Insulin) blood sugar diagnostic (FreeStyle #10 ea 12/04/24 12/26/24 Unknown History Lite Strips) lancets 33 gauge (TRUEplus Lancets) #100 ea 12/04/24 12/26/24 Unknown History pen needle, diabetic 31 gauge x #100 ea 12/04/24 12/26/24 Unknown History 1/4 (Easy Touch) esomeprazole magnesium 40 mg 40 mg PO DAILY@0630 12/30/24 01/15/25 01/07/25 History capsule,delayed release (Nexium) Physical Exam 2 Vital Signs: Vital Signs: Last Vital Signs Temp 98.5 F 01/31/25 07:35 Pulse 90 01/31/25 07:43 Resp 18 01/31/25 07:43 BP 169/84 H 01/31/25 07:35 Pulse Ox 98 01/31/25 07:35 O2 Del Method Room Air 01/31/25 07:35 O2 Flow Rate 2 01/26/25 11:20 FiO2 26 01/25/25 05:00 BMI result Body Mass Index 27.7 Const: General: comfortable, no acute distress and alert Resp: Effort & Inspection: normal respiratory effort GI: Other: mild diffuse tenderness, no rebound Inspection: Yes normal to inspection and No distended Palpation (GI): S oft to palpation, no guarding and not rigid Skin: Other: warm and dry Results Labs 01/31/25 06:58 01/31/25 06:58 Labs: Abnormal lab results 01/30/25 01/30/25 01/30/25 Range/Units 10:42 11:23 17:40 RBC (4.20-5.50) X10*6/uL Hgb (12.0-16.0) g/dl Hct (37.0-47.0) % MCHC (31.0-35.0) g/dl RDW (11.0-16.0) % ABG pH at Pt Temp 7.51 H (7.35-7.45) ABG pCO2 at Pt Temp 26 L (32-45) mmHg ABG pO2 at Pt Temp 72 L (83-108) mmHg ABG HCO3 21 L (22-26) mmol/L Chloride (96-108) mmol/L Carbon Dioxide (22-29) mmol/L Anion Gap (12-20) POC Glucose 135 H 205 H (60-115) mg/dL Random Glucose (60-115) mg/dL Calcium (8.4-10.2) mg/dL Alkaline Phosphatase (39-117) U/L Total Protein (6.5-8.0) g/dL Albumin (3.5-5.0) g/dL 01/30/25 01/31/25 01/31/25 Range/Units 23:58 06:08 06:58 RBC 2.86 L (4.20-5.50) X10*6/uL Hgb 8.7 L (12.0-16.0) g/dl Hct 24.5 L (37.0-47.0) % MCHC 35.5 H (31.0-35.0) g/dl RDW 16.8 H (11.0-16.0) % ABG pH at Pt Temp (7.35-7.45) ABG pCO2 at Pt Temp (32-45) mmHg ABG pO2 at Pt Temp (83-108) mmHg ABG HCO3 (22-26) mmol/L Chloride 110 H (96-108) mmol/L Carbon Dioxide 19 L (22-29) mmol/L Anion Gap 11 L (12-20) POC Glucose 169 H 197 H (60-115) mg/dL Random Glucose 200 H (60-115) mg/dL Calcium 7.7 L (8.4-10.2) mg/dL Alkaline Phosphatase 146 H (39-117) U/L Total Protein 4.9 L (6.5-8.0) g/dL Albumin 2.7 L (3.5-5.0) g/dL 01/31/25 Range/Units 07:21 RBC (4.20-5.50) X10*6/uL Hgb (12.0-16.0) g/dl Hct (37.0-47.0) % MCHC (31.0-35.0) g/dl RDW (11.0-16.0) % ABG pH at Pt Temp (7.35-7.45) ABG pCO2 at Pt Temp (32-45) mmHg ABG pO2 at Pt Temp (83-108) mmHg ABG HCO3 (22-26) mmol/L Chloride (96-108) mmol/L Carbon Dioxide (22-29) mmol/L Anion Gap (12-20) POC Glucose 190 H (60-115) mg/dL Random Glucose (60-115) mg/dL Calcium (8.4-10.2) mg/dL Alkaline Phosphatase (39-117) U/L Total Protein (6.5-8.0) g/dL Albumin (3.5-5.0) g/dL Short CBC 01/31/25 Range/Units 06:58 WBC 5.2 (4.8-10.8) X10*3/uL Hgb 8.7 L (12.0-16.0) g/dl Hct 24.5 L (37.0-47.0) % Plt Count 349 (160-400) X10*3/uL BMP 01/31/25 06:58 Sodium 136 Potassium 3.5 Chloride 110 H Carbon Dioxide 19 L BUN 15 Creatinine 0.58 Calcium 7.7 L Liver Function 01/31/25 Range/Units 06:58 Total Bilirubin 0.7 (0.0-1.0) mg/dL Direct Bilirubin 0.3 (0.0-0.5) mg/dL AST 17 (5-31) U/L ALT 8 (0-31) U/L Alkaline Phosphatase 146 H (39-117) U/L Albumin 2.7 L (3.5-5.0) g/dL Urine 01/15/25 01/27/25 Range/Units 21:07 04:03 Urine Color Dark Yellow Yellow Urine Appearance Clear Cloudy Urine pH 6.0 5.5 (5.0-9.0) Ur Specific [place] 1.025 1.020 (1.005-1.025) Urine Protein 30 (1+) H 100 (2+) H (Neg-Trace) mg/dL Urine Glucose (UA) 500 H >=1000 H (Negative) mg/dL All other labs normal. Imaging Abdomen CT scan report/results: report reviewed and image reviewed Assessment and Plan (1) Pneumatosis of intestines: Status: Acute Plan 59 lyle old female with PMH significant for diabetes mellitus, HTN, hyperlipidemia, peripheral neuropathy, GERD, admitted with acute hypoxic respiratory failure requiring intubation, acute blood loss anemia and hemorrhagic shock secondary to lower GI bleed s/p embolization on 01/22/25. She had worsening diarrhea yesterday and therefore CT scan abd/pelvis was obtained which showed diffuse wall thickening of the colon with new pneumatosis in the cecum, large stool burden. No portal venous gas. C diff negative. Lactic acid normal. No leukocytosis. She is overall non toxic appearing. Her abdomen is very benign this morning with mild diffuse tenderness, no peritoneal signs. Recommend continuing supportive care at this point and agree with IV antibiotics. We will continue to monitor during her hospitalization. Procedures Date of Service Date of Service: 01/31/25
--- NOTE | 2025-01-31 08:17 | MHC.SLORD ---
Addendum entered and electronically signed by Karina Haro MA, CCC-EMBEDDED SYSTEMS SOFTWARE ENGINEER 01/31/25 18:03: Patient is now on a Clear Liquid Diet. EMBEDDED SYSTEMS SOFTWARE ENGINEER will continue to follow. Original Note: Speech Language Pathology Order Status: Patient is NPO at this time pending general surgery and GI consult. Once cleared by GI for solids, recommend continue on EMBED[employer]ED SYSTEMS SOFTWARE ENGINEER recommendation of puree(NDD1)/thin.
[2025-01-31] MEDS: 0.9 % Sodium Chloride Flush 3 ML SYRINGE IVFLUSH (08:38)
[2025-01-31] MEDS: Nystatin Powder 15 GM BOTTLE 1 APPL TOPICAL ×3 (08:40→20:51)
--- NOTE | 2025-01-31 09:36 | HO.PM.IMPN ---
Subjective Subjective Date of Service: 01/31/25 Interval History: watery/reddish mucus diarrhea Physical Exam Vital Signs: Vital Signs: Last Vital Signs Temp 98.5 F 01/31/25 07:35 Pulse 90 01/31/25 09:07 Resp 18 01/31/25 07:43 BP 169/84 H 01/31/25 07:35 Pulse Ox 98 01/31/25 07:35 O2 Del Method Room Air 01/31/25 07:35 O2 Flow Rate 2 01/26/25 11:20 FiO2 26 01/25/25 05:00 BMI result Body Mass Index 27.7 Const: General: comfortable, no acute distress and alert Resp: Effort & Inspection: normal respiratory effort GI: Other: mild diffuse tenderness, no rebound Inspection: Yes normal to inspection and No distended Palpation (GI): Soft to palpation, no guarding and not rigid Skin: Other: warm and dry Objective Data Active Medications Albuterol/Ipratropium (Albuterol/Iprat 2.5/0.5mg 3 Ml Ampul.Neb) 3 ml INHALE RQ4H WHILE AWAKE [facility] Last Admin: 01/31/25 07:43 Dose: 3 ml Documented By: MAICOL Aspirin (Aspirin 81 Mg Tab.Chew) 81 mg PO DAILY [facility] Last Admin: 01/31/25 08:39 Dose: Not Given Documented By: BRANDEE Non-Admin Reason: Physician Held Med Atorvastatin Calcium (Atorvastatin Calcium 40 Mg Tablet) 40 mg PO BEDTIME [facility] Last Admin: 01/30/25 22:02 Dose: Not Given Documented By: MARYANN Non-Admin Reason: NPO Dextrose (Dextrose 50 % 25 Gm/50 Ml Syringe) 25 gm IVPUSH Q15M PRN; Protocol PRN Reason: per Hypoglycemia Standing Ord. Last Admin: 01/25/25 03:11 Dose: 25 gm Documented By: PRINCE Comments: per provider Glucose (Glucose Gel 15 Gm Gel..Gram.) 15 gm PO Q15M PRN; Protocol PRN Reason: per Hypoglycemia Standing Ord. Last Admin: 01/28/25 01:25 Dose: 15 gm Documented By: ADRIEL Piperacillin Sod/Tazobactam (Sod 4.5 gm/ Sodium Chloride) 100 mls @ 200 mls/hr IV Q6H [facility] Last Infusion: 01/31/25 04:50 Dose: Infused Documented By: MARYANN Lactated Ringer's (Lr) 1,000 mls @ 80 mls/hr IVCONT .[id number] [facility] Insulin Glargine (Insulin Glargine,Hum.Rec.Anlog 100 Unit/Ml 10 Ml Vial) 5 unit SUBCUT BEDTIME [facility] Last Admin: 01/30/25 23:01 Dose: Not Given Documented By: MARYANN Non-Admin Reason: NPO Insulin Human Lispro (Insulin Lispro 100 Unit/Ml 3 Ml Vial) 0 unit SUBCUT QIDACHS [facility]; Protocol Last Admin: 01/31/25 08:38 Dose: Not Given Documented By: BRANDEE Non-Admin Reason: NPO Loperamide HCl (Loperamide Hcl 2 Mg Capsule) 2 mg PO Q4H PRN PRN Reason: Diarrhea Metoprolol Tartrate (Metoprolol Tartrate 5 Mg/5 Ml Vial) 5 mg IVPUSH Q6H PRN; Protocol PRN Reason: SBP > 160 Last Admin: 01/25/25 15:57 Dose: 5 mg Documented By: CHASE Nystatin (Nystatin Powder 15 Gm Bottle) 1 appl TOPICAL TID [facility]; Protocol Last Admin: 01/31/25 08:40 Dose: 1 appl Documented By: BRANDEE Ondansetron HCl (Ondansetron Hcl 4 Mg/2 Ml Vial) 4 mg IVPUSH Q8H PRN PRN Reason: Nausea and Vomiting Sodium Chloride (0.9 % Sodium Chloride Flush 3 Ml Syringe) 3 ml IVFLUSH QSHIFT [facility] Last Admin: 01/31/25 08:38 Dose: 3 ml Documented By: BRANDEE Labs 01/31/25 06:58 01/31/25 06:58 Labs: Laboratory Results - last 24 hr 01/30/25 01/30/25 01/30/25 08:58 10:42 11:23 MCV MCH MCHC RDW Plt Count MPV Absolute Nucleated RBC Nucleated RBC % (auto) O2 Saturation 99.0 ABG pH at Pt Temp 7.51 H ABG pCO2 at Pt Temp 26 L ABG pO2 at Pt Temp 72 L ABG HCO3 21 L ABG Base Excess (Actual) -0.8 Anion Gap Estim Creat Clear Calc Estimated GFR POC Glucose 135 H Random Glucose Lactic Acid Calcium Magnesium Total Bilirubin Direct Bilirubin AST ALT Alkaline Phosphatase Total Protein Albumin Stl C. cayetanensis PCR Stool Rotavirus A PCR Stl Adenov F PCR Stool Astrovirus (PCR) Stool Campylobacter PCR Stool Cryptosporidium PCR Stl Sh Tox Pr E STEC PCR Stool E coli O157 PCR Stl Enterotoxigenic E PCR Stool EPEC (PCR) Stool EAEC (PCR) Stl E. histolytica PCR Stool Giardia Lamblia PCR Stl P. shigelloides PCR Stool Salmonella PCR Stool Sapovirus (PCR) Stl Shigella/EIEC PCR St Y.enterocolitica PCR Stool Vibrio (PCR) Stl Vibrio cholerae PCR Stl Norovirus GI/GII PCR C. difficile Tox B Gene NEGATIVE 01/30/25 01/30/25 01/30/25 13:40 17:40 22:40 MCV MCH MCHC RDW Plt Count MPV Absolute Nucleated RBC Nucleated RBC % (auto) O2 Saturation ABG pH at Pt Temp ABG pCO2 at Pt Temp ABG pO2 at Pt Temp ABG HCO3 ABG Base Excess (Actual) Anion Gap Estim Creat Clear Calc Estimated GFR POC Glucose 205 H Random Glucose Lactic Acid 1.3 Calcium Magnesium Total Bilirubin Direct Bilirubin AST ALT Alkaline Phosphatase Total Protein Albumin Stl C. cayetanensis PCR Not Detected Stool Rotavirus A PCR Not Detected Stl Adenov F PCR Not Detected Stool Astrovirus (PCR) Not Detected Stool Campylobacter PCR Not Detected Stool Cryptosporidium PCR Not Detected Stl Sh Tox Pr E STEC PCR Not Detected Stool E coli O157 PCR Not applicable Stl Enterotoxigenic E PCR Not Detected Stool EPEC (PCR) Not Detected Stool EAEC (PCR) Not Detected Stl E. histolytica PCR Not Detected Stool Giardia Lamblia PCR Not Detected Stl P. shigelloides PCR Not Detected Stool Salmonella PCR Not Detected Stool Sapovirus (PCR) Not Detected Stl Shigella/EIEC PCR Not Detected St Y.enterocolitica PCR Not Detected Stool Vibrio (PCR) Not Detected Stl Vibrio cholerae PCR Not Detected Stl Norovirus GI/GII PCR Not Detected C. difficile Tox B Gene 01/30/25 01/31/25 01/31/25 23:58 06:08 06:58 MCV 85.7 MCH 30.4 MCHC 35.5 H RDW 16.8 H Plt Count 349 MPV 10.3 Absolute Nucleated RBC 0.000 Nucleated RBC % (auto) 0.0 O2 Saturation ABG pH at Pt Temp ABG pCO2 at Pt Temp ABG pO2 at Pt Temp ABG HCO3 ABG Base Excess (Actual) Anion Gap 11 L Estim Creat Clear Calc 96.1 Estimated GFR > 60 POC Glucose 169 H 197 H Random Glucose 200 H Lactic Acid Calcium 7.7 L Magnesium 1.8 Total Bilirubin 0.7 Direct Bilirubin 0.3 AST 17 ALT 8 Alkaline Phosphatase 146 H Total Protein 4.9 L Albumin 2.7 L Stl C. cayetanensis PCR Stool Rotavirus A PCR Stl Adenov F 40/ PCR Stool Astrovirus (PCR) Stool Campylobacter PCR Stool Cryptosporidium PCR Stl Sh Tox Pr E STEC PCR Stool E coli O157 PCR Stl Enterotoxigenic E PCR Stool EPEC (PCR) Stool EAEC (PCR) Stl E. histolytica PCR Stool Giardia Lamblia PCR Stl P. shigelloides PCR Stool Salmonella PCR Stool Sapovirus (PCR) Stl Shigella/EIEC PCR St Y.enterocolitica PCR Stool Vibrio (PCR) Stl Vibrio cholerae PCR Stl Norovirus GI/GII PCR C. difficile Tox B Gene 01/31/25 07:21 MCV MCH MCHC RDW Plt Count MPV Absolute Nucleated RBC Nucleated RBC % (auto) O2 Saturation ABG pH at Pt Temp ABG pCO2 at Pt Temp ABG pO2 at Pt Temp ABG HCO3 ABG Base Excess (Actual) Anion Gap Estim Creat Clear Calc Estimated GFR POC Glucose 190 H Random Glucose Lactic Acid Calcium Magnesium Total Bilirubin Direct Bilirubin AST ALT Alkaline Phosphatase Total Protein Albumin Stl C. cayetanensis PCR Stool Rotavirus A PCR Stl Adenov F PCR Stool Astrovirus (PCR) Stool Campylobacter PCR Stool Cryptosporidium PCR Stl Sh Tox Pr E STEC PCR Stool E coli O157 PCR Stl Enterotoxigenic E PCR Stool EPEC (PCR) Stool EAEC (PCR) Stl E. histolytica PCR Stool Giardia Lamblia PCR Stl P. shigelloides PCR Stool Salmonella PCR Stool Sapovirus (PCR) Stl Shigella/EIEC PCR St Y.enterocolitica PCR Stool Vibrio (PCR) Stl Vibrio cholerae PCR Stl Norovirus GI/GII PCR C. difficile Tox B Gene Microbiology Microbiology Results: Microbiology 01/27/25 04:03 Urine Culture - Final Urine Catheterized - Straight Catheter Citrobacter freundii Assessment and Plan (1) Acute hypokalemia: Status: Acute (2) CVA (cerebral vascular accident): Status: Acute (3) Hemorrhagic shock: Status: Acute (4) Acute blood loss anemia: Status: Acute (5) GI bleed: Status: Acute Plan 59F PMH diabetes mellitus, htn, hld, peripheral neuropathy, gerd, admitted with acute hypoxic respiratory failure with unclear etiology with progressive respiratory distress requiring intubation 01/16/2025. acute blood loss anemia secondary to lower GI bleed. Status post embolization on 01/22/2025. Extubated 01/24/2025. Acute lower GI bleed with acute blood loss anemia improved initially after 2 units PRBCs Tagged red cell scan was positive on 01/21/2025 status post embolization on 01/22/2025 Successful embolization of active bleeding identified from branches of the inferior mesenteric artery supplying the proximal sigmoid colon. Had red blood with stool while on rectal tube 01/26 Hb improved to 8.4 after 1 unit PRBCs (total 3 units) right sided ischemic colitis surgery and gi following ivf, monitor labs, empiric zosyn Acute Hypernatremia resolved Continue to monitor renal indices and urine output. Acute hypokalemia replacement follow BMP, mg Acute toxic metabolic Encephalopathy likely 2/2 acute stroke , improving MRI brain with small acute right occipital infarct and stigmata of prior CVAs with moderate changes of small vessel ischemia and numerous old lacunar type infarcts in the anterior gangliocapsular regions and left thalamus. Aspirin, statin Hemorrhagic shock resolved, titrated off pressor support in ICU monitor for rebleeding Acute hypoxic respiratory failure requiring ventilatory support likely a result of hemorrhagic shock. suspected PNA on admission, completed abx extubated 01/24/2025 weaned off to RA now Acute renal failure with metabolic acidosis resolved restarted Sodium bicarb, monitor vbg nephro following acute respiratory alkalosis physical deconditioning post ICU stay PT eval rec SNF placement Hypotension Placed on Clonidine patch in ICU, DCd; BP improved since then patient tends to have orthostatic hypotension with supine hypertension Metoprolol IV PRN ordered Insulin-dependent type 2 diabetes Sliding-scale insulin, Lantus 10 units Diabetic diet; ETL DATA ARCHITECT following Prophylaxis: Pneumatic compression Diet: ETL DATA ARCHITECT rec NDD1 w Honey thick liquids reason for continued hospitalization: ongoing diarrhea Quality Stroke Does the patient have a stroke diagnosis?: No VTE Prior VTE?: No VTE Risk Level:: Medical - moderate - high VTE Device Contraindication: N/A - Device Ordered VTE Drug Contraindication: N/A - Med Ordered
[2025-01-31 10:20] LABS: Lactate Dehydrogenase 175 U/L (122-220)
[2025-01-31 10:23] LABS: Lactic Acid 0.9 mmol/L (0.5-2.0)
--- NOTE | 2025-01-31 10:43 | MHC.CLN ---
F/U PT CURRENTLY NPO PENDING GI SX PREVIOUS PO INTAKE 25-50% WITH 1:1 FEED WHEN DIET TO ADVANCE; RE-START DIET OF 2000DM PUREED WITH NT LIQ RE-START ENSURE BID TO INCREASE KCALS SUPP TO PROVIDE 700KCALS, 40G PROTEIN FOLLOWING FOR DIET ADVANCEMENT
--- NOTE | 2025-01-31 10:53 | MHC.CM.PN ---
Per rounds, pt. is still acute, DCP is [facility] or [facility], referrals updated.
[2025-01-31] MEDS: Lactated Ringers 1,000 ML 80 ML IVCONT (11:00)
[2025-01-31 11:28] LABS: Glucose, Whole Blood 163 mg/dL (60-115)
--- NOTE | 2025-01-31 12:14 | PM.GIPN ---
Subjective Subjective Date of Service: 01/31/25 Interval History: Seen at bedside. Ct abd/pel ordered for persistent diarrhea that shows diffuse colitis as well as pneumatosis in cecum. No PV gas. Initially was planned for flex sig today which has been canceled due to concern for colon ischemia mynor of R colon. 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 Slightly increased WOB noted abd soft, mildly tender diffusely without guarding passed small amount of gelatinous red stool shortly before assessment LUE weakness Objective Data Labs 01/31/25 06:58 01/31/25 06:58 Labs: Laboratory Results - last 24 hr 01/30/25 01/30/25 01/30/25 13:40 17:40 22:40 WBC RBC Hgb Hct MCV MCH MCHC RDW Plt Count MPV Absolute Nucleated RBC Nucleated RBC % (auto) Sodium Potassium Chloride Carbon Dioxide Anion Gap BUN Creatinine Estim Creat Clear Calc Estimated GFR POC Glucose 205 H Random Glucose Lactic Acid 1.3 Calcium Magnesium Total Bilirubin Direct Bilirubin AST ALT Alkaline Phosphatase Lactate Dehydrogenase Total Protein Albumin Stl C. cayetanensis PCR Not Detected Stool Rotavirus A PCR Not Detected Stl Adenov F 40/41 PCR Not Detected Stool Astrovirus (PCR) Not Detected Stool Campylobacter PCR Not Detected Stool Cryptosporidium PCR Not Detected Stl Sh Tox Pr E STEC PCR Not Detected Stool E coli O157 PCR Not applicable Stl Enterotoxigenic E PCR Not Detected Stool EPEC (PCR) Not Detected Stool EAEC (PCR) Not Detected Stl E. histolytica PCR Not Detected Stool Giardia Lamblia PCR Not Detected Stl P. shigelloides PCR Not Detected Stool Salmonella PCR Not Detected Stool Sapovirus (PCR) Not Detected Stl Shigella/EIEC PCR Not Detected St Y.enterocolitica PCR Not Detected Stool Vibrio (PCR) Not Detected Stl Vibrio cholerae PCR Not Detected Stl Norovirus GI/GII PCR Not Detected Blood Type Antibody Screen 01/30/25 01/31/25 01/31/25 23:58 06:08 06:58 WBC 5.2 RBC 2.86 L Hgb 8.7 L Hct 24.5 L MCV 85.7 MCH 30.4 MCHC 35.5 H RDW 16.8 H Plt Count 349 MPV 10.3 Absolute Nucleated RBC 0.000 Nucleated RBC % (auto) 0.0 Sodium 136 Potassium 3.5 Chloride 110 H Carbon Dioxide 19 L Anion Gap 11 L BUN 15 Creatinine 0.58 Estim Creat Clear Calc 96.1 Estimated GFR > 60 POC Glucose 169 H 197 H Random Glucose 200 H Lactic Acid Calcium 7.7 L Magnesium 1.8 Total Bilirubin 0.7 Direct Bilirubin 0.3 AST 17 ALT 8 Alkaline Phosphatase 146 H Lactate Dehydrogenase Total Protein 4.9 L Albumin 2.7 L Stl C. cayetanensis PCR Stool Rotavirus A PCR Stl Adenov F 40 PCR Stool Astrovirus (PCR) Stool Campylobacter PCR Stool Cryptosporidium PCR Stl Sh Tox Pr E STEC PCR Stool E coli O157 PCR Stl Enterotoxigenic E PCR Stool EPEC (PCR) Stool EAEC (PCR) Stl E. histolytica PCR Stool Giardia Lamblia PCR Stl P. shigelloides PCR Stool Salmonella PCR Stool Sapovirus (PCR) Stl Shigella/EIEC PCR St Y.enterocolitica PCR Stool Vibrio (PCR) Stl Vibrio cholerae PCR Stl Norovirus GI/GII PCR Blood Type Antibody Screen 01/31/25 01/31/25 01/31/25 07:21 09:56 11:18 WBC RBC Hgb Hct MCV MCH MCHC RDW Plt Count MPV Absolute Nucleated RBC Nucleated RBC % (auto) Sodium Potassium Chloride Carbon Dioxide Anion Gap BUN Creatinine Estim Creat Clear Calc Estimated GFR POC Glucose 190 H 163 H Random Glucose Lactic Acid 0.9 Calcium Magnesium Total Bilirubin Direct Bilirubin AST ALT Alkaline Phosphatase Lactate Dehydrogenase 175 Total Protein Albumin Stl C. cayetanensis PCR Stool Rotavirus A PCR Stl Adenov F 40/ PCR Stool Astrovirus (PCR) Stool Campylobacter PCR Stool Cryptosporidium PCR Stl Sh Tox Pr E STEC PCR Stool E coli O157 PCR Stl Enterotoxigenic E PCR Stool EPEC (PCR) Stool EAEC (PCR) Stl E. histolytica PCR Stool Giardia Lamblia PCR Stl P. shigelloides PCR Stool Salmonella PCR Stool Sapovirus (PCR) Stl Shigella/EIEC PCR St Y.enterocolitica PCR Stool Vibrio (PCR) Stl Vibrio cholerae PCR Stl Norovirus GI/GII PCR Blood Type B Positive Antibody Screen NEGATIVE Microbiology Microbiology Results: Microbiology 01/27/25 04:03 Urine Catheterized - Straight Catheter Urine Culture - Final Citrobacter freundii 01/17/25 15:09 Bronch Lll Fungal Identification - Preliminary Pratibha albicans 01/21/25 04:02 Blood - Venous Blood Culture - Final No growth after 5 days. 01/21/25 04:02 Blood - Venous Blood Culture - Final No growth after 5 days. 01/15/25 16:42 Blood - Venous Blood Culture - Final No growth after 5 days. 01/15/25 16:37 Blood - Venous Blood Culture - Final No growth after 5 days. 01/17/25 15:09 Bronch Lll Direct Acid Fast Bacilli Smear - Final 01/17/25 15:09 Bronch Lll Gram Stain - Final 01/17/25 15:09 Bronch Lll - Final No growth after 2 days 01/17/25 15:09 Bronch Lll Routine Culture - Final 01/17/25 15:09 Bronch Rll Gram Stain - Final 01/17/25 15:09 Bronch Rll - Final No growth after 2 days 01/16/25 07:36 Aspirate - Suctioned Gram Stain - Final 01/16/25 07:36 Aspirate - Suctioned Sputum Culture - Final Procedures Date of Service Date of Service: 01/31/25 Progress Note: A&P Assessment and plan (1) Pneumatosis of intestines: Status: Acute (2) GI bleed: Status: Acute (3) Colitis: Status: Acute Plan Overall assessment concerning for colon ischemia with diffuse colon wall thickening and cecal pnuematosis noted on CT scan done overnight. Appreciate surgical input. Flex sig canceled as above to severity of colon ischemia indicated by pneumatosis. To recall, embolization was done for 2nd and 3rd order DAVID territories and pneumatosis noted in SMA territory so unlikely related to IR guided embolization. Plan: - Keep strict NPO - Fluid resuscitation - Broad spectrum Abx - Trend lactate - Check LDH - Consider CTA to r/o vascular occlusion Time Spent With Patient Time: Total time managing care of this patient today ____ minutes. Quality Stroke Does the patient have a stroke diagnosis?: No VTE Prior VTE?: No VTE Risk Level:: Medical - moderate - high VTE Device Contraindication: N/A - Device Ordered VTE Drug Contraindication: N/A - Med Ordered
[2025-01-31] MEDS: Insulin Lispro 100 UNIT/ML 3 ML VIAL SUBCUT ×3 (12:19→20:50)
[2025-01-31 17:29] LABS: Glucose, Whole Blood 215 mg/dL (60-115)
[2025-01-31 19:48] LABS: Glucose, Whole Blood 192 mg/dL (60-115)
--- NOTE | 2025-01-31 20:08 | PM.EVENT ---
Event Note Date of Service: 01/31/25 Event Note: Patient passing some reddish liquid stool material abdomen is still distended white count normal maybe mildly tender diffusely but no guarding no rebound no peritoneal signs some bowel sounds. In this patient with ongoing GI bleed question for ischemic bowel. Her vitals are good white count okay lactic acid was fine. I think at this point plan to continue with conservative therapy and care with IV antibiotics and bowel rest. If patient gets worse then may require subtotal colectomy with diverting ileostomy. This itself is a big procedure especially in her situation where she may have recently had a cerebral infarct as well. It would be to her advantage to try to manage this as best conservatively and less invasively as possible. Care was discussed with GI team and at this point we agree the continue with the close conservative approach as described above. If anything changes we will then discuss with her family the next steps. Time Spent With Patient Time: Total time managing care of this patient today ____ minutes.
[2025-01-31] MEDS: Insulin Glargine,Hum.rec.anlog 100 UNIT/ML 10 ML VIAL SUBCUT (20:49)
[2025-01-31] MEDS: Atorvastatin Calcium 40 MG TABLET PO (20:51)
[2025-02-01] VITALS (8 sets, daily range): BP systolic 124–161; BP diastolic 63–80; PULSE 86–104; RESP 18–26; TEMP 36.2–37.4; O2SAT 95–100; BMI 30.1
[2025-02-01] MEDS: Lactated Ringers 1,000 ML 80 ML IVCONT ×2 (00:20→12:39)
[2025-02-01] MEDS: Piperacillin Sodium/Tazobactam 4.5 GM in 0.9 % Sodium Chloride 100 ML IV ×4 (04:29→21:35)
[2025-02-01 06:19] LABS: Hematocrit 22.6 % (37.0-47.0); Mean Corpuscular HGB Conc 35.4 g/dl (31.0-35.0); Mean Corpuscular Hemoglobin 30.2 pg (27.0-33.0); Mean Corpuscular Volume 85.3 fL (80.0-98.0); Mean Platelet Volume 8.6 fL (9.4-12.3); Platelet Count 433 X10*3/uL (160-400); Red Blood Count 2.65 X10*6/uL (4.20-5.50); Red Cell Distribution Width 16.8 % (11.0-16.0); White Blood Count 5.2 X10*3/uL (4.8-10.8)
[2025-02-01 06:24] LABS: VBG Base Excess -0.9 mmol/L; VBG HCO3 21 mmol/L (22-26); VBG pCO2 27 mmHg; VBG pO2 34 mmHg
[2025-02-01 06:25] LABS: Venous Blood Gas Refer to POC result
[2025-02-01 07:13] LABS: Alanine Aminotransferase 6 U/L (0-31); Albumin Level 2.5 g/dL (3.5-5.0); Alkaline Phosphatase 125 U/L (39-117); Anion Gap 12 (12-20); Aspartate Amino Transferase 30 U/L (5-31); Bilirubin Direct 0.3 mg/dL (0.0-0.5); Bilirubin Total 0.6 mg/dL (0.0-1.0); Blood Urea Nitrogen 10 mg/dL (9-16); Calcium 7.5 mg/dL (8.4-10.2); Carbon Dioxide 19 mmol/L (22-29); Chloride 109 mmol/L (96-108); Estimated Glomerular Filt Rate > 60; Glucose Random 81 mg/dL (60-115); Magnesium 1.7 mg/dL (1.6-2.6); Potassium 2.8 mmol/L (3.3-5.1); Sodium 137 mmol/L (135-145); Total Protein 4.5 g/dL (6.5-8.0)
[2025-02-01 07:44] LABS: Glucose, Whole Blood 69 mg/dL (60-115)
[2025-02-01] MEDS: Albuterol/Iprat 2.5/0.5MG 3 ML AMPUL.NEB INHALE (07:47)
[2025-02-01] MEDS: Albumin Human 25 % 100 ML IV ×2 (08:00→12:40)
[2025-02-01] MEDS: Potassium Chloride Packet 20 MEQ PACKET 40 MEQ PO (08:07)
[2025-02-01] MEDS: 0.9 % Sodium Chloride Flush 3 ML SYRINGE IVFLUSH ×2 (08:12→22:00)
[2025-02-01] MEDS: Nystatin Powder 15 GM BOTTLE 1 APPL TOPICAL ×3 (08:13→21:50)
--- NOTE | 2025-02-01 09:56 | HO.PM.IMPN ---
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 Slightly increased WOB noted abd soft, mildly tender diffusely without guarding passed small amount of gelatinous red stool shortly before assessment LUE weakness Objective Data Active Medications Aspirin (Aspirin 81 Mg Tab.Chew) 81 mg PO DAILY [facility] Last Admin: 02/01/25 08:05 Dose: Not Given Documented By: SHABNAM Non-Admin Reason: Physician Held Med Atorvastatin Calcium (Atorvastatin Calcium 40 Mg Tablet) 40 mg PO BEDTIME [facility] Last Admin: 01/31/25 20:51 Dose: 40 mg Documented By: MARYANN Dextrose (Dextrose 50 % 25 Gm/50 Ml Syringe) 25 gm IVPUSH Q15M PRN; Protocol PRN Reason: per Hypoglycemia Standing Ord. Last Admin: 01/25/25 03:11 Dose: 25 gm Documented By: PRINCE Comments: per provider Glucose (Glucose Gel 15 Gm Gel..Gram.) 15 gm PO Q15M PRN; Protocol PRN Reason: per Hypoglycemia Standing Ord. Last Admin: 01/28/25 01:25 Dose: 15 gm Documented By: ADRIEL Piperacillin Sod/Tazobactam (Sod 4.5 gm/ Sodium Chloride) 100 mls @ 200 mls/hr IV Q6H [facility] Last Admin: 02/01/25 09:35 Dose: 200 mls/hr Documented By: SHABNAM Lactated Ringer's (Lr) 1,000 mls @ 80 mls/hr IVCONT .[id number] [facility] Last Admin: 02/01/25 00:20 Dose: 80 mls/hr Documented By: MARYANN Albumin Human (Kedbumin 25 %) 100 mls @ 100 mls/hr IV Q6H [facility] Stop: 02/01/25 14:29 Last Infusion: 02/01/25 09:00 Dose: Infused Documented By: SHABNAM Insulin Glargine (Insulin Glargine,Hum.Rec.Anlog 100 Unit/Ml 10 Ml Vial) 5 unit SUBCUT BEDTIME [facility] Last Admin: 01/31/25 20:49 Dose: 5 unit Documented By: MARYANN Insulin Human Lispro (Insulin Lispro 100 Unit/Ml 3 Ml Vial) 0 unit SUBCUT QIDACHS [facility]; Protocol Last Admin: 02/01/25 07:46 Dose: Not Given Documented By: SHABNAM Non-Admin Reason: No Insulin Coverage Loperamide HCl (Loperamide Hcl 2 Mg Capsule) 2 mg PO Q4H PRN PRN Reason: Diarrhea Metoprolol Tartrate (Metoprolol Tartrate 5 Mg/5 Ml Vial) 5 mg IVPUSH Q6H PRN; Protocol PRN Reason: SBP > 160 Last Admin: 01/25/25 15:57 Dose: 5 mg Documented By: CHASE Nystatin (Nystatin Powder 15 Gm Bottle) 1 appl TOPICAL TID [facility]; Protocol Last Admin: 02/01/25 08:13 Dose: 1 appl Documented By: SHABNAM Ondansetron HCl (Ondansetron Hcl 4 Mg/2 Ml Vial) 4 mg IVPUSH Q8H PRN PRN Reason: Nausea and Vomiting Sodium Chloride (0.9 % Sodium Chloride Flush 3 Ml Syringe) 3 [facility] Last Admin: 02/01/25 08:12 Dose: 3 ml Documented By: SHABNAM Labs 02/01/25 06:11 02/01/25 06:11 Labs: Laboratory Results - last 24 hr 01/31/25 01/31/25 01/31/25 09:56 11:18 17:24 MCV MCH MCHC RDW Plt Count MPV Absolute Nucleated RBC Nucleated RBC % (auto) VBG pH VBG pCO2 VBG pO2 VBG HCO3 VBG O2 Saturation VBG Base Excess Anion Gap Estim Creat Clear Calc Estimated GFR POC Glucose 163 H 215 H Random Glucose Lactic Acid 0.9 Calcium Magnesium Total Bilirubin Direct Bilirubin AST ALT Alkaline Phosphatase Lactate Dehydrogenase 175 Total Protein Albumin Blood Type B Positive Antibody Screen NEGATIVE 01/31/25 02/01/25 02/01/25 19:43 06:11 06:20 MCV 85.3 MCH 30.2 MCHC 35.4 H RDW 16.8 H Plt Count 433 H MPV 8.6 L Absolute Nucleated RBC 0.000 Nucleated RBC % (auto) 0.0 VBG pH 7.50 H VBG pCO2 27 VBG pO2 34 VBG HCO3 21 L VBG O2 Saturation 58.0 VBG Base Excess -0.9 Anion Gap 12 Estim Creat Clear Calc 100.0 Estimated GFR > 60 POC Glucose 192 H Random Glucose 81 Lactic Acid Calcium 7.5 L Magnesium 1.7 Total Bilirubin 0.6 Direct Bilirubin 0.3 AST 30 ALT 6 Alkaline Phosphatase 125 H Lactate Dehydrogenase Total Protein 4.5 L Albumin 2.5 L Blood Type Antibody Screen 02/01/25 07:39 MCV MCH MCHC RDW Plt Count MPV Absolute Nucleated RBC Nucleated RBC % (auto) VBG pH VBG pCO2 VBG pO2 VBG HCO3 VBG O2 Saturation VBG Base Excess Anion Gap Estim Creat Clear Calc Estimated GFR POC Glucose 69 Random Glucose Lactic Acid Calcium Magnesium Total Bilirubin Direct Bilirubin AST ALT Alkaline Phosphatase Lactate Dehydrogenase Total Protein Albumin Blood Type Antibody Screen Assessment and Plan (1) Acute hypokalemia: Status: Acute (2) CVA (cerebral vascular accident): Status: Acute (3) Hemorrhagic shock: Status: Acute (4) Acute blood loss anemia: Status: Acute (5) GI bleed: Status: Acute Plan 59F PMH diabetes mellitus, htn, hld, peripheral neuropathy, gerd, admitted with acute hypoxic respiratory failure with unclear etiology with progressive respiratory distress requiring intubation 01/16/2025. acute blood loss anemia secondary to lower GI bleed. Status post embolization on 01/22/2025. Extubated 01/24/2025. Acute lower GI bleed with acute blood loss anemia improved initially after 2 units PRBCs Tagged red cell scan was positive on 01/21/2025 status post embolization on 01/22/2025 Successful embolization of active bleeding identified from branches of the inferior mesenteric artery supplying the proximal sigmoid colon. Had red blood with stool while on rectal tube 01/26 Hb improved to 8.4 after 1 unit PRBCs (total 3 units) right sided ischemic colitis surgery and gi following ivf, monitor labs, empiric zosyn, will give albumin iv today Acute Hypernatremia resolved Continue to monitor renal indices and urine output. Acute hypokalemia replacement follow BMP, mg Acute toxic metabolic Encephalopathy likely 2/2 acute stroke , improving MRI brain with small acute right occipital infarct and stigmata of prior CVAs with moderate changes of small vessel ischemia and numerous old lacunar type infarcts in the anterior gangliocapsular regions and left thalamus. Aspirin, statin Hemorrhagic shock resolved, titrated off pressor support in ICU monitor for rebleeding Acute hypoxic respiratory failure requiring ventilatory support likely a result of hemorrhagic shock. 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
[2025-02-01 11:27] LABS: Glucose, Whole Blood 108 mg/dL (60-115)
--- NOTE | 2025-02-01 16:44 | PM.PNGS ---
Subjective Subjective Date of Service: 02/01/25 Interval history: pt tolerating liquid diet hgb a little lower denies pain Physical Exam Vital Signs: Vital Signs: Last Vital Signs Temp 97.4 F 02/01/25 15:42 Pulse 104 H 02/01/25 15:42 Resp 20 02/01/25 15:42 BP 124/63 02/01/25 15:42 Pulse Ox 95 02/01/25 15:42 O2 Del Method Room Air 02/01/25 15:42 O2 Flow Rate 2 01/26/25 11:20 FiO2 26 01/25/25 05:00 BMI result Body Mass Index 30.1 GI: Other: abdomen a bit distended nontender to day to deep palpation diffusely Objective Data Active Medications Aspirin (Aspirin 81 Mg Tab.Chew) 81 mg PO DAILY [facility] Last Admin: 02/01/25 08:05 Dose: Not Given Documented By: SHABNAM Non-Admin Reason: Physician Held Med Atorvastatin Calcium (Atorvastatin Calcium 40 Mg Tablet) 40 mg PO BEDTIME [facility] Last Admin: 01/31/25 20:51 Dose: 40 mg Documented By: MARAYNN Dextrose (Dextrose 50 % 25 Gm/50 Ml Syringe) 25 gm IVPUSH Q15M PRN; Protocol PRN Reason: per Hypoglycemia Standing Ord. Last Admin: 01/25/25 03:11 Dose: 25 gm Documented By: PRINCE Comments: per provider Glucose (Glucose Gel 15 Gm Gel..Gram.) 15 gm PO Q15M PRN; Protocol PRN Reason: per Hypoglycemia Standing Ord. Last Admin: 01/28/25 01:25 Dose: 15 gm Documented By: ADRIEL Piperacillin Sod/Tazobactam (Sod 4.5 gm/ Sodium Chloride) 100 mls @ 200 mls/hr IV Q6H [facility] Last Infusion: 02/01/25 16:10 Dose: Infused Documented By: SHABNAM Lactated Ringer's (Lr) 1,000 mls @ 80 mls/hr IVCONT .[id number] [facility] Last Admin: 02/01/25 12:39 Dose: 80 mls/hr Documented By: SHABNAM Insulin Glargine (Insulin Glargine,Hum.Rec.Anlog 100 Unit/Ml 10 Ml Vial) 5 unit SUBCUT BEDTIME [facility] Last Admin: 01/31/25 20:49 Dose: 5 unit Documented By: MARYANN Insulin Human Lispro (Insulin Lispro 100 Unit/Ml 3 Ml Vial) 0 unit SUBCUT [facility]; Protocol Last Admin: 02/01/25 11:36 Dose: Not Given Documented By: SHABNAM Non-Admin Reason: No Insulin Coverage Loperamide HCl (Loperamide Hcl 2 Mg Capsule) 2 mg PO Q4H PRN PRN Reason: Diarrhea Metoprolol Tartrate (Metoprolol Tartrate 5 Mg/5 Ml Vial) 5 mg IVPUSH Q6H PRN; Protocol PRN Reason: SBP > 160 Last Admin: 01/25/25 15:57 Dose: 5 mg Documented By: CHASE Nystatin (Nystatin Powder 15 Gm Bottle) 1 appl TOPICAL TID [facility]; Protocol Last Admin: 02/01/25 15:39 Dose: 1 appl Documented By: SHABNAM Ondansetron HCl (Ondansetron Hcl 4 Mg/2 Ml Vial) 4 mg IVPUSH Q8H PRN PRN Reason: Nausea and Vomiting Sodium Chloride (0.9 % Sodium Chloride Flush 3 Ml Syringe) 3 ml IVFLUSH QSHIFT [facility] Last Admin: 02/01/25 15:28 Dose: Not Given Documented By: SHABNAM Non-Admin Reason: IV Running Labs 02/01/25 06:11 02/01/25 06:11 Labs: Laboratory Results - last 24 hr 01/31/25 01/31/25 02/01/25 17:24 19:43 06:11 MCV 85.3 MCH 30.2 MCHC 35.4 H RDW 16.8 H Plt Count 433 H MPV 8.6 L Absolute Nucleated RBC 0.000 Nucleated RBC % (auto) 0.0 VBG pH VBG pCO2 VBG pO2 VBG HCO3 VBG O2 Saturation VBG Base Excess Anion Gap 12 Estim Creat Clear Calc 100.0 Estimated GFR > 60 POC Glucose 215 H 192 H Random Glucose 81 Calcium 7.5 L Magnesium 1.7 Total Bilirubin 0.6 Direct Bilirubin 0.3 AST 30 ALT 6 Alkaline Phosphatase 125 H Total Protein 4.5 L Albumin 2.5 L 02/01/25 02/01/25 02/01/25 06:20 07:39 11:23 MCV MCH MCHC RDW Plt Count MPV Absolute Nucleated RBC Nucleated RBC % (auto) VBG pH 7.50 H VBG pCO2 27 VBG pO2 34 VBG HCO3 21 L VBG O2 Saturation 58.0 VBG Base Excess -0.9 Anion Gap Estim Creat Clear Calc Estimated GFR POC Glucose 69 108 Random Glucose Calcium Magnesium Total Bilirubin Direct Bilirubin AST ALT Alkaline Phosphatase Total Protein Albumin Procedures Date of Service Date of Service: 02/01/25 Progress Note: A&P Assessment and plan (1) Pneumatosis of intestines: Status: Acute Assessment and Plan: pt with complex abdominal process - ad GI bleed and underwent embolization which stopped bleed. pt then with more distension and bloody mucus material from rectum adn follow up CT scan showing pneumatosis in cecum - pt relatively stable re blood work and vitals and not very tender -? etiology - could have new area of colitis or new ischemia or ischemia from some area of embolized bowel although that was the left side and pneumatosis finding on right. If pt needs surgical intervention she will require a subtotal colectomy and permanent end ileostomy - big operation , high medical risk especially with her recent stroke Goal would be to continue with her current conservative care and only go to OR for significant clinical change Time Spent With Patient Time: Total time managing care of this patient today ____ minutes. Quality Stroke Does the patient have a stroke diagnosis?: No VTE Prior VTE?: No VTE Risk Level:: Medical - moderate - high VTE Device Contraindication: N/A - Device Ordered VTE Drug Contraindication: N/A - Med Ordered
[2025-02-01] MEDS: ondansetron HCL 4 MG/2 ML VIAL IVPUSH (17:13)
[2025-02-01 17:39] LABS: Glucose, Whole Blood 152 mg/dL (60-115)
[2025-02-01 20:22] LABS: Glucose, Whole Blood 154 mg/dL (60-115)
[2025-02-01] MEDS: Insulin Lispro 100 UNIT/ML 3 ML VIAL SUBCUT (21:35)
[2025-02-01] MEDS: Insulin Glargine,Hum.rec.anlog 100 UNIT/ML 10 ML VIAL SUBCUT (21:35)
[2025-02-01] MEDS: Atorvastatin Calcium 40 MG TABLET PO (21:52)
[2025-02-02] VITALS (8 sets, daily range): BP systolic 128–162; BP diastolic 65–81; PULSE 77–89; RESP 17–18; TEMP 36.4–37; O2SAT 97–100; BMI 32.0
[2025-02-02] MEDS: Lactated Ringers 1,000 ML 80 ML IVCONT ×2 (01:18→13:52)
[2025-02-02] MEDS: Piperacillin Sodium/Tazobactam 4.5 GM in 0.9 % Sodium Chloride 100 ML IV ×4 (04:46→22:45)
[2025-02-02 07:23] LABS: Anion Gap 11 (12-20); Blood Urea Nitrogen 8 mg/dL (9-16); Calcium 7.4 mg/dL (8.4-10.2); Carbon Dioxide 17 mmol/L (22-29); Chloride 111 mmol/L (96-108); Creatinine Clr Calc Pharmacy 101.4; Estimated Glomerular Filt Rate > 60; Glucose Random 104 mg/dL (60-115); Potassium 2.6 mmol/L (3.3-5.1); Sodium 136 mmol/L (135-145)
[2025-02-02 07:32] LABS: Glucose, Whole Blood 89 mg/dL (60-115)
[2025-02-02 07:54] LABS: Hemoglobin 7.2 g/dl (12.0-16.0); Mean Corpuscular HGB Conc 35.8 g/dl (31.0-35.0); Mean Corpuscular Volume 83.8 fL (80.0-98.0); Mean Platelet Volume 10.1 fL (9.4-12.3); PLT CLUMP 1; Red Cell Distribution Width 16.4 % (11.0-16.0)
[2025-02-02 08:08] LABS: Hematocrit 20.1 % (37.0-47.0)
[2025-02-02] MEDS: Potassium Chloride Packet 20 MEQ PACKET 40 MEQ PO (08:08)
[2025-02-02] MEDS: Potassium Chloride/H20 10 MEQ/100 ML PIGGYBACK 100 MEQ IV ×4 (08:11→12:13)
[2025-02-02] MEDS: 0.9 % Sodium Chloride Flush 3 ML SYRINGE IVFLUSH ×2 (08:12→20:07)
[2025-02-02] MEDS: Nystatin Powder 15 GM BOTTLE 1 APPL TOPICAL ×3 (08:13→20:07)
[2025-02-02 08:33] LABS: White Blood Count 3.9 X10*3/uL (4.8-10.8)
--- NOTE | 2025-02-02 09:10 | P.PNIM_ITS ---
Subjective Subjective Date of Service: 02/02/25 Interval History: still with diarrhea but a little improved no abd pain Physical Exam 2 Vital Signs: Vital Signs: Last Vital Signs Temp 98.6 F 02/02/25 03:29 Pulse 77 02/02/25 03:29 Resp 18 02/02/25 03:29 BP 155/80 H 02/02/25 03:29 Pulse Ox 97 02/02/25 03:29 O2 Del Method Room Air 02/02/25 03:29 O2 Flow Rate 2 01/26/25 11:20 FiO2 26 01/25/25 05:00 BMI result Body Mass Index 32.0 GI: Other: abdomen a bit distended nontender to day to deep palpation diffusely Objective Data Active Medications Aspirin (Aspirin 81 Mg Tab.Chew) 81 mg PO DAILY [facility] Last Admin: 02/02/25 09:09 Dose: Not Given Documented By: SHABNAM Non-Admin Reason: low H&H. MD aware Atorvastatin Calcium (Atorvastatin Calcium 40 Mg Tablet) 40 mg PO BEDTIME [facility] Last Admin: 02/01/25 21:52 Dose: 40 mg Documented By: MARYANN Dextrose (Dextrose 50 % 25 Gm/50 Ml Syringe) 25 gm IVPUSH Q15M PRN; Protocol PRN Reason: per Hypoglycemia Standing Ord. Last Admin: 01/25/25 03:11 Dose: 25 gm Documented By: PRINCE Comments: per provider Glucose (Glucose Gel 15 Gm Gel..Gram.) 15 gm PO Q15M PRN; Protocol PRN Reason: per Hypoglycemia Standing Ord. Last Admin: 01/28/25 01:25 Dose: 15 gm Documented By: ADRIEL Piperacillin Sod/Tazobactam (Sod 4.5 gm/ Sodium Chloride) 100 mls @ 200 mls/hr IV Q6H [facility] Last Infusion: 02/02/25 06:22 Dose: Infused Documented By: MARYANN Lactated Ringer's (Lr) 1,000 mls @ 80 mls/hr IVCONT .[id number] [facility] Last Admin: 02/02/25 01:18 Dose: 80 mls/hr Documented By: MARYANN Potassium Chloride (Potassium Chloride/H20) 10 meq in 100 mls @ 100 mls/hr IV Q1H [facility] Stop: 02/02/25 11:29 Last Admin: 02/02/25 08:11 Dose: 100 mls/hr Documented By: SHABNAM Insulin Glargine (Insulin Glargine,Hum.Rec.Anlog 100 Unit/Ml 10 Ml Vial) 5 unit SUBCUT BEDTIME [facility] Last Admin: 02/01/25 21:35 Dose: 5 unit Documented By: MARYANN Insulin Human Lispro (Insulin Lispro 100 Unit/Ml 3 Ml Vial) 0 unit SUBCUT QIDACHS [facility]; Protocol Last Admin: 02/02/25 07:40 Dose: Not Given Documented By: SHABNAM Non-Admin Reason: No Insulin Coverage Loperamide HCl (Loperamide Hcl 2 Mg Capsule) 2 mg PO Q4H PRN PRN Reason: Diarrhea Metoprolol Tartrate (Metoprolol Tartrate 5 Mg/5 Ml Vial) 5 mg IVPUSH Q6H PRN; Protocol PRN Reason: SBP > 160 Last Admin: 01/25/25 15:57 Dose: 5 mg Documented By: CHASE Nystatin (Nystatin Powder 15 Gm Bottle) 1 appl TOPICAL TID [facility]; Protocol Last Admin: 02/02/25 08:13 Dose: 1 appl Documented By: SHABNAM Ondansetron HCl (Ondansetron Hcl 4 Mg/2 Ml Vial) 4 mg IVPUSH Q8H PRN PRN Reason: Nausea and Vomiting Last Admin: 02/01/25 17:13 Dose: 4 mg Documented By: SHABNAM Sodium Chloride (0.9 % Sodium Chloride Flush 3 Ml Syringe) 3 ml IVFLUSH QSHIFT [facility] Last Admin: 02/02/25 08:12 Dose: 3 ml Documented By: SHABNAM Labs 02/02/25 07:15 02/02/25 06:24 Labs: Laboratory Results - last 24 hr 02/01/25 02/01/25 02/01/25 11:23 17:34 20:18 MCV MCH MCHC RDW Plt Count MPV Absolute Nucleated RBC Nucleated RBC % (auto) Anion Gap Estim Creat Clear Calc Estimated GFR POC Glucose 108 152 H 154 H Random Glucose Calcium 02/02/25 02/02/25 02/02/25 06:24 07:15 07:28 MCV 83.8 MCH 30.0 MCHC 35.8 H RDW 16.4 H Plt Count TNP MPV 10.1 Absolute Nucleated RBC 0.000 Nucleated RBC % (auto) 0.0 Anion Gap 11 L Estim Creat Clear Calc 101.4 Estimated GFR > 60 POC Glucose 89 Random Glucose 104 Calcium 7.4 L Microbiology Microbiology Results: Microbiology 01/31/25 16:34 Blood Culture - Preliminary Blood - Venous No growth after 24 hours. 01/31/25 16:34 Blood Culture - Preliminary Blood - Venous No growth after 24 hours. Assessment and Plan (1) Acute hypokalemia: Status: Acute (2) CVA (cerebral vascular accident): Status: Acute (3) Hemorrhagic shock: Status: Acute (4) Acute blood loss anemia: Status: Acute (5) GI bleed: Status: Acute Plan 59F PMH diabetes mellitus, htn, hld, peripheral neuropathy, gerd, admitted with acute hypoxic respiratory failure with unclear etiology with progressive respiratory distress requiring intubation 01/16/2025. acute blood loss anemia secondary to lower GI bleed. Status post embolization on 01/22/2025. Extubated 01/24/2025. Acute lower GI bleed with acute blood loss anemia improved initially after 2 units PRBCs Tagged red cell scan was positive on 01/21/2025 status post embolization on 01/22/2025 Successful embolization of active bleeding identified from branches of the inferior mesenteric artery supplying the proximal sigmoid colon. Had red blood with stool while on rectal tube 01/26 Hb improved to 8.4 after 1 unit PRBCs (total 3 units) will give 4th unit 02/02/25 right sided ischemic colitis surgery and gi following ivf, monitor labs, empiric zosyn Acute Hypernatremia resolved Continue to monitor renal indices and urine output. Acute hypokalemia replacement follow BMP, mg Acute toxic metabolic Encephalopathy likely 2/2 acute stroke , improving MRI brain with small acute right occipital infarct and stigmata of prior CVAs with moderate changes of small vessel ischemia and numerous old lacunar type infarcts in the anterior gangliocapsular regions and left thalamus. Aspirin, statin Hemorrhagic shock resolved, titrated off pressor support in ICU monitor for rebleeding Acute hypoxic respiratory failure requiring ventilatory support likely a result of hemorrhagic shock. suspected PNA on admission, completed abx extubated 01/24/2025 weaned off to RA now Acute renal failure with metabolic acidosis resolved restarted Sodium bicarb, monitor vbg nephro following acute respiratory alkalosis physical deconditioning post ICU stay PT eval rec SNF placement Hypotension Placed on Clonidine patch in ICU, DCd; BP improved since then patient tends to have orthostatic hypotension with supine hypertension Metoprolol IV PRN ordered Insulin-dependent type 2 diabetes Sliding-scale insulin, Lantus 10 units Diabetic diet; [employer] following Prophylaxis: Pneumatic compression reason for continued hospitalization: ongoing diarrhea Quality Stroke Does the patient have a stroke diagnosis?: No VTE Prior VTE?: No VTE Risk Level:: Medical - moderate - high VTE Device Contraindication: N/A - Device Ordered VTE Drug Contraindication: N/A - Med Ordered
[2025-02-02 11:47] LABS: Glucose, Whole Blood 90 mg/dL (60-115)
--- NOTE | 2025-02-02 15:56 | P.PNGS_ITS ---
Subjective Subjective Date of Service: 02/02/25 Interval history: Patient doing okay says no pain. Apparently nursing team who said that she has passed yellow brownish stools not bloody in appearance. However her hematocrit has fallen down to 20 today. Physical Exam 2 Vital Signs: Vital Signs: Last Vital Signs Temp 97.6 F 02/02/25 15:49 Pulse 86 02/02/25 15:49 Resp 18 02/02/25 15:49 BP 156/76 H 02/02/25 15:49 Pulse Ox 100 02/02/25 15:49 O2 Del Method Room Air 02/02/25 15:49 O2 Flow Rate 2 01/26/25 11:20 FiO2 26 01/25/25 05:00 BMI result Body Mass Index 32.0 GI: Other: Abdomen is soft nontender a little distended good bowel sounds Objective Data Active Medications Aspirin (Aspirin 81 Mg Tab.Chew) 81 mg PO DAILY [facility] Last Admin: 02/02/25 09:09 Dose: Not Given Documented By: SHABNAM Non-Admin Reason: low H&H. MD aware Atorvastatin Calcium (Atorvastatin Calcium 40 Mg Tablet) 40 mg PO BEDTIME [facility] Last Admin: 02/01/25 21:52 Dose: 40 mg Documented By: MARYANN Dextrose (Dextrose 50 % 25 Gm/50 Ml Syringe) 25 gm IVPUSH Q15M PRN; Protocol PRN Reason: per Hypoglycemia Standing Ord. Last Admin: 01/25/25 03:11 Dose: 25 gm Documented By: PRINCE Comments: per provider Glucose (Glucose Gel 15 Gm Gel..Gram.) 15 gm PO Q15M PRN; Protocol PRN Reason: per Hypoglycemia Standing Ord. Last Admin: 01/28/25 01:25 Dose: 15 gm Documented By: ADRIEL Piperacillin Sod/Tazobactam (Sod 4.5 gm/ Sodium Chloride) 100 mls @ 200 mls/hr IV Q6H [facility] Last Admin: 02/02/25 15:45 Dose: 200 mls/hr Documented By: SHABNAM Lactated Ringer's (Lr) 1,000 mls @ 80 mls/hr IVCONT .[id number] [facility] Last Admin: 02/02/25 13:52 Dose: 80 mls/hr Documented By: SHABNAM Insulin Glargine (Insulin Glargine,Hum.Rec.Anlog 100 Unit/Ml 10 Ml Vial) 5 unit SUBCUT BEDTIME [facility] Last Admin: 02/01/25 21:35 Dose: 5 unit Documented By: MARYANN Insulin Human Lispro (Insulin Lispro 100 Unit/Ml 3 Ml Vial) 0 unit SUBCUT QIDACHS [facility]; Protocol Last Admin: 02/02/25 11:55 Dose: Not Given Documented By: SHABNAM Non-Admin Reason: No Insulin Coverage Loperamide HCl (Loperamide Hcl 2 Mg Capsule) 2 mg PO Q4H PRN PRN Reason: Diarrhea Metoprolol Tartrate (Metoprolol Tartrate 5 Mg/5 Ml Vial) 5 mg IVPUSH Q6H PRN; Protocol PRN Reason: SBP > 160 Last Admin: 01/25/25 15:57 Dose: 5 mg Documented By: CHASE Nystatin (Nystatin Powder 15 Gm Bottle) 1 appl TOPICAL TID [facility]; Protocol Last Admin: 02/02/25 15:43 Dose: 1 appl Documented By: SHABNAM Ondansetron HCl (Ondansetron Hcl 4 Mg/2 Ml Vial) 4 mg IVPUSH Q8H PRN PRN Reason: Nausea and Vomiting Last Admin: 02/01/25 17:13 Dose: 4 mg Documented By: SHABNAM Sodium Chloride (0.9 % Sodium Chloride Flush 3 Ml Syringe) 3 ml IVFLUSH QSHIFT [facility] Last Admin: 02/02/25 15:35 Dose: Not Given Documented By: SHABNAM Non-Admin Reason: IV Running Labs 02/02/25 07:15 02/02/25 06:24 Labs: Laboratory Results - last 24 hr 01/31/25 02/01/25 02/01/25 09:56 17:34 20:18 MCV MCH MCHC RDW Plt Count MPV Absolute Nucleated RBC Nucleated RBC % (auto) Anion Gap Estim Creat Clear Calc Estimated GFR POC Glucose 152 H 154 H Random Glucose Calcium Blood Type B Positive Antibody Screen NEGATIVE Crossmatch See Detail 02/02/25 02/02/25 02/02/25 06:24 07:15 07:28 MCV 83.8 MCH 30.0 MCHC 35.8 H RDW 16.4 H Plt Count TNP MPV 10.1 Absolute Nucleated RBC 0.000 Nucleated RBC % (auto) 0.0 Anion Gap 11 L Estim Creat Clear Calc 101.4 Estimated GFR > 60 POC Glucose 89 Random Glucose 104 Calcium 7.4 L Blood Type Antibody Screen Crossmatch 02/02/25 11:42 MCV MCH MCHC RDW Plt Count MPV Absolute Nucleated RBC Nucleated RBC % (auto) Anion Gap Estim Creat Clear Calc Estimated GFR POC Glucose 90 Random Glucose Calcium Blood Type Antibody Screen Crossmatch Microbiology Microbiology Results: Microbiology 01/31/25 16:34 Blood Culture - Preliminary Blood - Venous No growth after 24 hours. 01/31/25 16:34 Blood Culture - Preliminary Blood - Venous No growth after 24 hours. Procedures Date of Service Date of Service: 02/02/25 Progress Note: A&P Assessment and plan (1) Pneumatosis of intestines: Status: Acute Assessment and Plan: 59-year-old female with GI bleed status post embolization then with continuing bloody bowel movements questionable ischemic bowel pneumatosis changes in the right colon however patient relatively hemodynamically stable and high-risk for operative complications as she would need a subtotal colectomy and with her recent stroke would be high operative risk. Seems like she is doing better. Would recommend continuing with the plan to transfuse her as the GI bleeding issue seems to be improving. White count is not increased. We will continue to follow Time Spent With Patient Time: Total time managing care of this patient today ____ minutes. Quality Stroke Does the patient have a stroke diagnosis?: No VTE Prior VTE?: No VTE Risk Level:: Medical - moderate - high VTE Device Contraindication: N/A - Device Ordered VTE Drug Contraindication: N/A - Med Ordered
[2025-02-02 16:20] LABS: Glucose, Whole Blood 86 mg/dL (60-115)
[2025-02-02] MEDS: Atorvastatin Calcium 40 MG TABLET PO (20:07)
[2025-02-02] MEDS: Insulin Glargine,Hum.rec.anlog 100 UNIT/ML 10 ML VIAL SUBCUT (20:07)
[2025-02-02 20:37] LABS: Glucose, Whole Blood 120 mg/dL (60-115)
[2025-02-02] MEDS: Melatonin 3 MG TABLET 6 MG PO (22:48)
[2025-02-03] VITALS (8 sets, daily range): BP systolic 105–184; BP diastolic 62–84; PULSE 85–94; RESP 16–18; TEMP 36.2–37.2; O2SAT 91–100; BMI 32.2
[2025-02-03] MEDS: Lactated Ringers 1,000 ML 80 ML IVCONT ×2 (00:37→14:16)
[2025-02-03] MEDS: Piperacillin Sodium/Tazobactam 4.5 GM in 0.9 % Sodium Chloride 100 ML IV ×4 (04:49→23:17)
[2025-02-03 07:41] LABS: Hematocrit 25.9 % (37.0-47.0); Hemoglobin 9.4 g/dl (12.0-16.0); Mean Corpuscular HGB Conc 36.3 g/dl (31.0-35.0); Mean Corpuscular Hemoglobin 30.2 pg (27.0-33.0); Mean Corpuscular Volume 83.3 fL (80.0-98.0); Mean Platelet Volume 8.8 fL (9.4-12.3); Platelet Count 378 X10*3/uL (160-400); Red Blood Count 3.11 X10*6/uL (4.20-5.50); Red Cell Distribution Width 16.7 % (11.0-16.0); White Blood Count 4.4 X10*3/uL (4.8-10.8)
[2025-02-03 07:43] LABS: Glucose, Whole Blood 50 mg/dL (60-115)
[2025-02-03 08:00] LABS: Anion Gap 12 (12-20); Blood Urea Nitrogen 9 mg/dL (9-16); Calcium 7.4 mg/dL (8.4-10.2); Carbon Dioxide 18 mmol/L (22-29); Chloride 110 mmol/L (96-108); Creatinine Clr Calc Pharmacy 107.3; Estimated Glomerular Filt Rate > 60; Magnesium 1.5 mg/dL (1.6-2.6); Sodium 137 mmol/L (135-145)
[2025-02-03 08:04] LABS: Glucose Random 48 mg/dL (60-115); Potassium 2.7 mmol/L (3.3-5.1)
[2025-02-03 08:33] LABS: Glucose, Whole Blood 66 mg/dL (60-115)
[2025-02-03] MEDS: Aspirin 81 MG TAB.CHEW PO (08:35)
[2025-02-03] MEDS: Potassium Chloride Packet 20 MEQ PACKET 40 MEQ PO (08:35)
[2025-02-03] MEDS: 0.9 % Sodium Chloride Flush 3 ML SYRINGE IVFLUSH ×2 (08:36→16:01)
[2025-02-03] MEDS: Magnesium Sulfate/H2O 2 GM/50 ML PIGGYBACK IV (08:37)
[2025-02-03] MEDS: Potassium Chloride/H20 10 MEQ/100 ML PIGGYBACK 100 MEQ IV ×4 (08:37→14:00)
[2025-02-03] MEDS: Nystatin Powder 15 GM BOTTLE 1 APPL TOPICAL ×3 (08:50→23:17)
--- NOTE | 2025-02-03 09:59 | P.PNGS_ITS ---
Subjective Subjective Date of Service: 02/04/25 Interval history: Currently denies abdominal pain Had a lot of diarrhea diarrhea yesterday but this seems to have slowed down Hemoglobin after transfusion Physical Exam 2 Vital Signs: Vital Signs: Last Vital Signs Temp 97.7 F 02/03/25 08:00 Pulse 86 02/03/25 08:00 Resp 18 02/03/25 08:00 BP 151/75 H 02/03/25 08:00 Pulse Ox 100 02/03/25 08:00 O2 Del Method Room Air 02/03/25 08:00 O2 Flow Rate 2 01/26/25 11:20 FiO2 26 01/25/25 05:00 BMI result Body Mass Index 32.2 Const: General: comfortable and no acute distress Resp: Effort & Inspection: normal respiratory effort Cardio: Rate: regular rate GI: Palpation (GI): Soft to palpation, not firm, nontender and no guarding Objective Data Active Medications Aspirin (Aspirin 81 Mg Tab.Chew) 81 mg PO DAILY [facility] Last Admin: 02/03/25 08:35 Dose: 81 mg Documented By: YUSUF Atorvastatin Calcium (Atorvastatin Calcium 40 Mg Tablet) 40 mg PO BEDTIME [facility] Last Admin: 02/02/25 20:07 Dose: 40 mg Documented By: DENISA Dextrose (Dextrose 50 % 25 Gm/50 Ml Syringe) 25 gm IVPUSH Q15M PRN; Protocol PRN Reason: per Hypoglycemia Standing Ord. Last Admin: 01/25/25 03:11 Dose: 25 gm Documented By: PRINCE Comments: per provider Glucose (Glucose Gel 15 Gm Gel..Gram.) 15 gm PO Q15M PRN; Protocol PRN Reason: per Hypoglycemia Standing Ord. Last Admin: 01/28/25 01:25 Dose: 15 gm Documented By: ADRIEL Piperacillin Sod/Tazobactam (Sod 4.5 gm/ Sodium Chloride) 100 mls @ 200 mls/hr IV Q6H [facility] Last Admin: 02/03/25 08:38 Dose: 100 mls/hr Documented By: YUSUF Lactated Ringer's (Lr) 1,000 mls @ 80 mls/hr IVCONT .[id number] [facility] Last Admin: 02/03/25 00:37 Dose: 80 mls/hr Documented By: DENISA Potassium Chloride (Potassium Chloride/H20) 10 meq in 100 mls @ 100 mls/hr IV Q1H [facility] Stop: 02/03/25 12:14 Last Admin: 02/03/25 09:40 Dose: 100 mls/hr Documented By: YUSUF Magnesium Sulfate (Magnesium Sulfate/H2o) 2 gm in 50 mls @ 25 mls/hr IV ONCE ONE Stop: 02/03/25 10:03 Last Admin: 02/03/25 08:37 Dose: 25 mls/hr Documented By: YUSUF Insulin Glargine (Insulin Glargine,Hum.Rec.Anlog 100 Unit/Ml 10 Ml Vial) 5 unit SUBCUT BEDTIME [facility] Last Admin: 02/02/25 20:07 Dose: 5 unit Documented By: DENISA Insulin Human Lispro (Insulin Lispro 100 Unit/Ml 3 Ml Vial) 0 unit SUBCUT QIDACHS [facility]; Protocol Last Admin: 02/03/25 08:36 Dose: Not Given Documented By: YUSUF Non-Admin Reason: blood glucose low Loperamide HCl (Loperamide Hcl 2 Mg Capsule) 2 mg PO Q4H PRN PRN Reason: Diarrhea Melatonin (Melatonin 3 Mg Tablet) 6 mg PO BEDTIME PRN PRN Reason: Insomnia Last Admin: 02/02/25 22:48 Dose: 6 mg Documented By: DENISA Comments: requested for sleep Metoprolol Tartrate (Metoprolol Tartrate 5 Mg/5 Ml Vial) 5 mg IVPUSH Q6H PRN; Protocol PRN Reason: SBP > 160 Last Admin: 01/25/25 15:57 Dose: 5 mg Documented By: CHASE Nystatin (Nystatin Powder 15 Gm Bottle) 1 appl TOPICAL TID [facility]; Protocol Last Admin: 02/03/25 08:50 Dose: 1 appl Documented By: YUSUF Ondansetron HCl (Ondansetron Hcl 4 Mg/2 Ml Vial) 4 mg IVPUSH Q8H PRN PRN Reason: Nausea and Vomiting Last Admin: 02/01/25 17:13 Dose: 4 mg Documented By: SHABNAM Sodium Chloride (0.9 % Sodium Chloride Flush 3 Ml Syringe) 3 ml IVFLUSH QSHIFT [facility] Last Admin: 02/03/25 08:36 Dose: 3 ml Documented By: YUSUF Labs 02/04/25 07:08 02/04/25 07:08 Labs: Laboratory Results - last 24 hr 01/31/25 02/02/25 02/02/25 09:56 11:42 16:16 MCV MCH MCHC RDW Plt Count MPV Absolute Nucleated RBC Nucleated RBC % (auto) Anion Gap Estim Creat Clear Calc Estimated GFR POC Glucose 90 86 Random Glucose Calcium Magnesium Blood Type B Positive Antibody Screen NEGATIVE Crossmatch See Detail 02/02/25 02/03/25 02/03/25 20:32 07:03 07:04 MCV 83.3 MCH 30.2 MCHC 36.3 H RDW 16.7 H Plt Count 378 MPV 8.8 L Absolute Nucleated RBC 0.000 Nucleated RBC % (auto) 0.0 Anion Gap 12 Estim Creat Clear Calc 107.3 Estimated GFR > 60 POC Glucose 120 H Random Glucose 48 L* Calcium 7.4 L Magnesium 1.5 L Blood Type Antibody Screen Crossmatch 02/03/25 02/03/25 07:34 08:30 MCV MCH MCHC RDW Plt Count MPV Absolute Nucleated RBC Nucleated RBC % (auto) Anion Gap Estim Creat Clear Calc Estimated GFR POC Glucose 50 L* 66 Random Glucose Calcium Magnesium Blood Type Antibody Screen Crossmatch Microbiology Microbiology Results: Microbiology 01/31/25 16:34 Blood Culture - Preliminary Blood - Venous No growth after 48 hours. 01/31/25 16:34 Blood Culture - Preliminary Blood - Venous No growth after 48 hours. Procedures Date of Service Date of Service: 02/04/25 Progress Note: A&P Assessment and plan (1) GI bleed: Status: Acute Assessment and Plan: Hemoglobin up appropriately after transfusion No overt signs of GI bleed Follow hemoglobin Abdomen is soft and benign She looks well overall Also had benign pneumatosis on CT Time Spent With Patient Time: Total time managing care of this patient today ____ minutes. Quality Stroke Does the patient have a stroke diagnosis?: No VTE Prior VTE?: No VTE Risk Level:: Medical - moderate - high VTE Device Contraindication: N/A - Device Ordered VTE Drug Contraindication: N/A - Med Ordered
--- NOTE | 2025-02-03 10:03 | HO.PM.IMPN ---
Subjective Subjective Date of Service: 02/03/25 Interval History: comfortable, still with watery diarrhea Physical Exam Vital Signs: Vital Signs: Last Vital Signs Temp 97.7 F 02/03/25 08:00 Pulse 86 02/03/25 08:00 Resp 18 02/03/25 08:00 BP 151/75 H 02/03/25 08:00 Pulse Ox 100 02/03/25 08:00 O2 Del Method Room Air 02/03/25 08:00 O2 Flow Rate 2 01/26/25 11:20 FiO2 26 01/25/25 05:00 BMI result Body Mass Index 32.2 Const: General: comfortable and no acute distress Resp: Effort & Inspection: normal respiratory effort Cardio: Rate: regular rate GI: Palpation (GI): Soft to palpation, not firm, nontender and no guarding Objective Data Active Medications Aspirin (Aspirin 81 Mg Tab.Chew) 81 mg PO DAILY [facility] Last Admin: 02/03/25 08:35 Dose: 81 mg Documented By: YUSUF Atorvastatin Calcium (Atorvastatin Calcium 40 Mg Tablet) 40 mg PO BEDTIME [facility] Last Admin: 02/02/25 20:07 Dose: 40 mg Documented By: DENISA Dextrose (Dextrose 50 % 25 Gm/50 Ml Syringe) 25 gm IVPUSH Q15M PRN; Protocol PRN Reason: per Hypoglycemia Standing Ord. Last Admin: 01/25/25 03:11 Dose: 25 gm Documented By: PRINCE Comments: per provider Glucose (Glucose Gel 15 Gm Gel..Gram.) 15 gm PO Q15M PRN; Protocol PRN Reason: per Hypoglycemia Standing Ord. Last Admin: 01/28/25 01:25 Dose: 15 gm Documented By: ADRIEL Piperacillin Sod/Tazobactam (Sod 4.5 gm/ Sodium Chloride) 100 mls @ 200 mls/hr IV Q6H [facility] Last Admin: 02/03/25 08:38 Dose: 100 mls/hr Documented By: YUSUF Lactated Ringer's (Lr) 1,000 mls @ 80 mls/hr IVCONT .[id number] [facility] Last Admin: 02/03/25 00:37 Dose: 80 mls/hr Documented By: DENISA Potassium Chloride (Potassium Chloride/H20) 10 meq in 100 mls @ 100 mls/hr IV Q1H [facility] Stop: 02/03/25 12:14 Last Admin: 02/03/25 09:40 Dose: 100 mls/hr Documented By: YUSUF Insulin Glargine (Insulin Glargine,Hum.Rec.Anlog 100 Unit/Ml 10 Ml Vial) 5 unit SUBCUT BEDTIME [facility] Last Admin: 02/02/25 20:07 Dose: 5 unit Documented By: DENISA Insulin Human Lispro (Insulin Lispro 100 Unit/Ml 3 Ml Vial) 0 unit SUBCUT QIDACHS [facility]; Protocol Last Admin: 02/03/25 08:36 Dose: Not Given Documented By: YUSUF Non-Admin Reason: blood glucose low Loperamide HCl (Loperamide Hcl 2 Mg Capsule) 2 mg PO Q4H PRN PRN Reason: Diarrhea Melatonin (Melatonin 3 Mg Tablet) 6 mg PO BEDTIME PRN PRN Reason: Insomnia Last Admin: 02/02/25 22:48 Dose: 6 mg Documented By: DENISA Comments: requested for sleep Metoprolol Tartrate (Metoprolol Tartrate 5 Mg/5 Ml Vial) 5 mg IVPUSH Q6H PRN; Protocol PRN Reason: SBP > 160 Last Admin: 01/25/25 15:57 Dose: 5 mg Documented By: CHASE Nystatin (Nystatin Powder 15 Gm Bottle) 1 appl TOPICAL TID [facility]; Protocol Last Admin: 02/03/25 08:50 Dose: 1 appl Documented By: YUSUF Ondansetron HCl (Ondansetron Hcl 4 Mg/2 Ml Vial) 4 mg IVPUSH Q8H PRN PRN Reason: Nausea and Vomiting Last Admin: 02/01/25 17:13 Dose: 4 mg Documented By: SHABNAM Sodium Chloride (0.9 % Sodium Chloride Flush 3 Ml Syringe) [facility] Last Admin: 02/03/25 08:36 Dose: 3 ml Documented By: YUSUF Labs 02/03/25 07:04 02/03/25 07:03 Labs: Laboratory Results - last 24 hr 01/31/25 02/02/25 02/02/25 09:56 11:42 16:16 MCV MCH MCHC RDW Plt Count MPV Absolute Nucleated RBC Nucleated RBC % (auto) Anion Gap Estim Creat Clear Calc Estimated GFR POC Glucose 90 86 Random Glucose Calcium Magnesium Blood Type B Positive Antibody Screen NEGATIVE Crossmatch See Detail 02/02/25 02/03/25 02/03/25 20:32 07:03 07:04 MCV 83.3 MCH 30.2 MCHC 36.3 H RDW 16.7 H Plt Count 378 MPV 8.8 L Absolute Nucleated RBC 0.000 Nucleated RBC % (auto) 0.0 Anion Gap 12 Estim Creat Clear Calc 107.3 Estimated GFR > 60 POC Glucose 120 H Random Glucose 48 L* Calcium 7.4 L Magnesium 1.5 L Blood Type Antibody Screen Crossmatch 02/03/25 02/03/25 07:34 08:30 MCV MCH MCHC RDW Plt Count MPV Absolute Nucleated RBC Nucleated RBC % (auto) Anion Gap Estim Creat Clear Calc Estimated GFR POC Glucose 50 L* 66 Random Glucose Calcium Magnesium Blood Type Antibody Screen Crossmatch Microbiology Microbiology Results: Microbiology 01/31/25 16:34 Blood Culture - Preliminary Blood - Venous No growth after 48 hours. 01/31/25 16:34 Blood Culture - Preliminary Blood - Venous No growth after 48 hours. Assessment and Plan (1) Acute hypokalemia: Status: Acute (2) CVA (cerebral vascular accident): Status: Acute (3) Hemorrhagic shock: Status: Acute (4) Acute blood loss anemia: Status: Acute (5) GI bleed: Status: Acute Plan 59F PMH diabetes mellitus, htn, hld, peripheral neuropathy, gerd, admitted with acute hypoxic respiratory failure with unclear etiology with progressive respiratory distress requiring intubation 01/16/2025. acute blood loss anemia secondary to lower GI bleed. Status post embolization on 01/22/2025. Extubated 01/24/2025. Acute lower GI bleed with acute blood loss anemia improved initially after 2 units PRBCs Tagged red cell scan was positive on 01/21/2025 status post embolization on 01/22/2025 Successful embolization of active bleeding identified from branches of the inferior mesenteric artery supplying the proximal sigmoid colon. Had red blood with stool while on rectal tube 01/26 Hb improved to 8.4 after 1 unit PRBCs (total 3 units) given 4th unit 02/02/25 right sided ischemic colitis surgery and gi following ivf, monitor labs, empiric zosyn Acute Hypernatremia resolved Continue to monitor renal indices and urine output. Acute hypokalemia replacement follow BMP, mg Acute toxic metabolic Encephalopathy likely 2/2 acute stroke , improving MRI brain with small acute right occipital infarct and stigmata of prior CVAs with moderate changes of small vessel ischemia and numerous old lacunar type infarcts in the anterior gangliocapsular regions and left thalamus. Aspirin, statin Hemorrhagic shock resolved, titrated off pressor support in ICU monitor for rebleeding Acute hypoxic respiratory failure requiring ventilatory support likely a result of hemorrhagic shock. suspected PNA on admission, completed abx extubated 01/24/2025 weaned off to RA now Acute renal failure with metabolic acidosis resolved restarted Sodium bicarb, monitor vbg nephro following acute respiratory alkalosis physical deconditioning post ICU stay PT eval rec SNF placement Hypotension Placed on Clonidine patch in ICU, DCd; BP improved since then patient tends to have orthostatic hypotension with supine hypertension Metoprolol IV PRN ordered Insulin-dependent type 2 diabetes Sliding-scale insulin, Lantus 10 units Diabetic diet; [employer] following Prophylaxis: Pneumatic compression reason for continued hospitalization: ongoing diarrhea, hpyokalemoia Quality Stroke Does the patient have a stroke diagnosis?: No VTE Prior VTE?: No VTE Risk Level:: Medical - moderate - high VTE Device Contraindication: N/A - Device Ordered VTE Drug Contraindication: N/A - Med Ordered
--- NOTE | 2025-02-03 10:05 | P.PNGI_ITS ---
Subjective Subjective Date of Service: 02/03/25 Interval History: Seen at bedside. Daughter present as well. Feels better. No abd pain reported today. Seen by surgery and pneumatosis felt to be benign. Critical Care Time (minutes): 0 Physical Exam 2 Vital Signs: Vital Signs: Last Vital Signs Temp 97.7 F 02/03/25 08:00 Pulse 86 02/03/25 08:00 Resp 18 02/03/25 08:00 BP 151/75 H 02/03/25 08:00 Pulse Ox 100 02/03/25 08:00 O2 Del Method Room Air 02/03/25 08:00 O2 Flow Rate 2 01/26/25 11:20 FiO2 26 01/25/25 05:00 BMI result Body Mass Index 32.2 NAD abd soft, nontender, no guarding LUE weakness Objective Data Labs 02/03/25 07:04 02/03/25 07:03 Labs: Laboratory Results - last 24 hr 01/31/25 02/02/25 02/02/25 09:56 11:42 16:16 WBC RBC Hgb Hct MCV MCH MCHC RDW Plt Count MPV Absolute Nucleated RBC Nucleated RBC % (auto) Sodium Potassium Chloride Carbon Dioxide Anion Gap BUN Creatinine Estim Creat Clear Calc Estimated GFR POC Glucose 90 86 Random Glucose Calcium Magnesium Blood Type B Positive Antibody Screen NEGATIVE Crossmatch See Detail 02/02/25 02/03/25 02/03/25 20:32 07:03 07:04 WBC 4.4 L RBC 3.11 L D Hgb 9.4 L D Hct 25.9 L D MCV 83.3 MCH 30.2 MCHC 36.3 H RDW 16.7 H Plt Count 378 MPV 8.8 L Absolute Nucleated RBC 0.000 Nucleated RBC % (auto) 0.0 Sodium 137 Potassium 2.7 L* Chloride 110 H Carbon Dioxide 18 L Anion Gap 12 BUN 9 Creatinine 0.56 Estim Creat Clear Calc 107.3 Estimated GFR > 60 POC Glucose 120 H Random Glucose 48 L* Calcium 7.4 L Magnesium 1.5 L Blood Type Antibody Screen Crossmatch 02/03/25 02/03/25 07:34 08:30 WBC RBC Hgb Hct MCV MCH MCHC RDW Plt Count MPV Absolute Nucleated RBC Nucleated RBC % (auto) Sodium Potassium Chloride Carbon Dioxide Anion Gap BUN Creatinine Estim Creat Clear Calc Estimated GFR POC Glucose 50 L* 66 Random Glucose Calcium Magnesium Blood Type Antibody Screen Crossmatch Microbiology Microbiology Results: Microbiology 01/31/25 16:34 Blood - Venous Blood Culture - Preliminary No growth after 48 hours. 01/31/25 16:34 Blood - Venous Blood Culture - Preliminary No growth after 48 hours. 01/27/25 04:03 Urine Catheterized - Straight Catheter Urine Culture - Final Citrobacter freundii 01/17/25 15:09 Bronch Lll Fungal Identification - Preliminary Pratibha albicans 01/21/25 04:02 Blood - Venous Blood Culture - Final No growth after 5 days. 01/21/25 04:02 Blood - Venous Blood Culture - Final No growth after 5 days. 01/15/25 16:42 Blood - Venous Blood Culture - Final No growth after 5 days. 01/15/25 16:37 Blood - Venous Blood Culture - Final No growth after 5 days. 01/17/25 15:09 Bronch Lll Direct Acid Fast Bacilli Smear - Final 01/17/25 15:09 Bronch Lll Gram Stain - Final 01/17/25 15:09 Bronch Lll - Final No growth after 2 days 01/17/25 15:09 Bronch Lll Routine Culture - Final 01/17/25 15:09 Bronch Rll Gram Stain - Final 01/17/25 15:09 Bronch Rll - Final No growth after 2 days 01/16/25 07:36 Aspirate - Suctioned Gram Stain - Final 01/16/25 07:36 Aspirate - Suctioned Sputum Culture - Final Procedures Date of Service Date of Service: 02/03/25 Progress Note: A&P Assessment and plan (1) Pneumatosis of intestines: Status: Acute (2) GI bleed: Status: Acute (3) Colitis: Status: Acute Plan Abd exam benign today. Pt also reports feeling better. No report of further hematochezia in the last 48h. Pneumatosis felt to be benign as per surgical evaluation. Plan: - OK to advance diet - Serial abd exam - OK to resume antiplatelets from GI standpoint Time Spent With Patient Time: Total time managing care of this patient today ____ minutes. Quality Stroke Does the patient have a stroke diagnosis?: No VTE Prior VTE?: No VTE Risk Level:: Medical - moderate - high VTE Device Contraindication: N/A - Device Ordered VTE Drug Contraindication: N/A - Med Ordered
[2025-02-03 10:08] LABS: Glucose, Whole Blood 88 mg/dL (60-115)
[2025-02-03 12:19] LABS: Glucose, Whole Blood 69 mg/dL (60-115)
[2025-02-03 15:47] LABS: Glucose, Whole Blood 100 mg/dL (60-115)
--- NOTE | 2025-02-03 16:04 | MHC.CLN ---
Addendum entered by Kecia Mancia, JOSELINE 02/03/25 16:36: DIET ADVANCED TO FULL LIQUIDS. ADDING ENSURE TID TO PROMOTE NUTRITIONAL INTAKE. SUPPLEMENT PROVIDES 1050 KCALS, 60 G PROTEIN. Original Note: F/U DIET=CLEAR LIQUIDS. PO 25-50%. TODAY IS DAY 4 CLEAR LIQUIDS. FOLLOW FOR GI MD RECS FOR DIET ADVANCEMENT. SKIN WITH MASD OF COCCYX AND LEFT POSTERIOR THIGH; EXCORIATION TO RIGHT UPPER THIGH. MAY REQUIRE ALTERNATE NUTRITION IF UNABLE TO ADVANCE DIET.
[2025-02-03] MEDS: Loperamide HCl 2 MG CAPSULE PO (18:19)
[2025-02-03 19:51] LABS: Glucose, Whole Blood 127 mg/dL (60-115)
[2025-02-03] MEDS: Atorvastatin Calcium 40 MG TABLET PO (23:18)
[2025-02-04] MEDS: 0.9 % Sodium Chloride Flush 3 ML SYRINGE IVFLUSH (01:26)
[2025-02-04] MEDS: Lactated Ringers 1,000 ML 80 ML IVCONT ×2 (01:26→16:30)
[2025-02-04 03:14] VITALS: BP 136/80; PULSE 97; RESP 16; TEMP 36.4; O2SAT 96
[2025-02-04] MEDS: Piperacillin Sodium/Tazobactam 4.5 GM in 0.9 % Sodium Chloride 100 ML IV ×4 (03:30→22:19)
[2025-02-04 05:52] VITALS: BMI 31.5
[2025-02-04 07:44] LABS: Glucose, Whole Blood 124 mg/dL (60-115)
[2025-02-04 07:52] LABS: Hematocrit 27.8 % (37.0-47.0); Hemoglobin 9.7 g/dl (12.0-16.0); Mean Corpuscular HGB Conc 34.9 g/dl (31.0-35.0); Mean Corpuscular Hemoglobin 29.6 pg (27.0-33.0); Mean Corpuscular Volume 84.8 fL (80.0-98.0); Mean Platelet Volume 9.1 fL (9.4-12.3); Platelet Count 363 X10*3/uL (160-400); Red Blood Count 3.28 X10*6/uL (4.20-5.50); Red Cell Distribution Width 16.3 % (11.0-16.0); White Blood Count 3.6 X10*3/uL (4.8-10.8)
[2025-02-04 08:00] VITALS: BP 164/87; PULSE 86; RESP 20; TEMP 36.7; O2SAT 98
[2025-02-04 08:22] LABS: Anion Gap 10 (12-20); Blood Urea Nitrogen 8 mg/dL (9-16); Calcium 7.4 mg/dL (8.4-10.2); Carbon Dioxide 18 mmol/L (22-29); Chloride 109 mmol/L (96-108); Estimated Glomerular Filt Rate > 60; Glucose Random 115 mg/dL (60-115); Magnesium 1.8 mg/dL (1.6-2.6); Potassium 2.9 mmol/L (3.3-5.1); Sodium 134 mmol/L (135-145)
[2025-02-04] MEDS: Nystatin Powder 15 GM BOTTLE 1 APPL TOPICAL ×3 (09:08→22:21)
[2025-02-04] MEDS: Aspirin 81 MG TAB.CHEW PO (09:14)
[2025-02-04] MEDS: Potassium Chloride/H20 10 MEQ/100 ML PIGGYBACK 100 MEQ IV ×4 (09:30→15:04)
[2025-02-04] MEDS: Potassium Chloride ER 20 MEQ TAB.ER.PRT 40 MEQ PO (09:55)
[2025-02-04] MEDS: Magnesium Sulfate/H2O 2 GM/50 ML PIGGYBACK IV (11:10)
[2025-02-04 11:20] LABS: Glucose, Whole Blood 203 mg/dL (60-115)
--- NOTE | 2025-02-04 11:26 | P.PNIM_ITS ---
Subjective Subjective Date of Service: 02/04/25 Interval History: Ongoing diarrhea, no abdominal pain no distress, requesting solid food Physical Exam 2 Vital Signs: Vital Signs: Last Vital Signs Temp 98.0 F 02/04/25 08:00 Pulse 86 02/04/25 08:00 Resp 20 02/04/25 08:00 BP 164/87 H 02/04/25 08:00 Pulse Ox 98 02/04/25 08:00 O2 Del Method Room Air 02/04/25 08:00 O2 Flow Rate 2 01/26/25 11:20 FiO2 26 01/25/25 05:00 BMI result Body Mass Index 31.5 NAD abd soft, nontender, no guarding LUE weakness Objective Data Active Medications Aspirin (Aspirin 81 Mg Tab.Chew) 81 mg PO DAILY [facility] Last Admin: 02/04/25 09:14 Dose: 81 mg Documented By: ARSH Atorvastatin Calcium (Atorvastatin Calcium 40 Mg Tablet) 40 mg PO BEDTIME [facility] Last Admin: 02/03/25 23:18 Dose: 40 mg Documented By: DENISA Dextrose (Dextrose 50 % 25 Gm/50 Ml Syringe) 25 gm IVPUSH Q15M PRN; Protocol PRN Reason: per Hypoglycemia Standing Ord. Last Admin: 01/25/25 03:11 Dose: 25 gm Documented By: PRINCE Comments: per provider Glucose (Glucose Gel 15 Gm Gel..Gram.) 15 gm PO Q15M PRN; Protocol PRN Reason: per Hypoglycemia Standing Ord. Last Admin: 01/28/25 01:25 Dose: 15 gm Documented By: ADRIEL Piperacillin Sod/Tazobactam (Sod 4.5 gm/ Sodium Chloride) 100 mls @ 200 mls/hr IV Q6H [facility] Last Admin: 02/04/25 10:32 Dose: 100 mls/hr Documented By: ARSH Lactated Ringer's (Lr) 1,000 mls @ 80 mls/hr IVCONT .[id number] [facility] Last Admin: 02/04/25 01:26 Dose: 80 mls/hr Documented By: DENISA Potassium Chloride (Potassium Chloride/H20) 10 meq in 100 mls @ 100 mls/hr IV Q1H [facility] Stop: 02/04/25 13:29 Last Admin: 02/04/25 11:02 Dose: 100 mls/hr Documented By: ARSH Magnesium Sulfate (Magnesium Sulfate/H2o) 2 gm in 50 mls @ 25 mls/hr IV ONCE ONE Stop: 02/04/25 11:32 Last Admin: 02/04/25 11:10 Dose: 25 mls/hr Documented By: ARSH Insulin Glargine (Insulin Glargine,Hum.Rec.Anlog 100 Unit/Ml 10 Ml Vial) 5 unit SUBCUT BEDTIME [facility] Last Admin: 02/03/25 23:57 Dose: Not Given Documented By: DENISA Non-Admin Reason: pt declining and not eatting. Poor appetite Insulin Human Lispro (Insulin Lispro 100 Unit/Ml 3 Ml Vial) 0 unit SUBCUT QIDACHS [facility]; Protocol Last Admin: 02/04/25 08:08 Dose: Not Given Documented By: ARSH Non-Admin Reason: No Insulin Coverage Loperamide HCl (Loperamide Hcl 2 Mg Capsule) 2 mg PO Q4H PRN PRN Reason: Diarrhea Last Admin: 02/03/25 18:19 Dose: 2 mg Documented By: YUSUF Melatonin (Melatonin 3 Mg Tablet) 6 mg PO BEDTIME PRN PRN Reason: Insomnia Last Admin: 02/02/25 22:48 Dose: 6 mg Documented By: DEINSA Comments: requested for sleep Metoprolol Tartrate (Metoprolol Tartrate 5 Mg/5 Ml Vial) 5 mg IVPUSH Q6H PRN; Protocol PRN Reason: SBP > 160 Last Admin: 01/25/25 15:57 Dose: 5 mg Documented By: CHASE Nystatin (Nystatin Powder 15 Gm Bottle) 1 appl TOPICAL TID [facility]; Protocol Last Admin: 02/04/25 09:08 Dose: 1 appl Documented By: ARSH Ondansetron HCl (Ondansetron Hcl 4 Mg/2 Ml Vial) 4 mg IVPUSH Q8H PRN PRN Reason: Nausea and Vomiting Last Admin: 02/01/25 17:13 Dose: 4 mg Documented By: SHABNAM Sodium Chloride (0.9 % Sodium Chloride Flush 3 Ml Syringe) 3 ml IVFLUSH QSHIFT [facility] Last Admin: 02/04/25 09:23 Dose: Not Given Documented By: ARSH Non-Admin Reason: IV Running Labs 02/04/25 07:08 02/04/25 07:08 Labs: Laboratory Results - last 24 hr 02/03/25 02/03/25 02/03/25 12:14 15:40 19:46 MCV MCH MCHC RDW Plt Count MPV Absolute Nucleated RBC Nucleated RBC % (auto) Anion Gap Estim Creat Clear Calc Estimated GFR POC Glucose 69 100 127 H Random Glucose Calcium Magnesium 02/04/25 02/04/25 02/04/25 07:08 07:38 11:17 MCV 84.8 MCH 29.6 MCHC 34.9 RDW 16.3 H Plt Count 363 MPV 9.1 L Absolute Nucleated RBC 0.000 Nucleated RBC % (auto) 0.0 Anion Gap 10 L Estim Creat Clear Calc 110.0 Estimated GFR > 60 POC Glucose 124 H 203 H Random Glucose 115 Calcium 7.4 L Magnesium 1.8 Microbiology Microbiology Results: Microbiology 01/17/25 15:09 Fungal Identification - Preliminary Bronch Lll Pratibha albicans Assessment and Plan (1) Acute hypokalemia: Status: Acute (2) CVA (cerebral vascular accident): Status: Acute (3) Hemorrhagic shock: Status: Acute (4) Acute blood loss anemia: Status: Acute (5) GI bleed: Status: Acute Plan 59F PMH diabetes mellitus, htn, hld, peripheral neuropathy, gerd, admitted with acute hypoxic respiratory failure with unclear etiology with progressive respiratory distress requiring intubation 01/16/2025. acute blood loss anemia secondary to lower GI bleed. Status post embolization on 01/22/2025. Extubated 01/24/2025. Acute lower GI bleed with acute blood loss anemia improved initially after 2 units PRBCs Tagged red cell scan was positive on 01/21/2025 status post embolization on 01/22/2025 Successful embolization of active bleeding identified from branches of the inferior mesenteric artery supplying the proximal sigmoid colon. additional units given on 01/26 and 02/02/25 (4 total) now stable around 9-10 right sided ischemic colitis surgery and gi following ivf, monitor labs, empiric zosyn no pain, still with diarrhea advancing to solids Acute Hypernatremia resolved Continue to monitor renal indices and urine output. Acute hypokalemia, acute hypomagnesemia replacement follow BMP, mg Acute toxic metabolic Encephalopathy likely 2/2 acute stroke , improving MRI brain with small acute right occipital infarct and stigmata of prior CVAs with moderate changes of small vessel ischemia and numerous old lacunar type infarcts in the anterior gangliocapsular regions and left thalamus. Aspirin, statin Hemorrhagic shock resolved, titrated off pressor support in ICU monitor for rebleeding Acute hypoxic respiratory failure requiring ventilatory support likely a result of hemorrhagic shock. 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
[2025-02-04 12:00] VITALS: BP 164/84; PULSE 100; RESP 22; TEMP 36.9; O2SAT 100
[2025-02-04] MEDS: Insulin Lispro 100 UNIT/ML 3 ML VIAL SUBCUT (12:17)
--- NOTE | 2025-02-04 12:52 | MHC.SL.SWA ---
Risk of Aspiration Due to: s/p extubation, CVA Dysphasia Diet Status: DOWNGRADE solids Liquid Consistency and Strategies for Safe Swallow: Liquid Intake Recommendation: Thin Liquid Intake Strategies: Small Sips Solid Food Consistency: Dietary Recommendations: Grnd/Mech Altered (NDD2) Oral Medication Intake: Crushed with Puree Please contact the pharmacy regarding appropriate crushable or liquid drug formulations that are available whenever modified delivery is recommended. Compensatory Strategies and Precautions to be Taken for Safe Swallow: Sitting Upright (90 deg) Small Bites and Sips Rate of Ingestion Change Oral Check Supervision While Eating and Drinking for Safe Swallow: Total Assistance (1:1) Swallowing Recommended Treatments: Compens. Strategy Educat. Recommendation for Speech: Inpatient Speech Therapy Comment: Pt diet was changed to regular solids following upgrade from clear liquids. Recommend DOWNGRADE to GROUND solids (NDD2) d/t severely prolonged mastication and increased breathwork w/ chopped solids. Continue w/ THIN liquids and pills CRUSHED in puree. Liquids by controlled cup sip/controlled straw sip. Patient with severe upper extremity weakness, continues to need full assistance at all meals. SENIOR CIVIL ENGINEER to re-assess tomorrow to upgrade if warranted. Recommend further evaluation of comprehension and word finding. Frequency/Duration: f/u tomorrow Convertible Top Installer Clinican/Clinical Fellow: No Supervisory Statement: I have reviewed and agree with the student/clinical fellow's documentation: N/A Speech Language Pathologist: Monik Mckeon M.A., [facility]-SENIOR CIVIL ENGINEER
[2025-02-04 16:00] VITALS: BP 141/66; PULSE 98; RESP 18; TEMP 37.1; O2SAT 98
[2025-02-04 16:32] LABS: Glucose, Whole Blood 114 mg/dL (60-115)
[2025-02-04 20:00] VITALS: BP 131/67; PULSE 100; RESP 18; TEMP 36.6; O2SAT 97
[2025-02-04 21:37] LABS: Glucose, Whole Blood 146 mg/dL (60-115)
[2025-02-04] MEDS: Insulin Glargine,Hum.rec.anlog 100 UNIT/ML 10 ML VIAL SUBCUT (22:18)
[2025-02-04] MEDS: Atorvastatin Calcium 40 MG TABLET PO (22:19)
[2025-02-04 23:45] VITALS: BP 135/73; PULSE 101; RESP 18; TEMP 36.9; O2SAT 96
[2025-02-05] MEDS: 0.9 % Sodium Chloride Flush 3 ML SYRINGE IVFLUSH ×3 (01:22→17:15)
[2025-02-05 03:36] VITALS: BP 163/78; PULSE 96; RESP 18; TEMP 36.7; O2SAT 97
[2025-02-05] MEDS: Piperacillin Sodium/Tazobactam 4.5 GM in 0.9 % Sodium Chloride 100 ML IV ×4 (04:03→22:32)
[2025-02-05 06:00] VITALS: BMI 33.3
[2025-02-05 07:23] LABS: Hematocrit 25.1 % (37.0-47.0); Hemoglobin 8.8 g/dl (12.0-16.0); Mean Corpuscular HGB Conc 35.1 g/dl (31.0-35.0); Mean Corpuscular Hemoglobin 30.2 pg (27.0-33.0); Mean Corpuscular Volume 86.3 fL (80.0-98.0); Mean Platelet Volume 8.8 fL (9.4-12.3); Platelet Count 307 X10*3/uL (160-400); Red Blood Count 2.91 X10*6/uL (4.20-5.50); Red Cell Distribution Width 16.4 % (11.0-16.0); White Blood Count 4.7 X10*3/uL (4.8-10.8)
[2025-02-05 07:35] LABS: Glucose, Whole Blood 58 mg/dL (60-115)
[2025-02-05 07:46] LABS: Anion Gap 9 (12-20); Blood Urea Nitrogen 8 mg/dL (9-16); Calcium 7.1 mg/dL (8.4-10.2); Carbon Dioxide 19 mmol/L (22-29); Chloride 108 mmol/L (96-108); Creatinine Clr Calc Pharmacy 111.2; Estimated Glomerular Filt Rate > 60; Glucose Random 53 mg/dL (60-115); Magnesium 1.8 mg/dL (1.6-2.6); Potassium 3.5 mmol/L (3.3-5.1); Sodium 132 mmol/L (135-145)
[2025-02-05 08:00] VITALS: BP 151/79; PULSE 95; RESP 17; TEMP 36.7; O2SAT 99
[2025-02-05 08:00] LABS: Glucose, Whole Blood 57 mg/dL (60-115)
[2025-02-05] MEDS: Glucose Gel 15 GM GEL..GRAM. PO (08:03)
[2025-02-05 08:26] LABS: Glucose, Whole Blood 85 mg/dL (60-115)
[2025-02-05] MEDS: Nystatin Powder 15 GM BOTTLE 1 APPL TOPICAL ×3 (09:35→22:32)
[2025-02-05] MEDS: Aspirin 81 MG TAB.CHEW PO (09:35)
--- NOTE | 2025-02-05 11:06 | HO.PM.IMPN ---
Subjective Subjective Date of Service: 02/05/25 Interval History: Ongoing diarrhea, no abdominal pain no distress hypoglycemia this morning Physical Exam Vital Signs: Vital Signs: Last Vital Signs Temp 98.0 F 02/05/25 08:00 Pulse 95 02/05/25 08:00 Resp 17 02/05/25 08:00 BP 151/79 H 02/05/25 08:00 Pulse Ox 99 02/05/25 08:00 O2 Del Method Room Air 02/05/25 08:00 O2 Flow Rate 2 01/26/25 11:20 FiO2 26 01/25/25 05:00 BMI result Body Mass Index 33.3 Const: Other: Constitutional : Awake, interactive, not in distress Neck : Normal inspection, Supple Cardiovascular : RRR, no JVP, no lower extremity edema Respiratory : good bilateral air entry, no crackles, wheezes or rhonchi, on 2L Gastrointestinal: soft, lax, Normal bowel sounds, Non tender, rectal tube in place with brownish stool Skin : Warm, Dry Neurological : Alert & oriented to self and place, No focal deficit Objective Data Active Medications Aspirin (Aspirin 81 Mg Tab.Chew) 81 mg PO DAILY [facility] Last Admin: 02/05/25 09:35 Dose: 81 mg Documented By: BRANDEE Atorvastatin Calcium (Atorvastatin Calcium 40 Mg Tablet) 40 mg PO BEDTIME [facility] Last Admin: 02/04/25 22:19 Dose: 40 mg Documented By: MOE Dextrose (Dextrose 50 % 25 Gm/50 Ml Syringe) 25 gm IVPUSH Q15M PRN; Protocol PRN Reason: per Hypoglycemia Standing Ord. Last Admin: 01/25/25 03:11 Dose: 25 gm Documented By: PRINCE Comments: per provider Diphenoxylate HCl/Atropine (Diphenoxylate/Atrop 2.5/0.025 Tablet) 1 tab PO QID PRN PRN Reason: Diarrhea Glucose (Glucose Gel 15 Gm Gel..Gram.) 15 gm PO Q15M PRN; Protocol PRN Reason: per Hypoglycemia Standing Ord. Last Admin: 02/05/25 08:03 Dose: 15 gm Documented By: BRANDEE Piperacillin Sod/Tazobactam (Sod 4.5 gm/ Sodium Chloride) 100 mls @ 200 mls/hr IV Q6H [facility] Last Infusion: 02/05/25 10:25 Dose: Infused Documented By: BRANDEE Lactated Ringer's (Lr) 1,000 mls @ 80 mls/hr IVCONT .[id number] [facility] Last Admin: 02/05/25 03:35 Dose: Not Given Documented By: NAHOMY Non-Admin Reason: IV Running Insulin Glargine (Insulin Glargine,Hum.Rec.Anlog 100 Unit/Ml 10 Ml Vial) 5 unit SUBCUT BEDTIME [facility] Last Admin: 02/04/25 22:18 Dose: 5 unit Documented By: MOE Insulin Human Lispro (Insulin Lispro 100 Unit/Ml 3 Ml Vial) 0 unit SUBCUT QIDACHS [facility]; Protocol Last Admin: 02/05/25 09:35 Dose: Not Given Documented By: BRANDEE Non-Admin Reason: No Insulin Coverage Loperamide HCl (Loperamide Hcl 2 Mg Capsule) 2 mg PO Q4H PRN PRN Reason: Diarrhea Last Admin: 02/03/25 18:19 Dose: 2 mg Documented By: YUSUF Melatonin (Melatonin 3 Mg Tablet) 6 mg PO BEDTIME PRN PRN Reason: Insomnia Last Admin: 02/02/25 22:48 Dose: 6 mg Documented By: DENISA Comments: requested for sleep Metoprolol Tartrate (Metoprolol Tartrate 5 Mg/5 Ml Vial) 5 mg IVPUSH Q6H PRN; Protocol PRN Reason: SBP > 160 Last Admin: 01/25/25 15:57 Dose: 5 mg Documented By: CHASE Nystatin (Nystatin Powder 15 Gm Bottle) 1 appl TOPICAL TID [facility]; Protocol Last Admin: 02/05/25 09:35 Dose: 1 appl Documented By: BRANDEE Ondansetron HCl (Ondansetron Hcl 4 Mg/2 Ml Vial) 4 mg IVPUSH Q8H PRN PRN Reason: Nausea and Vomiting Last Admin: 02/01/25 17:13 Dose: 4 mg Documented By: SHABNAM Sodium Chloride (0.9 % Sodium Chloride Flush 3 Ml Syringe) 3 ml IVFLUSH QSHIFT [facility] Last Admin: 02/05/25 09:35 Dose: 3 ml Documented By: BRANDEE Labs 02/05/25 06:56 02/05/25 06:56 Labs: Laboratory Results - last 24 hr 02/04/25 02/04/25 02/04/25 11:17 16:28 21:12 MCV MCH MCHC RDW Plt Count MPV Absolute Nucleated RBC Nucleated RBC % (auto) Anion Gap Estim Creat Clear Calc Estimated GFR POC Glucose 203 H 114 146 H Random Glucose Calcium Magnesium 02/05/25 02/05/25 02/05/25 06:56 07:30 07:54 MCV 86.3 MCH 30.2 MCHC 35.1 H RDW 16.4 H Plt Count 307 MPV 8.8 L Absolute Nucleated RBC 0.000 Nucleated RBC % (auto) 0.0 Anion Gap 9 L Estim Creat Clear Calc 111.2 Estimated GFR > 60 POC Glucose 58 L* 57 L* Random Glucose 53 L* Calcium 7.1 L Magnesium 1.8 02/05/25 08:22 MCV MCH MCHC RDW Plt Count MPV Absolute Nucleated RBC Nucleated RBC % (auto) Anion Gap Estim Creat Clear Calc Estimated GFR POC Glucose 85 Random Glucose Calcium Magnesium Assessment and Plan (1) Acute hypokalemia: Status: Acute (2) CVA (cerebral vascular accident): Status: Acute (3) Hemorrhagic shock: Status: Acute (4) Acute blood loss anemia: Status: Acute (5) GI bleed: Status: Acute Plan 59F PMH diabetes mellitus, htn, hld, peripheral neuropathy, gerd, admitted with acute hypoxic respiratory failure with unclear etiology with progressive respiratory distress requiring intubation 01/16/2025. acute blood loss anemia secondary to lower GI bleed. Status post embolization on 01/22/2025. Extubated 01/24/2025. Acute lower GI bleed with acute blood loss anemia improved initially after 2 units PRBCs Tagged red cell scan was positive on 01/21/2025 status post embolization on 01/22/2025 Successful embolization of active bleeding identified from branches of the inferior mesenteric artery supplying the proximal sigmoid colon. additional units given on 01/26 and 02/02/25 (4 total) now stable around 9-10 right sided ischemic colitis surgery and gi following ivf, monitor labs, empiric zosyn no pain, still with diarrhea advanced to regular diet Acute Hypernatremia resolved Continue to monitor renal indices and urine output. Acute hypokalemia, acute hypomagnesemia replacement follow BMP, mg Hypoglycemia, d/t poor po intake follow protocol Acute toxic metabolic Encephalopathy likely 2/2 acute stroke , improving MRI brain with small acute right occipital infarct and stigmata of prior CVAs with moderate changes of small vessel ischemia and numerous old lacunar type infarcts in the anterior gangliocapsular regions and left thalamus. Aspirin, statin Hemorrhagic shock resolved, titrated off pressor support in ICU monitor for rebleeding Acute hypoxic respiratory failure requiring ventilatory support likely a result of hemorrhagic shock. suspected PNA on admission, completed abx extubated 01/24/2025 weaned off to RA Acute renal failure with metabolic acidosis resolved now with resp alkalosis physical deconditioning post ICU stay PT eval rec SNF placement Hypotension Placed on Clonidine patch in ICU, DCd; BP improved since then patient tends to have orthostatic hypotension with supine hypertension Metoprolol IV PRN ordered Insulin-dependent type 2 diabetes Sliding-scale insulin, Lantus 10 units Diabetic diet; HOTEL FRONT OFFICE MANAGER following Prophylaxis: Pneumatic compression reason for continued hospitalization: ongoing diarrhea, hpyokalemoia dc when diarrhea is stable. Quality Stroke Does the patient have a stroke diagnosis?: No VTE Prior VTE?: No VTE Risk Level:: Medical - moderate - high VTE Device Contraindication: N/A - Device Ordered VTE Drug Contraindication: N/A - Med Ordered
[2025-02-05 11:12] LABS: Glucose, Whole Blood 83 mg/dL (60-115)
--- NOTE | 2025-02-05 11:19 | MHC.CLN ---
F/U PO INTAKE 25-50% DIET ADVANCED TO GRD M/S PER VP DIRECTOR OF CREATIVE STRATEGY RECOMMEND RE-STARTING ENSURE TID TO PROVIDE 1050KCALS, 60G PROTEIN PT NOTED WITH FRAGILE SKIN MONITOR PO INTAKE AND ENCOURAGE SUPPLEMENTS
[2025-02-05 11:44] VITALS: BP 152/88; PULSE 91; RESP 17; TEMP 36.6; O2SAT 98
--- NOTE | 2025-02-05 11:54 | MHC.CM.PN ---
Per rounds, pt is not ready to DC, she is having ongoing diarrhea and hypokalemia. DCP is acute or short term rehab. CM to assist with DCP.
[2025-02-05] MEDS: Lactated Ringers 1,000 ML 80 ML IVCONT (14:00)
[2025-02-05 15:52] VITALS: BP 145/67; PULSE 91; RESP 16; TEMP 37.1; O2SAT 98
[2025-02-05 16:11] LABS: Glucose, Whole Blood 104 mg/dL (60-115)
[2025-02-05 19:53] VITALS: BP 148/72; PULSE 94; RESP 20; TEMP 36.8; O2SAT 98
[2025-02-05 21:06] LABS: Glucose, Whole Blood 109 mg/dL (60-115)
[2025-02-05] MEDS: Atorvastatin Calcium 40 MG TABLET PO (22:32)
[2025-02-06] VITALS (8 sets, daily range): BP systolic 139–174; BP diastolic 63–85; PULSE 87–110; RESP 16–20; TEMP 36.3–36.8; O2SAT 96–100; BMI 33.3
[2025-02-06] MEDS: Lactated Ringers 1,000 ML 80 ML IVCONT (03:09)
[2025-02-06] MEDS: Piperacillin Sodium/Tazobactam 4.5 GM in 0.9 % Sodium Chloride 100 ML IV ×4 (05:44→22:13)
[2025-02-06 07:32] LABS: Glucose, Whole Blood 94 mg/dL (60-115)
--- NOTE | 2025-02-06 08:40 | HO.WOUND ---
Wound Consult: Follow up 59yr old?[place] [facility] 19:12- See progress notes and H&P for detailed history.? Wound consult follow up for Left Posterior Upper Thigh Abrasion.? 02/06/25 01/30/25 Left Posterior thigh Etiology: Improving MASD - IAD (Moisture Associated Skin Damage- Incontinence Associated Dermatitis) ?Present on Admission Wound Bed: red pink moist tissue - resurfacing partial thickness tissue loss Drainage / Odor: None Edges: ? attached Luz wound: dark hyperpigmentation noted along with pink erythema to surrounding area and periareal? No Induration, Fluctuance or Warmth noted Goals of Treatment: ? Off Load Pressure - Protect from moisture and friction with triad / barrier cream No new topical recommendations needed at this time. Recommendations: 1. Turn and Reposition every 2 hours and as needed for patient comfort.? Use pillows or wedges to support off loading positions. 2. Off Load all bony prominences with use of pillows and heel boots if needed.? Apply Preventative foams where needed. ? 3. Monitor for incontinence and moisture control, use barrier creams when needed for prevention and treatment. 4. Provide adequate and supplemental nutrition.? 5. Order low air loss mattress. 6. When applicable maintain blood glucose levels per Providers order. Posterior Thigh - Off Load Pressure with Q2 hr turns and use of pillows - Cleanse with PH balance spray or wipes, pat dry. ?Apply thin layer of Triad to wound bed. Do not remove all of paste between applications as this may cause further skin damage.? Cover with foam dressing to aid in off loading and protection from friction. Change every 3 days and PRN. If foam is repeatedly soiled remove and use Triad alone. Use waffle cushion when up to chair. Re-consult wound care Nurse for wound deterioration or wound changes.
[2025-02-06 10:19] LABS: Hematocrit 28.4 % (37.0-47.0); Hemoglobin 9.9 g/dl (12.0-16.0); Mean Corpuscular HGB Conc 34.9 g/dl (31.0-35.0); Mean Corpuscular Hemoglobin 29.6 pg (27.0-33.0); Mean Corpuscular Volume 84.8 fL (80.0-98.0); Mean Platelet Volume 8.3 fL (9.4-12.3); Platelet Count 252 X10*3/uL (160-400); Red Blood Count 3.35 X10*6/uL (4.20-5.50); Red Cell Distribution Width 15.8 % (11.0-16.0); White Blood Count 3.8 X10*3/uL (4.8-10.8)
[2025-02-06] MEDS: Diphenoxylate/Atrop 2.5/0.025 TABLET 1 TAB PO ×4 (10:29→22:06)
[2025-02-06] MEDS: Aspirin 81 MG TAB.CHEW PO (10:29)
[2025-02-06] MEDS: Nystatin Powder 15 GM BOTTLE 1 APPL TOPICAL ×3 (10:30→22:06)
[2025-02-06 10:36] LABS: Anion Gap 10 (12-20); Blood Urea Nitrogen 8 mg/dL (9-16); Calcium 7.3 mg/dL (8.4-10.2); Carbon Dioxide 23 mmol/L (22-29); Chloride 105 mmol/L (96-108); Creatinine Clr Calc Pharmacy 107.3; Estimated Glomerular Filt Rate > 60; Glucose Random 131 mg/dL (60-115); Potassium 3.5 mmol/L (3.3-5.1); Sodium 134 mmol/L (135-145)
[2025-02-06 11:27] LABS: Glucose, Whole Blood 139 mg/dL (60-115)
--- NOTE | 2025-02-06 13:35 | MHC.CM.PN ---
Yash spoke with pt. and her family to inform them that pt. was accepted at [facility]. and they are in agreement to pt. going there. YASH sent [facility] update that she will be ready later today or tomorrow.
--- NOTE | 2025-02-06 13:55 | HO.PM.IMPN ---
Subjective Subjective Date of Service: 02/06/25 Interval History: seen and examined this morning follow-up for diarrhea, respiratory failure, stroke, GI bleed History obtained from the patient and her daughter at the bedside with the assistance of a hat braider Patient has persistent diarrhea, no abdominal pain. Tolerating diet Review of Systems Review of Systems: Yes all other systems are reviewed and are negative Constitutional Constitutional: Denies chills and Denies fever(s) Cardiovascular Cardiovascular: Denies chest pain, Denies palpitations and Denies dyspnea Respiratory Respiratory: Denies dyspnea Gastrointestinal Gastrointestinal: Denies abdominal pain Endocrine Endocrine: Denies palpitations Physical Exam Vital Signs: Vital Signs: Last Vital Signs Temp 98.2 F 02/06/25 11:06 Pulse 95 02/06/25 11:06 Resp 18 02/06/25 11:06 BP 174/83 H 02/06/25 11:06 Pulse Ox 99 02/06/25 11:06 O2 Del Method Room Air 02/06/25 11:06 O2 Flow Rate 2 01/26/25 11:20 FiO2 26 01/25/25 05:00 BMI result Body Mass Index 33.3 Const: General: alert and awake Nutritional Appearance: average body habitus Resp: Effort & Inspection: no respiratory distress and no use of accessory muscles GI: Inspection: No distended Palpation (GI): Soft to palpation Objective Data Active Medications Aspirin (Aspirin 81 Mg Tab.Chew) 81 mg PO DAILY REPLACED BY [facility] Last Admin: 02/06/25 10:29 Dose: 81 mg Documented By: BRANDEE Atorvastatin Calcium (Atorvastatin Calcium 40 Mg Tablet) 40 mg PO BEDTIME REPLACED BY [facility] Last Admin: 02/05/25 22:32 Dose: 40 mg Documented By: ANTOINPritesh Dextrose (Dextrose 50 % 25 Gm/50 Ml Syringe) 25 gm IVPUSH Q15M PRN; Protocol PRN Reason: per Hypoglycemia Standing Ord. Last Admin: 01/25/25 03:11 Dose: 25 gm Documented By: PRINCE Comments: per provider Diphenoxylate HCl/Atropine (Diphenoxylate/Atrop 2.5/0.025 Tablet) 1 tab PO QID REPLACED BY [facility] Last Admin: 02/06/25 10:29 Dose: 1 tab Documented By: BRANDEE Glucose (Glucose Gel 15 Gm Gel..Gram.) 15 gm PO Q15M PRN; Protocol PRN Reason: per Hypoglycemia Standing Ord. Last Admin: 02/05/25 08:03 Dose: 15 gm Documented By: BRANDEE Piperacillin Sod/Tazobactam (Sod 4.5 gm/ Sodium Chloride) 100 mls @ 200 mls/hr IV Q6H REPLACED BY [facility] Stop: 02/06/25 23:59 Last Infusion: 02/06/25 11:18 Dose: Infused Documented By: BRANDEE Insulin Human Lispro (Insulin Lispro 100 Unit/Ml 3 Ml Vial) 0 unit SUBCUT QIDACHS REPLACED BY [facility]; Protocol Last Admin: 02/06/25 12:33 Dose: Not Given Documented By: BRANDEE Non-Admin Reason: No Insulin Coverage Melatonin (Melatonin 3 Mg Tablet) 6 mg PO BEDTIME PRN PRN Reason: Insomnia Last Admin: 02/02/25 22:48 Dose: 6 mg Documented By: DENISA Comments: requested for sleep Nystatin (Nystatin Powder 15 Gm Bottle) 1 appl TOPICAL TID REPLACED BY [facility]; Protocol Last Admin: 02/06/25 10:30 Dose: 1 appl Documented By: BRANDEE Ondansetron HCl (Ondansetron Hcl 4 Mg/2 Ml Vial) 4 mg IVPUSH Q8H PRN PRN Reason: Nausea and Vomiting Last Admin: 02/01/25 17:13 Dose: 4 mg Documented By: SHABNAM Sodium Chloride (0.9 % Sodium Chloride Flush 3 Ml Syringe) [facility] Last Admin: 02/06/25 10:30 Dose: Not Given Documented By: BRANDEE Non-Admin Reason: IV Running Labs 02/06/25 10:10 02/06/25 10:09 Labs: Laboratory Results - last 24 hr 02/05/25 02/05/25 02/06/25 16:07 20:53 07:26 MCV MCH MCHC RDW Plt Count MPV Absolute Nucleated RBC Nucleated RBC % (auto) Anion Gap Estim Creat Clear Calc Estimated GFR POC Glucose 104 109 94 Random Glucose Calcium 02/06/25 02/06/25 02/06/25 10:09 10:10 11:18 MCV 84.8 MCH 29.6 MCHC 34.9 RDW 15.8 Plt Count 252 MPV 8.3 L Absolute Nucleated RBC 0.000 Nucleated RBC % (auto) 0.0 Anion Gap 10 L Estim Creat Clear Calc 107.3 Estimated GFR > 60 POC Glucose 139 H Random Glucose 131 H Calcium 7.3 L Microbiology Microbiology Results: Microbiology 01/31/25 16:34 Blood Culture - Final Blood - Venous No growth after 5 days. 01/31/25 16:34 Blood Culture - Final Blood - Venous No growth after 5 days. Assessment and Plan (1) CVA (cerebral vascular accident): Status: Acute (2) Hemorrhagic shock: Status: Acute (3) Acute blood loss anemia: Status: Acute Plan 59F PMH diabetes mellitus, htn, hld, peripheral neuropathy, gerd, admitted with acute hypoxic respiratory failure with unclear etiology with progressive respiratory distress requiring intubation 01/16/2025. subsequently developed acute blood loss anemia secondary to lower GI bleed. Status post embolization on 01/22/2025. Extubated 01/24/2025. Acute lower GI bleed with acute blood loss anemia Tagged red cell scan was positive on 01/21/2025 status post embolization on 01/22/2025 Successful embolization of active bleeding identified from branches of the inferior mesenteric artery supplying the proximal sigmoid colon. additional units given on 01/26 and 02/02/25 (4 total) now stable around 9-10 right sided ischemic colitis surgery and gi following empiric zosyn no pain, still with diarrhea - start scheduled bowel meds tolerating regular diet Chronic diarrhea GI panel, C diff negative will complete course of Zosyn today scheduled Lomotil Acute Hypernatremia resolved Continue to monitor renal indices and urine output. Acute hypokalemia, acute hypomagnesemia replacement follow BMP, mg Insulin-dependent type 2 diabetes with hypoglycemia lantus stopped continue Sliding-scale insulin Diabetic diet Hypoglycemia, d/t poor po intake Acute toxic metabolic Encephalopathy likely 2/2 acute stroke improving MRI brain with small acute right occipital infarct and stigmata of prior CVAs with moderate changes of small vessel ischemia and numerous old lacunar type infarcts in the anterior gangliocapsular regions and left thalamus. Aspirin, statin speech following, tolerating modified diet PT/OT rec acute rehab Hemorrhagic shock resolved, titrated off pressor support in ICU monitor for rebleeding H/H stable Acute hypoxic respiratory failure requiring ventilatory support likely a result of hemorrhagic shock. suspected PNA on admission, completed abx extubated 01/24/2025 weaned off to RA Acute renal failure with metabolic acidosis resolved now with resp alkalosis Hypotension Placed on Clonidine patch in ICU, DCd; BP improved since then patient tends to have orthostatic hypotension with supine hypertension mood disorder haldol and cogentin have been on hold will d/w psych urinary retention voiding trial Prophylaxis: Pneumatic compression reason for continued hospitalization: ongoing diarrhea, hpyokalemoia dc when diarrhea is stable. Quality Stroke Does the patient have a stroke diagnosis?: No VTE Prior VTE?: No VTE Risk Level:: Medical - moderate - high VTE Device Contraindication: N/A - Device Ordered VTE Drug Contraindication: N/A - Med Ordered
[2025-02-06] MEDS: 0.9 % Sodium Chloride Flush 3 ML SYRINGE IVFLUSH (14:27)
[2025-02-06 16:16] LABS: Glucose, Whole Blood 157 mg/dL (60-115)
[2025-02-06] MEDS: Insulin Lispro 100 UNIT/ML 3 ML VIAL SUBCUT (16:56)
[2025-02-06 20:55] LABS: Glucose, Whole Blood 126 mg/dL (60-115)
[2025-02-06] MEDS: Atorvastatin Calcium 40 MG TABLET PO (22:05)
[2025-02-06 22:41] LABS: Hematocrit 24.8 % (37.0-47.0); Hemoglobin 8.9 g/dl (12.0-16.0); Mean Corpuscular HGB Conc 35.9 g/dl (31.0-35.0); Mean Corpuscular Hemoglobin 30.3 pg (27.0-33.0); Mean Corpuscular Volume 84.4 fL (80.0-98.0); Mean Platelet Volume 8.6 fL (9.4-12.3); Platelet Count 235 X10*3/uL (160-400); Red Blood Count 2.94 X10*6/uL (4.20-5.50); Red Cell Distribution Width 15.9 % (11.0-16.0); White Blood Count 3.4 X10*3/uL (4.8-10.8)
[2025-02-07] VITALS (7 sets, daily range): BP systolic 131–155; BP diastolic 61–94; PULSE 89–109; RESP 17–20; TEMP 36.3–37.2; O2SAT 97–100; BMI 33.4
--- NOTE | 2025-02-07 06:30 | PC.NURSE ---
2021: bladder scan 522 - MD ivan aware - straight cath'd for 650 0400: bladder scan 461 - MD ivan aware - straight cath'd for 700
[2025-02-07 07:14] LABS: Glucose, Whole Blood 137 mg/dL (60-115)
[2025-02-07] MEDS: Nystatin Powder 15 GM BOTTLE 1 APPL TOPICAL ×3 (08:02→20:42)
[2025-02-07] MEDS: Hydrocortisone Sod Succ/PF 100 MG VIAL IVPUSH ×2 (08:02→12:30)
[2025-02-07] MEDS: diphenhydrAMINE HCL 50 MG/ML VIAL IVPUSH (08:02)
[2025-02-07] MEDS: 0.9 % Sodium Chloride Flush 3 ML SYRINGE IVFLUSH ×3 (08:02→20:43)
[2025-02-07] MEDS: Pantoprazole Sodium 40 MG/10 ML VIAL IVPUSH ×2 (08:05→16:00)
[2025-02-07 09:03] LABS: Hematocrit 25.7 % (37.0-47.0); Hemoglobin 9.1 g/dl (12.0-16.0)
[2025-02-07 09:18] LABS: INTERNATIONAL NORM RATIO 1.2 (0.9-1.1); Prothrombin Time 13.9 SEC (10.9-12.4)
[2025-02-07 09:32] LABS: Anion Gap 11 (12-20); Blood Urea Nitrogen 10 mg/dL (9-16); Calcium 7.6 mg/dL (8.4-10.2); Carbon Dioxide 19 mmol/L (22-29); Chloride 107 mmol/L (96-108); Creatinine Clr Calc Pharmacy 105.5; Estimated Glomerular Filt Rate > 60; Glucose Random 119 mg/dL (60-115); Potassium 3.3 mmol/L (3.3-5.1); Sodium 134 mmol/L (135-145)
--- NOTE | 2025-02-07 10:30 | MHC.CM.PN ---
Per rounds, pt. had increased bleeding last night, so she is not medically cleared to go to [facility] (they are waiting for auth).
[2025-02-07] MEDS: iohexoL 350 MG/ML 100 ML INFUS..BTL IV (11:01)
--- NOTE | 2025-02-07 11:07 | MHC.SLORD ---
Speech Language Pathology Order Status: Per PA, patient NPO for procedure at this time. Once cleared to resume PO, continue w/ WATER MAIN INSTALLER HELPER recommendation for ground/mech altered (NDD2) solids and thin liquids, pills crushed in puree.
[2025-02-07 11:23] LABS: Glucose, Whole Blood 126 mg/dL (60-115)
--- NOTE | 2025-02-07 12:33 | P.PNGS_ITS ---
Subjective Subjective Date of Service: 02/08/25 Interval history: Reported to have multiple episodes of blood per rectum night Last episode was at 07:00 Patient denies abdominal pain Has no new complaints Physical Exam 2 Vital Signs: Vital Signs: Last Vital Signs Temp 98.7 F 02/07/25 11:32 Pulse 103 H 02/07/25 11:32 Resp 18 02/07/25 11:32 BP 143/94 H 02/07/25 11:32 Pulse Ox 99 02/07/25 11:32 O2 Del Method Room Air 02/07/25 11:32 O2 Flow Rate 2 01/26/25 11:20 FiO2 26 01/25/25 05:00 BMI result Body Mass Index 33.4 Const: Other: Looks well General: comfortable and no acute distress Resp: Effort & Inspection: normal respiratory effort Cardio: Rhythm: regular rhythm GI: Palpation (GI): Soft to palpation, not firm, nontender and no guarding Objective Data Active Medications Aspirin (Aspirin 81 Mg Tab.Chew) 81 mg PO DAILY [facility] Last Admin: 02/06/25 10:29 Dose: 81 mg Documented By: BRANDEE Atorvastatin Calcium (Atorvastatin Calcium 40 Mg Tablet) 40 mg PO BEDTIME [facility] Last Admin: 02/06/25 22:05 Dose: 40 mg Documented By: ANTOINC Dextrose (Dextrose 50 % 25 Gm/50 Ml Syringe) 25 gm IVPUSH Q15M PRN; Protocol PRN Reason: per Hypoglycemia Standing Ord. Last Admin: 01/25/25 03:11 Dose: 25 gm Documented By: PRINCE Comments: per provider Diphenoxylate HCl/Atropine (Diphenoxylate/Atrop 2.5/0.025 Tablet) 1 tab PO QID [facility] Last Admin: 02/06/25 22:06 Dose: 1 tab Documented By: ALEXISOINC Glucose (Glucose Gel 15 Gm Gel..Gram.) 15 gm PO Q15M PRN; Protocol PRN Reason: per Hypoglycemia Standing Ord. Last Admin: 02/05/25 08:03 Dose: 15 gm Documented By: BRANDEE Hydrocortisone Sodium Succinate (Hydrocortisone Sod Succ/Pf 100 Mg Vial) 100 mg IVPUSH Q4H [facility] Last Admin: 02/07/25 12:30 Dose: 100 mg Documented By: MELVINA Insulin Human Lispro (Insulin Lispro 100 Unit/Ml 3 Ml Vial) 0 unit SUBCUT QIDACHS [facility]; Protocol Last Admin: 02/07/25 11:23 Dose: Not Given Documented By: MELVINA Non-Admin Reason: No Insulin Coverage Melatonin (Melatonin 3 Mg Tablet) 6 mg PO BEDTIME PRN PRN Reason: Insomnia Last Admin: 02/02/25 22:48 Dose: 6 mg Documented By: DENISA Comments: requested for sleep Nystatin (Nystatin Powder 15 Gm Bottle) 1 appl TOPICAL TID [facility]; Protocol Last Admin: 02/07/25 12:31 Dose: 1 appl Documented By: MELVINA Ondansetron HCl (Ondansetron Hcl 4 Mg/2 Ml Vial) 4 mg IVPUSH Q8H PRN PRN Reason: Nausea and Vomiting Last Admin: 02/01/25 17:13 Dose: 4 mg Documented By: SHABNAM Pantoprazole Sodium (Pantoprazole Sodium 40 Mg/10 Ml Vial) 40 mg IVPUSH BID@0630,1630 [facility] Last Admin: 02/07/25 08:05 Dose: 40 mg Documented By: MELVINA Sodium Chloride (0.9 % Sodium Chloride Flush 3 Ml Syringe) 3 ml IVFLUSH QSHIFT [facility] Last Admin: 02/07/25 12:31 Dose: 3 ml Documented By: MELVINA Labs 02/08/25 15:02 02/08/25 06:48 Labs: Laboratory Results - last 24 hr 02/06/25 02/06/25 02/06/25 16:12 20:51 22:31 MCV 84.4 MCH 30.3 MCHC 35.9 H RDW 15.9 Plt Count 235 MPV 8.6 L Absolute Nucleated RBC 0.000 Nucleated RBC % (auto) 0.0 PT INR Anion Gap Estim Creat Clear Calc Estimated GFR POC Glucose 157 H 126 H Random Glucose Calcium Blood Type Antibody Screen 02/07/25 02/07/25 02/07/25 07:02 08:39 11:15 MCV MCH MCHC RDW Plt Count MPV Absolute Nucleated RBC Nucleated RBC % (auto) PT 13.9 H INR 1.2 H Anion Gap 11 L Estim Creat Clear Calc 105.5 Estimated GFR > 60 POC Glucose 137 H 126 H Random Glucose 119 H Calcium 7.6 L Blood Type B Positive Antibody Screen NEGATIVE Procedures Date of Service Date of Service: 02/08/25 Progress Note: A&P Assessment and plan (1) Blood per rectum: Status: Acute Assessment and Plan: Reported to have has a blood per rectum overnight As per nursing staff, last episode was at 7 this morning She looks well Hemoglobin stable CT angiogram ordered Abdomen is soft and benign Consider IR reconsult if with active bleeding Hemodynamically stable Avoid any heparin products now, anticoagulants Check coags Time Spent With Patient Time: Total time managing care of this patient today ____ minutes. Quality Stroke Does the patient have a stroke diagnosis?: No VTE Prior VTE?: No VTE Risk Level:: Medical - moderate - high VTE Device Contraindication: N/A - Device Ordered VTE Drug Contraindication: N/A - Med Ordered
--- NOTE | 2025-02-07 12:35 | HO.PM.IMPN ---
Subjective Subjective Date of Service: 02/07/25 Interval History: Seen and examined this morning History obtained with the assistance of a flat bed knitter Patient awake, alert, had multiple episodes of bloody stools overnight. No abdominal pain Review of Systems Review of Systems: Yes all other systems are reviewed and are negative Constitutional Constitutional: Denies chills and Denies fever(s) Cardiovascular Cardiovascular: Denies chest pain and Denies dyspnea Respiratory Respiratory: Denies cough and Denies dyspnea Physical Exam Vital Signs: Vital Signs: Last Vital Signs Temp 98.7 F 02/07/25 11:32 Pulse 103 H 02/07/25 11:32 Resp 18 02/07/25 11:32 BP 143/94 H 02/07/25 11:32 Pulse Ox 99 02/07/25 11:32 O2 Del Method Room Air 02/07/25 11:32 O2 Flow Rate 2 01/26/25 11:20 FiO2 26 01/25/25 05:00 BMI result Body Mass Index 33.4 Const: General: alert and awake Nutritional Appearance: average body habitus Resp: Other: diminished breath sounds; decreased respiratory effort Cardio: Rate: tachycardic GI: Inspection: No distended Neuro: Other: b/l UE weakness R>L; face symmetrical Objective Data Active Medications Aspirin (Aspirin 81 Mg Tab.Chew) 81 mg PO DAILY [facility] Last Admin: 02/06/25 10:29 Dose: 81 mg Documented By: BRANDEE Atorvastatin Calcium (Atorvastatin Calcium 40 Mg Tablet) 40 mg PO BEDTIME [facility] Last Admin: 02/06/25 22:05 Dose: 40 mg Documented By: ELIZABETH Dextrose (Dextrose 50 % 25 Gm/50 Ml Syringe) 25 gm IVPUSH Q15M PRN; Protocol PRN Reason: per Hypoglycemia Standing Ord. Last Admin: 01/25/25 03:11 Dose: 25 gm Documented By: PRINCE Comments: per provider Diphenoxylate HCl/Atropine (Diphenoxylate/Atrop 2.5/0.025 Tablet) 1 tab PO QID [facility] Last Admin: 02/06/25 22:06 Dose: 1 tab Documented By: ALEXISOINC Glucose (Glucose Gel 15 Gm Gel..Gram.) 15 gm PO Q15M PRN; Protocol PRN Reason: per Hypoglycemia Standing Ord. Last Admin: 02/05/25 08:03 Dose: 15 gm Documented By: BRANDEE Hydrocortisone Sodium Succinate (Hydrocortisone Sod Succ/Pf 100 Mg Vial) 100 mg IVPUSH Q4H [facility] Last Admin: 02/07/25 12:30 Dose: 100 mg Documented By: MELVINA Insulin Human Lispro (Insulin Lispro 100 Unit/Ml 3 Ml Vial) 0 unit SUBCUT QIDACHS [facility]; Protocol Last Admin: 02/07/25 11:23 Dose: Not Given Documented By: MELVINA Non-Admin Reason: No Insulin Coverage Melatonin (Melatonin 3 Mg Tablet) 6 mg PO BEDTIME PRN PRN Reason: Insomnia Last Admin: 02/02/25 22:48 Dose: 6 mg Documented By: DENISA Comments: requested for sleep Nystatin (Nystatin Powder 15 Gm Bottle) 1 appl TOPICAL TID [facility]; Protocol Last Admin: 02/07/25 12:31 Dose: 1 appl Documented By: MELVINA Ondansetron HCl (Ondansetron Hcl 4 Mg/2 Ml Vial) 4 mg IVPUSH Q8H PRN PRN Reason: Nausea and Vomiting Last Admin: 02/01/25 17:13 Dose: 4 mg Documented By: SHABNAM Pantoprazole Sodium (Pantoprazole Sodium 40 Mg/10 Ml Vial) 40 mg IVPUSH BID@0630,1630 [facility] Last Admin: 02/07/25 08:05 Dose: 40 mg Documented By: MELVINA Sodium Chloride (0.9 % Sodium Chloride Flush 3 Ml Syringe) 3 ml IVFLUSH QSHIFT [facility] Last Admin: 02/07/25 12:31 Dose: 3 ml Documented By: MELVINA Labs 02/07/25 08:39 02/07/25 08:39 Labs: Laboratory Results - last 24 hr 02/06/25 02/06/25 02/06/25 16:12 20:51 22:31 MCV 84.4 MCH 30.3 MCHC 35.9 H RDW 15.9 Plt Count 235 MPV 8.6 L Absolute Nucleated RBC 0.000 Nucleated RBC % (auto) 0.0 PT INR Anion Gap Estim Creat Clear Calc Estimated GFR POC Glucose 157 H 126 H Random Glucose Calcium Blood Type Antibody Screen 02/07/25 02/07/25 02/07/25 07:02 08:39 11:15 MCV MCH MCHC RDW Plt Count MPV Absolute Nucleated RBC Nucleated RBC % (auto) PT 13.9 H INR 1.2 H Anion Gap 11 L Estim Creat Clear Calc 105.5 Estimated GFR > 60 POC Glucose 137 H 126 H Random Glucose 119 H Calcium 7.6 L Blood Type B Positive Antibody Screen NEGATIVE Assessment and Plan (1) CVA (cerebral vascular accident): Status: Acute (2) Acute blood loss anemia: Status: Acute (3) GI bleed: Status: Acute Plan This is a 59F PMH diabetes mellitus, htn, hld, peripheral neuropathy, gerd, admitted with acute hypoxic respiratory failure with unclear etiology with progressive respiratory distress requiring intubation 01/16/2025. subsequently developed acute blood loss anemia secondary to lower GI bleed. Status post embolization on 01/22/2025. Extubated 01/24/2025. Downgraded to the medical floor 01/26. Also with noted encephalopathy and MRI from 01/20 c/w stroke now with recurrent rectal bleeding. Acute lower GI bleed with acute blood loss anemia Tagged red cell scan was positive on 01/21/2025 status post embolization on 01/22/2025 Successful embolization of active bleeding identified from branches of the inferior mesenteric artery supplying the proximal sigmoid colon. additional units given on 01/26 and 02/02/25 (4 total) H/H has been stable recurrent rectal bleeding 02/07; repeat ct bleeding scan negative for active source of bleeding type and cross, follow q6h H/H transfuse prn GI/surgery aware right sided ischemic colitis surgery and gi following empiric zosyn no pain, still with diarrhea - start scheduled bowel meds tolerating regular diet Chronic diarrhea GI panel, C diff negative s/p course of Zosyn today repeat imaging showing large amount of stool ?overflow diarrhea also with persistent colitis - will d/w GI b/l pleural effusions seen on imaging no hypoxia given acute GI bleeding hesitant to diurese especially as pt asymptomatic. follow clinical course Acute Hypernatremia resolved Acute hypokalemia, acute hypomagnesemia replacement follow BMP, mg Insulin-dependent type 2 diabetes with hypoglycemia lantus stopped continue Sliding-scale insulin Diabetic diet Hypoglycemia, d/t poor po intake Acute toxic metabolic Encephalopathy likely 2/2 acute stroke improving MRI brain with small acute right occipital infarct and stigmata of prior CVAs with moderate changes of small vessel ischemia and numerous old lacunar type infarcts in the anterior gangliocapsular regions and left thalamus. Aspirin, statin - aspirion now on hold for GI bleeding speech following, tolerating modified diet PT/OT rec acute rehab will consult neurology Hemorrhagic shock resolved, titrated off pressor support in ICU monitor for rebleeding H/H stable Acute hypoxic respiratory failure requiring ventilatory support likely a result of hemorrhagic shock. suspected PNA on admission, completed abx extubated 01/24/2025 weaned off to RA Acute renal failure with metabolic acidosis resolved now with resp alkalosis Hypotension Placed on Clonidine patch in ICU, DCd; BP improved since then patient tends to have orthostatic hypotension with supine hypertension mood disorder haldol and cogentin have been on hold d/w psych - ok to resume when able to take po urinary retention failed voiding trial, replace cornejo Prophylaxis: Pneumatic compression reason for continued hospitalization: ongoing diarrhea, recurrent GI bleeding Quality Stroke Does the patient have a stroke diagnosis?: No VTE Prior VTE?: No VTE Risk Level:: Medical - moderate - high VTE Device Contraindication: N/A - Device Ordered VTE Drug Contraindication: N/A - Med Ordered
--- NOTE | 2025-02-07 12:49 | P.PNGI_ITS ---
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 Reports L sided pain. No N/V. Has had multiple maroon gelatinous BMs. CT with L sided colitis. H/H from this AM stable. Critical Care Time (minutes): 0 Physical Exam 2 Vital Signs: Vital Signs: Last Vital Signs Temp 98.7 F 02/07/25 11:32 Pulse 103 H 02/07/25 11:32 Resp 18 02/07/25 11:32 BP 143/94 H 02/07/25 11:32 Pulse Ox 99 02/07/25 11:32 O2 Del Method Room Air 02/07/25 11:32 O2 Flow Rate 2 01/26/25 11:20 FiO2 26 01/25/25 05:00 BMI result Body Mass Index 33.4 NAD abd soft, tenderness in LUQ and LLQ, no guarding LUE weakness Objective Data Labs 02/07/25 15:20 02/07/25 08:39 Labs: Laboratory Results - last 24 hr 02/06/25 02/06/25 02/06/25 16:12 20:51 22:31 WBC 3.4 L RBC 2.94 L Hgb 8.9 L Hct 24.8 L MCV 84.4 MCH 30.3 MCHC 35.9 H RDW 15.9 Plt Count 235 MPV 8.6 L Absolute Nucleated RBC 0.000 Nucleated RBC % (auto) 0.0 PT INR Sodium Potassium Chloride Carbon Dioxide Anion Gap BUN Creatinine Estim Creat Clear Calc Estimated GFR POC Glucose 157 H 126 H Random Glucose Calcium Blood Type Antibody Screen 02/07/25 02/07/25 02/07/25 07:02 08:39 11:15 WBC RBC Hgb 9.1 L Hct 25.7 L MCV MCH MCHC RDW Plt Count MPV Absolute Nucleated RBC Nucleated RBC % (auto) PT 13.9 H INR 1.2 H Sodium 134 L Potassium 3.3 Chloride 107 Carbon Dioxide 19 L Anion Gap 11 L BUN 10 Creatinine 0.58 Estim Creat Clear Calc 105.5 Estimated GFR > 60 POC Glucose 137 H 126 H Random Glucose 119 H Calcium 7.6 L Blood Type B Positive Antibody Screen NEGATIVE Microbiology Microbiology Results: Microbiology 01/31/25 16:34 Blood - Venous Blood Culture - Final No growth after 5 days. 01/31/25 16:34 Blood - Venous Blood Culture - Final No growth after 5 days. 01/17/25 15:09 Bronch Lll Fungal Identification - Preliminary Pratibha albicans 01/27/25 04:03 Urine Catheterized - Straight Catheter Urine Culture - Final Citrobacter freundii 01/21/25 04:02 Blood - Venous Blood Culture - Final No growth after 5 days. 01/21/25 04:02 Blood - Venous Blood Culture - Final No growth after 5 days. 01/15/25 16:42 Blood - Venous Blood Culture - Final No growth after 5 days. 01/15/25 16:37 Blood - Venous Blood Culture - Final No growth after 5 days. 01/17/25 15:09 Bronch Lll Direct Acid Fast Bacilli Smear - Final 01/17/25 15:09 Bronch Lll Gram Stain - Final 01/17/25 15:09 Bronch Lll - Final No growth after 2 days 01/17/25 15:09 Bronch Lll Routine Culture - Final 01/17/25 15:09 Bronch Rll Gram Stain - Final 01/17/25 15:09 Bronch Rll - Final No growth after 2 days 01/16/25 07:36 Aspirate - Suctioned Gram Stain - Final 01/16/25 07:36 Aspirate - Suctioned Sputum Culture - Final Procedures Date of Service Date of Service: 02/07/25 Progress Note: A&P Assessment and plan (1) GI bleed: Status: Acute (2) Colitis: Status: Acute Plan Ddx include infectious vs ischemic colitis. VSS. Abd tender but not acute. Plan: - Keep NPO for now - check CDiff, lactate, LDH - if recheck H/H stable, can reinstate CLD - if drops may need diagnostic flex sig - OR closed Sat for power maintenance so timing of procedure here vs transfer out will depend on clinical course signed out to on-call GI provider Time Spent With Patient Time: Total time managing care of this patient today ____ minutes. Quality Stroke Does the patient have a stroke diagnosis?: No VTE Prior VTE?: No VTE Risk Level:: Medical - moderate - high VTE Device Contraindication: N/A - Device Ordered VTE Drug Contraindication: N/A - Med Ordered
--- NOTE | 2025-02-07 15:07 | MHC.CLN ---
F/U DIET IS CURRENTLY NPO FOR PROCEDURE PO INTAKE SLIGHTLY IMPROVED PRIOR TO NPO STATUS 50-75% WHEN DIET TO RESUME; RECOMMEND RE-STARTING ENSURE TID TO PROVIDE 1050KCALS, 60G PROTEIN PT NOTED WITH FRAGILE SKIN MONITOR PO INTAKE AND ENCOURAGE SUPPLEMENTS
[2025-02-07 15:27] LABS: Hematocrit 24.5 % (37.0-47.0); Hemoglobin 8.6 g/dl (12.0-16.0)
[2025-02-07 16:16] LABS: Lactate Dehydrogenase 211 U/L (122-220)
[2025-02-07 16:58] LABS: Glucose, Whole Blood 129 mg/dL (60-115)
[2025-02-07 17:11] LABS: Lactic Acid 0.4 mmol/L (0.5-2.0)
[2025-02-07 20:41] LABS: Glucose, Whole Blood 176 mg/dL (60-115)
[2025-02-07] MEDS: Atorvastatin Calcium 40 MG TABLET PO (20:43)
[2025-02-07] MEDS: Insulin Lispro 100 UNIT/ML 3 ML VIAL SUBCUT (20:46)
[2025-02-07] MEDS: Acetaminophen 1,000 MG/100 ML PIGGYBACK 400 MG IV (21:05)
[2025-02-07 21:22] LABS: Hematocrit 23.7 % (37.0-47.0); Hemoglobin 8.3 g/dl (12.0-16.0)
[2025-02-08] MEDS: Acetaminophen 325 MG TABLET 975 MG PO ×4 (03:24→21:24)
[2025-02-08 03:26] LABS: Hematocrit 23.6 % (37.0-47.0); Hemoglobin 8.6 g/dl (12.0-16.0)
[2025-02-08 04:00] VITALS: BP 124/72; PULSE 93; RESP 20; TEMP 37; O2SAT 100
[2025-02-08] MEDS: Pantoprazole Sodium 40 MG/10 ML VIAL IVPUSH ×2 (06:04→16:14)
[2025-02-08 07:28] VITALS: BP 117/71; PULSE 99; RESP 19; TEMP 36.6; O2SAT 99
[2025-02-08 07:39] LABS: Glucose, Whole Blood 102 mg/dL (60-115)
[2025-02-08 07:50] LABS: Hematocrit 24.4 % (37.0-47.0); Hemoglobin 8.6 g/dl (12.0-16.0); Mean Corpuscular HGB Conc 35.2 g/dl (31.0-35.0); Mean Corpuscular Hemoglobin 30.1 pg (27.0-33.0); Mean Corpuscular Volume 85.3 fL (80.0-98.0); Mean Platelet Volume 9.1 fL (9.4-12.3); Platelet Count 249 X10*3/uL (160-400); Red Blood Count 2.86 X10*6/uL (4.20-5.50); Red Cell Distribution Width 15.8 % (11.0-16.0); White Blood Count 4.3 X10*3/uL (4.8-10.8)
[2025-02-08 08:35] LABS: Anion Gap 8 (12-20); Blood Urea Nitrogen 11 mg/dL (9-16); Calcium 7.7 mg/dL (8.4-10.2); Carbon Dioxide 22 mmol/L (22-29); Chloride 106 mmol/L (96-108); Creatinine Clr Calc Pharmacy 105.5; Estimated Glomerular Filt Rate > 60; Glucose Random 96 mg/dL (60-115); Potassium 2.6 mmol/L (3.3-5.1); Sodium 133 mmol/L (135-145)
[2025-02-08 11:16] LABS: Glucose, Whole Blood 126 mg/dL (60-115)
[2025-02-08 11:29] VITALS: BP 133/64; PULSE 90; RESP 18; TEMP 36.8; O2SAT 98
[2025-02-08] MEDS: Potassium Chloride Packet 20 MEQ PACKET 40 MEQ PO (11:42)
[2025-02-08] MEDS: Potassium Chloride Packet 20 MEQ PACKET PO (11:42)
[2025-02-08] MEDS: Potassium Chloride/H20 10 MEQ/100 ML PIGGYBACK 100 MEQ IV ×4 (11:43→16:13)
[2025-02-08] MEDS: Nystatin Powder 15 GM BOTTLE 1 APPL TOPICAL ×3 (11:43→21:25)
[2025-02-08] MEDS: 0.9 % Sodium Chloride Flush 3 ML SYRINGE IVFLUSH ×2 (11:43→16:13)
--- NOTE | 2025-02-08 12:15 | P.CNNE_ITS ---
History of Present Illness Data of Consult Service Date: 02/08/25 Primary Care Provider: Nolan Blevins MD HPI Reason for consult: Weakness 59F PMH diabetes mellitus, htn, hld, peripheral neuropathy, gerd, admitted with acute hypoxic respiratory failure with unclear etiology with progressive respiratory distress requiring intubation 01/16/2025. subsequently developed acute blood loss anemia secondary to lower GI bleed. Status post embolization on 01/22/2025. Extubated 01/24/2025. Downgraded to the medical floor 01/26. She was unable to provide any meaningful history. Review of Systems 2 Review of Systems: Could not be done with [facility] Past Medical History Medical History (Updated 02/08/25 @ 12:17 by Jasiel Arriaga MD) Blood per rectum Pneumatosis of intestines Dysphagia Anxiety disorder GERD (gastroesophageal reflux disease) Migraines Asthma On beta jordyn at home Elevated cholesterol HTN (hypertension) Smoker Diabetes Depression Heartburn Surgical History Surgical History Hx of left knee surgery History of tubal ligation History of esophagogastroduodenoscopy (EGD) H/O colonoscopy Hx of cholecystectomy Social History Social History Household Members: Children Household Members Other:: Daughter Housing: Apartment Housing Other:: pt states she lives in an apartment at her daughter's house Do you presently have visiting nurse or other home services: Yes (Daughter is MORTGAGE ADVISOR) Alcohol intake: former Comment: 1:1 sitter Patient Tobacco Use Status: Current everyday Tobacco user Tobacco use type: Cigarette Cigarette Packs Per Day: 1 Cigarettes Per Day: 20.0 Years Smoked: 15 Smoked in Last 30 Days: Yes e-Cigarette/Vaping Use: Never Used Second Hand Smoke Exposure: Yes Use of substances other than those prescribed or required for medical reasons: No Currently Displaying Signs/Symptoms of Drug Intoxication Withdrawal: No Have you been hit, kicked, punched, or otherwise hurt by someone within the past year? If so, by whom?: No Do you feel safe in your current relationship?: No Current Relationship Is there a partner from a previous relationship who is making you feel unsafe now?: No Are you made to feel afraid or neglected: No Advance Directives: No Advance Directives Information Provided: Yes Do you have a plan to hurt others: No Plan Recently lost weight without trying: Unsure Eating poorly because of decreased appetite: Yes Nutrition Risks: Poor intake 0-25% >4 days Patient : No : No service: No Current occupational status: disabled Travel History Ebola Risk: Travel/Contact With Anyone From Affected Area/s: No Meds Allergies Allergy/AdvReac Type Severity Reaction Status Date / Time iron Allergy Mild Difficulty Verified 01/15/25 16:21 Breathing Iodinated Contrast Media Allergy Unknown UNKNOWN Verified 01/15/25 16:21 [IV Dye, Iodine Containing] iodine [IODINE] Allergy Unknown RASH Verified 01/15/25 16:21 seafood Allergy Unknown Unknown Verified 01/15/25 16:21 Active Medications: Current Medications Acetaminophen (Acetaminophen 325 Mg Tablet) 975 mg PO Q6H [facility] Last Admin: 02/08/25 11:42 Dose: 975 mg Aspirin (Aspirin 81 Mg Tab.Chew) 81 mg PO DAILY [facility] Last Admin: 02/06/25 10:29 Dose: 81 mg Atorvastatin Calcium (Atorvastatin Calcium 40 Mg Tablet) 40 mg PO BEDTIME [facility] Last Admin: 02/07/25 20:43 Dose: 40 mg Dextrose (Dextrose 50 % 25 Gm/50 Ml Syringe) 25 gm IVPUSH Q15M PRN; Protocol PRN Reason: per Hypoglycemia Standing Ord. Last Admin: 01/25/25 03:11 Dose: 25 gm Glucose (Glucose Gel 15 Gm Gel..Gram.) 15 gm PO Q15M PRN; Protocol PRN Reason: per Hypoglycemia Standing Ord. Last Admin: 02/05/25 08:03 Dose: 15 gm Potassium Chloride (Potassium Chloride/H20) 10 meq in 100 mls @ 100 mls/hr IV Q1H [facility] Stop: 02/08/25 12:59 Last Admin: 02/08/25 11:43 Dose: 100 mls/hr Insulin Human Lispro (Insulin Lispro 100 Unit/Ml 3 Ml Vial) 0 unit SUBCUT QIDACHS [facility]; Protocol Last Admin: 02/08/25 11:50 Dose: Not Given Melatonin (Melatonin 3 Mg Tablet) 6 mg PO BEDTIME PRN PRN Reason: Insomnia Last Admin: 02/02/25 22:48 Dose: 6 mg Nystatin (Nystatin Powder 15 Gm Bottle) 1 appl TOPICAL TID [facility]; Protocol Last Admin: 02/08/25 11:43 Dose: 1 appl Ondansetron HCl (Ondansetron Hcl 4 Mg/2 Ml Vial) 4 mg IVPUSH Q8H PRN PRN Reason: Nausea and Vomiting Last Admin: 02/01/25 17:13 Dose: 4 mg Pantoprazole Sodium (Pantoprazole Sodium 40 Mg/10 Ml Vial) 40 mg IVPUSH BID@0630,1630 [facility] Last Admin: 02/08/25 06:04 Dose: 40 mg Potassium Chloride (Potassium Chloride Packet 20 Meq Packet) 20 meq PO DAILY [facility] Last Admin: 02/08/25 11:42 Dose: 20 meq Sodium Chloride (0.9 % Sodium Chloride Flush 3 Ml Syringe) 3 ml IVFLUSH QSHIFT [facility] Last Admin: 02/08/25 11:43 Dose: 3 ml Home Medications ?Medication ?Instructions ?Recorded ?Confirmed ?Last Taken ?Type aspirin 81 mg tablet,delayed 81 mg PO DAILY 04/21/22 01/15/25 01/15/25 History release benztropine 0.5 mg tablet 0.5 mg PO BID 04/21/22 01/15/25 01/07/25 History insulin syringe-needle U-100 0.5 #10 ea 04/21/22 12/26/24 Unknown History mL 30 gauge x 1/2 (UltiCare) haloperidol 5 mg tablet 1 tab PO BID 05/06/22 01/15/25 01/15/25 History gabapentin 100 mg capsule 100 mg PO BEDTIME 05/30/24 01/15/25 01/06/25 History insulin glargine 100 unit/mL (3 20 unit subcut BEDTIME 08/27/24 01/15/25 01/15/25 History mL) subcutaneous pen (Lantus Solostar U-100 Insulin) blood sugar diagnostic (FreeStyle #10 ea 12/04/24 12/26/24 Unknown History Lite Strips) lancets 33 gauge (TRUEplus Lancets) #100 ea 12/04/24 12/26/24 Unknown History pen needle, diabetic 31 gauge x #100 ea 12/04/24 12/26/24 Unknown History 1/4 (Easy Touch) esomeprazole magnesium 40 mg 40 mg PO DAILY@0630 12/30/24 01/15/25 01/07/25 History capsule,delayed release (Nexium) Physical Exam 2 Vital Signs: Vital Signs: Last Vital Signs Temp 98.3 F 02/08/25 11:29 Pulse 90 02/08/25 11:29 Resp 18 02/08/25 11:29 BP 133/64 02/08/25 11:29 Pulse Ox 98 02/08/25 11:29 O2 Del Method Room Air 02/08/25 11:29 O2 Flow Rate 2 01/26/25 11:20 FiO2 26 01/25/25 05:00 BMI result Body Mass Index 33.4 Neuro: Other: Alert and awake did not speak Trinidadian looking around made eye contact. Moderate peripheral edema was noted in legs and feet. Deep tendon reflexes were absent with flexor plantars. Face was symmetrical. Visual whatley are full. Exam was limited Results Labs 02/08/25 06:48 02/08/25 06:48 Labs: Short CBC 02/07/25 02/07/25 02/08/25 Range/Units 15:20 20:38 03:21 WBC (4.8-10.8) X10*3/uL Hgb 8.6 L 8.3 L 8.6 L (12.0-16.0) g/dl Hct 24.5 L 23.7 L 23.6 L (37.0-47.0) % Plt Count (160-400) X10*3/uL 02/08/25 Range/Units 06:48 WBC 4.3 L (4.8-10.8) X10*3/uL Hgb 8.6 L (12.0-16.0) g/dl Hct 24.4 L (37.0-47.0) % Plt Count 249 (160-400) X10*3/uL BMP 02/08/25 06:48 Sodium 133 L Potassium 2.6 L* D Chloride 106 Carbon Dioxide 22 BUN 11 Creatinine 0.58 Calcium 7.7 L Brain MRI revealed a punctate area of restricted diffusion right medial temporal lobe. Moderate diffuse cerebral atrophy and chronic mild microvascular ischemic changes were noted. Microbiology Microbiology Results: Microbiology 01/31/25 16:34 Blood - Venous Blood Culture - Final No growth after 5 days. 01/31/25 16:34 Blood - Venous Blood Culture - Final No growth after 5 days. 01/17/25 15:09 Bronch Lll Fungal Identification - Preliminary Pratibha albicans 01/27/25 04:03 Urine Catheterized - Straight Catheter Urine Culture - Final Citrobacter freundii 01/21/25 04:02 Blood - Venous Blood Culture - Final No growth after 5 days. 01/21/25 04:02 Blood - Venous Blood Culture - Final No growth after 5 days. 01/15/25 16:42 Blood - Venous Blood Culture - Final No growth after 5 days. 01/15/25 16:37 Blood - Venous Blood Culture - Final No growth after 5 days. 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 An EMG nerve conduction study of a limb can be requested for formal diagnosis. Mainstay of management is correction of underlying metabolic, infectious, inflammatory factors and PT OT. I would also recommend treatment with B complex vitamins including thiamine and folate zinc and vitamin-C. Procedures Date of Service Date of Service: 02/08/25
--- NOTE | 2025-02-08 12:33 | P.PNIM_ITS ---
Subjective Subjective Date of Service: 02/08/25 Interval History: seen and examined this morning follow up for GI bleeding, weakness History obtained with the assistance of a [employer] principal Patient awake, alert reporting mild abdominal pain continues to have intermittent bloody stools but less frequent Review of Systems Review of Systems: Yes all other systems are reviewed and are negative Constitutional Constitutional: Denies chills and Denies fever(s) Physical Exam 2 Vital Signs: Vital Signs: Last Vital Signs Temp 98.3 F 02/08/25 11:29 Pulse 90 02/08/25 11:29 Resp 18 02/08/25 11:29 BP 133/64 02/08/25 11:29 Pulse Ox 98 02/08/25 11:29 O2 Del Method Room Air 02/08/25 11:29 O2 Flow Rate 2 01/26/25 11:20 FiO2 26 01/25/25 05:00 BMI result Body Mass Index 33.4 Const: General: comfortable, alert and awake Nutritional Appearance: a verage body habitus Resp: Other: diminished breath sounds; decreased respiratory effort Effort & Inspection: no respiratory distress and no use of accessory muscles Cardio: Rate: regular rate GI: Inspection: No distended Palpation (GI): Soft to palpation Neuro: Other: b/l UE weakness, right arm seems a little better today and left arm seems a little more weak; b/l LE weakness face symmetrical, tongue midline Extrem: Other: LUE swelling Objective Data Active Medications Acetaminophen (Acetaminophen 325 Mg Tablet) 975 mg PO Q6H [facility] Last Admin: 02/08/25 11:42 Dose: 975 mg Documented By: MICKEY Aspirin (Aspirin 81 Mg Tab.Chew) 81 mg PO DAILY [facility] Last Admin: 02/06/25 10:29 Dose: 81 mg Documented By: BRANDEE Atorvastatin Calcium (Atorvastatin Calcium 40 Mg Tablet) 40 mg PO BEDTIME [facility] Last Admin: 02/07/25 20:43 Dose: 40 mg Documented By: ANTOINC Dextrose (Dextrose 50 % 25 Gm/50 Ml Syringe) 25 gm IVPUSH Q15M PRN; Protocol PRN Reason: per Hypoglycemia Standing Ord. Last Admin: 01/25/25 03:11 Dose: 25 gm Documented By: PRINCE Comments: per provider Glucose (Glucose Gel 15 Gm Gel..Gram.) 15 gm PO Q15M PRN; Protocol PRN Reason: per Hypoglycemia Standing Ord. Last Admin: 02/05/25 08:03 Dose: 15 gm Documented By: BRANDEE Potassium Chloride (Potassium Chloride/H20) 10 meq in 100 mls @ 100 mls/hr IV Q1H [facility] Stop: 02/08/25 12:59 Last Admin: 02/08/25 11:43 Dose: 100 mls/hr Documented By: MICKEY Insulin Human Lispro (Insulin Lispro 100 Unit/Ml 3 Ml Vial) 0 unit SUBCUT QIDACHS [facility]; Protocol Last Admin: 02/08/25 11:50 Dose: Not Given Documented By: MICKEY Non-Admin Reason: No Insulin Coverage Melatonin (Melatonin 3 Mg Tablet) 6 mg PO BEDTIME PRN PRN Reason: Insomnia Last Admin: 02/02/25 22:48 Dose: 6 mg Documented By: DENISA Comments: requested for sleep Nystatin (Nystatin Powder 15 Gm Bottle) 1 appl TOPICAL TID [facility]; Protocol Last Admin: 02/08/25 11:43 Dose: 1 appl Documented By: MICKEY Ondansetron HCl (Ondansetron Hcl 4 Mg/2 Ml Vial) 4 mg IVPUSH Q8H PRN PRN Reason: Nausea and Vomiting Last Admin: 02/01/25 17:13 Dose: 4 mg Documented By: SHABNAM Pantoprazole Sodium (Pantoprazole Sodium 40 Mg/10 Ml Vial) 40 mg IVPUSH BID@0630,1630 [facility] Last Admin: 02/08/25 06:04 Dose: 40 mg Documented By: ANTOINC Potassium Chloride (Potassium Chloride Packet 20 Meq Packet) 20 meq PO DAILY [facility] Last Admin: 02/08/25 11:42 Dose: 20 meq Documented By: MICKEY Sodium Chloride (0.9 % Sodium Chloride Flush 3 Ml Syringe) 3 ml IVFLUSH QSHIFT [facility] Last Admin: 02/08/25 11:43 Dose: 3 ml Documented By: MICKEY Labs 02/08/25 06:48 02/08/25 06:48 Labs: Laboratory Results - last 24 hr 02/07/25 02/07/25 02/07/25 08:39 16:16 16:40 MCV MCH MCHC RDW Plt Count MPV Absolute Nucleated RBC Nucleated RBC % (auto) Anion Gap Estim Creat Clear Calc Estimated GFR POC Glucose Random Glucose Lactic Acid 0.4 L Calcium Lactate Dehydrogenase 211 Hold Yellow Top See Note 02/07/25 02/07/25 02/08/25 16:52 20:30 06:48 MCV 85.3 MCH 30.1 MCHC 35.2 H RDW 15.8 Plt Count 249 MPV 9.1 L Absolute Nucleated RBC 0.000 Nucleated RBC % (auto) 0.0 Anion Gap 8 L Estim Creat Clear Calc 105.5 Estimated GFR > 60 POC Glucose 129 H 176 H Random Glucose 96 Lactic Acid Calcium 7.7 L Lactate Dehydrogenase Hold Yellow Top 02/08/25 02/08/25 07:28 11:11 MCV MCH MCHC RDW Plt Count MPV Absolute Nucleated RBC Nucleated RBC % (auto) Anion Gap Estim Creat Clear Calc Estimated GFR POC Glucose 102 126 H Random Glucose Lactic Acid Calcium Lactate Dehydrogenase Hold Yellow Top Assessment and Plan (1) Peripheral neuropathy: Status: Acute Plan This is a 59F PMH diabetes mellitus, htn, hld, peripheral neuropathy, gerd, admitted with acute hypoxic respiratory failure with unclear etiology with progressive respiratory distress requiring intubation 01/16/2025. subsequently developed acute blood loss anemia secondary to lower GI bleed. Status post embolization on 01/22/2025. Extubated 01/24/2025. Downgraded to the medical floor 01/26. Also with noted encephalopathy and MRI from 01/20 c/w stroke now with recurrent rectal bleeding. Acute lower GI bleed with acute blood loss anemia and hemmorragic shock titrated off pressors in ICU Tagged red cell scan was positive on 01/21/2025 status post embolization on 01/22/2025 Successful embolization of active bleeding identified from branches of the inferior mesenteric artery supplying the proximal sigmoid colon. additional units given on 01/26 and 02/02/25 (4 total) recurrent rectal bleeding 02/07; repeat ct bleeding scan negative for active source of bleeding continues to have intermittent episodes of rectal bleeding but H/H has remained relatively stable continue clear liquids for now follow serial H/H, if remains stable can advance to full liquids 02/09 plan for Flex Sig on Monday, NPO Monday night at midnight right sided ischemic colitis surgery and gi following s/p course of zosyn Chronic diarrhea GI panel, C diff negative s/p course of Zosyn repeat imaging showing large amount of stool ?overflow diarrhea also with persistent colitis - no further antibiotics plan for flex sig as above b/l pleural effusions/anasarca no hypoxia will start gentle lasix Acute hypokalemia, acute hypomagnesemia replacement follow BMP, mg Insulin-dependent type 2 diabetes with hypoglycemia lantus stopped continue Sliding-scale insulin Diabetic diet Hypoglycemia, d/t poor po intake Acute toxic metabolic Encephalopathy likely 2/2 acute stroke improving MRI brain with small acute right occipital infarct and stigmata of prior CVAs with moderate changes of small vessel ischemia and numerous old lacunar type infarcts in the anterior gangliocapsular regions and left thalamus. 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 suspected PNA on admission, completed abx extubated 01/24/2025 weaned off to RA Acute renal failure with metabolic acidosis resolved now with resp alkalosis Acute Hypernatremia resolved Hypotension Placed on Clonidine patch in ICU, DCd; BP improved since then patient tends to have orthostatic hypotension with supine hypertension mood disorder haldol and cogentin have been on hold d/w psych - ok to resume when able to take po UTI urine culture goriwng citrobacter s/p abx urinary retention failed voiding trial, replace cornejo Prophylaxis: Pneumatic compression reason for continued hospitalization: ongoing diarrhea, recurrent GI bleeding Quality Stroke Does the patient have a stroke diagnosis?: No VTE Prior VTE?: No VTE Risk Level:: Medical - moderate - high VTE Device Contraindication: N/A - Device Ordered VTE Drug Contraindication: N/A - Med Ordered
[2025-02-08] MEDS: Furosemide 20 MG/2 ML VIAL IVPUSH (13:15)
[2025-02-08 15:15] LABS: Hematocrit 23.7 % (37.0-47.0); Hemoglobin 8.3 g/dl (12.0-16.0)
[2025-02-08 15:37] VITALS: BP 122/80; PULSE 98; RESP 19; TEMP 36.9; O2SAT 99
--- NOTE | 2025-02-08 15:51 | PM.PNGS ---
Subjective Subjective Date of Service: 02/08/25 Interval history: As per family at bedside, small amounts of blood noted earlier today per rectum Otherwise she appears to be doing well Denies abdominal pain Physical Exam Vital Signs: Vital Signs: Last Vital Signs Temp 98.5 F 02/08/25 15:37 Pulse 98 02/08/25 15:37 Resp 19 02/08/25 15:37 BP 122/80 02/08/25 15:37 Pulse Ox 99 02/08/25 15:37 O2 Del Method Room Air 02/08/25 15:37 O2 Flow Rate 2 01/26/25 11:20 FiO2 26 01/25/25 05:00 BMI result Body Mass Index 33.4 Const: General: comfortable and no acute distress Resp: Effort & Inspection: normal respiratory effort Cardio: Rate: regular rate GI: Palpation (GI): Soft to palpation, not firm, nontender and no guarding Objective Data Active Medications Acetaminophen (Acetaminophen 325 Mg Tablet) 975 mg PO Q6H [facility] Last Admin: 02/08/25 11:42 Dose: 975 mg Documented By: MICKEY Ascorbic Acid (Ascorbic Acid 250 Mg Tablet) 250 mg PO DAILY [facility] Atorvastatin Calcium (Atorvastatin Calcium 40 Mg Tablet) 40 mg PO BEDTIME [facility] Last Admin: 02/07/25 20:43 Dose: 40 mg Documented By: ANTOINC Dextrose (Dextrose 50 % 25 Gm/50 Ml Syringe) 25 gm IVPUSH Q15M PRN; Protocol PRN Reason: per Hypoglycemia Standing Ord. Last Admin: 01/25/25 03:11 Dose: 25 gm Documented By: PRINCE Comments: per provider Folic Acid (Folic Acid 1 Mg Tablet) 1 mg PO DAILY [facility] [place] Furosemide (Furosemide 20 Mg/2 Ml Vial) 20 mg IVPUSH Q24H [facility]; Protocol Last Admin: 02/08/25 13:15 Dose: 20 mg Documented By: MICKEY Glucose (Glucose Gel 15 Gm Gel..Gram.) 15 gm PO Q15M PRN; Protocol PRN Reason: per Hypoglycemia Standing Ord. Last Admin: 02/05/25 08:03 Dose: 15 gm Documented By: BRANDEE Insulin Human Lispro (Insulin Lispro 100 Unit/Ml 3 Ml Vial) 0 unit SUBCUT QIDACHS [facility]; Protocol Last Admin: 02/08/25 11:50 Dose: Not Given Documented By: MICKEY Non-Admin Reason: No Insulin Coverage Melatonin (Melatonin 3 Mg Tablet) 6 mg PO BEDTIME PRN PRN Reason: Insomnia Last Admin: 02/02/25 22:48 Dose: 6 mg Documented By: DENISA Comments: requested for sleep Nystatin (Nystatin Powder 15 Gm Bottle) 1 appl TOPICAL TID [facility] [place]; Protocol Last Admin: 02/08/25 13:15 Dose: 1 appl Documented By: MICKEY Ondansetron HCl (Ondansetron Hcl 4 Mg/2 Ml Vial) 4 mg IVPUSH Q8H PRN PRN Reason: Nausea and Vomiting Last Admin: 02/01/25 17:13 Dose: 4 mg Documented By: SHABNAM Pantoprazole Sodium (Pantoprazole Sodium 40 Mg/10 Ml Vial) 40 mg IVPUSH BID@0630,1630 [facility] [place] Last Admin: 02/08/25 06:04 Dose: 40 mg Documented By: ANTOINC Potassium Chloride (Potassium Chloride Packet 20 Meq Packet) 20 meq PO DAILY [facility] [place] Last Admin: 02/08/25 11:42 Dose: 20 meq Documented By: MICKEY Sodium Chloride (0.9 % Sodium Chloride Flush 3 Ml Syringe) 3 ml IVFLUSH QSHIFT [facility] [place] Last Admin: 02/08/25 11:43 Dose: 3 ml Documented By: MICKEY Thiamine HCl (Thiamine Hcl 100 Mg Tablet) 100 mg PO DAILY [facility] Zinc Sulfate (Zinc Sulfate 220 Mg Capsule) 220 mg PO DAILY [facility] Labs 02/08/25 15:02 02/08/25 06:48 Labs: Laboratory Results - last 24 hr 02/07/25 02/07/25 02/07/25 08:39 16:16 16:40 MCV MCH MCHC RDW Plt Count MPV Absolute Nucleated RBC Nucleated RBC % (auto) Anion Gap Estim Creat Clear Calc Estimated GFR POC Glucose Random Glucose Lactic Acid 0.4 L Calcium Lactate Dehydrogenase 211 Hold Yellow Top See Note 02/07/25 02/07/25 02/08/25 16:52 20:30 06:48 MCV 85.3 MCH 30.1 MCHC 35.2 H RDW 15.8 Plt Count 249 MPV 9.1 L Absolute Nucleated RBC 0.000 Nucleated RBC % (auto) 0.0 Anion Gap 8 L Estim Creat Clear Calc 105.5 Estimated GFR > 60 POC Glucose 129 H 176 H Random Glucose 96 Lactic Acid Calcium 7.7 L Lactate Dehydrogenase Hold Yellow Top 02/08/25 02/08/25 07:28 11:11 MCV MCH MCHC RDW Plt Count MPV Absolute Nucleated RBC Nucleated RBC % (auto) Anion Gap Estim Creat Clear Calc Estimated GFR POC Glucose 102 126 H Random Glucose Lactic Acid Calcium Lactate Dehydrogenase Hold Yellow Top Procedures Date of Service Date of Service: 02/08/25 Progress Note: A&P Assessment and plan (1) Blood per rectum: Status: Acute Assessment and Plan: Bleeding per rectum has slowed down significantly Previously had per GI source Uncertain if this has this same etiology - maybe colonic from ischemic colitis Slight drift in hemoglobin Otherwise hemodynamically stable Avoid anticoagulants Time Spent With Patient Time: Total time managing care of this patient today ____ minutes. Quality Stroke Does the patient have a stroke diagnosis?: No VTE Prior VTE?: No VTE Risk Level:: Medical - moderate - high VTE Device Contraindication: N/A - Device Ordered VTE Drug Contraindication: N/A - Med Ordered
[2025-02-08 15:56] LABS: Glucose, Whole Blood 161 mg/dL (60-115)
[2025-02-08] MEDS: Insulin Lispro 100 UNIT/ML 3 ML VIAL SUBCUT (16:14)
[2025-02-08 20:00] VITALS: BP 146/72; PULSE 92; RESP 24; TEMP 36.9; O2SAT 97
[2025-02-08 20:34] LABS: Glucose, Whole Blood 139 mg/dL (60-115)
[2025-02-08] MEDS: Atorvastatin Calcium 40 MG TABLET PO (21:24)
[2025-02-09] VITALS (10 sets, daily range): BP systolic 126–165; BP diastolic 58–96; PULSE 80–107; RESP 16–26; TEMP 36.2–37.2; O2SAT 96–100; BMI 27.4
[2025-02-09] MEDS: Acetaminophen 325 MG TABLET 975 MG PO ×3 (05:22→17:08)
[2025-02-09] MEDS: 0.9 % Sodium Chloride Flush 3 ML SYRINGE IVFLUSH ×3 (05:24→17:10)
[2025-02-09] MEDS: Pantoprazole Sodium 40 MG/10 ML VIAL IVPUSH ×2 (05:25→17:09)
[2025-02-09 07:12] LABS: Glucose, Whole Blood 117 mg/dL (60-115)
[2025-02-09] MEDS: Potassium Chloride Packet 20 MEQ PACKET PO ×2 (09:35→12:03)
[2025-02-09] MEDS: Zinc Sulfate 220 MG CAPSULE PO (09:35)
[2025-02-09] MEDS: Ascorbic Acid 250 MG TABLET PO (09:35)
[2025-02-09] MEDS: Thiamine HCL 100 MG TABLET PO (09:35)
[2025-02-09] MEDS: Nystatin Powder 15 GM BOTTLE 1 APPL TOPICAL ×3 (09:36→21:07)
[2025-02-09] MEDS: Folic Acid 1 MG TABLET PO (09:36)
--- NOTE | 2025-02-09 10:45 | HO.PM.IMPN ---
Subjective Subjective Date of Service: 02/09/25 Interval History: Seen and examined this morning Follow-up for colitis/GI bleeding/weakness History obtained with the assistance of a sap fico architect and discussed with family at bedside Patient continues to report mild mid abdominal pain Left arm swelling, leg swelling improving somewhat Review of Systems Review of Systems: Yes all other systems are reviewed and are negative Constitutional Constitutional: Denies chills and Denies fever(s) Cardiovascular Cardiovascular: Denies chest pain, Denies palpitations and Denies dyspnea Respiratory Respiratory: Denies cough and Denies dyspnea Gastrointestinal Gastrointestinal: Reports abdominal pain, Denies nausea and Reports vomiting Endocrine Endocrine: Denies palpitations Physical Exam Vital Signs: Vital Signs: Last Vital Signs Temp 97.6 F 02/09/25 07:41 Pulse 97 02/09/25 07:41 Resp 18 02/09/25 07:41 BP 143/76 H 02/09/25 07:41 Pulse Ox 100 02/09/25 07:41 O2 Del Method Room Air 02/09/25 07:41 O2 Flow Rate 2 01/26/25 11:20 FiO2 26 01/25/25 05:00 BMI result Body Mass Index 27.4 Const: General: cooperative, comfortable, alert and awake Nutritional Appearance: average body habitus Orientation/consciousness: patient oriented x3 Resp: Other: diminished breath sounds chronic belly breathing Effort & Inspection: no respiratory distress and no use of accessory muscles Cardio: Rate: regular rate and tachycardic GI: Inspection: No distended Palpation (GI): Soft to palpation Neuro: Other: b/l UE weakness, right arm seems a little better today and left arm seems a little more weak; b/l LE weakness face symmetrical, tongue midline General: patient oriented x3 Extrem: Other: LUE swelling improving b/l leg swelling ankle/thigh somewhat better Objective Data Active Medications Acetaminophen (Acetaminophen 325 Mg Tablet) 975 mg PO Q6H [facility] Last Admin: 02/09/25 09:35 Dose: 975 mg Documented By: NIKKI Ascorbic Acid (Ascorbic Acid 250 Mg Tablet) 250 mg PO DAILY [facility] Last Admin: 02/09/25 09:35 Dose: 250 mg Documented By: NIKKI Atorvastatin Calcium (Atorvastatin Calcium 40 Mg Tablet) 40 mg PO BEDTIME [facility] Last Admin: 02/08/25 21:24 Dose: 40 mg Documented By: YUSUF Dextrose (Dextrose 50 % 25 Gm/50 Ml Syringe) 25 gm IVPUSH Q15M PRN; Protocol PRN Reason: per Hypoglycemia Standing Ord. Last Admin: 01/25/25 03:11 Dose: 25 gm Documented By: PRINCE Comments: per provider Folic Acid (Folic Acid 1 Mg Tablet) 1 mg PO DAILY [facility] Last Admin: 02/09/25 09:36 Dose: 1 mg Documented By: NIKKI Furosemide (Furosemide 20 Mg/2 Ml Vial) 20 mg IVPUSH Q24H [facility]; Protocol Last Admin: 02/08/25 13:15 Dose: 20 mg Documented By: MICKEY Glucose (Glucose Gel 15 Gm Gel..Gram.) 15 gm PO Q15M PRN; Protocol PRN Reason: per Hypoglycemia Standing Ord. Last Admin: 02/05/25 08:03 Dose: 15 gm Documented By: BRANDEE Insulin Human Lispro (Insulin Lispro 100 Unit/Ml 3 Ml Vial) 0 unit SUBCUT QIDACHS [facility]; Protocol Last Admin: 02/09/25 07:39 Dose: Not Given Documented By: NIKKI Non-Admin Reason: No Insulin Coverage Melatonin (Melatonin 3 Mg Tablet) 6 mg PO BEDTIME PRN PRN Reason: Insomnia Last Admin: 02/02/25 22:48 Dose: 6 mg Documented By: DENISA Comments: requested for sleep Nystatin (Nystatin Powder 15 Gm Bottle) 1 appl TOPICAL TID [facility]; Protocol Last Admin: 02/09/25 09:36 Dose: 1 appl Documented By: NIKKI Ondansetron HCl (Ondansetron Hcl 4 Mg/2 Ml Vial) 4 mg IVPUSH Q8H PRN PRN Reason: Nausea and Vomiting Last Admin: 02/01/25 17:13 Dose: 4 mg Documented By: SHABNAM Pantoprazole Sodium (Pantoprazole Sodium 40 Mg/10 Ml Vial) 40 mg IVPUSH BID@0630,1630 [facility] Last Admin: 02/09/25 05:25 Dose: 40 mg Documented By: YUSUF Potassium Chloride (Potassium Chloride Packet 20 Meq Packet) 20 meq PO DAILY [facility] Last Admin: 02/09/25 09:35 Dose: 20 meq Documented By: NIKKI Sodium Chloride (0.9 % Sodium Chloride Flush 3 Ml Syringe) 3 ml IVFLUSH QSHIFT [facility] Last Admin: 02/09/25 09:43 Dose: 3 ml Documented By: NIKKI Thiamine HCl (Thiamine Hcl 100 Mg Tablet) 100 mg PO DAILY [facility] Last Admin: 02/09/25 09:35 Dose: 100 mg Documented By: NIKKI Zinc Sulfate (Zinc Sulfate 220 Mg Capsule) 220 mg PO DAILY [facility] Last Admin: 02/09/25 09:35 Dose: 220 mg Documented By: NIKKI Labs 02/09/25 10:04 02/09/25 10:04 Labs: Laboratory Results - last 24 hr 02/08/25 02/08/25 02/08/25 11:11 15:42 20:31 POC Glucose 126 H 161 H 139 H 02/09/25 07:03 POC Glucose 117 H Assessment and Plan (1) Peripheral neuropathy: Status: Acute (2) Blood per rectum: Status: Acute (3) Pneumatosis of intestines: Status: Acute Plan This is a 59F PMH diabetes mellitus, htn, hld, peripheral neuropathy, gerd, admitted with acute hypoxic respiratory failure with unclear etiology with progressive respiratory distress requiring intubation 01/16/2025. subsequently developed acute blood loss anemia secondary to lower GI bleed. Status post embolization on 01/22/2025. Extubated 01/24/2025. Downgraded to the medical floor 01/26. Also with noted encephalopathy and MRI from 01/20 c/w stroke now with recurrent rectal bleeding. Acute lower GI bleed with acute blood loss anemia and hemmorragic shock titrated off pressors in ICU Tagged red cell scan was positive on 01/21/2025 status post embolization on 01/22/2025 Successful embolization of active bleeding identified from branches of the inferior mesenteric artery supplying the proximal sigmoid colon. additional units given on 01/26 and 02/02/25 (4 total) recurrent rectal bleeding 02/07; repeat ct bleeding scan negative for active source of bleeding continues to have intermittent episodes of rectal bleeding but H/H has remained relatively stable Per GI okay to advance to full liquids today plan for Flex Sig on Monday, NPO Monday night at midnight right sided ischemic colitis surgery and gi following s/p course of zosyn Chronic diarrhea GI panel, C diff negative s/p course of Zosyn repeat imaging showing large amount of stool ?overflow diarrhea also with persistent colitis - no further antibiotics plan for flex sig as above b/l pleural effusions/anasarca no hypoxia will start gentle lasix Acute hypokalemia, acute hypomagnesemia Due to poor nutrition, decreased p.o. intake Continue scheduled potassium replacement IV magnesium Insulin-dependent type 2 diabetes with hypoglycemia lantus stopped continue Sliding-scale insulin Diabetic diet Hypoglycemia, d/t poor po intake Acute toxic metabolic Encephalopathy likely 2/2 acute stroke improving MRI brain with small acute right occipital infarct and stigmata of prior CVAs with moderate changes of small vessel ischemia and numerous old lacunar type infarcts in the anterior gangliocapsular regions and left thalamus. 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 suspected PNA on admission, completed abx extubated 01/24/2025 weaned off to RA Acute renal failure with metabolic acidosis resolved now with resp alkalosis Acute Hypernatremia resolved Hypotension Placed on Clonidine patch in ICU, DCd; BP improved since then patient tends to have orthostatic hypotension with supine hypertension mood disorder haldol and cogentin have been on hold d/w psych - ok to resume when able to take po UTI urine culture growing citrobacter s/p abx urinary retention failed voiding trial, replace cornejo Prophylaxis: Pneumatic compression reason for continued hospitalization: ongoing diarrhea, recurrent GI bleeding Quality Stroke Does the patient have a stroke diagnosis?: No VTE Prior VTE?: No VTE Risk Level:: Medical - moderate - high VTE Device Contraindication: N/A - Device Ordered VTE Drug Contraindication: N/A - Med Ordered
[2025-02-09 10:46] LABS: Hematocrit 22.5 % (37.0-47.0); Hemoglobin 8.1 g/dl (12.0-16.0); Mean Corpuscular Hemoglobin 30.3 pg (27.0-33.0); Mean Corpuscular Volume 84.3 fL (80.0-98.0); Mean Platelet Volume 8.9 fL (9.4-12.3); Platelet Count 191 X10*3/uL (160-400); Red Blood Count 2.67 X10*6/uL (4.20-5.50); Red Cell Distribution Width 16.1 % (11.0-16.0); White Blood Count 4.1 X10*3/uL (4.8-10.8)
[2025-02-09 11:07] LABS: Anion Gap 10 (12-20); Blood Urea Nitrogen 11 mg/dL (9-16); Calcium 7.2 mg/dL (8.4-10.2); Carbon Dioxide 22 mmol/L (22-29); Chloride 104 mmol/L (96-108); Creatinine Clr Calc Pharmacy 88.1; Estimated Glomerular Filt Rate > 60; Glucose Random 145 mg/dL (60-115); Magnesium 1.4 mg/dL (1.6-2.6); Potassium 3.2 mmol/L (3.3-5.1); Sodium 133 mmol/L (135-145)
[2025-02-09 11:31] LABS: Glucose, Whole Blood 141 mg/dL (60-115)
[2025-02-09] MEDS: Magnesium Sulfate/H2O 2 GM/50 ML PIGGYBACK IV (11:38)
[2025-02-09] MEDS: Furosemide 20 MG/2 ML VIAL IVPUSH ×2 (11:38→17:09)
[2025-02-09] MEDS: ondansetron HCL 4 MG/2 ML VIAL IVPUSH (12:03)
--- NOTE | 2025-02-09 14:36 | P.PNGS_ITS ---
Subjective Subjective Date of Service: 02/10/25 Interval history: Reported to have 1 episode of vomiting Currently patient denies any abdominal pain Says she feels well Physical Exam 2 Vital Signs: Vital Signs: Last Vital Signs Temp 98.9 F 02/09/25 11:33 Pulse 92 02/09/25 11:33 Resp 18 02/09/25 11:33 BP 128/68 02/09/25 11:33 Pulse Ox 100 02/09/25 11:33 O2 Del Method Room Air 02/09/25 11:33 O2 Flow Rate 2 01/26/25 11:20 FiO2 26 01/25/25 05:00 BMI result Body Mass Index 27.4 Const: Other: Appears mildly short of breath General: comfortable and no acute distress Resp: Other: Mildly short of breath Cardio: Rate: regular rate GI: Inspection: No distended Palpation (GI): Soft to palpation, not firm, nontender and no guarding Objective Data Active Medications Acetaminophen (Acetaminophen 325 Mg Tablet) 975 mg PO Q6H [facility] Last Admin: 02/09/25 09:35 Dose: 975 mg Documented By: NIKKI Ascorbic Acid (Ascorbic Acid 250 Mg Tablet) 250 mg PO DAILY [facility] Last Admin: 02/09/25 09:35 Dose: 250 mg Documented By: NIKKI Atorvastatin Calcium (Atorvastatin Calcium 40 Mg Tablet) 40 mg PO BEDTIME [facility] Last Admin: 02/08/25 21:24 Dose: 40 mg Documented By: YUSUF Dextrose (Dextrose 50 % 25 Gm/50 Ml Syringe) 25 gm IVPUSH Q15M PRN; Protocol PRN Reason: per Hypoglycemia Standing Ord. Last Admin: 01/25/25 03:11 Dose: 25 gm Documented By: PRINCE Comments: per provider Folic Acid (Folic Acid 1 Mg Tablet) 1 mg PO DAILY [facility] Last Admin: 02/09/25 09:36 Dose: 1 mg Documented By: NIKKI Furosemide (Furosemide 20 Mg/2 Ml Vial) 20 mg IVPUSH BID@0900,1800 [facility]; Protocol Glucose (Glucose Gel 15 Gm Gel..Gram.) 15 gm PO Q15M PRN; Protocol PRN Reason: per Hypoglycemia Standing Ord. Last Admin: 02/05/25 08:03 Dose: 15 gm Documented By: BRANDEE Insulin Human Lispro (Insulin Lispro 100 Unit/Ml 3 Ml Vial) 0 unit SUBCUT QIDACHS [facility]; Protocol Last Admin: 02/09/25 11:32 Dose: Not Given Documented By: NIKKI Non-Admin Reason: No Insulin Coverage Melatonin (Melatonin 3 Mg Tablet) 6 mg PO BEDTIME PRN PRN Reason: Insomnia Last Admin: 02/02/25 22:48 Dose: 6 mg Documented By: DENISA Comments: requested for sleep Nystatin (Nystatin Powder 15 Gm Bottle) 1 appl TOPICAL TID [facility]; Protocol Last Admin: 02/09/25 09:36 Dose: 1 appl Documented By: NIKKI Ondansetron HCl (Ondansetron Hcl 4 Mg/2 Ml Vial) 4 mg IVPUSH Q8H PRN PRN Reason: Nausea and Vomiting Last Admin: 02/09/25 12:03 Dose: 4 mg Documented By: NIKKI Pantoprazole Sodium (Pantoprazole Sodium 40 Mg/10 Ml Vial) 40 mg IVPUSH BID@0630,1630 [facility] Last Admin: 02/09/25 05:25 Dose: 40 mg Documented By: YUSUF Potassium Chloride (Potassium Chloride Packet 20 Meq Packet) 40 meq PO BID [facility] Sodium Chloride (0.9 % Sodium Chloride Flush 3 Ml Syringe) 3 ml IVFLUSH QSHIFT [facility] Last Admin: 02/09/25 09:43 Dose: 3 ml Documented By: NIKKI Thiamine HCl (Thiamine Hcl 100 Mg Tablet) 100 mg PO DAILY [facility] Last Admin: 02/09/25 09:35 Dose: 100 mg Documented By: NIKKI Zinc Sulfate (Zinc Sulfate 220 Mg Capsule) 220 mg PO DAILY [facility] Last Admin: 02/09/25 09:35 Dose: 220 mg Documented By: NIKKI Labs 02/10/25 06:34 02/10/25 06:33 Labs: Laboratory Results - last 24 hr 02/07/25 02/08/25 02/08/25 08:39 15:42 20:31 MCV MCH MCHC RDW Plt Count MPV Absolute Nucleated RBC Nucleated RBC % (auto) Anion Gap Estim Creat Clear Calc Estimated GFR POC Glucose 161 H 139 H Random Glucose Calcium Magnesium Blood Type B Positive Antibody Screen NEGATIVE Crossmatch See Detail 02/09/25 02/09/25 02/09/25 07:03 10:04 11:28 MCV 84.3 MCH 30.3 MCHC 36.0 H RDW 16.1 H Plt Count 191 MPV 8.9 L Absolute Nucleated RBC 0.000 Nucleated RBC % (auto) 0.0 Anion Gap 10 L Estim Creat Clear Calc 88.1 Estimated GFR > 60 POC Glucose 117 H 141 H Random Glucose 145 H Calcium 7.2 L D Magnesium 1.4 L* Blood Type Antibody Screen Crossmatch Procedures Date of Service Date of Service: 02/10/25 Progress Note: A&P Assessment and plan (1) GI bleed: Status: Acute Assessment and Plan: No reported her there blood per rectum Abdomen remained soft and benign Drift in hemoglobin - ordered to have [address] angiogram suggestive of colitis Seen by GI - flex sig tomorrow Time Spent With Patient Time: Total time managing care of this patient today ____ minutes. Quality Stroke Does the patient have a stroke diagnosis?: No VTE Prior VTE?: No VTE Risk Level:: Medical - moderate - high VTE Device Contraindication: N/A - Device Ordered VTE Drug Contraindication: N/A - Med Ordered
[2025-02-09 15:48] LABS: Glucose, Whole Blood 144 mg/dL (60-115)
[2025-02-09] MEDS: Potassium Chloride Packet 20 MEQ PACKET 40 MEQ PO (21:07)
[2025-02-09] MEDS: Atorvastatin Calcium 40 MG TABLET PO (21:07)
[2025-02-09 21:15] LABS: Glucose, Whole Blood 146 mg/dL (60-115)
[2025-02-10] VITALS (11 sets, daily range): BP systolic 113–151; BP diastolic 58–86; PULSE 84–106; RESP 16–28; TEMP 36.6–37.2; O2SAT 92–100; BMI 26.8
[2025-02-10] MEDS: 0.9 % Sodium Chloride Flush 3 ML SYRINGE IVFLUSH ×4 (01:57→22:55)
[2025-02-10] MEDS: Acetaminophen 325 MG TABLET 975 MG PO ×3 (04:30→22:44)
[2025-02-10] MEDS: guaiFENesin 200 MG/10 ML 10 ML LIQUID PO ×2 (05:13→09:55)
[2025-02-10] MEDS: Pantoprazole Sodium 40 MG/10 ML VIAL IVPUSH ×3 (05:47→17:54)
[2025-02-10 07:05] LABS: Hematocrit 28.3 % (37.0-47.0); Hemoglobin 9.7 g/dl (12.0-16.0); Mean Corpuscular HGB Conc 34.3 g/dl (31.0-35.0); Mean Corpuscular Hemoglobin 29.1 pg (27.0-33.0); Mean Platelet Volume 8.8 fL (9.4-12.3); Platelet Count 180 X10*3/uL (160-400); Red Blood Count 3.33 X10*6/uL (4.20-5.50); Red Cell Distribution Width 15.9 % (11.0-16.0); White Blood Count 3.5 X10*3/uL (4.8-10.8)
[2025-02-10 07:21] LABS: Anion Gap 10 (12-20); Blood Urea Nitrogen 10 mg/dL (9-16); Calcium 7.3 mg/dL (8.4-10.2); Carbon Dioxide 25 mmol/L (22-29); Chloride 103 mmol/L (96-108); Creatinine Clr Calc Pharmacy 91.5; Estimated Glomerular Filt Rate > 60; Glucose Random 119 mg/dL (60-115); Potassium 4.4 mmol/L (3.3-5.1); Sodium 134 mmol/L (135-145)
[2025-02-10 08:04] LABS: Glucose, Whole Blood 114 mg/dL (60-115)
[2025-02-10] MEDS: Furosemide 20 MG/2 ML VIAL IVPUSH ×2 (09:55→17:52)
[2025-02-10] MEDS: Nystatin Powder 15 GM BOTTLE 1 APPL TOPICAL ×2 (09:56→22:52)
--- NOTE | 2025-02-10 11:10 | MHC.CLN ---
F/U HAD CLEAR AND FULL LIQUID DIET OVER THE WEEKEND DIET IS CURRENTLY NPO FOR PROCEDURE PO INTAKE SLIGHTLY IMPROVED PRIOR TO NPO STATUS 50-75% WHEN DIET TO RESUME; RECOMMEND RE-STARTING ENSURE TID TO PROVIDE 1050KCALS, 60G PROTEIN PT NOTED WITH FRAGILE SKIN CONTINUE TO FOLLOW FOR DIET ADVANCEMENT
--- NOTE | 2025-02-10 11:39 | MHC.CM.PN ---
EMR reviewed and per MD rounds, pt is not medically cleared for discharge due to management of ongoing diarrhea, recurrent GI bleeding, with Sigmoidoscopy pending today. [facility] acute rehab still following, anticipating pt may be ready for discharge tomorrow.
[2025-02-10 12:00] LABS: Glucose, Whole Blood 103 mg/dL (60-115)
--- NOTE | 2025-02-10 12:39 | HO.PM.IMPN ---
Subjective Subjective Date of Service: 02/10/25 Interval History: Follow-up for colitis/GI bleeding/weakness Patient continues to report mild mid abdominal pain Left arm swelling, leg swelling improving somewhat Review of Systems Review of Systems: Yes all other systems are reviewed and are negative Constitutional Constitutional: Denies chills and Denies fever(s) Cardiovascular Cardiovascular: Denies chest pain, Denies palpitations and Denies dyspnea Respiratory Respiratory: Denies cough and Denies dyspnea Gastrointestinal Gastrointestinal: Reports abdominal pain, Denies nausea and Reports vomiting Endocrine Endocrine: Denies palpitations Physical Exam Vital Signs: Vital Signs: Last Vital Signs Temp 98.8 F 02/10/25 12:00 Pulse 96 02/10/25 12:00 Resp 20 02/10/25 12:00 BP 140/59 H 02/10/25 12:00 Pulse Ox 99 02/10/25 12:00 O2 Del Method Nasal Cannula 02/10/25 12:00 O2 Flow Rate 2 02/10/25 12:00 FiO2 26 01/25/25 05:00 BMI result Body Mass Index 26.8 Appearing in no acute distress lung sounds are clear to auscultation heart regular rate rhythm, clear S1, S2 positive bowel sounds, abdomen is soft, nontender neuro patient is alert x3, no focal deficits Objective Data Active Medications Acetaminophen (Acetaminophen 325 Mg Tablet) 975 mg PO Q6H [facility] Last Admin: 02/10/25 09:56 Dose: 975 mg Documented By: MICKEY Ascorbic Acid (Ascorbic Acid 250 Mg Tablet) 250 mg PO DAILY [facility] Last Admin: 02/10/25 09:55 Dose: Not Given Documented By: MICKEY Non-Admin Reason: NPO Atorvastatin Calcium (Atorvastatin Calcium 40 Mg Tablet) 40 mg PO BEDTIME [facility] Last Admin: 02/09/25 21:07 Dose: 40 mg Documented By: NIKKI Dextrose (Dextrose 50 % 25 Gm/50 Ml Syringe) 25 gm IVPUSH Q15M PRN; Protocol PRN Reason: per Hypoglycemia Standing Ord. Last Admin: 01/25/25 03:11 Dose: 25 gm Documented By: PRINCE Comments: per provider Folic Acid (Folic Acid 1 Mg Tablet) 1 mg PO DAILY [facility] Last Admin: 02/10/25 09:55 Dose: Not Given Documented By: MICKEY Non-Admin Reason: NPO Furosemide (Furosemide 20 Mg/2 Ml Vial) 20 mg IVPUSH BID@0900,1800 [facility]; Protocol Last Admin: 02/10/25 09:55 Dose: 20 mg Documented By: MICKEY Glucose (Glucose Gel 15 Gm Gel..Gram.) 15 gm PO Q15M PRN; Protocol PRN Reason: per Hypoglycemia Standing Ord. Last Admin: 02/05/25 08:03 Dose: 15 gm Documented By: BRANDEE Guaifenesin (Guaifenesin 200 Mg/10 Ml 10 Ml Liquid) 10 ml PO Q4H PRN PRN Reason: Cough Last Admin: 02/10/25 09:55 Dose: 10 ml Documented By: MICKEY Insulin Human Lispro (Insulin Lispro 100 Unit/Ml 3 Ml Vial) 0 unit SUBCUT QIDACHS [facility]; Protocol Last Admin: 02/10/25 09:54 Dose: Not Given Documented By: MICKEY Non-Admin Reason: No Insulin Coverage Melatonin (Melatonin 3 Mg Tablet) 6 mg PO BEDTIME PRN PRN Reason: Insomnia Last Admin: 02/02/25 22:48 Dose: 6 mg Documented By: DENISA Comments: requested for sleep Nystatin (Nystatin Powder 15 Gm Bottle) 1 appl TOPICAL TID [facility]; Protocol Last Admin: 02/10/25 09:56 Dose: 1 appl Documented By: MICKEY Ondansetron HCl (Ondansetron Hcl 4 Mg/2 Ml Vial) 4 mg IVPUSH Q8H PRN PRN Reason: Nausea and Vomiting Last Admin: 02/09/25 12:03 Dose: 4 mg Documented By: NIKKI Pantoprazole Sodium (Pantoprazole Sodium 40 Mg/10 Ml Vial) 40 mg IVPUSH BID@0630,1630 [facility] Last Admin: 02/10/25 05:47 Dose: 40 mg Documented By: TERESA Potassium Chloride (Potassium Chloride Packet 20 Meq Packet) 40 meq PO BID [facility] Last Admin: 02/10/25 09:56 Dose: Not Given Documented By: MICKEY Non-Admin Reason: NPO Sodium Chloride (0.9 % Sodium Chloride Flush 3 Ml Syringe) 3 ml IVFLUSH QSHIFT [facility] Last Admin: 02/10/25 09:55 Dose: 3 ml Documented By: MICKEY Thiamine HCl (Thiamine Hcl 100 Mg Tablet) 100 mg PO DAILY [facility] Last Admin: 02/10/25 09:56 Dose: Not Given Documented By: MICKEY Non-Admin Reason: NPO Zinc Sulfate (Zinc Sulfate 220 Mg Capsule) 220 mg PO DAILY [facility] Last Admin: 02/10/25 09:56 Dose: Not Given Documented By: MICKEY Non-Admin Reason: NPO Labs 02/10/25 06:34 02/10/25 06:33 Labs: Laboratory Results - last 24 hr 02/07/25 02/09/25 02/09/25 08:39 15:43 21:00 MCV MCH MCHC RDW Plt Count MPV Absolute Nucleated RBC Nucleated RBC % (auto) Anion Gap Estim Creat Clear Calc Estimated GFR POC Glucose 144 H 146 H Random Glucose Calcium Blood Type B Positive Antibody Screen NEGATIVE Crossmatch See Detail 02/10/25 02/10/25 02/10/25 06:33 06:34 07:58 MCV 85.0 MCH 29.1 MCHC 34.3 RDW 15.9 Plt Count 180 MPV 8.8 L Absolute Nucleated RBC 0.000 Nucleated RBC % (auto) 0.0 Anion Gap 10 L Estim Creat Clear Calc 91.5 Estimated GFR > 60 POC Glucose 114 Random Glucose 119 H Calcium 7.3 L Blood Type Antibody Screen Crossmatch 02/10/25 02/10/25 11:48 11:56 MCV MCH MCHC RDW Plt Count MPV Absolute Nucleated RBC Nucleated RBC % (auto) Anion Gap Estim Creat Clear Calc Estimated GFR POC Glucose 103 Random Glucose Calcium Blood Type B Positive Antibody Screen NEGATIVE Crossmatch Microbiology Microbiology Results: Microbiology 01/17/25 15:09 Fungal Identification - Preliminary Bronch Lll Pratibha albicans Assessment and Plan (1) Peripheral neuropathy: Status: Acute (2) Blood per rectum: Status: Acute (3) Pneumatosis of intestines: Status: Acute Plan 59F PMH diabetes mellitus, htn, hld, peripheral neuropathy, gerd, admitted with acute hypoxic respiratory failure with unclear etiology with progressive respiratory distress requiring intubation 01/16/2025. subsequently developed acute blood loss anemia secondary to lower GI bleed. Status post embolization on 01/22/2025. Extubated 01/24/2025. Downgraded to the medical floor 01/26. Also with noted encephalopathy and MRI from 01/20 c/w stroke now with recurrent rectal bleeding. Acute lower GI bleed with acute blood loss anemia and hemmorragic shock titrated off pressors in ICU Tagged red cell scan was positive on 01/21/2025 status post embolization on 01/22/2025, Successful embolization of active bleeding identified from branches of the inferior mesenteric artery supplying the proximal sigmoid colon. additional units given on 01/26 and 02/02/25 (4 total) recurrent rectal bleeding 02/07; repeat ct bleeding scan negative for active source of bleeding continues to have intermittent episodes of rectal bleeding but H/H has remained relatively stable plan for Flex Sig today right sided ischemic colitis surgery and gi following s/p course of zosyn Chronic diarrhea GI panel, C diff negative s/p course of Zosyn repeat imaging showing large amount of stool ?overflow diarrhea also with persistent colitis - no further antibiotics plan for flex sig as above b/l pleural effusions/anasarca no hypoxia will start gentle lasix Acute hypokalemia, acute hypomagnesemia Due to poor nutrition, decreased p.o. intake Continue scheduled potassium replacement IV magnesium Insulin-dependent type 2 diabetes with hypoglycemia lantus stopped continue Sliding-scale insulin Diabetic diet Hypoglycemia, d/t poor po intake Acute toxic metabolic Encephalopathy likely 2/2 acute stroke improving MRI brain with small acute right occipital infarct and stigmata of prior CVAs with moderate changes of small vessel ischemia and numerous old lacunar type infarcts in the anterior gangliocapsular regions and left thalamus. 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 suspected PNA on admission, completed abx extubated 01/24/2025 weaned off to RA Acute renal failure with metabolic acidosis resolved now with resp alkalosis Acute Hypernatremia resolved Hypotension Placed on Clonidine patch in ICU, DCd; BP improved since then patient tends to have orthostatic hypotension with supine hypertension mood disorder haldol and cogentin have been on hold d/w psych - ok to resume when able to take po UTI urine culture growing citrobacter s/p abx urinary retention failed voiding trial, replace cornejo Prophylaxis: Pneumatic compression reason for continued hospitalization: ongoing diarrhea, recurrent GI bleeding Quality Stroke Does the patient have a stroke diagnosis?: No VTE Prior VTE?: No VTE Risk Level:: Medical - moderate - high VTE Device Contraindication: N/A - Device Ordered VTE Drug Contraindication: N/A - Med Ordered
--- NOTE | 2025-02-10 13:14 | HO.ANESPROP2 ---
HPI - Anesthesia Eval Consult details Narrative: 59 yo F for flexible sigmoidoscopy s/p EGD 05/2022 with MAC PMFSH Active Problems Active Problems: All Active Problems Peripheral neuropathy (Acute) Blood per rectum (Acute) Pneumatosis of intestines (Acute) Acute hypokalemia (Acute) CVA (cerebral vascular accident) (Acute) Hemorrhagic shock (Acute) Acute blood loss anemia (Acute) GI bleed (Acute) Encephalopathy acute (Acute) Cardiogenic shock (Acute) Acute hypoxic respiratory failure (Acute) Dyspnea (Acute) Diarrhea (Acute) Orthostatic hypotension (Acute) Colitis (Acute) UTI (urinary tract infection) (Acute) Hyperkalemia (Acute) Chronic constipation (Acute) Poorly controlled diabetes mellitus (Acute) Smoker unmotivated to quit (Acute) Early satiety (Acute) Esophagitis (Acute) Diabetes (Acute) Odynophagia (Acute) Ear ache (Acute) Odynophagia (Acute) Nausea & vomiting (Acute) Depression (Acute) Heartburn (Acute) Past Medical History Medical History (Updated 02/08/25 @ 12:17 by Jasiel Arriaga MD) Blood per rectum Pneumatosis of intestines Dysphagia Anxiety disorder GERD (gastroesophageal reflux disease) Migraines Asthma On beta jordyn at home Elevated cholesterol HTN (hypertension) Smoker Diabetes Depression Heartburn Cognitive capacity: incomplete, hard to assess due to language barrier Functional capacity: bed bound Patient : No Family History Family history of problems with anesthesia: No Surgical History Surgical History Hx of left knee surgery History of tubal ligation History of esophagogastroduodenoscopy (EGD) H/O colonoscopy Hx of cholecystectomy History of Problems with Anesthesia: No Social History Social History Household Members: Children Household Members Other:: Daughter Housing: Apartment Housing Other:: pt states she lives in an apartment at her daughter's house Do you presently have visiting nurse or other home services: Yes (Daughter is [employer]) Alcohol intake: former Comment: 1:1 sitter Patient Tobacco Use Status: Never used Tobacco Tobacco use type: Cigarette Cigarette Packs Per Day: 1 Cigarettes Per Day: 20.0 Years Smoked: 15 Smoked in Last 30 Days: Yes e-Cigarette/Vaping Use: Never Used Second Hand Smoke Exposure: Yes Use of substances other than those prescribed or required for medical reasons: No Currently Displaying Signs/Symptoms of Drug Intoxication Withdrawal: No Have you been hit, kicked, punched, or otherwise hurt by someone within the past year? If so, by whom?: No Do you feel safe in your current relationship?: No Current Relationship Is there a partner from a previous relationship who is making you feel unsafe now?: No Are you made to feel afraid or neglected: No Are you DNR?: No Advance Directives: No Advance Directives Information Provided: Yes Do you have a plan to hurt others: No Plan Recently lost weight without trying: Unsure Eating poorly because of decreased appetite: Yes Nutrition Risks: Poor intake 0-25% >4 days Patient : No : No Poor oral hygiene: No service: No Current occupational status: [employer] Allergies Allergy/AdvReac Type Severity Reaction Status Date / Time iron Allergy Mild Difficulty Verified 01/15/25 16:21 Breathing Iodinated Contrast Media Allergy Unknown UNKNOWN Verified 01/15/25 16:21 [IV Dye, Iodine Containing] iodine [IODINE] Allergy Unknown RASH Verified 01/15/25 16:21 seafood Allergy Unknown Unknown Verified 01/15/25 16:21 Active Medications: Current Medications Acetaminophen (Acetaminophen 325 Mg Tablet) 975 mg PO Q6H [facility] Last Admin: 02/10/25 09:56 Dose: 975 mg Ascorbic Acid (Ascorbic Acid 250 Mg Tablet) 250 mg PO DAILY [facility] Last Admin: 02/10/25 09:55 Dose: Not Given Atorvastatin Calcium (Atorvastatin Calcium 40 Mg Tablet) 40 mg PO BEDTIME [facility] Last Admin: 02/09/25 21:07 Dose: 40 mg Dextrose (Dextrose 50 % 25 Gm/50 Ml Syringe) 25 gm IVPUSH Q15M PRN; Protocol PRN Reason: per Hypoglycemia Standing Ord. Last Admin: 01/25/25 03:11 Dose: 25 gm Folic Acid (Folic Acid 1 Mg Tablet) 1 mg PO DAILY [facility] Last Admin: 02/10/25 09:55 Dose: Not Given Furosemide (Furosemide 20 Mg/2 Ml Vial) 20 mg IVPUSH BID@0900,1800 [facility]; Protocol Last Admin: 02/10/25 09:55 Dose: 20 mg Glucose (Glucose Gel 15 Gm Gel..Gram.) 15 gm PO Q15M PRN; Protocol PRN Reason: per Hypoglycemia Standing Ord. Last Admin: 02/05/25 08:03 Dose: 15 gm Guaifenesin (Guaifenesin 200 Mg/10 Ml 10 Ml Liquid) 10 ml PO Q4H PRN PRN Reason: Cough Last Admin: 02/10/25 09:55 Dose: 10 ml Insulin Human Lispro (Insulin Lispro 100 Unit/Ml 3 Ml Vial) 0 unit SUBCUT QIDACHS [facility]; Protocol Last Admin: 02/10/25 09:54 Dose: Not Given Melatonin (Melatonin 3 Mg Tablet) 6 mg PO BEDTIME PRN PRN Reason: Insomnia Last Admin: 02/02/25 22:48 Dose: 6 mg Nystatin (Nystatin Powder 15 Gm Bottle) 1 appl TOPICAL TID [facility]; Protocol Last Admin: 02/10/25 09:56 Dose: 1 appl Ondansetron HCl (Ondansetron Hcl 4 Mg/2 Ml Vial) 4 mg IVPUSH Q8H PRN PRN Reason: Nausea and Vomiting Last Admin: 02/09/25 12:03 Dose: 4 mg Pantoprazole Sodium (Pantoprazole Sodium 40 Mg/10 Ml Vial) 40 mg IVPUSH BID@0630,1630 [facility] Last Admin: 02/10/25 05:47 Dose: 40 mg Potassium Chloride (Potassium Chloride Packet 20 Meq Packet) 40 meq PO BID [facility] Last Admin: 02/10/25 09:56 Dose: Not Given Sodium Chloride (0.9 % Sodium Chloride Flush 3 Ml Syringe) 3 ml IVFLUSH QSHIFT [facility] Last Admin: 02/10/25 09:55 Dose: 3 ml Thiamine HCl (Thiamine Hcl 100 Mg Tablet) 100 mg PO DAILY [facility] Last Admin: 02/10/25 09:56 Dose: Not Given Zinc Sulfate (Zinc Sulfate 220 Mg Capsule) 220 mg PO DAILY [facility] Last Admin: 02/10/25 09:56 Dose: Not Given Home Medications ?Medication ?Instructions ?Recorded ?Confirmed ?Last Taken ?Type aspirin 81 mg tablet,delayed 81 mg PO DAILY 04/21/22 01/15/25 01/15/25 History release benztropine 0.5 mg tablet 0.5 mg PO BID 04/21/22 01/15/25 01/07/25 History insulin syringe-needle U-100 0.5 #10 ea 04/21/22 12/26/24 Unknown History mL 30 gauge x 1/2 (UltiCare) haloperidol 5 mg tablet 1 tab PO BID 05/06/22 01/15/25 01/15/25 History gabapentin 100 mg capsule 100 mg PO BEDTIME 05/30/24 01/15/25 01/06/25 History insulin glargine 100 unit/mL (3 20 unit subcut BEDTIME 08/27/24 01/15/25 01/15/25 History mL) subcutaneous pen (Lantus Solostar U-100 Insulin) blood sugar diagnostic (FreeStyle #10 ea 12/04/24 12/26/24 Unknown History Lite Strips) lancets 33 gauge (TRUEplus Lancets) #100 ea 12/04/24 12/26/24 Unknown History pen needle, diabetic 31 gauge x #100 ea 12/04/24 12/26/24 Unknown History 1/4 (Easy Touch) esomeprazole magnesium 40 mg 40 mg PO DAILY@0630 12/30/24 01/15/25 01/07/25 History capsule,delayed release (Nexium) Exam Height,Weight and Vital Signs: Height 5 ft 3 in Weight 151 lb 7.321 oz Last Vital Signs Temp 98.8 F 02/10/25 12:00 Pulse 96 02/10/25 12:00 Resp 20 02/10/25 12:00 BP 140/59 H 02/10/25 12:00 Pulse Ox 99 02/10/25 12:00 O2 Del Method Nasal Cannula 02/10/25 12:00 O2 Flow Rate 2 02/10/25 12:00 FiO2 26 01/25/25 05:00 Pertinent Lab Results Pertinent Lab Results: Laboratory Tests 01/15/25 01/15/25 01/15/25 16:37 16:38 16:43 WBC 7.1 RBC 3.01 L Hgb 8.5 L Hct 24.6 L MCV 81.7 MCH 28.2 MCHC 34.6 RDW 16.6 H Plt Count 462 H D MPV 9.5 Immature Gran % (Auto) Cancelled Neut % (Auto) Cancelled Lymph % (Auto) Cancelled [place] % (Auto) Cancelled Eos % (Auto) Cancelled Baso % (Auto) Cancelled Lymph # (Auto) Cancelled [place] # (Auto) Cancelled Eos # (Auto) Cancelled Baso # (Auto) Cancelled Abs Immat Gran (auto) Cancelled Absolute Neuts (auto) Cancelled Absolute Nucleated RBC 0.000 Nucleated RBC % (auto) 0.0 Neutrophils % (Manual) 35 L Band Neutrophils % 46 H Lymphocytes % (Manual) 14 L Atypical Lymphs % (Man) Monocytes % (Manual) 2 Eosinophils % (Manual) Basophils % (Manual) Metamyelocytes % 3 Myelocytes % Abs Neuts (Manual) 5.8 Lymphocytes # (Manual) 1.0 L Atyp Lymphs # (Manual) Monocytes # (Manual) 0.1 Eosinophils # (Manual) Basophils # (Manual) Metamyelocytes # 0.2 Myelocytes # Nucleated RBCs Hypersegmented Neuts Smudge Cells Toxic Granulation Toxic Vacuolation PRESENT Dohle Bodies Platelet Estimate INCREASED Large Platelets Giant Platelets Plt Morphology Comment NORMAL RBC Morphology NOTED Polychromasia Hypochromasia Basophilic Stippling Microcytosis Macrocytosis Target Cells Tear Drop Cells Ovalocytes Stomatocytes Regulo Cells Acanthocytes (Spur) 3+ (>5) Schistocytes 1+ (0-2) Smear Path Review PT 22.4 H D INR 1.9 H APTT Fibrinogen O2 Saturation ABG pH at Pt Temp ABG pCO2 at Pt Temp ABG pO2 at Pt Temp ABG HCO3 ABG Base Excess (Actual) VBG pH 7.26 L VBG pCO2 35 VBG pO2 52 VBG HCO3 16 L VBG O2 Saturation 72.0 VBG Base Excess -9.7 Sodium 138 Potassium 3.6 Chloride 111 H Carbon Dioxide 16 L Anion Gap 15 BUN 25 H Creatinine 1.20 Estim Creat Clear Calc 44.0 Estimated GFR 46 POC Glucose Random Glucose 190 H Lactic Acid 2.6 H* Lactic Acid F/U @ 2Hr Calcium 7.5 L Phosphorus Magnesium 2.0 Total Bilirubin 0.5 Direct Bilirubin 0.3 AST 30 ALT < 6 Alkaline Phosphatase 136 H Lactate Dehydrogenase Troponin I High Sens < 2.7 D B-Natriuretic Peptide 444 H Total Protein 4.7 L Albumin 1.9 L Vitamin K1 Hold Yellow Top Urine Color Urine Appearance Urine pH Ur Specific [place] Urine Protein Urine Glucose (UA) Urine Ketones Urine Blood Urine Nitrite Ur Leukocyte Esterase Urine RBC Urine WBC Ur Squamous Epith Cells Urine Bacteria Hyaline Casts Bronchial Fluid WBC Bronchial Fluid RBC Bronchial Lymphocytes Bronchial Other Cells Stool Occult Blood Stl C. cayetanensis PCR Stool Rotavirus A PCR Stl Adenov F 40/41 PCR Stool Astrovirus (PCR) Stool Campylobacter PCR Stool Cryptosporidium PCR Stl Sh Tox Pr E STEC PCR Stool E coli O157 PCR Stl Enterotoxigenic E PCR Stool EPEC (PCR) Stool EAEC (PCR) Stl E. histolytica PCR Stool Giardia Lamblia PCR Stl P. shigelloides PCR Stool Salmonella PCR Stool Sapovirus (PCR) Stl Shigella/EIEC PCR St Y.enterocolitica PCR Stool Vibrio (PCR) Stl Vibrio cholerae PCR Stl Norovirus GI/GII PCR Random Vancomycin IgE Respiratory Panel Alexandra Adenovirus (Rapid PCR) B.pert (TEM-PCR) B.parapertussis DNA PCR C. pneumoniae DNA (PCR) C. difficile Tox B Gene Coronavirus OC43 (PCR) Coronavirus HKU1 (PCR) Coronavirus 229E (PCR) Coronavirus NL63 (PCR) CMV Specimen Source CMV Qnt PCR IU/mL CMV Qnt PCR log IU/mL Human Metapneumovir PCR Influenza A (RT-PCR) Influenza A (H1) PCR Influ A (H1/09) PCR Influenza A (H3) PCR Influenza Type A (PCR) NEGATIVE Influenza B (RT-PCR) Influenza Type B (PCR) NEGATIVE M. pneumoniae (PCR) Parainfluenza 1 (PCR) Parainfluenza 2 (PCR) Parainfluenza 3 (PCR) Parainfluenza 4 (PCR) Aspergillus Ag (EIA) Aspergillus Index Value RSV (PCR) RSV RNA Qual (PCR) NEGATIVE Entero/Rhino (PCR) SARS-CoV-2 RNA (RT-PCR) NEGATIVE Beta-(1,3)-D-Glucan B-(1,3)-D-Glucan Intrp Blood Type Antibody Screen Crossmatch 01/15/25 01/15/25 01/15/25 19:08 20:25 20:45 WBC 7.3 RBC 2.38 L D Hgb 6.9 L* Hct 19.3 L* D MCV 81.1 MCH 29.0 MCHC 35.8 H RDW 16.5 H Plt Count 409 H MPV 10.0 Immature Gran % (Auto) Cancelled Neut % (Auto) Cancelled Lymph % (Auto) Cancelled [place] % (Auto) Cancelled Eos % (Auto) Cancelled Baso % (Auto) Cancelled Lymph # (Auto) Cancelled [place] # (Auto) Cancelled Eos # (Auto) Cancelled Baso # (Auto) Cancelled Abs Immat Gran (auto) Cancelled Absolute Neuts (auto) Cancelled Absolute Nucleated RBC 0.000 Nucleated RBC % (auto) 0.0 Neutrophils % (Manual) 24 L Band Neutrophils % 56 H Lymphocytes % (Manual) 15 L Atypical Lymphs % (Man) Monocytes % (Manual) 1 L Eosinophils % (Manual) Basophils % (Manual) Metamyelocytes % 4 Myelocytes % Abs Neuts (Manual) 5.8 Lymphocytes # (Manual) 1.1 L Atyp Lymphs # (Manual) Monocytes # (Manual) 0.1 Eosinophils # (Manual) Basophils # (Manual) Metamyelocytes # 0.3 Myelocytes # Nucleated RBCs Hypersegmented Neuts Smudge Cells PRESENT Toxic Granulation Toxic Vacuolation PRESENT Dohle Bodies Platelet Estimate INCREASED Large Platelets Giant Platelets Plt Morphology Comment NORMAL RBC Morphology NOTED Polychromasia Hypochromasia Basophilic Stippling Microcytosis Macrocytosis Target Cells Tear Drop Cells Ovalocytes Stomatocytes [place] Cells Acanthocytes (Spur) 3+ (>5) Schistocytes 1+ (0-2) Smear Path Review SEE NOTE PT INR APTT Fibrinogen O2 Saturation ABG pH at Pt Temp ABG pCO2 at Pt Temp ABG pO2 at Pt Temp ABG HCO3 ABG Base Excess (Actual) VBG pH VBG pCO2 VBG pO2 VBG HCO3 VBG O2 Saturation VBG Base Excess Sodium 140 Potassium 3.7 Chloride 114 H Carbon Dioxide 15 L Anion Gap 15 BUN 23 H Creatinine 1.08 Estim Creat Clear Calc 48.9 Estimated GFR 52 POC Glucose 169 H Random Glucose 172 H Lactic Acid Lactic Acid F/U @ 2Hr 1.2 Calcium 7.2 L Phosphorus 3.3 Magnesium Total Bilirubin 0.6 Direct Bilirubin AST 31 ALT < 6 Alkaline Phosphatase 96 Lactate Dehydrogenase Troponin I High Sens B-Natriuretic Peptide Total Protein 4.5 L Albumin 2.3 L Vitamin K1 Hold Yellow Top Urine Color Urine Appearance Urine pH Ur Specific [place] Urine Protein Urine Glucose (UA) Urine Ketones Urine Blood Urine Nitrite Ur Leukocyte Esterase Urine RBC Urine WBC Ur Squamous Epith Cells Urine Bacteria Hyaline Casts Bronchial Fluid WBC Bronchial Fluid RBC Bronchial Lymphocytes Bronchial Other Cells Stool Occult Blood Stl C. cayetanensis PCR Stool Rotavirus A PCR Stl Adenov F 40/41 PCR Stool Astrovirus (PCR) Stool Campylobacter PCR Stool Cryptosporidium PCR Stl Sh Tox Pr E STEC PCR Stool E coli O157 PCR Stl Enterotoxigenic E PCR Stool EPEC (PCR) Stool EAEC (PCR) Stl E. histolytica PCR Stool Giardia Lamblia PCR Stl P. shigelloides PCR Stool Salmonella PCR Stool Sapovirus (PCR) Stl Shigella/EIEC PCR St Y.enterocolitica PCR Stool Vibrio (PCR) Stl Vibrio cholerae PCR Stl Norovirus GI/GII PCR Random Vancomycin IgE Respiratory Panel Alexandra Adenovirus (Rapid PCR) B.pert (TEM-PCR) B.parapertussis DNA PCR C. pneumoniae DNA (PCR) C. difficile Tox B Gene Coronavirus OC43 (PCR) Coronavirus HKU1 (PCR) Coronavirus 229E (PCR) Coronavirus NL63 (PCR) CMV Specimen Source CMV Qnt PCR IU/mL CMV Qnt PCR log IU/mL Human Metapneumovir PCR Influenza A (RT-PCR) Influenza A (H1) PCR Influ A (H1/09) PCR Influenza A (H3) PCR Influenza Type A (PCR) Influenza B (RT-PCR) Influenza Type B (PCR) M. pneumoniae (PCR) Parainfluenza 1 (PCR) Parainfluenza 2 (PCR) Parainfluenza 3 (PCR) Parainfluenza 4 (PCR) Aspergillus Ag (EIA) Aspergillus Index Value RSV (PCR) RSV RNA Qual (PCR) Entero/Rhino (PCR) SARS-CoV-2 RNA (RT-PCR) Beta-(1,3)-D-Glucan B-(1,3)-D-Glucan Intrp Blood Type Antibody Screen Crossmatch 01/15/25 01/15/25 01/15/25 20:50 21:07 21:23 WBC RBC Hgb Hct MCV MCH MCHC RDW Plt Count MPV Immature Gran % (Auto) Neut % (Auto) Lymph % (Auto) [place] % (Auto) Eos % (Auto) Baso % (Auto) Lymph # (Auto) [place] # (Auto) Eos # (Auto) Baso # (Auto) Abs Immat Gran (auto) Absolute Neuts (auto) Absolute Nucleated RBC Nucleated RBC % (auto) Neutrophils % (Manual) Band Neutrophils % Lymphocytes % (Manual) Atypical Lymphs % (Man) Monocytes % (Manual) Eosinophils % (Manual) Basophils % (Manual) Metamyelocytes % Myelocytes % Abs Neuts (Manual) Lymphocytes # (Manual) Atyp Lymphs # (Manual) Monocytes # (Manual) Eosinophils # (Manual) Basophils # (Manual) Metamyelocytes # Myelocytes # Nucleated RBCs Hypersegmented Neuts Smudge Cells Toxic Granulation Toxic Vacuolation Dohle Bodies Platelet Estimate Large Platelets Giant Platelets Plt Morphology Comment RBC Morphology Polychromasia Hypochromasia Basophilic Stippling Microcytosis Macrocytosis Target Cells Tear Drop Cells Ovalocytes Stomatocytes Regulo Cells Acanthocytes (Spur) Schistocytes Smear Path Review PT INR APTT Fibrinogen O2 Saturation ABG pH at Pt Temp ABG pCO2 at Pt Temp ABG pO2 at Pt Temp ABG HCO3 ABG Base Excess (Actual) VBG pH 7.38 VBG pCO2 27 VBG pO2 41 VBG HCO3 16 L VBG O2 Saturation 64.0 VBG Base Excess -7.3 Sodium Potassium Chloride Carbon Dioxide Anion Gap BUN Creatinine Estim Creat Clear Calc Estimated GFR POC Glucose Random Glucose Lactic Acid Lactic Acid F/U @ 2Hr Calcium Phosphorus Magnesium Total Bilirubin Direct Bilirubin AST ALT Alkaline Phosphatase Lactate Dehydrogenase Troponin I High Sens B-Natriuretic Peptide Total Protein Albumin Vitamin K1 Hold Yellow Top Urine Color Dark Yellow Urine Appearance Clear Urine pH 6.0 Ur Specific [place] 1.025 Urine Protein 30 (1+) H Urine Glucose (UA) 500 H Urine Ketones Trace Urine Blood Negative Urine Nitrite Negative Ur Leukocyte Esterase Trace H Urine RBC 0-2 Urine WBC 0-5 Ur Squamous Epith Cells 0-2 Urine Bacteria None Seen Hyaline Casts 3-5 Bronchial Fluid WBC Bronchial Fluid RBC Bronchial Lymphocytes Bronchial Other Cells Stool Occult Blood Stl C. cayetanensis PCR Stool Rotavirus A PCR Stl Adenov F 40/41 PCR Stool Astrovirus (PCR) Stool Campylobacter PCR Stool Cryptosporidium PCR Stl Sh Tox Pr E STEC PCR Stool E coli O157 PCR Stl Enterotoxigenic E PCR Stool EPEC (PCR) Stool EAEC (PCR) Stl E. histolytica PCR Stool Giardia Lamblia PCR Stl P. shigelloides PCR Stool Salmonella PCR Stool Sapovirus (PCR) Stl Shigella/EIEC PCR St Y.enterocolitica PCR Stool Vibrio (PCR) Stl Vibrio cholerae PCR Stl Norovirus GI/GII PCR Random Vancomycin IgE Respiratory Panel Alexandra Adenovirus (Rapid PCR) B.pert (TEM-PCR) B.parapertussis DNA PCR C. pneumoniae DNA (PCR) C. difficile Tox B Gene Coronavirus OC43 (PCR) Coronavirus HKU1 (PCR) Coronavirus 229E (PCR) Coronavirus NL63 (PCR) CMV Specimen Source CMV Qnt PCR IU/mL CMV Qnt PCR log IU/mL Human Metapneumovir PCR Influenza A (RT-PCR) Influenza A (H1) PCR Influ A (H1/09) PCR Influenza A (H3) PCR Influenza Type A (PCR) Influenza B (RT-PCR) Influenza Type B (PCR) M. pneumoniae (PCR) Parainfluenza 1 (PCR) Parainfluenza 2 (PCR) Parainfluenza 3 (PCR) Parainfluenza 4 (PCR) Aspergillus Ag (EIA) Aspergillus Index Value RSV (PCR) RSV RNA Qual (PCR) Entero/Rhino (PCR) SARS-CoV-2 RNA (RT-PCR) Beta-(1,3)-D-Glucan B-(1,3)-D-Glucan Intrp Blood Type B Positive Antibody Screen NEGATIVE Crossmatch See Detail 01/15/25 01/16/25 01/16/25 23:59 00:54 00:56 WBC RBC Hgb 6.6 L* Hct 18.7 L* MCV MCH MCHC RDW Plt Count MPV Immature Gran % (Auto) Neut % (Auto) Lymph % (Auto) [place] % (Auto) Eos % (Auto) Baso % (Auto) Lymph # (Auto) [place] # (Auto) Eos # (Auto) Baso # (Auto) Abs Immat Gran (auto) Absolute Neuts (auto) Absolute Nucleated RBC Nucleated RBC % (auto) Neutrophils % (Manual) Band Neutrophils % Lymphocytes % (Manual) Atypical Lymphs % (Man) Monocytes % (Manual) Eosinophils % (Manual) Basophils % (Manual) Metamyelocytes % Myelocytes % Abs Neuts (Manual) Lymphocytes # (Manual) Atyp Lymphs # (Manual) Monocytes # (Manual) Eosinophils # (Manual) Basophils # (Manual) Metamyelocytes # Myelocytes # Nucleated RBCs Hypersegmented Neuts Smudge Cells Toxic Granulation Toxic Vacuolation Dohle Bodies Platelet Estimate Large Platelets Giant Platelets Plt Morphology Comment RBC Morphology Polychromasia Hypochromasia Basophilic Stippling Microcytosis Macrocytosis Target Cells Tear Drop Cells Ovalocytes Stomatocytes Regulo Cells Acanthocytes (Spur) Schistocytes Smear Path Review PT INR APTT Fibrinogen O2 Saturation ABG pH at Pt Temp ABG pCO2 at Pt Temp ABG pO2 at Pt Temp ABG HCO3 ABG Base Excess (Actual) VBG pH 7.47 H VBG pCO2 24 VBG pO2 48 VBG HCO3 18 L VBG O2 Saturation 79.0 VBG Base Excess -4.2 Sodium 143 Potassium 3.6 Chloride 111 H Carbon Dioxide 18 L Anion Gap 18 BUN 23 H Creatinine 1.12 Estim Creat Clear Calc 53.1 Estimated GFR 49 POC Glucose 160 H Random Glucose 169 H Lactic Acid Lactic Acid F/U @ 2Hr Calcium 7.8 L D Phosphorus Magnesium Total Bilirubin 0.8 Direct Bilirubin AST 15 ALT < 6 Alkaline Phosphatase 90 Lactate Dehydrogenase 276 H Troponin I High Sens B-Natriuretic Peptide Total Protein 5.1 L Albumin 3.4 L Vitamin K1 Hold Yellow Top Urine Color Urine Appearance Urine pH Ur Specific [place] Urine Protein Urine Glucose (UA) Urine Ketones Urine Blood Urine Nitrite Ur Leukocyte Esterase Urine RBC Urine WBC Ur Squamous Epith Cells Urine Bacteria Hyaline Casts Bronchial Fluid WBC Bronchial Fluid RBC Bronchial Lymphocytes Bronchial Other Cells Stool Occult Blood Stl C. cayetanensis PCR Stool Rotavirus A PCR Stl Adenov F 40/41 PCR Stool Astrovirus (PCR) Stool Campylobacter PCR Stool Cryptosporidium PCR Stl Sh Tox Pr E STEC PCR Stool E coli O157 PCR Stl Enterotoxigenic E PCR Stool EPEC (PCR) Stool EAEC (PCR) Stl E. histolytica PCR Stool Giardia Lamblia PCR Stl P. shigelloides PCR Stool Salmonella PCR Stool Sapovirus (PCR) Stl Shigella/EIEC PCR St Y.enterocolitica PCR Stool Vibrio (PCR) Stl Vibrio cholerae PCR Stl Norovirus GI/GII PCR Random Vancomycin IgE Respiratory Panel Alexandra Adenovirus (Rapid PCR) B.pert (TEM-PCR) B.parapertussis DNA PCR C. pneumoniae DNA (PCR) C. difficile Tox B Gene Coronavirus OC43 (PCR) Coronavirus HKU1 (PCR) Coronavirus 229E (PCR) Coronavirus NL63 (PCR) CMV Specimen Source CMV Qnt PCR IU/mL CMV Qnt PCR log IU/mL Human Metapneumovir PCR Influenza A (RT-PCR) Influenza A (H1) PCR Influ A (H1/09) PCR Influenza A (H3) PCR Influenza Type A (PCR) Influenza B (RT-PCR) Influenza Type B (PCR) M. pneumoniae (PCR) Parainfluenza 1 (PCR) Parainfluenza 2 (PCR) Parainfluenza 3 (PCR) Parainfluenza 4 (PCR) Aspergillus Ag (EIA) Aspergillus Index Value RSV (PCR) RSV RNA Qual (PCR) Entero/Rhino (PCR) SARS-CoV-2 RNA (RT-PCR) Beta-(1,3)-D-Glucan B-(1,3)-D-Glucan Intrp Blood Type Antibody Screen Crossmatch 01/16/25 01/16/25 01/16/25 05:33 05:34 07:36 WBC 6.4 RBC 2.67 L Hgb 7.8 L Hct 22.1 L MCV 82.8 MCH 29.2 MCHC 35.3 H RDW 16.2 H Plt Count 319 MPV 9.3 L Immature Gran % (Auto) Cancelled Neut % (Auto) Cancelled Lymph % (Auto) Cancelled [place] % (Auto) Cancelled Eos % (Auto) Cancelled Baso % (Auto) Cancelled Lymph # (Auto) Cancelled [place] # (Auto) Cancelled Eos # (Auto) Cancelled Baso # (Auto) Cancelled Abs Immat Gran (auto) Cancelled Absolute Neuts (auto) Cancelled Absolute Nucleated RBC 0.000 Nucleated RBC % (auto) 0.0 Neutrophils % (Manual) 31 L Band Neutrophils % 41 H Lymphocytes % (Manual) 20 Atypical Lymphs % (Man) Monocytes % (Manual) 4 Eosinophils % (Manual) Basophils % (Manual) Metamyelocytes % 3 Myelocytes % 1 Abs Neuts (Manual) 4.6 Lymphocytes # (Manual) 1.3 Atyp Lymphs # (Manual) Monocytes # (Manual) 0.3 Eosinophils # (Manual) Basophils # (Manual) Metamyelocytes # 0.2 Myelocytes # 0.1 Nucleated RBCs Hypersegmented Neuts Smudge Cells Toxic Granulation Toxic Vacuolation PRESENT Dohle Bodies Platelet Estimate NORMAL Large Platelets Giant Platelets Plt Morphology Comment NORMAL RBC Morphology NOTED Polychromasia Hypochromasia 1+ (5-14) Basophilic Stippling Microcytosis Macrocytosis Target Cells 1+ (5-14) Tear Drop Cells Ovalocytes 1+ (5-14) Stomatocytes Regulo Cells 2+ (3-5) Acanthocytes (Spur) 1+ (0-2) Schistocytes 1+ (0-2) Smear Path Review PT 26.2 H INR 2.2 H APTT Fibrinogen O2 Saturation ABG pH at Pt Temp ABG pCO2 at Pt Temp ABG pO2 at Pt Temp ABG HCO3 ABG Base Excess (Actual) VBG pH 7.32 VBG pCO2 40 VBG pO2 63 VBG HCO3 21 L VBG O2 Saturation 89.0 VBG Base Excess -4.4 Sodium 143 Potassium 3.5 Chloride 111 H Carbon Dioxide 21 L Anion Gap 15 BUN 23 H Creatinine 1.24 Estim Creat Clear Calc 48.0 Estimated GFR 44 POC Glucose Random Glucose 174 H Lactic Acid Lactic Acid F/U @ 2Hr Calcium 7.7 L Phosphorus 4.0 Magnesium 2.0 Total Bilirubin 0.8 Direct Bilirubin AST 25 ALT < 6 Alkaline Phosphatase 89 Lactate Dehydrogenase Troponin I High Sens B-Natriuretic Peptide Total Protein 5.3 L Albumin 3.6 Vitamin K1 Cancelled Hold Yellow Top Urine Color Urine Appearance Urine pH Ur Specific [place] Urine Protein Urine Glucose (UA) Urine Ketones Urine Blood Urine Nitrite Ur Leukocyte Esterase Urine RBC Urine WBC Ur Squamous Epith Cells Urine Bacteria Hyaline Casts Bronchial Fluid WBC Bronchial Fluid RBC Bronchial Lymphocytes Bronchial Other Cells Stool Occult Blood POSITIVE Stl C. cayetanensis PCR Stool Rotavirus A PCR Stl Adenov F 40/41 PCR Stool Astrovirus (PCR) Stool Campylobacter PCR Stool Cryptosporidium PCR Stl Sh Tox Pr E STEC PCR Stool E coli O157 PCR Stl Enterotoxigenic E PCR Stool EPEC (PCR) Stool EAEC (PCR) Stl E. histolytica PCR Stool Giardia Lamblia PCR Stl P. shigelloides PCR Stool Salmonella PCR Stool Sapovirus (PCR) Stl Shigella/EIEC PCR St Y.enterocolitica PCR Stool Vibrio (PCR) Stl Vibrio cholerae PCR Stl Norovirus GI/GII PCR Random Vancomycin IgE Respiratory Panel Alexandra Adenovirus (Rapid PCR) B.pert (TEM-PCR) B.parapertussis DNA PCR C. pneumoniae DNA (PCR) C. difficile Tox B Gene Coronavirus OC43 (PCR) Coronavirus HKU1 (PCR) Coronavirus 229E (PCR) Coronavirus NL63 (PCR) CMV Specimen Source CMV Qnt PCR IU/mL CMV Qnt PCR log IU/mL Human Metapneumovir PCR Influenza A (RT-PCR) Influenza A (H1) PCR Influ A (H1/09) PCR Influenza A (H3) PCR Influenza Type A (PCR) Influenza B (RT-PCR) Influenza Type B (PCR) M. pneumoniae (PCR) Parainfluenza 1 (PCR) Parainfluenza 2 (PCR) Parainfluenza 3 (PCR) Parainfluenza 4 (PCR) Aspergillus Ag (EIA) Aspergillus Index Value RSV (PCR) RSV RNA Qual (PCR) Entero/Rhino (PCR) SARS-CoV-2 RNA (RT-PCR) Beta-(1,3)-D-Glucan B-(1,3)-D-Glucan Intrp Blood Type Antibody Screen Crossmatch 01/16/25 01/16/25 01/16/25 08:46 09:22 11:20 WBC RBC Hgb Hct MCV MCH MCHC RDW Plt Count MPV Immature Gran % (Auto) Neut % (Auto) Lymph % (Auto) [place] % (Auto) Eos % (Auto) Baso % (Auto) Lymph # (Auto) [place] # (Auto) Eos # (Auto) Baso # (Auto) Abs Immat Gran (auto) Absolute Neuts (auto) Absolute Nucleated RBC Nucleated RBC % (auto) Neutrophils % (Manual) Band Neutrophils % Lymphocytes % (Manual) Atypical Lymphs % (Man) Monocytes % (Manual) Eosinophils % (Manual) Basophils % (Manual) Metamyelocytes % Myelocytes % Abs Neuts (Manual) Lymphocytes # (Manual) Atyp Lymphs # (Manual) Monocytes # (Manual) Eosinophils # (Manual) Basophils # (Manual) Metamyelocytes # Myelocytes # Nucleated RBCs Hypersegmented Neuts Smudge Cells Toxic Granulation Toxic Vacuolation Dohle Bodies Platelet Estimate Large Platelets Giant Platelets Plt Morphology Comment RBC Morphology Polychromasia Hypochromasia Basophilic Stippling Microcytosis Macrocytosis Target Cells Tear Drop Cells Ovalocytes Stomatocytes Regulo Cells Acanthocytes (Spur) Schistocytes Smear Path Review PT INR APTT Fibrinogen 311 O2 Saturation ABG pH at Pt Temp ABG pCO2 at Pt Temp ABG pO2 at Pt Temp ABG HCO3 ABG Base Excess (Actual) VBG pH VBG pCO2 VBG pO2 VBG HCO3 VBG O2 Saturation VBG Base Excess Sodium Potassium Chloride Carbon Dioxide Anion Gap BUN Creatinine Estim Creat Clear Calc Estimated GFR POC Glucose 150 H Random Glucose Lactic Acid 0.8 Lactic Acid F/U @ 2Hr Calcium Phosphorus Magnesium Total Bilirubin Direct Bilirubin AST ALT Alkaline Phosphatase Lactate Dehydrogenase Troponin I High Sens B-Natriuretic Peptide Total Protein Albumin Vitamin K1 Hold Yellow Top Urine Color Urine Appearance Urine pH Ur Specific [place] Urine Protein Urine Glucose (UA) Urine Ketones Urine Blood Urine Nitrite Ur Leukocyte Esterase Urine RBC Urine WBC Ur Squamous Epith Cells Urine Bacteria Hyaline Casts Bronchial Fluid WBC Bronchial Fluid RBC Bronchial Lymphocytes Bronchial Other Cells Stool Occult Blood Stl C. cayetanensis PCR Stool Rotavirus A PCR Stl Adenov F 40/41 PCR Stool Astrovirus (PCR) Stool Campylobacter PCR Stool Cryptosporidium PCR Stl Sh Tox Pr E STEC PCR Stool E coli O157 PCR Stl Enterotoxigenic E PCR Stool EPEC (PCR) Stool EAEC (PCR) Stl E. histolytica PCR Stool Giardia Lamblia PCR Stl P. shigelloides PCR Stool Salmonella PCR Stool Sapovirus (PCR) Stl Shigella/EIEC PCR St Y.enterocolitica PCR Stool Vibrio (PCR) Stl Vibrio cholerae PCR Stl Norovirus GI/GII PCR Random Vancomycin IgE Respiratory Panel Alexandra See Note Adenovirus (Rapid PCR) Not Detected B.pert (TEM-PCR) Not Detected B.parapertussis DNA PCR Not Detected C. pneumoniae DNA (PCR) Not Detected C. difficile Tox B Gene Coronavirus OC43 (PCR) Not Detected Coronavirus HKU1 (PCR) Not Detected Coronavirus 229E (PCR) Not Detected Coronavirus NL63 (PCR) Not Detected CMV Specimen Source CMV Qnt PCR IU/mL CMV Qnt PCR log IU/mL Human Metapneumovir PCR Not Detected Influenza A (RT-PCR) Not Detected Influenza A (H1) PCR Not Detected Influ A (H1/09) PCR Not Detected Influenza A (H3) PCR Not Detected Influenza Type A (PCR) Influenza B (RT-PCR) Not Detected Influenza Type B (PCR) M. pneumoniae (PCR) Not Detected Parainfluenza 1 (PCR) Not Detected Parainfluenza 2 (PCR) Not Detected Parainfluenza 3 (PCR) Not Detected Parainfluenza 4 (PCR) Not Detected Aspergillus Ag (EIA) Aspergillus Index Value RSV (PCR) Not Detected RSV RNA Qual (PCR) Entero/Rhino (PCR) Not Detected SARS-CoV-2 RNA (RT-PCR) Not Detected Beta-(1,3)-D-Glucan 67 H B-(1,3)-D-Glucan Intrp Indeterminate A Blood Type Antibody Screen Crossmatch 01/16/25 01/16/25 01/16/25 14:21 17:22 20:16 WBC 7.2 7.1 RBC 3.42 L D 3.35 L Hgb 10.2 L D 10.0 L Hct 29.0 L D 29.0 L MCV 84.8 86.6 MCH 29.8 29.9 MCHC 35.2 H 34.5 RDW 17.3 H 17.4 H Plt Count 349 302 MPV 9.8 9.7 Immature Gran % (Auto) Cancelled Neut % (Auto) Cancelled Lymph % (Auto) Cancelled [place] % (Auto) Cancelled Eos % (Auto) Cancelled Baso % (Auto) Cancelled Lymph # (Auto) Cancelled [place] # (Auto) Cancelled Eos # (Auto) Cancelled Baso # (Auto) Cancelled Abs Immat Gran (auto) Cancelled Absolute Neuts (auto) Cancelled Absolute Nucleated RBC 0.000 0.000 Nucleated RBC % (auto) 0.0 0.0 Neutrophils % (Manual) 63 Band Neutrophils % 14 H Lymphocytes % (Manual) 15 L Atypical Lymphs % (Man) 2 Monocytes % (Manual) 6 Eosinophils % (Manual) Basophils % (Manual) Metamyelocytes % Myelocytes % Abs Neuts (Manual) 5.5 Lymphocytes # (Manual) 1.1 L Atyp Lymphs # (Manual) 0.1 Monocytes # (Manual) 0.4 Eosinophils # (Manual) Basophils # (Manual) Metamyelocytes # Myelocytes # Nucleated RBCs Hypersegmented Neuts Smudge Cells Toxic Granulation Toxic Vacuolation PRESENT Dohle Bodies PRESENT Platelet Estimate NORMAL Large Platelets Giant Platelets Plt Morphology Comment NORMAL RBC Morphology NOTED Polychromasia 1+ (0-2) Hypochromasia Basophilic Stippling Microcytosis Macrocytosis Target Cells 1+ (5-14) Tear Drop Cells Ovalocytes 1+ (5-14) Stomatocytes Tilly Cells 2+ (3-5) Acanthocytes (Spur) 1+ (0-2) Schistocytes Smear Path Review PT INR APTT Fibrinogen O2 Saturation ABG pH at Pt Temp ABG pCO2 at Pt Temp ABG pO2 at Pt Temp ABG HCO3 ABG Base Excess (Actual) VBG pH VBG pCO2 VBG pO2 VBG HCO3 VBG O2 Saturation VBG Base Excess Sodium 147 H Potassium 3.2 L Chloride 111 H Carbon Dioxide 25 Anion Gap 14 BUN 20 H Creatinine 1.26 Estim Creat Clear Calc 47.3 Estimated GFR 43 POC Glucose 160 H Random Glucose 129 H Lactic Acid Lactic Acid F/U @ 2Hr Calcium 7.9 L Phosphorus 3.5 Magnesium 1.9 Total Bilirubin 0.6 Direct Bilirubin AST 16 ALT < 6 Alkaline Phosphatase 119 H Lactate Dehydrogenase Troponin I High Sens B-Natriuretic Peptide Total Protein 4.9 L Albumin 3.0 L Vitamin K1 Hold Yellow Top Urine Color Urine Appearance Urine pH Ur Specific [place] Urine Protein Urine Glucose (UA) Urine Ketones Urine Blood Urine Nitrite Ur Leukocyte Esterase Urine RBC Urine WBC Ur Squamous Epith Cells Urine Bacteria Hyaline Casts Bronchial Fluid WBC Bronchial Fluid RBC Bronchial Lymphocytes Bronchial Other Cells Stool Occult Blood Stl C. cayetanensis PCR Stool Rotavirus A PCR Stl Adenov F 40/41 PCR Stool Astrovirus (PCR) Stool Campylobacter PCR Stool Cryptosporidium PCR Stl Sh Tox Pr E STEC PCR Stool E coli O157 PCR Stl Enterotoxigenic E PCR Stool EPEC (PCR) Stool EAEC (PCR) Stl E. histolytica PCR Stool Giardia Lamblia PCR Stl P. shigelloides PCR Stool Salmonella PCR Stool Sapovirus (PCR) Stl Shigella/EIEC PCR St Y.enterocolitica PCR Stool Vibrio (PCR) Stl Vibrio cholerae PCR Stl Norovirus GI/GII PCR Random Vancomycin IgE Respiratory Panel Alexandra Adenovirus (Rapid PCR) B.pert (TEM-PCR) B.parapertussis DNA PCR C. pneumoniae DNA (PCR) C. difficile Tox B Gene Coronavirus OC43 (PCR) Coronavirus HKU1 (PCR) Coronavirus 229E (PCR) Coronavirus NL63 (PCR) CMV Specimen Source CMV Qnt PCR IU/mL CMV Qnt PCR log IU/mL Human Metapneumovir PCR Influenza A (RT-PCR) Influenza A (H1) PCR Influ A (H1/09) PCR Influenza A (H3) PCR Influenza Type A (PCR) Influenza B (RT-PCR) Influenza Type B (PCR) M. pneumoniae (PCR) Parainfluenza 1 (PCR) Parainfluenza 2 (PCR) Parainfluenza 3 (PCR) Parainfluenza 4 (PCR) Aspergillus Ag (EIA) Aspergillus Index Value RSV (PCR) RSV RNA Qual (PCR) Entero/Rhino (PCR) SARS-CoV-2 RNA (RT-PCR) Beta-(1,3)-D-Glucan B-(1,3)-D-Glucan Intrp Blood Type Antibody Screen Crossmatch 01/16/25 01/17/25 01/17/25 23:56 04:23 04:25 WBC RBC Hgb Hct MCV MCH MCHC RDW Plt Count MPV Immature Gran % (Auto) Neut % (Auto) Lymph % (Auto) [place] % (Auto) Eos % (Auto) Baso % (Auto) Lymph # (Auto) [place] # (Auto) Eos # (Auto) Baso # (Auto) Abs Immat Gran (auto) Absolute Neuts (auto) Absolute Nucleated RBC Nucleated RBC % (auto) Neutrophils % (Manual) Band Neutrophils % Lymphocytes % (Manual) Atypical Lymphs % (Man) Monocytes % (Manual) Eosinophils % (Manual) Basophils % (Manual) Metamyelocytes % Myelocytes % Abs Neuts (Manual) Lymphocytes # (Manual) Atyp Lymphs # (Manual) Monocytes # (Manual) Eosinophils # (Manual) Basophils # (Manual) Metamyelocytes # Myelocytes # Nucleated RBCs Hypersegmented Neuts Smudge Cells Toxic Granulation Toxic Vacuolation Dohle Bodies Platelet Estimate Large Platelets Giant Platelets Plt Morphology Comment RBC Morphology Polychromasia Hypochromasia Basophilic Stippling Microcytosis Macrocytosis Target Cells Tear Drop Cells Ovalocytes Stomatocytes Regulo Cells Acanthocytes (Spur) Schistocytes Smear Path Review PT INR APTT Fibrinogen O2 Saturation ABG pH at Pt Temp ABG pCO2 at Pt Temp ABG pO2 at Pt Temp ABG HCO3 ABG Base Excess (Actual) VBG pH 7.47 H VBG pCO2 36 VBG pO2 96 VBG HCO3 26 VBG O2 Saturation 99.0 VBG Base Excess 3.4 Sodium 146 H Potassium 4.1 D Chloride 110 H Carbon Dioxide 23 Anion Gap 17 BUN 19 H Creatinine 1.47 H Estim Creat Clear Calc 40.5 Estimated GFR 36 POC Glucose 125 H Random Glucose 118 H Lactic Acid Lactic Acid F/U @ 2Hr Calcium 8.1 L Phosphorus 3.4 Magnesium 1.8 Total Bilirubin 0.7 Direct Bilirubin AST 20 ALT < 6 Alkaline Phosphatase 125 H Lactate Dehydrogenase Troponin I High Sens B-Natriuretic Peptide Total Protein 5.3 L Albumin 3.4 L Vitamin K1 Hold Yellow Top Urine Color Urine Appearance Urine pH Ur Specific [place] Urine Protein Urine Glucose (UA) Urine Ketones Urine Blood Urine Nitrite Ur Leukocyte Esterase Urine RBC Urine WBC Ur Squamous Epith Cells Urine Bacteria Hyaline Casts Bronchial Fluid WBC Bronchial Fluid RBC Bronchial Lymphocytes Bronchial Other Cells Stool Occult Blood Stl C. cayetanensis PCR Stool Rotavirus A PCR Stl Adenov F 40/41 PCR Stool Astrovirus (PCR) Stool Campylobacter PCR Stool Cryptosporidium PCR Stl Sh Tox Pr E STEC PCR Stool E coli O157 PCR Stl Enterotoxigenic E PCR Stool EPEC (PCR) Stool EAEC (PCR) Stl E. histolytica PCR Stool Giardia Lamblia PCR Stl P. shigelloides PCR Stool Salmonella PCR Stool Sapovirus (PCR) Stl Shigella/EIEC PCR St Y.enterocolitica PCR Stool Vibrio (PCR) Stl Vibrio cholerae PCR Stl Norovirus GI/GII PCR Random Vancomycin IgE Respiratory Panel Alexandra Adenovirus (Rapid PCR) B.pert (TEM-PCR) B.parapertussis DNA PCR C. pneumoniae DNA (PCR) C. difficile Tox B Gene Coronavirus OC43 (PCR) Coronavirus HKU1 (PCR) Coronavirus 229E (PCR) Coronavirus NL63 (PCR) CMV Specimen Source CMV Qnt PCR IU/mL CMV Qnt PCR log IU/mL Human Metapneumovir PCR Influenza A (RT-PCR) Influenza A (H1) PCR Influ A (H1) PCR Influenza A (H3) PCR Influenza Type A (PCR) Influenza B (RT-PCR) Influenza Type B (PCR) M. pneumoniae (PCR) Parainfluenza 1 (PCR) Parainfluenza 2 (PCR) Parainfluenza 3 (PCR) Parainfluenza 4 (PCR) Aspergillus Ag (EIA) Aspergillus Index Value RSV (PCR) RSV RNA Qual (PCR) Entero/Rhino (PCR) SARS-CoV-2 RNA (RT-PCR) Beta-(1,3)-D-Glucan B-(1,3)-D-Glucan Intrp Blood Type Antibody Screen Crossmatch 01/17/25 01/17/25 01/17/25 08:35 11:14 15:09 WBC 8.8 RBC 3.02 L Hgb 9.1 L Hct 26.4 L MCV 87.4 MCH 30.1 MCHC 34.5 RDW 17.4 H Plt Count 266 MPV 10.0 Immature Gran % (Auto) Cancelled Neut % (Auto) Cancelled Lymph % (Auto) Cancelled [place] % (Auto) Cancelled Eos % (Auto) Cancelled Baso % (Auto) Cancelled Lymph # (Auto) Cancelled [place] # (Auto) Cancelled Eos # (Auto) Cancelled Baso # (Auto) Cancelled Abs Immat Gran (auto) Cancelled Absolute Neuts (auto) Cancelled Absolute Nucleated RBC 0.000 Nucleated RBC % (auto) 0.0 Neutrophils % (Manual) 46 Band Neutrophils % 22 H Lymphocytes % (Manual) 27 Atypical Lymphs % (Man) Monocytes % (Manual) 3 Eosinophils % (Manual) 1 Basophils % (Manual) Metamyelocytes % 1 Myelocytes % Abs Neuts (Manual) 6.0 Lymphocytes # (Manual) 2.4 Atyp Lymphs # (Manual) Monocytes # (Manual) 0.3 Eosinophils # (Manual) 0.1 Basophils # (Manual) Metamyelocytes # 0.1 Myelocytes # Nucleated RBCs Hypersegmented Neuts Smudge Cells Toxic Granulation Toxic Vacuolation Dohle Bodies PRESENT Platelet Estimate NORMAL Large Platelets Giant Platelets Plt Morphology Comment NORMAL RBC Morphology NOTED Polychromasia Hypochromasia Basophilic Stippling Microcytosis Macrocytosis Target Cells 1+ (5-14) Tear Drop Cells Ovalocytes 1+ (5-14) Stomatocytes Regulo Cells 1+ (0-2) Acanthocytes (Spur) Schistocytes 1+ (0-2) Smear Path Review PT INR APTT Fibrinogen O2 Saturation ABG pH at Pt Temp ABG pCO2 at Pt Temp ABG pO2 at Pt Temp ABG HCO3 ABG Base Excess (Actual) VBG pH VBG pCO2 VBG pO2 VBG HCO3 VBG O2 Saturation VBG Base Excess Sodium Potassium Chloride Carbon Dioxide Anion Gap BUN Creatinine Estim Creat Clear Calc Estimated GFR POC Glucose 121 H Random Glucose Lactic Acid Lactic Acid F/U @ 2Hr Calcium Phosphorus Magnesium Total Bilirubin Direct Bilirubin AST ALT Alkaline Phosphatase Lactate Dehydrogenase Troponin I High Sens B-Natriuretic Peptide Total Protein Albumin Vitamin K1 Hold Yellow Top Urine Color Urine Appearance Urine pH Ur Specific [place] Urine Protein Urine Glucose (UA) Urine Ketones Urine Blood Urine Nitrite Ur Leukocyte Esterase Urine RBC Urine WBC Ur Squamous Epith Cells Urine Bacteria Hyaline Casts Bronchial Fluid WBC 5 Bronchial Fluid RBC Bronchial Lymphocytes Bronchial Other Cells Stool Occult Blood Stl C. cayetanensis PCR Stool Rotavirus A PCR Stl Adenov F 40/41 PCR Stool Astrovirus (PCR) Stool Campylobacter PCR Stool Cryptosporidium PCR Stl Sh Tox Pr E STEC PCR Stool E coli O157 PCR Stl Enterotoxigenic E PCR Stool EPEC (PCR) Stool EAEC (PCR) Stl E. histolytica PCR Stool Giardia Lamblia PCR Stl P. shigelloides PCR Stool Salmonella PCR Stool Sapovirus (PCR) Stl Shigella/EIEC PCR St Y.enterocolitica PCR Stool Vibrio (PCR) Stl Vibrio cholerae PCR Stl Norovirus GI/GII PCR Random Vancomycin IgE Respiratory Panel Alexandra Adenovirus (Rapid PCR) B.pert (TEM-PCR) B.parapertussis DNA PCR C. pneumoniae DNA (PCR) C. difficile Tox B Gene Coronavirus OC43 (PCR) Coronavirus HKU1 (PCR) Coronavirus 229E (PCR) Coronavirus NL63 (PCR) CMV Specimen Source CMV Qnt PCR IU/mL CMV Qnt PCR log IU/mL Human Metapneumovir PCR Influenza A (RT-PCR) Influenza A (H1) PCR Influ A (H1/) PCR Influenza A (H3) PCR Influenza Type A (PCR) Influenza B (RT-PCR) Influenza Type B (PCR) M. pneumoniae (PCR) Parainfluenza 1 (PCR) Parainfluenza 2 (PCR) Parainfluenza 3 (PCR) Parainfluenza 4 (PCR) Aspergillus Ag (EIA) Aspergillus Index Value RSV (PCR) RSV RNA Qual (PCR) Entero/Rhino (PCR) SARS-CoV-2 RNA (RT-PCR) Beta-(1,3)-D-Glucan B-(1,3)-D-Glucan Intrp Blood Type Antibody Screen Crossmatch 01/17/25 01/17/25 01/17/25 15:09 15:09 15:09 WBC RBC Hgb Hct MCV MCH MCHC RDW Plt Count MPV Immature Gran % (Auto) Neut % (Auto) Lymph % (Auto) [place] % (Auto) Eos % (Auto) Baso % (Auto) Lymph # (Auto) [place] # (Auto) Eos # (Auto) Baso # (Auto) Abs Immat Gran (auto) Absolute Neuts (auto) Absolute Nucleated RBC Nucleated RBC % (auto) Neutrophils % (Manual) Band Neutrophils % Lymphocytes % (Manual) Atypical Lymphs % (Man) Monocytes % (Manual) Eosinophils % (Manual) Basophils % (Manual) Metamyelocytes % Myelocytes % Abs Neuts (Manual) Lymphocytes # (Manual) Atyp Lymphs # (Manual) Monocytes # (Manual) Eosinophils # (Manual) Basophils # (Manual) Metamyelocytes # Myelocytes # Nucleated RBCs Hypersegmented Neuts Smudge Cells Toxic Granulation Toxic Vacuolation Dohle Bodies Platelet Estimate Large Platelets Giant Platelets Plt Morphology Comment RBC Morphology Polychromasia Hypochromasia Basophilic Stippling Microcytosis Macrocytosis Target Cells Tear Drop Cells Ovalocytes Stomatocytes Regulo Cells Acanthocytes (Spur) Schistocytes Smear Path Review PT INR APTT Fibrinogen O2 Saturation ABG pH at Pt Temp ABG pCO2 at Pt Temp ABG pO2 at Pt Temp ABG HCO3 ABG Base Excess (Actual) VBG pH VBG pCO2 VBG pO2 VBG HCO3 VBG O2 Saturation VBG Base Excess Sodium Potassium Chloride Carbon Dioxide Anion Gap BUN Creatinine Estim Creat Clear Calc Estimated GFR POC Glucose Random Glucose Lactic Acid Lactic Acid F/U @ 2Hr Calcium Phosphorus Magnesium Total Bilirubin Direct Bilirubin AST ALT Alkaline Phosphatase Lactate Dehydrogenase Troponin I High Sens B-Natriuretic Peptide Total Protein Albumin Vitamin K1 Hold Yellow Top Urine Color Urine Appearance Urine pH Ur Specific [place] Urine Protein Urine Glucose (UA) Urine Ketones Urine Blood Urine Nitrite Ur Leukocyte Esterase Urine RBC Urine WBC Ur Squamous Epith Cells Urine Bacteria Hyaline Casts Bronchial Fluid WBC 11 Bronchial Fluid RBC 6 3 Bronchial Lymphocytes 84 94 Bronchial Other Cells 16 Stool Occult Blood Stl C. cayetanensis PCR Stool Rotavirus A PCR Stl Adenov F 40/41 PCR Stool Astrovirus (PCR) Stool Campylobacter PCR Stool Cryptosporidium PCR Stl Sh Tox Pr E STEC PCR Stool E coli O157 PCR Stl Enterotoxigenic E PCR Stool EPEC (PCR) Stool EAEC (PCR) Stl E. histolytica PCR Stool Giardia Lamblia PCR Stl P. shigelloides PCR Stool Salmonella PCR Stool Sapovirus (PCR) Stl Shigella/EIEC PCR St Y.enterocolitica PCR Stool Vibrio (PCR) Stl Vibrio cholerae PCR Stl Norovirus GI/GII PCR Random Vancomycin IgE Respiratory Panel Alexandra Adenovirus (Rapid PCR) B.pert (TEM-PCR) B.parapertussis DNA PCR C. pneumoniae DNA (PCR) C. difficile Tox B Gene Coronavirus OC43 (PCR) Coronavirus HKU1 (PCR) Coronavirus 229E (PCR) Coronavirus NL63 (PCR) CMV Specimen Source CMV Qnt PCR IU/mL CMV Qnt PCR log IU/mL Human Metapneumovir PCR Influenza A (RT-PCR) Influenza A (H1) PCR Influ A (H1/09) PCR Influenza A (H3) PCR Influenza Type A (PCR) Influenza B (RT-PCR) Influenza Type B (PCR) M. pneumoniae (PCR) Parainfluenza 1 (PCR) Parainfluenza 2 (PCR) Parainfluenza 3 (PCR) Parainfluenza 4 (PCR) Aspergillus Ag (EIA) Aspergillus Index Value RSV (PCR) RSV RNA Qual (PCR) Entero/Rhino (PCR) SARS-CoV-2 RNA (RT-PCR) Beta-(1,3)-D-Glucan B-(1,3)-D-Glucan Intrp Blood Type Antibody Screen Crossmatch 01/17/25 01/17/25 01/17/25 15:09 16:57 17:23 WBC RBC Hgb Hct MCV MCH MCHC RDW Plt Count MPV Immature Gran % (Auto) Neut % (Auto) Lymph % (Auto) [place] % (Auto) Eos % (Auto) Baso % (Auto) Lymph # (Auto) [place] # (Auto) Eos # (Auto) Baso # (Auto) Abs Immat Gran (auto) Absolute Neuts (auto) Absolute Nucleated RBC Nucleated RBC % (auto) Neutrophils % (Manual) Band Neutrophils % Lymphocytes % (Manual) Atypical Lymphs % (Man) Monocytes % (Manual) Eosinophils % (Manual) Basophils % (Manual) Metamyelocytes % Myelocytes % Abs Neuts (Manual) Lymphocytes # (Manual) Atyp Lymphs # (Manual) Monocytes # (Manual) Eosinophils # (Manual) Basophils # (Manual) Metamyelocytes # Myelocytes # Nucleated RBCs Hypersegmented Neuts Smudge Cells Toxic Granulation Toxic Vacuolation Dohle Bodies Platelet Estimate Large Platelets Giant Platelets Plt Morphology Comment RBC Morphology Polychromasia Hypochromasia Basophilic Stippling Microcytosis Macrocytosis Target Cells Tear Drop Cells Ovalocytes Stomatocytes Tilly Cells Acanthocytes (Spur) Schistocytes Smear Path Review PT INR APTT Fibrinogen O2 Saturation ABG pH at Pt Temp ABG pCO2 at Pt Temp ABG pO2 at Pt Temp ABG HCO3 ABG Base Excess (Actual) VBG pH VBG pCO2 VBG pO2 VBG HCO3 VBG O2 Saturation VBG Base Excess Sodium Potassium Chloride Carbon Dioxide Anion Gap BUN Creatinine Estim Creat Clear Calc Estimated GFR POC Glucose 141 H Random Glucose Lactic Acid Lactic Acid F/U @ 2Hr Calcium Phosphorus Magnesium Total Bilirubin Direct Bilirubin AST ALT Alkaline Phosphatase Lactate Dehydrogenase Troponin I High Sens B-Natriuretic Peptide Total Protein Albumin Vitamin K1 Hold Yellow Top Urine Color Urine Appearance Urine pH Ur Specific [place] Urine Protein Urine Glucose (UA) Urine Ketones Urine Blood Urine Nitrite Ur Leukocyte Esterase Urine RBC Urine WBC Ur Squamous Epith Cells Urine Bacteria Hyaline Casts Bronchial Fluid WBC Bronchial Fluid RBC Bronchial Lymphocytes Bronchial Other Cells 6 Stool Occult Blood Stl C. cayetanensis PCR Stool Rotavirus A PCR Stl Adenov F 40/41 PCR Stool Astrovirus (PCR) Stool Campylobacter PCR Stool Cryptosporidium PCR Stl Sh Tox Pr E STEC PCR Stool E coli O157 PCR Stl Enterotoxigenic E PCR Stool EPEC (PCR) Stool EAEC (PCR) Stl E. histolytica PCR Stool Giardia Lamblia PCR Stl P. shigelloides PCR Stool Salmonella PCR Stool Sapovirus (PCR) Stl Shigella/EIEC PCR St Y.enterocolitica PCR Stool Vibrio (PCR) Stl Vibrio cholerae PCR Stl Norovirus GI/GII PCR Random Vancomycin 20.1 H IgE Respiratory Panel Alexandra Adenovirus (Rapid PCR) B.pert (TEM-PCR) B.parapertussis DNA PCR C. pneumoniae DNA (PCR) C. difficile Tox B Gene Coronavirus OC43 (PCR) Coronavirus HKU1 (PCR) Coronavirus 229E (PCR) Coronavirus NL63 (PCR) CMV Specimen Source CMV Qnt PCR IU/mL CMV Qnt PCR log IU/mL Human Metapneumovir PCR Influenza A (RT-PCR) Influenza A (H1) PCR Influ A (H1/09) PCR Influenza A (H3) PCR Influenza Type A (PCR) Influenza B (RT-PCR) Influenza Type B (PCR) M. pneumoniae (PCR) Parainfluenza 1 (PCR) Parainfluenza 2 (PCR) Parainfluenza 3 (PCR) Parainfluenza 4 (PCR) Aspergillus Ag (EIA) Aspergillus Index Value RSV (PCR) RSV RNA Qual (PCR) Entero/Rhino (PCR) SARS-CoV-2 RNA (RT-PCR) Beta-(1,3)-D-Glucan B-(1,3)-D-Glucan Intrp Blood Type Antibody Screen Crossmatch 01/17/25 01/17/25 01/17/25 20:00 20:24 23:23 WBC 10.1 RBC 3.09 L Hgb 9.2 L Hct 27.5 L MCV 89.0 MCH 29.8 MCHC 33.5 RDW 17.6 H Plt Count 292 MPV 10.6 Immature Gran % (Auto) Cancelled Neut % (Auto) Cancelled Lymph % (Auto) Cancelled [place] % (Auto) Cancelled Eos % (Auto) Cancelled Baso % (Auto) Cancelled Lymph # (Auto) Cancelled [place] # (Auto) Cancelled Eos # (Auto) Cancelled Baso # (Auto) Cancelled Abs Immat Gran (auto) Cancelled Absolute Neuts (auto) Cancelled Absolute Nucleated RBC 0.000 Nucleated RBC % (auto) 0.0 Neutrophils % (Manual) 58 Band Neutrophils % 13 H Lymphocytes % (Manual) 24 Atypical Lymphs % (Man) 1 Monocytes % (Manual) 3 Eosinophils % (Manual) Basophils % (Manual) Metamyelocytes % Myelocytes % 1 Abs Neuts (Manual) 7.2 Lymphocytes # (Manual) 2.4 Atyp Lymphs # (Manual) 0.1 Monocytes # (Manual) 0.3 Eosinophils # (Manual) Basophils # (Manual) Metamyelocytes # Myelocytes # 0.1 Nucleated RBCs 1 H Hypersegmented Neuts Smudge Cells Toxic Granulation PRESENT Toxic Vacuolation PRESENT Dohle Bodies PRESENT Platelet Estimate NORMAL Large Platelets Giant Platelets Plt Morphology Comment NORMAL RBC Morphology NOTED Polychromasia 1+ (0-2) Hypochromasia Basophilic Stippling 1+ (0-2) Microcytosis Macrocytosis Target Cells 1+ (5-14) Tear Drop Cells Ovalocytes 1+ (5-14) Stomatocytes Regulo Cells Acanthocytes (Spur) 1+ (0-2) Schistocytes Smear Path Review PT INR APTT Fibrinogen O2 Saturation ABG pH at Pt Temp ABG pCO2 at Pt Temp ABG pO2 at Pt Temp ABG HCO3 ABG Base Excess (Actual) VBG pH VBG pCO2 VBG pO2 VBG HCO3 VBG O2 Saturation VBG Base Excess Sodium 146 H Potassium 3.9 Chloride 108 Carbon Dioxide 24 Anion Gap 18 BUN 20 H Creatinine 1.70 H Estim Creat Clear Calc 35.0 Estimated GFR 31 POC Glucose Random Glucose 157 H Lactic Acid Lactic Acid F/U @ 2Hr Calcium 7.9 L Phosphorus Magnesium Total Bilirubin 0.8 Direct Bilirubin AST 25 ALT < 6 Alkaline Phosphatase 128 H Lactate Dehydrogenase Troponin I High Sens B-Natriuretic Peptide Total Protein 5.5 L Albumin 3.3 L Vitamin K1 Hold Yellow Top Urine Color Urine Appearance Urine pH Ur Specific [place] Urine Protein Urine Glucose (UA) Urine Ketones Urine Blood Urine Nitrite Ur Leukocyte Esterase Urine RBC Urine WBC Ur Squamous Epith Cells Urine Bacteria Hyaline Casts Bronchial Fluid WBC Bronchial Fluid RBC Bronchial Lymphocytes Bronchial Other Cells Stool Occult Blood Stl C. cayetanensis PCR Stool Rotavirus A PCR Stl Adenov F 40/41 PCR Stool Astrovirus (PCR) Stool Campylobacter PCR Stool Cryptosporidium PCR Stl Sh Tox Pr E STEC PCR Stool E coli O157 PCR Stl Enterotoxigenic E PCR Stool EPEC (PCR) Stool EAEC (PCR) Stl E. histolytica PCR Stool Giardia Lamblia PCR Stl P. shigelloides PCR Stool Salmonella PCR Stool Sapovirus (PCR) Stl Shigella/EIEC PCR St Y.enterocolitica PCR Stool Vibrio (PCR) Stl Vibrio cholerae PCR Stl Norovirus GI/GII PCR Random Vancomycin IgE Respiratory Panel Alexandra Adenovirus (Rapid PCR) B.pert (TEM-PCR) B.parapertussis DNA PCR C. pneumoniae DNA (PCR) C. difficile Tox B Gene Coronavirus OC43 (PCR) Coronavirus HKU1 (PCR) Coronavirus 229E (PCR) Coronavirus NL63 (PCR) CMV Specimen Source CMV Qnt PCR IU/mL CMV Qnt PCR log IU/mL Human Metapneumovir PCR Influenza A (RT-PCR) Influenza A (H1) PCR Influ A (H1/09) PCR Influenza A (H3) PCR Influenza Type A (PCR) Influenza B (RT-PCR) Influenza Type B (PCR) M. pneumoniae (PCR) Parainfluenza 1 (PCR) Parainfluenza 2 (PCR) Parainfluenza 3 (PCR) Parainfluenza 4 (PCR) Aspergillus Ag (EIA) Aspergillus Index Value RSV (PCR) RSV RNA Qual (PCR) Entero/Rhino (PCR) SARS-CoV-2 RNA (RT-PCR) Beta-(1,3)-D-Glucan B-(1,3)-D-Glucan Intrp Blood Type B Positive Antibody Screen NEGATIVE Crossmatch See Detail 01/18/25 01/18/25 01/18/25 04:37 04:38 05:31 WBC 11.6 H RBC 3.04 L Hgb 9.2 L Hct 27.3 L MCV 89.8 MCH 30.3 MCHC 33.7 RDW 17.4 H Plt Count 296 MPV 10.4 Immature Gran % (Auto) Cancelled Neut % (Auto) Cancelled Lymph % (Auto) Cancelled [place] % (Auto) Cancelled Eos % (Auto) Cancelled Baso % (Auto) Cancelled Lymph # (Auto) Cancelled [place] # (Auto) Cancelled Eos # (Auto) Cancelled Baso # (Auto) Cancelled Abs Immat Gran (auto) Cancelled Absolute Neuts (auto) Cancelled Absolute Nucleated RBC 0.000 Nucleated RBC % (auto) 0.0 Neutrophils % (Manual) 42 L Band Neutrophils % 20 H Lymphocytes % (Manual) 34 Atypical Lymphs % (Man) Monocytes % (Manual) 2 Eosinophils % (Manual) Basophils % (Manual) Metamyelocytes % 1 Myelocytes % 1 Abs Neuts (Manual) 7.2 Lymphocytes # (Manual) 3.9 Atyp Lymphs # (Manual) Monocytes # (Manual) 0.2 Eosinophils # (Manual) Basophils # (Manual) Metamyelocytes # 0.1 Myelocytes # 0.1 Nucleated RBCs Hypersegmented Neuts Smudge Cells Toxic Granulation Toxic Vacuolation PRESENT Dohle Bodies PRESENT Platelet Estimate NORMAL Large Platelets Giant Platelets Plt Morphology Comment NORMAL RBC Morphology NOTED Polychromasia 1+ (0-2) Hypochromasia 1+ (5-14) Basophilic Stippling Microcytosis Macrocytosis Target Cells 1+ (5-14) Tear Drop Cells Ovalocytes 1+ (5-14) Stomatocytes 1+ (5-14) Regulo Cells 1+ (0-2) Acanthocytes (Spur) Schistocytes 1+ (0-2) Smear Path Review PT INR APTT Fibrinogen O2 Saturation ABG pH at Pt Temp ABG pCO2 at Pt Temp ABG pO2 at Pt Temp ABG HCO3 ABG Base Excess (Actual) VBG pH 7.48 H VBG pCO2 37 VBG pO2 99 VBG HCO3 28 H VBG O2 Saturation 100.0 VBG Base Excess 4.5 Sodium 147 H Potassium 4.3 Chloride 109 H Carbon Dioxide 23 Anion Gap 19 BUN 23 H Creatinine 1.80 H Estim Creat Clear Calc 33.1 Estimated GFR 29 POC Glucose Random Glucose 148 H Lactic Acid Lactic Acid F/U @ 2Hr Calcium 8.0 L Phosphorus 3.7 Magnesium 1.8 Total Bilirubin 0.8 Direct Bilirubin AST 35 H ALT < 6 Alkaline Phosphatase 132 H Lactate Dehydrogenase Troponin I High Sens B-Natriuretic Peptide Total Protein 5.4 L Albumin 3.2 L Vitamin K1 Hold Yellow Top Urine Color Urine Appearance Urine pH Ur Specific [place] Urine Protein Urine Glucose (UA) Urine Ketones Urine Blood Urine Nitrite Ur Leukocyte Esterase Urine RBC Urine WBC Ur Squamous Epith Cells Urine Bacteria Hyaline Casts Bronchial Fluid WBC Bronchial Fluid RBC Bronchial Lymphocytes Bronchial Other Cells Stool Occult Blood Stl C. cayetanensis PCR Stool Rotavirus A PCR Stl Adenov F 40/41 PCR Stool Astrovirus (PCR) Stool Campylobacter PCR Stool Cryptosporidium PCR Stl Sh Tox Pr E STEC PCR Stool E coli O157 PCR Stl Enterotoxigenic E PCR Stool EPEC (PCR) Stool EAEC (PCR) Stl E. histolytica PCR Stool Giardia Lamblia PCR Stl P. shigelloides PCR Stool Salmonella PCR Stool Sapovirus (PCR) Stl Shigella/EIEC PCR St Y.enterocolitica PCR Stool Vibrio (PCR) Stl Vibrio cholerae PCR Stl Norovirus GI/GII PCR Random Vancomycin IgE Respiratory Panel Alexandra Adenovirus (Rapid PCR) B.pert (TEM-PCR) B.parapertussis DNA PCR C. pneumoniae DNA (PCR) C. difficile Tox B Gene Coronavirus OC43 (PCR) Coronavirus HKU1 (PCR) Coronavirus 229E (PCR) Coronavirus NL63 (PCR) CMV Specimen Source CMV Qnt PCR IU/mL CMV Qnt PCR log IU/mL Human Metapneumovir PCR Influenza A (RT-PCR) Influenza A (H1) PCR Influ A (H1/09) PCR Influenza A (H3) PCR Influenza Type A (PCR) Influenza B (RT-PCR) Influenza Type B (PCR) M. pneumoniae (PCR) Parainfluenza 1 (PCR) Parainfluenza 2 (PCR) Parainfluenza 3 (PCR) Parainfluenza 4 (PCR) Aspergillus Ag (EIA) Aspergillus Index Value RSV (PCR) RSV RNA Qual (PCR) Entero/Rhino (PCR) SARS-CoV-2 RNA (RT-PCR) Beta-(1,3)-D-Glucan B-(1,3)-D-Glucan Intrp Blood Type Antibody Screen Crossmatch 01/18/25 01/18/25 01/18/25 06:03 11:07 17:14 WBC RBC Hgb Hct MCV MCH MCHC RDW Plt Count MPV Immature Gran % (Auto) Neut % (Auto) Lymph % (Auto) [place] % (Auto) Eos % (Auto) Baso % (Auto) Lymph # (Auto) [place] # (Auto) Eos # (Auto) Baso # (Auto) Abs Immat Gran (auto) Absolute Neuts (auto) Absolute Nucleated RBC Nucleated RBC % (auto) Neutrophils % (Manual) Band Neutrophils % Lymphocytes % (Manual) Atypical Lymphs % (Man) Monocytes % (Manual) Eosinophils % (Manual) Basophils % (Manual) Metamyelocytes % Myelocytes % Abs Neuts (Manual) Lymphocytes # (Manual) Atyp Lymphs # (Manual) Monocytes # (Manual) Eosinophils # (Manual) Basophils # (Manual) Metamyelocytes # Myelocytes # Nucleated RBCs Hypersegmented Neuts Smudge Cells Toxic Granulation Toxic Vacuolation Dohle Bodies Platelet Estimate Large Platelets Giant Platelets Plt Morphology Comment RBC Morphology Polychromasia Hypochromasia Basophilic Stippling Microcytosis Macrocytosis Target Cells Tear Drop Cells Ovalocytes Stomatocytes Regulo Cells Acanthocytes (Spur) Schistocytes Smear Path Review PT INR APTT Fibrinogen O2 Saturation ABG pH at Pt Temp ABG pCO2 at Pt Temp ABG pO2 at Pt Temp ABG HCO3 ABG Base Excess (Actual) VBG pH VBG pCO2 VBG pO2 VBG HCO3 VBG O2 Saturation VBG Base Excess Sodium Potassium Chloride Carbon Dioxide Anion Gap BUN Creatinine Estim Creat Clear Calc Estimated GFR POC Glucose 206 H 140 H Random Glucose Lactic Acid Lactic Acid F/U @ 2Hr Calcium Phosphorus Magnesium Total Bilirubin Direct Bilirubin AST ALT Alkaline Phosphatase Lactate Dehydrogenase Troponin I High Sens B-Natriuretic Peptide Total Protein Albumin Vitamin K1 Hold Yellow Top Urine Color Urine Appearance Urine pH Ur Specific [place] Urine Protein Urine Glucose (UA) Urine Ketones Urine Blood Urine Nitrite Ur Leukocyte Esterase Urine RBC Urine WBC Ur Squamous Epith Cells Urine Bacteria Hyaline Casts Bronchial Fluid WBC Bronchial Fluid RBC Bronchial Lymphocytes Bronchial Other Cells Stool Occult Blood Stl C. cayetanensis PCR Stool Rotavirus A PCR Stl Adenov F 40/41 PCR Stool Astrovirus (PCR) Stool Campylobacter PCR Stool Cryptosporidium PCR Stl Sh Tox Pr E STEC PCR Stool E coli O157 PCR Stl Enterotoxigenic E PCR Stool EPEC (PCR) Stool EAEC (PCR) Stl E. histolytica PCR Stool Giardia Lamblia PCR Stl P. shigelloides PCR Stool Salmonella PCR Stool Sapovirus (PCR) Stl Shigella/EIEC PCR St Y.enterocolitica PCR Stool Vibrio (PCR) Stl Vibrio cholerae PCR Stl Norovirus GI/GII PCR Random Vancomycin 17.2 IgE Respiratory Panel Alexandra Adenovirus (Rapid PCR) B.pert (TEM-PCR) B.parapertussis DNA PCR C. pneumoniae DNA (PCR) C. difficile Tox B Gene Coronavirus OC43 (PCR) Coronavirus HKU1 (PCR) Coronavirus 229E (PCR) Coronavirus NL63 (PCR) CMV Specimen Source CMV Qnt PCR IU/mL CMV Qnt PCR log IU/mL Human Metapneumovir PCR Influenza A (RT-PCR) Influenza A (H1) PCR Influ A (H1/09) PCR Influenza A (H3) PCR Influenza Type A (PCR) Influenza B (RT-PCR) Influenza Type B (PCR) M. pneumoniae (PCR) Parainfluenza 1 (PCR) Parainfluenza 2 (PCR) Parainfluenza 3 (PCR) Parainfluenza 4 (PCR) Aspergillus Ag (EIA) Aspergillus Index Value RSV (PCR) RSV RNA Qual (PCR) Entero/Rhino (PCR) SARS-CoV-2 RNA (RT-PCR) Beta-(1,3)-D-Glucan B-(1,3)-D-Glucan Intrp Blood Type Antibody Screen Crossmatch 01/19/25 01/19/25 01/19/25 00:16 04:10 04:13 WBC 8.7 RBC 3.54 L Hgb 10.4 L Hct 32.4 L MCV 91.5 MCH 29.4 MCHC 32.1 RDW 17.5 H Plt Count 344 MPV 11.1 Immature Gran % (Auto) Cancelled Neut % (Auto) Cancelled Lymph % (Auto) Cancelled [place] % (Auto) Cancelled Eos % (Auto) Cancelled Baso % (Auto) Cancelled Lymph # (Auto) Cancelled [place] # (Auto) Cancelled Eos # (Auto) Cancelled Baso # (Auto) Cancelled Abs Immat Gran (auto) Cancelled Absolute Neuts (auto) Cancelled Absolute Nucleated RBC 0.000 Nucleated RBC % (auto) 0.0 Neutrophils % (Manual) 61 Band Neutrophils % 25 H Lymphocytes % (Manual) 4 L Atypical Lymphs % (Man) Monocytes % (Manual) 3 Eosinophils % (Manual) Basophils % (Manual) Metamyelocytes % 6 Myelocytes % 1 Abs Neuts (Manual) 7.5 Lymphocytes # (Manual) 0.3 L Atyp Lymphs # (Manual) Monocytes # (Manual) 0.3 Eosinophils # (Manual) Basophils # (Manual) Metamyelocytes # 0.5 Myelocytes # 0.1 Nucleated RBCs Hypersegmented Neuts Smudge Cells Toxic Granulation Toxic Vacuolation Dohle Bodies Platelet Estimate NORMAL Large Platelets PRESENT Giant Platelets Plt Morphology Comment NOTED RBC Morphology NOTED Polychromasia Hypochromasia Basophilic Stippling Microcytosis Macrocytosis Target Cells 1+ (5-14) Tear Drop Cells 1+ (0-2) Ovalocytes Stomatocytes Tilly Cells Acanthocytes (Spur) 1+ (0-2) Schistocytes 1+ (0-2) Smear Path Review PT INR APTT Fibrinogen O2 Saturation ABG pH at Pt Temp ABG pCO2 at Pt Temp ABG pO2 at Pt Temp ABG HCO3 ABG Base Excess (Actual) VBG pH 7.32 VBG pCO2 54 VBG pO2 59 VBG HCO3 28 H VBG O2 Saturation 85.0 VBG Base Excess 1.9 Sodium 145 Potassium 4.0 Chloride 106 Carbon Dioxide 26 Anion Gap 17 BUN 33 H Creatinine 2.26 H Estim Creat Clear Calc 24.5 Estimated GFR 22 POC Glucose 266 H Random Glucose 220 H Lactic Acid Lactic Acid F/U @ 2Hr Calcium 8.2 L Phosphorus 4.7 H Magnesium 2.1 Total Bilirubin 1.0 Direct Bilirubin AST 36 H ALT < 6 Alkaline Phosphatase 150 H Lactate Dehydrogenase Troponin I High Sens B-Natriuretic Peptide Total Protein 5.7 L Albumin 3.2 L Vitamin K1 Hold Yellow Top Urine Color Urine Appearance Urine pH Ur Specific [place] Urine Protein Urine Glucose (UA) Urine Ketones Urine Blood Urine Nitrite Ur Leukocyte Esterase Urine RBC Urine WBC Ur Squamous Epith Cells Urine Bacteria Hyaline Casts Bronchial Fluid WBC Bronchial Fluid RBC Bronchial Lymphocytes Bronchial Other Cells Stool Occult Blood Stl C. cayetanensis PCR Stool Rotavirus A PCR Stl Adenov F 40/41 PCR Stool Astrovirus (PCR) Stool Campylobacter PCR Stool Cryptosporidium PCR Stl Sh Tox Pr E STEC PCR Stool E coli O157 PCR Stl Enterotoxigenic E PCR Stool EPEC (PCR) Stool EAEC (PCR) Stl E. histolytica PCR Stool Giardia Lamblia PCR Stl P. shigelloides PCR Stool Salmonella PCR Stool Sapovirus (PCR) Stl Shigella/EIEC PCR St Y.enterocolitica PCR Stool Vibrio (PCR) Stl Vibrio cholerae PCR Stl Norovirus GI/GII PCR Random Vancomycin IgE Respiratory Panel Alexandra Adenovirus (Rapid PCR) B.pert (TEM-PCR) B.parapertussis DNA PCR C. pneumoniae DNA (PCR) C. difficile Tox B Gene Coronavirus OC43 (PCR) Coronavirus HKU1 (PCR) Coronavirus 229E (PCR) Coronavirus NL63 (PCR) CMV Specimen Source PLASMA CMV Qnt PCR IU/mL <34.5 DETECTED CMV Qnt PCR log IU/mL <1.54 DETECTED Human Metapneumovir PCR Influenza A (RT-PCR) Influenza A (H1) PCR Influ A (H1/09) PCR Influenza A (H3) PCR Influenza Type A (PCR) Influenza B (RT-PCR) Influenza Type B (PCR) M. pneumoniae (PCR) Parainfluenza 1 (PCR) Parainfluenza 2 (PCR) Parainfluenza 3 (PCR) Parainfluenza 4 (PCR) Aspergillus Ag (EIA) Aspergillus Index Value RSV (PCR) RSV RNA Qual (PCR) Entero/Rhino (PCR) SARS-CoV-2 RNA (RT-PCR) Beta-(1,3)-D-Glucan B-(1,3)-D-Glucan Intrp Blood Type Antibody Screen Crossmatch 01/19/25 01/19/25 01/19/25 05:58 11:23 17:59 WBC RBC Hgb Hct MCV MCH MCHC RDW Plt Count MPV Immature Gran % (Auto) Neut % (Auto) Lymph % (Auto) [place] % (Auto) Eos % (Auto) Baso % (Auto) Lymph # (Auto) [place] # (Auto) Eos # (Auto) Baso # (Auto) Abs Immat Gran (auto) Absolute Neuts (auto) Absolute Nucleated RBC Nucleated RBC % (auto) Neutrophils % (Manual) Band Neutrophils % Lymphocytes % (Manual) Atypical Lymphs % (Man) Monocytes % (Manual) Eosinophils % (Manual) Basophils % (Manual) Metamyelocytes % Myelocytes % Abs Neuts (Manual) Lymphocytes # (Manual) Atyp Lymphs # (Manual) Monocytes # (Manual) Eosinophils # (Manual) Basophils # (Manual) Metamyelocytes # Myelocytes # Nucleated RBCs Hypersegmented Neuts Smudge Cells Toxic Granulation Toxic Vacuolation Dohle Bodies Platelet Estimate Large Platelets Giant Platelets Plt Morphology Comment RBC Morphology Polychromasia Hypochromasia Basophilic Stippling Microcytosis Macrocytosis Target Cells Tear Drop Cells Ovalocytes Stomatocytes Regulo Cells Acanthocytes (Spur) Schistocytes Smear Path Review PT INR APTT Fibrinogen O2 Saturation ABG pH at Pt Temp ABG pCO2 at Pt Temp ABG pO2 at Pt Temp ABG HCO3 ABG Base Excess (Actual) VBG pH VBG pCO2 VBG pO2 VBG HCO3 VBG O2 Saturation VBG Base Excess Sodium Potassium Chloride Carbon Dioxide Anion Gap BUN Creatinine Estim Creat Clear Calc Estimated GFR POC Glucose 212 H Random Glucose Lactic Acid Lactic Acid F/U @ 2Hr Calcium Phosphorus Magnesium Total Bilirubin Direct Bilirubin AST ALT Alkaline Phosphatase Lactate Dehydrogenase Troponin I High Sens B-Natriuretic Peptide Total Protein Albumin Vitamin K1 Hold Yellow Top Urine Color Urine Appearance Urine pH Ur Specific [place] Urine Protein Urine Glucose (UA) Urine Ketones Urine Blood Urine Nitrite Ur Leukocyte Esterase Urine RBC Urine WBC Ur Squamous Epith Cells Urine Bacteria Hyaline Casts Bronchial Fluid WBC Bronchial Fluid RBC Bronchial Lymphocytes Bronchial Other Cells Stool Occult Blood Stl C. cayetanensis PCR Cancelled Stool Rotavirus A PCR Cancelled Stl Adenov F 40/41 PCR Cancelled Stool Astrovirus (PCR) Cancelled Stool Campylobacter PCR Cancelled Stool Cryptosporidium PCR Cancelled Stl Sh Tox Pr E STEC PCR Cancelled Stool E coli O157 PCR Cancelled Stl Enterotoxigenic E PCR Cancelled Stool EPEC (PCR) Cancelled Stool EAEC (PCR) Cancelled Stl E. histolytica PCR Cancelled Stool Giardia Lamblia PCR Cancelled Stl P. shigelloides PCR Cancelled Stool Salmonella PCR Cancelled Stool Sapovirus (PCR) Cancelled Stl Shigella/EIEC PCR Cancelled St Y.enterocolitica PCR Cancelled Stool Vibrio (PCR) Cancelled Stl Vibrio cholerae PCR Cancelled Stl Norovirus GI/GII PCR Cancelled Random Vancomycin 17.4 IgE Respiratory Panel Alexandra Adenovirus (Rapid PCR) B.pert (TEM-PCR) B.parapertussis DNA PCR C. pneumoniae DNA (PCR) C. difficile Tox B Gene Coronavirus OC43 (PCR) Coronavirus HKU1 (PCR) Coronavirus 229E (PCR) Coronavirus NL63 (PCR) CMV Specimen Source CMV Qnt PCR IU/mL CMV Qnt PCR log IU/mL Human Metapneumovir PCR Influenza A (RT-PCR) Influenza A (H1) PCR Influ A (H1/09) PCR Influenza A (H3) PCR Influenza Type A (PCR) Influenza B (RT-PCR) Influenza Type B (PCR) M. pneumoniae (PCR) Parainfluenza 1 (PCR) Parainfluenza 2 (PCR) Parainfluenza 3 (PCR) Parainfluenza 4 (PCR) Aspergillus Ag (EIA) Aspergillus Index Value RSV (PCR) RSV RNA Qual (PCR) Entero/Rhino (PCR) SARS-CoV-2 RNA (RT-PCR) Beta-(1,3)-D-Glucan B-(1,3)-D-Glucan Intrp Blood Type Antibody Screen Crossmatch 01/19/25 01/19/25 01/19/25 18:05 20:47 20:48 WBC RBC Hgb 7.9 L D Hct 23.6 L D MCV MCH MCHC RDW Plt Count MPV Immature Gran % (Auto) Neut % (Auto) Lymph % (Auto) [place] % (Auto) Eos % (Auto) Baso % (Auto) Lymph # (Auto) [place] # (Auto) Eos # (Auto) Baso # (Auto) Abs Immat Gran (auto) Absolute Neuts (auto) Absolute Nucleated RBC Nucleated RBC % (auto) Neutrophils % (Manual) Band Neutrophils % Lymphocytes % (Manual) Atypical Lymphs % (Man) Monocytes % (Manual) Eosinophils % (Manual) Basophils % (Manual) Metamyelocytes % Myelocytes % Abs Neuts (Manual) Lymphocytes # (Manual) Atyp Lymphs # (Manual) Monocytes # (Manual) Eosinophils # (Manual) Basophils # (Manual) Metamyelocytes # Myelocytes # Nucleated RBCs Hypersegmented Neuts Smudge Cells Toxic Granulation Toxic Vacuolation Dohle Bodies Platelet Estimate Large Platelets Giant Platelets Plt Morphology Comment RBC Morphology Polychromasia Hypochromasia Basophilic Stippling Microcytosis Macrocytosis Target Cells Tear Drop Cells Ovalocytes Stomatocytes [place] Cells Acanthocytes (Spur) Schistocytes Smear Path Review PT INR APTT Fibrinogen O2 Saturation ABG pH at Pt Temp ABG pCO2 at Pt Temp ABG pO2 at Pt Temp ABG HCO3 ABG Base Excess (Actual) VBG pH VBG pCO2 VBG pO2 VBG HCO3 VBG O2 Saturation VBG Base Excess Sodium 144 Potassium 3.6 Chloride 105 Carbon Dioxide 22 Anion Gap 21 H BUN 41 H Creatinine 2.32 H Estim Creat Clear Calc 24.3 Estimated GFR 21 POC Glucose 245 H Random Glucose 298 H Lactic Acid Lactic Acid F/U @ 2Hr Calcium 8.0 L Phosphorus Magnesium Total Bilirubin Direct Bilirubin AST ALT Alkaline Phosphatase Lactate Dehydrogenase Troponin I High Sens B-Natriuretic Peptide Total Protein Albumin Vitamin K1 Hold Yellow Top Urine Color Urine Appearance Urine pH Ur Specific [place] Urine Protein Urine Glucose (UA) Urine Ketones Urine Blood Urine Nitrite Ur Leukocyte Esterase Urine RBC Urine WBC Ur Squamous Epith Cells Urine Bacteria Hyaline Casts Bronchial Fluid WBC Bronchial Fluid RBC Bronchial Lymphocytes Bronchial Other Cells Stool Occult Blood Stl C. cayetanensis PCR Stool Rotavirus A PCR Stl Adenov F 40/41 PCR Stool Astrovirus (PCR) Stool Campylobacter PCR Stool Cryptosporidium PCR Stl Sh Tox Pr E STEC PCR Stool E coli O157 PCR Stl Enterotoxigenic E PCR Stool EPEC (PCR) Stool EAEC (PCR) Stl E. histolytica PCR Stool Giardia Lamblia PCR Stl P. shigelloides PCR Stool Salmonella PCR Stool Sapovirus (PCR) Stl Shigella/EIEC PCR St Y.enterocolitica PCR Stool Vibrio (PCR) Stl Vibrio cholerae PCR Stl Norovirus GI/GII PCR Random Vancomycin IgE Respiratory Panel Alexandra Adenovirus (Rapid PCR) B.pert (TEM-PCR) B.parapertussis DNA PCR C. pneumoniae DNA (PCR) C. difficile Tox B Gene Coronavirus OC43 (PCR) Coronavirus HKU1 (PCR) Coronavirus 229E (PCR) Coronavirus NL63 (PCR) CMV Specimen Source CMV Qnt PCR IU/mL CMV Qnt PCR log IU/mL Human Metapneumovir PCR Influenza A (RT-PCR) Influenza A (H1) PCR Influ A (H1/09) PCR Influenza A (H3) PCR Influenza Type A (PCR) Influenza B (RT-PCR) Influenza Type B (PCR) M. pneumoniae (PCR) Parainfluenza 1 (PCR) Parainfluenza 2 (PCR) Parainfluenza 3 (PCR) Parainfluenza 4 (PCR) Aspergillus Ag (EIA) Aspergillus Index Value RSV (PCR) RSV RNA Qual (PCR) Entero/Rhino (PCR) SARS-CoV-2 RNA (RT-PCR) Beta-(1,3)-D-Glucan B-(1,3)-D-Glucan Intrp Blood Type Antibody Screen Crossmatch 01/20/25 01/20/25 01/20/25 00:00 03:56 04:03 WBC 6.9 RBC 2.30 L D Hgb 6.8 L* Hct 20.0 L* MCV 87.0 MCH 29.6 MCHC 34.0 RDW 16.8 H Plt Count 216 D MPV 10.8 Immature Gran % (Auto) Cancelled Neut % (Auto) Cancelled Lymph % (Auto) Cancelled [place] % (Auto) Cancelled Eos % (Auto) Cancelled Baso % (Auto) Cancelled Lymph # (Auto) Cancelled [place] # (Auto) Cancelled Eos # (Auto) Cancelled Baso # (Auto) Cancelled Abs Immat Gran (auto) Cancelled Absolute Neuts (auto) Cancelled Absolute Nucleated RBC 0.000 Nucleated RBC % (auto) 0.0 Neutrophils % (Manual) 76 H Band Neutrophils % 5 Lymphocytes % (Manual) 17 L Atypical Lymphs % (Man) Monocytes % (Manual) Eosinophils % (Manual) Basophils % (Manual) Metamyelocytes % 2 Myelocytes % Abs Neuts (Manual) 5.6 Lymphocytes # (Manual) 1.2 Atyp Lymphs # (Manual) Monocytes # (Manual) Eosinophils # (Manual) Basophils # (Manual) Metamyelocytes # 0.1 Myelocytes # Nucleated RBCs Hypersegmented Neuts Smudge Cells PRESENT Toxic Granulation PRESENT Toxic Vacuolation Dohle Bodies PRESENT Platelet Estimate NORMAL Large Platelets PRESENT Giant Platelets Plt Morphology Comment NOTED RBC Morphology NOTED Polychromasia 1+ (0-2) Hypochromasia 1+ (5-14) Basophilic Stippling 1+ (0-2) Microcytosis Macrocytosis 1+ (5-14) Target Cells 2+ (15-30) Tear Drop Cells 1+ (0-2) Ovalocytes 1+ (5-14) Stomatocytes 1+ (5-14) Regulo Cells Acanthocytes (Spur) Schistocytes 1+ (0-2) Smear Path Review PT INR APTT Fibrinogen O2 Saturation ABG pH at Pt Temp ABG pCO2 at Pt Temp ABG pO2 at Pt Temp ABG HCO3 ABG Base Excess (Actual) VBG pH 7.56 H VBG pCO2 35 VBG pO2 44 VBG HCO3 31 H VBG O2 Saturation 75.0 VBG Base Excess 9.2 Sodium 145 Potassium 3.5 Chloride 105 Carbon Dioxide 26 Anion Gap 18 BUN 47 H Creatinine 2.32 H Estim Creat Clear Calc 24.3 Estimated GFR 21 POC Glucose 314 H Random Glucose 278 H Lactic Acid Lactic Acid F/U @ 2Hr Calcium 7.9 L Phosphorus 3.9 Magnesium Total Bilirubin 0.9 Direct Bilirubin AST 33 H ALT < 6 Alkaline Phosphatase 163 H Lactate Dehydrogenase Troponin I High Sens B-Natriuretic Peptide Total Protein 4.8 L Albumin 2.9 L Vitamin K1 Hold Yellow Top Urine Color Urine Appearance Urine pH Ur Specific [place] Urine Protein Urine Glucose (UA) Urine Ketones Urine Blood Urine Nitrite Ur Leukocyte Esterase Urine RBC Urine WBC Ur Squamous Epith Cells Urine Bacteria Hyaline Casts Bronchial Fluid WBC Bronchial Fluid RBC Bronchial Lymphocytes Bronchial Other Cells Stool Occult Blood Stl C. cayetanensis PCR Stool Rotavirus A PCR Stl Adenov F 40/41 PCR Stool Astrovirus (PCR) Stool Campylobacter PCR Stool Cryptosporidium PCR Stl Sh Tox Pr E STEC PCR Stool E coli O157 PCR Stl Enterotoxigenic E PCR Stool EPEC (PCR) Stool EAEC (PCR) Stl E. histolytica PCR Stool Giardia Lamblia PCR Stl P. shigelloides PCR Stool Salmonella PCR Stool Sapovirus (PCR) Stl Shigella/EIEC PCR St Y.enterocolitica PCR Stool Vibrio (PCR) Stl Vibrio cholerae PCR Stl Norovirus GI/GII PCR Random Vancomycin IgE Respiratory Panel Alexandra Adenovirus (Rapid PCR) B.pert (TEM-PCR) B.parapertussis DNA PCR C. pneumoniae DNA (PCR) C. difficile Tox B Gene Coronavirus OC43 (PCR) Coronavirus HKU1 (PCR) Coronavirus 229E (PCR) Coronavirus NL63 (PCR) CMV Specimen Source CMV Qnt PCR IU/mL CMV Qnt PCR log IU/mL Human Metapneumovir PCR Influenza A (RT-PCR) Influenza A (H1) PCR Influ A (H1/09) PCR Influenza A (H3) PCR Influenza Type A (PCR) Influenza B (RT-PCR) Influenza Type B (PCR) M. pneumoniae (PCR) Parainfluenza 1 (PCR) Parainfluenza 2 (PCR) Parainfluenza 3 (PCR) Parainfluenza 4 (PCR) Aspergillus Ag (EIA) Aspergillus Index Value RSV (PCR) RSV RNA Qual (PCR) Entero/Rhino (PCR) SARS-CoV-2 RNA (RT-PCR) Beta-(1,3)-D-Glucan B-(1,3)-D-Glucan Intrp Blood Type Antibody Screen Crossmatch 01/20/25 01/20/25 01/20/25 05:43 11:09 11:31 WBC RBC Hgb 8.2 L D Hct 23.2 L MCV MCH MCHC RDW Plt Count MPV Immature Gran % (Auto) Neut % (Auto) Lymph % (Auto) [place] % (Auto) Eos % (Auto) Baso % (Auto) Lymph # (Auto) [place] # (Auto) Eos # (Auto) Baso # (Auto) Abs Immat Gran (auto) Absolute Neuts (auto) Absolute Nucleated RBC Nucleated RBC % (auto) Neutrophils % (Manual) Band Neutrophils % Lymphocytes % (Manual) Atypical Lymphs % (Man) Monocytes % (Manual) Eosinophils % (Manual) Basophils % (Manual) Metamyelocytes % Myelocytes % Abs Neuts (Manual) Lymphocytes # (Manual) Atyp Lymphs # (Manual) Monocytes # (Manual) Eosinophils # (Manual) Basophils # (Manual) Metamyelocytes # Myelocytes # Nucleated RBCs Hypersegmented Neuts Smudge Cells Toxic Granulation Toxic Vacuolation Dohle Bodies Platelet Estimate Large Platelets Giant Platelets Plt Morphology Comment RBC Morphology Polychromasia Hypochromasia Basophilic Stippling Microcytosis Macrocytosis Target Cells Tear Drop Cells Ovalocytes Stomatocytes Regulo Cells Acanthocytes (Spur) Schistocytes Smear Path Review PT INR APTT Fibrinogen O2 Saturation ABG pH at Pt Temp ABG pCO2 at Pt Temp ABG pO2 at Pt Temp ABG HCO3 ABG Base Excess (Actual) VBG pH VBG pCO2 VBG pO2 VBG HCO3 VBG O2 Saturation VBG Base Excess Sodium Potassium Chloride Carbon Dioxide Anion Gap BUN Creatinine Estim Creat Clear Calc Estimated GFR POC Glucose 303 H 275 H Random Glucose Lactic Acid Lactic Acid F/U @ 2Hr Calcium Phosphorus Magnesium Total Bilirubin Direct Bilirubin AST ALT Alkaline Phosphatase Lactate Dehydrogenase Troponin I High Sens B-Natriuretic Peptide Total Protein Albumin Vitamin K1 Hold Yellow Top Urine Color Urine Appearance Urine pH Ur Specific [place] Urine Protein Urine Glucose (UA) Urine Ketones Urine Blood Urine Nitrite Ur Leukocyte Esterase Urine RBC Urine WBC Ur Squamous Epith Cells Urine Bacteria Hyaline Casts Bronchial Fluid WBC Bronchial Fluid RBC Bronchial Lymphocytes Bronchial Other Cells Stool Occult Blood Stl C. cayetanensis PCR Stool Rotavirus A PCR Stl Adenov F 40 PCR Stool Astrovirus (PCR) Stool Campylobacter PCR Stool Cryptosporidium PCR Stl Sh Tox Pr E STEC PCR Stool E coli O157 PCR Stl Enterotoxigenic E PCR Stool EPEC (PCR) Stool EAEC (PCR) Stl E. histolytica PCR Stool Giardia Lamblia PCR Stl P. shigelloides PCR Stool Salmonella PCR Stool Sapovirus (PCR) Stl Shigella/EIEC PCR St Y.enterocolitica PCR Stool Vibrio (PCR) Stl Vibrio cholerae PCR Stl Norovirus GI/GII PCR Random Vancomycin IgE 193 H Respiratory Panel Alexandra Adenovirus (Rapid PCR) B.pert (TEM-PCR) B.parapertussis DNA PCR C. pneumoniae DNA (PCR) C. difficile Tox B Gene Coronavirus OC43 (PCR) Coronavirus HKU1 (PCR) Coronavirus 229E (PCR) Coronavirus NL63 (PCR) CMV Specimen Source CMV Qnt PCR IU/mL CMV Qnt PCR log IU/mL Human Metapneumovir PCR Influenza A (RT-PCR) Influenza A (H1) PCR Influ A (H1/09) PCR Influenza A (H3) PCR Influenza Type A (PCR) Influenza B (RT-PCR) Influenza Type B (PCR) M. pneumoniae (PCR) Parainfluenza 1 (PCR) Parainfluenza 2 (PCR) Parainfluenza 3 (PCR) Parainfluenza 4 (PCR) Aspergillus Ag (EIA) Not Detected Aspergillus Index Value 0.04 RSV (PCR) RSV RNA Qual (PCR) Entero/Rhino (PCR) SARS-CoV-2 RNA (RT-PCR) Beta-(1,3)-D-Glucan B-(1,3)-D-Glucan Intrp Blood Type Antibody Screen Crossmatch 01/20/25 01/20/25 01/20/25 17:23 21:21 23:47 WBC 9.0 RBC 2.20 L Hgb 6.8 L* Hct 19.0 L* MCV 86.4 MCH 30.9 MCHC 35.8 H RDW 15.8 Plt Count 192 MPV 11.9 Immature Gran % (Auto) Cancelled Neut % (Auto) Cancelled Lymph % (Auto) Cancelled [place] % (Auto) Cancelled Eos % (Auto) Cancelled Baso % (Auto) Cancelled Lymph # (Auto) Cancelled [place] # (Auto) Cancelled Eos # (Auto) Cancelled Baso # (Auto) Cancelled Abs Immat Gran (auto) Cancelled Absolute Neuts (auto) Cancelled Absolute Nucleated RBC 0.000 Nucleated RBC % (auto) 0.0 Neutrophils % (Manual) 72 Band Neutrophils % 13 H Lymphocytes % (Manual) 12 L Atypical Lymphs % (Man) Monocytes % (Manual) 3 Eosinophils % (Manual) Basophils % (Manual) Metamyelocytes % Myelocytes % Abs Neuts (Manual) 7.7 Lymphocytes # (Manual) 1.1 L Atyp Lymphs # (Manual) Monocytes # (Manual) 0.3 Eosinophils # (Manual) Basophils # (Manual) Metamyelocytes # Myelocytes # Nucleated RBCs Hypersegmented Neuts PRESENT Smudge Cells Toxic Granulation PRESENT Toxic Vacuolation PRESENT Dohle Bodies Platelet Estimate NORMAL Large Platelets PRESENT Giant Platelets Plt Morphology Comment NOTED RBC Morphology NOTED Polychromasia Hypochromasia Basophilic Stippling Microcytosis 2+ (15-30) Macrocytosis 2+ (15-30) Target Cells 2+ (15-30) Tear Drop Cells Ovalocytes Stomatocytes 1+ (5-14) Regulo Cells Acanthocytes (Spur) Schistocytes 1+ (0-2) Smear Path Review PT INR APTT Fibrinogen O2 Saturation ABG pH at Pt Temp ABG pCO2 at Pt Temp ABG pO2 at Pt Temp ABG HCO3 ABG Base Excess (Actual) VBG pH VBG pCO2 VBG pO2 VBG HCO3 VBG O2 Saturation VBG Base Excess Sodium Potassium Chloride Carbon Dioxide Anion Gap BUN Creatinine Estim Creat Clear Calc Estimated GFR POC Glucose 277 H 287 H Random Glucose Lactic Acid Lactic Acid F/U @ 2Hr Calcium Phosphorus Magnesium Total Bilirubin Direct Bilirubin AST ALT Alkaline Phosphatase Lactate Dehydrogenase Troponin I High Sens B-Natriuretic Peptide Total Protein Albumin Vitamin K1 Hold Yellow Top Urine Color Urine Appearance Urine pH Ur Specific [place] Urine Protein Urine Glucose (UA) Urine Ketones Urine Blood Urine Nitrite Ur Leukocyte Esterase Urine RBC Urine WBC Ur Squamous Epith Cells Urine Bacteria Hyaline Casts Bronchial Fluid WBC Bronchial Fluid RBC Bronchial Lymphocytes Bronchial Other Cells Stool Occult Blood Stl C. cayetanensis PCR Stool Rotavirus A PCR Stl Adenov F 40/41 PCR Stool Astrovirus (PCR) Stool Campylobacter PCR Stool Cryptosporidium PCR Stl Sh Tox Pr E STEC PCR Stool E coli O157 PCR Stl Enterotoxigenic E PCR Stool EPEC (PCR) Stool EAEC (PCR) Stl E. histolytica PCR Stool Giardia Lamblia PCR Stl P. shigelloides PCR Stool Salmonella PCR Stool Sapovirus (PCR) Stl Shigella/EIEC PCR St Y.enterocolitica PCR Stool Vibrio (PCR) Stl Vibrio cholerae PCR Stl Norovirus GI/GII PCR Random Vancomycin IgE Respiratory Panel Alexandra Adenovirus (Rapid PCR) B.pert (TEM-PCR) B.parapertussis DNA PCR C. pneumoniae DNA (PCR) C. difficile Tox B Gene Coronavirus OC43 (PCR) Coronavirus HKU1 (PCR) Coronavirus 229E (PCR) Coronavirus NL63 (PCR) CMV Specimen Source CMV Qnt PCR IU/mL CMV Qnt PCR log IU/mL Human Metapneumovir PCR Influenza A (RT-PCR) Influenza A (H1) PCR Influ A (H1) PCR Influenza A (H3) PCR Influenza Type A (PCR) Influenza B (RT-PCR) Influenza Type B (PCR) M. pneumoniae (PCR) Parainfluenza 1 (PCR) Parainfluenza 2 (PCR) Parainfluenza 3 (PCR) Parainfluenza 4 (PCR) Aspergillus Ag (EIA) Aspergillus Index Value RSV (PCR) RSV RNA Qual (PCR) Entero/Rhino (PCR) SARS-CoV-2 RNA (RT-PCR) Beta-(1,3)-D-Glucan B-(1,3)-D-Glucan Intrp Blood Type B Positive Antibody Screen NEGATIVE Crossmatch See Detail 01/21/25 01/21/25 01/21/25 02:18 04:02 05:09 WBC 12.1 H 8.9 RBC 2.45 L 1.94 L D Hgb 7.7 L 6.0 L* D Hct 21.2 L 16.9 L* D MCV 86.5 87.1 MCH 31.4 30.9 MCHC 36.3 H 35.5 H RDW 14.6 14.8 Plt Count 176 152 L MPV 11.6 11.4 Immature Gran % (Auto) Cancelled Neut % (Auto) Cancelled Lymph % (Auto) Cancelled [place] % (Auto) Cancelled Eos % (Auto) Cancelled Baso % (Auto) Cancelled Lymph # (Auto) Cancelled [place] # (Auto) Cancelled Eos # (Auto) Cancelled Baso # (Auto) Cancelled Abs Immat Gran (auto) Cancelled Absolute Neuts (auto) Cancelled Absolute Nucleated RBC 0.000 0.000 Nucleated RBC % (auto) 0.0 0.0 Neutrophils % (Manual) 74 H Band Neutrophils % 9 H Lymphocytes % (Manual) 17 L Atypical Lymphs % (Man) Monocytes % (Manual) Eosinophils % (Manual) Basophils % (Manual) Metamyelocytes % Myelocytes % Abs Neuts (Manual) 7.4 Lymphocytes # (Manual) 1.5 Atyp Lymphs # (Manual) Monocytes # (Manual) Eosinophils # (Manual) Basophils # (Manual) Metamyelocytes # Myelocytes # Nucleated RBCs Hypersegmented Neuts Smudge Cells PRESENT Toxic Granulation PRESENT Toxic Vacuolation PRESENT Dohle Bodies PRESENT Platelet Estimate NORMAL Large Platelets PRESENT Giant Platelets PRESENT Plt Morphology Comment NOTED RBC Morphology NOTED Polychromasia Hypochromasia 2+ (15-30) Basophilic Stippling 1+ (0-2) Microcytosis 1+ (5-14) Macrocytosis Target Cells 2+ (15-30) Tear Drop Cells Ovalocytes 1+ (5-14) Stomatocytes 1+ (5-14) Tilly Cells Acanthocytes (Spur) Schistocytes Smear Path Review PT INR APTT Fibrinogen O2 Saturation ABG pH at Pt Temp ABG pCO2 at Pt Temp ABG pO2 at Pt Temp ABG HCO3 ABG Base Excess (Actual) VBG pH VBG pCO2 VBG pO2 VBG HCO3 VBG O2 Saturation VBG Base Excess Sodium 150 H Potassium 2.6 L* D Chloride 105 Carbon Dioxide 30 H Anion Gap 18 BUN 68 H Creatinine 2.09 H Estim Creat Clear Calc 26.4 Estimated GFR 24 POC Glucose Random Glucose 240 H Lactic Acid 3.2 H* Lactic Acid F/U @ 2Hr Calcium 7.8 L Phosphorus 3.9 Magnesium 2.2 Total Bilirubin 0.7 Direct Bilirubin AST 38 H ALT 17 Alkaline Phosphatase 140 H Lactate Dehydrogenase Troponin I High Sens B-Natriuretic Peptide Total Protein 4.7 L Albumin 3.3 L Vitamin K1 Hold Yellow Top Urine Color Urine Appearance Urine pH Ur Specific [place] Urine Protein Urine Glucose (UA) Urine Ketones Urine Blood Urine Nitrite Ur Leukocyte Esterase Urine RBC Urine WBC Ur Squamous Epith Cells Urine Bacteria Hyaline Casts Bronchial Fluid WBC Bronchial Fluid RBC Bronchial Lymphocytes Bronchial Other Cells Stool Occult Blood Stl C. cayetanensis PCR Stool Rotavirus A PCR Stl Adenov F 40/41 PCR Stool Astrovirus (PCR) Stool Campylobacter PCR Stool Cryptosporidium PCR Stl Sh Tox Pr E STEC PCR Stool E coli O157 PCR Stl Enterotoxigenic E PCR Stool EPEC (PCR) Stool EAEC (PCR) Stl E. histolytica PCR Stool Giardia Lamblia PCR Stl P. shigelloides PCR Stool Salmonella PCR Stool Sapovirus (PCR) Stl Shigella/EIEC PCR St Y.enterocolitica PCR Stool Vibrio (PCR) Stl Vibrio cholerae PCR Stl Norovirus GI/GII PCR Random Vancomycin IgE Respiratory Panel Alexandra Adenovirus (Rapid PCR) B.pert (TEM-PCR) B.parapertussis DNA PCR C. pneumoniae DNA (PCR) C. difficile Tox B Gene Coronavirus OC43 (PCR) Coronavirus HKU1 (PCR) Coronavirus 229E (PCR) Coronavirus NL63 (PCR) CMV Specimen Source CMV Qnt PCR IU/mL CMV Qnt PCR log IU/mL Human Metapneumovir PCR Influenza A (RT-PCR) Influenza A (H1) PCR Influ A (H1/09) PCR Influenza A (H3) PCR Influenza Type A (PCR) Influenza B (RT-PCR) Influenza Type B (PCR) M. pneumoniae (PCR) Parainfluenza 1 (PCR) Parainfluenza 2 (PCR) Parainfluenza 3 (PCR) Parainfluenza 4 (PCR) Aspergillus Ag (EIA) Aspergillus Index Value RSV (PCR) RSV RNA Qual (PCR) Entero/Rhino (PCR) SARS-CoV-2 RNA (RT-PCR) Beta-(1,3)-D-Glucan B-(1,3)-D-Glucan Intrp Blood Type Antibody Screen Crossmatch 01/21/25 01/21/25 01/21/25 05:28 05:29 12:22 WBC RBC Hgb Hct MCV MCH MCHC RDW Plt Count MPV Immature Gran % (Auto) Neut % (Auto) Lymph % (Auto) [place] % (Auto) Eos % (Auto) Baso % (Auto) Lymph # (Auto) [place] # (Auto) Eos # (Auto) Baso # (Auto) Abs Immat Gran (auto) Absolute Neuts (auto) Absolute Nucleated RBC Nucleated RBC % (auto) Neutrophils % (Manual) Band Neutrophils % Lymphocytes % (Manual) Atypical Lymphs % (Man) Monocytes % (Manual) Eosinophils % (Manual) Basophils % (Manual) Metamyelocytes % Myelocytes % Abs Neuts (Manual) Lymphocytes # (Manual) Atyp Lymphs # (Manual) Monocytes # (Manual) Eosinophils # (Manual) Basophils # (Manual) Metamyelocytes # Myelocytes # Nucleated RBCs Hypersegmented Neuts Smudge Cells Toxic Granulation Toxic Vacuolation Dohle Bodies Platelet Estimate Large Platelets Giant Platelets Plt Morphology Comment RBC Morphology Polychromasia Hypochromasia Basophilic Stippling Microcytosis Macrocytosis Target Cells Tear Drop Cells Ovalocytes Stomatocytes [place] Cells Acanthocytes (Spur) Schistocytes Smear Path Review PT INR APTT Fibrinogen O2 Saturation ABG pH at Pt Temp ABG pCO2 at Pt Temp ABG pO2 at Pt Temp ABG HCO3 ABG Base Excess (Actual) VBG pH 7.56 H VBG pCO2 39 VBG pO2 68 VBG HCO3 36 H VBG O2 Saturation TNP VBG Base Excess 13.2 Sodium Potassium Chloride Carbon Dioxide Anion Gap BUN Creatinine Estim Creat Clear Calc Estimated GFR POC Glucose 208 H 276 H Random Glucose Lactic Acid Lactic Acid F/U @ 2Hr Calcium Phosphorus Magnesium Total Bilirubin Direct Bilirubin AST ALT Alkaline Phosphatase Lactate Dehydrogenase Troponin I High Sens B-Natriuretic Peptide Total Protein Albumin Vitamin K1 Hold Yellow Top Urine Color Urine Appearance Urine pH Ur Specific [place] Urine Protein Urine Glucose (UA) Urine Ketones Urine Blood Urine Nitrite Ur Leukocyte Esterase Urine RBC Urine WBC Ur Squamous Epith Cells Urine Bacteria Hyaline Casts Bronchial Fluid WBC Bronchial Fluid RBC Bronchial Lymphocytes Bronchial Other Cells Stool Occult Blood Stl C. cayetanensis PCR Stool Rotavirus A PCR Stl Adenov F 40/41 PCR Stool Astrovirus (PCR) Stool Campylobacter PCR Stool Cryptosporidium PCR Stl Sh Tox Pr E STEC PCR Stool E coli O157 PCR Stl Enterotoxigenic E PCR Stool EPEC (PCR) Stool EAEC (PCR) Stl E. histolytica PCR Stool Giardia Lamblia PCR Stl P. shigelloides PCR Stool Salmonella PCR Stool Sapovirus (PCR) Stl Shigella/EIEC PCR St Y.enterocolitica PCR Stool Vibrio (PCR) Stl Vibrio cholerae PCR Stl Norovirus GI/GII PCR Random Vancomycin IgE Respiratory Panel Alexandra Adenovirus (Rapid PCR) B.pert (TEM-PCR) B.parapertussis DNA PCR C. pneumoniae DNA (PCR) C. difficile Tox B Gene Coronavirus OC43 (PCR) Coronavirus HKU1 (PCR) Coronavirus 229E (PCR) Coronavirus NL63 (PCR) CMV Specimen Source CMV Qnt PCR IU/mL CMV Qnt PCR log IU/mL Human Metapneumovir PCR Influenza A (RT-PCR) Influenza A (H1) PCR Influ A (H1/09) PCR Influenza A (H3) PCR Influenza Type A (PCR) Influenza B (RT-PCR) Influenza Type B (PCR) M. pneumoniae (PCR) Parainfluenza 1 (PCR) Parainfluenza 2 (PCR) Parainfluenza 3 (PCR) Parainfluenza 4 (PCR) Aspergillus Ag (EIA) Aspergillus Index Value RSV (PCR) RSV RNA Qual (PCR) Entero/Rhino (PCR) SARS-CoV-2 RNA (RT-PCR) Beta-(1,3)-D-Glucan B-(1,3)-D-Glucan Intrp Blood Type Antibody Screen Crossmatch 01/21/25 01/21/25 01/21/25 12:41 17:18 18:01 WBC 10.1 13.2 H RBC 3.29 L D 3.16 L Hgb 9.5 L D 9.1 L Hct 26.8 L D 25.5 L MCV 81.5 D 80.7 MCH 28.9 28.8 MCHC 35.4 H 35.7 H RDW 20.4 H 20.9 H Plt Count 159 L 167 MPV 12.0 12.0 Immature Gran % (Auto) Cancelled Cancelled Neut % (Auto) Cancelled Cancelled Lymph % (Auto) Cancelled Cancelled [place] % (Auto) Cancelled Cancelled Eos % (Auto) Cancelled Cancelled Baso % (Auto) Cancelled Cancelled Lymph # (Auto) Cancelled Cancelled [place] # (Auto) Cancelled Cancelled Eos # (Auto) Cancelled Cancelled Baso # (Auto) Cancelled Cancelled Abs Immat Gran (auto) Cancelled Cancelled Absolute Neuts (auto) Cancelled Cancelled Absolute Nucleated RBC 0.000 0.000 Nucleated RBC % (auto) 0.0 0.0 Neutrophils % (Manual) 79 H 71 Band Neutrophils % 3 20 H Lymphocytes % (Manual) 13 L 6 L Atypical Lymphs % (Man) 1 Monocytes % (Manual) 4 2 Eosinophils % (Manual) Basophils % (Manual) Metamyelocytes % 1 Myelocytes % Abs Neuts (Manual) 8.3 12.0 H Lymphocytes # (Manual) 1.3 0.8 L Atyp Lymphs # (Manual) 0.1 Monocytes # (Manual) 0.4 0.3 Eosinophils # (Manual) Basophils # (Manual) Metamyelocytes # 0.1 Myelocytes # Nucleated RBCs Hypersegmented Neuts Smudge Cells PRESENT Toxic Granulation PRESENT Toxic Vacuolation PRESENT Dohle Bodies PRESENT PRESENT Platelet Estimate NORMAL NORMAL Large Platelets Giant Platelets Plt Morphology Comment NORMAL NORMAL RBC Morphology NOTED NOTED Polychromasia Hypochromasia 1+ (5-14) Basophilic Stippling Microcytosis 1+ (5-14) 2+ (15-30) Macrocytosis Target Cells 1+ (5-14) Tear Drop Cells Ovalocytes Stomatocytes Regulo Cells 1+ (0-2) 1+ (0-2) Acanthocytes (Spur) Schistocytes 1+ (0-2) 1+ (0-2) Smear Path Review PT INR APTT Fibrinogen O2 Saturation ABG pH at Pt Temp ABG pCO2 at Pt Temp ABG pO2 at Pt Temp ABG HCO3 ABG Base Excess (Actual) VBG pH VBG pCO2 VBG pO2 VBG HCO3 VBG O2 Saturation VBG Base Excess Sodium 150 H Potassium 3.7 D Chloride 105 Carbon Dioxide 29 Anion Gap 20 BUN 67 H Creatinine 1.71 H Estim Creat Clear Calc 31.3 Estimated GFR 30 POC Glucose 174 H Random Glucose 284 H Lactic Acid Lactic Acid F/U @ 2Hr 1.0 Calcium 7.8 L Phosphorus Magnesium Total Bilirubin Direct Bilirubin AST ALT Alkaline Phosphatase Lactate Dehydrogenase Troponin I High Sens B-Natriuretic Peptide Total Protein Albumin Vitamin K1 Hold Yellow Top Urine Color Urine Appearance Urine pH Ur Specific [place] Urine Protein Urine Glucose (UA) Urine Ketones Urine Blood Urine Nitrite Ur Leukocyte Esterase Urine RBC Urine WBC Ur Squamous Epith Cells Urine Bacteria Hyaline Casts Bronchial Fluid WBC Bronchial Fluid RBC Bronchial Lymphocytes Bronchial Other Cells Stool Occult Blood Stl C. cayetanensis PCR Stool Rotavirus A PCR Stl Adenov F 40/41 PCR Stool Astrovirus (PCR) Stool Campylobacter PCR Stool Cryptosporidium PCR Stl Sh Tox Pr E STEC PCR Stool E coli O157 PCR Stl Enterotoxigenic E PCR Stool EPEC (PCR) Stool EAEC (PCR) Stl E. histolytica PCR Stool Giardia Lamblia PCR Stl P. shigelloides PCR Stool Salmonella PCR Stool Sapovirus (PCR) Stl Shigella/EIEC PCR St Y.enterocolitica PCR Stool Vibrio (PCR) Stl Vibrio cholerae PCR Stl Norovirus GI/GII PCR Random Vancomycin IgE Respiratory Panel Alexandra Adenovirus (Rapid PCR) B.pert (TEM-PCR) B.parapertussis DNA PCR C. pneumoniae DNA (PCR) C. difficile Tox B Gene Coronavirus OC43 (PCR) Coronavirus HKU1 (PCR) Coronavirus 229E (PCR) Coronavirus NL63 (PCR) CMV Specimen Source CMV Qnt PCR IU/mL CMV Qnt PCR log IU/mL Human Metapneumovir PCR Influenza A (RT-PCR) Influenza A (H1) PCR Influ A (H1/09) PCR Influenza A (H3) PCR Influenza Type A (PCR) Influenza B (RT-PCR) Influenza Type B (PCR) M. pneumoniae (PCR) Parainfluenza 1 (PCR) Parainfluenza 2 (PCR) Parainfluenza 3 (PCR) Parainfluenza 4 (PCR) Aspergillus Ag (EIA) Aspergillus Index Value RSV (PCR) RSV RNA Qual (PCR) Entero/Rhino (PCR) SARS-CoV-2 RNA (RT-PCR) Beta-(1,3)-D-Glucan B-(1,3)-D-Glucan Intrp Blood Type Antibody Screen Crossmatch 01/21/25 01/22/25 01/22/25 23:49 00:24 05:08 WBC 11.3 H 11.5 H RBC 2.89 L 2.74 L Hgb 8.4 L 7.9 L Hct 23.7 L 22.5 L MCV 82.0 82.1 MCH 29.1 28.8 MCHC 35.4 H 35.1 H RDW 21.3 H 21.7 H Plt Count 167 189 MPV 11.3 11.8 Immature Gran % (Auto) Cancelled Neut % (Auto) Cancelled Lymph % (Auto) Cancelled [place] % (Auto) Cancelled Eos % (Auto) Cancelled Baso % (Auto) Cancelled Lymph # (Auto) Cancelled [place] # (Auto) Cancelled Eos # (Auto) Cancelled Baso # (Auto) Cancelled Abs Immat Gran (auto) Cancelled Absolute Neuts (auto) Cancelled Absolute Nucleated RBC 0.000 0.000 Nucleated RBC % (auto) 0.0 0.0 Neutrophils % (Manual) 73 Band Neutrophils % 10 H Lymphocytes % (Manual) 14 L Atypical Lymphs % (Man) Monocytes % (Manual) 2 Eosinophils % (Manual) Basophils % (Manual) Metamyelocytes % 1 Myelocytes % Abs Neuts (Manual) 9.5 H Lymphocytes # (Manual) 1.6 Atyp Lymphs # (Manual) Monocytes # (Manual) 0.2 Eosinophils # (Manual) Basophils # (Manual) Metamyelocytes # 0.1 Myelocytes # Nucleated RBCs Hypersegmented Neuts Smudge Cells PRESENT Toxic Granulation PRESENT Toxic Vacuolation PRESENT Dohle Bodies PRESENT Platelet Estimate NORMAL Large Platelets PRESENT Giant Platelets Plt Morphology Comment NOTED RBC Morphology NOTED Polychromasia 1+ (0-2) Hypochromasia 3+ (>30) Basophilic Stippling 1+ (0-2) Microcytosis 2+ (15-30) Macrocytosis Target Cells 1+ (5-14) Tear Drop Cells 1+ (0-2) Ovalocytes 1+ (5-14) Stomatocytes 1+ (5-14) Regulo Cells 2+ (3-5) Acanthocytes (Spur) 2+ (3-5) Schistocytes 2+ (3-5) Smear Path Review PT 13.0 H D INR 1.1 APTT 28.4 Fibrinogen O2 Saturation ABG pH at Pt Temp ABG pCO2 at Pt Temp ABG pO2 at Pt Temp ABG HCO3 ABG Base Excess (Actual) VBG pH VBG pCO2 VBG pO2 VBG HCO3 VBG O2 Saturation VBG Base Excess Sodium 155 H Potassium 2.8 L* D Chloride 109 H Carbon Dioxide 27 Anion Gap 22 H BUN 63 H Creatinine 1.63 H Estim Creat Clear Calc 32.8 Estimated GFR 32 POC Glucose 214 H Random Glucose 203 H Lactic Acid Lactic Acid F/U @ 2Hr Calcium 8.0 L Phosphorus 4.3 Magnesium 2.4 Total Bilirubin 0.8 Direct Bilirubin AST 41 H ALT 18 Alkaline Phosphatase 132 H Lactate Dehydrogenase Troponin I High Sens B-Natriuretic Peptide Total Protein 4.6 L Albumin 2.9 L Vitamin K1 Hold Yellow Top Urine Color Urine Appearance Urine pH Ur Specific [place] Urine Protein Urine Glucose (UA) Urine Ketones Urine Blood Urine Nitrite Ur Leukocyte Esterase Urine RBC Urine WBC Ur Squamous Epith Cells Urine Bacteria Hyaline Casts Bronchial Fluid WBC Bronchial Fluid RBC Bronchial Lymphocytes Bronchial Other Cells Stool Occult Blood Stl C. cayetanensis PCR Stool Rotavirus A PCR Stl Adenov F 40/41 PCR Stool Astrovirus (PCR) Stool Campylobacter PCR Stool Cryptosporidium PCR Stl Sh Tox Pr E STEC PCR Stool E coli O157 PCR Stl Enterotoxigenic E PCR Stool EPEC (PCR) Stool EAEC (PCR) Stl E. histolytica PCR Stool Giardia Lamblia PCR Stl P. shigelloides PCR Stool Salmonella PCR Stool Sapovirus (PCR) Stl Shigella/EIEC PCR St Y.enterocolitica PCR Stool Vibrio (PCR) Stl Vibrio cholerae PCR Stl Norovirus GI/GII PCR Random Vancomycin IgE Respiratory Panel Alexandra Adenovirus (Rapid PCR) B.pert (TEM-PCR) B.parapertussis DNA PCR C. pneumoniae DNA (PCR) C. difficile Tox B Gene Coronavirus OC43 (PCR) Coronavirus HKU1 (PCR) Coronavirus 229E (PCR) Coronavirus NL63 (PCR) CMV Specimen Source CMV Qnt PCR IU/mL CMV Qnt PCR log IU/mL Human Metapneumovir PCR Influenza A (RT-PCR) Influenza A (H1) PCR Influ A (H1/09) PCR Influenza A (H3) PCR Influenza Type A (PCR) Influenza B (RT-PCR) Influenza Type B (PCR) M. pneumoniae (PCR) Parainfluenza 1 (PCR) Parainfluenza 2 (PCR) Parainfluenza 3 (PCR) Parainfluenza 4 (PCR) Aspergillus Ag (EIA) Aspergillus Index Value RSV (PCR) RSV RNA Qual (PCR) Entero/Rhino (PCR) SARS-CoV-2 RNA (RT-PCR) Beta-(1,3)-D-Glucan B-(1,3)-D-Glucan Intrp Blood Type Antibody Screen Crossmatch 01/22/25 01/22/25 01/22/25 05:19 06:03 11:22 WBC RBC Hgb Hct MCV MCH MCHC RDW Plt Count MPV Immature Gran % (Auto) Neut % (Auto) Lymph % (Auto) [place] % (Auto) Eos % (Auto) Baso % (Auto) Lymph # (Auto) [place] # (Auto) Eos # (Auto) Baso # (Auto) Abs Immat Gran (auto) Absolute Neuts (auto) Absolute Nucleated RBC Nucleated RBC % (auto) Neutrophils % (Manual) Band Neutrophils % Lymphocytes % (Manual) Atypical Lymphs % (Man) Monocytes % (Manual) Eosinophils % (Manual) Basophils % (Manual) Metamyelocytes % Myelocytes % Abs Neuts (Manual) Lymphocytes # (Manual) Atyp Lymphs # (Manual) Monocytes # (Manual) Eosinophils # (Manual) Basophils # (Manual) Metamyelocytes # Myelocytes # Nucleated RBCs Hypersegmented Neuts Smudge Cells Toxic Granulation Toxic Vacuolation Dohle Bodies Platelet Estimate Large Platelets Giant Platelets Plt Morphology Comment RBC Morphology Polychromasia Hypochromasia Basophilic Stippling Microcytosis Macrocytosis Target Cells Tear Drop Cells Ovalocytes Stomatocytes Regulo Cells Acanthocytes (Spur) Schistocytes Smear Path Review PT INR APTT Fibrinogen O2 Saturation ABG pH at Pt Temp ABG pCO2 at Pt Temp ABG pO2 at Pt Temp ABG HCO3 ABG Base Excess (Actual) VBG pH 7.53 H VBG pCO2 36 VBG pO2 47 VBG HCO3 30 H VBG O2 Saturation 76.0 VBG Base Excess 7.8 Sodium Potassium Chloride Carbon Dioxide Anion Gap BUN Creatinine Estim Creat Clear Calc Estimated GFR POC Glucose 201 H 142 H Random Glucose Lactic Acid Lactic Acid F/U @ 2Hr Calcium Phosphorus Magnesium Total Bilirubin Direct Bilirubin AST ALT Alkaline Phosphatase Lactate Dehydrogenase Troponin I High Sens B-Natriuretic Peptide Total Protein Albumin Vitamin K1 Hold Yellow Top Urine Color Urine Appearance Urine pH Ur Specific [place] Urine Protein Urine Glucose (UA) Urine Ketones Urine Blood Urine Nitrite Ur Leukocyte Esterase Urine RBC Urine WBC Ur Squamous Epith Cells Urine Bacteria Hyaline Casts Bronchial Fluid WBC Bronchial Fluid RBC Bronchial Lymphocytes Bronchial Other Cells Stool Occult Blood Stl C. cayetanensis PCR Stool Rotavirus A PCR Stl Adenov F 40/41 PCR Stool Astrovirus (PCR) Stool Campylobacter PCR Stool Cryptosporidium PCR Stl Sh Tox Pr E STEC PCR Stool E coli O157 PCR Stl Enterotoxigenic E PCR Stool EPEC (PCR) Stool EAEC (PCR) Stl E. histolytica PCR Stool Giardia Lamblia PCR Stl P. shigelloides PCR Stool Salmonella PCR Stool Sapovirus (PCR) Stl Shigella/EIEC PCR St Y.enterocolitica PCR Stool Vibrio (PCR) Stl Vibrio cholerae PCR Stl Norovirus GI/GII PCR Random Vancomycin IgE Respiratory Panel Alexandra Adenovirus (Rapid PCR) B.pert (TEM-PCR) B.parapertussis DNA PCR C. pneumoniae DNA (PCR) C. difficile Tox B Gene Coronavirus OC43 (PCR) Coronavirus HKU1 (PCR) Coronavirus 229E (PCR) Coronavirus NL63 (PCR) CMV Specimen Source CMV Qnt PCR IU/mL CMV Qnt PCR log IU/mL Human Metapneumovir PCR Influenza A (RT-PCR) Influenza A (H1) PCR Influ A (H1/09) PCR Influenza A (H3) PCR Influenza Type A (PCR) Influenza B (RT-PCR) Influenza Type B (PCR) M. pneumoniae (PCR) Parainfluenza 1 (PCR) Parainfluenza 2 (PCR) Parainfluenza 3 (PCR) Parainfluenza 4 (PCR) Aspergillus Ag (EIA) Aspergillus Index Value RSV (PCR) RSV RNA Qual (PCR) Entero/Rhino (PCR) SARS-CoV-2 RNA (RT-PCR) Beta-(1,3)-D-Glucan B-(1,3)-D-Glucan Intrp Blood Type Antibody Screen Crossmatch 01/22/25 01/22/25 01/22/25 17:20 19:52 23:26 WBC 5.0 RBC 1.86 L D Hgb 5.4 L* D Hct 16.4 L* D MCV 88.2 D MCH 29.0 MCHC 32.9 RDW 22.5 H Plt Count 204 MPV 11.0 Immature Gran % (Auto) Cancelled Neut % (Auto) Cancelled Lymph % (Auto) Cancelled [place] % (Auto) Cancelled Eos % (Auto) Cancelled Baso % (Auto) Cancelled Lymph # (Auto) Cancelled [place] # (Auto) Cancelled Eos # (Auto) Cancelled Baso # (Auto) Cancelled Abs Immat Gran (auto) Cancelled Absolute Neuts (auto) Cancelled Absolute Nucleated RBC 0.000 Nucleated RBC % (auto) 0.0 Neutrophils % (Manual) 86 H Band Neutrophils % 2 L Lymphocytes % (Manual) 12 L Atypical Lymphs % (Man) Monocytes % (Manual) Eosinophils % (Manual) Basophils % (Manual) Metamyelocytes % Myelocytes % Abs Neuts (Manual) 4.4 Lymphocytes # (Manual) 0.6 L Atyp Lymphs # (Manual) Monocytes # (Manual) Eosinophils # (Manual) Basophils # (Manual) Metamyelocytes # Myelocytes # Nucleated RBCs Hypersegmented Neuts Smudge Cells Toxic Granulation Toxic Vacuolation Dohle Bodies Platelet Estimate NORMAL Large Platelets Giant Platelets Plt Morphology Comment NORMAL RBC Morphology NOTED Polychromasia Hypochromasia Basophilic Stippling Microcytosis 2+ (15-30) Macrocytosis Target Cells Tear Drop Cells Ovalocytes 1+ (5-14) Stomatocytes Tilly Cells Acanthocytes (Spur) Schistocytes 1+ (0-2) Smear Path Review PT INR APTT Fibrinogen O2 Saturation ABG pH at Pt Temp ABG pCO2 at Pt Temp ABG pO2 at Pt Temp ABG HCO3 ABG Base Excess (Actual) VBG pH VBG pCO2 VBG pO2 VBG HCO3 VBG O2 Saturation VBG Base Excess Sodium Potassium Chloride Carbon Dioxide Anion Gap BUN Creatinine Estim Creat Clear Calc Estimated GFR POC Glucose 270 H 291 H Random Glucose Lactic Acid Lactic Acid F/U @ 2Hr Calcium Phosphorus Magnesium Total Bilirubin Direct Bilirubin AST ALT Alkaline Phosphatase Lactate Dehydrogenase Troponin I High Sens B-Natriuretic Peptide Total Protein Albumin Vitamin K1 Hold Yellow Top Urine Color Urine Appearance Urine pH Ur Specific [place] Urine Protein Urine Glucose (UA) Urine Ketones Urine Blood Urine Nitrite Ur Leukocyte Esterase Urine RBC Urine WBC Ur Squamous Epith Cells Urine Bacteria Hyaline Casts Bronchial Fluid WBC Bronchial Fluid RBC Bronchial Lymphocytes Bronchial Other Cells Stool Occult Blood Stl C. cayetanensis PCR Stool Rotavirus A PCR Stl Adenov F 40/41 PCR Stool Astrovirus (PCR) Stool Campylobacter PCR Stool Cryptosporidium PCR Stl Sh Tox Pr E STEC PCR Stool E coli O157 PCR Stl Enterotoxigenic E PCR Stool EPEC (PCR) Stool EAEC (PCR) Stl E. histolytica PCR Stool Giardia Lamblia PCR Stl P. shigelloides PCR Stool Salmonella PCR Stool Sapovirus (PCR) Stl Shigella/EIEC PCR St Y.enterocolitica PCR Stool Vibrio (PCR) Stl Vibrio cholerae PCR Stl Norovirus GI/GII PCR Random Vancomycin IgE Respiratory Panel Alexandra Adenovirus (Rapid PCR) B.pert (TEM-PCR) B.parapertussis DNA PCR C. pneumoniae DNA (PCR) C. difficile Tox B Gene Coronavirus OC43 (PCR) Coronavirus HKU1 (PCR) Coronavirus 229E (PCR) Coronavirus NL63 (PCR) CMV Specimen Source CMV Qnt PCR IU/mL CMV Qnt PCR log IU/mL Human Metapneumovir PCR Influenza A (RT-PCR) Influenza A (H1) PCR Influ A (H1/09) PCR Influenza A (H3) PCR Influenza Type A (PCR) Influenza B (RT-PCR) Influenza Type B (PCR) M. pneumoniae (PCR) Parainfluenza 1 (PCR) Parainfluenza 2 (PCR) Parainfluenza 3 (PCR) Parainfluenza 4 (PCR) Aspergillus Ag (EIA) Aspergillus Index Value RSV (PCR) RSV RNA Qual (PCR) Entero/Rhino (PCR) SARS-CoV-2 RNA (RT-PCR) Beta-(1,3)-D-Glucan B-(1,3)-D-Glucan Intrp Blood Type Antibody Screen Crossmatch 01/22/25 01/23/25 01/23/25 23:49 04:50 05:08 WBC 6.0 RBC 2.48 L D Hgb 7.2 L D Hct 21.9 L D MCV 88.3 MCH 29.0 MCHC 32.9 RDW 19.5 H Plt Count 235 MPV 11.2 Immature Gran % (Auto) Cancelled Neut % (Auto) Cancelled Lymph % (Auto) Cancelled [place] % (Auto) Cancelled Eos % (Auto) Cancelled Baso % (Auto) Cancelled Lymph # (Auto) Cancelled [place] # (Auto) Cancelled Eos # (Auto) Cancelled Baso # (Auto) Cancelled Abs Immat Gran (auto) Cancelled Absolute Neuts (auto) Cancelled Absolute Nucleated RBC 0.000 Nucleated RBC % (auto) 0.0 Neutrophils % (Manual) 83 H Band Neutrophils % 3 Lymphocytes % (Manual) 12 L Atypical Lymphs % (Man) Monocytes % (Manual) 2 Eosinophils % (Manual) Basophils % (Manual) Metamyelocytes % Myelocytes % Abs Neuts (Manual) 5.2 Lymphocytes # (Manual) 0.7 L Atyp Lymphs # (Manual) Monocytes # (Manual) 0.1 Eosinophils # (Manual) Basophils # (Manual) Metamyelocytes # Myelocytes # Nucleated RBCs Hypersegmented Neuts Smudge Cells Toxic Granulation Toxic Vacuolation Dohle Bodies Platelet Estimate NORMAL Large Platelets Giant Platelets Plt Morphology Comment NORMAL RBC Morphology NOTED Polychromasia 1+ (0-2) Hypochromasia Basophilic Stippling Microcytosis Macrocytosis Target Cells Tear Drop Cells Ovalocytes Stomatocytes Regulo Cells 1+ (0-2) Acanthocytes (Spur) 2+ (3-5) Schistocytes Smear Path Review PT INR APTT Fibrinogen O2 Saturation ABG pH at Pt Temp ABG pCO2 at Pt Temp ABG pO2 at Pt Temp ABG HCO3 ABG Base Excess (Actual) VBG pH 7.41 VBG pCO2 28 VBG pO2 55 VBG HCO3 18 L VBG O2 Saturation 85.0 VBG Base Excess -5.4 Sodium 155 H Potassium 4.1 D Chloride 113 H Carbon Dioxide 17 L Anion Gap 29 H BUN 54 H Creatinine 1.71 H Estim Creat Clear Calc 31.7 Estimated GFR 30 POC Glucose 280 H Random Glucose 390 H* Lactic Acid Lactic Acid F/U @ 2Hr Calcium 9.1 D Phosphorus 3.7 Magnesium 2.7 H Total Bilirubin 0.9 Direct Bilirubin AST 35 H ALT < 6 Alkaline Phosphatase 92 Lactate Dehydrogenase Troponin I High Sens B-Natriuretic Peptide Total Protein 5.7 L Albumin 4.3 Vitamin K1 Hold Yellow Top Urine Color Urine Appearance Urine pH Ur Specific [place] Urine Protein Urine Glucose (UA) Urine Ketones Urine Blood Urine Nitrite Ur Leukocyte Esterase Urine RBC Urine WBC Ur Squamous Epith Cells Urine Bacteria Hyaline Casts Bronchial Fluid WBC Bronchial Fluid RBC Bronchial Lymphocytes Bronchial Other Cells Stool Occult Blood Stl C. cayetanensis PCR Stool Rotavirus A PCR Stl Adenov F 40/41 PCR Stool Astrovirus (PCR) Stool Campylobacter PCR Stool Cryptosporidium PCR Stl Sh Tox Pr E STEC PCR Stool E coli O157 PCR Stl Enterotoxigenic E PCR Stool EPEC (PCR) Stool EAEC (PCR) Stl E. histolytica PCR Stool Giardia Lamblia PCR Stl P. shigelloides PCR Stool Salmonella PCR Stool Sapovirus (PCR) Stl Shigella/EIEC PCR St Y.enterocolitica PCR Stool Vibrio (PCR) Stl Vibrio cholerae PCR Stl Norovirus GI/GII PCR Random Vancomycin IgE Respiratory Panel Alexandra Adenovirus (Rapid PCR) B.pert (TEM-PCR) B.parapertussis DNA PCR C. pneumoniae DNA (PCR) C. difficile Tox B Gene Coronavirus OC43 (PCR) Coronavirus HKU1 (PCR) Coronavirus 229E (PCR) Coronavirus NL63 (PCR) CMV Specimen Source CMV Qnt PCR IU/mL CMV Qnt PCR log IU/mL Human Metapneumovir PCR Influenza A (RT-PCR) Influenza A (H1) PCR Influ A (H1/09) PCR Influenza A (H3) PCR Influenza Type A (PCR) Influenza B (RT-PCR) Influenza Type B (PCR) M. pneumoniae (PCR) Parainfluenza 1 (PCR) Parainfluenza 2 (PCR) Parainfluenza 3 (PCR) Parainfluenza 4 (PCR) Aspergillus Ag (EIA) Aspergillus Index Value RSV (PCR) RSV RNA Qual (PCR) Entero/Rhino (PCR) SARS-CoV-2 RNA (RT-PCR) Beta-(1,3)-D-Glucan B-(1,3)-D-Glucan Intrp Blood Type Antibody Screen Crossmatch 01/23/25 01/23/25 01/23/25 11:25 17:52 17:54 WBC RBC Hgb Hct MCV MCH MCHC RDW Plt Count MPV Immature Gran % (Auto) Neut % (Auto) Lymph % (Auto) [place] % (Auto) Eos % (Auto) Baso % (Auto) Lymph # (Auto) [place] # (Auto) Eos # (Auto) Baso # (Auto) Abs Immat Gran (auto) Absolute Neuts (auto) Absolute Nucleated RBC Nucleated RBC % (auto) Neutrophils % (Manual) Band Neutrophils % Lymphocytes % (Manual) Atypical Lymphs % (Man) Monocytes % (Manual) Eosinophils % (Manual) Basophils % (Manual) Metamyelocytes % Myelocytes % Abs Neuts (Manual) Lymphocytes # (Manual) Atyp Lymphs # (Manual) Monocytes # (Manual) Eosinophils # (Manual) Basophils # (Manual) Metamyelocytes # Myelocytes # Nucleated RBCs Hypersegmented Neuts Smudge Cells Toxic Granulation Toxic Vacuolation Dohle Bodies Platelet Estimate Large Platelets Giant Platelets Plt Morphology Comment RBC Morphology Polychromasia Hypochromasia Basophilic Stippling Microcytosis Macrocytosis Target Cells Tear Drop Cells Ovalocytes Stomatocytes Tilly Cells Acanthocytes (Spur) Schistocytes Smear Path Review PT INR APTT Fibrinogen O2 Saturation ABG pH at Pt Temp ABG pCO2 at Pt Temp ABG pO2 at Pt Temp ABG HCO3 ABG Base Excess (Actual) VBG pH VBG pCO2 VBG pO2 VBG HCO3 VBG O2 Saturation VBG Base Excess Sodium Potassium Chloride Carbon Dioxide Anion Gap BUN Creatinine Estim Creat Clear Calc Estimated GFR POC Glucose 538 H* > 600 H* 551 H* Random Glucose Lactic Acid Lactic Acid F/U @ 2Hr Calcium Phosphorus Magnesium Total Bilirubin Direct Bilirubin AST ALT Alkaline Phosphatase Lactate Dehydrogenase Troponin I High Sens B-Natriuretic Peptide Total Protein Albumin Vitamin K1 Hold Yellow Top Urine Color Urine Appearance Urine pH Ur Specific [place] Urine Protein Urine Glucose (UA) Urine Ketones Urine Blood Urine Nitrite Ur Leukocyte Esterase Urine RBC Urine WBC Ur Squamous Epith Cells Urine Bacteria Hyaline Casts Bronchial Fluid WBC Bronchial Fluid RBC Bronchial Lymphocytes Bronchial Other Cells Stool Occult Blood Stl C. cayetanensis PCR Stool Rotavirus A PCR Stl Adenov F 40/41 PCR Stool Astrovirus (PCR) Stool Campylobacter PCR Stool Cryptosporidium PCR Stl Sh Tox Pr E STEC PCR Stool E coli O157 PCR Stl Enterotoxigenic E PCR Stool EPEC (PCR) Stool EAEC (PCR) Stl E. histolytica PCR Stool Giardia Lamblia PCR Stl P. shigelloides PCR Stool Salmonella PCR Stool Sapovirus (PCR) Stl Shigella/EIEC PCR St Y.enterocolitica PCR Stool Vibrio (PCR) Stl Vibrio cholerae PCR Stl Norovirus GI/GII PCR Random Vancomycin IgE Respiratory Panel Alexandra Adenovirus (Rapid PCR) B.pert (TEM-PCR) B.parapertussis DNA PCR C. pneumoniae DNA (PCR) C. difficile Tox B Gene Coronavirus OC43 (PCR) Coronavirus HKU1 (PCR) Coronavirus 229E (PCR) Coronavirus NL63 (PCR) CMV Specimen Source CMV Qnt PCR IU/mL CMV Qnt PCR log IU/mL Human Metapneumovir PCR Influenza A (RT-PCR) Influenza A (H1) PCR Influ A (H1/09) PCR Influenza A (H3) PCR Influenza Type A (PCR) Influenza B (RT-PCR) Influenza Type B (PCR) M. pneumoniae (PCR) Parainfluenza 1 (PCR) Parainfluenza 2 (PCR) Parainfluenza 3 (PCR) Parainfluenza 4 (PCR) Aspergillus Ag (EIA) Aspergillus Index Value RSV (PCR) RSV RNA Qual (PCR) Entero/Rhino (PCR) SARS-CoV-2 RNA (RT-PCR) Beta-(1,3)-D-Glucan B-(1,3)-D-Glucan Intrp Blood Type Antibody Screen Crossmatch 01/23/25 01/24/25 01/24/25 23:42 04:51 04:58 WBC 10.2 RBC 2.61 L Hgb 7.9 L Hct 22.4 L MCV 85.8 MCH 30.3 MCHC 35.3 H RDW 19.3 H Plt Count 318 D MPV 10.6 Immature Gran % (Auto) 2.1 H Neut % (Auto) 82.0 H Lymph % (Auto) 12.1 L [place] % (Auto) 3.7 Eos % (Auto) 0.0 Baso % (Auto) 0.1 Lymph # (Auto) 1.2 [place] # (Auto) 0.4 Eos # (Auto) 0.0 Baso # (Auto) 0.0 Abs Immat Gran (auto) 0.21 H Absolute Neuts (auto) 8.4 H Absolute Nucleated RBC 0.000 Nucleated RBC % (auto) 0.0 Neutrophils % (Manual) Band Neutrophils % Lymphocytes % (Manual) Atypical Lymphs % (Man) Monocytes % (Manual) Eosinophils % (Manual) Basophils % (Manual) Metamyelocytes % Myelocytes % Abs Neuts (Manual) Lymphocytes # (Manual) Atyp Lymphs # (Manual) Monocytes # (Manual) Eosinophils # (Manual) Basophils # (Manual) Metamyelocytes # Myelocytes # Nucleated RBCs Hypersegmented Neuts Smudge Cells Toxic Granulation Toxic Vacuolation Dohle Bodies Platelet Estimate Large Platelets Giant Platelets Plt Morphology Comment RBC Morphology Polychromasia Hypochromasia Basophilic Stippling Microcytosis Macrocytosis Target Cells Tear Drop Cells Ovalocytes Stomatocytes Regulo Cells Acanthocytes (Spur) Schistocytes Smear Path Review PT INR APTT Fibrinogen O2 Saturation ABG pH at Pt Temp ABG pCO2 at Pt Temp ABG pO2 at Pt Temp ABG HCO3 ABG Base Excess (Actual) VBG pH 7.54 H VBG pCO2 35 VBG pO2 60 VBG HCO3 30 H VBG O2 Saturation 92.0 VBG Base Excess 8.0 Sodium 150 H Potassium 3.0 L D Chloride 110 H Carbon Dioxide 27 Anion Gap 16 BUN 46 H Creatinine 1.30 Estim Creat Clear Calc 41.3 Estimated GFR 42 POC Glucose 478 H* Random Glucose 332 H Lactic Acid Lactic Acid F/U @ 2Hr Calcium 8.5 D Phosphorus 1.4 L Magnesium 2.5 Total Bilirubin Direct Bilirubin AST ALT Alkaline Phosphatase Lactate Dehydrogenase Troponin I High Sens B-Natriuretic Peptide Total Protein Albumin 3.6 Vitamin K1 Hold Yellow Top Urine Color Urine Appearance Urine pH Ur Specific [place] Urine Protein Urine Glucose (UA) Urine Ketones Urine Blood Urine Nitrite Ur Leukocyte Esterase Urine RBC Urine WBC Ur Squamous Epith Cells Urine Bacteria Hyaline Casts Bronchial Fluid WBC Bronchial Fluid RBC Bronchial Lymphocytes Bronchial Other Cells Stool Occult Blood Stl C. cayetanensis PCR Stool Rotavirus A PCR Stl Adenov F 40/41 PCR Stool Astrovirus (PCR) Stool Campylobacter PCR Stool Cryptosporidium PCR Stl Sh Tox Pr E STEC PCR Stool E coli O157 PCR Stl Enterotoxigenic E PCR Stool EPEC (PCR) Stool EAEC (PCR) Stl E. histolytica PCR Stool Giardia Lamblia PCR Stl P. shigelloides PCR Stool Salmonella PCR Stool Sapovirus (PCR) Stl Shigella/EIEC PCR St Y.enterocolitica PCR Stool Vibrio (PCR) Stl Vibrio cholerae PCR Stl Norovirus GI/GII PCR Random Vancomycin IgE Respiratory Panel Alexandra Adenovirus (Rapid PCR) B.pert (TEM-PCR) B.parapertussis DNA PCR C. pneumoniae DNA (PCR) C. difficile Tox B Gene Coronavirus OC43 (PCR) Coronavirus HKU1 (PCR) Coronavirus 229E (PCR) Coronavirus NL63 (PCR) CMV Specimen Source CMV Qnt PCR IU/mL CMV Qnt PCR log IU/mL Human Metapneumovir PCR Influenza A (RT-PCR) Influenza A (H1) PCR Influ A (H1/09) PCR Influenza A (H3) PCR Influenza Type A (PCR) Influenza B (RT-PCR) Influenza Type B (PCR) M. pneumoniae (PCR) Parainfluenza 1 (PCR) Parainfluenza 2 (PCR) Parainfluenza 3 (PCR) Parainfluenza 4 (PCR) Aspergillus Ag (EIA) Aspergillus Index Value RSV (PCR) RSV RNA Qual (PCR) Entero/Rhino (PCR) SARS-CoV-2 RNA (RT-PCR) Beta-(1,3)-D-Glucan B-(1,3)-D-Glucan Intrp Blood Type Antibody Screen Crossmatch 01/24/25 01/24/25 01/24/25 05:28 11:14 17:52 WBC RBC Hgb Hct MCV MCH MCHC RDW Plt Count MPV Immature Gran % (Auto) Neut % (Auto) Lymph % (Auto) [place] % (Auto) Eos % (Auto) Baso % (Auto) Lymph # (Auto) [place] # (Auto) Eos # (Auto) Baso # (Auto) Abs Immat Gran (auto) Absolute Neuts (auto) Absolute Nucleated RBC Nucleated RBC % (auto) Neutrophils % (Manual) Band Neutrophils % Lymphocytes % (Manual) Atypical Lymphs % (Man) Monocytes % (Manual) Eosinophils % (Manual) Basophils % (Manual) Metamyelocytes % Myelocytes % Abs Neuts (Manual) Lymphocytes # (Manual) Atyp Lymphs # (Manual) Monocytes # (Manual) Eosinophils # (Manual) Basophils # (Manual) Metamyelocytes # Myelocytes # Nucleated RBCs Hypersegmented Neuts Smudge Cells Toxic Granulation Toxic Vacuolation Dohle Bodies Platelet Estimate Large Platelets Giant Platelets Plt Morphology Comment RBC Morphology Polychromasia Hypochromasia Basophilic Stippling Microcytosis Macrocytosis Target Cells Tear Drop Cells Ovalocytes Stomatocytes [place]illy Cells Acanthocytes (Spur) Schistocytes Smear Path Review PT INR APTT Fibrinogen O2 Saturation ABG pH at Pt Temp ABG pCO2 at Pt Temp ABG pO2 at Pt Temp ABG HCO3 ABG Base Excess (Actual) VBG pH VBG pCO2 VBG pO2 VBG HCO3 VBG O2 Saturation VBG Base Excess Sodium Potassium Chloride Carbon Dioxide Anion Gap BUN Creatinine Estim Creat Clear Calc Estimated GFR POC Glucose 350 H* 181 H 44 L* Random Glucose Lactic Acid Lactic Acid F/U @ 2Hr Calcium Phosphorus Magnesium Total Bilirubin Direct Bilirubin AST ALT Alkaline Phosphatase Lactate Dehydrogenase Troponin I High Sens B-Natriuretic Peptide Total Protein Albumin Vitamin K1 Hold Yellow Top Urine Color Urine Appearance Urine pH Ur Specific [place] Urine Protein Urine Glucose (UA) Urine Ketones Urine Blood Urine Nitrite Ur Leukocyte Esterase Urine RBC Urine WBC Ur Squamous Epith Cells Urine Bacteria Hyaline Casts Bronchial Fluid WBC Bronchial Fluid RBC Bronchial Lymphocytes Bronchial Other Cells Stool Occult Blood Stl C. cayetanensis PCR Stool Rotavirus A PCR Stl Adenov F 40/41 PCR Stool Astrovirus (PCR) Stool Campylobacter PCR Stool Cryptosporidium PCR Stl Sh Tox Pr E STEC PCR Stool E coli O157 PCR Stl Enterotoxigenic E PCR Stool EPEC (PCR) Stool EAEC (PCR) Stl E. histolytica PCR Stool Giardia Lamblia PCR Stl P. shigelloides PCR Stool Salmonella PCR Stool Sapovirus (PCR) Stl Shigella/EIEC PCR St Y.enterocolitica PCR Stool Vibrio (PCR) Stl Vibrio cholerae PCR Stl Norovirus GI/GII PCR Random Vancomycin IgE Respiratory Panel Alexandra Adenovirus (Rapid PCR) B.pert (TEM-PCR) B.parapertussis DNA PCR C. pneumoniae DNA (PCR) C. difficile Tox B Gene Coronavirus OC43 (PCR) Coronavirus HKU1 (PCR) Coronavirus 229E (PCR) Coronavirus NL63 (PCR) CMV Specimen Source CMV Qnt PCR IU/mL CMV Qnt PCR log IU/mL Human Metapneumovir PCR Influenza A (RT-PCR) Influenza A (H1) PCR Influ A (H1/09) PCR Influenza A (H3) PCR Influenza Type A (PCR) Influenza B (RT-PCR) Influenza Type B (PCR) M. pneumoniae (PCR) Parainfluenza 1 (PCR) Parainfluenza 2 (PCR) Parainfluenza 3 (PCR) Parainfluenza 4 (PCR) Aspergillus Ag (EIA) Aspergillus Index Value RSV (PCR) RSV RNA Qual (PCR) Entero/Rhino (PCR) SARS-CoV-2 RNA (RT-PCR) Beta-(1,3)-D-Glucan B-(1,3)-D-Glucan Intrp Blood Type Antibody Screen Crossmatch 01/24/25 01/24/25 01/24/25 17:54 18:09 19:13 WBC RBC Hgb Hct MCV MCH MCHC RDW Plt Count MPV Immature Gran % (Auto) Neut % (Auto) Lymph % (Auto) [place] % (Auto) Eos % (Auto) Baso % (Auto) Lymph # (Auto) [place] # (Auto) Eos # (Auto) Baso # (Auto) Abs Immat Gran (auto) Absolute Neuts (auto) Absolute Nucleated RBC Nucleated RBC % (auto) Neutrophils % (Manual) Band Neutrophils % Lymphocytes % (Manual) Atypical Lymphs % (Man) Monocytes % (Manual) Eosinophils % (Manual) Basophils % (Manual) Metamyelocytes % Myelocytes % Abs Neuts (Manual) Lymphocytes # (Manual) Atyp Lymphs # (Manual) Monocytes # (Manual) Eosinophils # (Manual) Basophils # (Manual) Metamyelocytes # Myelocytes # Nucleated RBCs Hypersegmented Neuts Smudge Cells Toxic Granulation Toxic Vacuolation Dohle Bodies Platelet Estimate Large Platelets Giant Platelets Plt Morphology Comment RBC Morphology Polychromasia Hypochromasia Basophilic Stippling Microcytosis Macrocytosis Target Cells Tear Drop Cells Ovalocytes Stomatocytes Regulo Cells Acanthocytes (Spur) Schistocytes Smear Path Review PT INR APTT Fibrinogen O2 Saturation ABG pH at Pt Temp ABG pCO2 at Pt Temp ABG pO2 at Pt Temp ABG HCO3 ABG Base Excess (Actual) VBG pH VBG pCO2 VBG pO2 VBG HCO3 VBG O2 Saturation VBG Base Excess Sodium Potassium Chloride Carbon Dioxide Anion Gap BUN Creatinine Estim Creat Clear Calc Estimated GFR POC Glucose 50 L* 153 H 89 Random Glucose Lactic Acid Lactic Acid F/U @ 2Hr Calcium Phosphorus Magnesium Total Bilirubin Direct Bilirubin AST ALT Alkaline Phosphatase Lactate Dehydrogenase Troponin I High Sens B-Natriuretic Peptide Total Protein Albumin Vitamin K1 Hold Yellow Top Urine Color Urine Appearance Urine pH Ur Specific [place] Urine Protein Urine Glucose (UA) Urine Ketones Urine Blood Urine Nitrite Ur Leukocyte Esterase Urine RBC Urine WBC Ur Squamous Epith Cells Urine Bacteria Hyaline Casts Bronchial Fluid WBC Bronchial Fluid RBC Bronchial Lymphocytes Bronchial Other Cells Stool Occult Blood Stl C. cayetanensis PCR Stool Rotavirus A PCR Stl Adenov F 40/41 PCR Stool Astrovirus (PCR) Stool Campylobacter PCR Stool Cryptosporidium PCR Stl Sh Tox Pr E STEC PCR Stool E coli O157 PCR Stl Enterotoxigenic E PCR Stool EPEC (PCR) Stool EAEC (PCR) Stl E. histolytica PCR Stool Giardia Lamblia PCR Stl P. shigelloides PCR Stool Salmonella PCR Stool Sapovirus (PCR) Stl Shigella/EIEC PCR St Y.enterocolitica PCR Stool Vibrio (PCR) Stl Vibrio cholerae PCR Stl Norovirus GI/GII PCR Random Vancomycin IgE Respiratory Panel Alexandra Adenovirus (Rapid PCR) B.pert (TEM-PCR) B.parapertussis DNA PCR C. pneumoniae DNA (PCR) C. difficile Tox B Gene Coronavirus OC43 (PCR) Coronavirus HKU1 (PCR) Coronavirus 229E (PCR) Coronavirus NL63 (PCR) CMV Specimen Source CMV Qnt PCR IU/mL CMV Qnt PCR log IU/mL Human Metapneumovir PCR Influenza A (RT-PCR) Influenza A (H1) PCR Influ A (H1/09) PCR Influenza A (H3) PCR Influenza Type A (PCR) Influenza B (RT-PCR) Influenza Type B (PCR) M. pneumoniae (PCR) Parainfluenza 1 (PCR) Parainfluenza 2 (PCR) Parainfluenza 3 (PCR) Parainfluenza 4 (PCR) Aspergillus Ag (EIA) Aspergillus Index Value RSV (PCR) RSV RNA Qual (PCR) Entero/Rhino (PCR) SARS-CoV-2 RNA (RT-PCR) Beta-(1,3)-D-Glucan B-(1,3)-D-Glucan Intrp Blood Type Antibody Screen Crossmatch 01/24/25 01/24/25 01/24/25 20:17 20:25 22:01 WBC RBC Hgb Hct MCV MCH MCHC RDW Plt Count MPV Immature Gran % (Auto) Neut % (Auto) Lymph % (Auto) [place] % (Auto) Eos % (Auto) Baso % (Auto) Lymph # (Auto) [place] # (Auto) Eos # (Auto) Baso # (Auto) Abs Immat Gran (auto) Absolute Neuts (auto) Absolute Nucleated RBC Nucleated RBC % (auto) Neutrophils % (Manual) Band Neutrophils % Lymphocytes % (Manual) Atypical Lymphs % (Man) Monocytes % (Manual) Eosinophils % (Manual) Basophils % (Manual) Metamyelocytes % Myelocytes % Abs Neuts (Manual) Lymphocytes # (Manual) Atyp Lymphs # (Manual) Monocytes # (Manual) Eosinophils # (Manual) Basophils # (Manual) Metamyelocytes # Myelocytes # Nucleated RBCs Hypersegmented Neuts Smudge Cells Toxic Granulation Toxic Vacuolation Dohle Bodies Platelet Estimate Large Platelets Giant Platelets Plt Morphology Comment RBC Morphology Polychromasia Hypochromasia Basophilic Stippling Microcytosis Macrocytosis Target Cells Tear Drop Cells Ovalocytes Stomatocytes Regulo Cells Acanthocytes (Spur) Schistocytes Smear Path Review PT INR APTT Fibrinogen O2 Saturation ABG pH at Pt Temp ABG pCO2 at Pt Temp ABG pO2 at Pt Temp ABG HCO3 ABG Base Excess (Actual) VBG pH 7.63 H* VBG pCO2 27 VBG pO2 145 VBG HCO3 29 H VBG O2 Saturation 99.0 VBG Base Excess 7.9 Sodium 154 H Potassium 3.3 Chloride 118 H Carbon Dioxide 26 Anion Gap 13 BUN 37 H Creatinine 0.79 Estim Creat Clear Calc 68.7 Estimated GFR > 60 POC Glucose 61 Random Glucose 74 Lactic Acid Lactic Acid F/U @ 2Hr Calcium 8.3 L Phosphorus Magnesium Total Bilirubin Direct Bilirubin AST ALT Alkaline Phosphatase Lactate Dehydrogenase Troponin I High Sens B-Natriuretic Peptide Total Protein Albumin Vitamin K1 Hold Yellow Top Urine Color Urine Appearance Urine pH Ur Specific [place] Urine Protein Urine Glucose (UA) Urine Ketones Urine Blood Urine Nitrite Ur Leukocyte Esterase Urine RBC Urine WBC Ur Squamous Epith Cells Urine Bacteria Hyaline Casts Bronchial Fluid WBC Bronchial Fluid RBC Bronchial Lymphocytes Bronchial Other Cells Stool Occult Blood Stl C. cayetanensis PCR Stool Rotavirus A PCR Stl Adenov F 40/41 PCR Stool Astrovirus (PCR) Stool Campylobacter PCR Stool Cryptosporidium PCR Stl Sh Tox Pr E STEC PCR Stool E coli O157 PCR Stl Enterotoxigenic E PCR Stool EPEC (PCR) Stool EAEC (PCR) Stl E. histolytica PCR Stool Giardia Lamblia PCR Stl P. shigelloides PCR Stool Salmonella PCR Stool Sapovirus (PCR) Stl Shigella/EIEC PCR St Y.enterocolitica PCR Stool Vibrio (PCR) Stl Vibrio cholerae PCR Stl Norovirus GI/GII PCR Random Vancomycin IgE Respiratory Panel Alexandra Adenovirus (Rapid PCR) B.pert (TEM-PCR) B.parapertussis DNA PCR C. pneumoniae DNA (PCR) C. difficile Tox B Gene Coronavirus OC43 (PCR) Coronavirus HKU1 (PCR) Coronavirus 229E (PCR) Coronavirus NL63 (PCR) CMV Specimen Source CMV Qnt PCR IU/mL CMV Qnt PCR log IU/mL Human Metapneumovir PCR Influenza A (RT-PCR) Influenza A (H1) PCR Influ A (H1/09) PCR Influenza A (H3) PCR Influenza Type A (PCR) Influenza B (RT-PCR) Influenza Type B (PCR) M. pneumoniae (PCR) Parainfluenza 1 (PCR) Parainfluenza 2 (PCR) Parainfluenza 3 (PCR) Parainfluenza 4 (PCR) Aspergillus Ag (EIA) Aspergillus Index Value RSV (PCR) RSV RNA Qual (PCR) Entero/Rhino (PCR) SARS-CoV-2 RNA (RT-PCR) Beta-(1,3)-D-Glucan B-(1,3)-D-Glucan Intrp Blood Type Antibody Screen Crossmatch 01/24/25 01/24/25 01/24/25 22:25 22:40 22:56 WBC RBC Hgb Hct MCV MCH MCHC RDW Plt Count MPV Immature Gran % (Auto) Neut % (Auto) Lymph % (Auto) [place] % (Auto) Eos % (Auto) Baso % (Auto) Lymph # (Auto) [place] # (Auto) Eos # (Auto) Baso # (Auto) Abs Immat Gran (auto) Absolute Neuts (auto) Absolute Nucleated RBC Nucleated RBC % (auto) Neutrophils % (Manual) Band Neutrophils % Lymphocytes % (Manual) Atypical Lymphs % (Man) Monocytes % (Manual) Eosinophils % (Manual) Basophils % (Manual) Metamyelocytes % Myelocytes % Abs Neuts (Manual) Lymphocytes # (Manual) Atyp Lymphs # (Manual) Monocytes # (Manual) Eosinophils # (Manual) Basophils # (Manual) Metamyelocytes # Myelocytes # Nucleated RBCs Hypersegmented Neuts Smudge Cells Toxic Granulation Toxic Vacuolation Dohle Bodies Platelet Estimate Large Platelets Giant Platelets Plt Morphology Comment RBC Morphology Polychromasia Hypochromasia Basophilic Stippling Microcytosis Macrocytosis Target Cells Tear Drop Cells Ovalocytes Stomatocytes Tilly Cells Acanthocytes (Spur) Schistocytes Smear Path Review PT INR APTT Fibrinogen O2 Saturation ABG pH at Pt Temp ABG pCO2 at Pt Temp ABG pO2 at Pt Temp ABG HCO3 ABG Base Excess (Actual) VBG pH VBG pCO2 VBG pO2 VBG HCO3 VBG O2 Saturation VBG Base Excess Sodium Potassium Chloride Carbon Dioxide Anion Gap BUN Creatinine Estim Creat Clear Calc Estimated GFR POC Glucose 148 H 136 H 126 H Random Glucose Lactic Acid Lactic Acid F/U @ 2Hr Calcium Phosphorus Magnesium Total Bilirubin Direct Bilirubin AST ALT Alkaline Phosphatase Lactate Dehydrogenase Troponin I High Sens B-Natriuretic Peptide Total Protein Albumin Vitamin K1 Hold Yellow Top Urine Color Urine Appearance Urine pH Ur Specific [place] Urine Protein Urine Glucose (UA) Urine Ketones Urine Blood Urine Nitrite Ur Leukocyte Esterase Urine RBC Urine WBC Ur Squamous Epith Cells Urine Bacteria Hyaline Casts Bronchial Fluid WBC Bronchial Fluid RBC Bronchial Lymphocytes Bronchial Other Cells Stool Occult Blood Stl C. cayetanensis PCR Stool Rotavirus A PCR Stl Adenov F 40/41 PCR Stool Astrovirus (PCR) Stool Campylobacter PCR Stool Cryptosporidium PCR Stl Sh Tox Pr E STEC PCR Stool E coli O157 PCR Stl Enterotoxigenic E PCR Stool EPEC (PCR) Stool EAEC (PCR) Stl E. histolytica PCR Stool Giardia Lamblia PCR Stl P. shigelloides PCR Stool Salmonella PCR Stool Sapovirus (PCR) Stl Shigella/EIEC PCR St Y.enterocolitica PCR Stool Vibrio (PCR) Stl Vibrio cholerae PCR Stl Norovirus GI/GII PCR Random Vancomycin IgE Respiratory Panel Alexandra Adenovirus (Rapid PCR) B.pert (TEM-PCR) B.parapertussis DNA PCR C. pneumoniae DNA (PCR) C. difficile Tox B Gene Coronavirus OC43 (PCR) Coronavirus HKU1 (PCR) Coronavirus 229E (PCR) Coronavirus NL63 (PCR) CMV Specimen Source CMV Qnt PCR IU/mL CMV Qnt PCR log IU/mL Human Metapneumovir PCR Influenza A (RT-PCR) Influenza A (H1) PCR Influ A (H1/09) PCR Influenza A (H3) PCR Influenza Type A (PCR) Influenza B (RT-PCR) Influenza Type B (PCR) M. pneumoniae (PCR) Parainfluenza 1 (PCR) Parainfluenza 2 (PCR) Parainfluenza 3 (PCR) Parainfluenza 4 (PCR) Aspergillus Ag (EIA) Aspergillus Index Value RSV (PCR) RSV RNA Qual (PCR) Entero/Rhino (PCR) SARS-CoV-2 RNA (RT-PCR) Beta-(1,3)-D-Glucan B-(1,3)-D-Glucan Intrp Blood Type Antibody Screen Crossmatch 01/24/25 01/25/25 01/25/25 23:58 02:59 03:29 WBC RBC Hgb Hct MCV MCH MCHC RDW Plt Count MPV Immature Gran % (Auto) Neut % (Auto) Lymph % (Auto) [place] % (Auto) Eos % (Auto) Baso % (Auto) Lymph # (Auto) [place] # (Auto) Eos # (Auto) Baso # (Auto) Abs Immat Gran (auto) Absolute Neuts (auto) Absolute Nucleated RBC Nucleated RBC % (auto) Neutrophils % (Manual) Band Neutrophils % Lymphocytes % (Manual) Atypical Lymphs % (Man) Monocytes % (Manual) Eosinophils % (Manual) Basophils % (Manual) Metamyelocytes % Myelocytes % Abs Neuts (Manual) Lymphocytes # (Manual) Atyp Lymphs # (Manual) Monocytes # (Manual) Eosinophils # (Manual) Basophils # (Manual) Metamyelocytes # Myelocytes # Nucleated RBCs Hypersegmented Neuts Smudge Cells Toxic Granulation Toxic Vacuolation Dohle Bodies Platelet Estimate Large Platelets Giant Platelets Plt Morphology Comment RBC Morphology Polychromasia Hypochromasia Basophilic Stippling Microcytosis Macrocytosis Target Cells Tear Drop Cells Ovalocytes Stomatocytes Regulo Cells Acanthocytes (Spur) Schistocytes Smear Path Review PT INR APTT Fibrinogen O2 Saturation ABG pH at Pt Temp ABG pCO2 at Pt Temp ABG pO2 at Pt Temp ABG HCO3 ABG Base Excess (Actual) VBG pH VBG pCO2 VBG pO2 VBG HCO3 VBG O2 Saturation VBG Base Excess Sodium Potassium Chloride Carbon Dioxide Anion Gap BUN Creatinine Estim Creat Clear Calc Estimated GFR POC Glucose 115 74 172 H Random Glucose Lactic Acid Lactic Acid F/U @ 2Hr Calcium Phosphorus Magnesium Total Bilirubin Direct Bilirubin AST ALT Alkaline Phosphatase Lactate Dehydrogenase Troponin I High Sens B-Natriuretic Peptide Total Protein Albumin Vitamin K1 Hold Yellow Top Urine Color Urine Appearance Urine pH Ur Specific [place] Urine Protein Urine Glucose (UA) Urine Ketones Urine Blood Urine Nitrite Ur Leukocyte Esterase Urine RBC Urine WBC Ur Squamous Epith Cells Urine Bacteria Hyaline Casts Bronchial Fluid WBC Bronchial Fluid RBC Bronchial Lymphocytes Bronchial Other Cells Stool Occult Blood Stl C. cayetanensis PCR Stool Rotavirus A PCR Stl Adenov F 40/41 PCR Stool Astrovirus (PCR) Stool Campylobacter PCR Stool Cryptosporidium PCR Stl Sh Tox Pr E STEC PCR Stool E coli O157 PCR Stl Enterotoxigenic E PCR Stool EPEC (PCR) Stool EAEC (PCR) Stl E. histolytica PCR Stool Giardia Lamblia PCR Stl P. shigelloides PCR Stool Salmonella PCR Stool Sapovirus (PCR) Stl Shigella/EIEC PCR St Y.enterocolitica PCR Stool Vibrio (PCR) Stl Vibrio cholerae PCR Stl Norovirus GI/GII PCR Random Vancomycin IgE Respiratory Panel Alexandra Adenovirus (Rapid PCR) B.pert (TEM-PCR) B.parapertussis DNA PCR C. pneumoniae DNA (PCR) C. difficile Tox B Gene Coronavirus OC43 (PCR) Coronavirus HKU1 (PCR) Coronavirus 229E (PCR) Coronavirus NL63 (PCR) CMV Specimen Source CMV Qnt PCR IU/mL CMV Qnt PCR log IU/mL Human Metapneumovir PCR Influenza A (RT-PCR) Influenza A (H1) PCR Influ A (H1/09) PCR Influenza A (H3) PCR Influenza Type A (PCR) Influenza B (RT-PCR) Influenza Type B (PCR) M. pneumoniae (PCR) Parainfluenza 1 (PCR) Parainfluenza 2 (PCR) Parainfluenza 3 (PCR) Parainfluenza 4 (PCR) Aspergillus Ag (EIA) Aspergillus Index Value RSV (PCR) RSV RNA Qual (PCR) Entero/Rhino (PCR) SARS-CoV-2 RNA (RT-PCR) Beta-(1,3)-D-Glucan B-(1,3)-D-Glucan Intrp Blood Type Antibody Screen Crossmatch 01/25/25 01/25/25 01/25/25 03:48 04:05 04:16 WBC 8.2 RBC 2.62 L Hgb 7.8 L Hct 23.1 L MCV 88.2 MCH 29.8 MCHC 33.8 RDW 19.5 H Plt Count 389 MPV 10.8 Immature Gran % (Auto) 1.6 H Neut % (Auto) 79.8 H Lymph % (Auto) 13.6 L [place] % (Auto) 4.8 Eos % (Auto) 0.1 Baso % (Auto) 0.1 Lymph # (Auto) 1.1 L [place] # (Auto) 0.4 Eos # (Auto) 0.0 Baso # (Auto) 0.0 Abs Immat Gran (auto) 0.13 H Absolute Neuts (auto) 6.5 Absolute Nucleated RBC 0.000 Nucleated RBC % (auto) 0.0 Neutrophils % (Manual) Band Neutrophils % Lymphocytes % (Manual) Atypical Lymphs % (Man) Monocytes % (Manual) Eosinophils % (Manual) Basophils % (Manual) Metamyelocytes % Myelocytes % Abs Neuts (Manual) Lymphocytes # (Manual) Atyp Lymphs # (Manual) Monocytes # (Manual) Eosinophils # (Manual) Basophils # (Manual) Metamyelocytes # Myelocytes # Nucleated RBCs Hypersegmented Neuts Smudge Cells Toxic Granulation Toxic Vacuolation Dohle Bodies Platelet Estimate Large Platelets Giant Platelets Plt Morphology Comment RBC Morphology Polychromasia Hypochromasia Basophilic Stippling Microcytosis Macrocytosis Target Cells Tear Drop Cells Ovalocytes Stomatocytes Regulo Cells Acanthocytes (Spur) Schistocytes Smear Path Review PT INR APTT Fibrinogen O2 Saturation ABG pH at Pt Temp ABG pCO2 at Pt Temp ABG pO2 at Pt Temp ABG HCO3 ABG Base Excess (Actual) VBG pH VBG pCO2 VBG pO2 VBG HCO3 VBG O2 Saturation VBG Base Excess Sodium 153 H Potassium 3.2 L Chloride 118 H Carbon Dioxide 23 Anion Gap 15 BUN 35 H Creatinine 0.75 Estim Creat Clear Calc 72.3 Estimated GFR > 60 POC Glucose 150 H 143 H Random Glucose 140 H Lactic Acid Lactic Acid F/U @ 2Hr Calcium 8.0 L Phosphorus 2.0 L Magnesium 2.7 H Total Bilirubin Direct Bilirubin AST ALT Alkaline Phosphatase Lactate Dehydrogenase Troponin I High Sens B-Natriuretic Peptide Total Protein Albumin 3.2 L Vitamin K1 Hold Yellow Top Urine Color Urine Appearance Urine pH Ur Specific [place] Urine Protein Urine Glucose (UA) Urine Ketones Urine Blood Urine Nitrite Ur Leukocyte Esterase Urine RBC Urine WBC Ur Squamous Epith Cells Urine Bacteria Hyaline Casts Bronchial Fluid WBC Bronchial Fluid RBC Bronchial Lymphocytes Bronchial Other Cells Stool Occult Blood Stl C. cayetanensis PCR Stool Rotavirus A PCR Stl Adenov F 40/ PCR Stool Astrovirus (PCR) Stool Campylobacter PCR Stool Cryptosporidium PCR Stl Sh Tox Pr E STEC PCR Stool E coli O157 PCR Stl Enterotoxigenic E PCR Stool EPEC (PCR) Stool EAEC (PCR) Stl E. histolytica PCR Stool Giardia Lamblia PCR Stl P. shigelloides PCR Stool Salmonella PCR Stool Sapovirus (PCR) Stl Shigella/EIEC PCR St Y.enterocolitica PCR Stool Vibrio (PCR) Stl Vibrio cholerae PCR Stl Norovirus GI/GII PCR Random Vancomycin IgE Respiratory Panel Alexandra Adenovirus (Rapid PCR) B.pert (TEM-PCR) B.parapertussis DNA PCR C. pneumoniae DNA (PCR) C. difficile Tox B Gene Coronavirus OC43 (PCR) Coronavirus HKU1 (PCR) Coronavirus 229E (PCR) Coronavirus NL63 (PCR) CMV Specimen Source CMV Qnt PCR IU/mL CMV Qnt PCR log IU/mL Human Metapneumovir PCR Influenza A (RT-PCR) Influenza A (H1) PCR Influ A (H1/09) PCR Influenza A (H3) PCR Influenza Type A (PCR) Influenza B (RT-PCR) Influenza Type B (PCR) M. pneumoniae (PCR) Parainfluenza 1 (PCR) Parainfluenza 2 (PCR) Parainfluenza 3 (PCR) Parainfluenza 4 (PCR) Aspergillus Ag (EIA) Aspergillus Index Value RSV (PCR) RSV RNA Qual (PCR) Entero/Rhino (PCR) SARS-CoV-2 RNA (RT-PCR) Beta-(1,3)-D-Glucan B-(1,3)-D-Glucan Intrp Blood Type Antibody Screen Crossmatch 01/25/25 01/25/25 01/25/25 04:29 06:06 13:23 WBC RBC Hgb Hct MCV MCH MCHC RDW Plt Count MPV Immature Gran % (Auto) Neut % (Auto) Lymph % (Auto) [place] % (Auto) Eos % (Auto) Baso % (Auto) Lymph # (Auto) [place] # (Auto) Eos # (Auto) Baso # (Auto) Abs Immat Gran (auto) Absolute Neuts (auto) Absolute Nucleated RBC Nucleated RBC % (auto) Neutrophils % (Manual) Band Neutrophils % Lymphocytes % (Manual) Atypical Lymphs % (Man) Monocytes % (Manual) Eosinophils % (Manual) Basophils % (Manual) Metamyelocytes % Myelocytes % Abs Neuts (Manual) Lymphocytes # (Manual) Atyp Lymphs # (Manual) Monocytes # (Manual) Eosinophils # (Manual) Basophils # (Manual) Metamyelocytes # Myelocytes # Nucleated RBCs Hypersegmented Neuts Smudge Cells Toxic Granulation Toxic Vacuolation Dohle Bodies Platelet Estimate Large Platelets Giant Platelets Plt Morphology Comment RBC Morphology Polychromasia Hypochromasia Basophilic Stippling Microcytosis Macrocytosis Target Cells Tear Drop Cells Ovalocytes Stomatocytes [place] Cells Acanthocytes (Spur) Schistocytes Smear Path Review PT INR APTT Fibrinogen O2 Saturation ABG pH at Pt Temp ABG pCO2 at Pt Temp ABG pO2 at Pt Temp ABG HCO3 ABG Base Excess (Actual) VBG pH 7.65 H* VBG pCO2 26 VBG pO2 43 VBG HCO3 29 H VBG O2 Saturation 81.0 VBG Base Excess 9.1 Sodium Potassium Chloride Carbon Dioxide Anion Gap BUN Creatinine Estim Creat Clear Calc Estimated GFR POC Glucose 124 H 193 H Random Glucose Lactic Acid Lactic Acid F/U @ 2Hr Calcium Phosphorus Magnesium Total Bilirubin Direct Bilirubin AST ALT Alkaline Phosphatase Lactate Dehydrogenase Troponin I High Sens B-Natriuretic Peptide Total Protein Albumin Vitamin K1 Hold Yellow Top Urine Color Urine Appearance Urine pH Ur Specific [place] Urine Protein Urine Glucose (UA) Urine Ketones Urine Blood Urine Nitrite Ur Leukocyte Esterase Urine RBC Urine WBC Ur Squamous Epith Cells Urine Bacteria Hyaline Casts Bronchial Fluid WBC Bronchial Fluid RBC Bronchial Lymphocytes Bronchial Other Cells Stool Occult Blood Stl C. cayetanensis PCR Stool Rotavirus A PCR Stl Adenov F 40/41 PCR Stool Astrovirus (PCR) Stool Campylobacter PCR Stool Cryptosporidium PCR Stl Sh Tox Pr E STEC PCR Stool E coli O157 PCR Stl Enterotoxigenic E PCR Stool EPEC (PCR) Stool EAEC (PCR) Stl E. histolytica PCR Stool Giardia Lamblia PCR Stl P. shigelloides PCR Stool Salmonella PCR Stool Sapovirus (PCR) Stl Shigella/EIEC PCR St Y.enterocolitica PCR Stool Vibrio (PCR) Stl Vibrio cholerae PCR Stl Norovirus GI/GII PCR Random Vancomycin IgE Respiratory Panel Alexandra Adenovirus (Rapid PCR) B.pert (TEM-PCR) B.parapertussis DNA PCR C. pneumoniae DNA (PCR) C. difficile Tox B Gene Coronavirus OC43 (PCR) Coronavirus HKU1 (PCR) Coronavirus 229E (PCR) Coronavirus NL63 (PCR) CMV Specimen Source CMV Qnt PCR IU/mL CMV Qnt PCR log IU/mL Human Metapneumovir PCR Influenza A (RT-PCR) Influenza A (H1) PCR Influ A (H1) PCR Influenza A (H3) PCR Influenza Type A (PCR) Influenza B (RT-PCR) Influenza Type B (PCR) M. pneumoniae (PCR) Parainfluenza 1 (PCR) Parainfluenza 2 (PCR) Parainfluenza 3 (PCR) Parainfluenza 4 (PCR) Aspergillus Ag (EIA) Aspergillus Index Value RSV (PCR) RSV RNA Qual (PCR) Entero/Rhino (PCR) SARS-CoV-2 RNA (RT-PCR) Beta-(1,3)-D-Glucan B-(1,3)-D-Glucan Intrp Blood Type Antibody Screen Crossmatch 01/25/25 01/25/25 01/26/25 18:09 23:42 05:55 WBC RBC Hgb Hct MCV MCH MCHC RDW Plt Count MPV Immature Gran % (Auto) Neut % (Auto) Lymph % (Auto) [place] % (Auto) Eos % (Auto) Baso % (Auto) Lymph # (Auto) [place] # (Auto) Eos # (Auto) Baso # (Auto) Abs Immat Gran (auto) Absolute Neuts (auto) Absolute Nucleated RBC Nucleated RBC % (auto) Neutrophils % (Manual) Band Neutrophils % Lymphocytes % (Manual) Atypical Lymphs % (Man) Monocytes % (Manual) Eosinophils % (Manual) Basophils % (Manual) Metamyelocytes % Myelocytes % Abs Neuts (Manual) Lymphocytes # (Manual) Atyp Lymphs # (Manual) Monocytes # (Manual) Eosinophils # (Manual) Basophils # (Manual) Metamyelocytes # Myelocytes # Nucleated RBCs Hypersegmented Neuts Smudge Cells Toxic Granulation Toxic Vacuolation Dohle Bodies Platelet Estimate Large Platelets Giant Platelets Plt Morphology Comment RBC Morphology Polychromasia Hypochromasia Basophilic Stippling Microcytosis Macrocytosis Target Cells Tear Drop Cells Ovalocytes Stomatocytes Regulo Cells Acanthocytes (Spur) Schistocytes Smear Path Review PT INR APTT Fibrinogen O2 Saturation ABG pH at Pt Temp ABG pCO2 at Pt Temp ABG pO2 at Pt Temp ABG HCO3 ABG Base Excess (Actual) VBG pH VBG pCO2 VBG pO2 VBG HCO3 VBG O2 Saturation VBG Base Excess Sodium Potassium Chloride Carbon Dioxide Anion Gap BUN Creatinine Estim Creat Clear Calc Estimated GFR POC Glucose 203 H 159 H 216 H Random Glucose Lactic Acid Lactic Acid F/U @ 2Hr Calcium Phosphorus Magnesium Total Bilirubin Direct Bilirubin AST ALT Alkaline Phosphatase Lactate Dehydrogenase Troponin I High Sens B-Natriuretic Peptide Total Protein Albumin Vitamin K1 Hold Yellow Top Urine Color Urine Appearance Urine pH Ur Specific [place] Urine Protein Urine Glucose (UA) Urine Ketones Urine Blood Urine Nitrite Ur Leukocyte Esterase Urine RBC Urine WBC Ur Squamous Epith Cells Urine Bacteria Hyaline Casts Bronchial Fluid WBC Bronchial Fluid RBC Bronchial Lymphocytes Bronchial Other Cells Stool Occult Blood Stl C. cayetanensis PCR Stool Rotavirus A PCR Stl Adenov F 40/41 PCR Stool Astrovirus (PCR) Stool Campylobacter PCR Stool Cryptosporidium PCR Stl Sh Tox Pr E STEC PCR Stool E coli O157 PCR Stl Enterotoxigenic E PCR Stool EPEC (PCR) Stool EAEC (PCR) Stl E. histolytica PCR Stool Giardia Lamblia PCR Stl P. shigelloides PCR Stool Salmonella PCR Stool Sapovirus (PCR) Stl Shigella/EIEC PCR St Y.enterocolitica PCR Stool Vibrio (PCR) Stl Vibrio cholerae PCR Stl Norovirus GI/GII PCR Random Vancomycin IgE Respiratory Panel Alexandra Adenovirus (Rapid PCR) B.pert (TEM-PCR) B.parapertussis DNA PCR C. pneumoniae DNA (PCR) C. difficile Tox B Gene Coronavirus OC43 (PCR) Coronavirus HKU1 (PCR) Coronavirus 229E (PCR) Coronavirus NL63 (PCR) CMV Specimen Source CMV Qnt PCR IU/mL CMV Qnt PCR log IU/mL Human Metapneumovir PCR Influenza A (RT-PCR) Influenza A (H1) PCR Influ A (H1) PCR Influenza A (H3) PCR Influenza Type A (PCR) Influenza B (RT-PCR) Influenza Type B (PCR) M. pneumoniae (PCR) Parainfluenza 1 (PCR) Parainfluenza 2 (PCR) Parainfluenza 3 (PCR) Parainfluenza 4 (PCR) Aspergillus Ag (EIA) Aspergillus Index Value RSV (PCR) RSV RNA Qual (PCR) Entero/Rhino (PCR) SARS-CoV-2 RNA (RT-PCR) Beta-(1,3)-D-Glucan B-(1,3)-D-Glucan Intrp Blood Type Antibody Screen Crossmatch 01/26/25 01/26/25 01/26/25 06:55 12:19 13:03 WBC 6.4 RBC 2.48 L Hgb 7.3 L Hct 22.6 L MCV 91.1 MCH 29.4 MCHC 32.3 RDW 19.2 H Plt Count 429 H MPV 10.3 Immature Gran % (Auto) 2.5 H Neut % (Auto) 75.4 H Lymph % (Auto) 16.0 L [place] % (Auto) 5.6 Eos % (Auto) 0.3 Baso % (Auto) 0.2 Lymph # (Auto) 1.0 L [place] # (Auto) 0.4 Eos # (Auto) 0.0 Baso # (Auto) 0.0 Abs Immat Gran (auto) 0.16 H Absolute Neuts (auto) 4.9 Absolute Nucleated RBC 0.000 Nucleated RBC % (auto) 0.0 Neutrophils % (Manual) Band Neutrophils % Lymphocytes % (Manual) Atypical Lymphs % (Man) Monocytes % (Manual) Eosinophils % (Manual) Basophils % (Manual) Metamyelocytes % Myelocytes % Abs Neuts (Manual) Lymphocytes # (Manual) Atyp Lymphs # (Manual) Monocytes # (Manual) Eosinophils # (Manual) Basophils # (Manual) Metamyelocytes # Myelocytes # Nucleated RBCs Hypersegmented Neuts Smudge Cells Toxic Granulation Toxic Vacuolation Dohle Bodies Platelet Estimate Large Platelets Giant Platelets Plt Morphology Comment RBC Morphology Polychromasia Hypochromasia Basophilic Stippling Microcytosis Macrocytosis Target Cells Tear Drop Cells Ovalocytes Stomatocytes Regulo Cells Acanthocytes (Spur) Schistocytes Smear Path Review PT INR APTT Fibrinogen O2 Saturation ABG pH at Pt Temp ABG pCO2 at Pt Temp ABG pO2 at Pt Temp ABG HCO3 ABG Base Excess (Actual) VBG pH VBG pCO2 VBG pO2 VBG HCO3 VBG O2 Saturation VBG Base Excess Sodium 149 H 146 H Potassium 2.6 L* 3.5 D Chloride 117 H 115 H Carbon Dioxide 22 17 L Anion Gap 13 18 BUN 25 H 24 H Creatinine 0.71 0.71 Estim Creat Clear Calc 77.1 77.1 Estimated GFR > 60 > 60 POC Glucose 220 H Random Glucose 198 H 241 H Lactic Acid Lactic Acid F/U @ 2Hr Calcium 7.7 L 7.5 L Phosphorus 2.0 L Magnesium 2.4 Total Bilirubin Direct Bilirubin AST ALT Alkaline Phosphatase Lactate Dehydrogenase Troponin I High Sens B-Natriuretic Peptide Total Protein Albumin 2.9 L Vitamin K1 Hold Yellow Top Urine Color Urine Appearance Urine pH Ur Specific [place] Urine Protein Urine Glucose (UA) Urine Ketones Urine Blood Urine Nitrite Ur Leukocyte Esterase Urine RBC Urine WBC Ur Squamous Epith Cells Urine Bacteria Hyaline Casts Bronchial Fluid WBC Bronchial Fluid RBC Bronchial Lymphocytes Bronchial Other Cells Stool Occult Blood Stl C. cayetanensis PCR Stool Rotavirus A PCR Stl Adenov F 40/41 PCR Stool Astrovirus (PCR) Stool Campylobacter PCR Stool Cryptosporidium PCR Stl Sh Tox Pr E STEC PCR Stool E coli O157 PCR Stl Enterotoxigenic E PCR Stool EPEC (PCR) Stool EAEC (PCR) Stl E. histolytica PCR Stool Giardia Lamblia PCR Stl P. shigelloides PCR Stool Salmonella PCR Stool Sapovirus (PCR) Stl Shigella/EIEC PCR St Y.enterocolitica PCR Stool Vibrio (PCR) Stl Vibrio cholerae PCR Stl Norovirus GI/GII PCR Random Vancomycin IgE Respiratory Panel Alexandra Adenovirus (Rapid PCR) B.pert (TEM-PCR) B.parapertussis DNA PCR C. pneumoniae DNA (PCR) C. difficile Tox B Gene Coronavirus OC43 (PCR) Coronavirus HKU1 (PCR) Coronavirus 229E (PCR) Coronavirus NL63 (PCR) CMV Specimen Source CMV Qnt PCR IU/mL CMV Qnt PCR log IU/mL Human Metapneumovir PCR Influenza A (RT-PCR) Influenza A (H1) PCR Influ A (H1/09) PCR Influenza A (H3) PCR Influenza Type A (PCR) Influenza B (RT-PCR) Influenza Type B (PCR) M. pneumoniae (PCR) Parainfluenza 1 (PCR) Parainfluenza 2 (PCR) Parainfluenza 3 (PCR) Parainfluenza 4 (PCR) Aspergillus Ag (EIA) Aspergillus Index Value RSV (PCR) RSV RNA Qual (PCR) Entero/Rhino (PCR) SARS-CoV-2 RNA (RT-PCR) Beta-(1,3)-D-Glucan B-(1,3)-D-Glucan Intrp Blood Type Antibody Screen Crossmatch 01/26/25 01/26/25 01/26/25 14:39 17:36 22:13 WBC 6.6 RBC 2.51 L Hgb 7.4 L Hct 22.9 L MCV 91.2 MCH 29.5 MCHC 32.3 RDW 19.1 H Plt Count 450 H MPV 10.5 Immature Gran % (Auto) Neut % (Auto) Lymph % (Auto) [place] % (Auto) Eos % (Auto) Baso % (Auto) Lymph # (Auto) [place] # (Auto) Eos # (Auto) Baso # (Auto) Abs Immat Gran (auto) Absolute Neuts (auto) Absolute Nucleated RBC 0.000 Nucleated RBC % (auto) 0.0 Neutrophils % (Manual) Band Neutrophils % Lymphocytes % (Manual) Atypical Lymphs % (Man) Monocytes % (Manual) Eosinophils % (Manual) Basophils % (Manual) Metamyelocytes % Myelocytes % Abs Neuts (Manual) Lymphocytes # (Manual) Atyp Lymphs # (Manual) Monocytes # (Manual) Eosinophils # (Manual) Basophils # (Manual) Metamyelocytes # Myelocytes # Nucleated RBCs Hypersegmented Neuts Smudge Cells Toxic Granulation Toxic Vacuolation Dohle Bodies Platelet Estimate Large Platelets Giant Platelets Plt Morphology Comment RBC Morphology Polychromasia Hypochromasia Basophilic Stippling Microcytosis Macrocytosis Target Cells Tear Drop Cells Ovalocytes Stomatocytes Regulo Cells Acanthocytes (Spur) Schistocytes Smear Path Review PT INR APTT Fibrinogen O2 Saturation ABG pH at Pt Temp ABG pCO2 at Pt Temp ABG pO2 at Pt Temp ABG HCO3 ABG Base Excess (Actual) VBG pH VBG pCO2 VBG pO2 VBG HCO3 VBG O2 Saturation VBG Base Excess Sodium Potassium Chloride Carbon Dioxide Anion Gap BUN Creatinine Estim Creat Clear Calc Estimated GFR POC Glucose 330 H 247 H Random Glucose Lactic Acid Lactic Acid F/U @ 2Hr Calcium Phosphorus Magnesium Total Bilirubin Direct Bilirubin AST ALT Alkaline Phosphatase Lactate Dehydrogenase Troponin I High Sens B-Natriuretic Peptide Total Protein Albumin Vitamin K1 Hold Yellow Top Urine Color Urine Appearance Urine pH Ur Specific [place] Urine Protein Urine Glucose (UA) Urine Ketones Urine Blood Urine Nitrite Ur Leukocyte Esterase Urine RBC Urine WBC Ur Squamous Epith Cells Urine Bacteria Hyaline Casts Bronchial Fluid WBC Bronchial Fluid RBC Bronchial Lymphocytes Bronchial Other Cells Stool Occult Blood Stl C. cayetanensis PCR Stool Rotavirus A PCR Stl Adenov F 40/41 PCR Stool Astrovirus (PCR) Stool Campylobacter PCR Stool Cryptosporidium PCR Stl Sh Tox Pr E STEC PCR Stool E coli O157 PCR Stl Enterotoxigenic E PCR Stool EPEC (PCR) Stool EAEC (PCR) Stl E. histolytica PCR Stool Giardia Lamblia PCR Stl P. shigelloides PCR Stool Salmonella PCR Stool Sapovirus (PCR) Stl Shigella/EIEC PCR St Y.enterocolitica PCR Stool Vibrio (PCR) Stl Vibrio cholerae PCR Stl Norovirus GI/GII PCR Random Vancomycin IgE Respiratory Panel Alexandra Adenovirus (Rapid PCR) B.pert (TEM-PCR) B.parapertussis DNA PCR C. pneumoniae DNA (PCR) C. difficile Tox B Gene Coronavirus OC43 (PCR) Coronavirus HKU1 (PCR) Coronavirus 229E (PCR) Coronavirus NL63 (PCR) CMV Specimen Source CMV Qnt PCR IU/mL CMV Qnt PCR log IU/mL Human Metapneumovir PCR Influenza A (RT-PCR) Influenza A (H1) PCR Influ A (H1/09) PCR Influenza A (H3) PCR Influenza Type A (PCR) Influenza B (RT-PCR) Influenza Type B (PCR) M. pneumoniae (PCR) Parainfluenza 1 (PCR) Parainfluenza 2 (PCR) Parainfluenza 3 (PCR) Parainfluenza 4 (PCR) Aspergillus Ag (EIA) Aspergillus Index Value RSV (PCR) RSV RNA Qual (PCR) Entero/Rhino (PCR) SARS-CoV-2 RNA (RT-PCR) Beta-(1,3)-D-Glucan B-(1,3)-D-Glucan Intrp Blood Type B Positive Antibody Screen NEGATIVE Crossmatch See Detail 01/27/25 01/27/25 01/27/25 01:03 04:03 04:30 WBC RBC Hgb Hct MCV MCH MCHC RDW Plt Count MPV Immature Gran % (Auto) Neut % (Auto) Lymph % (Auto) [place] % (Auto) Eos % (Auto) Baso % (Auto) Lymph # (Auto) [place] # (Auto) Eos # (Auto) Baso # (Auto) Abs Immat Gran (auto) Absolute Neuts (auto) Absolute Nucleated RBC Nucleated RBC % (auto) Neutrophils % (Manual) Band Neutrophils % Lymphocytes % (Manual) Atypical Lymphs % (Man) Monocytes % (Manual) Eosinophils % (Manual) Basophils % (Manual) Metamyelocytes % Myelocytes % Abs Neuts (Manual) Lymphocytes # (Manual) Atyp Lymphs # (Manual) Monocytes # (Manual) Eosinophils # (Manual) Basophils # (Manual) Metamyelocytes # Myelocytes # Nucleated RBCs Hypersegmented Neuts Smudge Cells Toxic Granulation Toxic Vacuolation Dohle Bodies Platelet Estimate Large Platelets Giant Platelets Plt Morphology Comment RBC Morphology Polychromasia Hypochromasia Basophilic Stippling Microcytosis Macrocytosis Target Cells Tear Drop Cells Ovalocytes Stomatocytes Regulo Cells Acanthocytes (Spur) Schistocytes Smear Path Review PT INR APTT Fibrinogen O2 Saturation ABG pH at Pt Temp ABG pCO2 at Pt Temp ABG pO2 at Pt Temp ABG HCO3 ABG Base Excess (Actual) VBG pH VBG pCO2 VBG pO2 VBG HCO3 VBG O2 Saturation VBG Base Excess Sodium Potassium Chloride Carbon Dioxide Anion Gap BUN Creatinine Estim Creat Clear Calc Estimated GFR POC Glucose 219 H 232 H Random Glucose Lactic Acid Lactic Acid F/U @ 2Hr Calcium Phosphorus Magnesium Total Bilirubin Direct Bilirubin AST ALT Alkaline Phosphatase Lactate Dehydrogenase Troponin I High Sens B-Natriuretic Peptide Total Protein Albumin Vitamin K1 Hold Yellow Top Urine Color Yellow Urine Appearance Cloudy Urine pH 5.5 Ur Specific [place] 1.020 Urine Protein 100 (2+) H Urine Glucose (UA) >=1000 H Urine Ketones Trace Urine Blood Small (1+) H Urine Nitrite Negative Ur Leukocyte Esterase Small (1+) H Urine RBC 0-2 Urine WBC 21-50 H Ur Squamous Epith Cells 0-2 Urine Bacteria 4+ Hyaline Casts 0-2 Bronchial Fluid WBC Bronchial Fluid RBC Bronchial Lymphocytes Bronchial Other Cells Stool Occult Blood Stl C. cayetanensis PCR Stool Rotavirus A PCR Stl Adenov F 40/41 PCR Stool Astrovirus (PCR) Stool Campylobacter PCR Stool Cryptosporidium PCR Stl Sh Tox Pr E STEC PCR Stool E coli O157 PCR Stl Enterotoxigenic E PCR Stool EPEC (PCR) Stool EAEC (PCR) Stl E. histolytica PCR Stool Giardia Lamblia PCR Stl P. shigelloides PCR Stool Salmonella PCR Stool Sapovirus (PCR) Stl Shigella/EIEC PCR St Y.enterocolitica PCR Stool Vibrio (PCR) Stl Vibrio cholerae PCR Stl Norovirus GI/GII PCR Random Vancomycin IgE Respiratory Panel Alexandra Adenovirus (Rapid PCR) B.pert (TEM-PCR) B.parapertussis DNA PCR C. pneumoniae DNA (PCR) C. difficile Tox B Gene Coronavirus OC43 (PCR) Coronavirus HKU1 (PCR) Coronavirus 229E (PCR) Coronavirus NL63 (PCR) CMV Specimen Source CMV Qnt PCR IU/mL CMV Qnt PCR log IU/mL Human Metapneumovir PCR Influenza A (RT-PCR) Influenza A (H1) PCR Influ A () PCR Influenza A (H3) PCR Influenza Type A (PCR) Influenza B (RT-PCR) Influenza Type B (PCR) M. pneumoniae (PCR) Parainfluenza 1 (PCR) Parainfluenza 2 (PCR) Parainfluenza 3 (PCR) Parainfluenza 4 (PCR) Aspergillus Ag (EIA) Aspergillus Index Value RSV (PCR) RSV RNA Qual (PCR) Entero/Rhino (PCR) SARS-CoV-2 RNA (RT-PCR) Beta-(1,3)-D-Glucan B-(1,3)-D-Glucan Intrp Blood Type Antibody Screen Crossmatch 01/27/25 01/27/25 01/27/25 06:14 06:43 09:06 WBC 7.6 RBC 2.85 L Hgb 8.7 L Hct 25.6 L MCV 89.8 MCH 30.5 MCHC 34.0 RDW 17.2 H Plt Count 423 H MPV 10.0 Immature Gran % (Auto) Cancelled Neut % (Auto) Cancelled Lymph % (Auto) Cancelled [place] % (Auto) Cancelled Eos % (Auto) Cancelled Baso % (Auto) Cancelled Lymph # (Auto) Cancelled [place] # (Auto) Cancelled Eos # (Auto) Cancelled Baso # (Auto) Cancelled Abs Immat Gran (auto) Cancelled Absolute Neuts (auto) Cancelled Absolute Nucleated RBC 0.000 Nucleated RBC % (auto) 0.0 Neutrophils % (Manual) 78 H Band Neutrophils % 5 Lymphocytes % (Manual) 11 L Atypical Lymphs % (Man) Monocytes % (Manual) 4 Eosinophils % (Manual) Basophils % (Manual) Metamyelocytes % 1 Myelocytes % 1 Abs Neuts (Manual) 6.3 Lymphocytes # (Manual) 0.8 L Atyp Lymphs # (Manual) Monocytes # (Manual) 0.3 Eosinophils # (Manual) Basophils # (Manual) Metamyelocytes # 0.1 Myelocytes # 0.1 Nucleated RBCs Hypersegmented Neuts Smudge Cells Toxic Granulation Toxic Vacuolation Dohle Bodies Platelet Estimate SLIGHTLY INCREASED Large Platelets Giant Platelets Plt Morphology Comment NORM RBC Morphology NOTED Polychromasia Hypochromasia 1+ (5-14) Basophilic Stippling Microcytosis 1+ (5-14) Macrocytosis Target Cells Tear Drop Cells Ovalocytes Stomatocytes Tilly Cells Acanthocytes (Spur) Schistocytes Smear Path Review PT INR APTT Fibrinogen O2 Saturation ABG pH at Pt Temp ABG pCO2 at Pt Temp ABG pO2 at Pt Temp ABG HCO3 ABG Base Excess (Actual) VBG pH VBG pCO2 VBG pO2 VBG HCO3 VBG O2 Saturation VBG Base Excess Sodium 139 Potassium 2.6 L* D Chloride 110 H Carbon Dioxide 20 L Anion Gap 12 BUN 24 H Creatinine 0.72 Estim Creat Clear Calc 75.5 Estimated GFR > 60 POC Glucose 236 H 207 H Random Glucose 219 H Lactic Acid Lactic Acid F/U @ 2Hr Calcium 7.9 L Phosphorus Magnesium Total Bilirubin Direct Bilirubin AST ALT Alkaline Phosphatase Lactate Dehydrogenase Troponin I High Sens B-Natriuretic Peptide Total Protein Albumin Vitamin K1 Hold Yellow Top Urine Color Urine Appearance Urine pH Ur Specific [place] Urine Protein Urine Glucose (UA) Urine Ketones Urine Blood Urine Nitrite Ur Leukocyte Esterase Urine RBC Urine WBC Ur Squamous Epith Cells Urine Bacteria Hyaline Casts Bronchial Fluid WBC Bronchial Fluid RBC Bronchial Lymphocytes Bronchial Other Cells Stool Occult Blood Stl C. cayetanensis PCR Stool Rotavirus A PCR Stl Adenov F 40/41 PCR Stool Astrovirus (PCR) Stool Campylobacter PCR Stool Cryptosporidium PCR Stl Sh Tox Pr E STEC PCR Stool E coli O157 PCR Stl Enterotoxigenic E PCR Stool EPEC (PCR) Stool EAEC (PCR) Stl E. histolytica PCR Stool Giardia Lamblia PCR Stl P. shigelloides PCR Stool Salmonella PCR Stool Sapovirus (PCR) Stl Shigella/EIEC PCR St Y.enterocolitica PCR Stool Vibrio (PCR) Stl Vibrio cholerae PCR Stl Norovirus GI/GII PCR Random Vancomycin IgE Respiratory Panel Alexandra Adenovirus (Rapid PCR) B.pert (TEM-PCR) B.parapertussis DNA PCR C. pneumoniae DNA (PCR) C. difficile Tox B Gene Coronavirus OC43 (PCR) Coronavirus HKU1 (PCR) Coronavirus 229E (PCR) Coronavirus NL63 (PCR) CMV Specimen Source CMV Qnt PCR IU/mL CMV Qnt PCR log IU/mL Human Metapneumovir PCR Influenza A (RT-PCR) Influenza A (H1) PCR Influ A (H1/09) PCR Influenza A (H3) PCR Influenza Type A (PCR) Influenza B (RT-PCR) Influenza Type B (PCR) M. pneumoniae (PCR) Parainfluenza 1 (PCR) Parainfluenza 2 (PCR) Parainfluenza 3 (PCR) Parainfluenza 4 (PCR) Aspergillus Ag (EIA) Aspergillus Index Value RSV (PCR) RSV RNA Qual (PCR) Entero/Rhino (PCR) SARS-CoV-2 RNA (RT-PCR) Beta-(1,3)-D-Glucan B-(1,3)-D-Glucan Intrp Blood Type Antibody Screen Crossmatch 01/27/25 01/27/25 01/27/25 11:31 13:26 18:36 WBC RBC Hgb Hct MCV MCH MCHC RDW Plt Count MPV Immature Gran % (Auto) Neut % (Auto) Lymph % (Auto) [place] % (Auto) Eos % (Auto) Baso % (Auto) Lymph # (Auto) [place] # (Auto) Eos # (Auto) Baso # (Auto) Abs Immat Gran (auto) Absolute Neuts (auto) Absolute Nucleated RBC Nucleated RBC % (auto) Neutrophils % (Manual) Band Neutrophils % Lymphocytes % (Manual) Atypical Lymphs % (Man) Monocytes % (Manual) Eosinophils % (Manual) Basophils % (Manual) Metamyelocytes % Myelocytes % Abs Neuts (Manual) Lymphocytes # (Manual) Atyp Lymphs # (Manual) Monocytes # (Manual) Eosinophils # (Manual) Basophils # (Manual) Metamyelocytes # Myelocytes # Nucleated RBCs Hypersegmented Neuts Smudge Cells Toxic Granulation Toxic Vacuolation Dohle Bodies Platelet Estimate Large Platelets Giant Platelets Plt Morphology Comment RBC Morphology Polychromasia Hypochromasia Basophilic Stippling Microcytosis Macrocytosis Target Cells Tear Drop Cells Ovalocytes Stomatocytes Tilly Cells Acanthocytes (Spur) Schistocytes Smear Path Review PT INR APTT Fibrinogen O2 Saturation ABG pH at Pt Temp ABG pCO2 at Pt Temp ABG pO2 at Pt Temp ABG HCO3 ABG Base Excess (Actual) VBG pH VBG pCO2 VBG pO2 VBG HCO3 VBG O2 Saturation VBG Base Excess Sodium 139 Potassium 3.8 D Chloride 111 H Carbon Dioxide 19 L Anion Gap 13 BUN 29 H Creatinine 1.02 Estim Creat Clear Calc 53.2 Estimated GFR 55 POC Glucose 188 H 336 H Random Glucose 218 H Lactic Acid Lactic Acid F/U @ 2Hr Calcium 7.8 L Phosphorus Magnesium Total Bilirubin Direct Bilirubin AST ALT Alkaline Phosphatase Lactate Dehydrogenase Troponin I High Sens B-Natriuretic Peptide Total Protein Albumin Vitamin K1 Hold Yellow Top Urine Color Urine Appearance Urine pH Ur Specific [place] Urine Protein Urine Glucose (UA) Urine Ketones Urine Blood Urine Nitrite Ur Leukocyte Esterase Urine RBC Urine WBC Ur Squamous Epith Cells Urine Bacteria Hyaline Casts Bronchial Fluid WBC Bronchial Fluid RBC Bronchial Lymphocytes Bronchial Other Cells Stool Occult Blood Stl C. cayetanensis PCR Stool Rotavirus A PCR Stl Adenov F 40/41 PCR Stool Astrovirus (PCR) Stool Campylobacter PCR Stool Cryptosporidium PCR Stl Sh Tox Pr E STEC PCR Stool E coli O157 PCR Stl Enterotoxigenic E PCR Stool EPEC (PCR) Stool EAEC (PCR) Stl E. histolytica PCR Stool Giardia Lamblia PCR Stl P. shigelloides PCR Stool Salmonella PCR Stool Sapovirus (PCR) Stl Shigella/EIEC PCR St Y.enterocolitica PCR Stool Vibrio (PCR) Stl Vibrio cholerae PCR Stl Norovirus GI/GII PCR Random Vancomycin IgE Respiratory Panel Alexandra Adenovirus (Rapid PCR) B.pert (TEM-PCR) B.parapertussis DNA PCR C. pneumoniae DNA (PCR) C. difficile Tox B Gene Coronavirus OC43 (PCR) Coronavirus HKU1 (PCR) Coronavirus 229E (PCR) Coronavirus NL63 (PCR) CMV Specimen Source CMV Qnt PCR IU/mL CMV Qnt PCR log IU/mL Human Metapneumovir PCR Influenza A (RT-PCR) Influenza A (H1) PCR Influ A (H1/09) PCR Influenza A (H3) PCR Influenza Type A (PCR) Influenza B (RT-PCR) Influenza Type B (PCR) M. pneumoniae (PCR) Parainfluenza 1 (PCR) Parainfluenza 2 (PCR) Parainfluenza 3 (PCR) Parainfluenza 4 (PCR) Aspergillus Ag (EIA) Aspergillus Index Value RSV (PCR) RSV RNA Qual (PCR) Entero/Rhino (PCR) SARS-CoV-2 RNA (RT-PCR) Beta-(1,3)-D-Glucan B-(1,3)-D-Glucan Intrp Blood Type Antibody Screen Crossmatch 01/27/25 01/28/25 01/28/25 20:16 01:19 01:44 WBC RBC Hgb Hct MCV MCH MCHC RDW Plt Count MPV Immature Gran % (Auto) Neut % (Auto) Lymph % (Auto) [place] % (Auto) Eos % (Auto) Baso % (Auto) Lymph # (Auto) [place] # (Auto) Eos # (Auto) Baso # (Auto) Abs Immat Gran (auto) Absolute Neuts (auto) Absolute Nucleated RBC Nucleated RBC % (auto) Neutrophils % (Manual) Band Neutrophils % Lymphocytes % (Manual) Atypical Lymphs % (Man) Monocytes % (Manual) Eosinophils % (Manual) Basophils % (Manual) Metamyelocytes % Myelocytes % Abs Neuts (Manual) Lymphocytes # (Manual) Atyp Lymphs # (Manual) Monocytes # (Manual) Eosinophils # (Manual) Basophils # (Manual) Metamyelocytes # Myelocytes # Nucleated RBCs Hypersegmented Neuts Smudge Cells Toxic Granulation Toxic Vacuolation Dohle Bodies Platelet Estimate Large Platelets Giant Platelets Plt Morphology Comment RBC Morphology Polychromasia Hypochromasia Basophilic Stippling Microcytosis Macrocytosis Target Cells Tear Drop Cells Ovalocytes Stomatocytes Regulo Cells Acanthocytes (Spur) Schistocytes Smear Path Review PT INR APTT Fibrinogen O2 Saturation ABG pH at Pt Temp ABG pCO2 at Pt Temp ABG pO2 at Pt Temp ABG HCO3 ABG Base Excess (Actual) VBG pH VBG pCO2 VBG pO2 VBG HCO3 VBG O2 Saturation VBG Base Excess Sodium Potassium Chloride Carbon Dioxide Anion Gap BUN Creatinine Estim Creat Clear Calc Estimated GFR POC Glucose 234 H 39 L* 43 L* Random Glucose Lactic Acid Lactic Acid F/U @ 2Hr Calcium Phosphorus Magnesium Total Bilirubin Direct Bilirubin AST ALT Alkaline Phosphatase Lactate Dehydrogenase Troponin I High Sens B-Natriuretic Peptide Total Protein Albumin Vitamin K1 Hold Yellow Top Urine Color Urine Appearance Urine pH Ur Specific [place] Urine Protein Urine Glucose (UA) Urine Ketones Urine Blood Urine Nitrite Ur Leukocyte Esterase Urine RBC Urine WBC Ur Squamous Epith Cells Urine Bacteria Hyaline Casts Bronchial Fluid WBC Bronchial Fluid RBC Bronchial Lymphocytes Bronchial Other Cells Stool Occult Blood Stl C. cayetanensis PCR Stool Rotavirus A PCR Stl Adenov F 40/41 PCR Stool Astrovirus (PCR) Stool Campylobacter PCR Stool Cryptosporidium PCR Stl Sh Tox Pr E STEC PCR Stool E coli O157 PCR Stl Enterotoxigenic E PCR Stool EPEC (PCR) Stool EAEC (PCR) Stl E. histolytica PCR Stool Giardia Lamblia PCR Stl P. shigelloides PCR Stool Salmonella PCR Stool Sapovirus (PCR) Stl Shigella/EIEC PCR St Y.enterocolitica PCR Stool Vibrio (PCR) Stl Vibrio cholerae PCR Stl Norovirus GI/GII PCR Random Vancomycin IgE Respiratory Panel Alexandra Adenovirus (Rapid PCR) B.pert (TEM-PCR) B.parapertussis DNA PCR C. pneumoniae DNA (PCR) C. difficile Tox B Gene Coronavirus OC43 (PCR) Coronavirus HKU1 (PCR) Coronavirus 229E (PCR) Coronavirus NL63 (PCR) CMV Specimen Source CMV Qnt PCR IU/mL CMV Qnt PCR log IU/mL Human Metapneumovir PCR Influenza A (RT-PCR) Influenza A (H1) PCR Influ A (H1/09) PCR Influenza A (H3) PCR Influenza Type A (PCR) Influenza B (RT-PCR) Influenza Type B (PCR) M. pneumoniae (PCR) Parainfluenza 1 (PCR) Parainfluenza 2 (PCR) Parainfluenza 3 (PCR) Parainfluenza 4 (PCR) Aspergillus Ag (EIA) Aspergillus Index Value RSV (PCR) RSV RNA Qual (PCR) Entero/Rhino (PCR) SARS-CoV-2 RNA (RT-PCR) Beta-(1,3)-D-Glucan B-(1,3)-D-Glucan Intrp Blood Type Antibody Screen Crossmatch 01/28/25 01/28/25 01/28/25 02:13 03:22 06:36 WBC 6.3 RBC 2.88 L Hgb 8.7 L Hct 25.4 L MCV 88.2 MCH 30.2 MCHC 34.3 RDW 17.2 H Plt Count 401 H MPV 9.9 Immature Gran % (Auto) Cancelled Neut % (Auto) Cancelled Lymph % (Auto) Cancelled [place] % (Auto) Cancelled Eos % (Auto) Cancelled Baso % (Auto) Cancelled Lymph # (Auto) Cancelled [place] # (Auto) Cancelled Eos # (Auto) Cancelled Baso # (Auto) Cancelled Abs Immat Gran (auto) Cancelled Absolute Neuts (auto) Cancelled Absolute Nucleated RBC 0.000 Nucleated RBC % (auto) 0.0 Neutrophils % (Manual) 63 Band Neutrophils % 9 H Lymphocytes % (Manual) 18 L Atypical Lymphs % (Man) 1 Monocytes % (Manual) 6 Eosinophils % (Manual) 1 Basophils % (Manual) 1 Metamyelocytes % 1 Myelocytes % Abs Neuts (Manual) 4.5 Lymphocytes # (Manual) 1.1 L Atyp Lymphs # (Manual) 0.1 Monocytes # (Manual) 0.4 Eosinophils # (Manual) 0.1 Basophils # (Manual) 0.1 Metamyelocytes # 0.1 Myelocytes # Nucleated RBCs Hypersegmented Neuts Smudge Cells Toxic Granulation Toxic Vacuolation Dohle Bodies Platelet Estimate SLIGHTLY INCREASED Large Platelets Giant Platelets Plt Morphology Comment NORMAL RBC Morphology NOTED Polychromasia Hypochromasia Basophilic Stippling Microcytosis 1+ (5-14) Macrocytosis Target Cells Tear Drop Cells Ovalocytes Stomatocytes Regulo Cells 2+ (3-5) Acanthocytes (Spur) Schistocytes 1+ (0-2) Smear Path Review PT INR APTT Fibrinogen O2 Saturation ABG pH at Pt Temp ABG pCO2 at Pt Temp ABG pO2 at Pt Temp ABG HCO3 ABG Base Excess (Actual) VBG pH VBG pCO2 VBG pO2 VBG HCO3 VBG O2 Saturation VBG Base Excess Sodium 138 Potassium 2.4 L* D Chloride 110 H Carbon Dioxide 19 L Anion Gap 11 L BUN 26 H Creatinine 0.74 Estim Creat Clear Calc 73.4 Estimated GFR > 60 POC Glucose 85 162 H Random Glucose 238 H Lactic Acid Lactic Acid F/U @ 2Hr Calcium 7.7 L Phosphorus Magnesium 2.1 Total Bilirubin Direct Bilirubin AST ALT Alkaline Phosphatase Lactate Dehydrogenase Troponin I High Sens B-Natriuretic Peptide Total Protein Albumin Vitamin K1 Hold Yellow Top Urine Color Urine Appearance Urine pH Ur Specific [place] Urine Protein Urine Glucose (UA) Urine Ketones Urine Blood Urine Nitrite Ur Leukocyte Esterase Urine RBC Urine WBC Ur Squamous Epith Cells Urine Bacteria Hyaline Casts Bronchial Fluid WBC Bronchial Fluid RBC Bronchial Lymphocytes Bronchial Other Cells Stool Occult Blood Stl C. cayetanensis PCR Stool Rotavirus A PCR Stl Adenov F 40/41 PCR Stool Astrovirus (PCR) Stool Campylobacter PCR Stool Cryptosporidium PCR Stl Sh Tox Pr E STEC PCR Stool E coli O157 PCR Stl Enterotoxigenic E PCR Stool EPEC (PCR) Stool EAEC (PCR) Stl E. histolytica PCR Stool Giardia Lamblia PCR Stl P. shigelloides PCR Stool Salmonella PCR Stool Sapovirus (PCR) Stl Shigella/EIEC PCR St Y.enterocolitica PCR Stool Vibrio (PCR) Stl Vibrio cholerae PCR Stl Norovirus GI/GII PCR Random Vancomycin IgE Respiratory Panel Alexandra Adenovirus (Rapid PCR) B.pert (TEM-PCR) B.parapertussis DNA PCR C. pneumoniae DNA (PCR) C. difficile Tox B Gene Coronavirus OC43 (PCR) Coronavirus HKU1 (PCR) Coronavirus 229E (PCR) Coronavirus NL63 (PCR) CMV Specimen Source CMV Qnt PCR IU/mL CMV Qnt PCR log IU/mL Human Metapneumovir PCR Influenza A (RT-PCR) Influenza A (H1) PCR Influ A (H1/09) PCR Influenza A (H3) PCR Influenza Type A (PCR) Influenza B (RT-PCR) Influenza Type B (PCR) M. pneumoniae (PCR) Parainfluenza 1 (PCR) Parainfluenza 2 (PCR) Parainfluenza 3 (PCR) Parainfluenza 4 (PCR) Aspergillus Ag (EIA) Aspergillus Index Value RSV (PCR) RSV RNA Qual (PCR) Entero/Rhino (PCR) SARS-CoV-2 RNA (RT-PCR) Beta-(1,3)-D-Glucan B-(1,3)-D-Glucan Intrp Blood Type Antibody Screen Crossmatch 01/28/25 01/28/25 01/28/25 06:47 07:33 11:33 WBC RBC Hgb Hct MCV MCH MCHC RDW Plt Count MPV Immature Gran % (Auto) Neut % (Auto) Lymph % (Auto) [place] % (Auto) Eos % (Auto) Baso % (Auto) Lymph # (Auto) [place] # (Auto) Eos # (Auto) Baso # (Auto) Abs Immat Gran (auto) Absolute Neuts (auto) Absolute Nucleated RBC Nucleated RBC % (auto) Neutrophils % (Manual) Band Neutrophils % Lymphocytes % (Manual) Atypical Lymphs % (Man) Monocytes % (Manual) Eosinophils % (Manual) Basophils % (Manual) Metamyelocytes % Myelocytes % Abs Neuts (Manual) Lymphocytes # (Manual) Atyp Lymphs # (Manual) Monocytes # (Manual) Eosinophils # (Manual) Basophils # (Manual) Metamyelocytes # Myelocytes # Nucleated RBCs Hypersegmented Neuts Smudge Cells Toxic Granulation Toxic Vacuolation Dohle Bodies Platelet Estimate Large Platelets Giant Platelets Plt Morphology Comment RBC Morphology Polychromasia Hypochromasia Basophilic Stippling Microcytosis Macrocytosis Target Cells Tear Drop Cells Ovalocytes Stomatocytes [place]illy Cells Acanthocytes (Spur) Schistocytes Smear Path Review PT INR APTT Fibrinogen O2 Saturation ABG pH at Pt Temp ABG pCO2 at Pt Temp ABG pO2 at Pt Temp ABG HCO3 ABG Base Excess (Actual) VBG pH VBG pCO2 VBG pO2 VBG HCO3 VBG O2 Saturation VBG Base Excess Sodium Potassium Chloride Carbon Dioxide Anion Gap BUN Creatinine Estim Creat Clear Calc Estimated GFR POC Glucose 225 H 179 H 197 H Random Glucose Lactic Acid Lactic Acid F/U @ 2Hr Calcium Phosphorus Magnesium Total Bilirubin Direct Bilirubin AST ALT Alkaline Phosphatase Lactate Dehydrogenase Troponin I High Sens B-Natriuretic Peptide Total Protein Albumin Vitamin K1 Hold Yellow Top Urine Color Urine Appearance Urine pH Ur Specific [place] Urine Protein Urine Glucose (UA) Urine Ketones Urine Blood Urine Nitrite Ur Leukocyte Esterase Urine RBC Urine WBC Ur Squamous Epith Cells Urine Bacteria Hyaline Casts Bronchial Fluid WBC Bronchial Fluid RBC Bronchial Lymphocytes Bronchial Other Cells Stool Occult Blood Stl C. cayetanensis PCR Stool Rotavirus A PCR Stl Adenov F 40/41 PCR Stool Astrovirus (PCR) Stool Campylobacter PCR Stool Cryptosporidium PCR Stl Sh Tox Pr E STEC PCR Stool E coli O157 PCR Stl Enterotoxigenic E PCR Stool EPEC (PCR) Stool EAEC (PCR) Stl E. histolytica PCR Stool Giardia Lamblia PCR Stl P. shigelloides PCR Stool Salmonella PCR Stool Sapovirus (PCR) Stl Shigella/EIEC PCR St Y.enterocolitica PCR Stool Vibrio (PCR) Stl Vibrio cholerae PCR Stl Norovirus GI/GII PCR Random Vancomycin IgE Respiratory Panel Alexandra Adenovirus (Rapid PCR) B.pert (TEM-PCR) B.parapertussis DNA PCR C. pneumoniae DNA (PCR) C. difficile Tox B Gene Coronavirus OC43 (PCR) Coronavirus HKU1 (PCR) Coronavirus 229E (PCR) Coronavirus NL63 (PCR) CMV Specimen Source CMV Qnt PCR IU/mL CMV Qnt PCR log IU/mL Human Metapneumovir PCR Influenza A (RT-PCR) Influenza A (H1) PCR Influ A (H1/09) PCR Influenza A (H3) PCR Influenza Type A (PCR) Influenza B (RT-PCR) Influenza Type B (PCR) M. pneumoniae (PCR) Parainfluenza 1 (PCR) Parainfluenza 2 (PCR) Parainfluenza 3 (PCR) Parainfluenza 4 (PCR) Aspergillus Ag (EIA) Aspergillus Index Value RSV (PCR) RSV RNA Qual (PCR) Entero/Rhino (PCR) SARS-CoV-2 RNA (RT-PCR) Beta-(1,3)-D-Glucan B-(1,3)-D-Glucan Intrp Blood Type Antibody Screen Crossmatch 01/28/25 01/28/25 01/28/25 13:58 15:21 21:26 WBC RBC Hgb Hct MCV MCH MCHC RDW Plt Count MPV Immature Gran % (Auto) Neut % (Auto) Lymph % (Auto) [place] % (Auto) Eos % (Auto) Baso % (Auto) Lymph # (Auto) [place] # (Auto) Eos # (Auto) Baso # (Auto) Abs Immat Gran (auto) Absolute Neuts (auto) Absolute Nucleated RBC Nucleated RBC % (auto) Neutrophils % (Manual) Band Neutrophils % Lymphocytes % (Manual) Atypical Lymphs % (Man) Monocytes % (Manual) Eosinophils % (Manual) Basophils % (Manual) Metamyelocytes % Myelocytes % Abs Neuts (Manual) Lymphocytes # (Manual) Atyp Lymphs # (Manual) Monocytes # (Manual) Eosinophils # (Manual) Basophils # (Manual) Metamyelocytes # Myelocytes # Nucleated RBCs Hypersegmented Neuts Smudge Cells Toxic Granulation Toxic Vacuolation Dohle Bodies Platelet Estimate Large Platelets Giant Platelets Plt Morphology Comment RBC Morphology Polychromasia Hypochromasia Basophilic Stippling Microcytosis Macrocytosis Target Cells Tear Drop Cells Ovalocytes Stomatocytes Tilly Cells Acanthocytes (Spur) Schistocytes Smear Path Review PT INR APTT Fibrinogen O2 Saturation ABG pH at Pt Temp ABG pCO2 at Pt Temp ABG pO2 at Pt Temp ABG HCO3 ABG Base Excess (Actual) VBG pH VBG pCO2 VBG pO2 VBG HCO3 VBG O2 Saturation VBG Base Excess Sodium 137 Potassium 3.8 D Chloride 111 H Carbon Dioxide 21 L Anion Gap 9 L BUN 22 H Creatinine 0.75 Estim Creat Clear Calc 72.8 Estimated GFR > 60 POC Glucose 306 H 101 Random Glucose 272 H Lactic Acid Lactic Acid F/U @ 2Hr Calcium 7.6 L Phosphorus Magnesium Total Bilirubin Direct Bilirubin AST ALT Alkaline Phosphatase Lactate Dehydrogenase Troponin I High Sens B-Natriuretic Peptide Total Protein Albumin Vitamin K1 Hold Yellow Top Urine Color Urine Appearance Urine pH Ur Specific [place] Urine Protein Urine Glucose (UA) Urine Ketones Urine Blood Urine Nitrite Ur Leukocyte Esterase Urine RBC Urine WBC Ur Squamous Epith Cells Urine Bacteria Hyaline Casts Bronchial Fluid WBC Bronchial Fluid RBC Bronchial Lymphocytes Bronchial Other Cells Stool Occult Blood Stl C. cayetanensis PCR Stool Rotavirus A PCR Stl Adenov F 40/41 PCR Stool Astrovirus (PCR) Stool Campylobacter PCR Stool Cryptosporidium PCR Stl Sh Tox Pr E STEC PCR Stool E coli O157 PCR Stl Enterotoxigenic E PCR Stool EPEC (PCR) Stool EAEC (PCR) Stl E. histolytica PCR Stool Giardia Lamblia PCR Stl P. shigelloides PCR Stool Salmonella PCR Stool Sapovirus (PCR) Stl Shigella/EIEC PCR St Y.enterocolitica PCR Stool Vibrio (PCR) Stl Vibrio cholerae PCR Stl Norovirus GI/GII PCR Random Vancomycin IgE Respiratory Panel Alexandra Adenovirus (Rapid PCR) B.pert (TEM-PCR) B.parapertussis DNA PCR C. pneumoniae DNA (PCR) C. difficile Tox B Gene Coronavirus OC43 (PCR) Coronavirus HKU1 (PCR) Coronavirus 229E (PCR) Coronavirus NL63 (PCR) CMV Specimen Source CMV Qnt PCR IU/mL CMV Qnt PCR log IU/mL Human Metapneumovir PCR Influenza A (RT-PCR) Influenza A (H1) PCR Influ A (H1/09) PCR Influenza A (H3) PCR Influenza Type A (PCR) Influenza B (RT-PCR) Influenza Type B (PCR) M. pneumoniae (PCR) Parainfluenza 1 (PCR) Parainfluenza 2 (PCR) Parainfluenza 3 (PCR) Parainfluenza 4 (PCR) Aspergillus Ag (EIA) Aspergillus Index Value RSV (PCR) RSV RNA Qual (PCR) Entero/Rhino (PCR) SARS-CoV-2 RNA (RT-PCR) Beta-(1,3)-D-Glucan B-(1,3)-D-Glucan Intrp Blood Type Antibody Screen Crossmatch 01/29/25 01/29/25 01/29/25 00:34 06:08 06:28 WBC 5.9 RBC 2.89 L Hgb 8.9 L Hct 25.3 L MCV 87.5 MCH 30.8 MCHC 35.2 H RDW 17.3 H Plt Count 431 H MPV 10.7 Immature Gran % (Auto) Cancelled Neut % (Auto) Cancelled Lymph % (Auto) Cancelled [place] % (Auto) Cancelled Eos % (Auto) Cancelled Baso % (Auto) Cancelled Lymph # (Auto) Cancelled [place] # (Auto) Cancelled Eos # (Auto) Cancelled Baso # (Auto) Cancelled Abs Immat Gran (auto) Cancelled Absolute Neuts (auto) Cancelled Absolute Nucleated RBC 0.000 Nucleated RBC % (auto) 0.0 Neutrophils % (Manual) 55 Band Neutrophils % 3 Lymphocytes % (Manual) 30 Atypical Lymphs % (Man) Monocytes % (Manual) 8 Eosinophils % (Manual) 4 Basophils % (Manual) Metamyelocytes % Myelocytes % Abs Neuts (Manual) 3.4 Lymphocytes # (Manual) 1.8 Atyp Lymphs # (Manual) Monocytes # (Manual) 0.5 Eosinophils # (Manual) 0.2 Basophils # (Manual) Metamyelocytes # Myelocytes # Nucleated RBCs Hypersegmented Neuts Smudge Cells Toxic Granulation Toxic Vacuolation Dohle Bodies Platelet Estimate SLIGHTLY INCREASED Large Platelets Giant Platelets Plt Morphology Comment NORMAL RBC Morphology NOTED Polychromasia Hypochromasia 1+ (5-14) Basophilic Stippling Microcytosis Macrocytosis Target Cells Tear Drop Cells Ovalocytes Stomatocytes Regulo Cells 1+ (0-2) Acanthocytes (Spur) Schistocytes Smear Path Review PT INR APTT Fibrinogen O2 Saturation ABG pH at Pt Temp ABG pCO2 at Pt Temp ABG pO2 at Pt Temp ABG HCO3 ABG Base Excess (Actual) VBG pH VBG pCO2 VBG pO2 VBG HCO3 VBG O2 Saturation VBG Base Excess Sodium 135 Potassium 3.1 L Chloride 108 Carbon Dioxide 19 L Anion Gap 11 L BUN 19 H Creatinine 0.59 Estim Creat Clear Calc 100.0 Estimated GFR > 60 POC Glucose 116 H 91 Random Glucose 91 Lactic Acid Lactic Acid F/U @ 2Hr Calcium 7.5 L Phosphorus Magnesium Total Bilirubin Direct Bilirubin AST ALT Alkaline Phosphatase Lactate Dehydrogenase Troponin I High Sens B-Natriuretic Peptide Total Protein Albumin Vitamin K1 Hold Yellow Top Urine Color Urine Appearance Urine pH Ur Specific [place] Urine Protein Urine Glucose (UA) Urine Ketones Urine Blood Urine Nitrite Ur Leukocyte Esterase Urine RBC Urine WBC Ur Squamous Epith Cells Urine Bacteria Hyaline Casts Bronchial Fluid WBC Bronchial Fluid RBC Bronchial Lymphocytes Bronchial Other Cells Stool Occult Blood Stl C. cayetanensis PCR Stool Rotavirus A PCR Stl Adenov F 40/41 PCR Stool Astrovirus (PCR) Stool Campylobacter PCR Stool Cryptosporidium PCR Stl Sh Tox Pr E STEC PCR Stool E coli O157 PCR Stl Enterotoxigenic E PCR Stool EPEC (PCR) Stool EAEC (PCR) Stl E. histolytica PCR Stool Giardia Lamblia PCR Stl P. shigelloides PCR Stool Salmonella PCR Stool Sapovirus (PCR) Stl Shigella/EIEC PCR St Y.enterocolitica PCR Stool Vibrio (PCR) Stl Vibrio cholerae PCR Stl Norovirus GI/GII PCR Random Vancomycin IgE Respiratory Panel Alexandra Adenovirus (Rapid PCR) B.pert (TEM-PCR) B.parapertussis DNA PCR C. pneumoniae DNA (PCR) C. difficile Tox B Gene Coronavirus OC43 (PCR) Coronavirus HKU1 (PCR) Coronavirus 229E (PCR) Coronavirus NL63 (PCR) CMV Specimen Source CMV Qnt PCR IU/mL CMV Qnt PCR log IU/mL Human Metapneumovir PCR Influenza A (RT-PCR) Influenza A (H1) PCR Influ A (H1/09) PCR Influenza A (H3) PCR Influenza Type A (PCR) Influenza B (RT-PCR) Influenza Type B (PCR) M. pneumoniae (PCR) Parainfluenza 1 (PCR) Parainfluenza 2 (PCR) Parainfluenza 3 (PCR) Parainfluenza 4 (PCR) Aspergillus Ag (EIA) Aspergillus Index Value RSV (PCR) RSV RNA Qual (PCR) Entero/Rhino (PCR) SARS-CoV-2 RNA (RT-PCR) Beta-(1,3)-D-Glucan B-(1,3)-D-Glucan Intrp Blood Type Antibody Screen Crossmatch 01/29/25 01/29/25 01/29/25 11:24 16:37 21:20 WBC RBC Hgb Hct MCV MCH MCHC RDW Plt Count MPV Immature Gran % (Auto) Neut % (Auto) Lymph % (Auto) [place] % (Auto) Eos % (Auto) Baso % (Auto) Lymph # (Auto) [place] # (Auto) Eos # (Auto) Baso # (Auto) Abs Immat Gran (auto) Absolute Neuts (auto) Absolute Nucleated RBC Nucleated RBC % (auto) Neutrophils % (Manual) Band Neutrophils % Lymphocytes % (Manual) Atypical Lymphs % (Man) Monocytes % (Manual) Eosinophils % (Manual) Basophils % (Manual) Metamyelocytes % Myelocytes % Abs Neuts (Manual) Lymphocytes # (Manual) Atyp Lymphs # (Manual) Monocytes # (Manual) Eosinophils # (Manual) Basophils # (Manual) Metamyelocytes # Myelocytes # Nucleated RBCs Hypersegmented Neuts Smudge Cells Toxic Granulation Toxic Vacuolation Dohle Bodies Platelet Estimate Large Platelets Giant Platelets Plt Morphology Comment RBC Morphology Polychromasia Hypochromasia Basophilic Stippling Microcytosis Macrocytosis Target Cells Tear Drop Cells Ovalocytes Stomatocytes Regulo Cells Acanthocytes (Spur) Schistocytes Smear Path Review PT INR APTT Fibrinogen O2 Saturation ABG pH at Pt Temp ABG pCO2 at Pt Temp ABG pO2 at Pt Temp ABG HCO3 ABG Base Excess (Actual) VBG pH VBG pCO2 VBG pO2 VBG HCO3 VBG O2 Saturation VBG Base Excess Sodium Potassium Chloride Carbon Dioxide Anion Gap BUN Creatinine Estim Creat Clear Calc Estimated GFR POC Glucose 164 H 173 H 167 H Random Glucose Lactic Acid Lactic Acid F/U @ 2Hr Calcium Phosphorus Magnesium Total Bilirubin Direct Bilirubin AST ALT Alkaline Phosphatase Lactate Dehydrogenase Troponin I High Sens B-Natriuretic Peptide Total Protein Albumin Vitamin K1 Hold Yellow Top Urine Color Urine Appearance Urine pH Ur Specific [place] Urine Protein Urine Glucose (UA) Urine Ketones Urine Blood Urine Nitrite Ur Leukocyte Esterase Urine RBC Urine WBC Ur Squamous Epith Cells Urine Bacteria Hyaline Casts Bronchial Fluid WBC Bronchial Fluid RBC Bronchial Lymphocytes Bronchial Other Cells Stool Occult Blood Stl C. cayetanensis PCR Stool Rotavirus A PCR Stl Adenov F 40/ PCR Stool Astrovirus (PCR) Stool Campylobacter PCR Stool Cryptosporidium PCR Stl Sh Tox Pr E STEC PCR Stool E coli O157 PCR Stl Enterotoxigenic E PCR Stool EPEC (PCR) Stool EAEC (PCR) Stl E. histolytica PCR Stool Giardia Lamblia PCR Stl P. shigelloides PCR Stool Salmonella PCR Stool Sapovirus (PCR) Stl Shigella/EIEC PCR St Y.enterocolitica PCR Stool Vibrio (PCR) Stl Vibrio cholerae PCR Stl Norovirus GI/GII PCR Random Vancomycin IgE Respiratory Panel Alexandra Adenovirus (Rapid PCR) B.pert (TEM-PCR) B.parapertussis DNA PCR C. pneumoniae DNA (PCR) C. difficile Tox B Gene Coronavirus OC43 (PCR) Coronavirus HKU1 (PCR) Coronavirus 229E (PCR) Coronavirus NL63 (PCR) CMV Specimen Source CMV Qnt PCR IU/mL CMV Qnt PCR log IU/mL Human Metapneumovir PCR Influenza A (RT-PCR) Influenza A (H1) PCR Influ A (H1/09) PCR Influenza A (H3) PCR Influenza Type A (PCR) Influenza B (RT-PCR) Influenza Type B (PCR) M. pneumoniae (PCR) Parainfluenza 1 (PCR) Parainfluenza 2 (PCR) Parainfluenza 3 (PCR) Parainfluenza 4 (PCR) Aspergillus Ag (EIA) Aspergillus Index Value RSV (PCR) RSV RNA Qual (PCR) Entero/Rhino (PCR) SARS-CoV-2 RNA (RT-PCR) Beta-(1,3)-D-Glucan B-(1,3)-D-Glucan Intrp Blood Type Antibody Screen Crossmatch 01/30/25 01/30/25 01/30/25 00:13 06:16 06:24 WBC 4.1 L RBC 2.72 L Hgb 8.4 L Hct 23.7 L MCV 87.1 MCH 30.9 MCHC 35.4 H RDW 16.6 H Plt Count 407 H MPV 9.8 Immature Gran % (Auto) Neut % (Auto) Lymph % (Auto) [place] % (Auto) Eos % (Auto) Baso % (Auto) Lymph # (Auto) [place] # (Auto) Eos # (Auto) Baso # (Auto) Abs Immat Gran (auto) Absolute Neuts (auto) Absolute Nucleated RBC 0.020 H Nucleated RBC % (auto) 0.5 H Neutrophils % (Manual) Band Neutrophils % Lymphocytes % (Manual) Atypical Lymphs % (Man) Monocytes % (Manual) Eosinophils % (Manual) Basophils % (Manual) Metamyelocytes % Myelocytes % Abs Neuts (Manual) Lymphocytes # (Manual) Atyp Lymphs # (Manual) Monocytes # (Manual) Eosinophils # (Manual) Basophils # (Manual) Metamyelocytes # Myelocytes # Nucleated RBCs Hypersegmented Neuts Smudge Cells Toxic Granulation Toxic Vacuolation Dohle Bodies Platelet Estimate Large Platelets Giant Platelets Plt Morphology Comment RBC Morphology Polychromasia Hypochromasia Basophilic Stippling Microcytosis Macrocytosis Target Cells Tear Drop Cells Ovalocytes Stomatocytes Regulo Cells Acanthocytes (Spur) Schistocytes Smear Path Review PT INR APTT Fibrinogen O2 Saturation ABG pH at Pt Temp ABG pCO2 at Pt Temp ABG pO2 at Pt Temp ABG HCO3 ABG Base Excess (Actual) VBG pH VBG pCO2 VBG pO2 VBG HCO3 VBG O2 Saturation VBG Base Excess Sodium 136 Potassium 3.0 L Chloride 111 H Carbon Dioxide 19 L Anion Gap 9 L BUN 15 Creatinine 0.52 Estim Creat Clear Calc 113.2 Estimated GFR > 60 POC Glucose 97 81 Random Glucose 84 Lactic Acid Lactic Acid F/U @ 2Hr Calcium 7.4 L Phosphorus Magnesium 1.8 Total Bilirubin Direct Bilirubin AST ALT Alkaline Phosphatase Lactate Dehydrogenase Troponin I High Sens B-Natriuretic Peptide Total Protein Albumin Vitamin K1 Hold Yellow Top Urine Color Urine Appearance Urine pH Ur Specific [place] Urine Protein Urine Glucose (UA) Urine Ketones Urine Blood Urine Nitrite Ur Leukocyte Esterase Urine RBC Urine WBC Ur Squamous Epith Cells Urine Bacteria Hyaline Casts Bronchial Fluid WBC Bronchial Fluid RBC Bronchial Lymphocytes Bronchial Other Cells Stool Occult Blood Stl C. cayetanensis PCR Stool Rotavirus A PCR Stl Adenov F 40/41 PCR Stool Astrovirus (PCR) Stool Campylobacter PCR Stool Cryptosporidium PCR Stl Sh Tox Pr E STEC PCR Stool E coli O157 PCR Stl Enterotoxigenic E PCR Stool EPEC (PCR) Stool EAEC (PCR) Stl E. histolytica PCR Stool Giardia Lamblia PCR Stl P. shigelloides PCR Stool Salmonella PCR Stool Sapovirus (PCR) Stl Shigella/EIEC PCR St Y.enterocolitica PCR Stool Vibrio (PCR) Stl Vibrio cholerae PCR Stl Norovirus GI/GII PCR Random Vancomycin IgE Respiratory Panel Alexandra Adenovirus (Rapid PCR) B.pert (TEM-PCR) B.parapertussis DNA PCR C. pneumoniae DNA (PCR) C. difficile Tox B Gene Coronavirus OC43 (PCR) Coronavirus HKU1 (PCR) Coronavirus 229E (PCR) Coronavirus NL63 (PCR) CMV Specimen Source CMV Qnt PCR IU/mL CMV Qnt PCR log IU/mL Human Metapneumovir PCR Influenza A (RT-PCR) Influenza A (H1) PCR Influ A (H1/09) PCR Influenza A (H3) PCR Influenza Type A (PCR) Influenza B (RT-PCR) Influenza Type B (PCR) M. pneumoniae (PCR) Parainfluenza 1 (PCR) Parainfluenza 2 (PCR) Parainfluenza 3 (PCR) Parainfluenza 4 (PCR) Aspergillus Ag (EIA) Aspergillus Index Value RSV (PCR) RSV RNA Qual (PCR) Entero/Rhino (PCR) SARS-CoV-2 RNA (RT-PCR) Beta-(1,3)-D-Glucan B-(1,3)-D-Glucan Intrp Blood Type Antibody Screen Crossmatch 01/30/25 01/30/25 01/30/25 06:33 08:58 10:42 WBC RBC Hgb Hct MCV MCH MCHC RDW Plt Count MPV Immature Gran % (Auto) Neut % (Auto) Lymph % (Auto) [place] % (Auto) Eos % (Auto) Baso % (Auto) Lymph # (Auto) [place] # (Auto) Eos # (Auto) Baso # (Auto) Abs Immat Gran (auto) Absolute Neuts (auto) Absolute Nucleated RBC Nucleated RBC % (auto) Neutrophils % (Manual) Band Neutrophils % Lymphocytes % (Manual) Atypical Lymphs % (Man) Monocytes % (Manual) Eosinophils % (Manual) Basophils % (Manual) Metamyelocytes % Myelocytes % Abs Neuts (Manual) Lymphocytes # (Manual) Atyp Lymphs # (Manual) Monocytes # (Manual) Eosinophils # (Manual) Basophils # (Manual) Metamyelocytes # Myelocytes # Nucleated RBCs Hypersegmented Neuts Smudge Cells Toxic Granulation Toxic Vacuolation Dohle Bodies Platelet Estimate Large Platelets Giant Platelets Plt Morphology Comment RBC Morphology Polychromasia Hypochromasia Basophilic Stippling Microcytosis Macrocytosis Target Cells Tear Drop Cells Ovalocytes Stomatocytes Tilly Cells Acanthocytes (Spur) Schistocytes Smear Path Review PT INR APTT Fibrinogen O2 Saturation 99.0 ABG pH at Pt Temp 7.51 H ABG pCO2 at Pt Temp 26 L ABG pO2 at Pt Temp 72 L ABG HCO3 21 L ABG Base Excess (Actual) -0.8 VBG pH 7.53 H VBG pCO2 24 VBG pO2 85 VBG HCO3 20 L VBG O2 Saturation Not Reportable VBG Base Excess -0.9 Sodium Potassium Chloride Carbon Dioxide Anion Gap BUN Creatinine Estim Creat Clear Calc Estimated GFR POC Glucose Random Glucose Lactic Acid Lactic Acid F/U @ 2Hr Calcium Phosphorus Magnesium Total Bilirubin Direct Bilirubin AST ALT Alkaline Phosphatase Lactate Dehydrogenase Troponin I High Sens B-Natriuretic Peptide Total Protein Albumin Vitamin K1 Hold Yellow Top Urine Color Urine Appearance Urine pH Ur Specific [place] Urine Protein Urine Glucose (UA) Urine Ketones Urine Blood Urine Nitrite Ur Leukocyte Esterase Urine RBC Urine WBC Ur Squamous Epith Cells Urine Bacteria Hyaline Casts Bronchial Fluid WBC Bronchial Fluid RBC Bronchial Lymphocytes Bronchial Other Cells Stool Occult Blood Stl C. cayetanensis PCR Stool Rotavirus A PCR Stl Adenov F 40/41 PCR Stool Astrovirus (PCR) Stool Campylobacter PCR Stool Cryptosporidium PCR Stl Sh Tox Pr E STEC PCR Stool E coli O157 PCR Stl Enterotoxigenic E PCR Stool EPEC (PCR) Stool EAEC (PCR) Stl E. histolytica PCR Stool Giardia Lamblia PCR Stl P. shigelloides PCR Stool Salmonella PCR Stool Sapovirus (PCR) Stl Shigella/EIEC PCR St Y.enterocolitica PCR Stool Vibrio (PCR) Stl Vibrio cholerae PCR Stl Norovirus GI/GII PCR Random Vancomycin IgE Respiratory Panel Alexandra Adenovirus (Rapid PCR) B.pert (TEM-PCR) B.parapertussis DNA PCR C. pneumoniae DNA (PCR) C. difficile Tox B Gene NEGATIVE Coronavirus OC43 (PCR) Coronavirus HKU1 (PCR) Coronavirus 229E (PCR) Coronavirus NL63 (PCR) CMV Specimen Source CMV Qnt PCR IU/mL CMV Qnt PCR log IU/mL Human Metapneumovir PCR Influenza A (RT-PCR) Influenza A (H1) PCR Influ A (H1/09) PCR Influenza A (H3) PCR Influenza Type A (PCR) Influenza B (RT-PCR) Influenza Type B (PCR) M. pneumoniae (PCR) Parainfluenza 1 (PCR) Parainfluenza 2 (PCR) Parainfluenza 3 (PCR) Parainfluenza 4 (PCR) Aspergillus Ag (EIA) Aspergillus Index Value RSV (PCR) RSV RNA Qual (PCR) Entero/Rhino (PCR) SARS-CoV-2 RNA (RT-PCR) Beta-(1,3)-D-Glucan B-(1,3)-D-Glucan Intrp Blood Type Antibody Screen Crossmatch 01/30/25 01/30/25 01/30/25 11:23 13:40 17:40 WBC RBC Hgb Hct MCV MCH MCHC RDW Plt Count MPV Immature Gran % (Auto) Neut % (Auto) Lymph % (Auto) [place] % (Auto) Eos % (Auto) Baso % (Auto) Lymph # (Auto) [place] # (Auto) Eos # (Auto) Baso # (Auto) Abs Immat Gran (auto) Absolute Neuts (auto) Absolute Nucleated RBC Nucleated RBC % (auto) Neutrophils % (Manual) Band Neutrophils % Lymphocytes % (Manual) Atypical Lymphs % (Man) Monocytes % (Manual) Eosinophils % (Manual) Basophils % (Manual) Metamyelocytes % Myelocytes % Abs Neuts (Manual) Lymphocytes # (Manual) Atyp Lymphs # (Manual) Monocytes # (Manual) Eosinophils # (Manual) Basophils # (Manual) Metamyelocytes # Myelocytes # Nucleated RBCs Hypersegmented Neuts Smudge Cells Toxic Granulation Toxic Vacuolation Dohle Bodies Platelet Estimate Large Platelets Giant Platelets Plt Morphology Comment RBC Morphology Polychromasia Hypochromasia Basophilic Stippling Microcytosis Macrocytosis Target Cells Tear Drop Cells Ovalocytes Stomatocytes Tilly Cells Acanthocytes (Spur) Schistocytes Smear Path Review PT INR APTT Fibrinogen O2 Saturation ABG pH at Pt Temp ABG pCO2 at Pt Temp ABG pO2 at Pt Temp ABG HCO3 ABG Base Excess (Actual) VBG pH VBG pCO2 VBG pO2 VBG HCO3 VBG O2 Saturation VBG Base Excess Sodium Potassium Chloride Carbon Dioxide Anion Gap BUN Creatinine Estim Creat Clear Calc Estimated GFR POC Glucose 135 H 205 H Random Glucose Lactic Acid Lactic Acid F/U @ 2Hr Calcium Phosphorus Magnesium Total Bilirubin Direct Bilirubin AST ALT Alkaline Phosphatase Lactate Dehydrogenase Troponin I High Sens B-Natriuretic Peptide Total Protein Albumin Vitamin K1 Hold Yellow Top Urine Color Urine Appearance Urine pH Ur Specific [place] Urine Protein Urine Glucose (UA) Urine Ketones Urine Blood Urine Nitrite Ur Leukocyte Esterase Urine RBC Urine WBC Ur Squamous Epith Cells Urine Bacteria Hyaline Casts Bronchial Fluid WBC Bronchial Fluid RBC Bronchial Lymphocytes Bronchial Other Cells Stool Occult Blood Stl C. cayetanensis PCR Not Detected Stool Rotavirus A PCR Not Detected Stl Adenov F 40/41 PCR Not Detected Stool Astrovirus (PCR) Not Detected Stool Campylobacter PCR Not Detected Stool Cryptosporidium PCR Not Detected Stl Sh Tox Pr E STEC PCR Not Detected Stool E coli O157 PCR Not applicable Stl Enterotoxigenic E PCR Not Detected Stool EPEC (PCR) Not Detected Stool EAEC (PCR) Not Detected Stl E. histolytica PCR Not Detected Stool Giardia Lamblia PCR Not Detected Stl P. shigelloides PCR Not Detected Stool Salmonella PCR Not Detected Stool Sapovirus (PCR) Not Detected Stl Shigella/EIEC PCR Not Detected St Y.enterocolitica PCR Not Detected Stool Vibrio (PCR) Not Detected Stl Vibrio cholerae PCR Not Detected Stl Norovirus GI/GII PCR Not Detected Random Vancomycin IgE Respiratory Panel Alexandra Adenovirus (Rapid PCR) B.pert (TEM-PCR) B.parapertussis DNA PCR C. pneumoniae DNA (PCR) C. difficile Tox B Gene Coronavirus OC43 (PCR) Coronavirus HKU1 (PCR) Coronavirus 229E (PCR) Coronavirus NL63 (PCR) CMV Specimen Source CMV Qnt PCR IU/mL CMV Qnt PCR log IU/mL Human Metapneumovir PCR Influenza A (RT-PCR) Influenza A (H1) PCR Influ A (H1/09) PCR Influenza A (H3) PCR Influenza Type A (PCR) Influenza B (RT-PCR) Influenza Type B (PCR) M. pneumoniae (PCR) Parainfluenza 1 (PCR) Parainfluenza 2 (PCR) Parainfluenza 3 (PCR) Parainfluenza 4 (PCR) Aspergillus Ag (EIA) Aspergillus Index Value RSV (PCR) RSV RNA Qual (PCR) Entero/Rhino (PCR) SARS-CoV-2 RNA (RT-PCR) Beta-(1,3)-D-Glucan B-(1,3)-D-Glucan Intrp Blood Type Antibody Screen Crossmatch 01/30/25 01/30/25 01/31/25 22:40 23:58 06:08 WBC RBC Hgb Hct MCV MCH MCHC RDW Plt Count MPV Immature Gran % (Auto) Neut % (Auto) Lymph % (Auto) [place] % (Auto) Eos % (Auto) Baso % (Auto) Lymph # (Auto) [place] # (Auto) Eos # (Auto) Baso # (Auto) Abs Immat Gran (auto) Absolute Neuts (auto) Absolute Nucleated RBC Nucleated RBC % (auto) Neutrophils % (Manual) Band Neutrophils % Lymphocytes % (Manual) Atypical Lymphs % (Man) Monocytes % (Manual) Eosinophils % (Manual) Basophils % (Manual) Metamyelocytes % Myelocytes % Abs Neuts (Manual) Lymphocytes # (Manual) Atyp Lymphs # (Manual) Monocytes # (Manual) Eosinophils # (Manual) Basophils # (Manual) Metamyelocytes # Myelocytes # Nucleated RBCs Hypersegmented Neuts Smudge Cells Toxic Granulation Toxic Vacuolation Dohle Bodies Platelet Estimate Large Platelets Giant Platelets Plt Morphology Comment RBC Morphology Polychromasia Hypochromasia Basophilic Stippling Microcytosis Macrocytosis Target Cells Tear Drop Cells Ovalocytes Stomatocytes Tilly Cells Acanthocytes (Spur) Schistocytes Smear Path Review PT INR APTT Fibrinogen O2 Saturation ABG pH at Pt Temp ABG pCO2 at Pt Temp ABG pO2 at Pt Temp ABG HCO3 ABG Base Excess (Actual) VBG pH VBG pCO2 VBG pO2 VBG HCO3 VBG O2 Saturation VBG Base Excess Sodium Potassium Chloride Carbon Dioxide Anion Gap BUN Creatinine Estim Creat Clear Calc Estimated GFR POC Glucose 169 H 197 H Random Glucose Lactic Acid 1.3 Lactic Acid F/U @ 2Hr Calcium Phosphorus Magnesium Total Bilirubin Direct Bilirubin AST ALT Alkaline Phosphatase Lactate Dehydrogenase Troponin I High Sens B-Natriuretic Peptide Total Protein Albumin Vitamin K1 Hold Yellow Top Urine Color Urine Appearance Urine pH Ur Specific [place] Urine Protein Urine Glucose (UA) Urine Ketones Urine Blood Urine Nitrite Ur Leukocyte Esterase Urine RBC Urine WBC Ur Squamous Epith Cells Urine Bacteria Hyaline Casts Bronchial Fluid WBC Bronchial Fluid RBC Bronchial Lymphocytes Bronchial Other Cells Stool Occult Blood Stl C. cayetanensis PCR Stool Rotavirus A PCR Stl Adenov F 40/41 PCR Stool Astrovirus (PCR) Stool Campylobacter PCR Stool Cryptosporidium PCR Stl Sh Tox Pr E STEC PCR Stool E coli O157 PCR Stl Enterotoxigenic E PCR Stool EPEC (PCR) Stool EAEC (PCR) Stl E. histolytica PCR Stool Giardia Lamblia PCR Stl P. shigelloides PCR Stool Salmonella PCR Stool Sapovirus (PCR) Stl Shigella/EIEC PCR St Y.enterocolitica PCR Stool Vibrio (PCR) Stl Vibrio cholerae PCR Stl Norovirus GI/GII PCR Random Vancomycin IgE Respiratory Panel Alexandra Adenovirus (Rapid PCR) B.pert (TEM-PCR) B.parapertussis DNA PCR C. pneumoniae DNA (PCR) C. difficile Tox B Gene Coronavirus OC43 (PCR) Coronavirus HKU1 (PCR) Coronavirus 229E (PCR) Coronavirus NL63 (PCR) CMV Specimen Source CMV Qnt PCR IU/mL CMV Qnt PCR log IU/mL Human Metapneumovir PCR Influenza A (RT-PCR) Influenza A (H1) PCR Influ A (H1/09) PCR Influenza A (H3) PCR Influenza Type A (PCR) Influenza B (RT-PCR) Influenza Type B (PCR) M. pneumoniae (PCR) Parainfluenza 1 (PCR) Parainfluenza 2 (PCR) Parainfluenza 3 (PCR) Parainfluenza 4 (PCR) Aspergillus Ag (EIA) Aspergillus Index Value RSV (PCR) RSV RNA Qual (PCR) Entero/Rhino (PCR) SARS-CoV-2 RNA (RT-PCR) Beta-(1,3)-D-Glucan B-(1,3)-D-Glucan Intrp Blood Type Antibody Screen Crossmatch 01/31/25 01/31/25 01/31/25 06:58 07:21 09:56 WBC 5.2 RBC 2.86 L Hgb 8.7 L Hct 24.5 L MCV 85.7 MCH 30.4 MCHC 35.5 H RDW 16.8 H Plt Count 349 MPV 10.3 Immature Gran % (Auto) Neut % (Auto) Lymph % (Auto) [place] % (Auto) Eos % (Auto) Baso % (Auto) Lymph # (Auto) [place] # (Auto) Eos # (Auto) Baso # (Auto) Abs Immat Gran (auto) Absolute Neuts (auto) Absolute Nucleated RBC 0.000 Nucleated RBC % (auto) 0.0 Neutrophils % (Manual) Band Neutrophils % Lymphocytes % (Manual) Atypical Lymphs % (Man) Monocytes % (Manual) Eosinophils % (Manual) Basophils % (Manual) Metamyelocytes % Myelocytes % Abs Neuts (Manual) Lymphocytes # (Manual) Atyp Lymphs # (Manual) Monocytes # (Manual) Eosinophils # (Manual) Basophils # (Manual) Metamyelocytes # Myelocytes # Nucleated RBCs Hypersegmented Neuts Smudge Cells Toxic Granulation Toxic Vacuolation Dohle Bodies Platelet Estimate Large Platelets Giant Platelets Plt Morphology Comment RBC Morphology Polychromasia Hypochromasia Basophilic Stippling Microcytosis Macrocytosis Target Cells Tear Drop Cells Ovalocytes Stomatocytes [place]illy Cells Acanthocytes (Spur) Schistocytes Smear Path Review PT INR APTT Fibrinogen O2 Saturation ABG pH at Pt Temp ABG pCO2 at Pt Temp ABG pO2 at Pt Temp ABG HCO3 ABG Base Excess (Actual) VBG pH VBG pCO2 VBG pO2 VBG HCO3 VBG O2 Saturation VBG Base Excess Sodium 136 Potassium 3.5 Chloride 110 H Carbon Dioxide 19 L Anion Gap 11 L BUN 15 Creatinine 0.58 Estim Creat Clear Calc 96.1 Estimated GFR > 60 POC Glucose 190 H Random Glucose 200 H Lactic Acid 0.9 Lactic Acid F/U @ 2Hr Calcium 7.7 L Phosphorus Magnesium 1.8 Total Bilirubin 0.7 Direct Bilirubin 0.3 AST 17 ALT 8 Alkaline Phosphatase 146 H Lactate Dehydrogenase 175 Troponin I High Sens B-Natriuretic Peptide Total Protein 4.9 L Albumin 2.7 L Vitamin K1 Hold Yellow Top Urine Color Urine Appearance Urine pH Ur Specific [place] Urine Protein Urine Glucose (UA) Urine Ketones Urine Blood Urine Nitrite Ur Leukocyte Esterase Urine RBC Urine WBC Ur Squamous Epith Cells Urine Bacteria Hyaline Casts Bronchial Fluid WBC Bronchial Fluid RBC Bronchial Lymphocytes Bronchial Other Cells Stool Occult Blood Stl C. cayetanensis PCR Stool Rotavirus A PCR Stl Adenov F 40/41 PCR Stool Astrovirus (PCR) Stool Campylobacter PCR Stool Cryptosporidium PCR Stl Sh Tox Pr E STEC PCR Stool E coli O157 PCR Stl Enterotoxigenic E PCR Stool EPEC (PCR) Stool EAEC (PCR) Stl E. histolytica PCR Stool Giardia Lamblia PCR Stl P. shigelloides PCR Stool Salmonella PCR Stool Sapovirus (PCR) Stl Shigella/EIEC PCR St Y.enterocolitica PCR Stool Vibrio (PCR) Stl Vibrio cholerae PCR Stl Norovirus GI/GII PCR Random Vancomycin IgE Respiratory Panel Alexandra Adenovirus (Rapid PCR) B.pert (TEM-PCR) B.parapertussis DNA PCR C. pneumoniae DNA (PCR) C. difficile Tox B Gene Coronavirus OC43 (PCR) Coronavirus HKU1 (PCR) Coronavirus 229E (PCR) Coronavirus NL63 (PCR) CMV Specimen Source CMV Qnt PCR IU/mL CMV Qnt PCR log IU/mL Human Metapneumovir PCR Influenza A (RT-PCR) Influenza A (H1) PCR Influ A (H1/09) PCR Influenza A (H3) PCR Influenza Type A (PCR) Influenza B (RT-PCR) Influenza Type B (PCR) M. pneumoniae (PCR) Parainfluenza 1 (PCR) Parainfluenza 2 (PCR) Parainfluenza 3 (PCR) Parainfluenza 4 (PCR) Aspergillus Ag (EIA) Aspergillus Index Value RSV (PCR) RSV RNA Qual (PCR) Entero/Rhino (PCR) SARS-CoV-2 RNA (RT-PCR) Beta-(1,3)-D-Glucan B-(1,3)-D-Glucan Intrp Blood Type B Positive Antibody Screen NEGATIVE Crossmatch See Detail 01/31/25 01/31/25 01/31/25 11:18 17:24 19:43 WBC RBC Hgb Hct MCV MCH MCHC RDW Plt Count MPV Immature Gran % (Auto) Neut % (Auto) Lymph % (Auto) [place] % (Auto) Eos % (Auto) Baso % (Auto) Lymph # (Auto) [place] # (Auto) Eos # (Auto) Baso # (Auto) Abs Immat Gran (auto) Absolute Neuts (auto) Absolute Nucleated RBC Nucleated RBC % (auto) Neutrophils % (Manual) Band Neutrophils % Lymphocytes % (Manual) Atypical Lymphs % (Man) Monocytes % (Manual) Eosinophils % (Manual) Basophils % (Manual) Metamyelocytes % Myelocytes % Abs Neuts (Manual) Lymphocytes # (Manual) Atyp Lymphs # (Manual) Monocytes # (Manual) Eosinophils # (Manual) Basophils # (Manual) Metamyelocytes # Myelocytes # Nucleated RBCs Hypersegmented Neuts Smudge Cells Toxic Granulation Toxic Vacuolation Dohle Bodies Platelet Estimate Large Platelets Giant Platelets Plt Morphology Comment RBC Morphology Polychromasia Hypochromasia Basophilic Stippling Microcytosis Macrocytosis Target Cells Tear Drop Cells Ovalocytes Stomatocytes Regulo Cells Acanthocytes (Spur) Schistocytes Smear Path Review PT INR APTT Fibrinogen O2 Saturation ABG pH at Pt Temp ABG pCO2 at Pt Temp ABG pO2 at Pt Temp ABG HCO3 ABG Base Excess (Actual) VBG pH VBG pCO2 VBG pO2 VBG HCO3 VBG O2 Saturation VBG Base Excess Sodium Potassium Chloride Carbon Dioxide Anion Gap BUN Creatinine Estim Creat Clear Calc Estimated GFR POC Glucose 163 H 215 H 192 H Random Glucose Lactic Acid Lactic Acid F/U @ 2Hr Calcium Phosphorus Magnesium Total Bilirubin Direct Bilirubin AST ALT Alkaline Phosphatase Lactate Dehydrogenase Troponin I High Sens B-Natriuretic Peptide Total Protein Albumin Vitamin K1 Hold Yellow Top Urine Color Urine Appearance Urine pH Ur Specific [place] Urine Protein Urine Glucose (UA) Urine Ketones Urine Blood Urine Nitrite Ur Leukocyte Esterase Urine RBC Urine WBC Ur Squamous Epith Cells Urine Bacteria Hyaline Casts Bronchial Fluid WBC Bronchial Fluid RBC Bronchial Lymphocytes Bronchial Other Cells Stool Occult Blood Stl C. cayetanensis PCR Stool Rotavirus A PCR Stl Adenov F 40/41 PCR Stool Astrovirus (PCR) Stool Campylobacter PCR Stool Cryptosporidium PCR Stl Sh Tox Pr E STEC PCR Stool E coli O157 PCR Stl Enterotoxigenic E PCR Stool EPEC (PCR) Stool EAEC (PCR) Stl E. histolytica PCR Stool Giardia Lamblia PCR Stl P. shigelloides PCR Stool Salmonella PCR Stool Sapovirus (PCR) Stl Shigella/EIEC PCR St Y.enterocolitica PCR Stool Vibrio (PCR) Stl Vibrio cholerae PCR Stl Norovirus GI/GII PCR Random Vancomycin IgE Respiratory Panel Alexandra Adenovirus (Rapid PCR) B.pert (TEM-PCR) B.parapertussis DNA PCR C. pneumoniae DNA (PCR) C. difficile Tox B Gene Coronavirus OC43 (PCR) Coronavirus HKU1 (PCR) Coronavirus 229E (PCR) Coronavirus NL63 (PCR) CMV Specimen Source CMV Qnt PCR IU/mL CMV Qnt PCR log IU/mL Human Metapneumovir PCR Influenza A (RT-PCR) Influenza A (H1) PCR Influ A (H1/09) PCR Influenza A (H3) PCR Influenza Type A (PCR) Influenza B (RT-PCR) Influenza Type B (PCR) M. pneumoniae (PCR) Parainfluenza 1 (PCR) Parainfluenza 2 (PCR) Parainfluenza 3 (PCR) Parainfluenza 4 (PCR) Aspergillus Ag (EIA) Aspergillus Index Value RSV (PCR) RSV RNA Qual (PCR) Entero/Rhino (PCR) SARS-CoV-2 RNA (RT-PCR) Beta-(1,3)-D-Glucan B-(1,3)-D-Glucan Intrp Blood Type Antibody Screen Crossmatch 02/01/25 02/01/25 02/01/25 06:11 06:20 07:39 WBC 5.2 RBC 2.65 L Hgb 8.0 L Hct 22.6 L MCV 85.3 MCH 30.2 MCHC 35.4 H RDW 16.8 H Plt Count 433 H MPV 8.6 L Immature Gran % (Auto) Neut % (Auto) Lymph % (Auto) [place] % (Auto) Eos % (Auto) Baso % (Auto) Lymph # (Auto) [place] # (Auto) Eos # (Auto) Baso # (Auto) Abs Immat Gran (auto) Absolute Neuts (auto) Absolute Nucleated RBC 0.000 Nucleated RBC % (auto) 0.0 Neutrophils % (Manual) Band Neutrophils % Lymphocytes % (Manual) Atypical Lymphs % (Man) Monocytes % (Manual) Eosinophils % (Manual) Basophils % (Manual) Metamyelocytes % Myelocytes % Abs Neuts (Manual) Lymphocytes # (Manual) Atyp Lymphs # (Manual) Monocytes # (Manual) Eosinophils # (Manual) Basophils # (Manual) Metamyelocytes # Myelocytes # Nucleated RBCs Hypersegmented Neuts Smudge Cells Toxic Granulation Toxic Vacuolation Dohle Bodies Platelet Estimate Large Platelets Giant Platelets Plt Morphology Comment RBC Morphology Polychromasia Hypochromasia Basophilic Stippling Microcytosis Macrocytosis Target Cells Tear Drop Cells Ovalocytes Stomatocytes Tilly Cells Acanthocytes (Spur) Schistocytes Smear Path Review PT INR APTT Fibrinogen O2 Saturation ABG pH at Pt Temp ABG pCO2 at Pt Temp ABG pO2 at Pt Temp ABG HCO3 ABG Base Excess (Actual) VBG pH 7.50 H VBG pCO2 27 VBG pO2 34 VBG HCO3 21 L VBG O2 Saturation 58.0 VBG Base Excess -0.9 Sodium 137 Potassium 2.8 L* Chloride 109 H Carbon Dioxide 19 L Anion Gap 12 BUN 10 Creatinine 0.58 Estim Creat Clear Calc 100.0 Estimated GFR > 60 POC Glucose 69 Random Glucose 81 Lactic Acid Lactic Acid F/U @ 2Hr Calcium 7.5 L Phosphorus Magnesium 1.7 Total Bilirubin 0.6 Direct Bilirubin 0.3 AST 30 ALT 6 Alkaline Phosphatase 125 H Lactate Dehydrogenase Troponin I High Sens B-Natriuretic Peptide Total Protein 4.5 L Albumin 2.5 L Vitamin K1 Hold Yellow Top Urine Color Urine Appearance Urine pH Ur Specific [place] Urine Protein Urine Glucose (UA) Urine Ketones Urine Blood Urine Nitrite Ur Leukocyte Esterase Urine RBC Urine WBC Ur Squamous Epith Cells Urine Bacteria Hyaline Casts Bronchial Fluid WBC Bronchial Fluid RBC Bronchial Lymphocytes Bronchial Other Cells Stool Occult Blood Stl C. cayetanensis PCR Stool Rotavirus A PCR Stl Adenov F 40/ PCR Stool Astrovirus (PCR) Stool Campylobacter PCR Stool Cryptosporidium PCR Stl Sh Tox Pr E STEC PCR Stool E coli O157 PCR Stl Enterotoxigenic E PCR Stool EPEC (PCR) Stool EAEC (PCR) Stl E. histolytica PCR Stool Giardia Lamblia PCR Stl P. shigelloides PCR Stool Salmonella PCR Stool Sapovirus (PCR) Stl Shigella/EIEC PCR St Y.enterocolitica PCR Stool Vibrio (PCR) Stl Vibrio cholerae PCR Stl Norovirus GI/GII PCR Random Vancomycin IgE Respiratory Panel Alexandra Adenovirus (Rapid PCR) B.pert (TEM-PCR) B.parapertussis DNA PCR C. pneumoniae DNA (PCR) C. difficile Tox B Gene Coronavirus OC43 (PCR) Coronavirus HKU1 (PCR) Coronavirus 229E (PCR) Coronavirus NL63 (PCR) CMV Specimen Source CMV Qnt PCR IU/mL CMV Qnt PCR log IU/mL Human Metapneumovir PCR Influenza A (RT-PCR) Influenza A (H1) PCR Influ A (H1/09) PCR Influenza A (H3) PCR Influenza Type A (PCR) Influenza B (RT-PCR) Influenza Type B (PCR) M. pneumoniae (PCR) Parainfluenza 1 (PCR) Parainfluenza 2 (PCR) Parainfluenza 3 (PCR) Parainfluenza 4 (PCR) Aspergillus Ag (EIA) Aspergillus Index Value RSV (PCR) RSV RNA Qual (PCR) Entero/Rhino (PCR) SARS-CoV-2 RNA (RT-PCR) Beta-(1,3)-D-Glucan B-(1,3)-D-Glucan Intrp Blood Type Antibody Screen Crossmatch 02/01/25 02/01/25 02/01/25 11:23 17:34 20:18 WBC RBC Hgb Hct MCV MCH MCHC RDW Plt Count MPV Immature Gran % (Auto) Neut % (Auto) Lymph % (Auto) [place] % (Auto) Eos % (Auto) Baso % (Auto) Lymph # (Auto) [place] # (Auto) Eos # (Auto) Baso # (Auto) Abs Immat Gran (auto) Absolute Neuts (auto) Absolute Nucleated RBC Nucleated RBC % (auto) Neutrophils % (Manual) Band Neutrophils % Lymphocytes % (Manual) Atypical Lymphs % (Man) Monocytes % (Manual) Eosinophils % (Manual) Basophils % (Manual) Metamyelocytes % Myelocytes % Abs Neuts (Manual) Lymphocytes # (Manual) Atyp Lymphs # (Manual) Monocytes # (Manual) Eosinophils # (Manual) Basophils # (Manual) Metamyelocytes # Myelocytes # Nucleated RBCs Hypersegmented Neuts Smudge Cells Toxic Granulation Toxic Vacuolation Dohle Bodies Platelet Estimate Large Platelets Giant Platelets Plt Morphology Comment RBC Morphology Polychromasia Hypochromasia Basophilic Stippling Microcytosis Macrocytosis Target Cells Tear Drop Cells Ovalocytes Stomatocytes Tilly Cells Acanthocytes (Spur) Schistocytes Smear Path Review PT INR APTT Fibrinogen O2 Saturation ABG pH at Pt Temp ABG pCO2 at Pt Temp ABG pO2 at Pt Temp ABG HCO3 ABG Base Excess (Actual) VBG pH VBG pCO2 VBG pO2 VBG HCO3 VBG O2 Saturation VBG Base Excess Sodium Potassium Chloride Carbon Dioxide Anion Gap BUN Creatinine Estim Creat Clear Calc Estimated GFR POC Glucose 108 152 H 154 H Random Glucose Lactic Acid Lactic Acid F/U @ 2Hr Calcium Phosphorus Magnesium Total Bilirubin Direct Bilirubin AST ALT Alkaline Phosphatase Lactate Dehydrogenase Troponin I High Sens B-Natriuretic Peptide Total Protein Albumin Vitamin K1 Hold Yellow Top Urine Color Urine Appearance Urine pH Ur Specific [place] Urine Protein Urine Glucose (UA) Urine Ketones Urine Blood Urine Nitrite Ur Leukocyte Esterase Urine RBC Urine WBC Ur Squamous Epith Cells Urine Bacteria Hyaline Casts Bronchial Fluid WBC Bronchial Fluid RBC Bronchial Lymphocytes Bronchial Other Cells Stool Occult Blood Stl C. cayetanensis PCR Stool Rotavirus A PCR Stl Adenov F 40/41 PCR Stool Astrovirus (PCR) Stool Campylobacter PCR Stool Cryptosporidium PCR Stl Sh Tox Pr E STEC PCR Stool E coli O157 PCR Stl Enterotoxigenic E PCR Stool EPEC (PCR) Stool EAEC (PCR) Stl E. histolytica PCR Stool Giardia Lamblia PCR Stl P. shigelloides PCR Stool Salmonella PCR Stool Sapovirus (PCR) Stl Shigella/EIEC PCR St Y.enterocolitica PCR Stool Vibrio (PCR) Stl Vibrio cholerae PCR Stl Norovirus GI/GII PCR Random Vancomycin IgE Respiratory Panel Alexandra Adenovirus (Rapid PCR) B.pert (TEM-PCR) B.parapertussis DNA PCR C. pneumoniae DNA (PCR) C. difficile Tox B Gene Coronavirus OC43 (PCR) Coronavirus HKU1 (PCR) Coronavirus 229E (PCR) Coronavirus NL63 (PCR) CMV Specimen Source CMV Qnt PCR IU/mL CMV Qnt PCR log IU/mL Human Metapneumovir PCR Influenza A (RT-PCR) Influenza A (H1) PCR Influ A (H1/09) PCR Influenza A (H3) PCR Influenza Type A (PCR) Influenza B (RT-PCR) Influenza Type B (PCR) M. pneumoniae (PCR) Parainfluenza 1 (PCR) Parainfluenza 2 (PCR) Parainfluenza 3 (PCR) Parainfluenza 4 (PCR) Aspergillus Ag (EIA) Aspergillus Index Value RSV (PCR) RSV RNA Qual (PCR) Entero/Rhino (PCR) SARS-CoV-2 RNA (RT-PCR) Beta-(1,3)-D-Glucan B-(1,3)-D-Glucan Intrp Blood Type Antibody Screen Crossmatch 02/02/25 02/02/25 02/02/25 06:24 07:15 07:28 WBC 3.9 L RBC 2.40 L Hgb 7.2 L Hct 20.1 L* MCV 83.8 MCH 30.0 MCHC 35.8 H RDW 16.4 H Plt Count TNP MPV 10.1 Immature Gran % (Auto) Neut % (Auto) Lymph % (Auto) [place] % (Auto) Eos % (Auto) Baso % (Auto) Lymph # (Auto) [place] # (Auto) Eos # (Auto) Baso # (Auto) Abs Immat Gran (auto) Absolute Neuts (auto) Absolute Nucleated RBC 0.000 Nucleated RBC % (auto) 0.0 Neutrophils % (Manual) Band Neutrophils % Lymphocytes % (Manual) Atypical Lymphs % (Man) Monocytes % (Manual) Eosinophils % (Manual) Basophils % (Manual) Metamyelocytes % Myelocytes % Abs Neuts (Manual) Lymphocytes # (Manual) Atyp Lymphs # (Manual) Monocytes # (Manual) Eosinophils # (Manual) Basophils # (Manual) Metamyelocytes # Myelocytes # Nucleated RBCs Hypersegmented Neuts Smudge Cells Toxic Granulation Toxic Vacuolation Dohle Bodies Platelet Estimate Large Platelets Giant Platelets Plt Morphology Comment RBC Morphology Polychromasia Hypochromasia Basophilic Stippling Microcytosis Macrocytosis Target Cells Tear Drop Cells Ovalocytes Stomatocytes Tilly Cells Acanthocytes (Spur) Schistocytes Smear Path Review PT INR APTT Fibrinogen O2 Saturation ABG pH at Pt Temp ABG pCO2 at Pt Temp ABG pO2 at Pt Temp ABG HCO3 ABG Base Excess (Actual) VBG pH VBG pCO2 VBG pO2 VBG HCO3 VBG O2 Saturation VBG Base Excess Sodium 136 Potassium 2.6 L* Chloride 111 H Carbon Dioxide 17 L Anion Gap 11 L BUN 8 L Creatinine 0.59 Estim Creat Clear Calc 101.4 Estimated GFR > 60 POC Glucose 89 Random Glucose 104 Lactic Acid Lactic Acid F/U @ 2Hr Calcium 7.4 L Phosphorus Magnesium Total Bilirubin Direct Bilirubin AST ALT Alkaline Phosphatase Lactate Dehydrogenase Troponin I High Sens B-Natriuretic Peptide Total Protein Albumin Vitamin K1 Hold Yellow Top Urine Color Urine Appearance Urine pH Ur Specific [place] Urine Protein Urine Glucose (UA) Urine Ketones Urine Blood Urine Nitrite Ur Leukocyte Esterase Urine RBC Urine WBC Ur Squamous Epith Cells Urine Bacteria Hyaline Casts Bronchial Fluid WBC Bronchial Fluid RBC Bronchial Lymphocytes Bronchial Other Cells Stool Occult Blood Stl C. cayetanensis PCR Stool Rotavirus A PCR Stl Adenov F 40/41 PCR Stool Astrovirus (PCR) Stool Campylobacter PCR Stool Cryptosporidium PCR Stl Sh Tox Pr E STEC PCR Stool E coli O157 PCR Stl Enterotoxigenic E PCR Stool EPEC (PCR) Stool EAEC (PCR) Stl E. histolytica PCR Stool Giardia Lamblia PCR Stl P. shigelloides PCR Stool Salmonella PCR Stool Sapovirus (PCR) Stl Shigella/EIEC PCR St Y.enterocolitica PCR Stool Vibrio (PCR) Stl Vibrio cholerae PCR Stl Norovirus GI/GII PCR Random Vancomycin IgE Respiratory Panel Alexandra Adenovirus (Rapid PCR) B.pert (TEM-PCR) B.parapertussis DNA PCR C. pneumoniae DNA (PCR) C. difficile Tox B Gene Coronavirus OC43 (PCR) Coronavirus HKU1 (PCR) Coronavirus 229E (PCR) Coronavirus NL63 (PCR) CMV Specimen Source CMV Qnt PCR IU/mL CMV Qnt PCR log IU/mL Human Metapneumovir PCR Influenza A (RT-PCR) Influenza A (H1) PCR Influ A (H1/09) PCR Influenza A (H3) PCR Influenza Type A (PCR) Influenza B (RT-PCR) Influenza Type B (PCR) M. pneumoniae (PCR) Parainfluenza 1 (PCR) Parainfluenza 2 (PCR) Parainfluenza 3 (PCR) Parainfluenza 4 (PCR) Aspergillus Ag (EIA) Aspergillus Index Value RSV (PCR) RSV RNA Qual (PCR) Entero/Rhino (PCR) SARS-CoV-2 RNA (RT-PCR) Beta-(1,3)-D-Glucan B-(1,3)-D-Glucan Intrp Blood Type Antibody Screen Crossmatch 02/02/25 02/02/25 02/02/25 11:42 16:16 20:32 WBC RBC Hgb Hct MCV MCH MCHC RDW Plt Count MPV Immature Gran % (Auto) Neut % (Auto) Lymph % (Auto) [place] % (Auto) Eos % (Auto) Baso % (Auto) Lymph # (Auto) [place] # (Auto) Eos # (Auto) Baso # (Auto) Abs Immat Gran (auto) Absolute Neuts (auto) Absolute Nucleated RBC Nucleated RBC % (auto) Neutrophils % (Manual) Band Neutrophils % Lymphocytes % (Manual) Atypical Lymphs % (Man) Monocytes % (Manual) Eosinophils % (Manual) Basophils % (Manual) Metamyelocytes % Myelocytes % Abs Neuts (Manual) Lymphocytes # (Manual) Atyp Lymphs # (Manual) Monocytes # (Manual) Eosinophils # (Manual) Basophils # (Manual) Metamyelocytes # Myelocytes # Nucleated RBCs Hypersegmented Neuts Smudge Cells Toxic Granulation Toxic Vacuolation Dohle Bodies Platelet Estimate Large Platelets Giant Platelets Plt Morphology Comment RBC Morphology Polychromasia Hypochromasia Basophilic Stippling Microcytosis Macrocytosis Target Cells Tear Drop Cells Ovalocytes Stomatocytes Tilly Cells Acanthocytes (Spur) Schistocytes Smear Path Review PT INR APTT Fibrinogen O2 Saturation ABG pH at Pt Temp ABG pCO2 at Pt Temp ABG pO2 at Pt Temp ABG HCO3 ABG Base Excess (Actual) VBG pH VBG pCO2 VBG pO2 VBG HCO3 VBG O2 Saturation VBG Base Excess Sodium Potassium Chloride Carbon Dioxide Anion Gap BUN Creatinine Estim Creat Clear Calc Estimated GFR POC Glucose 90 86 120 H Random Glucose Lactic Acid Lactic Acid F/U @ 2Hr Calcium Phosphorus Magnesium Total Bilirubin Direct Bilirubin AST ALT Alkaline Phosphatase Lactate Dehydrogenase Troponin I High Sens B-Natriuretic Peptide Total Protein Albumin Vitamin K1 Hold Yellow Top Urine Color Urine Appearance Urine pH Ur Specific [place] Urine Protein Urine Glucose (UA) Urine Ketones Urine Blood Urine Nitrite Ur Leukocyte Esterase Urine RBC Urine WBC Ur Squamous Epith Cells Urine Bacteria Hyaline Casts Bronchial Fluid WBC Bronchial Fluid RBC Bronchial Lymphocytes Bronchial Other Cells Stool Occult Blood Stl C. cayetanensis PCR Stool Rotavirus A PCR Stl Adenov F 40/41 PCR Stool Astrovirus (PCR) Stool Campylobacter PCR Stool Cryptosporidium PCR Stl Sh Tox Pr E STEC PCR Stool E coli O157 PCR Stl Enterotoxigenic E PCR Stool EPEC (PCR) Stool EAEC (PCR) Stl E. histolytica PCR Stool Giardia Lamblia PCR Stl P. shigelloides PCR Stool Salmonella PCR Stool Sapovirus (PCR) Stl Shigella/EIEC PCR St Y.enterocolitica PCR Stool Vibrio (PCR) Stl Vibrio cholerae PCR Stl Norovirus GI/GII PCR Random Vancomycin IgE Respiratory Panel Alexandra Adenovirus (Rapid PCR) B.pert (TEM-PCR) B.parapertussis DNA PCR C. pneumoniae DNA (PCR) C. difficile Tox B Gene Coronavirus OC43 (PCR) Coronavirus HKU1 (PCR) Coronavirus 229E (PCR) Coronavirus NL63 (PCR) CMV Specimen Source CMV Qnt PCR IU/mL CMV Qnt PCR log IU/mL Human Metapneumovir PCR Influenza A (RT-PCR) Influenza A (H1) PCR Influ A (H1/09) PCR Influenza A (H3) PCR Influenza Type A (PCR) Influenza B (RT-PCR) Influenza Type B (PCR) M. pneumoniae (PCR) Parainfluenza 1 (PCR) Parainfluenza 2 (PCR) Parainfluenza 3 (PCR) Parainfluenza 4 (PCR) Aspergillus Ag (EIA) Aspergillus Index Value RSV (PCR) RSV RNA Qual (PCR) Entero/Rhino (PCR) SARS-CoV-2 RNA (RT-PCR) Beta-(1,3)-D-Glucan B-(1,3)-D-Glucan Intrp Blood Type Antibody Screen Crossmatch 02/03/25 02/03/25 02/03/25 07:03 07:04 07:34 WBC 4.4 L RBC 3.11 L D Hgb 9.4 L D Hct 25.9 L D MCV 83.3 MCH 30.2 MCHC 36.3 H RDW 16.7 H Plt Count 378 MPV 8.8 L Immature Gran % (Auto) Neut % (Auto) Lymph % (Auto) [place] % (Auto) Eos % (Auto) Baso % (Auto) Lymph # (Auto) [place] # (Auto) Eos # (Auto) Baso # (Auto) Abs Immat Gran (auto) Absolute Neuts (auto) Absolute Nucleated RBC 0.000 Nucleated RBC % (auto) 0.0 Neutrophils % (Manual) Band Neutrophils % Lymphocytes % (Manual) Atypical Lymphs % (Man) Monocytes % (Manual) Eosinophils % (Manual) Basophils % (Manual) Metamyelocytes % Myelocytes % Abs Neuts (Manual) Lymphocytes # (Manual) Atyp Lymphs # (Manual) Monocytes # (Manual) Eosinophils # (Manual) Basophils # (Manual) Metamyelocytes # Myelocytes # Nucleated RBCs Hypersegmented Neuts Smudge Cells Toxic Granulation Toxic Vacuolation Dohle Bodies Platelet Estimate Large Platelets Giant Platelets Plt Morphology Comment RBC Morphology Polychromasia Hypochromasia Basophilic Stippling Microcytosis Macrocytosis Target Cells Tear Drop Cells Ovalocytes Stomatocytes Tilly Cells Acanthocytes (Spur) Schistocytes Smear Path Review PT INR APTT Fibrinogen O2 Saturation ABG pH at Pt Temp ABG pCO2 at Pt Temp ABG pO2 at Pt Temp ABG HCO3 ABG Base Excess (Actual) VBG pH VBG pCO2 VBG pO2 VBG HCO3 VBG O2 Saturation VBG Base Excess Sodium 137 Potassium 2.7 L* Chloride 110 H Carbon Dioxide 18 L Anion Gap 12 BUN 9 Creatinine 0.56 Estim Creat Clear Calc 107.3 Estimated GFR > 60 POC Glucose 50 L* Random Glucose 48 L* Lactic Acid Lactic Acid F/U @ 2Hr Calcium 7.4 L Phosphorus Magnesium 1.5 L Total Bilirubin Direct Bilirubin AST ALT Alkaline Phosphatase Lactate Dehydrogenase Troponin I High Sens B-Natriuretic Peptide Total Protein Albumin Vitamin K1 Hold Yellow Top Urine Color Urine Appearance Urine pH Ur Specific [place] Urine Protein Urine Glucose (UA) Urine Ketones Urine Blood Urine Nitrite Ur Leukocyte Esterase Urine RBC Urine WBC Ur Squamous Epith Cells Urine Bacteria Hyaline Casts Bronchial Fluid WBC Bronchial Fluid RBC Bronchial Lymphocytes Bronchial Other Cells Stool Occult Blood Stl C. cayetanensis PCR Stool Rotavirus A PCR Stl Adenov F 40/41 PCR Stool Astrovirus (PCR) Stool Campylobacter PCR Stool Cryptosporidium PCR Stl Sh Tox Pr E STEC PCR Stool E coli O157 PCR Stl Enterotoxigenic E PCR Stool EPEC (PCR) Stool EAEC (PCR) Stl E. histolytica PCR Stool Giardia Lamblia PCR Stl P. shigelloides PCR Stool Salmonella PCR Stool Sapovirus (PCR) Stl Shigella/EIEC PCR St Y.enterocolitica PCR Stool Vibrio (PCR) Stl Vibrio cholerae PCR Stl Norovirus GI/GII PCR Random Vancomycin IgE Respiratory Panel Alexandra Adenovirus (Rapid PCR) B.pert (TEM-PCR) B.parapertussis DNA PCR C. pneumoniae DNA (PCR) C. difficile Tox B Gene Coronavirus OC43 (PCR) Coronavirus HKU1 (PCR) Coronavirus 229E (PCR) Coronavirus NL63 (PCR) CMV Specimen Source CMV Qnt PCR IU/mL CMV Qnt PCR log IU/mL Human Metapneumovir PCR Influenza A (RT-PCR) Influenza A (H1) PCR Influ A (H1/09) PCR Influenza A (H3) PCR Influenza Type A (PCR) Influenza B (RT-PCR) Influenza Type B (PCR) M. pneumoniae (PCR) Parainfluenza 1 (PCR) Parainfluenza 2 (PCR) Parainfluenza 3 (PCR) Parainfluenza 4 (PCR) Aspergillus Ag (EIA) Aspergillus Index Value RSV (PCR) RSV RNA Qual (PCR) Entero/Rhino (PCR) SARS-CoV-2 RNA (RT-PCR) Beta-(1,3)-D-Glucan B-(1,3)-D-Glucan Intrp Blood Type Antibody Screen Crossmatch 02/03/25 02/03/25 02/03/25 08:30 10:03 12:14 WBC RBC Hgb Hct MCV MCH MCHC RDW Plt Count MPV Immature Gran % (Auto) Neut % (Auto) Lymph % (Auto) [place] % (Auto) Eos % (Auto) Baso % (Auto) Lymph # (Auto) [place] # (Auto) Eos # (Auto) Baso # (Auto) Abs Immat Gran (auto) Absolute Neuts (auto) Absolute Nucleated RBC Nucleated RBC % (auto) Neutrophils % (Manual) Band Neutrophils % Lymphocytes % (Manual) Atypical Lymphs % (Man) Monocytes % (Manual) Eosinophils % (Manual) Basophils % (Manual) Metamyelocytes % Myelocytes % Abs Neuts (Manual) Lymphocytes # (Manual) Atyp Lymphs # (Manual) Monocytes # (Manual) Eosinophils # (Manual) Basophils # (Manual) Metamyelocytes # Myelocytes # Nucleated RBCs Hypersegmented Neuts Smudge Cells Toxic Granulation Toxic Vacuolation Dohle Bodies Platelet Estimate Large Platelets Giant Platelets Plt Morphology Comment RBC Morphology Polychromasia Hypochromasia Basophilic Stippling Microcytosis Macrocytosis Target Cells Tear Drop Cells Ovalocytes Stomatocytes Regulo Cells Acanthocytes (Spur) Schistocytes Smear Path Review PT INR APTT Fibrinogen O2 Saturation ABG pH at Pt Temp ABG pCO2 at Pt Temp ABG pO2 at Pt Temp ABG HCO3 ABG Base Excess (Actual) VBG pH VBG pCO2 VBG pO2 VBG HCO3 VBG O2 Saturation VBG Base Excess Sodium Potassium Chloride Carbon Dioxide Anion Gap BUN Creatinine Estim Creat Clear Calc Estimated GFR POC Glucose 66 88 69 Random Glucose Lactic Acid Lactic Acid F/U @ 2Hr Calcium Phosphorus Magnesium Total Bilirubin Direct Bilirubin AST ALT Alkaline Phosphatase Lactate Dehydrogenase Troponin I High Sens B-Natriuretic Peptide Total Protein Albumin Vitamin K1 Hold Yellow Top Urine Color Urine Appearance Urine pH Ur Specific [place] Urine Protein Urine Glucose (UA) Urine Ketones Urine Blood Urine Nitrite Ur Leukocyte Esterase Urine RBC Urine WBC Ur Squamous Epith Cells Urine Bacteria Hyaline Casts Bronchial Fluid WBC Bronchial Fluid RBC Bronchial Lymphocytes Bronchial Other Cells Stool Occult Blood Stl C. cayetanensis PCR Stool Rotavirus A PCR Stl Adenov F 40/41 PCR Stool Astrovirus (PCR) Stool Campylobacter PCR Stool Cryptosporidium PCR Stl Sh Tox Pr E STEC PCR Stool E coli O157 PCR Stl Enterotoxigenic E PCR Stool EPEC (PCR) Stool EAEC (PCR) Stl E. histolytica PCR Stool Giardia Lamblia PCR Stl P. shigelloides PCR Stool Salmonella PCR Stool Sapovirus (PCR) Stl Shigella/EIEC PCR St Y.enterocolitica PCR Stool Vibrio (PCR) Stl Vibrio cholerae PCR Stl Norovirus GI/GII PCR Random Vancomycin IgE Respiratory Panel Alexandra Adenovirus (Rapid PCR) B.pert (TEM-PCR) B.parapertussis DNA PCR C. pneumoniae DNA (PCR) C. difficile Tox B Gene Coronavirus OC43 (PCR) Coronavirus HKU1 (PCR) Coronavirus 229E (PCR) Coronavirus NL63 (PCR) CMV Specimen Source CMV Qnt PCR IU/mL CMV Qnt PCR log IU/mL Human Metapneumovir PCR Influenza A (RT-PCR) Influenza A (H1) PCR Influ A (H1/09) PCR Influenza A (H3) PCR Influenza Type A (PCR) Influenza B (RT-PCR) Influenza Type B (PCR) M. pneumoniae (PCR) Parainfluenza 1 (PCR) Parainfluenza 2 (PCR) Parainfluenza 3 (PCR) Parainfluenza 4 (PCR) Aspergillus Ag (EIA) Aspergillus Index Value RSV (PCR) RSV RNA Qual (PCR) Entero/Rhino (PCR) SARS-CoV-2 RNA (RT-PCR) Beta-(1,3)-D-Glucan B-(1,3)-D-Glucan Intrp Blood Type Antibody Screen Crossmatch 02/03/25 02/03/25 02/04/25 15:40 19:46 07:08 WBC 3.6 L RBC 3.28 L Hgb 9.7 L Hct 27.8 L MCV 84.8 MCH 29.6 MCHC 34.9 RDW 16.3 H Plt Count 363 MPV 9.1 L Immature Gran % (Auto) Neut % (Auto) Lymph % (Auto) [place] % (Auto) Eos % (Auto) Baso % (Auto) Lymph # (Auto) [place] # (Auto) Eos # (Auto) Baso # (Auto) Abs Immat Gran (auto) Absolute Neuts (auto) Absolute Nucleated RBC 0.000 Nucleated RBC % (auto) 0.0 Neutrophils % (Manual) Band Neutrophils % Lymphocytes % (Manual) Atypical Lymphs % (Man) Monocytes % (Manual) Eosinophils % (Manual) Basophils % (Manual) Metamyelocytes % Myelocytes % Abs Neuts (Manual) Lymphocytes # (Manual) Atyp Lymphs # (Manual) Monocytes # (Manual) Eosinophils # (Manual) Basophils # (Manual) Metamyelocytes # Myelocytes # Nucleated RBCs Hypersegmented Neuts Smudge Cells Toxic Granulation Toxic Vacuolation Dohle Bodies Platelet Estimate Large Platelets Giant Platelets Plt Morphology Comment RBC Morphology Polychromasia Hypochromasia Basophilic Stippling Microcytosis Macrocytosis Target Cells Tear Drop Cells Ovalocytes Stomatocytes Regulo Cells Acanthocytes (Spur) Schistocytes Smear Path Review PT INR APTT Fibrinogen O2 Saturation ABG pH at Pt Temp ABG pCO2 at Pt Temp ABG pO2 at Pt Temp ABG HCO3 ABG Base Excess (Actual) VBG pH VBG pCO2 VBG pO2 VBG HCO3 VBG O2 Saturation VBG Base Excess Sodium 134 L Potassium 2.9 L* Chloride 109 H Carbon Dioxide 18 L Anion Gap 10 L BUN 8 L Creatinine 0.54 Estim Creat Clear Calc 110.0 Estimated GFR > 60 POC Glucose 100 127 H Random Glucose 115 Lactic Acid Lactic Acid F/U @ 2Hr Calcium 7.4 L Phosphorus Magnesium 1.8 Total Bilirubin Direct Bilirubin AST ALT Alkaline Phosphatase Lactate Dehydrogenase Troponin I High Sens B-Natriuretic Peptide Total Protein Albumin Vitamin K1 Hold Yellow Top Urine Color Urine Appearance Urine pH Ur Specific [place] Urine Protein Urine Glucose (UA) Urine Ketones Urine Blood Urine Nitrite Ur Leukocyte Esterase Urine RBC Urine WBC Ur Squamous Epith Cells Urine Bacteria Hyaline Casts Bronchial Fluid WBC Bronchial Fluid RBC Bronchial Lymphocytes Bronchial Other Cells Stool Occult Blood Stl C. cayetanensis PCR Stool Rotavirus A PCR Stl Adenov F 40/41 PCR Stool Astrovirus (PCR) Stool Campylobacter PCR Stool Cryptosporidium PCR Stl Sh Tox Pr E STEC PCR Stool E coli O157 PCR Stl Enterotoxigenic E PCR Stool EPEC (PCR) Stool EAEC (PCR) Stl E. histolytica PCR Stool Giardia Lamblia PCR Stl P. shigelloides PCR Stool Salmonella PCR Stool Sapovirus (PCR) Stl Shigella/EIEC PCR St Y.enterocolitica PCR Stool Vibrio (PCR) Stl Vibrio cholerae PCR Stl Norovirus GI/GII PCR Random Vancomycin IgE Respiratory Panel Alexandra Adenovirus (Rapid PCR) B.pert (TEM-PCR) B.parapertussis DNA PCR C. pneumoniae DNA (PCR) C. difficile Tox B Gene Coronavirus OC43 (PCR) Coronavirus HKU1 (PCR) Coronavirus 229E (PCR) Coronavirus NL63 (PCR) CMV Specimen Source CMV Qnt PCR IU/mL CMV Qnt PCR log IU/mL Human Metapneumovir PCR Influenza A (RT-PCR) Influenza A (H1) PCR Influ A (H1/09) PCR Influenza A (H3) PCR Influenza Type A (PCR) Influenza B (RT-PCR) Influenza Type B (PCR) M. pneumoniae (PCR) Parainfluenza 1 (PCR) Parainfluenza 2 (PCR) Parainfluenza 3 (PCR) Parainfluenza 4 (PCR) Aspergillus Ag (EIA) Aspergillus Index Value RSV (PCR) RSV RNA Qual (PCR) Entero/Rhino (PCR) SARS-CoV-2 RNA (RT-PCR) Beta-(1,3)-D-Glucan B-(1,3)-D-Glucan Intrp Blood Type Antibody Screen Crossmatch 02/04/25 02/04/25 02/04/25 07:38 11:17 16:28 WBC RBC Hgb Hct MCV MCH MCHC RDW Plt Count MPV Immature Gran % (Auto) Neut % (Auto) Lymph % (Auto) [place] % (Auto) Eos % (Auto) Baso % (Auto) Lymph # (Auto) [place] # (Auto) Eos # (Auto) Baso # (Auto) Abs Immat Gran (auto) Absolute Neuts (auto) Absolute Nucleated RBC Nucleated RBC % (auto) Neutrophils % (Manual) Band Neutrophils % Lymphocytes % (Manual) Atypical Lymphs % (Man) Monocytes % (Manual) Eosinophils % (Manual) Basophils % (Manual) Metamyelocytes % Myelocytes % Abs Neuts (Manual) Lymphocytes # (Manual) Atyp Lymphs # (Manual) Monocytes # (Manual) Eosinophils # (Manual) Basophils # (Manual) Metamyelocytes # Myelocytes # Nucleated RBCs Hypersegmented Neuts Smudge Cells Toxic Granulation Toxic Vacuolation Dohle Bodies Platelet Estimate Large Platelets Giant Platelets Plt Morphology Comment RBC Morphology Polychromasia Hypochromasia Basophilic Stippling Microcytosis Macrocytosis Target Cells Tear Drop Cells Ovalocytes Stomatocytes Regulo Cells Acanthocytes (Spur) Schistocytes Smear Path Review PT INR APTT Fibrinogen O2 Saturation ABG pH at Pt Temp ABG pCO2 at Pt Temp ABG pO2 at Pt Temp ABG HCO3 ABG Base Excess (Actual) VBG pH VBG pCO2 VBG pO2 VBG HCO3 VBG O2 Saturation VBG Base Excess Sodium Potassium Chloride Carbon Dioxide Anion Gap BUN Creatinine Estim Creat Clear Calc Estimated GFR POC Glucose 124 H 203 H 114 Random Glucose Lactic Acid Lactic Acid F/U @ 2Hr Calcium Phosphorus Magnesium Total Bilirubin Direct Bilirubin AST ALT Alkaline Phosphatase Lactate Dehydrogenase Troponin I High Sens B-Natriuretic Peptide Total Protein Albumin Vitamin K1 Hold Yellow Top Urine Color Urine Appearance Urine pH Ur Specific [place] Urine Protein Urine Glucose (UA) Urine Ketones Urine Blood Urine Nitrite Ur Leukocyte Esterase Urine RBC Urine WBC Ur Squamous Epith Cells Urine Bacteria Hyaline Casts Bronchial Fluid WBC Bronchial Fluid RBC Bronchial Lymphocytes Bronchial Other Cells Stool Occult Blood Stl C. cayetanensis PCR Stool Rotavirus A PCR Stl Adenov F 40/41 PCR Stool Astrovirus (PCR) Stool Campylobacter PCR Stool Cryptosporidium PCR Stl Sh Tox Pr E STEC PCR Stool E coli O157 PCR Stl Enterotoxigenic E PCR Stool EPEC (PCR) Stool EAEC (PCR) Stl E. histolytica PCR Stool Giardia Lamblia PCR Stl P. shigelloides PCR Stool Salmonella PCR Stool Sapovirus (PCR) Stl Shigella/EIEC PCR St Y.enterocolitica PCR Stool Vibrio (PCR) Stl Vibrio cholerae PCR Stl Norovirus GI/GII PCR Random Vancomycin IgE Respiratory Panel Alexandra Adenovirus (Rapid PCR) B.pert (TEM-PCR) B.parapertussis DNA PCR C. pneumoniae DNA (PCR) C. difficile Tox B Gene Coronavirus OC43 (PCR) Coronavirus HKU1 (PCR) Coronavirus 229E (PCR) Coronavirus NL63 (PCR) CMV Specimen Source CMV Qnt PCR IU/mL CMV Qnt PCR log IU/mL Human Metapneumovir PCR Influenza A (RT-PCR) Influenza A (H1) PCR Influ A (H1/09) PCR Influenza A (H3) PCR Influenza Type A (PCR) Influenza B (RT-PCR) Influenza Type B (PCR) M. pneumoniae (PCR) Parainfluenza 1 (PCR) Parainfluenza 2 (PCR) Parainfluenza 3 (PCR) Parainfluenza 4 (PCR) Aspergillus Ag (EIA) Aspergillus Index Value RSV (PCR) RSV RNA Qual (PCR) Entero/Rhino (PCR) SARS-CoV-2 RNA (RT-PCR) Beta-(1,3)-D-Glucan B-(1,3)-D-Glucan Intrp Blood Type Antibody Screen Crossmatch 02/04/25 02/05/25 02/05/25 21:12 06:56 07:30 WBC 4.7 L RBC 2.91 L Hgb 8.8 L Hct 25.1 L MCV 86.3 MCH 30.2 MCHC 35.1 H RDW 16.4 H Plt Count 307 MPV 8.8 L Immature Gran % (Auto) Neut % (Auto) Lymph % (Auto) [place] % (Auto) Eos % (Auto) Baso % (Auto) Lymph # (Auto) [place] # (Auto) Eos # (Auto) Baso # (Auto) Abs Immat Gran (auto) Absolute Neuts (auto) Absolute Nucleated RBC 0.000 Nucleated RBC % (auto) 0.0 Neutrophils % (Manual) Band Neutrophils % Lymphocytes % (Manual) Atypical Lymphs % (Man) Monocytes % (Manual) Eosinophils % (Manual) Basophils % (Manual) Metamyelocytes % Myelocytes % Abs Neuts (Manual) Lymphocytes # (Manual) Atyp Lymphs # (Manual) Monocytes # (Manual) Eosinophils # (Manual) Basophils # (Manual) Metamyelocytes # Myelocytes # Nucleated RBCs Hypersegmented Neuts Smudge Cells Toxic Granulation Toxic Vacuolation Dohle Bodies Platelet Estimate Large Platelets Giant Platelets Plt Morphology Comment RBC Morphology Polychromasia Hypochromasia Basophilic Stippling Microcytosis Macrocytosis Target Cells Tear Drop Cells Ovalocytes Stomatocytes Tilly Cells Acanthocytes (Spur) Schistocytes Smear Path Review PT INR APTT Fibrinogen O2 Saturation ABG pH at Pt Temp ABG pCO2 at Pt Temp ABG pO2 at Pt Temp ABG HCO3 ABG Base Excess (Actual) VBG pH VBG pCO2 VBG pO2 VBG HCO3 VBG O2 Saturation VBG Base Excess Sodium 132 L Potassium 3.5 D Chloride 108 Carbon Dioxide 19 L Anion Gap 9 L BUN 8 L Creatinine 0.55 Estim Creat Clear Calc 111.2 Estimated GFR > 60 POC Glucose 146 H 58 L* Random Glucose 53 L* Lactic Acid Lactic Acid F/U @ 2Hr Calcium 7.1 L Phosphorus Magnesium 1.8 Total Bilirubin Direct Bilirubin AST ALT Alkaline Phosphatase Lactate Dehydrogenase Troponin I High Sens B-Natriuretic Peptide Total Protein Albumin Vitamin K1 Hold Yellow Top Urine Color Urine Appearance Urine pH Ur Specific [place] Urine Protein Urine Glucose (UA) Urine Ketones Urine Blood Urine Nitrite Ur Leukocyte Esterase Urine RBC Urine WBC Ur Squamous Epith Cells Urine Bacteria Hyaline Casts Bronchial Fluid WBC Bronchial Fluid RBC Bronchial Lymphocytes Bronchial Other Cells Stool Occult Blood Stl C. cayetanensis PCR Stool Rotavirus A PCR Stl Adenov F 40/41 PCR Stool Astrovirus (PCR) Stool Campylobacter PCR Stool Cryptosporidium PCR Stl Sh Tox Pr E STEC PCR Stool E coli O157 PCR Stl Enterotoxigenic E PCR Stool EPEC (PCR) Stool EAEC (PCR) Stl E. histolytica PCR Stool Giardia Lamblia PCR Stl P. shigelloides PCR Stool Salmonella PCR Stool Sapovirus (PCR) Stl Shigella/EIEC PCR St Y.enterocolitica PCR Stool Vibrio (PCR) Stl Vibrio cholerae PCR Stl Norovirus GI/GII PCR Random Vancomycin IgE Respiratory Panel Alexandra Adenovirus (Rapid PCR) B.pert (TEM-PCR) B.parapertussis DNA PCR C. pneumoniae DNA (PCR) C. difficile Tox B Gene Coronavirus OC43 (PCR) Coronavirus HKU1 (PCR) Coronavirus 229E (PCR) Coronavirus NL63 (PCR) CMV Specimen Source CMV Qnt PCR IU/mL CMV Qnt PCR log IU/mL Human Metapneumovir PCR Influenza A (RT-PCR) Influenza A (H1) PCR Influ A (H1/09) PCR Influenza A (H3) PCR Influenza Type A (PCR) Influenza B (RT-PCR) Influenza Type B (PCR) M. pneumoniae (PCR) Parainfluenza 1 (PCR) Parainfluenza 2 (PCR) Parainfluenza 3 (PCR) Parainfluenza 4 (PCR) Aspergillus Ag (EIA) Aspergillus Index Value RSV (PCR) RSV RNA Qual (PCR) Entero/Rhino (PCR) SARS-CoV-2 RNA (RT-PCR) Beta-(1,3)-D-Glucan B-(1,3)-D-Glucan Intrp Blood Type Antibody Screen Crossmatch 02/05/25 02/05/25 02/05/25 07:54 08:22 11:07 WBC RBC Hgb Hct MCV MCH MCHC RDW Plt Count MPV Immature Gran % (Auto) Neut % (Auto) Lymph % (Auto) [place] % (Auto) Eos % (Auto) Baso % (Auto) Lymph # (Auto) [place] # (Auto) Eos # (Auto) Baso # (Auto) Abs Immat Gran (auto) Absolute Neuts (auto) Absolute Nucleated RBC Nucleated RBC % (auto) Neutrophils % (Manual) Band Neutrophils % Lymphocytes % (Manual) Atypical Lymphs % (Man) Monocytes % (Manual) Eosinophils % (Manual) Basophils % (Manual) Metamyelocytes % Myelocytes % Abs Neuts (Manual) Lymphocytes # (Manual) Atyp Lymphs # (Manual) Monocytes # (Manual) Eosinophils # (Manual) Basophils # (Manual) Metamyelocytes # Myelocytes # Nucleated RBCs Hypersegmented Neuts Smudge Cells Toxic Granulation Toxic Vacuolation Dohle Bodies Platelet Estimate Large Platelets Giant Platelets Plt Morphology Comment RBC Morphology Polychromasia Hypochromasia Basophilic Stippling Microcytosis Macrocytosis Target Cells Tear Drop Cells Ovalocytes Stomatocytes Tilly Cells Acanthocytes (Spur) Schistocytes Smear Path Review PT INR APTT Fibrinogen O2 Saturation ABG pH at Pt Temp ABG pCO2 at Pt Temp ABG pO2 at Pt Temp ABG HCO3 ABG Base Excess (Actual) VBG pH VBG pCO2 VBG pO2 VBG HCO3 VBG O2 Saturation VBG Base Excess Sodium Potassium Chloride Carbon Dioxide Anion Gap BUN Creatinine Estim Creat Clear Calc Estimated GFR POC Glucose 57 L* 85 83 Random Glucose Lactic Acid Lactic Acid F/U @ 2Hr Calcium Phosphorus Magnesium Total Bilirubin Direct Bilirubin AST ALT Alkaline Phosphatase Lactate Dehydrogenase Troponin I High Sens B-Natriuretic Peptide Total Protein Albumin Vitamin K1 Hold Yellow Top Urine Color Urine Appearance Urine pH Ur Specific [place] Urine Protein Urine Glucose (UA) Urine Ketones Urine Blood Urine Nitrite Ur Leukocyte Esterase Urine RBC Urine WBC Ur Squamous Epith Cells Urine Bacteria Hyaline Casts Bronchial Fluid WBC Bronchial Fluid RBC Bronchial Lymphocytes Bronchial Other Cells Stool Occult Blood Stl C. cayetanensis PCR Stool Rotavirus A PCR Stl Adenov F 40/41 PCR Stool Astrovirus (PCR) Stool Campylobacter PCR Stool Cryptosporidium PCR Stl Sh Tox Pr E STEC PCR Stool E coli O157 PCR Stl Enterotoxigenic E PCR Stool EPEC (PCR) Stool EAEC (PCR) Stl E. histolytica PCR Stool Giardia Lamblia PCR Stl P. shigelloides PCR Stool Salmonella PCR Stool Sapovirus (PCR) Stl Shigella/EIEC PCR St Y.enterocolitica PCR Stool Vibrio (PCR) Stl Vibrio cholerae PCR Stl Norovirus GI/GII PCR Random Vancomycin IgE Respiratory Panel Alexandra Adenovirus (Rapid PCR) B.pert (TEM-PCR) B.parapertussis DNA PCR C. pneumoniae DNA (PCR) C. difficile Tox B Gene Coronavirus OC43 (PCR) Coronavirus HKU1 (PCR) Coronavirus 229E (PCR) Coronavirus NL63 (PCR) CMV Specimen Source CMV Qnt PCR IU/mL CMV Qnt PCR log IU/mL Human Metapneumovir PCR Influenza A (RT-PCR) Influenza A (H1) PCR Influ A (H1/09) PCR Influenza A (H3) PCR Influenza Type A (PCR) Influenza B (RT-PCR) Influenza Type B (PCR) M. pneumoniae (PCR) Parainfluenza 1 (PCR) Parainfluenza 2 (PCR) Parainfluenza 3 (PCR) Parainfluenza 4 (PCR) Aspergillus Ag (EIA) Aspergillus Index Value RSV (PCR) RSV RNA Qual (PCR) Entero/Rhino (PCR) SARS-CoV-2 RNA (RT-PCR) Beta-(1,3)-D-Glucan B-(1,3)-D-Glucan Intrp Blood Type Antibody Screen Crossmatch 02/05/25 02/05/25 02/06/25 16:07 20:53 07:26 WBC RBC Hgb Hct MCV MCH MCHC RDW Plt Count MPV Immature Gran % (Auto) Neut % (Auto) Lymph % (Auto) [place] % (Auto) Eos % (Auto) Baso % (Auto) Lymph # (Auto) [place] # (Auto) Eos # (Auto) Baso # (Auto) Abs Immat Gran (auto) Absolute Neuts (auto) Absolute Nucleated RBC Nucleated RBC % (auto) Neutrophils % (Manual) Band Neutrophils % Lymphocytes % (Manual) Atypical Lymphs % (Man) Monocytes % (Manual) Eosinophils % (Manual) Basophils % (Manual) Metamyelocytes % Myelocytes % Abs Neuts (Manual) Lymphocytes # (Manual) Atyp Lymphs # (Manual) Monocytes # (Manual) Eosinophils # (Manual) Basophils # (Manual) Metamyelocytes # Myelocytes # Nucleated RBCs Hypersegmented Neuts Smudge Cells Toxic Granulation Toxic Vacuolation Dohle Bodies Platelet Estimate Large Platelets Giant Platelets Plt Morphology Comment RBC Morphology Polychromasia Hypochromasia Basophilic Stippling Microcytosis Macrocytosis Target Cells Tear Drop Cells Ovalocytes Stomatocytes Regulo Cells Acanthocytes (Spur) Schistocytes Smear Path Review PT INR APTT Fibrinogen O2 Saturation ABG pH at Pt Temp ABG pCO2 at Pt Temp ABG pO2 at Pt Temp ABG HCO3 ABG Base Excess (Actual) VBG pH VBG pCO2 VBG pO2 VBG HCO3 VBG O2 Saturation VBG Base Excess Sodium Potassium Chloride Carbon Dioxide Anion Gap BUN Creatinine Estim Creat Clear Calc Estimated GFR POC Glucose 104 109 94 Random Glucose Lactic Acid Lactic Acid F/U @ 2Hr Calcium Phosphorus Magnesium Total Bilirubin Direct Bilirubin AST ALT Alkaline Phosphatase Lactate Dehydrogenase Troponin I High Sens B-Natriuretic Peptide Total Protein Albumin Vitamin K1 Hold Yellow Top Urine Color Urine Appearance Urine pH Ur Specific [place] Urine Protein Urine Glucose (UA) Urine Ketones Urine Blood Urine Nitrite Ur Leukocyte Esterase Urine RBC Urine WBC Ur Squamous Epith Cells Urine Bacteria Hyaline Casts Bronchial Fluid WBC Bronchial Fluid RBC Bronchial Lymphocytes Bronchial Other Cells Stool Occult Blood Stl C. cayetanensis PCR Stool Rotavirus A PCR Stl Adenov F 40/ PCR Stool Astrovirus (PCR) Stool Campylobacter PCR Stool Cryptosporidium PCR Stl Sh Tox Pr E STEC PCR Stool E coli O157 PCR Stl Enterotoxigenic E PCR Stool EPEC (PCR) Stool EAEC (PCR) Stl E. histolytica PCR Stool Giardia Lamblia PCR Stl P. shigelloides PCR Stool Salmonella PCR Stool Sapovirus (PCR) Stl Shigella/EIEC PCR St Y.enterocolitica PCR Stool Vibrio (PCR) Stl Vibrio cholerae PCR Stl Norovirus GI/GII PCR Random Vancomycin IgE Respiratory Panel Alexandra Adenovirus (Rapid PCR) B.pert (TEM-PCR) B.parapertussis DNA PCR C. pneumoniae DNA (PCR) C. difficile Tox B Gene Coronavirus OC43 (PCR) Coronavirus HKU1 (PCR) Coronavirus 229E (PCR) Coronavirus NL63 (PCR) CMV Specimen Source CMV Qnt PCR IU/mL CMV Qnt PCR log IU/mL Human Metapneumovir PCR Influenza A (RT-PCR) Influenza A (H1) PCR Influ A (H1/09) PCR Influenza A (H3) PCR Influenza Type A (PCR) Influenza B (RT-PCR) Influenza Type B (PCR) M. pneumoniae (PCR) Parainfluenza 1 (PCR) Parainfluenza 2 (PCR) Parainfluenza 3 (PCR) Parainfluenza 4 (PCR) Aspergillus Ag (EIA) Aspergillus Index Value RSV (PCR) RSV RNA Qual (PCR) Entero/Rhino (PCR) SARS-CoV-2 RNA (RT-PCR) Beta-(1,3)-D-Glucan B-(1,3)-D-Glucan Intrp Blood Type Antibody Screen Crossmatch 02/06/25 02/06/25 02/06/25 10:09 10:10 11:18 WBC 3.8 L RBC 3.35 L Hgb 9.9 L Hct 28.4 L MCV 84.8 MCH 29.6 MCHC 34.9 RDW 15.8 Plt Count 252 MPV 8.3 L Immature Gran % (Auto) Neut % (Auto) Lymph % (Auto) [place] % (Auto) Eos % (Auto) Baso % (Auto) Lymph # (Auto) [place] # (Auto) Eos # (Auto) Baso # (Auto) Abs Immat Gran (auto) Absolute Neuts (auto) Absolute Nucleated RBC 0.000 Nucleated RBC % (auto) 0.0 Neutrophils % (Manual) Band Neutrophils % Lymphocytes % (Manual) Atypical Lymphs % (Man) Monocytes % (Manual) Eosinophils % (Manual) Basophils % (Manual) Metamyelocytes % Myelocytes % Abs Neuts (Manual) Lymphocytes # (Manual) Atyp Lymphs # (Manual) Monocytes # (Manual) Eosinophils # (Manual) Basophils # (Manual) Metamyelocytes # Myelocytes # Nucleated RBCs Hypersegmented Neuts Smudge Cells Toxic Granulation Toxic Vacuolation Dohle Bodies Platelet Estimate Large Platelets Giant Platelets Plt Morphology Comment RBC Morphology Polychromasia Hypochromasia Basophilic Stippling Microcytosis Macrocytosis Target Cells Tear Drop Cells Ovalocytes Stomatocytes Tilly Cells Acanthocytes (Spur) Schistocytes Smear Path Review PT INR APTT Fibrinogen O2 Saturation ABG pH at Pt Temp ABG pCO2 at Pt Temp ABG pO2 at Pt Temp ABG HCO3 ABG Base Excess (Actual) VBG pH VBG pCO2 VBG pO2 VBG HCO3 VBG O2 Saturation VBG Base Excess Sodium 134 L Potassium 3.5 Chloride 105 Carbon Dioxide 23 Anion Gap 10 L BUN 8 L Creatinine 0.57 Estim Creat Clear Calc 107.3 Estimated GFR > 60 POC Glucose 139 H Random Glucose 131 H Lactic Acid Lactic Acid F/U @ 2Hr Calcium 7.3 L Phosphorus Magnesium Total Bilirubin Direct Bilirubin AST ALT Alkaline Phosphatase Lactate Dehydrogenase Troponin I High Sens B-Natriuretic Peptide Total Protein Albumin Vitamin K1 Hold Yellow Top Urine Color Urine Appearance Urine pH Ur Specific [place] Urine Protein Urine Glucose (UA) Urine Ketones Urine Blood Urine Nitrite Ur Leukocyte Esterase Urine RBC Urine WBC Ur Squamous Epith Cells Urine Bacteria Hyaline Casts Bronchial Fluid WBC Bronchial Fluid RBC Bronchial Lymphocytes Bronchial Other Cells Stool Occult Blood Stl C. cayetanensis PCR Stool Rotavirus A PCR Stl Adenov F 40/41 PCR Stool Astrovirus (PCR) Stool Campylobacter PCR Stool Cryptosporidium PCR Stl Sh Tox Pr E STEC PCR Stool E coli O157 PCR Stl Enterotoxigenic E PCR Stool EPEC (PCR) Stool EAEC (PCR) Stl E. histolytica PCR Stool Giardia Lamblia PCR Stl P. shigelloides PCR Stool Salmonella PCR Stool Sapovirus (PCR) Stl Shigella/EIEC PCR St Y.enterocolitica PCR Stool Vibrio (PCR) Stl Vibrio cholerae PCR Stl Norovirus GI/GII PCR Random Vancomycin IgE Respiratory Panel Alexandra Adenovirus (Rapid PCR) B.pert (TEM-PCR) B.parapertussis DNA PCR C. pneumoniae DNA (PCR) C. difficile Tox B Gene Coronavirus OC43 (PCR) Coronavirus HKU1 (PCR) Coronavirus 229E (PCR) Coronavirus NL63 (PCR) CMV Specimen Source CMV Qnt PCR IU/mL CMV Qnt PCR log IU/mL Human Metapneumovir PCR Influenza A (RT-PCR) Influenza A (H1) PCR Influ A (H1/09) PCR Influenza A (H3) PCR Influenza Type A (PCR) Influenza B (RT-PCR) Influenza Type B (PCR) M. pneumoniae (PCR) Parainfluenza 1 (PCR) Parainfluenza 2 (PCR) Parainfluenza 3 (PCR) Parainfluenza 4 (PCR) Aspergillus Ag (EIA) Aspergillus Index Value RSV (PCR) RSV RNA Qual (PCR) Entero/Rhino (PCR) SARS-CoV-2 RNA (RT-PCR) Beta-(1,3)-D-Glucan B-(1,3)-D-Glucan Intrp Blood Type Antibody Screen Crossmatch 02/06/25 02/06/25 02/06/25 16:12 20:51 22:31 WBC 3.4 L RBC 2.94 L Hgb 8.9 L Hct 24.8 L MCV 84.4 MCH 30.3 MCHC 35.9 H RDW 15.9 Plt Count 235 MPV 8.6 L Immature Gran % (Auto) Neut % (Auto) Lymph % (Auto) [place] % (Auto) Eos % (Auto) Baso % (Auto) Lymph # (Auto) [place] # (Auto) Eos # (Auto) Baso # (Auto) Abs Immat Gran (auto) Absolute Neuts (auto) Absolute Nucleated RBC 0.000 Nucleated RBC % (auto) 0.0 Neutrophils % (Manual) Band Neutrophils % Lymphocytes % (Manual) Atypical Lymphs % (Man) Monocytes % (Manual) Eosinophils % (Manual) Basophils % (Manual) Metamyelocytes % Myelocytes % Abs Neuts (Manual) Lymphocytes # (Manual) Atyp Lymphs # (Manual) Monocytes # (Manual) Eosinophils # (Manual) Basophils # (Manual) Metamyelocytes # Myelocytes # Nucleated RBCs Hypersegmented Neuts Smudge Cells Toxic Granulation Toxic Vacuolation Dohle Bodies Platelet Estimate Large Platelets Giant Platelets Plt Morphology Comment RBC Morphology Polychromasia Hypochromasia Basophilic Stippling Microcytosis Macrocytosis Target Cells Tear Drop Cells Ovalocytes Stomatocytes Tilly Cells Acanthocytes (Spur) Schistocytes Smear Path Review PT INR APTT Fibrinogen O2 Saturation ABG pH at Pt Temp ABG pCO2 at Pt Temp ABG pO2 at Pt Temp ABG HCO3 ABG Base Excess (Actual) VBG pH VBG pCO2 VBG pO2 VBG HCO3 VBG O2 Saturation VBG Base Excess Sodium Potassium Chloride Carbon Dioxide Anion Gap BUN Creatinine Estim Creat Clear Calc Estimated GFR POC Glucose 157 H 126 H Random Glucose Lactic Acid Lactic Acid F/U @ 2Hr Calcium Phosphorus Magnesium Total Bilirubin Direct Bilirubin AST ALT Alkaline Phosphatase Lactate Dehydrogenase Troponin I High Sens B-Natriuretic Peptide Total Protein Albumin Vitamin K1 Hold Yellow Top Urine Color Urine Appearance Urine pH Ur Specific [place] Urine Protein Urine Glucose (UA) Urine Ketones Urine Blood Urine Nitrite Ur Leukocyte Esterase Urine RBC Urine WBC Ur Squamous Epith Cells Urine Bacteria Hyaline Casts Bronchial Fluid WBC Bronchial Fluid RBC Bronchial Lymphocytes Bronchial Other Cells Stool Occult Blood Stl C. cayetanensis PCR Stool Rotavirus A PCR Stl Adenov F 40/41 PCR Stool Astrovirus (PCR) Stool Campylobacter PCR Stool Cryptosporidium PCR Stl Sh Tox Pr E STEC PCR Stool E coli O157 PCR Stl Enterotoxigenic E PCR Stool EPEC (PCR) Stool EAEC (PCR) Stl E. histolytica PCR Stool Giardia Lamblia PCR Stl P. shigelloides PCR Stool Salmonella PCR Stool Sapovirus (PCR) Stl Shigella/EIEC PCR St Y.enterocolitica PCR Stool Vibrio (PCR) Stl Vibrio cholerae PCR Stl Norovirus GI/GII PCR Random Vancomycin IgE Respiratory Panel Alexandra Adenovirus (Rapid PCR) B.pert (TEM-PCR) B.parapertussis DNA PCR C. pneumoniae DNA (PCR) C. difficile Tox B Gene Coronavirus OC43 (PCR) Coronavirus HKU1 (PCR) Coronavirus 229E (PCR) Coronavirus NL63 (PCR) CMV Specimen Source CMV Qnt PCR IU/mL CMV Qnt PCR log IU/mL Human Metapneumovir PCR Influenza A (RT-PCR) Influenza A (H1) PCR Influ A (H1/09) PCR Influenza A (H3) PCR Influenza Type A (PCR) Influenza B (RT-PCR) Influenza Type B (PCR) M. pneumoniae (PCR) Parainfluenza 1 (PCR) Parainfluenza 2 (PCR) Parainfluenza 3 (PCR) Parainfluenza 4 (PCR) Aspergillus Ag (EIA) Aspergillus Index Value RSV (PCR) RSV RNA Qual (PCR) Entero/Rhino (PCR) SARS-CoV-2 RNA (RT-PCR) Beta-(1,3)-D-Glucan B-(1,3)-D-Glucan Intrp Blood Type Antibody Screen Crossmatch 02/07/25 02/07/25 02/07/25 07:02 08:39 11:15 WBC RBC Hgb 9.1 L Hct 25.7 L MCV MCH MCHC RDW Plt Count MPV Immature Gran % (Auto) Neut % (Auto) Lymph % (Auto) [place] % (Auto) Eos % (Auto) Baso % (Auto) Lymph # (Auto) [place] # (Auto) Eos # (Auto) Baso # (Auto) Abs Immat Gran (auto) Absolute Neuts (auto) Absolute Nucleated RBC Nucleated RBC % (auto) Neutrophils % (Manual) Band Neutrophils % Lymphocytes % (Manual) Atypical Lymphs % (Man) Monocytes % (Manual) Eosinophils % (Manual) Basophils % (Manual) Metamyelocytes % Myelocytes % Abs Neuts (Manual) Lymphocytes # (Manual) Atyp Lymphs # (Manual) Monocytes # (Manual) Eosinophils # (Manual) Basophils # (Manual) Metamyelocytes # Myelocytes # Nucleated RBCs Hypersegmented Neuts Smudge Cells Toxic Granulation Toxic Vacuolation Dohle Bodies Platelet Estimate Large Platelets Giant Platelets Plt Morphology Comment RBC Morphology Polychromasia Hypochromasia Basophilic Stippling Microcytosis Macrocytosis Target Cells Tear Drop Cells Ovalocytes Stomatocytes Regulo Cells Acanthocytes (Spur) Schistocytes Smear Path Review PT 13.9 H INR 1.2 H APTT Fibrinogen O2 Saturation ABG pH at Pt Temp ABG pCO2 at Pt Temp ABG pO2 at Pt Temp ABG HCO3 ABG Base Excess (Actual) VBG pH VBG pCO2 VBG pO2 VBG HCO3 VBG O2 Saturation VBG Base Excess Sodium 134 L Potassium 3.3 Chloride 107 Carbon Dioxide 19 L Anion Gap 11 L BUN 10 Creatinine 0.58 Estim Creat Clear Calc 105.5 Estimated GFR > 60 POC Glucose 137 H 126 H Random Glucose 119 H Lactic Acid Lactic Acid F/U @ 2Hr Calcium 7.6 L Phosphorus Magnesium Total Bilirubin Direct Bilirubin AST ALT Alkaline Phosphatase Lactate Dehydrogenase 211 Troponin I High Sens B-Natriuretic Peptide Total Protein Albumin Vitamin K1 Hold Yellow Top Urine Color Urine Appearance Urine pH Ur Specific [place] Urine Protein Urine Glucose (UA) Urine Ketones Urine Blood Urine Nitrite Ur Leukocyte Esterase Urine RBC Urine WBC Ur Squamous Epith Cells Urine Bacteria Hyaline Casts Bronchial Fluid WBC Bronchial Fluid RBC Bronchial Lymphocytes Bronchial Other Cells Stool Occult Blood Stl C. cayetanensis PCR Stool Rotavirus A PCR Stl Adenov F 40/41 PCR Stool Astrovirus (PCR) Stool Campylobacter PCR Stool Cryptosporidium PCR Stl Sh Tox Pr E STEC PCR Stool E coli O157 PCR Stl Enterotoxigenic E PCR Stool EPEC (PCR) Stool EAEC (PCR) Stl E. histolytica PCR Stool Giardia Lamblia PCR Stl P. shigelloides PCR Stool Salmonella PCR Stool Sapovirus (PCR) Stl Shigella/EIEC PCR St Y.enterocolitica PCR Stool Vibrio (PCR) Stl Vibrio cholerae PCR Stl Norovirus GI/GII PCR Random Vancomycin IgE Respiratory Panel Alexandra Adenovirus (Rapid PCR) B.pert (TEM-PCR) B.parapertussis DNA PCR C. pneumoniae DNA (PCR) C. difficile Tox B Gene Coronavirus OC43 (PCR) Coronavirus HKU1 (PCR) Coronavirus 229E (PCR) Coronavirus NL63 (PCR) CMV Specimen Source CMV Qnt PCR IU/mL CMV Qnt PCR log IU/mL Human Metapneumovir PCR Influenza A (RT-PCR) Influenza A (H1) PCR Influ A (H1/09) PCR Influenza A (H3) PCR Influenza Type A (PCR) Influenza B (RT-PCR) Influenza Type B (PCR) M. pneumoniae (PCR) Parainfluenza 1 (PCR) Parainfluenza 2 (PCR) Parainfluenza 3 (PCR) Parainfluenza 4 (PCR) Aspergillus Ag (EIA) Aspergillus Index Value RSV (PCR) RSV RNA Qual (PCR) Entero/Rhino (PCR) SARS-CoV-2 RNA (RT-PCR) Beta-(1,3)-D-Glucan B-(1,3)-D-Glucan Intrp Blood Type B Positive Antibody Screen NEGATIVE Crossmatch See Detail 02/07/25 02/07/25 02/07/25 15:20 16:16 16:40 WBC RBC Hgb 8.6 L Hct 24.5 L MCV MCH MCHC RDW Plt Count MPV Immature Gran % (Auto) Neut % (Auto) Lymph % (Auto) [place] % (Auto) Eos % (Auto) Baso % (Auto) Lymph # (Auto) [place] # (Auto) Eos # (Auto) Baso # (Auto) Abs Immat Gran (auto) Absolute Neuts (auto) Absolute Nucleated RBC Nucleated RBC % (auto) Neutrophils % (Manual) Band Neutrophils % Lymphocytes % (Manual) Atypical Lymphs % (Man) Monocytes % (Manual) Eosinophils % (Manual) Basophils % (Manual) Metamyelocytes % Myelocytes % Abs Neuts (Manual) Lymphocytes # (Manual) Atyp Lymphs # (Manual) Monocytes # (Manual) Eosinophils # (Manual) Basophils # (Manual) Metamyelocytes # Myelocytes # Nucleated RBCs Hypersegmented Neuts Smudge Cells Toxic Granulation Toxic Vacuolation Dohle Bodies Platelet Estimate Large Platelets Giant Platelets Plt Morphology Comment RBC Morphology Polychromasia Hypochromasia Basophilic Stippling Microcytosis Macrocytosis Target Cells Tear Drop Cells Ovalocytes Stomatocytes Regulo Cells Acanthocytes (Spur) Schistocytes Smear Path Review PT INR APTT Fibrinogen O2 Saturation ABG pH at Pt Temp ABG pCO2 at Pt Temp ABG pO2 at Pt Temp ABG HCO3 ABG Base Excess (Actual) VBG pH VBG pCO2 VBG pO2 VBG HCO3 VBG O2 Saturation VBG Base Excess Sodium Potassium Chloride Carbon Dioxide Anion Gap BUN Creatinine Estim Creat Clear Calc Estimated GFR POC Glucose Random Glucose Lactic Acid 0.4 L Lactic Acid F/U @ 2Hr Calcium Phosphorus Magnesium Total Bilirubin Direct Bilirubin AST ALT Alkaline Phosphatase Lactate Dehydrogenase Troponin I High Sens B-Natriuretic Peptide Total Protein Albumin Vitamin K1 Hold Yellow Top See Note Urine Color Urine Appearance Urine pH Ur Specific [place] Urine Protein Urine Glucose (UA) Urine Ketones Urine Blood Urine Nitrite Ur Leukocyte Esterase Urine RBC Urine WBC Ur Squamous Epith Cells Urine Bacteria Hyaline Casts Bronchial Fluid WBC Bronchial Fluid RBC Bronchial Lymphocytes Bronchial Other Cells Stool Occult Blood Stl C. cayetanensis PCR Stool Rotavirus A PCR Stl Adenov F 40/41 PCR Stool Astrovirus (PCR) Stool Campylobacter PCR Stool Cryptosporidium PCR Stl Sh Tox Pr E STEC PCR Stool E coli O157 PCR Stl Enterotoxigenic E PCR Stool EPEC (PCR) Stool EAEC (PCR) Stl E. histolytica PCR Stool Giardia Lamblia PCR Stl P. shigelloides PCR Stool Salmonella PCR Stool Sapovirus (PCR) Stl Shigella/EIEC PCR St Y.enterocolitica PCR Stool Vibrio (PCR) Stl Vibrio cholerae PCR Stl Norovirus GI/GII PCR Random Vancomycin IgE Respiratory Panel Alexandra Adenovirus (Rapid PCR) B.pert (TEM-PCR) B.parapertussis DNA PCR C. pneumoniae DNA (PCR) C. difficile Tox B Gene Coronavirus OC43 (PCR) Coronavirus HKU1 (PCR) Coronavirus 229E (PCR) Coronavirus NL63 (PCR) CMV Specimen Source CMV Qnt PCR IU/mL CMV Qnt PCR log IU/mL Human Metapneumovir PCR Influenza A (RT-PCR) Influenza A (H1) PCR Influ A (H1/09) PCR Influenza A (H3) PCR Influenza Type A (PCR) Influenza B (RT-PCR) Influenza Type B (PCR) M. pneumoniae (PCR) Parainfluenza 1 (PCR) Parainfluenza 2 (PCR) Parainfluenza 3 (PCR) Parainfluenza 4 (PCR) Aspergillus Ag (EIA) Aspergillus Index Value RSV (PCR) RSV RNA Qual (PCR) Entero/Rhino (PCR) SARS-CoV-2 RNA (RT-PCR) Beta-(1,3)-D-Glucan B-(1,3)-D-Glucan Intrp Blood Type Antibody Screen Crossmatch 02/07/25 02/07/25 02/07/25 16:52 20:30 20:38 WBC RBC Hgb 8.3 L Hct 23.7 L MCV MCH MCHC RDW Plt Count MPV Immature Gran % (Auto) Neut % (Auto) Lymph % (Auto) [place] % (Auto) Eos % (Auto) Baso % (Auto) Lymph # (Auto) [place] # (Auto) Eos # (Auto) Baso # (Auto) Abs Immat Gran (auto) Absolute Neuts (auto) Absolute Nucleated RBC Nucleated RBC % (auto) Neutrophils % (Manual) Band Neutrophils % Lymphocytes % (Manual) Atypical Lymphs % (Man) Monocytes % (Manual) Eosinophils % (Manual) Basophils % (Manual) Metamyelocytes % Myelocytes % Abs Neuts (Manual) Lymphocytes # (Manual) Atyp Lymphs # (Manual) Monocytes # (Manual) Eosinophils # (Manual) Basophils # (Manual) Metamyelocytes # Myelocytes # Nucleated RBCs Hypersegmented Neuts Smudge Cells Toxic Granulation Toxic Vacuolation Dohle Bodies Platelet Estimate Large Platelets Giant Platelets Plt Morphology Comment RBC Morphology Polychromasia Hypochromasia Basophilic Stippling Microcytosis Macrocytosis Target Cells Tear Drop Cells Ovalocytes Stomatocytes Tilly Cells Acanthocytes (Spur) Schistocytes Smear Path Review PT INR APTT Fibrinogen O2 Saturation ABG pH at Pt Temp ABG pCO2 at Pt Temp ABG pO2 at Pt Temp ABG HCO3 ABG Base Excess (Actual) VBG pH VBG pCO2 VBG pO2 VBG HCO3 VBG O2 Saturation VBG Base Excess Sodium Potassium Chloride Carbon Dioxide Anion Gap BUN Creatinine Estim Creat Clear Calc Estimated GFR POC Glucose 129 H 176 H Random Glucose Lactic Acid Lactic Acid F/U @ 2Hr Calcium Phosphorus Magnesium Total Bilirubin Direct Bilirubin AST ALT Alkaline Phosphatase Lactate Dehydrogenase Troponin I High Sens B-Natriuretic Peptide Total Protein Albumin Vitamin K1 Hold Yellow Top Urine Color Urine Appearance Urine pH Ur Specific [place] Urine Protein Urine Glucose (UA) Urine Ketones Urine Blood Urine Nitrite Ur Leukocyte Esterase Urine RBC Urine WBC Ur Squamous Epith Cells Urine Bacteria Hyaline Casts Bronchial Fluid WBC Bronchial Fluid RBC Bronchial Lymphocytes Bronchial Other Cells Stool Occult Blood Stl C. cayetanensis PCR Stool Rotavirus A PCR Stl Adenov F 40/41 PCR Stool Astrovirus (PCR) Stool Campylobacter PCR Stool Cryptosporidium PCR Stl Sh Tox Pr E STEC PCR Stool E coli O157 PCR Stl Enterotoxigenic E PCR Stool EPEC (PCR) Stool EAEC (PCR) Stl E. histolytica PCR Stool Giardia Lamblia PCR Stl P. shigelloides PCR Stool Salmonella PCR Stool Sapovirus (PCR) Stl Shigella/EIEC PCR St Y.enterocolitica PCR Stool Vibrio (PCR) Stl Vibrio cholerae PCR Stl Norovirus GI/GII PCR Random Vancomycin IgE Respiratory Panel Alexandra Adenovirus (Rapid PCR) B.pert (TEM-PCR) B.parapertussis DNA PCR C. pneumoniae DNA (PCR) C. difficile Tox B Gene Coronavirus OC43 (PCR) Coronavirus HKU1 (PCR) Coronavirus 229E (PCR) Coronavirus NL63 (PCR) CMV Specimen Source CMV Qnt PCR IU/mL CMV Qnt PCR log IU/mL Human Metapneumovir PCR Influenza A (RT-PCR) Influenza A (H1) PCR Influ A (H1/09) PCR Influenza A (H3) PCR Influenza Type A (PCR) Influenza B (RT-PCR) Influenza Type B (PCR) M. pneumoniae (PCR) Parainfluenza 1 (PCR) Parainfluenza 2 (PCR) Parainfluenza 3 (PCR) Parainfluenza 4 (PCR) Aspergillus Ag (EIA) Aspergillus Index Value RSV (PCR) RSV RNA Qual (PCR) Entero/Rhino (PCR) SARS-CoV-2 RNA (RT-PCR) Beta-(1,3)-D-Glucan B-(1,3)-D-Glucan Intrp Blood Type Antibody Screen Crossmatch 02/08/25 02/08/25 02/08/25 03:21 06:48 07:28 WBC 4.3 L RBC 2.86 L Hgb 8.6 L 8.6 L Hct 23.6 L 24.4 L MCV 85.3 MCH 30.1 MCHC 35.2 H RDW 15.8 Plt Count 249 MPV 9.1 L Immature Gran % (Auto) Neut % (Auto) Lymph % (Auto) [place] % (Auto) Eos % (Auto) Baso % (Auto) Lymph # (Auto) [place] # (Auto) Eos # (Auto) Baso # (Auto) Abs Immat Gran (auto) Absolute Neuts (auto) Absolute Nucleated RBC 0.000 Nucleated RBC % (auto) 0.0 Neutrophils % (Manual) Band Neutrophils % Lymphocytes % (Manual) Atypical Lymphs % (Man) Monocytes % (Manual) Eosinophils % (Manual) Basophils % (Manual) Metamyelocytes % Myelocytes % Abs Neuts (Manual) Lymphocytes # (Manual) Atyp Lymphs # (Manual) Monocytes # (Manual) Eosinophils # (Manual) Basophils # (Manual) Metamyelocytes # Myelocytes # Nucleated RBCs Hypersegmented Neuts Smudge Cells Toxic Granulation Toxic Vacuolation Dohle Bodies Platelet Estimate Large Platelets Giant Platelets Plt Morphology Comment RBC Morphology Polychromasia Hypochromasia Basophilic Stippling Microcytosis Macrocytosis Target Cells Tear Drop Cells Ovalocytes Stomatocytes [place]illy Cells Acanthocytes (Spur) Schistocytes Smear Path Review PT INR APTT Fibrinogen O2 Saturation ABG pH at Pt Temp ABG pCO2 at Pt Temp ABG pO2 at Pt Temp ABG HCO3 ABG Base Excess (Actual) VBG pH VBG pCO2 VBG pO2 VBG HCO3 VBG O2 Saturation VBG Base Excess Sodium 133 L Potassium 2.6 L* D Chloride 106 Carbon Dioxide 22 Anion Gap 8 L BUN 11 Creatinine 0.58 Estim Creat Clear Calc 105.5 Estimated GFR > 60 POC Glucose 102 Random Glucose 96 Lactic Acid Lactic Acid F/U @ 2Hr Calcium 7.7 L Phosphorus Magnesium Total Bilirubin Direct Bilirubin AST ALT Alkaline Phosphatase Lactate Dehydrogenase Troponin I High Sens B-Natriuretic Peptide Total Protein Albumin Vitamin K1 Hold Yellow Top Urine Color Urine Appearance Urine pH Ur Specific [place] Urine Protein Urine Glucose (UA) Urine Ketones Urine Blood Urine Nitrite Ur Leukocyte Esterase Urine RBC Urine WBC Ur Squamous Epith Cells Urine Bacteria Hyaline Casts Bronchial Fluid WBC Bronchial Fluid RBC Bronchial Lymphocytes Bronchial Other Cells Stool Occult Blood Stl C. cayetanensis PCR Stool Rotavirus A PCR Stl Adenov F 40/41 PCR Stool Astrovirus (PCR) Stool Campylobacter PCR Stool Cryptosporidium PCR Stl Sh Tox Pr E STEC PCR Stool E coli O157 PCR Stl Enterotoxigenic E PCR Stool EPEC (PCR) Stool EAEC (PCR) Stl E. histolytica PCR Stool Giardia Lamblia PCR Stl P. shigelloides PCR Stool Salmonella PCR Stool Sapovirus (PCR) Stl Shigella/EIEC PCR St Y.enterocolitica PCR Stool Vibrio (PCR) Stl Vibrio cholerae PCR Stl Norovirus GI/GII PCR Random Vancomycin IgE Respiratory Panel Alexandra Adenovirus (Rapid PCR) B.pert (TEM-PCR) B.parapertussis DNA PCR C. pneumoniae DNA (PCR) C. difficile Tox B Gene Coronavirus OC43 (PCR) Coronavirus HKU1 (PCR) Coronavirus 229E (PCR) Coronavirus NL63 (PCR) CMV Specimen Source CMV Qnt PCR IU/mL CMV Qnt PCR log IU/mL Human Metapneumovir PCR Influenza A (RT-PCR) Influenza A (H1) PCR Influ A (H1/09) PCR Influenza A (H3) PCR Influenza Type A (PCR) Influenza B (RT-PCR) Influenza Type B (PCR) M. pneumoniae (PCR) Parainfluenza 1 (PCR) Parainfluenza 2 (PCR) Parainfluenza 3 (PCR) Parainfluenza 4 (PCR) Aspergillus Ag (EIA) Aspergillus Index Value RSV (PCR) RSV RNA Qual (PCR) Entero/Rhino (PCR) SARS-CoV-2 RNA (RT-PCR) Beta-(1,3)-D-Glucan B-(1,3)-D-Glucan Intrp Blood Type Antibody Screen Crossmatch 02/08/25 02/08/25 02/08/25 11:11 15:02 15:42 WBC RBC Hgb 8.3 L Hct 23.7 L MCV MCH MCHC RDW Plt Count MPV Immature Gran % (Auto) Neut % (Auto) Lymph % (Auto) [place] % (Auto) Eos % (Auto) Baso % (Auto) Lymph # (Auto) [place] # (Auto) Eos # (Auto) Baso # (Auto) Abs Immat Gran (auto) Absolute Neuts (auto) Absolute Nucleated RBC Nucleated RBC % (auto) Neutrophils % (Manual) Band Neutrophils % Lymphocytes % (Manual) Atypical Lymphs % (Man) Monocytes % (Manual) Eosinophils % (Manual) Basophils % (Manual) Metamyelocytes % Myelocytes % Abs Neuts (Manual) Lymphocytes # (Manual) Atyp Lymphs # (Manual) Monocytes # (Manual) Eosinophils # (Manual) Basophils # (Manual) Metamyelocytes # Myelocytes # Nucleated RBCs Hypersegmented Neuts Smudge Cells Toxic Granulation Toxic Vacuolation Dohle Bodies Platelet Estimate Large Platelets Giant Platelets Plt Morphology Comment RBC Morphology Polychromasia Hypochromasia Basophilic Stippling Microcytosis Macrocytosis Target Cells Tear Drop Cells Ovalocytes Stomatocytes Regulo Cells Acanthocytes (Spur) Schistocytes Smear Path Review PT INR APTT Fibrinogen O2 Saturation ABG pH at Pt Temp ABG pCO2 at Pt Temp ABG pO2 at Pt Temp ABG HCO3 ABG Base Excess (Actual) VBG pH VBG pCO2 VBG pO2 VBG HCO3 VBG O2 Saturation VBG Base Excess Sodium Potassium Chloride Carbon Dioxide Anion Gap BUN Creatinine Estim Creat Clear Calc Estimated GFR POC Glucose 126 H 161 H Random Glucose Lactic Acid Lactic Acid F/U @ 2Hr Calcium Phosphorus Magnesium Total Bilirubin Direct Bilirubin AST ALT Alkaline Phosphatase Lactate Dehydrogenase Troponin I High Sens B-Natriuretic Peptide Total Protein Albumin Vitamin K1 Hold Yellow Top Urine Color Urine Appearance Urine pH Ur Specific [place] Urine Protein Urine Glucose (UA) Urine Ketones Urine Blood Urine Nitrite Ur Leukocyte Esterase Urine RBC Urine WBC Ur Squamous Epith Cells Urine Bacteria Hyaline Casts Bronchial Fluid WBC Bronchial Fluid RBC Bronchial Lymphocytes Bronchial Other Cells Stool Occult Blood Stl C. cayetanensis PCR Stool Rotavirus A PCR Stl Adenov F 40/41 PCR Stool Astrovirus (PCR) Stool Campylobacter PCR Stool Cryptosporidium PCR Stl Sh Tox Pr E STEC PCR Stool E coli O157 PCR Stl Enterotoxigenic E PCR Stool EPEC (PCR) Stool EAEC (PCR) Stl E. histolytica PCR Stool Giardia Lamblia PCR Stl P. shigelloides PCR Stool Salmonella PCR Stool Sapovirus (PCR) Stl Shigella/EIEC PCR St Y.enterocolitica PCR Stool Vibrio (PCR) Stl Vibrio cholerae PCR Stl Norovirus GI/GII PCR Random Vancomycin IgE Respiratory Panel Alexandra Adenovirus (Rapid PCR) B.pert (TEM-PCR) B.parapertussis DNA PCR C. pneumoniae DNA (PCR) C. difficile Tox B Gene Coronavirus OC43 (PCR) Coronavirus HKU1 (PCR) Coronavirus 229E (PCR) Coronavirus NL63 (PCR) CMV Specimen Source CMV Qnt PCR IU/mL CMV Qnt PCR log IU/mL Human Metapneumovir PCR Influenza A (RT-PCR) Influenza A (H1) PCR Influ A (H1/09) PCR Influenza A (H3) PCR Influenza Type A (PCR) Influenza B (RT-PCR) Influenza Type B (PCR) M. pneumoniae (PCR) Parainfluenza 1 (PCR) Parainfluenza 2 (PCR) Parainfluenza 3 (PCR) Parainfluenza 4 (PCR) Aspergillus Ag (EIA) Aspergillus Index Value RSV (PCR) RSV RNA Qual (PCR) Entero/Rhino (PCR) SARS-CoV-2 RNA (RT-PCR) Beta-(1,3)-D-Glucan B-(1,3)-D-Glucan Intrp Blood Type Antibody Screen Crossmatch 02/08/25 02/09/25 02/09/25 20:31 07:03 10:04 WBC 4.1 L RBC 2.67 L Hgb 8.1 L Hct 22.5 L MCV 84.3 MCH 30.3 MCHC 36.0 H RDW 16.1 H Plt Count 191 MPV 8.9 L Immature Gran % (Auto) Neut % (Auto) Lymph % (Auto) [place] % (Auto) Eos % (Auto) Baso % (Auto) Lymph # (Auto) [place] # (Auto) Eos # (Auto) Baso # (Auto) Abs Immat Gran (auto) Absolute Neuts (auto) Absolute Nucleated RBC 0.000 Nucleated RBC % (auto) 0.0 Neutrophils % (Manual) Band Neutrophils % Lymphocytes % (Manual) Atypical Lymphs % (Man) Monocytes % (Manual) Eosinophils % (Manual) Basophils % (Manual) Metamyelocytes % Myelocytes % Abs Neuts (Manual) Lymphocytes # (Manual) Atyp Lymphs # (Manual) Monocytes # (Manual) Eosinophils # (Manual) Basophils # (Manual) Metamyelocytes # Myelocytes # Nucleated RBCs Hypersegmented Neuts Smudge Cells Toxic Granulation Toxic Vacuolation Dohle Bodies Platelet Estimate Large Platelets Giant Platelets Plt Morphology Comment RBC Morphology Polychromasia Hypochromasia Basophilic Stippling Microcytosis Macrocytosis Target Cells Tear Drop Cells Ovalocytes Stomatocytes Regulo Cells Acanthocytes (Spur) Schistocytes Smear Path Review PT INR APTT Fibrinogen O2 Saturation ABG pH at Pt Temp ABG pCO2 at Pt Temp ABG pO2 at Pt Temp ABG HCO3 ABG Base Excess (Actual) VBG pH VBG pCO2 VBG pO2 VBG HCO3 VBG O2 Saturation VBG Base Excess Sodium 133 L Potassium 3.2 L D Chloride 104 Carbon Dioxide 22 Anion Gap 10 L BUN 11 Creatinine 0.63 Estim Creat Clear Calc 88.1 Estimated GFR > 60 POC Glucose 139 H 117 H Random Glucose 145 H Lactic Acid Lactic Acid F/U @ 2Hr Calcium 7.2 L D Phosphorus Magnesium 1.4 L* Total Bilirubin Direct Bilirubin AST ALT Alkaline Phosphatase Lactate Dehydrogenase Troponin I High Sens B-Natriuretic Peptide Total Protein Albumin Vitamin K1 Hold Yellow Top Urine Color Urine Appearance Urine pH Ur Specific [place] Urine Protein Urine Glucose (UA) Urine Ketones Urine Blood Urine Nitrite Ur Leukocyte Esterase Urine RBC Urine WBC Ur Squamous Epith Cells Urine Bacteria Hyaline Casts Bronchial Fluid WBC Bronchial Fluid RBC Bronchial Lymphocytes Bronchial Other Cells Stool Occult Blood Stl C. cayetanensis PCR Stool Rotavirus A PCR Stl Adenov F 40/41 PCR Stool Astrovirus (PCR) Stool Campylobacter PCR Stool Cryptosporidium PCR Stl Sh Tox Pr E STEC PCR Stool E coli O157 PCR Stl Enterotoxigenic E PCR Stool EPEC (PCR) Stool EAEC (PCR) Stl E. histolytica PCR Stool Giardia Lamblia PCR Stl P. shigelloides PCR Stool Salmonella PCR Stool Sapovirus (PCR) Stl Shigella/EIEC PCR St Y.enterocolitica PCR Stool Vibrio (PCR) Stl Vibrio cholerae PCR Stl Norovirus GI/GII PCR Random Vancomycin IgE Respiratory Panel Alexandra Adenovirus (Rapid PCR) B.pert (TEM-PCR) B.parapertussis DNA PCR C. pneumoniae DNA (PCR) C. difficile Tox B Gene Coronavirus OC43 (PCR) Coronavirus HKU1 (PCR) Coronavirus 229E (PCR) Coronavirus NL63 (PCR) CMV Specimen Source CMV Qnt PCR IU/mL CMV Qnt PCR log IU/mL Human Metapneumovir PCR Influenza A (RT-PCR) Influenza A (H1) PCR Influ A (H1/09) PCR Influenza A (H3) PCR Influenza Type A (PCR) Influenza B (RT-PCR) Influenza Type B (PCR) M. pneumoniae (PCR) Parainfluenza 1 (PCR) Parainfluenza 2 (PCR) Parainfluenza 3 (PCR) Parainfluenza 4 (PCR) Aspergillus Ag (EIA) Aspergillus Index Value RSV (PCR) RSV RNA Qual (PCR) Entero/Rhino (PCR) SARS-CoV-2 RNA (RT-PCR) Beta-(1,3)-D-Glucan B-(1,3)-D-Glucan Intrp Blood Type Antibody Screen Crossmatch 02/09/25 02/09/25 02/09/25 11:28 15:43 21:00 WBC RBC Hgb Hct MCV MCH MCHC RDW Plt Count MPV Immature Gran % (Auto) Neut % (Auto) Lymph % (Auto) [place] % (Auto) Eos % (Auto) Baso % (Auto) Lymph # (Auto) [place] # (Auto) Eos # (Auto) Baso # (Auto) Abs Immat Gran (auto) Absolute Neuts (auto) Absolute Nucleated RBC Nucleated RBC % (auto) Neutrophils % (Manual) Band Neutrophils % Lymphocytes % (Manual) Atypical Lymphs % (Man) Monocytes % (Manual) Eosinophils % (Manual) Basophils % (Manual) Metamyelocytes % Myelocytes % Abs Neuts (Manual) Lymphocytes # (Manual) Atyp Lymphs # (Manual) Monocytes # (Manual) Eosinophils # (Manual) Basophils # (Manual) Metamyelocytes # Myelocytes # Nucleated RBCs Hypersegmented Neuts Smudge Cells Toxic Granulation Toxic Vacuolation Dohle Bodies Platelet Estimate Large Platelets Giant Platelets Plt Morphology Comment RBC Morphology Polychromasia Hypochromasia Basophilic Stippling Microcytosis Macrocytosis Target Cells Tear Drop Cells Ovalocytes Stomatocytes Regulo Cells Acanthocytes (Spur) Schistocytes Smear Path Review PT INR APTT Fibrinogen O2 Saturation ABG pH at Pt Temp ABG pCO2 at Pt Temp ABG pO2 at Pt Temp ABG HCO3 ABG Base Excess (Actual) VBG pH VBG pCO2 VBG pO2 VBG HCO3 VBG O2 Saturation VBG Base Excess Sodium Potassium Chloride Carbon Dioxide Anion Gap BUN Creatinine Estim Creat Clear Calc Estimated GFR POC Glucose 141 H 144 H 146 H Random Glucose Lactic Acid Lactic Acid F/U @ 2Hr Calcium Phosphorus Magnesium Total Bilirubin Direct Bilirubin AST ALT Alkaline Phosphatase Lactate Dehydrogenase Troponin I High Sens B-Natriuretic Peptide Total Protein Albumin Vitamin K1 Hold Yellow Top Urine Color Urine Appearance Urine pH Ur Specific [place] Urine Protein Urine Glucose (UA) Urine Ketones Urine Blood Urine Nitrite Ur Leukocyte Esterase Urine RBC Urine WBC Ur Squamous Epith Cells Urine Bacteria Hyaline Casts Bronchial Fluid WBC Bronchial Fluid RBC Bronchial Lymphocytes Bronchial Other Cells Stool Occult Blood Stl C. cayetanensis PCR Stool Rotavirus A PCR Stl Adenov F 40/41 PCR Stool Astrovirus (PCR) Stool Campylobacter PCR Stool Cryptosporidium PCR Stl Sh Tox Pr E STEC PCR Stool E coli O157 PCR Stl Enterotoxigenic E PCR Stool EPEC (PCR) Stool EAEC (PCR) Stl E. histolytica PCR Stool Giardia Lamblia PCR Stl P. shigelloides PCR Stool Salmonella PCR Stool Sapovirus (PCR) Stl Shigella/EIEC PCR St Y.enterocolitica PCR Stool Vibrio (PCR) Stl Vibrio cholerae PCR Stl Norovirus GI/GII PCR Random Vancomycin IgE Respiratory Panel Alexandra Adenovirus (Rapid PCR) B.pert (TEM-PCR) B.parapertussis DNA PCR C. pneumoniae DNA (PCR) C. difficile Tox B Gene Coronavirus OC43 (PCR) Coronavirus HKU1 (PCR) Coronavirus 229E (PCR) Coronavirus NL63 (PCR) CMV Specimen Source CMV Qnt PCR IU/mL CMV Qnt PCR log IU/mL Human Metapneumovir PCR Influenza A (RT-PCR) Influenza A (H1) PCR Influ A (H1/09) PCR Influenza A (H3) PCR Influenza Type A (PCR) Influenza B (RT-PCR) Influenza Type B (PCR) M. pneumoniae (PCR) Parainfluenza 1 (PCR) Parainfluenza 2 (PCR) Parainfluenza 3 (PCR) Parainfluenza 4 (PCR) Aspergillus Ag (EIA) Aspergillus Index Value RSV (PCR) RSV RNA Qual (PCR) Entero/Rhino (PCR) SARS-CoV-2 RNA (RT-PCR) Beta-(1,3)-D-Glucan B-(1,3)-D-Glucan Intrp Blood Type Antibody Screen Crossmatch 02/10/25 02/10/25 02/10/25 06:33 06:34 07:58 WBC 3.5 L RBC 3.33 L D Hgb 9.7 L Hct 28.3 L D MCV 85.0 MCH 29.1 MCHC 34.3 RDW 15.9 Plt Count 180 MPV 8.8 L Immature Gran % (Auto) Neut % (Auto) Lymph % (Auto) [place] % (Auto) Eos % (Auto) Baso % (Auto) Lymph # (Auto) [place] # (Auto) Eos # (Auto) Baso # (Auto) Abs Immat Gran (auto) Absolute Neuts (auto) Absolute Nucleated RBC 0.000 Nucleated RBC % (auto) 0.0 Neutrophils % (Manual) Band Neutrophils % Lymphocytes % (Manual) Atypical Lymphs % (Man) Monocytes % (Manual) Eosinophils % (Manual) Basophils % (Manual) Metamyelocytes % Myelocytes % Abs Neuts (Manual) Lymphocytes # (Manual) Atyp Lymphs # (Manual) Monocytes # (Manual) Eosinophils # (Manual) Basophils # (Manual) Metamyelocytes # Myelocytes # Nucleated RBCs Hypersegmented Neuts Smudge Cells Toxic Granulation Toxic Vacuolation Dohle Bodies Platelet Estimate Large Platelets Giant Platelets Plt Morphology Comment RBC Morphology Polychromasia Hypochromasia Basophilic Stippling Microcytosis Macrocytosis Target Cells Tear Drop Cells Ovalocytes Stomatocytes [place]illy Cells Acanthocytes (Spur) Schistocytes Smear Path Review PT INR APTT Fibrinogen O2 Saturation ABG pH at Pt Temp ABG pCO2 at Pt Temp ABG pO2 at Pt Temp ABG HCO3 ABG Base Excess (Actual) VBG pH VBG pCO2 VBG pO2 VBG HCO3 VBG O2 Saturation VBG Base Excess Sodium 134 L Potassium 4.4 D Chloride 103 Carbon Dioxide 25 Anion Gap 10 L BUN 10 Creatinine 0.60 Estim Creat Clear Calc 91.5 Estimated GFR > 60 POC Glucose 114 Random Glucose 119 H Lactic Acid Lactic Acid F/U @ 2Hr Calcium 7.3 L Phosphorus Magnesium Total Bilirubin Direct Bilirubin AST ALT Alkaline Phosphatase Lactate Dehydrogenase Troponin I High Sens B-Natriuretic Peptide Total Protein Albumin Vitamin K1 Hold Yellow Top Urine Color Urine Appearance Urine pH Ur Specific [place] Urine Protein Urine Glucose (UA) Urine Ketones Urine Blood Urine Nitrite Ur Leukocyte Esterase Urine RBC Urine WBC Ur Squamous Epith Cells Urine Bacteria Hyaline Casts Bronchial Fluid WBC Bronchial Fluid RBC Bronchial Lymphocytes Bronchial Other Cells Stool Occult Blood Stl C. cayetanensis PCR Stool Rotavirus A PCR Stl Adenov F 40/41 PCR Stool Astrovirus (PCR) Stool Campylobacter PCR Stool Cryptosporidium PCR Stl Sh Tox Pr E STEC PCR Stool E coli O157 PCR Stl Enterotoxigenic E PCR Stool EPEC (PCR) Stool EAEC (PCR) Stl E. histolytica PCR Stool Giardia Lamblia PCR Stl P. shigelloides PCR Stool Salmonella PCR Stool Sapovirus (PCR) Stl Shigella/EIEC PCR St Y.enterocolitica PCR Stool Vibrio (PCR) Stl Vibrio cholerae PCR Stl Norovirus GI/GII PCR Random Vancomycin IgE Respiratory Panel Alexandra Adenovirus (Rapid PCR) B.pert (TEM-PCR) B.parapertussis DNA PCR C. pneumoniae DNA (PCR) C. difficile Tox B Gene Coronavirus OC43 (PCR) Coronavirus HKU1 (PCR) Coronavirus 229E (PCR) Coronavirus NL63 (PCR) CMV Specimen Source CMV Qnt PCR IU/mL CMV Qnt PCR log IU/mL Human Metapneumovir PCR Influenza A (RT-PCR) Influenza A (H1) PCR Influ A (H1/) PCR Influenza A (H3) PCR Influenza Type A (PCR) Influenza B (RT-PCR) Influenza Type B (PCR) M. pneumoniae (PCR) Parainfluenza 1 (PCR) Parainfluenza 2 (PCR) Parainfluenza 3 (PCR) Parainfluenza 4 (PCR) Aspergillus Ag (EIA) Aspergillus Index Value RSV (PCR) RSV RNA Qual (PCR) Entero/Rhino (PCR) SARS-CoV-2 RNA (RT-PCR) Beta-(1,3)-D-Glucan B-(1,3)-D-Glucan Intrp Blood Type Antibody Screen Crossmatch 02/10/25 02/10/25 11:48 11:56 WBC RBC Hgb Hct MCV MCH MCHC RDW Plt Count MPV Immature Gran % (Auto) Neut % (Auto) Lymph % (Auto) [place] % (Auto) Eos % (Auto) Baso % (Auto) Lymph # (Auto) [place] # (Auto) Eos # (Auto) Baso # (Auto) Abs Immat Gran (auto) Absolute Neuts (auto) Absolute Nucleated RBC Nucleated RBC % (auto) Neutrophils % (Manual) Band Neutrophils % Lymphocytes % (Manual) Atypical Lymphs % (Man) Monocytes % (Manual) Eosinophils % (Manual) Basophils % (Manual) Metamyelocytes % Myelocytes % Abs Neuts (Manual) Lymphocytes # (Manual) Atyp Lymphs # (Manual) Monocytes # (Manual) Eosinophils # (Manual) Basophils # (Manual) Metamyelocytes # Myelocytes # Nucleated RBCs Hypersegmented Neuts Smudge Cells Toxic Granulation Toxic Vacuolation Dohle Bodies Platelet Estimate Large Platelets Giant Platelets Plt Morphology Comment RBC Morphology Polychromasia Hypochromasia Basophilic Stippling Microcytosis Macrocytosis Target Cells Tear Drop Cells Ovalocytes Stomatocytes Regulo Cells Acanthocytes (Spur) Schistocytes Smear Path Review PT INR APTT Fibrinogen O2 Saturation ABG pH at Pt Temp ABG pCO2 at Pt Temp ABG pO2 at Pt Temp ABG HCO3 ABG Base Excess (Actual) VBG pH VBG pCO2 VBG pO2 VBG HCO3 VBG O2 Saturation VBG Base Excess Sodium Potassium Chloride Carbon Dioxide Anion Gap BUN Creatinine Estim Creat Clear Calc Estimated GFR POC Glucose 103 Random Glucose Lactic Acid Lactic Acid F/U @ 2Hr Calcium Phosphorus Magnesium Total Bilirubin Direct Bilirubin AST ALT Alkaline Phosphatase Lactate Dehydrogenase Troponin I High Sens B-Natriuretic Peptide Total Protein Albumin Vitamin K1 Hold Yellow Top Urine Color Urine Appearance Urine pH Ur Specific [place] Urine Protein Urine Glucose (UA) Urine Ketones Urine Blood Urine Nitrite Ur Leukocyte Esterase Urine RBC Urine WBC Ur Squamous Epith Cells Urine Bacteria Hyaline Casts Bronchial Fluid WBC Bronchial Fluid RBC Bronchial Lymphocytes Bronchial Other Cells Stool Occult Blood Stl C. cayetanensis PCR Stool Rotavirus A PCR Stl Adenov F PCR Stool Astrovirus (PCR) Stool Campylobacter PCR Stool Cryptosporidium PCR Stl Sh Tox Pr E STEC PCR Stool E coli O157 PCR Stl Enterotoxigenic E PCR Stool EPEC (PCR) Stool EAEC (PCR) Stl E. histolytica PCR Stool Giardia Lamblia PCR Stl P. shigelloides PCR Stool Salmonella PCR Stool Sapovirus (PCR) Stl Shigella/EIEC PCR St Y.enterocolitica PCR Stool Vibrio (PCR) Stl Vibrio cholerae PCR Stl Norovirus GI/GII PCR Random Vancomycin IgE Respiratory Panel Alexandra Adenovirus (Rapid PCR) B.pert (TEM-PCR) B.parapertussis DNA PCR C. pneumoniae DNA (PCR) C. difficile Tox B Gene Coronavirus OC43 (PCR) Coronavirus HKU1 (PCR) Coronavirus 229E (PCR) Coronavirus NL63 (PCR) CMV Specimen Source CMV Qnt PCR IU/mL CMV Qnt PCR log IU/mL Human Metapneumovir PCR Influenza A (RT-PCR) Influenza A (H1) PCR Influ A (H1/09) PCR Influenza A (H3) PCR Influenza Type A (PCR) Influenza B (RT-PCR) Influenza Type B (PCR) M. pneumoniae (PCR) Parainfluenza 1 (PCR) Parainfluenza 2 (PCR) Parainfluenza 3 (PCR) Parainfluenza 4 (PCR) Aspergillus Ag (EIA) Aspergillus Index Value RSV (PCR) RSV RNA Qual (PCR) Entero/Rhino (PCR) SARS-CoV-2 RNA (RT-PCR) Beta-(1,3)-D-Glucan B-(1,3)-D-Glucan Intrp Blood Type B Positive Antibody Screen NEGATIVE Crossmatch Airway Mallampati Class: II TM Dist: <=3cm Neck ROM: Full Loose/Missing/Broken Teeth: Yes and Upper (edentulous upper) Heart: RRR Lungs: CTA Assessment and Plan Final Anesthetic Review Family History of Problems with Anesthesia: No History of Problems with Anesthesia: No ASA Class: IV Patient Risk: Intermediate Procedure Risk: Low Anesthetic Plan Anesthetic Plan: MAC: Disposition: Inp. Admit - Standard Bed
--- NOTE | 2025-02-10 13:40 | MHC.SHP ---
Pre-Procedural Eval Section A - 24 Hr Update-Section A only Date of Service: 02/10/25 The patient is an INPATIENT: Yes The patient has been examined within 24 hours of the surgical procedure. The History & Physical has been completed within 30 days and I have reviewed it.: Yes Section B - Complete if H&P > 30 days Chief Complaint: L colitis Allergies: Allergies Allergy/AdvReac Type Severity Reaction Status Date / Time iron Allergy Mild Difficulty Verified 01/15/25 16:21 Breathing Iodinated Contrast Media Allergy Unknown UNKNOWN Verified 01/15/25 16:21 [IV Dye, Iodine Containing] iodine [IODINE] Allergy Unknown RASH Verified 01/15/25 16:21 seafood Allergy Unknown Unknown Verified 01/15/25 16:21 Plan Diagnosis/Plan: Unchanged I have reviewed the history and physical and performed a pertinent physical examination on my patient. No changes have occurred unless specified. Time Spent With Patient Time: Total time managing care of this patient today ____ minutes.
--- NOTE | 2025-02-10 14:22 | P.OPN-COLO_ITS ---
Colonoscopy Operative Note Operative Note Date of Service: 02/10/25 Narrative: Procedure: Flexible sigmoidoscopy Indication: Lower GI bleeding Endoscopist: Estella Wheeler MD Anesthesia Provider: Cortez Riggs and Radha Anesthesia type: MAC Instrument: Olympus [id number]-[id number] Consent: Indication, risks vs benefits, and alternatives were discussed with the patient's daughter over the phone who gave written informed consent to proceed. An streetcar repairer helper was utilized to assist with the consent. Monitoring: EKG, pulse, pulse oximetry and blood pressure were monitored throughout the procedure. Please see anesthesia flowsheet. Procedure: The patient was brought to the procedure room and placed in the left lateral decubitus position. IV medications were administered by the anesthesia provider in attendance. A digital rectal exam was performed which was abnormal due to finding of hemorrhoids. The gastroscope was then inserted through the anus and advanced through the colon to the descending colon at 50 cm. Mucosa was carefully examined under high definition white light as the instrument was slowly withdrawn in a retrograde panoramic fashion. Retroflexion was performed in rectum. The procedure was not difficult. There were no immediate obvious complications. The quality of the prep was fair Limitations: No limitations. Findings: Mucosa: Liquid brown stool coating the left side of the colon which was flushed off. Normal underlying mucosa was noted. Cold forceps biopsies were taken to r/o microscopic colitis. Protruding lesions: * Large internal hemorrhoids with active bleeding from a hemorrhoid at 1 o clock. Impression: 1. Normal colon mucosa to tbe extent examined. (Biopsy) 2. Bleeding internal hemorrhoids Recommendations: - Bleeding likely 2/2 hemorrhoids - Consider Anusol suppositories, sitz baths - Surgery colleagues updated as well for consideration of surgical management
--- NOTE | 2025-02-10 14:36 | MHC.SLORD ---
Speech Language Pathology Order Status: Pt NPO for GI procedure today. 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
[2025-02-10 15:53] LABS: Glucose, Whole Blood 99 mg/dL (60-115)
[2025-02-10 20:51] LABS: Glucose, Whole Blood 154 mg/dL (60-115)
[2025-02-10] MEDS: Potassium Chloride Packet 20 MEQ PACKET 40 MEQ PO (22:45)
[2025-02-10] MEDS: Atorvastatin Calcium 40 MG TABLET PO (22:46)
[2025-02-10] MEDS: Insulin Lispro 100 UNIT/ML 3 ML VIAL SUBCUT (22:50)
[2025-02-11] VITALS (7 sets, daily range): BP systolic 124–156; BP diastolic 64–71; PULSE 92–113; RESP 14–22; TEMP 36.9–37.4; O2SAT 95–100
[2025-02-11] MEDS: Acetaminophen 325 MG TABLET 975 MG PO ×3 (04:47→22:11)
[2025-02-11] MEDS: guaiFENesin 200 MG/10 ML 10 ML LIQUID PO (04:47)
[2025-02-11 07:31] LABS: Glucose, Whole Blood 108 mg/dL (60-115)
--- NOTE | 2025-02-11 08:33 | HO.POSTANES ---
Post Anesthesia Evaluation Post Anesthesia Evaluation Date of Service: 02/11/25 Vital Signs: Vital Signs Temp Pulse Resp BP Pulse Ox O2 Del Method O2 Flow Rate 02/11/25 07:24 98.4 F 92 14 141/70 H 96 Nasal Cannula 1 02/11/25 04:00 98.7 F 95 16 156/67 H 96 Nasal Cannula 1 02/10/25 23:59 97.8 F 106 H 16 142/77 H 100 Nasal Cannula 1 Anesthesia: Monitored Mental Status: Awake Pain Control: Satisfactory Nausea/Vomiting: None Hydration: Adequate Anesthesia-Related Issues: No Anes. Related Issues
--- NOTE | 2025-02-11 08:36 | PM.PNGS ---
Subjective Subjective Date of Service: 02/11/25 Interval history: No blood per rectum overnight. Patient sitting up in bed this morning eating breakfast. Denies abd pain. Physical Exam Vital Signs: Vital Signs: Last Vital Signs Temp 98.4 F 02/11/25 07:24 Pulse 92 02/11/25 07:24 Resp 14 02/11/25 07:24 BP 141/70 H 02/11/25 07:24 Pulse Ox 96 02/11/25 07:24 O2 Del Method Nasal Cannula 02/11/25 07:24 O2 Flow Rate 1 02/11/25 07:24 FiO2 26 01/25/25 05:00 BMI result Body Mass Index 30.0 Const: General: comfortable, no acute distress and alert GI: Inspection: No distended Palpation (GI): Soft to palpation, nontender and no guarding Objective Data Active Medications Acetaminophen (Acetaminophen 325 Mg Tablet) 975 mg PO Q6H [facility] Last Admin: 02/11/25 04:47 Dose: 975 mg Documented By: ONOFRE Ascorbic Acid (Ascorbic Acid 250 Mg Tablet) 250 mg PO DAILY [facility] Last Admin: 02/10/25 09:55 Dose: Not Given Documented By: MICKEY Non-Admin Reason: NPO Atorvastatin Calcium (Atorvastatin Calcium 40 Mg Tablet) 40 mg PO BEDTIME [facility]AW[facility] Last Admin: 02/10/25 22:46 Dose: 40 mg Documented By: ONOFRE Dextrose (Dextrose 50 % 25 Gm/50 Ml Syringe) 25 gm IVPUSH Q15M PRN; Protocol PRN Reason: per Hypoglycemia Standing Ord. Last Admin: 01/25/25 03:11 Dose: 25 gm Documented By: PRINCE Comments: per provider Folic Acid (Folic Acid 1 Mg Tablet) 1 mg PO DAILY [facility] Last Admin: 02/10/25 09:55 Dose: Not Given Documented By: MICKEY Non-Admin Reason: NPO Furosemide (Furosemide 20 Mg/2 Ml Vial) 20 mg IVPUSH BID@0900,1800 [facility]; Protocol Last Admin: 02/10/25 17:52 Dose: 20 mg Documented By: CARMEN Glucose (Glucose Gel 15 Gm Gel..Gram.) 15 gm PO Q15M PRN; Protocol PRN Reason: per Hypoglycemia Standing Ord. Last Admin: 02/05/25 08:03 Dose: 15 gm Documented By: HO.CHARLOTTE Guaifenesin (Guaifenesin 200 Mg/10 Ml 10 Ml Liquid) 10 ml PO Q4H PRN PRN Reason: Cough Last Admin: 02/11/25 04:47 Dose: 10 ml Documented By: ONOFRE Insulin Human Lispro (Insulin Lispro 100 Unit/Ml 3 Ml Vial) 0 unit SUBCUT QIDACHS [facility]; Protocol Last Admin: 02/10/25 22:50 Dose: 2 unit Documented By: ONOFRE Melatonin (Melatonin 3 Mg Tablet) 6 mg PO BEDTIME PRN PRN Reason: Insomnia Last Admin: 02/02/25 22:48 Dose: 6 mg Documented By: DENISA Comments: requested for sleep Naloxone HCl (Naloxone Hcl 0.4 Mg/Ml Vial) 0.04 mg IVPUSH Q5M PRN PRN Reason: Excessive sedation or RR < 8 Nystatin (Nystatin Powder 15 Gm Bottle) 1 appl TOPICAL TID [facility]; Protocol Last Admin: 02/10/25 22:52 Dose: 1 appl Documented By: ONOFRE Ondansetron HCl (Ondansetron Hcl 4 Mg/2 Ml Vial) 4 mg IVPUSH Q8H PRN PRN Reason: Nausea and Vomiting Last Admin: 02/09/25 12:03 Dose: 4 mg Documented By: NIKKI Pantoprazole Sodium (Pantoprazole Sodium 40 Mg/10 Ml Vial) 40 mg IVPUSH BID@0630,1630 [facility] Last Admin: 02/10/25 17:54 Dose: 40 mg Documented By: CARMEN Potassium Chloride (Potassium Chloride Packet 20 Meq Packet) 40 meq PO BID [facility] Last Admin: 02/10/25 22:45 Dose: 40 meq Documented By: ONOFRE Sodium Chloride (0.9 % Sodium Chloride Flush 3 Ml Syringe) 3 ml IVFLUSH QSHIFT [facility] Last Admin: 02/10/25 22:55 Dose: 3 ml Documented By: ONOFRE Thiamine HCl (Thiamine Hcl 100 Mg Tablet) 100 mg PO DAILY [facility] Last Admin: 02/10/25 09:56 Dose: Not Given Documented By: MICKEY Non-Admin Reason: NPO Zinc Sulfate (Zinc Sulfate 220 Mg Capsule) 220 mg PO DAILY [facility] Last Admin: 02/10/25 09:56 Dose: Not Given Documented By: MICKEY Non-Admin Reason: NPO Labs 02/10/25 06:34 02/10/25 06:33 Labs: Laboratory Results - last 24 hr 02/10/25 02/10/25 02/10/25 11:48 11:56 15:43 POC Glucose 103 99 Blood Type B Positive Antibody Screen NEGATIVE 02/10/25 02/11/25 20:46 07:25 POC Glucose 154 H 108 Blood Type Antibody Screen Microbiology Microbiology Results: Microbiology 01/17/25 15:09 Fungal Identification - Preliminary Bronch Lll Pratibha albicans Procedures Date of Service Date of Service: 02/11/25 Progress Note: A&P Assessment and plan (1) Blood per rectum: Status: Acute Plan Flex sig yesterday showed bleeding hemorrhoids, biopsies of left colon taken. She is tolerating solid diet, abd remains very benign and no further BRBPR overnight. H/H has remained stable. Would treat hemorrhoids conservatively at this time with steroid suppository, fiber supplementation. She is high risk for any surgical procedure. Time Spent With Patient Time: Total time managing care of this patient today ____ minutes. Quality Stroke Does the patient have a stroke diagnosis?: No VTE Prior VTE?: No VTE Risk Level:: Medical - moderate - high VTE Device Contraindication: N/A - Device Ordered VTE Drug Contraindication: N/A - Med Ordered
[2025-02-11] MEDS: Furosemide 20 MG/2 ML VIAL IVPUSH ×2 (09:05→16:54)
[2025-02-11] MEDS: Folic Acid 1 MG TABLET PO (09:06)
[2025-02-11] MEDS: Potassium Chloride Packet 20 MEQ PACKET 40 MEQ PO ×2 (09:06→22:11)
[2025-02-11] MEDS: Zinc Sulfate 220 MG CAPSULE PO (09:06)
[2025-02-11] MEDS: Thiamine HCL 100 MG TABLET PO (09:06)
[2025-02-11] MEDS: Ascorbic Acid 250 MG TABLET PO (09:06)
[2025-02-11] MEDS: 0.9 % Sodium Chloride Flush 3 ML SYRINGE IVFLUSH ×2 (09:07→16:55)
[2025-02-11] MEDS: Nystatin Powder 15 GM BOTTLE 1 APPL TOPICAL ×3 (09:15→22:19)
--- NOTE | 2025-02-11 11:02 | HO.PM.IMPN ---
Subjective Subjective Date of Service: 02/11/25 Interval History: Follow-up for colitis/GI bleeding/weakness Patient denied pain Review of Systems Review of Systems: Yes all other systems are reviewed and are negative Constitutional Constitutional: Denies chills and Denies fever(s) Cardiovascular Cardiovascular: Denies chest pain, Denies palpitations and Denies dyspnea Respiratory Respiratory: Denies cough and Denies dyspnea Gastrointestinal Gastrointestinal: Reports abdominal pain, Denies nausea and Reports vomiting Endocrine Endocrine: Denies palpitations Physical Exam Vital Signs: Vital Signs: Last Vital Signs Temp 98.4 F 02/11/25 07:24 Pulse 92 02/11/25 07:24 Resp 14 02/11/25 07:24 BP 138/64 02/11/25 09:05 Pulse Ox 96 02/11/25 07:24 O2 Del Method Nasal Cannula 02/11/25 07:24 O2 Flow Rate 1 02/11/25 07:24 FiO2 26 01/25/25 05:00 BMI result Body Mass Index 30.0 Appearing in no acute distress lung sounds are clear to auscultation heart regular rate rhythm, clear S1, S2 positive bowel sounds, abdomen is soft, nontender neuro patient is alert x3, no focal deficits Objective Data Active Medications Acetaminophen (Acetaminophen 325 Mg Tablet) 975 mg PO Q6H [facility] Last Admin: 02/11/25 04:47 Dose: 975 mg Documented By: ONOFRE Ascorbic Acid (Ascorbic Acid 250 Mg Tablet) 250 mg PO DAILY [facility] Last Admin: 02/11/25 09:06 Dose: 250 mg Documented By: LIONEL Atorvastatin Calcium (Atorvastatin Calcium 40 Mg Tablet) 40 mg PO BEDTIME [facility] Last Admin: 02/10/25 22:46 Dose: 40 mg Documented By: ONOFRE Dextrose (Dextrose 50 % 25 Gm/50 Ml Syringe) 25 gm IVPUSH Q15M PRN; Protocol PRN Reason: per Hypoglycemia Standing Ord. Last Admin: 01/25/25 03:11 Dose: 25 gm Documented By: PRINCE Comments: per provider Folic Acid (Folic Acid 1 Mg Tablet) 1 mg PO DAILY [facility] Last Admin: 02/11/25 09:06 Dose: 1 mg Documented By: LIONEL Furosemide (Furosemide 20 Mg/2 Ml Vial) 20 mg IVPUSH BID@0900,1800 [facility]; Protocol Last Admin: 02/11/25 09:05 Dose: 20 mg Documented By: LIONEL Glucose (Glucose Gel 15 Gm Gel..Gram.) 15 gm PO Q15M PRN; Protocol PRN Reason: per Hypoglycemia Standing Ord. Last Admin: 02/05/25 08:03 Dose: 15 gm Documented By: BRANDEE Guaifenesin (Guaifenesin 200 Mg/10 Ml 10 Ml Liquid) 10 ml PO Q4H PRN PRN Reason: Cough Last Admin: 02/11/25 04:47 Dose: 10 ml Documented By: ONOFRE Insulin Human Lispro (Insulin Lispro 100 Unit/Ml 3 Ml Vial) 0 unit SUBCUT QIDACHS [facility]; Protocol Last Admin: 02/11/25 09:00 Dose: Not Given Documented By: LIONEL Non-Admin Reason: No Insulin Coverage Melatonin (Melatonin 3 Mg Tablet) 6 mg PO BEDTIME PRN PRN Reason: Insomnia Last Admin: 02/02/25 22:48 Dose: 6 mg Documented By: DENISA Comments: requested for sleep Naloxone HCl (Naloxone Hcl 0.4 Mg/Ml Vial) 0.04 mg IVPUSH Q5M PRN PRN Reason: Excessive sedation or RR < 8 Nystatin (Nystatin Powder 15 Gm Bottle) 1 appl TOPICAL TID [facility]; Protocol Last Admin: 02/11/25 09:15 Dose: 1 appl Documented By: LIONEL Ondansetron HCl (Ondansetron Hcl 4 Mg/2 Ml Vial) 4 mg IVPUSH Q8H PRN PRN Reason: Nausea and Vomiting Last Admin: 02/09/25 12:03 Dose: 4 mg Documented By: NIKKI Pantoprazole Sodium (Pantoprazole Sodium 40 Mg/10 Ml Vial) 40 mg IVPUSH BID@0630,1630 [facility] Last Admin: 02/10/25 17:54 Dose: 40 mg Documented By: CARMEN Potassium Chloride (Potassium Chloride Packet 20 Meq Packet) 40 meq PO BID [facility] Last Admin: 02/11/25 09:06 Dose: 40 meq Documented By: LIONEL Sodium Chloride (0.9 % Sodium Chloride Flush 3 Ml Syringe) 3 ml IVFLUSH QSHIFT [facility] Last Admin: 02/11/25 09:07 Dose: 3 ml Documented By: LIONEL Thiamine HCl (Thiamine Hcl 100 Mg Tablet) 100 mg PO DAILY [facility] Last Admin: 02/11/25 09:06 Dose: 100 mg Documented By: LIONEL Zinc Sulfate (Zinc Sulfate 220 Mg Capsule) 220 mg PO DAILY [facility] Last Admin: 02/11/25 09:06 Dose: 220 mg Documented By: LIONEL Labs 02/10/25 06:34 02/10/25 06:33 Labs: Laboratory Results - last 24 hr 02/10/25 02/10/25 02/10/25 11:48 11:56 15:43 POC Glucose 103 99 Blood Type B Positive Antibody Screen NEGATIVE 02/10/25 02/11/25 20:46 07:25 POC Glucose 154 H 108 Blood Type Antibody Screen Microbiology Microbiology Results: Microbiology 01/17/25 15:09 Fungal Identification - Preliminary Bronch Lll Pratibha albicans Assessment and Plan (1) Peripheral neuropathy: Status: Acute (2) Blood per rectum: Status: Acute (3) Pneumatosis of intestines: Status: Acute Plan 59F PMH diabetes mellitus, htn, hld, peripheral neuropathy, gerd, admitted with acute hypoxic respiratory failure with unclear etiology with progressive respiratory distress requiring intubation 01/16/2025. subsequently developed acute blood loss anemia secondary to lower GI bleed. Status post embolization on 01/22/2025. Extubated 01/24/2025. Downgraded to the medical floor 01/26. Also with noted encephalopathy and MRI from 01/20 c/w stroke now with recurrent rectal bleeding. Acute lower GI bleed with acute blood loss anemia and hemmorragic shock titrated off pressors in ICU Tagged red cell scan was positive on 01/21/2025 status post embolization on 01/22/2025, Successful embolization of active bleeding identified from branches of the inferior mesenteric artery supplying the proximal sigmoid colon. additional units given on 01/26 and 02/02/25 (4 total) recurrent rectal bleeding 02/07; repeat ct bleeding scan negative for active source of bleeding continues to have intermittent episodes of rectal bleeding but H/H has remained relatively stable plan for Flex Sig showing hemorrhoids, gi recommends Anusol right sided ischemic colitis surgery and gi following s/p course of zosyn Chronic diarrhea GI panel, C diff negative s/p course of Zosyn repeat imaging showing large amount of stool ?overflow diarrhea also with persistent colitis - no further antibiotics plan for flex sig as above b/l pleural effusions/anasarca no hypoxia will start gentle lasix Acute hypokalemia, acute hypomagnesemia Due to poor nutrition, decreased p.o. intake Continue scheduled potassium replacement IV magnesium Insulin-dependent type 2 diabetes with hypoglycemia lantus stopped continue Sliding-scale insulin Diabetic diet Hypoglycemia, d/t poor po intake Acute toxic metabolic Encephalopathy likely 2/2 acute stroke improving MRI brain with small acute right occipital infarct and stigmata of prior CVAs with moderate changes of small vessel ischemia and numerous old lacunar type infarcts in the anterior gangliocapsular regions and left thalamus. Aspirin, statin - aspirin now on hold for GI bleeding speech following, tolerating modified diet PT/OT rec acute rehab seen by neurology - does not feel pt had stroke rather weakness may be due to critical illness neuropathy - recommend EMG nerve conduction study op, also recommended adding vitamin supplementation Acute hypoxic respiratory failure requiring ventilatory support likely a result of hemorrhagic shock. suspected PNA on admission, completed abx extubated 01/24/2025 weaned off to RA Acute renal failure with metabolic acidosis resolved now with resp alkalosis Acute Hypernatremia resolved Hypotension. Resolved Placed on Clonidine patch in ICU, DCd; BP improved since then patient tends to have orthostatic hypotension with supine hypertension Mood disorder haldol and cogentin have been on hold d/w psych - ok to resume when able to take po UTI urine culture growing citrobacter s/p abx urinary retention failed voiding trial, replaced cornejo Prophylaxis: Pneumatic compression DISPO acute rehab Quality Stroke Does the patient have a stroke diagnosis?: No VTE Prior VTE?: No VTE Risk Level:: Medical - moderate - high VTE Device Contraindication: N/A - Device Ordered VTE Drug Contraindication: N/A - Med Ordered
[2025-02-11 11:19] LABS: Glucose, Whole Blood 162 mg/dL (60-115)
[2025-02-11] MEDS: Insulin Lispro 100 UNIT/ML 3 ML VIAL SUBCUT ×2 (12:12→16:55)
--- NOTE | 2025-02-11 14:01 | MHC.CM.PN ---
EMR reviewed and per MD rounds, pt is medically cleared for discharge to acute rehab, [facility] has offered her a bed, they have to resubmit the insurance auth which is now pending.
--- NOTE | 2025-02-11 14:29 | MHC.SL.SWA ---
Risk of Aspiration Due to: s/p extubation Dysphasia Diet Status: no change Liquid Consistency and Strategies for Safe Swallow: Liquid Intake Recommendation: Thin Liquid Intake Strategies: Small Sips Liquids by Teaspoon Only Solid Food Consistency: Dietary Recommendations: PUREE Oral Medication Intake: Crushed with Puree Please contact the pharmacy regarding appropriate crushable or liquid drug formulations that are available whenever modified delivery is recommended. Compensatory Strategies and Precautions to be Taken for Safe Swallow: Sitting Upright (90 deg) Small Bites and Sips Rate of Ingestion Change Oral Check Supervision While Eating and Drinking for Safe Swallow: Total Assistance (1:1) Swallowing Recommended Treatments: Compens. Strategy Educat. Recommendation for Speech: Inpatient Speech Therapy Comment: Recommend continue w/ PUREE solids d/t pt preference/loose fitting dentures. Continue w/ THIN liquids and pills CRUSHED in puree. Liquids by controlled cup sip/controlled straw sip. Patient with severe upper extremity weakness, continues to need full assistance at all meals. HEAD ORTHOPEDIC TEAM PHYSICIAN to re-assess tomorrow to upgrade if warranted. Pt reports no difficulty w/ speech/language; recommend further evaluation of comprehension and word finding. Human Resources Office Manager Clinican/Clinical Fellow: No Supervisory Statement: I have reviewed and agree with the student/clinical fellow's documentation: N/A Speech Language Pathologist: Monik Mckeon M.A., CCC-HEAD ORTHOPEDIC TEAM PHYSICIAN
[2025-02-11 16:46] LABS: Glucose, Whole Blood 174 mg/dL (60-115)
[2025-02-11] MEDS: Pantoprazole Sodium 40 MG/10 ML VIAL IVPUSH (16:55)
[2025-02-11 20:56] LABS: Glucose, Whole Blood 134 mg/dL (60-115)
[2025-02-11] MEDS: Atorvastatin Calcium 40 MG TABLET PO (22:12)
[2025-02-12] VITALS: BP 164/78; PULSE 99; RESP 20; TEMP 36.7; O2SAT 100
[2025-02-12 04:00] VITALS: BP 163/78; PULSE 98; RESP 20; TEMP 36.7; O2SAT 98
[2025-02-12] MEDS: Acetaminophen 325 MG TABLET 975 MG PO ×2 (05:43→12:08)
[2025-02-12] MEDS: Pantoprazole Sodium 40 MG/10 ML VIAL IVPUSH (05:44)
[2025-02-12 06:00] VITALS: BMI 28.9
[2025-02-12 07:15] VITALS: BP 142/80; PULSE 94; RESP 18; TEMP 36.6; O2SAT 96
[2025-02-12 07:50] LABS: Glucose, Whole Blood 122 mg/dL (60-115)
[2025-02-12] MEDS: Furosemide 20 MG/2 ML VIAL IVPUSH (07:50)
[2025-02-12] MEDS: Folic Acid 1 MG TABLET PO (07:50)
[2025-02-12] MEDS: Potassium Chloride Packet 20 MEQ PACKET 40 MEQ PO (07:50)
[2025-02-12] MEDS: Ascorbic Acid 250 MG TABLET PO (07:50)
[2025-02-12] MEDS: Zinc Sulfate 220 MG CAPSULE PO (07:50)
[2025-02-12] MEDS: Thiamine HCL 100 MG TABLET PO (07:50)
[2025-02-12] MEDS: Nystatin Powder 15 GM BOTTLE 1 APPL TOPICAL (07:51)
[2025-02-12] MEDS: 0.9 % Sodium Chloride Flush 3 ML SYRINGE IVFLUSH ×2 (07:51)
[2025-02-12 09:17] LABS: Hematocrit 29.7 % (37.0-47.0); Hemoglobin 10.4 g/dl (12.0-16.0); Mean Corpuscular Hemoglobin 29.5 pg (27.0-33.0); Mean Corpuscular Volume 84.4 fL (80.0-98.0); Platelet Count 195 X10*3/uL (160-400); Red Blood Count 3.52 X10*6/uL (4.20-5.50); Red Cell Distribution Width 16.5 % (11.0-16.0); White Blood Count 5.5 X10*3/uL (4.8-10.8)
[2025-02-12 09:28] LABS: Anion Gap 12 (12-20); Blood Urea Nitrogen 15 mg/dL (9-16); Calcium 7.8 mg/dL (8.4-10.2); Carbon Dioxide 29 mmol/L (22-29); Chloride 98 mmol/L (96-108); Estimated Glomerular Filt Rate > 60; Glucose Random 122 mg/dL (60-115); Potassium 4.2 mmol/L (3.3-5.1); Sodium 135 mmol/L (135-145)
--- NOTE | 2025-02-12 11:02 | MHC.CM.PN ---
Addendum entered by Aby Damon 02/12/25 12:29: All discharge info has been sent to the facility. Contact information for [facility] has been provided to the patients daughter. An crawler crane operator was utilized for all communication with the patient and her daughter in person and by phone. Original Note: Patient will discharge today to [facility] via BLS. Transportation is booked for 3pm coal picker.
--- NOTE | 2025-02-12 11:20 | P.DS_ITS ---
DS: Providers Provider Date of Service: 02/12/25 Date of admission: 01/15/25 19:12 Date of discharge: 02/12/25 Primary care physician: Nolan Blevins MD Consults: 01/16/25 07:00 Consult to Gastroenterology Routine Consulting Provider: Estella Wheeler Reason for consultation: GIB anemia Has provider been notified: No 01/30/25 11:29 Consult to Wound Care Routine Reason for consultation: left posterior upper thigh abrasion 01/30/25 21:53 Consult to General Surgery Routine Consulting Provider: [facility] Reason for consultation: Pneumatosis in the cecum. ?ischemic bowel 02/07/25 12:45 Consult to Neurology Routine Consulting Provider: [facility] Reason for consultation: upper extremity weakness; MRI +stroke Has provider been notified: No DS: Diagnosis Discharge Diagnosis (1) Peripheral neuropathy: Status: Acute (2) Blood per rectum: Status: Acute (3) Pneumatosis of intestines: Status: Acute (4) Critical illness neuropathy: Status: Acute (5) Hemorrhagic shock: Status: Acute (6) Colitis: Status: Acute (7) GI bleed: Status: Acute (8) Acute hypokalemia: Status: Acute (9) UTI (urinary tract infection): Status: Acute (10) Acute blood loss anemia: Status: Acute (11) CVA (cerebral vascular accident): Status: Acute (12) Encephalopathy acute: Status: Acute (13) Acute hypoxic respiratory failure: Status: Acute (14) Hypernatremia: Status: Acute (15) Hypomagnesemia: Status: Acute (16) Urinary retention: Status: Acute (17) Diabetes mellitus with hypoglycemia: Status: Acute (18) Acute renal failure: Status: Acute DS: Summary Hospital Course Hospital Course: From the history and physical by the admitting [employer], ALIYAH Stone, 01/15/25: ?59-year-old female with underlying history of chronic kidney disease stage 3 baseline creatinine of 1.7-2, hypertension, hyperlipidemia, diabetes, presyncopal episodes, orthostatic hypotension, recurrent UTIs, chronic diarrhea of unknown etiology, anxiety, migraines, asthma, depression, excess smoker among other things who was just admitted and discharged from this hospital close to 2 weeks ago.? At the time the patient had been admitted due to presyncopal episodes in the setting of orthostatic hypotension due to dehydration and chronic diarrhea.? She had also been noted to be anemic post transfusion of 1 packed red blood cells and iron studies.? Additionally labs were significant for non-anion gap acidosis due to diarrhea, placed on oral bicarbonate..? There were findings on CT consistent with possible bowel wall pneumatosis for which she had GI and surgery evaluations both recommended supportive therapy with IV fluids and antibiotics.? Repeated CT studies were consistent with colitis and no evidence of pneumatosis intestinalis.? The patient had been discharged on Flagyl and Ceftin for 1 more week which she was to finish around this time. Today the patient presented to emergency room with her daughter who reports the patient has had significant difficulty breathing.? The patient's appetite has been significantly diminished and she is noticeably more short of breath.? On arrival to the ER, the patient was noted to be hypoxic, hypotensive , tachycardic and tachypneic, however afebrile.? Given the concern for respiratory distress the patient was placed on non-rebreather then BiPAP. ?Her workup was significant for white count 7.3, H and H of 6.9 and 19.3 respectively, platelets 409, sodium 140, potassium of 3.7, chloride 114, carbon dioxide 15, BUN 23, creatinine 1.08, blood sugar 172.? Her differential does show 46% and toxic vacuolation.? Venous blood gas shows pH of 7.26, pCO2 35, PO2 52 and HC03 of 16.? Initial lactic acid 2.6.? Magnesium 2.0.? Normal liver functions BNP 444 which is not significantly higher than previous baseline, troponin less than 2.7.? Respiratory panel negative. ?Ultrasound done by the ER physician at bedside show preserved ejection fraction and Mcclelland B lines. ?The patient is noted to be significantly swollen. ?No IV fluids were administered due to risk of further CHF, however albumin at 01:33 mL/hour x2 were given along with Zosyn and vancomycin. ?Chest x-ray shows evidence of hypoventilation bilateral interstitial and alveolar opacities suggesting infection or edema. ?Her EKG shows sinus rhythm with rate of 94 beats per minute.? There is no ST elevations, no depressions.? QT 386 MS.? Looks unchanged from January 07, 2025 study. During my encounter, the patient is alert and oriented x3 no acute distress he is able to follow commands, on BiPAP with minimal accessory muscle usage, she is tachypneic at 36 breaths per minute.? Unable to answer questions.? The patient will be transferred to the ICU for further management. 59yo F with DM2, HTN, HLD, peripheral neuropathy, and GERD, admitted with acute hypoxic respiratory failure with unclear etiology with progressive respiratory distress requiring intubation 01/16/2025. Subsequently developed acute blood loss anemia secondary to lower GI bleed that was embolized on 01/22/2025. Extubated 01/24/2025. Downgraded to the medical floor 01/25/2025. Hospitalization complicated by generalized weakness likely from critical care neuropathy. Also with noted encephalopathy and MRI from 01/20/2025 showed small stroke. Also deve loped recurrent rectal bleeding on 02/07/2025 without active source noted on CT bleeding scan; ultimately this latter bleed was due to hemorrhoids. Hospital course by problem: acute lower GI bleed with acute blood loss anemia and hemorrhagic shock - required pressors in the ICU that were titrated off - NM tagged red cell scan was positive on 01/21/2025 - status post embolization on 01/22/2025 with successful embolization of active bleeding identified from branches of the inferior mesenteric artery supplying the proximal sigmoid colon - transfused total 4 units packed red blood cells - had recurrent rectal bleeding 02/07/[address] bleeding scan; Dr Wheeler performed flexible sigmoidoscopy on 02/10/25, which showed bleeding internal hemorrhoids - restarted aspirin and also started hydrocortisone rectal cream; H+H stable ischemic colitis and pneumatosis coli - completed course of piperacillin-tazobactam; GI and General Surgery followed chronic diarrhea - GI panel and C. difficile negative - completed piperacillin-tazobactam as above - large amount of stool on repeat imaging, possibly overflow diarrhea? - normal mucosa on flexible sigmoidoscopy on 02/10/25 bilateral pleural effusions/anasarca - started on furosemide and K replacement acute hypoK acute hypoMg - repleted DM2 with hypoglycemia - discontinued Lantus, managed only with sliding-scale Humalog acute encephalopathy due to acute stroke - MRI brain with small acute right occipital infarct and stigmata of prior CVAs with moderate changes of small vessel ischemia and numerous old lacunar type infarcts in the anterior gangliocapsular regions and left thalamus - started statin for primary prevention; ASA resumed after flexible sigmoidoscopy as above critical illness neuropathy - per Neurology, recommend EMG as outpatient; also started on zinc, vitamin C, thiamine, and folate acute hypoxic respiratory failure due to hemorrhagic shock - weaned off ventilator and extubated on 01/24/25 acute renal failure with metabolic acidosis - resolved acute hypernatremia - resolved urinary tract infection - completed antibiotics for Citrobacter freundii UTI urinary retention - failed voiding trial; discharged with Carrillo and should repeat voiding trial in a few days She was discharged to [facility] for acute inpatient rehabilitaiton. Time Attestation Discharge Coordination Time (in mins): 65 Quality: Safe Use of Opioids Does Pt have an Active Cancer Diagnosis on the Problem List?: No Quality: Stroke Does the patient have a stroke diagnosis?: No Physical Exam Vital Signs: Vital Signs: Last Vital Signs Temp 97.8 F 02/12/25 07:15 Pulse 94 02/12/25 07:15 Resp 18 02/12/25 07:15 BP 142/80 H 02/12/25 07:15 Pulse Ox 96 02/12/25 07:15 O2 Del Method Room Air 02/12/25 07:15 O2 Flow Rate 1 02/11/25 07:24 FiO2 26 01/25/25 05:00 BMI result Body Mass Index 28.9 Gen: in no acute distress HEENT: sclera anicteric, moist mucus membranes Neck: supple Lungs: clear to auscultation bilaterally Heart: regular rate and rhythm, no murmurs Abd: soft, non-tender, non-distended Ext: no edema Skin: warm/well-perfused Neuro: alert and oriented x3, generalized limb weakness Psych: appropriate affect DS: Data Data Completed and Pending Completed studies during hospitalization [Text1]: Laboratory Results WBC 5.5 X10*3/uL (4.8-10.8) 02/12/25 08:55 RBC 3.52 X10*6/uL (4.20-5.50) L 02/12/25 08:55 Hgb 10.4 g/dl (12.0-16.0) L 02/12/25 08:55 Hct 29.7 % (37.0-47.0) L 02/12/25 08:55 MCV 84.4 fL (80.0-98.0) 02/12/25 08:55 MCH 29.5 pg (27.0-33.0) 02/12/25 08:55 MCHC 35.0 g/dl (31.0-35.0) 02/12/25 08:55 RDW 16.5 % (11.0-16.0) H 02/12/25 08:55 Plt Count 195 X10*3/uL (160-400) 02/12/25 08:55 MPV 9.0 fL (9.4-12.3) L 02/12/25 08:55 Immature Gran % (Auto) Cancelled 01/29/25 06:28 Neut % (Auto) Cancelled 01/29/25 06:28 Lymph % (Auto) Cancelled 01/29/25 06:28 [place] % (Auto) Cancelled 01/29/25 06:28 Eos % (Auto) Cancelled 01/29/25 06:28 Baso % (Auto) Cancelled 01/29/25 06:28 Lymph # (Auto) Cancelled 01/29/25 06:28 [place] # (Auto) Cancelled 01/29/25 06:28 Eos # (Auto) Cancelled 01/29/25 06:28 Baso # (Auto) Cancelled 01/29/25 06:28 Abs Immat Gran (auto) Cancelled 01/29/25 06:28 Absolute Neuts (auto) Cancelled 01/29/25 06:28 Absolute Nucleated RBC 0.000 X10*3/uL (0.0-0.012) 02/12/25 08:55 Nucleated RBC % (auto) 0.0 /100WBC (0.0-0.2) 02/12/25 08:55 Neutrophils % (Manual) 55 % (45-73) 01/29/25 06:28 Band Neutrophils % 3 % (3-5) 01/29/25 06:28 Lymphocytes % (Manual) 30 % (20-40) 01/29/25 06:28 Atypical Lymphs % (Man) 1 % (0-6) 01/28/25 06:36 Monocytes % (Manual) 8 % (2-11) 01/29/25 06:28 Eosinophils % (Manual) 4 % (0-4) 01/29/25 06:28 Basophils % (Manual) 1 % (0-2) 01/28/25 06:36 Metamyelocytes % 1 % 01/28/25 06:36 Myelocytes % 1 % 01/27/25 06:43 Abs Neuts (Manual) 3.4 X10*3/uL (2.0-8.3) 01/29/25 06:28 Lymphocytes # (Manual) 1.8 X10*3/uL (1.2-4.9) 01/29/25 06:28 Atyp Lymphs # (Manual) 0.1 x10*3/uL 01/28/25 06:36 Monocytes # (Manual) 0.5 X10*3/uL (0.1-1.2) 01/29/25 06:28 Eosinophils # (Manual) 0.2 X10*3/uL (0.0-0.4) 01/29/25 06:28 Basophils # (Manual) 0.1 X10*3/uL (0.0-0.2) 01/28/25 06:36 Metamyelocytes # 0.1 X10*3/uL 01/28/25 06:36 Myelocytes # 0.1 X10*/uL 01/27/25 06:43 Nucleated RBCs 1 /100WBC (0-0) H 01/17/25 20:24 Hypersegmented Neuts PRESENT 01/20/25 21:21 Smudge Cells PRESENT 01/22/25 05:08 Toxic Granulation PRESENT 01/22/25 05:08 Toxic Vacuolation PRESENT 01/22/25 05:08 Dohle Bodies PRESENT 01/22/25 05:08 Platelet Estimate SLIGHTLY INCREASED (NORMAL) 01/29/25 06:28 Large Platelets PRESENT 01/22/25 05:08 Giant Platelets PRESENT 01/21/25 05:09 Plt Morphology Comment NORMAL 01/29/25 06:28 RBC Morphology NOTED 01/29/25 06:28 Polychromasia 1+ (0-2) /OIF 01/23/25 04:50 Hypochromasia 1+ (5-14) /OIF 01/29/25 06:28 Basophilic Stippling 1+ (0-2) /OIF 01/22/25 05:08 Microcytosis 1+ (5-14) /OIF 01/28/25 06:36 Macrocytosis 2+ (15-30) /OIF 01/20/25 21:21 Target Cells 1+ (5-14) /OIF 01/22/25 05:08 Tear Drop Cells 1+ (0-2) /OIF 01/22/25 05:08 Ovalocytes 1+ (5-14) /OIF 01/22/25 19:52 Stomatocytes 1+ (5-14) /OIF 01/22/25 05:08 [place] Cells 1+ (0-2) /OIF 01/29/25 06:28 Acanthocytes (Spur) 2+ (3-5) /OIF 01/23/25 04:50 Schistocytes 1+ (0-2) /OI 01/28/25 06:36 Smear Path Review SEE NOTE 01/15/25 20:45 PT 13.9 SEC (10.9-12.4) H 02/07/25 08:39 INR 1.2 (0.9-1.1) H 02/07/25 08:39 APTT 28.4 SEC (26.0-36.8) 01/22/25 05:08 Fibrinogen 311 MG/DL (259-690) 01/16/25 08:46 O2 Saturation 99.0 % 01/30/25 10:42 ABG pH at Pt Temp 7.51 (7.35-7.45) H 01/30/25 10:42 ABG pCO2 at Pt Temp 26 mmHg (32-45) L 01/30/25 10:42 ABG pO2 at Pt Temp 72 mmHg (83-108) L 01/30/25 10:42 ABG HCO3 21 mmol/L (22-26) L 01/30/25 10:42 ABG Base Excess (Actual) -0.8 mmol/L 01/30/25 10:42 VBG pH 7.50 (7.32-7.43) H 02/01/25 06:20 VBG pCO2 27 mmHg 02/01/25 06:20 VBG pO2 34 mmHg 02/01/25 06:20 VBG HCO3 21 mmol/L (22-26) L 02/01/25 06:20 VBG O2 Saturation 58.0 % 02/01/25 06:20 VBG Base Excess -0.9 mmol/L 02/01/25 06:20 Sodium 135 mmol/L (135-145) 02/12/25 08:55 Potassium 4.2 mmol/L (3.3-5.1) 02/12/25 08:55 Chloride 98 mmol/L (96-108) 02/12/25 08:55 Carbon Dioxide 29 mmol/L (22-29) 02/12/25 08:55 Anion Gap 12 (12-20) 02/12/25 08:55 BUN 15 mg/dL (9-16) 02/12/25 08:55 Creatinine 0.58 mg/dL (0.5-1.4) 02/12/25 08:55 Estim Creat Clear Calc 98.0 02/12/25 08:55 Estimated GFR > 60 02/12/25 08:55 POC Glucose 122 mg/dL (60-115) H 02/12/25 07:20 Random Glucose 122 mg/dL (60-115) H 02/12/25 08:55 Lactic Acid 0.4 mmol/L (0.5-2.0) L 02/07/25 16:40 Lactic Acid F/U @ 2Hr 1.0 mmol/L (0.5-2.0) 01/21/25 12:41 Calcium 7.8 mg/dL (8.4-10.2) L D 02/12/25 08:55 Phosphorus 2.0 mg/dL (2.7-4.5) L 01/26/25 06:55 Magnesium 1.4 mg/dL (1.6-2.6) L* 02/09/25 10:04 Total Bilirubin 0.6 mg/dL (0.0-1.0) 02/01/25 06:11 Direct Bilirubin 0.3 mg/dL (0.0-0.5) 02/01/25 06:11 AST 30 U/L (5-31) 02/01/25 06:11 ALT 6 U/L (0-31) 02/01/25 06:11 Alkaline Phosphatase 125 U/L (39-117) H 02/01/25 06:11 Lactate Dehydrogenase 211 U/L (122-220) 02/07/25 08:39 Troponin I High Sens < 2.7 ng/L (<3.5-17.0) D 01/15/25 16:37 B-Natriuretic Peptide 444 pg/mL (<100) H 01/15/25 16:37 Total Protein 4.5 g/dL (6.5-8.0) L 02/01/25 06:11 Albumin 2.5 g/dL (3.5-5.0) L 02/01/25 06:11 Vitamin K1 Cancelled 01/16/25 05:33 Hold Yellow Top See Note 02/07/25 16:16 Urine Color Yellow 01/27/25 04:03 Urine Appearance Cloudy 01/27/25 04:03 Urine pH 5.5 (5.0-9.0) 01/27/25 04:03 Ur Specific [place] 1.020 (1.005-1.025) 01/27/25 04:03 Urine Protein 100 (2+) mg/dL (Neg-Trace) H 01/27/25 04:03 Urine Glucose (UA) >=1000 mg/dL (Negative) H 01/27/25 04:03 Urine Ketones Trace mg/dL (Negative) 01/27/25 04:03 Urine Blood Small (1+) (Negative) H 01/27/25 04:03 Urine Nitrite Negative (Negative) 01/27/25 04:03 Ur Leukocyte Esterase Small (1+) (Negative) H 01/27/25 04:03 Urine RBC 0-2 /HPF (0-2) 01/27/25 04:03 Urine WBC 21-50 /HPF (0-5) H 01/27/25 04:03 Ur Squamous Epith Cells 0-2 /HPF (0-2) 01/27/25 04:03 Urine Bacteria 4+ (None Seen) 01/27/25 04:03 Hyaline Casts 0-2 /LPF (0-2) 01/27/25 04:03 Bronchial Fluid WBC 5 MM*3 01/17/25 15:09 Bronchial Fluid WBC 11 MM*3 01/17/25 15:09 Bronchial Fluid RBC 3 MM*3 01/17/25 15:09 Bronchial Fluid RBC 6 MM*3 01/17/25 15:09 Bronchial Lymphocytes 84 % 01/17/25 15:09 Bronchial Lymphocytes 94 % 01/17/25 15:09 Bronchial Other Cells 6 % 01/17/25 15:09 Bronchial Other Cells 16 % 01/17/25 15:09 Stool Occult Blood POSITIVE (NEGATIVE) 01/16/25 07:36 Stl C. cayetanensis PCR Not Detected (Not Detect.) 01/30/25 13:40 Stool Rotavirus A PCR Not Detected (Not Detect.) 01/30/25 13:40 Stl Adenov F PCR Not Detected (Not Detect.) 01/30/25 13:40 Stool Astrovirus (PCR) Not Detected (Not Detect.) 01/30/25 13:40 Stool Campylobacter PCR Not Detected (Not Detect.) 01/30/25 13:40 Stool Cryptosporidium PCR Not Detected (Not Detect.) 01/30/25 13:40 Stl Sh Tox Pr E STEC PCR Not Detected (Not Detect.) 01/30/25 13:40 Stool E coli O157 PCR Not applicable (Not Detect.) 01/30/25 13:40 Stl Enterotoxigenic E PCR Not Detected (Not Detect.) 01/30/25 13:40 Stool EPEC (PCR) Not Detected (Not Detect.) 01/30/25 13:40 Stool EAEC (PCR) Not Detected (Not Detect.) 01/30/25 13:40 Stl E. histolytica PCR Not Detected (Not Detect.) 01/30/25 13:40 Stool Giardia Lamblia PCR Not Detected (Not Detect.) 01/30/25 13:40 Stl P. shigelloides PCR Not Detected (Not Detect.) 01/30/25 13:40 Stool Salmonella PCR Not Detected (Not Detect.) 01/30/25 13:40 Stool Sapovirus (PCR) Not Detected (Not Detect.) 01/30/25 13:40 Stl Shigella/EIEC PCR Not Detected (Not Detect.) 01/30/25 13:40 St Y.enterocolitica PCR Not Detected (Not Detect.) 01/30/25 13:40 Stool Vibrio (PCR) Not Detected (Not Detect.) 01/30/25 13:40 Stl Vibrio cholerae PCR Not Detected (Not Detect.) 01/30/25 13:40 Stl Norovirus GI/GII PCR Not Detected (Not Detect.) 01/30/25 13:40 Random Vancomycin 17.4 mcg/mL (15-20) 01/19/25 05:58 IgE 193 kU/L (<FB=209) H 01/20/25 11:31 Respiratory Panel Alexandra See Note 01/16/25 09:22 Adenovirus (Rapid PCR) Not Detected (Not Detect.) 01/16/25 09:22 B.pert (TEM-PCR) Not Detected (Not Detect.) 01/16/25 09:22 B.parapertussis DNA PCR Not Detected (Not Detect.) 01/16/25 09:22 C. pneumoniae DNA (PCR) Not Detected (Not Detect.) 01/16/25 09:22 C. difficile Tox B Gene NEGATIVE (Negative) 01/30/25 08:58 Coronavirus OC43 (PCR) Not Detected (Not Detect.) 01/16/25 09:22 Coronavirus HKU1 (PCR) Not Detected (Not Detect.) 01/16/25 09:22 Coronavirus 229E (PCR) Not Detected (Not Detect.) 01/16/25 09:22 Coronavirus NL63 (PCR) Not Detected (Not Detect.) 01/16/25 09:22 CMV Specimen Source PLASMA 01/19/25 04:13 CMV Qnt PCR IU/mL <34.5 DETECTED 01/19/25 04:13 CMV Qnt PCR log IU/mL <1.54 DETECTED 01/19/25 04:13 Human Metapneumovir PCR Not Detected (Not Detect.) 01/16/25 09:22 Influenza A (RT-PCR) Not Detected (Not Detect.) 01/16/25 09:22 Influenza A (H1) PCR Not Detected (Not Detect.) 01/16/25 09:22 Influ A (H1/09) PCR Not Detected (Not Detect.) 01/16/25 09:22 Influenza A (H3) PCR Not Detected (Not Detect.) 01/16/25 09:22 Influenza Type A (PCR) NEGATIVE (Negative) 01/15/25 16:38 Influenza B (RT-PCR) Not Detected (Not Detect.) 01/16/25 09:22 Influenza Type B (PCR) NEGATIVE (Negative) 01/15/25 16:38 M. pneumoniae (PCR) Not Detected (Not Detect.) 01/16/25 09:22 Parainfluenza 1 (PCR) Not Detected (Not Detect.) 01/16/25 09:22 Parainfluenza 2 (PCR) Not Detected (Not Detect.) 01/16/25 09:22 Parainfluenza 3 (PCR) Not Detected (Not Detect.) 01/16/25 09:22 Parainfluenza 4 (PCR) Not Detected (Not Detect.) 01/16/25 09:22 Aspergillus Ag (EIA) Not Detected (Not Detected) 01/20/25 11:31 Aspergillus Index Value 0.04 (<0.50) 01/20/25 11:31 RSV (PCR) Not Detected (Not Detect.) 01/16/25 09:22 RSV RNA Qual (PCR) NEGATIVE (Negative) 01/15/25 16:38 Entero/Rhino (PCR) Not Detected (Not Detect.) 01/16/25 09:22 SARS-CoV-2 RNA (RT-PCR) Not Detected (Not Detect.) 01/16/25 09:22 Beta-(1,3)-D-Glucan 67 pg/mL (<60) H 01/16/25 08:46 B-(1,3)-D-Glucan Intrp Indeterminate A 01/16/25 08:46 Blood Type B Positive 02/10/25 11:48 Antibody Screen NEGATIVE 02/10/25 11:48 Crossmatch See Detail 02/07/25 08:39 Impressions Chest X-Ray 01/20/25 05:10 IMPRESSION: 1. Support devices in good position. 2. Improvement in airspace consolidation left base. Otherwise, stable diffuse hazy opacities throughout both lungs most confluent in the right lung base. 3. Borderline cardiac enlargement, similar. 4. No effusions or definitive pneumothorax. Electronically signed by: Sujit Calhoun MD 01/20/2025 08:00 AM EDT Brain MRI 01/20/25 12:00 IMPRESSION: 1. There is a tiny 3 mm focus of diffusion restriction in the right occipital pole, consistent with a tiny acute/subacute infarct. No additional infarctions identified. 2. There is no intracranial hemorrhage, mass effect, or edema. 3. There are moderate changes of small vessel ischemia. There are numerous old lacunar type infarcts in the anterior gangliocapsular regions and left thalamus. 4. There is age-appropriate cerebral and cerebellar volume loss. No abnormal patterns of atrophy. 5. There are bilateral mastoid and middle ear effusions, nonspecific in the setting of intubation. Electronically signed by: Sujit Calhoun MD 01/20/2025 01:31 PM EDT GI Bleed Scan Nuclear Medicine 01/21/25 09:45 IMPRESSION: Suspect focal initial isotope activity in splenic flexure. Initially there is a retrograde activity into the mid transverse colon and subsequently in the descending colon. Findings are consistent with positive GI bleed study.. Electronically signed by: Haider Jaffe MD 01/21/2025 12:16 PM EDT RP Abdomen/Pelvis CT 02/07/25 10:21 IMPRESSION: 1. Anasarca and moderate bilateral pleural effusions. Small amount of free fluid in the left paracolic gutter. 2. Wall thickening and mucosal hyperenhancement of the distal colon from the splenic flexure to the rectum compatible with colitis. Large amount of stool in the ascending and proximal transverse colon. No evidence of pneumatosis. 3. No contrast extravasation is seen to suggest active GI bleeding. Electronically signed by: Tobias Yarbrough MD 02/07/2025 11:22 AM EDT RP Discharge Plan Discharge Anticipated Discharge Date/Time: 02/12/25 11:11 Patient Disposition: Xfer Inpatient Rehab Fac Discharge Diagnosis: acute lower GI bleed with anemia and hemorrhagic shock ischemic colitis chronic diarrhea bilateral pleural effusion/anasarca hypokalemia, hypomagnesemia DM2 with hypoglycemia acute encephalopathy due to small stroke acute hypoxic respiratory failure due to hemorrhagic shock critical illness neuropathy acute renal failure with metabolic acidosis acute hypernatremia orthostatic hypotension mood disorder urinary tract infection urinary retention Referrals: [facility] [Outside] - 1 Week Nolan Blevins MD [Primary Care Provider] - 1 Week Jasiel Arriaga MD [Physician] - 2 Weeks (for NCS/EMG ) Discharge Medications: New atorvastatin 40 mg Tablet 40 mg PO BEDTIME Qty: 30 0RF hydrocortisone [Proctozone-HC] 2.5 % Cream With Perineal Applicator 1 appl [place] BEDTIME Qty: 30 0RF potassium chloride 20 mEq Packet 40 meq PO BID Qty: 60 0RF ascorbic acid (vitamin C) 250 mg Tablet 250 mg PO DAILY Qty: 30 0RF folic acid 1 mg Tablet 1 mg PO DAILY Qty: 30 0RF furosemide 20 mg Tablet 20 mg PO BID@0900,1800 Qty: 60 0RF Protocol: Hold for SBP< HOLD for SBP < : 90 nystatin [Nyamyc] 100,000 unit/gram Powder 1 appl topical TID Qty: 30 0RF Protocol: Apply to: Apply to: fold areas and dany areas insulin lispro [Admelog U-100 Insulin lispro] 100 unit/mL Solution See Protocol subcut QIDACHS Qty: 1 0RF Protocol: Insulin Correction Scale Less than or equal to 110 ---- Give (units): 0 111 to 150 Give (units): 0 151 to 200 Give (units): 2 201 to 250 Give (units): 4 251 to 300 Give (units): 6 301 to 350 Give (units): 8 Greater than 350 Give (units): 10 Call MD if Blood Glucose > : 350 zinc sulfate [Zinc-220] 50 mg zinc (220 mg) Capsule 220 mg PO DAILY Qty: 30 0RF thiamine mononitrate (vit B1) 100 mg Tablet 100 mg PO DAILY Qty: 30 0RF Continued haloperidol 5 mg tablet 1 tab PO BID esomeprazole magnesium [Nexium] 40 mg capsule,delayed release(DR/EC) 40 mg PO DAILY@0630 (DME) pen needle, diabetic 32 gauge x 3/16 needle See Rx Instructions .Route Qty: 100 0RF Rx Instructions: As directed loperamide 2 mg Capsule 2 mg PO Q2H PRN (Reason: Diarrhea) Qty: 30 0RF aspirin 81 mg tablet,delayed release (DR/EC) 81 mg PO DAILY benztropine 0.5 mg tablet 0.5 mg PO BID (DME) insulin syringe-needle U-100 [UltiCare] 0.5 mL 30 gauge x 1/2 syringe See Rx Instructions .ROUTE DAILY Qty: 10 Rx Instructions: As directed (DME) lancets [TRUEplus Lancets] 33 gauge misc See Rx Instructions .ROUTE DAILY Qty: 100 Rx Instructions: As directed (DME) pen needle, diabetic [Easy Touch] 31 gauge x 1/4 needle See Rx Instructions .ROUTE DIRECTED Qty: 100 Rx Instructions: As directed (DME) FreeStyle Lite Strips Strip See Rx Instructions .ROUTE DAILY Qty: 10 Rx Instructions: As directed famotidine [Pepcid] 20 mg tablet 20 mg PO BEDTIME Qty: 30 3RF gabapentin 100 mg capsule 100 mg PO BEDTIME Discontinued metronidazole 500 mg Tablet 500 mg PO Q12H Qty: 14 0RF sodium bicarbonate 650 mg Tablet 650 mg PO BID Qty: 60 0RF cefuroxime axetil 250 mg tablet 250 mg PO BID Qty: 14 0RF insulin glargine [Lantus Solostar U-100 Insulin] 100 unit/mL (3 mL) insulin pen 20 unit subcut BEDTIME Discharge Orders: Discharge Order (Routine); Ordered 02/12/25 Ordered By: Salma Rider Diet: Diabetic diet Activity on Discharge: As tolerated Stand Alone Forms: Patient Portal Discharge page Print Language: Macedonian Care Plan Goals: recovery from critical illness Health Concerns: acute lower GI bleed with anemia and hemorrhagic shock - bleed embolized on 01/22/25, transfused 4 units red blood cells total, recurrent bleed due to hemorrhoids - OK to resume aspirin, use hydrocortisone rectal cream ischemic colitis - resolved; completed antibiotics chronic diarrhea - negative for C. difficile bilateral pleural effusion/anasarca - take furosemide 20 mg twice daily hypokalemia, hypomagnesemia - resolved DM2 with hypoglycemia - stopped Lantus acute encephalopathy due to small stroke - aspirin and atorvastatin for prevention of future strokes acute hypoxic respiratory failure due to hemorrhagic shock - resolved critical illness neuropathy - outpatient EMG acute renal failure with metabolic acidosis - resolved acute hypernatremia - resolved orthostatic hypotension - ARUN stockings urinary tract infection - completed antibiotics urinary retention - has Carrillo; voiding trial in a few days transfer to acute inpatient rehabilitation for ongoing care Plan of Treatment: as above Assessment: See Discharge Summary.
--- NOTE | 2025-02-12 11:32 | MHC.SL.SWA ---
Speech Pathologist Impression: Pt is s/p GI procedure by several days, resuming PO intake. Mild oral dysphagia d/t missing dentition at baseline. Pharyngeal swallow WFL. Risk of Aspiration Due to: Medical history Deconditioning/weakness Dysphasia Diet Status: Recommend continue w/ PUREE solids d/t pt preference/loose fitting dentures. Continue w/ THIN liquids and pills CRUSHED in puree. Liquids by controlled cup sip/controlled straw sip. Patient with severe upper extremity weakness, continues to need full assistance at all meals. INFRASTRUCTURE CONSULTANT to re-assess tomorrow to upgrade if warranted. Pt reports no difficulty w/ speech/language; recommend further evaluation of comprehension and word finding. Liquid Consistency and Strategies for Safe Swallow: Liquid Intake Recommendation: Thin Liquid Intake Strategies: Small Sips Liquids by Teaspoon Only Solid Food Consistency: Dietary Recommendations: Grnd/Mech Altered (NDD2) Additional Modifications to Solid Foods: Oral Medication Intake: Crushed with Puree Please contact the pharmacy regarding appropriate crushable or liquid drug formulations that are available whenever modified delivery is recommended. Compensatory Strategies and Precautions to be Taken for Safe Swallow: Sitting Upright (90 deg) Small Bites and Sips Rate of Ingestion Change Oral Check Supervision While Eating and Drinking for Safe Swallow: Total Assistance (1:1) Foods to Avoid: Swallowing Recommended Treatments: Compens. Strategy Educat. Recommendation for Speech: Inpatient Speech Therapy Comment: Pt seen for dysphagia treatment with transfusion aide present. Pt denied pain, endorsed mild nausea. Pt only wanted to drink water this visit. Pt tolerated consecutive sips of water by straw without overt s/s of aspiration; adequate respiratory coordination and clear voicing upon speaking. INFRASTRUCTURE CONSULTANT reviewed current diet recommendations and POC upon pt d/c to post acute rehab. Pt in agreement with current diet and continued INFRASTRUCTURE CONSULTANT intervention to address dysphagia and receptive/expressive language as further formal assessment is indicated when pt able to participate in communication interventions. Frequency/Duration: Date Range for Service Req: Timeline to reassess: Rejoiner Clinican/Clinical Fellow: No Supervisory Statement: I have reviewed and agree with the student/clinical fellow's documentation: N/A Speech Language Pathologist: Anne Crowe M.S., [facility]-INFRASTRUCTURE CONSULTANT
[2025-02-12 12:00] VITALS: PULSE 94; RESP 20; TEMP 36.3
[2025-02-12] MEDS: Aspirin 81 MG TAB.CHEW PO (12:09)
[2025-02-12 12:12] LABS: Glucose, Whole Blood 116 mg/dL (60-115)
[2025-02-12 12:14] VITALS: BP 158/78
== END 2025-02-12 15:50 | DRG 710 ==
LOC: HO.ED 16:55 → HO.EDOVER 19:20 → HO.ICU 19:28 → HO.IMC 01-25 19:27
PROVIDERS: Internal Medicine; Internal Medicine Critical Care Medicine; Internal Medicine Pulmonary Disease; Nurse Practitioner Acute Care; Nurse Practitioner Family; Physician Assistant; Physician Assistant Medical; Radiology Vascular & Interventional Radiology; Student in an Organized Health Care Education/Training Program; Admitting Provider Physician Assistant Medical; Emergency Provider Emergency Medicine; PCP Internal Medicine Geriatric Medicine; Visit Provider Family Medicine
PROC: 04LB3DZ Occlusion of Inferior Mesenteric Artery with Intraluminal Device, Percutaneous Approach (ICD-10-PCS; principal; 2025-01-22 13:10)
PROC: 0DJD8ZZ Inspection of Lower Intestinal Tract, Via Natural or Artificial Opening Endoscopic (ICD-10-PCS; CPT 45330; principal; 2025-02-10 13:30)
DX: A41.9 Sepsis, unspecified organism (principal); J96.01 Acute respiratory failure with hypoxia; I63.9 Cerebral infarction, unspecified; N17.0 Acute kidney failure with tubular necrosis; G62.81 Critical illness polyneuropathy; K55.9 Vascular disorder of intestine, unspecified; R57.8 Other shock; G92.8 Other toxic encephalopathy; R57.0 Cardiogenic shock; J81.1 Chronic pulmonary edema; E87.4 Mixed disorder of acid-base balance; D62 Acute posthemorrhagic anemia; G93.41 Metabolic encephalopathy; I95.1 Orthostatic hypotension; E87.0 Hyperosmolality and hypernatremia; R47.81 Slurred speech; E87.6 Hypokalemia; D63.1 Anemia in chronic kidney disease; R33.9 Retention of urine, unspecified; K64.8 Other hemorrhoids; N39.0 Urinary tract infection, site not specified; J90 Pleural effusion, not elsewhere classified; E11.649 Type 2 diabetes mellitus with hypoglycemia without coma; E11.22 Type 2 diabetes mellitus with diabetic chronic kidney disease; K52.9 Noninfective gastroenteritis and colitis, unspecified; F32.9 Major depressive disorder, single episode, unspecified; N18.30 Chronic kidney disease, stage 3 unspecified; E78.5 Hyperlipidemia, unspecified; Z20.822 Contact with and (suspected) exposure to COVID-19; Z87.440 Personal history of urinary (tract) infections; Z86.73 Personal history of transient ischemic attack (TIA), and cerebral infarction without residual deficits; Z79.82 Long term (current) use of aspirin; Z79.899 Other long term (current) drug therapy
CPT/HCPCS: 0241U; 36415; 36600; 37244; 70450; 70551; 71045; 71250; 74176; 74177; 74178; 78278; 80048; 80053; 80076; 80202; 81001; 82040; 82272; 82785; 82803; 82947; 83605; 83615; 83735; 83880; 84100; 84484; 84597; 85007; 85014; 85018; 85025; 85027; 85384; 85610; 85730; 86850; 86900; 86901; 86923; 87040; 87070; 87071; 87086; 87088; 87102; 87106; 87116; 87186; 87205; 87206; 87305; 87449; 87493; 87497; 87507; 87633; 88112; 88305; 89051; 92526; 92610; 93005; 93308; 94002; 94003; 94640; 94660; 94799; 97110; 97112; 97163; 97167; 97530; 99285; A9560; C1769; C1770; C1887; C1889; J0131; J0360; J0690; J1171; J1200; J1308; J1450; J1644; J1720; J1938; J2003; J2250; J2270; J2310; J2404; J2405; J2470; J2543; J2704; J2919; J3010; J3370; J3371; J3430; J3475; J3480; J7120; P9016; P9047; Q9967

== ENCOUNTER → 2025-01-15 16:23 | Outpatient (BNV) | payer MEDICAID, SELFPAY | PROVIDERS: Emergency Provider Emergency Medicine; PCP Internal Medicine Geriatric Medicine; Visit Provider Radiology Diagnostic Radiology | DX: K56.41 Fecal impaction (principal); J90 Pleural effusion, not elsewhere classified; R91.8 Other nonspecific abnormal finding of lung field | CPT/HCPCS: 71045; 71250; 74176 ==

== ENCOUNTER → 2025-01-15 16:23 | Outpatient (BNV) | payer MEDICAID, SELFPAY | PROVIDERS: Admitting Provider Physician Assistant Medical; Emergency Provider Emergency Medicine; PCP Internal Medicine Geriatric Medicine; Visit Provider Internal Medicine | DX: R06.02 Shortness of breath (principal) | CPT/HCPCS: 93010 ==

== ENCOUNTER 2025-01-15 19:12 | Outpatient (BNV) | payer MEDICAID, SELFPAY | END 2025-01-30 20:23 | PROVIDERS: Admitting Provider Physician Assistant Medical; Emergency Provider Emergency Medicine; PCP Internal Medicine Geriatric Medicine; Visit Provider Radiology Neuroradiology | DX: K63.89 Other specified diseases of intestine (principal) | CPT/HCPCS: 74177 ==

== ENCOUNTER 2025-01-15 19:12 | Outpatient (BNV) | payer MEDICAID, SELFPAY | END 2025-02-07 07:44 | PROVIDERS: Admitting Provider Physician Assistant Medical; Emergency Provider Emergency Medicine; PCP Internal Medicine Geriatric Medicine; Visit Provider Radiology Diagnostic Radiology | DX: K63.89 Other specified diseases of intestine (principal); J90 Pleural effusion, not elsewhere classified; R60.1 Generalized edema; K56.41 Fecal impaction | CPT/HCPCS: 74178 ==

== ENCOUNTER 2025-01-15 19:12 | Outpatient (BNV) | payer MEDICAID, SELFPAY | END 2025-01-18 16:13 | PROVIDERS: Admitting Provider Physician Assistant Medical; Emergency Provider Emergency Medicine; PCP Internal Medicine Geriatric Medicine; Visit Provider Nuclear Medicine | DX: Z95.9 Presence of cardiac and vascular implant and graft, unspecified (principal) | CPT/HCPCS: 71045 ==

== ENCOUNTER 2025-01-15 19:12 | Outpatient (BNV) | payer MEDICAID, SELFPAY | END 2025-01-22 13:30 | PROVIDERS: Admitting Provider Physician Assistant Medical; Emergency Provider Emergency Medicine; PCP Internal Medicine Geriatric Medicine; Visit Provider Radiology Vascular & Interventional Radiology | DX: J96.01 Acute respiratory failure with hypoxia (principal); K92.2 Gastrointestinal hemorrhage, unspecified; Z99.11 Dependence on respirator [ventilator] status | CPT/HCPCS: 36245; 36247; 36248; 37244; 76937 ==

== ENCOUNTER 2025-01-15 19:12 | Outpatient (BNV) | payer MEDICAID, SELFPAY | END 2025-01-27 04:25 | PROVIDERS: Admitting Provider Physician Assistant Medical; Emergency Provider Emergency Medicine; PCP Internal Medicine Geriatric Medicine; Visit Provider Radiology Diagnostic Radiology | DX: R47.81 Slurred speech (principal) | CPT/HCPCS: 70450 ==

== ENCOUNTER 2025-01-15 19:12 | Outpatient (BNV) | payer MEDICAID, SELFPAY | END 2025-01-20 05:00 | PROVIDERS: Admitting Provider Physician Assistant Medical; Emergency Provider Emergency Medicine; PCP Internal Medicine Geriatric Medicine; Visit Provider Radiology Diagnostic Radiology | DX: G93.40 Encephalopathy, unspecified (principal); R09.02 Hypoxemia | CPT/HCPCS: 70551; 71045 ==

== ENCOUNTER 2025-01-15 19:12 | Outpatient (BNV) | payer MEDICAID, SELFPAY | END 2025-01-16 06:50 | PROVIDERS: Admitting Provider Physician Assistant Medical; Emergency Provider Emergency Medicine; PCP Internal Medicine Geriatric Medicine; Visit Provider Radiology Vascular & Interventional Radiology | DX: I51.7 Cardiomegaly (principal) | CPT/HCPCS: 71045 ==

== ENCOUNTER 2025-01-15 19:12 | Outpatient (BNV) | payer MEDICAID, SELFPAY | END 2025-01-21 09:45 | PROVIDERS: Admitting Provider Physician Assistant Medical; Emergency Provider Emergency Medicine; PCP Internal Medicine Geriatric Medicine; Visit Provider Radiology Diagnostic Radiology | DX: K92.2 Gastrointestinal hemorrhage, unspecified (principal) | CPT/HCPCS: 78278 ==

== ENCOUNTER 2025-01-15 19:12 | Outpatient (BNV) | payer MEDICAID, SELFPAY | END 2025-01-17 07:00 | PROVIDERS: Admitting Provider Physician Assistant Medical; Emergency Provider Emergency Medicine; PCP Internal Medicine Geriatric Medicine; Visit Provider Internal Medicine | DX: I36.1 Nonrheumatic tricuspid (valve) insufficiency (principal); Z99.11 Dependence on respirator [ventilator] status; J81.0 Acute pulmonary edema | CPT/HCPCS: 93308 ==

== ENCOUNTER → 2025-01-15 19:12 | Outpatient (BNV) | payer MEDICAID, SELFPAY | PROVIDERS: Admitting Provider Physician Assistant Medical; Emergency Provider Emergency Medicine; PCP Internal Medicine Geriatric Medicine; Visit Provider Psychiatry & Neurology Neurology | DX: G62.81 Critical illness polyneuropathy (principal) | CPT/HCPCS: 99222 ==

== ENCOUNTER → 2025-01-15 19:12 | Outpatient (BNV) | payer MEDICAID, SELFPAY | PROVIDERS: Admitting Provider Physician Assistant Medical; Emergency Provider Emergency Medicine; PCP Internal Medicine Geriatric Medicine; Visit Provider Internal Medicine | DX: D62 Acute posthemorrhagic anemia (principal); K92.2 Gastrointestinal hemorrhage, unspecified | CPT/HCPCS: 99222; 99499 ==

== ENCOUNTER → 2025-01-15 19:12 | Outpatient (BNV) | payer MEDICAID, SELFPAY | PROVIDERS: Admitting Provider Physician Assistant Medical; Emergency Provider Emergency Medicine; PCP Internal Medicine Geriatric Medicine; Visit Provider Physician Assistant Medical | DX: J96.01 Acute respiratory failure with hypoxia (principal); E11.21 Type 2 diabetes mellitus with diabetic nephropathy; Z79.4 Long term (current) use of insulin; I95.1 Orthostatic hypotension; F32.9 Major depressive disorder, single episode, unspecified | CPT/HCPCS: 31500; 99291 ==

== ENCOUNTER → 2025-01-15 19:12 | Outpatient (BNV) | payer MEDICAID, SELFPAY | PROVIDERS: Admitting Provider Physician Assistant Medical; Emergency Provider Emergency Medicine; PCP Internal Medicine Geriatric Medicine; Visit Provider Nurse Practitioner Family | DX: E87.20 Acidosis, unspecified (principal); E87.6 Hypokalemia | CPT/HCPCS: 99222 ==

== ENCOUNTER → 2025-01-15 19:12 | Outpatient (BNV) | payer MEDICAID, SELFPAY | PROVIDERS: Admitting Provider Physician Assistant Medical; Emergency Provider Emergency Medicine; PCP Internal Medicine Geriatric Medicine; Visit Provider Surgery | DX: K92.2 Gastrointestinal hemorrhage, unspecified (principal) | CPT/HCPCS: 99232; 99499 ==

== ENCOUNTER → 2025-01-15 19:12 | Outpatient (BNV) | payer MEDICAID, SELFPAY | PROVIDERS: Admitting Provider Physician Assistant Medical; Emergency Provider Emergency Medicine; PCP Internal Medicine Geriatric Medicine; Visit Provider Internal Medicine Pulmonary Disease | DX: J96.01 Acute respiratory failure with hypoxia (principal); K92.2 Gastrointestinal hemorrhage, unspecified; D62 Acute posthemorrhagic anemia; R57.8 Other shock; I63.9 Cerebral infarction, unspecified | CPT/HCPCS: 99291 ==

== ENCOUNTER → 2025-01-15 19:12 | Outpatient (BNV) | payer MEDICAID, SELFPAY | PROVIDERS: Admitting Provider Physician Assistant Medical; Emergency Provider Emergency Medicine; PCP Internal Medicine Geriatric Medicine; Visit Provider Student in an Organized Health Care Education/Training Program | DX: E87.6 Hypokalemia (principal); I63.9 Cerebral infarction, unspecified; R57.8 Other shock; D62 Acute posthemorrhagic anemia; K92.2 Gastrointestinal hemorrhage, unspecified | CPT/HCPCS: 99232; 99233; 99499 ==

== ENCOUNTER 2025-03-13 10:44 | Outpatient (REF) | payer MEDICAID, SELFPAY ==
--- OUTSIDE RECORDS SUMMARY | 2025-03-13 11:34 | XMS_ITS | Encounter Summary ---
Author Organization [employer] Address [address] [facility] [address] [place] [address] Care Team Providers Care Plastic Parts Designer Name Role Phone Name, Nolan PADILLA Primary Care Provider [phone] Encounter Details Date Type Department Care Team (Latest Contact Info) Description 09/07/2020 Abstract [facility] CONVERSIONS Dental, Provider, DDS Social History [...] Care Team (Late st Contact Info) Description 03/21/2025 10:00 AM EDT Telemedicine [facility] MEDICINE [address] [place] [phone] 06/11/2025 11:30 AM EDT Office Visit [facility] [address] [place] [id number] Nolan Blevins MD [address] [place] [phone] documented as of this encounter Visit Diagnoses Not on filedocumented in this encounter Care Teams Plastic Parts Designer Relationship Specialty Start Date End Date Nolan Blevins MD [address] [place] [id number] PCP - General Family Medicine 06/13/18 documented as of this encounter
[2025-03-13 13:14] LABS: MANUAL DIFF FLAG NO
[2025-03-13 13:28] LABS: Hematocrit 22.4 % (37.0-47.0); Hemoglobin 7.1 g/dl (12.0-16.0); Imm Gran Abs Auto 0.04 X10*3/uL (0.00-0.03); Imm Gran Pct Auto 0.4 % (0.0-0.4); Lymphocytes Absolute Auto 3.1 X10*3/uL (1.2-4.9); Mean Corpuscular HGB Conc 31.7 g/dl (31.0-35.0); Mean Corpuscular Hemoglobin 28.9 pg (27.0-33.0); Mean Corpuscular Volume 91.1 fL (80.0-98.0); NRBC Abs Auto 0.000 X10*3/uL (0.0-0.012); NRBC Pct Auto 0.0 /100WBC (0.0-0.2); Platelet Count 622 X10*3/uL (160-400); Red Blood Count 2.46 X10*6/uL (4.20-5.50); White Blood Count 8.9 X10*3/uL (4.8-10.8)
[2025-03-13 13:54] LABS: Alanine Aminotransferase 7 U/L (0-31); Albumin Level 2.0 g/dL (3.5-5.0); Alkaline Phosphatase 168 U/L (39-117); Anion Gap 10 (12-20); Aspartate Amino Transferase 25 U/L (5-31); Blood Urea Nitrogen 18 mg/dL (9-16); Calcium 7.2 mg/dL (8.4-10.2); Carbon Dioxide 26 mmol/L (22-29); Chloride 103 mmol/L (96-108); Estimated Glomerular Filt Rate > 60; Iron 41 mcg/dL (30-160); Percent Iron Saturation 51 % (15-50); Potassium 3.0 mmol/L (3.3-5.1); Sodium 136 mmol/L (135-145); Total Iron Binding Capacity 81 mcg/dL (228-428); Total Protein 5.1 g/dL (6.5-8.0); Unsaturated Iron Binding 40 ug/dL
[2025-03-13 13:58] LABS: Ferritin 1060 ng/mL (10-250)
== END 2025-03-13 10:45 | disposition home or self-care (01) ==
LOC: HO.HHCL 10:44
PROVIDERS: PCP Internal Medicine Geriatric Medicine; Visit Provider Internal Medicine Geriatric Medicine
DX: N18.30 Chronic kidney disease, stage 3 unspecified (principal); D64.9 Anemia, unspecified; R03.1 Nonspecific low blood-pressure reading; E11.69 Type 2 diabetes mellitus with other specified complication; Z79.4 Long term (current) use of insulin
CPT/HCPCS: 36415; 80053; 82728; 83540; 85025

== ENCOUNTER 2025-03-18 17:28 | Outpatient (REF) | payer MEDICAID, SELFPAY ==
--- OUTSIDE RECORDS SUMMARY | 2025-03-18 14:00 | XMS_ITS | Encounter Summary ---
Author Organization [employer] Address [address] [facility] [address] [place] [address] Care Team Providers Care Critical Care Nurse Name Role Phone Name, Nolan PADILLA Primary Care Provider [phone] Reason for Visit * Reason Comments Leg Swelling Encounter Details Date Type Department Care Team ([facility] st Contact Info) Description 03/18/2025 2:00 PM EDT Office Visit [facility] [address] [place] [address] [phone] Edith Flores MD [address] [place], [place] [phone] UTI symptoms; Lower extremity edema; Hypokalemia Social History Tobacco Use Types Packs/Day Years Used Date Smoking Tobacco: Former Cigarettes Passive Smoke Exposure: Past Smokeless Tobacco: Never Alcohol Use Standard Drinks/Week Comments Never 0 (1 standard drink = 0.6 oz pur e alcohol) Depression Answer Date Recorded Patient Health Questionnaire-9 Score 7 04/18/2023 Housing Stability Answer Date Recorded What is your housing situation today? I have housing today, but I am worried about losing housing in the future 03/03/[address] you li ve. Do you have problems with any of the following? None of the above 03/03/2025 Food Insecurity Answer Date Recorded Within the past 12 months, y ou worried that your food would run out before you got money to buy more: Often true 03/03/2025 Within the past 12 months,th e food you bought just didn't last and you didn't have enough money to get more: Often true Transportation Answer Date Recorded In the past 12 months, has l ack of transportation kept you from medical appts, meetings, work or from getting things needed for daily living? No 03/03/2025 Utilities Answer Date Recorded In the past 12 months, has t he electric, gas, oil or water company threatened to shut off services in your home? No 03/03/2025 Depression Answer Date Recorded Patient Health Questionnaire-2 Score 2 04/18/2023 Internet Access Answer Date Recorded Internet Access Q1 Yes 03/03/2025 Internet Access Q2 Not on file 03/03/2025 Comments Unknown Sex and Gender Information Value Date Recorded Sex Assigned at Female 07/11/2022 10:18 AM EDT Legal Sex Female 10:18 AM EDT Gender Identity Female 07/11/2022 10:18 AM EDT Sexual Orientation Straight 07/11/2022 10 :18 AM EDT documented as of this encounter Last Filed Vital Signs Vital Sign Reading Time Taken Comments Blood Pressure 109/69 03/18/2025 2:08 PM EDT Pulse 100 03/18/2025 2:08 PM EDT Temperature 36.7 C (98.1 F) 03/18/2025 2:08 PM EDT Respiratory Rate 16 03/18/2025 2:08 PM EDT Oxygen Saturation 99% 03/18/2025 2:08 PM EDT Inhaled Oxygen Concentration - - Weight 49.9 kg (110 lb) 03/18/2025 2:08 PM EDT Height - - Body Mass Index 20.12 03/13/2025 10:15 AM EDT documented in this encounter Progress Notes * Edith Man MD - 03/18/2025 2:00 PM EDT SUBJECTIVE: Rita Raza is a 59 y.o. year old female who presents for swollen feet . Acute Concerns: Bilateral swelling of the legs Urine mal odor, dysuria, urinary frequency and urgency Social History Social History Narrative Not on file Problem List[1] Cobalamin deficiency Dysphagia Migraine Mood disorder (CMS/HCC) Noncompliance with treatment Major depressive disorder, recurrent episode, mild (CMS/HCC) Swallowing painful Type 2 diabetes mellitus (CMS/HCC) Vitamin D deficiency UMANG (generalized anxiety disorder) Diabetic polyneuropathy associated with type 2 diabetes mellitus (CMS/HCC) Auditory hallucination Proteinuria due to type 2 diabetes mellitus (CMS/HCC) (CMS/HCC) Adult failure to thrive CKD (chronic kidney disease) Poorly controlled diabetes mellitus ([facility]) Hypotension Depression Cerebrovascular accident (CVA) ([facility]) UTI symptoms Lower extremity edema Hypokalemia Family History[2] Review of Systems Constitutional: Negative. HENT: Negative. Respiratory: Negative. Cardiovascular: Positive for leg swelling. Negative for chest pain and palpitations. Genitourinary: Positive for dysuria, frequency, pelvic pain and urgency. Negative for difficulty urinating, dyspareunia, enuresis, flank pain, genital sores, hematuria and menstrual problem. OBJECTIVE: Vitals: 03/18/25 1408 BP: 109/69 BP Location: Right arm Patient Position: Sitting BP Cuff Size: Adult Pulse: 100 Resp: 16 Temp: 98.1 ??F (36.7 ??C) TempSrc: Temporal SpO2: 99% Weight: 110 lb (49.9 kg) Physical Exam Constitutional: Appearance: Normal appearance. Cardiovascular: Rate and Rhythm: Normal rate and regular rhythm. Pulmonary: Effort: Pulmonary effort is normal. Breath sounds: Normal breath sounds. Abdominal: General: Abdomen is flat. Palpations: Abdomen is soft. Tenderness: There is abdominal tenderness in the suprapubic area. Musculoskeletal: Right lower le+ Edema present. Left lower le+ Edema present. Neurological: Mental Status: She is alert. Follow Up: No follow-ups on file. Medications Ordered Prior to Encounter[3] Problem List Items Addressed This Visit UTI symptoms Relevant Medications nitrofurantoin, macrocrystal-monohydrate, (Macrobid) 100 MG capsule potassium chloride CR (Klor-Con M10) 10 MEQ ER tablet Other Relevant Orders Urinalysis, Complete, with Reflex to Culture Lower extremity edema I restarted again her Lasix 20 mg daily Follow-up with nurse and PCP Relevant Medications furosemide (Lasix) 20 MG tablet Hypokalemia Patient has not started her potassium and in light that I had to start her again on furosemide 20 mg I decided to go up to 20 mEq of potassium daily instead of 10 and to recheck her potassium in about 1 week Relevant Medications potassium chloride CR (Klor-Con M10) 10 MEQ ER tablet [1] Patient Active Problem List Diagnosis Cobalamin deficiency Dysphagia Migraine Mood disorder ([facility]) Noncompliance with treatment Major depressive disorder, recurrent episode, mild (CMS/HCC) Swallowing painful Type 2 diabetes mellitus (CMS/HCC) Vitamin D deficiency UMANG (generalized anxiety disorder) Diabetic polyneuropathy associated with type 2 diabetes mellitus (CMS/HCC) Auditory hallucination Proteinuria due to type 2 diabetes mellitus (CMS/HCC) (CMS/HCC) Adult failure to thrive CKD (chronic kidney disease) Poorly controlled diabetes mellitus (CMS/HCC) Hypotension Depression Cerebrovascular accident (CVA) (CMS/HCC) UTI symptoms Lower extremity edema Hypokalemia [2] No family history on file. [3] Current Outpatient Medications on File Prior to Visit Medication Sig Dispense Refill Alcohol Swabs (Alcohol Prep) 70 % pads USE DIRECTED THREE TIMES DAILY 100 each 11 Ascorbic Acid (vitamin C) 250 MG tablet Take 250 mg by mouth Once per day. aspirin (Aspirin Adult Low Strength) 81 MG EC tablet Take 1 tablet (81 mg) by mouth in the morning.90 tablet 3 atorvastatin (Lipitor) 40 MG tablet Take 40 mg by mouth at bedtime. benztropine (Cogentin) 0.5 MG tablet TAKE 1 TABLET BY MOUTH TWICE DAILY IN THE MORNING AND IN THE EVENING 60 tablet 1 Blood Pressure kit Use once a day 1 kit 0 btetxgcsav-vuqzwbkimncoa-jnzrbgax 50-325-40 MG tablet TAKE 1 TABLET BY MOUTH EVERY 8 HOURS NEEDED. DO NOT EXCEED 3 TABLETS IN 24 HOURS. DO NOT USE MORE THAN 2-3 TIMES PER WEEK docusate sodium (Colace) 100 MG capsule (Patient not taking: Reported on 03/07/2025) ergocalciferol (Vitamin D2) 1.25 MG (92578 UT) capsule TAKE 1 CAPSULE BY MOUTH ONCE WEEKLY ON MONDAY MORNING (Patient not taking: Reported on 03/07/2025) 4 capsule 11 esomeprazole (NexIUM) [address] capsule Take 40 mg by mouth in the morning. famotidine (Pepcid) 20 MG tablet Take 20 mg by mouth at bedtime. FLUoxetine (PROzac) 10 MG capsule TAKE 1 CAPSULE BY MOUTH EVERY MORNING 30 capsule 1 fluticasone (Flonase) 50 MCG/ACT nasal spray INHALE 2 SPRAYS IN EACH NOSTRIL ONCE DAILY 48 g 1 folic acid (Folvite) 1 MG tablet Take 1,000 mcg by mouth in the morning. FREESTYLE LITE test strip TEST BLOOD SUGAR ONCE DAILY 50 strip 11 gabapentin (Neurontin) 100 MG capsule TAKE 1 CAPSULE BY MOUTH AT BEDTIME 30 capsule 1 haloperidol (Haldol) 5 MG tablet TAKE 1 TABLET BY MOUTH TWICE DAILY IN THE MORNING AND AT BEDTIME 60 tablet 1 HM Nicotine 14 MG/24HR patch APPLY 1 PATCH TOPICALLY TO THE SKIN DAILY IN THE MORNING THEN REMOVE AT BEDTIME DIRECTED. DO NOT SMOKE WHILE USING PATCH (Patient not taking: Reported on 03/03/2025) hydrocortisone (Anusol-HC) 2.5 % rectal cream Insert 1 Application into the rectum in the morning. hydrOXYzine HCl (Atarax) 25 MG tablet Take 1 tablet (25 mg) by mouth every 8 (eight) hours if needed for itching or anxiety. (Patient not taking: Reported on 03/07/2025) 90 tablet 0 insulin pen needle (Easy Touch Pen [place]) 31G x 6 mm misc USE DIRECTED 100 each 3 Lantus SoloStar 100 UNIT/ML pen Inject 10 Units under the skin at bedtime. 3 mL 11 melatonin 3 MG tablet Take 3 mg by mouth if needed at bedtime for sleep. mirtazapine (Remeron) 7.5 MG tablet TAKE 1 TABLET BY MOUTH AT BEDTIME 30 tablet 1 ondansetron ODT (Zofran-ODT) 4 MG disintegrating tablet Take 1 tablet by mouth every 6 (six) hours if needed for nausea. senna (Senokot) 8.6 MG tablet Take 2 tablets by mouth at bedtime. Spiriva Respimat 1.25 MCG/ACT inhaler Inhale 2 puffs Once per day. SUMAtriptan (Imitrex) 50 MG tablet thiamine (Vitamin B-1) 100 MG tablet Take 100 mg by mouth in the morning. TRUEplus Lancets 33G [facility] USE DIRECTED TO TEST BLOOD SUGAR EVERY DAY 100 each 11 zinc 220 (50 Zn) MG capsule Take 1 capsule by mouth Once per day. [DISCONTINUED] furosemide (Lasix) 20 MG tablet Take 1 tablet by mouth Once per day. [DISCONTINUED] Insulin Lispro 100 UNIT/ML solution Inject 2-10 Units under the skin 3 times daily. Before meals per sliding scale: 200-249 2 units, 250-299 4 units, 300-249 6 units, 350-399 8 units, 400-449 10 units. Call if <70 or >400 [DISCONTINUED] Lantus SoloStar 100 UNIT/ML pen Inject 30 Units under the skin at bedtime. Decrease to 20 units once she starts on Trulicity 3 mL 11 [DISCONTINUED] metoprolol tartrate (Lopressor) 25 MG tablet Take 0.5 tablets by mouth 2 times daily. [DISCONTINUED] pen needle 31G x 6 mm [facility] USE DIRECTED TO INJECT INSULIN 100 each 1 [DISCONTINUED] potassium chloride CR (Klor-Con M10) 10 MEQ ER tablet Take 1 tablet (10 mEq) by mouth Once per day for 7 days. Do not crush or chew. 7 tablet 0 [DISCONTINUED] Trulicity 0.75 MG/0.5ML solution auto-injector INJECT ONE PEN (=0.75MG) SUBCUTANEOUSLY ONCE A WEEK DIRECTED (Patient not taking: Reported on 03/07/2025) 2 mL 2 No current facility-administered medications on file prior to visit. documented in this encounter Miscellaneous Notes * Assessment & Plan Note - Edith Man MD - 03/18/2025 4:34 PM EDT Associated Problem(s): Lower extremity edema I restarted again her Lasix 20 mg daily Follow-up with nurse and PCP * Assessment & Plan Note - Edith Man MD - 03/18/2025 4:34 PM EDT Associated Problem(s): Hypokalemia Patient has not started her potassium and in light that I had to start her again on furosemide 20 mg I decided to go up to 20 mEq of potassium daily instead of 10 and to recheck her potassium in about 1 week documented in this encounter Plan of Treatment Upcoming Encounters Date Type Department Care Team (Late st Contact Info) Description 03/21/2025 10:00 AM EDT Telemedicine [facility] [address] [place] [phone] 06/11/2025 11:30 AM EDT Office Visit [facility] [address] [place] [address] [place] [address] Name, MD Nolan [address] [place] [address] Scheduled Orders Name Type Priority Associated Diagnoses Orde r Schedule Urinalysis, Complete, with Reflex to Culture Lab Routine UTI symptoms Expected: 03/18/2025 (Approximate), Expires: 03/18/2026 documented as of this encounter Visit Diagnoses Diagnosis UTI symptoms Lower extremity edema Edema Hypokalemia Hypopotassemia documented in this encounter Additional Health Concerns Assessment Noted Time PHQ-9 Depression Total Score: 7 04/18/20 23 10:20 AM EDT documented as of this encounter Care Teams Critical Care Nurse Relationship Specialty Start Date End Date Name, MD Nolan [address] [place] [phone] PCP - General Family Medicine 06/13/18 documented as of this encounter
[2025-03-18 17:40] LABS: Appearance Urine Cloudy; Glucose Urine UA Negative (Negative); PH 7.5 (5.0-9.0); Specific Gravity - Urine 1.010 (1.005-1.025); UMIC TRIGGER UACC YES
[2025-03-18 17:43] LABS: UACC Culture Trigger YES
== END 2025-03-18 17:29 | disposition home or self-care (01) ==
LOC: HO.HHCLNP 17:28
PROVIDERS: Visit Provider Internal Medicine
DX: R39.9 Unspecified symptoms and signs involving the genitourinary system (principal)
CPT/HCPCS: 81001; 87086; 87088; 87186

== ENCOUNTER 2025-03-26 13:14 | Emergency (ER) | payer MEDICAID, SELFPAY ==
--- NOTE | ~2025-03-26 | US_ITS ---
EXAMINATION: US TRIPLEX LOWER EXTREMITY, LEFT CLINICAL INFORMATION: Left calf pain. COMPARISON: None available. TECHNIQUE: Color-flow triplex imaging with spectral analysis and compression Doppler were performed on the left lower extremity. FINDINGS: Respiratory variation, normal compression and augmented flow are noted throughout the left lower extremity. The visualized common femoral vein, superficial femoral vein, profunda femoral vein, popliteal vein and midcalf peroneal and posterior tibial venous segments show no evidence of deep venous thrombosis. There is no Escamilla's cyst. US/US venous duplex LE LT IMPRESSION: No evidence of deep venous thrombosis involving the left lower extremity. Electronically signed by: Sujit Calhoun MD 03/26/2025 04:27 PM EDT
[2025-03-26 13:28] VITALS: BP 121/70; PULSE 113; RESP 16; TEMP 36.4; O2SAT 97; BMI 19.5
--- NOTE | 2025-03-26 13:30 | ED.GENADULT ---
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 Pt describes numbness and tingling of the LLE and states the leg feels hot. The pain is constant. She states the pain started since her discharge from the hospital on 02/12/25. She has not taken medication for the pain. Pain is increased on movement of the foot. She has had difficulty obtaining PT since discharge. She is currently living in an apartment with her daughter. No pain to the right lower extremity. Denies fever, headaches, dizziness, chest pain, SOB. She is not on anticoagulation. No other complaints or concerns at this time. MD complaint: Calf pain Relieving factors: none Exacerbating factors: none Associated symptoms: denies other symptoms Treatments prior to arrival: none Related Data Home Medications ?Medication ?Instructions ?Recorded ?Confirmed aspirin 81 mg tablet,delayed 81 mg PO DAILY 04/21/22 01/15/25 release benztropine 0.5 mg tablet 0.5 mg PO BID 04/21/22 01/15/25 insulin syringe-needle U-100 0.5 #10 ea 04/21/22 12/26/24 mL 30 gauge x 1/2 (UltiCare) haloperidol 5 mg tablet 1 tab PO BID 05/06/22 01/15/25 gabapentin 100 mg capsule 100 mg PO BEDTIME 05/30/24 01/15/25 blood sugar diagnostic (FreeStyle #10 ea 12/04/24 12/26/24 Lite Strips) lancets 33 gauge (TRUEplus Lancets) #100 ea 12/04/24 12/26/24 pen needle, diabetic 31 gauge x #100 ea 12/04/24 12/26/24/ (Easy Touch) esomeprazole magnesium 40 mg 40 mg PO DAILY@0630 12/30/24 01/15/25 capsule,delayed release (Nexium) Previous Rx's ?Medication ?Instructions ?Recorded pen needle, diabetic 32 gauge x #100 ea 05/23/2311/24 famotidine 20 mg tablet (Pepcid) 20 mg PO BEDTIME #30 tabs 12/04/24 loperamide 2 mg capsule 2 mg PO Q2H PRN Diarrhea #30 caps 01/10/25 ascorbic acid (vitamin C) 250 mg 250 mg PO DAILY #30 tabs 02/12/25 tablet atorvastatin 40 mg tablet 40 mg PO BEDTIME #30 tabs 02/12/25 folic acid 1 mg tablet 1 mg PO DAILY #30 tabs 02/12/25 furosemide 20 mg tablet 20 mg PO BID@0900,1800 #60 tabs 02/12/25 hydrocortisone 2.5 % topical cream 1 appl GA BEDTIME #30 grams 02/12/25 with perineal applicator (Proctozone-HC) insulin lispro 100 unit/mL See Protocol subcut QIDACHS #1 mL 02/12/25 subcutaneous solution (Admelog U-100 Insulin lispro) nystatin 100,000 unit/gram topical 1 appl topical TID #30 grams 02/12/25 powder (Nyamyc) potassium chloride 20 mEq oral 40 meq PO BID #60 ea 02/12/25 packet thiamine mononitrate (vit B1) 100 100 mg PO DAILY #30 tabs 02/12/25 mg tablet zinc sulfate 50 mg zinc (220 mg) 220 mg (4.4 x 50 mg zinc (220 mg)) 02/12/25 capsule (Zinc-220) PO DAILY #30 caps acetaminophen 650 mg 650 mg PO Q8H PRN pain #30 tabs 03/26/25 tablet,extended release (Tylenol 8 Hour) magnesium oxide 400 mg PO BEDTIME #3 tabs 03/26/25 Allergies Allergy/AdvReac Type Severity Reaction Status Date / Time iron Allergy Mild Difficulty Verified 03/26/25 13:32 Breathing Iodinated Contrast Media (IV Allergy Unknown UNKNOWN Verified 03/26/25 13:32 Dye, Iodine Containing) iodine (IODINE) Allergy Unknown RASH Verified 03/26/25 13:32 seafood Allergy Unknown Unknown Verified 03/26/25 13:32 Review of Systems Review of Systems: Yes all other systems are reviewed and are negative Constitutional: Constitutional: Reports as per [facility] Past Medical History Medical History (Updated 03/26/25 @ 17:04 by ALIYAH Santiago) Orthostatic hypotension Colitis Poorly controlled diabetes mellitus Esophagitis Nausea & vomiting Diabetes Blood per rectum Pneumatosis of intestines Dysphagia Anxiety disorder GERD (gastroesophageal reflux disease) Migraines Asthma On beta jordyn at home Elevated cholesterol HTN (hypertension) Smoker Diabetes Depression Heartburn Surgical History Hx of left knee surgery History of tubal ligation History of esophagogastroduodenoscopy (EGD) H/O colonoscopy Hx of cholecystectomy Social History Social History Household Members: Children Household Members Other:: Daughter Housing: Apartment Housing Other:: pt states she lives in an apartment at her daughter's house Do you presently have visiting nurse or other home services: Yes (Daughter is [employer] WORK[employer]) Alcohol intake: former Comment: 1:1 sitter Patient Tobacco Use Status: Never used Tobacco Tobacco use type: Cigarette Cigarette Packs Per Day: 1 Cigarettes Per Day: 20.0 Years Smoked: 15 e-Cigarette/Vaping Use: Never Used Second Hand Smoke Exposure: Yes Advance Directives: No Advance Directives Information Provided: Yes Do you have a plan to hurt others: No Plan service: No Current occupational status: disabled Physical Exam ED Vital Signs: Vital Signs - 24 hr 03/26/25 13:28 03/26/25 14:25 03/26/25 16:30 Temperature 97.6 F 98.2 F 98.0 F Pulse Rate 113 H 102 H 93 Respiratory Rate 16 18 16 Blood Pressure 121/70 120/73 146/79 H Pulse Oximetry 97 98 98 Oxygen Delivery Method Room Air Room Air Room Air BMI result Body Mass Index 19.5 Const General: cooperative, comfortable and no acute distress Orientation/consciousness: patient oriented x3 Limitations: no limitations HENMT Head: Yes normal to inspection, Yes normocephalic and Yes atraumatic Ears: hearing grossly normal bilaterally General nose exam: Normal external nose present Face and sinus: Yes normal facial exam Mouth: Normal oral and palatal mucosa present, oropharynx normal and moist mucous membranes Throat: Yes posterior oropharynx normal Eyes General: appearance normal, both eyes and all related structures Eyelids: Yes eyelids normal Conjunctivae: conjunctivae normal Sclerae: sclerae normal Pupils: Equal, round and reactive pupils present EOM: EOMs intact bilaterally Neck Neck: Yes normal visual inspection, Yes full ROM and Yes no lymphadenopathy Lymphatic: no lymphadenopathy noted Chest Chest palpation & inspection: normal inspection of the chest Resp Effort & Inspection: normal respiratory effort and able to speak in complete sentences Auscultation: clear to auscultation bilaterally, no crackles, no rales, no rhonchi and no wheezes Cardio Rate: regular rate Rhythm: regular rhythm Heart sounds: S1 normal heart sound present and S2 normal heart sound present GI Inspection: Yes normal to inspection Skin General skin exam: no rashes or lesions noted Trauma: no lacerations or abrasions Wounds: no wounds Neuro General: patient oriented x3 and moves all extremities Cranial nerves: Yes Equal, round and reactive pupils present Extrem Other: Left calf with tenderness palpation, no palpable cords. No overlying erythema. Strong DP pulse, able to flex and extend at the knee without difficulty. General: Yes normal to inspection Right upper extremity: normal to inspection Left upper extremity: normal to inspection Right lower extremity: normal to inspection Left lower extremity: normal to inspection Course Course Course Narrative: 03/26/25 1330 ALIYAH Cabello This is a Rapid Medical Examination (RME) performed by Josue Britt PA-C in triage. Full HPI, ROS, assessment and treatment plan per primary provider in the Main ED. Hx: 59 yo F here w/ daughter for eval of LLE pain since CVA on 01/15/25. no change in symptoms, she is just unable to sleep at night d/t pain. she has not trialed any OTC pain meds for this. she requires aid w/ ADLs at home d/t deficits from CVA. Plan: labs, will defer imaging to primary provider. Medications Administered Discontinued Medications Generic Name Dose Route Start Last Admin Trade Name Freq PRN Reason Stop Dose Admin Acetaminophen 650 mg 03/26/25 16:39 03/26/25 16:51 Acetaminophen 325 Mg Tablet PO 03/26/25 16:40 650 mg ONCE ONE Administration Magnesium Oxide 400 mg 03/26/25 17:02 03/26/25 17:47 Magnesium Oxide 400 Mg Tablet PO 03/26/25 17:03 400 mg ONCE ONE Administration Medical Decision Making Medical Decision Making [facility] Narrative: Pt is a 59 y/o female with pmhx of CKD stage 3, Diabetes, neuropathy, prior CVA, HTN, HLD, asthma, anxiety, and depression who presents to the ED with concern of left calf pain. On arrival, patient was tachycardic at 1:13 a.m., afebrile, repeat vitals reveal that she is no longer tachycardic, afebrile, blood pressure within normal limits. Patient does have tenderness palpation along the left calf given recent hospitalization, will obtain ultrasound to rule out DVT. She has no chest pain or shortness for breath. She does not take any medications for her pain. Will medicate with Tylenol. Ultrasound returns, unremarkable for DVT. Labs were obtained prior to my evaluation, she has no leukocytosis, she does have a normocytic anemia with an H&H of 7.8/24.0, no bloody or black stool, no hemoptysis. Patient has a history of anemia, improved since her last visit. Chemistry revealing hyperglycemia 336, point of care was obtained at bedside in his to 94, she does have low magnesium at 1.5, given supplemental magnesium orally here in the emergency department. I discussed with patient as well as family at bedside that it would be in her best interest to be re-evaluated by Physical therapy. Family reports that after her discharge here from the hospital, she went to a rehab, after rehab she was supposed to have physical therapy set up for her however they have had a difficult time setting this up. I discussed with family that given that she has not been ambulatory due to stroke and not receiving physical therapy, she may need more demands for physical therapy, and may need to be re-evaluated. I expressed that it would be in her best interest to stay overnight here in the emergency department to be re-evaluated. Patient does not want to stay, family reports that they will follow-up outpatient. She was given strict return precautions. Patient is feeling well to be discharged home. Patient stable for discharge. Differential Diagnosis Differential Diagnoses: The differential diagnosis associated with the presentation includes Calf strain, electrolyte derangement, muscle spasm, contusion Lab Data [facility] Lab Attestation statement: I reviewed the patient's lab results. See MDM and course 03/26/25 13:48 03/26/25 13:48 Labs: Lab Results 03/26/25 03/26/25 Range/Units 13:48 17:16 WBC 6.0 (4.8-10.8) X10*3/uL RBC 2.54 L (4.20-5.50) X10*6/uL Hgb 7.8 L (12.0-16.0) g/dl Hct 24.0 L (37.0-47.0) % MCV 94.5 (80.0-98.0) fL MCH 30.7 (27.0-33.0) pg MCHC 32.5 (31.0-35.0) g/dl RDW 16.2 H (11.0-16.0) % Plt Count 401 H D (160-400) X10*3/uL MPV 8.2 L (9.4-12.3) fL Immature Gran % (Auto) 0.5 H (0.0-0.4) % Neut % (Auto) 45.2 (45-73) % Lymph % (Auto) 44.9 H (20-40) % [place] % (Auto) 7.4 (2-11) % Eos % (Auto) 1.5 (0-4) % Baso % (Auto) 0.5 (0-2) % Lymph # (Auto) 2.7 (1.2-4.9) X10*3/uL [place] # (Auto) 0.4 (0.1-1.2) X10*3/uL Eos # (Auto) 0.1 (0.0-0.4) X10*3/uL Baso # (Auto) 0.0 (0.0-0.2) X10*3/uL Abs Immat Gran (auto) 0.03 (0.00-0.03) X10*3/uL Absolute Neuts (auto) 2.7 (2.0-8.3) x10*3/uL Absolute Nucleated RBC 0.000 (0.0-0.012) X10*3/uL Nucleated RBC % (auto) 0.0 (0.0-0.2) /100WBC Sodium 136 (135-145) mmol/L Potassium 4.2 D (3.3-5.1) mmol/L Chloride 105 (96-108) mmol/L Carbon Dioxide 26 (22-29) mmol/L Anion Gap 9 L (12-20) BUN 16 (9-16) mg/dL Creatinine 0.74 (0.5-1.4) mg/dL Estim Creat Clear Calc 62.8 Estimated GFR > 60 POC Glucose 294 H (60-115) mg/dL Random Glucose 336 H (60-115) mg/dL Calcium 8.2 L D (8.4-10.2) mg/dL Magnesium 1.5 L (1.6-2.6) mg/dL Total Bilirubin 0.3 (0.0-1.0) mg/dL AST 18 (5-31) U/L ALT 6 (0-31) U/L Alkaline Phosphatase 155 H (39-117) U/L Total Protein 5.9 L (6.5-8.0) g/dL Albumin 2.6 L (3.5-5.0) g/dL Radiology Impression Discussion of test interpretation with radiology: I have reviewed the radiologist's reading. Radiologist Impression: FINDINGS: Respiratory variation, normal compression and augmented flow are noted throughout the left lower extremity. The visualized common femoral vein, superficial femoral vein, profunda femoral vein, popliteal vein and midcalf peroneal and posterior tibial venous segments show no evidence of deep venous thrombosis. There is no Escamilla's cyst. US/US venous duplex LE LT IMPRESSION: No evidence of deep venous thrombosis involving the left lower extremity. Electronically signed by: Sujit Calhoun MD 03/26/2025 04:27 PM EDT RP Dictated By: Sujit Calhoun MD Discharge Plan Discharge Clinical Impression: Pain of left calf, Hypomagnesemia Patient Disposition: Home, Self-Care Instructions: Hypomagnesemia (ED), Leg Pain (ED) Additional Instructions: You were seen in the emergency department due to leg pain. Your ultrasound does not show any evidence of a blood clot. Please rest, gentle massage, heat or ice can help. Your magnesium was also found to be low, we replenish this with 1 time dose of magnesium oxide. I am also giving you 2 days of Mag lithium, take as prescribed. Please have these levels repeated. Take Tylenol as needed for pain and symptoms. Follow-up with your primary care physician. You declined wanting any physical therapy re-evaluation. You need to follow-up with your primary care and VNA services as you would benefit from this. If any new or worsening symptoms occur including but not limited to severe chest pain or shortness of breath, please seek emergent care. Prescriptions: New acetaminophen [Tylenol 8 Hour] 650 mg tablet extended release 650 mg PO Q8H PRN (Reason: pain) Qty: 30 0RF magnesium oxide 400 mg magnesium tablet 400 mg PO BEDTIME Qty: 3 0RF No Action haloperidol 5 mg tablet 1 tab PO BID esomeprazole magnesium [Nexium] 40 mg capsule,delayed release(DR/EC) 40 mg PO DAILY@0630 atorvastatin 40 mg Tablet 40 mg PO BEDTIME Qty: 30 0RF hydrocortisone [Proctozone-HC] 2.5 % Cream With Perineal Applicator 1 appl GA BEDTIME Qty: 30 0RF potassium chloride 20 mEq Packet 40 meq PO BID Qty: 60 0RF ascorbic acid (vitamin C) 250 mg Tablet 250 mg PO DAILY Qty: 30 0RF folic acid 1 mg Tablet 1 mg PO DAILY Qty: 30 0RF furosemide 20 mg Tablet 20 mg PO BID@0900,1800 Qty: 60 0RF Protocol: Hold for SBP< HOLD for SBP < : 90 nystatin [Nyamyc] 100,000 unit/gram Powder 1 appl topical TID Qty: 30 0RF Protocol: Apply to: Apply to: fold areas and dany areas insulin lispro [Admelog U-100 Insulin lispro] 100 unit/mL Solution See Protocol subcut QIDACHS Qty: 1 0RF Protocol: Insulin Correction Scale Less than or equal to 110 ---- Give (units): 0 111 to 150 Give (units): 0 151 to 200 Give (units): 2 201 to 250 Give (units): 4 251 to 300 Give (units): 6 301 to 350 Give (units): 8 Greater than 350 Give (units): 10 Call MD if Blood Glucose > : 350 zinc sulfate [Zinc-220] 50 mg zinc (220 mg) Capsule 220 mg PO DAILY Qty: 30 0RF thiamine mononitrate (vit B1) 100 mg Tablet 100 mg PO DAILY Qty: 30 0RF (DME) pen needle, diabetic 32 gauge x 3/16 needle See Rx Instructions .Route Qty: 100 0RF Rx Instructions: As directed loperamide 2 mg Capsule 2 mg PO Q2H PRN (Reason: Diarrhea) Qty: 30 0RF aspirin 81 mg tablet,delayed release (DR/EC) 81 mg PO DAILY benztropine 0.5 mg tablet 0.5 mg PO BID (DME) insulin syringe-needle U-100 [UltiCare] 0.5 mL 30 gauge x 1/2 syringe See Rx Instructions .ROUTE DAILY Qty: 10 Rx Instructions: As directed (DME) lancets [TRUEplus Lancets] 33 gauge misc See Rx Instructions .ROUTE DAILY Qty: 100 Rx Instructions: As directed (DME) pen needle, diabetic [Easy Touch] 31 gauge x 1/4 needle See Rx Instructions .ROUTE DIRECTED Qty: 100 Rx Instructions: As directed (DME) FreeStyle Lite Strips Strip See Rx Instructions .ROUTE DAILY Qty: 10 Rx Instructions: As directed famotidine [Pepcid] 20 mg tablet 20 mg PO BEDTIME Qty: 30 3RF gabapentin 100 mg capsule 100 mg PO BEDTIME Print Language: [place]ese
[2025-03-26 13:53] LABS: Hematocrit 24.0 % (37.0-47.0); Hemoglobin 7.8 g/dl (12.0-16.0); Imm Gran Abs Auto 0.03 X10*3/uL (0.00-0.03); Imm Gran Pct Auto 0.5 % (0.0-0.4); Lymphocytes Absolute Auto 2.7 X10*3/uL (1.2-4.9); MANUAL DIFF FLAG NO; Mean Corpuscular HGB Conc 32.5 g/dl (31.0-35.0); Mean Corpuscular Hemoglobin 30.7 pg (27.0-33.0); Mean Corpuscular Volume 94.5 fL (80.0-98.0); NRBC Abs Auto 0.000 X10*3/uL (0.0-0.012); NRBC Pct Auto 0.0 /100WBC (0.0-0.2); Platelet Count 401 X10*3/uL (160-400); Red Blood Count 2.54 X10*6/uL (4.20-5.50); White Blood Count 6.0 X10*3/uL (4.8-10.8)
[2025-03-26 14:08] LABS: Alanine Aminotransferase 6 U/L (0-31); Albumin Level 2.6 g/dL (3.5-5.0); Alkaline Phosphatase 155 U/L (39-117); Anion Gap 9 (12-20); Aspartate Amino Transferase 18 U/L (5-31); Blood Urea Nitrogen 16 mg/dL (9-16); Calcium 8.2 mg/dL (8.4-10.2); Carbon Dioxide 26 mmol/L (22-29); Chloride 105 mmol/L (96-108); Creatinine Clr Calc Pharmacy 62.8; Estimated Glomerular Filt Rate > 60; Magnesium 1.5 mg/dL (1.6-2.6); Potassium 4.2 mmol/L (3.3-5.1); Sodium 136 mmol/L (135-145); Total Protein 5.9 g/dL (6.5-8.0)
[2025-03-26 14:25] VITALS: BP 120/73; PULSE 102; RESP 18; TEMP 36.8; O2SAT 98
--- OUTSIDE RECORDS SUMMARY | 2025-03-26 15:19 | XMS_ITS | Encounter Summary ---
Author Organization [employer] Address [address] [place] [address] Care Team Providers Care Rn Complex Care Name Role Phone Name, Nolan PADILLA Primary Care Provider [phone] Reason for Visit * Reason Onset Date Comments Med Refill 07/03/2024 Encounter Details Date Type Department Care Team (Late st Contact Info) Description 07/03/2024 Telephone [facility] [address], [place] [id number] Name, MD Nolan [address] [place] [address] Med Refill Social History Tobacco Use Types [...] 20 MG tablet To be sent to: [facility] - [place], [place] - [address] [place] [address] documented in this encounter Plan of Treatment Upcoming Encounters Date Type Department Care Team ([facility] st Contact Info) Description 06/11/2025 11:30 AM EDT Office Visit [facility] [address] [place] [address] Name, MD Nolan [address] [place] [address] documented as of this encounter Visit Diagnoses Not on filedocumented in this encounter Additional Health Concerns Assessment Noted Time PHQ-9 Depression Total Score: 7 04/18/20 10:20 AM EDT documented as of this encounter Care Teams Rn Complex Care Relationship Specialty Start Date End Date Name, MD Nolan [address] [place] [id number] PCP - General Family Medicine 06/13/18 documented as of this encounter
[2025-03-26 16:30] VITALS: BP 146/79; PULSE 93; RESP 16; TEMP 36.7; O2SAT 98
[2025-03-26 17:20] LABS: Glucose, Whole Blood 294 mg/dL (60-115)
[2025-03-26 18:00] VITALS: BP 146/79; PULSE 93; RESP 16; TEMP 36.7; O2SAT 98
== END 2025-03-26 18:00 | disposition home or self-care (01) ==
PROVIDERS: Physician Assistant Medical; Emergency Provider Emergency Medicine; PCP Internal Medicine Geriatric Medicine
DX: M79.605 Pain in left leg (principal); E83.42 Hypomagnesemia; E11.22 Type 2 diabetes mellitus with diabetic chronic kidney disease; R60.0 Localized edema; I12.9 Hypertensive chronic kidney disease with stage 1 through stage 4 chronic kidney disease, or unspecified chronic kidney disease; N18.30 Chronic kidney disease, stage 3 unspecified; Z79.4 Long term (current) use of insulin; Z79.899 Other long term (current) drug therapy
CPT/HCPCS: 36415; 80053; 82947; 83735; 85025; 93971; 99284

== ENCOUNTER → 2025-03-26 15:48 | Outpatient (BNV) | payer MEDICAID, SELFPAY | PROVIDERS: Emergency Provider Emergency Medicine; PCP Internal Medicine Geriatric Medicine; Visit Provider Radiology Diagnostic Radiology | DX: M79.662 Pain in left lower leg (principal) | CPT/HCPCS: 93971 ==

== ENCOUNTER 2025-04-01 12:30 | Outpatient (AMB) | payer MEDICAID, SELFPAY ==
--- NOTE | 2025-04-01 12:37 | MHC.OFFVIS ---
Intake Visit Reasons: F/u after in patient Allergies iron Allergy (Mild, Verified 03/26/25 13:32) Difficulty Breathing Iodinated Contrast Media (IV Dye, Iodine Containing) Allergy (Unknown, Verified 03/26/25 13:32) UNKNOWN iodine (IODINE) Allergy (Unknown, Verified 03/26/25 13:32) RASH seafood Allergy (Unknown, Verified 03/26/25 13:32) Unknown HPI Comments Details: The patient is a 59-year-old female presenting with difficulty walking. She was hospitalized and intubated at [facility], during which a stroke was identified by neuroimaging indicating a punctate area of restricted diffusion in the right posterior brain region. This stroke was deemed minor and not contributory to her current ambulatory difficulties. She has ongoing difficulty walking, primarily impacting the left leg, and necessitating the use of a wheelchair for mobility. Her communication remains coherent, and cognition is intact, with no noted sensory deficits. The patient's history also includes chronic kidney disease. [facility] Medical History (Updated 04/01/25 @ 13:11 by Jasiel Arriaga MD) Orthostatic hypotension Colitis Poorly controlled diabetes mellitus Esophagitis Nausea & vomiting Diabetes Blood per rectum Pneumatosis of intestines Dysphagia Anxiety disorder GERD (gastroesophageal reflux disease) Migraines Asthma On beta jordyn at home Elevated cholesterol HTN (hypertension) Smoker Diabetes Depression Heartburn Surgical History Hx of left knee surgery History of tubal ligation History of esophagogastroduodenoscopy (EGD) H/O colonoscopy Hx of cholecystectomy Social History Household Members: Children Household Members Other:: Daughter Housing: Apartment Housing Other:: pt states she lives in an apartment at her daughter's house Do you presently have visiting nurse or other home services: Yes (Daughter is [employer]) Alcohol intake: former Comment: 1:1 sitter Patient Tobacco Use Status: Never used Tobacco Tobacco use type: Cigarette Cigarette Packs Per Day: 1 Cigarettes Per Day: 20.0 Years Smoked: 15 e-Cigarette/Vaping Use: Never Used Second Hand Smoke Exposure: Yes service: No Current occupational status: disabled Review of Systems Const Details: - Neurological: Reports difficulty walking, predominantly affecting the left leg. Physical Exam Neuro Other: - Sensorium & orientation: Alert and awake, oriented to place and time. - Intellect / cognition: Following commands; speech normal. - Neurological- Alert and awake; oriented to place and time; normal cranial nerve function; speech normal. - Musculoskeletal- Deep tendon reflexes absent, flat plantar reflex noted; patient in a wheelchair. 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 We talked about the upcoming EMG and nerve conduction study to better understand her neurologic function and identify any peripheral nerve issues. The patient and her family were informed about the test procedure, its benefits in clarifying her diagnosis, and the remote risk of complications associated with nerve conduction studies. We agreed to arrange for follow-up care post-evaluation to develop an appropriate care and treatment plan based on the findings. Orders: Orders NE nerve conduction velocity Today - Critical illness polyneuropathy NE electromyogram (EMG) Today - Critical illness polyneuropathy Coding Level of Care Code Est Pt Level 5 (85990) Diagnoses Polyneuropathy associated with critical illness Peripheral neuropathy type: polyneuropathy associated with critical illness
--- OUTSIDE RECORDS SUMMARY | 2025-04-01 13:33 | XMS_ITS | Encounter Summary ---
Author Organization [employer] Address [address] [facility] 7t [place] [address] Care Team Providers Care Mash Preparatory Operator Name Role Phone Name, Nolan PADILLA Primary Care Provider [phone] Reason for Visit * Reason Onset Date Comments Med Refill 07/03/2024 Encounter Details Date Type Department Care Team (Late st Contact Info) Description 07/03/2024 Telephone [facility] MED[facility]INE [address] [place], [place] [phone] Name, MD Nolan [address] [place] [address] Med Refill Social History Tobacco Use Types [...] sent to: [facility] - [place], [place] - [address] [place] [address] documented in this encounter Plan of Treatment Upcoming Encounters Date Type Department Care Team ([facility] st Contact Info) Description 04/02/2025 2:00 PM EDT Office Visit [facility] [address] [place] [phone] Name, MD Nolan [address] [place] [address] 06/11/2025 11:30 AM EDT Office Visit [facility] [address] [place] [address] NameNolan MD [address] [place] [address] documented as of this encounter Visit Diagnoses Not on filedocumented in this encounter Additional Health Concerns Assessment Noted Time PHQ-9 Depression Total Score: 7 04/18/20 10:20 AM EDT documented as of this encounter Care Teams Mash Preparatory Operator Relationship Specialty Start Date End Date Name, MD Nolan [address] [place] [address] PCP - General Family Medicine 06/13/18 documented as of this encounter
== END 2025-04-01 13:19 | disposition home or self-care (01) ==
LOC: HO.HSM 12:31
PROVIDERS: PCP Internal Medicine Geriatric Medicine; Visit Provider Psychiatry & Neurology Neurology
DX: G62.81 Critical illness polyneuropathy (principal)
CPT/HCPCS: 99214

== ENCOUNTER → 2025-04-01 12:30 | Outpatient (BNVA) | payer MEDICAID, SELFPAY | PROVIDERS: PCP Internal Medicine Geriatric Medicine; Visit Provider Psychiatry & Neurology Neurology | DX: G62.81 Critical illness polyneuropathy (principal); R26.2 Difficulty in walking, not elsewhere classified; N18.9 Chronic kidney disease, unspecified | CPT/HCPCS: 99212 ==

== ENCOUNTER 2025-04-14 12:50 | Outpatient (REF) | payer MEDICAID, SELFPAY ==
--- OUTSIDE RECORDS SUMMARY | 2025-04-14 13:09 | XMS_ITS | Encounter Summary ---
Author Organization [employer] Address [address] [facility] 7t [place] [address] Care Team Providers Care Bouffant Curtain Machine Tender Name Role Phone Name, Nolan PADILLA Primary Care Provider [phone] Reason for Visit * Reason Onset Date Comments Med Refill 07/03/2024 Encounter Details Date Type Department Care Team (Late st Contact Info) Description 07/03/2024 Telephone [facility] MEDICINE [address] [place], [place] [phone] Name, MD Nolan [address] [place] [address] Med Refill Social History Tobacco Use Types [...] 20 MG tablet To be sent to: [facility] - [place], [place] - [address] [place] [address] documented in this encounter Plan of Treatment Upcoming Encounters Date Type Department Care Team ([facility] st Contact Info) Description 06/11/2025 11:30 AM EDT Office Visit [facility] MED[facility]INE [address] [place] [address] Name, MD Nolan [address] [place] [address] documented as of this encounter Visit Diagnoses Not on filedocumented in this encounter Additional Health Concerns Assessment Noted Time PHQ-9 Depression Total Score: 7 04/18/20 10:20 AM EDT documented as of this encounter Care Teams Bouffant Curtain Machine Tender Relationship Specialty Start Date End Date Name, MD Nolan [address] [place] [id number] PCP - General Family Medicine 06/13/18 documented as of this encounter
--- NOTE | 2025-04-14 13:10 | EMG_ITS ---
Please see the attached neurophysiology report MTDD
== END 2025-04-14 12:51 | disposition home or self-care (01) ==
LOC: HO.NEURO 12:50
PROVIDERS: PCP Internal Medicine Geriatric Medicine; Visit Provider Psychiatry & Neurology Neurology
DX: G62.81 Critical illness polyneuropathy (principal)
CPT/HCPCS: 95886; 95911

== ENCOUNTER → 2025-04-14 13:10 | Outpatient (BNV) | payer MEDICAID, SELFPAY | PROVIDERS: PCP Internal Medicine Geriatric Medicine; Visit Provider Psychiatry & Neurology Neurology | DX: E11.42 Type 2 diabetes mellitus with diabetic polyneuropathy (principal); G57.83 Other specified mononeuropathies of bilateral lower limbs | CPT/HCPCS: 95886; 95911 ==

== ENCOUNTER 2025-04-18 10:35 | Outpatient (AMB) | payer MEDICAID, SELFPAY ==
--- OUTSIDE RECORDS SUMMARY | 2025-04-18 10:37 | XMS_ITS | Encounter Summary ---
Author Organization [employer] Address [address] [facility] 7t [place] [address] Care Team Providers Care Terrazzo Mechanic Name Role Phone Name, Nolan PADILLA Primary Care Provider [phone] Reason for Visit * Reason Onset Date Comments Med Refill 07/03/2024 Encounter Details Date Type Department Care Team (Late st Contact Info) Description 07/03/2024 Telephone [facility] MEDICINE 230 [place], [place] [phone] Name, MD Nolan [address] [place] [address] Med Refill Social History Tobacco Use Types [...] 20 MG tablet To be sent to: [facility] - [place], [place] - [address] [place] [address] documented in this encounter Plan of Treatment Upcoming Encounters Date Type Department Care Team ([facility] st Contact Info) Description 06/11/2025 11:30 AM EDT Office Visit [facility] MEDICINE [address] [place] [address] Name, MD Nolan [address] [place] [address] documented as of this encounter Visit Diagnoses Not on filedocumented in this encounter Additional Health Concerns Assessment Noted Time PHQ-9 Depression Total Score: 7 04/18/20 10:20 AM EDT documented as of this encounter Care Teams Terrazzo Mechanic Relationship Specialty Start Date End Date Name, MD Nolan [address] [place] [address] PCP - General Family Medicine 06/13/18 documented as of this encounter
--- NOTE | 2025-04-18 10:45 | MHC.OFFVIS ---
Intake Visit Reasons: EMG Results Instrument Repairer Required: Yes Instrument Repairer Name: #[id number] Accompanied by: Family/Other Allergies iron Allergy (Mild, Verified 04/18/25 10:47) Difficulty Breathing Iodinated Contrast Media (IV Dye, Iodine Containing) Allergy (Unknown, Verified 04/18/25 10:47) UNKNOWN iodine (IODINE) Allergy (Unknown, Verified 04/18/25 10:47) RASH seafood Allergy (Unknown, Verified 04/18/25 10:47) Unknown Medication List - Last Reconciled 04/18/25 by Kesha Delgado CNP acetaminophen ER (Tylenol 8 Hour) 650 mg PO Q8H PRN ascorbic acid (vitamin C) 250 mg PO DAILY aspirin 81 mg PO DAILY atorvastatin 40 mg PO BEDTIME benztropine 0.5 mg PO BID blood sugar diagnostic (FreeStyle Lite Strips) As directed esomeprazole magnesium (Nexium) 40 mg PO DAILY@0630 famotidine (Pepcid) 20 mg PO BEDTIME folic acid 1 mg PO DAILY furosemide 20 mg See Protocol PO BID@0900,1800 gabapentin 100 mg PO BEDTIME haloperidol 1 tab PO BID hydrocortisone 2.5% (Proctozone-HC) 1 appl [place] BEDTIME insulin lispro (Admelog U-100 Insulin lispro) See Protocol units subcut QIDACHS insulin syringe-needle U-100 (UltiCare) As directed lancets (TRUEplus Lancets) As directed loperamide 2 mg PO Q2H PRN magnesium oxide 400 mg PO BEDTIME nystatin (Nyamyc) 1 appl See Protocol topical TID pen needle, diabetic As directed pen needle, diabetic (Easy Touch) As directed potassium chloride 40 mEq PO BID thiamine mononitrate (vit B1) 100 mg PO DAILY zinc sulfate (Zinc-220) 220 mg (4.4 x 50 mg zinc (220 mg)) PO DAILY HPI Comments Details: 60-year-old female with CKD, diabetes, presenting with difficulty walking, primarily impacting the left leg. She was hospitalized and intubated at [facility], during which a stroke was identified by neuroimaging indicating a punctate area of restricted diffusion in the right posterior brain region. This stroke was deemed minor and not contributory to her current ambulatory difficulties. Her communication remains coherent, and cognition is intact. She has ongoing difficulty walking. She often uses wheelchair, but walks some at home with walker. No recent falls. She has pain in legs, worse at night. Sleep was disrupted because of pain. Gabapentin 100mg at bedtime did not help much. No medication side effects. She also had some numbness and tingling in her legs. Her blood sugar has been running high lately, in 200s-300s. [facility] Medical History (Updated 04/18/25 @ 10:50 by Kesha Delgado CNP) Orthostatic hypotension Colitis Poorly controlled diabetes mellitus Esophagitis Nausea & vomiting Diabetes Blood per rectum Pneumatosis of intestines Dysphagia Anxiety disorder GERD (gastroesophageal reflux disease) Migraines Asthma On beta jordyn at home Elevated cholesterol HTN (hypertension) Smoker Diabetes Depression Heartburn Surgical History Hx of left knee surgery History of tubal ligation History of esophagogastroduodenoscopy (EGD) H/O colonoscopy Hx of cholecystectomy Social History Household Members: Children Household Members Other:: Daughter Housing: Apartment Housing Other:: pt states she lives in an apartment at her daughter's house Do you presently have visiting nurse or other home services: Yes (Daughter is TREE EXPERT) Alcohol intake: former Comment: 1:1 sitter Patient Tobacco Use Status: Never used Tobacco Tobacco use type: Cigarette Cigarette Packs Per Day: 1 Cigarettes Per Day: 20.0 Years Smoked: 15 e-Cigarette/Vaping Use: Never Used Second Hand Smoke Exposure: Yes service: No Current occupational status: disabled Review of Systems Const Details: - Neurological: Reports difficulty walking, predominantly affecting the left leg. Physical Exam Neuro Other: - Sensorium & orientation: Alert and awake, oriented to place and time. - Intellect / cognition: Following commands; speech normal. - Neurological- Alert and awake; oriented to place and time; normal cranial nerve function; speech normal. - Musculoskeletal- Deep tendon reflexes absent, flat plantar reflex noted; patient in a wheelchair. 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 Increase gabapentin 300mg 1 capsule at bedtime, use/side effects reviewed. Control blood sugar. Use walker at all times. 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
== END 2025-04-18 11:08 | disposition home or self-care (01) ==
LOC: HO.HSM 10:35
PROVIDERS: PCP Internal Medicine Geriatric Medicine; Visit Provider Registered Nurse
DX: G62.81 Critical illness polyneuropathy (principal)
CPT/HCPCS: 99214

== ENCOUNTER → 2025-04-18 10:35 | Outpatient (BNVA) | payer MEDICAID, SELFPAY | PROVIDERS: PCP Internal Medicine Geriatric Medicine; Visit Provider Registered Nurse | DX: Z71.2 Person consulting for explanation of examination or test findings (principal); G62.81 Critical illness polyneuropathy | CPT/HCPCS: 99212 ==

== ENCOUNTER 2025-05-26 13:35 | Outpatient (AMB) | payer MEDICAID, SELFPAY ==
--- NOTE | 2025-05-26 13:38 | HO.NEPHOV_ITS ---
Vital Signs 05/26/25 13:41 Height 5 ft 3 in BP 80/74 L Blood Pressure Location Rt brachial Position Sitting Pulse 88 Pulse Source Pulse Oximeter Pulse Oximetry (%) 96 Oxygen Delivery Method Room Air Intake Visit Reasons: 4 MO FU/ LVM Health Information Systems Technician Required: Yes Health Information Systems Technician Name: Amalia [phone] Accompanied by: Daughter Allergies iron Allergy (Mild, Verified 05/26/25 13:40) Difficulty Breathing Iodinated Contrast Media (IV Dye, Iodine Containing) Allergy (Unknown, Verified 05/26/25 13:40) UNKNOWN iodine (IODINE) Allergy (Unknown, Verified 05/26/25 13:40) RASH seafood Allergy (Unknown, Verified 05/26/25 13:40) Unknown Medication List - Last Reconciled 05/26/25 by Torrey Patel MD acetaminophen ER (Tylenol 8 Hour) 650 mg PO Q8H PRN ascorbic acid (vitamin C) 250 mg PO DAILY aspirin 81 mg PO DAILY atorvastatin 40 mg PO BEDTIME benztropine 0.5 mg PO BID blood sugar diagnostic (FreeStyle Lite Strips) As directed esomeprazole magnesium (Nexium) 40 mg PO DAILY@0630 famotidine 20 mg PO BEDTIME folic acid 1 mg PO DAILY furosemide 20 mg See Protocol PO BID@0900,1800 gabapentin 300 mg PO BEDTIME 30 days haloperidol 1 tab PO BID hydrocortisone 2.5% (Proctozone-HC) 1 appl [place] BEDTIME insulin lispro (Admelog U-100 Insulin lispro) See Protocol units subcut QIDACHS insulin syringe-needle U-100 (UltiCare) As directed lancets (TRUEplus Lancets) As directed loperamide 2 mg PO Q2H PRN magnesium oxide 400 mg PO BEDTIME nystatin (Nyamyc) 1 appl See Protocol topical TID pen needle, diabetic As directed pen needle, diabetic (Easy Touch) As directed potassium chloride 40 mEq PO BID thiamine mononitrate (vit B1) 100 mg PO DAILY zinc sulfate (Zinc-220) 220 mg (4.4 x 50 mg zinc (220 mg)) PO DAILY HPI Comments Details: 59-year-old woman with a history of diabetes mellitus referred for chronic kidney disease. Baseline creatinine is around 1.0 mg/dL. Recently creatinine bumped up to 1.5. Last year the serum creatinine had bumped to 1. 9 and she had CAMPOS due to hypoperfusion. CAMPOS subsequently resolved She has had mild chronic hyponatremia. Recently potassium bumped up to 5.5 by the specimen was slightly hemolyzed. She also has persistent mild metabolic acidosis. Ongoing medical problems include longstanding diabetes mellitus. Overall blood sugar has been better controlled recently. History of hypertension. Blood pressure has been well controlled. Today she was accompanied by her daughter. Health Information Systems Technician service was used. She smokes less than 10 cigarettes a day. No history of any alcohol abuse 06/20/24: continues with chronic mild hyponatremia potassium repeat on 05/30 normalized (4.5) continues with metabolic acidosis; lactate level normal. (on metformin). renal US results from 06/18 pending Creatinine has bumped from to 1.58 from 1.41 with last blood work: 02/06/24 0.96 03/08/24 Cr 1.63 05/20/24 1.41 05/30/24 1.58 Urine 05/30 mild protein (25), +glucose, negative for blood, leukocyte esterace, casts, WBC currently taking amlodipine 5mg daily, losartan 25mg daily, and metoprolol ER 50mg daily for BP control pt eating low sodium diet has not been restricting her oral free water to 1.2L daily, she will start this sugars are doing well still smoking, not ready to cut down no NSAIDs denies changes to OTC/prescribed medications since last visit 07/23/24 ;Denies any compliants;Off Metformin 08/27/24 ;No new issues 11/14/24 Accompanied by family Health Information Systems Technician was used Blood sugar was 666 ! Drinks 3 to 5 cans of coca cola Has difficulty swallowing 12/26/24 :No new issues 05/26/25 The patient is a 60-year-old female presenting with a follow-up for acute kidney injury and electrolyte balance. Hospitalized in January for decreased kidney function, now improved. Reports low blood pressure during the visit. Denies nausea, vomiting, diarrhea; constipation noted previously. medication list incomplete. Advised to verify medication list and bring to next appointment. [facility] Medical History (Updated 05/26/25 @ 13:56 by Torrey Patel MD) Orthostatic hypotension Colitis Poorly controlled diabetes mellitus Esophagitis Nausea & vomiting Diabetes Blood per rectum Pneumatosis of intestines Dysphagia Anxiety disorder GERD (gastroesophageal reflux disease) Migraines Asthma On beta jordyn at home Elevated cholesterol HTN (hypertension) Smoker Diabetes Depression Heartburn Surgical History Hx of left knee surgery History of tubal ligation History of esophagogastroduodenoscopy (EGD) H/O colonoscopy Hx of cholecystectomy Social History Household Members: Children Household Members Other:: Daughter Housing: Apartment Housing Other:: pt states she lives in an apartment at her daughter's house Do you presently have visiting nurse or other home services: Yes (Daughter is FIRE EXTINGUISHER MECHANIC) Alcohol intake: former Comment: 1:1 sitter Patient Tobacco Use Status: Never used Tobacco Tobacco use type: Cigarette Cigarette Packs Per Day: 1 Cigarettes Per Day: 20.0 Years Smoked: 15 e-Cigarette/Vaping Use: Never Used Second Hand Smoke Exposure: Yes service: No Current occupational status: disabled Physical Exam Vital Signs: Last Vital Signs Pulse 88 05/26/25 13:41 BP 80/74 L 05/26/25 13:41 Pulse Ox 96 05/26/25 13:41 Oxygen Delivery Method Room Air 05/26/25 13:41 Last Vital Signs Temp 98.6 F 01/02/25 07:39 Pulse 88 01/02/25 07:39 Resp 17 01/02/25 07:39 BP 163/63 H 01/02/25 07:39 Pulse Ox 93 01/02/25 07:39 O2 Del Method Nasal Cannula 01/02/25 07:39 O2 Flow Rate 2 01/02/25 07:39 BMI result Body Mass Index 23.2 Const Other: Constitutional : interactive, not in distress Cardiovascular : no JVP, no lower extremity edema Respiratory : bilateral chest movement, not in resp distress , on O2 supplement, minimal basal crackles Gastrointestinal: soft, lax, mild left abd pain sided tenderness, no surgical signs Skin : Warm, Dry Neurological : Alert & oriented to self and place but otherwise confused and mildly delerious , No focal deficit General: ill appearing Neck Neck: Yes supple Resp Auscultation: clear to auscultation bilaterally Cardio Palpation: no palpable S3 Heart sounds: no rubs GI Palpation (GI): Soft to palpation Auscultation: normal bowel sounds Neuro Motor exam (neuro): no asterixis Results Reviewed Nephrology Results: Hgb, (12.0-16.0) 7.8 g/dl L 03/26/25 WBC, (4.8-10.8) 6.0 X10*3/uL 03/26/25 Plt Count, (160-400) 401 X10*3/uL H Δ 03/26/25 Sodium, (135-145) 136 mmol/L 03/26/25 Potassium, (3.3-5.1) 4.2 mmol/L Δ 03/26/25 Chloride, (96-108) 105 mmol/L 03/26/25 Carbon Dioxide, (22-29) 26 mmol/L 03/26/25 BUN, (9-16) 16 mg/dL 03/26/25 Creatinine, (0.5-1.4) 0.74 mg/dL 03/26/25 Calcium, (8.4-10.2) 8.2 mg/dL L Δ 03/26/25 Urine Protein, (Neg-Trace) 30 (1+) mg/dL H 03/18/25 Renal US 06/18/24 Assessment & Plan Assessment & Plan (1) CKD (chronic kidney disease): Comment: Most likely due to underlying diabetic kidney disease. Code(s): N18.9 - Chronic kidney disease, unspecified Category: Medical Qualifiers: Chronic kidney disease stage: stage 3 (moderate) Chronic kidney disease stage 3 subtype: stage 3b (GFR 30-44) Qualified Code(s): N18.32 - Chronic kidney disease, stage 3b Plan: Superimposed CAMPOS from hypoperfusion Cr is back to normal range NO evidence of obstruction -Probably had hypoperfusion (2) Diabetes: Comment: Goal A1c less than 7% Code(s): E11.9 - Type 2 diabetes mellitus without complications Category: Medical Qualifiers: Diabetes mellitus type: type 2 Diabetes mellitus exterminator helper termite insulin use: with [facility] use Diabetes mellitus complication status: with kidney complications Diabetes mellitus complication detail: with nephropathy Qualified Code(s): E11.21 - Type 2 diabetes mellitus with diabetic nephropathy; Z79.4 - 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 Restrict oral free water intake to less than 1.2 L and watch serum sodium. Orders: Orders Ferritin Today E87.5 - Hyperkalemia, N17.9 - Acute kidney failure, unspecified Complete Blood Count no Diff Today E87.5 - Hyperkalemia, N17.9 - Acute kidney failure, unspecified Comprehensive Met. Panel Today E87.5 - Hyperkalemia, N17.9 - Acute kidney failure, unspecified IRON PROFILE Today E87.5 - Hyperkalemia, N17.9 - Acute kidney failure, unspecified Coding Level of Care Code Est Pt Level 4 (94925) Diagnoses Stage 3b chronic kidney disease N18.32 Chronic kidney disease stage: stage 3 (moderate) Chronic kidney disease stage 3 subtype: stage 3b (GFR 30-44) Type 2 diabetes mellitus with diabetic nephropathy, with long-term current use of insulin E11.21; Z79.4 Diabetes mellitus type: type 2 Diabetes mellitus [facility] insulin use: with exterminator helper termite use Diabetes mellitus complication status: with kidney complications Diabetes mellitus complication detail: with nephropathy Hyponatremia E87.1 Metabolic acidosis E87.20 Hypotension I95.9
[2025-05-26 13:41] VITALS: BP 80/74; PULSE 88; O2SAT 96
--- OUTSIDE RECORDS SUMMARY | 2025-05-26 18:49 | XMS_ITS | Encounter Summary ---
Author Organization [employer] Address [address] [facility] 7t [place] [address] Care Team Providers Care Operations Research Manager Name Role Phone Name, Nolan PADILLA Primary Care Provider [phone] Reason for Visit * Reason Onset Date Comments Med Refill 07/03/2024 Encounter Details Date Type Department Care Team (Late st Contact Info) Description 07/03/2024 Telephone [facility] MEDICINE [address] [place], [place] [phone] Name, MD Nolan [address] [place] [address] Med Refill Social History Tobacco Use Types [...] 20 MG tablet To be sent to: [facility] - [place], [place] - [address] [place] [address] documented in this encounter Plan of Treatment Upcoming Encounters Date Type Department Care Team ([facility] st Contact Info) Description 06/11/2025 11:30 AM EDT Office Visit [facility] MEDICINE [address] [place] [address] Name, MD Nolan [address] [place] [address] 09/24/2025 11:00 AM EST Office Visit [facility] OPTOMETRY [address] [place], [place] [phone] Nalini Soto, JACOB [address] [place] [address] documented as of this encounter Visit Diagnoses Not on filedocumented in this encounter Additional Health Concerns Assessment Noted Time PHQ-9 Depression Total Score: 7 04/18/20 10:20 AM EDT documented as of this encounter Care Teams Operations Research Manager Relationship Specialty Start Date End Date Name, MD Nolan [address] [place] [address] PCP - General Family Medicine 06/13/18 Shanell 04/24/25 documented as of this encounter
--- OUTSIDE RECORDS SUMMARY | 2025-05-26 18:49 | XMS_ITS | Encounter Summary ---
Author Organization [employer] Address [address] [facility] 7t [place] [address] Care Team Providers Care Associate Director Of Biostatistics Name Role Phone Name, Nolan PADILLA Primary Care Provider [phone] Reason for Visit * Reason Comments Med Refill Encounter Details Date Type Department Care Team (Late Contact Info) Description 04/25/2023 Refill [facility]EDS [address] [place], [place] [phone] Marlys Romero FNP Type 2 diabetes mellitus without complication, unspecified whether assisted insulin use ([facility]) Social History Tobacco Use Types Packs/Day [...] Encounters Date Type Department Care Team (Late Contact Info) Description 06/11/2025 11:30 AM EDT Office Visit [facility] MEDICINE [address] [place], [place] [phone] Name, MD Nolan [address] [place] [address] 09/24/2025 11:00 AM EST Office Visit [facility] OPTOMETRY [address] [place] [address] Nalini Soto, OD [address] [place] [address] documented as of this encounter Visit Diagnoses Diagnosis Type 2 diabetes mellitus without complication, unspecified whether superintendent container terminal insulin use ([facility]) documented in this encounter Additional Health Concerns Assessment Noted Time PHQ-9 Depression Total Score: 7 04/18/20 23 10:20 AM EDT documented as of this encounter Care Teams Associate Director Of Biostatistics Relationship Specialty Start Date End Date Name, MD Nolan [address] [place] [address] PCP - General Family Medicine 06/13/18 [place] 04/24/25 documented as of this encounter
--- OUTSIDE RECORDS SUMMARY | 2025-05-26 18:49 | XMS_ITS | Encounter Summary ---
Author Organization [employer] Address 75 [facility] 7t [place] [address] Care Team Providers Care Meat Sales And Storage Manager Name Role Phone Name, Nolan PADILLA Primary Care Provider [phone] Reason for Visit * Reason Comments Med Refill Encounter Details Date Type Department Care Team (Late st Contact Info) Description 09/21/2023 Refill [facility] MED & PEDS [address] [place], [place] [phone] Name, MD Nolan [address] [place] [address] Hypertension, unspecified type Social History Tobacco Use [...] Care Team (Late st Contact Info) Description 06/11/2025 11:30 AM EDT Office Visit [facility] MEDICINE [address] [place] [address] Name, MD Nolan [address] [place] [address] 09/24/2025 11:00 AM EST Office Visit [facility] OPTOMETRY [address] [place] [address] Charles, Nalini, OD [address] [place] [address] documented as of this encounter Visit Diagnoses Diagnosis Hypertension, unspecified type documented in this encounter Additional Health Concerns Assessment Noted Time PHQ-9 Depression Total Score: 7 04/18/20 23 10:20 AM EDT documented as of this encounter Care Teams Meat Sales And Storage Manager Relationship Specialty Start Date End Date NameNolan MD [address] [place] [phone] PCP - General Family Medicine 06/13/18 [place] 04/24/25 documented as of this encounter
--- OUTSIDE RECORDS SUMMARY | 2025-05-26 18:49 | XMS_ITS | Encounter Summary ---
Author Organization [employer] Address [address] [facility] 7t [place] [address] Care Team Providers Care Extrusion Former Name Role Phone Name, Nolan PADILLA Primary Care Provider [phone] Reason for Visit * Reason Onset Date Comments Nurse Triage 07/27/2023 Encounter Details Date Type Department Care Team (Late st Contact Info) Description 07/27/2023 Telephone [facility] MEDIC[facility] [address] [place], [place] [phone] Name, MD Nolan [address] [place] [address] Nurse Triage Social History Tobacco Use Types [...] - 07/27/2023 4:38 PM EST T/C to [phone] to daughter for below message, daughter verbally [...] Description 06/11/2025 11:30 AM EDT Office Visit [facility] [address] [place] [address] Name, MD Nolan [address] [place] [address] 09/24/2025 11:00 AM EST Office Visit [facility] OPTOMETRY [address] [place] [address] Charles, Nalini, OD [address] [place] [address] documented as of this encounter Visit Diagnoses Not on filedocumented in this encounter Additional Health Concerns Assessment Noted Time PHQ-9 Depression Total Score: 7 04/18/20 23 10:20 AM EDT documented as of this encounter Care Teams Extrusion Former Relationship Specialty Start Date End Date Name, MD Nolan [address] [place] [address] PCP - General Family Medicine 06/13/18 [place] 04/24/25 documented as of this encounter
--- OUTSIDE RECORDS SUMMARY | 2025-05-26 18:49 | XMS_ITS | Encounter Summary ---
Author Organization [employer] Address [address] [facility] 7t [place] [address] Care Team Providers Care Quality Associate Name Role Phone Name, Nolan PADILLA Primary Care Provider Reason for Visit * Reason Onset Date Comments Reschedule 10/04/2023 Encounter Details Date Type Department Care Team (Late st Contact Info) Description 10/04/2023 Telephone [facility] [address] [place], [place] [phone] Name, MD Nolan [address] [place] [address] Reschedule Social History Tobacco Use Types Packs/Day [...] daughter requesting r/s f/u appt from 10/06/23, copywriter 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 documented in this encounter Plan of Treatment Upcoming Encounters Date Type Department Care Team (Late st Contact Info) Description 06/11/2025 11:30 AM EDT Office Visit [facility] [address] [place] [address] Name, MD Nolan [address] [place] [address] 09/24/2025 11:00 AM EST Office Visit [facility] OPTOMETRY [address] [place] [address] Charles, Nalini, OD [address] [place] [address] documented as of this encounter Visit Diagnoses Not on filedocumented in this encounter Additional Health Concerns Assessment Noted Time PHQ-9 Depression Total Score: 7 04/18/20 23 10:20 AM EDT documented as of this encounter Care Teams Quality Associate Relationship Specialty Start Date End Date Name, MD Nolan [address] [place] [address] PCP - General Family Medicine 06/13/18 [place] 04/24/25 documented as of this encounter
--- OUTSIDE RECORDS SUMMARY | 2025-05-26 18:49 | XMS_ITS | Encounter Summary ---
Author Organization [employer] Address [address] [facility] [address] [place] [address] Care Team Providers Care Prevention Specialist Name Role Phone Name, Nolan PADILLA Primary Care Provider [phone] Reason for Visit * Reason Comments Med Refill Encounter Details Date Type Department Care Team ([facility] st Contact Info) Description 02/12/2025 Refill [facility] MEDICINE [address] [place], [place] [phone] Name, MD Nolan [address] [place], [place] [phone] Social History Tobacco Use Types Packs/Day Years [...] encounter Miscellaneous Notes * Telephone Encounter - Nolan Blevins MD - 02/13/2025 9:35 AM EDT She was discharge to a rehab center recently I do not see this med on her discharge summary of meds documented in this encounter Plan of Treatment Upcoming Encounters Date Type Department Care Team (Late st Contact Info) Description 06/11/2025 11:30 AM EDT Office Visit [facility] MEDICINE [address] [place] [address] Nolan Blevins MD [address] [place] [address] 09/24/2025 11:00 AM EST Office Visit [facility] OPTOMETRY [address] [place] [address] Charles, Nalini, OD [address] [place] [address] documented as of this encounter Visit Diagnoses Not on filedocumented in this encounter Additional Health Concerns Assessment Noted Time PHQ-9 Depression Total Score: 7 04/18/20 23 10:20 AM EDT documented as of this encounter Care Teams Prevention Specialist Relationship Specialty Start Date End Date Nolan Blevins MD [address] [place] [address] PCP - General Family Medicine 06/13/18 [place] 04/24/25 documented as of this encounter
--- OUTSIDE RECORDS SUMMARY | 2025-05-26 18:49 | XMS_ITS ---
Author Organization [employer] Address [address] [place] [address] 7t [place] [address] Care Team Providers Care Environmental Service Aide Name Role Phone Name, Nolan PADILLA Primary Care Provider [facility] Status:Enrolled (Active) Start date:12/31/2024 Enrollment date:03/03/2025 Enrollment reason:ADT Feed Overview ADT- Pt admitted to [facility] on 12/29/24 for major depressive d/o. Case Team Name Relationship Phone Courtney Liu(Responsible Staff) [phone] Continued Care and Services Coordination
--- OUTSIDE RECORDS SUMMARY | 2025-05-26 18:49 | XMS_ITS | Encounter Summary ---
Author Organization [employer] Address [address] [facility] 7t [place] [address] Care Team Providers Care Health Information Technologist Name Role Phone Name, Nolan PADILLA Primary Care Provider [phone] Encounter Details Date Type Department Care Team (Latest Contact Info) Description 09/07/[address] [facility] CONVERSION[facility] Dental, Provider, DDS Social History [...] Description 06/11/2025 11:30 AM EDT Office [address] [facility] MEDICINE [address] [place] [address] Name, MD Nolan [address] [place] [address] 09/24/2025 11:00 AM EST Office Visit [facility] OPTOMETRY [address] [place] [address] Nalini Soto, OD [address] [place] [address] documented as of this encounter Visit Diagnoses Not on filedocumented in this encounter Care Teams Health Information Technologist Relationship Specialty Start Date End Date Name, MD Nolan [address] [place] [address] PCP - General Family Medicine 06/13/18 [place] 04/24/25 documented as of this encounter
--- OUTSIDE RECORDS SUMMARY | 2025-05-26 18:50 | XMS_ITS | Encounter Summary ---
Author Organization [employer] Address [address] [facility] [address] [place] [address] Care Team Providers Care Patient Scheduling Coordinator Name Role Phone Name, Nolan PADILLA Primary Care Provider [phone] Reason for Visit * Reason Comments Med Refill Encounter Details Date Type Department Care Team ([facility] st Contact Info) Description 08/23/2024 Refill [facility] [address] [place], [place] [phone] Justyna Manuel MD [address] [place], [place] [phone] Depression, unspecified depression type; Diabetes mellitus type [...] [facility] MEDICINE [address] [place] [address] Name, MD Nolan [address] [place] [address] 09/24/2025 11:00 AM EST Office Visit [facility] OPTOMETRY [address] [place] [address] Charles, Nalini, OD [address] [place] [address] documented as of this encounter Visit Diagnoses Diagnosis Depression, unspecified depression type Diabetes mellitus type 2 in nonobese (CMS/[facility]) Type II or unspecified type diabetes mellitus without mention of complication, not stated as uncontrolled documented in this encounter Additional Health Concerns Assessment Noted Time PHQ-9 Depression Total Score: 7 04/18/20 23 10:20 AM EDT documented as of this encounter Care Teams Patient Scheduling Coordinator Relationship Specialty Start Date End Date Name, MD Nolan [address] [place] [phone] PCP - General Family Medicine 06/13/18 [place] 04/24/25 documented as of this encounter
--- OUTSIDE RECORDS SUMMARY | 2025-05-26 18:50 | XMS_ITS | Clinical Summary ---
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 DO NOT SMOKE WHILE USING PATCH Active SUMAtriptan (Imitrex) 50 MG tablet 022 Active fluticasone (Flonase) 50 MCG/ACT nasal sprayIndications: Diabetes mellitus type 2 in nonobese (CMS/HCC) INHALE 2 SPRAYS IN EACH NOSTRIL ONCE DAILY 48 g 1 023 Active ergocalciferol (Vitamin D2) 1.25 MG (62638 UT) capsule TAKE 1 CAPSULE BY MOUTH ONCE WEEKLY ON MONDAY MORNING 4 capsule 11 023 Active Blood Pressure kit Use once a day 1 kit 023 Active hydrOXYzine HCl (Atarax) 25 MG tablet Take 1 tablet (25 mg) by mouth every 8 (eight) hours if needed for itching or anxiety. 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 Active famotidine (Pepcid) 20 MG tablet Take 20 mg by mouth at bedtime. Active TRUEplus Lancets 33G miscIndications:T ype 2 diabetes mellitus with other specified complication, with long-term current use of insulin ([facility]) USE DIRECTED TO TEST BLOOD SUGAR EVERY DAY 100 each Active ondansetron ODT (Zofran-ODT) 4 MG disintegrating tablet Take 1 tablet by mouth every 6 (six) hours if needed for nausea. Active hydrocortisone (Anusol-HC) 2.5 % rectal cream Insert 1 Application into the rectum in the morning. Active insulin pen needle (Easy Touch Pen [place]) 31G x 6 mm miscIndications:T ype 2 diabetes mellitus with hyperglycemia, without long-term current use of insulin ([facility]) USE DIRECTED 100 each 3 Active furosemide (Lasix) 20 MG tabletIndications :Lower extremity edema Take 1 tablet (20 mg) by mouth Once per day. 30 tablet 2 025 2025 Active Lantus SoloStar 100 UNIT/ML penIndications:Ty pe 2 diabetes mellitus with other specified complication, with long-term current use of insulin ([facility]) Inject 20 Units under the skin at bedtime. 3 mL 025 2025 Active insulin lispro (HumaLOG KWIKPEN) 100 UNIT/ML injection Inject 5 Units under the skin with breakfast, with lunch, and with evening meal. 1 each 3 Active losartan (Cozaar) 25 MG tablet Take 1 tablet (25 mg) by mouth Once per day. 30 tablet 025 2025 Active gabapentin (Neurontin) 100 MG capsuleIndication s:Polyneuropathy Take 2 capsules (200 mg) by mouth at bedtime. 60 capsule 1 025 Active aspirin (Aspirin Adult Low Strength) 81 MG EC tabletIndications :Hypertension, unspecified type Take 1 tablet (81 mg) by mouth in the morning. 90 tablet 3 025 Active Ascorbic Acid (vitamin C) 250 MG tablet Take 1 tablet (250 mg) by mouth Once per day. Take 250 mg by mouth Once per day. 90 tablet 1 025 Active folic acid (Folvite) 1 MG tablet Take 1 tablet (1,000 mcg) by mouth in the morning. 90 tablet 025 Active thiamine (Vitamin B-1) 100 MG tablet Take 1 tablet (100 mg) by mouth in the morning. 90 tablet 025 Active Spiriva Respimat 1.25 MCG/ACT inhaler Inhale 2 puffs Once per day. 4 each 3 Active esomeprazole (NexIUM) [address] capsule Take 1 capsule (40 mg) by mouth in the morning. 90 capsule 025 Active benztropine (Cogentin) 0.5 MG tabletIndications :Mood disorder (CMS/HCC) TAKE 1 TABLET BY MOUTH TWICE DAILY IN THE MORNING AND IN THE EVENING 60 tablet 025 Active zinc 220 (50 Zn) MG capsule Take 1 capsule (220 mg) by mouth Once per day. 90 capsule 025 Active haloperidol (Haldol) 5 MG tabletIndications :Depression, unspecified depression type TAKE 1 TABLET BY MOUTH TWICE DAILY IN THE MORNING AND AT BEDTIMETAKE 1 TABLET BY MOUTH TWICE DAILY IN THE MORNING AND AT BEDTIME 60 tablet 025 Active atorvastatin (Lipitor) 40 MG tablet Take 1 tablet (40 mg) by mouth at bedtime. 30 tablet 025 Active FREESTYLE LITE test stripIndications: Type 2 diabetes mellitus with other specified complication, with long-term current use of insulin (CMS/HCC) TEST BLOOD SUGAR ONCE DAILY 50 strip 025 Active melatonin 3 MG tablet TAKE 1 TABLET BY MOUTH AT BEDTIME NEEDED FOR SLEEP 30 tablet 025 Active FLUoxetine (PROzac) 10 MG capsuleIndication s:Depression, unspecified depression type TAKE 1 CAPSULE BY MOUTH EVERY MORNING 30 capsule 1 025 Active mirtazapine (Remeron) 7.5 MG tabletIndications :Depression, unspecified depression type TAKE 1 TABLET BY MOUTH AT BEDTIME 30 tablet 1 025 Active FREESTYLE LITE test stripIndications: Type 2 diabetes mellitus with other specified complication, with long-term current use of insulin ([facility]) TEST BLOOD SUGAR ONCE DAILY 50 strip 11 024 2024 Discontinued FLUoxetine (PROzac) 10 MG capsuleIndication s:Depression, unspecified depression type TAKE 1 CAPSULE BY MOUTH EVERY MORNING 30 capsule 1 025 2024 Discontinued mirtazapine (Remeron) 7.5 MG tabletIndications :Depression, unspecified depression type TAKE 1 TABLET BY MOUTH AT BEDTIME 30 tablet 1 025 2024 Discontinued melatonin 3 MG tablet TAKE 1 TABLET BY MOUTH AT BEDTIME NEEDED FOR SLEEP 30 tablet 025 2024 Discontinued Active Problems Problem Noted Date Diagnosed Date Critical illness neuropathy 04/02/2025 Primary hypertension 04/02/2025 Lower extremity edema 03/18/2025 Assessment & Plan (03/18/2025 4:34 PM EDT): I restarted again her Lasix 20 mg daily Follow-up with nurse and PCP Hypokalemia 03/18/2025 Assessment & Plan (03/18/2025 4:34 PM EDT): Patient has not started her potassium and in light that I had to start her again on furosemide 20 mg I decided to go up to 20 mEq of potassium daily instead of 10 and to recheck her potassium in about 1 week Cerebrovascular accident (CVA) 03/13/2025 Overview (03/13/2025): 01/2025 at [facility] during hospitalization for sepsis and ischemic colitis, no residual focal weakness: IMPRESSION: 1. There is a tiny 3 mm focus of diffusion restriction in the right occipital pole, consistent with a tiny acute/subacute infarct. No additional infarctions identified. 2. There is no intracranial hemorrhage, mass effect, or edema. 3. There are moderate changes of small vessel ischemia. There are numerous old lacunar type infarcts in the anterior gangliocapsular regions and left thalamus. 4. There is age-appropriate cerebral and cerebellar volume loss. No abnormal patterns of atrophy. 5. There are bilateral mastoid and middle ear effusions, nonspecific in the setting of intubation. Electronically signed by: Sujit Calhoun MD 01/20/2025 01:31 PM EDT RP Adult failure to thrive 01/08/2025 CKD (chronic kidney disease) 01/08/2025 Overview (01/08/2025): Most likely due to underlying diabetic kidney disease. Poorly controlled diabetes mellitus 01/08/2025 Hypotension 01/08/2025 Depression 01/08/2025 Proteinuria due to type 2 diabetes [...] coping skills provided. Dysphagia 04/17/2023 Migraine 04/17/2023 Major depressive disorder, recurrent episode, mi ld [...] Mood disorder 01/10/2018 Noncompliance with treatment 07/05/2017 Resolved Problems Problem Noted Date Diagnosed Date Resolved Date UTI symptoms 03/18/2025 04/02/2025 Acute hypokalemia 01/08/2025 03/13/2025 Acute metabolic encephalopat hy due to hypoglycemia 01/08/2025 03/13/2025 CAMPOS (acute kidney injury) 01/08/2025 Chronic constipation 01/08/2025 07/11/10 025 Chronic hyperglycemia 01/08/20252024 Ear ache 01/08/2025 03/13/2025 Early satiety 01/08/2025 03/13/2025 Overview (01/08/2025): Diabetes, early satiety- Heartburn 01/08/2025 03/13/2025 Hyperkalemia 01/08/2025 03/13/2025 Hyperosmolar hyperglycemic state (HHS) 01/08/2025 03/13/2025 Hyponatremia 01/08/2025 03/13/2025 Overview (01/08/2025): Chronic and asymptomatic. Probably has decreased free water clearance secondary to use of SSRI. Hyperglycemia could be a contributing factor ( BS 604) Corrected Na is 131 Repeat Na is 131 Lactic acidosis 01/08/2025 03/13/2025 Metabolic acidosis 01/08/2025 Nausea & vomiting 01/08/2025 03/13/2025 Overview (01/08/2025): Decreased appetite, tolerating fluids and cigarette smoking Seemingly depressed- Esophagitis 01/08/2025 03/13/2025 Sepsis 01/08/2025 03/13/2025 Smoker unmotivated to quit 01/08/2025 0 03/13/2025 UTI (urinary tract infection) 01/08/2025 03/13/2025 Odynophagia 01/08/2025 03/13/2025 Overview (01/08/2025): Erythema rhonchi, no exudate or swelling bilateral ear pain, Diabetes 01/08/2025 03/13/2025 Overview (01/08/2025): Goal A1c less than 7% Hypoglycemia 01/08/2025 03/13/2025 Swallowing painful 04/17/2023 Suspected COVID-19 virus infection 04/17/2023 03/13/2025 Recurrent falls 09/18/2018 03/13/2025 Hypertension 10/31/2013 03/13/2025 Encounters Date Type Department Care Team Description 05/14/2025 Refill [facility] [address] [place] [address] Nolan Blevins MD Depression, unspecified depression type 05/09/2025 Patient Outreach [facility] [address] [place] [phone] Nolan Blevins MD Care Coordination ([facility]/W Courtney Liu, TC #2 Sdwv f/u_lvm) 05/08/2025 Patient Outreach [facility] [address] [place] [address] Nolan Blevins MD Care Coordination ([facility] f/u call- LVM. Case close due to loss of contact) 05/06/2025 Patient Outreach [facility] [address] [place] [address] Nolan Blevins MD 05/06/2025 Refill [facility] [address] [place] [address] Nolan Blevins MD Type 2 diabetes mellitus with other specified complication, with long-term current use of insulin ([facility]) 04/24/2025 Telephone [facility] [address] [place] [phone] Nolan Blevins MD 04/24/2025 Patient Outreach [facility] [address] [place] [phone] Nolan Blevins MD Care Management ([facility] TC #4-lvm) 04/21/2025 Refill [facility] [address] [place], [place] [phone] Nolan Blevins MD Hypertension, unspecified type; Mood disorder (CMS/HCC); Depression, unspecified depression type 04/18/2025 Telephone [facility] [address] [place] [phone] Nolan Blevins MD [facility] 04/10/2025 1:00 PM EDT Telemedicine [facility] [address] [place] [phone] Estee Vizcaino, RN Type 2 diabetes mellitus with hyperglycemia, without long-term current use of insulin ([facility]); Hypotension, unspecified hypotension type 04/10/2025 Travel 04/10/[address] [address] Nolan Blevins MD 04/09/2025 Patient Outreach [address] [address] Nolan Blevins MD Care Management ([facility] TC #3-lvm) 04/08/[address] [address] Nolan Blevins MD 04/04/[address] [address] Nolan Blevins MD 04/02/2025 2:00 PM EDT Office Visit [address] [address] Nolan Blevins MD Type 2 diabetes mellitus with other specified complication, with long-term current use of insulin ([facility]) (Primary Dx); Polyneuropathy; Low serum albumin; Chronic kidney disease, unspecified CKD stage; Primary hypertension 04/02/2025 Travel 04/01/[address] [address] Alexus Mckeon, FOCUS PULLER Follow-up 03/31/2025 Patient Outreach [facility] [address] [place] [address] Nolan Blevins MD 03/31/[address] [address] Nolan Blevins MD 03/31/[address] [address] Nolan Blevins MD Medication Question 03/26/2025 Orders Only GENERIC EXTERNAL DATA DEPARTMENT Provider, Generic External Data 03/26/2025 Patient Outreach [facility] [address] [place] [address] Nolan Blevins MD 03/26/2025 Patient Outreach [address] [address] Nolan Blevins MD Care Coordination ([facility] Rachellekathy Leanne Liu f/u call_unable to lvm ) 03/26/2025 Patient Outreach [facility] [address] [place] [address] Nolan Blevins MD Care Coordination ([facility] f/u call- LVM) 03/21/2025 10:00 AM EDT Telemedicine [facility] [address] [place] [phone] Sandra Fernandez RN Hypotension, unspecified hypotension type [I95.9]; Type 2 diabetes mellitus with hyperglycemia, without long-term current use of insulin ([facility]) [E11.65] 03/21/2025 Results Follow-Up [facility] [address] [place] [address] Edith Flores MD Culture, Urine, Routine 03/21/2025 Orders Only [address] [address] Edith Flores MD Urinary tract infection without hematuria, site unspecified (Primary Dx) 03/21/[address] [address] Nolan Blevins MD 03/21/2025 Travel 03/19/2025 Patient Outreach [facility] [address] [place] [address] Nolan Blevins MD 03/18/2025 2:00 PM EDT Office Visit [facility] [address] [place] [address] Edith Flores MD UTI symptoms; Lower extremity edema; Hypokalemia 03/18/2025 Orders Only [facility] [address] [place] [address] Edith Flores MD 03/18/2025 Travel 03/18/2025 Telephone [facility] [address] [place] [phone] Nolan Blevins MD Nurse Triage 03/16/2025 Refill [facility] [address] [place] [phone] Cindy Lainez DO Type 2 diabetes mellitus with hyperglycemia, without long-term current use of insulin ([facility]) 03/13/2025 10:00 AM EDT Office Visit [address] [address] Nolan Blevins MD Type 2 diabetes mellitus with other specified complication, with long-term current use of insulin ([facility]) (Primary Dx); Low blood pressure reading; Anemia, unspecified type; Stage 3 chronic kidney disease, unspecified whether stage 3a or 3b CKD ([facility]); Wheelchair dependence; Ischemic colitis ([facility]) 03/13/2025 Results Follow-Up [address] [address] Nolan Blevins MD POCT Glucose, POCT HGB A1C, CBC auto differential, Additional followed-up results: 3 03/12/2025 Patient Outreach [facility] [address] [place] [address] Nolan Blevins MD Care Coordination ([facility] f/u call- LVM) 03/12/[address] [address] Heather Smith MA chart prep 03/04/2025 Plan of Care Documentation [address] [address] 03/03/2025 Patient Outreach [facility] [address] [place] [address] Nolan Blevins MD Care Coordination (C3 initial assessment/ enrollment) 03/03/2025 Patient Outreach [address] [address] Nolan Blevins MD Care Coordination ([facility]/CHW LEANNE Ngo assessment done) 02/28/2025 Patient Outreach [facility] [address] [place] [address] Nolan Blevins MD 02/28/[address] [address] Nolan Blevins MD FYI 02/28/2025 Patient Outreach [address] [address] Nolan Blevins MD Care Coordination ([facility]/CHW Courtney Liu, initial assessment appt reminder ) 02/28/2025 Patient Outreach [address] [address] Nolan Blevins MD 02/26/2025 Patient Outreach [address] [address] Nolan Blevins MD Transition Of Care (Tcm) (HDF_ scheduled Direct ) 02/26/[address] [address] Nolan Blevins MD Verbal order 02/24/2025 Patient Outreach [address] [address] Nolan Blevins MD from Last 3 Months Immunizations Immunization Administration Dates Next Due Influenza injectable quadriv [...] Passive Smoke Exposure: Past Smokeless Tobacco: Never Tobacco Cessation:Counseling Given: Not Answered Alcohol Use Standard Drinks/Week [...] Sign Reading Time Taken Comments Blood Pressure 142/68 04/02/2025 2:04 PM EDT Pulse 106 04/02/2025 2:04 PM EDT Temperature 36.1 C (97 F) 04/02/2025 2:04 PM EDT Respiratory Rate 14 04/02/2025 2:04 PM EDT Oxygen Saturation 98% 04/02/2025 2:04 PM EDT Inhaled Oxygen Concentration - - Weight 56.2 kg (124 lb) 04/02/2025 2:04 PM EDT Height 160 cm (5' 3 ) 04/02/2025 2:04 PM EDT Body Mass Index 21.97 04/02/2025 2:04 PM EDT Plan of Treatment Upcoming Encounters Date Type Department Care Team (Late st Contact Info) Description 06/11/2025 11:30 AM EDT Office Visit [facility] [address] [place] [address] Name, MD Nolan [address] [place] [address] 09/24/2025 11:00 AM EST Office Visit [facility] [address] [place] [address] Charles, Nalini, OD [address] [place] [address] Health Maintenance Due Date Last Done Comments CT Colonography 1965 FIT DNA/Cologuard 1965 FIT 1965 FOBT 1965 HIV Screening 1965 Sigmoidoscopy 1965 Pap Smear 1984 Cervical Cancer Screening 1993 HPV/Cotest 1993 Zoster Vaccines (1 of 2) 2013 Pneumococcal Vaccine: 50+ Years (2 of 2 - PCV) 12/01/2016 12/02/2015, 07/20/2010 Mammogram 06/22/2020 06/22/2018 Dental Prophylaxis 03/09/2021 09/07/2020 Dental X-Ray: Bitewings 08/18/2021 08/17/2020, 02/17 Dental Oral Exam 11/17/2022 05/19/2022, 03/2020, 02/18/2016 RSV Patients and Patients Aged 60 years or older (1 - Risk 60-74 years 1-dose series) 2023 Dental X-Ray: Full Mouth 08/18/2023 08/17/2020, 06/05/2016 Depression Screening 04/18/2024 04/18/2023, 04/18/20 23 COVID-19 Vaccine ( season) 2025 06/11/2021, 05/21/2021 Influenza Vaccine (#1) 2025 , 07/13/2021, 06/21/2018, Additional history exists Diabetes: Foot Exam 05/20/2025 05/20/2024, 05/20/2024, 05/20/2024, Additional history exists Eye Exam 07/03/2025 07/03/2024, 06/12, 07/03/2024, Additional history exists Diabetes: Hemoglobin A1C 09/13/2025 07 025, 08/22/2024, 07/15/2024, Additional history exists Lipid Panel 12/29/2025 12/29/2024, 03/0 01/2024, 04/18/2023, Additional history exists SDOH Screening 03/03/2026 03/03/2025 Alcohol/Substance Use Screening 03/13/2026 03/13/2025 Disability Screening 03/13/2026 03/13/2025 Tobacco Screening 04/02/2026 04/02/2025 Colonoscopy 03/13/2028 03/13/2018 Colorectal Cancer Screening 03/13/2028 [...] patient's age to complete this topic Meningococcal B Vaccine Aged Out No l onger eligible based on patient's age to complete [...] Procedure Name Priority Date/Time Associated Diagnosis Comments GLUCOSE, WHOLE BLOOD Routine 03/26/2025 5:16 PM EDT LOWER EXTREMITY VENOUS DUPLEX LEFT Routine 03/26/2025 4:15 PM EDT MAGNESIUM Routine 03/26/2025 1:48 PM EDT COMPREHENSIVE METABOLIC PANEL Routine 03/26/2025 1:48 PM EDT CBC WITH AUTO DIFFERENTIAL Routine 03/26/2025 1:48 PM EDT CULTURE, URINE, ROUTINE Routine 03/18/2025 6:06 PM EDT URINALYSIS, COMPLETE, WITH REFLEX TO CULTURE Routine 03/18/2025 12:00 AM EDT UTI symptoms FERRITIN Routine 03/13/2025 10:58 AM EDT Type 2 diabetes mellitus with other specified complication, with long-term current use of insulin (CMS/HCC) Low blood pressure reading Anemia, unspecified type Stage 3 chronic kidney disease, unspecified whether stage 3a or 3b CKD (CMS/HCC) IRON AND TOTAL IRON BINDING CAPACITY Routine 03/13/2025 10:58 AM EDT Type 2 diabetes mellitus with other specified complication, with long-term current use of insulin (CMS/HCC) Low blood pressure reading Anemia, unspecified type Stage 3 chronic kidney disease, unspecified whether stage 3a or 3b CKD (CMS/HCC) COMPREHENSIVE METABOLIC PANEL Routine 03/13/2025 10:58 AM EDT Type 2 diabetes mellitus with other specified complication, with long-term current use of insulin (CMS/HCC) Low blood pressure reading Anemia, unspecified type Stage 3 chronic kidney disease, unspecified whether stage 3a or 3b CKD (CMS/HCC) CBC WITH AUTO DIFFERENTIAL Routine 03/13/2025 10:58 AM EDT Type 2 diabetes mellitus with other specified complication, with long-term current use of insulin (CMS/HCC) Low blood pressure reading Anemia, unspecified type Stage 3 chronic kidney disease, unspecified whether stage 3a or 3b CKD (CMS/HCC) POCT GLYCATED HEMOGLOBIN, TOTAL Routine 03/13/2025 10:18 AM EDT Type 2 diabetes mellitus with other specified complication, with long-term current use of insulin (CMS/HCC) POCT GLUCOSE Routine 03/13/2025 10:18 AM EDT Type 2 diabetes mellitus with other specified complication, with long-term current use of insulin (CMS/HCC) LIPID PANEL, STANDARD Routine 12/29/2024 8:46 AM EDT PERIODIC ORAL EVALUATION - ESTABLISHED PATIENT Routine 05/19/2022 12:00 AM EDT GLENDY HISTORICAL HEPATITIS C AB W/REFL TO HCV RNA, QN, PCR Routine 11/13/2020 2:31 PM EST PROPHYLAXIS - ADULT Routine 09/07/2020 1 2:00 AM EST INTRAORAL - COMPLETE SERIES OF RADIOGRAPHIC IMAGES Routine 08/17/2020 12:00 AM EST BI MAMMOGRAM SCREENING BILATERAL Routine 06/22/2018 1:13 PM EDT HM COLONOSCOPY Routine 03/13/2018 DIABETES EYE EXAM Routine 04/20/2012 from Last 3 Months or Most Recently Relevant to Health Maintenance Results * (ABNORMAL) Glucose, Whole Blood (03/26/2025 5:16 PM EDT) Glucose, Whole Blood 294(H) 60 - 115 mg/dL [facility] Comment:METER #: [id number] 03/26/2025 5:16 PM EDT 03/26/2025 5:20 PM EDT us Generic External Data Provider LAB BLOOD ORDERAB LES Final Result [facility] [address] [place] [phone] * Lower Extremity Venous Duplex (03/26/2025 4:15 PM EDT) 03/26/2025 4:15 PM EDT Narrative [facility] - 03/26/2025 4:29 PM EDT [address] [address] Ultrasound Report Signed Patient: Rita Page MR#: [id number] : 1965 Acct:[id number] Age/Sex: 59 / F ADM Date: 03/26/25 Loc: HO.ED Attending Dr: Ordering Physician: Carli Buenrostro Date of Service: 03/26/25 Procedure(s): US venous duplex LE LT Accession Number(s): [id number] cc: Carli Buenrostro; Name,Nolan PADILLA EXAMINATION: US TRIPLEX LOWER EXTREMITY, LEFT CLINICAL INFORMATION: Left calf pain. COMPARISON: None available. TECHNIQUE: Color-flow triplex imaging with spectral analysis and compression Doppler were performed on the left lower extremity. FINDINGS: Respiratory variation, normal compression and augmented flow are noted throughout the left lower extremity. The visualized common femoral vein, superficial femoral vein, profunda femoral vein, popliteal vein and midcalf peroneal and posterior tibial venous segments show no evidence of deep venous thrombosis. There is no Escamilla's cyst. US/US venous duplex LE LT IMPRESSION: No evidence of deep venous thrombosis involving the left lower extremity. Electronically signed by: Sujit Calhoun MD 03/26/2025 04:27 PM EDT RP Dictated By: Sujit Calhoun MD Signed By: <Electronically signed by Sujit Calhoun MD in OV> 03/26/25 1627 DD/ 1615 TD/TT: 03/26/25 1620 Cdl Instructor: Procedure Note Donotuseinterpreter, Image - 03/26/2025 [place] [address] Ultrasound Report Signed Patient: Maxx RazaMagnolia#: [id number] : 1965Acct:[id number] Age/Sex: 59 / FADM Date: 03/26/25 Loc: .ED Attending Dr: Ordering Physician: Carli Buenrostro Date of Service: 03/26/25 Procedure(s): US venous duplex LE LT Accession Number(s): [id number] cc: Carli Buenrostro; NameNolan MD EXAMINATION: US TRIPLEX LOWER EXTREMITY, LEFT CLINICAL INFORMATION: Left calf pain. COMPARISON: None available. TECHNIQUE: Color-flow triplex imaging with spectral analysis and compression Doppler were performed on the left lower extremity. FINDINGS: Respiratory variation, normal compression and augmented flow are noted throughout the left lower extremity. The visualized common femoral vein, superficial femoral vein, profunda femoral vein, popliteal vein and midcalf peroneal and posterior tibial venous segments show no evidence of deep venous thrombosis. There is no Escamilla's cyst. US/US venous duplex LE LT IMPRESSION: No evidence of deep venous thrombosis involving the left lower extremity. Electronically signed by: Sujit Calhoun MD 03/26/2025 04:27 PM EDT Dictated By: Sujit Calhoun MD Signed By: <Electronically signed by Sujit Calhoun MD in OV> 03/26/25 1627 DD/ 1615 TD/TT: 03/26/25 1620 Cdl Instructor: [facility] External Provider CV VASC ULAR PROCEDURES Final Result [facility] [address] [place] [phone] * (ABNORMAL) CBC auto differential (03/26/2025 1:48 PM EDT) Only the most recent of2 resultswithin the time period is included. White Blood Count 6.0 4.8 - 10.8 X10*3/uL [facility] Red Blood Count 2.54(L) 4.20 - 5.50 X10*6/uL [facility] Hemoglobin 7.8(L) 12.0 - 16.0 g/dl [facility] Hematocrit 24.0(L) 37.0 - 47.0 % [facility] Mean Corpuscular Volume 94.5 80.0 - 98.0 fL [facility] Mean Corpuscular Hemoglobin 30.7 27.0 - 33.0 pg [facility] Mean Corpuscular HGB Conc 32.5 31.0 - 35.0 g/dl [facility] Red Cell Distribution Width 16.2(H) 11.0 - 16.0 % [facility] Platelet Count 401(H) 160 - 400 X10*3/uL [facility] Mean Platelet Volume 8.2(L) 9.4 - 12.3 fL [facility] Neutrophils Percent Auto 45.2 45 - 73 % [facility] Imm Gran Pct Auto 0.5(H) 0.0 - 0.4 % [facility] Lymphocytes Percent Auto 44.9(H) 20 - 40 % [facility] Monocytes Percent Auto 7.4 2 - 11 % [facility] Eosinophils Percent Auto 1.5 0 - 4 % [facility] Basophils Percent Auto 0.5 0 - 2 % [facility] NRBC Pct Auto 0.0 0.0 - 0.2 /100WBC [facility] Neutrophils Absolute Auto 2.7 2.0 - 8.3 x10*3/uL [facility] Imm Gran Abs Auto 0.03 0.00 - 0.03 X10*3/uL [facility] Lymphocytes Absolute Auto 2.7 1.2 - 4.9 X10*3/uL [facility] Monocytes Absolute Auto 0.4 0.1 - 1.2 X10*3/uL [facility] Eosinophils Absolute Auto 0.1 0.0 - 0.4 X10*3/uL [facility] Basophils Absolute Auto 0.0 0.0 - 0.2 X10*3/uL [facility] NRBC Abs Auto 0.000 0.0 - 0.012 X10*3/uL [facility] 03/26/2025 1:48 PM EDT 03/26/2025 1:51 PM EDT us Generic External Data Provider LAB BLOOD ORDERAB LES Final Result [facility] [address] [place] [phone] [phone] * (ABNORMAL) Magnesium (03/26/2025 1:48 PM EDT) Magnesium 1.5(L) 1.6 - 2.6 mg/dL [facility] 03/26/2025 1:48 PM EDT 03/26/2025 1:51 PM EDT us Generic External Data Provider LAB BLOOD ORDERAB LES Final Result [facility] [address] [place] [address] [phone] * (ABNORMAL) Comprehensive Metabolic Panel (03/26/2025 1:48 PM EDT) Only the most recent of2 resultswithin the time period is included. Sodium 136 135 - 145 mmol/L [facility] Potassium 4.2 3.3 - 5.1 mmol/L [facility] Chloride 105 96 - 108 mmol/L [facility] Carbon Dioxide 26 22 - 29 mmol/L [facility] Anion Gap 9(L) 12 - 20 [facility] Urea Nitrogen (BUN) 16 9 - 16 mg/dL [facility] Creatinine, Serum 0.74 0.5 - 1.4 mg/dL [facility] Creatinine Clr Calc Pharmacy 62.8 [facility] Comment:Provided height and weight: 160.02 cm,49.895 kg.eGFR (calculated from the MDRD study equation) and eCrCl(calculated from the Cockcroft-Gault equation) are based ondifferent parameters and may not yield comparable results.If eCrCl result is absurd, please check patient'sheight/weight. Estimated Glomerular Filt Rate >60 [facility] Comment:Chronic Kidney Disea se: Estimated GFR < 60 mL/min/1.45b2Ftioqt Kidney Disease: Estimated GFR < 15 mL/min/1.73m2 Glucose 336(H) 60 - 115 mg/dL [facility] Calcium 8.2(L) 8.4 - 10.2 mg/dL [facility] Bilirubin, Total 0.3 0.0 - 1.0 mg/dL [facility] Aspartate Amino Transferase 18 5 - 31 U/L [facility] Alanine Aminotransferase 6 0 - 31 U/L [facility] Total Protein 5.9(L) 6.5 - 8.0 g/dL [facility] Albumin Level 2.6(L) 3.5 - 5.0 g/dL [facility] Alkaline Phosphatase 155(H) 39 - 117 U/L [facility] 03/26/2025 1:48 PM EDT 03/26/2025 1:51 PM EDT us Generic External Data Provider LAB BLOOD ORDERAB LES Final Result [facility] [address] [place] [phone] * Culture, Urine, Routine (03/18/2025 6:06 PM EDT) Urine Urine specimen obtained by clean catch procedure / Unknown 03/18/2025 6:06 PM EDT 03/18/2025 6:06 PM EDT Comment:UACC Narrative [facility] - 03/21/2025 8:01 AM EDT Citrobacter freundii Quant > 100,000 cfu/mL Proteus mirabilis Quant 10,000 to 50,000 cfu/mL Citrobacter freundii: Cefazolin >=32(R) Citrobacter freundii: Cefepime 1(S) Citrobacter freundii: Ceftriaxone >=64(R) Citrobacter freundii: Ciprofloxacin <=0.06(S) Citrobacter freundii: Gentamicin <=1(S) Citrobacter freundii: Nitrofurantoin 64(I) Citrobacter freundii: Trimethoprim/Sulfamethoxazole <=20(S) Proteus mirabilis: Ampicillin >=32(R) Proteus mirabilis: Cefazolin (Urine) 8(S) Proteus mirabilis: Cefepime <=0.12(S) Proteus mirabilis: Ceftriaxone <=0.25(S) Proteus mirabilis: Ciprofloxacin <=0.06(S) Proteus mirabilis: Gentamicin <=1(S) Proteus mirabilis: Nitrofurantoin 64(R) Proteus mirabilis: Trimethoprim/Sulfamethoxazole 40(S) Specimen Source: Urine clean catch us Edith Man MD LAB MICROBIOLOGY - GE NERAL ORDERABLES Final Result Performing Organization Address [facility]/ZIP Co de Phone Number [facility] [address] [place] [address] [phone] * (ABNORMAL) Urinalysis, Complete, with Reflex to Culture (03/18/2025 12:00 AM EDT) Color Urine Yellow [facility] Appearance Urine Cloudy [facility] PH 7.5 5.0 - 9.0 [facility] Glucose Urine UA Negative Negative mg/dL [facility] Urine Blood Negative Negative [facility] Specific [place] - Urine 1.010 1.005 - 1.025 [facility] Urine Protein 30 (1+)(A) Neg-Trace mg/dL [facility] Urine Ketones Negative Negative mg/dL [facility] Nitrite Urine Negative Negative [facility] Leukocyte Esterase Urine Large (3+)(A) Negative [facility] RBC Urine 0-2 0 - 2 /HPF [facility] Urine WBC >50(A) 0 - 5 /HPF [facility] Urine Squamous Epithelial Cell 0-2 0 - 2 /HPF [facility] Urine Bacteria 4+ None Seen [facility] Hyaline Casts, Urine 3-5 0 - 2 /LPF [facility] Urine 03/18/2025 03/18/2025 Narrative [facility] - 03/18/2025 5:44 PM EDT Urine, Clean Catch us Edith Man MD LAB URINE ORDERABLES Final Result Performing Organization Address [facility]/ZIP Co de Phone Number [facility] [address] [place] [phone] [phone] * (ABNORMAL) Iron And Total Iron Binding Capacity (03/13/2025 10:58 AM EDT) Iron 41 30 - 160 mcg/dL [facility] Total Iron Binding Capacity 81(L) 228 - 428 mcg/dL [facility] Percent Iron Saturation 51(H) 15 - 50 % [facility] Unsaturated Iron Binding 40 ug/dL [facility] Blood Venous blood specimen / Unknown 03/13/2025 10:58 AM EDT 03/13/2025 1:13 PM EDT us Nolan Blevins MD LAB BLOOD ORDERABLES Final Resul t Performing Organization Address City/[facility] Co de Phone Number [facility] [address] [place] [phone] * (ABNORMAL) Ferritin (03/13/2025 10:58 AM EDT) Ferritin 1,060(H) 10 - 250 ng/mL [facility] Blood Venous blood specimen / Unknown 03/13/2025 10:58 AM EDT 03/13/2025 1:13 PM EDT us Nolan Blevins MD LAB BLOOD ORDERABLES Final Resul t Performing Organization Address [facility] de Phone Number [facility] [address] [place] [phone] * (ABNORMAL) POCT HGB A1C (03/13/2025 10:18 AM EDT) Hemoglobin A1C 5.9(A) 4.0 - 5.7 % QC Media Lot # [id number] Lot# Expiration Date Blood 03/13/2025 10:1 8 AM EDT us Nolan Blevins MD POINT OF CARE TEST ENTER/EDIT OR DERABLES Final Result * (ABNORMAL) POCT Glucose (03/13/2025 10:18 AM EDT) Glucose Blood, POC 331(A) 60 - 200 mg/dL QC Media Lot # [id number] Lot# Expiration Date [id number] Blood Capillary blood specimen / Unknown 03/13/2025 10:18 AM EDT Nolan Blevins MD POINT OF CARE TEST ENTER/EDIT OR DERABLES Final Result * Lipid Panel, Standard (12/29/2024 8:46 AM EDT) Triglycerides 96 <150 mg/dL [facility] Comment:Desirable Triglyceri de: less than 150 mg/dLBorderline High Triglyceride 150-199 mg/dLHigh Triglyceride: 200-499 mg/dLVery High Triglyceride: greater than or equal to 5OO mg/dL Cholesterol 142 <200 mg/dL [facility] Comment:Desirable Cholestero l: less than 200 mg/dLBorderline High Cholesterol: 200-239 mg/dLHigh Cholesterol: greater than 239 mg/dL LDL Cholesterol Calculated 78 <100 mg/dL [facility] Comment:Desirable LDL: less than 100 mg/dLNear Optimal/Above Optimal LDL: 110- 129 mg/dLBorderline High LDL: 130-159 mg/dLHigh LDL: 160-189 mg/dLVery High LDL: greater than or equal to 190 mg/dL HDL Cholesterol 45 >40 mg/dL [facility] Comment:Desirable HDL: great er than 40 mg/dL Note: This HDL assay may give artificially low results in patients with liver disease. 12/29/2024 8:46 AM EDT 12/29/2024 8:50 AM EDT Generic External Data Provider LAB BLOOD ORDERAB LES Final Result [facility] [address] [place] [address] [phone] * HEPATITIS C AB W/REFL TO HCV RNA, QN, PCR (11/13/2020 2:31 PM EST) HEPATITIS C ANTIBODY NON-REACT [place] NON-REACT [facility] INDEX 0.01 <1.00 [facility] Comment: HCV antibody was non-reactive. There is no laboratory evidence of HCV infection. In most cases, no further action is required. However, if recent HCV exposure is suspected, a test for HCV RNA (test code 10890) is suggested. For additional information please refer to http://education.Telly/faq/LVA39c5 (This link is being provided for informational/ educational purposes only.) 11/13/2020 2:31 PM EST Stefany Griffiths MD HISTORICAL/NON ORDERABLE LABS Final Result [facility] [address] * DIGITAL BILATERAL SCREEN 1 (06/22/2018 [...] Eye Exam (04/20/2012) Eye Exam Normal Normal [facility] External Provider HEALTH MAINTENANCE Final Result from Last 3 Months or Most Recently Relevant to Health Maintenance Insurance [facility] C3 Care Teams Software Maintenance Engineer Relationship Specialty Start Date End Date Name, MD Nolan [address] [place] [phone] PCP - General Family Medicine 06/13/18 Aveanna 04/24/25
--- OUTSIDE RECORDS SUMMARY | 2025-05-26 18:50 | XMS_ITS | Encounter Summary ---
Author Organization [employer] Address [address] [facility] 7t [place] [address] Care Team Providers Care Synthetic Filament Spinner Name Role Phone Name, Nolan PADILLA Primary Care Provider [phone] Reason for Visit * Reason Comments Med Refill Encounter Details Date Type Department Care Team (Late st Contact Info) Description 08/23/2024 Refill [facility] [address] [place], [place] [phone] Name, MD Nolan [address] [place] [address] Diabetic polyneuropathy associated with type 2 diabetes [...] Description 06/11/2025 11:30 AM EDT Office Visit [facility] [address] [place] [address] NameNolan MD [address] [place] [address] 09/24/2025 11:00 AM EST Office Visit [facility] [address] [place] [address] Charles, Nalini, OD [address] [place] [address] documented as of this encounter Visit Diagnoses Diagnosis Diabetic polyneuropathy associated with type 2 diabetes mellitus (CMS/HCC) documented in this encounter Additional Health Concerns Assessment Noted Time PHQ-9 Depression Total Score: 7 04/18/20 23 10:20 AM EDT documented as of this encounter Care Teams Synthetic Filament Spinner Relationship Specialty Start Date End Date NameNolan MD [address] [place] [phone] PCP - General Family Medicine 06/13/18 Shanell 04/24/25 documented as of this encounter
== END 2025-05-26 13:53 | disposition home or self-care (01) ==
LOC: HO.HKA 13:36
PROVIDERS: PCP Internal Medicine Geriatric Medicine; Visit Provider Internal Medicine Hypertension Specialist
DX: N18.32 Chronic kidney disease, stage 3b (principal); E11.21 Type 2 diabetes mellitus with diabetic nephropathy; Z79.4 Long term (current) use of insulin; E87.1 Hypo-osmolality and hyponatremia; E87.20 Acidosis, unspecified; I95.9 Hypotension, unspecified
CPT/HCPCS: 99214

== ENCOUNTER → 2025-05-26 13:35 | Outpatient (BNVA) | payer MEDICAID, SELFPAY | PROVIDERS: PCP Internal Medicine Geriatric Medicine; Visit Provider Internal Medicine Hypertension Specialist | DX: N18.32 Chronic kidney disease, stage 3b (principal); E11.21 Type 2 diabetes mellitus with diabetic nephropathy; E87.1 Hypo-osmolality and hyponatremia; E87.20 Acidosis, unspecified; I95.9 Hypotension, unspecified; E87.5 Hyperkalemia | CPT/HCPCS: 99212 ==

== ENCOUNTER 2025-06-11 10:34 | Outpatient (REF) | payer MEDICAID, SELFPAY ==
--- OUTSIDE RECORDS SUMMARY | 2025-06-11 11:30 | XMS_ITS | Encounter Summary ---
Author Organization [employer] Address 75 [facility] 7t [place] [address] Care Team Providers Care Warehouse Manager Name Role Phone Name, Nolan PADILLA Primary Care Provider [phone] Reason for Visit * Reason Comments Diabetes Encounter Details Date Type Department Care Team ([facility] st Contact Info) Description 06/11/2025 11:30 AM EDT Office Visit [facility] [address] [place], [place] [phone] Name, MD Nolan [address] [place] [address] Type 2 diabetes mellitus with hyperglycemia, without long-term current use of insulin (HCC) (Primary Dx); Low blood pressure reading; Polyneuropathy; Vaccine refused by patient Social History Tobacco Use Types Packs/Day Years [...] Sign Reading Time Taken Comments Blood Pressure 118/68 06/11/2025 11:36 AM EDT Pulse 81 06/11/2025 11:36 AM EDT Temperature 36.2 C (97.2 F) 06/11/2025 11:36 AM EDT Respiratory Rate 14 06/11/2025 11:36 AM EDT Oxygen Saturation 98% 06/11/2025 11:36 AM EDT Inhaled Oxygen Concentration - - Weight 57.6 kg (127 lb) 06/11/2025 11:36 AM EDT Height 160 cm (5' 3 ) 06/11/2025 11:36 AM EDT Body Mass Index 22.5 06/11/2025 11:36 AM EDT documented in this encounter Plan of Treatment Upcoming Encounters Date Type Department Care Team (Late st Contact Info) Description 07/11/2025 10:30 AM EDT Medication Management [facility] [address] [place] [phone] Elizabeth Perez, AlyssaD [address] [place] [address] 09/08/2025 11:00 AM EST Office Visit [facility] [address] [place] [phone] Name, MD Nolan [address] [place] [address] 09/24/2025 11:00 AM EST Office Visit [facility] [address] [place] [address] Nalini Soto, OD [address] [facility] [place] [address] documented as of this encounter Procedures Procedure Name Priority Date/Time Associated Diagnosis Comments POCT GLUCOSE Routine 06/11/2025 11:44 AM EDT Type 2 diabetes mellitus with hyperglycemia, without long-term current use of insulin (HCC) documented in this encounter Results * (ABNORMAL) POCT Glucose (06/11/2025 11:44 AM EDT) Glucose Blood, POC 407(A) 60 - 200 mg/dL QC Media Lot # [id number] Lot# Expiration Date Blood Capillary blood specimen / Unknown 06/11/2025 11:44 AM EDT Nolan Blevins MD POINT OF CARE TEST ENTER/EDIT OR DERABLES Final Result documented in this encounter Visit Diagnoses Diagnosis Type 2 diabetes mellitus with hyperglycemia, without long-term current use of insulin (HCC)- Primary Low blood pressure reading Nonspecific low blood pressure reading Polyneuropathy Unspecified hereditary and idiopathic peripheral neuropathy Vaccine refused by patient documented in this encounter Additional Health Concerns Assessment Noted Time PHQ-9 Depression Total Score: 7 04/18/20 23 10:20 AM EDT documented as of this encounter Care Teams Warehouse Manager Relationship Specialty Start Date End Date Name, MD Nolan [address] [place] [address] PCP - General Family Medicine 06/13/18 Aveanna 04/24/25 documented as of this encounter
--- OUTSIDE RECORDS SUMMARY | 2025-06-11 12:10 | XMS_ITS | Encounter Summary ---
Author Organization [employer] Address [address] [facility] 7t [place] [address] Care Team Providers Care Ground Services Instructor Name Role Phone Name, Nolan PADILLA Primary Care Provider [phone] Reason for Visit * Reason Onset Date Comments Med Refill 07/03/2024 Encounter Details Date Type Department Care Team (Late st Contact Info) Description 07/03/2024 Telephone [facility] [address] [place], [place] [phone] Name, MD Nolan [address] [place] [address] Med Refill Social History Tobacco Use Types [...] with 1 refill. * Telephone Encounter - Jonhny Mccarty - 07/03/2024 9:34 AM EDT TC from pt requesting medication refill. Medications needing refill: atorvastatin (Lipitor) 20 MG tablet To be sent to: [facility] - [place], [place] - [address] [place] [address] documented in this encounter Plan of Treatment Upcoming Encounters Date Type Department Care Team ([facility] st Contact Info) Description 07/11/2025 10:30 AM EDT Medication Management [facility] [address] [place] [phone] Elizabeth Perez, PharmD [address] [place] [address] 09/08/2025 11:00 AM EST Office Visit [facility] [address] [place] [address] Name, MD Nolan [address] [place] [address] 09/24/2025 11:00 AM EST Office Visit [facility] [address] [place] [address] Nalini Soto, OD [address] [place] [address] documented as of this encounter Visit Diagnoses Not on filedocumented in this encounter Additional Health Concerns Assessment Noted Time PHQ-9 Depression Total Score: 7 04/18/20 23 10:20 AM EDT documented as of this encounter Care Teams Ground Services Instructor Relationship Specialty Start Date End Date Name, MD Nolan [address] [place] [address] PCP - General Family Medicine 06/13/18 Aveanna 04/24/25 documented as of this encounter
--- OUTSIDE RECORDS SUMMARY | 2025-06-11 12:10 | XMS_ITS | Encounter Summary ---
Author Organization [employer] Address 75 [facility] 7t [place] [address] Care Team Providers Care Db2 Systems Programmer Name Role Phone Name, Nolan PADILLA Primary Care Provider [phone] Encounter Details Date Type Department Care Team (Latest Contact Info) Description 09/07/2020 Abstract [facility] CON[facility] Dental, Provider, DDS Social History Tobacco [...] Description 07/11/2025 10:30 AM EDT Medication Management [facility] [address] [place] [address] Elizabeth Perez, PharmD [address] [place] [address] 09/08/2025 11:00 AM EST Office Visit [facility] [address] [place] [address] Name, MD Nolan [address] [place] [address] 09/24/2025 11:00 AM EST Office Visit [facility] [address] [place] [address] Nalini Soto, OD [address] [place] [address] documented as of this encounter Visit Diagnoses Not on filedocumented in this encounter Care Teams Db2 Systems Programmer Relationship Specialty Start Date End Date Name, MD Nolan [address] [place] [address] PCP - General Family Medicine 06/13/18 Aveanna 04/24/25 documented as of this encounter
--- OUTSIDE RECORDS SUMMARY | 2025-06-11 12:10 | XMS_ITS | Encounter Summary ---
Author Organization [employer] Address 75 [facility] 7t [place] [address] Care Team Providers Care Assistant Track And Field Coach Name Role Phone Name, Nolan PADILLA Primary Care Provider [phone] Reason for Visit * Reason Comments Med Refill Encounter Details Date Type Department Care Team (Late st Contact Info) Description 09/21/2023 Refill [facility] [address] [place], [place] [phone] Name, MD Nolan [address] [place] [address] Hypertension, unspecified type Social History Tobacco Use [...] Description 07/11/2025 10:30 AM EDT Medication Management [facility] [address] [place] [address] Elizabeth Perez, PharmD [address] [place] [address] 09/08/2025 11:00 AM EST Office Visit [facility] [address] [place] [address] NameNolan MD [address] [place] [address] 09/24/2025 11:00 AM EST Office Visit [facility] OPT[facility] [address] [place] [address] Charles, Nalini, OD [address] [place] [address] documented as of this encounter Visit Diagnoses Diagnosis Hypertension, unspecified type documented in this encounter Additional Health Concerns Assessment Noted Time PHQ-9 Depression Total Score: 7 04/18/20 23 10:20 AM EDT documented as of this encounter Care Teams Assistant Track And Field Coach Relationship Specialty Start Date End Date NameNolan MD [address] [place] [phone] PCP - General Family Medicine 06/13/18 Aveanna 04/24/25 documented as of this encounter
--- OUTSIDE RECORDS SUMMARY | 2025-06-11 12:10 | XMS_ITS | Encounter Summary ---
Author Organization [email or web address] Address [address] [facility] 7t [place] [address] Care Team Providers Care Central Processing Technician Name Role Phone Name, Nolan PADILLA Primary Care Provider [phone] Reason for Visit * Reason Onset Date Comments Reschedule 10/04/2023 Encounter Details Date Type Department Care Team (Late st Contact Info) Description 10/04/2023 Telephone [facility] [address] [place], [place] [phone] Name, MD Nolan [address] [place] [address] Reschedule Social History Tobacco Use Types Packs/Day [...] daughter requesting r/s f/u appt from 10/06/23, continuity writer 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 documented in this encounter Plan of Treatment Upcoming Encounters Date Type Department Care Team (Late st Contact Info) Description 07/11/2025 10:30 AM EDT Medication Management [facility] [address] [place] [address] MarisoliaElizabeth, PharmD [address] [place] [address] 09/08/2025 11:00 AM EST Office Visit [facility] [address] [place] [address] Name, MD Nolan [address] [place] [address] 09/24/2025 11:00 AM EST Office Visit [facility] OPT[facility] [address] [place] [address] Nalini Soto, OD [address] [place] [address] documented as of this encounter Visit Diagnoses Not on filedocumented in this encounter Additional Health Concerns Assessment Noted Time PHQ-9 Depression Total Score: 7 04/18/20 23 10:20 AM EDT documented as of this encounter Care Teams Central Processing Technician Relationship Specialty Start Date End Date Name, MD Nolan [address] [place] [address] PCP - General Family Medicine 06/13/18 Aveanna 04/24/25 documented as of this encounter
--- OUTSIDE RECORDS SUMMARY | 2025-06-11 12:10 | XMS_ITS | Encounter Summary ---
Author Organization [employer] Address [address] [facility] 7t [place] [address] Care Team Providers Care Entry Level Accounting Clerk Name Role Phone Name, Nolan PADILLA Primary Care Provider [phone] Encounter Details Date Type Department Care Team (Latest Contact Info) Description 06/11/2025 Travel Social History Tobacco Use Types Packs/Day Years [...] Description 07/11/2025 10:30 AM EDT Medication Management [facility] [address] [place] [address] Elizabeth Perez, PharmD [address] [place] [address] 09/08/2025 11:00 AM EST Office Visit [facility] [address] [place] [address] Name, MD Nolan [address] [place] [address] 09/24/2025 11:00 AM EST Office Visit [facility] OPTOMETRY [address] [place] [address] Charles, Nalini, OD [address] [place] [address] documented as of this encounter Visit Diagnoses Not on filedocumented in this encounter Additional Health Concerns Assessment Noted Time PHQ-9 Depression Total Score: 7 04/18/20 23 10:20 AM EDT documented as of this encounter Care Teams Entry Level Accounting Clerk Relationship Specialty Start Date End Date NameNolan MD [address] [place] [phone] PCP - General Family Medicine 06/13/18 Shanell 04/24/25 documented as of this encounter
--- OUTSIDE RECORDS SUMMARY | 2025-06-11 12:11 | XMS_ITS | Encounter Summary ---
Author Organization [employer] Address [address] [place] [address] [address] [place] [address] Care Team Providers Care Astronaut Mission Specialist Name Role Phone Name, Nolan PADILLA Primary Care Provider [phone] Reason for Visit * Reason Comments Med Refill Encounter Details Date Type Department Care Team (Late Contact Info) Description 04/25/2023 Refill [facility] [address] [place], [place] [phone] Marlys Romero FNP Type 2 diabetes mellitus without complication, unspecified whether technician terminal and repeater insulin use ([facility]) Social History Tobacco Use Types Packs/Day Years [...] Department Care Team (Late Contact Info) Description 07/11/2025 10:30 AM EDT Medication Management [facility] [address] [place], [place] [phone] Elizabeth Perez, PharmD [address] [place], [place] [phone] 09/08/2025 11:00 AM EST Office Visit [facility] [address] [place] [address] Name, MD Nolan [address] [place] [address] 09/24/2025 11:00 AM EST Office Visit [facility] [address] [place] [address] Charles, Nalini, OD [address] [place] [address] documented as of this encounter Visit Diagnoses Diagnosis Type 2 diabetes mellitus without complication, unspecified whether usp insulin use documented in this encounter Additional Health Concerns Assessment Noted Time PHQ-9 Depression Total Score: 7 04/18/20 23 10:20 AM EDT documented as of this encounter Care Teams Astronaut Mission Specialist Relationship Specialty Start Date End Date Name, MD Nolan [address] [place] [address] PCP - General Family Medicine 06/13/18 [place] 04/24/25 documented as of this encounter
--- OUTSIDE RECORDS SUMMARY | 2025-06-11 12:11 | XMS_ITS | Clinical Summary ---
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 90 tablet 024 Active Additional Information Patient not taking.Reported on 03/07/2025 docusate sodium (Colace) 100 MG capsule Active Alcohol Swabs (Alcohol Prep) 70 % padsIndications:C ontrolled diabetes mellitus type 2 with complications, unspecified whether half-way insulin use USE DIRECTED THREE TIMES DAILY 100 each Active senna (Senokot) 8.6 MG tablet Take 2 tablets by mouth at bedtime. Active famotidine (Pepcid) 20 MG tablet Take 20 mg by mouth at bedtime. Active TRUEplus Lancets 33G miscIndications:T ype 2 diabetes mellitus with other specified complication, with long-term current use of insulin ([facility]) USE DIRECTED TO TEST BLOOD SUGAR EVERY DAY 100 each Active ondansetron ODT (Zofran-ODT) 4 MG disintegrating tablet Take 1 tablet by mouth every 6 (six) hours if needed for nausea. Active hydrocortisone (Anusol-HC) 2.5 % rectal cream Insert 1 Application into the rectum in the morning. Active insulin pen needle (Easy Touch Pen [place]) 31G x 6 mm miscIndications:T ype 2 diabetes mellitus with hyperglycemia, without long-term current use of insulin ([facility]) USE DIRECTED 100 each Active furosemide (Lasix) 20 MG tabletIndications :Lower extremity edema Take 1 tablet (20 mg) by mouth Once per day. 30 tablet 2 2025 Active Lantus SoloStar 100 UNIT/ML penIndications:Ty pe 2 diabetes mellitus with other specified complication, with long-term current use of insulin ([facility]) Inject 20 Units under the skin at bedtime. 3 mL 2025 Active insulin lispro (HumaLOG KWIKPEN) 100 UNIT/ML injection Inject 5 Units under the skin with breakfast, with lunch, and with evening meal. 1 each Active losartan (Cozaar) 25 MG tablet Take 1 tablet (25 mg) by mouth Once per day. 30 tablet 2025 Active gabapentin (Neurontin) 100 MG capsuleIndication [...] complication, with long-term current use of insulin ([facility]) TEST BLOOD SUGAR ONCE DAILY 50 strip 025 Active melatonin 3 MG tablet TAKE 1 TABLET BY MOUTH AT BEDTIME NEEDED FOR SLEEP 30 tablet 025 Active FLUoxetine (PROzac) 10 MG capsuleIndication s:Depression, unspecified depression type TAKE 1 CAPSULE BY MOUTH EVERY MORNING 30 capsule 025 Active mirtazapine (Remeron) 7.5 MG tabletIndications :Depression, unspecified depression type TAKE 1 TABLET BY MOUTH AT BEDTIME 30 tablet 1 Active FLUoxetine (PROzac) 10 MG capsuleIndication s:Depression, unspecified depression type TAKE 1 CAPSULE BY MOUTH EVERY MORNING 30 capsule 1 025 2024 Discontinued mirtazapine (Remeron) 7.5 MG tabletIndications :Depression, unspecified depression type TAKE 1 TABLET BY MOUTH AT BEDTIME 30 tablet 1 025 2024 Discontinued Active Problems Problem Noted [...] in about 1 week Cerebrovascular accident (CVA) ([facility]) Overview (03/13/2025): 01/2025 at [facility] during hospitalization for sepsis and ischemic colitis, [...] Sujit Calhoun MD 01/20/2025 01:31 PM EDT Adult failure to thrive 01/08/2025 CKD (chronic kidney disease) 01/08/2025 Overview (01/08/2025): Most likely due to underlying diabetic kidney disease. Poorly controlled diabetes mellitus 01/08/2025 Hypotension 01/08/2025 Depression 01/08/2025 Proteinuria due to type 2 diabetes mellitus 04/2024 Auditory hallucination 11/14/2023 Diabetic polyneuropathy asso ciated [...] seek services. PLAN: 1. Follow up with [facility]: Not recommended for follow-up 2. Patient goal [...] seek services. PLAN: 1. Follow up with [facility]: Not recommended for follow-up 2. Patient goal [...] (acute kidney injury) 01/08/2025 Chronic constipation 01/08/2025 025 Chronic hyperglycemia 01/08/20252024 Ear ache 01/08/2025 03/13/2025 Early satiety 01/08/2025 03/13/2025 Overview (01/08/2025): Diabetes, early satiety- Heartburn 01/08/2025 03/13/2025 Hyperkalemia 01/08/2025 03/13/2025 Hyperosmolar hyperglycemic s oden (HHS) ([facility]) 01/08/2025 03/13/2025 Hyponatremia 01/08/2025 03/13/2025 Overview (01/08/2025): [...] smoking Seemingly depressed- Esophagitis 01/08/2025 03/13/2025 Sepsis ([facility]) 01/08/2025 03/13/2025 Smoker unmotivated to quit 01/08/2025 [...] Encounters Date Type Department Care Team Description 06/11/2025 11:30 AM EDT Office Visit [facility] [address] [place] [address] [phone] Name, MD Nolan Type 2 diabetes mellitus with hyperglycemia, without long-term current use of insulin ([facility]) (Primary Dx); Low blood pressure reading; Polyneuropathy; Vaccine refused by patient 06/11/2025 Travel 06/04/2025 9:30 AM EDT Telemedicine [address] [address] Estee Vizcaino, AMISH Primary hypertension 06/04/2025 Travel 05/27/2025 Patient Outreach [address] [address] Nolan Blevins MD Care Coordination ([facility] Courtney Liu, Sdoh f/u_closed ) 05/27/[address] [address] Nolan Blevins MD Nurse Triage 05/14/2025 Refill [facility] [address] [place] [address] Nolan Blevins MD Depression, unspecified depression type 05/09/2025 Patient Outreach [address] [address] Nolan Blevins MD Care Coordination ([facility] Courtney Liu, TC #2 Sdoh f/u_lvm) 05/08/2025 Patient Outreach [facility] [address] [place] [address] Nolan Blevins MD Care Coordination ([facility] f/u call- LVM. Case close due to loss of contact) 05/06/2025 Patient Outreach [facility] [address] [place] [address] Nolan Blevins MD 05/06/2025 Refill [facility] [address] [place] [address] Nolan Blevins MD Type 2 diabetes mellitus with other specified complication, with long-term current use of insulin ([facility]/HCC) 04/24/[address] [address] Nolan Blevins MD 04/24/2025 Patient Outreach [address] [address] Nolan Blevins MD Care Management ([facility] TC #4-lvm) 04/21/2025 Refill [facility] [address] [place], [place] [phone] Nolan Blevins MD Hypertension, unspecified type; Mood disorder (CMS/HCC); Depression, unspecified depression type 04/18/2025 Telephone [facility] [address] [place] [address] [facility] 04/10/2025 1:00 PM EDT Telemedicine [facility] [address] [place] [address] Estee Vizcaino, AMISH Type 2 diabetes mellitus with hyperglycemia, without long-term current use of insulin (CMS/HCC); Hypotension, unspecified hypotension type 04/10/2025 Travel 04/10/[address] [address] Nolan Blevins MD 04/09/2025 Patient Outreach [address] [address] Nolan Blevins MD Care Management ([facility] TC #3-lvm) 04/08/[address] [address] Nolan Blevins MD 04/04/[address] [address] Nolan Blevins MD 04/02/2025 2:00 PM EDT Office Visit [address] [address] Nolan Blevins MD Type 2 diabetes mellitus with other specified complication, with long-term current use of insulin ([facility]) (Primary Dx); Polyneuropathy; Low serum albumin; Chronic kidney disease, unspecified CKD stage; Primary hypertension 04/02/2025 Travel 04/01/[address] [address] Alexus Mckeon, COUNTRY PRINTER APPRENTICE Follow-up 03/31/2025 Patient Outreach [facility] [address] [place], [place] [phone] Nolan Blevins MD 03/31/2025 Refill [facility] [address] [place] [address] Nolan Blevins MD 03/31/2025 Telephone [facility] [address] [place] [address] Nolan Blevins MD Medication Question 03/26/2025 Orders Only GENERIC EXTERNAL DATA DEPARTMENT Provider, Generic External Data 03/26/2025 Patient Outreach [facility] [address] [place] [address] Nolan Blevins MD 03/26/2025 Patient Outreach [facility] [address] [place] [address] Nolan Blevins MD Care Coordination ([facility] Leanne Ngo f/u call_unable to lvm ) 03/26/2025 Patient Outreach [facility] [address] [place] [address] Nolan Blevins MD Care Coordination ([facility] f/u call- LVM) 03/21/2025 10:00 AM EDT Telemedicine [address] [address] Sandra Fernandez RN Hypotension, unspecified hypotension type [I95.9]; Type 2 diabetes mellitus with hyperglycemia, without long-term current use of insulin ([facility]) [E11.65] 03/21/2025 Results Follow-Up [address] [address] Edith Flores MD Culture, Urine, Routine 03/21/2025 Orders Only [address] [address] Edith Flores MD Urinary tract infection without hematuria, site unspecified (Primary Dx) 03/21/2025 Telephone [facility] [address] [place] [phone] Nolan Blevins MD 03/21/2025 Travel 03/19/2025 Patient Outreach [facility] [address] [place] [address] Nolan Blevins MD 03/18/2025 2:00 PM EDT Office Visit [facility] [address] [place] [address] Edith Flores MD UTI symptoms; Lower extremity edema; Hypokalemia 03/18/2025 Orders Only [address] [address] Edith Flores MD 03/18/2025 Travel 03/18/[address] [address] Nolan Blevins MD Nurse Triage 03/16/2025 Refill [facility] [address] [place] [address] Cindy Lainez DO Type 2 diabetes mellitus with hyperglycemia, without long-term current use of insulin ([facility]) 03/13/2025 10:00 AM EDT Office Visit [address] [address] Nolan Blevins MD Type 2 diabetes mellitus with other specified complication, with long-term current use of insulin ([facility]) (Primary Dx); Low blood pressure reading; Anemia, unspecified type; Stage 3 chronic kidney disease, unspecified whether stage 3a or 3b CKD ([facility]); Wheelchair dependence; Ischemic colitis ([facility]) 03/13/2025 Results Follow-Up [address] [address] Nolan Blevins MD POCT Glucose, POCT HGB A1C, CBC auto differential, Additional followed-up results: 3 03/12/2025 Patient Outreach [facility] [address] [place] [address] Nolan Blevins MD Care Coordination ([facility] f/u call- LVM) 03/12/[address] [address] Heather Smith MA chart prep from Last 3 Months Immunizations Immunization Administration [...] Mass Index 22.5 06/11/2025 11:36 AM EDT Plan of Treatment Upcoming Encounters Date Type Department Care Team (Late st Contact Info) Description 07/11/2025 10:30 AM EDT Medication Management [facility] [address] [place] [address] Elizabeth Perez, PharmD [address] [place] [address] 09/08/2025 11:00 AM EST Office Visit [facility] [address] [place] [address] Name, MD Nolan [address] [place] [address] 09/24/2025 11:00 AM EST Office Visit [facility] [address] [place] [address] Charles, Nalini, OD [address] [place] [address] Health Maintenance Due Date Last Done Comments [...] 2023 Dental X-Ray: Full Mouth 08/18/2023 08/17/2020, 05/2016 Depression Screening 04/18/2024 04/18/2023, 04/18/20 COVID-19 Vaccine ( season) 2025 06/11/2021, 05/21/2021 Influenza Vaccine (#1) 2025 , 07/13/2021, 06/21/2018, Additional history exists Diabetes: Foot Exam 05/20/2025 05/20/2024, 05/20/2024, 05/20/2024, Additional history exists Eye Exam 07/03/2025 07/03/2024, 06/12, 07/03/2024, Additional history exists Diabetes: Hemoglobin A1C 09/13/2025 025, 08/22/2024, 07/15/2024, Additional history exists Lipid Panel 12/29/2025 12/29/2024, 030 01/2024, 04/18/2023, Additional history exists SDOH Screening 03/03/2026 03/03/2025 Alcohol/Substance Use Screening 03/13/2026 03/13/2025 Disability Screening 03/13/2026 03/13/2025 Tobacco Screening 06/11/2026 06/11/2025 Colonoscopy 03/13/2028 03/13/2018 Colorectal Cancer Screening 03/13/2028 [...] hyperglycemia, without long-term current use of insulin ([facility]) GLUCOSE, WHOLE BLOOD Routine 03/26/2025 5:16 PM [...] complication, with long-term current use of insulin ([facility]) Low blood pressure reading Anemia, unspecified type [...] ESTABLISHED PATIENT Routine 05/19/2022 12:00 AM EDT ZZZ HISTORICAL HEPATITIS C AB W/REFL TO [...] Relevant to Health Maintenance Results * (ABNORMAL) POCT Glucose (06/11/2025 11:44 AM EDT) Only the most recent of2 resultswithin the time period is included. Glucose Blood, POC 407(A) 60 - 200 mg/dL QC Media Lot # [id number] Lot# Expiration Date Blood Capillary blood specimen / Unknown 06/11/2025 11:44 AM EDT us Nolan Name MD POINT OF CARE TEST ENTER/EDIT OR DERABLES Final Result * (ABNORMAL) Glucose, Whole Blood (03/26/2025 5:16 PM EDT) [facility] Signature Glucose, Whole Blood 294(H) 60 - 115 mg/dL [facility] Comment:METER #: [id number] 03/26/2025 5:16 PM EDT 03/26/2025 5:20 PM EDT us Generic External Data Provider LAB BLOOD ORDERAB LES Final Result [facility] [address] [place] [phone] * Lower Extremity Venous Duplex (03/26/2025 4:15 PM EDT) 03/26/2025 4:15 PM EDT Narrative [facility] - 03/26/2025 4:29 PM EDT [address] [address] Ultrasound Report Signed Patient: Rita Page MR#: [id number] : 1965 Acct:[id number] Age/Sex: 59 / F ADM Date: 03/26/25 Loc: HO.ED Attending Dr: Ordering Physician: Carli Buenrostro Date of Service: 03/26/25 Procedure(s): US venous duplex LE LT Accession Number(s): [id number] cc: Carli Buenrostro; Name,Nolan PADILLA EXAMINATION: US [...] 03/26/25 1627 DD/ 1615 TD/TT: 03/26/25 1620 Dairy Farm Operator: Procedure Note Donotuseinterpreter, Image - 03/26/2025 [place] [address] Ultrasound Report Signed Patient: Maxx RazaCarlos EduardoR#: [id number] : 1965Acct:[id number] Age/Sex: 59 / FADM Date: 03/26/25 Loc: .ED Attending Dr: Ordering Physician: Carli Buenrostro Date of Service: 03/26/25 Procedure(s): US venous duplex LE LT Accession Number(s): [id number] cc: Carli Buenrostro; Gen,Nolan PADILLA EXAMINATION: US TRIPLEX LOWER EXTREMITY, LEFT [...] 03/26/25 1627 DD/ 1615 TD/TT: 03/26/25 1620 Dairy Farm Operator: [facility] External Provider CV VASC ULAR PROCEDURES Final Result [facility] [address] [place], [place] [phone] * (ABNORMAL) CBC auto differential (03/26/2025 1:48 PM EDT) Only the most recent of2 resultswithin the time period is included. White Blood Count 6.0 4.8 - 10.8 X10*3/uL [facility] Red Blood Count 2.54(L) 4.20 - 5.50 X10*6/uL [facility] Hemoglobin 7.8(L) 12.0 - 16.0 g/dl [facility] Hematocrit 24.0(L) 37.0 - 47.0 % [facility] Mean Corpuscular Volume 94.5 80.0 - 98.0 fL [facility] Mean Corpuscular Hemoglobin 30.7 27.0 - 33.0 pg [facility] Mean Corpuscular HGB Conc 32.5 31.0 - 35.0 g/dl [facility] Red Cell Distribution Width 16.2(H) 11.0 - 16.0 % [facility] Platelet Count 401(H) 160 - 400 X10*3/uL [facility] Mean Platelet Volume 8.2(L) 9.4 - 12.3 fL [facility] Neutrophils Percent Auto 45.2 45 - 73 % [facility] Imm Gran Pct Auto 0.5(H) 0.0 - 0.4 % [facility] Lymphocytes Percent Auto 44.9(H) 20 - 40 % [facility] Monocytes Percent Auto 7.4 2 - 11 % [facility] Eosinophils Percent Auto 1.5 0 - 4 % [facility] Basophils Percent Auto 0.5 0 - 2 % [facility] NRBC Pct Auto 0.0 0.0 - 0.2 /100WBC [facility] Neutrophils Absolute Auto 2.7 2.0 - 8.3 x10*3/uL [facility] Imm Gran Abs Auto 0.03 0.00 - 0.03 X10*3/uL [facility] Lymphocytes Absolute Auto 2.7 1.2 - 4.9 X10*3/uL [facility] Monocytes Absolute Auto 0.4 0.1 - 1.2 X10*3/uL [facility] Eosinophils Absolute Auto 0.1 0.0 - 0.4 X10*3/uL [facility] Basophils Absolute Auto 0.0 0.0 - 0.2 X10*3/uL [facility] NRBC Abs Auto 0.000 0.0 - 0.012 X10*3/uL [facility] 03/26/2025 1:48 PM EDT 03/26/2025 1:51 PM EDT us Generic External Data Provider LAB BLOOD ORDERAB LES Final Result [facility] [address] [place], [place] [phone] * (ABNORMAL) Magnesium (03/26/2025 1:48 PM EDT) Magnesium 1.5(L) 1.6 - 2.6 mg/dL [facility] 03/26/2025 1:48 PM EDT 03/26/2025 1:51 PM EDT us Generic External Data Provider LAB BLOOD ORDERAB LES Final Result [facility] [address] [place] [phone] * (ABNORMAL) Comprehensive Metabolic Panel (03/26/2025 1:48 PM EDT) Only the most recent of2 resultswithin the time period is included. Sodium 136 135 - 145 mmol/L [facility] Potassium 4.2 3.3 - 5.1 mmol/L [facility] Chloride 105 96 - 108 mmol/L [facility] Carbon Dioxide 26 22 - 29 mmol/L [facility] Anion Gap 9(L) 12 - 20 [facility] Urea Nitrogen (BUN) 16 9 - 16 mg/dL [facility] Creatinine, Serum 0.74 0.5 - 1.4 mg/dL [facility] Creatinine Clr Calc Pharmacy 62.8 [facility] Comment:Provided height and weight: 160.02 cm,49.895 kg.eGFR (calculated from the MDRD study equation) and eCrCl(calculated from the Cockcroft-Gault equation) are based ondifferent parameters and may not yield comparable results.If eCrCl result is absurd, please check patient'sheight/weight. Estimated Glomerular Filt Rate >60 [facility] Comment:Chronic Kidney Disea se: Estimated GFR < 60 mL/min/[id number] Kidney Disease: Estimated GFR < 15 mL/min/1.73m2 Glucose 336(H) 60 - 115 mg/dL [facility] Calcium 8.2(L) 8.4 - 10.2 mg/dL [facility] Bilirubin, Total 0.3 0.0 - 1.0 mg/dL [facility] Aspartate Amino Transferase 18 5 - 31 U/L [facility] Alanine Aminotransferase 6 0 - 31 U/L [facility] Total Protein 5.9(L) 6.5 - 8.0 g/dL [facility] Albumin Level 2.6(L) 3.5 - 5.0 g/dL [facility] Alkaline Phosphatase 155(H) 39 - 117 U/L [facility] 03/26/2025 1:48 PM EDT 03/26/2025 1:51 PM EDT us Generic External Data Provider LAB BLOOD ORDERAB LES Final Result [facility] [address] [place] [phone] * Culture, Urine, Routine (03/18/2025 6:06 PM EDT) Urine Urine specimen obtained by clean catch procedure / Unknown 03/18/2025 6:06 PM EDT 03/18/2025 6:06 PM EDT Comment:UACC Narrative [facility] - 03/21/2025 8:01 AM EDT Citrobacter [...] NERAL ORDERABLES Final Result Performing Organization Address [facility]/ZIP Co de Phone Number [facility] [address] [place] [phone] * (ABNORMAL) Urinalysis, Complete, with Reflex to Culture (03/18/2025 12:00 AM EDT) Color Urine Yellow [facility] Appearance Urine Cloudy [facility] PH 7.5 5.0 - 9.0 [facility] Glucose Urine UA Negative Negative mg/dL [facility] Urine Blood Negative Negative [facility] Specific [place] - Urine 1.010 1.005 - 1.025 [facility] Urine Protein 30 (1+)(A) Neg-Trace mg/dL [facility] Urine Ketones Negative Negative mg/dL [facility] Nitrite Urine Negative Negative [facility] Leukocyte Esterase Urine Large (3+)(A) Negative [facility] RBC Urine 0-2 0 - 2 /HPF [facility] Urine WBC >50(A) 0 - 5 /HPF [facility] Urine Squamous Epithelial Cell 0-2 0 - 2 /HPF [facility] Urine Bacteria 4+ None Seen [facility] Hyaline Casts, Urine 3-5 0 - 2 /LPF [facility] Urine 03/18/2025 03/18/2025 Narrative [facility] - 03/18/2025 5:44 PM EDT Urine, Clean Catch us Edith Man MD LAB URINE ORDERABLES Final Result Performing Organization Address [facility]/ZIP Co de Phone Number [facility] [address] [place] [phone] * (ABNORMAL) Iron And Total Iron Binding Capacity (03/13/2025 10:58 AM EDT) Iron 41 30 - 160 mcg/dL [facility] Total Iron Binding Capacity 81(L) 228 - 428 mcg/dL [facility] Percent Iron Saturation 51(H) 15 - 50 % [facility] Unsaturated Iron Binding 40 ug/dL [facility] Blood Venous blood specimen / Unknown 03/13/2025 10:58 AM EDT 03/13/2025 1:13 PM EDT us Nolan Blevins MD LAB BLOOD ORDERABLES Final Resul t Performing Organization Address City/[facility] Co de Phone Number [facility] [address] [place] [phone] * (ABNORMAL) Ferritin (03/13/2025 10:58 AM EDT) Ferritin 1,060(H) 10 - 250 ng/mL [facility] Blood Venous blood specimen / Unknown 03/13/2025 10:58 AM EDT 03/13/2025 1:13 PM EDT us Nolan Blevins MD LAB BLOOD ORDERABLES Final Resul t Performing Organization Address [facility] Phone Number [facility] [address] [place] [phone] * (ABNORMAL) POCT HGB A1C (03/13/2025 10:18 AM EDT) Hemoglobin A1C 5.9(A) 4.0 - 5.7 % QC Media Lot # [id number] Lot# Expiration Date Blood 03/13/2025 10:1 8 AM EDT us Nolan Blevins MD POINT OF CARE TEST ENTER/EDIT OR DERABLES Final Result * Lipid Panel, Standard (12/29/2024 8:46 AM EDT) Triglycerides 96 <150 mg/dL [facility] Comment:Desirable Triglyceri de: less than 150 mg/dLBorderline High Triglyceride 150-199 mg/dLHigh Triglyceride: 200-499 mg/dLVery High Triglyceride: greater than or equal to 5OO mg/dL Cholesterol 142 <200 mg/dL [facility] Comment:Desirable Cholestero l: less than 200 mg/dLBorderline High Cholesterol: 200-239 mg/dLHigh Cholesterol: greater than 239 mg/dL LDL Cholesterol Calculated 78 <100 mg/dL [facility] Comment:Desirable LDL: less than 100 mg/dLNear Optimal/Above Optimal LDL: 110- 129 mg/dLBorderline High LDL: 130-159 mg/dLHigh LDL: 160-189 mg/dLVery High LDL: greater than or equal to 190 mg/dL HDL Cholesterol 45 >40 mg/dL [facility] Comment:Desirable HDL: great er than 40 mg/dL Note: This HDL assay may give artificially low results in patients with liver disease. 12/29/2024 8:46 AM EDT 12/29/2024 8:50 AM EDT us Generic External Data Provider LAB BLOOD ORDERAB LES Final Result Performing Organization Address [facility] de Phone Number [facility] [address] [place] [phone] * HEPATITIS C AB W/REFL TO HCV RNA, QN, PCR (11/13/2020 2:31 PM EST) HEPATITIS C ANTIBODY NON-REACT [place] NON-REACT [place] [facility] INDEX 0.01 <1.00 [facility] Comment: HCV antibody was non-reactive. There is no laboratory evidence of HCV infection. In most cases, no further action is required. However, if recent HCV exposure is suspected, a test for HCV RNA (test code 68263) is suggested. For additional information please refer to http://education.BoldIQ/faq/QKS92p7 (This link is being provided for informational/ educational purposes only.) 11/13/2020 2:31 PM EST us Stefany Griffiths MD HISTORICAL/NON ORDERABLE LABS Final Result [facility] [address] [place] [phone], * DIGITAL BILATERAL SCREEN 1 (06/22/2018 1:13 [...] Eye Exam (04/20/2012) Eye Exam Normal Normal [facility] External Provider HEALTH MAINTENANCE Final Result from Last 3 Months or Most Recently Relevant to Health Maintenance Insurance [facility] [place] ADULT Care Teams Ski Binding Fitter And Repairer Relationship Specialty Start Date End Date Name, MD Nolan [address] [place] [phone] PCP - General Family Medicine 06/13/18 [place] 04/24/25
--- OUTSIDE RECORDS SUMMARY | 2025-06-11 12:11 | XMS_ITS | Encounter Summary ---
Author Organization [employer] Address [address] [facility] 7t [place] [address] Care Team Providers Care Hook And Eye Machine Operator Name Role Phone Name, Nolan PADILLA Primary Care Provider Reason for Visit * Reason Comments Med Refill Encounter Details Date Type Department Care Team ([facility] st Contact Info) Description 08/23/2024 Refill [facility] MED & PEDS [address] [place], [place] [phone] Justyna Manuel MD [address] [place], [place] [phone] Depression, unspecified depression type; Diabetes mellitus type [...] Description 07/11/2025 10:30 AM EDT Medication Management [facility] [address] [place] [address] Elizabeth Perez, PharmD [address] [place] [address] 09/08/2025 11:00 AM EST Office Visit [facility] [address] [place] [address] NameNolan MD [address] [place] [address] 09/24/2025 11:00 AM EST Office Visit [facility] [address] [place] [address] Charles, Nalini, OD [address] [place] [address] documented as of this encounter Visit Diagnoses Diagnosis Depression, unspecified depression type Diabetes mellitus type 2 in nonobese (HCC) Type II or unspecified type diabetes mellitus without mention of complication, not stated as uncontrolled documented in this encounter Additional Health Concerns Assessment Noted Time PHQ-9 Depression Total Score: 7 04/18/20 23 10:20 AM EDT documented as of this encounter Care Teams Hook And Eye Machine Operator Relationship Specialty Start Date End Date NameNolan MD [address] [place] [phone] PCP - General Family Medicine 06/13/18 Aveanna 04/24/25 documented as of this encounter
--- OUTSIDE RECORDS SUMMARY | 2025-06-11 12:11 | XMS_ITS | Encounter Summary ---
Author Organization [employer] Address [address] [facility] 7t [place] [address] Care Team Providers Care Maintenance Supervisor Name Role Phone Name, Nolan PADILLA Primary Care Provider [phone] Reason for Visit * Reason Onset Date Comments Nurse Triage 07/27/2023 Encounter Details Date Type Department Care Team (Late st Contact Info) Description 07/27/2023 Telephone [facility] MEDICINE [address] [place], [place] [phone] Name, MD Nolan [address] [place] [address] Nurse Triage Social History Tobacco Use Types [...] - 07/27/2023 4:38 PM EST T/C to [phone] to daughter for below message, daughter verbally [...] acuity questions The caller accepted this outcome Turkish Speaker documented in this encounter Plan of Treatment Upcoming Encounters Date Type Department Care Team (Late st Contact Info) Description 07/11/2025 10:30 AM EDT Medication Management [facility] MEDICINE [address] [place] [address] Elizabeth Perez, PharmD [address] [place] [address] 09/08/2025 11:00 AM EST Office Visit [facility] MED[facility]INE [address] [place] [address] Name, MD Nolan [address] [place] [address] 09/24/2025 11:00 AM EST Office Visit [facility] OPTOMETRY [address] [place] [address] Charles, Nalini, OD [address] [place] [address] documented as of this encounter Visit Diagnoses Not on filedocumented in this encounter Additional Health Concerns Assessment Noted Time PHQ-9 Depression Total Score: 7 04/18/20 23 10:20 AM EDT documented as of this encounter Care Teams Maintenance Supervisor Relationship Specialty Start Date End Date NameNolan MD [address] [place] [phone] PCP - General Family Medicine 06/13/18 Shanell 04/24/25 documented as of this encounter
--- OUTSIDE RECORDS SUMMARY | 2025-06-11 12:11 | XMS_ITS | Encounter Summary ---
Author Organization [employer] Address [address] [facility] 7[address] [place] [address] Care Team Providers Care Poultry Picking Machine Tender Name Role Phone Name, Nolan PADILLA Primary Care Provider [phone] Reason for Visit * Reason Comments Med Refill Encounter Details Date Type Department Care Team ([facility] st Contact Info) Description 02/12/2025 Refill [facility] MEDICINE [address] [place], [place] [phone] Name, MD Nolan [address] [place], [place] [phone] Social History Tobacco Use Types Packs/Day Years [...] 07/11/2025 10:30 AM EDT Medication Management [facility] MEDICINE [address] [place] [address] Elizabeth Perez, PharmD [address] [place] [address] 09/08/2025 11:00 AM EST Office Visit [facility] MEDICINE [address] [place] [address] Nolan Blevins MD [address] [place] [address] 09/24/2025 11:00 AM EST Office Visit [facility] OPTOMETRY [address] [place] [address] Charles, Nalini, OD [address] [place] [address] documented as of this encounter Visit Diagnoses Not on filedocumented in this encounter Additional Health Concerns Assessment Noted Time PHQ-9 Depression Total Score: 7 04/18/20 23 10:20 AM EDT documented as of this encounter Care Teams Poultry Picking Machine Tender Relationship Specialty Start Date End Date Nolan Blevins MD [address] [place] [address] PCP - General Family Medicine 06/13/18 Shanell 04/24/25 documented as of this encounter
--- OUTSIDE RECORDS SUMMARY | 2025-06-11 12:11 | XMS_ITS | Encounter Summary ---
Author Organization [employer] Address [address] [facility] [address] [place] [address] Care Team Providers Care Blending Machine Operator Name Role Phone Name, Nolan PADILLA Primary Care Provider [phone] Reason for Visit * Reason Comments Med Refill Encounter Details Date Type Department Care Team (Late st Contact Info) Description 08/23/2024 Refill [facility] MED & PEDS [address] [place], [place] [phone] Name, MD Nolan [address] [place] [address] Diabetic polyneuropathy associated with type 2 diabetes [...] Description 07/11/2025 10:30 AM EDT Medication Management [facility] MED[facility] [address] [place] [address] Elizabeth Perez, PharmD [address] [place] [address] 09/08/2025 11:00 AM EST Office Visit [facility] [address] [place] [address] NameNolan MD [address] [place] [address] 09/24/2025 11:00 AM EST Office Visit [facility] OPTOMETRY [address] [place] [address] Charles, Nalini, OD [address] [place] [address] documented as of this encounter Visit Diagnoses Diagnosis Diabetic polyneuropathy associated with type 2 diabetes mellitus (HCC) documented in this encounter Additional Health Concerns Assessment Noted Time PHQ-9 Depression Total Score: 7 04/18/20 23 10:20 AM EDT documented as of this encounter Care Teams Blending Machine Operator Relationship Specialty Start Date End Date Nolan Blevins MD [address] [place] [phone] PCP - General Family Medicine 06/13/18 Aveanna 04/24/25 documented as of this encounter
[2025-06-11 13:29] LABS: Hematocrit 32.1 % (37.0-47.0); Hemoglobin 10.8 g/dl (12.0-16.0); Mean Corpuscular HGB Conc 33.6 g/dl (31.0-35.0); Mean Corpuscular Hemoglobin 29.0 pg (27.0-33.0); Mean Corpuscular Volume 86.1 fL (80.0-98.0); NRBC Abs Auto 0.000 X10*3/uL (0.0-0.012); NRBC Pct Auto 0.0 /100WBC (0.0-0.2); Platelet Count 318 X10*3/uL (160-400); Red Blood Count 3.73 X10*6/uL (4.20-5.50); White Blood Count 6.9 X10*3/uL (4.8-10.8)
[2025-06-11 14:01] LABS: Vitamin B12 297 pg/mL (200-900)
[2025-06-11 14:04] LABS: Alanine Aminotransferase 11 U/L (0-31); Albumin Level 3.6 g/dL (3.5-5.0); Alkaline Phosphatase 228 U/L (39-117); Anion Gap 9 (12-20); Aspartate Amino Transferase 10 U/L (5-31); Blood Urea Nitrogen 25 mg/dL (9-16); Calcium 9.0 mg/dL (8.4-10.2); Carbon Dioxide 23 mmol/L (22-29); Chloride 105 mmol/L (96-108); Estimated Glomerular Filt Rate 32; Iron 29 mcg/dL (30-160); Percent Iron Saturation 15 % (15-50); Potassium 4.0 mmol/L (3.3-5.1); Sodium 133 mmol/L (135-145); Total Iron Binding Capacity 197 mcg/dL (228-428); Total Protein 7.3 g/dL (6.5-8.0); Unsaturated Iron Binding 168 ug/dL
[2025-06-11 14:18] LABS: Ferritin 151 ng/mL (10-250)
[2025-06-11 14:23] LABS: Microalbum/Creatinine Ratio Ur 140.1 ug/mg cr (<30)
[2025-06-12 22:18] LABS: Prot Elec - Albumin 3.6 g/dL (3.8-4.8); Prot Elec - Alpha1 0.3 g/dL (0.2-0.3); Prot Elec - Alpha2 0.7 g/dL (0.5-0.9); Prot Elec - Beta 1 0.4 g/dL (0.4-0.6); Prot Elec - Beta 2 0.5 g/dL (0.2-0.5); Prot Elec - Gamma 1.6 g/dL (0.8-1.7); Prot Elec - Total Protein 7.0 g/dL (6.1-8.1)
== END 2025-06-11 10:35 | disposition home or self-care (01) ==
LOC: HO.HHCL 10:34
PROVIDERS: Internal Medicine Hypertension Specialist; PCP Internal Medicine Geriatric Medicine; Visit Provider Internal Medicine Geriatric Medicine
DX: E11.42 Type 2 diabetes mellitus with diabetic polyneuropathy (principal); E11.69 Type 2 diabetes mellitus with other specified complication; E87.5 Hyperkalemia; N17.9 Acute kidney failure, unspecified; Z79.4 Long term (current) use of insulin
CPT/HCPCS: 36415; 80053; 82043; 82570; 82607; 82728; 83540; 84165; 85027